=== PATIENT | female | born 1965 | race Caucasian/White ===

== ENCOUNTER → 2017-02-10 13:40 | Outpatient (CLI) | payer MEDICARE, SELFPAY ==
--- NOTE | 2017-02-10 13:53 | MM_ITS ---
MM DIG MAMM DX UNILAT RT CAD COMPARISON: 01/22/2017 INDICATION: Follow-up abnormal mammogram ORDERING PHYSICIAN: Linh Doty PATIENT AGE: 51 years TECHNIQUE: Spot compression views, rolled views, and straight ML view FINDINGS: Average fibroglandular tissue. Previously noted opacity in the central aspect of the left breast did appear to compress out as fibroglandular tissue and was not identified on the ML view. There was a small area of asymmetric density in the medial and deep aspect of the right breast which was not reproducible on the rolled views and is felt to be due to overlying fibroglandular tissue. No malignant appearing mass or malignant appearing microcalcification IMPRESSION: Benign findings, no evidence of malignancy BI-RADS Category: 2 Benign Finding(s) RECOMMENDED FOLLOW-UP: 1YR - 1 YEAR FOLLOW-UP (A letter has been sent to the patient regarding results of the study.)
== END ==
PROVIDERS: Visit Provider Family Medicine
DX: R92.8 Other abnormal and inconclusive findings on diagnostic imaging of breast (principal)
CPT/HCPCS: 77065

== ENCOUNTER 2017-03-18 14:36 | Outpatient (RCR) | payer MEDICARE, SELFPAY | END 2017-03-18 14:37 | disposition home or self-care (01) | LOC: PT 14:36 | PROVIDERS: Visit Provider Family Medicine | DX: M54.5 Low back pain (principal); M25.562 Pain in left knee; M25.561 Pain in right knee | CPT/HCPCS: 97010; 97035 ==

== ENCOUNTER → 2017-03-26 13:45 | Outpatient (CLI) | payer MEDICARE, SELFPAY ==
--- NOTE | 2017-03-26 13:52 | XR_ITS ---
EXAM: XR lumbar spine min 4V HISTORY: ITS.REASON: LOW BACK PAIN , RADIATING DOWN LEFT LEG ORDERING PHYSICIAN: Linh Doty PATIENT AGE: 51 years COMPARISON: None FINDINGS: Mild thoracolumbar curvature convex right with mild degenerative disc disease L1-L2 and L5-S1 with mild facet hypertrophic changes at L4-5 and L5-S1. No fracture or dislocation. No lytic or blastic. SI joints have an unremarkable appearance. There is a distal abdominal aortic stent. IMPRESSION: Mild lumbar spondylosis with scoliosis and degenerative disc disease and facet arthritic change.
== END ==
PROVIDERS: PCP Family Medicine; Visit Provider Family Medicine
DX: M54.5 Low back pain (principal)
CPT/HCPCS: 72110

== ENCOUNTER → 2018-01-20 08:54 | Outpatient (CLI) | payer MEDICARE, SELFPAY ==
[2018-01-20 10:01] LABS: Alanine Aminotransferase 22 U/L (12-78); Albumin/Globulin Ratio 1.1 (1.1-1.8); Alkaline Phosphatase 140 U/L (46-116); Anion Gap 11.9 mEq/L (5-15); Aspartate Amino Transferase 15 U/L (15-37); Bilirubin,Total 0.3 mg/dL (0.2-1.0); Blood Urea Nitrogen 13 mg/dL (7-18); Calcium 9.8 mg/dL (8.5-10.1); Carbon Dioxide 32 mmol/L (21.0-32.0); Chloride 101 mmol/L (98-107); Chol/HDL Ratio 4.2 (1-3.5); Cholesterol 146 mg/dL (140-200); Creatinine,Serum 0.84 mg/dL (0.55-1.02); Estimated Glomerular Filt Rate 71 ml/min (>60); GFR (African American) 86 ML/MIN (>60); Globulin 3.6 gm/dl (1.3-3.2); Glucose 107 mg/dL (74-106); HDL Cholesterol 35 mg/dL (29-89); LDL Cholesterol 75 mg/dL (0-130); Potassium 4.9 mmoL/L (3.5-5.1); Sodium 140 mmol/L (136-145); Total Protein,Serum 7.6 gm/dL (6.4-8.2); Triglycerides 181 mg/dL (30-200); VLDL Cholesterol 36 mg/dL (0-40)
== END ==
PROVIDERS: Visit Provider Physician Assistant Medical
DX: E78.49 Other hyperlipidemia (principal); I10 Essential (primary) hypertension; T46.6X1A Poisoning by antihyperlipidemic and antiarteriosclerotic drugs, accidental (unintentional), initial encounter
CPT/HCPCS: 36415; 80053; 80061

== ENCOUNTER → 2018-02-01 09:18 | Outpatient (CLI) | payer MEDICARE, SELFPAY ==
--- NOTE | 2018-02-01 08:30 | MM_ITS ---
MM Dig screening mamm BI w/CAD CAD Screening COMPARISON: Digital mammograms with CAD 01/22/2017 and 11/20/2015 INDICATION: There is a history of breast cancer in patient's maternal great aunt. TECHNIQUE: Standard CC and MLO images were obtained. R2 CAD reviewed. FINDINGS: Mild scattered fibro glandular densities are seen in both breast on a background of fatty breast parenchyma. There is no suspicious lesion in either breast and there are no suspicious microcalcifications. Again noted is the metallic device likely cardiac pacemaker or defibrillator projecting over the axillary tail left breast. IMPRESSION: Stable exam no suspicious lesion seen recommend yearly follow-up BI-RADS Category: 2 Benign Finding(s) RECOMMENDED FOLLOW-UP: 1YR - 1 YEAR FOLLOW-UP (A letter has been sent to the patient regarding results of the study.)
== END ==
PROVIDERS: PCP Family Medicine; Visit Provider Family Medicine
DX: Z12.31 Encounter for screening mammogram for malignant neoplasm of breast (principal)
CPT/HCPCS: 77067

== ENCOUNTER → 2018-05-26 09:21 | Outpatient (CLI) | payer MEDICARE, SELFPAY ==
--- NOTE | 2018-05-26 09:31 | US_ITS ---
US thyroid HISTORY: Follow-up thyroid nodules ITS.REASON: THYROMEGLY ORDERING PHYSICIAN: Linh Doty PATIENT AGE: 52 years Comparison: 01/22/2017 FINDINGS: The right lobe is 4.4 x 1.7 x 1.3 cm. Left lobe is 4.3 x 1.7 x 1.4 cm. The isthmus is slightly thickened centrally and on the right at 5 mm. Multiple nodules are present on the right including isoechoic 5 mm nodule upper pole, 3 mm isoechoic nodule upper pole, 3 mm isoechoic nodule upper pole, 6 mm isoechoic nodule lower pole,, mixed 7mm nodule lower pole, 3 mm hypoechoic nodule lower pole. The mixed 7 mm nodule in the lower pole has developed since the previous exam On the left there is a 9 mm cyst in the upper pole and a mixed 5 mm nodule in the mid polar region unchanged. IMPRESSION: Thyroid gland upper limits of normal in size with bilateral nodules. A new 7 mm mixed nodules present in the lower pole on the right. Recommend 6 month follow-up to confirm stability
== END ==
PROVIDERS: PCP Family Medicine; Visit Provider Family Medicine
DX: E01.0 Iodine-deficiency related diffuse (endemic) goiter (principal)
CPT/HCPCS: 76536

== ENCOUNTER → 2018-06-09 20:09 | Outpatient (CLI) | payer MEDICARE, SELFPAY ==
[2018-06-09 21:49] LABS: Amphetamine/Metha Screen,Urine Negative ng/mL (<1000); Barbiturates Screen,Urine Negative ng/mL (<200); Benzodiazepines Screen,Urine Negative ng/mL (<200); Cannabinoid Screen,Urine Negative ng/mL (<50); Cocaine Screen,Urine Negative ng/mL (<300); Methadone Screen,Urine Negative ng/mL (<300); Opiate Screen,Urine Positive ng/mL (<300); Phencyclidine Screen,Urine Negative ng/mL (<25)
[2018-06-16 13:53] LABS: Gabapentin,Urine 206.8 ug/mL (.)
== END ==
PROVIDERS: Visit Provider Family Medicine
DX: M54.5 Low back pain (principal)
CPT/HCPCS: 80305; 80307

== ENCOUNTER → 2018-06-29 11:15 | Outpatient (POV) | payer MEDICARE, SELFPAY | PROVIDERS: Visit Provider Otolaryngology | DX: Z00.00 Encounter for general adult medical examination without abnormal findings (principal) ==

== ENCOUNTER → 2018-07-30 12:46 | Outpatient (CLI) | payer MEDICARE, SELFPAY ==
--- NOTE | 2018-07-30 12:51 | XR_ITS ---
XR knee LT 4V Ordering Physician: Linh Doty Patient Age: 53 years: Female HISTORY: ITS.REASON: KNEE PAIN . Technique: Weightbearing AP, lateral and Cardenas views were performed as well as oblique. Findings: . No acute finding. The joint spaces well-maintained. Medial and lateral compartment appear satisfactory. Bones well mineralized. No erosion nor. No osteochondral defect. No joint effusion patellofemoral relationships appear normal Impression: Left knee intact. . No significant appearing findings.
== END ==
PROVIDERS: PCP Family Medicine; Visit Provider Family Medicine
DX: M25.562 Pain in left knee (principal)
CPT/HCPCS: 73564

== ENCOUNTER 2018-09-17 15:00 | Outpatient (RCR) | payer MEDICARE, SELFPAY | END 2018-09-17 15:05 | disposition home or self-care (01) | LOC: PT 15:00 | PROVIDERS: PCP Family Medicine; Visit Provider Family Medicine | DX: M25.562 Pain in left knee (principal) | CPT/HCPCS: 97010; 97033; 97035; 97110; 97163 ==

== ENCOUNTER → 2018-10-15 12:50 | Outpatient (CLI) | payer MEDICARE, SELFPAY ==
--- NOTE | 2018-10-15 12:52 | CT_ITS ---
PROCEDURE: CT KNEE LT WO CON CLINICAL HISTORY: LT KNEE PAIN Left knee pain, claudication COMPARISON: from 07/30/2018 TECHNIQUE: Axial images obtained with sagittal and coronal reformats. All CT scans at the facility use one or more dose reduction, viz: automated exposure control, ma/kV adjustment per patient size (including targeted exams where dose is matched to indication, i.e. head), or iterative reconstruction technique. FINDINGS: Normal mineralization. No fracture or dislocation. No lytic or blastic change. There is slight decrease in the joint space medially suggesting mild osteoarthritic change. No large effusion evident. There is a faint calcific density posterior to the lateral femoral condyle. This is nonspecific and a question clinical significance. IMPRESSION: No acute finding. Minimal osteoarthritic changes medial compartment Dictated by: Ever Wright MD 10/16/2018 10:27 Electronically signed by Ever Wright MD in [place] 10/16/2018 10:27
--- NOTE | 2018-10-15 12:53 | CT_ITS ---
Procedure: CT ANGIO LE BI CLINICAL HISTORY: PVD/ PAD, LEG PAIN, CLAUDICATION Left leg pain, claudication COMPARISON: No exams were available for comparison TECHNIQUE: IV Contrast: 120 mL Optiray 350 Axial images obtained with sagittal and coronal reformats. All CT scans at the facility use one or more dose reduction, viz: automated exposure control, ma/kV adjustment per patient size (including targeted exams where dose is matched to indication, i.e. head), or iterative reconstruction technique. FINDINGS: Abdominal aorta: Mild atheromatous changes. There is a stent within the distal abdominal aorta. The stent is patent with only mild stenosis. The stent begins 2 cm below the level of the renal arteries and extends to the aortic bifurcation. Mild atheromatous changes are present within the distal aspect of the stent. There is an area of stenosis involving the ostium and proximal aspect of the right common iliac artery. This is greater than 50 percent estimated at approximately 70 percent and short segment. The superior mesenteric artery and celiac artery have an unremarkable appearance. The renal arteries also have an unremarkable appearance. There are 2 right renal arteries is and 1 left renal artery which bifurcates early. The external iliac arteries have an unremarkable appearance. Right lower extremity runoff: Surgical clips are present in the right inguinal region. Common femoral and superficial femoral artery has an unremarkable appearance as does the popliteal. Trifurcation vessels have an unremarkable appearance with 3 vessel runoff to the right lower extremity. Left common femoral and femoral arteries, popliteal, and runoff vessels are unremarkable with with three-vessel runoff to the left ankle. The IMPRESSION: 1. 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 2. Abdominal aortic stent present distally without significant stenosis 3. Unremarkable bilateral lower extremity runoff Dictated by: Ever Wright MD 10/16/2018 10:23 Electronically signed by Ever Wright MD in [place] 10/16/2018 10:23
== END ==
PROVIDERS: PCP Family Medicine; Visit Provider Family Medicine
DX: M25.562 Pain in left knee (principal); I70.213 Atherosclerosis of native arteries of extremities with intermittent claudication, bilateral legs; Z95.0 Presence of cardiac pacemaker
CPT/HCPCS: 73700; 73701; Q9967

== ENCOUNTER → 2019-02-03 10:41 | Outpatient (CLI) | payer MEDICARE, SELFPAY ==
--- NOTE | 2019-02-03 10:43 | MM_ITS ---
PROCEDURE: MM DIG SCREENING MAMM BI W/CAD Patient Age:53Y CLINICAL INDICATION: SCREENING 53-year-old postmenopausal female. No hormones, no new complaints. Family history. Maternal aunt with breast cancer COMPARISON: DIGMAMMS MAMMOGRAM SCREEN-SHANK CUTTER N/C from 01/06/2007 [facility] DIGITAL MAMM-SCREEN BILATERAL from 07/02/2012 [facility] DIG MAMM-SCREEN KAREL from 05/12/2014 [facility] DIG MAMM-DX UNI ADD VIEWS-LT from 05/30/2014 [facility] DIG MAMM-SCREEN KAREL from 11/20/2015 [facility] DIG MAMM-SCREEN KAREL W/CAD from 01/22/2017 DX[facility] MM Dig mamm DX unilat RT CAD from 02/10/2017 [facility] MM Dig screening mamm BI w/CAD from 02/01/2018 TECHNIQUE: Standard CC and MLO images were obtained. R2 CAD reviewed. FINDINGS: Mild residual fibroglandular elements; fairly low-density breast with stable architecture compared to previous studies. No new dominant nor suspicious mass. No suspicious calcifications. Right breast: No new findings Left breast. No new findings Scant asymmetry appears stable stable cc appearance since at least 2017 Again pacer device projected over the deep axillary left breast Bilateral follow-up 1 year recommended IMPRESSION: . Stable mammogram. No significant new findings. Bilateral follow-up 1 year. BI-RAD Category: 2 Benign Finding(s) FOLLOW-UP: 1YR 1 Year Follow-up (A letter has been sent to the patient regarding results of the study.) Dictated by: Joe Martinez MD 02/08/2019 09:24 Electronically signed by Joe Martinez MD in [place] 02/08/2019 09:24
== END ==
PROVIDERS: PCP Family Medicine; Visit Provider Family Medicine
DX: Z12.31 Encounter for screening mammogram for malignant neoplasm of breast (principal)
CPT/HCPCS: 77067

== ENCOUNTER → 2020-02-16 16:04 | Outpatient (CLI) | payer MEDICARE, SELFPAY ==
--- NOTE | 2020-02-16 16:12 | XR_ITS ---
PROCEDURE: XR THORACIC SPINE 3V CLINICAL INDICATION: MID AND LOWER BACK PAIN COMPARISON: No exams were available for comparison FINDINGS: No fracture or dislocation. No lytic or blastic change. There is normal mineralization. There are mild degenerative changes in the thoracic spine with minimal lower thoracic curvature convex left and mild multilevel thoracic spondylosis. Other findings:None. IMPRESSION: Mild degenerative changes, no acute finding Dictated by: Ever Wright MD 02/16/2020 16:37 Ever Wright MD in [place] 02/16/2020 16:37
--- NOTE | 2020-02-16 16:13 | XR_ITS ---
PROCEDURE: XR KUB CLINICAL INDICATION: ABD PAIN COMPARISON: CT ABDPELW/O CT ABD PELVIS W/O CONTRAST from 03/10/2014 FINDINGS: The bowel gas pattern is nonspecific. Nondistended gas-filled loops of small and large bowel are present. No evidence of intestinal obstruction, abnormal calcifications, or acute bony anomalies. There is a vascular stent overlying the lower aorta and the right iliac artery. Surgical clips are present in the right inguinal region. There is an RV pacemaker present IMPRESSION: No acute findings. Dictated by: Ever Wright MD 02/16/2020 16:35 Ever Wright MD in [place] 02/16/2020 16:35
== END ==
PROVIDERS: PCP Family Medicine; Visit Provider Family Medicine
DX: M54.6 Pain in thoracic spine (principal); M54.5 Low back pain; R10.9 Unspecified abdominal pain
CPT/HCPCS: 72072; 74018

== ENCOUNTER → 2020-02-17 15:12 | Outpatient (CLI) | payer MEDICARE, SELFPAY ==
[2020-02-17 15:24] LABS: Microscopic, Urine URINE MICROSCOPIC (MICROSCOPIC)
[2020-02-17 16:14] LABS: Appearance,Urine CLEAR (Clear); Bilirubin,Urine Negative (Negative); Blood, Urine Negative (Negative); Color,Urine YELLOW (Yellow); Glucose,Urine (UA) Negative (Negative); Ketones,Urine Negative (Negative); Leukocyte Esterase,Urine Negative (Negative); Nitrate,Urine Negative (Negative); Protein,Urine Negative (Negative); Urobilinogen,Urine 0.2 EU/dl (0.2)
[2020-02-17 16:27] LABS: Bacteria,Urine 1+ /lpf; Mucus,Urine 2+ /lpf
== END ==
PROVIDERS: Visit Provider Family Medicine
DX: R10.9 Unspecified abdominal pain (principal); M54.5 Low back pain
CPT/HCPCS: 81001; 87086

== ENCOUNTER → 2021-03-27 15:49 | Outpatient (CLI) | payer MEDICARE, SELFPAY ==
--- NOTE | 2021-03-27 15:57 | XR_ITS ---
FINAL REPORT CLINICAL HISTORY: OSTEOARTHRITIS OF BOTH KNEES, UNSPECIFIED TYPE FINDINGS: RIGHT KNEE Three views demonstrate no acute fracture or dislocation. The joint spaces appear normal. No joint effusion is identified. The visualized bony structures are well aligned. No soft tissue abnormality is seen. IMPRESSION: No acute process. Reviewed, Interpreted and Dictated by Saurabh Oliver III, MD Transcribed by Lola West Authenticated by Saurabh Oliver III, MD on 03/27/2021 04:54:[address] [facility]
--- NOTE | 2021-03-27 15:57 | XR_ITS ---
FINAL REPORT CLINICAL HISTORY: OSTEOARTHRITIS OF BOTH KNEES, UNSPECIFIED TYPE FINDINGS: LEFT KNEE Three views demonstrate no acute fracture or dislocation. The joint spaces appear normal. No joint effusion is identified. The visualized bony structures are well aligned. No soft tissue abnormality is seen. IMPRESSION: No acute process. Reviewed, Interpreted and Dictated by Saurabh Oliver III, MD Transcribed by Lola West Authenticated by Saurabh Oliver III, MD on 03/27/2021 04:54:31 PM [facility]
== END ==
PROVIDERS: PCP Family Medicine; Visit Provider Physical Medicine & Rehabilitation
DX: M17.0 Bilateral primary osteoarthritis of knee (principal)
CPT/HCPCS: 73562

== ENCOUNTER → 2021-12-06 17:03 | Outpatient (CLI) | payer MEDICARE, SELFPAY ==
--- NOTE | 2021-12-06 17:12 | XR_ITS ---
PROCEDURE INFORMATION: Exam: XR Right Shoulder Exam date and time: 12/06/2021 5:17 PM Age: 56 years old Clinical indication: Patient HX: Right shoulder pain, no known injury TECHNIQUE: Imaging protocol: Radiologic exam of the Right shoulder. Views: 2 or more views. COMPARISON: No relevant prior studies available. FINDINGS: Tubes, catheters and devices: Right subclavian AICD/cardioverter-defibrillator device noted. Bones/joints: Unremarkable. No acute fracture or dislocation. No significant arthritic deformities at the glenohumeral joint or acromioclavicular joint. There are no lytic skeletal lesions seen. No acute fractures are seen in the visualized right ribs. Lungs: No acute findings in the visualized right lung. Soft tissues: No radiopaque foreign bodies. No pathologic soft tissue calcification. IMPRESSION: 1. No acute findings. 2. Non emergency and chronic findings as above.
== END ==
PROVIDERS: PCP Family Medicine; Visit Provider Family Medicine
DX: M25.511 Pain in right shoulder (principal)
CPT/HCPCS: 73030

== ENCOUNTER 2023-05-29 17:40 | Inpatient (IN) | payer MEDICARE, SELFPAY ==
[2023-05-29] VITALS (27 sets, daily range): BP systolic 93–175; BP diastolic 70–99; PULSE 75–92; RESP 12–28; TEMP 34.8–37.1; O2SAT 90–100; BMI 32.0
--- NOTE | 2023-05-29 17:42 | XR_ITS ---
PROCEDURE INFORMATION: Exam: XR Chest Exam date and time: 05/29/2023 5:41 PM Age: 57 years old Clinical indication: Device placement; Ett placement (vent status); Additional info: Unresponsive. Et tube placement TECHNIQUE: Imaging protocol: Radiologic exam of the chest. Views: 1 view. COMPARISON: CR XR SHOULDER RT MIN 2V 12/06/2021 5:17 PM FINDINGS: Tubes, catheters and devices: There is an endotracheal tube in place, tip projects over the mid trachea. There is an enteric tube in place, tip projects below the diaphragm and off the level of the study. Right chest implanted cardiac device. Extensive apparatus is present over the chest wall which limits study. Lungs: No evidence of acute pulmonary disease or infiltrates Pleural spaces: Suspect small to moderate right pleural effusion. Heart/Mediastinum: There is mild cardiomegaly. Bones/joints: No evidence of acute osseous abnormalities within the visualized portions of the thoracic spine and ribs. Osseous structures appear appropriate for patient age. IMPRESSION: Suspect small moderate right pleural effusion. Support apparatus as above.
--- NOTE | 2023-05-29 17:45 | PC.NURSE ---
pt arrived via [facility]. mphilpot, t harry, a ever, g , s xochitl, l marcie, hemanth ramos at bedside pt arrived with oropharyngeal in place via em[facility]. 1748 etomadate given 40mg/20ml. pts IV infiltrated, so another 20mg/ml pulled and given to pt in other iv access site 174 succinylcholine given 150mg. 1753 pt intubated, 65 @ lip 1759 propofol drip started for sedation
--- NOTE | 2023-05-29 18:01 | PC.NURSE ---
radiology and lab at bedside.
--- NOTE | 2023-05-29 18:10 | CT_ITS ---
PROCEDURE INFORMATION: Exam: CT Thoracic Spine Without Contrast Exam date and time: 05/29/2023 8:22 PM Age: 57 years old Clinical indication: Injury or trauma; Additional info: Trauma, critical injury suspected TECHNIQUE: Imaging protocol: Computed tomography of the thoracic spine without contrast. Radiation optimization: All CT scans at this facility use at least one of these dose optimization techniques: automated exposure control; mA and/or kV adjustment per patient size (includes targeted exams where dose is matched to clinical indication); or iterative reconstruction. COMPARISON: CR XR THORACIC SPINE 3V 02/16/2020 4:14 PM FINDINGS: Bones/joints: There is right convexity the midthoracic spine. No anterior wedging deformity. No acute lucent fracture lines visualized. Mild spinal degenerative changes. Spinal cord: No severe central canal or neural foraminal stenosis demonstrated by CT. Soft tissues: Unremarkable. IMPRESSION: No acute thoracic spinal injury demonstrated by CT.
--- NOTE | 2023-05-29 18:10 | CT_ITS ---
PROCEDURE INFORMATION: Exam: CTA Chest With Contrast Exam date and time: 05/29/2023 8:32 PM Age: 57 years old Clinical indication: Injury or trauma; Additional info: Trauma, critical injury suspected TECHNIQUE: Imaging protocol: Computed tomographic angiography of the chest with contrast. Exam focused on the arteries. 3D rendering (Not supervised by radiologist): MIP and/or 3D reconstructed images were created by the technologist. Radiation optimization: All CT scans at this facility use at least one of these dose optimization techniques: automated exposure control; mA and/or kV adjustment per patient size (includes targeted exams where dose is matched to clinical indication); or iterative reconstruction. Contrast material: ISOVUE; Contrast volume: 100 ml; Contrast route: INTRAVENOUS (IV); COMPARISON: CR XR CHEST PORTABLE 05/29/2023 5:41 PM FINDINGS: Tubes, catheters and devices: Cardiac pacemaker. Enteric catheter extends into the stomach. ET tube is in the trachea above the terrence. Pulmonary arteries: No pulmonary embolism identified. Aorta: No thoracic aortic aneurysm identified. No aortic dissection. Lungs: Atelectasis is seen in the lower lobes bilaterally, much greater right. Pneumonitis is not excluded. Pleural spaces: No pneumothorax. There is a large right pleural effusion. Heart: Cardiomegaly. There is an anterior pericardial effusion measuring up to 13 mm. Coronary arterial calcifications are noted. Lymph nodes: Prominent mediastinal and hilar lymph nodes, nonspecific. AP window nodes measure to 19 mm in the short axis. Bones/joints: No acute fracture is identified. Soft tissues: Unremarkable. IMPRESSION: 1. No acute chest injury identified. 2. Large right pleural effusion. 3. Atelectasis in the lower lobes bilaterally, much greater on the right. Pneumonitis is not excluded. 4. Mediastinal and right hilar lymphadenopathy, nonspecific. 5. Cardiomegaly, with anterior pericardial. 6. No pulmonary embolism identified.
--- NOTE | 2023-05-29 18:10 | CT_ITS ---
PROCEDURE INFORMATION: Exam: CTA Neck With Contrast Exam date and time: 05/29/2023 8:27 PM Age: 57 years old Clinical indication: Injury or trauma; Additional info: Trauma, critical injury suspected TECHNIQUE: Imaging protocol: Computed tomographic angiography of the neck with contrast. Exam focused on the cervical segments of the vasculature. 3D rendering (Not supervised by radiologist): MIP and/or 3D reconstructed images were created by the technologist. Radiation optimization: All CT scans at this facility use at least one of these dose optimization techniques: automated exposure control; mA and/or kV adjustment per patient size (includes targeted exams where dose is matched to clinical indication); or iterative reconstruction. Contrast material: ISOVUE; Contrast volume: 100 ml; Contrast route: INTRAVENOUS (IV); COMPARISON: CT CERVICAL SPINE WO CON 05/29/2023 8:21 PM FINDINGS: Tubes, catheters and devices: Endotracheal tube tip 5 cm above the terrence. Orogastric tube extends off the lower edge of the scan in the esophagus. Right jugular and right subclavian lines in place without gross complication, extending off the lower edge of the scan in the SVC. Right common carotid artery: Normal. No stenosis. No dissection or occlusion. Right internal carotid artery: Mild tortuosity. No stenosis. No dissection or occlusion. Right external carotid artery: Normal. No stenosis. No dissection or occlusion. Left common carotid artery: Normal. No stenosis. No dissection or occlusion. Left internal carotid artery: Mild-moderate tortuosity. No stenosis. No dissection or occlusion. Left external carotid artery: Normal. No stenosis. No dissection or occlusion. Right vertebral artery: Mild V2 segment tortuosity. No stenosis. No dissection or occlusion. Left vertebral artery: Left vertebral artery is mildly dominant. No stenosis. No dissection or occlusion. Brachiocephalic artery: The brachiocephalic artery demonstrates mild calcific plaque without stenosis. Right subclavian artery: The right subclavian artery demonstrates mild calcific plaque without stenosis. Left subclavian artery: The left subclavian artery demonstrates mild calcific plaque without stenosis. Aorta: The visualized aortic arch demonstrates mild ectasia and calcific plaque without evidence of dissection or gross aneurysm. Pulmonary arteries: Mild dilatation of the central pulmonary arteries suggesting pulmonary arterial hypertension. Thyroid: The thyroid gland is unremarkable. Soft tissues: No significant soft tissue swelling or hematoma. Bones/joints: No acute osseous abnormalities are identified. Lungs: Mild centrilobular emphysematous changes in the upper lung isaacs. Bilateral bronchial wall thickening suggesting an element of bronchitis or bronchial edema. Pleural spaces: Moderate right and small left dependent layering simple pleural effusions. IMPRESSION: 1. No evidence of arterial occlusion, significant stenosis, dissection, or aneurysm/pseudoaneurysm. No acute vascular injuries are evident. 2. Moderate right and small left pleural effusions. 3. Additional nonemergent findings detailed above. REFERENCES: NASCET CRITERIA. The degree of stenosis in the cervical segment of the internal carotid artery is based on NASCET criteria. Normal is no stenosis. Mild is less than 50% stenosis. Moderate is 50-69% stenosis. Severe is 70% to 99% stenosis. Total occlusion is no detectable patent lumen.
--- NOTE | 2023-05-29 18:10 | CT_ITS ---
PROCEDURE INFORMATION: Exam: CTA Head With Contrast, Arteriography Exam date and time: 05/29/2023 8:27 PM Age: 57 years old Clinical indication: Injury or trauma; Additional info: Trauma, critical injury suspected TECHNIQUE: Imaging protocol: Computed tomographic angiography of the head with contrast. Exam focused on the arteries. 3D rendering (Not supervised by radiologist): MIP and/or 3D reconstructed images were created by the technologist. Radiation optimization: All CT scans at this facility use at least one of these dose optimization techniques: automated exposure control; mA and/or kV adjustment per patient size (includes targeted exams where dose is matched to clinical indication); or iterative reconstruction. Contrast material: ISOVUE; Contrast volume: 100 ml; Contrast route: INTRAVENOUS (IV); COMPARISON: CT HEAD/BRAIN WO CON 05/29/2023 8:11 PM FINDINGS: ANTERIOR CIRCULATION: Right internal carotid artery: The right ICA petrous segment is unremarkable. Right ICA cavernous segment is unremarkable. The right ICA supraclinoid segment is unremarkable. Right middle cerebral artery: Unremarkable. No occlusion or significant stenosis. No aneurysm. Right anterior cerebral artery: Unremarkable. No occlusion or significant stenosis. No aneurysm. The anterior communicating artery is unremarkable. Left internal carotid artery: The left ICA petrous segment is unremarkable. Left ICA cavernous segment is unremarkable. The left ICA supraclinoid segment is unremarkable. Left middle cerebral artery: Unremarkable. No occlusion or significant stenosis. No aneurysm. Left anterior cerebral artery: Unremarkable. No occlusion or significant stenosis. No aneurysm. POSTERIOR CIRCULATION: Right vertebral artery: Unremarkable. No occlusion or significant stenosis. No aneurysm. Left vertebral artery: Unremarkable. No occlusion or significant stenosis. No aneurysm. Basilar artery: Unremarkable. No occlusion or significant stenosis. No aneurysm. Right posterior cerebral artery: Normal variant persistent origin with hypoplastic right P1 segment. No occlusion or significant stenosis. No aneurysm. Left posterior cerebral artery: Small to moderate sized left posterior communicating artery present. No occlusion or significant stenosis. No aneurysm. Superior sagittal sinus: The dural venous sinuses and major cortical veins enhance appropriately without evidence of thrombosis. Brain: No enhancing brain lesions or vascular malformations are identified. Cerebral ventricles: Mild compensatory ventriculomegaly secondary to central atrophy. Bones/joints: Unremarkable. No acute fracture. Soft tissues: Incidental iatrogenic intravenous air in the rightward face felt to be related to venous access. IMPRESSION: 1. No evidence of large vessel occlusion or significant stenosis. No evidence of arterial dissection or aneurysm/pseudoaneurysm. No acute vascular injuries. 2. No acute intracranial process is evident.
--- NOTE | 2023-05-29 18:10 | CT_ITS ---
PROCEDURE INFORMATION: Exam: CT Lumbar Spine Without Contrast Exam date and time: 05/29/2023 8:25 PM Age: 57 years old Clinical indication: Other: Unresponsive; Additional info: Trauma, critical injury suspected TECHNIQUE: Imaging protocol: Computed tomography of the lumbar spine without contrast. Radiation optimization: All CT scans at this facility use at least one of these dose optimization techniques: automated exposure control; mA and/or kV adjustment per patient size (includes targeted exams where dose is matched to clinical indication); or iterative reconstruction. COMPARISON: CR [id number] XR lumbar spine min 4V 03/26/2017 2:06 PM FINDINGS: Bones/joints: No anterior wedging deformity. No acute lucent fracture lines visualized. There is left convexity of the lower lumbar spine. 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 Correlate with the anatomic location of pain. Lower lumbar facet arthropathy. Spinal cord: No severe central canal or neural foraminal stenosis demonstrated by CT. Soft tissues: Unremarkable. 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 Correlate with the anatomic location of pain.
--- NOTE | 2023-05-29 18:10 | CT_ITS ---
PROCEDURE INFORMATION: Exam: CT Head Without Contrast Exam date and time: 05/29/2023 8:11 PM Age: 57 years old Clinical indication: Other: Non responsive; Additional info: Trauma, critical injury suspected TECHNIQUE: Imaging protocol: Computed tomography of the head without contrast. Radiation optimization: All CT scans at this facility use at least one of these dose optimization techniques: automated exposure control; mA and/or kV adjustment per patient size (includes targeted exams where dose is matched to clinical indication); or iterative reconstruction. COMPARISON: No relevant prior studies available. FINDINGS: Brain: Mild generalized cerebral/cerebellar atrophy. Mild bilateral white matter hypodensities which are nonspecific but most commonly associated with chronic microvascular ischemia in this age group. The IACs are grossly normal. No extra-axial fluid collections. No evidence of acute intracranial hemorrhage. Cerebral/cerebellar corona-white matter differentiation is well maintained. No CT evidence of large territory acute or subacute intracranial ischemia/infarct. No intracranial mass lesions. No midline shift or herniation. Cerebral ventricles: Slight compensatory ventriculomegaly secondary to central atrophy. Pituitary gland and sella: Partially empty sella configuration incidentally noted. Paranasal sinuses: Visualized paranasal sinuses are clear. Mastoid air cells: Visualized mastoid air cells are clear. Orbital cavities: No acute intraorbital findings. Bones/joints: The calvarium and visualized facial bones are intact. Soft tissues: The scalp and visualized soft tissues demonstrate no acute abnormality. Incidental iatrogenic intravenous air in the rightward face and salon leader space/infratemporal fossa, likely related to venous access. Vasculature: No asymmetric vascular hyperdensities suggestive of thrombosis are identified. Other findings: Exam limited by unconventional head positioning/rotation and unconventional reconstruction planes. IMPRESSION: 1. No acute intracranial process. No intracranial hemorrhage or mass effect. 2. Atrophy and microvascular changes consistent with age. 3. Technically limited exam.
--- NOTE | 2023-05-29 18:10 | CT_ITS ---
PROCEDURE INFORMATION: Exam: CTA Abdomen and Pelvis With Contrast Exam date and time: 05/29/2023 8:32 PM Age: 57 years old Clinical indication: Injury or trauma; Additional info: Trauma, critical injury suspected TECHNIQUE: Imaging protocol: Computed tomographic angiography of the abdomen and pelvis with contrast. Exam focused on the arteries. 3D rendering (Not supervised by radiologist): MIP and/or 3D reconstructed images were created by the technologist. Radiation optimization: All CT scans at this facility use at least one of these dose optimization techniques: automated exposure control; mA and/or kV adjustment per patient size (includes targeted exams where dose is matched to clinical indication); or iterative reconstruction. Contrast material: ISOUVE; Contrast volume: 100 ml; Contrast route: INTRAVENOUS (IV); COMPARISON: CR XR KUB 05/29/2023 5:56 PM FINDINGS: Tubes, catheters and devices: Enteric catheter is in the stomach. Aorta: There is no evidence of an abdominal aortic aneurysm. Distal aortic stent is patent. Celiac trunk and mesenteric arteries: Celiac trunk is patent. SMA is patent. Renal arteries: Renal arteries are patent bilaterally. Right iliac arteries: Right common iliac stent is occluded. Right internal and external iliac arteries fill via collateral flow. Left iliac arteries: No occlusion or significant stenosis. Other arteries: Atherosclerotic vascular disease is noted. Liver: Hepatomegaly. Lobular contour of the liver suggests cirrhosis. There are no focal liver lesions present. Gallbladder and bile ducts: The gallbladder is normal. Pancreas: The pancreas is normal. Spleen: Calcified granulomata are seen in the spleen. No splenomegaly. Adrenal glands: No adrenal mass identified. Kidneys and ureters: Simple appearing renal cortical cysts bilaterally. Stomach and bowel: The stomach is normal. No bowel obstruction. Appendix: No evidence of appendicitis. Intraperitoneal space: No free fluid. Moderate ascites, low-density. Lymph nodes: Prominent retroperitoneal lymph nodes, measuring up to 17 mm, are nonspecific. Urinary bladder: Weiss catheter in the bladder. The bladder is nondistended. Small amount of air in the bladder is likely due to instrumentation. Reproductive: The uterus is normal. Bones/joints: Degenerative changes. Soft tissues: Unremarkable. IMPRESSION: 1. No abdominal aortic aneurysm or dissection. Distal aortic stent is patent. 2. Right common iliac stent is occluded. Right internal and external iliac arteries fill via collateral flow. 3. No acute fracture or traumatic visceral injury identified in the abdomen or pelvis. 4. Hepatomegaly, with lobular contour of the liver suggesting cirrhosis. 5. Moderate ascites. 6. Prominent retroperitoneal lymph nodes, nonspecific.
--- NOTE | 2023-05-29 18:10 | CT_ITS ---
PROCEDURE INFORMATION: Exam: CT Cervical Spine Without Contrast Exam date and time: 05/29/2023 8:21 PM Age: 57 years old Clinical indication: Injury or trauma; Additional info: Trauma, critical injury suspected TECHNIQUE: Imaging protocol: Computed tomography of the cervical spine without contrast. Radiation optimization: All CT scans at this facility use at least one of these dose optimization techniques: automated exposure control; mA and/or kV adjustment per patient size (includes targeted exams where dose is matched to clinical indication); or iterative reconstruction. COMPARISON: CT HEAD/BRAIN WO CON 05/29/2023 8:11 PM FINDINGS: Tubes, catheters and devices: Endotracheal tube and orogastric tube in place. Right jugular and subclavian lines in place. Bones/joints: Craniocervical alignment is normal for the rotated positioning of the head. The occipital condyles are intact. The odontoid is intact. Mild osteoarthritic sclerosis and spurring at the atlantodens interval. No jumped or perched facets. Moderate left-sided osteoarthritic facet hypertrophy C4-C5. No fractures. Slight 2 mm degenerative anterolisthesis C4-C5. No blastic or lytic lesions. Moderate disc space narrowing and marginal spurring C5-C6 and C6-C7. Mild posterior marginal spurring C3-C4 and C2-C3. 3 mm posterior spondylotic protrusion C6-C7. Mild canal stenosis C6-C7. There is right foraminal stenosis which is moderate at C6-C7. There is left foraminal stenosis which is moderate-severe at C3-C4. Pleural spaces: Moderate right and small left dependent layering pleural effusions again noted. Thyroid: The visualized thyroid gland is unremarkable. Vasculature: Incidental iatrogenic venous air in the neck and rightward face related to venous access. Soft tissues: Paraspinous soft tissues are unremarkable without significant soft tissue swelling or soft tissue hematoma. Other findings: Exam limited by positioning/rotation. IMPRESSION: 1. No evidence of fracture or acute traumatic subluxation. 2. 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 3. Technically limited exam.
--- NOTE | 2023-05-29 18:12 | PC.NURSE ---
pt placed on bear hugger at this time.
--- NOTE | 2023-05-29 18:13 | XR_ITS ---
PROCEDURE INFORMATION: Exam: XR Abdomen Exam date and time: 05/29/2023 5:56 PM Age: 57 years old Clinical indication: Device placement; Gi device; Nasogastric tube; Additional info: Unresponsive. Post intubation TECHNIQUE: Imaging protocol: Radiologic exam of the abdomen. Views: Frontal supine view of the abdomen. 1 View. COMPARISON: CR XR KUB 02/16/2020 4:14 PM FINDINGS: Tubes, catheters and devices: Enteric tube in place, tip and side port project over the stomach. Heart/Mediastinum: Visualized portions of the heart, lungs, pleural spaces, and osseous structures are unchanged. Gastrointestinal tract: Stable bowel-gas pattern. Bones/joints: See Heart/Mediastinum finding. IMPRESSION: Radiographically appropriate position of enteric tube.
--- NOTE | 2023-05-29 18:21 | PC.NURSE ---
pt placed on vent per RT, current settings [id number], TV-420, R-18, Peep-5.
[2023-05-29 18:28] LABS: Microscopic, Urine URINE MICROSCOPIC (MICROSCOPIC)
--- NOTE | 2023-05-29 18:29 | PC.NURSE ---
[facility] contacted for medical records.
[2023-05-29] MEDS: HYDROCORTISONE SOD SUCCINATE 100MG VIAL 100 MG IV (18:32)
[2023-05-29] MEDS: FUROSEMIDE 40MG/4ML VIAL 80 MG IV (18:32)
[2023-05-29 18:37] LABS: Basophils % 0.2 % (0.1-2.0); Eosinophils % 0.1 % (0.1-12.0); Hematocrit 33.3 % (37.0-47.0); Hemoglobin 9.2 g/dL (12.2-16.2); Lymphocytes # 0.7 K/mm3 (0.7-4.5); Mean Corpuscular HGB Conc 27.7 g/dL (31.8-35.4); Mean Corpuscular Hemoglobin 29.9 pg (27.0-31.2); Mean Platelet Volume 12.2 fl (7.4-10.4); Monocytes # 0.2 K/mm3 (0.1-1.0); Monocytes % 2.9 % (1.7-9.3); Neutrophils # 4.2 K/mm3 (1.8-7.8); Neutrophils % 82.7 % (37.0-80.0); Platelet Count 57 K/mm3 (142-424); Red Blood Count 3.08 M/mm3 (4.20-5.40); Red Cell Distribution Width 19.5 % (11.5-17.5); White Blood Count 5.1 K/mm3 (4.8-10.8)
--- NOTE | 2023-05-29 18:40 | PC.NURSE ---
fely attempted to get two set of cultures, he was unsuccesful with second attempt. fely going to send someone else from lab to attempt blood cultures.
--- NOTE | 2023-05-29 18:42 | PC.NURSE ---
lab at attempting to draw blood for culture
[2023-05-29 18:43] LABS: Blood, Urine Negative (Negative); Glucose,Urine (UA) TRACE (Negative); Ketones,Urine 1+ (Negative); Leukocyte Esterase,Urine Negative (Negative); Nitrate,Urine POSITIVE (Negative); Protein,Urine 3+ (Negative); Specific Gravity, Urine >= 1.030 (1.005-1.030)
[2023-05-29] MEDS: ETOMIDATE 40MG/20ML VIAL 60 MG IV (18:47)
[2023-05-29 18:48] LABS: Bilirubin,Urine 3+ (Negative)
[2023-05-29] MEDS: propofoL 100 ML 5.40000000000000036 MG IV (18:48)
[2023-05-29] MEDS: SUCCINYLCHOLINE 20MG/ML 10 ML MDV 150 MG IV (18:48)
[2023-05-29 18:49] LABS: Appearance,Urine Slightly Cloudy (Clear); Color,Urine Amber (Yellow)
[2023-05-29] MEDS: IPRATROPIUM/ALBUTEROL 3 ML NEB 9 ML IH (18:55)
[2023-05-29 19:01] LABS: Bacteria,Urine 2+ /lpf; Squamous Epithelial Cell,Urine Occasional #/hpf (0-5); WBC,Urine Occasional #/hpf (0-3)
[2023-05-29 19:03] LABS: Chloride 106 mmol/L (98-107); Sodium 127 mmol/L (136-145)
[2023-05-29 19:05] LABS: Aspartate Amino Transferase 11 U/L (14-36); Blood Urea Nitrogen 8 mg/dl (7-17); Creatinine Clearance Estimated 436 mL/min (50-200); Estimated Glomerular Filt Rate 365 ml/min (>60); GFR (African American) 441 ML/MIN (>60)
[2023-05-29] MEDS: DEXTROSE 50% 50ML SYRINGE (CRASH CART) 50 ML IVP (19:05)
--- NOTE | 2023-05-29 19:05 | PC.NURSE ---
Family reports that patient is shaking upon assessment of patient she has some persistent, jerking like motions, with roving eyes, eyes remain reactive to light. Concern for seizure activity. Provider at bedside, orders received for 4mg ativan.
[2023-05-29 19:06] LABS: Alkaline Phosphatase 21 U/L (38-126); Bilirubin,Total 0.2 mg/dl (0.2-1.3); Calcium 5.7 mg/dl (8.4-10.2)
[2023-05-29 19:15] LABS: NT Pro Brain Natriuretic Pep. 2250 pg/mL (0-125)
--- NOTE | 2023-05-29 19:15 | PC.NURSE ---
Blood pressures systolics in 90s and 80s last two cycles, spoke with provider, plans to start norepinepherine. On reassessment SBP 119, will hold start of norepinephrine and continue to cycle blood pressures Q10 at this time.
[2023-05-29 19:17] LABS: Alanine Aminotransferase < 4 U/L (12-78); Albumin Level < 1.0 g/dl (3.5-5.0); Total Protein,Serum < 2.0 g/dl (6.3-8.2)
[2023-05-29] MEDS: LORazepam 2MG/ML VIAL 4 MG IV (19:18)
[2023-05-29 19:21] LABS: Carbon Dioxide 7 mmol/L (22.0-30.0); Glucose 22 mg/dl (74-100)
[2023-05-29 19:22] LABS: Lactic Acid 20.8 mmol/L (0.7-2.1); Troponin I < 0.01 ng/ml (0.00-0.034)
--- NOTE | 2023-05-29 19:53 | ED_ITS ---
Discharge Plan Disposition Chief Complaint: Shortness of Breath/Dyspnea Prescriptions Prescriptions: No Action carvedilol 6.25 mg tablet 6.25 mg PO DAILY 30 Days Qty: 60 Patient Comments: celecoxib 100 mg capsule 100 mg PO DAILY 30 Days Qty: 60 Patient Comments: lisinopril 10 mg tablet 10 mg PO ONCE atorvastatin 40 mg tablet 40 mg PO DAILY 30 Days Qty: 30 Patient Comments: lisinopril 5 mg tablet 5 mg PO ONCE gabapentin 100 mg capsule 100 mg PO QHS Discharge ED Provider: Dalton [facility] HPI General Chief complaint: Shortness of Breath/Dyspnea Stated complaint: CHF Time Seen by Provider: 05/29/23 18:01 Mode of Arrival: EMS Source of Information: EMS Limitations: Altered Mental Status Description of Symptoms (Recalled from ER Triage Doc. by RN): see above History of Present Illness HPI narrative: 57-year-old female history of reported hypertension, hyperlipidemia, CHF with AICD in place currently on Eliquis, diabetes presenting with altered mental status. Little is known about patient other than report from EMS. Patient was reportedly found down, minimally responsive. EMS was called. Patient hypoxemic in the 70s when EMS arrived. Placed on BiPAP, saturations improved to the 90s. Patient brought immediately to the emergency department. Patient acutely ill on arrival, no further information given. Please note that above description of symptoms, in this electronic medical record under categorization of recalled from ER triage doctor by RN are reflective of an initial nursing assessment, however, is not reflective of my full history and physical exam that was personally taken and clarified. Consequentially, this preceding description of symptoms, which may include the patient's categorized chief complaint in the EMR, do not reflect my personal clinical impression, and the ultimate description of history of present illness and patient stated complaints should be deferred to this section of the note. Unless stated otherwise or congruent with this section of the note, additional signs, symptoms, or incongruence should be interpreted as inaccurate with my clinical impression. Related Data Home Medications Medication Instructions Recorded Confirmed atorvastatin 40 mg tablet 40 mg PO DAILY Cholesterol 30 days 04/06/17 01/21/18 ##30 carvedilol 6.25 mg tablet 6.25 mg PO DAILY blood pressure 30 04/06/17 01/21/18 days ##60 celecoxib 100 mg capsule 100 mg PO DAILY Pain 30 days ##60 04/06/17 01/21/18 gabapentin 100 mg capsule 100 mg PO QHS Pain 04/06/17 01/21/18 lisinopril 10 mg tablet 10 mg PO ONCE blood pressure 04/06/17 01/21/18 lisinopril 5 mg tablet 5 mg PO ONCE blood pressure 04/06/17 01/21/18 Allergies Allergy/AdvReac Type Severity Reaction Status Date / Time No Known Allergies Allergy Verified 01/21/18 14:48 [facility] Disclaimer: The information contained in this section may have been updated after the patient was seen, as this information can be updated by other users. Social History Smoking Status: Unknown if ever smoked alcohol intake: never substance use type: denies use current occupational status: disabled Travel in the last 8 weeks: None caffeine: No ROS Obtained: Yes unobtainable due to mental status and Yes unobtainable due to endotracheal tube Physical Exam General General appearance: obtunded, obese and other (Cyanotic, unresponsive, BiPAP mask in place) Head Head exam: atraumatic and normocephalic Eye Eye exam: Present PERRL (Pupils 4 mm and reactive bilaterally. Roving eye movements right to left); Absent jaundice or conjunctival injection ENT ENT exam: Present mucous membranes dry and other (Mucus in oropharynx on laryngoscopy) Neck Neck exam: Present trachea midline and other (JVD present) Chest Chest inspection: Present symmetric chest wall rise (With BiPAP inspirations) Respiratory Respiratory exam: Present wheezes (Diffuse and bilateral. Minimal respiratory effort other than BiPAP backup rate) Cardiovascular Cardiovascular exam: Present regular rate and normal rhythm Abdominal Exam Abdominal exam: Present soft and distention Extremities Exam Extremities exam: Present edema (Bilateral lower extremity edema, left greater than right. Punctate lesion overlying left knee.) Neurological Exam Neurological exam: Present other (GCS 3 without any type of sedation) Skin Skin exam: Present dry, cyanosis and mottled; Absent warm (Cool, dry) Medical Decision Making Medical Records Medical records reviewed: Yes I reviewed the patient's medical records. Eran Inquiry Pt receiving controlled substance: No Eran was queried for this patient: No Vital Signs: 05/29/23 17:40 05/29/23 18:00 05/29/23 18:36 Temperature 94.7 F L 97.0 F L Temperature Source Rectal Core Pulse Rate 81 81 Pulse Rate [Right Radial] 92 H Respiratory Rate 28 H 18 18 Blood Pressure 102/77 L 114/86 Blood Pressure [Right Arm] 116/78 Blood Pressure Mean Blood Pressure Mean [Right Arm] 90 Blood Pressure Source Automatic Cuff Automatic Cuff Blood Pressure Source [Right Arm] Automatic Cuff Blood Pressure Position Supine Sitting Blood Pressure Position [Right Arm] Supine 02 Sat by Pulse Oximetry 90 L 95 100 Oxygen Delivery Method CPAP Ambu-Bag Mechanical Ventilation 05/29/23 18:56 05/29/23 18:56 05/29/23 18:56 Temperature Temperature Source Pulse Rate 79 79 Pulse Rate [Right Radial] Respiratory Rate 18 Blood Pressure Blood Pressure [Right Arm] Blood Pressure Mean Blood Pressure Mean [Right Arm] Blood Pressure Source Blood Pressure Source [Right Arm] Blood Pressure Position Blood Pressure Position [Right Arm] 02 Sat by Pulse Oximetry 100 Oxygen Delivery Method 05/29/23 19:00 05/29/23 19:15 05/29/23 19:16 Temperature 98.1 F 98.2 F 98.2 F Temperature Source Pulse Rate 80 81 80 Pulse Rate [Right Radial] Respiratory Rate 16 12 16 Blood Pressure 133/81 99/80 L 100/77 L Blood Pressure [Right Arm] Blood Pressure Mean Blood Pressure Mean [Right Arm] Blood Pressure Source Blood Pressure Source [Right Arm] Blood Pressure Position Blood Pressure Position [Right Arm] 02 Sat by Pulse Oximetry 100 96 99 Oxygen Delivery Method 05/29/23 19:17 05/29/23 19:18 05/29/23 19:20 Temperature 98.2 F 98.4 F 98.4 F Temperature Source Pulse Rate 80 79 Pulse Rate [Right Radial] Respiratory Rate 17 19 21 Blood Pressure 93/70 L 102/85 L 118/97 H Blood Pressure [Right Arm] Blood Pressure Mean Blood Pressure Mean [Right Arm] Blood Pressure Source Blood Pressure Source [Right Arm] Blood Pressure Position Blood Pressure Position [Right Arm] 02 Sat by Pulse Oximetry 100 100 Oxygen Delivery Method 05/29/23 19:40 05/29/23 19:51 05/29/23 20:00 Temperature 98.6 F 98.6 F 98.6 F Temperature Source Pulse Rate 81 86 84 Pulse Rate [Right Radial] Respiratory Rate 19 18 20 Blood Pressure 128/95 H 166/97 H 175/99 H Blood Pressure [Right Arm] Blood Pressure Mean Blood Pressure Mean [Right Arm] Blood Pressure Source Blood Pressure Source [Right Arm] Blood Pressure Position Blood Pressure Position [Right Arm] 02 Sat by Pulse Oximetry 100 100 100 Oxygen Delivery Method 05/29/23 20:04 05/29/23 20:43 05/29/23 20:50 Temperature 98.8 F 98.8 F 98.8 F Temperature Source Pulse Rate 84 87 85 Pulse Rate [Right Radial] Respiratory Rate 16 15 Blood Pressure 159/94 H 142/79 H 157/84 H Blood Pressure [Right Arm] Blood Pressure Mean Blood Pressure Mean [Right Arm] Blood Pressure Source Blood Pressure Source [Right Arm] Blood Pressure Position Blood Pressure Position [Right Arm] 02 Sat by Pulse Oximetry 100 98 95 Oxygen Delivery Method 05/29/23 21:00 05/29/23 21:10 05/29/23 21:20 Temperature 98.8 F Temperature Source Pulse Rate 82 Pulse Rate [Right Radial] Respiratory Rate 18 18 Blood Pressure 140/83 143/80 H Blood Pressure [Right Arm] Blood Pressure Mean 100 Blood Pressure Mean [Right Arm] Blood Pressure Source Blood Pressure Source [Right Arm] Blood Pressure Position Blood Pressure Position [Right Arm] 02 Sat by Pulse Oximetry 98 96 Oxygen Delivery Method Lab Data Lab Results 05/29/23 17:10: WBC 5.1, RBC 3.08 L, Hgb 9.2 L, Hct 33.3 L, MCV 108.0 H, MCH 29.9, MCHC 27.7 L, RDW 19.5 H, Plt Count 57 L, MPV 12.2 H, Neut % (Auto) 82.7 H, Lymph % (Auto) 14.0, [place] % (Auto) 2.9, Eos % (Auto) 0.1, Baso % (Auto) 0.2, Neut # (Auto) 4.2, Lymph # (Auto) 0.7, [place] # (Auto) 0.2, Eos # (Auto) 0.0, Baso # (Auto) 0.0, Sodium 127 L, Potassium 4.0, Chloride 106, Carbon Dioxide 7 L*, A nion Gap 18.0 H, BUN 8, Creatinine 0.20 L, Estimated Creat Clear 436 H, Estimated GFR 365, Est GFR ( Amer) 441, Glucose 22 L*, Lactate 20.8 H, C alcium 5.7 L, Total Bilirubin 0.2, AST 11 L, ALT < 4 L, Alkaline Phosphatase 21 L, Troponin I < 0.01, NT-Pro-B Natriuret Pep 2250 H, Total Protein < 2.0 L, A lbumin < 1.0 L, Globulin 1.0 L, Albumin/Globulin Ratio 1.0 L 05/29/23 18:20: Urine Color Patti, Urine Appearance Slightly cloudy, Urine pH 5.0, Ur Specific [place] >= 1.030, Urine Protein 3+, Urine Glucose (UA) Trace, Urine Ketones 1+, Urine Blood Negative, Urine Nitrate Positive, Urine Bilirubin 3+ A, Urine Urobilinogen 4.0, Ur Leukocyte Esterase Negative, Urine RBC None, Urine WBC Occasional, Ur Squamous Epith Cells Occasional, Urine Bacteria 2+ 05/29/23 19:30: VBG pH 7.07 L, VBG pCO2 23.8 L, VBG pO2 80.9 H, VBG HCO3 6.7 L, VBG Total CO2 7.4 L, VBG O2 Saturation 90.4 H, VBG Base Excess -23.5 L, VBG Lactic Acid 18.5 H 05/29/23 19:55: WBC 10.0 D, RBC 4.96 D, Hgb 16.1 D, Hct 50.9 H, MCV 102.6 H, MCH 32.5 H, MCHC 31.6 L, RDW 19.0 H, Plt Count 82 L D, MPV 10.4, Neut % (Auto) 81.0 H, Lymph % (Auto) 7.4 L, [place] % (Auto) 11.1 H, Eos % (Auto) 0.1, Baso % (Auto) 0.3, Neut # (Auto) 8.1 H, Lymph # (Auto) 0.7, [place] # (Auto) 1.1 H, Eos # (Auto) 0.0, Baso # (Auto) 0.0, PT 20.6 H, INR 2.00 H, APTT 32.7 H, Fibrinogen 158 L, Sodium 135 L, Potassium 4.2, Chloride 100, Carbon Dioxide 28, Anion Gap 11.2, BUN 43 H D, Creatinine 1.90 H D, Estimated Creat Clear 46, Estimated GFR 27 L, Est GFR ( Amer) 33 L D, Glucose 192 H D, Lactate 3.6 H, Calcium 9.1, Total Bilirubin 3.4 H, AST 54 H D, ALT 28 D, Alkaline Phosphatase 124, Lactate Dehydrogenase 429, Troponin I 0.16 H, NT-Pro-B Natriuret Pep 29108 H, T otal Protein 5.2 L D, Albumin 2.8 L D, Globulin 2.4, Albumin/Globulin Ratio 1.2 05/29/23 20:00: Direct Antiglob Test Negative 05/29/23 21:03: Random Glucose 160 H 05/29/23 19:55 05/29/23 19:55 Orders (Tests/Meds): ED MEDICATIONS Generic Name Dose Route Start Last Admin Trade Name Freq PRN Reason Stop Dose Admin Enoxaparin Sodium 40 mg 05/29/23 21:30 Enoxaparin 40mg/0.4ml Syringe SQ 05/29/23 21:31 ONCE ONE Propofol 100 mls @ 2.7 mls/hr 05/29/23 18:04 05/29/23 20:02 Diprivan 10mg/Ml 100ml Bottle IV 06/28/23 18:03 15 mcg/kg/min .Q24H KIESHA 8.1 mls/hr Titration Protocol 5 MCG/KG/MIN Miscellaneous 1 each 05/29/23 18:15 05/29/23 20:59 Vancomycin Consult Request NOTAPPLIC 06/28/23 18:14 1 each CONSULT PHARMACY KIESHA Administration Morphine Sulfate 2 mg 05/29/23 21:30 Morphine 2mg/Ml Syringe IV 06/28/23 21:29 Q2HP PRN Severe Pain (7-10) Pantoprazole Sodium 40 mg 05/30/23 21:00 Pantoprazole 40mg Vial IV 06/29/23 20:59 HS KIESHA Sodium Chloride 3 ml 05/29/23 19:01 Sodium Chloride 3% 15ml Neb IH 06/28/23 19:00 ONCE PRN INDUCE SPUTUM COLLECTION Sodium Chloride 10 ml 05/29/23 19:08 Sodium Chloride 0.9% 10ml Vial IV 06/28/23 19:07 NEEDED PRN to Dilute Lorazepam inj Sodium Chloride 10 ml 05/29/23 20:36 05/29/23 20:37 Sodium Chloride 0.9% 10ml Syr (Rad Only) IV 06/28/23 20:35 10 ml NEEDED PRN Administration Maintain IV Site Discontinued Medications Generic Name Dose Route Start Last Admin Trade Name Freq PRN Reason Stop Dose Admin Albuterol/Ipratropium 9 ml 05/29/23 18:28 05/29/23 18:55 Ipratropium/Albuterol 3 Ml Neb IH 05/29/23 18:29 9 ml ONCE ONE Administration Dextrose 50 ml 05/29/23 19:08 05/29/23 19:05 Dextrose 50% 50ml Syringe (Crash Cart) IVP 05/29/23 19:09 50 ml ONCE ONE Administration Etomidate 60 mg 05/29/23 17:48 05/29/23 18:47 Etomidate 40mg/20ml Vial IV 05/29/23 17:49 60 mg ONCE ONE Administration Furosemide 80 mg 05/29/23 18:04 05/29/23 18:32 Furosemide 40mg/4ml Vial IV 05/29/23 18:05 80 mg ONCE ONE Administration Hydrocortisone Sodium Succinate 100 mg 05/29/23 18:28 05/29/23 18:32 Hydrocortisone Sod Succinate 100mg Vial IV 05/29/23 18:29 100 mg ONCE ONE Administration Piperacillin Sod/Tazobactam 100 mls @ 200 mls/hr 05/29/23 18:04 05/29/23 19:59 Sod 4.5 gm/ Sodium Chloride IV 05/29/23 18:33 200 mls/hr ONCE ONE Administration Vancomycin HCl 2,250 mg/ 250 mls @ 125 mls/hr 05/29/23 18:15 05/29/23 21:07 Sodium Chloride IV 05/29/23 20:14 125 mls/hr ONCE ONE Administration Sodium Chloride 250 mls @ 250 mls/hr 05/29/23 19:17 05/29/23 21:26 Sod Chloride 3% 500ml Bag (Hypertonic) IV 05/29/23 20:16 Not Given .Q1H ONE Iopamidol 200 ml 05/29/23 20:36 05/29/23 20:37 Iopamidol-370 (76%);100ml Bottle IV 05/29/23 20:37 200 ml ONCE ONE Administration Lorazepam 4 mg 05/29/23 19:08 05/29/23 19:18 Lorazepam 2mg/Ml Vial IV 05/29/23 19:09 4 mg ONCE ONE Administration Miscellaneous 1 each 05/29/23 18:15 05/29/23 21:26 Pha To Nursing Instruction NOTAPPLIC 05/29/23 18:16 Not Given ONCE ONE Sodium Chloride 100 ml 05/29/23 20:36 05/29/23 20:37 0.9 % Sodium Chloride 50 Ml Vial IV 05/29/23 20:37 100 ml ONCE ONE Administration Succinylcholine Chloride 150 mg 05/29/23 18:41 05/29/23 18:48 Succinylcholine 20mg/Ml 10 Ml Mdv IV 05/29/23 18:42 150 mg ONCE ONE Administration ORDERS Category Date Time Status Direct Reena Stat BBK 05/29/23 20:[address] angio abdomen pelvis Stat Cat Scan 05/29/23 18:[address] angio chest - dissection Stat Cat Scan 05/29/23 18:[address] angio head Stat Cat Scan 05/29/23 18:[address] angio neck Stat Cat Scan 05/29/23 18:[address] cervical spine wo con Stat Cat Scan 05/29/23 18:[address] head/brain wo con Stat Cat Scan 05/29/23 18:[address] lumbar spine wo con Stat Cat Scan 05/29/23 18:[address] thoracic spine wo con Stat Cat Scan 05/29/23 18:10 Completed Pulmonology Consult [Consult to Pulmonology] [CONS] Cons 05/29/23 21:34 Active Routine CXR --portable [XR chest portable] Stat Exams 05/29/23 20:15 Taken Femur XR left 2 views [XR femur LT 2V] Stat Exams 05/29/23 19:59 Taken KUB (single view) [XR KUB] Stat Exams 05/29/23 18:13 Completed Knee XR left 3 views [XR knee LT 3V] Stat Exams 05/29/23 19:59 Taken POCUS Point of Care (ER Only) Stat Exams 05/29/23 17:41 Completed XR chest portable Stat Exams 05/29/23 17:42 Completed XR hip LT 2-3V w/pelvis Stat Exams 05/29/23 19:59 Taken CBC w/Auto Diff [Complete Blood Count Auto Diff] Stat Lab 05/29/23 19:55 Completed CMP [Comprehensive Metabolic Panel] Stat Lab 05/29/23 19:55 Completed Complete Blood Count Auto Diff AMLAB Lab 05/30/23 06:00 Ordered Complete Blood Count Auto Diff Stat Lab 05/29/23 17:10 Completed Comprehensive Metabolic Panel AMLAB Lab 05/30/23 06:00 Ordered Comprehensive Metabolic Panel Stat Lab 05/29/23 17:10 Completed Fibrinogen Stat Lab 05/29/23 19:55 Completed Glucose,Random Q30M Lab 05/29/23 21:03 Completed Glucose,Random Q30M Lab 05/29/23 21:34 Ordered Glucose,Random Q30M Lab 05/29/23 22:04 Ordered Glucose,Random Q30M Lab 05/29/23 22:34 Ordered Glucose,Random Q30M Lab 05/29/23 23:04 Ordered Glucose,Random Q30M Lab 05/29/23 23:34 Ordered LDH [Lactate Dehydrogenase] Stat Lab 05/29/23 19:55 Completed Lactic Acid Stat Lab 05/29/23 17:10 Completed Lactic Acid Stat Lab 05/29/23 19:55 Completed Magnesium AMLAB Lab 05/30/23 06:00 Ordered NT Pro Brain Natriuretic Pep. Stat Lab 05/29/23 17:10 Completed NT Pro Brain Natriuretic Pep. Stat Lab 05/29/23 19:55 Completed PT INR [Prothrombin Time INR] Stat Lab 05/29/23 19:55 Completed PTT [Activated Partial Thrombo Time] Stat Lab 05/29/23 19:55 Completed Trop I [Troponin I] Stat Lab 05/29/23 19:55 Completed Troponin I Q3H Lab 05/29/23 21:03 Received Troponin I Q3H Lab 05/29/23 23:00 Ordered Troponin I Q3H Lab 05/29/23 23:45 Ordered Troponin I Q3H Lab 05/30/23 02:00 Ordered Troponin I Stat Lab 05/29/23 17:10 Completed Urinalysis and Microscopic Stat Lab 05/29/23 18:20 Completed Blood Culture Stat Micro 05/29/23 17:42 Ordered Blood Culture Stat Micro 05/29/23 19:50 Ordered Sputum Culture & Gram Stain Stat Micro 05/29/23 18:20 Received Urine Culture Stat Micro 05/29/23 18:20 Received Intubate Patient [Insert, Endotracheal Tube] Stat RT 05/29/23 17:44 Ordered Venous Blood Gas Stat RT 05/29/23 19:30 Completed Medical Decision Narrative: 57-year-old female history of reported hypertension, hyperlipidemia, CHF with AICD in place currently on Eliquis, diabetes presenting with altered mental status. Little is known about patient other than report from EMS. Patient was reportedly found down, minimally responsive. EMS was called. Patient hypoxemic in the 70s when EMS arrived. Placed on BiPAP, saturations improved to the 90s. Patient brought immediately to the emergency department. Patient acutely ill on arrival, no further information given. History obtained with EMS. On arrival, patient pale, mottled, cyanotic, saturating about [address], GCS 3 and unresponsive, completely obtunded. Bedside ultrasound with plethoric IVC, hyperdynamic heart, free fluid in the abdomen. Patient with no pain response. Patient does have femoral and carotid pulses. Initial glucose 129, access obtained. Patient was intubated using etomidate and succinylcholine. 7.5 tube was passed 22 at the lip. Bilateral breath sounds auscultated. Patient was hooked up to the ventilator. Bedside patient began exhibiting seizure-like activity despite being on propofol, repeat glucose was in the 60s. Patient's ABG with initial pH 7.06, CO2 low at 23, oxygen adequate. Patient's bicarb 6, glucose 21, lactate elevated at 18.5. Patient given amp of D50 with continued left-sided seizure-like activity. Patient was then given 4 mg IV Ativan, seizures abated at that time. Due to concern for hyponatremia on initial blood draw, 3% normal saline was ordered, but further evaluation of labs concerning for diluted sample. Hypertonic saline held at this time. Patient to be given empiric antibiotics with vancomycin and Zosyn, as well as hydrocortisone given recent critical illness and hospitalization at outside facility ([facility]). Central line placed in right IJ with ultrasound guidance. Rest of labs interpreted, concern for dilution. Repeat panel was drawn. Patient without leukocytosis, hemoglobin 16.1, platelets low at 82,000. Patient's INR 2.0, PTT 32, fibrinogen low at 158. Repeat chemistry with sodium 135, MARIA with creatinine 1.9 and BUN 43 concerning for prerenal injury. Lactate 3.6. LFTs nonactionable. Initial BNP 23,000, troponin 0.16. Patient given 80 mg IV Lasix. Due to intermittent hypotensive pressures, norepinephrine was considered, but mean arterial pressures never drop below 65. Patient's blood pressure slowly improved with Lasix, so norepinephrine was discontinued. Propofol increased for sedation. Urinalysis with concern for UTI with nitrates, leukocyte Estrace, bacteria and blood. Given patient critically ill, admission warranted. Hospitalist was contacted and interactive discussion was had, patient to be admitted. Procedures Intubation Mallampati Score:: Class IV Time out performed: No sedative: Etomidate Mg Given: 40 paralytic: Succinylcholine Mg Given: 150 Laryngoscope: Dl ET Tube Size: 7.5 ET Tube Uncuffed: Yes Tube Secured Depth (cm): 22 Tube Secured Location: lips Tube Placement Confirmation: visualized tube passing through cords, equal breath sounds bilaterally, no breath sounds over epigastrium and confirmation by capnometry Patient Tolerated Procedure: well Intubation Complications: none Central Line Placement Right IJ: Time Out Performed: Yes Patient Placed on Monitor/Pulse Ox: Yes MD Prep: mask, gown and gloves Central Line Prep: Chlorhexidine scrub Local Anesthetic: other anesthetic (general with propofol) Ultrasound Used for Placement: Yes Central Line Lumen Inserted: triple Post Procedure: sutured in place, good blood return, all ports aspirated, flushed, capped and sterile dressing applied Patient Tolerated Procedure: well and no complications Complications: none Limited Ultrasound Indication:: Limited ARMIJO ultrasound Indication: Hypotension Views: LUQ, RUQ, Pelvis, Limited Cardiac, Limited Thoracic, IVC, Aorta Interpretation: Peritoneal Free Fluid: Present Pericardial effusion: Absent Right thoracic free Fluid: Present with B-lines Left thoracic Free Fluid: Present with B-lines Right lung pneumothorax: Absent Left Lung pneumothorax: Absent IVC: Plethoric Aorta: Normal Impression: Plethoric IVC with hypodynamic heart. Intra-abdominal fluid, large right-sided pleural effusion. B-lines bilaterally Images were saved to permanent archive The study was technically adequate CPT 75151-19 (limited cardiac) 31929-27 (limited abdominal) 75252-49 (chest) 63926-63 (aorta) 19438-10 (IVC) This study was performed by me, and I personally interpreted all images/videos. Based on my clinical judgement, these images were adequate and did not necessitate further imaging. Critical Care Critical Care Time Critical Care Time: Yes Attestation: On 05/29/23, the high probability of a clinically significant, sudden or life threatening deterioration of the following system(s) required my full and direct attention, intervention and personal management. The time I documented below is in addition to time spent performing reported procedures but includes the following listed in this critical care notation. Total Time Total Critical Care Time: 120
[2023-05-29] MEDS: PIPERACILLIN/TAZO 4.5 GM in 0.9 % SODIUM CHLORIDE 100 ML IV (19:59)
--- NOTE | 2023-05-29 19:59 | XR_ITS ---
PROCEDURE INFORMATION: Exam: XR Left Femur Exam date and time: 05/29/2023 8:42 PM Age: 57 years old Clinical indication: Swelling, leg or foot; Additional info: Swelling about L hip an dknee, found down TECHNIQUE: Imaging protocol: Radiologic exam of the left femur. Views: 2 views. COMPARISON: CR XR KNEE LT 3V 05/29/2023 8:42 PM FINDINGS: Bones/joints: No acute fracture or dislocation. Soft tissues: Unremarkable. IMPRESSION: No acute fracture or dislocation.
--- NOTE | 2023-05-29 19:59 | XR_ITS ---
PROCEDURE INFORMATION: Exam: XR Left Knee Exam date and time: 05/29/2023 8:42 PM Age: 57 years old Clinical indication: Swelling, leg or foot; Additional info: Swelling about L hip an dknee, found down TECHNIQUE: Imaging protocol: Radiologic exam of the left knee. Views: 3 views. COMPARISON: CR XR KNEE LT 3V 03/27/2021 4:00 PM FINDINGS: Bones/joints: No acute fracture or dislocation. Soft tissues: Normal. IMPRESSION: No acute fracture or dislocation.
--- NOTE | 2023-05-29 19:59 | XR_ITS ---
PROCEDURE INFORMATION: Exam: XR Left Hip Exam date and time: 05/29/2023 8:42 PM Age: 57 years old Clinical indication: Swelling or effusion of joint; Left; Additional info: Swelling, found down TECHNIQUE: Imaging protocol: Radiologic exam of the left hip. Views: 2 or 3 views hip with pelvis when performed. COMPARISON: CT ANGIO ABDOMEN PELVIS 05/29/2023 8:32 PM FINDINGS: Limitations: Overlying leads. Tubes, catheters and devices: Right groin clips. Urinary bladder catheter. Bones/joints: No acute fracture or dislocation. Soft tissues: Unremarkable. Vasculature: Right common iliac region stent. IMPRESSION: No acute fracture or dislocation.
--- NOTE | 2023-05-29 20:04 | PC.NURSE ---
Discontinued Lavonne Mahajan at this time. Core temperature currently at 98.8 farenheit.
--- NOTE | 2023-05-29 20:05 | PC.NURSE ---
Redrawing labs a this time concern for sample dilution of previous set of laboratory data. Holding hypertonic saline at this time. Will continue to CT
--- NOTE | 2023-05-29 20:08 | PC.NURSE ---
fsbs 127 at this time
[2023-05-29 20:13] LABS: Basophils % 0.3 % (0.1-2.0); Eosinophils % 0.1 % (0.1-12.0); Hematocrit 50.9 % (37.0-47.0); Lymphocytes # 0.7 K/mm3 (0.7-4.5); Lymphocytes % 7.4 % (10-50); Mean Corpuscular HGB Conc 31.6 g/dL (31.8-35.4); Mean Corpuscular Hemoglobin 32.5 pg (27.0-31.2); Mean Corpuscular Volume 102.6 fl (81-99); Mean Platelet Volume 10.4 fl (7.4-10.4); Monocytes # 1.1 K/mm3 (0.1-1.0); Monocytes % 11.1 % (1.7-9.3); Neutrophils # 8.1 K/mm3 (1.8-7.8); Platelet Count 82 K/mm3 (142-424); Red Blood Count 4.96 M/mm3 (4.20-5.40)
--- NOTE | 2023-05-29 20:15 | XR_ITS ---
PROCEDURE INFORMATION: Exam: XR Chest Exam date and time: 05/29/2023 8:42 PM Age: 57 years old Clinical indication: Device placement; Other: Central line TECHNIQUE: Imaging protocol: Radiologic exam of the chest. Views: 1 view. COMPARISON: CT ANGIO CHEST 05/29/2023 8:32 PM FINDINGS: Tubes, catheters and devices: Right internal jugular catheter tip projects at the right atrium. Endotracheal tube tip projects 3.6 cm above the terrence. Nasoenteric tube tip projects at the stomach. Wire like device projects at the left mediastinum. Defibrillator pads. EKG leads. Lungs: Unremarkable. No consolidation. Pleural spaces: No pneumothorax. Moderate right pleural effusion. Trace left pleural effusion. Heart/Mediastinum: Mild enlargement of the cardiac silhouette. Bones/joints: Unremarkable. IMPRESSION: 1. Support tubes and lines as detailed above. 2. No pneumothorax. 3. Moderate right pleural effusion. 4. Trace left pleural effusion. 5. Mild enlargement of the cardiac silhouette.
[2023-05-29 20:17] LABS: Chloride 100 mmol/L (98-107); Sodium 135 mmol/L (136-145)
[2023-05-29 20:18] LABS: Hemoglobin 16.1 g/dL (12.2-16.2); Potassium 4.2 mmoL/L (3.5-5.1)
--- NOTE | 2023-05-29 20:18 | PC.NURSE ---
Patient to CT with RN, RT, zoll and monitor on transport vent.
[2023-05-29 20:20] LABS: Alanine Aminotransferase 28 U/L (12-78); Alkaline Phosphatase 124 U/L (38-126); Anion Gap 11.2 mEq/L (5-15); Aspartate Amino Transferase 54 U/L (14-36); Bilirubin,Total 3.4 mg/dl (0.2-1.3); Blood Urea Nitrogen 43 mg/dl (7-17); Carbon Dioxide 28 mmol/L (22.0-30.0); Creatinine Clearance Estimated 46 mL/min (50-200); Estimated Glomerular Filt Rate 27 ml/min (>60); GFR (African American) 33 ML/MIN (>60)
[2023-05-29 20:21] LABS: Albumin Level 2.8 g/dl (3.5-5.0); Albumin/Globulin Ratio 1.2 (1.1-1.8); Calcium 9.1 mg/dl (8.4-10.2); Globulin 2.4 g/dL (1.3-3.2); Glucose 192 mg/dl (74-100); Lactate Dehydrogenase 429 U/L (313-618); Total Protein,Serum 5.2 g/dl (6.3-8.2)
[2023-05-29 20:22] LABS: Activated Partial Thrombo Time 32.7 seconds (22.8-30.6); Fibrinogen 158 mg/dL (229.9-363.5); Lactic Acid 3.6 mmol/L (0.7-2.1); Prothrombin Time 20.6 seconds (10.1-12.5)
[2023-05-29 20:29] LABS: NT Pro Brain Natriuretic Pep. 22900 pg/mL (0-125)
[2023-05-29 20:33] LABS: Troponin I 0.16 ng/ml (0.00-0.034)
--- NOTE | 2023-05-29 20:36 | PC.NURSE ---
Patient completed with CT. Patient tolerated well. Last set of vitals 156/91, 83 HR, 100 on vent at this time.
[2023-05-29] MEDS: SODIUM CHLORIDE 0.9% 10ML SYR (RAD ONLY) 10 ML IV (20:37)
[2023-05-29] MEDS: IOPAMIDOL-370 (76%);100ML BOTTLE 200 ML IV (20:37)
[2023-05-29] MEDS: 0.9 % SODIUM CHLORIDE 50 ML VIAL 100 ML IV (20:37)
[2023-05-29] MEDS: VANCOMYCIN CONSULT REQUEST 1 EACH NOTAPPLIC (20:59)
--- NOTE | 2023-05-29 21:06 | PC.NURSE ---
family notified that 2 visitors could come back
[2023-05-29] MEDS: VANCOMYCIN HCL 2,250 MG in 0.9 % SODIUM CHLORIDE 250 ML 125 MG IV (21:07)
[2023-05-29 21:15] LABS: VBG Base Excess -23.5 mmol/L (-2.4-2.3); VBG HCO3 6.7 mmol/L (23-30); VBG Oxygen Saturation 90.4 % (50-70); VBG PH 7.07 mmol/L (7.31-7.41); VBG PO2 80.9 mmol/L (28-40); VBG Total CO2 7.4 mmol/L (23-27)
[2023-05-29 21:16] LABS: Lactate Venous 18.5 mmol/L (0.4-2.0); VBG PCO2 23.8 mmol/L (35-51)
[2023-05-29 21:25] LABS: Glucose,Random 160 mg/dL (74-100)
--- NOTE | 2023-05-29 21:34 | PC.NURSE ---
HS notified of admission for sepsis, hypoxemic resp failure, AMS, and CHF exacerbation
[2023-05-29 21:37] LABS: Troponin I 0.19 ng/ml (0.00-0.034)
--- NOTE | 2023-05-29 21:38 | EXP.HP ---
History of Present Illness *Admission Date: 05/29/23 *Reason for visit:: AMS *History of present illness: This is a 57-year-old female history of reported hypertension, hyperlipidemia, CHF with AICD in place currently on Eliquis, diabetes presenting with altered mental status. Patient seen status post intubation, therefore data is limited. Per Ed documentation, patient was reportedly found down, minimally responsive. EMS was called. Patient hypoxemic in the 70s when EMS arrived. Placed on BiPAP, saturations improved to the 90s. Patient brought immediately to the emergency department. Patient acutely ill on arrival, no further information given. Admitted for management and treatment [facility] Disclaimer: The information contained in this section may have been updated after the patient was seen, as this information can be updated by other users. Medical History (Updated 05/30/23 @ 03:06 by Champ Ramey APRN) ICD (implantable cardioverter-defibrillator) in place Hypertension Hyperlipemia Claudication Chronic respiratory failure Left ventricular thrombosis Ischemic cardiomyopathy with implantable cardioverter-defibrillator (ICD) Venous (peripheral) insufficiency HFrEF (heart failure with reduced ejection fraction) Seizure Social History (Updated 05/29/23 @ 23:59 by Karolyn Loo RN) Smoking Status: Current some day smoker tobacco type: cigarettes packs per day: 1 alcohol intake: never substance use type: denies use current occupational status: disabled Travel in the last 8 weeks: None caffeine: No Review of Systems Review of Systems Review of systems:: unable to obtain Meds Home Medications and Allergies Home Medications Medication Instructions Recorded Confirmed Type gabapentin 100 mg capsule 600 mg PO DAILY Pain 04/06/17 05/29/23 History lisinopril 10 mg tablet 10 mg PO ONCE blood pressure 04/06/17 05/29/23 History apixaban 5 mg tablet (Eliquis) 5 mg PO DAILY 05/29/23 05/29/23 History clopidogrel 75 mg tablet 75 mg PO DAILY 05/29/23 05/29/23 History folic acid 1 mg tablet 1 mg PO DAILY 05/29/23 05/29/23 History furosemide 20 mg tablet 20 mg PO AM 05/29/23 05/29/23 History metoprolol succinate 50 mg 50 mg PO HS 05/29/23 05/29/23 History tablet,extended release 24 hr montelukast 10 mg tablet 10 mg PO HS 05/29/23 05/29/23 History pantoprazole 40 mg tablet,delayed 40 mg PO DAILY 05/29/23 05/29/23 History release potassium chloride 10 mEq 10 meq PO AM 05/29/23 05/29/23 History capsule,extended release topiramate 25 mg tablet 25 mg PO HS 05/29/23 05/29/23 History New Prescriptions to Start Prescriptions: Allergies Allergy/AdvReac Type Severity Reaction Status Date / Time No Known Allergies Allergy Verified 01/21/18 14:48 Exam Data for Last 24 hours Vital signs and Labs for Last 24 Hours: Temp Pulse Resp BP Pulse Ox O2 Del Method FiO2 98.8 F 82 18 143/80 H 96 Mechanical Ventilation 55 05/29/23 21:10 05/29/23 21:10 05/29/23 21:20 05/29/23 21:10 05/29/23 21:20 05/29/23 18:36 05/29/23 21:20 Laboratory Results - last 24 hr 05/29/23 17:10: WBC 5.1, RBC 3.08 L, Hgb 9.2 L, Hct 33.3 L, MCV 108.0 H, MCH 29.9, MCHC 27.7 L, RDW 19.5 H, Plt Count 57 L, MPV 12.2 H, Neut % (Auto) 82.7 H, Lymph % (Auto) 14.0, [place] % (Auto) 2.9, Eos % (Auto) 0.1, Baso % (Auto) 0.2, Neut # (Auto) 4.2, Lymph # (Auto) 0.7, [place] # (Auto) 0.2, Eos # (Auto) 0.0, Baso # (Auto) 0.0, Sodium 127 L, Potassium 4.0, Chloride 106, Carbon Dioxide 7 L*, Anion Gap 18.0 H, BUN 8, Creatinine 0.20 L, Estimated Creat Clear 436 H, Estimated GFR 365, Est GFR ( Amer) 441, Glucose 22 L*, Lactate 20.8 H, Calcium 5.7 L, Total Bilirubin 0.2, AST 11 L, ALT < 4 L, Alkaline Phosphatase 21 L, Troponin I < 0.01, NT-Pro-B Natriuret Pep 2250 H, Total Protein < 2.0 L, Albumin < 1.0 L, Globulin 1.0 L, Albumin/Globulin Ratio 1.0 L 05/29/23 18:20: Urine Color Patti, Urine Appearance Slightly cloudy, Urine pH 5.0, Ur Specific [place] >= 1.030, Urine Protein 3+, Urine Glucose (UA) Trace, Urine Ketones 1+, Urine Blood Negative, Urine Nitrate Positive, Urine Bilirubin 3+ A, Urine Urobilinogen 4.0, Ur Leukocyte Esterase Negative, Urine RBC None, Urine WBC Occasional, Ur Squamous Epith Cells Occasional, Urine Bacteria 2+ 05/29/23 19:30: VBG pH 7.07 L, VBG pCO2 23.8 L, VBG pO2 80.9 H, VBG HCO3 6.7 L, VBG Total CO2 7.4 L, VBG O2 Saturation 90.4 H, VBG Base Excess -23.5 L, VBG Lactic Acid 18.5 H 05/29/23 19:55: WBC 10.0 D, RBC 4.96 D, Hgb 16.1 D, Hct 50.9 H, MCV 102.6 H, MCH 32.5 H, MCHC 31.6 L, RDW 19.0 H, Plt Count 82 L D, MPV 10.4, Neut % (Auto) 81.0 H, Lymph % (Auto) 7.4 L, [place] % (Auto) 11.1 H, Eos % (Auto) 0.1, Baso % (Auto) 0.3, Neut # (Auto) 8.1 H, Lymph # (Auto) 0.7, [place] # (Auto) 1.1 H, Eos # (Auto) 0.0, Baso # (Auto) 0.0, PT 20.6 H, INR 2.00 H, APTT 32.7 H, Fibrinogen 158 L, Sodium 135 L, Potassium 4.2, Chloride 100, Carbon Dioxide 28, Anion Gap 11.2, BUN 43 H D, Creatinine 1.90 H D, Estimated Creat Clear 46, Estimated GFR 27 L, Est GFR ( Amer) 33 L D, Glucose 192 H D, Lactate 3.6 H, Calcium 9.1, Total Bilirubin 3.4 H, AST 54 H D, ALT 28 D, Alkaline Phosphatase 124, Lactate Dehydrogenase 429, Troponin I 0.16 H, NT-Pro-B Natriuret Pep 97502 H, Total Protein 5.2 L D, Albumin 2.8 L D, Globulin 2.4, Albumin/Globulin Ratio 1.2 05/29/23 20:00: Direct Antiglob Test Negative 05/29/23 21:03: Random Glucose 160 H I & O for Last 24 hours: Intake & Output 05/26/23 05/27/23 05/28/23 05/29/23 23:59 23:59 23:59 23:59 Intake Total 6.66 / 6.66 Balance 6.66 / 6.66 Weight 90 kg Constitutional Constitutional: obtunded *Routine HEENT Exam Head: Present normocephalic Eye: Present EOMI and PERRL ENT: Present mucous membranes moist *Routine Neck Exam Neck: Present supple; Absent lymphadenopathy *Routine Respiratory Exam Respiratory: Present patient mechanically ventilated *Routine Cardiovascular Exam Cardiovascular: Present RRR *Routine Abdominal Exam Abdominal: Present soft and normoactive bowel sounds; Absent tenderness *Routine Rectal Exam Rectal:: deferred *Routine Genitalia Exam Genitalia:: deferred *Routine Extremities Exam Extremities: Absent cyanosis, clubbing or edema *Routine Skin Exam Skin: Present warm; Absent rash *Routine Neurological Exam Neurological: Present altered mental status Routine Psychiatric Exam Psychiatric: Present unable to assess H&P: Result Imaging and Cardiology EKG: Status: image reviewed by me, Preliminary report and final report Chest x-ray: Status: image reviewed by me, Preliminary report and final report CT scan - chest: Status: image reviewed by me, Preliminary report and final report CT scan - abdomen: Status: image reviewed by me, Preliminary report and final report CT scan - head: Status: image reviewed by me, Preliminary report and final report Assessment and Plan *Assessment and plan (1) Hypoxic respiratory failure: Status: Acute Qualifiers: Chronicity: acute on chronic Qualified Code(s): J96.21 - Acute and chronic respiratory failure with hypoxia Category: Medical Code(s): J96.91 - Respiratory failure, unspecified with hypoxia (2) Acute exacerbation of CHF (congestive heart failure): Status: Acute Qualifiers: Heart failure type: combined systolic and diastolic Qualified Code(s): I50.43 - Acute on chronic combined systolic (congestive) and diastolic (congestive) heart failure Category: Medical Code(s): I50.9 - Heart failure, unspecified (3) Cardiogenic shock: Status: Acute Category: Medical Code(s): R57.0 - Cardiogenic shock (4) On mechanically assisted ventilation: Status: Acute Category: Medical Code(s): Z99.11 - Dependence on respirator [ventilator] status (5) HFrEF (heart failure with reduced ejection fraction): Status: Acute Category: Medical Code(s): I50.20 - Unspecified systolic (congestive) heart failure (6) Ischemic cardiomyopathy with implantable cardioverter-defibrillator (ICD): Status: Acute Category: Medical Code(s): I25.5 - Ischemic cardiomyopathy; Z95.810 - Presence of automatic (implantable) cardiac defibrillator Plan 57-year-old female history of reported hypertension, hyperlipidemia, CHF with AICD in place currently on Eliquis, diabetes presenting with altered mental status. Patient seen status post intubation, therefore data is limited. Per Ed documentation, patient was reportedly found down, minimally responsive. EMS was called. Patient hypoxemic in the 70s when EMS arrived. Placed on BiPAP, saturations improved to the 90s. On arrival, patient pale, mottled, cyanotic, saturating about [address], GCS 3 and unresponsive, completely obtunded. Bedside ultrasound with plethoric IVC, hyperdynamic heart, free fluid in the abdomen. Patient with no pain response. Patient does have femoral and carotid pulses. Initial glucose 129, access obtained. Patient was intubated. Central line placed in right IJ with ultrasound guidance. Patient without leukocytosis, hemoglobin 16.1, platelets low at 82,000. Patient's INR 2.0, PTT 32, fibrinogen low at 158. Repeat chemistry with sodium 135, MARIA with creatinine 1.9 and BUN 43 concerning for prerenal injury. Lactate 3.6. LFTs nonactionable. Initial BNP 23,000, troponin 0.16. Patient given 80 mg IV Lasix. Due to intermittent hypotensive pressures, norepinephrine was considered, but mean arterial pressures never drop below 65. Findings discussed in length with ED. Agreed for admission. Plan as follow: Acute on chronic hypoxic respiratory failure: Acute decompensation of CHF. Suspected cardiogenic shock: status on mechanical vent: Admit patient. dispo ICU on cont sedation. Propofol and fentanyl monitor BP for hypotension. Improved after dosis of lasix galindo inserted. Monitor strict I/Os on vanco. pharmacy to dose cultures pending repeat CMP/CBC daily cardiology and Pulmonolgy consult respiratory therapist to assist with care. pulmo toileting CTs reviewed. concerning for overloaded fluid. Anasarca. lasix BID HFrEF: initial bedside US showed reduced EF, wuth hemodynamic instability. may need formal ACHO. will deferred to cardiology for management. optimizing diuresis AICD in place On plavix and xarelto SCD for DVT ppx. On protonix for GI bleed protection Full code
[2023-05-29 21:52] LABS: VBG HCO3 24.5 mmol/L (23-30); VBG Oxygen Saturation 45.1 % (50-70); VBG PH 7.29 mmol/L (7.31-7.41); VBG PO2 25.8 mmol/L (28-40); VBG Total CO2 26.1 mmol/L (23-27)
[2023-05-29 21:54] LABS: Lactate Venous 6.3 mmol/L (0.4-2.0); VBG PCO2 52.2 mmol/L (35-51)
[2023-05-29 22:33] LABS: Reflex Lactic Add Lactic Reflex
--- NOTE | 2023-05-29 22:44 | PC.NURSE ---
Bedside nurse to nurse report given to Aleida SMITH.
[2023-05-29 23:34] LABS: Lactic Acid Follow Up (RFLX 1) 2.6 mmol/L (0.7-2.1)
[2023-05-29 23:43] LABS: Troponin I 0.26 ng/ml (0.00-0.034)
--- NOTE | 2023-05-29 23:46 | PC.NURSE ---
central line dsg cleaned and replaced using sterile technique.
[2023-05-29] MEDS: FENTANYL CITRATE/PF 1,000 MCG in 0.9 % SODIUM CHLORIDE 80 ML 1 MCG IV (23:56)
[2023-05-30] VITALS (31 sets, daily range): BP systolic 90–132; BP diastolic 55–83; PULSE 77–104; RESP 18–20; TEMP 37.2–37.8; O2SAT 91–98; BMI 28.1
--- NOTE | 2023-05-30 00:15 | PC.NURSE ---
Patient arrived to ICU at 2300. Patient is ventilated with propofol infusing at 15 mcg/kg/min. Weight is 79.52 on bed scale, propofol drip settings changed. Patient showing signs of pain with facial grimacing and muscular tensing with adjustments, patient started on fentanyl gtt per orders. Family is at bedside. CAMELIA Ward notified of troponin levels 0.26, and platelet count of 82. Patients current vent settings is A/CMV rate of 18, peep 5, FI02 45%.
[2023-05-30 01:17] LABS: Reflex Lactic (2 hrs) Add Lactic Reflex
--- NOTE | 2023-05-30 02:08 | PC.NURSE ---
0200 labs sent to lab
[2023-05-30 02:18] LABS: Lactic Acid Follow up (RFLX 2) 1.9 mmol/L (0.7-2.1)
[2023-05-30 02:32] LABS: Troponin I 0.28 ng/ml (0.00-0.034)
--- NOTE | 2023-05-30 02:32 | PC.NURSE ---
Critical Troponin of 0.28 reported to Ed. [employer]
--- NOTE | 2023-05-30 05:41 | PC.NURSE ---
Patient has been stable since admission to ICU. Patient has been resting comfortable on propofol and fentanyl. Patient responds to painful stimuli with facial grimacing and moving arms. Oral care has been provided every two hours. Weiss is draining adequate yellow clear urine. Heel protectors have been applied. VTE prophylaxis has been deferred due to low platelet count and no SCDS applied due to bilateral lower extremities 4+ pitting edema. Extremities are elevated. It is noted patient has skin tear to right forearm, and left knee dressing applied.
[2023-05-30 06:14] LABS: POC Glucose,Bedside 87 (70-110)
[2023-05-30 07:05] LABS: Basophils # 0.1 K/mm3 (0-0.2); Basophils % 0.6 % (0.1-2.0); Hematocrit 54.5 % (37.0-47.0); Hemoglobin 16.5 g/dL (12.2-16.2); Lymphocytes # 0.8 K/mm3 (0.7-4.5); Lymphocytes % 8.4 % (10-50); Mean Corpuscular HGB Conc 30.2 g/dL (31.8-35.4); Mean Corpuscular Volume 99.3 fl (81-99); Mean Platelet Volume 10.6 fl (7.4-10.4); Monocytes # 1.7 K/mm3 (0.1-1.0); Monocytes % 16.9 % (1.7-9.3); Neutrophils # 7.4 K/mm3 (1.8-7.8); Neutrophils % 74.1 % (37.0-80.0); Platelet Count 92 K/mm3 (142-424); Red Blood Count 5.49 M/mm3 (4.20-5.40); Red Cell Distribution Width 18.9 % (11.5-17.5); White Blood Count 9.9 K/mm3 (4.8-10.8)
[2023-05-30 07:08] LABS: Chloride 99 mmol/L (98-107); Potassium 3.6 mmoL/L (3.5-5.1); Sodium 136 mmol/L (136-145)
[2023-05-30 07:11] LABS: Alanine Aminotransferase 23 U/L (12-78); Albumin Level 2.3 g/dl (3.5-5.0); Alkaline Phosphatase 113 U/L (38-126); Anion Gap 7.6 mEq/L (5-15); Aspartate Amino Transferase 51 U/L (14-36); Bilirubin,Total 1.9 mg/dl (0.2-1.3); Blood Urea Nitrogen 41 mg/dl (7-17); Calcium 8.9 mg/dl (8.4-10.2); Carbon Dioxide 33 mmol/L (22.0-30.0); Creatinine Clearance Estimated 43 mL/min (50-200); Estimated Glomerular Filt Rate 29 ml/min (>60); GFR (African American) 35 ML/MIN (>60); Globulin 2.4 g/dL (1.3-3.2); Glucose 89 mg/dl (74-100); Total Protein,Serum 4.7 g/dl (6.3-8.2)
[2023-05-30 07:12] LABS: Magnesium 1.4 mg/dl (1.6-2.3)
[2023-05-30] MEDS: FUROSEMIDE 40MG/4ML VIAL 40 MG IV ×2 (08:10→15:50)
[2023-05-30] MEDS: propofoL 100 ML 5.40000000000000036 MG IV (08:10)
[2023-05-30 08:47] LABS: ABG Base Excess 5.4 mmol/L (-2.4-2.3); ABG HCO3 28.7 mmhg (22.0-26.0); ABG Oxygen Saturation 90 % (90-100); ABG PCO2 38.3 mmhg (35.0-45.0); ABG PH 7.49 mmol/L (7.35-7.45); ABG PO2 55.5 mmhg (80-100); ABG TCO2 29.8 mmhg (23-27)
--- NOTE | 2023-05-30 08:47 | HMH.PHAINT1 ---
Pharmacy Intervention Comments: MEDICATION RECONCILIATION COMPLETE USING EXTERNAL PHARMACY FILL HISTORY.
[2023-05-30 08:50] LABS: Allen's Test Patient Unable; Oxygen 45% %; PEEP 5; Tidal Volume 420; Vent Rate 18
[2023-05-30 08:51] LABS: Source Right Radial
[2023-05-30 11:11] LABS: POC Glucose,Bedside 88 (70-110)
[2023-05-30] MEDS: IPRATROPIUM/ALBUTEROL 3 ML NEB IH (12:26)
--- NOTE | 2023-05-30 12:29 | XR_ITS ---
PROCEDURE INFORMATION: Exam: XR Chest Exam date and time: 05/30/2023 1:11 PM Age: 57 years old Clinical indication: Device placement; Gi device; Other: Og tube; Additional info: Check og tube placement TECHNIQUE: Imaging protocol: Radiologic exam of the chest. Views: 1 view. COMPARISON: 1. CT ANGIO ABDOMEN PELVIS 05/29/2023 8:32 PM 2. CR XR CHEST PORTABLE 05/29/2023 8:42 PM FINDINGS: Tubes, catheters and devices: Orogastric tube tip and side port project at the proximal stomach. Endotracheal tube tip projects 7.3 cm above the terrence. Right internal jugular catheter tip projects at the superior vena cava/right atrial junction. Single lead right subclavian AICD, with lead tip projecting at the right ventricle. EKG leads. Lungs: Mild atelectasis in the lower lung [place]. Pleural spaces: Moderate right pleural effusion and small left pleural effusion. Heart/Mediastinum: Mild enlargement of the cardiac silhouette. Bones/joints: Unremarkable. IMPRESSION: 1. Orogastric tube tip and side port project at the proximal stomach. 2. Moderate right pleural effusion and small left pleural effusion. 3. Mild enlargement of the cardiac silhouette.
[2023-05-30 13:07] LABS: Benzodiazepines Screen,Urine Negative ng/ml (<200)
[2023-05-30 13:08] LABS: Amphetamine/Metha Screen,Urine Negative ng/ml (<1000); Barbiturates Screen,Urine Negative ng/ml (<200)
[2023-05-30 13:09] LABS: Cannabinoid Screen,Urine Negative ng/ml (<50)
[2023-05-30 13:10] LABS: Cocaine Screen,Urine Negative ng/ml (<300); Methadone Screen,Urine Negative ng/ml (<300)
[2023-05-30 13:11] LABS: Opiate Screen,Urine Negative ng/ml (<300)
[2023-05-30 13:12] LABS: Phencyclidine Screen,Urine Negative ng/ml (<25)
--- NOTE | 2023-05-30 13:40 | P.PN_ITS ---
Subjective *Date: 05/30/23 *Time: 13:40 Interval history: patient is intubated and sedated, patient partner at bedside, patient has been reportedly smoking 1PPD on 5/6 L O2 NC, patient has not been compliant per reports from family Exam Data for Last 24 hours Vital signs and Labs for Last 24 Hours: Temp Pulse Resp BP Pulse Ox O2 Del Method O2 Flow Rate 100.0 F H 92 H 18 112/72 92 L Mechanical Ventilation 45 05/30/23 13:00 05/30/23 13:00 05/30/23 13:00 05/30/23 13:00 05/30/23 13:00 05/30/23 13:00 05/30/23 01:00 FiO2 60 05/30/23 11:34 Laboratory Results - last 24 hr 05/29/23 12:39: Urine Opiates Screen Negative, Urine Methadone Screen Negative, Ur Barbituates Screen Negative, Ur Phencyclidine Scrn Negative, Ur Amphetamines Screen Negative, U Benzodiazepines Scrn Negative, Urine Cocaine Screen Negative, U Marijuana (THC) Screen Negative 05/29/23 17:10: WBC 5.1, RBC 3.08 L, Hgb 9.2 L, Hct 33.3 L, MCV 108.0 H, MCH 29.9, MCHC 27.7 L, RDW 19.5 H, Plt Count 57 L, MPV 12.2 H, Neut % (Auto) 82.7 H, Lymph % (Auto) 14.0, [place] % (Auto) 2.9, Eos % (Auto) 0.1, Baso % (Auto) 0.2, Neut # (Auto) 4.2, Lymph # (Auto) 0.7, [place] # (Auto) 0.2, Eos # (Auto) 0.0, Baso # (Auto) 0.0, Sodium 127 L, Potassium 4.0, Chloride 106, Carbon Dioxide 7 L*, Anion Gap 18.0 H, BUN 8, Creatinine 0.20 L, Estimated Creat Clear 436 H, Estimated GFR 365, Est GFR ( Amer) 441, Glucose 22 L*, Lactate 20.8 H, Calcium 5.7 L, Total Bilirubin 0.2, AST 11 L, ALT < 4 L, Alkaline Phosphatase 21 L, Troponin I < 0.01, NT-Pro-B Natriuret Pep 2250 H, Total Protein < 2.0 L, Albumin < 1.0 L, Globulin 1.0 L, Albumin/Globulin Ratio 1.0 L 05/29/23 18:20: Urine Color Patti, Urine Appearance Slightly cloudy, Urine pH 5.0, Ur Specific [place] >= 1.030, Urine Protein 3+, Urine Glucose (UA) Trace, Urine Ketones 1+, Urine Blood Negative, Urine Nitrate Positive, Urine Bilirubin 3+ A, Urine Urobilinogen 4.0, Ur Leukocyte Esterase Negative, Urine RBC None, Urine WBC Occasional, Ur Squamous Epith Cells Occasional, Urine Bacteria 2+ 05/29/23 19:30: VBG pH 7.07 L, VBG pCO2 23.8 L, VBG pO2 80.9 H, VBG HCO3 6.7 L, VBG Total CO2 7.4 L, VBG O2 Saturation 90.4 H, VBG Base Excess -23.5 L, VBG Lactic Acid 18.5 H 05/29/23 19:55: WBC 10.0 D, RBC 4.96 D, Hgb 16.1 D, Hct 50.9 H, MCV 102.6 H, MCH 32.5 H, MCHC 31.6 L, RDW 19.0 H, Plt Count 82 L D, MPV 10.4, Neut % (Auto) 81.0 H, Lymph % (Auto) 7.4 L, [place] % (Auto) 11.1 H, Eos % (Auto) 0.1, Baso % (Auto) 0.3, Neut # (Auto) 8.1 H, Lymph # (Auto) 0.7, [place] # (Auto) 1.1 H, Eos # (Auto) 0.0, Baso # (Auto) 0.0, PT 20.6 H, INR 2.00 H, APTT 32.7 H, Fibrinogen 158 L, Sodium 135 L, Potassium 4.2, Chloride 100, Carbon Dioxide 28, Anion Gap 11.2, BUN 43 H D, Creatinine 1.90 H D, Estimated Creat Clear 46, Estimated GFR 27 L, Est GFR ( Amer) 33 L D, Glucose 192 H D, Lactate 3.6 H, Calcium 9.1, Total Bilirubin 3.4 H, AST 54 H D, ALT 28 D, Alkaline Phosphatase 124, Lactate Dehydrogenase 429, Troponin I 0.16 H, NT-Pro-B Natriuret Pep 14244 H, Total Protein 5.2 L D, Albumin 2.8 L D, Globulin 2.4, Albumin/Globulin Ratio 1.2 05/29/23 20:00: Direct Antiglob Test Negative 05/29/23 21:03: Random Glucose 160 H, Troponin I 0.19 H 05/29/23 21:51: VBG pH 7.29 L, VBG pCO2 52.2 H, VBG pO2 25.8 L, VBG HCO3 24.5, VBG Total CO2 26.1, VBG O2 Saturation 45.1 L, VBG Base Excess -2.0, VBG Lactic Acid 6.3 H 05/29/23 23:10: Lactate 2.6 H, Troponin I 0.26 H 05/30/23 02:02: Lactate 1.9, Troponin I 0.28 H 05/30/23 06:07: POC Glucose 87 05/30/23 06:15: WBC 9.9, RBC 5.49 H, Hgb 16.5 H, Hct 54.5 H, MCV 99.3 H, MCH 30.0, MCHC 30.2 L, RDW 18.9 H, Plt Count 92 L, MPV 10.6 H, Neut % (Auto) 74.1, Lymph % (Auto) 8.4 L, [place] % (Auto) 16.9 H, Eos % (Auto) 0.0 L, Baso % (Auto) 0.6, Neut # (Auto) 7.4, Lymph # (Auto) 0.8, [place] # (Auto) 1.7 H, Eos # (Auto) 0.0, Baso # (Auto) 0.1, Sodium 136, Potassium 3.6, Chloride 99, Carbon Dioxide 33 H, Anion Gap 7.6, BUN 41 H, Creatinine 1.80 H, Estimated Creat Clear 43, Estimated GFR 29 L, Est GFR ( Amer) 35 L, Glucose 89 D, Calcium 8.9, Magnesium 1.4 L, Total Bilirubin 1.9 H, AST 51 H, ALT 23, Alkaline Phosphatase 113, Total Protein 4.7 L, Albumin 2.3 L D, Globulin 2.4, Albumin/Globulin Ratio 1.0 L 05/30/23 08:43: Specimen Source Right radial, O2 % 45%, ABG pH 7.49 H, ABG pCO2 38.3, ABG pO2 55.5 L, ABG HCO3 28.7 H, ABG Total CO2 29.8 H, ABG O2 Saturation 90, ABG Base Excess 5.4 H, Ever Test Patient unable, Vent Rate 18, Tidal Volume 420, PEEP 5 05/30/23 11:04: POC Glucose 88 I & O for Last 24 hours: Intake & Output 05/27/23 05/28/23 05/29/23 05/30/23 23:59 23:59 23:59 23:59 Intake Total 6.66 / 356.66 428.435 / 428.435 Output Total 1145 / 1145 Balance 6.66 / 356.66 -716.565 / -716.565 Weight 90 kg 79.52 kg Constitutional Comments: intubated and sedated *Routine HEENT Exam Head: Present normocephalic Eye: Present EOMI and PERRL ENT: Present mucous membranes moist *Routine Neck Exam Neck: Present supple; Absent lymphadenopathy *Routine Respiratory Exam Respiratory: Present respiratory distress and diminished air movement *Routine Cardiovascular Exam Cardiovascular: Present RRR *Routine Abdominal Exam Abdominal: Present soft and normoactive bowel sounds; Absent tenderness *Routine Extremities Exam Extremities: Absent cyanosis, clubbing or edema *Routine Skin Exam Skin: Present warm; Absent rash *Routine Neurological Exam Comments: intubated and sedated Assessment and Plan *Assessment and plan (1) Hypoxic respiratory failure: Status: Acute Qualifiers: Chronicity: acute on chronic Qualified Code(s): J96.21 - Acute and chronic respiratory failure with hypoxia Category: Medical Code(s): J96.91 - Respiratory failure, unspecified with hypoxia (2) Acute exacerbation of CHF (congestive heart failure): Status: Acute Qualifiers: Heart failure type: combined systolic and diastolic Qualified Code(s): I50.43 - Acute on chronic combined systolic (congestive) and diastolic (congestive) heart failure Category: Medical Code(s): I50.9 - Heart failure, unspecified (3) Cardiogenic shock: Status: Acute Category: Medical Code(s): R57.0 - Cardiogenic shock (4) On mechanically assisted ventilation: Status: Acute Category: Medical Code(s): Z99.11 - Dependence on respirator [ventilator] status (5) HFrEF (heart failure with reduced ejection fraction): Status: Acute Category: Medical Code(s): I50.20 - Unspecified systolic (congestive) heart failure (6) Ischemic cardiomyopathy with implantable cardioverter-defibrillator (ICD): Status: Acute Category: Medical Code(s): I25.5 - Ischemic cardiomyopathy; Z95.810 - Presence of automatic (implantable) cardiac defibrillator Plan 57-year-old female history of reported hypertension, hyperlipidemia, CHF with AICD in place currently on Eliquis, diabetes presenting with altered mental status. Patient seen status post intubation, therefore data is limited. Per Ed documentation, patient was reportedly found down, minimally responsive. EMS was called. Patient hypoxemic in the 70s when EMS arrived. Placed on BiPAP, saturations improved to the 90s. On arrival, patient pale, mottled, cyanotic, saturating about [address], GCS 3 and unresponsive, completely obtunded. Bedside ultrasound with plethoric IVC, hyperdynamic heart, free fluid in the abdomen. Patient with no pain response. Patient does have femoral and carotid pulses. Acute on chronic hypoxic respiratory failure: Acute decompensation of CHF. Suspected cardiogenic shock: status on mechanical vent on cont sedation. Propofol and fentanyl monitor BP for hypotension. Improved after dosis of lasix galindo inserted. Monitor strict I/Os on vanco. pharmacy to dose cultures pending repeat CMP/CBC daily cardiology and Pulmonolgy consult respiratory therapist to assist with care. pulmo toileting CTs reviewed. concerning for overloaded fluid. Anasarca. lasix BID HFrEF: initial bedside US showed reduced EF, wuth hemodynamic instability. may need formal ACHO. will deferred to cardiology for management. optimizing diuresis AICD in place On plavix and xarelto SCD for DVT ppx. On protonix for GI bleed protection Full code continue ventilator support, continue breathing treatments
--- OUTSIDE RECORDS SUMMARY | 2023-05-30 14:37 | XMS_ITS | Continuity of Care Document ---
Author Name Unknown Address [address] [place] [address] [phone] Organization [facility] Phone Care Team Providers Care Dowel Pointer Name Role Phone PHONG WILLIAM Primary Care KT VINCENT Unavailable KT VINCENT Admitting KT VINCENT Primary Attending ALLERGIES AND ADVERSE REACTIONS ALLERGIES AND ADVERSE REACTIONS Code System Allergy Substance Adverse Reaction Date Reaction (Severity) Comment Status Reported By Updated By No Known Allergies [id number] on April 19, 2021 9:38:14 PM [facility] FAMILY HISTORY RELATION: Father Status: LIVING SNOMED-CT Diagnosis Age At Onset Information not available RELATION: Mother Status: LIVING SNOMED-CT Diagnosis Age At Onset Information not available RESULTS Patient: REJI FARAH Date of : 1965 LABORATORY RESULTS Information is not available LABORATORY NARRATIVE RESULTS Information is not available RADIOLOGY RESULTS ORDER 100: LUMBAR 2 TO 3V (L OINC: [id number]) ORDER DATE: March 30, 2023 7:58:00 PM [facility] PERFORMING LAB: [address] [id number] Final Result Date: March 30, 2023 8:24:[address] [place] [address] Name: GAGAN MENDOZA Exam Date: 03/30/2023 : 1965 Age 57 years Gender: F Physician: KT VINCENT Facility: [facility] Facility HSV: Outpatient Exam: LUMBAR 2 TO 3V LUMBAR SPINE, 3 VIEWS HISTORY: Acute low back pain, recent fall. FINDINGS: No fracture is identified . Vertebral body heights are normal. There is mild levoscoliosis of the lumbar spine. There is accentuated lumbar spine lordosis. Disc spaces are well-maintained. There are cyph-pl-cztfbdqd facet degenerative changes. IMPRESSION: No acute fracture. Degenerative change. The films were reviewed, interpreted, and dictated by Dr. Jim Irwin Transcribed by Jacquelyn Connell PA-C Dictated By: ISADORA IRWIN Transcribed By: ISADORA IRWIN Transcribed On: 03/30/2023 3:24 PM Electronically signed by: ISADORA IRWIN 03/30/2023 Thank you for referring GAGAN MENDOZA to [facility]. Legally authenticated by EUGENIO Al MD 2023-03-30 15:24:57 ORDER 200: THORACIC 2V (LOIN C: [id number]) ORDER DATE: March 30, 2023 7:58:00 PM [facility] PERFORMING LAB: [address] [id number] Final Result Date: March 30, 2023 8:21:[address] [place] [address] Name: GAGAN MENDOZA Exam Date: 03/30/2023 : 1965 Age 57 years Gender: F Physician: KT VINCENT Facility: [facility] Facility HSV: Outpatient Exam: THORACIC 2V THORACIC SPINE, 3 views HISTORY: Acute mid back pain, recent fall. COMPARISON: None. FINDINGS: No fracture is seen. Vertebral body heights are normal. There is accentuated thoracic kyphosis. Mild multilevel degenerative changes are identified. Vertebral endplate alignment is preserved. There is a right chest wall ICD. IMPRESSION: Degenerative change without evidence of acute process. The films were reviewed, interpreted, and dictated by Dr. Jim Irwin Transcribed by Jacquelyn Connell PA-C Dictated By: ISADORA IRWIN Transcribed By: ISADORA IRWIN Transcribed On: 03/30/2023 3:21 PM Electronically signed by: ISADORA IRWIN 03/30/2023 Thank you for referring GAGAN MENDOZA to [facility]. Legally authenticated by EUGENIO Al MD 2023-03-30 15:21:47 PATHOLOGY NARRATIVE RESULTS Information is not available MICROBIOLOGY RESULTS No Micro Labs/Results Exist for Patient BLOOD ADMIN RESULTS Information is not available MEDICATIONS HOME MEDICATIONS Status RXNORM Medication Dose Route Frequency Dates Comments R eported By Updated By Drug Treatment Unknown DISCHARGE MEDICATIONS Status RXNORM Medication Dose Route Frequency Dates Comments Physic georgia Updated By No Discharge Medication Info rmation Available INPATIENT MEDICATIONS Status RXNORM Medication Dose Route Frequency Rate Quantity Dates Comments Physician Updated By No Inpatient Medication Info rmation Available SOCIAL HISTORY SOCIAL HISTORY SNOMED-CT Social History Element Description Effective Dates Offered Cessation Comment UpdatedBy [id number] Historical Tobacco smoking status Light Tobacco Smoker about 3 cigarettes per day [id number] on October 22, 2022 5:17:21 PM [facility] [id number] Historical Tobacco smoking status Current Every Day Smoker [id number] on April 19, 2021 9:38:02 PM [facility] SOCIAL HISTORY - Gender Sex: Female SOCIAL HISTORY - Sexual Behavior Sexual Orientation Gender Identity SNOMED-CT Description SNO MED -CT Description Activity Level No of Partners Partner Type UpdatedBy Information is not available HEALTH CONCERNS Problems Concern Status Health Concern problem infor mation not available. Smoking Status Status Years Used Consumed packs p er day Health Concern smoking histo ry information not available. Family History Concern Status Health Concern family histor y information not available. ENCOUNTERS ENCOUNTER INFORMATION Reason for Visit M99.59 Admission March 30, 2023 7:47:[address] [address] Discharge March 30, 2023 7:47:00 PM [facility] DISCHARGED TO HOME OR SELF CARE ENCOUNTER DIAGNOSES Notes information is not natalie ilable. Code System Diagnosis Onset Date Diagnosis information is not available. 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 OTHER REGIONS [id number] on March 31, 2023 12:42:03 PM [facility] M99.59 ICD10 INTERVERTEBRAL D ISC STENOSIS OF NEURAL CANAL OF ABDOMEN AND OTHER REGIONS [id number] on March 31, 2023 12:42:03 PM [facility] CARE TEAM Care Dowel Pointer Role PHONG WILLIAM Primary Care KT VINCENT Referring KT VINCENT Admitting KT VINCENT Primary Attending CARE TEAM CARE manufacturing associate Role on Team Status Start Date End Date Update d By CARLTON RAMOS PA-C Referring normal March 30, 2023 5:00:00 AM [place] March 30, 2023 5:00:00 AM UT [id number] on March 30, 2023 7:49:08 PM [place] CARLTON RAMSO PA-C Attending normal March 30, 2023 5:00:00 AM UT March 30, 2023 5:00:00 AM UT [id number] on March 30, 2023 7:49:08 PM [place] CARLTON RAMOS PA-C Admitting normal March 30, 2023 5:00:00 AM UT March 30, 2023 5:00:00 AM [place] [id number] on March 30, 2023 7:49:08 PM [facility] NATALIIA HARMON PCP normal March 30, 2023 5:00:00 AM UT March 30, 2023 5:00:00 AM UT [id number] on March 30, 2023 7:49:08 PM [facility]
--- OUTSIDE RECORDS SUMMARY | 2023-05-30 14:37 | XMS_ITS | Clinical Summary ---
Author Name Unknown Address [address] [place] [address] Phone Organization [facility] Address [address] [place] [address] Phone Care Team Providers Care Die Repair Machinist Name Role Phone Fracisco DALTON, Gilson Begum Unavailable [ ] Conditions or Problems Problem Name Problem Code Onset Date Status Entry Date Provider Comment Standard Description Annotate Dermatitis due to drug AND/OR medicine taken internally [id number] (SNOMED CT) 08/21 Active 08/21 Gilson Yap MD Dermatitis caused by drug AND/OR medicine taken internally 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, implants and grafts, subsequent encounter(s) T82.837D (ICD-10-CM ) 07/26 Active 07/26 Sherri Herndon 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, implants and grafts, subsequent encounter Cardiac device/implan t/graft, infection/inf lammatory reaction, subsequent encounter(s) T82.7xxD (ICD-10-CM ) 07/26 Active 07/26 Sherri Herndon Infection and inflammatory reaction due to other cardiac and vascular devices, implants and grafts, subsequent encounter Cellulitis/wo und infection, chest wall 06835220 (SNOMED CT) 07/26 Active 07/26 Sherri Yanick Cellulitis of chest wall Ischemic Cardiomyopath y 327069136 (SNOMED CT) 07/26 Active 07/26 Sherri Herndon Generalized ischemic myocardial dysfunction Nicotine dependence, cigarettes 94137422 (SNOMED CT) 07/26 Active 07/26 Sherri Herndon Cigarette smoker COPD 62163957 (SNOMED CT) 07/26 Active 07/26 Sherri Herndon Chronic obstructive pulmonary disease Acute respiratory failure with hypoxia 00667417 (SNOMED CT) 07/26 Active 07/26 Sherri Herndon Acute respiratory failure Hypoalbuminem ia 971236161 (SNOMED CT) 07/26 Active 07/26 Sherri Herndon Hypoalbuminemia Hypocalcemia 9429397 (SNOMED CT) 07/26 Active 07/26 Sherri Herndon Hypocalcemia Thrombocytope delia, secondary D69.59 (ICD-10-CM ) 07/26 Active 07/26 Sherri Herndon Other secondary thrombocytopenia Hyponatremia 95842280 (SNOMED CT) 07/26 Active 07/26 Sherri Herndon Hyponatremia Medications Medication Instructions Start Date Stop Date Generic Name NDC Provider HYDROCODONE-ROSE TAMINOPHEN 5-325 MG TABS 1 Tab, as needed, Oral, every 8 hours hydrocodone-acet aminophen [id number] Faina Cantu CARVEDILOL 12.5 MG TABS 1 Tab, Oral, twice a day carvedilol 66032603473 Faina Cantu CEFDINIR 300 MG CAPS 1 Cap, Oral, every 12 hours cefdinir 80966272924 Faina Cantu DOXYCYCLINE HYCLATE 100 MG CAPS 1 Cap, Oral, twice a day doxycycline hyclate 83272353922 Faina Cantu FLORASTOR 250 MG CAPS 1 Cap, Oral, twice a day saccharomyces boulardii 31490402308 Faina Cantu FLUTICASONE PROPIONATE 50 MCG/ACT SUSP 2 Hope, as needed, Nasal, Daily fluticasone propionate 98304741029 Faina Cantu FOLIC ACID 1 MG TABS 1 Tab, Oral, Daily folic acid 47154807757 Faina Cantu FUROSEMIDE 20 MG TABS 1 Tab, Oral, Daily furosemide 40789207955 Faina Cantu GABAPENTIN 600 MG TABS 1 Tab, Oral, three times a day gabapentin 53403460411 Faina Cantu LISINOPRIL 20 MG TABS 1 Tab, Oral, At Bedtime lisinopril 20590352655 Faina Cantu NICOTINE STEP 1 21 MG/24HR PT24 1 Patch, TransDermal, Daily nicotine 92931403447 Faina Cantu PANTOPRAZOLE SODIUM 40 MG TBEC 1 Tab, Oral, Daily pantoprazole 47269804112 Faina Cantu POTASSIUM CHLORIDE ER 20 MEQ CR-TABS 1 Tab, Oral, Daily potassium chloride 11533059707 Faina Cantu TOPIRAMATE 25 MG TABS 1 Tab, Oral, At Bedtime topiramate 55460132714 Faina Cantu VITAMIN D (ERGOCALCIFEROL ) 1.25 MG (25591 UT) CAPS 1 Cap, Oral, Weekly ergocalciferol (vitamin d2) 64202793218 Faina Cantu Medications Administered No information available. Allergies, Adverse Reactions, Alerts No information available. Results Date Name Value Unit Range Flag Description Lab Report: CBC WITH AUTO DI FFERENTIAL ZZ-GE-unk 0.0 /100 WBC 0.0-0.2 GE use only - for [employer] import when terms are not otherwise specified IMMATUREGRAN 0.02 10*3/MM3 0.00-0.05 Immature granulocytes [#/volume] in Blood BASO# 0.08 10*3/mm3 0.00-0.20 Basophils [#/vol ume] in Blood EOS ABSLT 0.22 10*3/uL 0.00-0.40 Eosinophi ls [#/volume] in Blood MONOSCT AUTO 0.71 10*3/uL 0.10-0.90 Monocy elmo [#/volume] in Blood by Automated count LYMPHCT AUTO 2.89 10*3/mm3 0.70-3.10 Lymph ocytes [#/volume] in Blood by Automated count ABS NEUTROPH 4.61 10*3/uL 1.70-7.00 Neutro phils [#/volume] in Blood IMM GRANU % 0.2 % 0.0-0.5 Immature granulocytes/100 leukocytes in Blood % EOS AUTO 2.6 % 0.3-6.2 Eosinophil s/100 leukocytes in Blood by Automated count MONOCYTE % 8.3 % 5.0-12.0 Monocytes /100 leukocytes in Blood by Automated count LYMPHOCY BF 33.9 % 19.6-45.3 lymphoc ytes as percent of body fluid leukocytes NEUTROP BF 54.1 % 42.7-76.0 Neutroph ils/100 leukocytes in Body fluid PLATELETS 153 10*3/mm3 140-450 Platelets [#/volume] in Blood by Automated count RDW_ 14.8 12.3-15.4 RDW, no uni ts MCHC 32.2 G/DL 31.5-35.7 MCHC [Mass/ volume] by Automated count MCH 31.6 pg 26.6-33.0 MCH [Entiti c mass] by Automated count MCV 98.4 fL 79.0-97.0 H MCV [Entiti c volume] by Automated count HCT 48.5 % 34.0-46.6 H Hematocrit [Volume Fraction] of Blood by Automated count HGB 15.6 g/dL 12.0-15.9 Hemoglobin [Mass/volume] in Blood RBC 4.93 10*6/mm3 3.77-5.28 Erythrocyt es [#/volume] in Blood by Automated count WBC 8.53 10*3/mm3 3.40-10.8 0 Leukocytes [#/volume] in Blood by Automated count Office Visit: room 4 ORALTOBACUSE Unknown Tobacco smoking status CIGARET SMKG yes Tobacco smoking status SMOK STATUS Current every day smoker Tobacco smoking status MEDS REVIEW Done Documenta tion of current medications (procedure) Lab Report: SEDIMENTATION RA TE ESR 25 mm/h 0-30 Erythrocyte sedimentation rate by Westergren method Lab Report: C-REACTIVE PROTE IN CRP 0.32 mg/dL 0.00-0.50 C reactive protein [Mass/volume] in Serum or Plasma Lab Report: COMPREHENSIVE ME TABOLIC PANEL ANIONGAP 8.0 mmol/L 5.0-15.0 anion gap, serum BUN/CREAT 20.8 7.0-25.0 Urea nitrogen/Creatinine [Mass Ratio] in Serum or Plasma BILI TOTAL 0.3 mg/dL 0.0-1.2 Bilirubin. total [Mass/volume] in Serum or Plasma ALK PHOS 152 U/L 39-117 H Alkaline sophy sphatase [Enzymatic activity/volume] in Blood SGOT (AST) 28 U/L 1-32 Aspartate aminotransferase [Enzymatic activity/volume] in Serum or Plasma SGPT (ALT) 28 U/L 1-33 Alanine aminotransferase [Enzymatic activity/volume] in Serum or Plasma ALBUMIN 4.10 g/dL 3.50-5.20 Albumin [Mass/volume] in Serum or Plasma PROTEIN, TOT 7.3 g/dL 6.0-8.5 Protein [Mass/volume] in Serum or Plasma CALCIUM 10.6 mg/dL 8.6-10.5 H Calcium [Moles/volume] in Serum or Plasma CO2 32.0 mmol/L 22.0-29.0 H Carbon diox brendon, total [Moles/volume] in Venous blood CHLORIDE 101 mmol/L 98-107 Chloride [Moles/volume] in Serum or Plasma POTASSIUM 4.6 mmol/L 3.5-5.2 Potassium [Moles/volume] in Serum or Plasma SODIUM 141 mmol/L 136-145 Sodium [Moles/volume] in Serum or Plasma CREATININE 0.77 mg/dL 0.57-1.00 Creatini ne [Mass/volume] in Serum or Plasma BUN 16 mg/dL 6-20 Urea nitrogen [Mass/volume] in Serum or Plasma GLUCOSE SER 95 mg/dL 65-99 Glucose [Mass/volume] in Serum or Plasma Plan of Care Type Date Detail Pending order STAT Labs Pending order CMP Pending order CBC with Differe ntial Pending order C- reactive prot ein Pending order Continue oral an tibiotics Procedures Code Procedure Name Date Entry Date CPT-sl STAT Labs CPT-02136 CMP [id number] CBC with Differential 2021 CPT-78762 C- reactive protein CPT-Cooral Continue oral antibiotics 20 31/07/21 Vital Signs Date Name Value Unit Description BMI (Body Mass Index) 22.92 kg/m2 Bod y Mass Index (Ratio) Body Temperature 96.9 [degF] temperat ure E&M BP Diastolic 68 mm[Hg] blood pressu re, diastolic BP Systolic 100 mm[Hg] blood pressur e, systolic Heart Rate 72 /min pulse rate Height 66 [in_us] height E&M Respiratory Rate 16 /min respirat ory rate E&M Weight Measured 142 [lb_av] weight E& M Immunizations No information available. Advance Directives Directive Description Start Date NO DIRECTIVES ESTABLISHED AT THIS TIME
--- OUTSIDE RECORDS SUMMARY | 2023-05-30 14:37 | XMS_ITS | Continuity of Care Document ---
Author Name Unknown Address [address] [place], [place] [id number] Organization [facility] Phone Care Team Providers Care Sulfuric Acid Plant Supervisor Name Role Phone PHONG WILLIAM Primary Care KT VINCENT Unavailable KT VINCENT Admitting KT VINCENT Primary Attending ALLERGIES AND ADVERSE REACTIONS ALLERGIES AND ADVERSE REACTIONS Code System Allergy Substance Adverse Reaction Date Reaction (Severity) Comment Status Reported By Updated By No Known Allergies [id number] on April 19, 2021 9:38:14 PM [facility] FAMILY HISTORY RELATION: Father Status: LIVING SNOMED-CT Diagnosis Age At Onset Information not available RELATION: Mother Status: LIVING SNOMED-CT Diagnosis Age At Onset Information not available TREATMENT PLAN DISCHARGE MEDICATIONS Status RXNORM Medication Dose Route Frequency Dates Comments U pdated By Patient discharge medication information is not available. PATIENT OPEN ORDERS Code System Description Frequency Occurrences Priority [place] [id number] [facility] Spine Lumbar X-ray 2 or 3 views ONE TIME 0 Routine March 30, 2023 7:58:00 PM [facility] CARLTON RAMOS PA-C [id number] on March 30, 2023 7:58:00 PM [facility] [id number] [facility] Spine Thoracic X-ray 2 views ONE TIME 0 Routine March 30, 2023 7:58:00 PM [facility] CARLTON RAMOS PA-C [id number] on March 30, 2023 7:58:00 PM [facility] SCHEDULED PROCEDURES Code System Description Status Scheduled Date Upd ated By Patient scheduled procedure information is not available. MEDICATIONS HOME MEDICATIONS Status RXNORM Medication Dose [...] Description Effective Dates Offered Cessation Comment UpdatedBy [id number] Historical Tobacco smoking status Light Tobacco Smoker about 3 cigarettes per day [id number] on October 22, 2022 5:17:21 PM [facility] [id number] Historical Tobacco smoking status Current Every Day Smoker [id number] on April 19, 2021 9:38:02 PM [facility] SOCIAL HISTORY - Gender Sex: Female SOCIAL [...] M99.59 Admission March 30, 2023 7:47:[address] [address] Discharge March 30, 2023 7:47:00 PM [facility] DISCHARGED TO HOME OR SELF CARE ENCOUNTER DIAGNOSES Notes information is not natalie ilable. Code System Diagnosis Onset Date Diagnosis information is not available. ABSTRACT DIAGNOSES Code System Diagnosis Updated By Abstract Diagnosis informati on is not available. CARE TEAM Care Sulfuric Acid Plant Supervisor Role PHONG WILLIAM Primary Care KT VINCENT Referring TK VINCENT Admitting KT VINCENT Primary Attending CARE TEAM CARE bad cloth checker Role on Team Status Start Date End Date Update d By CARLTON RAMOS PA-C Referring normal March 30, 2023 5:00:00 AM [facility] March 30, 2023 7:47:00 PM [facility] [id number] on March 30, 2023 7:49:08 PM [facility] CARLTON RAMOS PA-C Attending normal March 30, 2023 5:00:00 AM [facility] March 30, 2023 7:47:00 PM [facility] [id number] on March 30, 2023 7:49:08 PM [facility] CARLTON RAMOS PA-C Admitting normal March 30, 2023 5:00:00 AM [facility] March 30, 2023 7:47:00 PM [facility] [id number] on March 30, 2023 7:49:08 PM [facility] NATALIIA HARMON PCP normal March 30, 2023 5:00:00 AM [facility] March 30, 2023 7:47:00 PM [facility] [id number] on March 30, 2023 7:49:08 PM [facility]
--- NOTE | 2023-05-30 16:04 | PC.NURSE ---
VS stable, patient on vent 60% fio2 and peep 8, tolerating well. Patient turned q2 and oral care administered every 2 hours. Fentanyl and propofol at 10 mcg/hr, no titration needed. Wound on coccyx open to air, pressure offloaded with wedge, pressure offloaded of heels with pillows and heel protector pads in place.
[2023-05-30 17:03] LABS: POC Glucose,Bedside 102 (70-110)
--- NOTE | 2023-05-30 18:03 | ECG_ITS ---
APPROVED REPORT Exam: Resting ECG HR:79 bpm ECG Measurements Heart Rate 79 AXES SC 168 P 79 QRSd 90 QRS 89 QT 365 T 50 QTc 400 Conclusion SINUS RHYTHM POSSIBLE LEFT ATRIAL ENLARGEMENT [-0.1mV P-WAVE IN V1/V2] LOW QRS VOLTAGE [QRS DEFLECTION < 0.5/1.0 mV IN LIMB/CHEST LEADS] POSSIBLE RIGHT VENTRICULAR CONDUCTION DELAY [RSR (QR) IN V1/V2] SEPTAL MYOCARDIAL INFARCTION , OF INDETERMINATE AGE [40+ ms Q WAVE IN V1/V2] No acute ischemic changes Electronically signed by : LEYDI PARIKH, 05/30/2023 22:38:04
[2023-05-30] MEDS: PANTOPRAZOLE 40MG VIAL 40 MG IV (20:37)
[2023-05-30] MEDS: propofoL 100 ML 8.09999999999999964 MG IV (23:47)
[2023-05-31] VITALS (28 sets, daily range): BP systolic 82–101; BP diastolic 42–60; PULSE 80–99; RESP 18; TEMP 36.6–37.8; O2SAT 80–95; BMI 29.2
--- NOTE | 2023-05-31 01:32 | PC.NURSE ---
AFTER READING PT'S CHART, THIS RN NOTED THAT DAYSHIFT CHARTED THAT THIS PT DID NOT HAVE PEDAL PULSES; PEDAL PULSES ARE NOTED AND PALPABLE, BUT DIFFICULT TO FEEL AT TIMES D/T +4 EDEMA IN BILAT FEET. THIS RN USED DOPPLER TO VERIFY THIS PT DOES HAVE PEDAL PULSES; PEDAL PULSES NOTED WITH PALPATION AND DOPPLER PER THIS RN; PEDAL PULSES ARE STRONG.
--- NOTE | 2023-05-31 01:36 | PC.NURSE ---
@ 2100, 05/30/23 THIS RN INCREASED TF TO GOAL OF 40ML D/T NO RESIDUALS NOTED AND PT TOLERATING TF WELL.
[2023-05-31 05:49] LABS: POC Glucose,Bedside 147 (70-110)
--- NOTE | 2023-05-31 06:31 | PC.NURSE ---
SPOT WELDER LINE DOING BEDSIDE ROUNDS AND NOTIFIED BY THIS RN OF PT SLOWLY BECOMING HYPOTENSIVE AND SEDATION TITRATED DOWN; SPOT WELDER LINE SAID TO WATCH BP AND LASIX ORDER WILL BE CHANGED TO DAILY INSTEAD OF BID SINCE PT IS NEGATIVE ON I/O'S
[2023-05-31] MEDS: VANCOMYCIN/WATER FOR INJ (PEG) 1.5 GM/300 ML PIGGYBACK IV (08:30)
[2023-05-31] MEDS: FUROSEMIDE 40MG/4ML VIAL 40 MG IV (08:31)
[2023-05-31] MEDS: FENTANYL CITRATE/PF 1,000 MCG in 0.9 % SODIUM CHLORIDE 80 ML 5 MCG IV (08:34)
[2023-05-31] MEDS: CEFEPIME HCL 2 GM in 0.9 % SODIUM CHLORIDE 100 ML IV ×2 (10:00→20:46)
[2023-05-31 11:42] LABS: POC Glucose,Bedside 140 (70-110)
[2023-05-31] MEDS: propofoL 100 ML 5.40000000000000036 MG IV (13:34)
--- NOTE | 2023-05-31 15:26 | EXP.PN ---
Subjective *Date: 05/31/23 *Time: 15:26 Interval history: patient is intubated and sedated, patient has been reportedly smoking 1PPD on 5/6 L O2 NC, patient has not been compliant per reports from family Exam Data for Last 24 hours Vital signs and Labs for Last 24 Hours: Temp Pulse Resp BP Pulse Ox O2 Del Method O2 Flow Rate 99.8 F H 94 H 18 89/56 L 93 L Mechanical Ventilation 45 05/31/23 14:00 05/31/23 14:00 05/31/23 14:25 05/31/23 14:00 05/31/23 14:25 05/31/23 14:00 05/30/23 01:00 FiO2 60 05/31/23 14:25 Laboratory Results - last 24 hr 05/30/23 16:56: POC Glucose 102 05/31/23 05:40: POC Glucose 147 H 05/31/23 11:28: POC Glucose 140 H I & O for Last 24 hours: Intake & Output 05/28/23 05/29/23 05/30/23 05/31/23 23:59 23:59 23:59 23:59 Intake Total 6.66 / 356.66 547.968 / 144.502 4113.825 / 1017.825 Output Total 3580 / 3580 4530 / 4530 Balance 6.66 / 356.66 -3032.032 / -3032.032 -3512.175 / -3512.175 Weight 90 kg 79.52 kg 82.5 kg Constitutional Comments: intubated and sedated *Routine HEENT Exam Head: Present normocephalic Eye: Present EOMI and PERRL ENT: Present mucous membranes moist *Routine Neck Exam Neck: Present supple; Absent lymphadenopathy *Routine Respiratory Exam Respiratory: Present respiratory distress and diminished air movement *Routine Cardiovascular Exam Cardiovascular: Present RRR *Routine Abdominal Exam Abdominal: Present soft and normoactive bowel sounds; Absent tenderness *Routine Extremities Exam Extremities: Absent cyanosis, clubbing or edema *Routine Skin Exam Skin: Present warm; Absent rash *Routine Neurological Exam Comments: intubated and sedated Assessment and Plan *Assessment and plan (1) Hypoxic respiratory failure: Status: Acute Qualifiers: Chronicity: acute on chronic Qualified Code(s): J96.21 - Acute and chronic respiratory failure with hypoxia Category: Medical Code(s): J96.91 - Respiratory failure, unspecified with hypoxia (2) Acute exacerbation of CHF (congestive heart failure): Status: Acute Qualifiers: Heart failure type: combined systolic and diastolic Qualified Code(s): I50.43 - Acute on chronic combined systolic (congestive) and diastolic (congestive) heart failure Category: Medical Code(s): I50.9 - Heart failure, unspecified (3) Cardiogenic shock: Status: Acute Category: Medical Code(s): R57.0 - Cardiogenic shock (4) On mechanically assisted ventilation: Status: Acute Category: Medical Code(s): Z99.11 - Dependence on respirator [ventilator] status (5) HFrEF (heart failure with reduced ejection fraction): Status: Acute Category: Medical Code(s): I50.20 - Unspecified systolic (congestive) heart failure (6) Ischemic cardiomyopathy with implantable cardioverter-defibrillator (ICD): Status: Acute Category: Medical Code(s): I25.5 - Ischemic cardiomyopathy; Z95.810 - Presence of automatic (implantable) cardiac defibrillator Plan 57-year-old female history of reported hypertension, hyperlipidemia, CHF with AICD in place currently on Eliquis, diabetes presenting with altered mental status. Patient seen status post intubation, therefore data is limited. Per Ed documentation, patient was reportedly found down, minimally responsive. EMS was called. Patient hypoxemic in the 70s when EMS arrived. Placed on BiPAP, saturations improved to the 90s. On arrival, patient pale, mottled, cyanotic, saturating about [address], GCS 3 and unresponsive, completely obtunded. Bedside ultrasound with plethoric IVC, hyperdynamic heart, free fluid in the abdomen. Patient with no pain response. Patient does have femoral and carotid pulses. Acute on chronic hypoxic respiratory failure: Acute decompensation of CHF. Suspected cardiogenic shock: on mechanical vent on cont sedation. Propofol and fentanyl monitor BP for hypotension. Improved after dosis of lasix galindo inserted. Monitor strict I/Os on vanco, cefepime pharmacy to dose cultures pending repeat CMP/CBC daily cardiology and Pulmonolgy consult respiratory therapist to assist with care. pulmo toileting CTs reviewed. concerning for overloaded fluid. Anasarca. lasix BID HFrEF: initial bedside US showed reduced EF, wuth hemodynamic instability. may need formal ACHO. will deferred to cardiology for management. optimizing diuresis AICD in place On plavix and xarelto SCD for DVT ppx. On protonix for GI bleed protection Full code continue ventilator support, continue breathing treatments, added on Cefepime, vancomycin, soft BP, has good UOP, continue diuresis with lasix, discussed with pulmonary
[2023-05-31 17:01] LABS: POC Glucose,Bedside 112 (70-110)
--- NOTE | 2023-05-31 17:38 | PC.NURSE ---
Patient remained on 60% fio2, peep 8 on ventilator. ET tube 22 at lip. No residuals noted from og tube. Tube feeding at goal rate 40. VS stable. Patient turned q2. ORal care provided q2. Lung sounds fine crackles at bases and wheezing noted. Patient able to follow simple commands and make eye contact. No grimacing and patient able to tolerate et tube.
[2023-05-31] MEDS: PANTOPRAZOLE 40MG VIAL 40 MG IV (20:46)
[2023-06-01] VITALS (31 sets, daily range): BP systolic 89–128; BP diastolic 43–81; PULSE 66–92; RESP 17–18; TEMP 37.3–37.7; O2SAT 90–97; BMI 28.0
[2023-06-01 05:45] LABS: MANUAL DIFFERENTIAL MANUAL DIFFERENTIAL (MANUAL DIFF)
[2023-06-01 05:47] LABS: Basophils # 0.1 K/mm3 (0-0.2); Basophils % 0.6 % (0.1-2.0); Eosinophils % 0.3 % (0.1-12.0); Hematocrit 49.3 % (37.0-47.0); Hemoglobin 14.8 g/dL (12.2-16.2); Lymphocytes # 0.9 K/mm3 (0.7-4.5); Lymphocytes % 9.4 % (10-50); Mean Corpuscular Hemoglobin 29.5 pg (27.0-31.2); Mean Corpuscular Volume 98.2 fl (81-99); Mean Platelet Volume 10.9 fl (7.4-10.4); Monocytes # 1.5 K/mm3 (0.1-1.0); Monocytes % 15.7 % (1.7-9.3); Neutrophils # 6.8 K/mm3 (1.8-7.8); Platelet Count 74 K/mm3 (142-424); Red Blood Count 5.02 M/mm3 (4.20-5.40); Red Cell Distribution Width 19.1 % (11.5-17.5); White Blood Count 9.3 K/mm3 (4.8-10.8)
[2023-06-01 05:50] LABS: Chloride 97 mmol/L (98-107); Potassium 3.4 mmoL/L (3.5-5.1); Sodium 138 mmol/L (136-145)
[2023-06-01 05:53] LABS: Blood Urea Nitrogen 36 mg/dl (7-17); Creatinine Clearance Estimated 77 mL/min (50-200); Estimated Glomerular Filt Rate 57 ml/min (>60); GFR (African American) 69 ML/MIN (>60)
[2023-06-01 05:54] LABS: Calcium 8.2 mg/dl (8.4-10.2); Glucose 110 mg/dl (74-100)
[2023-06-01 06:01] LABS: Anion Gap 5.4 mEq/L (5-15); Carbon Dioxide 39 mmol/L (22.0-30.0)
[2023-06-01] MEDS: FENTANYL CITRATE/PF 1,000 MCG in 0.9 % SODIUM CHLORIDE 80 ML 5 MCG IV (06:07)
[2023-06-01] MEDS: IPRATROPIUM/ALBUTEROL 3 ML NEB IH ×5 (06:20→21:42)
--- NOTE | 2023-06-01 07:56 | EXP.PHA.CONS ---
Pharmacy Consult Date: 06/01/23 Time: 07:57 Referring provider: DR SOLIS Reason for Consult:: VANCOMYCIN DOSING CONSULT Allergies Allergy/AdvReac Type Severity Reaction Status Date / Time No Known Allergies Allergy Verified 01/21/18 14:48 Home Medications Medication Instructions Recorded Confirmed Type lisinopril 10 mg tablet 10 mg PO DAILY 04/06/17 05/30/23 History apixaban 5 mg tablet (Eliquis) 5 mg PO BID 05/29/23 05/30/23 History clopidogrel 75 mg tablet 75 mg PO DAILY 05/29/23 05/30/23 History folic acid 1 mg tablet 1 mg PO DAILY 05/29/23 05/30/23 History furosemide 20 mg tablet 20 mg PO AM 05/29/23 05/30/23 History metoprolol succinate 50 mg 50 mg PO HS 05/29/23 05/30/23 History tablet,extended release 24 hr montelukast 10 mg tablet 10 mg PO PM 05/29/23 05/30/23 History pantoprazole 40 mg tablet,delayed 40 mg PO DAILY 05/29/23 05/30/23 History release potassium chloride 10 mEq 10 meq PO AM 05/29/23 05/30/23 History capsule,extended release topiramate 25 mg tablet 25 mg PO HS 05/29/23 05/30/23 History gabapentin 600 mg tablet 600 mg PO Q8H 05/30/23 05/30/23 History rosuvastatin 10 mg tablet 10 mg PO HS 05/30/23 05/30/23 History New Prescriptions to Start Prescriptions: Height: 1.68 m Weight: 79.197 kg Laboratory Results:: Laboratory Results - last 24 hr 05/31/23 11:28: POC Glucose 140 H 05/31/23 16:37: POC Glucose 112 H 06/01/23 05:40: WBC 9.3, RBC 5.02, Hgb 14.8, Hct 49.3 H, MCV 98.2, MCH 29.5, MCHC 30.0 L, RDW 19.1 H, Plt Count 74 L, MPV 10.9 H, Neut % (Auto) 74.0, Lymph % (Auto) 9.4 L, [place] % (Auto) 15.7 H, Eos % (Auto) 0.3, Baso % (Auto) 0.6, Neut # (Auto) 6.8, Lymph # (Auto) 0.9, [place] # (Auto) 1.5 H, Eos # (Auto) 0.0, Baso # (Auto) 0.1, Sodium 138, Potassium 3.4 L, Chloride 97 L, Carbon Dioxide 39 H, Anion Gap 5.4, BUN 36 H, Creatinine 1.00 D, Estimated Creat Clear 77, Estimated GFR 57 L, Est GFR ( Amer) 69 D, Glucose 110 H, Calcium 8.2 L Medical History: Medical History (Updated 05/30/23 @ 03:06 by Champ Ramey APRN) ICD (implantable cardioverter-defibrillator) in place Hypertension Hyperlipemia Claudication Chronic respiratory failure Left ventricular thrombosis Ischemic cardiomyopathy with implantable cardioverter-defibrillator (ICD) Venous (peripheral) insufficiency HFrEF (heart failure with reduced ejection fraction) Seizure Assessment and Plan Assessment and plan all Dx Assessment and Plan for all problems:: Pharmacokinetic dosing service Objective: Age: 57 yo Serum creatinine: 1 mg/dL Height: 66.1 Inches Weight (kg): 79.197 Diagnosis: SHOCK/CHF/SUSPECTED INFECTION Assessment: IBW (kg): 59.53 Dosing wt(kg): 79.197 Estimated Creatinine clearance (ml/min): 57.6 CRCL method: Cockcroft and Gault using ibw(default). Drug selected: Vancomycin Loading dose (mg): Vd (liters): 55.4 (factor used: 0.7 L/kg) Jose Alejandro (hr-1): 0.052 Half life (hrs): 13.33 CLvanco=?? 2.881 L/hr Recommended dose: 1500 mg Interval: 24 hrs Infusion time (hrs): 2.0 Predicted peak (mcg/mL): 36.1 Predicted trough (mcg/mL): 11.50 Total body weight is being used for vancomycin dosing. Recommendations: Give Vancomycin 1500 mg q 24 hrs with an expected Cpeak of 36.1 mcg/ml and an expected Ctrough of 11.50 mcg/ml AUC 0-24 /GIANCARLO Data: GIANCARLO 0.5 mcg/mL:?? AUC/GIANCARLO:? 1041.3 GIANCARLO 1.0 mcg/mL:?? AUC/GIANCARLO:? 520.7 --------- GIANCARLO 1.5 mcg/mL:?? AUC/GIANCARLO:? 347.1 GIANCARLO 2.0 mcg/mL:?? AUC/GIANCARLO:? 260.3 Thank you for the consult
[2023-06-01 07:59] LABS: Lymphocytes % 11 % (10-50); Monocytes % 17 % (2-9); Neutrophils % 71 % (42-76); Nucleated Red Blood Cells 3; Platelet Estimate Moderate Decrease; RBC Morphology Normal; Total Cells Counted 100
--- NOTE | 2023-06-01 08:00 | XR_ITS ---
FINAL REPORT CLINICAL HISTORY: intubated COMPARISON: 05/30/2023 FINDINGS: The heart size is mildly enlarged. The patient is intubated. Endotracheal tube tip is 7 cm superior to the terrence. There is a right IJ central venous catheter with the tip at the junction of the SVC and right atrium. A right-sided pacemaker is present. There are small bilateral pleural effusions. There is mild bibasilar atelectasis. There is no pneumothorax. There is no osseous abnormality. IMPRESSION: Small bilateral pleural effusions with mild bibasilar atelectasis. Endotracheal tube tip 7 cm to prior to the terrence. Reviewed, Interpreted and Dictated by Clark Diggs MD Transcribed by Katy Parsons Authenticated and [facility]
[2023-06-01 08:12] LABS: ABG Base Excess 11.8 mmol/L (-2.4-2.3); ABG HCO3 35.2 mmhg (22.0-26.0); ABG Oxygen Saturation 97 % (90-100); ABG PCO2 47.1 mmhg (35.0-45.0); ABG PH 7.49 mmol/L (7.35-7.45); ABG PO2 88.8 mmhg (80-100); ABG TCO2 36.6 mmhg (23-27); Lactate Arterial 1.3 mmol/L (0.4-2.0)
[2023-06-01 08:16] LABS: Allen's Test ACCEPTABLE; Oxygen 60 %; PEEP 8; Source Right Radial; Tidal Volume 420; Vent Rate 18
[2023-06-01] MEDS: CEFEPIME HCL 2 GM in 0.9 % SODIUM CHLORIDE 100 ML IV ×2 (08:33→20:23)
[2023-06-01] MEDS: FUROSEMIDE 40MG/4ML VIAL 40 MG IV (08:33)
[2023-06-01] MEDS: propofoL 100 ML 5.40000000000000036 MG IV (08:33)
[2023-06-01] MEDS: VANCOMYCIN/WATER FOR INJ (PEG) 1.5 GM/300 ML PIGGYBACK IV (09:11)
--- NOTE | 2023-06-01 09:39 | CA_ITS ---
APPROVED REPORT EXAM: Comprehensive 2D, Doppler, and color-flow Echocardiogram Plaster Maker: Za Shukla RVT Ht: 5 ft 6 in Wt: 174lbs BSA: 1.88 BP: 101/52 mmHg Indications: ELEVATED TROP,SEPSIS,AICD,CM,HTN,HLD,CHF,HFrEF TDS-PT ON BACK ON VENT BEST IMAGES POSSIBLE M-Mode Dimensions RVDd 3.48 cm (0.9-2.6) LA Diam 3.34 cm (1.9-4.0) LVDd 4.15 cm (3.5-5.7) LVDs 2.61 cm (3.5-5.7) IVSd 1.41 cm (0.6-1.1) PWd 0.75 cm (0.6-1.1) EF (Teich) 67.50% FS 37.10% EDV (Teich) 76.40 mL ESV (Teich) 24.80 mL LV Diastology E Decel Time 150 (160-240 msec) E/A Ratio 0.8 Mitral Valve MV E Max Juventino. 47.0 (40-130 cm/s) MV A Velocity 58.0 (40-130 cm/s) E/A Ratio 0.81 MV PHT 44.0 ms Pulmonary Valve PV Peak Velocity 88.0 (50-150 cm/s) Tricuspid Valve TR P. Velocity 289.00 cm/s RAP Estimate 10.00 mmHg RVSP 43.30 mmHg Left Ventricle The left ventricle is normal size. The left ventricular systolic function is normal. The left ventricular ejection fraction is within the normal range. There is increased LV wall thickness. No regional wall motion abnormalities are noted. There is septal flattening consistent with RV pressure/volume overload. Diastolic function is indeterminate. LVEF is 55%. Right Ventricle Right ventricle is severely dilated. Right ventricle is moderately hypokinetic. Atria The left atrium size is normal. Right atrium is moderately dilated. There is no Doppler evidence of interatrial shunt. Aortic Valve The aortic valve is mildly thickened. There is no aortic valvular stenosis. Trace aortic regurgitation. Mitral Valve The mitral valve is normal in structure. No evidence of mitral valve stenosis. Trace mitral regurgitation. Tricuspid Valve The tricuspid valve leaflets are thin and pliable. Moderate tricuspid regurgitation. RVSP is 33 mmHg + RA pressure. Pulmonic Valve The pulmonary valve is normal in structure. Trace pulmonic regurgitation. Great Vessels The aortic root is not well-visualized. The IVC is dilated in the setting of mechanical ventilation. Pericardium There is no pericardial effusion. Other Information Study Quality: Technically Difficult Conclusion Normal LV systolic function. Severely dilated RV with moderate reduction in RV function. Septal flattening consistent with RV pressure/volume overload. RA dilation. Moderate TR. Electronically signed by : Clarita Sanz MD 06/03/2023 12:34:01
--- NOTE | 2023-06-01 10:10 | EXP.PULM.CON ---
History of Present Illness History of present illness: Ms. Chandler is a 57-year-old female with reported history of hypertension hyperlipidemia CHF AICD in place on Eliquis diabetes presented to the ER with worsening mentation needing intubation mechanical ventilatory support and pulmonary was consulted over the weekend for further evaluation and management. [facility] Disclaimer: The information contained in this section may have been updated after the patient was seen, as this information can be updated by other users. Medical History (Updated 06/01/23 @ 11:49 by Ilda Santoyo MD) Acute respiratory failure with hypoxia ICD (implantable cardioverter-defibrillator) in place Hypertension Hyperlipemia Claudication Chronic respiratory failure Left ventricular thrombosis Ischemic cardiomyopathy with implantable cardioverter-defibrillator (ICD) Venous (peripheral) insufficiency HFrEF (heart failure with reduced ejection fraction) Seizure Social History (Updated 05/29/23 @ 23:59 by Karolyn Loo RN) Smoking Status: Current some day smoker tobacco type: cigarettes packs per day: 1 alcohol intake: never substance use type: denies use current occupational status: disabled Travel in the last 8 weeks: None caffeine: No Review of Systems Review of Systems Review of systems:: unable to obtain Review of systems (narrative): Intubated and Sedated Pulmonology Exam Inpatient Vital signs and Labs for Last 24 Hours: Temp Pulse Resp BP Pulse Ox O2 Del Method O2 Flow Rate 99.3 F 77 18 101/52 L 95 Mechanical Ventilation 45 06/01/23 04:00 06/01/23 09:37 06/01/23 06:00 06/01/23 06:00 06/01/23 06:00 06/01/23 06:00 05/30/23 01:00 FiO2 60 05/31/23 19:17 Laboratory Results - last 24 hr 05/31/23 11:28: POC Glucose 140 H 05/31/23 16:37: POC Glucose 112 H 06/01/23 05:40: WBC 9.3, RBC 5.02, Hgb 14.8, Hct 49.3 H, MCV 98.2, MCH 29.5, MCHC 30.0 L, RDW 19.1 H, Plt Count 74 L, MPV 10.9 H, Neut % (Auto) 74.0, Lymph % (Auto) 9.4 L, [place] % (Auto) 15.7 H, Eos % (Auto) 0.3, Baso % (Auto) 0.6, Neut # (Auto) 6.8, Lymph # (Auto) 0.9, [place] # (Auto) 1.5 H, Eos # (Auto) 0.0, Baso # (Auto) 0.1, Total Counted 100, Neutrophils % (Manual) 71, Band Neutrophils % 1.0, Lymphocytes % (Manual) 11, Monocytes % (Manual) 17 H, Nucleated RBCs 3, Differential Comment , Platelet Estimate Moderate decrease, RBC Morphology Normal, Sodium 138, Potassium 3.4 L, Chloride 97 L, Carbon Dioxide 39 H, Anion Gap 5.4, BUN 36 H, Creatinine 1.00 D, Estimated Creat Clear 77, Estimated GFR 57 L, Est GFR ( Amer) 69 D, Glucose 110 H, Calcium 8.2 L 06/01/23 08:01: Specimen Source Right radial, O2 % 60, ABG pH 7.49 H, ABG pCO2 47.1 H, ABG pO2 88.8, ABG HCO3 35.2 H, ABG Total CO2 36.6 H, ABG O2 Saturation 97, ABG Base Excess 11.8 H, Ever Test Acceptable, ABG Lactate 1.3, Vent Rate 18, Tidal Volume 420, PEEP 8 I & O for Labs for Last 24 Hours: Intake & Output 05/29/23 05/30/23 05/31/23 06/01/23 23:59 23:59 23:59 23:59 Intake Total 6.66 / 356.66 547.968 / 637.517 9835.825 / 3371.171 9949 / 1008 Output Total 3580 / 3580 5255 / 5255 2250 / 2250 Balance 6.66 / 356.66 -3032.032 / -3032.032 -3647.175 / -3647.175 -1242 / -1242 Weight 198 lb 6.656 oz 175 lb 4.985 oz 181 lb 14.102 oz 174 lb 9.6 oz Microbiology Reports for the Last 24 Hours: Microbiology 05/29/23 18:20 Sputum - Endotracheal Tube Aspirate Gram Stain - Final 05/29/23 18:20 Urine,Clean Catch Urine Culture - Final Constitutional: Present severe distress Comment:: Intubated and Sedated Head: Present normocephalic and atraumatic Neck: Present normal inspection and trachea midline Respiratory: Present patient mechanically ventilated, prolonged expiratory phase, rhonchi, wheezes and crackles Cardiac: Present Irregularly Regular and S1/S2 GI: Present soft; Absent distention or tenderness Skin: Present intact; Absent cyanosis Neuro: Absent alert, awake or oriented x 3 Comment:: Intubated and sedated Extremities: Present normal inspection and edema; Absent clubbing or cyanosis Psychiatric: Present unable to assess Meds Home Medications and Allergies Home Medications Medication Instructions Recorded Confirmed Type lisinopril 10 mg tablet 10 mg PO DAILY 04/06/17 05/30/23 History apixaban 5 mg tablet (Eliquis) 5 mg PO BID 05/29/23 05/30/23 History clopidogrel 75 mg tablet 75 mg PO DAILY 05/29/23 05/30/23 History folic acid 1 mg tablet 1 mg PO DAILY 05/29/23 05/30/23 History furosemide 20 mg tablet 20 mg PO AM 05/29/23 05/30/23 History metoprolol succinate 50 mg 50 mg PO HS 05/29/23 05/30/23 History tablet,extended release 24 hr montelukast 10 mg tablet 10 mg PO PM 05/29/23 05/30/23 History pantoprazole 40 mg tablet,delayed 40 mg PO DAILY 05/29/23 05/30/23 History release potassium chloride 10 mEq 10 meq PO AM 05/29/23 05/30/23 History capsule,extended release topiramate 25 mg tablet 25 mg PO HS 05/29/23 05/30/23 History gabapentin 600 mg tablet 600 mg PO Q8H 05/30/23 05/30/23 History rosuvastatin 10 mg tablet 10 mg PO HS 05/30/23 05/30/23 History New Prescriptions to Start Prescriptions: Allergies Allergy/AdvReac Type Severity Reaction Status Date / Time No Known Allergies Allergy Verified 01/21/18 14:48 Results Laboratory Findings 06/01/23 05:40 06/01/23 05:40 ABG ABG pH 7.49 mmol/L (7.35-7.45) H 06/01/23 08:01 ABG pCO2 47.1 mmhg (35.0-45.0) H 06/01/23 08:01 ABG pO2 88.8 mmhg (80-100) 06/01/23 08:01 ABG O2 Saturation 97 % (90-100) 06/01/23 08:01 PT/INR, D-dimer PT 20.6 seconds (10.1-12.5) H 05/29/23 19:55 INR 2.00 (0.9-1.1) H 05/29/23 19:55 Abnormal lab findings: Abnormal Labs 05/29/23 05/29/23 05/29/23 17:10 18:20 19:30 RBC 3.08 L Hgb 9.2 L Hct 33.3 L MCV 108.0 H MCH MCHC 27.7 L RDW 19.5 H Plt Count 57 L MPV 12.2 H Neut % (Auto) 82.7 H Lymph % (Auto) [place] % (Auto) Eos % (Auto) Neut # (Auto) [place] # (Auto) Monocytes % (Manual) PT INR APTT Fibrinogen ABG pH ABG pCO2 ABG pO2 ABG HCO3 ABG Total CO2 ABG Base Excess VBG pH 7.07 L VBG pCO2 23.8 L VBG pO2 80.9 H VBG HCO3 6.7 L VBG Total CO2 7.4 L VBG O2 Saturation 90.4 H VBG Base Excess -23.5 L VBG Lactic Acid 18.5 H Sodium 127 L Potassium Chloride Carbon Dioxide 7 L* Anion Gap 18.0 H BUN Creatinine 0.20 L Estimated Creat Clear 436 H Estimated GFR Est GFR ( Amer) Glucose 22 L* POC Glucose Random Glucose Lactate 20.8 H Calcium 5.7 L Magnesium Total Bilirubin AST 11 L ALT < 4 L Alkaline Phosphatase 21 L Troponin I NT-Pro-B Natriuret Pep 2250 H Total Protein < 2.0 L Albumin < 1.0 L Globulin 1.0 L Albumin/Globulin Ratio 1.0 L Urine Bilirubin 3+ A 05/29/23 05/29/23 05/29/23 19:55 21:03 21:51 RBC Hgb Hct 50.9 H MCV 102.6 H MCH 32.5 H MCHC 31.6 L RDW 19.0 H Plt Count 82 L D MPV Neut % (Auto) 81.0 H Lymph % (Auto) 7.4 L [place] % (Auto) 11.1 H Eos % (Auto) Neut # (Auto) 8.1 H [place] # (Auto) 1.1 H Monocytes % (Manual) PT 20.6 H INR 2.00 H APTT 32.7 H Fibrinogen 158 L ABG pH ABG pCO2 ABG pO2 ABG HCO3 ABG Total CO2 ABG Base Excess VBG pH 7.29 L VBG pCO2 52.2 H VBG pO2 25.8 L VBG HCO3 VBG Total CO2 VBG O2 Saturation 45.1 L VBG Base Excess VBG Lactic Acid 6.3 H Sodium 135 L Potassium Chloride Carbon Dioxide Anion Gap BUN 43 H D Creatinine 1.90 H D Estimated Creat Clear Estimated GFR 27 L Est GFR ( Amer) 33 L D Glucose 192 H D POC Glucose Random Glucose 160 H Lactate 3.6 H Calcium Magnesium Total Bilirubin 3.4 H AST 54 H D ALT Alkaline Phosphatase Troponin I 0.16 H 0.19 H NT-Pro-B Natriuret Pep 60692 H Total Protein 5.2 L D Albumin 2.8 L D Globulin Albumin/Globulin Ratio Urine Bilirubin 05/29/23 05/30/23 05/30/23 23:10 02:02 06:15 RBC 5.49 H Hgb 16.5 H Hct 54.5 H MCV 99.3 H MCH MCHC 30.2 L RDW 18.9 H Plt Count 92 L MPV 10.6 H Neut % (Auto) Lymph % (Auto) 8.4 L [place] % (Auto) 16.9 H Eos % (Auto) 0.0 L Neut # (Auto) [place] # (Auto) 1.7 H Monocytes % (Manual) PT INR APTT Fibrinogen ABG pH ABG pCO2 ABG pO2 ABG HCO3 ABG Total CO2 ABG Base Excess VBG pH VBG pCO2 VBG pO2 VBG HCO3 VBG Total CO2 VBG O2 Saturation VBG Base Excess VBG Lactic Acid Sodium Potassium Chloride Carbon Dioxide 33 H Anion Gap BUN 41 H Creatinine 1.80 H Estimated Creat Clear Estimated GFR 29 L Est GFR ( Amer) 35 L Glucose POC Glucose Random Glucose Lactate 2.6 H Calcium Magnesium 1.4 L Total Bilirubin 1.9 H AST 51 H ALT Alkaline Phosphatase Troponin I 0.26 H 0.28 H NT-Pro-B Natriuret Pep Total Protein 4.7 L Albumin 2.3 L D Globulin Albumin/Globulin Ratio 1.0 L Urine Bilirubin 05/30/23 05/31/23 05/31/23 08:43 05:40 11:28 RBC Hgb Hct MCV MCH MCHC RDW Plt Count MPV Neut % (Auto) Lymph % (Auto) [place] % (Auto) Eos % (Auto) Neut # (Auto) [place] # (Auto) Monocytes % (Manual) PT INR APTT Fibrinogen ABG pH 7.49 H ABG pCO2 ABG pO2 55.5 L ABG HCO3 28.7 H ABG Total CO2 29.8 H ABG Base Excess 5.4 H VBG pH VBG pCO2 VBG pO2 VBG HCO3 VBG Total CO2 VBG O2 Saturation VBG Base Excess VBG Lactic Acid Sodium Potassium Chloride Carbon Dioxide Anion Gap BUN Creatinine Estimated Creat Clear Estimated GFR Est GFR ( Amer) Glucose POC Glucose 147 H 140 H Random Glucose Lactate Calcium Magnesium Total Bilirubin AST ALT Alkaline Phosphatase Troponin I NT-Pro-B Natriuret Pep Total Protein Albumin Globulin Albumin/Globulin Ratio Urine Bilirubin 05/31/23 06/01/23 06/01/23 16:37 05:40 08:01 RBC Hgb Hct 49.3 H MCV MCH MCHC 30.0 L RDW 19.1 H Plt Count 74 L MPV 10.9 H Neut % (Auto) Lymph % (Auto) 9.4 L [place] % (Auto) 15.7 H Eos % (Auto) Neut # (Auto) [place] # (Auto) 1.5 H Monocytes % (Manual) 17 H PT INR APTT Fibrinogen ABG pH 7.49 H ABG pCO2 47.1 H ABG pO2 ABG HCO3 35.2 H ABG Total CO2 36.6 H ABG Base Excess 11.8 H VBG pH VBG pCO2 VBG pO2 VBG HCO3 VBG Total CO2 VBG O2 Saturation VBG Base Excess VBG Lactic Acid Sodium Potassium 3.4 L Chloride 97 L Carbon Dioxide 39 H Anion Gap BUN 36 H Creatinine Estimated Creat Clear Estimated GFR 57 L Est GFR ( Amer) Glucose 110 H POC Glucose 112 H Random Glucose Lactate Calcium 8.2 L Magnesium Total Bilirubin AST ALT Alkaline Phosphatase Troponin I NT-Pro-B Natriuret Pep Total Protein Albumin Globulin Albumin/Globulin Ratio Urine Bilirubin Assessment and Plan *Assessment and plan (1) On mechanically assisted ventilation: Status: Acute Category: Medical Code(s): Z99.11 - Dependence on respirator [ventilator] status (2) Acute respiratory failure with hypoxia: Status: Acute Category: Medical Code(s): J96.01 - Acute respiratory failure with hypoxia Plan Ms. Motley is a 57-year-old female with reported history of hypertension hyperlipidemia CHF AICD in place on Eliquis diabetes presented to the ER with worsening mentation needing intubation mechanical ventilatory support and pulmonary was consulted over the weekend for further evaluation and management. CTA upon admission no dense consolidation or airspace disease noted. Large right pleural effusion along with adjacent atelectasis noted. Hyperinflated lungs on chest x-ray. Mild neutrophilic predominant leukocytosis upon admission, improving. MARIA upon admission, improving BUN/creatinine with diuretics. Patient on admission was initiated on broad-spectrum antibiotics including vancomycin and cefepime along with DuoNebs every 6 hours on as-needed basis but she continued to receive diuretics on a daily basis is concerning for volume overload and heart failure exacerbation. Plan: Continue on Eliquis Plan: Continue to wean sedation to facilitate SBT. Continue mechanical ventilatory support, currently on tidal volume of 420 PEEP of 8 and FiO2 50%. No evidence of hypoxic/hypercarbic respiratory failure at this point of time. SBT. Significant wheezing noted on auscultation DuoNebs every 4 hours scheduled Continue vancomycin and cefepime pending culture results. No significant consolidation noted on chest CT except for the noted right pleural pleural effusion along with adjacent atelectasis. Hemodynamically stable, weaned off vasopressor support. MAP greater than 65. Abdomen soft nondistended. BUN/creatinine improving. Adequate urine output. Continue to receive diuretics. - Continue mechanical ventilatory support - Continue AnalgoSedation with Propofol and Fentanyl with CPOT gal less than or euqal to 2 and RASS goal of to 2 (No need for deep sedation) - VAP bundle Recommend elevate head of the bed at 30 to 45 degrees Recommend oral care with chlorhexidne Recommend GI ulcer prophylaxis - Famotidine 20mg IV BID Recommend chemical DVT prophylaxis Total critical care time spent on this patient is 35 minutes managing acute hypoxic respiratory failure needing mechanical ventilation. This time spent include reviewing test results including interpreting chest x-rays, labs and arterial blood gas, optimizing the ventilator settings,formulating plan of care, discussing the plan of care with the team and the nursing staff.
--- NOTE | 2023-06-01 10:40 | PC.NURSE ---
echo being obtained per Crystal
--- NOTE | 2023-06-01 10:56 | DIET.NUTRFU ---
Addendum entered by Gerda Sena RD, LD 06/01/23 10:59: Will continue to monitor fluid status and adjust flush to best meet needs. TF is providing 1440kcal, 60gm protein and total fluid 993.6ml. Protein needs are being met, calories provided is below needs, with propofol in place will wait to adjust. Will continue to monitor for extubation and tubefeeding tolerance Original Note: Chart review: Patient continues on TF, she is intubated and reciving propofol 120ml today and 141 yesterday. She also continues to recieve lasix, was admitted with +4 pitting edema. Provider reports that is improving with output on 05/30 was 5255 and 3455 on 05/29. Minimual flush is in place at 60ml [id number], plus free water from formula of 753.6ml total fluid is 993.6. Na was 138 today.
[2023-06-01 12:00] LABS: POC Glucose,Bedside 88 (70-110)
--- NOTE | 2023-06-01 13:32 | P.CONCA_ITS ---
History of Present Illness History of Present Illness Consult date: 06/01/23 Requesting physician: Ganesh Morales Consult reason: congestive heart failure and shortness of breath Chief complaint: Pneumonia, SOA, CHF, NSTEMI Additional Medical History:: 1. HFrEF A. Known EF of 20-25% for many years B. AICD in situ 2. Coronary artery disease with prior coronary stenting 3. COPD with continued tobacco use 4. Diabetes 5. History of Eliquis therapy History of present illness: 57-year-old female history of reported hypertension, hyperlipidemia, CHF with AICD in place currently on Eliquis, diabetes presenting with altered mental status. Little is known about patient other than report from EMS. Patient was reportedly found down, minimally responsive. EMS was called. Patient hypoxemic in the 70s when EMS arrived. Placed on BiPAP, saturations improved to the 90s. Patient brought immediately to the emergency department. Patient acutely ill on arrival, no further information given. History obtained with EMS. On arrival, patient pale, mottled, cyanotic, saturating about [address], GCS 3 and unresponsive, completely obtunded. Bedside ultrasound with plethoric IVC, hyperdynamic heart, free fluid in the abdomen. Patient with no pain response. Patient does have femoral and carotid pulses. Initial glucose 129, access obtained. Patient was intubated using etomidate and succinylcholine. 7.5 tube was passed 22 at the lip. Bilateral breath sounds auscultated. Patient was hooked up to the ventilator. Bedside patient began exhibiting seizure-like activity despite being on propofol, repeat glucose was in the 60s. Patient's ABG with initial pH 7.06, CO2 low at 23, oxygen adequate. Patient's bicarb 6, glucose 21, lactate elevated at 18.5. Patient given amp of D50 with continued left-sided seizure-like activity. Patient was then given 4 mg IV Ativan, seizures abated at that time. Due to concern for hyponatremia on initial blood draw, 3% normal saline was ordered, but further evaluation of labs concerning for diluted sample. Hypertonic saline held at this time. Patient to be given empiric antibiotics with vancomycin and Zosyn, as well as hydrocortisone given recent critical illness and hospitalization at outside facility ([facility]). Central line placed in right IJ with ultrasound guidance. Rest of labs interp reted, concern for dilution. Repeat panel was drawn. Patient without leukocytosis, hemoglobin 16.1, platelets low at 82,000. Patient's INR 2.0, PTT 32, fibrinogen low at 158. Repeat chemistry with sodium 135, MARIA with creatinine 1.9 and BUN 43 concerning for prerenal injury. Lactate 3.6. LFTs nonactionable. Initial BNP 23,000, troponin 0.16. Patient given 80 mg IV Lasix. Due to intermittent hypotensive pressures, norepinephrine was considered, but mean arterial pressures never drop below 65. Patient's blood pressure slowly improved with Lasix, so norepinephrine was discontinued. Pro pofol increased for sedation. Urinalysis with concern for UTI with nitrates, leukocyte Estrace, bacteria and blood. Given patient critically ill, admission warranted. Hospitalist was contacted and interactive discussion was had, patient to be admitted. The above per NADEEN Horn MD This is a 57-year-old female history of reported hypertension, hyperlipidemia, CHF with AICD in place currently on Eliquis, diabetes presenting with altered mental status. Patient seen status post intubation, therefore data is limited. Per Ed documentation, patient was reportedly found down, minimally responsive. EMS was called. Patient hypoxemic in the 70s when EMS arrived. Placed on BiPAP, saturations improved to the 90s. Patient brought immediately to the emergency department. Patient acutely ill on arrival, no further information given. Admitted for management and treatment The above per Dr. Morales Patient is sedated and on mechanical ventilation. Patient's longtime significant other is in the room and confirms events as noted above. He also relays patient has a long-term history of cardiomyopathy with congestive heart failure. He does relate increasing lower extremity edema and shortness of breath over the last few days prior to admission. [facility] Disclaimer: The information contained in this section may have been updated after the patient was seen, as this information can be updated by other users. Medical History (Updated 06/01/23 @ 11:49 by Ilda Santoyo MD) Acute respiratory failure with hypoxia ICD (implantable cardioverter-defibrillator) in place Hypertension Hyperlipemia Claudication Chronic respiratory failure Left ventricular thrombosis Ischemic cardiomyopathy with implantable cardioverter-defibrillator (ICD) Venous (peripheral) insufficiency HFrEF (heart failure with reduced ejection fraction) Seizure Social History (Updated 05/29/23 @ 23:59 by Karolyn Loo RN) Smoking Status: Current some day smoker tobacco type: cigarettes packs per day: 1 alcohol intake: never substance use type: denies use current occupational status: disabled Travel in the last 8 weeks: None caffeine: No Review of Systems Review of Systems Review of systems:: unable to obtain Exam Data for Last 24 hours Vital signs and Labs for Last 24 Hours: Temp Pulse Resp BP Pulse Ox O2 Del Method O2 Flow Rate 99.1 F 77 18 103/50 L 93 L Mechanical Ventilation 45 06/01/23 08:00 06/01/23 11:00 06/01/23 11:00 06/01/23 11:00 06/01/23 11:00 06/01/23 11:00 05/30/23 01:00 FiO2 50 06/01/23 10:00 Laboratory Results - last 24 hr 05/31/23 16:37: POC Glucose 112 H 06/01/23 05:40: WBC 9.3, RBC 5.02, Hgb 14.8, Hct 49.3 H, MCV 98.2, MCH 29.5, MCHC 30.0 L, RDW 19.1 H, Plt Count 74 L, MPV 10.9 H, Neut % (Auto) 74.0, Lymph % (Auto) 9.4 L, [place] % (Auto) 15.7 H, Eos % (Auto) 0.3, Baso % (Auto) 0.6, Neut # (Auto) 6.8, Lymph # (Auto) 0.9, [place] # (Auto) 1.5 H, Eos # (Auto) 0.0, Baso # (Auto) 0.1, Total Counted 100, Neutrophils % (Manual) 71, Band Neutrophils % 1.0, Lymphocytes % (Manual) 11, Monocytes % (Manual) 17 H, Nucleated RBCs 3, Differential Comment , Platelet Estimate Moderate decrease, RBC Morphology Normal, Sodium 138, Potassium 3.4 L, Chloride 97 L, Carbon Dioxide 39 H, Anion Gap 5.4, BUN 36 H, Creatinine 1.00 D, Estimated Creat Clear 77, Estimated GFR 57 L, Est GFR ( Amer) 69 D, Glucose 110 H, Calcium 8.2 L 06/01/23 08:01: Specimen Source Right radial, O2 % 60, ABG pH 7.49 H, ABG pCO2 47.1 H, ABG pO2 88.8, ABG HCO3 35.2 H, ABG Total CO2 36.6 H, ABG O2 Saturation 97, ABG Base Excess 11.8 H, Ever Test Acceptable, ABG Lactate 1.3, Vent Rate 18, Tidal Volume 420, PEEP 8 06/01/23 11:49: POC Glucose 88 I & O for Last 24 hours: Intake & Output 05/30/23 05/31/23 06/01/23 06/02/23 11:59 11:59 11:59 11:59 Intake Total 435.095 / 882.213 8980.218 / 4139.986 1030.14 / 203.14 Output Total 1025 / 1085 6455 / 6730 5380 / 5380 Balance -589.905 / -649.905 -5357.782 / -5632.782 -3341.86 / -3341.86 Weight 175 lb 4.985 oz 181 lb 14.102 oz 174 lb 9.6 oz Microbiology Reports for the Last 24 Hours: Microbiology 05/29/23 18:20 Sputum - Endotracheal Tube Aspirate Gram Stain - Final 05/29/23 18:20 Urine,Clean Catch Urine Culture - Final Constitutional Constitutional: obtunded *Routine Respiratory Exam Respiratory: Present patient mechanically ventilated *Routine Cardiovascular Exam Cardiovascular: Present RRR and murmur; Absent gallop or rubs *Routine Extremities Exam Extremities: Present edema Meds Home Medications and Allergies Home Medications Medication Instructions Recorded Confirmed Type lisinopril 10 mg tablet 10 mg PO DAILY 04/06/17 05/30/23 History apixaban 5 mg tablet (Eliquis) 5 mg PO BID 05/29/23 05/30/23 History clopidogrel 75 mg tablet 75 mg PO DAILY 05/29/23 05/30/23 History folic acid 1 mg tablet 1 mg PO DAILY 05/29/23 05/30/23 History furosemide 20 mg tablet 20 mg PO AM 05/29/23 05/30/23 History metoprolol succinate 50 mg 50 mg PO HS 05/29/23 05/30/23 History tablet,extended release 24 hr montelukast 10 mg tablet 10 mg PO PM 05/29/23 05/30/23 History pantoprazole 40 mg tablet,delayed 40 mg PO DAILY 05/29/23 05/30/23 History release potassium chloride 10 mEq 10 meq PO AM 05/29/23 05/30/23 History capsule,extended release topiramate 25 mg tablet 25 mg PO HS 05/29/23 05/30/23 History gabapentin 600 mg tablet 600 mg PO Q8H 05/30/23 05/30/23 History rosuvastatin 10 mg tablet 10 mg PO HS 05/30/23 05/30/23 History New Prescriptions to Start Prescriptions: Allergies Allergy/AdvReac Type Severity Reaction Status Date / Time No Known Allergies Allergy Verified 01/21/18 14:48 Assessment and Plan *Assessment and plan (1) Acute respiratory failure with hypoxia: Status: Acute Category: Medical Code(s): J96.01 - Acute respiratory failure with hypoxia (2) On mechanically assisted ventilation: Status: Acute Category: Medical Code(s): Z99.11 - Dependence on respirator [ventilator] status (3) Cardiogenic shock: Status: Acute Category: Medical Code(s): R57.0 - Cardiogenic shock (4) HFrEF (heart failure with reduced ejection fraction): Status: Acute Category: Medical Code(s): I50.20 - Unspecified systolic (congestive) heart failure (5) Ischemic cardiomyopathy with implantable cardioverter-defibrillator (ICD): Status: Acute Category: Medical Code(s): I25.5 - Ischemic cardiomyopathy; Z95.810 - Presence of automatic (implantable) cardiac defibrillator (6) Acute exacerbation of CHF (congestive heart failure): Status: Acute Qualifiers: Heart failure type: combined systolic and diastolic Qualified Code(s): I50.43 - Acute on chronic combined systolic (congestive) and diastolic (congestive) heart failure Category: Medical Code(s): I50.9 - Heart failure, unspecified Plan 1. Acute respiratory failure with hypoxia -Sedated and intubated, per pulmonary -Antibiotics of vancomycin and cefepime 2. Cardiogenic shock -Improving -Weaning off pressors -Preliminary echocardiogram at this time shows near normal EF with greatly reduced RV function and increased RV size 3. HFrEF with small bilateral pleural effusions on chest x-ray (improved) -Continue diuretics as blood pressure allows -BNP 22,900 4. Known coronary artery disease with prior coronary stenting per patient's significant other -Elevated troponin this admission, will consider cardiac catheterization after extubation 5. AICD in situ, brand unknown -Reportedly interrogated last week at her physician's office (Dr. Alves) in [place], [place] 6. Chronic anticoagulation -Eliquis Continue current meds Consider adding GDMT for HFrEF as blood pressure allows Consider cardiac catheterization later this week once extubated
[2023-06-01 14:14] LABS: Troponin I 0.08 ng/ml (0.00-0.034)
--- NOTE | 2023-06-01 15:00 | PC.NURSE ---
Dr. Morales notified of temp 99.9. states he will order rectal Tylenol.
[2023-06-01 15:15] LABS: Adenovirus,PCR Not Detected (NotDetected); Coronavirus 19, PCR Not Detected (NotDetected); Coronavirus 229E Not Detected (NotDetected); Coronavirus NL63 Not Detected (NotDetected); Coronavirus OC43 Not Detected (NotDetected); Coronovirus HKU1,PCR Not Detected (NotDetected); Human Metapneumovirus Not Detected (NotDetected); Influenza A, PCR Not Detected (NotDetected); Influenza AH1, 2009 Not Detected (NotDetected); Influenza AH1, PCR Not Detected (NotDetected); Influenza AH3,PCR Not Detected (NotDetected); Influenza B, PCR Not Detected (NotDetected); Parainfluenza 1, PCR Not Detected (NotDetected); Parainfluenza 2, PCR Not Detected (NotDetected); Parainfluenza 3, PCR Not Detected (NotDetected); Parainfluenza 4, PCR Not Detected (NotDetected); Respiratory Syncytial Virus Not Detected (NotDetected); Rhinovirus/Enterovirus Not Detected (NotDetected)
--- NOTE | 2023-06-01 16:09 | P.PN_ITS ---
Subjective *Date: 06/01/23 *Time: 16:09 Interval history: patient is intubated and sedated, patient family is present at bedside, patient has not been compliant per reports from family Exam Data for Last 24 hours Vital signs and Labs for Last 24 Hours: Temp Pulse Resp BP Pulse Ox O2 Del Method O2 Flow Rate 99.9 F H 86 18 101/60 L 96 Mechanical Ventilation 45 06/01/23 14:55 06/01/23 14:55 06/01/23 14:55 06/01/23 14:55 06/01/23 14:55 06/01/23 14:55 05/30/23 01:00 FiO2 75 06/01/23 14:00 Laboratory Results - last 24 hr 05/31/23 16:37: POC Glucose 112 H 06/01/23 05:40: WBC 9.3, RBC 5.02, Hgb 14.8, Hct 49.3 H, MCV 98.2, MCH 29.5, MCHC 30.0 L, RDW 19.1 H, Plt Count 74 L, MPV 10.9 H, Neut % (Auto) 74.0, Lymph % (Auto) 9.4 L, [place] % (Auto) 15.7 H, Eos % (Auto) 0.3, Baso % (Auto) 0.6, Neut # (Auto) 6.8, Lymph # (Auto) 0.9, [place] # (Auto) 1.5 H, Eos # (Auto) 0.0, Baso # (Auto) 0.1, Total Counted 100, Neutrophils % (Manual) 71, Band Neutrophils % 1.0, Lymphocytes % (Manual) 11, Monocytes % (Manual) 17 H, Nucleated RBCs 3, Differential Comment , Platelet Estimate Moderate decrease, RBC Morphology Normal, Sodium 138, Potassium 3.4 L, Chloride 97 L, Carbon Dioxide 39 H, Anion Gap 5.4, BUN 36 H, Creatinine 1.00 D, Estimated Creat Clear 77, Estimated GFR 57 L, Est GFR ( Amer) 69 D, Glucose 110 H, Calcium 8.2 L, Troponin I 0.08 H 06/01/23 08:01: Specimen Source Right radial, O2 % 60, ABG pH 7.49 H, ABG pCO2 47.1 H, ABG pO2 88.8, ABG HCO3 35.2 H, ABG Total CO2 36.6 H, ABG O2 Saturation 97, ABG Base Excess 11.8 H, Ever Test Acceptable, ABG Lactate 1.3, Vent Rate 18, Tidal Volume 420, PEEP 8 06/01/23 11:49: POC Glucose 88 I & O for Last 24 hours: Intake & Output 05/29/23 05/30/23 05/31/23 06/01/23 23:59 23:59 23:59 23:59 Intake Total 6.66 / 356.66 547.968 / 540.155 8806.825 / 8100.602 5551.03 / 1801.03 Output Total 3580 / 3580 5255 / 5255 5075 / 5075 Balance 6.66 / 356.66 -3032.032 / -3032.032 -3647.175 / -3647.175 -3273.97 / - 3273.97 Weight 90 kg 79.52 kg 82.5 kg 79.197 kg Microbiology Reports for the Last 24 Hours: Microbiology 05/29/23 18:20 Sputum - Endotracheal Tube Aspirate Gram Stain - Final 05/29/23 18:20 Urine,Clean Catch Urine Culture - Final Constitutional Comments: intubated and sedated *Routine HEENT Exam Head: Present normocephalic Eye: Present EOMI and PERRL ENT: Present mucous membranes moist *Routine Neck Exam Neck: Present supple; Absent lymphadenopathy *Routine Respiratory Exam Respiratory: Present respiratory distress and diminished air movement *Routine Cardiovascular Exam Cardiovascular: Present RRR *Routine Abdominal Exam Abdominal: Present soft and normoactive bowel sounds; Absent tenderness *Routine Extremities Exam Extremities: Absent cyanosis, clubbing or edema *Routine Skin Exam Skin: Present warm; Absent rash *Routine Neurological Exam Comments: intubated and sedated Assessment and Plan *Assessment and plan (1) Hypoxic respiratory failure: Status: Acute Qualifiers: Chronicity: acute on chronic Qualified Code(s): J96.21 - Acute and chronic respiratory failure with hypoxia Category: Medical Code(s): J96.91 - Respiratory failure, unspecified with hypoxia (2) Acute exacerbation of CHF (congestive heart failure): Status: Acute Qualifiers: Heart failure type: combined systolic and diastolic Qualified Code(s): I50.43 - Acute on chronic combined systolic (congestive) and diastolic (congestive) heart failure Category: Medical Code(s): I50.9 - Heart failure, unspecified (3) Cardiogenic shock: Status: Acute Category: Medical Code(s): R57.0 - Cardiogenic shock (4) On mechanically assisted ventilation: Status: Acute Category: Medical Code(s): Z99.11 - Dependence on respirator [ventilator] status (5) HFrEF (heart failure with reduced ejection fraction): Status: Acute Category: Medical Code(s): I50.20 - Unspecified systolic (congestive) heart failure (6) Ischemic cardiomyopathy with implantable cardioverter-defibrillator (ICD): Status: Acute Category: Medical Code(s): I25.5 - Ischemic cardiomyopathy; Z95.810 - Presence of automatic (implantable) cardiac defibrillator Plan 57-year-old female history of reported hypertension, hyperlipidemia, CHF with AICD in place currently on Eliquis, diabetes presenting with altered mental status. Patient seen status post intubation, therefore data is limited. Per Ed documentation, patient was reportedly found down, minimally responsive. EMS was called. Patient hypoxemic in the 70s when EMS arrived. Placed on BiPAP, saturations improved to the 90s. On arrival, patient pale, mottled, cyanotic, saturating about [address], GCS 3 and unresponsive, completely obtunded. Bedside ultrasound with plethoric IVC, hyperdynamic heart, free fluid in the abdomen. Patient with no pain response. Patient does have femoral and carotid pulses. Acute on chronic hypoxic respiratory failure: Acute decompensation of CHF. Suspected cardiogenic shock: on mechanical vent on cont sedation. Propofol and fentanyl monitor BP for hypotension. Improved after dosis of lasix galindo inserted. Monitor strict I/Os on vanco, cefepime pharmacy to dose cultures pending repeat CMP/CBC daily cardiology and Pulmonolgy consult respiratory therapist to assist with care. pulmo toileting CTs reviewed. concerning for overloaded fluid. Anasarca. continue IV lasix HFrEF: initial bedside US showed reduced EF, wuth hemodynamic instability. may need formal ACHO. will deferred to cardiology for management. optimizing diuresis AICD in place On plavix and xarelto SCD for DVT ppx. On protonix for GI bleed protection Full code continue ventilator support, continue breathing treatments, continue on Cefepime, vancomycin, soft BP, has good UOP, continue diuresis with lasix, discussed with pulmonary, plan for SBT trial today
--- NOTE | 2023-06-01 16:42 | PC.NURSE ---
ordered prn Tylenol. Current temp 99.9 per temp sensing catheter.
--- NOTE | 2023-06-01 18:02 | PC.NURSE ---
pt remains intubated, 7.5 et tube, 22 at lip. Current vent settings FIO2-75, TV-420, Peep-8, R-18. pt's current sats 95%. No SBT performed this shift d/t pt having to be increased on FIO2. pt gcs 9-10. pt will follow commands by hand squeezing. Pt has right IJ triple lumen. LS inspiratory rhonci and fine crackles. Propofol infusing at 7 mcg/kg/min and fentanyl infusing at 10 mcg/hr. pt npo with TF being administered at goal of 40 with free water of 60 ml q 6hr. pt's TF tubing changed out this shift. temp sensing f/c in place, tmax 99.9 this shift. pt received one dose of IV Lasix this shift with great output this shfit. scds in place. family at bedside.
[2023-06-01] MEDS: PANTOPRAZOLE 40MG VIAL 40 MG IV (20:23)
[2023-06-01] MEDS: SODIUM CHLORIDE 0.9% 10ML VIAL 10 ML IV (20:23)
[2023-06-01 21:17] LABS: POC Glucose,Bedside 93 (70-110)
[2023-06-01 22:58] LABS: POC Glucose,Bedside 88 (70-110)
[2023-06-02] VITALS (38 sets, daily range): BP systolic 99–145; BP diastolic 52–80; PULSE 75–96; RESP 10–20; TEMP 36.6–37.7; O2SAT 90–97; BMI 27.3
[2023-06-02] MEDS: IPRATROPIUM/ALBUTEROL 3 ML NEB IH ×6 (02:17→21:51)
[2023-06-02] MEDS: FENTANYL CITRATE/PF 1,000 MCG in 0.9 % SODIUM CHLORIDE 80 ML 5 MCG IV ×2 (02:43→23:46)
[2023-06-02] MEDS: propofoL 100 ML 8.09999999999999964 MG IV (03:24)
[2023-06-02 05:27] LABS: POC Glucose,Bedside 81 (70-110)
[2023-06-02 05:42] LABS: MANUAL DIFFERENTIAL MANUAL DIFFERENTIAL (MANUAL DIFF)
[2023-06-02 05:44] LABS: Basophils % 0.4 % (0.1-2.0); Eosinophils # 0.1 K/mm3 (0.0-0.4); Eosinophils % 0.6 % (0.1-12.0); Hematocrit 47.5 % (37.0-47.0); Hemoglobin 14.3 g/dL (12.2-16.2); Lymphocytes % 12.1 % (10-50); Mean Corpuscular HGB Conc 30.2 g/dL (31.8-35.4); Mean Corpuscular Hemoglobin 29.7 pg (27.0-31.2); Mean Corpuscular Volume 98.5 fl (81-99); Mean Platelet Volume 11.7 fl (7.4-10.4); Monocytes # 1.2 K/mm3 (0.1-1.0); Monocytes % 14.9 % (1.7-9.3); Neutrophils # 5.9 K/mm3 (1.8-7.8); Platelet Count 71 K/mm3 (142-424); Red Blood Count 4.82 M/mm3 (4.20-5.40); White Blood Count 8.2 K/mm3 (4.8-10.8)
[2023-06-02 05:53] LABS: Chloride 101 mmol/L (98-107); Potassium 3.5 mmoL/L (3.5-5.1); Sodium 138 mmol/L (136-145)
[2023-06-02 05:55] LABS: Alanine Aminotransferase 16 U/L (12-78); Alkaline Phosphatase 113 U/L (38-126); Aspartate Amino Transferase 42 U/L (14-36); Bilirubin,Total 1.7 mg/dl (0.2-1.3); Blood Urea Nitrogen 26 mg/dl (7-17); Creatinine Clearance Estimated 93 mL/min (50-200); Estimated Glomerular Filt Rate 74 ml/min (>60); GFR (African American) 89 ML/MIN (>60)
[2023-06-02 05:56] LABS: Albumin Level 2.3 g/dl (3.5-5.0); Albumin/Globulin Ratio 0.9 (1.1-1.8); Anion Gap 1.5 mEq/L (5-15); Calcium 8.4 mg/dl (8.4-10.2); Carbon Dioxide 39 mmol/L (22.0-30.0); Globulin 2.5 g/dL (1.3-3.2); Glucose 86 mg/dl (74-100); Magnesium 1.3 mg/dl (1.6-2.3); Phosphorous 2.3 mg/dl (2.5-4.5); Total Protein,Serum 4.8 g/dl (6.3-8.2)
[2023-06-02 06:06] LABS: NT Pro Brain Natriuretic Pep. 5720 pg/mL (0-125)
[2023-06-02 07:06] LABS: Lymphocytes % 14 % (10-50); Monocytes % 15 % (2-9); Neutrophils % 71 % (42-76); Nucleated Red Blood Cells 2; Platelet Estimate Slight Decrease; RBC Morphology Normal; Total Cells Counted 100
--- NOTE | 2023-06-02 08:38 | P.PN_ITS ---
Subjective *Date: 06/02/23 *Time: 22:31 Interval history: Sedated on morning exam, spontaneous movement noted. Family at bedside. Hemodynamically stable. Afebrile. Medical Exam Vital signs and Labs for Last 24 Hours: Vital Signs Temp Pulse Pulse Resp BP Pulse Ox O2 Del Method 06/02/23 07:36 87 18 113/60 96 Mechanical Ventilation 06/02/23 06:28 Mechanical Ventilation 06/02/23 06:14 82 06/02/23 06:14 78 06/02/23 06:14 18 97 06/02/23 06:00 77 18 114/58 L 97 Mechanical Ventilation 06/02/23 05:00 85 18 107/57 L 96 Mechanical Ventilation 06/02/23 05:00 Mechanical Ventilation 06/02/23 04:00 18 96 06/02/23 04:00 Mechanical Ventilation 06/02/23 04:00 84 18 101/58 L 94 L Mechanical Ventilation 06/02/23 03:00 Mechanical Ventilation 06/02/23 03:00 78 18 104/59 L 96 Mechanical Ventilation 06/02/23 02:00 75 06/02/23 02:00 75 06/02/23 02:00 18 96 06/02/23 02:00 75 18 104/60 L 96 Mechanical Ventilation 06/02/23 01:00 Mechanical Ventilation 06/02/23 01:00 77 18 113/62 96 Mechanical Ventilation 06/02/23 00:00 80 06/02/23 00:00 18 95 06/02/23 00:00 95 Mechanical Ventilation 06/02/23 00:00 99.9 F H 78 18 99/55 L 95 Mechanical Ventilation 06/01/23 23:00 Mechanical Ventilation 06/01/23 23:00 88 18 114/67 96 Mechanical Ventilation 06/01/23 22:00 83 18 108/57 L 95 Mechanical Ventilation 06/01/23 21:43 80 06/01/23 21:43 80 06/01/23 21:43 18 94 L 06/01/23 21:00 Mechanical Ventilation 06/01/23 21:00 82 18 107/61 L 94 L Mechanical Ventilation 06/01/23 20:19 18 93 L 06/01/23 20:00 85 06/01/23 20:00 Mechanical Ventilation 06/01/23 20:00 99.1 F 92 H 17 124/69 95 Nasal Cannula 06/01/23 18:39 79 18 100/56 L 94 L Mechanical Ventilation 06/01/23 18:39 Mechanical Ventilation 06/01/23 18:00 79 06/01/23 18:00 79 06/01/23 18:00 94 L Mechanical Ventilation 06/01/23 18:00 18 94 L 06/01/23 17:54 99.1 F 82 18 92/55 L 94 L Mechanical Ventilation 06/01/23 17:00 81 18 97/53 L 93 L Mechanical Ventilation 06/01/23 17:00 Mechanical Ventilation 06/01/23 16:00 90 06/01/23 16:00 99.9 F H 06/01/23 16:00 88 18 102/59 L 93 L Mechanical Ventilation 06/01/23 16:00 95 Mechanical Ventilation 06/01/23 14:55 99.9 F H 86 18 101/60 L 96 06/01/23 14:55 Mechanical Ventilation 06/01/23 14:00 99.9 F H 83 18 112/81 97 Mechanical Ventilation 06/01/23 14:00 97 06/01/23 13:42 77 06/01/23 13:42 74 06/01/23 13:05 18 91 L 06/01/23 13:00 83 18 89/54 L 90 L Mechanical Ventilation 06/01/23 13:00 Mechanical Ventilation 06/01/23 12:00 75 06/01/23 12:00 99.4 F 73 18 91/43 L 93 L Mechanical Ventilation 06/01/23 12:00 91 L Mechanical Ventilation 06/01/23 11:00 77 18 103/50 L 93 L Mechanical Ventilation 06/01/23 11:00 Mechanical Ventilation 06/01/23 10:05 06/01/23 10:00 78 18 120/65 94 L Mechanical Ventilation 06/01/23 09:47 06/01/23 09:40 18 97 06/01/23 09:37 77 06/01/23 09:37 74 06/01/23 09:00 78 18 121/68 97 Mechanical Ventilation 06/01/23 09:00 Mechanical Ventilation O2 Flow Rate FiO2 06/02/23 07:36 75 06/02/23 06:28 06/02/23 06:14 06/02/23 06:14 06/02/23 06:14 65 06/02/23 06:00 06/02/23 05:00 04/23/24 05:00 06/02/23 04:00 75 06/02/23 04:00 06/02/23 04:00 06/02/23 03:00 06/02/23 03:00 06/02/23 02:00 06/02/23 02:00 06/02/23 02:00 75 06/02/23 02:00 06/02/23 01:00 06/02/23 01:00 06/02/23 00:00 06/02/23 00:00 75 06/02/23 00:00 75 06/02/23 00:00 06/01/23 23:00 06/01/23 23:00 06/01/23 22:00 06/01/23 21:43 06/01/23 21:43 06/01/23 21:43 75 06/01/23 21:00 06/01/23 21:00 06/01/23 20:19 75 06/01/23 20:00 06/01/23 20:00 06/01/23 20:00 3 06/01/23 18:39 75 06/01/23 18:39 06/01/23 18:00 06/01/23 18:00 06/01/23 18:00 75 06/01/23 18:00 75 06/01/23 17:54 75 06/01/23 17:00 75 06/01/23 17:00 06/01/23 16:00 06/01/23 16:00 06/01/23 16:00 75 06/01/23 16:00 75 06/01/23 14:55 06/01/23 14:55 06/01/23 14:00 75 06/01/23 14:00 06/01/23 13:42 06/01/23 13:42 06/01/23 13:05 75 06/01/23 13:00 75 06/01/23 13:00 06/01/23 12:00 06/01/23 12:00 06/01/23 12:00 06/01/23 11:00 06/01/23 11:00 06/01/23 10:05 50 06/01/23 10:00 50 06/01/23 09:47 40 06/01/23 09:40 50 06/01/23 09:37 06/01/23 09:37 06/01/23 09:00 06/01/23 09:00 Intake and Output 06/01/23 06/02/23 06/02/23 23:59 07:59 15:59 Intake Total 425.097 / 2226.127 726.335 / 759.835 33.5 / 759.835 Output Total 355 / 5430 1200 / 1525 325 / 1525 Balance 70.097 / -3203.873 -473.665 / -765.165 -291.5 / -765.165 Intake: Intake, Oral Amount 30 / 30 Intake, Tube Feeding Amount 179 / 976 424 / 424 Intake, Tube Irrigant Amount 120 / 120 Intake, Total IV Amount 216.097 / 1160.127 182.335 / 215.835 33.5 / 215.835 Cefepime HCl 2 gm In 0.9 % 100 / 200 Sodium Chloride 100 ml @ 200 mls/hr IV Q12H [facility] Rx#:[id number] Fentanyl Citrate/Pf 1,000 mcg 17 / 181 54 / 54 In 0.9 % Sodium Chloride 80 ml @ 50 MCG/HR 5 mls/hr IV .Q20H [facility] Rx#:[id number] propofoL 100 ml @ 7 MCG/KG/MIN 12 168 61 / 61 3.78 mls/hr IV .Q24H [facility] Rx#: [id number] Output: Output, Urine Amount 0 / 2250 0 / 325 325 / 325 Output, Urine Amount (Catheter) 355 / 3180 1200 / 1200 Weiss 355 / 3180 1200 / 1200 Output, Gastric Drainage Amount 0 / 0 Oral 0 / 0 Other: Number of Unmeasured Voids 0 0 Weight 77.02 kg Patient Weight 06/02/23 23:59 Weight 77.02 kg Laboratory Results - last 24 hr 06/01/23 05:40: Troponin I 0.08 H 06/01/23 11:49: POC Glucose 88 06/01/23 15:00: Chlamy pneumoniae PCR TNP, Adenovirus (PCR) Not detected, B. pertussis DNA (PCR) TNP, Coronavirus OC43 (PCR) Not detected, Coronavirus HKU1 (PCR) Not detected, Coronavirus 229E (PCR) Not detected, SARS-CoV-2 (PCR) Not detected, Coronavirus NL63 (PCR) Not detected, Human Metapneumovir PCR Not dete cted, Influenza A (H1) PCR Not detected, Influ A (H1N1/09) PCR Not detected, Influenza A (H3) PCR Not detected, Influenza Type A (PCR) Not detected, Influenza Type B (PCR) Not detected, M. pneumoniae (PCR) TNP, Parainfluenza 1 (PCR) Not detected, Parainfluenza 2 (PCR) Not detected, Parainfluenza 3 (PCR) Not detected, Parainfluenza 4 (PCR) Not detected, RSV (PCR) Not detected, Entero/Rhino (PCR) Not detected 06/01/23 16:52: POC Glucose 93 06/01/23 22:51: POC Glucose 88 06/02/23 05:15: WBC 8.2, RBC 4.82, Hgb 14.3, Hct 47.5 H, MCV 98.5, MCH 29.7, MCHC 30.2 L, RDW 19.0 H, Plt Count 71 L, MPV 11.7 H, Neut % (Auto) 72.0, Lymph % (Auto) 12.1, [place] % (Auto) 14.9 H, Eos % (Auto) 0.6, Baso % (Auto) 0.4, Neut # (Auto) 5.9, Lymph # (Auto) 1.0, [place] # (Auto) 1.2 H, Eos # (Auto) 0.1, Baso # (Auto) 0.0, Total Counted 100, Neutrophils % (Manual) 71, Lymphocytes % (Manual) 14, Monocytes % (Manual) 15 H, Nucleated RBCs 2, Platelet Estimate Slight decr ease, RBC Morphology Normal, Sodium 138, Potassium 3.5, Chloride 101, Carbon Dioxide 39 H, Anion Gap 1.5 L, BUN 26 H D, Creatinine 0.80, Estimated Creat Clear 93, Estimated GFR 74, Est GFR ( Amer) 89 D, Glucose 86 D, Calcium 8.4, Phosphorus 2.3 L, Magnesium 1.3 L, Total Bilirubin 1.7 H, AST 42 H, ALT 16 D, Alkaline Phosphatase 113, NT-Pro-B Natriuret Pep 5720 H, Total Protein 4.8 L, Albumin 2.3 L, Globulin 2.5, Albumin/Globulin Ratio 0.9 L 06/02/23 05:19: POC Glucose 81 I & O for Labs for Last 24 Hours: Intake & Output 05/30/23 05/31/23 06/01/23 06/02/23 23:59 23:59 23:59 23:59 Intake Total 547.968 / 652.790 1437.825 / 3802.755 5594.127 / 2226.127 759.835 / 759.835 Output Total 3580 / 3580 5255 / 5255 5430 / 5430 1525 / 1525 Balance -3032.032 / -3032.032 -3647.175 / -3647.175 -3203.873 / -3203.873 - 765.165 / -765.165 Weight 79.52 kg 82.5 kg 79.197 kg 77.02 kg Microbiology Reports for the Last 24 Hours: Microbiology 05/29/23 18:20 Sputum - Endotracheal Tube Aspirate Gram Stain - Final 05/29/23 18:20 Urine,Clean Catch Urine Culture - Final Constitutional: Present no acute distress, average body habitus, chronically ill appearing and somnolent Head: Present atraumatic and normocephalic ENT: Present normal exam Neck: Present normal inspection Respiratory: Present patient mechanically ventilated, wheezes and crackles; Absent rhonchi Cardiac: Present Reg Rate and Rhythm GI: Present soft and normal bowel sounds; Absent distention or tenderness Extremities: Present normal inspection and full ROM; Absent edema Skin: Present intact; Absent erythema Neuro: Present Grossly Intact and moves all extremities Comment:: Somnolent, on sedation Assessment and Plan *Assessment and plan (1) Hypoxic respiratory failure: Status: Acute Qualifiers: Chronicity: acute on chronic Qualified Code(s): J96.21 - Acute and chronic respiratory failure with hypoxia Category: Medical Code(s): J96.91 - Respiratory failure, unspecified with hypoxia (2) Acute exacerbation of CHF (congestive heart failure): Status: Acute Qualifiers: Heart failure type: combined systolic and diastolic Qualified Code(s): I50.43 - Acute on chronic combined systolic (congestive) and diastolic (congestive) heart failure Category: Medical Code(s): I50.9 - Heart failure, unspecified (3) Cardiogenic shock: Status: Acute Category: Medical Code(s): R57.0 - Cardiogenic shock (4) On mechanically assisted ventilation: Status: Acute Category: Medical Code(s): Z99.11 - Dependence on respirator [ventilator] status (5) HFrEF (heart failure with reduced ejection fraction): Status: Acute Category: Medical Code(s): I50.20 - Unspecified systolic (congestive) heart failure (6) Ischemic cardiomyopathy with implantable cardioverter-defibrillator (ICD): Status: Acute Category: Medical Code(s): I25.5 - Ischemic cardiomyopathy; Z95.810 - Presence of automatic (implantable) cardiac defibrillator Plan 57-year-old female history of reported hypertension, hyperlipidemia, CHF with AICD in place currently on Eliquis, diabetes presenting with altered mental status. Patient seen status post intubation, therefore data is limited. Per Ed documentation, patient was reportedly found down, minimally responsive. EMS was called. Patient hypoxemic in the 70s when EMS arrived. Placed on BiPAP, saturations improved to the 90s. On arrival, patient pale, mottled, cyanotic, saturating about [address], GCS 3 and unresponsive, completely obtunded. Bedside ultrasound with plethoric IVC, hyperdynamic heart, free fluid in the abdomen. Patient with no pain response. Patient does have femoral and carotid pulses. Patient good response to current treatment. Opening eyes spontaneously with weaning of sedation. Able to wean off Levophed. Continues to diurese well. Acute on chronic hypoxic respiratory failure: Acute decompensation of CHF. Suspected cardiogenic shock: on mechanical ventilation - Discussed case with pulmonology, patient continues to necessitate mechanical ventilation. Continue tidal volume 420, PEEP 6, FiO2 50%. Will perform SBT today. Extubation in the next day or 2. -Continue DuoNebs every 4 hours scheduled. Still has wheezing but showing improvement -Discontinue vancomycin and cefepime. Blood culture tracheal aspirate is pending. Okay to wean to levofloxacin to complete 7 days of antibiotics. - Continue diuresis, responding well with over 10 L of negative fluid status so far. - Continue sedation with propofol and fentanyl. - Continue famotidine 20 mg IV twice daily -White cell count 8.2. Hemoglobin 14.3. Remains thrombocytopenic at 71. - CXR ordered for the morning Potassium 3.5, magnesium 1.3. Replacing 2 g twice today. Phosphorus 2.3, will replace to with follow-up to make sure. Repeat phosphorus level in the morning. Repeat CBC, CMP, magnesium morning. Acute HFrEF: - continue aggressive diuresis, negative >10 L since admission, -Cardiology consulted, discussed case, continue diuresis. Formal echo pending. -Repeat BMP at 5700, down from 22,000. - AICD in place Thrombocytopenia: Holding Lovenox anticoagulation due to platelets of 71. SCD for DVT ppx famotidine for GI bleed protection Full code
--- NOTE | 2023-06-02 08:40 | PC.WOUNDNOTE ---
skin assessment at start of shift.
--- NOTE | 2023-06-02 08:54 | EXP.CARD.PN ---
Subjective Subjective Date: 06/02/23 Time: 08:54 Principal diagnosis: Resp Failure with hypoxia, cardiogenic shock, HFrEF Interval history: Still sedated on the vent but awakens with spontaneous movements. Intake and output net negative 10 liters this admission BNP improved significantly Troponin improving Exam Data for Last 24 hours Vital signs and Labs for Last 24 Hours: Temp Pulse Resp BP Pulse Ox O2 Del Method O2 Flow Rate 99.9 F H 87 18 113/60 96 Mechanical Ventilation 3 06/02/23 00:00 06/02/23 07:36 06/02/23 07:36 06/02/23 07:36 06/02/23 07:36 06/02/23 07:36 06/01/23 20:00 FiO2 75 06/02/23 07:36 Laboratory Results - last 24 hr 06/01/23 05:40: Troponin I 0.08 H 06/01/23 11:49: POC Glucose 88 06/01/23 15:00: Chlamy pneumoniae PCR TNP, Adenovirus (PCR) Not detected, B. pertussis DNA (PCR) TNP, Coronavirus OC43 (PCR) Not detected, Coronavirus HKU1 (PCR) Not detected, Coronavirus 229E (PCR) Not detected, SARS-CoV-2 (PCR) Not detected, Coronavirus NL63 (PCR) Not detected, Human Metapneumovir PCR Not detected, Influenza A (H1) PCR Not detected, Influ A (H1N1/09) PCR Not detected, Influenza A (H3) PCR Not detected, Influenza Type A (PCR) Not detected, Influenza Type B (PCR) Not detected, M. pneumoniae (PCR) TNP, Parainfluenza 1 (PCR) Not detected, Parainfluenza 2 (PCR) Not detected, Parainfluenza 3 (PCR) Not detected, Parainfluenza 4 (PCR) Not detected, RSV (PCR) Not detected, Entero/Rhino (PCR) Not detected 06/01/23 16:52: POC Glucose 93 06/01/23 22:51: POC Glucose 88 06/02/23 05:15: WBC 8.2, RBC 4.82, Hgb 14.3, Hct 47.5 H, MCV 98.5, MCH 29.7, MCHC 30.2 L, RDW 19.0 H, Plt Count 71 L, MPV 11.7 H, Neut % (Auto) 72.0, Lymph % (Auto) 12.1, [place] % (Auto) 14.9 H, Eos % (Auto) 0.6, Baso % (Auto) 0.4, Neut # (Auto) 5.9, Lymph # (Auto) 1.0, [place] # (Auto) 1.2 H, Eos # (Auto) 0.1, Baso # (Auto) 0.0, Total Counted 100, Neutrophils % (Manual) 71, Lymphocytes % (Manual) 14, Monocytes % (Manual) 15 H, Nucleated RBCs 2, Platelet Estimate Slight decrease, RBC Morphology Normal, Sodium 138, Potassium 3.5, Chloride 101, Carbon Dioxide 39 H, Anion Gap 1.5 L, BUN 26 H D, Creatinine 0.80, Estimated Creat Clear 93, Estimated GFR 74, Est GFR ( Amer) 89 D, Glucose 86 D, Calcium 8.4, Phosphorus 2.3 L, Magnesium 1.3 L, Total Bilirubin 1.7 H, AST 42 H, ALT 16 D, Alkaline Phosphatase 113, NT-Pro-B Natriuret Pep 5720 H, Total Protein 4.8 L, Albumin 2.3 L, Globulin 2.5, Albumin/Globulin Ratio 0.9 L 06/02/23 05:19: POC Glucose 81 I & O for Last 24 hours: Intake & Output 05/30/23 05/31/23 06/01/23 06/02/23 11:59 11:59 11:59 11:59 Intake Total 435.095 / 108.398 1991.218 / 8450.175 1429.14 / 2093.14 1577.962 / 1577.962 Output Total 1025 / 1085 6455 / 6730 5380 / 6080 2930 / 2930 Balance -589.905 / -649.905 -5357.782 / -5632.782 -3341.86 / -3986.86 -1352.038 / -1352.038 Weight 175 lb 4.985 oz 181 lb 14.102 oz 174 lb 9.6 oz 169 lb 12.8 oz Microbiology Reports for the Last 24 Hours: Microbiology 05/29/23 18:20 Sputum - Endotracheal Tube Aspirate Gram Stain - Final 05/29/23 18:20 Urine,Clean Catch Urine Culture - Final *Routine Respiratory Exam Respiratory: Present patient mechanically ventilated *Routine Cardiovascular Exam Cardiovascular: Present RRR Progress Note: A&P Assessment and plan (1) Hypoxic respiratory failure: Status: Acute (2) Acute exacerbation of CHF (congestive heart failure): Status: Acute (3) Cardiogenic shock: Status: Acute (4) On mechanically assisted ventilation: Status: Acute (5) HFrEF (heart failure with reduced ejection fraction): Status: Acute (6) Ischemic cardiomyopathy with implantable cardioverter-defibrillator (ICD): Status: Acute Assessment and Plan Assessment and Plan for All Diagnoses:: 1. Acute respiratory failure with hypoxia -Sedated and intubated, per pulmonary -Antibiotics of vancomycin and cefepime 2. Cardiogenic shock -Improving -off pressors -Preliminary echocardiogram at this time shows near normal EF with greatly reduced RV function and increased RV size 3. HFrEF with small bilateral pleural effusions on chest x-ray (improved) -Continue diuretics as blood pressure allows -BNP 22,900 down to 5720 4. Known coronary artery disease with prior coronary stenting per patient's significant other -Elevated troponin this admission trending down, will consider cardiac catheterization after extubation 5. AICD in situ, brand unknown -Reportedly interrogated last week at her physician's office (Dr. Alves) in [place], [place] 6. Chronic anticoagulation -Eliquis Continue current meds/IV lasix for diuresis Consider adding GDMT for HFrEF as blood pressure allows after extubation Consider cardiac catheterization later this week once extubated
[2023-06-02 09:03] LABS: Vancomycin,Trough 16.6 ug/mL (5.0-10.0)
[2023-06-02] MEDS: MAGNESIUM SULFATE IN WATER 2 GM/50 ML PIGGYBACK IV ×2 (09:25→17:15)
[2023-06-02] MEDS: CEFEPIME HCL 2 GM in 0.9 % SODIUM CHLORIDE 100 ML IV ×2 (09:26→20:59)
[2023-06-02] MEDS: FUROSEMIDE 40MG/4ML VIAL 40 MG IV (09:26)
--- NOTE | 2023-06-02 09:43 | EXP.PULM.PN ---
Subjective *Date: 06/02/23 *Time: 11:11 Pulmonology Exam Inpatient Vital signs and Labs for Last 24 Hours: Temp Pulse Resp BP Pulse Ox O2 Del Method O2 Flow Rate 99.9 F H 87 18 113/60 96 Mechanical Ventilation 3 06/02/23 00:00 06/02/23 07:36 06/02/23 07:36 06/02/23 07:36 06/02/23 07:36 06/02/23 07:36 06/01/23 20:00 FiO2 75 06/02/23 07:36 Laboratory Results - last 24 hr 06/01/23 05:40: Troponin I 0.08 H 06/01/23 11:49: POC Glucose 88 06/01/23 15:00: Chlamy pneumoniae PCR TNP, Adenovirus (PCR) Not detected, B. pertussis DNA (PCR) TNP, Coronavirus OC43 (PCR) Not detected, Coronavirus HKU1 (PCR) Not detected, Coronavirus 229E (PCR) Not detected, SARS-CoV-2 (PCR) Not detected, Coronavirus NL63 (PCR) Not detected, Human Metapneumovir PCR Not detected, Influenza A (H1) PCR Not detected, Influ A (H1N1/09) PCR Not detected, Influenza A (H3) PCR Not detected, Influenza Type A (PCR) Not detected, Influenza Type B (PCR) Not detected, M. pneumoniae (PCR) TNP, Parainfluenza 1 (PCR) Not detected, Parainfluenza 2 (PCR) Not detected, Parainfluenza 3 (PCR) Not detected, Parainfluenza 4 (PCR) Not detected, RSV (PCR) Not detected, Entero/Rhino (PCR) Not detected 06/01/23 16:52: POC Glucose 93 06/01/23 22:51: POC Glucose 88 06/02/23 05:15: WBC 8.2, RBC 4.82, Hgb 14.3, Hct 47.5 H, MCV 98.5, MCH 29.7, MCHC 30.2 L, RDW 19.0 H, Plt Count 71 L, MPV 11.7 H, Neut % (Auto) 72.0, Lymph % (Auto) 12.1, [place] % (Auto) 14.9 H, Eos % (Auto) 0.6, Baso % (Auto) 0.4, Neut # (Auto) 5.9, Lymph # (Auto) 1.0, [place] # (Auto) 1.2 H, Eos # (Auto) 0.1, Baso # (Auto) 0.0, Total Counted 100, Neutrophils % (Manual) 71, Lymphocytes % (Manual) 14, Monocytes % (Manual) 15 H, Nucleated RBCs 2, Platelet Estimate Slight decrease, RBC Morphology Normal, Sodium 138, Potassium 3.5, Chloride 101, Carbon Dioxide 39 H, Anion Gap 1.5 L, BUN 26 H D, Creatinine 0.80, Estimated Creat Clear 93, Estimated GFR 74, Est GFR ( Amer) 89 D, Glucose 86 D, Calcium 8.4, Phosphorus 2.3 L, Magnesium 1.3 L, Total Bilirubin 1.7 H, AST 42 H, ALT 16 D, Alkaline Phosphatase 113, NT-Pro-B Natriuret Pep 5720 H, Total Protein 4.8 L, Albumin 2.3 L, Globulin 2.5, Albumin/Globulin Ratio 0.9 L 06/02/23 05:19: POC Glucose 81 06/02/23 08:18: Vancomycin Trough 16.6 H Temp Pulse Resp BP Pulse Ox O2 Del Method O2 Flow Rate 99.3 F 77 18 101/52 L 95 Mechanical Ventilation 45 06/01/23 04:00 06/01/23 09:37 06/01/23 06:00 06/01/23 06:00 06/01/23 06:00 06/01/23 06:00 05/30/23 01:00 FiO2 60 05/31/23 19:17 Laboratory Results - last 24 hr 05/31/23 11:28: POC Glucose 140 H 05/31/23 16:37: POC Glucose 112 H 06/01/23 05:40: WBC 9.3, RBC 5.02, Hgb 14.8, Hct 49.3 H, MCV 98.2, MCH 29.5, MCHC 30.0 L, RDW 19.1 H, Plt Count 74 L, MPV 10.9 H, Neut % (Auto) 74.0, Lymph % (Auto) 9.4 L, [place] % (Auto) 15.7 H, Eos % (Auto) 0.3, Baso % (Auto) 0.6, Neut # (Auto) 6.8, Lymph # (Auto) 0.9, [place] # (Auto) 1.5 H, Eos # (Auto) 0.0, Baso # (Auto) 0.1, Total Counted 100, Neutrophils % (Manual) 71, Band Neutrophils % 1.0, Lymphocytes % (Manual) 11, Monocytes % (Manual) 17 H, Nucleated RBCs 3, Differential Comment , Platelet Estimate Moderate decrease, RBC Morphology Normal, Sodium 138, Potassium 3.4 L, Chloride 97 L, Carbon Dioxide 39 H, Anion Gap 5.4, BUN 36 H, Creatinine 1.00 D, Estimated Creat Clear 77, Estimated GFR 57 L, Est GFR ( Amer) 69 D, Glucose 110 H, Calcium 8.2 L 06/01/23 08:01: Specimen Source Right radial, O2 % 60, ABG pH 7.49 H, ABG pCO2 47.1 H, ABG pO2 88.8, ABG HCO3 35.2 H, ABG Total CO2 36.6 H, ABG O2 Saturation 97, ABG Base Excess 11.8 H, Ever Test Acceptable, ABG Lactate 1.3, Vent Rate 18, Tidal Volume 420, PEEP 8 I & O for Labs for Last 24 Hours: Intake & Output 05/30/23 05/31/23 06/01/23 06/02/23 23:59 23:59 23:59 23:59 Intake Total 547.968 / 381.718 6477.825 / 2794.540 2565.127 / 2226.127 759.835 / 759.835 Output Total 3580 / 3580 5255 / 5255 5430 / 5430 1525 / 1525 Balance -3032.032 / -3032.032 -3647.175 / -3647.175 -3203.873 / -3203.873 -765.165 / -765.165 Weight 175 lb 4.985 oz 181 lb 14.102 oz 174 lb 9.6 oz 169 lb 12.8 oz Intake & Output 05/29/23 05/30/23 05/31/23 06/01/23 23:59 23:59 23:59 23:59 Intake Total 6.66 / 356.66 547.968 / 950.045 2337.825 / 7917.178 5902 / 1008 Output Total 3580 / 3580 5255 / 5255 2250 / 2250 Balance 6.66 / 356.66 -3032.032 / -3032.032 -3647.175 / -3647.175 -1242 / -1242 Weight 198 lb 6.656 oz 175 lb 4.985 oz 181 lb 14.102 oz 174 lb 9.6 oz Microbiology Reports for the Last 24 Hours: Microbiology 05/29/23 18:11 Blood Blood Culture - Preliminary 05/29/23 19:52 Blood Blood Culture - Preliminary 05/29/23 18:20 Sputum - Endotracheal Tube Aspirate Gram Stain - Final 05/29/23 18:20 Urine,Clean Catch Urine Culture - Final Microbiology 05/29/23 18:20 Sputum - Endotracheal Tube Aspirate Gram Stain - Final 05/29/23 18:20 Urine,Clean Catch Urine Culture - Final Constitutional: Present severe distress Comment:: Intubated and Sedated Head: Present normocephalic and atraumatic Neck: Present normal inspection and trachea midline Respiratory: Present patient mechanically ventilated, respiratory distress, rhonchi and crackles; Absent wheezes or able to speak in complete sentences Cardiac: Present Irregularly Regular and S1/S2 GI: Present soft; Absent distention or tenderness Skin: Present intact; Absent cyanosis Neuro: Present awake; Absent alert or oriented x 3 Comment:: Intubated and sedated Extremities: Present normal inspection and edema; Absent clubbing or cyanosis Psychiatric: Present unable to assess Assessment and Plan *Assessment and plan (1) On mechanically assisted ventilation: Status: Acute Category: Medical Code(s): Z99.11 - Dependence on respirator [ventilator] status (2) Acute respiratory failure with hypoxia: Status: Acute Category: Medical Code(s): J96.01 - Acute respiratory failure with hypoxia Plan Ms. Chandler is a 57-year-old female with reported history of hypertension hyperlipidemia CHF AICD in place on Eliquis diabetes presented to the ER with worsening mentation needing intubation mechanical ventilatory support and pulmonary was consulted over the weekend for further evaluation and management. CTA upon admission no dense consolidation or airspace disease noted. Large right pleural effusion along with adjacent atelectasis noted. Hyperinflated lungs on chest x-ray. Mild neutrophilic predominant leukocytosis upon admission, improving. MARIA upon admission, improving BUN/creatinine with diuretics. Patient on admission was initiated on broad-spectrum antibiotics including vancomycin and cefepime along with DuoNebs every 6 hours on as-needed basis but she continued to receive diuretics on a daily basis is concerning for volume overload and heart failure exacerbation. Interval update: Worsening respiratory status including oxygen requirements overnight. Copious amount of secretions. Gradually improved status, FiO2 weaned to 50% and PEEP to 6 this morning. Will wean sedation and facilitate SBT. Afebrile. Hemodynamically stable. Stable leukocytosis. Plan: Continue to wean sedation to facilitate SBT. Continue mechanical ventilatory support, currently on tidal volume of 420 PEEP of 6 and FiO2 50%. Follow with SBT Continue DuoNebs every 4 hours scheduled. Significant improvement in wheezing. Currently on vancomycin and cefepime. Blood cultures and tracheal aspirate negative so far. Antibiotics can be weaned to levofloxacin to complete a total of 7-day course from pulmonary standpoint. Follow-up with repeat chest x-ray Hemodynamically stable, weaned off vasopressor support. MAP greater than 65. Follow with cardiology recommendations Abdomen soft nondistended. BUN/creatinine improving. Adequate urine output. Continue to receive diuretics. - Continue mechanical ventilatory support - Continue AnalgoSedation with Propofol and Fentanyl with CPOT gal less than or euqal to 2 and RASS goal of to 2 (No need for deep sedation) - VAP bundle Recommend elevate head of the bed at 30 to 45 degrees Recommend oral care with chlorhexidne Recommend GI ulcer prophylaxis - Famotidine 20mg IV BID Recommend chemical DVT prophylaxis Total critical care time spent on this patient is 35 minutes managing acute hypoxic respiratory failure needing mechanical ventilation. This time spent include reviewing test results including interpreting chest x-rays, labs , optimizing the ventilator settings,formulating plan of care, discussing the plan of care with the team and the nursing staff.
--- NOTE | 2023-06-02 09:57 | DIET.NUTRFU ---
Continues to tolerate TF, will hold for SBT today, possible extubation. Continues on lasix with Na 138, K 3.5. Output 5430ml 05/31. No BM nad no BM meds in place, will review in rounds with provider. Received 168ml of propofol on 05/31 providing 184.8kcal. Will continue current TF and monitor tolerance, labs and fluid status.
--- NOTE | 2023-06-02 10:10 | P.CONPHA_ITS ---
Pharmacy Consult Date: 06/02/23 Time: 10:10 Referring provider: DR. SOLIS Reason for Consult:: VANCOMYCIN LEVEL Allergies Allergy/AdvReac Type Severity Reaction Status Date / Time No Known Allergies Allergy Verified 01/21/18 14:48 Home Medications Medication Instructions Recorded Confirmed Type lisinopril 10 mg tablet 10 mg PO DAILY 04/06/17 05/30/23 History apixaban 5 mg tablet (Eliquis) 5 mg PO BID 05/29/23 05/30/23 History clopidogrel 75 mg tablet 75 mg PO DAILY 05/29/23 05/30/23 History folic acid 1 mg tablet 1 mg PO DAILY 05/29/23 05/30/23 History furosemide 20 mg tablet 20 mg PO AM 05/29/23 05/30/23 History metoprolol succinate 50 mg 50 mg PO HS 05/29/23 05/30/23 History tablet,extended release 24 hr montelukast 10 mg tablet 10 mg PO PM 05/29/23 05/30/23 History pantoprazole 40 mg tablet,delayed 40 mg PO DAILY 05/29/23 05/30/23 History release potassium chloride 10 mEq 10 meq PO AM 05/29/23 05/30/23 History capsule,extended release topiramate 25 mg tablet 25 mg PO HS 05/29/23 05/30/23 History gabapentin 600 mg tablet 600 mg PO Q8H 05/30/23 05/30/23 History rosuvastatin 10 mg tablet 10 mg PO HS 05/30/23 05/30/23 History New Prescriptions to Start Prescriptions: Height: 1.68 m Weight: 77.02 kg Laboratory Results:: Laboratory Results - last 24 hr 06/01/23 05:40: Troponin I 0.08 H 06/01/23 11:49: POC Glucose 88 06/01/23 15:00: Chlamy pneumoniae PCR TNP, Adenovirus (PCR) Not detected, B. pertussis DNA (PCR) TNP, Coronavirus OC43 (PCR) Not detected, Coronavirus HKU1 (PCR) Not detected, Coronavirus 229E (PCR) Not detected, SARS-CoV-2 (PCR) Not detected, Coronavirus NL63 (PCR) Not detected, Human Metapneumovir PCR Not detected, Influenza A (H1) PCR Not detected, Influ A (H1N1/09) PCR Not detected, Influenza A (H3) PCR Not detected, Influenza Type A (PCR) Not detected, Influenza Type B (PCR) Not detected, M. pneumoniae (PCR) TNP, Parainfluenza 1 (PCR) Not detected, Parainfluenza 2 (PCR) Not detected, Parainfluenza 3 (PCR) Not detected, Parainfluenza 4 (PCR) Not detected, RSV (PCR) Not detected, Entero/Rhino (PCR) Not detected 06/01/23 16:52: POC Glucose 93 06/01/23 22:51: POC Glucose 88 06/02/23 05:15: WBC 8.2, RBC 4.82, Hgb 14.3, Hct 47.5 H, MCV 98.5, MCH 29.7, MCHC 30.2 L, RDW 19.0 H, Plt Count 71 L, MPV 11.7 H, Neut % (Auto) 72.0, Lymph % (Auto) 12.1, [place] % (Auto) 14.9 H, Eos % (Auto) 0.6, Baso % (Auto) 0.4, Neut # (Auto) 5.9, Lymph # (Auto) 1.0, [place] # (Auto) 1.2 H, Eos # (Auto) 0.1, Baso # (Auto) 0.0, Total Counted 100, Neutrophils % (Manual) 71, Lymphocytes % (Manual) 14, Monocytes % (Manual) 15 H, Nucleated RBCs 2, Platelet Estimate Slight decrease, RBC Morphology Normal, Sodium 138, Potassium 3.5, Chloride 101, Carbon Dioxide 39 H, Anion Gap 1.5 L, BUN 26 H D, Creatinine 0.80, Estimated Creat Clear 93, Estimated GFR 74, Est GFR ( Amer) 89 D, Glucose 86 D, Calcium 8.4, Phosphorus 2.3 L, Magnesium 1.3 L, Total Bilirubin 1.7 H, AST 42 H, ALT 16 D, Alkaline Phosphatase 113, NT-Pro-B Natriuret Pep 5720 H, Total Protein 4.8 L, Albumin 2.3 L, Globulin 2.5, Albumin/Globulin Ratio 0.9 L 06/02/23 05:19: POC Glucose 81 06/02/23 08:18: Vancomycin Trough 16.6 H Medical History: Medical History (Updated 06/01/23 @ 11:49 by Ilda Santoyo MD) Acute respiratory failure with hypoxia ICD (implantable cardioverter-defibrillator) in place Hypertension Hyperlipemia Claudication Chronic respiratory failure Left ventricular thrombosis Ischemic cardiomyopathy with implantable cardioverter-defibrillator (ICD) Venous (peripheral) insufficiency HFrEF (heart failure with reduced ejection fraction) Seizure Assessment and Plan Assessment and plan all Dx Assessment and Plan for all problems:: PATIENT'S VANCOMYCIN TROUGH LEVEL WAS 16.6 MCG/ML THIS AM. RECOMMEND CONTINUE WITH CURRENT DOSE AND INTERVAL OF VANCOMYCIN 1500 MG Q24H AT THIS TIME.
[2023-06-02] MEDS: VANCOMYCIN/WATER FOR INJ (PEG) 1.5 GM/300 ML PIGGYBACK IV (10:25)
--- NOTE | 2023-06-02 11:13 | XR_ITS ---
FINAL REPORT CLINICAL HISTORY: Hypoxia COMPARISON: 05/29/2023 FINDINGS: SINGLE-VIEW CHEST The heart size is normal. The mediastinum is normal. Endotracheal tube is 9 cm superior to the terrence. Right IJ central venous catheter terminates at the junction of the SVC and right atrium. Right subclavian pacer is identified. Right effusion has decreased since prior. Small bilateral pleural effusions are noted. There is no pneumothorax. IMPRESSION: Support lines and tubes as above. Small bilateral pleural effusions. Reviewed, Interpreted and Dictated by Clark Diggs MD Transcribed by Lola West Authenticated and [facility]
[2023-06-02 11:21] LABS: POC Glucose,Bedside 94 (70-110)
[2023-06-02] MEDS: K-PHOS NEUTRAL 250MG TABLET 250 MG PO ×2 (14:05→20:59)
[2023-06-02] MEDS: POLYETHYLENE GLYCOL 3350 17 GM PACKET PO (14:05)
[2023-06-02 17:29] LABS: POC Glucose,Bedside 98 (70-110)
[2023-06-02] MEDS: PANTOPRAZOLE 40MG VIAL 40 MG IV (20:59)
--- NOTE | 2023-06-02 21:45 | XR_ITS ---
PROCEDURE INFORMATION: Exam: XR Abdomen Exam date and time: 06/02/2023 9:53 PM Age: 57 years old Clinical indication: Device placement; Gi device; Other: Og; Additional info: Og placement TECHNIQUE: Imaging protocol: Radiologic exam of the abdomen. Views: Frontal supine view of the abdomen. 1 View. COMPARISON: CT ANGIO ABDOMEN PELVIS 05/29/2023 8:32 PM FINDINGS: Tubes, catheters and devices: NG tube noted extending into the fundus of the stomach with side hole in the GE junction. Bowel gas pattern otherwise unremarkable. Gastrointestinal tract: See Tubes, catheters and devices finding. Bones/joints: Unremarkable. IMPRESSION: NG tube in the stomach as above.
--- NOTE | 2023-06-02 22:00 | XR_ITS ---
PROCEDURE INFORMATION: Exam: XR Chest Exam date and time: 06/02/2023 9:58 PM Age: 57 years old Clinical indication: Cough TECHNIQUE: Imaging protocol: Radiologic exam of the chest. Views: 1 view. COMPARISON: CR XR CHEST PORTABLE 06/02/2023 11:43 AM FINDINGS: Tubes, catheters and devices: ETT 7.2 cm above the terrence. NG tube noted extending into the fundus of the stomach with the side hole at the GE junction. Right IJ central line with tip in the cavoatrial junction noted. Stable position of the single lead pacer lead. Lungs: Bibasilar lung opacities compatible with posterior layering pleural effusions and associated atelectasis or consolidation similar to previous. Lungs are otherwise clear. Pleural spaces: See Lungs finding. Heart/Mediastinum: Cardiomegaly is stable. Bones/joints: Unremarkable. IMPRESSION: 1. Tube and line position as above. 2. Bibasilar effusions and associated atelectasis or consolidation.
[2023-06-02 23:53] LABS: POC Glucose,Bedside 78 (70-110)
[2023-06-03] VITALS (22 sets, daily range): BP systolic 125–150; BP diastolic 61–90; PULSE 79–118; RESP 14–24; TEMP 36.9–37.6; O2SAT 79–97; BMI 25.4
[2023-06-03] MEDS: IPRATROPIUM/ALBUTEROL 3 ML NEB IH ×3 (01:53→09:05)
--- NOTE | 2023-06-03 06:00 | XR_ITS ---
FINAL REPORT CLINICAL HISTORY: verify ETT/OG COMPARISON: 06/02/2023 FINDINGS: SINGLE-VIEW CHEST There is mild cardiomegaly. Endotracheal tube is unchanged. Right IJ central venous catheter is in the right atrium. Right-sided pacemaker is identified. The mediastinum is normal. Small to moderate effusions are stable. There is no pneumothorax. IMPRESSION: No significant change from previous. Reviewed, Interpreted and Dictated by Clark Diggs MD Transcribed by Lola West Authenticated and [facility]
[2023-06-03 06:05] LABS: POC Glucose,Bedside 89 (70-110)
[2023-06-03 06:24] LABS: MANUAL DIFFERENTIAL MANUAL DIFFERENTIAL (MANUAL DIFF)
[2023-06-03 06:41] LABS: Chloride 100 mmol/L (98-107); Potassium 3.3 mmoL/L (3.5-5.1); Sodium 135 mmol/L (136-145)
[2023-06-03 06:43] LABS: Blood Urea Nitrogen 18 mg/dl (7-17); Creatinine Clearance Estimated 99 mL/min (50-200); Estimated Glomerular Filt Rate 86 ml/min (>60); GFR (African American) 104 ML/MIN (>60)
[2023-06-03 06:44] LABS: Alanine Aminotransferase 22 U/L (12-78); Albumin Level 2.6 g/dl (3.5-5.0); Alkaline Phosphatase 158 U/L (38-126); Anion Gap 3.3 mEq/L (5-15); Aspartate Amino Transferase 55 U/L (14-36); Bilirubin,Total 2.8 mg/dl (0.2-1.3); Carbon Dioxide 35 mmol/L (22.0-30.0); Globulin 2.7 g/dL (1.3-3.2); Total Protein,Serum 5.3 g/dl (6.3-8.2)
[2023-06-03 06:45] LABS: Calcium 8.9 mg/dl (8.4-10.2); Glucose 74 mg/dl (74-100)
[2023-06-03 06:53] LABS: Basophils % 0.2 % (0.1-2.0); Eosinophils # 0.1 K/mm3 (0.0-0.4); Eosinophils % 0.8 % (0.1-12.0); Hematocrit 48.3 % (37.0-47.0); Hemoglobin 14.6 g/dL (12.2-16.2); Lymphocytes # 1.1 K/mm3 (0.7-4.5); Lymphocytes % 13.2 % (10-50); Mean Corpuscular HGB Conc 30.2 g/dL (31.8-35.4); Mean Corpuscular Hemoglobin 29.4 pg (27.0-31.2); Mean Corpuscular Volume 97.5 fl (81-99); Mean Platelet Volume 10.5 fl (7.4-10.4); Monocytes # 0.8 K/mm3 (0.1-1.0); Monocytes % 9.8 % (1.7-9.3); Neutrophils # 6.2 K/mm3 (1.8-7.8); Platelet Count 71 K/mm3 (142-424); Red Blood Count 4.95 M/mm3 (4.20-5.40); White Blood Count 8.2 K/mm3 (4.8-10.8)
--- NOTE | 2023-06-03 07:15 | PC.NURSE ---
Pt placed on SBT at this time.
[2023-06-03 07:25] LABS: Magnesium 1.8 mg/dl (1.6-2.3)
[2023-06-03 07:57] LABS: Phosphorous 2.1 mg/dl (2.5-4.5)
--- NOTE | 2023-06-03 08:19 | P.PN_ITS ---
Subjective Subjective Date: 06/03/23 Time: 08:19 Principal diagnosis: Resp Failure with hypoxia, cardiogenic shock, HFrEF Interval history: 57-year-old white female awake/alert but still on mechanical ventilation. She continues to improve from a pulmonary standpoint with plans for weaning and possible extubation later today. She has now diuresed 14 L more than she has taken in Exam Data for Last 24 hours Vital signs and Labs for Last 24 Hours: Temp Pulse Resp BP Pulse Ox O2 Del Method O2 Flow Rate 99.7 F H 108 H 16 139/84 96 Mechanical Ventilation 3 06/03/23 08:00 06/03/23 08:00 06/03/23 08:00 06/03/23 08:00 06/03/23 08:00 06/03/23 08:00 06/01/23 20:00 FiO2 45 06/03/23 06:28 Laboratory Results - last 24 hr 06/02/23 08:18: Vancomycin Trough 16.6 H 06/02/23 11:10: POC Glucose 94 06/02/23 13:08: Vancomycin Peak 44.0 H* 06/02/23 17:12: POC Glucose 98 06/02/23 23:44: POC Glucose 78 06/03/23 05:14: WBC 8.2, RBC 4.95, Hgb 14.6, Hct 48.3 H, MCV 97.5, MCH 29.4, MCHC 30.2 L, RDW 19.0 H, Plt Count 71 L, MPV 10.5 H, Neut % (Auto) 76.0, Lymph % (Auto) 13.2, [place] % (Auto) 9.8 H, Eos % (Auto) 0.8, Baso % (Auto) 0.2, Neut # (Auto) 6.2, Lymph # (Auto) 1.1, [place] # (Auto) 0.8, Eos # (Auto) 0.1, Baso # (Auto) 0.0, Sodium 135 L, Potassium 3.3 L, Chloride 100, Carbon Dioxide 35 H, Anion Gap 3.3 L, BUN 18 H D, Creatinine 0.70, Estimated Creat Clear 99, Estimated GFR 86, Est GFR ( Amer) 104, Glucose 74, Calcium 8.9, Phosphorus 2.1 L, Magnesium 1.8 D, Total Bilirubin 2.8 H, AST 55 H D, ALT 22 D , Alkaline Phosphatase 158 H, Total Protein 5.3 L, Albumin 2.6 L D, Globulin 2.7, Albumin/Globulin Ratio 1.0 L 06/03/23 05:53: POC Glucose 89 I & O for Last 24 hours: Intake & Output 05/31/23 06/01/23 06/02/23 06/03/23 11:59 11:59 11:59 11:59 Intake Total 1097.218 / 0077.013 3541.14 / 2093.14 2115.517 / 2265.517 990.678 / 990.678 Output Total 6455 / 6730 5380 / 6080 3880 / 4305 4200 / 4200 Balance -5357.782 / -5632.782 -3341.86 / -3986.86 -1764.483 / -2039.483 - 3209.322 / -3209.322 Weight 181 lb 14.102 oz 174 lb 9.6 oz 169 lb 12.8 oz 158 lb 6.4 oz Microbiology Reports for the Last 24 Hours: Microbiology 05/29/23 18:11 Blood Blood Culture - Preliminary 05/29/23 19:52 Blood Blood Culture - Preliminary *Routine Respiratory Exam Respiratory: Present patient mechanically ventilated *Routine Cardiovascular Exam Cardiovascular: Present RRR and tachycardia Progress Note: A&P Assessment and plan (1) Hypoxic respiratory failure: Status: Acute (2) Acute exacerbation of CHF (congestive heart failure): Status: Acute (3) Cardiogenic shock: Status: Acute (4) On mechanically assisted ventilation: Status: Acute (5) HFrEF (heart failure with reduced ejection fraction): Status: Acute (6) Ischemic cardiomyopathy with implantable cardioverter-defibrillator (ICD): Status: Acute Assessment and Plan Assessment and Plan for All Diagnoses:: 1. Acute respiratory failure with hypoxia -Off sedation but still intubated, per pulmonary -on levofloxacin 2. Cardiogenic shock -Resolved -off pressors -Preliminary echocardiogram shows near normal EF with greatly reduced RV function and increased RV size 3. HFrEF with small bilateral pleural effusions on chest x-ray (improved) -Continue diuretics as blood pressure allows -BNP 22,900 down to 5720, recheck today 4. Known coronary artery disease with prior coronary stenting per patient's significant other -Elevated troponin this admission trending down, will consider cardiac catheterization after extubation 5. AICD in situ, brand unknown -Reportedly interrogated last week at her physician's office (Dr. Alves) in [place], [place] 6. Chronic anticoagulation -Eliquis 7. Hypokalemia -Start replacement Continue current meds/IV lasix for diuresis Start GDMT in a.m. with oral Lasix, spironolactone, Farxiga, lisinopril and metoprolol Hold Eliquis in preparation of cardiac catheterization later this week Consider cardiac catheterization later this week once extubated
[2023-06-03] MEDS: POLYETHYLENE GLYCOL 3350 17 GM PACKET PO (08:23)
[2023-06-03] MEDS: FUROSEMIDE 40MG/4ML VIAL 40 MG IV (08:24)
[2023-06-03] MEDS: K-PHOS NEUTRAL 250MG TABLET 250 MG PO (08:24)
[2023-06-03] MEDS: LEVOFLOXACIN/D5W 750 MG/150 ML 750 MG/150 ML PIGGYBACK 100 MG IV (08:31)
[2023-06-03] MEDS: KCl 20mEq/100ml 100 ML 50 MEQ IV ×3 (08:37→12:36)
[2023-06-03 08:44] LABS: Lymphocytes % 14 % (10-50); Monocytes % 3 % (2-9); Neutrophils % 83 % (42-76); Platelet Estimate Moderate Decrease; RBC Morphology Normal; Total Cells Counted 100
[2023-06-03 09:14] LABS: NT Pro Brain Natriuretic Pep. 13400 pg/mL (0-125)
--- NOTE | 2023-06-03 10:39 | P.PN_ITS ---
Subjective *Date: 06/03/23 *Time: 10:39 Interval history: No acute respiratory vents overnight. Continue to remain on minimal ventilator settings. Pulmonology Exam Inpatient Vital signs and Labs for Last 24 Hours: Temp Pulse Resp BP Pulse Ox O2 Del Method O2 Flow Rate 99.7 F H 106 H 14 125/75 97 Mechanical Ventilation 3 06/03/23 09:00 06/03/23 09:05 06/03/23 09:06 06/03/23 09:00 06/03/23 09:06 06/03/23 09:00 06/01/23 20:00 FiO2 45 06/03/23 09:06 Laboratory Results - last 24 hr 06/02/23 11:10: POC Glucose 94 06/02/23 13:08: Vancomycin Peak 44.0 H* 06/02/23 17:12: POC Glucose 98 06/02/23 23:44: POC Glucose 78 06/03/23 05:14: WBC 8.2, RBC 4.95, Hgb 14.6, Hct 48.3 H, MCV 97.5, MCH 29.4, MCHC 30.2 L, RDW 19.0 H, Plt Count 71 L, MPV 10.5 H, Neut % (Auto) 76.0, Lymph % (Auto) 13.2, [place] % (Auto) 9.8 H, Eos % (Auto) 0.8, Baso % (Auto) 0.2, Neut # (Auto) 6.2, Lymph # (Auto) 1.1, [place] # (Auto) 0.8, Eos # (Auto) 0.1, Baso # (Auto) 0.0, Total Counted 100, Neutrophils % (Manual) 83 H, Lymphocytes % (Manual) 14, Monocytes % (Manual) 3, Platelet Estimate Moderate decrease, RBC Morphology Normal, Sodium 135 L, Potassium 3.3 L, Chloride 100, Carbon Dioxide 35 H, Anion Gap 3.3 L, BUN 18 H D, Creatinine 0.70, Estimated Creat Clear 99, Estimated GFR 86, Est GFR ( Amer) 104, Glucose 74, Calcium 8.9, Ph osphorus 2.1 L, Magnesium 1.8 D, Total Bilirubin 2.8 H, AST 55 H D, ALT 22 D, Alkaline Phosphatase 158 H, NT-Pro-B Natriuret Pep 67301 H, Total Protein 5.3 L, Albumin 2.6 L D, Globulin 2.7, Albumin/Globulin Ratio 1.0 L 06/03/23 05:53: POC Glucose 89 Temp Pulse Resp BP Pulse Ox O2 Del Method O2 Flow Rate 99.3 F 77 18 101/52 L 95 Mechanical Ventilation 45 06/01/23 04:00 06/01/23 09:37 06/01/23 06:00 06/01/23 06:00 06/01/23 06:00 06/01/23 06:00 05/30/23 01:00 FiO2 60 05/31/23 19:17 Laboratory Results - last 24 hr 05/31/23 11:28: POC Glucose 140 H 05/31/23 16:37: POC Glucose 112 H 06/01/23 05:40: WBC 9.3, RBC 5.02, Hgb 14.8, Hct 49.3 H, MCV 98.2, MCH 29.5, MCHC 30.0 L, RDW 19.1 H, Plt Count 74 L, MPV 10.9 H, Neut % (Auto) 74.0, Lymph % (Auto) 9.4 L, [place] % (Auto) 15.7 H, Eos % (Auto) 0.3, Baso % (Auto) 0.6, Neut # (Auto) 6.8, Lymph # (Auto) 0.9, [place] # (Auto) 1.5 H, Eos # (Auto) 0.0, Baso # (Auto) 0.1, Total Counted 100, Neutrophils % (Manual) 71, Band Neutrophils % 1.0, Lymphocytes % (Manual) 11, Monocytes % (Manual) 17 H, Nucleated RBCs 3, Differential Comment , Platelet Estimate Moderate decrease, RBC Morphology Normal, Sodium 138, Potassium 3.4 L, Chloride 97 L, Carbon Dioxide 39 H, Anion Gap 5.4, BUN 36 H, Creatinine 1.00 D, Estimated Creat Clear 77, Estimated GFR 57 L, Est GFR ( Amer) 69 D, Glucose 110 H, Calcium 8.2 L 06/01/23 08:01: Specimen Source Right radial, O2 % 60, ABG pH 7.49 H, ABG pCO2 47.1 H, ABG pO2 88.8, ABG HCO3 35.2 H, ABG Total CO2 36.6 H, ABG O2 Saturation 97, ABG Base Excess 11.8 H, Ever Test Acceptable, ABG Lactate 1.3, Vent Rate 18, Tidal Volume 420, PEEP 8 I & O for Labs for Last 24 Hours: Intake & Output 05/31/23 06/01/23 06/02/23 06/03/23 23:59 23:59 23:59 23:59 Intake Total 1607.825 / 5205.134 1816.127 / 2226.127 2239.689 / 2239.689 48.379 / 48.379 Output Total 5255 / 5255 5430 / 5430 5600 / 5750 1715 / 1715 Balance -3647.175 / -3647.175 -3203.873 / -3203.873 -3360.311 / -3510.311 - 1666.621 / -1666.621 Weight 181 lb 14.102 oz 174 lb 9.6 oz 169 lb 12.8 oz 158 lb 6.4 oz Intake & Output 05/29/23 05/30/23 05/31/23 06/01/23 23:59 23:59 23:59 23:59 Intake Total 6.66 / 356.66 547.968 / 164.199 9813.825 / 9256.844 7131 / 1008 Output Total 3580 / 3580 5255 / 5255 2250 / 2250 Balance 6.66 / 356.66 -3032.032 / -3032.032 -3647.175 / -3647.175 -1242 / -1242 Weight 198 lb 6.656 oz 175 lb 4.985 oz 181 lb 14.102 oz 174 lb 9.6 oz Microbiology Reports for the Last 24 Hours: Microbiology 05/29/23 18:11 Blood Blood Culture - Preliminary 05/29/23 19:52 Blood Blood Culture - Preliminary Microbiology 05/29/23 18:20 Sputum - Endotracheal Tube Aspirate Gram Stain - Final 05/29/23 18:20 Urine,Clean Catch Urine Culture - Final Constitutional: Present severe distress Comment:: Intubated and Sedated Head: Present normocephalic and atraumatic Neck: Present normal inspection and trachea midline Respiratory: Present patient mechanically ventilated, respiratory distress, rhonchi and crackles; Absent wheezes Cardiac: Present Irregularly Regular and S1/S2 GI: Present soft; Absent distention or tenderness Skin: Present intact; Absent cyanosis Neuro: Present alert and awake; Absent oriented x 3 Comment:: Intubated and sedated Extremities: Present normal inspection and edema; Absent clubbing or cyanosis Psychiatric: Present unable to assess Assessment and Plan *Assessment and plan (1) On mechanically assisted ventilation: Status: Acute Category: Medical Code(s): Z99.11 - Dependence on respirator [ventilator] status (2) Acute respiratory failure with hypoxia: Status: Acute Category: Medical Code(s): J96.01 - Acute respiratory failure with hypoxia (3) Pleural effusion, bilateral: Status: Acute Category: Medical Code(s): J90 - Pleural effusion, not elsewhere classified (4) Pneumonia: Status: Acute Category: Medical Code(s): J18.9 - Pneumonia, unspecified organism Plan Ms. Chandler is a 57-year-old female with reported history of hypertension hyperlipidemia CHF AICD in place on Eliquis diabetes presented to the ER with worsening mentation needing intubation mechanical ventilatory support and pulmonary was consulted over the weekend for further evaluation and management. CTA upon admission no dense consolidation or airspace disease noted. Large right pleural effusion along with adjacent atelectasis noted. Hyperinflated lungs on chest x-ray. Mild neutrophilic predominant leukocytosis upon admission, improving. MARIA upon admission, improving BUN/creatinine with diuretics. Patient on admission was initiated on broad-spectrum antibiotics including vancomycin and cefepime along with DuoNebs every 6 hours on as-needed basis but she continued to receive diuretics on a daily basis is concerning for volume overload and heart failure exacerbation. Interval update: No acute respiratory events overnight. Minimal oxygen requirements. Chest x- ray improving airspace disease. Continue show bilateral effusions right greater than left, improving from admission. Alert and awake. Following commands. Successfully passed SBT this morning, will extubate patient Plan: Extubate to nasal cannula Trelegy 100 inhaler along with DuoNebs every 6 hours and as needed basis Continue levofloxacin to complete total of 7-day course # Thank you for involving pulmonary in this patient care. Will continue to follow.
--- NOTE | 2023-06-03 10:45 | PC.NURSE ---
Patient extubated at 1029 on to 6LNC
[2023-06-03 11:25] LABS: POC Glucose,Bedside 86 (70-110)
--- NOTE | 2023-06-03 12:25 | DIET.NUTRFU ---
Patient was extubated, TOOLMAN ordered to eval for safe oral diet. No BM noted, miralax ordered. Labs reviewed, Na 135L-lasix continues. Urne output was 5600ml yesterday
--- NOTE | 2023-06-03 13:59 | HMH.OTEV ---
OT Inpatient Evaluation Rehab OT IP Evaluation Start: 06/03/23 11:08 Freq: ONCE Status: Active Protocol: Document 06/03/23 13:48 NELSON (Rec: 06/03/23 13:59 NELSON [id number]) Rehab OT IP Assessment Subjective History Ms. Chandler is a 57-year-old female with reported history of hypertension hyperlipidemia CHF AICD in place on Eliquis diabetes presented to the ER with worsening mentation needing intubation mechanical ventilatory support and pulmonary was consulted over the weekend for further evaluation and management. CTA upon admission no dense consolidation or airspace disease noted. Large right pleural effusion along with adjacent atelectasis noted. Hyperinflated lungs on chest x -ray. Mild neutrophilic predominant leukocytosis upon admission, improving. MARIA upon admission , improving BUN/creatinine with diuretics. Patient on admission was initiated on broad-spectrum antibiotics including vancomycin and cefepime along with DuoNebs every 6 hours on as-needed basis but she continued to receive diuretics on a daily basis is concerning for volume overload and heart failure exacerbation. Interval update: No acute respiratory events overnight. Minimal oxygen requirements. Chest x-ray improving airspace disease. Continue show bilateral effusions right greater than left, improving from admission . Alert and awake. Following commands. Successfully passed SBT this morning, will extubate patient Plan: Extubate to nasal cannula Trelegy 100 inhaler along with DuoNebs every 6 hours and as needed basis Continue levofloxacin to complete total of 7-day course . Patient lives with and was independent with all ADLs and fx'l mobility prior to hospitalization. Subjective I can get up. Instructed Patient on proper hand and foot placement to complete bed mobility from supine->sit @ EOB->SPT to recliner requiring Min A x2. Patient demonstrated good dynamic sitting balance at EOB and fair dynamic standing balance during transition. Left Patient sitting upright in chair with needs met at end of session. Objective Patient Orientation Person,Place,Name,Age,Year Right Upper Extremity Gross ROM WFL Left Upper Extremity Gross ROM WFL Bed Mobility bed mobility - supine/sit Assist Level Minimal x 2 (25% assist) Transfer Training Sit/Stand/Pivot Transfer Assist Level Minimal x 2 (25% assist) Chair Transfer Ability Minimal x 2 (25% assist) Chair Transfer Technique Stand Step Pivot Chair Transfer Assistive Devices None Rehab OT IP prob,goals,plan Problems Date of Evaluation: 06/03/23 OT IP Problems Bed Mobility,Transfers,Balance ,Self care,Safety Rehab Potential Rehab Potential Good Equipment Needs Assistive Devices None / NA Plan OT intervention Plan Bed Mobility,Transfers,Balance ,Self care,Safety,Therapeutic Exercise OT Plan Frequency Daily Duration LOS Discharge Goals Bed Mobility Ability Assistance x1 Sit to Stand Chair Transfer Ability Contact Guard/Hand Hold Chair Transfer Ability Contact Guard/Hand Hold Chair Transfer Technique Stand Step Pivot Discharge Plan OT Discharge Plan Recommend Patient for placement in order to improve independence with ADLs and fx' l mobility at this time. Patient will require increase amount of assistance to complete the tasks above with 01/09 care. Patient to continue to be seen at [facility] IP services til appropriate d/c. Eval Complexity Eval Charge Codes 33452 - Low Complexity PHYSICIAN CERTIFICATION: I certify the specified therapy services for Lena Chandelr are required, authorized, and reviewed every 30 days.
--- NOTE | 2023-06-03 14:13 | HMH.PTEV ---
Physical Therapy Evaluation Rehab PT IP Evaluation Start: 06/03/23 11:08 Freq: ONCE Status: Active Protocol: Document 06/03/23 13:15 JON (Rec: 06/03/23 14:11 PHORONESIMO [id number]) Subjective/History History History Ms. Chandler is a 57-year-old female with reported history of hypertension hyperlipidemia CHF AICD in place on Eliquis diabetes presented to the ER with worsening mentation needing intubation mechanical ventilatory support and pulmonary was consulted over the weekend for further evaluation and management. CTA upon admission no dense consolidation or airspace disease noted. Large right pleural effusion along with adjacent atelectasis noted. Hyperinflated lungs on chest x -ray. Mild neutrophilic predominant leukocytosis upon admission, improving. MARIA upon admission , improving BUN/creatinine with diuretics. Patient on admission was initiated on broad-spectrum antibiotics including vancomycin and cefepime along with DuoNebs every 6 hours on as-needed basis but she continued to receive diuretics on a daily basis is concerning for volume overload and heart failure exacerbation. Interval update: No acute respiratory events overnight. Minimal oxygen requirements. Chest x-ray improving airspace disease. Continue show bilateral effusions right greater than left, improving from admission . Alert and awake. Following commands. Successfully passed SBT this morning, will extubate patient Plan: Extubate to nasal cannula Trelegy 100 inhaler along with DuoNebs every 6 hours and as needed basis Continue levofloxacin to complete total of 7-day course . Patient lives with and was independent with all ADLs and fx'l mobility prior to hospitalization. Subjective Subjective Pt had no c/o increased pain with mobility at this time. New diagnosis of cancer in past 12 No months? Rehab PT IP Eval Objective Appearance Patient Behavior Appropriate Patient Orientation Person,Place,Time Difficulty following instructions none Speech Pattern Clear Ambulation Patient Able to Ambulate Yes Ambulation Observation IP General Gait Pattern Observation Narrow Based Gait,Shuffling Step Ambulation Distance (feet) 5 Ambulation Assistive Device None Ambulation Ability Minimal x 2 (25% assist) Balance Ability to Arise Able, uses arms to help Sitting Balance Steady, safe Standing Balance Unsteady Dynamic Sitting Balance Ability Good Dynamic Standing Balance Ability Fair Transfers Bed Transfer Ability Minimal x 2 (25% assist) Chair Transfer Ability Minimal x 2 (25% assist) Sit to Stand Bed Transfer Ability Minimal x 2 (25% assist) Sit to Stand Chair Transfer Ability Minimal x 2 (25% assist) Rehab PT IP prob,goals,plan Problems Date of Evaluation: 06/03/23 PT IP Problems Bed Mobility,Transfers,Gait, Self care Rehab Potential Rehab Potential Good Plan PT Intervention Plan Bed Mobility,Transfers,Gait, Self care,Therapeutic Exercise PT Plan Frequency Daily Duration LOS Discharge Goals Bed Transfer Ability Minimal x 1 (25% assist) Sit to Stand Chair Transfer Ability Minimal x 1 (25% assist) Ambulation Assistive Device Rolling Walker Ambulation Distance (feet) 20 Discharge Plan PT Discharge Plan Pt is currently most appropriate for rehab placement once medically stable for d/c. She is appropriate for skilled therapy treatment to return to prior level of function and prevent further debility, falls, and injury. Eval Complexity Eval Charge Codes 01573 - High Complexity PHYSICIAN CERTIFICATION: I certify the specified therapy services for Lena Chandler are required, authorized, and reviewed every 30 days.
--- NOTE | 2023-06-03 16:16 | PC.NURSE ---
patient passed bedside swallow eval. Patient stated she was scared of aspirating. Mechanical soft diet ordered
[2023-06-03 16:38] LABS: POC Glucose,Bedside 84 (70-110)
--- NOTE | 2023-06-03 16:40 | CARE MANAGER ---
Addendum entered by Christiane Cuba RN 06/05/23 15:44: Patient has an authorization and is planned for discharge to [facility] today. Report should be called to [phone] and packet faxed to [phone]. Addendum entered by Christiane Cuba RN 06/05/23 11:11: Patient has accepted a bed offer for [facility]. Per Mary Ellen authorization was started this morning with hopes of afternoon discharge if auth is obtained today. Patient's family plans to transport patient and is aware of need for home portable O2 being brought to hospital prior to DC. Mary Ellen also states that she is able to take patient over the weekend if auth is not obtained until then. Addendum entered by Christiane Cuba RN 06/05/23 07:44: Patient has been offered a bed at [facility] [place], however bed is not available until Thursday. We are waiting to hear back from [facility] this morning before accepting with [facility] [place]. Addendum entered by Christiane Cuba RN 06/04/23 13:02: [facility] does not have a bed to offer. We continue to wait on [facility], also faxed to [facility] today. Original Note: Per therapy patient will benefit from short term rehab. Spoke with patient who requested somewhere in town. Nowhere in town is in network with [employer]. Spoke with patient again and they request just start with the closest and see if bed available. Have sent information to [facility], but they will not have a bed until Thursday. Left message with [facility], but also faxed information there as well.
--- NOTE | 2023-06-03 17:57 | PC.NURSE ---
Addendum entered by Leila Alves CMA 06/03/23 18:04: Mupirocin ointment ordered for rash on inner thighs and labia Original Note: Patient on 4LNC. Patient tolerating well. Scuds removed temporarily per patient request. VS stable. Potassium replaced IV. Lung sounds diminished bilaterally. Loose BM today. Patient passed bedside swallow and tolerating mechanical soft foods. Patient HR 120s with activity but not sustaining. MD notified. Cardiology to restart in AM.
--- NOTE | 2023-06-03 18:53 | P.PN_ITS ---
Subjective *Date: 06/03/23 *Time: 23:38 Interval history: Passed her SBT this morning. Able to extubate on rounds. Patient interactive after that. States she is feeling better. Denies any chest pain at this time. No nausea or vomiting. -14 L since admission. No acute events overnight Medical Exam Vital signs and Labs for Last 24 Hours: Vital Signs Temp Pulse Pulse Resp BP Pulse Ox O2 Del Method 06/03/23 18:40 Nasal Cannula 06/03/23 16:44 Nasal Cannula 06/03/23 16:00 110 H 06/03/23 15:39 96 Nasal Cannula 06/03/23 15:37 98.4 F 06/03/23 14:40 Nasal Cannula 06/03/23 12:54 Nasal Cannula 06/03/23 12:00 110 H 06/03/23 12:00 98.6 F 06/03/23 11:00 99.7 F H 110 H 22 125/77 95 Nasal Cannula 06/03/23 11:00 Nasal Cannula 06/03/23 10:00 99.5 F 108 H 22 135/77 97 Mechanical Ventilation 06/03/23 09:06 14 97 06/03/23 09:05 106 H 06/03/23 09:05 105 H 06/03/23 09:00 99.7 F H 105 H 18 125/75 94 L Mechanical Ventilation 06/03/23 09:00 Mechanical Ventilation 06/03/23 08:00 100 H 06/03/23 08:00 99.7 F H 108 H 16 139/84 96 Mechanical Ventilation 06/03/23 07:33 95 Mechanical Ventilation 06/03/23 07:00 99.7 F H 99 H 24 150/82 H 96 Mechanical Ventilation 06/03/23 06:28 98 H 06/03/23 06:28 86 06/03/23 06:28 18 96 06/03/23 06:00 99.5 F 90 15 138/61 94 L Mechanical Ventilation 06/03/23 05:00 99.7 F H 94 H 20 140/84 97 Mechanical Ventilation 06/03/23 05:00 Mechanical Ventilation 06/03/23 04:00 101 H 06/03/23 04:00 99.7 F H 100 H 22 137/86 94 L Mechanical Ventilation 06/03/23 03:00 99.5 F 86 20 133/78 93 L Mechanical Ventilation 06/03/23 03:00 Mechanical Ventilation 06/03/23 02:21 20 06/03/23 02:20 82 06/03/23 02:20 82 06/03/23 02:00 99.5 F 79 22 136/80 79 L Mechanical Ventilation 06/03/23 01:00 Mechanical Ventilation 06/03/23 00:00 87 06/03/23 00:00 Mechanical Ventilation 06/03/23 00:00 99.3 F 86 18 134/78 95 Mechanical Ventilation 06/02/23 23:00 99.3 F 85 18 113/71 95 Mechanical Ventilation 06/02/23 23:00 Mechanical Ventilation 06/02/23 22:36 20 06/02/23 22:32 83 06/02/23 22:31 87 06/02/23 22:00 99.5 F 96 H 18 134/80 97 Mechanical Ventilation 06/02/23 21:00 99.5 F 94 H 18 123/52 L 95 Mechanical Ventilation 06/02/23 21:00 Mechanical Ventilation 06/02/23 20:00 99.5 F 94 H 18 145/69 H 92 L Mechanical Ventilation 06/02/23 20:00 96 H 06/02/23 19:21 20 06/02/23 19:20 88 06/02/23 19:19 82 06/02/23 19:00 99.5 F 86 18 105/59 L 90 L Mechanical Ventilation 06/02/23 19:00 Mechanical Ventilation O2 Flow Rate FiO2 06/03/23 18:40 4 06/03/23 16:44 4 06/03/23 16:00 06/03/23 15:39 4 06/03/23 15:37 06/03/23 14:40 4 06/03/23 12:54 4 06/03/23 12:00 06/03/23 12:00 06/03/23 11:00 5 06/03/23 11:00 6 06/03/23 10:00 06/03/23 09:06 45 06/03/23 09:05 06/03/23 09:05 06/03/23 09:00 06/03/23 09:00 06/03/23 08:00 06/03/23 08:00 06/03/23 07:33 06/03/23 07:00 06/03/23 06:28 06/03/23 06:28 06/03/23 06:28 45 06/03/23 06:00 45 06/03/23 05:00 45 06/03/23 05:00 06/03/23 04:00 06/03/23 04:00 45 06/03/23 03:00 45 06/03/23 03:00 06/03/23 02:21 45 06/03/23 02:20 06/03/23 02:20 06/03/23 02:00 45 06/03/23 01:00 06/03/23 00:00 06/03/23 00:00 45 06/03/23 00:00 06/02/23 23:00 45 06/02/23 23:00 06/02/23 22:36 45 06/02/23 22:32 06/02/23 22:31 06/02/23 22:00 45 06/02/23 21:00 45 06/02/23 21:00 06/02/23 20:00 45 06/02/23 20:00 06/02/23 19:21 45 06/02/23 19:20 06/02/23 19:19 06/02/23 19:00 45 06/02/23 19:00 Intake and Output 06/03/23 06/03/23 06/03/23 07:59 15:59 23:59 Intake Total 48.379 / 48.379 Output Total 1075 / 2865 1790 / 2865 Balance -1026.621 / -2816.621 -1790 / -2816.621 Intake: Intake, Oral Amount 0 / 0 Intake, Total IV Amount 48.379 / 48.379 Output: Output, Urine Amount 0 / 1150 1150 / 1150 Output, Urine Amount (Catheter) 1075 / 1715 640 / 1715 Weiss 1075 / 1715 640 / 1715 Other: Number of Unmeasured Voids 0 0 0 Number of Bowel Movements 1 Weight 71.849 kg Patient Weight 06/03/23 23:59 Weight 71.849 kg Laboratory Results - last 24 hr 06/02/23 23:44: POC Glucose 78 06/03/23 05:14: WBC 8.2, RBC 4.95, Hgb 14.6, Hct 48.3 H, MCV 97.5, MCH 29.4, MCHC 30.2 L, RDW 19.0 H, Plt Count 71 L, MPV 10.5 H, Neut % (Auto) 76.0, Lymph % (Auto) 13.2, [place] % (Auto) 9.8 H, Eos % (Auto) 0.8, Baso % (Auto) 0.2, Neut # (Auto) 6.2, Lymph # (Auto) 1.1, [place] # (Auto) 0.8, Eos # (Auto) 0.1, Baso # (Auto) 0.0, Total Counted 100, Neutrophils % (Manual) 83 H, Lymphocytes % (Manual) 14, Monocytes % (Manual) 3, Platelet Estimate Moderate decrease, RBC Morphology Normal, Sodium 135 L, Potassium 3.3 L, Chloride 100, Carbon Dioxide 35 H, Anion Gap 3.3 L, BUN 18 H D, Creatinine 0.70, Estimated Creat Clear 99, Estimated GFR 86, Est GFR ( Amer) 104, Glucose 74, Calcium 8.9, Phosphorus 2.1 L, Magnesium 1.8 D, Total Bilirubin 2.8 H, AST 55 H D, ALT 22 D , Alkaline Phosphatase 158 H, NT-Pro-B Natriuret Pep 49280 H, Total Protein 5.3 L, Albumin 2.6 L D, Globulin 2.7, Albumin/Globulin Ratio 1.0 L 06/03/23 05:53: POC Glucose 89 06/03/23 11:17: POC Glucose 86 06/03/23 16:29: POC Glucose 84 I & O for Labs for Last 24 Hours: Intake & Output 05/31/23 06/01/23 06/02/23 06/03/23 23:59 23:59 23:59 23:59 Intake Total 1607.825 / 0928.968 4768.127 / 2226.127 2239.689 / 2239.689 48.379 / 48.379 Output Total 5255 / 5255 5430 / 5430 5600 / 5750 2865 / 2865 Balance -3647.175 / -3647.175 -3203.873 / -3203.873 -3360.311 / -3510.311 - 2816.621 / -2816.621 Weight 82.5 kg 79.197 kg 77.02 kg 71.849 kg Microbiology Reports for the Last 24 Hours: Microbiology 05/29/23 18:20 Sputum - Endotracheal Tube Aspirate Gram Stain - Final 05/29/23 18:20 Sputum - Endotracheal Tube Aspirate Sputum Culture - Final 05/29/23 19:52 Blood Blood Culture - Preliminary 05/29/23 18:11 Blood Blood Culture - Preliminary Constitutional: Present no acute distress, average body habitus, chronically ill appearing and cooperative Head: Present atraumatic and normocephalic ENT: Present normal exam Neck: Present normal inspection Respiratory: Present prolonged expiratory phase, wheezes, crackles and normal respiratory effort; Absent rhonchi Cardiac: Present Reg Rate and Rhythm GI: Present soft and normal bowel sounds; Absent distention or tenderness Extremities: Present normal inspection and full ROM; Absent edema Skin: Present intact; Absent erythema Neuro: Present Grossly Intact, alert, awake, oriented x 3 and moves all extremities Assessment and Plan *Assessment and plan (1) Hypoxic respiratory failure: Status: Acute Qualifiers: Chronicity: acute on chronic Qualified Code(s): J96.21 - Acute and chronic respiratory failure with hypoxia Category: Medical Code(s): J96.91 - Respiratory failure, unspecified with hypoxia (2) Acute exacerbation of CHF (congestive heart failure): Status: Acute Qualifiers: Heart failure type: combined systolic and diastolic Qualified Code(s): I50.43 - Acute on chronic combined systolic (congestive) and diastolic (congestive) heart failure Category: Medical Code(s): I50.9 - Heart failure, unspecified (3) Cardiogenic shock: Status: Acute Category: Medical Code(s): R57.0 - Cardiogenic shock (4) On mechanically assisted ventilation: Status: Acute Category: Medical Code(s): Z99.11 - Dependence on respirator [ventilator] status (5) HFrEF (heart failure with reduced ejection fraction): Status: Acute Category: Medical Code(s): I50.20 - Unspecified systolic (congestive) heart failure (6) Ischemic cardiomyopathy with implantable cardioverter-defibrillator (ICD): Status: Acute Category: Medical Code(s): I25.5 - Ischemic cardiomyopathy; Z95.810 - Presence of automatic (implantable) cardiac defibrillator Plan 57-year-old female history of reported hypertension, hyperlipidemia, CHF with AICD in place currently on Eliquis, diabetes presenting with altered mental status. Patient seen status post intubation, therefore data is limited. Per Ed documentation, patient was reportedly found down, minimally responsive. EMS was called. Patient hypoxemic in the 70s when EMS arrived. Placed on BiPAP, saturations improved to the 90s. On arrival, patient pale, mottled, cyanotic, saturating about [address], GCS 3 and unresponsive, completely obtunded. Bedside ultrasound with plethoric IVC, hyperdynamic heart, free fluid in the abdomen. Patient has responded well to treatment. Able to extubate this morning. Off of pressors. Pulmonology and cardiology consulting. Continues to require inpatient management. De-escalate from ICU. Problems addressed as follows: Acute on chronic hypoxic respiratory failure: Acute decompensation of CHF. Suspected cardiogenic shock: on mechanical ventilation - Discussed case with pulmonology, Able to extubate today. Continue nasal cannula oxygen for goal sats greater than 90%. Extubated to 6 L. - Continue Trelegy 100 inhaler and DuoNebs every 6 hours as needed. Continue Levaquin to complete 7-day course of antibiotics. - Sputum culture positive for H. influenzae - Continue diuresis, responding well with over 14 L of negative fluid status so far. - Continue famotidine 20 mg IV twice daily - White cell count 8.2. Hemoglobin 14.6. Remains thrombocytopenic at 71. - CXR reviewed, continues to show effusions. Potassium 3.3, magnesium 1.8. Phosphorus 2.1, will replace orally. Repeat phosphorus level in the morning. Repeat CBC, CMP, magnesium morning. Acute HFrEF: - continue aggressive diuresis, negative >14 L since admission, -Cardiology consulted, discussed case, continue diuresis. Formal echo pending. - AICD in place Thrombocytopenia: Holding Lovenox anticoagulation due to platelets of 71. SCD for DVT ppx famotidine for GI bleed protection Full code Therapy, OT, PT, speech evaluating. Would benefit from SNF. Case management assisting with placement.
[2023-06-03] MEDS: PANTOPRAZOLE 40MG VIAL 40 MG IV (21:24)
[2023-06-03] MEDS: MUPIROCIN 2% OINTMENT 22GM TUBE TP (22:56)
[2023-06-03] MEDS: METOPROLOL SUCCINATE XL 25MG TABLET 25 MG PO (22:57)
[2023-06-03] MEDS: METOPROLOL TARTRATE 5MG/5ML VIAL 5 MG IV (23:10)
[2023-06-04] VITALS (26 sets, daily range): BP systolic 108–169; BP diastolic 51–107; PULSE 91–128; RESP 16–24; TEMP 36.1–36.8; O2SAT 90–96; BMI 23.6
[2023-06-04 05:43] LABS: MANUAL DIFFERENTIAL MANUAL DIFFERENTIAL (MANUAL DIFF)
[2023-06-04 05:45] LABS: Basophils # 0.2 K/mm3 (0-0.2); Basophils % 2.3 % (0.1-2.0); Eosinophils # 0.1 K/mm3 (0.0-0.4); Hemoglobin 15.9 g/dL (12.2-16.2); Lymphocytes # 0.9 K/mm3 (0.7-4.5); Lymphocytes % 11.1 % (10-50); Mean Corpuscular HGB Conc 29.4 g/dL (31.8-35.4); Mean Corpuscular Hemoglobin 29.6 pg (27.0-31.2); Mean Corpuscular Volume 100.8 fl (81-99); Mean Platelet Volume 11.1 fl (7.4-10.4); Monocytes # 1.4 K/mm3 (0.1-1.0); Monocytes % 17.5 % (1.7-9.3); Neutrophils # 5.5 K/mm3 (1.8-7.8); Neutrophils % 68.1 % (37.0-80.0); Platelet Count 73 K/mm3 (142-424); Red Blood Count 5.36 M/mm3 (4.20-5.40); Red Cell Distribution Width 18.8 % (11.5-17.5); White Blood Count 8.1 K/mm3 (4.8-10.8)
[2023-06-04 05:52] LABS: Chloride 100 mmol/L (98-107); Sodium 136 mmol/L (136-145)
[2023-06-04 05:53] LABS: Potassium 4.2 mmoL/L (3.5-5.1)
[2023-06-04 05:55] LABS: Alanine Aminotransferase 27 U/L (12-78); Alkaline Phosphatase 164 U/L (38-126); Aspartate Amino Transferase 57 U/L (14-36); Bilirubin,Total 2.7 mg/dl (0.2-1.3); Blood Urea Nitrogen 15 mg/dl (7-17); Creatinine Clearance Estimated 116 mL/min (50-200); Estimated Glomerular Filt Rate 103 ml/min (>60); GFR (African American) 124 ML/MIN (>60)
[2023-06-04 05:56] LABS: Albumin Level 2.9 g/dl (3.5-5.0); Anion Gap 4.2 mEq/L (5-15); Calcium 9.6 mg/dl (8.4-10.2); Carbon Dioxide 36 mmol/L (22.0-30.0); Globulin 2.9 g/dL (1.3-3.2); Glucose 95 mg/dl (74-100); Phosphorous 2.8 mg/dl (2.5-4.5); Total Protein,Serum 5.8 g/dl (6.3-8.2)
[2023-06-04 05:57] LABS: Magnesium 1.5 mg/dl (1.6-2.3)
[2023-06-04 06:14] LABS: POC Glucose,Bedside 68 (70-110)
[2023-06-04 06:14] LABS: POC Glucose,Bedside 81 (70-110)
[2023-06-04] MEDS: FLUTICASONE/UMECLIDIN/VILANTER 100/62.5/25MCG INHALER 1 PUFF IH (06:16)
--- NOTE | 2023-06-04 07:58 | EXP.CARD.PN ---
Subjective Subjective Date: 06/04/23 Time: 07:58 Principal diagnosis: Resp Failure with hypoxia, cardiogenic shock, HFrEF Interval history: 57-year-old white female sitting up in bed eating breakfast in no acute distress. Telemetry shows rate in the 120 bpm. Will check EKG. Total of 16 L net output this hospitalization with normal renal functions Again discussed recommendation for cardiac catheterization which patient is agreeable to. Her AICD device is a [employer] model CD VRA 5000 which we will interrogate today Exam Data for Last 24 hours Vital signs and Labs for Last 24 Hours: Temp Pulse Resp BP Pulse Ox O2 Del Method O2 Flow Rate 97.6 F 109 H 17 122/79 93 L Nasal Cannula 4 06/04/23 06:08 06/04/23 04:00 06/04/23 04:00 06/04/23 04:00 06/04/23 04:00 06/04/23 04:00 06/04/23 04:00 FiO2 45 06/03/23 09:06 Laboratory Results - last 24 hr 06/03/23 05:14: Total Counted 100, Neutrophils % (Manual) 83 H, Lymphocytes % (Manual) 14, Monocytes % (Manual) 3, Platelet Estimate Moderate decrease, RBC Morphology Normal, Phosphorus 2.1 L, NT-Pro-B Natriuret Pep 14931 H 06/03/23 11:17: POC Glucose 86 06/03/23 16:29: POC Glucose 84 06/03/23 21:33: POC Glucose 68 L 06/03/23 22:43: POC Glucose 81 06/04/23 05:30: WBC 8.1, RBC 5.36, Hgb 15.9, Hct 54.0 H, MCV 100.8 H, MCH 29.6, MCHC 29.4 L, RDW 18.8 H, Plt Count 73 L, MPV 11.1 H, Neut % (Auto) 68.1, Lymph % (Auto) 11.1, [place] % (Auto) 17.5 H, Eos % (Auto) 1.0, Baso % (Auto) 2.3 H, Neut # (Auto) 5.5, Lymph # (Auto) 0.9, [place] # (Auto) 1.4 H, Eos # (Auto) 0.1, Baso # (Auto) 0.2, Sodium 136, Potassium 4.2 D, Chloride 100, Carbon Dioxide 36 H, Anion Gap 4.2 L, BUN 15, Creatinine 0.60, Estimated Creat Clear 116, Estimated GFR 103, Est GFR ( Amer) 124, Glucose 95, Calcium 9.6, Phosphorus 2.8 D, Magnesium 1.5 L D, Total Bilirubin 2.7 H, AST 57 H, ALT 27, Alkaline Phosphatase 164 H, Total Protein 5.8 L, Albumin 2.9 L D, Globulin 2.9, Albumin/Globulin Ratio 1.0 L I & O for Last 24 hours: Intake & Output 06/01/23 06/02/23 06/03/23 06/04/23 11:59 11:59 11:59 11:59 Intake Total 2038.14 / 2093.14 2115.517 / 2265.517 990.678 / 990.678 Output Total 5380 / 6080 3880 / 4305 5690 / 5690 600 / 600 Balance -3341.86 / -3986.86 -1764.483 / -2039.483 -4699.322 / -4699.322 -600 / -600 Weight 174 lb 9.6 oz 169 lb 12.8 oz 158 lb 6.4 oz 147 lb Microbiology Reports for the Last 24 Hours: Microbiology 05/29/23 18:20 Sputum - Endotracheal Tube Aspirate Gram Stain - Final 05/29/23 18:20 Sputum - Endotracheal Tube Aspirate Sputum Culture - Final 05/29/23 19:52 Blood Blood Culture - Preliminary 05/29/23 18:11 Blood Blood Culture - Preliminary Constitutional Constitutional: no acute distress *Routine Respiratory Exam Respiratory: Present rhonchi *Routine Cardiovascular Exam Cardiovascular: Present tachycardia *Routine Extremities Exam Extremities: Absent edema Progress Note: A&P Assessment and plan (1) Hypoxic respiratory failure: Status: Acute (2) Acute exacerbation of CHF (congestive heart failure): Status: Acute (3) Cardiogenic shock: Status: Acute (4) On mechanically assisted ventilation: Status: Acute (5) HFrEF (heart failure with reduced ejection fraction): Status: Acute (6) Ischemic cardiomyopathy with implantable cardioverter-defibrillator (ICD): Status: Acute Assessment and Plan Assessment and Plan for All Diagnoses:: 1. Acute respiratory failure with hypoxia -Now extubated -on levofloxacin 2. Cardiogenic shock -Resolved -off pressors -Echo EF 55%, severely dilated RV with moderate reduction in RV function with septal flattening consistent with RV pressure/volume overload. RA dilatation. Moderate TR. 3. HFrEF with small bilateral pleural effusions on chest x-ray (improved) -Continue diuretics as blood pressure allows -BNP 22,900 down to 5720, recheck yesterday at 13,400 4. Known coronary artery disease with prior coronary stenting per patient's significant other -Elevated troponin this admission trending down, will proceed with cardiac catheterization 5. single lead AICD in situ, Bonnie Celeste DR -Reportedly interrogated last week at her physician's office (Dr. Alves) in [place], [place] 6. Chronic anticoagulation -Eliquis on hold 7. Hypokalemia -Resolved Start GDMT with oral Lasix, spironolactone, Farxiga, lisinopril and metoprolol Hold on restarting Eliquis in preparation for cardiac cath Proceed with cardiac catheterization Interrogated AICD today-battery 8 yrs, one non-sustained SVT at 187 bpm for 14 beats on 05/28/2023. EKG today shows sinus tachycardia LHC performed today Occluded RCA with large collateral from LAD LAD with mild CAD and widely patent stent Circ with mild CAD EF severely reduced at 20% with apical hypokinesis and chronic apical thrombus. Right iliac stented right brachial occluded with collateral flow from axillary vessel. Will adjust meds to include ASA and plavix for 30 days then just plavix. Restart eliquis 5 mg BID for HFrEF and PAD along with apical hypokinesis.
--- NOTE | 2023-06-04 08:02 | ECG_ITS ---
APPROVED REPORT Exam: Resting ECG HR:127 bpm ECG Measurements Heart Rate 127 AXES RI 162 P 90 QRSd 98 QRS 98 QT 392 T 82 QTc 467 Conclusion SINUS TACHYCARDIA BORDERLINE RIGHT AXIS DEVIATION [QRS AXIS > 90] LOW QRS VOLTAGE IN PRECORDIAL LEADS [QRS DEFLECTION < 1.0 mV IN CHEST LEADS] INCOMPLETE RIGHT BUNDLE BRANCH BLOCK [90+ ms QRS DURATION, TERMINAL R IN V1/V2, 40+ ms S IN I/aVL/V4/V5/V6] ABNORMAL ECG UNCONFIRMED REPORT Electronically signed by : Dakota Alvarado MD 06/04/2023 15:55:08
[2023-06-04 09:17] LABS: Lymphocytes % 7 % (10-50); Macrocytosis 1+; Monocytes % 2 % (2-9); Neutrophils % 91 % (42-76); Platelet Estimate Moderate Decrease; Total Cells Counted 100
[2023-06-04] MEDS: LEVOFLOXACIN/D5W 750 MG/150 ML 750 MG/150 ML PIGGYBACK 100 MG IV (09:25)
[2023-06-04] MEDS: DAPAGLIFLOZIN PROPANEDIOL 10 MG TABLET PO (09:26)
[2023-06-04] MEDS: FUROSEMIDE 40 MG TABLET PO ×2 (09:26→16:12)
[2023-06-04] MEDS: METOPROLOL SUCCINATE XL 50MG TABLET 50 MG PO (09:26)
[2023-06-04] MEDS: MAGNESIUM OXIDE 400MG TABLET 400 MG PO ×2 (09:26→20:34)
[2023-06-04] MEDS: SPIRONOLACTONE 25MG TABLET 25 MG PO ×2 (09:27→20:34)
[2023-06-04] MEDS: MUPIROCIN 2% OINTMENT 22GM TUBE TP ×3 (09:27→20:33)
[2023-06-04] MEDS: LISINOPRIL 2.5MG TABLET 2.5 MG PO ×2 (09:27→20:34)
--- NOTE | 2023-06-04 09:53 | P.PN_ITS ---
Subjective *Date: 06/04/23 *Time: 11:28 Interval history: No acute respiratory events overnight. Patient denies any new respiratory complaints. Tolerating nasal cannula well postextubation. Pulmonology Exam Inpatient Vital signs and Labs for Last 24 Hours: Temp Pulse Resp BP Pulse Ox O2 Del Method O2 Flow Rate 98.0 F 118 H 19 124/85 91 L Nasal Cannula 5 06/04/23 08:00 06/04/23 08:00 06/04/23 08:00 06/04/23 08:00 06/04/23 08:00 06/04/23 08:00 06/04/23 08:00 FiO2 45 06/03/23 09:06 Laboratory Results - last 24 hr 06/03/23 11:17: POC Glucose 86 06/03/23 16:29: POC Glucose 84 06/03/23 21:33: POC Glucose 68 L 06/03/23 22:43: POC Glucose 81 06/04/23 05:30: WBC 8.1, RBC 5.36, Hgb 15.9, Hct 54.0 H, MCV 100.8 H, MCH 29.6, MCHC 29.4 L, RDW 18.8 H, Plt Count 73 L, MPV 11.1 H, Neut % (Auto) 68.1, Lymph % (Auto) 11.1, [place] % (Auto) 17.5 H, Eos % (Auto) 1.0, Baso % (Auto) 2.3 H, Neut # (Auto) 5.5, Lymph # (Auto) 0.9, [place] # (Auto) 1.4 H, Eos # (Auto) 0.1, Baso # (Auto) 0.2, Total Counted 100, Neutrophils % (Manual) 91 H, Lymphocytes % (Manual) 7 L, Monocytes % (Manual) 2, Platelet Estimate Moderate decrease, Macrocytosis 1+, Sodium 136, Potassium 4.2 D, Chloride 100, Carbon Dioxide 36 H , Anion Gap 4.2 L, BUN 15, Creatinine 0.60, Estimated Creat Clear 116, Estimated GFR 103, Est GFR ( Amer) 124, Glucose 95, Calcium 9.6, Phosphorus 2.8 D, Magnesium 1.5 L D, Total Bilirubin 2.7 H, AST 57 H, ALT 27, Alkaline Phosphatase 164 H, Total Protein 5.8 L, Albumin 2.9 L D, Globulin 2.9, Albumin/Globulin Ratio 1.0 L Temp Pulse Resp BP Pulse Ox O2 Del Method O2 Flow Rate 99.3 F 77 18 101/52 L 95 Mechanical Ventilation 45 06/01/23 04:00 06/01/23 09:37 06/01/23 06:00 06/01/23 06:00 06/01/23 06:00 06/01/23 06:00 05/30/23 01:00 FiO2 60 05/31/23 19:17 Laboratory Results - last 24 hr 05/31/23 11:28: POC Glucose 140 H 05/31/23 16:37: POC Glucose 112 H 06/01/23 05:40: WBC 9.3, RBC 5.02, Hgb 14.8, Hct 49.3 H, MCV 98.2, MCH 29.5, MCHC 30.0 L, RDW 19.1 H, Plt Count 74 L, MPV 10.9 H, Neut % (Auto) 74.0, Lymph % (Auto) 9.4 L, [place] % (Auto) 15.7 H, Eos % (Auto) 0.3, Baso % (Auto) 0.6, Neut # (Auto) 6.8, Lymph # (Auto) 0.9, [place] # (Auto) 1.5 H, Eos # (Auto) 0.0, Baso # (Auto) 0.1, Total Counted 100, Neutrophils % (Manual) 71, Band Neutrophils % 1.0, Lymphocytes % (Manual) 11, Monocytes % (Manual) 17 H, Nucleated RBCs 3, Differential Comment , Platelet Estimate Moderate decrease, RBC Morphology Normal, Sodium 138, Potassium 3.4 L, Chloride 97 L, Carbon Dioxide 39 H, Anion Gap 5.4, BUN 36 H, Creatinine 1.00 D, Estimated Creat Clear 77, Estimated GFR 57 L, Est GFR ( Amer) 69 D, Glucose 110 H, Calcium 8.2 L 06/01/23 08:01: Specimen Source Right radial, O2 % 60, ABG pH 7.49 H, ABG pCO2 47.1 H, ABG pO2 88.8, ABG HCO3 35.2 H, ABG Total CO2 36.6 H, ABG O2 Saturation 97, ABG Base Excess 11.8 H, Ever Test Acceptable, ABG Lactate 1.3, Vent Rate 18, Tidal Volume 420, PEEP 8 I & O for Labs for Last 24 Hours: Intake & Output 06/01/23 06/02/23 06/03/23 06/04/23 23:59 23:59 23:59 23:59 Intake Total 2226.127 / 2226.127 2239.689 / 2239.689 48.379 / 48.379 260 / 260 Output Total 5430 / 5430 5600 / 5750 2865 / 2865 300 / 300 Balance -3203.873 / -3203.873 -3360.311 / -3510.311 -2816.621 / -2816.621 -40 / -40 Weight 174 lb 9.6 oz 169 lb 12.8 oz 158 lb 6.4 oz 147 lb Intake & Output 05/29/23 05/30/23 05/31/23 06/01/23 23:59 23:59 23:59 23:59 Intake Total 6.66 / 356.66 547.968 / 891.332 3928.825 / 2472.280 3562 / 1008 Output Total 3580 / 3580 5255 / 5255 2250 / 2250 Balance 6.66 / 356.66 -3032.032 / -3032.032 -3647.175 / -3647.175 -1242 / -1242 Weight 198 lb 6.656 oz 175 lb 4.985 oz 181 lb 14.102 oz 174 lb 9.6 oz Microbiology Reports for the Last 24 Hours: Microbiology 05/29/23 18:20 Sputum - Endotracheal Tube Aspirate Gram Stain - Final 05/29/23 18:20 Sputum - Endotracheal Tube Aspirate Sputum Culture - Final 05/29/23 19:52 Blood Blood Culture - Preliminary 05/29/23 18:11 Blood Blood Culture - Preliminary Microbiology 05/29/23 18:20 Sputum - Endotracheal Tube Aspirate Gram Stain - Final 05/29/23 18:20 Urine,Clean Catch Urine Culture - Final Constitutional: Present moderate distress Head: Present normocephalic and atraumatic Neck: Present normal inspection and trachea midline Respiratory: Present patient mechanically ventilated, respiratory distress, rhonchi and crackles; Absent wheezes Cardiac: Present Irregularly Regular and S1/S2 GI: Present soft; Absent distention or tenderness Skin: Present intact; Absent cyanosis Neuro: Present alert, awake and oriented x 3 Extremities: Present normal inspection; Absent clubbing or cyanosis Psychiatric: Present normal affect and cooperative Assessment and Plan *Assessment and plan (1) Acute respiratory failure with hypoxia: Status: Acute Category: Medical Code(s): J96.01 - Acute respiratory failure with hypoxia (2) Pleural effusion, bilateral: Status: Acute Category: Medical Code(s): J90 - Pleural effusion, not elsewhere classified (3) Pneumonia: Status: Acute Category: Medical Code(s): J18.9 - Pneumonia, unspecified organism Plan Ms. Chandler is a 57-year-old female with reported history of hypertension hyperlipidemia CHF AICD in place on Eliquis diabetes presented to the ER with worsening mentation needing intubation mechanical ventilatory support and pulmonary was consulted over the weekend for further evaluation and management. CTA upon admission no dense consolidation or airspace disease noted. Large right pleural effusion along with adjacent atelectasis noted. Hyperinflated lungs on chest x-ray. Mild neutrophilic predominant leukocytosis upon admission, improving. MARIA upon admission, improving BUN/creatinine with diuretics. Patient on admission was initiated on broad-spectrum antibiotics including vancomycin and cefepime along with DuoNebs every 6 hours on as-needed basis but she continued to receive diuretics on a daily basis is concerning for volume overload and heart failure exacerbation. Interval update: No acute respiratory events overnight. Extubated 06/03/2023. Tolerating nasal cannula well. Weaned to 2 L this morning. Copious amounts of cough and productive phlegm. Will closely monitor. Hemodynamically stable. Afebrile. Continue to receive levofloxacin. Current smoker, admits greater than 43-[id number] smoking history. Plan: Continue oxygen supplementation to maintain O2 saturation goal of 90 to 95%. Patient pending to be discharged to rehab. Trelegy 100 inhaler along with DuoNebs every 6 hours and as needed basis Continue levofloxacin to complete total of 7-day course # Thank you for involving pulmonary in this patient care. Will follow the patient in pulmonary clinic 2 to 3 weeks post discharge.
[2023-06-04 10:05] LABS: Erythrocyte Sedimentation Rate 14 mm/hr (0-30)
--- NOTE | 2023-06-04 10:24 | IR_ITS ---
APPROVED REPORT Patient Location: Inpatient Manager Of Planning: WILDER Gann RT (R) PROCEDURES Right radial arterial access Catheter placement in the distal right brachial artery Right brachial artery retrograde angiogram Right femoral arterial access Right retrograde femoral angiogram Left femoral arterial access Left heart catheterization Left ventriculogram Selective coronary angiogram Catheter placement in the right axillary artery Right axillary artery antegrade angiogram Catheter placed in the left subclavian artery Left subclavian artery antegrade angiogram Catheter placement in the right common iliac artery Right common iliac artery antegrade angiogram Balloon mounted bare-metal stent deployment to the chronically occluded right common iliac artery INDICATION Acute non-ST elevation myocardial infarction, Coronary artery disease, Occluded right brachial artery, Occluded right common iliac artery, Suspected left subclavian artery stenosis, Informed consent was obtained prior to the procedure. COMPLICATIONS None Estimated Blood Loss: Less than 10 mls TECHNIQUE 1% lidocaine used anesthetize the right anterior aspect of the right wrist and right radial artery was accessed via the center technique. A 6 Mozambican hydrophilic sheath was placed in the right radial artery. A Glidewire would not traverse the right brachial artery therefore a Poppa catheter was advanced to the distal portion of the right brachial artery and retrograde angiography was performed which demonstrated an occluded right brachial artery. At this point 1% lidocaine was used anesthetize right groin and right femoral artery was accessed via the Salinger technique. A 4 Mozambican sheath is placed in the right femoral artery. The wire would not traverse the common iliac artery therefore retrograde angiography was performed which demonstrated the right common iliac artery was occluded. At this point 1% lidocaine was used anesthetize the left groin and the left femoral artery was accessed via the Salinger technique with a 4 Mozambican femoral sheath. A JR4 JL L4 catheter used to perform left heart catheterization left ventriculogram and selective coronary angiography. The JR4 catheter was placed into the right axillary artery and antegrade angiography was performed to determine the level of occlusion of the brachial artery. Because of the multivessel and probably vascular disease the JR4 catheter was placed in the left subclavian artery where left subclavian artery antegrade angiography was performed. At the end of the procedure the JR4 catheter was placed in the right common artery where right common artery antegrade angiography was performed. Following this therapeutic heparin was administered giving a therapeutic ACT and the 4 Mozambican sheath was exchanged for a 6 Mozambican sheath. An advantage wire was used to push through the right common iliac artery and a 7 mm x 40 mm balloon was deployed at 10 osmar to predilate the stenosis. Following this an 8 mm x 57 mm balloon mounted bare-metal stent was deployed at 10 osmar reducing the 100% occlusion to 0%. An 8 mm x 20 mm balloon was deployed at 14 osmar in the proximal and midportion of further post dilate. Following this after achieving excellent angiograph results the apparatus was removed the groin was reprepped closure change sheath was removed and hemostasis was achieved using Perclose device from the right femoral artery. Following this the left groin was reprepped closure change sheath was removed and hemostasis was achieved using Perclose device in the left groin and patient was transferred to postop holding in stable condition for removal of the right radial artery sheath. ANGIOGRAPHIC RESULTS The left main artery Short and normal The left anterior descending artery Is proximally normal and has mid vessel stents which are widely patent with minimal in-stent restenosis with excellent proximal distal transitioning. A large apical collateral fills the distal right coronary artery and the left right distribution The circumflex artery Is nondominant yet still large with proximal and mid vessel 20% stenoses The right coronary artery Dominant proximally occluded. A large collateral from the LAD collateralizes the distal right coronary artery The BELTRAN ventriculogram reveals Severely reduced ejection fraction with mid anterior apical and inferior apical akinesis with aneurysmal dilatation with estimated ejection fraction 20% The left ventricular end-diastolic pressure 10 mmHg Right axillary artery is patent Right brachial artery is occluded throughout with dense collaterals supplying the ulnar and radial artery Left subclavian and axillary arteries are widely patent Right common iliac artery ostially occluded Successful percutaneous revascularization of a chronically occluded right common iliac artery 100% occlusion reduced to 0% with 1 bare-metal balloon mounted stent IMPRESSION Chronically occluded ostial dominant right coronary artery which fills via left to right from a large LAD collateral Severely reduced ejection fraction with mid anterior apical and inferior apical akinesis with 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 Dual antiplatelet is not required for the iliac stent however I do recommend either aspirin or Plavix for 30 days if possible 2. Medical management for the coronary artery disease 3. Standard therapy for systolic heart failure 4. LDL less than 55 to be achieved with high intensity statin 5. Avoidance of tobacco products Electronically signed by : Phillip Vargas MD 06/04/2023 14:22:36
[2023-06-04 11:06] LABS: POC Glucose,Bedside 108 (70-110)
--- NOTE | 2023-06-04 11:41 | HMH.SLDYSPHA ---
Speech & Language Evaluation Speech/Language Dysphagia Evaluation Start: 06/04/23 11:22 Freq: ONCE Status: Active Protocol: Document 06/04/23 11:22 FELIPE (Rec: 06/04/23 11:41 [id number]) Dysphagia Assess/Goals/Plan Assessment Date of Evaluation: 06/04/23 Evaluation Type Initial Certification Assessment/Problems post extubation protcol per MD order. Does Patient Qualify for Service Yes Qualify/Failure Comment Based on clinical observations made during CSE pt would benefit from f/u for diet tolerance from skilled speech therapy services. Recommendations PHYSICIAN CERTIFICATION: The specified therapy services are required, authorized, and reviewed every 30 days. Pt will be seen # times/week 1 for # weeks 4 Diet Recommendations Mechanical Soft Liquid Type Recommendations Normal/Thin SL Swallow Guidelines Standard Aspiration Prec.,Eat at slow rate Dysphagia Swallow Precautions/Strategies Sitting Upright (90 deg),Small Bites and Sips,Alternate Liquids/Solids Plan Pt/Guardian verbally ack understanding Yes of dx/prognosis/goals G -code Required No Education Instructions provided Discussed CSE results, diet recommendations, aspiration precautions/compensatory strategies with pt and family and care management who expressed understanding. Pt/Caregiver able to recall information Able to recall/restate Reinforcement needed No Speech & Language HPI History Present Illness Description of Patient Problem This is a 57-year-old female history of reported hypertension, hyperlipidemia, CHF with AICD in place currently on Eliquis, diabetes presenting with altered mental status. Intubation on . Extubated 06/03/23. presented to the ER with worsening mentation needing intubation mechanical ventilatory support and pulmonary was consulted over the weekend for further evaluation and management. CTA upon admission no dense consolidation or airspace disease noted. Large right pleural effusion along with adjacent atelectasis noted. Hyperinflated lungs on chest x -ray General Information General Current Food Consistancy Mechanical Soft,Chopped Meats, Thin Liquids Dentition Poor Dentition Oxygen Status Nasal Cannula Patient Orientation Person,Place,Time Ability to Follow Directions Good Communication Ability Mild Impairment Dysphagia:Food Presentation Evaluation Food Type Mechanical Soft,Liquid,Pudding Dysphagia Evaluation Summary Pt seen sitting upright drinking water from straw in chair upon [employer] entry in room. She was A&Ox3. She was presented thin liquids (ice chip, spoonful of water, open cup/straw sip, and two consecutive sips from open cup and straw), pudding, and mechanical soft. No overt s/ sxs of aspiration were observed across trials. However, a delayed, dry cough was observed as [employer] was exiting room. She would benefit from a follow up for diet tolerance to further assess delayed cough and diet texture analysis of mechanical soft and thin liquids. However, overall, mastication and manipulation of bolus appear to be WFL. Stroke Dysphagia Assessment PHYSICIAN CERTIFICATION: I certify the specified therapy services for Lena Chandler are required, authorized, and reviewed every 30 days.
[2023-06-04] MEDS: HEPARIN 1,000 UNITS/500ML NS (CATH LAB) 3000 UNIT IV (13:04)
[2023-06-04] MEDS: 0.9 % SODIUM CHLORIDE 500 ML 25 ML IV (13:04)
[2023-06-04] MEDS: LIDOCAINE 1% 10ML MDV 20 ML IJ (13:04)
[2023-06-04] MEDS: HEPARIN 1,000 UNITS/ML 10ML VIAL (CATH LAB) 10000 UNIT IV (13:05)
[2023-06-04] MEDS: NITROGLYCERIN 800MCG/8ML SYR (CATH LAB) 800 MCG IA (13:05)
[2023-06-04] MEDS: VERAPAMIL 2.5MG/ML 2ML VIAL 2.5 MG IV (13:05)
[2023-06-04] MEDS: MIDAZOLAM HCL 1MG/1ML 5ML VIAL 1 MG IV (13:38)
[2023-06-04] MEDS: FENTANYL 100MCG/2ML VIAL 25 MCG IV (13:38)
[2023-06-04] MEDS: CLOPIDOGREL 300MG TABLET 300 MG PO (14:03)
[2023-06-04] MEDS: ASPIRIN 325MG TABLET 325 MG PO (14:15)
[2023-06-04 14:52] LABS: CATHL Activated Clotting Time > 400 SEC (74-125)
[2023-06-04] MEDS: IOPAMIDOL-370 (76%);100ML BOTTLE 130 ML IV (15:01)
[2023-06-04 16:38] LABS: POC Glucose,Bedside 76 (70-110)
--- NOTE | 2023-06-04 17:45 | PC.NURSE ---
Pt resting bed. Post cath. (R) radial cath site with tracelet. (R) Femoral, (L) femoral. Bleeding was noted to (R) femoral site. Pressure was applied. New DSG placed. VS currently stable. Call light within reach. Family at bedside.
--- NOTE | 2023-06-04 17:49 | EXP.ACUTE.PN ---
Subjective *Date: 06/04/23 *Time: 23:13 Interval history: Patient showing gradual improvement. Weaned to 3 L today. No nausea or vomiting. Speech worked with patient/evaluated, will advance diet today. No nausea or vomiting. No chest pain. Continues to diurese well, -16 L since admission. Medical Exam Vital signs and Labs for Last 24 Hours: Vital Signs Temp Pulse Pulse Resp BP Pulse Ox O2 Del Method 06/04/23 17:00 Nasal Cannula 06/04/23 16:00 100 H 06/04/23 15:55 104 H 17 137/92 H 93 L Nasal Cannula 06/04/23 15:46 94 L Nasal Cannula 06/04/23 15:25 102 H 16 131/91 H 91 L Nasal Cannula 06/04/23 15:10 102 H 21 137/94 H 93 L Nasal Cannula 06/04/23 15:00 Nasal Cannula 06/04/23 14:55 102 H 22 130/90 90 L Nasal Cannula 06/04/23 14:40 97.8 F 110 H 20 133/93 H 91 L Nasal Cannula 06/04/23 14:24 120 H 23 151/106 H 92 L Room Air 06/04/23 14:20 128 H 24 151/106 H 93 L 06/04/23 14:17 97 F L 120 H 120 H 20 147/107 H 91 L Nasal Cannula 06/04/23 14:15 124 H 147/107 H 92 L Nasal Cannula 06/04/23 12:04 98 H 19 127/87 96 Nasal Cannula 06/04/23 12:00 98.2 F 06/04/23 12:00 100 H 06/04/23 11:22 Nasal Cannula 06/04/23 11:00 Nasal Cannula 06/04/23 10:00 114 H 20 131/95 H 95 Nasal Cannula 06/04/23 09:00 Nasal Cannula 06/04/23 08:00 120 H 06/04/23 08:00 118 H 19 124/85 91 L Nasal Cannula 06/04/23 08:00 98.0 F 06/04/23 08:00 Nasal Cannula 06/04/23 06:08 97.6 F 06/04/23 04:00 109 H 93 L Nasal Cannula 06/04/23 04:00 110 H 06/04/23 04:00 112 H 17 122/79 94 L Nasal Cannula 06/04/23 00:00 108 H 06/04/23 00:00 107 H 16 155/85 H 96 Nasal Cannula 06/03/23 20:00 117 H 06/03/23 20:00 118 H 95 Nasal Cannula 06/03/23 20:00 118 H 16 125/90 95 Nasal Cannula 06/03/23 18:40 Nasal Cannula O2 Flow Rate 06/04/23 17:00 2 06/04/23 16:00 06/04/23 15:55 2 06/04/23 15:46 2 06/04/23 15:25 2 06/04/23 15:10 2 06/04/23 15:00 2 06/04/23 14:55 2 06/04/23 14:40 2 06/04/23 14:24 06/04/23 14:20 06/04/23 14:17 3 06/04/23 14:15 3 06/04/23 12:04 2 06/04/23 12:00 06/04/23 12:00 06/04/23 11:22 06/04/23 11:00 3 06/04/23 10:00 3 06/04/23 09:00 4 06/04/23 08:00 06/04/23 08:00 5 06/04/23 08:00 06/04/23 08:00 5 06/04/23 06:08 06/04/23 04:00 4 06/04/23 04:00 06/04/23 04:00 4 06/04/23 00:00 06/04/23 00:00 4 06/03/23 20:00 06/03/23 20:00 4 06/03/23 20:00 4 06/03/23 18:40 4 Intake and Output 06/04/23 06/04/23 06/04/23 07:59 15:59 23:59 Intake Total 410 / 410 Output Total 300 / 302 2 / 302 0 / 302 Balance -300 / 108 408 / 108 0 / 108 Intake: Intake, Oral Amount 260 / 260 Intake, Total IV Amount 150 / 150 Levofloxacin/D5w 750 mg/150 ml 150 / 150 750 mg In 150 ml @ 100 mls/hr IV Q24H [facility] Rx#:[id number] Output: Output, Urine Amount 300 / 302 2 / 302 0 / 302 Other: Number of Unmeasured Voids 1 1 2 Number of Bowel Movements 2 1 Weight 66.678 kg Patient Weight 06/04/23 23:59 Weight 66.678 kg Laboratory Results - last 24 hr 06/03/23 21:33: POC Glucose 68 L 06/03/23 22:43: POC Glucose 81 06/04/23 05:30: WBC 8.1, RBC 5.36, Hgb 15.9, Hct 54.0 H, MCV 100.8 H, MCH 29.6, MCHC 29.4 L, RDW 18.8 H, Plt Count 73 L, MPV 11.1 H, Neut % (Auto) 68.1, Lymph % (Auto) 11.1, [place] % (Auto) 17.5 H, Eos % (Auto) 1.0, Baso % (Auto) 2.3 H, Neut # (Auto) 5.5, Lymph # (Auto) 0.9, [place] # (Auto) 1.4 H, Eos # (Auto) 0.1, Baso # (Auto) 0.2, Total Counted 100, Neutrophils % (Manual) 91 H, Lymphocytes % (Manual) 7 L, Monocytes % (Manual) 2, Platelet Estimate Moderate decrease, Macrocytosis 1+, ESR 14, Sodium 136, Potassium 4.2 D, Chloride 100, Carbon Dioxide 36 H, Anion Gap 4.2 L, BUN 15, Creatinine 0.60, Estimated Creat Clear 116, Estimated GFR 103, Est GFR ( Amer) 124, Glucose 95, Calcium 9.6, Phosphorus 2.8 D, Magnesium 1.5 L D, Total Bilirubin 2.7 H, AST 57 H, ALT 27, Alkaline Phosphatase 164 H, Total Protein 5.8 L, Albumin 2.9 L D, Globulin 2.9, Albumin/Globulin Ratio 1.0 L 06/04/23 10:56: POC Glucose 108 06/04/23 13:42: Activated Clotting Time > 400 H* 06/04/23 16:14: POC Glucose 76 I & O for Labs for Last 24 Hours: Intake & Output 06/01/23 06/02/23 06/03/23 06/04/23 23:59 23:59 23:59 23:59 Intake Total 2226.127 / 2226.127 2239.689 / 2239.689 48.379 / 48.379 410 / 410 Output Total 5430 / 5430 5600 / 5750 2865 / 2865 302 / 302 Balance -3203.873 / -3203.873 -3360.311 / -3510.311 -2816.621 / -2816.621 108 / 108 Weight 79.197 kg 77.02 kg 71.849 kg 66.678 kg Microbiology Reports for the Last 24 Hours: Microbiology 05/29/23 18:20 Sputum - Endotracheal Tube Aspirate Gram Stain - Final 05/29/23 18:20 Sputum - Endotracheal Tube Aspirate Sputum Culture - Final 05/29/23 19:52 Blood Blood Culture - Preliminary 05/29/23 18:11 Blood Blood Culture - Preliminary Constitutional: Present no acute distress, average body habitus, chronically ill appearing and cooperative Head: Present atraumatic and normocephalic ENT: Present normal exam Neck: Present normal inspection Respiratory: Present prolonged expiratory phase, wheezes, crackles and normal respiratory effort; Absent rhonchi Cardiac: Present Reg Rate and Rhythm GI: Present soft and normal bowel sounds; Absent distention or tenderness Extremities: Present normal inspection and full ROM; Absent edema Skin: Present intact; Absent erythema Neuro: Present Grossly Intact, alert, awake, oriented x 3 and moves all extremities Assessment and Plan *Assessment and plan (1) Hypoxic respiratory failure: Status: Acute Qualifiers: Chronicity: acute on chronic Qualified Code(s): J96.21 - Acute and chronic respiratory failure with hypoxia Category: Medical Code(s): J96.91 - Respiratory failure, unspecified with hypoxia (2) Acute exacerbation of CHF (congestive heart failure): Status: Acute Qualifiers: Heart failure type: combined systolic and diastolic Qualified Code(s): I50.43 - Acute on chronic combined systolic (congestive) and diastolic (congestive) heart failure Category: Medical Code(s): I50.9 - Heart failure, unspecified (3) Cardiogenic shock: Status: Acute Category: Medical Code(s): R57.0 - Cardiogenic shock (4) On mechanically assisted ventilation: Status: Acute Category: Medical Code(s): Z99.11 - Dependence on respirator [ventilator] status (5) HFrEF (heart failure with reduced ejection fraction): Status: Acute Category: Medical Code(s): I50.20 - Unspecified systolic (congestive) heart failure (6) Ischemic cardiomyopathy with implantable cardioverter-defibrillator (ICD): Status: Acute Category: Medical Code(s): I25.5 - Ischemic cardiomyopathy; Z95.810 - Presence of automatic (implantable) cardiac defibrillator Plan 57-year-old female history of reported hypertension, hyperlipidemia, CHF with AICD in place currently on Eliquis, diabetes presenting with altered mental status. Patient seen status post intubation, therefore data is limited. Per Ed documentation, patient was reportedly found down, minimally responsive. EMS was called. Patient hypoxemic in the 70s when EMS arrived. Placed on BiPAP, saturations improved to the 90s. On arrival, patient pale, mottled, cyanotic, saturating about [address], GCS 3 and unresponsive, completely obtunded. Bedside ultrasound with plethoric IVC, hyperdynamic heart, free fluid in the abdomen. Patient has responded well to treatment. Weaning oxygen. On 3 L nasal cannula. Pulmonology and cardiology consulting. Continues to require inpatient management. De-escalate from ICU. Problems addressed as follows: Acute on chronic hypoxic respiratory failure: Acute decompensation of CHF. Suspected cardiogenic shock: on mechanical ventilation - Discussed case with pulmonology, Able to extubate 06/02, Continue nasal cannula oxygen for goal sats greater than 90%. 3 L L. - Continue Trelegy 100 inhaler and DuoNebs every 6 hours as needed. Continue Levaquin to complete 7-day course of antibiotics. - Sputum culture positive for H. influenzae - Continue diuresis, responding well with over 16 L of negative fluid status so far. - Continue famotidine 20 mg IV twice daily - White cell count 8.1. Hemoglobin 15.9. Remains thrombocytopenic at 73. Potassium 4.2, magnesium 1.5, will replace magnesium x 1 IV today. Repeat CBC, CMP, magnesium morning. Acute HFrEF: - continue aggressive diuresis, negative >16 L since admission, -Cardiology consulted, discussed case, continue diuresis. Formal echo pending. -Taken for left heart cath today. 1 peripheral stent placed, no stents in coronary arteries. Still appears volume overloaded. See report for full details. - AICD in place Thrombocytopenia: Holding Lovenox anticoagulation due to platelets of 71. SCD for DVT ppx famotidine for GI bleed protection Full code Therapy, OT, PT, speech evaluating. Would benefit from SNF. Case management assisting with placement.
[2023-06-04] MEDS: PANTOPRAZOLE 40MG VIAL 40 MG IV (20:33)
[2023-06-04] MEDS: SODIUM CHLORIDE 0.9% 10ML VIAL 10 ML IV (20:34)
[2023-06-04 21:06] LABS: POC Glucose,Bedside 97 (70-110)
[2023-06-05] VITALS: PULSE 110
[2023-06-05 00:46] VITALS: BP 118/76; PULSE 108; RESP 23; TEMP 36.5; O2SAT 95
[2023-06-05 04:00] VITALS: BP 131/90; PULSE 102; PULSE 90; RESP 16; TEMP 36.6; O2SAT 98; BMI 23.3
[2023-06-05 05:51] LABS: POC Glucose,Bedside 98 (70-110)
[2023-06-05] MEDS: FLUTICASONE/UMECLIDIN/VILANTER 100/62.5/25MCG INHALER 1 PUFF IH (05:53)
--- NOTE | 2023-06-05 06:05 | PC.NURSE ---
pt rested well. 02 requirements increased to 4L while sleeping. cath site to right radial, right femoral, and left femoral, dressings cdi. no c/o pain this shift. pt. up to bedside commode with assistance. family at bedside, call button is in reach.
[2023-06-05 06:37] LABS: Basophils % 0.5 % (0.1-2.0); Eosinophils # 0.1 K/mm3 (0.0-0.4); Eosinophils % 0.9 % (0.1-12.0); Hematocrit 52.6 % (37.0-47.0); Hemoglobin 15.4 g/dL (12.2-16.2); Lymphocytes # 1.6 K/mm3 (0.7-4.5); Lymphocytes % 18.9 % (10-50); Mean Corpuscular HGB Conc 29.4 g/dL (31.8-35.4); Mean Corpuscular Hemoglobin 29.6 pg (27.0-31.2); Mean Corpuscular Volume 100.9 fl (81-99); Mean Platelet Volume 10.2 fl (7.4-10.4); Monocytes % 12.1 % (1.7-9.3); Neutrophils # 5.7 K/mm3 (1.8-7.8); Neutrophils % 67.6 % (37.0-80.0); Platelet Count 84 K/mm3 (142-424); Red Blood Count 5.21 M/mm3 (4.20-5.40); Red Cell Distribution Width 18.7 % (11.5-17.5); White Blood Count 8.4 K/mm3 (4.8-10.8)
[2023-06-05 06:46] LABS: Chloride 100 mmol/L (98-107); Potassium 3.5 mmoL/L (3.5-5.1); Sodium 137 mmol/L (136-145)
[2023-06-05 06:49] LABS: Alanine Aminotransferase 35 U/L (12-78); Albumin Level 2.9 g/dl (3.5-5.0); Alkaline Phosphatase 159 U/L (38-126); Anion Gap 5.5 mEq/L (5-15); Aspartate Amino Transferase 56 U/L (14-36); Bilirubin,Total 1.8 mg/dl (0.2-1.3); Blood Urea Nitrogen 16 mg/dl (7-17); Calcium 9.7 mg/dl (8.4-10.2); Carbon Dioxide 35 mmol/L (22.0-30.0); Creatinine Clearance Estimated 80 mL/min (50-200); Estimated Glomerular Filt Rate 74 ml/min (>60); GFR (African American) 89 ML/MIN (>60); Globulin 2.8 g/dL (1.3-3.2); Glucose 87 mg/dl (74-100); Total Protein,Serum 5.7 g/dl (6.3-8.2)
[2023-06-05 06:50] LABS: Magnesium 1.6 mg/dl (1.6-2.3)
[2023-06-05 07:25] VITALS: BP 135/96; PULSE 104; RESP 25; TEMP 36.9; O2SAT 96
[2023-06-05 08:00] VITALS: PULSE 95
--- NOTE | 2023-06-05 08:52 | EXP.CARD.PN ---
Subjective Subjective Date: 06/05/23 Time: 08:52 Principal diagnosis: Resp Failure with hypoxia, cardiogenic shock, HFrEF Interval history: 57-year-old white female on bedside commode in no acute distress Telemetry shows heart rate In the 90s to 110 bpm range in sinus tachycardia Urine output documentation less accurate due to patient using bathroom now that her Weiss catheter is out Platelet count stable around 84,000 with normal hemoglobin Potassium 3.5 Renal functions normal with creatinine 0.8 and GFR of 89 Exam Data for Last 24 hours Vital signs and Labs for Last 24 Hours: Temp Pulse Resp BP Pulse Ox O2 Del Method O2 Flow Rate 98.5 F 104 H 25 H 135/96 H 96 Nasal Cannula 4 06/05/23 07:25 06/05/23 07:25 06/05/23 07:25 06/05/23 07:25 06/05/23 07:25 06/05/23 07:38 06/05/23 07:38 FiO2 45 06/03/23 09:06 Laboratory Results - last 24 hr 06/04/23 05:30: Total Counted 100, Neutrophils % (Manual) 91 H, Lymphocytes % (Manual) 7 L, Monocytes % (Manual) 2, Platelet Estimate Moderate decrease, Macrocytosis 1+, ESR 14 06/04/23 10:56: POC Glucose 108 06/04/23 13:42: Activated Clotting Time > 400 H* 06/04/23 16:14: POC Glucose 76 06/04/23 20:29: POC Glucose 97 06/05/23 05:43: POC Glucose 98 06/05/23 05:44: WBC 8.4, RBC 5.21, Hgb 15.4, Hct 52.6 H, MCV 100.9 H, MCH 29.6, MCHC 29.4 L, RDW 18.7 H, Plt Count 84 L, MPV 10.2, Neut % (Auto) 67.6, Lymph % (Auto) 18.9, [place] % (Auto) 12.1 H, Eos % (Auto) 0.9, Baso % (Auto) 0.5, Neut # (Auto) 5.7, Lymph # (Auto) 1.6, [place] # (Auto) 1.0, Eos # (Auto) 0.1, Baso # (Auto) 0.0, Sodium 137, Potassium 3.5, Chloride 100, Carbon Dioxide 35 H, Anion Gap 5.5, BUN 16, Creatinine 0.80 D, Estimated Creat Clear 80, Estimated GFR 74, Est GFR ( Amer) 89 D, Glucose 87, Calcium 9.7, Magnesium 1.6, Total Bilirubin 1.8 H, AST 56 H, ALT 35 D, Alkaline Phosphatase 159 H, Total Protein 5.7 L, Albumin 2.9 L, Globulin 2.8, Albumin/Globulin Ratio 1.0 L I & O for Last 24 hours: Intake & Output 06/02/23 06/03/23 06/04/23 06/05/23 11:59 11:59 11:59 11:59 Intake Total 2115.517 / 2265.517 990.678 / 990.678 410 / 410 600 / 600 Output Total 3880 / 4305 5690 / 5690 600 / 602 302 / 302 Balance -1764.483 / -2039.483 -4699.322 / -4699.322 -190 / -192 298 / 298 Weight 169 lb 12.8 oz 158 lb 6.4 oz 147 lb 145 lb 6.4 oz Microbiology Reports for the Last 24 Hours: Microbiology 05/29/23 19:52 Blood Blood Culture - Preliminary *Routine Respiratory Exam Respiratory: Present diminished air movement; Absent wheezes *Routine Cardiovascular Exam Cardiovascular: Present RRR and murmur; Absent gallop or rubs *Routine Neurological Exam Neurological: Present alert and oriented X3 Progress Note: A&P Assessment and plan (1) Hypoxic respiratory failure: Status: Acute (2) Acute exacerbation of CHF (congestive heart failure): Status: Acute (3) Cardiogenic shock: Status: Acute (4) On mechanically assisted ventilation: Status: Acute (5) HFrEF (heart failure with reduced ejection fraction): Status: Acute (6) Ischemic cardiomyopathy with implantable cardioverter-defibrillator (ICD): Status: Acute Assessment and Plan Assessment and Plan for All Diagnoses:: 1. Acute respiratory failure with hypoxia -Now extubated -on levofloxacin 2. Cardiogenic shock -Resolved -off pressors -Echo EF 55% but apex not visualized, severely dilated RV with moderate reduction in RV function with septal flattening consistent with RV pressure/volume overload. RA dilatation. Moderate TR. -LHC EF 20% with apical akinesis and aneurysmal dilatation and chronic apical thrombus 3. HFrEF with small bilateral pleural effusions on chest x-ray (improved) -Continue diuretics as blood pressure allows -BNP 22,900 down to 13,400, BNP pending today -EF incorrectly calculated on echo due to off axis imaging -EF around 20% on [facility] [place] with chronic apical aneurysm/calcified thrombus. 4. Known coronary artery disease with prior coronary stenting per patient's significant other -[facility] [place], 06/04/2023, mild CAD of LAD and circumflex arteries with chronically occluded dominant RCA with large collateral from LAD. 5. single lead AICD in situ, Bonnie Celeste DR -Reportedly interrogated last week at her physician's office (Dr. Alves) in [place], [place] -Interrogated, 06/04/2023, battery life 8 years, 1 nonsustained SVT at 187 bpm for 14 beats on 05/28/2023 6. Chronic anticoagulation -Eliquis on hold due to low platelets 7. PAD -Chronic right brachiocephalic occlusion from axillary down to forearm with collateral from axillary artery -Right common iliac artery stenosis status post stenting, 06/04/2023 -DAPT therapy for 30 days then consider restarting Eliquis due to severely reduced EF with history of prior apical aneurysm Clinically stable from cardiac standpoint for discharge to rehab facility when bed available. Med recommendations: Aspirin 81 mg daily Plavix 75 mg daily Lisinopril 2.5 mg twice daily Lasix 40 mg twice daily Spironolactone 25 mg twice daily Metoprolol succinate 50 mg daily Farxiga 10 mg daily Protonix 40 mg Magnesium oxide 400 mg twice daily Potassium as needed Recommend follow-up in our office in 1 to 2 weeks with BMP and BNP or patient can follow-up with her solar sales representative in [place], [place] Consider restarting Eliquis in 30 days and stopping either aspirin or Plavix.
[2023-06-05] MEDS: LISINOPRIL 2.5MG TABLET 2.5 MG PO (08:55)
[2023-06-05] MEDS: METOPROLOL SUCCINATE XL 50MG TABLET 50 MG PO (08:56)
[2023-06-05] MEDS: CLOPIDOGREL 75MG TAB 75 MG PO (08:56)
[2023-06-05] MEDS: SPIRONOLACTONE 25MG TABLET 25 MG PO (08:56)
[2023-06-05] MEDS: ASPIRIN 81MG CHEWABLE TABLET 81 MG PO (08:56)
[2023-06-05] MEDS: FUROSEMIDE 40 MG TABLET PO ×2 (08:56→15:26)
[2023-06-05] MEDS: MUPIROCIN 2% OINTMENT 22GM TUBE TP ×2 (08:57→13:39)
[2023-06-05] MEDS: DAPAGLIFLOZIN PROPANEDIOL 10 MG TABLET PO (08:57)
[2023-06-05] MEDS: MAGNESIUM OXIDE 400MG TABLET 400 MG PO (08:57)
[2023-06-05] MEDS: LEVOFLOXACIN/D5W 750 MG/150 ML 750 MG/150 ML PIGGYBACK 100 MG IV (08:58)
[2023-06-05] MEDS: POTASSIUM CHLORIDE 20MEQ TAB 40 MEQ PO (09:04)
[2023-06-05 10:15] LABS: NT Pro Brain Natriuretic Pep. 46000 pg/mL (0-125)
--- NOTE | 2023-06-05 10:18 | EXP.PULM.PN ---
Subjective *Date: 06/05/23 *Time: 10:18 Interval history: No acute respiratory vents overnight. Patient denies any new respiratory complaints. Pulmonology Exam Inpatient Vital signs and Labs for Last 24 Hours: Temp Pulse Resp BP Pulse Ox O2 Del Method O2 Flow Rate 98.5 F 95 H 25 H 135/96 H 96 Nasal Cannula 4 06/05/23 07:25 06/05/23 08:00 06/05/23 07:25 06/05/23 07:25 06/05/23 07:25 06/05/23 08:00 06/05/23 08:00 FiO2 45 06/03/23 09:06 Laboratory Results - last 24 hr 06/04/23 10:56: POC Glucose 108 06/04/23 13:42: Activated Clotting Time > 400 H* 06/04/23 16:14: POC Glucose 76 06/04/23 20:29: POC Glucose 97 06/05/23 05:43: POC Glucose 98 06/05/23 05:44: WBC 8.4, RBC 5.21, Hgb 15.4, Hct 52.6 H, MCV 100.9 H, MCH 29.6, MCHC 29.4 L, RDW 18.7 H, Plt Count 84 L, MPV 10.2, Neut % (Auto) 67.6, Lymph % (Auto) 18.9, [place] % (Auto) 12.1 H, Eos % (Auto) 0.9, Baso % (Auto) 0.5, Neut # (Auto) 5.7, Lymph # (Auto) 1.6, [place] # (Auto) 1.0, Eos # (Auto) 0.1, Baso # (Auto) 0.0, Sodium 137, Potassium 3.5, Chloride 100, Carbon Dioxide 35 H, Anion Gap 5.5, BUN 16, Creatinine 0.80 D, Estimated Creat Clear 80, Estimated GFR 74, Est GFR ( Amer) 89 D, Glucose 87, Calcium 9.7, Magnesium 1.6, Total Bilirubin 1.8 H, AST 56 H, ALT 35 D, Alkaline Phosphatase 159 H, NT-Pro-B Natriuret Pep 82187 H, Total Protein 5.7 L, Albumin 2.9 L, Globulin 2.8, Albumin/Globulin Ratio 1.0 L Temp Pulse Resp BP Pulse Ox O2 Del Method O2 Flow Rate 99.3 F 77 18 101/52 L 95 Mechanical Ventilation 45 06/01/23 04:00 06/01/23 09:37 06/01/23 06:00 06/01/23 06:00 06/01/23 06:00 06/01/23 06:00 05/30/23 01:00 FiO2 60 05/31/23 19:17 Laboratory Results - last 24 hr 05/31/23 11:28: POC Glucose 140 H 05/31/23 16:37: POC Glucose 112 H 06/01/23 05:40: WBC 9.3, RBC 5.02, Hgb 14.8, Hct 49.3 H, MCV 98.2, MCH 29.5, MCHC 30.0 L, RDW 19.1 H, Plt Count 74 L, MPV 10.9 H, Neut % (Auto) 74.0, Lymph % (Auto) 9.4 L, [place] % (Auto) 15.7 H, Eos % (Auto) 0.3, Baso % (Auto) 0.6, Neut # (Auto) 6.8, Lymph # (Auto) 0.9, [place] # (Auto) 1.5 H, Eos # (Auto) 0.0, Baso # (Auto) 0.1, Total Counted 100, Neutrophils % (Manual) 71, Band Neutrophils % 1.0, Lymphocytes % (Manual) 11, Monocytes % (Manual) 17 H, Nucleated RBCs 3, Differential Comment , Platelet Estimate Moderate decrease, RBC Morphology Normal, Sodium 138, Potassium 3.4 L, Chloride 97 L, Carbon Dioxide 39 H, Anion Gap 5.4, BUN 36 H, Creatinine 1.00 D, Estimated Creat Clear 77, Estimated GFR 57 L, Est GFR ( Amer) 69 D, Glucose 110 H, Calcium 8.2 L 06/01/23 08:01: Specimen Source Right radial, O2 % 60, ABG pH 7.49 H, ABG pCO2 47.1 H, ABG pO2 88.8, ABG HCO3 35.2 H, ABG Total CO2 36.6 H, ABG O2 Saturation 97, ABG Base Excess 11.8 H, Ever Test Acceptable, ABG Lactate 1.3, Vent Rate 18, Tidal Volume 420, PEEP 8 I & O for Labs for Last 24 Hours: Intake & Output 06/02/23 06/03/23 06/04/23 06/05/23 23:59 23:59 23:59 23:59 Intake Total 2239.689 / 2239.689 48.379 / 48.379 650 / 650 360 / 360 Output Total 5600 / 5750 2865 / 2865 302 / 302 300 / 300 Balance -3360.311 / -3510.311 -2816.621 / -2816.621 348 / 348 60 / 60 Weight 169 lb 12.8 oz 158 lb 6.4 oz 147 lb 145 lb 6.4 oz Intake & Output 05/29/23 05/30/23 05/31/23 06/01/23 23:59 23:59 23:59 23:59 Intake Total 6.66 / 356.66 547.968 / 924.818 7108.825 / 8340.276 3828 / 1008 Output Total 3580 / 3580 5255 / 5255 2250 / 2250 Balance 6.66 / 356.66 -3032.032 / -3032.032 -3647.175 / -3647.175 -1242 / -1242 Weight 198 lb 6.656 oz 175 lb 4.985 oz 181 lb 14.102 oz 174 lb 9.6 oz Microbiology Reports for the Last 24 Hours: Microbiology 05/29/23 19:52 Blood Blood Culture - Preliminary Microbiology 05/29/23 18:20 Sputum - Endotracheal Tube Aspirate Gram Stain - Final 05/29/23 18:20 Urine,Clean Catch Urine Culture - Final Constitutional: Present moderate distress Head: Present normocephalic and atraumatic Neck: Present normal inspection and trachea midline Respiratory: Present patient mechanically ventilated, respiratory distress, rhonchi and crackles; Absent wheezes Cardiac: Present Irregularly Regular and S1/S2 GI: Present soft; Absent distention or tenderness Skin: Present intact; Absent cyanosis Neuro: Present alert, awake and oriented x 3 Extremities: Present normal inspection; Absent edema, clubbing or cyanosis Psychiatric: Present normal affect and cooperative Assessment and Plan *Assessment and plan (1) Hypoxic respiratory failure: Status: Acute Qualifiers: Chronicity: acute on chronic Qualified Code(s): J96.21 - Acute and chronic respiratory failure with hypoxia Category: Medical Code(s): J96.91 - Respiratory failure, unspecified with hypoxia (2) Pleural effusion, bilateral: Status: Acute Category: Medical Code(s): J90 - Pleural effusion, not elsewhere classified (3) Pneumonia: Status: Acute Category: Medical Code(s): J18.9 - Pneumonia, unspecified organism Plan Ms. Chandler is a 57-year-old female current smoker greater than [id number] smoking history, carries a diagnosis of COPD on chronic oxygen supplementation at 4 L at home as per the patient hypertension hyperlipidemia CHF AICD in place on Eliquis diabetes presented to the ER with worsening mentation needing intubation mechanical ventilatory support and pulmonary was consulted over the weekend for further evaluation and management. CTA upon admission no dense consolidation or airspace disease noted. Large right pleural effusion along with adjacent atelectasis noted. Hyperinflated lungs on chest x-ray. Mild neutrophilic predominant leukocytosis upon admission, improving. MARIA upon admission, improving BUN/creatinine with diuretics. Patient on admission was initiated on broad-spectrum antibiotics including vancomycin and cefepime along with DuoNebs every 6 hours on as-needed basis but she continued to receive diuretics on a daily basis is concerning for volume overload and heart failure exacerbation. Extubated 06/03/2023. Tolerating nasal cannula well. Interval update: No acute respiratory events overnight. On 4 L this morning saturating 94%. Continue to wean as tolerated. Patient home baseline 4 L. Pending to be discharged to rehab. Plan: Continue oxygen supplementation to maintain O2 saturation goal of 90 to 95%. Patient pending to be discharged to rehab. Trelegy 100 inhaler along with DuoNebs every 6 hours and as needed basis Continue levofloxacin to complete total of 7-day course # Thank you for involving pulmonary in this patient care. Pulmonary will sign off at this point of time. Will follow the patient in pulmonary clinic 2 to 3 weeks post discharge.
[2023-06-05] MEDS: MAGNESIUM SULFATE IN WATER 2 GM/50 ML PIGGYBACK IV (10:43)
[2023-06-05 11:23] LABS: POC Glucose,Bedside 87 (70-110)
[2023-06-05 12:00] VITALS: BP 134/87; PULSE 90; PULSE 98; RESP 18; TEMP 36.6; O2SAT 98
--- NOTE | 2023-06-05 14:49 | P.DS_ITS ---
General Admission date:: 05/29/23 Discharge date: 06/05/23 HPI HPI HPI: This is a 57-year-old female history of reported hypertension, hyperlipidemia, CHF with AICD in place currently on Eliquis, diabetes presenting with altered mental status. Patient seen status post intubation, therefore data is limited. Per Ed documentation, patient was reportedly found down, minimally responsive. EMS was called. Patient hypoxemic in the 70s when EMS arrived. Placed on BiPAP, saturations improved to the 90s. Patient brought immediately to the emergency department. Patient acutely ill on arrival, no further information given. Admitted for management and treatment Hospital Course Hospital Course Hospital Course: 57-year-old female history of reported hypertension, hyperlipidemia, CHF with AICD in place currently on Eliquis, diabetes presenting with altered mental status. Patient seen status post intubation, therefore data is limited. Per Ed documentation, patient was reportedly found down, minimally responsive. EMS was called. Patient hypoxemic in the 70s when EMS arrived. Placed on BiPAP, saturations improved to the 90s. On arrival, patient pale, mottled, cyanotic, saturating about [address], GCS 3 and unresponsive, completely obtunded. Bedside ultrasound with plethoric IVC, hyperdynamic heart, free fluid in the abdomen. Patient was intubated and managed for several days on ventilator with improvement with diuresis and treatment for pneumonia. Able to be extubated on 06/02. Tolerating nasal cannula since unable to wean to 4 L by day of discharge. Working with therapy. Pulmonology and cardiology were consulted and assisted with care during admission. Stable to discharge to rehab for further management and convalescence. Problems addressed as follows: Acute on chronic hypoxic respiratory failure: Acute decompensation of CHF. Suspected cardiogenic shock: on mechanical ventilation -Patient was admitted to ICU and intubated on admission. Was managed for approximately 4 days on mechanical ventilation while she was diuresed and antibiotics were administered. She had good improvement with diuresis. Able to wean ventilator settings and extubate on 06/02. Patient transitioned to nasal cannula oxygen necessitating 3 to 4 L by day of discharge to maintain sats above 90%. Patient was treated with broad-spectrum antibiotics initially with Zosyn and vancomycin. Transitioned to vancomycin and cefepime with gradual de- escalation of levofloxacin. Treated for total of 7 days. Has completed antibiotics by day of discharge. Sputum culture was positive for haemophilus influenza. Given clinical improvement, normalization of white count 8.4, completion of antibiotics, no further treatment at this time. Will continue management for COPD and respiratory failure with Trelegy 100 inhaler and DuoNebs every 6 hours as needed. Continue diuresis as below. Has diuresed over 16 L of negative fluid status during admission. Electrolyte disturbances: Patient has had hypokalemia and hypomagnesemia during admission. Tolerating p.o. repletion at this time. Continue at discharge. Recommend repeat CBC, CMP, magnesium in 3 days Acute HFrEF: CAD -Initiated on aggressive diuresis. Diuresed well with -16 L fluid balance since admission. Cardiology was consulted and assisted with management. Recommend continuing diuresis. Formal echo was obtained On 05/31 showing ejection fraction greater than 50%. Does have severely dilated RV with mild reduction in RV fun ction. Does have apical dysfunction with calcified thrombus. Was taken to the Dialysis Technician on 06/03. Ventriculogram concerning for severely reduced ejection fraction with mid anterior apical and inferior apical akinesis with aneurysmal dilatation and chronic apical thrombus. Patient had chronically occluded right brachial artery, right common iliac artery. Chronically occluded ostial dominant right coronary artery with large LAD collateral. Received a stent to her right common iliac with improvement in flow. Will continue dual antiplatelet therapy for 30 days with aspirin and Plavix. At that point recommend continuing Plavix with the addition of DOAC if platelets improve above 100. - AICD in place -Goal-directed therapy for heart failure per med rec including Farxiga, lisinopril, metoprolol, spironolactone, Crestor. Thrombocytopenia: Holding Lovenox anticoagulation due to platelets less than 100 during admission. Rash on thighs, small pustules. Nonpainful. Continue mupirocin topically for an additional 5 days. Concern for folliculitis. Patient graciously accepted by [facility] for further management. Total time spent on discharge 35 minutes in counseling, documentation, chart review, and direct care with patient. Exam Data for Last 24 hours Vital signs and Labs for Last 24 Hours: Temp Pulse Resp BP Pulse Ox O2 Del Method O2 Flow Rate 97.8 F 98 H 18 134/87 98 Nasal Cannula 4 06/05/23 12:00 06/05/23 12:00 06/05/23 12:00 06/05/23 12:00 06/05/23 12:00 06/05/23 14:35 06/05/23 14:35 FiO2 45 06/03/23 09:06 Laboratory Results - last 24 hr 06/04/23 13:42: Activated Clotting Time > 400 H* 06/04/23 16:14: POC Glucose 76 06/04/23 20:29: POC Glucose 97 06/05/23 05:43: POC Glucose 98 06/05/23 05:44: WBC 8.4, RBC 5.21, Hgb 15.4, Hct 52.6 H, MCV 100.9 H, MCH 29.6, MCHC 29.4 L, RDW 18.7 H, Plt Count 84 L, MPV 10.2, Neut % (Auto) 67.6, Lymph % (Auto) 18.9, [place] % (Auto) 12.1 H, Eos % (Auto) 0.9, Baso % (Auto) 0.5, Neut # (Auto) 5.7, Lymph # (Auto) 1.6, [place] # (Auto) 1.0, Eos # (Auto) 0.1, Baso # (Auto) 0.0, Sodium 137, Potassium 3.5, Chloride 100, Carbon Dioxide 35 H, Anion Gap 5.5, BUN 16, Creatinine 0.80 D, Estimated Creat Clear 80, Estimated GFR 74, Est GFR ( Amer) 89 D, Glucose 87, Calcium 9.7, Magnesium 1.6, Total Bilirubin 1.8 H, AST 56 H, ALT 35 D, Alkaline Phosphatase 159 H, NT-Pro-B Natriuret Pep 83762 H, Total Protein 5.7 L, Albumin 2.9 L, Globulin 2.8, Albumin/Globulin Ratio 1.0 L 06/05/23 11:16: POC Glucose 87 I & O for Last 24 hours: Intake & Output 06/02/23 06/03/23 06/04/23 06/05/23 23:59 23:59 23:59 23:59 Intake Total 2239.689 / 2239.689 48.379 / 48.379 650 / 650 720 / 720 Output Total 5600 / 5750 2865 / 2865 302 / 302 300 / 300 Balance -3360.311 / -3510.311 -2816.621 / -2816.621 348 / 348 420 / 420 Weight 77.02 kg 71.849 kg 66.678 kg 65.952 kg Microbiology Reports for the Last 24 Hours: Microbiology 05/29/23 19:52 Blood Blood Culture - Final Constitutional Constitutional: no acute distress, average body habitus, chronically ill appearing and cooperative *Routine HEENT Exam Head: Present normocephalic and cushingoid faces Eye: Present EOMI and PERRL ENT: Present mucous membranes moist *Routine Neck Exam Neck: Present supple; Absent lymphadenopathy Routine Chest/Breast/Axilla Exam Chest wall: Absent tenderness Comments: Pacemaker in right chest *Routine Respiratory Exam Respiratory: Present prolonged expiratory phase, rhonchi, wheezes and crackles *Routine Cardiovascular Exam Cardiovascular: Present RRR *Routine Abdominal Exam Abdominal: Present soft and normoactive bowel sounds; Absent tenderness *Routine Rectal Exam Patient deferred: visual exam *Routine Exam Patient deferred: external exam *Routine Extremities Exam Extremities: Absent cyanosis, clubbing or edema Comments: Thin, sarcopenia *Routine Skin Exam Skin: Present warm; Absent rash Comments: Ecchymoses on arms *Routine Neurological Exam Neurological: Present alert, oriented X3 and moving all extremities; Absent altered mental status Results Data Completed and Pending Labs on day of discharge: Labs from last 24 hours 06/05/23 06/05/23 06/05/23 11:16 05:44 05:43 WBC 8.4 RBC 5.21 Hgb 15.4 Hct 52.6 H MCV 100.9 H MCH 29.6 MCHC 29.4 L RDW 18.7 H Plt Count 84 L MPV 10.2 Neut % (Auto) 67.6 Lymph % (Auto) 18.9 [place] % (Auto) 12.1 H Eos % (Auto) 0.9 Baso % (Auto) 0.5 Neut # (Auto) 5.7 Lymph # (Auto) 1.6 [place] # (Auto) 1.0 Eos # (Auto) 0.1 Baso # (Auto) 0.0 Activated Clotting Time Sodium 137 Potassium 3.5 Chloride 100 Carbon Dioxide 35 H Anion Gap 5.5 BUN 16 Creatinine 0.80 D Estimated Creat Clear 80 Estimated GFR 74 Est GFR ( Amer) 89 D Glucose 87 POC Glucose 87 98 Calcium 9.7 Magnesium 1.6 Total Bilirubin 1.8 H AST 56 H ALT 35 D Alkaline Phosphatase 159 H NT-Pro-B Natriuret Pep 05141 H Total Protein 5.7 L Albumin 2.9 L Globulin 2.8 Albumin/Globulin Ratio 1.0 L 06/04/23 06/04/23 06/04/23 20:29 16:14 13:42 WBC RBC Hgb Hct MCV MCH MCHC RDW Plt Count MPV Neut % (Auto) Lymph % (Auto) [place] % (Auto) Eos % (Auto) Baso % (Auto) Neut # (Auto) Lymph # (Auto) [place] # (Auto) Eos # (Auto) Baso # (Auto) Activated Clotting Time > 400 H* Sodium Potassium Chloride Carbon Dioxide Anion Gap BUN Creatinine Estimated Creat Clear Estimated GFR Est GFR ( Amer) Glucose POC Glucose 97 76 Calcium Magnesium Total Bilirubin AST ALT Alkaline Phosphatase NT-Pro-B Natriuret Pep Total Protein Albumin Globulin Albumin/Globulin Ratio Preliminary micro results at discharge 05/29/23 18:11 Blood Culture - Preliminary Blood DS: Diagnosis Discharge Diagnosis (1) Hypoxic respiratory failure: Status: Acute Code(s): J96.91 - Respiratory failure, unspecified with hypoxia Qualifiers: Chronicity: acute on chronic Qualified Code(s): J96.21 - Acute and chronic respiratory failure with hypoxia (2) Pleural effusion, bilateral: Status: Acute Code(s): J90 - Pleural effusion, not elsewhere classified (3) Pneumonia: Status: Acute Code(s): J18.9 - Pneumonia, unspecified organism (4) HFrEF (heart failure with reduced ejection fraction): Status: Acute Code(s): I50.20 - Unspecified systolic (congestive) heart failure (5) Ischemic cardiomyopathy with implantable cardioverter-defibrillator (ICD): Status: Acute Code(s): I25.5 - Ischemic cardiomyopathy; Z95.810 - Presence of automatic (implantable) cardiac defibrillator (6) Acute exacerbation of CHF (congestive heart failure): Status: Acute Code(s): I50.9 - Heart failure, unspecified Qualifiers: Heart failure type: combined systolic and diastolic Qualified Code(s): I50.43 - Acute on chronic combined systolic (congestive) and diastolic (congestive) heart failure (7) PAD (peripheral artery disease): Status: Acute Code(s): I73.9 - Peripheral vascular disease, unspecified Meds Home Medications and Allergies Home Medications Medication Instructions Recorded Confirmed Type apixaban 5 mg tablet (Eliquis) 5 mg PO BID 05/29/23 05/30/23 History clopidogrel 75 mg tablet 75 mg PO DAILY 05/29/23 05/30/23 History folic acid 1 mg tablet 1 mg PO DAILY 05/29/23 05/30/23 History montelukast 10 mg tablet 10 mg PO PM 05/29/23 05/30/23 History pantoprazole 40 mg tablet,delayed 40 mg PO DAILY 05/29/23 05/30/23 History release rosuvastatin 10 mg tablet 10 mg PO HS 05/30/23 05/30/23 History aspirin 81 mg chewable tablet 81 mg PO DAILY 30 days #30 tabs 06/05/23 Rx dapagliflozin propanediol 10 mg 10 mg PO DAILY 30 days #30 tabs 06/05/23 Rx tablet (Farxiga) fluticasone fur. 100 mcg-umeclid 1 inh inhalation DAILY 30 days #1 06/05/23 Rx 62.5 mcg-vilant 25 mcg ea inhalat.powder (Trelegy Ellipta) furosemide 40 mg tablet 40 mg PO BIDL 30 days #60 tabs 06/05/23 Rx ipratropium 0.5 mg-albuterol 3 mg 3 ml inhalation Q6HP PRN Shortness 06/05/23 Rx (2.5 mg base)/3 mL nebulization Of Breath 30 days #0 mL soln lisinopril 2.5 mg tablet 2.5 mg PO BID 30 days #60 tabs 06/05/23 Rx magnesium oxide 400 mg (241.3 mg 400 mg PO BID 30 days #60 tabs 06/05/23 Rx magnesium) tablet metoprolol succinate 50 mg 50 mg PO DAILY 30 days #30 tabs 06/05/23 Rx tablet,extended release 24 hr (Toprol XL) mupirocin 2 % topical ointment 0 applic topical TID 5 days #1 g 06/05/23 Rx potassium chloride 20 mEq 40 meq (2 x 20 mEq) PO DAILY 10 06/05/23 Rx tablet,extended days #20 tabs release(part/cryst) (Klor-Con M) spironolactone 25 mg tablet 25 mg PO BID 30 days #60 tabs 06/05/23 Rx New Prescriptions to Start Prescriptions: aspirin Jose,Pedro dapagliflozin propanediol [Farxiga] Jose,Pedro [id number] [Trelegy Ellipta] Jose,Pedro furosemide Jose,Pedro lisinopril Jose,Pedro magnesium oxide Pedro Garcia metoprolol succinate [Toprol XL] Jose,Pedro mupirocin Jose,Pedro potassium chloride [Klor-Con M20] Jose,Pedro spironolactone Pedro Garcia Allergies Allergy/AdvReac Type Severity Reaction Status Date / Time No Known Allergies Allergy Verified 01/21/18 14:48 Discharge Plan Disposition Patient Disposition: er [facility] Condition: Fair Discharge Order Discharge Orders: Discharge Order (Routine); Ordered 06/05/23 Ordered By: Pedro Garcia Follow up Plan Follow up with: Phillip Vargas MD [Staff Physician] - Enter time for follow up Ilda Santoyo MD [Physician] - Enter time for follow up Prescriptions/Medication Reconciliation: New aspirin 81 mg Tablet,Chewable 81 mg PO DAILY 30 Days Qty: 30 0RF dapagliflozin propanediol [Farxiga] 10 mg Tablet 10 mg PO DAILY 30 Days Qty: 30 0RF Trelegy Ellipta 100-62.5-25 mcg Blister With Device 1 inh inhalation DAILY 30 Days Qty: 1 0RF furosemide 40 mg Tablet 40 mg PO BIDL 30 Days Qty: 60 0RF ipratropium-albuterol 0.5 mg-3 mg(2.5 mg base)/3 mL Solution For Nebulization 3 ml inhalation Q6HP PRN (Reason: Shortness Of Breath) 30 Days Qty: 0 0RF metoprolol succinate [Toprol XL] 50 mg Tablet Extended Release 24 Hr 50 mg PO DAILY 30 Days Qty: 30 0RF spironolactone 25 mg Tablet 25 mg PO BID 30 Days Qty: 60 0RF potassium chloride [Klor-Con M20] 20 mEq Tablet,Er Particles/Crystals 40 meq PO DAILY 10 Days Qty: 20 0RF magnesium oxide 400 mg (241.3 mg magnesium) Tablet 400 mg PO BID 30 Days Qty: 60 0RF mupirocin 2 % Ointment 0 applic topical TID 5 Days Qty: 1 0RF lisinopril 2.5 mg Tablet 2.5 mg PO BID 30 Days Qty: 60 0RF Continued clopidogrel 75 mg tablet 75 mg PO DAILY Patient Comments: TAKE ONE TABLET BY MOUTH EVERY DAY pantoprazole 40 mg tablet,delayed release (DR/EC) 40 mg PO DAILY Patient Comments: TAKE ONE TABLET BY MOUTH EVERY DAY folic acid 1 mg tablet 1 mg PO DAILY Patient Comments: TAKE ONE TABLET BY MOUTH EVERY DAY montelukast 10 mg tablet 10 mg PO PM Patient Comments: TAKE ONE TABLET BY MOUTH EVERY DAY IN THE EVENING rosuvastatin 10 mg tablet 10 mg PO HS Patient Comments: TAKE ONE TABLET BY MOUTH EVERY EVENING Held Eliquis 5 mg tablet 5 mg PO BID Hold Instructions: Pending improvement in platelet Patient Comments: TAKE ONE TABLET BY MOUTH TWICE DAILY Discontinued lisinopril 10 mg tablet 10 mg PO DAILY potassium chloride 10 mEq capsule, extended release 10 meq PO AM Patient Comments: TAKE ONE CAPSULE BY MOUTH EVERY DAY IN THE MORNING metoprolol succinate 50 mg tablet extended release 24 hr 50 mg PO HS Patient Comments: TAKE ONE TABLET BY MOUTH EVERY EVENING topiramate 25 mg tablet 25 mg PO HS Patient Comments: TAKE ONE TABLET BY MOUTH EVERY EVENING furosemide 20 mg tablet 20 mg PO AM Patient Comments: TAKE ONE TABLET BY MOUTH EVERY DAY IN THE MORNING gabapentin 600 mg tablet 600 mg PO Q8H Patient Comments: TAKE ONE TABLET BY MOUTH EVERY 8 HOURS Problem Reconciliation Problems Reviewed?: Yes Patient Discharge Instructions ACTIVITY: Continue current activity, Ambulate as tolerated and Up with assistance DIET: continue same diet Patient Instructions: DI for Heart Failure, DI for Sepsis -- Adult, Ventilator- Associated Pneumonia, DI for Respiratory Failure, DI for Central Line-Associated Bloodstream Infections, Catheter-Associated Urinary Tract Infection Providers Primary Care Provider: Linh Doty Admit Provider: Ganesh Morales Attending Provider: Ganesh Morales
--- NOTE | 2023-06-05 16:00 | PC.NURSE ---
Home Medications Medication Instructions Recorded Confirmed apixaban 5 mg tablet (Eliquis) 5 mg PO BID 05/29/23 05/30/23 clopidogrel 75 mg tablet 75 mg PO DAILY 05/29/23 05/30/23 folic acid 1 mg tablet 1 mg PO DAILY 05/29/23 05/30/23 montelukast 10 mg tablet 10 mg PO PM 05/29/23 05/30/23 pantoprazole 40 mg tablet,delayed 40 mg PO DAILY 05/29/23 05/30/23 release rosuvastatin 10 mg tablet 10 mg PO HS 05/30/23 05/30/23 Previous Rx's Medication Instructions Recorded aspirin 81 mg chewable tablet 81 mg PO DAILY 30 days #30 tabs 06/05/23 dapagliflozin propanediol 10 mg 10 mg PO DAILY 30 days #30 tabs 06/05/23 tablet (Farxiga) fluticasone fur. 100 mcg-umeclid 1 inh inhalation DAILY 30 days #1 06/05/23 62.5 mcg-vilant 25 mcg ea inhalat.powder (Trelegy Ellipta) furosemide 40 mg tablet 40 mg PO BIDL 30 days #60 tabs 06/05/23 ipratropium 0.5 mg-albuterol 3 mg 3 ml inhalation Q6HP PRN Shortness 06/05/23 (2.5 mg base)/3 mL nebulization Of Breath 30 days #0 mL soln lisinopril 2.5 mg tablet 2.5 mg PO BID 30 days #60 tabs 06/05/23 magnesium oxide 400 mg (241.3 mg 400 mg PO BID 30 days #60 tabs 06/05/23 magnesium) tablet metoprolol succinate 50 mg 50 mg PO DAILY 30 days #30 tabs 06/05/23 tablet,extended release 24 hr (Toprol XL) mupirocin 2 % topical ointment 0 applic topical TID 5 days #1 g 06/05/23 potassium chloride 20 mEq 40 meq (2 x 20 mEq) PO DAILY 10 06/05/23 tablet,extended days #20 tabs release(part/cryst) (Klor-Con M) spironolactone 25 mg tablet 25 mg PO BID 30 days #60 tabs 06/05/23
== END 2023-06-05 16:30 | DRG 981 ==
LOC: ER 19:46 → 2ND 05-30 05:06
PROVIDERS: Internal Medicine; Internal Medicine Adolescent Medicine; Internal Medicine Pulmonary Disease; Nurse Practitioner Family; Physician Assistant; Admitting Provider Internal Medicine; Emergency Provider Emergency Medicine; PCP Family Medicine; Visit Provider Internal Medicine
PROC: 04HC3DZ Insertion of Intraluminal Device into Right Common Iliac Artery, Percutaneous Approach (ICD-10-PCS; principal; 2023-06-04 13:30)
DX: J96.21 Acute and chronic respiratory failure with hypoxia (principal); I21.4 Non-ST elevation (NSTEMI) myocardial infarction; I50.43 Acute on chronic combined systolic (congestive) and diastolic (congestive) heart failure; R57.0 Cardiogenic shock; J18.9 Pneumonia, unspecified organism; N17.9 Acute kidney failure, unspecified; I70.92 Chronic total occlusion of artery of the extremities; I25.5 Ischemic cardiomyopathy; Z95.810 Presence of automatic (implantable) cardiac defibrillator; I11.0 Hypertensive heart disease with heart failure; E78.5 Hyperlipidemia, unspecified; F17.210 Nicotine dependence, cigarettes, uncomplicated; D69.6 Thrombocytopenia, unspecified; E87.6 Hypokalemia; I70.201 Unspecified atherosclerosis of native arteries of extremities, right leg; I77.1 Stricture of artery; Z79.01 Long term (current) use of anticoagulants; E11.51 Type 2 diabetes mellitus with diabetic peripheral angiopathy without gangrene; J44.9 Chronic obstructive pulmonary disease, unspecified; I25.10 Atherosclerotic heart disease of native coronary artery without angina pectoris; I70.8 Atherosclerosis of other arteries
CPT/HCPCS: 36556; 31500; 36215; 36225; 36415; 37221; 51702; 70450; 70496; 70498; 71045; 71275; 72125; 72128; 72131; 73502; 73552; 73562; 74018; 74174; 75710; 80048; 80053; 80202; 80307; 81001; 82803; 82947; 82962; 83605; 83615; 83735; 83880; 84100; 84484; 85007; 85014; 85018; 85025; 85048; 85049; 85347; 85384; 85610; 85651; 85730; 86880; 87040; 87070; 87086; 87205; 87632; 87635; 92610; 93005; 93306; 93458; 94002; 94003; 94640; 94761; 97110; 97163; 97165; 97530; 99152; 99153; 99291; 99292; C1725; C1751; C1760; C1769; C1876; C1894; J0330; J1644; J1956; J2543; J2704; J3370; J3475; Q9967

== ENCOUNTER 2023-07-01 13:57 | Outpatient (CLI) | payer MEDICARE, SELFPAY ==
[2023-07-01 14:43] LABS: Chloride 94 mmol/L (98-107)
[2023-07-01 14:44] LABS: Sodium 129 mmol/L (136-145)
[2023-07-01 14:47] LABS: Anion Gap 14.5 mEq/L (5-15); Blood Urea Nitrogen 56 mg/dl (7-17); Calcium 11.6 mg/dl (8.4-10.2); Carbon Dioxide 27 mmol/L (22.0-30.0); Estimated Glomerular Filt Rate 51 ml/min (>60); GFR (African American) 62 ML/MIN (>60); Glucose 99 mg/dl (74-100)
[2023-07-01 14:55] LABS: NT Pro Brain Natriuretic Pep. 1130 pg/mL (0-125)
[2023-07-01 15:20] LABS: Potassium 6.5 mmoL/L (3.5-5.1)
== END 2023-07-01 23:59 | disposition home or self-care (01) ==
PROVIDERS: Physician Assistant; PCP Nurse Practitioner Family; Visit Provider Internal Medicine Pulmonary Disease
DX: J43.9 Emphysema, unspecified (principal); I25.10 Atherosclerotic heart disease of native coronary artery without angina pectoris; I50.20 Unspecified systolic (congestive) heart failure; I25.5 Ischemic cardiomyopathy; Z95.810 Presence of automatic (implantable) cardiac defibrillator
CPT/HCPCS: 36415; 80048; 83880

== ENCOUNTER 2023-07-01 16:25 | Inpatient (IN) | payer MEDICARE, SELFPAY ==
[2023-07-01] VITALS (11 sets, daily range): BP systolic 97–114; BP diastolic 56–73; PULSE 90–126; RESP 14–22; TEMP 36.6–36.9; O2SAT 91–99; BMI 17.4; BMI 18.9
--- NOTE | 2023-07-01 16:35 | ED_ITS ---
<Statement entered by Patti Encarnacion DO - 07/01/23 18:55> I was consulted by the SHAWN, and we discussed the complexity of the problems being addressed. I approved the treatment and management plan for this patient's care in the emergency department, thus performing a substantive portion of the medical decision making. Patti Encarnacion DO Discharge Plan Disposition Patient Disposition: Admitted Condition: Good Clinical Impressions Clinical Impression: Hyperkalemia, Acute nontraumatic kidney injury Discharge ED Provider: Patti Encarnacion General Adult HPI <ABEL Jimenez - Last Filed: 07/01/23 17:52> General Chief complaint: Recheck/Abnormal Lab/Rx Stated complaint: sent by Raymundo Bergeron- high potassium Time Seen by Provider: 07/01/23 16:30 History of Present Illness HPI narrative: Patient presents at the behest of her can solderer for treatment of elevated potassium. Patient had routine cardiology follow-up today and had previous labs which showed an elevated potassium. She was sent here for evaluation. Patient herself denies chest pain fever chills hemoptysis hematochezia melena nausea vomit diarrhea. Patient's outpatient labs shows a potassium of 6.5 creatinine 1.1 BUN of 56 GFR 51 calcium of 11.6 NT proBNP of 1130. Related Data Home Medications Medication Instructions Recorded Confirmed clopidogrel 75 mg tablet 75 mg PO DAILY 05/29/23 06/17/23 folic acid 1 mg tablet 1 mg PO DAILY 05/29/23 06/17/23 montelukast 10 mg tablet 10 mg PO PM 05/29/23 06/17/23 rosuvastatin 10 mg tablet 10 mg PO HS 05/30/23 06/17/23 omeprazole 40 mg capsule,delayed 40 mg PO DAILY 06/08/23 06/17/23 release Previous Rx's Medication Instructions Recorded aspirin 81 mg chewable tablet 81 mg PO DAILY 30 days #30 tabs 06/05/23 dapagliflozin propanediol 10 mg 10 mg PO DAILY 30 days #30 tabs 06/05/23 tablet (Farxiga) furosemide 40 mg tablet 40 mg PO BIDL 30 days #60 tabs 06/05/23 lisinopril 2.5 mg tablet 2.5 mg PO BID 30 days #60 tabs 06/05/23 magnesium oxide 400 mg (241.3 mg 400 mg PO BID 30 days #60 tabs 06/05/23 magnesium) tablet metoprolol succinate 50 mg 50 mg PO DAILY 30 days #30 tabs 06/05/23 tablet,extended release 24 hr (Toprol XL) mupirocin 2 % topical ointment 0 applic topical TID 5 days #1 g 06/05/23 potassium chloride 20 mEq 40 meq (2 x 20 mEq) PO DAILY 10 06/05/23 tablet,extended days #20 tabs release(part/cryst) (Klor-Con M) spironolactone 25 mg tablet 25 mg PO BID 30 days #60 tabs 06/05/23 fluticasone fur. 100 mcg-umeclid 1 inh inhalation DAILY 30 days #1 06/17/23 62.5 mcg-vilant 25 mcg ea inhalat.powder (Trelegy Ellipta) ipratropium 0.5 mg-albuterol 3 mg 3 ml inhalation QID PRN Shortness 06/17/23 (2.5 mg base)/3 mL nebulization Of Breath 30 days #180 mL soln Allergies Allergy/AdvReac Type Severity Reaction Status Date / Time No Known Allergies Allergy Verified 06/17/23 13:09 [facility] <ABEL Jimeenz - Last Filed: 07/01/23 17:52> [facility] Disclaimer: The information contained in this section may have been updated after the patient was seen, as this information can be updated by other users. Medical History Chronic respiratory failure with hypoxia History of smoking 30 or more pack years Pulmonary emphysema Coronary artery disease Pneumonia Pleural effusion, bilateral Acute respiratory failure with hypoxia ICD (implantable cardioverter-defibrillator) in place Hypertension Hyperlipemia Claudication Chronic respiratory failure Left ventricular thrombosis Ischemic cardiomyopathy with implantable cardioverter-defibrillator (ICD) Venous (peripheral) insufficiency HFrEF (heart failure with reduced ejection fraction) Seizure Surgical History H/O cardiac catheterization No history of previous surgery Family History Other COPD (chronic obstructive pulmonary disease) Cancer Diabetes Heart attack Hypertension Social History (Updated 07/01/23 @ 18:15 by Tequila Murry, SARAH) Smoking Status: Former smoker tobacco type: cigarettes packs per day: 1 alcohol intake: never substance use type: denies use current occupational status: disabled Travel in the last 8 weeks: None caffeine: No <ABEL Jimenez - Last Filed: 07/01/23 17:52> ROS Obtained: Yes Systems reviewed as appropriate & no additional complaints except as documented Physical Exam <ABEL Jimenez - Last Filed: 07/01/23 17:52> General General appearance: alert and in no apparent distress Respiratory Respiratory exam: Present normal lung sounds bilaterally Cardiovascular Cardiovascular exam: Present regular rate and normal rhythm Neurological Exam Neurological exam: Present alert and oriented X3 Medical Decision Making <ABEL Jimenez - Last Filed: 07/01/23 17:52> Medical Records Medical records reviewed: Yes I reviewed the patient's medical records. Eran Inquiry Pt receiving controlled substance: No Vital Signs: 07/01/23 16:26 07/01/23 17:00 07/01/23 17:30 Temperature 98.0 F Temperature Source Oral Pulse Rate 90 109 H Pulse Rate [Right Radial] 120 H Respiratory Rate 14 18 18 Blood Pressure 105/59 L 100/71 L Blood Pressure [Right Arm] 105/73 L Blood Pressure Mean [Right Arm] 83 02 Sat by Pulse Oximetry 95 95 99 Oxygen Delivery Method Room Air Room Air Room Air 07/01/23 18:00 07/01/23 18:21 07/01/23 18:30 Temperature 98.0 F Temperature Source Pulse Rate 123 H 119 H 103 H Pulse Rate [Right Radial] Respiratory Rate 19 20 22 Blood Pressure 97/61 L 97/61 L 105/67 L Blood Pressure [Right Arm] Blood Pressure Mean [Right Arm] 02 Sat by Pulse Oximetry 91 L 93 L Oxygen Delivery Method Room Air Room Air Room Air 07/01/23 18:36 Temperature Temperature Source Pulse Rate 111 H Pulse Rate [Right Radial] Respiratory Rate 17 Blood Pressure 114/67 Blood Pressure [Right Arm] Blood Pressure Mean [Right Arm] 02 Sat by Pulse Oximetry 92 L Oxygen Delivery Method Room Air Lab Data Lab results reviewed: Yes I reviewed the patient's lab results. Lab Results 07/01/23 16:57: Sodium 129 L, Potassium 6.2 H*, Chloride 96 L, Carbon Dioxide 26, Anion Gap 13.2, BUN 60 H, Creatinine 1.50 H D, Estimated Creat Clear 36, E stimated GFR 36 L, Est GFR ( Amer) 43 L D, Glucose 138 H D, Calcium 10.9 H, Total Bilirubin 0.6, AST 44 H, ALT 31, Alkaline Phosphatase 104, Total Protein 7.6 D, Albumin 4.4, Globulin 3.2, Albumin/Globulin Ratio 1.4 07/01/23 17:45: Urine Color Yellow, Urine Appearance Clear, Urine pH 6.0, Ur Specific [place] 1.010, Urine Protein Negative, Urine Glucose (UA) 2+, Urine Ketones Negative, Urine Blood Negative, Urine Nitrate Negative, Urine Bilirubin Negative, Urine Urobilinogen 0.2, Ur Leukocyte Esterase 1+ A 07/01/23 16:57 Orders (Tests/Meds): ED MEDICATIONS Generic Name Dose Route Start Last Admin Trade Name Freq PRN Reason Stop Dose Admin Sodium Chloride 1,000 mls @ 500 mls/hr 07/01/23 17:15 07/01/23 17:37 Sod Chlor 0.9% 1000ml Bag IV 07/31/23 17:14 500 mls/hr .Q2H KIESHA Administration Discontinued Medications Generic Name Dose Route Start Last Admin Trade Name Freq PRN Reason Stop Dose Admin Albuterol Sulfate 10 mg 07/01/23 16:38 07/01/23 17:09 Albuterol 0.083% 2.5 Mg/3 Ml Neb IH 07/01/23 16:39 10 mg ONCE ONE Administration Dextrose 50 ml 07/01/23 16:38 07/01/23 16:58 Dextrose 50% 50ml Syringe (Crash Cart) IVP 07/01/23 16:39 50 ml ONCE ONE Administration Calcium Gluconate/Sodium Chloride 1 gm in 50 mls @ 50 mls/hr 07/01/23 16:40 07/01/23 16:58 Calcium Gluconate 1,000mg/50ml Nacl Premix IV 07/01/23 17:39 50 mls/hr ONCE ONE Administration Insulin Human Regular 10 unit 07/01/23 16:38 07/01/23 16:59 Insulin Human Regular 100 Units/Ml 10ml Vial IVP 07/01/23 16:39 10 unit ONCE ONE Administration ORDERS Category Date Time Status Basic Metabolic Panel Routine Lab 07/01/23 22:00 Ordered Complete Blood Count Auto Diff AMLAB Lab 07/02/23 06:00 Ordered Comprehensive Metabolic Panel AMLAB Lab 07/02/23 06:00 Ordered Comprehensive Metabolic Panel Stat Lab 07/01/23 16:57 Completed Magnesium AMLAB Lab 07/02/23 06:00 Ordered Urinalysis and Microscopic Stat Lab 07/01/23 17:45 Results Urine Culture Stat Micro 07/01/23 17:45 Received Medical Decision Narrative: In summary patient is a 57-year-old female who presents to the emergency department for evaluation of elevated potassium. Patient is normotensive with a blood pressure 105/73 tachycardic with a pulse of 120 on arrival upon arrival, febrile. Physical exam unremarkable.. Differential diagnosis includes EKG abnormalities, ACS, renal failure, accidental overmedication of potassium etc. Initial workup will be conducted with repeating of her chemistries. Initial interventions include normal saline bolused 1 L given patient's known heart failure, 10 units of insulin a gram of calcium and D50. Initial workup reviewed by me shows that she has an acute kidney injury with increased creatinine and reduced GFR and hyponatremia,. Upon repeat evaluation patient still has no EKG changes. Given this I had interactive discussion with hospital medicine regarding patient management and they have accepted the patient for admission and continued management.. <Patti Encarnacion, DO - Last Filed: 07/01/23 18:55> Vital Signs: 07/01/23 16:26 07/01/23 17:00 07/01/23 17:30 Temperature 98.0 F Temperature Source Oral Pulse Rate 90 109 H Pulse Rate [Right Radial] 120 H Respiratory Rate 14 18 18 Blood Pressure 105/59 L 100/71 L Blood Pressure [Right Arm] 105/73 L Blood Pressure Mean [Right Arm] 83 02 Sat by Pulse Oximetry 95 95 99 Oxygen Delivery Method Room Air Room Air Room Air 07/01/23 18:00 07/01/23 18:21 07/01/23 18:30 Temperature 98.0 F Temperature Source Pulse Rate 123 H 119 H 103 H Pulse Rate [Right Radial] Respiratory Rate 19 20 22 Blood Pressure 97/61 L 97/61 L 105/67 L Blood Pressure [Right Arm] Blood Pressure Mean [Right Arm] 02 Sat by Pulse Oximetry 91 L 93 L Oxygen Delivery Method Room Air Room Air Room Air 07/01/23 18:36 Temperature Temperature Source Pulse Rate 111 H Pulse Rate [Right Radial] Respiratory Rate 17 Blood Pressure 114/67 Blood Pressure [Right Arm] Blood Pressure Mean [Right Arm] 02 Sat by Pulse Oximetry 92 L Oxygen Delivery Method Room Air Lab Data Lab Results 07/01/23 16:57: Sodium 129 L, Potassium 6.2 H*, Chloride 96 L, Carbon Dioxide 26, Anion Gap 13.2, BUN 60 H, Creatinine 1.50 H D, Estimated Creat Clear 36, E stimated GFR 36 L, Est GFR ( Amer) 43 L D, Glucose 138 H D, Calcium 10.9 H, Total Bilirubin 0.6, AST 44 H, ALT 31, Alkaline Phosphatase 104, Total Protein 7.6 D, Albumin 4.4, Globulin 3.2, Albumin/Globulin Ratio 1.4 07/01/23 17:45: Urine Color Yellow, Urine Appearance Clear, Urine pH 6.0, Ur Specific [place] 1.010, Urine Protein Negative, Urine Glucose (UA) 2+, Urine Ketones Negative, Urine Blood Negative, Urine Nitrate Negative, Urine Bilirubin Negative, Urine Urobilinogen 0.2, Ur Leukocyte Esterase 1+ A Orders (Tests/Meds): ED MEDICATIONS Generic Name Dose Route Start Last Admin Trade Name Freq PRN Reason Stop Dose Admin Sodium Chloride 1,000 mls @ 500 mls/hr 07/01/23 17:15 07/01/23 17:37 Sod Chlor 0.9% 1000ml Bag IV 07/31/23 17:14 500 mls/hr .Q2H KIESHA Administration Discontinued Medications Generic Name Dose Route Start Last Admin Trade Name Freq PRN Reason Stop Dose Admin Albuterol Sulfate 10 mg 07/01/23 16:38 07/01/23 17:09 Albuterol 0.083% 2.5 Mg/3 Ml Neb IH 07/01/23 16:39 10 mg ONCE ONE Administration Dextrose 50 ml 07/01/23 16:38 07/01/23 16:58 Dextrose 50% 50ml Syringe (Crash Cart) IVP 07/01/23 16:39 50 ml ONCE ONE Administration Calcium Gluconate/Sodium Chloride 1 gm in 50 mls @ 50 mls/hr 07/01/23 16:40 07/01/23 16:58 Calcium Gluconate 1,000mg/50ml Nacl Premix IV 07/01/23 17:39 50 mls/hr ONCE ONE Administration Insulin Human Regular 10 unit 07/01/23 16:38 07/01/23 16:59 Insulin Human Regular 100 Units/Ml 10ml Vial IVP 07/01/23 16:39 10 unit ONCE ONE Administration ORDERS Category Date Time Status Basic Metabolic Panel Routine Lab 07/01/23 22:00 Ordered Complete Blood Count Auto Diff AMLAB Lab 07/02/23 06:00 Ordered Comprehensive Metabolic Panel AMLAB Lab 07/02/23 06:00 Ordered Comprehensive Metabolic Panel Stat Lab 07/01/23 16:57 Completed Magnesium AMLAB Lab 07/02/23 06:00 Ordered Urinalysis and Microscopic Stat Lab 07/01/23 17:45 Results Urine Culture Stat Micro 07/01/23 17:45 Received ECG Data Tracing #1: I reviewed this ECG and interpreted as documented below: Sinus tachycardia with a ventricular rate of [address] changes concerning for ischemia at this time. Nonspecific ST/T wave abnormality without peaked T waves. Normal QT interval. ECG initial impression date: 07/01/23 ECG initial impression time: 16:59 Critical Care <ABEL Jimenez - Last Filed: 07/01/23 17:52> Critical Care Time Critical Care Time: No
[2023-07-01] MEDS: DEXTROSE 50% 50ML SYRINGE (CRASH CART) 50 ML IVP (16:58)
[2023-07-01] MEDS: CALCIUM GLUC IN NACL, ISO-OSM 1 GM/50 ML BAG IV (16:58)
--- NOTE | 2023-07-01 16:58 | ECG_ITS ---
APPROVED REPORT Exam: Resting ECG HR:107 bpm ECG Measurements Heart Rate 107 AXES OK 153 P 75 QRSd 111 QRS 91 QT 318 T 16 QTc 381 Conclusion SINUS TACHYCARDIA RIGHT ATRIAL ENLARGEMENT [0.3mV P-WAVE] ABNORMAL ECG Electronically signed by : LOUIS LOREDO, 07/01/2023 22:22:43
[2023-07-01] MEDS: INSULIN HUMAN REGULAR 100 UNITS/ML 10ML VIAL 10 UNIT IVP (16:59)
[2023-07-01] MEDS: ALBUTEROL 0.083% 2.5 MG/3 ML NEB 10 MG IH (17:09)
[2023-07-01 17:18] LABS: Chloride 96 mmol/L (98-107); Sodium 129 mmol/L (136-145)
[2023-07-01 17:21] LABS: Alanine Aminotransferase 31 U/L (12-78); Aspartate Amino Transferase 44 U/L (14-36); Blood Urea Nitrogen 60 mg/dl (7-17); Creatinine Clearance Estimated 36 mL/min (50-200); Estimated Glomerular Filt Rate 36 ml/min (>60); GFR (African American) 43 ML/MIN (>60); Potassium 6.2 mmoL/L (3.5-5.1)
[2023-07-01 17:22] LABS: Albumin Level 4.4 g/dl (3.5-5.0); Albumin/Globulin Ratio 1.4 (1.1-1.8); Alkaline Phosphatase 104 U/L (38-126); Anion Gap 13.2 mEq/L (5-15); Bilirubin,Total 0.6 mg/dl (0.2-1.3); Calcium 10.9 mg/dl (8.4-10.2); Carbon Dioxide 26 mmol/L (22.0-30.0); Globulin 3.2 g/dL (1.3-3.2); Glucose 138 mg/dl (74-100); Total Protein,Serum 7.6 g/dl (6.3-8.2)
[2023-07-01] MEDS: 0.9 % SODIUM CHLORIDE 1000ML 1,000 ML 500 ML IV (17:37)
--- NOTE | 2023-07-01 17:40 | ECG_ITS ---
APPROVED REPORT Exam: Resting ECG HR:124 bpm ECG Measurements Heart Rate 124 AXES ME 149 P 80 QRSd 111 QRS 87 QT 417 T 67 QTc 491 Conclusion SINUS TACHYCARDIA POSSIBLE RIGHT VENTRICULAR CONDUCTION DELAY [RSR (QR) IN V1/V2] Electronically signed by : LOUIS LOREDO, 07/01/2023 22:22:24
[2023-07-01 18:01] LABS: Microscopic, Urine URINE MICROSCOPIC (MICROSCOPIC)
[2023-07-01 18:18] LABS: Appearance,Urine CLEAR (Clear); Bilirubin,Urine Negative (Negative); Blood, Urine Negative (Negative); Color,Urine YELLOW (Yellow); Glucose,Urine (UA) 2+ (Negative); Ketones,Urine Negative (Negative); Leukocyte Esterase,Urine 1+ (Negative); Nitrate,Urine Negative (Negative); Protein,Urine Negative (Negative); Urobilinogen,Urine 0.2 EU/dl (0.2)
--- NOTE | 2023-07-01 18:20 | PC.NURSE ---
Called report to Everett SMITH on 2nd floor and answered all questions
--- NOTE | 2023-07-01 18:36 | PC.NURSE ---
med/surg staff at bedside to collect her to 2nd floor.
--- NOTE | 2023-07-01 18:43 | PC.NURSE ---
arrived by w/c from ED
[2023-07-01 19:31] LABS: Bacteria,Urine Trace /lpf
[2023-07-01 22:00] LABS: Chloride 98 mmol/L (98-107); Potassium 5.4 mmoL/L (3.5-5.1); Sodium 131 mmol/L (136-145)
[2023-07-01 22:03] LABS: Anion Gap 12.4 mEq/L (5-15); Blood Urea Nitrogen 63 mg/dl (7-17); Carbon Dioxide 26 mmol/L (22.0-30.0); Creatinine Clearance Estimated 38 mL/min (50-200); Estimated Glomerular Filt Rate 36 ml/min (>60); GFR (African American) 43 ML/MIN (>60)
[2023-07-01 22:04] LABS: Calcium 10.4 mg/dl (8.4-10.2); Glucose 170 mg/dl (74-100)
--- NOTE | 2023-07-01 22:17 | P.HP_ITS ---
History of Present Illness *Admission Date: 07/01/23 *Reason for visit:: abnormal labs *History of present illness: The patient is a 57-year-old female who presents to [facility] emergency department at the request of her medical transport specialist for acute kidney injury and potassium level with threat to life. The patient's potassium in the ER was 6.5 with acute kidney injury creatinine 1.5 with baseline creatinine 0.8. Her past medical history is significant for coronary disease with ischemic cardiomyopathy and implantable ICD. She denied retrosternal chest pain, palpitations, confusion, syncope or falls. She denied nausea, vomiting or diarrhea. She reports compliance with her home medications. In the ED she received therapy for her hyperkalemia and she was admitted. [facility] Medical History (Updated 07/02/23 @ 05:04 by Darci Alvarado MD) PAD (peripheral artery disease) Chronic respiratory failure with hypoxia History of smoking 30 or more pack years Pulmonary emphysema Coronary artery disease Pleural effusion, bilateral ICD (implantable cardioverter-defibrillator) in place Hypertension Hyperlipemia Claudication Left ventricular thrombosis Ischemic cardiomyopathy with implantable cardioverter-defibrillator (ICD) Venous (peripheral) insufficiency HFrEF (heart failure with reduced ejection fraction) Seizure Surgical History (Updated 07/02/23 @ 05:03 by Darci Alvarado MD) H/O cardiac catheterization Family History Other COPD (chronic obstructive pulmonary disease) Cancer Diabetes Heart attack Hypertension Social History (Updated 07/01/23 @ 18:15 by Tequila Murry RN) Smoking Status: Former smoker tobacco type: cigarettes packs per day: 1 alcohol intake: never substance use type: denies use current occupational status: disabled Travel in the last 8 weeks: None caffeine: No Review of Systems Review of Systems Review of systems:: pertinent systems reviewed and negative unless documented below Meds Home Medications and Allergies Home Medications Medication Instructions Recorded Confirmed Type clopidogrel 75 mg tablet 75 mg PO DAILY 05/29/23 06/17/23 History folic acid 1 mg tablet 1 mg PO DAILY 05/29/23 06/17/23 History montelukast 10 mg tablet 10 mg PO PM 05/29/23 06/17/23 History rosuvastatin 10 mg tablet 10 mg PO HS 05/30/23 06/17/23 History aspirin 81 mg chewable tablet 81 mg PO DAILY 30 days #30 tabs 06/05/23 06/17/23 Rx dapagliflozin propanediol 10 mg 10 mg PO DAILY 30 days #30 tabs 06/05/23 06/17/23 Rx tablet (Farxiga) furosemide 40 mg tablet 40 mg PO BIDL 30 days #60 tabs 06/05/23 06/17/23 Rx lisinopril 2.5 mg tablet 2.5 mg PO BID 30 days #60 tabs 06/05/23 06/17/23 Rx magnesium oxide 400 mg (241.3 mg 400 mg PO BID 30 days #60 tabs 06/05/23 06/17/23 Rx magnesium) tablet metoprolol succinate 50 mg 50 mg PO DAILY 30 days #30 tabs 06/05/23 06/17/23 Rx tablet,extended release 24 hr (Toprol XL) mupirocin 2 % topical ointment 0 applic topical TID 5 days #1 g 06/05/23 06/17/23 Rx potassium chloride 20 mEq 40 meq (2 x 20 mEq) PO DAILY 10 06/05/23 06/17/23 Rx tablet,extended days #20 tabs release(part/cryst) (Klor-Con M) spironolactone 25 mg tablet 25 mg PO BID 30 days #60 tabs 06/05/23 06/17/23 Rx omeprazole 40 mg capsule,delayed 40 mg PO DAILY 06/08/23 06/17/23 History release fluticasone fur. 100 mcg-umeclid 1 inh inhalation DAILY 30 days #1 06/17/23 06/17/23 Rx 62.5 mcg-vilant 25 mcg ea inhalat.powder (Trelegy Ellipta) ipratropium 0.5 mg-albuterol 3 mg 3 ml inhalation QID PRN Shortness 06/17/23 06/17/23 Rx (2.5 mg base)/3 mL nebulization Of Breath 30 days #180 mL soln New Prescriptions to Start Prescriptions: Allergies Allergy/AdvReac Type Severity Reaction Status Date / Time No Known Allergies Allergy Verified 06/17/23 13:09 Exam Data for Last 24 hours Vital signs and Labs for Last 24 Hours: Temp Pulse Resp BP Pulse Ox O2 Del Method 98.4 F 110 H 18 104/56 L 92 L Room Air 07/01/23 20:00 07/01/23 20:09 07/01/23 20:00 07/01/23 20:00 07/01/23 20:00 07/01/23 20:00 Laboratory Results - last 24 hr 07/01/23 16:57: Sodium 129 L, Potassium 6.2 H*, Chloride 96 L, Carbon Dioxide 26, Anion Gap 13.2, BUN 60 H, Creatinine 1.50 H D, Estimated Creat Clear 36, Estimated GFR 36 L, Est GFR ( Amer) 43 L D, Glucose 138 H D, Calcium 10.9 H, Total Bilirubin 0.6, AST 44 H, ALT 31, Alkaline Phosphatase 104, Total Protein 7.6 D, Albumin 4.4, Globulin 3.2, Albumin/Globulin Ratio 1.4 07/01/23 17:45: Urine Color Yellow, Urine Appearance Clear, Urine pH 6.0, Ur Specific [place] 1.010, Urine Protein Negative, Urine Glucose (UA) 2+, Urine Ketones Negative, Urine Blood Negative, Urine Nitrate Negative, Urine Bilirubin Negative, Urine Urobilinogen 0.2, Ur Leukocyte Esterase 1+ A, Urine RBC 3-5, Urine WBC 10-20, Ur Squamous Epith Cells 10-20, Urine Bacteria Trace 07/01/23 21:48: Sodium 131 L, Potassium 5.4 H, Chloride 98, Carbon Dioxide 26, Anion Gap 12.4, BUN 63 H, Creatinine 1.50 H, Estimated Creat Clear 38, Estimated GFR 36 L, Est GFR ( Amer) 43 L, Glucose 170 H D, Calcium 10.4 H I & O for Last 24 hours: Intake & Output 06/28/23 06/29/23 06/30/23 07/01/23 23:59 23:59 23:59 23:59 Output Total 0 / 0 Balance 0 / 0 Weight 58.23 kg Constitutional Constitutional: no acute distress, thin and chronically ill appearing *Routine HEENT Exam Head: Present normocephalic Eye: Present EOMI and PERRL ENT: Present mucous membranes dry *Routine Neck Exam Neck: Present supple and full ROM *Routine Respiratory Exam Respiratory: Present rhonchi and normal respiratory effort; Absent respiratory distress *Routine Cardiovascular Exam Cardiovascular: Present RRR; Absent JVD *Routine Abdominal Exam Abdominal: Present soft and normoactive bowel sounds; Absent tenderness *Routine Rectal Exam Rectal:: deferred *Routine Genitalia Exam Genitalia:: deferred *Routine Extremities Exam Extremities: Present full ROM and pulses intact; Absent cyanosis or clubbing *Routine Skin Exam Skin: Present intact; Absent rash *Routine Neurological Exam Neurological: Present alert, oriented X3, moving all extremities, vision grossly intact, hearing grossly intact and normal speech; Absent sensory deficit or motor deficit Routine Psychiatric Exam Psychiatric: Present normal affect, normal thought process, cooperative, good insight and good judgment Assessment and Plan *Assessment and plan (1) Acute nontraumatic kidney injury: Status: Acute Category: Medical Code(s): N17.9 - Acute kidney failure, unspecified (2) Hyperkalemia: Status: Acute Category: Medical Code(s): E87.5 - Hyperkalemia (3) Coronary artery disease: Status: Acute Category: Medical Code(s): I25.10 - Atherosclerotic heart disease of [place] coronary artery without angina pectoris (4) PAD (peripheral artery disease): Status: Acute Category: Medical Code(s): I73.9 - Peripheral vascular disease, unspecified (5) Chronic respiratory failure with hypoxia: Status: Acute Category: Medical Code(s): J96.11 - Chronic respiratory failure with hypoxia Plan This is a 57-year-old female who is chronically administered medications for her ischemic cardiomyopathy with identified recovered ejection fraction who presents with electrolyte abnormalities and acute kidney injury. She underwent cardiac catheterization June 04, 2023 with identified right brachial artery occlusion, right common iliac artery stenosis with stent deployment and noninterventional coronary artery disease. In the ED her sodium was 129, potassium 6.5 and creatinine 1.5. Her BNP was 1130. Previous chest x-ray identified cardiomegaly. Acute kidney injury Baseline creatinine 0.8 IV fluid resuscitation Trending electrolytes and creatinine Holding ROSE inhibitor and loop diuretic therapy Avoiding NSAIDs Hyperkalemia Telemetry monitoring ED ECG reviewed ED therapy for hyperkalemia noted Lokelma therapy Serial potassium levels with identified improvement Avoiding home aldosterone antagonist therapy Ischemic cardiomyopathy s/p AICD Coronary artery disease Peripheral vascular disease Left heart cath 06/04/2023 Right common iliac artery stent 06/04/2023 Telemetry monitoring Antiplatelet therapy P2 Y12 inhibitor therapy Statin therapy Beta-luigi therapy Holding ACC guided therapy with acute kidney injury Accurate I's and O's Routine weights Sodium restricted diet Chronic respiratory failure with hypoxia History of tobacco use (1 pack/day for 30 years) Pulse oximetry monitoring Oxygen therapy to maintain appropriate oxygen saturations Sylwia/Chandrika inhalation therapy ICS therapy VTE prophylaxis: Heparin CODE STATUS: Full code POA/HCS: Kusum-mother
[2023-07-02] VITALS (11 sets, daily range): BP systolic 88–104; BP diastolic 49–86; PULSE 60–101; RESP 16–18; TEMP 36.3–36.7; O2SAT 92–100; BMI 19.1
[2023-07-02] MEDS: HEPARIN SODIUM 5,000 UNIT/ML VIAL 5000 UNIT SQ ×4 (01:09→20:15)
[2023-07-02] MEDS: ACETAMINOPHEN 325MG TAB 1000 MG PO (01:16)
[2023-07-02] MEDS: IPRATROPIUM/ALBUTEROL 3 ML NEB IH ×3 (06:06→18:48)
[2023-07-02] MEDS: BUDESONIDE 0.5MG/2ML NEB 0.5 MG IH ×2 (06:06→18:48)
[2023-07-02 06:40] LABS: Alanine Aminotransferase 25 U/L (12-78); Albumin/Globulin Ratio 1.3 (1.1-1.8); Alkaline Phosphatase 117 U/L (38-126); Anion Gap 15.2 mEq/L (5-15); Aspartate Amino Transferase 39 U/L (14-36); Bilirubin,Total 0.5 mg/dl (0.2-1.3); Blood Urea Nitrogen 59 mg/dl (7-17); Calcium 10.9 mg/dl (8.4-10.2); Carbon Dioxide 25 mmol/L (22.0-30.0); Chloride 97 mmol/L (98-107); Creatinine Clearance Estimated 43 mL/min (50-200); Estimated Glomerular Filt Rate 42 ml/min (>60); GFR (African American) 51 ML/MIN (>60); Glucose 96 mg/dl (74-100); Magnesium 1.9 mg/dl (1.6-2.3); Potassium 5.2 mmoL/L (3.5-5.1); Sodium 132 mmol/L (136-145)
[2023-07-02 06:44] LABS: Basophils # 0.1 K/mm3 (0-0.2); Eosinophils # 0.1 K/mm3 (0.0-0.4); Hematocrit 46.3 % (37.0-47.0); Hemoglobin 14.7 g/dL (12.2-16.2); Mean Corpuscular HGB Conc 31.8 g/dL (31.8-35.4); Mean Corpuscular Hemoglobin 30.6 pg (27.0-31.2); Mean Corpuscular Volume 96.3 fl (81-99); Mean Platelet Volume 9.3 fl (7.4-10.4); Monocytes # 0.7 K/mm3 (0.1-1.0); Monocytes % 5.9 % (1.7-9.3); Neutrophils # 7.2 K/mm3 (1.8-7.8); Neutrophils % 65.2 % (37.0-80.0); Platelet Count 106 K/mm3 (142-424); Red Blood Count 4.81 M/mm3 (4.20-5.40); Red Cell Distribution Width 17.7 % (11.5-17.5); White Blood Count 11.1 K/mm3 (4.8-10.8)
--- NOTE | 2023-07-02 07:30 | EXP.ACUTE.PN ---
Subjective *Date: 07/02/23 *Time: 17:09 Interval history: Patient states she is feeling better this morning. Denies any chest pain or shortness of breath. Stable on room air. Tolerating normal saline. Blood pressure little soft but asymptomatic. Labs showing improvement in kidney function and potassium. Medical Exam Vital signs and Labs for Last 24 Hours: Vital Signs Temp Pulse Pulse Resp BP BP Pulse Ox 07/02/23 06:44 07/02/23 06:07 98 H 07/02/23 06:07 97 H 07/02/23 05:00 07/02/23 04:00 97.4 F L 92 H 17 88/63 L 94 L 07/02/23 04:00 86 07/02/23 02:36 07/02/23 01:00 07/02/23 00:00 97 H 07/02/23 00:00 98.1 F 96 H 16 90/62 L 100 07/01/23 23:00 07/01/23 21:00 07/01/23 20:09 110 H 07/01/23 20:00 07/01/23 20:00 98.4 F 112 H 18 104/56 L 92 L 07/01/23 19:00 07/01/23 18:59 97.8 F 116 H 17 114/67 94 L 07/01/23 18:36 111 H 17 114/67 92 L 07/01/23 18:30 103 H 22 105/67 L 93 L 07/01/23 18:21 98.0 F 119 H 20 97/61 L 07/01/23 18:00 123 H 19 97/61 L 91 L 07/01/23 17:30 109 H 18 100/71 L 99 07/01/23 17:10 113 H 07/01/23 17:10 126 H 07/01/23 17:00 90 18 105/59 L 95 07/01/23 16:26 98.0 F 120 H 14 105/73 L 95 O2 Del Method 07/02/23 06:44 Room Air 07/02/23 06:07 07/02/23 06:07 07/02/23 05:00 Room Air 07/02/23 04:00 Room Air 07/02/23 04:00 07/02/23 02:36 Room Air 07/02/23 01:00 Room Air 07/02/23 00:00 07/02/23 00:00 Room Air 07/01/23 23:00 Room Air 07/01/23 21:00 Room Air 07/01/23 20:09 07/01/23 20:00 Room Air 07/01/23 20:00 Room Air 07/01/23 19:00 Room Air 07/01/23 18:59 Room Air 07/01/23 18:36 Room Air 07/01/23 18:30 Room Air 07/01/23 18:21 Room Air 07/01/23 18:00 Room Air 07/01/23 17:30 Room Air 07/01/23 17:10 07/01/23 17:10 07/01/23 17:00 Room Air 07/01/23 16:26 Room Air Intake and Output 07/01/23 07/01/23 07/02/23 15:59 23:59 07:59 Intake Total 480 / 480 Output Total 0 / 0 0 / 0 Balance 0 / 480 480 / 480 Intake: Intake, Oral Amount 480 / 480 Output: Output, Urine Amount 0 / 0 0 / 0 Other: Number of Unmeasured Voids 1 1 Weight 58.23 kg 58.377 kg Patient Weight 07/02/23 23:59 Weight 58.377 kg Laboratory Results - last 24 hr 07/01/23 16:57: Sodium 129 L, Potassium 6.2 H*, Chloride 96 L, Carbon Dioxide 26, Anion Gap 13.2, BUN 60 H, Creatinine 1.50 H D, Estimated Creat Clear 36, Estimated GFR 36 L, Est GFR ( Amer) 43 L D, Glucose 138 H D, Calcium 10.9 H, Total Bilirubin 0.6, AST 44 H, ALT 31, Alkaline Phosphatase 104, Total Protein 7.6 D, Albumin 4.4, Globulin 3.2, Albumin/Globulin Ratio 1.4 07/01/23 17:45: Urine Color Yellow, Urine Appearance Clear, Urine pH 6.0, Ur Specific [place] 1.010, Urine Protein Negative, Urine Glucose (UA) 2+, Urine Ketones Negative, Urine Blood Negative, Urine Nitrate Negative, Urine Bilirubin Negative, Urine Urobilinogen 0.2, Ur Leukocyte Esterase 1+ A, Urine RBC 3-5, Urine WBC 10-20, Ur Squamous Epith Cells 10-20, Urine Bacteria Trace 07/01/23 21:48: Sodium 131 L, Potassium 5.4 H, Chloride 98, Carbon Dioxide 26, Anion Gap 12.4, BUN 63 H, Creatinine 1.50 H, Estimated Creat Clear 38, Estimated GFR 36 L, Est GFR ( Amer) 43 L, Glucose 170 H D, Calcium 10.4 H 07/02/23 06:02: WBC 11.1 H, RBC 4.81, Hgb 14.7, Hct 46.3, MCV 96.3, MCH 30.6, MCHC 31.8, RDW 17.7 H, Plt Count 106 L, MPV 9.3, Neut % (Auto) 65.2, Lymph % (Auto) 27.0, [place] % (Auto) 5.9, Eos % (Auto) 1.0, Baso % (Auto) 1.0, Neut # (Auto) 7.2, Lymph # (Auto) 3.0, [place] # (Auto) 0.7, Eos # (Auto) 0.1, Baso # (Auto) 0.1, Sodium 132 L, Potassium 5.2 H, Chloride 97 L, Carbon Dioxide 25, Anion Gap 15.2 H, BUN 59 H, Creatinine 1.30 H, Estimated Creat Clear 43, Estimated GFR 42 L, Est GFR ( Amer) 51 L, Glucose 96 D, Calcium 10.9 H, Magnesium 1.9, Total Bilirubin 0.5, AST 39 H, ALT 25, Alkaline Phosphatase 117, Total Protein 7.0, Albumin 4.0, Globulin 3.0, Albumin/Globulin Ratio 1.3 I & O for Labs for Last 24 Hours: Intake & Output 06/29/23 06/30/23 07/01/23 07/02/23 23:59 23:59 23:59 23:59 Intake Total 480 / 480 Output Total 0 / 0 0 / 0 Balance 0 / 480 480 / 480 Weight 58.23 kg 58.377 kg Constitutional: Present no acute distress, average body habitus, chronically ill appearing and cooperative Head: Present atraumatic and normocephalic ENT: Present normal exam Neck: Present normal inspection Respiratory: Present prolonged expiratory phase, wheezes, crackles and normal respiratory effort; Absent rhonchi Cardiac: Present Reg Rate and Rhythm GI: Present soft and normal bowel sounds; Absent distention or tenderness Extremities: Present normal inspection and full ROM; Absent edema Skin: Present intact; Absent erythema Neuro: Present Grossly Intact, alert, awake, oriented x 3 and moves all extremities Assessment and Plan *Assessment and plan (1) Acute nontraumatic kidney injury: Status: Acute Category: Medical Code(s): N17.9 - Acute kidney failure, unspecified (2) Hyperkalemia: Status: Acute Category: Medical Code(s): E87.5 - Hyperkalemia (3) Coronary artery disease: Status: Acute Category: Medical Code(s): I25.10 - Atherosclerotic heart disease of [place] coronary artery without angina pectoris (4) PAD (peripheral artery disease): Status: Acute Category: Medical Code(s): I73.9 - Peripheral vascular disease, unspecified (5) Chronic respiratory failure with hypoxia: Status: Acute Category: Medical Code(s): J96.11 - Chronic respiratory failure with hypoxia Plan This is a 57-year-old female who is chronically administered medications for her ischemic cardiomyopathy with identified recovered ejection fraction who presents with electrolyte abnormalities and acute kidney injury. She underwent cardiac catheterization June 04, 2023 with identified right brachial artery occlusion, right common iliac artery stenosis with stent deployment and noninterventional coronary artery disease. In the ED her sodium was 129, potassium 6.5 and creatinine 1.5. Her BNP was 1130. Previous chest x-ray identified cardiomegaly. Admitted for further management. Responding to therapy. Feeling better today. Seeing improvement in labs. Continues to require inpatient admission, reevaluate for possible discharge tomorrow. Problems addressed as follows: Acute kidney injury Baseline creatinine 0.8, creatinine 1.3 this morning, BUN 59. Showing improvement. Repeat labs this afternoon and BMP. Repeat CBC, CMP, magnesium ordered for the morning. Continue normal saline at 100 cc an hour for 1 more liter, tolerating p.o. fluids Holding ROSE inhibitor and loop diuretic therapy Avoiding NSAIDs Hyperkalemia Continue to monitor on telemetry. No peaking of T waves Potassium 5.2 this morning. Magnesium 1.9. Repeat potassium this afternoon at 2 PM Continue Lokelma, twice daily Avoiding home aldosterone antagonist therapy Ischemic cardiomyopathy s/p AICD Coronary artery disease Peripheral vascular disease Left heart cath 06/04/2023 Right common iliac artery stent 06/04/2023 Telemetry monitoring Antiplatelet therapy P2 Y12 inhibitor therapy Statin therapy Beta-luigi therapy Holding ACC guided therapy with acute kidney injury Accurate I's and O's Routine weights Sodium restricted diet Chronic respiratory failure with hypoxia History of tobacco use (1 pack/day for 30 years) Stable on room air, goal sats greater 90%. Sylwia/Chandrika inhalation therapy ICS therapy VTE prophylaxis: Heparin CODE STATUS: Full code POA/HCS: Kusum-mother
--- NOTE | 2023-07-02 07:35 | HMH.PHAINT1 ---
Pharmacy Intervention Comments: VERIFIED HOME MEDICATION LIST USING LIST FROM [facility]
[2023-07-02] MEDS: METOPROLOL SUCCINATE XL 50MG TABLET 50 MG PO (08:09)
[2023-07-02] MEDS: CLOPIDOGREL 75MG TAB 75 MG PO (08:09)
[2023-07-02] MEDS: ASPIRIN 81MG CHEWABLE TABLET 81 MG PO (08:09)
[2023-07-02] MEDS: ACETAMINOPHEN 325MG TAB 650 MG PO ×3 (08:12→20:14)
--- OUTSIDE RECORDS SUMMARY | 2023-07-02 08:12 | XMS_ITS | Clinical Summary ---
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 Role Phone Fracisco DALTON, Glison Begum Unavailable [phone] [ ] Conditions or Problems Problem Name Problem Code Onset Date Status Entry Date Provider Comment Standard Description Annotate Dermatitis due to drug AND/OR medicine taken internally 75149675 (SNOMED CT) 08/21 Active 08/21 Gilson Yap [...] subsequent encounter Cellulitis/wo und infection, chest wall 70313581 (SNOMED CT) 07/26 Active 07/26 Sherri Yanick Cellulitis of chest wall Ischemic Cardiomyopath y 054477893 (SNOMED CT) 07/26 Active 07/26 Sherri Herndon Generalized ischemic myocardial dysfunction Nicotine dependence, cigarettes 05473035 (SNOMED CT) 07/26 Active 07/26 Sherri Herndon Cigarette smoker COPD 45212274 (SNOMED CT) 07/26 Active 07/26 Sherri Herndon Chronic obstructive pulmonary disease Acute respiratory failure with hypoxia 55259822 (SNOMED CT) 07/26 Active 07/26 Sherri Herndon Acute respiratory failure Hypoalbuminem ia 102013668 (SNOMED CT) 07/26 Active 07/26 Sherri Herndon Hypoalbuminemia Hypocalcemia 1486149 (SNOMED CT) 07/26 Active 07/26 Sherri Herndon Hypocalcemia Thrombocytope delia, secondary D69.59 (ICD-10-CM ) 07/26 Active 07/26 Sherri Herndon Other secondary thrombocytopenia Hyponatremia 93015878 (SNOMED CT) 07/26 Active 07/26 Sherri Herndon Hyponatremia Medications Medication Instructions Start Date Stop Date Generic Name NDC Provider HYDROCODONE-ROSE TAMINOPHEN 5-325 MG TABS 1 Tab, as needed, Oral, every 8 hours hydrocodone-acet aminophen [id number] Faina Cantu CARVEDILOL 12.5 MG TABS 1 Tab, Oral, twice a day carvedilol 48491371169 Faina Cantu CEFDINIR 300 MG CAPS 1 Cap, Oral, every 12 hours cefdinir 06057857666 Faina Cantu DOXYCYCLINE HYCLATE 100 MG CAPS 1 Cap, Oral, twice a day doxycycline hyclate 82601215609 Faina Cantu FLORASTOR 250 MG CAPS 1 Cap, Oral, twice a day saccharomyces boulardii [id number] Faina Cantu FLUTICASONE PROPIONATE 50 MCG/ACT SUSP 2 Dennis, as needed, Nasal, Daily fluticasone propionate [id number] Faina Cantu FOLIC ACID 1 MG TABS 1 Tab, Oral, Daily folic acid 43019357443 Faina Cantu FUROSEMIDE 20 MG TABS 1 Tab, Oral, Daily furosemide 84987537760 Faina Cantu GABAPENTIN 600 MG TABS 1 Tab, Oral, three times a day gabapentin 12148071490 Faina Cantu LISINOPRIL 20 MG TABS 1 Tab, Oral, At Bedtime lisinopril 64547823745 Faina Cantu NICOTINE STEP 1 21 MG/24HR PT24 1 Patch, TransDermal, Daily nicotine [id number] Faina Cantu PANTOPRAZOLE SODIUM 40 MG TBEC 1 Tab, Oral, Daily pantoprazole 91436844847 Faina Cantu POTASSIUM CHLORIDE ER 20 MEQ CR-TABS 1 Tab, Oral, Daily potassium chloride [id number] Faina Cantu TOPIRAMATE 25 MG TABS 1 Tab, Oral, At Bedtime topiramate [id number] Faina Cantu VITAMIN D (ERGOCALCIFEROL ) 1.25 MG (98851 UT) CAPS 1 Cap, Oral, Weekly ergocalciferol (vitamin d2) 69948898402 Faina Cantu Medications Administered No information available. [...] Name Date Entry Date CPT-sl STAT Labs CPT-94432 CMP [id number] CBC with Differential 2021 CPT-57396 C- reactive protein CPT-Cooral Continue oral antibiotics [...]
[2023-07-02] MEDS: 0.9 % SODIUM CHLORIDE 1000ML 1,000 ML 100 ML IV (10:30)
--- NOTE | 2023-07-02 15:30 | PC.NURSE ---
Pt. is aox 4, up adlib, on ra in the 90's, 20g L W with NS@ 100 ML/HR, Cardiac diet and on Heparin for vte, Tylenol given for back pain.
[2023-07-02 16:39] LABS: Chloride 96 mmol/L (98-107); Potassium 5.7 mmoL/L (3.5-5.1); Sodium 129 mmol/L (136-145)
[2023-07-02 16:42] LABS: Anion Gap 8.7 mEq/L (5-15); Blood Urea Nitrogen 55 mg/dl (7-17); Calcium 10.3 mg/dl (8.4-10.2); Carbon Dioxide 30 mmol/L (22.0-30.0); Creatinine Clearance Estimated 51 mL/min (50-200); Estimated Glomerular Filt Rate 51 ml/min (>60); GFR (African American) 62 ML/MIN (>60); Glucose 101 mg/dl (74-100)
[2023-07-02] MEDS: PANTOPRAZOLE 40MG TABLET 40 MG PO (20:14)
[2023-07-02] MEDS: LOKELMA 5GM PACKET 10 GM PO (20:14)
[2023-07-02] MEDS: ATORVASTATIN 40MG TABLET 40 MG PO (20:15)
[2023-07-02 22:17] LABS: Chloride 97 mmol/L (98-107); Potassium 5.2 mmoL/L (3.5-5.1); Sodium 127 mmol/L (136-145)
[2023-07-02 22:20] LABS: Anion Gap 10.2 mEq/L (5-15); Blood Urea Nitrogen 45 mg/dl (7-17); Calcium 10.2 mg/dl (8.4-10.2); Carbon Dioxide 25 mmol/L (22.0-30.0); Creatinine Clearance Estimated 63 mL/min (50-200); Estimated Glomerular Filt Rate 64 ml/min (>60); GFR (African American) 78 ML/MIN (>60); Glucose 83 mg/dl (74-100)
[2023-07-03] VITALS (8 sets, daily range): BP systolic 92–110; BP diastolic 57–69; PULSE 76–105; RESP 16–18; TEMP 36.5–36.6; O2SAT 91–100; BMI 19.4
[2023-07-03] MEDS: IPRATROPIUM/ALBUTEROL 3 ML NEB IH ×3 (00:21→11:28)
[2023-07-03] MEDS: 0.9 % SODIUM CHLORIDE 1000ML 1,000 ML 100 ML IV (02:18)
[2023-07-03] MEDS: ACETAMINOPHEN 325MG TAB 650 MG PO ×3 (03:33→11:52)
--- NOTE | 2023-07-03 05:21 | PC.NURSE ---
Pt is alert and oriented x4 and currently tolerating RA well. Pt has c/o pain in her lower back and coccyx periodically this shit and has been treated per MAR. Pt denies any other pain and remains on fluids. No acute changes or distress noted.
[2023-07-03] MEDS: HEPARIN SODIUM 5,000 UNIT/ML VIAL 5000 UNIT SQ (05:59)
[2023-07-03 06:07] LABS: Basophils % 0.4 % (0.1-2.0); Eosinophils # 0.1 K/mm3 (0.0-0.4); Hematocrit 41.9 % (37.0-47.0); Hemoglobin 13.5 g/dL (12.2-16.2); Lymphocytes # 2.2 K/mm3 (0.7-4.5); Lymphocytes % 31.2 % (10-50); Mean Corpuscular HGB Conc 32.2 g/dL (31.8-35.4); Mean Corpuscular Hemoglobin 30.8 pg (27.0-31.2); Mean Corpuscular Volume 95.7 fl (81-99); Mean Platelet Volume 9.3 fl (7.4-10.4); Monocytes # 0.4 K/mm3 (0.1-1.0); Monocytes % 6.1 % (1.7-9.3); Neutrophils # 4.3 K/mm3 (1.8-7.8); Neutrophils % 60.3 % (37.0-80.0); Platelet Count 98 K/mm3 (142-424); Red Blood Count 4.38 M/mm3 (4.20-5.40); Red Cell Distribution Width 17.7 % (11.5-17.5); White Blood Count 7.1 K/mm3 (4.8-10.8)
[2023-07-03 06:14] LABS: Alanine Aminotransferase 22 U/L (12-78); Albumin Level 3.6 g/dl (3.5-5.0); Albumin/Globulin Ratio 1.3 (1.1-1.8); Alkaline Phosphatase 104 U/L (38-126); Anion Gap 10.9 mEq/L (5-15); Aspartate Amino Transferase 35 U/L (14-36); Bilirubin,Total 0.5 mg/dl (0.2-1.3); Blood Urea Nitrogen 37 mg/dl (7-17); Calcium 10.5 mg/dl (8.4-10.2); Carbon Dioxide 29 mmol/L (22.0-30.0); Chloride 99 mmol/L (98-107); Creatinine Clearance Estimated 64 mL/min (50-200); Estimated Glomerular Filt Rate 64 ml/min (>60); GFR (African American) 78 ML/MIN (>60); Globulin 2.8 g/dL (1.3-3.2); Glucose 84 mg/dl (74-100); Magnesium 1.7 mg/dl (1.6-2.3); Potassium 4.9 mmoL/L (3.5-5.1); Sodium 134 mmol/L (136-145); Total Protein,Serum 6.4 g/dl (6.3-8.2)
[2023-07-03] MEDS: BUDESONIDE 0.5MG/2ML NEB 0.5 MG IH (06:40)
--- NOTE | 2023-07-03 07:15 | P.DS_ITS ---
General Admission date:: 07/01/23 Discharge date: 07/03/23 HPI HPI HPI: The patient is a 57-year-old female who presents to [facility] emergency department at the request of her section supervisor for acute kidney injury and potassium level with threat to life. The patient's potassium in the ER was 6.5 with acute kidney injury creatinine 1.5 with baseline creatinine 0.8. Her past medical history is significant for coronary disease with ischemic cardiomyopathy and implantable ICD. She denied retrosternal chest pain, palpitations, confusion, syncope or falls. She denied nausea, vomiting or diar trev. She reports compliance with her home medications. In the ED she received therapy for her hyperkalemia and she was admitted. Hospital Course Hospital Course Hospital Course: This is a 57-year-old female who is chronically administered medications for her ischemic cardiomyopathy with identified recovered ejection fraction who presents with electrolyte abnormalities and acute kidney injury. She underwent cardiac catheterization June 04, 2023 with identified right brachial artery occlusion, right common iliac artery stenosis with stent deployment and noninterventional coronary artery disease. In the ED her sodium was 129, potassium 6.5 and creatinine 1.5. Her BNP was 1130. Previous chest x-ray identified cardiomegaly. Admitted for further management. Responding to therapy. Potassium normalizing. Given her clinical improvement, stable discharge home. Adjustments made to medications. Problems addressed as follows: Acute kidney injury Presented with elevated creatinine on admission of 1.5, BUN 60.administer gentle hydration and held blood pressure medications along with diuretics. Showed improvement with normalization to creatinine of 0.9 and BUN of 37 on day of discharge. Responded well to gentle hydration. Will continue to hold her stas nopril and Lasix at this time pending follow-up with cardiology and PCP. Okay to resume metoprolol. Would benefit from repeat BMP at follow-up to monitor for stability of kidney function and electrolytes Hyperkalemia Potassium severely elevated at 6.8 on admission. Treated medically with dextrose and insulin, calcium gluconate, albuterol, and Lokelma x 2. Showed improvement in potassium, down to 4.9 on day of discharge. Suspect secondary to dehydration, kidney injury, spironolactone, and supplementation with potassium. Given improvement, will resume spironolactone on this at discharge but discontinue potassium supplementation. Magnesium remain normal at 1.7-1.9. Needs repeat labs at follow-up. No further Lokelma at discharge. Ischemic cardiomyopathy s/p AICD Coronary artery disease Peripheral vascular disease Left heart cath 06/04/2023, Right common iliac artery stent 06/04/2023. Initially monitored on telemetry. Patient did not have any EKG changes from hyperkalemia on admission. Continued home regimen with antiplatelet therapy, statin therapy, beta-luigi. No acute exacerbations. Follow with cardiology as scheduled Chronic respiratory failure with hypoxia History of tobacco use (1 pack/day for 30 years) Stable on room air, goal sats greater 90%.. Continue to inhaler therapy with DuoNebs as needed Exam Data for Last 24 hours Vital signs and Labs for Last 24 Hours: Temp Pulse Resp BP Pulse Ox O2 Del Method 97.8 F 80 18 110/69 95 Room Air 07/03/23 04:00 07/03/23 04:00 07/03/23 04:00 07/03/23 04:00 07/03/23 04:00 07/03/23 07:11 Laboratory Results - last 24 hr 07/02/23 16:15: Sodium 129 L, Potassium 5.7 H, Chloride 96 L, Carbon Dioxide 30, Anion Gap 8.7, BUN 55 H, Creatinine 1.10 H, Estimated Creat Clear 51, Estimated GFR 51 L, Est GFR ( Amer) 62 D, Glucose 101 H, Calcium 10.3 H 07/02/23 22:06: Sodium 127 L, Potassium 5.2 H, Chloride 97 L, Carbon Dioxide 25, Anion Gap 10.2, BUN 45 H, Creatinine 0.90, Estimated Creat Clear 63, Estimated GFR 64, Est GFR ( Amer) 78 D, Glucose 83, Calcium 10.2 07/03/23 05:49: WBC 7.1 D, RBC 4.38, Hgb 13.5, Hct 41.9, MCV 95.7, MCH 30.8, MCHC 32.2, RDW 17.7 H, Plt Count 98 L, MPV 9.3, Neut % (Auto) 60.3, Lymph % (Auto) 31.2, [place] % (Auto) 6.1, Eos % (Auto) 2.0, Baso % (Auto) 0.4, Neut # (Auto) 4.3, Lymph # (Auto) 2.2, [place] # (Auto) 0.4, Eos # (Auto) 0.1, Baso # (Auto) 0.0, Sodium 134 L, Potassium 4.9, Chloride 99, Carbon Dioxide 29, Anion Gap 10.9, BUN 37 H, Creatinine 0.90, Estimated Creat Clear 64, Estimated GFR 64, Est GFR ( Amer) 78, Glucose 84, Calcium 10.5 H, Magnesium 1.7 D, Total Bilirubin 0.5, AST 35, ALT 22, Alkaline Phosphatase 104, Total Protein 6.4, Albumin 3.6, Globulin 2.8, Albumin/Globulin Ratio 1.3 I & O for Last 24 hours: Intake & Output 06/30/23 07/01/23 07/02/23 07/03/23 23:59 23:59 23:59 23:59 Intake Total 1440 / 2300 860 / 860 Output Total 0 / 0 0 / 0 0 / 0 Balance 0 / 480 1440 / 2300 860 / 860 Weight 58.23 kg 58.377 kg 59.557 kg Constitutional Constitutional: no acute distress, average body habitus, chronically ill appe aring and cooperative *Routine HEENT Exam Head: Present normocephalic and cushingoid faces Eye: Present EOMI and PERRL ENT: Present mucous membranes moist *Routine Neck Exam Neck: Present supple; Absent lymphadenopathy Routine Chest/Breast/Axilla Exam Chest wall: Absent tenderness Comments: Pacemaker in right chest *Routine Respiratory Exam Respiratory: Present prolonged expiratory phase, rhonchi, wheezes and crackles *Routine Cardiovascular Exam Cardiovascular: Present RRR *Routine Abdominal Exam Abdominal: Present soft and normoactive bowel sounds; Absent tenderness *Routine Rectal Exam Patient deferred: visual exam *Routine Exam Patient deferred: external exam *Routine Extremities Exam Extremities: Absent cyanosis, clubbing or edema Comments: Thin, sarcopenia *Routine Skin Exam Skin: Present warm; Absent rash Comments: Ecchymoses on arms *Routine Neurological Exam Neurological: Present alert, oriented X3 and moving all extremities; Absent altered mental status Results Data Completed and Pending Labs on day of discharge: Labs from last 24 hours 07/03/23 07/02/23 07/02/23 05:49 22:06 16:15 WBC 7.1 D RBC 4.38 Hgb 13.5 Hct 41.9 MCV 95.7 MCH 30.8 MCHC 32.2 RDW 17.7 H Plt Count 98 L MPV 9.3 Neut % (Auto) 60.3 Lymph % (Auto) 31.2 [place] % (Auto) 6.1 Eos % (Auto) 2.0 Baso % (Auto) 0.4 Neut # (Auto) 4.3 Lymph # (Auto) 2.2 [place] # (Auto) 0.4 Eos # (Auto) 0.1 Baso # (Auto) 0.0 Sodium 134 L 127 L 129 L Potassium 4.9 5.2 H 5.7 H Chloride 99 97 L 96 L Carbon Dioxide 29 25 30 Anion Gap 10.9 10.2 8.7 BUN 37 H 45 H 55 H Creatinine 0.90 0.90 1.10 H Estimated Creat Clear 64 63 51 Estimated GFR 64 64 51 L Est GFR ( Amer) 78 78 D 62 D Glucose 84 83 101 H Calcium 10.5 H 10.2 10.3 H Magnesium 1.7 D Total Bilirubin 0.5 AST 35 ALT 22 Alkaline Phosphatase 104 Total Protein 6.4 Albumin 3.6 Globulin 2.8 Albumin/Globulin Ratio 1.3 DS: Diagnosis Discharge Diagnosis (1) Acute nontraumatic kidney injury: Status: Acute Code(s): N17.9 - Acute kidney failure, unspecified (2) Hyperkalemia: Status: Acute Code(s): E87.5 - Hyperkalemia (3) Coronary artery disease: Status: Acute Code(s): I25.10 - Atherosclerotic heart disease of [place] coronary artery without angina pectoris (4) PAD (peripheral artery disease): Status: Acute Code(s): I73.9 - Peripheral vascular disease, unspecified (5) Chronic respiratory failure with hypoxia: Status: Acute Code(s): J96.11 - Chronic respiratory failure with hypoxia Meds Home Medications and Allergies Home Medications Medication Instructions Recorded Confirmed Type clopidogrel 75 mg tablet 75 mg PO DAILY 05/29/23 07/02/23 History folic acid 1 mg tablet 1 mg PO DAILY 05/29/23 07/02/23 History montelukast 10 mg tablet 10 mg PO PM 05/29/23 07/02/23 History rosuvastatin 10 mg tablet 10 mg PO HS 05/30/23 07/02/23 History aspirin 81 mg chewable tablet 81 mg PO DAILY 30 days #30 tabs 06/05/23 07/02/23 Rx dapagliflozin propanediol 10 mg 10 mg PO DAILY 30 days #30 tabs 06/05/23 07/02/23 Rx tablet (Farxiga) metoprolol succinate 50 mg 50 mg PO DAILY 30 days #30 tabs 06/05/23 07/02/23 Rx tablet,extended release 24 hr (Toprol XL) spironolactone 25 mg tablet 25 mg PO BID 30 days #60 tabs 06/05/23 07/02/23 Rx omeprazole 40 mg capsule,delayed 40 mg PO DAILY 06/08/23 07/02/23 History release fluticasone fur. 100 mcg-umeclid 1 inh inhalation DAILY 30 days #1 06/17/23 07/02/23 Rx 62.5 mcg-vilant 25 mcg ea inhalat.powder (Trelegy Ellipta) ipratropium 0.5 mg-albuterol 3 mg 3 ml inhalation QID PRN Shortness 06/17/23 07/02/23 Rx (2.5 mg base)/3 mL nebulization Of Breath 30 days #180 mL soln magnesium oxide 400 mg (241.3 mg 400 mg PO TID 07/02/23 07/02/23 History magnesium) tablet New Prescriptions to Start Prescriptions: Allergies Allergy/AdvReac Type Severity Reaction Status Date / Time No Known Allergies Allergy Verified 06/17/23 13:09 Discharge Plan Disposition Patient Disposition: Home, Self-Care Condition: Good Discharge Order Discharge Orders: Discharge Order (Routine); Ordered 07/03/23 Ordered By: Pedro Garcia Follow up Plan Follow up with: Felicitas Melara APRN [Primary Care Provider] - 07/10/23 11:30 am Prescriptions/Medication Reconciliation: Continued omeprazole 40 mg capsule,delayed release(DR/EC) 40 mg PO DAILY ipratropium-albuterol 0.5 mg-3 mg(2.5 mg base)/3 mL solution for nebulization 3 ml inhalation QID PRN (Reason: Shortness Of Breath) 30 Days Qty: 180 0RF Trelegy Ellipta 100-62.5-25 mcg blister with device 1 inh inhalation DAILY 30 Days Qty: 1 2RF clopidogrel 75 mg tablet 75 mg PO DAILY Patient Comments: TAKE ONE TABLET BY MOUTH EVERY DAY folic acid 1 mg tablet 1 mg PO DAILY Patient Comments: TAKE ONE TABLET BY MOUTH EVERY DAY montelukast 10 mg tablet 10 mg PO PM Patient Comments: TAKE ONE TABLET BY MOUTH EVERY DAY IN THE EVENING rosuvastatin 10 mg tablet 10 mg PO HS Patient Comments: TAKE ONE TABLET BY MOUTH EVERY EVENING aspirin 81 mg Tablet,Chewable 81 mg PO DAILY 30 Days Qty: 30 0RF dapagliflozin propanediol [Farxiga] 10 mg Tablet 10 mg PO DAILY 30 Days Qty: 30 0RF metoprolol succinate [Toprol XL] 50 mg Tablet Extended Release 24 Hr 50 mg PO DAILY 30 Days Qty: 30 0RF spironolactone 25 mg Tablet 25 mg PO BID 30 Days Qty: 60 0RF magnesium oxide 400 mg (241.3 mg magnesium) tablet 400 mg PO TID Discontinued potassium chloride [Klor-Con M20] 20 mEq Tablet,Er Particles/Crystals 40 meq PO DAILY 10 Days Qty: 20 0RF lisinopril 2.5 mg Tablet 2.5 mg PO BID 30 Days Qty: 60 0RF furosemide 40 mg tablet 40 mg PO BID Problem Reconciliation Problems Reviewed?: Yes Patient Discharge Instructions ACTIVITY: Continue current activity DIET: continue same diet Patient Instructions: DI for Hyperkalemia, DI for Acute Kidney Injury Providers Primary Care Provider: Felicitas Melara Admit Provider: Pedro Garcia Attending Provider: Pedro Garcia
[2023-07-03] MEDS: ASPIRIN 81MG CHEWABLE TABLET 81 MG PO (07:31)
[2023-07-03] MEDS: CLOPIDOGREL 75MG TAB 75 MG PO (07:31)
[2023-07-03] MEDS: METOPROLOL SUCCINATE XL 50MG TABLET 50 MG PO (07:31)
[2023-07-03] MEDS: LOKELMA 5GM PACKET 10 GM PO (07:37)
--- NOTE | 2023-07-03 08:55 | PC.NURSE ---
IV REMOVED AND new one started 20g L FA.
--- NOTE | 2023-07-03 11:45 | HMH.PHAINT1 ---
Pharmacy Intervention Comments: DISCHARGE MEDICATION COUNSELING PROVIDED. DISCUSSED STOPPING LISINOPRIL, POTASSIUM, AND FUROSEMIDE. PATIENT DID ASK HOW TO TAKE THE DUONEBS PRESCRIPTION THAT SHE WAS ON PRIOR TO ADMISSION THAT WAS WRITTEN FOR HER AT DISCHARGE FROM [facility]. I EXPLAINED TO USE ONE AMPULE FOUR TIMES DAILY NEEDED FOR SHORTNESS OF BREATH. I EXPLAINED THAT SOMETIMES THEY COME INDIVIDUALLY PACKAGED OR IN A FOIL PACK WITH MULTIPLES, USUALLY 5, AND TO ONLY USE ONE AMPULE AT A TIME. NO FURTHER QUESTIONS AT THIS TIME.
--- NOTE | 2023-07-07 13:59 | CARE MANAGER ---
Contacted patient related to hospital discharge. She states she is doing better. She had no new medications but did stop taking the ones she was instructed to stop taking. She has a follow up appointment tomorrow and denies questions or concerns. SARAH Rea
== END 2023-07-03 12:10 | disposition home or self-care (01) | DRG 683 ==
LOC: ER 17:49 → 2ND 18:06
PROVIDERS: Admitting Provider Internal Medicine Adolescent Medicine; Emergency Provider Emergency Medicine; PCP Nurse Practitioner Family; Visit Provider Internal Medicine Adolescent Medicine
DX: N17.9 Acute kidney failure, unspecified (principal); I50.32 Chronic diastolic (congestive) heart failure; J96.10 Chronic respiratory failure, unspecified whether with hypoxia or hypercapnia; J96.11 Chronic respiratory failure with hypoxia; E87.5 Hyperkalemia; I25.10 Atherosclerotic heart disease of native coronary artery without angina pectoris; I73.9 Peripheral vascular disease, unspecified; E78.5 Hyperlipidemia, unspecified; I25.5 Ischemic cardiomyopathy; I87.2 Venous insufficiency (chronic) (peripheral); I11.0 Hypertensive heart disease with heart failure; J43.9 Emphysema, unspecified; Z87.891 Personal history of nicotine dependence
CPT/HCPCS: 36415; 80048; 80053; 81001; 83735; 83880; 85025; 87086; 93005; 94640; 94761; 94762; 99285

== ENCOUNTER 2023-07-08 17:06 | Outpatient (CLI) | payer MEDICARE, SELFPAY ==
[2023-07-08 17:39] LABS: Basophils % 0.2 % (0.1-2.0); Eosinophils # 0.1 K/mm3 (0.0-0.4); Eosinophils % 1.5 % (0.1-12.0); Hemoglobin 15.5 g/dL (12.2-16.2); Lymphocytes # 2.7 K/mm3 (0.7-4.5); Lymphocytes % 29.2 % (10-50); Mean Corpuscular HGB Conc 31.1 g/dL (31.8-35.4); Mean Corpuscular Volume 99.7 fl (81-99); Mean Platelet Volume 8.6 fl (7.4-10.4); Monocytes # 0.5 K/mm3 (0.1-1.0); Monocytes % 5.3 % (1.7-9.3); Neutrophils # 5.9 K/mm3 (1.8-7.8); Neutrophils % 63.8 % (37.0-80.0); Platelet Count 150 K/mm3 (142-424); Red Blood Count 5.01 M/mm3 (4.20-5.40); Red Cell Distribution Width 17.7 % (11.5-17.5); White Blood Count 9.2 K/mm3 (4.8-10.8)
[2023-07-08 18:21] LABS: Alanine Aminotransferase 29 U/L (12-78); Albumin Level 4.3 g/dl (3.5-5.0); Albumin/Globulin Ratio 1.5 (1.1-1.8); Alkaline Phosphatase 129 U/L (38-126); Anion Gap 13.8 mEq/L (5-15); Aspartate Amino Transferase 38 U/L (14-36); Bilirubin,Total 0.5 mg/dl (0.2-1.3); Blood Urea Nitrogen 14 mg/dl (7-17); Carbon Dioxide 27 mmol/L (22.0-30.0); Chloride 96 mmol/L (98-107); Estimated Glomerular Filt Rate 74 ml/min (>60); GFR (African American) 89 ML/MIN (>60); Globulin 2.9 g/dL (1.3-3.2); Glucose 78 mg/dl (74-100); Potassium 4.8 mmoL/L (3.5-5.1); Sodium 132 mmol/L (136-145); Total Protein,Serum 7.2 g/dl (6.3-8.2)
[2023-07-10 17:02] LABS: Peripheral Smear Review Scanned Result
== END 2023-07-08 23:59 | disposition home or self-care (01) ==
LOC: LAB.DROPOF 17:07
PROVIDERS: PCP Nurse Practitioner Family; Visit Provider Nurse Practitioner Family
DX: D69.6 Thrombocytopenia, unspecified (principal); E87.5 Hyperkalemia; I73.9 Peripheral vascular disease, unspecified
CPT/HCPCS: 80053; 85025

== ENCOUNTER 2023-07-14 12:56 | Outpatient (CLI) | payer MEDICARE, SELFPAY ==
[2023-07-14 19:32] LABS: Hemoglobin A1C 5.7 % (4.0-6.0)
[2023-07-14 19:51] LABS: Alanine Aminotransferase 20 U/L (12-78); Albumin Level 4.3 g/dl (3.5-5.0); Albumin/Globulin Ratio 1.5 (1.1-1.8); Alkaline Phosphatase 133 U/L (38-126); Anion Gap 14.8 mEq/L (5-15); Aspartate Amino Transferase 37 U/L (14-36); Bilirubin,Total 0.5 mg/dl (0.2-1.3); Blood Urea Nitrogen 13 mg/dl (7-17); Carbon Dioxide 27 mmol/L (22.0-30.0); Chloride 94 mmol/L (98-107); Estimated Glomerular Filt Rate 74 ml/min (>60); GFR (African American) 89 ML/MIN (>60); Globulin 2.9 g/dL (1.3-3.2); Glucose 71 mg/dl (74-100); Potassium 4.8 mmoL/L (3.5-5.1); Sodium 131 mmol/L (136-145); Total Protein,Serum 7.2 g/dl (6.3-8.2)
[2023-07-14 20:01] LABS: Intact Parathyroid Hormone 152.4 pg/mL (7.5-53.5)
[2023-07-14 20:06] LABS: 25-OH Vitamin D, Total 22.2 ng/mL (30-100)
[2023-07-14 20:19] LABS: Thyroid Stimulating Hormone 0.18 uIU/mL (0.465-4.68)
[2023-07-16 16:20] LABS: Calcium, Ionized 5.4 mg/dL (4.5-5.6)
== END 2023-07-14 23:59 | disposition home or self-care (01) ==
LOC: LAB.DROPOF 07-15 12:57
PROVIDERS: PCP Nurse Practitioner Family; Visit Provider Nurse Practitioner Family
DX: E16.2 Hypoglycemia, unspecified (principal); E87.5 Hyperkalemia; E83.52 Hypercalcemia; E01.0 Iodine-deficiency related diffuse (endemic) goiter; Z68.20 Body mass index [BMI] 20.0-20.9, adult
CPT/HCPCS: 80053; 82306; 82330; 83036; 83970; 84443

== ENCOUNTER 2023-07-21 14:20 | Outpatient (CLI) | payer MEDICARE, SELFPAY ==
--- NOTE | 2023-07-21 14:21 | US_ITS ---
FINAL REPORT CLINICAL HISTORY: thyromegaly COMPARISON: None FINDINGS: Sonographic images of the thyroid gland were obtained. The right thyroid lobe measures 4.5 cm. in length. The left thyroid lobe measures 4.0 cm. in length. The thyroid isthmus measures 0.4 cm. The echogenicity is normal. Multiple nodules are noted in the thyroid. Several are chosen for measurement. Largest on the right, 10 x 7 x 6 mm cystic solid isoechoic TR 3. Largest on the left, 9 x 6 x 5 mm spongiform TR 1. IMPRESSION: Bilateral thyroid nodules as above. No follow-up recommended per TI-RADS criteria. Reviewed, Interpreted and Dictated by Saurabh Oliver III, MD Transcribed by Katy Parsons Authenticated and [facility]
== END 2023-07-21 23:59 | disposition home or self-care (01) ==
LOC: RAD 14:21
PROVIDERS: PCP Nurse Practitioner Family; Visit Provider Nurse Practitioner Family
DX: E01.0 Iodine-deficiency related diffuse (endemic) goiter (principal)
CPT/HCPCS: 76536

== ENCOUNTER 2023-07-31 08:02 | Outpatient (CLI) | payer MEDICARE, SELFPAY ==
--- NOTE | 2023-07-31 08:02 | NM_ITS ---
FINAL REPORT CLINICAL HISTORY: Elevated parathyroid hormone FINDINGS: 20.8 mci Technetium Sestamibi was administered. Planar imaging was performed early and two-hour delayed of the neck and upper thorax. Early imaging shows physiologic uptake within the upper neck involving the salivary glands and lower neck involving the thyroid gland. On delayed imaging there is no abnormal retained activity in the lower neck or mediastinum to localize parathyroid adenoma. IMPRESSION: No scintigraphic evidence of parathyroid adenoma. Reviewed, Interpreted and Dictated by Dieter Mustafa MD Transcribed by Kaitlin Parrish Authenticated and [facility]
[2023-07-31] MEDS: SODIUM CHLORIDE 0.9% 10ML SYR (RAD ONLY) 10 ML IV (08:30)
[2023-07-31] MEDS: ISO TC99M (SESTAMIBI);1 DOSE VIAL IV (08:58)
== END 2023-07-31 23:59 | disposition home or self-care (01) ==
LOC: RAD 08:02
PROVIDERS: PCP Nurse Practitioner Family; Visit Provider Nurse Practitioner Family
DX: R79.89 Other specified abnormal findings of blood chemistry (principal)
CPT/HCPCS: 78070; A9500

== ENCOUNTER 2023-08-18 09:52 | Outpatient (CLI) | payer MEDICARE, SELFPAY ==
[2023-08-18 11:00] VITALS: PULSE 101; PULSE 97
[2023-08-18] MEDS: ALBUTEROL 0.083% 2.5 MG/3 ML NEB IH (11:00)
== END 2023-08-18 23:59 | disposition home or self-care (01) ==
LOC: RT 09:55
PROVIDERS: PCP Nurse Practitioner Family; Visit Provider Internal Medicine Pulmonary Disease
DX: R06.09 Other forms of dyspnea (principal)
CPT/HCPCS: 94060; 94618; 94640; 94726; 94729; J7613

== ENCOUNTER 2023-09-17 13:43 | Outpatient (RCR) | payer MEDICARE, SELFPAY | END 2023-10-21 15:00 | disposition home or self-care (01) | LOC: PT 13:43 | PROVIDERS: Visit Provider Internal Medicine | DX: J44.9 Chronic obstructive pulmonary disease, unspecified (principal); Z87.891 Personal history of nicotine dependence | CPT/HCPCS: 94626 ==

== ENCOUNTER 2023-09-22 15:23 | Outpatient (CLI) | payer MEDICARE, SELFPAY ==
[2023-09-22 19:22] LABS: Intact Parathyroid Hormone 173.9 pg/mL (7.5-53.5)
[2023-09-22 19:41] LABS: Thyroid Stimulating Hormone 0.84 uIU/mL (0.465-4.68)
[2023-09-24 08:23] LABS: Thyroid Peroxidase Antibodies <9 IU/mL (0-34)
[2023-09-24 13:41] LABS: Calcium, Ionized 5.5 mg/dL (4.5-5.6)
== END 2023-09-22 23:59 | disposition home or self-care (01) ==
LOC: LAB.DROPOF 09-23 13:19
PROVIDERS: PCP Nurse Practitioner Family; Visit Provider Nurse Practitioner Family
DX: R79.89 Other specified abnormal findings of blood chemistry (principal); E01.0 Iodine-deficiency related diffuse (endemic) goiter
CPT/HCPCS: 82330; 83970; 84443; 84481; 86376; 86800

== ENCOUNTER 2023-10-06 11:27 | Outpatient (CLI) | payer MEDICARE, SELFPAY ==
--- NOTE | 2023-10-06 11:32 | US_ITS ---
FINAL REPORT CLINICAL HISTORY: Pain in bilateral lower extremities with hair loss,HLD COMPARISON: None FINDINGS: ANKLE-BRACHIAL PRESSURE INDICES Pressure indices are as follows: RIGHT LOWER EXTREMITY: Ankle-brachial pressure index: 0.70 Comments: Moderately depressed LEFT LOWER EXTREMITY: Ankle-brachial pressure index: 0.99 Comments: Normal CONCLUSION: Moderately obstructed flow in the right lower extremity, with normal flow in the left lower extremity. Reviewed, Interpreted and Dictated by Clark Diggs MD Transcribed by Nancy Robb Authenticated and [facility]
== END 2023-10-06 23:59 | disposition home or self-care (01) ==
LOC: RT 11:28
PROVIDERS: PCP Nurse Practitioner Family; Visit Provider Nurse Practitioner Family
DX: I73.9 Peripheral vascular disease, unspecified (principal)
CPT/HCPCS: 93923

== ENCOUNTER 2023-10-28 14:45 | Outpatient (CLI) | payer MEDICARE, SELFPAY ==
[2023-10-28 17:31] LABS: Basophils # 0.1 K/mm3 (0-0.2); Basophils % 1.3 % (0.1-2.0); Eosinophils # 0.1 K/mm3 (0.0-0.4); Eosinophils % 1.5 % (0.1-12.0); Lymphocytes # 2.8 K/mm3 (0.7-4.5); Lymphocytes % 32.8 % (10-50); Mean Corpuscular HGB Conc 31.3 g/dL (31.8-35.4); Mean Corpuscular Hemoglobin 32.7 pg (27.0-31.2); Mean Corpuscular Volume 104.5 fl (81-99); Mean Platelet Volume 9.1 fl (7.4-10.4); Monocytes # 0.8 K/mm3 (0.1-1.0); Monocytes % 9.2 % (1.7-9.3); Neutrophils # 4.8 K/mm3 (1.8-7.8); Neutrophils % 55.2 % (37.0-80.0); Platelet Count 121 K/mm3 (142-424); Red Blood Count 5.54 M/mm3 (4.20-5.40); Red Cell Distribution Width 14.1 % (11.5-17.5); White Blood Count 8.7 K/mm3 (4.8-10.8)
[2023-10-28 17:45] LABS: Hemoglobin A1C 5.8 % (4.0-6.0)
[2023-10-28 18:11] LABS: Hematocrit 57.9 % (37.0-47.0); Hemoglobin 18.1 g/dL (12.2-16.2)
[2023-10-28 18:34] LABS: Alanine Aminotransferase 18 U/L (12-78); Albumin Level 4.3 g/dl (3.5-5.0); Albumin/Globulin Ratio 1.3 (1.1-1.8); Alkaline Phosphatase 116 U/L (38-126); Aspartate Amino Transferase 37 U/L (14-36); Bilirubin,Total 0.5 mg/dl (0.2-1.3); Blood Urea Nitrogen 18 mg/dl (7-17); Calcium 10.7 mg/dl (8.4-10.2); Carbon Dioxide 29 mmol/L (22.0-30.0); Chloride 99 mmol/L (98-107); Estimated Glomerular Filt Rate 73 ml/min (>60); GFR (African American) 89 ML/MIN (>60); Globulin 3.2 g/dL (1.3-3.2); Glucose 65 mg/dl (74-100); Sodium 135 mmol/L (136-145); Total Protein,Serum 7.5 g/dl (6.3-8.2)
[2023-10-28 19:03] LABS: Anion Gap 12.3 mEq/L (5-15); Potassium 5.3 mmoL/L (3.5-5.1)
[2023-10-28 19:39] LABS: Thyroid Stimulating Hormone 0.71 uIU/mL (0.465-4.68)
== END 2023-10-28 23:59 | disposition home or self-care (01) ==
LOC: LAB.DROPOF 10-29 11:09
PROVIDERS: PCP Nurse Practitioner Family; Visit Provider Nurse Practitioner Family
DX: I10 Essential (primary) hypertension (principal); E78.2 Mixed hyperlipidemia; R73.03 Prediabetes; R23.3 Spontaneous ecchymoses
CPT/HCPCS: 80053; 83036; 84443; 85025

== ENCOUNTER 2023-11-13 12:36 | Outpatient (CLI) | payer MEDICARE, SELFPAY ==
--- NOTE | 2023-11-13 | CA_ITS ---
APPROVED REPORT EXAM: Limited 2D Echocardiogram with contrast Heel Sewer: RT Kely(R) Ht: 5 ft 6 in Wt: 136lbs BSA: 1.70 BP: 120/80 mmHg Indications: HFrEF, CAD, COPD, HTN, hyperlipidemia, ischemic CM, PAD, CABG x 3. Ordered as definity echo. Echo Enhancing Agent Indication: Endocardial border delineation Agent(s) / Amount(s) Used: Definity 2 cc 2D Dimensions EF AP4 49.30 % GL Strain -13.4 % M-Mode Dimensions RVDd 3.18 cm (0.9-2.6) LVDd 4.39 cm (3.5-5.7) LVDs 3.43 cm (3.5-5.7) IVSd 0.96 cm (0.6-1.1) PWd 1.00 cm (0.6-1.1) EF (Teich) 44.40% FS 21.90% EDV (Teich) 87.20 mL ESV (Teich) 48.50 mL Other Information Study Quality: Technically Difficult Conclusion This is a limited TTE to evaluate for LVEF and wall motion. Limited windows were obtained. Technically difficult study. The LV is normal in size. There is increased LV wall thickness. There is mild reduction in global LV systolic function. The distal and apical LV sorto are severely hypokinetic. LVEF is approximately 40-45%. Administration of ultrasound enhancing agent demonstrates no evidence of LV thrombus. Electronically signed by : Clarita Sanz MD 11/13/2023 16:58:32
--- NOTE | 2023-11-13 13:10 | CT_ITS ---
FINAL REPORT TECHNIQUE: Post contrast axial imaging of the aorta and bilateral lower extremity was obtained and reviewed. This study was performed with techniques to keep radiation doses as low as reasonably achievable (ALARA). Individualized dose reduction techniques using automated exposure control or adjustment of mA and/or kV according to the patient''s size were employed. CLINICAL HISTORY: vas disease FINDINGS: The lung bases are clear. The liver pancreas is homogeneous. The gallbladder is contracted. There are calcified granulomas within the spleen. The pancreas appears unremarkable. There is bilateral adrenal hyperplasia. The kidneys appear unremarkable. There is a retroaortic left renal vein. The abdominal aorta is normal in caliber. The uterus is present and lies eccentric to the right. The urinary bladder is incompletely distended. The appendix is not identified. Surgical clips are seen in the right inguinal region. The celiac axis and SMA are patent. There is a vascular stent within the distal abdominal aorta. There is a right common iliac artery stent. Right lower extremity: The common femoral artery is patent continuous with a patent superficial femoral artery. The popliteal and tibial vessels are patent. There is no evidence of stenosis. Left lower extremity: The common femoral artery is patent continuous with a patent superficial femoral artery. The popliteal and tibial vessels are patent. There is no evidence of stenosis. IMPRESSION: Previously placed abdominal aortic and right common femoral artery stents. Postoperative changes in the right inguinal region. No evidence of infra inguinal arterial occlusive disease. Reviewed, Interpreted and Dictated by Clark Diggs MD Transcribed by Lola West Authenticated and [facility]
[2023-11-13] MEDS: SODIUM CHLORIDE 0.9% 10ML SYR (RAD ONLY) 10 ML IV (14:16)
[2023-11-13] MEDS: IOPAMIDOL-370 (76%);100ML BOTTLE 120 ML IV (14:16)
[2023-11-13] MEDS: 0.9 % SODIUM CHLORIDE 50 ML VIAL IV (14:16)
[2023-11-13] MEDS: DEFINITY US ECHO CONTRAST 2ML INJ 2 MG IV (14:39)
== END 2023-11-13 23:59 | disposition home or self-care (01) ==
PROVIDERS: PCP Nurse Practitioner Family; Visit Provider Nurse Practitioner Family
DX: I25.10 Atherosclerotic heart disease of native coronary artery without angina pectoris (principal); R06.00 Dyspnea, unspecified; I50.20 Unspecified systolic (congestive) heart failure; I73.9 Peripheral vascular disease, unspecified
CPT/HCPCS: 75635; 93306; 93308; Q9957; Q9967

== ENCOUNTER 2023-11-18 14:47 | Outpatient (CLI) | payer MEDICARE, SELFPAY ==
--- NOTE | 2023-11-18 14:50 | CT_ITS ---
FINAL REPORT TECHNIQUE: Axial CT images of the chest were obtained without contrast. Low-dose protocol was utilized. This study was performed with techniques to keep radiation doses as low as reasonably achievable (ALARA). Individualized dose reduction techniques using automated exposure control or adjustment of mA and/or kV according to the patient's size were employed. CLINICAL HISTORY: lung cancer screening former smoker, quit smoking less than a year ago. smoked 1 ppd x 15 years COMPARISON: CTA chest 05/29/2023 FINDINGS: CT CHEST WITHOUT, LOW DOSE SCREENING CT Di Vol: 2.90 mGy DLP: 103.94 mGy*cm There are small mediastinal nodes. No axillary mass is identified. The heart size is normal. A right subclavian pacer is present. There is no pleural or pericardial effusion. The lung windows show a stable 4 mm pleural-based nodule in the left lower lobe best seen on series 3 image 56. There are several calcified granulomas. Limited images of the upper abdomen demonstrate no acute findings. IMPRESSION: Stable left lower lobe nodule. LR Category 2: 12 month follow-up low-dose chest CT is recommended per Fleischner criteria. Reviewed, Interpreted and Dictated by Saurabh Oliver III, MD Transcribed by Katy Parsons Authenticated and [facility]
== END 2023-11-18 23:59 | disposition home or self-care (01) ==
LOC: RAD 14:47
PROVIDERS: PCP Nurse Practitioner Family; Visit Provider Internal Medicine Pulmonary Disease
DX: F17.210 Nicotine dependence, cigarettes, uncomplicated (principal)
CPT/HCPCS: 71271

== ENCOUNTER 2023-11-20 10:31 | Outpatient (CLI) | payer MEDICARE, SELFPAY ==
[2023-11-20 11:02] LABS: Basophils # 0.1 K/mm3 (0-0.2); Basophils % 1.5 % (0.1-2.0); Eosinophils # 0.1 K/mm3 (0.0-0.4); Eosinophils % 1.1 % (0.1-12.0); Hematocrit 55.6 % (37.0-47.0); Lymphocytes # 2.1 K/mm3 (0.7-4.5); Lymphocytes % 29.2 % (10-50); Mean Corpuscular HGB Conc 32.6 g/dL (31.8-35.4); Mean Corpuscular Hemoglobin 32.1 pg (27.0-31.2); Mean Corpuscular Volume 98.3 fl (81-99); Mean Platelet Volume 8.3 fl (7.4-10.4); Monocytes # 0.6 K/mm3 (0.1-1.0); Neutrophils # 4.3 K/mm3 (1.8-7.8); Neutrophils % 60.1 % (37.0-80.0); Platelet Count 108 K/mm3 (142-424); Red Blood Count 5.65 M/mm3 (4.20-5.40); Red Cell Distribution Width 14.1 % (11.5-17.5); White Blood Count 7.1 K/mm3 (4.8-10.8)
[2023-11-20 11:16] LABS: Creatinine,Urine Random 33 mg/dL (Not Estab.)
[2023-11-20 11:17] LABS: Collection Time,Urine 24 hours; Creatinine 24 Hour,Urine 446 mg/24hr (630-2500); Total Volume,Urine 1350 mL (600-1600)
[2023-11-20 12:22] LABS: Hemoglobin 17.9 g/dL (12.2-16.2)
[2023-11-21 08:51] LABS: Calcium, Urine 1.3 mg/dL (Not Estab.); Calcium, Urine 24hr 18 mg/24 hr (0-320)
== END 2023-11-20 23:59 | disposition home or self-care (01) ==
LOC: RAD 10:33 → LAB 10:35
PROVIDERS: PCP Nurse Practitioner Family; Visit Provider Internal Medicine
DX: D69.6 Thrombocytopenia, unspecified (principal); R79.89 Other specified abnormal findings of blood chemistry
CPT/HCPCS: 36415; 82340; 82570; 85025

== ENCOUNTER 2023-11-30 09:20 | Outpatient (CLI) | payer MEDICARE, SELFPAY ==
--- NOTE | 2023-11-30 09:27 | XR_ITS ---
FINAL REPORT CLINICAL HISTORY: SCREENING FINDINGS: Using L1-4, the bone mineral density of the spine is 0.862 g/cm2, corresponding to T-score of -1.7. Using the left hip, the total bone mineral density is 0.593 g/cm2, corresponding to a T-score of -2.9. Using the right hip, the bone mineral density of the femoral neck is 0.652 g/cm2, corresponding to a T-score of -1.8. IMPRESSION: Osteopenic bone mineral density in the lumbar spine and right femoral neck. Osteoporotic bone mineral density of the left total hip. NOTE: T-score: Standard deviation compared with peak bone mass of young adult mean. *Following the recommendations of the International Society of Bone densitometry, classification of hip BMD is based on the lower of two T-scores; total hip or femoral neck. Reviewed, Interpreted and Dictated by Clark Diggs MD Transcribed by Martha Rivera Authenticated and [facility]
== END 2023-11-30 23:59 | disposition home or self-care (01) ==
LOC: RAD 09:21
PROVIDERS: PCP Nurse Practitioner Family; Visit Provider Internal Medicine
DX: M85.89 Other specified disorders of bone density and structure, multiple sites (principal); R79.89 Other specified abnormal findings of blood chemistry
CPT/HCPCS: 77080

== ENCOUNTER 2023-12-09 10:25 | Outpatient (CLI) | payer MEDICARE, SELFPAY ==
[2023-12-09 14:09] LABS: Creatinine,Urine Random 20 mg/dL (Not Estab.)
[2023-12-09 14:32] LABS: Collection Time,Urine 24 hours; Creatinine 24 Hour,Urine 624 mg/24hr (630-2500); Total Volume,Urine 3120 mL (600-1600)
[2023-12-10 11:15] LABS: Calcium, Urine 1.2 mg/dL (Not Estab.); Calcium, Urine 24hr 36 mg/24 hr (0-320)
== END 2023-12-09 23:59 | disposition home or self-care (01) ==
LOC: LAB 10:27
PROVIDERS: PCP Nurse Practitioner Family; Visit Provider Internal Medicine
DX: R79.89 Other specified abnormal findings of blood chemistry (principal)
CPT/HCPCS: 82340; 82570

== ENCOUNTER 2023-12-15 16:55 | Outpatient (CLI) | payer MEDICARE, SELFPAY ==
[2023-12-15 17:29] LABS: Intact Parathyroid Hormone 160.3 pg/mL (7.5-53.5)
[2023-12-15 17:31] LABS: 25-OH Vitamin D, Total 32.3 ng/mL (30-100)
[2023-12-16 14:49] LABS: Calcium, Ionized 5.6 mg/dL (4.5-5.6)
--- NOTE | 2023-12-30 10:31 | PC.NURSE ---
Have spoke with the patient in regards to the overnight pulse ox and she wants to wait til the new year.
== END 2023-12-15 23:59 | disposition home or self-care (01) ==
LOC: LAB.DROPOF 16:56
PROVIDERS: PCP Nurse Practitioner Family; Visit Provider Nurse Practitioner Family
DX: E83.52 Hypercalcemia (principal); M81.0 Age-related osteoporosis without current pathological fracture; Z79.899 Other long term (current) drug therapy
CPT/HCPCS: 82306; 82330; 83970

== ENCOUNTER 2024-01-11 10:44 | Outpatient (POV) | payer MEDICARE, SELFPAY ==
[2024-01-11 11:00] VITALS: BP 148/92; PULSE 78; RESP 18; O2SAT 93; BMI 21.9
--- NOTE | 2024-01-11 11:13 | A.OFFVIS_ITS ---
HPI Data of Consult Patient: new to practice Consult date: 01/11/24 Requesting Physician: Patti Martins APRN Primary Care Provider: Felicitas Melara APRN Consult Narrative Reason for consult: Low back pain, left leg numbness tingling History of present illness: Ms. Chandler is a 58 year old female who presents today as a new patient. She is a referral from [facility]. Today she rates her pain a 9 out of 10. Patient states her pain is all in her low back and does have a significant history of osteoporosis as well as CHF and renal failure. Patient states this pain has been going on for years and progressively worsened. Patient states the pain does go into her left lower extremity with numbness and burning to her foot along the left side. She does describe the pain as a constant numbness that does burn and feels like a toothache sensation. She does state that a lot of it was aggravated with her fall last year. Patient states that she cannot walk for very long without having to stop and take multiple breaks. Patient does state that when she is done a lot of activity she even gets sick to her stomach. She does feel like her left leg is weaker than the right. Patient denies any bowel or bladder problems. Patient does state the pain is worse with increased activity such as walking or lifting. Patient states the pain does interfere with her ability perform activities of daily living such as cooking or cleaning or even simple laundry. Patient denies any prior surgery history and does not recall any injection history in the past for her back pain. Patient has tried oral medications including Tylenol along with heat and ice and topicals with minimal relief. Patient did do physical therapy earlier this year with no additional relief. Patient is currently managed with tramadol from her PCP. Her Eran has been reviewed and is appropriate. CC: Patti Martins APRN [facility] Disclaimer: The information contained in this section may have been updated after the patient was seen, as this information can be updated by other users. Medical History Chronic respiratory failure with hypoxia Claudication COPD mixed type Coronary artery disease Encounter for screening for malignant neoplasm of lung HFrEF (heart failure with reduced ejection fraction) History of smoking 30 or more pack years Hyperlipemia Hypertension ICD (implantable cardioverter-defibrillator) in place Ischemic cardiomyopathy with implantable cardioverter-defibrillator (ICD) Left ventricular thrombosis Nocturnal hypoxia PAD (peripheral artery disease) Pleural effusion, bilateral Pulmonary emphysema Seizure Venous (peripheral) insufficiency BLE Surgical History H/O cardiac catheterization Family History Other COPD (chronic obstructive pulmonary disease) Cancer Diabetes Heart attack Hypertension Social History (Updated 01/04/24 @ 13:07 by Ifeoma Platt CMA) Smoking Status: Former smoker tobacco type: cigarettes packs per day: 1 alcohol intake: never substance use type: denies use current occupational status: other caffeine: No Review of Systems Review of Systems Review of systems:: pertinent systems reviewed and negative unless documented below Review of systems (narrative): Review of Systems: General: No recent weight changes, no fever, no sleep disturbances Respiratory: No cough, no shortness of air, no recurring pulmonary infections Cardiovascular/peripheral vascular: No chest pain, no palpitations, no edema, no shortness of breath Gastrointestinal: No new onset incontinence, normal bowel movements reported Genitourinary: No new onset incontinence Musculoskeletal: Low back pain, left leg numbness tingling Psychiatric: [Normal mood/affect] Neurological: [Denies weakness in extremities], [denies balance issues] Meds Home Medications and Allergies Home Medications ?Medication ?Instructions ?Recorded ?Confirmed ?Type folic acid 1 mg tablet 1 mg PO DAILY 05/29/23 01/11/24 History montelukast 10 mg tablet 10 mg PO PM 05/29/23 01/11/24 History metoprolol succinate 50 mg 50 mg PO DAILY 30 days #30 tabs 06/05/23 01/11/24 Rx tablet,extended release 24 hr (Toprol XL) ipratropium 0.5 mg-albuterol 3 mg 3 ml inhalation QID PRN Shortness 06/17/23 01/11/24 Rx (2.5 mg base)/3 mL nebulization Of Breath 30 days #180 mL soln spironolactone 25 mg tablet 25 mg PO BID 30 days #60 tabs 07/14/23 01/11/24 Rx omeprazole 40 mg capsule,delayed 40 mg PO DAILY #90 caps 08/04/23 01/11/24 Rx release albuterol sulfate 90 mcg/actuation 2 inh inhalation QID PRN shortness 08/18/23 01/04/24 Rx aerosol inhaler of breath or wheezing 90 days #8.5 grams cetirizine 10 mg tablet (Zyrtec) 10 mg PO DAILY PRN allergy 09/22/23 01/11/24 Rx symptoms #30 tabs dapagliflozin propanediol 10 mg 10 mg PO DAILY 30 days #30 tabs 10/13/23 01/11/24 Rx tablet (Farxiga) hydroxyzine HCl 25 mg tablet 25 mg PO TID PRN itching #90 tabs 10/28/23 01/04/24 Rx apixaban 5 mg tablet (Eliquis) 5 mg PO BID #60 tabs 12/10/23 01/11/24 Rx rosuvastatin 10 mg tablet See Rx Instructions .Route 12/25/23 01/11/24 Rx .COMPLEX #90 tabs tramadol 50 mg tablet 50 mg PO Q6H PRN pain #30 tabs 12/25/23 01/11/24 Rx carbamide peroxide 6.5 % ear drops 5 drp otic (ear) BID 4 days #15 mL 01/04/24 01/04/24 Rx (Ear Wax Removal Drops) chlorhexidine gluconate 0.12 % 15 ml buccal BID 10 days #118 mL 01/04/24 01/04/24 Rx mouthwash (Peridex) clindamycin HCl 150 mg capsule 150 mg PO TID 10 days #30 caps 01/04/24 01/04/24 Rx denosumab 60 mg/mL subcutaneous 60 mg SQ [id number] #1 mL 01/04/24 01/11/24 Rx syringe (Prolia) magnesium oxide 400 mg (241.3 mg See Rx Instructions .Route 01/04/24 01/11/24 Rx magnesium) tablet .COMPLEX #90 tabs fluticasone fur. 100 mcg-umeclid See Rx Instructions .Route 01/11/24 01/11/24 Rx 62.5 mcg-vilant 25 mcg .COMPLEX #60 blisters inhalat.powder (Trelegy Ellipta) New Prescriptions to Start Prescriptions: Allergies Allergy/AdvReac Type Severity Reaction Status Date / Time No Known Allergies Allergy Verified 01/04/24 12:59 Objective Narrative: Physical Exam: General: Alert and oriented x3, no acute distress, pleasant and cooperative Lungs: Respirations even and unlabored, symmetrical chest expansion Eyes: PERRL Musculoskeletal: Flexion and extension of lumbar [spine] somewhat guarded secondary to pain, [antalgic gait noted] positive leg raise Neurological: Speech clear, no gross sensory deficit Additional findings Additional findings: FINDINGS: Bones/joints: No anterior wedging deformity. No acute lucent fracture lines visualized. There is left convexity of the lower lumbar spine. 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 Correlate with the anatomic location of pain. Lower lumbar facet arthropathy. Spinal cord: No severe central canal or neural foraminal stenosis demonstrated by CT. Soft tissues: Unremarkable. 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 Correlate with the anatomic location of pain. INGS: Mild thoracolumbar curvature convex right with mild degenerative disc disease L1-L2 and L5-S1 with mild facet hypertrophic changes at L4-5 and L5-S1. No fracture or dislocation. No lytic or blastic. SI joints have an unremarkable appearance. There is a distal abdominal aortic stent. IMPRESSION: Mild lumbar spondylosis with scoliosis and degenerative disc disease and facet arthritic change. Dictated By: Ever Wright MD Signed By: <Electronically signed by Ever Wright MD in OV> 03/26/17 1443 DD/ 1441 Assessment and Plan *Assessment and plan (1) Degenerative disc disease, lumbar: Status: Acute Category: Medical Code(s): M51.369 - Other intervertebral disc degeneration, lumbar region without mention of lumbar back pain or lower extremity pain (2) Lumbar radiculopathy: Status: Acute Category: Medical Code(s): M54.16 - Radiculopathy, lumbar region Plan Patient is experiencing significant pain in her low back with numbness and tingling that does go down into her left leg to her foot. Patient did have limited range of motion of her lumbar spine with a positive left leg raise. I did discuss with the patient that I do believe she would benefit from a lumbar epidural steroid injection. Risk and benefits were discussed with patient and she would like to proceed forward with this plan of care. Patient has tried and failed conservative therapy including continued at home stretching exercise for longer than 12 weeks as well as previous physical therapy. Patient is currently on Eliquis and was counseled that we will reach out to Dr. Vargas's office to confirm she can stop this medication prior to this injection. Patient will be scheduled for an LESI L4-L5 under fluoroscopy. Patient has been instructed to contact the clinic with any concerns before the next appointment. Dr. Gallardo has reviewed this note and agrees with this plan of care. This note was dictated using voice recognition software and make contain errors or omissions. All injections are used with Lidocaine or Bupivacaine and Depo Medrol.
== END 2024-01-11 23:59 | disposition home or self-care (01) ==
LOC: SC.PAIN 10:45
PROVIDERS: PCP Nurse Practitioner Family; Visit Provider Nurse Practitioner Family
DX: M51.16 Intervertebral disc disorders with radiculopathy, lumbar region (principal); Z73.89 Other problems related to life management difficulty; Z87.891 Personal history of nicotine dependence; Z79.899 Other long term (current) drug therapy
CPT/HCPCS: 99202; G0463

== ENCOUNTER 2024-01-21 13:14 | Outpatient (CLI) | payer MEDICARE, SELFPAY ==
[2024-01-21 13:37] VITALS: BP 132/69; PULSE 92; RESP 18; TEMP 36.4; O2SAT 98
[2024-01-21] MEDS: DENOSUMAB 60 MG/ML SYRINGE SUBCUT (13:37)
== END 2024-01-21 13:54 | disposition home or self-care (01) ==
LOC: INF 13:15
PROVIDERS: PCP Nurse Practitioner Family; Visit Provider Nurse Practitioner Family
DX: M81.0 Age-related osteoporosis without current pathological fracture (principal)
CPT/HCPCS: 96372; J0897

== ENCOUNTER 2024-04-29 12:28 | Outpatient (CLI) | payer MEDICARE, SELFPAY ==
[2024-04-29 13:07] LABS: Basophils # 0.1 K/mm3 (0-0.2); Basophils % 0.8 % (0.1-2.0); Eosinophils # 0.1 K/mm3 (0.0-0.4); Eosinophils % 0.9 % (0.1-12.0); Hematocrit 56.6 % (37.0-47.0); Lymphocytes # 3.2 K/mm3 (0.7-4.5); Lymphocytes % 26.4 % (10-50); Mean Corpuscular Hemoglobin 32.1 pg (27.0-31.2); Mean Corpuscular Volume 97.1 fl (81-99); Mean Platelet Volume 10.8 fl (7.4-10.4); Monocytes # 0.9 K/mm3 (0.1-1.0); Monocytes % 7.7 % (1.7-9.3); Neutrophils # 7.7 K/mm3 (1.8-7.8); Neutrophils % 63.7 % (37.0-80.0); Platelet Count 107 K/mm3 (142-424); Red Blood Count 5.83 M/mm3 (4.20-5.40); Red Cell Distribution Width 15.9 % (11.5-17.5)
[2024-04-29 13:14] LABS: Hemoglobin 18.7 g/dL (12.2-16.2)
[2024-04-29 13:31] LABS: Hemoglobin A1C 5.6 % (4.0-6.0)
[2024-04-29 13:32] LABS: Alanine Aminotransferase 19 U/L (12-78); Albumin Level 5.2 g/dl (3.5-5.0); Albumin/Globulin Ratio 1.7 (1.1-1.8); Alkaline Phosphatase 80 U/L (38-126); Anion Gap 13.1 mEq/L (5-15); Aspartate Amino Transferase 35 U/L (14-36); Bilirubin,Total 0.8 mg/dl (0.2-1.3); Blood Urea Nitrogen 16 mg/dl (7-17); Calcium 10.8 mg/dl (8.4-10.2); Carbon Dioxide 30 mmol/L (22.0-30.0); Chloride 96 mmol/L (98-107); Chol/HDL Ratio 4.6 (1-3.5); Cholesterol 157 mg/dl (140-200); Estimated Glomerular Filt Rate 57 ml/min (>60); GFR (African American) 69 ML/MIN (>60); Globulin 3.1 g/dL (1.3-3.2); Glucose 91 mg/dl (74-100); HDL Cholesterol 34 mg/dl (40-60); Magnesium 1.5 mg/dl (1.6-2.3); Potassium 5.1 mmoL/L (3.5-5.1); Sodium 134 mmol/L (136-145); Total Protein,Serum 8.3 g/dl (6.3-8.2); Triglycerides 195 mg/dl (30-150); VLDL Cholesterol 39 mg/dL (0-40)
[2024-04-29 13:43] LABS: Direct LDL Cholesterol 78.39 mg/dL (100-129)
[2024-04-29 13:49] LABS: Free T4 (Free Thyroxine) 1.32 ng/dl (0.78-2.19)
[2024-04-29 14:03] LABS: Thyroid Stimulating Hormone 1.19 uIU/mL (0.465-4.68)
[2024-04-29 14:07] LABS: Ferritin 18.3 ng/ml (11.1-264)
[2024-04-29 14:22] LABS: Vitamin B12 689 pg/mL (239-931)
[2024-05-04 01:15] LABS: Zinc 65 ug/dL (44-115)
== END 2024-04-29 23:59 | disposition home or self-care (01) ==
LOC: LAB 12:29
PROVIDERS: PCP Nurse Practitioner Family; Visit Provider Nurse Practitioner Family
DX: E78.2 Mixed hyperlipidemia (principal); R25.9 Unspecified abnormal involuntary movements; I10 Essential (primary) hypertension; D52.9 Folate deficiency anemia, unspecified; Z79.84 Long term (current) use of oral hypoglycemic drugs
CPT/HCPCS: 36415; 80053; 80061; 82525; 82607; 82728; 83036; 83735; 84439; 84443; 84630; 85025

== ENCOUNTER 2024-05-20 16:11 | Outpatient (CLI) | payer MEDICARE, SELFPAY ==
[2024-05-20 16:53] LABS: Basophils # 0.1 K/mm3 (0-0.2); Basophils % 1.1 % (0.1-2.0); Eosinophils # 0.2 K/mm3 (0.0-0.4); Eosinophils % 1.3 % (0.1-12.0); Hematocrit 58.2 % (37.0-47.0); Lymphocytes # 3.1 K/mm3 (0.7-4.5); Lymphocytes % 26.6 % (10-50); Mean Corpuscular HGB Conc 32.1 g/dL (31.8-35.4); Mean Corpuscular Hemoglobin 31.3 pg (27.0-31.2); Mean Corpuscular Volume 97.3 fl (81-99); Mean Platelet Volume 10.9 fl (7.4-10.4); Monocytes # 0.9 K/mm3 (0.1-1.0); Neutrophils # 7.3 K/mm3 (1.8-7.8); Neutrophils % 62.5 % (37.0-80.0); Nucleated Red Blood Cells # 0 10^3/uL; Nucleated Red Blood Cells % 0 %; Platelet Count 99 K/mm3 (142-424); Red Blood Count 5.98 M/mm3 (4.20-5.40); Red Cell Distribution Width 15.9 % (11.5-17.5); Red Cell Distribution Width-SD 56.6 fL; White Blood Count 11.7 K/mm3 (4.8-10.8)
[2024-05-20 17:38] LABS: Hemoglobin 18.7 g/dL (12.2-16.2)
[2024-05-20 17:58] LABS: Magnesium 2.1 mg/dl (1.6-2.3)
== END 2024-05-20 23:59 | disposition home or self-care (01) ==
LOC: LAB 16:11
PROVIDERS: PCP Nurse Practitioner Family; Visit Provider Nurse Practitioner Family
DX: E83.42 Hypomagnesemia (principal); D69.6 Thrombocytopenia, unspecified
CPT/HCPCS: 36415; 83735; 85025

== ENCOUNTER 2024-06-01 14:03 | Outpatient (CLI) | payer MEDICARE, SELFPAY ==
[2024-06-01 16:00] LABS: Folate > 20.00 ng/mL
== END 2024-06-01 23:59 | disposition home or self-care (01) ==
LOC: LAB 14:04
PROVIDERS: PCP Nurse Practitioner Family; Visit Provider Internal Medicine Medical Oncology
DX: D69.6 Thrombocytopenia, unspecified (principal)
CPT/HCPCS: 36415; 82746

== ENCOUNTER 2024-06-13 14:45 | Outpatient (CLI) | payer MEDICARE, SELFPAY ==
[2024-06-13 16:44] LABS: Microscopic, Urine URINE MICROSCOPIC (MICROSCOPIC)
[2024-06-13 20:12] LABS: Appearance,Urine CLEAR (Clear); Bilirubin,Urine Negative (Negative); Blood, Urine Negative (Negative); Color,Urine YELLOW (Yellow); Glucose,Urine (UA) 3+ (Negative); Ketones,Urine Negative (Negative); Leukocyte Esterase,Urine TRACE (Negative); Nitrate,Urine Negative (Negative); Protein,Urine Negative (Negative); Urobilinogen,Urine 0.2 EU/dl (0.2)
[2024-06-13 20:48] LABS: Bacteria,Urine 1+ /lpf; Yeast,Urine 1+ /lpf
== END 2024-06-13 23:59 | disposition home or self-care (01) ==
LOC: LAB.DROPOF 06-14 10:27
PROVIDERS: PCP Nurse Practitioner Family; Visit Provider Nurse Practitioner Family
DX: R30.0 Dysuria (principal)
CPT/HCPCS: 81001; 87086

== ENCOUNTER 2024-06-21 09:49 | Outpatient (CLI) | payer MEDICARE, SELFPAY ==
[2024-06-21] MEDS: ALBUTEROL 0.083% 2.5 MG/3 ML NEB IH (08:30)
--- OUTSIDE RECORDS SUMMARY | 2024-06-21 09:52 | XMS_ITS | Data Portability ---
Author Organization [place] [facility] [facility] Address [address] [facility] [address] [place] [address] Care Team Providers Care Torts Law Professor Name Role Phone PHONG WILLIAM Primary Care Provider [phone] Assessment No assessment recorded. Plan of Treatment Reminders Order Date Submit Date Provider Last Modified By Organization Details Last Modified Time Details Appointments None record ed. Lab None record ed. Referral None record ed. Procedures None record ed. Surgeries None record ed. Imaging None record ed. Medication Orders None record ed. Patient TargetsNo targets recorded. Patient Instructions Encounter Date Encounter Id Patient Instructions Last Modified By Organization Details Last Modified Time 01/27/2017 [id number] 1. Tobacco cessation stongly encouraged. 2. EGD ordered- Dr. Malin 3. Recomend repeat thyroid ultrasound in July 2017 4. F/u in July with Thyroid ultrasound results. [email or web address] Not available 01/27/2017 16:55:17 Reason for Referral None Reported. Results Created Date Observation Date Name Description Value Unit Range Abnormal Flag Note LastModifiedBy Organization Detail LastModifiedTime 01/24/20 17 01/22/2017 US, thyro id No observ ation record ed. [email or web address] Not Available 2016 10:51:38 01/27/20 17 01/22/2017 US, thyro id No observ ation record ed. [email or web address] [facility] (Radiology) [address] [place], [address], 01/27/2017 13:16:29 Result Notes None recorded. Problems Name Problem SNOMED Code Status Onset Date Resolution Date Notes Provider Name and Address Organization Details Recorded Time Atypical squamous cells of undetermi rozina significa nce on cervical Papanicol aou smear 518019018 Active 2014 Provider: Ramy Hawk;Ilia tus: Active Not Available [facility] 6 06:27:24 High grade squamous intraepit helial lesion on cervical Papanicol aou smear 24130193893 107 Active 2014 From Automated Load;Prov ider: Ramy Hawk;Ilia tus: Active Not Available [facility] 6 06:27:24 Cyst of vulva 32007772 Active 2015 From Automated Load;Prov ider: Ashia Vasquez; atus: Active Not Available [facility] 6 06:27:24 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 Procedures Surgical History Date Name Laterality Status Provider Name and Address Organization Details Recorded Time 07/25/19 22 removal of implantable cardiac pacemaker completed [facility] 07/29/2021 10:09:55 07/03/19 22 replacement of electronic heart device, pulse generator completed [facility] 07/29/2021 10:16:21 transesophageal echocardiography completed [facility] 07/29/2021 10:10:01 Imaging Results Imaging Date Name Status LastModified by Organiz ation Details LastModified Time 01/22/2017 US, thyroid completed [email or web address] Information n ot available 01/26/2017 10:51:38 01/22/2017 US, thyroid completed [facility] (Radiology) [address] [place] [place], [address], 01/27/2017 13:16:29 Procedure Notes None recorded. Medical Equipment None Reported. Allergies No known drug allergies Medications Name Sig Start Date Stop Date Status Note LastModified by Organization Details LastModified Time atorvasta tin 40 mg tablet TAKE ONE TABLET BY MOUTH EVERY DAY active Not Available Not Available No t Available promethaz ine-DM 6.25 mg-15 mg/5 mL oral syrup take 5 ML BY MOUTH EVERY 6 HOURS 07/30 completed Not Available Not Available Not Available neomycin- polymyxin -hydrocor t 3.5 mg/mL-10, 000 unit/mL-1 % ear solution active Not Available Not Available Not Available potassium chloride ER 10 mEq capsule,e xtended release TAKE ONE CAPSULE BY MOUTH EVERY DAY IN THE MORNING active Not Available Not Available No t Available prednison e 10 mg tablet 07/30 completed Not Available Not Available Not Available gabapenti n 600 mg tablet TAKE ONE TABLET BY MOUTH THREE TIMES DAILY MAY CAUSE DROWSINE SS active Not Available Not Available No t Available doxycycli ne hyclate 100 mg capsule active Not Available Not Available Not Available carvedilo l 12.5 mg tablet TAKE ONE TABLET BY MOUTH TWICE DAILY active Not Available Not Available No t Available azithromy brian 250 mg tablet TAKE 2 TABLETS BY MOUTH ON DAY 1, THEN TAKE 1 TABLET DAILY ON DAYS 2-5 -- FINISH ALL MEDICINE -- 07/30 completed Not Available Not Available Not Available hydrocodo ne 5 mg-acetam inophen 325 mg tablet TAKE ONE TABLET BY MOUTH EVERY 8 HOURS NEEDED MAY CAUSE DROWSINE SS active Not Available Not Available No t Available lisinopri l 20 mg tablet TAKE ONE TABLET BY MOUTH EVERY DAY 07/30 completed Not Available Not Available Not Available topiramat e 25 mg tablet TAKE ONE TABLET BY MOUTH EVERY EVENING active Not Available Not Available No t Available clopidogr el 75 mg tablet TAKE ONE TABLET BY MOUTH EVERY DAY active Not Available Not Available No t Available carvedilo l 3.125 mg tablet Daily 07/30 completed Not Available Not Available Not Available warfarin 4 mg tablet Daily 07/30 completed Frequenc y: daily;Me dication Descript ion: warfarin ; Dosage:1 ; Route:or al; refills: 0 Not Available Not Available Not Available cephalexi n 500 mg capsule active Not Available Not Available Not Available pantopraz ole 40 mg tablet,de layed release TAKE ONE TABLET BY MOUTH EVERY DAY active Not Available Not Available No t Available Acuprin 81 mg tablet,de layed release active Medicati on Descript ion: aspirin; Route:or al; refills: 0; Quantity :30 tablet Not Available Not Available Not Available fluoxetin e 20 mg tablet Daily 07/30 completed Frequenc y: daily;Me dication Descript ion: fluoxeti ne; Dosage:1 ; Route:or al; refills: 0 Not Available Not Available Not Available ropinirol e 0.5 mg tablet 07/30 completed Not Available Not Available Not Available lisinopri l 5 mg tablet TAKE ONE TABLET BY MOUTH EVERY DAY active Not Available Not Available No t Available furosemid e 20 mg tablet TAKE ONE TABLET BY MOUTH EVERY DAY IN THE MORNING active Not Available Not Available No t Available ergocalci ferol (vitamin D2) 1,250 mcg (50,000 unit) capsule TAKE ONE CAPSULE BY MOUTH ONCE a WEEK active Not Available Not Available No t Available albuterol sulfate HFA 90 mcg/actua tion aerosol inhaler inhale 1 TO 2 puffs BY MOUTH EVERY 4 TO 6 HOURS active Not Available Not Available No t Available docusate sodium 250 mg capsule Two times a day active Frequenc y: bid;Medi cation Descript ion: docusate ; Dosage:1 ; Route:or al; refills: 0 Not Available Not Available Not Available cefdinir 300 mg capsule Take by oral route for 7 days. active Not Available Not Available No t Available fluticaso ne propionat e 50 mcg/actua tion nasal spray,nancy pension INSTILL 2 SPRAYS IN EACH NOSTRIL EVERY DAY active Not Available Not Available No t Available sertralin e 50 mg tablet TAKE 1/2 TABLET BY MOUTH EVERY DAY FOR 2 WEEKS, THEN TAKE ONE TABLET BY MOUTH EVERY DAY thereaft er 07/30 completed Not Available Not Available Not Available Ciprodex 0.3 %-0.1 % ear drops,nancy pension instill 4 drops in affected ear(s) TWICE DAILY FOR 7 DAYS active Not Available Not Available No t Available rosuvasta tin 10 mg tablet TAKE ONE TABLET BY MOUTH EVERY DAY AT BEDTIME active Not Available Not Available No t Available gabapenti n 300 mg tablet Three times a day 07/30 completed Frequenc y: tid;Medi cation Descript ion: gabapent in; Dosage:1 ; Route:or al; refills: 0 Not Available Not Available Not Available Vitamin D3 active Medicati on Descript ion: cholecal ciferol; Route:or al; refills: 0 Not Available Not Available Not Available Flovent Diskus 100 mcg/actua tion powder for inhalatio n Two times a day active Duration : 30 days;Paulo quency: bid;Medi cation Descript ion: fluticas one; Dosage:1 puff; Route:in halation ; refills: 0; Quantity :1 powder Not Available Not Available Not Available Eliquis 5 mg tablet TAKE ONE TABLET BY MOUTH TWICE DAILY active Not Available Not Available No t Available ProAir RespiClic k 90 mcg/actua tion breath activated 07/30 completed Medicati on Descript ion: albutero l; Route:in halation ; refills: 0 Not Available Not Available Not Available Stiolto Respimat 2.5 mcg-2.5 mcg/actua tion solution for inhalatio n active Medicati on Descript ion: olodater ol-tiotr opium ; Route:in halation ; refills: 0 Not Available Not Available Not Available Vitals Date Recorded Body weight Body mass index (BMI) Body height Body temperature Provider Name and Address Organization Details Last Updated DateTime 01/27/2017 61638.09 g 29.3 kg/m2 167.64 cm 97.5 [degF] Isabell Bearden [facility] 01/27/2017 16:15:45 Date Recorded Body height Body mass index (BMI) Body weight Heart rate Oxygen saturation Oxygen saturation in Arterial blood by Pulse oximetry Inhaled oxygen flow rate Systolic blood pressure Diastolic blood pressure Provider Name and Address Organization Details Last Updated DateTime 2 167.64 cm 22.6 kg/m2 41383.9 3 g 76 /min 91 % 91 % 4 L/min 106 mm[Hg] 70 mm[Hg] Mireille Deshpande [facility] 2 10:19:54 Social History Question Answer Notes LastModified by Organizat ion Details LastModified Time Tobacco Smoking Status Former Smoker Mireille Deshpande [facility] 07/30/2021 10:13:31 What Was The Date Of Your Most Recent Tobacco Screening? 07/30/2021 Information not available 07/30/2021 Has Tobacco Cessation Counseling Been Provided? No [email or web address] Information not available 07/30/2021 Sex: Unknown Functional Status None recorded. Mental Status None recorded. Family History Relationship Description Onset Age of this Age Resolved Age Notes LastModified by Organization Details LastModified Time Father Hearing loss [email or web address] Not avai lable 01/27/2017 16:10:32 Father Hypertensive disorder [email or web address] Not available 2016 16:11:17 Father Diabetes mellitus [email or web address] Not available 2016 16:11:30 Mother Hypertensive disorder [email or web address] Not available 2016 16:11:17 Medical History Condition Response Bleeding Disorder N Cancer N Alcohol Overuse/Alcohol Abuse N Anesthesia Complications N Heart Attack (DC) Y Heart Disease Y Hypertension Y Gynecological HistoryNo gynecological history recorded. Obstetrics History GPAL:G 0 P 0 0 0 0 Past Encounters Encounter ID Performer Location Encounter Start Date Encounter Closed Date Diagnosis/Indication Diagnosis SNOMED-CT Code Diagnosis ICD10 Code Diagnosis Note [id number] KRISTOPHER AVILA III[place] [facility] [address] [place] [address] 01/27/2017 15:44:32 01/28/2017 09:23:17 Dysphagia 22433072 R13.10 Nicotine dependence 5629 4008 F17.200 Thyroid nodule 002953019 E04.1 Cyst of thyroid 94929165 E04.1 Chronic hoarseness 59283 58519 105 R49.0 Hypertroph y of nasal turbinates 93951846 J34.3 Excessive belching 54654 7000 R14.2 [id number] ABBE HOLLEY MD CARDIOLOG Y [address] [place] [address] 07/30/2021 10:05:00 07/30/2021 10:27:26 Wound of skin 479964211 T14.8XXD Patient's incision is well-heale d. Follow-up as noted above. Health Concerns Section Related Observation LastModified by Organization Detai ls LastModified Time None Recorded Concern Status LastModified by Organization Details LastModified Time None Recorded Advance Directives Directive None Recorded Payers Insurance Date Sequence Insurance Name Policy Number Policy Harding Covered Member ID Harding Member ID Guarantor Name 07/30/2021 1 [place] Lena Chandler [id number] Lena Chandler 04/21/2018 1 *SELF PAY* Pina Chandler 08/06/2021 1 Image Searcher (MEDICARE REPLACEMENT HMO) Lena Chandler [id number] Lena Chandler Notes Date Note Type Note Provider Name and Address Organization Details Recorded Time 01/27/2017 text/html Lena comes in t mindy for evaluation of her thryoid gland. She had a thyroid ultrasound obtained on 01-22-17 which showed mildly enlarged thyroid gland with lateral nodules which have a low level of malignancy. The right lobe presents with a 6mm nodule present in the upper pole, partially cystic nodule in the mid pole region measuring 6mm. Left lobe presents with a 5mm cystis present in the upper pole, a partially cystic 8mm nodule present in the mid pole. She has noticed dysphagia and struggles to swallow foods. Solid foods are her main issue. She does notice an increase in belching. She has a high family history of thyroid cancer including her mother and maternal aunt. Lena is a smoker and used to smoke more than a pack per day. She is currently smoking 4-5 cigarettes per day. She does have cardiovascular disease. She has not had a recent EGD or Barium swallow. KRISTOPHER AVILA III, MD [address] [place] [address], [phone], [facility] 01/27/2017 17:33:10 07/30/2021 text/html Mrs. 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 She is normally followed by Dr. Mariscal. He reports no problems with wound healing and is anticipating a follow-up with Dr. Mariscal later this month. ABBE HOLLEY MD [address] [place] [address], [phone], [facility] 07/30/2021 10:24:58 OBGyn Episode No OBEpisode recorded.
== END 2024-06-21 23:59 | disposition home or self-care (01) ==
LOC: RT 09:50
PROVIDERS: PCP Nurse Practitioner Family; Visit Provider Internal Medicine Pulmonary Disease
DX: J44.9 Chronic obstructive pulmonary disease, unspecified (principal)
CPT/HCPCS: 94010; 94618

== ENCOUNTER 2024-07-21 14:10 | Outpatient (CLI) | payer MEDICARE, SELFPAY ==
--- OUTSIDE RECORDS SUMMARY | 2024-05-30 13:20 | XMS_ITS | Encounter Summary ---
Author Organization [facility] Address [address] [place] [address] Care Team Providers Care Sox Analyst Name Role Phone Kelton Felicitas Delilah DENISE Primary Care Provider [phone]- [phone] Reason for Referral * Consultation (Routine) - Authorized Specialty Diagnoses / Procedures Referred By Contac t Referred To Contact Diagnoses Primary hyperparathyroidism (CMS/HCC) Natalia Alves MD [address] [address] Phone: tel: fax: Referral ID Status Reason Start Date Expiration Date V isits Requested Visits Authorized [id number] Authorized 05/30/2024 11/29/2025 1 1 Reason for Visit * Reason Comments Primary Hyperparathyroidism Encounter Details Date Type Department Care Team (Late st Contact Info) Description 05/30/2024 1:20 PM EDT Office Visit [facility] Endocrinology [address] [place] [address] Natalia Alves MD [address] [address] Primary hyperparathyroidism (CMS/HCC) (Primary Dx) [...] History: Diagnosis Date Atherosclerotic heart disease of [place] coronary artery without angina pectoris Coronary artery [...] CARDIAC DEFIBRILLATOR PLACEMENT N/A Implantable Cardioverter-Defibrillator from [employer] OTHER SURGICAL HISTORY N/A Transcath Placement Of Intrathoracic Carotid Artery Stent from [employer] Family History Problem Relation Name Age of [...] she will send us the labs via [employer] - Follow with endo surgery for possible [...] MD Division of Endocrinology, Diabetes and Metabolism [facility] documented in this encounter Plan of Treatment Upcoming Encounters Date Type Department Care Team (Late st Contact Info) Description 11/30/2024 2:20 PM EDT Office Visit [facility] Endocrinology [address] [place] [phone] Natalia Alves MD [address] [facility] [address] [place] [address] 12/08/2024 3:00 PM EDT Office Visit Medical Office Building Surgical Specialties [address] [facility], [address] [place] [address] Amish Escobedo MD [address] [facility] [address] [place] [address] Scheduled Referrals Name Type Priority Associated Diagnoses Orde r Schedule Follow Up [facility] Outpatient Referral Routine Primary hyperparathyroidism (CMS/HCC) Expected: 11/29/2024, Expires: 06/29/2025 documented as of this encounter Visit Diagnoses Diagnosis Primary hyperparathyroidism (CMS/HCC)- Primary Primary hyperparathyroidism documented in this encounter Additional Health Concerns Assessment Noted Time A Body Mass Index follow-up plan has been documented for the patient 05/30/2024 1:38 PM EDT documented as of this encounter Care Teams Sox Analyst Relationship Specialty Start Date End Date Felicitas Melaar APRN [address] [place] [address] PCP - General 01/29/24 documented as of this encounter
--- OUTSIDE RECORDS SUMMARY | 2024-06-02 14:00 | XMS_ITS | Encounter Summary ---
Author Organization [facility] Address [address] [place] [address] Care Team Providers Care Vice President Planning Name Role Phone Felicitas Melara APRN Primary Care Provider [phone] Reason for Referral * Consultation (Routine) - Closed Specialty Diagnoses / Procedures Referred By Adria t Referred To Contact Genetics Diagnoses Primary hyperparathyroidism (CMS/HCC) Amish Escobedo MD [address] [address] Phone: tel: fax: [facility] Genetic Counseling [address] [place] [address] Phone: tel: fax: Referral ID Status Reason Start Date Expiration Date V isits Requested Visits Authorized [id number] Closed Specialty Services Required 06/02/2024 12/02/2025 1 1 Reason for Visit * Reason Comments Consult * Consultation (Routine) - Closed Specialty Diagnoses / Procedures Referred By Contac t Referred To Contact General, Endocrine & Minimally Invasive Surgery / General Surgery Diagnoses Primary hyperparathyroidism (CMS/HCC) Natalia Alves MD [address] [place] [address] [address] [place] [address] Phone: tel: fax: Amish Escobedo MD [address] [facility] [address] [place] [address] Phone: tel:[phone] fax:[phone] Referral ID Status Reason Start Date Expiration Date V isits Requested Visits Authorized [id number] Closed Specialty Services Required 01/29/2024 07/30/2025 1 1 Encounter Details Date Type Department Care Team (Latest Contact Info) Description 06/02/2024 2:00 PM EDT Consult Medical Office Building Surgical Specialties [address], [address] [place] [address] Amish Escobedo MD [address] [place] [address] Primary hyperparathyroidism (CMS/HCC) Social History Tobacco Use Types Packs/Day Years Used Date Smoking Tobacco: Former Cigarettes Passive Smoke Exposure: Current Smokeless Tobacco: Never Alcohol Use Standard Drinks/Week Comments Yes 0 (1 standard drink = 0.6 oz pur e alcohol) Humiliation, Afraid, Rape, and Kick questionnair e Answer Date Recorded Within the last year, have y ou been afraid of your partner or ex-partner? No 06/02/2024 Within the last year, have y ou been humiliated or emotionally abused in other ways by your partner or ex-partner? No Within the last year, have y ou been kicked, hit, slapped, or otherwise physically hurt by your partner or ex-partner? No 06/02/2024 Within the last year, have y ou been raped or forced to have any kind of sexual activity by your partner or ex-partner? No 06/02/2024 AUDIT-C Answer Date Recorded Q1: How often do you have a drink containing alcohol? Never 06/02/2024 Q2: How many drinks containi ng alcohol do you have on a typical day when you are drinking? Patient does not drink Q3: How often do you have si x or more drinks on one occasion? Never 06/02/2024 Overall Financial Resource Strain (CARDIA) Answe r Date Recorded How hard is it for you to pa y for the very basics like food, housing, medical care, and heating? Not hard at all 06/02/2024 PHQ-2 Answer Date Recorded Patient Health Questionnaire-2 Score 0 05/30/2024 [facility] [place] of Occupat ional [facility] - Occupational Stress Questionnaire Answer Date Recorded Do you feel stress - tense, restless, nervous, or anxious, or unable to sleep at night because your mind is troubled all the time - these days? Not at all 06/02/2024 Exercise Vital Sign Answer Date Recorde d On average, how many days pe r week do you engage in moderate to strenuous exercise (like a brisk walk)? 3 days 06/02/2024 On average, how many minutes do you engage in exercise at this level? 60 min 06/02/2024 PRAPARE - Transportation Answer Date Re corded In the past 12 months, has l ack of transportation kept you from medical appointments or from getting medications? No 05/11 In the past 12 months, has l ack of transportation kept you from meetings, work, or from getting things needed for daily living? No 06/02/2024 Utilities Answer Date Recorded In the past 12 months has th e [email or web address], gas, oil, or water [employer] threatened to shut off services in your home? No 06/02/2024 Comments No Sex and Gender Information Value Date Recorded Sex Assigned at Not on file Legal Sex Female 8:21 PM EDT Gender Identity Not on file Sexual Orientation Not on file documented as of this encounter Last Filed Vital Signs Vital Sign Reading Time Taken Comments Blood Pressure 112/69 06/02/2024 1:52 PM EDT Pulse 93 06/02/2024 1:52 PM EDT Temperature 36.7 C (98.1 F) 06/02/2024 1:52 PM EDT Respiratory Rate - - Oxygen Saturation 94% 06/02/2024 1:52 PM EDT Inhaled Oxygen Concentration - - Weight 64.4 kg (141 lb 15.6 oz) 06/02/2024 1:52 PM EDT Height 170.2 cm (5' 7 ) 06/02/2024 1:52 PM EDT Body Mass Index 22.24 06/02/2024 1:52 PM EDT documented in this encounter Functional Status * AUDIT-C Score Answer Date of Assessment Author 0 06/02/2024 1:55 PM EDT Aj Polk * Question Answer Date of Assessment Author Q1: How often do you have a drink containing alcohol? Never 06/02/2024 1:55 PM EDT Haseeb Polk Q2: How many drinks containing alcohol do you have on a typical day when you are drinking? Patient does not drink 06/02/2024 1:55 PM EDT Haseeb Polk Q3: How often do you have six or more drinks on one occasion? Never 06/02/2024 1:55 PM EDT Haseeb Polk documented as of this encounter Miscellaneous Notes * Progress Notes - Patti Vasquez MD - 06/02/2024 2:00 PM EDT Dear Natalia Alves MD: We had the pleasure of seeing your 58 y.o. patient Lena Chandler in consultation for concern for hyperparathyroidism. SUBJECTIVE The parathyroid problem was first noted when high calcium was noted on routine labs (11.4) Prior to this visit, the patient has undergone Sestamibi - Left enlarged hypercellular parathyroid gland in the region of the superior left thyroid lobe. The patient is currently taking no thyroid or calcium-related medications. Labs reveal: total calcium 9.7 <-11.4 <--10.6 <--10.6, ionized calcium 5.9, PTH 161, GFR 71.9, creatinine 0.92, 25-hydroxy vitamin D 17.2, 24-hr urine calcium Low, TSH 0.84. The patient is currently experiencing fatigue, bone/joint pain, memory loss, brain fog, dyspepsia/abdominal pain, polyuria, and insomnia, but denies depression, constipation, polydipsia, weight loss,nausea, vomiting, voice change, neck mass, and dysphagia. The patient has a personal history of osteoporosis (DEXA 12/2023 with T score of -2.9 hip), pathologic fracture (spine fracture after fall from standing), peptic ulcer disease (Perforated gastric ulcer requiring exploratory laparotomy ), and history of cancer (cervix, treated with cryotherapy), butdenies kidney stones, renal insufficiency, ESRD, calciphylaxis, pancreatitis, thyroid disease, radia tion to the neck, MEN, and fibromyalgia. Her family history of endocrine disease includes thyroid cancer (mother). Additional pertinent history includes hospitalization one month ago after being found down, unresponsive. She was mechanically ventilated for several days and was found to have heart failure exacerbation. She was discharged to rehab and denies any recent hospital admissions. She denies chest pain or shortness of breath at baseline. She is able to walk up a flight of stairs without chest pain or shortness of breath. She is on 2-3 L of oxygen at night. She has COPD and sees a associate professor of literature. Patient has had coronary intervention with stents and peripheral vascular stents and angioplasties per her report. She is on Eliquis for the multiple stents. Patient quit smoking one year ago after her hospital admission. She denies drinking alcohol or using illicit drugs. She lives with her boyfriend Kee. Medical History[1] Surgical History[2] Family History[3] Social History[4] Allergies[5] Current Medications[6] Review of Systems Constitutional: as noted in HPI Eyes: as noted in HPI Ear, Nose, Mouth & Throat: as noted in HPI Cardiovascular: as noted in HPI Respiratory: as noted in HPI Gastrointestinal: as noted in HPI Urinary: as noted in HPI Musculoskeletal: as noted in HPI Skin: as noted in HPI Neurological: as noted in HPI Psychiatric: as noted in HPI Endocrine: as noted in HPI Hematologic & Lymphatic: as noted in HPI Allergic/Immunologic: as noted in HPI OBJECTIVE Blood pressure 112/69, pulse 93, temperature 36.7 ??C (98.1 ??F), temperature source Oral, height 1.702 m (5' 7 ), weight 64.4 kg (141 lb 15.6 oz), SpO2 94%. Physical Exam Constitutional: No acute distress. Well appearing. Well nourished. Voice sounds normal during routine speech. Eyes: Extraocular movements intact. Ear, Nose, Mouth & Throat: Hearing normal. Moist mucous membranes. Neck: Neck was supple, symmetric, trachea midline. No lymphadenopathy. No thyromegaly. No palpable nodules. Pulmonary: Normal respiratory effort. Chest symmetrical. Cardiovascular: Regular rate. No murmurs. Abdomen: Abdomen non-tender. No masses. Musculoskeletal: Gait and station were normal. Digits and nails were normal without clubbing or cyanosis. Stability was normal. Skin: No rashes or ulcers. Normal turgor. Psychiatric: Alert and orientated to person, place and time. Mood and affect were normal. Procedures: Procedure: In-Office Ultrasound Performed by: Amish Escobedo MD Date of procedure: 06/02/24 Sonographic images are permanently stored and available in the [facility] PACS system. Indication: Concern for hyperparathyroidism Prior thyroid surgery: None Surgeon-performed real-time high-frequency sonographic imaging was performed in both the transverseand longitudinal planes of the entire thyroid, central neck lymph nodes, and lateral neck lymph nodes. Measurements are expressed as longitudinal (sagittal) x depth (AP) x width (transverse) unless otherwise noted. Thyroid gland echotexture is normal. Right thyroid lobe is normal in size measuring 5.5 x 1.8 x 2.4 cm. Left thyroid lobe is normal in size measuring 4.1 x 1.7 x 1.8 cm. Isthmus measures 0.33 cm. Nodule 1: 0.7 x 0.7 x 0.4 cm right inferior solid, cystic Nodule 2: 0.9 x 0.9 x 0.6 cm left middle spongiform Candidates for parathyroid adenomas are not visualized. Central lymph nodes (level ): Unremarkable Lateral lymph nodes (levels II-V): Unremarkable THYROID ULTRASOUND IMPRESSION: Thyroid gland with normal echotexture and two subcentimeter nodules that do not meet criteria for biopsy. No parathyroid adenoma candidates were visualized. ASSESSMENT/PLAN Diagnosis Plan 1. Primary hyperparathyroidism (CMS/HCC) Ambulatory referral to Endocrine Surgery ([facility]) Ambulatory Referral to Oncology Genetics Ms. Lena Chandler is a 58 y.o. female with No primary diagnosis found. in the setting of osteoporosis, significantly elevated calcium >1 above normal, and parathyroid-related symptoms (fatigue, fractures, bone/joint pain, perforated ulcer). We have reviewed outside records and labs. 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 We will obtain the further work up with a referral to genetic counseling for familial hypocalciuric hypercalcemia. We have reviewed the reports for the parathyroid nuclear images which revealed a small <3mm in left lower thyroid gland concern ing for possible adenoma. We proceeded with in-office surgeon-performed ultrasound which revealed did not find any parathyroid candidates. Two subcm thyroid nodules were also visualized and did not meet criteria for biopsy. FNA was not indicated. Additional imaging is not needed for localization. We spent some time discussing the diagnosis and evaluation of parathyroid disease, including the indications for surgery. At this time, further evaluation is needed prior to decision for surgery. Comorbid conditions that impact our treatment planning include: HTN, COPD, CAD, and CHF. We will plan to see the patient back in 6 month(s) in follow up with telehealth visit to discuss results of genetic testing for familial hypocalciuric hypercalcemia. It was a pleasure meeting Ms. Chandler. We appreciate the consultation. Please feel free to call with questions or concerns. Patti Vasquez MD [1] Past Medical History: Diagnosis Date Atherosclerotic heart disease of [place] coronary artery without angina pectoris Coronary artery disease Chronic or unspecified gastric ulcer with perforation (CMS/HCC) Gastric ulcer with perforation Other specified disorders of peritoneum Pneumoperitoneum Personal history of other diseases of the musculoskeletal system and connective tissue History of arthritis Personal history of other diseases of the respiratory system History of asthma [2] Past Surgical History: Procedure Laterality Date CARDIAC DEFIBRILLATOR PLACEMENT N/A Implantable Cardioverter-Defibrillator from [employer] OTHER SURGICAL HISTORY N/A Transcath Placement Of Intrathoracic Carotid Artery Stent from [employer] [3] Family History Problem Relation Name Age of Onset Hypertension Father [4] Social History Tobacco Use Smoking status: Former Types: Cigarettes Passive exposure: Current Smokeless tobacco: Never Vaping Use Vaping status: Never Used Substance Use Topics Alcohol use: Yes Drug use: Not Currently Comment: Drug use: Drug use [5] No Known Allergies [6] Current Outpatient Medications: albuterol 108 (90 Base) MCG/ACT inhaler, INHALE TWO PUFFS BY MOUTH FOUR TIMES DAILY NEEDED FOR SHORTNESS OF BREATH OR wheezing, Disp: , Rfl: Eliquis 5 MG tablet, Take 1 tablet (5 mg) by mouth 2 (two) times a day., Disp: , Rfl: Farxiga 10 MG tablet, Take 1 tablet (10 mg) by mouth 1 (one) time each day., Disp: , Rfl: folic acid (Folvite) 1 MG tablet, Take 1 tablet (1,000 mcg) by mouth 1 (one) time each day., Disp: , Rfl: magnesium oxide (Mag-Ox) 400 (240 Mg) MG tablet, Take 1 tablet (400 mg) by mouth 3 (three) times a day., Disp: , Rfl: montelukast (Singulair) 10 MG tablet, Take 1 tablet (10 mg) by mouth 1 (one) time each day in the evening., Disp: , Rfl: omeprazole (PriLOSEC) [address] capsule, Take 1 capsule (40 mg) by mouth 1 (one) time each day., Disp: , Rfl: rosuvastatin (Crestor) 10 MG tablet, Take 1 tablet (10 mg) by mouth 1 (one) time each day in the evening., Disp: , Rfl: spironolactone (Aldactone) 25 MG tablet, 1 tablet (25 mg)., Disp: , Rfl: traMADol (Ultram) 50 MG tablet, Take 1 tablet (50 mg) by mouth every 6 (six) hours if needed., Disp: , Rfl: Trelegy Ellipta 100-62.5-25 MCG/ACT aerosol powder , Inhale 1 puff., Disp: , Rfl: cetirizine (ZyrTEC) 10 MG tablet, TAKE ONE TABLET BY MOUTH EVERY DAY NEEDED FOR ALLERGY SYMPTOMS(Patient not taking: Reported on 06/02/2024), Disp: , Rfl: fluticasone (Flonase) 50 MCG/ACT nasal spray, instill 1 SPRAY IN EACH NOSTRIL EVERY DAY (Patient not taking: Reported on 06/02/2024), Disp: , Rfl: furosemide (Lasix) 20 MG tablet, Take 1 tablet (20 mg) by mouth 1 (one) time each day in the morning. (Patient not taking: Reported on 05/30/2024), Disp: , Rfl: metoprolol succinate XL (Toprol-XL) 50 MG 24 hr tablet, Take 1 tablet (50 mg) by mouth 1 (one) timeeach day. (Patient not taking: Reported on 06/02/2024), Disp: , Rfl: Cosigned by Amish Escobedo MD at 06/03/2024 7:39 AM EDT Associated attestation - Amish Escobedo MD - 06/03/2024 7:39 AM EDT I saw and evaluated the patient with the resident/fellow. I discussed the case with the resident/fellow and agree with the findings and plan as documented. I performed the entirety of the procedure(s). 58F on Eliquis with CAD, ICM s/p AICD, COPD on O2, HTN (metoprolol, lasix, spironolactone), PAD, referred with primary hyperparathyroidism. Hypercalcemia since 07/01/21 Ca 10.6. Labs 01/29/24: PTH 351, iCal 5.3, Ca 9.7, Cr 1.00, K 5.1, Alb 4.2, Phos 2.8, vitD 41.0. Labs 12/09/23: 24hr urine calcium 36 (good collection 3120mL, Cr 624.) Labs 11/20/23: 24hr urine calcium 18 (1350mL, Cr 446.) Labs 11/17/23: PTH 161, Ca 11.4, Cr 0.92, K 5.4, AlkPhos 148, vitD 17.2. DXA 12/18/23 osteoporosis T-2.9. NM SPECT/CT 01/18/24 reports left superior parathyroid candidate. Images reviewed by me with far posteriorly and inferiorly extending tubercle of [place]. There is a far posterior tiny possible left superior parathyroid candidate but I do not consider this localizing. US today without parathyroid candidates. She is a very high risk surgical candidate given her cardiac history, multiple stents, therapeutic anticoagulation, COPD on oxygen. 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 Given this possible alternate diagnosis that does not warrant operation, I will refer her to genetics for evaluation for FHH mutation in the CaSR. - Genetic testing. - Continued follow up with medical endocrinology. - Return to clinic via video visit after above. Thank you, Amish Escobedo MD, FACS wheel roller General, Endocrine & Metabolic Surgery documented in this encounter Plan of Treatment Upcoming Encounters Date Type Department Care Team (Late st Contact Info) Description 11/30/2024 2:20 PM EDT Office Visit [facility] Endocrinology [address] [place] [address] Natalia Alves MD [address] [place] [address] 12/08/2024 3:00 PM EDT Office Visit Medical Office Building Surgical Specialties [address] [place] [address] Amish Escobedo MD [address] [facility] [address] [place] [address] Scheduled Referrals Name Type Priority Associated Diagnoses Orde r Schedule Ambulatory Referral to Oncology Genetics Outpatient Referral Routine Primary hyperparathyroidism (CMS/HCC) Expected: 06/02/2024 (Approximate), Expires: 12/02/2025 documented as of this encounter Visit Diagnoses Diagnosis Primary hyperparathyroidism (CMS/HCC) Primary hyperparathyroidism documented in this encounter Additional Health Concerns Assessment Noted Time A fall risk assessment has been complete d for the patient 06/02/2024 1:58 PM EDT A Body Mass Index follow-up plan has been documented for the patient 06/02/2024 2:45 PM EDT documented as of this encounter Care Teams Vice President Planning Relationship Specialty Start Date End Date Felicitas Melara APRN [address] [place] [address] PCP - General 01/29/24 documented as of this encounter
--- OUTSIDE RECORDS SUMMARY | 2024-07-13 14:30 | XMS_ITS | Encounter Summary ---
Author Organization [facility] Address [address] [place] [id number] Care Team Providers Care Inspector And Mender Name Role Phone Felicitas Melara APRN Primary Care Provider [phone] Reason for Visit * Reason Comments Genetic Counseling * Consultation (Routine) - Closed Specialty Diagnoses / Procedures Referred By Contac t Referred To Contact Genetics Diagnoses Primary hyperparathyroidism (CMS/HCC) Amish Escobedo MD [address] [facility] [address] [place] [address] Phone: tel: fax: [facility] [address] [facility]st [place] [address] Phone: tel: fax: Referral ID Status Reason Start Date Expiration Date V isits Requested Visits Authorized [id number] Closed Specialty Services Required 06/02/2024 12/02/2025 1 1 Encounter Details Date Type Department Care Team ([facility] Contact Info) Description 07/13/2024 2:30 PM EDT Clinical Support [facility] Head[facility] Neck [facility] Respiratory [address] [facility]nd [place] [address] Kia Humphries, JOSE [address] [facility] Siria Kelley [facility] [address] [place] [address] Encounter for nonprocreative genetic counseling [...] Recorded Patient Health Questionnaire-2 Score 0 05/30/2024 [facility] - [...] Recorded In the past 12 months has [employer] electric, gas, oil, or water company threatened [...] from the original note were not included. [facility] Clinical Cancer Genetics Consultation Patient Name: [...] hormone in the setting of osteoporosis. 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 Ms. Chandler reports a personal history of an unknown gynecological cancer in year 2003 at age 38 s/p hysterectomy. Clinical summary documentation from [facility] report endocervical cancer. However, no pathology was [...] the patient's family. She denies any Ashkenazi Congregation ancestry or consanguinity. CANCER RISK ASSESSMENT AND GENETIC COUNSELING: We reviewed that Lena was referred for genetic counseling and consideration of genetic testing in light of her fisher troll line's suspicion for FamilialHypocalciuric Hypercalcemia (FHH). In regard to FHH, we discussed that this condition tends to present in adulthood with elevated levels of calcium in the blood (hypercalcemia) with uaqeog-hl-emy level of calcium in the urine (hypercalciuria). [...] cost for genetic testing for FHH/PHPTH through [facility] is $250. We also discussed the option of CancerNext-Expanded panel through [facility]. We explained possible results of genetic [...] breast MRI in addition to mammography. The [place] [employer] Society guidelines state breast cancer screening [...] 10 years beginning at age 45. The [place] Cancer Society (ACS) now recommends that adults [...] degree relative is diagnosed with prostate cancer). -Honduran males have a higher chance to have prostate cancer than males. Therefore, -Honduran males should have yearly prostate cancer screening including rectal exam and PSA blood test starting at age 40. SKIN: The patient reported a family history of skin cancer, therefore it is recommended that the patient have annual skin examinations by a reservation manager. LUNG: The NCCN says that people should talk with their doctor about the benefits and limitations oflung cancer screening if they are at least 50 years old, have smoked for 20 years or more and/or have smoked the equivalent of a gmay-jku-gms for 20 years, and if they are [...] at www.smokefree.gov. For more information, call the [facility] Lung Cancer Screening extrusion die coordinator at [phone] (228-YVM-KOWI) or [phone], or email [email or web address]. You must have a primary care [...] or concerns. I can be reached at [phone]. Total time regarding patient care was approximately 75 minutes. Written information regarding genetic testing was given to the patient at the time of their appointment. documented in this encounter Plan of Treatment Upcoming Encounters Date Type Department Care Team (Late st Contact Info) Description 11/30/2024 2:20 PM EDT Office Visit [facility] Endocrinology [address] [place] [address] Natalia Alves MD [address] [place] [address] 12/08/2024 3:00 PM EDT Office Visit Medical Office Building Surgical Specialties [address] [facility], [address] [place] [address] Amish Escobedo MD [address] [facility] [address] [place] [address] documented as of this encounter [...] documented as of this encounter Care Teams Inspector And Mender Relationship Specialty Start Date End Date Felicitas Melara APRN [address] [place] [address] PCP - General 01/29/24 documented as of this encounter
--- NOTE | 2024-07-21 14:30 | MM_ITS ---
PROCEDURE INFORMATION: Exam: MG Bilateral Screening 3D Mammography Exam date and time: 07/21/2024 2:20 PM Age: 58 years old Clinical indication: Screening examination. TECHNIQUE: Imaging protocol: Bilateral Screening tomosynthesis and 2D mammography including computer-aided detection (CAD) when performed. COMPARISON: 1. MG MM DIG SCREENING MAMM BI W/CAD 02/03/2019 10:52 AM 2. MG SCBI MM Dig screening mamm BI w/CAD 02/01/2018 9:45 AM FINDINGS: MAMMOGRAPHY: Breast composition: There are scattered areas of fibroglandular density. Mass: None. Architectural distortion: None. Calcifications: No suspicious calcifications. Asymmetric density: None. Skin thickening: None. Axillary adenopathy: None. Other findings: A power pack overlies the right chest. IMPRESSION: No mammographic evidence of malignancy. Annual screening is recommended unless otherwise clinically indicated. ASSESSMENT: BI-RADS Category 1: Negative.
--- OUTSIDE RECORDS SUMMARY | 2024-07-21 14:59 | XMS_ITS | Clinical Summary ---
Author Organization [facility] Address [address] [place] [address] Phone Care Team Providers Care Internal Corrosion Specialist Name Role Phone Fracisco DALTON, Gilson Begum Unavailable [ ] Conditions or Problems Problem Name Problem Code Onset Date Status Entry Date Provider Comment Standard Description Annotate Dermatitis due to drug AND/OR medicine taken internally 46356177 (SNOMED CT) 08/21 Active 08/21 Gilson Yap [...] subsequent encounter Cellulitis/wo und infection, chest wall 44343860 (SNOMED CT) 07/26 Active 07/26 Sherri Herndon Cellulitis of chest wall Ischemic Cardiomyopath y 847610233 (SNOMED CT) 07/26 Active 07/26 Sherri Herndon Generalized ischemic myocardial dysfunction Nicotine dependence, cigarettes 69486567 (SNOMED CT) 07/26 Active 07/26 Sherri Herndon Cigarette smoker COPD 81001925 (SNOMED CT) 07/26 Active 07/26 Sherri Herndon Chronic obstructive pulmonary disease Acute respiratory failure with hypoxia 37829789 (SNOMED CT) 07/26 Active 07/26 Sherri Herndon Acute respiratory failure Hypoalbuminem ia 162652768 (OMED CT) 07/26 Active 07/26 Sherri Herndon Hypoalbuminemia Hypocalcemia 4498570 ([facility] CT) 07/26 Active 07/26 Sherri Herndon Hypocalcemia Thrombocytope delia, secondary 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 (ICD-10-CM ) 07/26 Active 07/26 Sherri Herndon Other secondary thrombocytopenia Hyponatremia 38264937 ([facility] CT) 07/26 Active 07/26 Sherri Herndon Hyponatremia Medications Medication Instructions Start Date Stop Date Generic Name NDC Provider HYDROCODONE-ROSE TAMINOPHEN 5-325 MG TABS 1 Tab, as needed, Oral, every 8 hours hydrocodone-acet aminophen 99892201480 Faina Cantu CARVEDILOL 12.5 MG TABS 1 Tab, Oral, twice a day carvedilol 27908172903 Faina Cantu CEFDINIR 300 MG CAPS 1 Cap, Oral, every 12 hours cefdinir 53194318965 Faina Cantu DOXYCYCLINE HYCLATE 100 MG CAPS 1 Cap, Oral, twice a day doxycycline hyclate 77422711874 Faina Cantu FLORASTOR 250 MG CAPS 1 Cap, Oral, twice a day saccharomyces boulardii 35962197892 Faina Cantu FLUTICASONE PROPIONATE 50 MCG/ACT SUSP 2 [place], as needed, Nasal, Daily fluticasone propionate 54145919665 Faina Cantu FOLIC ACID 1 MG TABS 1 Tab, Oral, Daily folic acid 21970079852 Faina Cantu FUROSEMIDE 20 MG TABS 1 Tab, Oral, Daily furosemide 58204480789 Faina Cantu GABAPENTIN 600 MG TABS 1 Tab, Oral, three times a day gabapentin 01471304355 Faina Cantu LISINOPRIL 20 MG TABS 1 Tab, Oral, At Bedtime lisinopril 84520281809 Faina Cantu NICOTINE STEP 1 21 MG/24HR PT24 1 Patch, TransDermal, Daily nicotine 10998440229 Faina Cantu PANTOPRAZOLE SODIUM 40 MG TBEC 1 Tab, Oral, Daily pantoprazole 70198491745 Faina Catnu POTASSIUM CHLORIDE ER 20 MEQ CR-TABS 1 Tab, Oral, Daily potassium chloride 35957668587 Faina Cantu TOPIRAMATE 25 MG TABS 1 Tab, Oral, At Bedtime topiramate 81253185189 Faina Cantu VITAMIN D (ERGOCALCIFEROL ) 1.25 MG (37011 UT) CAPS 1 Cap, Oral, Weekly ergocalciferol (vitamin d2) 17409176952 Faina Cantu Medications Administered No information available. [...] Name Date Entry Date CPT-sl STAT Labs CPT-33612 CMP [id number] CBC with Differential 2021 CPT-00942 C- reactive protein CPT-Cooral Continue oral antibiotics 31/07/21 Vital Signs Date Name Value Unit [...] Weight Measured 142 [lb_av] weight E& M Weight Measured 142 [lb_av] weight E& M Immunizations No information available. Advance Directives Directive Description Start Date NO DIRECTIVES ESTABLISHED AT THIS TIME
--- NOTE | 2024-07-21 15:00 | CT_ITS ---
FINAL REPORT TECHNIQUE: Thin section axial CT images of the temporal bones were obtained. Coronal and sagittal reformatted images were also obtained. This study was performed with techniques to keep radiation doses as low as reasonably achievable (ALARA). Individualized dose reduction techniques using automated exposure control or adjustment of mA and/or kV according to the patient's size were employed. CLINICAL HISTORY: r/o cholesteatoma of right ear COMPARISON: None FINDINGS: Right temporal bone: The internal auditory canal has an unremarkable appearance. The inner ear structures are unremarkable. The external auditory canal has an unremarkable appearance. No abnormality is identified of the middle ear cavity. The scutum is unremarkable in appearance. The ossicles are intact. There is abnormal sclerosis of the right mastoid air cells, that may be the result of the sequela of chronic mastoiditis. No bony mass is identified. Left temporal bone: The internal auditory canal has an unremarkable appearance. The inner ear structures are unremarkable. There is really present in the inner aspect of the external auditory canal adjacent to the tympanic membrane. There is thickening noted of the tympanic membrane. No abnormality is identified of the middle ear cavity. The scutum is unremarkable in appearance. The ossicles are intact. The mastoid air cells and mastoid antrum have an unremarkable appearance. No bony mass is identified. IMPRESSION: Debris is present in the left inner portion of the external auditory canal which extends to the tympanic membrane. The left tympanic membrane is slightly thickened. The middle ear cavity is unremarkable as are the ossicles. There is abnormal sclerosis of the right mastoid air cells that may represent the sequela of chronic mastoiditis. Reviewed, Interpreted and Dictated by Clark Diggs MD Transcribed by Nancy Robb Authenticated and . [facility]
--- OUTSIDE RECORDS SUMMARY | 2024-07-21 15:00 | XMS_ITS | Encounter Summary ---
Author Organization [facility] Address [address] [place] [address] Care Team Providers Care Tetryl Dissolver Operator Name Role Phone MelaraFelicitas Delilah DENISE Primary Care Provider [phone] Encounter Details Date Type Department Care Team (Latest Contact Info) Description 07/13/2024 Travel Social History Tobacco Use Types Packs/Day Years [...] Recorded Patient Health Questionnaire-2 Score 0 05/30/2024 [facility] - Occupational Stress [...] the past 12 months has th e electric, gas, oil, or water company threatened to shut off services in your home? No 06/02/2024 Comments No Sex and Gender Information Value Date Recorded Sex Assigned at Not on file Legal Sex Female 8:21 PM EDT Gender Identity Not on file Sexual Orientation Not on file documented as of this encounter Plan of Treatment Upcoming Encounters Date Type Department Care Team ([facility] Contact Info) Description 11/30/2024 2:20 PM EDT Office Visit [facility] Endocrinology [address] [place] [address] Natalia Alves MD [address] [place] [address] 12/08/2024 3:00 PM EDT Office Visit Medical Office Building Surgical Specialties [address] [facility], [address] [place] [address] Amish Escobedo MD [address] [facility] [address] [place] [address] documented as of this encounter Visit Diagnoses Not on filedocumented in this encounter Additional Health Concerns Assessment Noted Time A fall risk assessment has been complete d for the patient 06/02/2024 1:58 PM EDT A Body Mass Index follow-up plan has been documented for the patient 06/02/2024 2:45 PM EDT documented as of this encounter Care Teams Tetryl Dissolver Operator Relationship Specialty Start Date End Date Felicitas Melara APRN [address] [place] [address] PCP - General 01/29/24 documented as of this encounter
--- OUTSIDE RECORDS SUMMARY | 2024-07-21 15:00 | XMS_ITS | Encounter Summary ---
Author Organization [facility] Address [address] [place] [address] Care Team Providers Care Project Product Manager Name Role Phone Annette Melaranicaryl Mazariegos APRN Primary Care Provider [phone] Encounter Details Date Type Department Care Team (Late st Contact Info) Description 06/02/2024 Orders Only External Location [address] [place] [address] Provider, External Social History Tobacco Use Types Packs/Day Years [...] Recorded Patient Health Questionnaire-2 Score 0 05/30/2024 [facility] of Occupat ional Health - Occupational Stress [...] Recorded In the past 12 months has e [employer], gas, oil, or water company threatened to shut off services in your home? No 06/02/2024 Comments No Sex and Gender Information Value Date Recorded Sex Assigned at Not on file Legal Sex Female 8:21 PM EDT Gender Identity Not on file Sexual Orientation Not on file documented as of this encounter Functional Status * AUDIT-C Score Answer Date of Assessment Author 0 06/02/2024 1:55 PM EDT Aj Polk * Question Answer Date of Assessment Author Q1: How often do you have a drink containing alcohol? Never 06/02/2024 1:55 PM ROSITAT Haseeb Polk Q2: How many drinks containing alcohol do you have on a typical day when you are drinking? Patient does not drink 06/02/2024 1:55 PM EDT Haseeb Polk Q3: How often do you have six or more drinks on one occasion? Never 06/02/2024 1:55 PM ROSITAT Haseeb Polk documented as of this encounter Plan of Treatment Upcoming Encounters Date Type Department Care Team (Late st Contact Info) Description 11/30/2024 2:20 PM EDT [facility] [address] [place] [address] Natalia Alves MD [address] [place] [address] 12/08/2024 3:00 PM EDT Office Visit Medical Office Building Surgical Specialties [address], [address] [place] [address] Amish Escobedo MD [address] [facility] [address] [place] [address] documented as of this encounter Procedures Procedure Name Priority Date/Time Associated Diagnosis Comments POC ULTRASOUND 06/02/2024 documented in this encounter Results * POC Imaging (06/02/2024) Anatomical Region Laterality Modality Pelvis Other 06/02/2024 us External Provider IMG POINT OF CARE ULTRASOUND F inal Result documented in this encounter Visit Diagnoses Not on filedocumented in this encounter Additional Health Concerns Assessment Noted Time A fall risk assessment has been complete d for the patient 06/02/2024 1:58 PM EDT A Body Mass Index follow-up plan has been documented for the patient 06/02/2024 2:45 PM EDT documented as of this encounter Care Teams Project Product Manager Relationship Specialty Start Date End Date Felicitas Melara APRN [address] [place] [address] PCP - General 01/29/24 documented as of this encounter
--- OUTSIDE RECORDS SUMMARY | 2024-07-21 15:00 | XMS_ITS | Encounter Summary ---
Author Organization [facility] Address [address] [place] [address] Care Team Providers Care Production Artist Name Role Phone Felicitas Melara Delilah DENISE Primary Care Provider [phone] Encounter Details Date Type Department Care Team (Latest Contact Info) Description 05/30/2024 Travel Social History Tobacco Use Types Packs/Day [...] as of this encounter Functional Status * Over the [...] EDT MorningArabella documented as of this encounter Plan of Treatment Upcoming Encounters Date Type Department Care Team (Late st Contact Info) Description 11/30/2024 2:20 PM EDT Office Visit [facility] Endocrinology [address] [place] [address] Natalia Alves MD [address] [place] [address] 12/08/2024 3:00 PM EDT Office Visit Medical Office Building Surgical Specialties [address] [place] [address] Amish Escobedo MD [address] [facility] [address] [place] [address] documented as of this encounter Visit Diagnoses Not on filedocumented in this encounter Additional Health Concerns Assessment Noted Time A Body Mass Index follow-up plan has been documented for the patient 05/30/2024 1:38 PM EDT documented as of this encounter Care Teams Production Artist Relationship Specialty Start Date End Date Felicitas Melara APRN [address] [place] [address] PCP - General 01/29/24 documented as of this encounter
--- OUTSIDE RECORDS SUMMARY | 2024-07-21 15:00 | XMS_ITS | Encounter Summary ---
Author Organization [facility] Address [address] [place] [address] Care Team Providers Care Mixer Operator Name Role Phone MelaraFelicitas Delilah DENISE Primary Care Provider [phone] Encounter Details Date Type Department Care Team (Latest Contact Info) Description 06/02/2024 Travel Social History Tobacco Use Types Packs/Day [...] Recorded Patient Health Questionnaire-2 Score 0 05/30/2024 [facility] - Occupational [...] the past 12 months has th e [email or web address], gas, oil, or water [employer] threatened to shut off services in your [...] 11/30/2024 2:20 PM EDT [facility] [address] [place] [address] Natalia Alves MD [address] [place] [address] 12/08/2024 3:00 PM EDT Office Visit Medical Office Building Surgical Specialties [address] [place] [address] Amish Escobedo MD [address] [facility] [address] [place] [address] documented as of this encounter Visit Diagnoses Not on filedocumented in this encounter Additional Health Concerns Assessment Noted Time A fall risk assessment has been complete d for the patient 06/02/2024 1:58 PM EDT A Body Mass Index follow-up plan has been documented for the patient 06/02/2024 2:45 PM EDT documented as of this encounter Care Teams Mixer Operator Relationship Specialty Start Date End Date Felicitas Melara APRN [address] [place] [address] PCP - General 01/29/24 documented as of this encounter
--- OUTSIDE RECORDS SUMMARY | 2024-07-21 15:00 | XMS_ITS | Data Portability ---
Author Organization [place] - [facility] Address [address] [place] [address] Assessment Encounter Date Assessment Date Assessment LastModified by Organization Details LastModified Time 06/12/2023 06/12/2023 PULMONARY CONSULTATION HISTORICAL : This 57 year old female was admitted to the facility on 06/05/2023 after hospitalization at [facility] where she presented with altered mental status with diminished responsiveness. EMS arrival at house patient was hypoxic with oxygen saturation in the 70's. Patient required mechanical ventilation from 05/30/2023- 024. Patient was diagnosed with acute respiratory failure with hypoxia (treated with IV Vancomycin and Cefepime), cardiogenic shock and small bilateral pleural effusions. Once stabilized she was referred here for subacute rehabilitation. SUBJECTIVE : The patient was seen and evaluated at the bedside while lying in low Romeo's position. The patient states that her breathing is good at rest. She does admit to exertional dyspnea, wheezing and intermittent cough. Denies fevers, chills, chest pain, nausea, vomiting, diarrhea. States that her appetite is good and she is sleeping well. CODE STATUS : Full Code ALLERGIES : NKDA PAST MEDICAL & SURGICAL HISTORY: Comorbidities include but are not limited to HTN, HLD, CHF, DM II, claudication, chronic respiratory failure, left ventricular thrombosis, ischemic cardiomyopathy with AICD, PVD, HFrEF, seizures. Past Surgical History: AICD placement FAMILY HISTORY: No inheritable pulmonary diseases. SOCIAL HISTORY: Denies illicit drug use or alcohol abuse. Former smoker MEDICATIONS: *See MAR for a complete medication list including dosages and frequencies. REVIEW OF SYSTEMS: *As noted in the HPI above. VITAL SIGNS T: 97.8 BP: 106/55 HR: 66 RR: 16 SpO2: 94% PHYSICAL EXAM : Awake alert oriented 3, no acute distress, non toxic in appearance. Pupils equal, round, and reactive to light and accommodation, extraocular muscles intact, sclera anicteric. Mucous membranes moist, nares patent. Neck supple, no JVD, thyromegaly, lymphadenopathy. Auscultation of lungs revealed decreased breath sounds bilaterally, expiratory wheezing. No rales, rhonchi Heart rate regular, plus S1/S2, no murmurs, rubs, gallops. Abdomen non distended, nontender, positive bowel sounds, no rebound, rigidity, or guarding. Extremities without cyanosis clubbing or edema. LABS/STUDIES REVIEWED : *Bicarbonate: *Hemoglobin: (06/10/2023): 14.6 *Hematocrit (06/10/2023): 49.6 *CXR (): ASSESSMENT & PLAN : *SOB/Wheezing: Begin Prednisone 20 mg x 7 days 1. Acute and Chronic Respiratory Failure with Hypoxia *Continue Oxygen 3 L n/c *Monitor Oxygen Saturation *Begin Omniflow per Therapy Department *IS QID and prn 2. History of Mechanical Ventilation *05/30/2023-2023 3. COPD *Continue Trelegy 100 mcg 1 puff daily; Rinse mouth after each use *Continue Duo Nebs Q6 hours prn *Continue Montelukast 10 mg daily 4. Nicotine Dependence *Smoking Cessation MEDICAL DECISION MAKING: *Hospital discharge reviewed *Progress notes reviewed *Vitals reviewed *Medications reviewed *Medications ordered *Labs reviewed *Imaging reviewed *Plan communicated with nursing staff *Plan communicated to the facility provider [email or web address] Not available 06/18/2023 20:39:14 06/19/2023 06/19/2023 PULMONARY PROGRE SS NOTE SUBJECTIVE : The patient was seen and evaluated at the bedside while lying in low Romeo's position. The patient states that her breathing is good at rest. She does admit to exertional dyspnea, and intermittent cough. Denies fevers, chills, chest pain, nausea, vomiting, diarrhea. States that her appetite is good and she is sleeping well. Oxygen via nasal cannula in use. HISTORICAL : This 57 year old female was admitted to the facility on 06/05/2023 after hospitalization at [facility] where she presented with altered mental status with diminished responsiveness. EMS arrival at house patient was hypoxic with oxygen saturation in the 70's. Patient required mechanical ventilation from 05/30/2023- 024. Patient was diagnosed with acute respiratory failure with hypoxia (treated with IV Vancomycin and Cefepime), cardiogenic shock and small bilateral pleural effusions. Once stabilized she was referred here for subacute rehabilitation. CODE STATUS : Full Code ALLERGIES : NKDA PAST MEDICAL & SURGICAL HISTORY: Comorbidities include but are not limited to HTN, HLD, CHF, DM II, claudication, chronic respiratory failure, left ventricular thrombosis, ischemic cardiomyopathy with AICD, PVD, HFrEF, seizures. FAMILY HISTORY: No inheritable pulmonary diseases. SOCIAL HISTORY: Denies illicit drug use or alcohol abuse. Former smoker MEDICATIONS: *See MAR for a complete medication list including dosages and frequencies. REVIEW OF SYSTEMS: *As noted in the HPI above. VITAL SIGNS T: 97.8 BP: 108/65 HR: 86 RR: 18 SpO2: 98% PHYSICAL EXAM : Awake alert oriented 3, no acute distress, non toxic in appearance. Pupils equal, round, and reactive to light and accommodation, extraocular muscles intact, sclera anicteric. Mucous membranes moist, nares patent. Neck supple, no JVD, thyromegaly, lymphadenopathy. Auscultation of lungs revealed decreased breath sounds bilaterally, expiratory wheezing. No rales, rhonchi Heart rate regular, plus S1/S2, no murmurs, rubs, gallops. Abdomen non distended, nontender, positive bowel sounds, no rebound, rigidity, or guarding. Extremities without cyanosis clubbing or edema. LABS/STUDIES REVIEWED : *Bicarbonate: 38 (06/10/2023) 36 (06/09/2023) *Hemoglobin: 14.6 (06/10/2023) 14.8 (06/09/2023) *CT Chest (05/29/2023): Atelectasis seen in the lower lobes bilaterally. Large right pleural effusion. Cardiomegaly with anterior pericardial. ASSESSMENT & PLAN : *SOB/Wheezing: Begin Prednisone 20 mg x 7 days (to be completed 06/20/2023) 1. Acute and Chronic Respiratory Failure with Hypoxia *Continue Oxygen 3 L n/c *Monitor Oxygen Saturation *Continue Omniflow per Therapy Department *IS QID and prn 2. History of Mechanical Ventilation *05/30/2023-2023 3. COPD *Continue Trelegy 100 mcg 1 puff daily; Rinse mouth after each use *Continue Duo Nebs Q6 hours prn *Continue Montelukast 10 mg daily 4. Nicotine Dependence *Smoking Cessation MEDICAL DECISION MAKING: *Progress notes reviewed *Vitals reviewed *Medications reviewed *Labs reviewed *Imaging reviewed *Plan communicated with nursing staff *Plan communicated to the facility provider [email or web address] Not available 06/19/2023 12:20:39 Plan of Treatment Reminders Order Date Submit [...] Modified By Organization Details Last Modified Time 06/19/2023 [id number] CONSENT FOR ENROLLMENT IN PRINCIPAL CARE MANAGEMENT: The patient agrees to be enrolled in the Principal Care Management (PCM) and Remote Patient Monitoring programs. The patient has been counselled regarding availability of services and cost sharing responsibilities. The patient was informed of their right to revoke PCM services at any time and that services will terminate at the end of the current month. The patient has been counselled that they may be billed for a portion of PCM services even though PCM services will not involve a [id number] meeting with a provider. [email or web address] Not available 06/19/2023 10:02:50 Reason for Referral None Reported. Medical Equipment None Reported. Allergies No known drug allergies Medications Name Sig Start Date Stop Date Status Note LastModified by Organization Details LastModified Time amoxicillin 500 mg capsule TAKE ONE CAPSULE BY MOUTH EVERY 8 HOURS FOR 10 DAYS -- FINISH ALL MEDICINE -- active Not Available Not Available Not Available promethazine -DM 6.25 mg-15 mg/5 mL oral syrup TAKE 1 TEASPOONFUL (5 ML) BY MOUTH EVERY 6 HOURS NEEDED FOR cough MAY CAUSE DROWSINESS active Not Available Not Available N ot Available potassium chloride ER 10 mEq capsule,exte nded release TAKE ONE CAPSULE BY MOUTH EVERY DAY IN THE MORNING active Not Available Not Available No t Available prednisone 10 mg tablet TAKE TWO TABLETS BY MOUTH ONCE DAILY FOR 2 DAYS, TAKE ONE TABLET ONCE DAILY FOR 2 DAYS, THEN TAKE 1/2 TABLET ONCE DAILY FOR 2 DAYS active Not Available Not Available N ot Available gabapentin 600 mg tablet TAKE ONE TABLET BY MOUTH EVERY 8 HOURS active Not Available Not Available No t Available ipratropium 0.5 mg-albuterol 3 mg (2.5 mg base)/3 mL nebulization soln active Not Available Not Available Not Available azithromycin 250 mg tablet TAKE 2 TABLETS BY MOUTH ON DAY 1, THEN TAKE 1 TABLET DAILY ON DAYS 2-5 active Not Available Not Available No t Available fluconazole 150 mg tablet TAKE ONE TABLET BY MOUTH A ONE-TIME DOSE active Not Available Not Available No t Available metoprolol succinate ER 50 mg tablet,exten ded release 24 hr TAKE ONE TABLET BY MOUTH EVERY EVENING active Not Available Not Available No t Available hydrocodone 5 mg-acetamino phen 325 mg tablet TAKE ONE TABLET BY MOUTH EVERY TWELVE HOURS NEEDED active Not Available Not Available No t Available metoprolol succinate ER 100 mg tablet,exten ded release 24 hr TAKE 1/2 TABLET BY MOUTH EVERY EVENING active Not Available Not Available No t Available topiramate 25 mg tablet TAKE ONE TABLET BY MOUTH EVERY EVENING active Not Available Not Available No t Available clopidogrel 75 mg tablet TAKE ONE TABLET BY MOUTH EVERY DAY active Not Available Not Available No t Available pantoprazole 40 mg tablet,delay ed release TAKE ONE TABLET BY MOUTH EVERY DAY active Not Available Not Available No t Available lisinopril 10 mg tablet TAKE ONE TABLET BY MOUTH EVERY DAY active Not Available Not Available No t Available folic acid 1 mg tablet TAKE ONE TABLET BY MOUTH EVERY DAY active Not Available Not Available No t Available montelukast 10 mg tablet TAKE ONE TABLET BY MOUTH EVERY DAY IN THE EVENING active Not Available Not Available No t Available furosemide 20 mg tablet TAKE ONE TABLET BY MOUTH EVERY DAY IN THE MORNING active Not Available Not Available No t Available levofloxacin 500 mg tablet TAKE ONE TABLET BY MOUTH ONCE DAILY FOR 10 DAYS -- FINISH ALL MEDICINE -- active Not Available Not Available Not Available fluticasone propionate 50 mcg/actuatio n nasal spray,suspen saulo instill 1 SPRAY IN EACH NOSTRIL EVERY DAY active Not Available Not Available No t Available rosuvastatin 10 mg tablet TAKE ONE TABLET BY MOUTH EVERY EVENING active Not Available Not Available No t Available Eliquis 5 mg tablet TAKE ONE TABLET BY MOUTH TWICE DAILY active Not Available Not Available No t Available Vitals None Recorded Social History None recorded. Functional Status None recorded. Mental Status None recorded. Family History Nothing Reported. Medical History No medical history recorded. Gynecological HistoryNo gynecological history recorded. Obstetrics History GPAL:G 0 P 0 0 0 0 Past Encounters Encounter ID Performer Location Encounter Start Date Encounter Closed Date Diagnosis/Indication Diagnosis SNOMED-CT Code Diagnosis ICD10 Code Diagnosis Note [id number] Dodie Cummins NP [facility] [address] [place] [address] 06/12/2023 20:51:54 06/19/2023 11:40:30 [id number] Dodie Cummins NP [facility] [address] [place] [address] 06/19/2023 09:57:05 06/22/2023 10:44:29 Health Concerns Section Related Observation LastModified by Organization Detai ls LastModified Time None Recorded Concern Status LastModified by Organization Details LastModified Time None Recorded Advance Directives Directive None Recorded Payers Insurance Date Sequence Insurance Name Policy Number Policy Harding Covered Member ID Harding Member ID Guarantor Name 06/19/2023 1 [employer] (MEDICARE REPLACEMENT/ ADVANTAGE - HMO) Lena Chandler [id number] Lena Chandler 06/12/2023 2 [place] Lena Chandler [id number] Lena Chandler OBGyn Episode No OBEpisode recorded.
--- OUTSIDE RECORDS SUMMARY | 2024-07-21 15:00 | XMS_ITS | Encounter Summary ---
Author Organization [facility] Address [address] [place] [address] Care Team Providers Care Registered Route Associate Name Role Phone MelaraFelicitas jorge Delilah DENISE Primary Care Provider [phone] Reason for Visit * Reason Onset Date Comments Genetic Counseling Intake 07/06/2024 Encounter Details Date Type Department Care Team ([facility] st Contact Info) Description 07/06/2024 Telephone PAV Genetic Counseling [address] [facility], 1st [place] [address] Kia Humphries, GC [address] [facility] [address] [place] [address] Genetic Counseling Intake Social History Tobacco Use Types Packs/Day Years [...] Recorded Patient Health Questionnaire-2 Score 0 05/30/2024 [facility] - Occupational [...] the past 12 months has th e [employer], oil, or water [employer] threatened to shut off services in your home? No 06/02/2024 Comments No Sex and Gender Information Value Date Recorded Sex Assigned at Not on file Legal Sex Female 8:21 PM EDT Gender Identity Not on file Sexual Orientation Not on file documented as of this encounter Miscellaneous Notes * Telephone Encounter - Pedro Aguilar - 07/06/2024 2:58 PM EDT Genetic Counseling Utilization Management Um Nurse called patient to obtain family history information prior to their visit. Patient unable to provide info at this time so [facility] reminded patient of their upcoming genetic counseling appointment in person and received verbal confirmation they would be attending. Asked patient to please fill out paper family history questionnaire before their visit. documented in this encounter Plan of Treatment Upcoming Encounters Date Type Department Care Team (Late st Contact Info) Description 11/30/2024 2:20 PM EDT Office Visit [facility] Endocrinology [address] [place] [address] Natalia Alves MD [address] [facility] [address] [place] [address] 12/08/2024 3:00 PM EDT Office Visit Medical Office Building Surgical Specialties [address] , [address] [place] [address] Amish Escobedo MD [address] [facility] [address] [place] [address] documented as of this encounter Visit Diagnoses Not on filedocumented in this encounter Additional Health Concerns Assessment Noted Time A fall risk assessment has been complete d for the patient 06/02/2024 1:58 PM EDT A Body Mass Index follow-up plan has been documented for the patient 06/02/2024 2:45 PM EDT documented as of this encounter Care Teams Registered Route Associate Relationship Specialty Start Date End Date Felicitas Melara APRN [address] [place] [address] PCP - General 01/29/24 documented as of this encounter
--- OUTSIDE RECORDS SUMMARY | 2024-07-21 15:00 | XMS_ITS | Clinical Summary ---
Author Organization [facility] Address [address] [place] [address] Care Team Providers Care Traffic Rate Computer Name Role Phone Felicitas Melara APRN Primary Care Provider [phone] Allergies No known active allergies Medications albuterol 108 (90 Base) MCG/ACT inhaler INHALE TWO PUFFS BY MOUTH FOUR TIMES DAILY NEEDED FOR SHORTNESS OF BREATH OR wheezing Active Eliquis 5 MG tablet Take 1 tablet (5 mg) by mouth 2 (two) times a day. Active cetirizine (ZyrTEC) 10 MG tablet TAKE ONE TABLET BY MOUTH EVERY DAY NEEDED FOR ALLERGY SYMPTOMS 4 Active Farxiga 10 MG tablet Take 1 tablet (10 mg) by mouth 1 (one) time each day. 4 Active furosemide (Lasix) 20 MG tablet Take 1 tablet (20 mg) by mouth 1 (one) time each day in the morning. 5 Active magnesium oxide (Mag-Ox) 400 (240 Mg) MG tablet Take 1 tablet (400 mg) by mouth 3 (three) times a day. 4 Active metoprolol succinate XL (Toprol-XL) 50 MG 24 hr tablet Take 1 tablet (50 mg) by mouth 1 (one) time each day. 4 Active traMADol (Ultram) 50 MG tablet Take 1 tablet (50 mg) by mouth every 6 (six) hours if needed. 4 Active rosuvastatin (Crestor) 10 MG tablet Take 1 tablet (10 mg) by mouth 1 (one) time each day in the evening. 4 Active Trelegy Ellipta 100-62.5-25 MCG/ACT aerosol powder Inhale 1 puff. Active fluticasone (Flonase) 50 MCG/ACT nasal spray instill 1 SPRAY IN EACH NOSTRIL EVERY DAY Active folic acid (Folvite) 1 MG tablet Take 1 tablet (1,000 mcg) by mouth 1 (one) time each day. Active montelukast (Singulair) 10 MG tablet Take 1 tablet (10 mg) by mouth 1 (one) time each day in the evening. Active omeprazole (PriLOSEC) [address] capsule Take 1 capsule (40 mg) by mouth 1 (one) time each day. Active spironolactone (Aldactone) 25 MG tablet 1 tablet (25 mg). Active Active Problems Problem Noted Date Diagnosed Date Hyperparathyroidism 06/02/2024 Acute exacerbation of CHF (congestive heart fail ure) 06/01/2024 On mechanically assisted ventilation 06/01/2024 PAD (peripheral artery disease) 06/01/2024 Pleural effusion, bilateral 06/01/2024 Pneumonia 06/01/2024 Primary hyperparathyroidism 01/29/2024 Unspecified fracture of firs t lumbar vertebra, initial encounter for closed fracture 12/28/2023 Dorsalgia, unspecified 12/28/2023 Chronic midline low back pain 12/28/2023 Osteoporosis without current pathological fractu re 12/28/2023 Seizure 06/08/2023 Abnormal gait 06/05/2023 Acute on chronic respiratory failure with hypoxe david 06/05/2023 Altered mental status 06/05/2023 Asthenia 06/05/2023 Cardiogenic shock 06/05/2023 Cardiomyopathy 06/05/2023 Chronic combined systolic an d diastolic congestive heart failure 06/05/2023 Complement deficiency disease 06/05/2023 Difficulty walking 06/05/2023 Disorder of immune system 06/05/2023 Disorder of respiratory system 06/05/2023 Essential hypertension 06/05/2023 Congestive heart failure 06/05/2023 Generalized ischemic myocardial dysfunction 05/11 Late effects of cerebrovascular disease 06/05/19 Unsteadiness on feet 06/05/2023 Chronic respiratory failure 05/28/2023 Left ventricular thrombus 05/28/2023 Venous insufficiency of both lower extremities 0 05/28/2023 Opioid dependence 03/30/2023 Spinal stenosis in cervical region 11/11/2022 Neck pain 05/13/2022 Neuropathic pain 05/13/2022 Pain in right arm 05/13/2022 Chronic obstructive pulmonary disease 11/19/2021 Nicotine dependence 11/19/2021 Osteoarthritis of both knees 11/19/2021 Pain in both knees 11/19/2021 Radicular pain 11/19/2021 Cyst of vulva 09/28/2015 Overview (06/01/2024): From Automated Load;Provider: Ashia Vasquez;Status: Active 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 Overview (06/01/2024): From Automated Load;Provider: Ashia Vasquez;Status: Active Atypical squamous cells of u ndetermined significance (ASCUS) on Papanicolaou smear of cervix 01/23/2015 Overview (06/01/2024): Provider: Ramy Hawk;Status: Active Peptic ulcer 05/01/2014 Encounters Date Type Department Care Team Description 07/13/2024 2:30 PM EDT Clinical Support [facility] [address] [facility], [address]nd [place] [address] Kia Humphries GC Encounter for nonprocreative genetic counseling (Primary Dx) 07/13/2024 Travel 07/06/2024 Telephone PAV [facility] Genetic Counseling [address] [facility], [address]st [place] [address] Kia Humphries GC Genetic Counseling Intake 06/02/2024 2:00 PM EDT Consult Medical Office Building Surgical Specialties [address] [facility], [address] [place] [address] Amish Escobedo MD Primary hyperparathyroidism (CMS/HCC) 06/02/2024 Orders Only External Location [address] [place] [address] Provider, External 06/02/2024 Travel 06/01/2024 Abstract Medical Office Building Surgical Specialties [address] [facility], [address] [place] [address] Gamaliel Zaragoza 05/30/2024 1:20 PM EDT Office Visit [facility] Endocrinology [address] [place] [address] Natalia Alves MD Primary hyperparathyroidism (CMS/HCC) (Primary Dx) 05/30/2024 Travel from Last 3 Months Immunizations Immunization Administration Dates Next Due Influenza, Injectable, MDCK, trivalent, PF 12/14 Influenza, injectable, MDCK, preservative free, quadrivalent 01/29/2021 PPD Skin Test (TB Skin Test) 06/12/2023,06/05/19 Tdap 01/29/2021 Zoster, Recombinant 02/27/2020 Family History Medical History Relation Name Comments Hypertension Father Relation Name Status Comments Father Social History Tobacco Use Types Packs/Day Years Used Date Smoking Tobacco: Former Cigarettes Passive Smoke Exposure: Current Smokeless Tobacco: Never Tobacco Cessation:Counseling Given: Not Answered Alcohol Use Standard Drinks/Week Comments Yes 0 [...] Recorded Patient Health Questionnaire-2 Score 0 05/30/2024 [facility] - Occupational Stress [...] on file Sexual Orientation Not on file Last Filed Vital Signs Vital Sign Reading [...] Mass Index 22.24 06/02/2024 1:52 PM EDT Plan of Treatment Upcoming Encounters Date Type Department Care Team (Late st Contact Info) Description 11/30/2024 2:20 PM EDT Office Visit [facility] Endocrinology [address] [place] [address] Natalia Alves MD [address] [place] [address] 12/08/2024 3:00 PM EDT Office Visit Medical Office Building Surgical Specialties [address] [facility], [address] [place] [address] Amish Escobedo MD [address] [facility] [address] [place] [address] Health Maintenance Due Date Last Done Comments [facility]-HIV Screening 1964 [facility]-Hepatitis C Screening 1964 [facility]-Medicare Annual Wellness (AWV) 1965 [facility]-Infant/Child/Adol SDOH Screenings 1964 [facility]- SDOH Screenings 1982 [facility]-Adult SDOH Screenings 1982 [facility]-Hepatitis B Vaccines (1 of 3 - 19+ 3-dose series) 07/28/1983 [facility]-Pneumococcal Vaccine: 50 + Years (1 of 2 - PCV) 07/28/1983 [facility]-Pap Smear 1985 [facility]-Cervical Cancer Screening 1994 [facility]-HPV/Cotest 1994 CT Colonography 2009 Colonoscopy 2009 FIT-DNA 2009 FIT 2009 FOBT 2009 Sigmoidoscopy 2009 [facility]-Colorectal Cancer Screening 2009 [facility]-Breast Cancer Screening 2014 [facility]-Zoster Vaccines (2 of 2) 04/23/2020 02/27/2020 [id number] Vaccine (3 - 2023- season) 2023 12/22/2020, 04/28/2020 [facility]-Bone Density Scan 12/17/2024 12/18/2023 , 11/30/2023 [facility]-Depression Screening 05/30/2025 05/30/2024 [facility]-DTaP,Tdap,and Td Vaccine s (2 - Td or Tdap) 01/29/2031 01/29/2021 [facility]-Influenza Vaccine Completed 12/15/2023 , 01/29/2021 HPV Vaccines Aged Out No longer eligi ble based on patient's age to complete this topic [facility]-HIB Vaccines Aged Out No longer e ligible based on patient's age to complete this topic [facility]-Hepatitis A Vaccines Aged Out No longer eligible based on patient's age to complete this topic [facility]-IPV Vaccines Aged Out No longer e ligible based on patient's age to complete this topic [facility]-Rotavirus Vaccines Aged Out No lo nger eligible based on patient's age to complete this topic Procedures Procedure Name Priority Date/Time Associated Diagnosis Comments POC ULTRASOUND 06/02/2024 DEXA BONE DENSITY Routine 12/18/2023 10:36 AM EST from Last 3 Months or Most Recently Relevant to Health Maintenance Results * POC Imaging (06/02/2024) Anatomical Region Laterality Modality Pelvis Other 06/02/2024 us External Provider IMG POINT OF CARE ULTRASOUND F inal Result * Dexa Bone Density (12/18/2023 10:36 AM EST) Anatomical Region Laterality Modality L-spine Radiographic Carlee ging us Natalia Alves MD IMG DXA PROCEDURES Final Resul t from Last 3 Months or Most Recently Relevant to Health Maintenance Insurance [facility] MEDICARE [place] [id number] Care Teams Traffic Rate Computer Relationship Specialty Start Date End Date Felicitas Melara APRN [address] [place] [address] PCP - General 01/29/24
--- OUTSIDE RECORDS SUMMARY | 2024-07-21 15:00 | XMS_ITS ---
Author Organization [facility] Team Providers Care Family Assessment Worker Name Role Phone Dodie Cummins Unavailable Unavailable Ludivina Retana Unavailable Unavailable Wen Chadwick Unavailable Unavailable Julieta Guardado Unavailable Allergies and adverse reactions No Known Allergies Care Team Name Role Address Phone Organization Dates Ludivina Retana PCP [address] [place] [address], [facility] (Office): [facility] 06/05/2023 - 06/22/2023 Dodie Cummins [address] (Office): : [facility] 06/05/2023 - 06/22/2023 Wen Chadwick [address] [place] [address] 06/05/2023 - 06/22/2023 Juileta Guardado [address] [place] [address] (Office): : [facility] 06/05/2023 - 06/22/2023 Immunizations Immunization Status Vaccine Details Vaccine Code CodeSystem Date Notes TB 2 Step Mantoux Skin Test completed tuberculin skin test; unspecified formulation lotNumber: [id number] expiry: 01/09/2025 Mfg: Aplisil 5 TU/0.1 ML//o Given 0.1 ml Left Forearm subcutaneously Step 2 of Multi-step with next step required 98 CVX created date: 06/13/2023 consent date: 06/13/2023 administere d date: 06/12/2023 TB 2 Step Mantoux Skin Test completed tuberculin skin test; unspecified formulation lotNumber: [id number] expiry: 01/09/2025 Mfg: Apisol 5tu/0.1ml Given 0.1 ml Left Forearm subcutaneously Step 1 of Multi-step with next step required 98 CVX created date: 06/06/2023 consent date: 06/05/2023 administere d date: 06/05/2023 Mental Status Section Date Assessment Total Score Description 06/22/2023 BIMS 14 cognitively int act CAM 0 No delirium ind icated PHQ-9 12 moderate depres saulo 06/08/2023 BIMS 14 cognitively int act CAM 0 No delirium ind icated PHQ-9 12 moderate depres saulo Problems Problem # Description Date of onset Resolved Date Code CodeSystem Concern Status 1 UNSPECIFIED CONVULSIONS 06/08/[address] active 2 ACUTE AND CHRONIC RESPIRATORY FAILURE WITH HYPOXIA 06/05/[address] active 3 ACUTE ON CHRONIC COMBINED SYSTOLIC (CONGESTIVE) AND DIASTOLIC (CONGESTIVE) HEART FAILURE 06/05/[address] active 4 ALTERED MENTAL STATUS, UNSPECIFIED 06/05/[address] active 5 CARDIOGENIC SHOCK 06/05/[address] active 6 CARDIOMYOPATHY, UNSPECIFIED 06/05/[address] active 7 DEFECTS IN THE COMPLEMENT SYSTEM 06/05/[address] active 8 DIFFICULTY IN WALKING, NOT ELSEWHERE CLASSIFIED 06/05/[address] active 9 ESSENTIAL (PRIMARY) HYPERTENSION 06/05/[address] active 10 HEART FAILURE, UNSPECIFIED 06/05/[address] active 11 ISCHEMIC CARDIOMYOPATHY 06/05/[address] active 12 LEFT VENTRICULAR FAILURE, UNSPECIFIED 06/05/[address] active 13 NICOTINE DEPENDENCE, CIGARETTES, UNCOMPLICATED 06/05/[address] active 14 OTHER ABNORMALITIES OF GAIT AND MOBILITY 06/05/[address] active 15 OTHER SPECIFIED DISORDERS INVOLVING THE IMMUNE MECHANISM, NOT ELSEWHERE CLASSIFIED 06/05/[address] active 16 PRESENCE OF AUTOMATIC (IMPLANTABLE) CARDIAC DEFIBRILLATOR 06/05/[address] active 17 RESPIRATORY DISORDERS IN DISEASES CLASSIFIED ELSEWHERE 06/05/[address] active 18 RESPIRATORY FAILURE, UNSPECIFIED WITH HYPOXIA 06/05/[address] active 19 TYPE 2 DIABETES MELLITUS WITHOUT COMPLICATIONS 06/05/[address] active 20 UNSPECIFIED SEQUELAE OF OTHER CEREBROVASCULAR DISEASE 06/05/[address] active 21 UNSPECIFIED SYSTOLIC (CONGESTIVE) HEART FAILURE 06/05/[address] active 22 UNSTEADINESS ON FEET 06/05/[address] active 23 VENOUS INSUFFICIENCY (CHRONIC) (PERIPHERAL) 06/05/[address] active 24 WEAKNESS 06/05/[address] active Reason for Referral No Reasons for Referral Entered Social History Social History Observation Description Start Date End Date Code Code System Current Smoking Status Tobacco smoking consumption unknown 564855566 SNOMED CT Sex Assigned At Female 1965 98637-7 [facility] Gender Identity Vital Signs Code Code System Vitals Name Values and Units Timing Information 86701-6 [facility] Pain Level Value=0.0 06/21/2023 48042-9 [facility] O2 % BldC Oximetry Value=94.0 Units= % 06/21/2023 9279-1 [facility] Respiratory Rate Value=18.0 Units=/m in 06/21/2023 8462-4 [facility] Blood Pressure-Diastolic Value=62 Un its=mmHg 06/21/2023 8480-6 [facility] Blood Pressure-Systolic Jmjsy=372 Un its=mmHg 06/21/2023 8310-5 [facility] Body Temperature Value=97.2 Units= F 06/21/2023 8867-4 [facility] Heart rate Value=68.0 Units=/min 01/2024 2339-0 [facility] Blood Sugar Pqhfw=390.0 Units=mg/dL 06/13/2023 22862-8 [facility] Weight Guwiy=043.8 Units=Lbs 03/2023 8302-2 [facility] Height Value=67.0 Units=Inches 06/06/2023
--- OUTSIDE RECORDS SUMMARY | 2024-07-21 15:00 | XMS_ITS | Data Portability ---
Author Organization [place] - [facility] [place] & AMY Faria ADMIN Address [address] [place] [id number] Care Team Providers Care Expanded Function Dental Assistant Name Role Phone PHONG WILLIAM Referring Provider [phone] Assessment Encounter Date Assessment Date Assessment LastModified by Organization Details LastModified Time 08/25/2022 08/25/2022 Mrs. Chandler was referred by Dr. William for osteoarthritis with chong for 5+ years. The patient complains of low back pain with radiation down the BLE and bilateral knee pain. She has previously seen by Dr. Gallardo with unsuccessful interventional treatment. The patient has a cardiac history, including AMI with stent placement, and a defibrillator. She takes daily Eliquis and Plavix managed by cardiology. The patient has a history of COPD with 20+ smoking years. Patient presents today for medication refill. The patient states that the current medication regimen is effective and well-tolerable, allowing her to remain functional. She has recovered from pacemaker placement and continues to have RUE pain with radiating to the hand and numbness/tingling in the fingers. Dr. Hernandez gave her a steroid injection in her right shoulder which did not improve her pain. The patient also continues to complain of bilateral knee pain with interest in Supartz once medical problems are stablized. Pain today is 7/10 I reviewed cervical spine from 06/12/22 which showed multilevel disc disease with the worst being mod/severe narrowing of C5-6. Severe right and mod/severe left foraminal stenosis at C3-C4. We will schedule CEI C7-T1 today as the neck is more painful than the knees. Patient will need cardiac clearance to come off of her Eliquis and Plavix for the injection. Patient still has a prescription for hydrocodone and gabapentin waiting at the pharmacy. We will see her back in one month for med refill - Schedule CEI C7-T1 - f/up post injection - f/up one month med refill - Address knee pain after cervical pain is improved. I counseled the patient extensively and informed of the risks of the procedure, including the risk of paralysis, nerve damage, respiratory arrest, arrhythmias, stroke, weakness, and infection, which although very low, could result in or disability. The patient acknowledged to me that they understand and accept these risks. RN EDUCATION Extensive coordination of care provided by RN to educate patient on upcoming procedure and to coordinate obtaining extensive incoming medical records. -------- I have discussed in great detail our potential treatment options which would include a rehabilitative approach to care. This program would include medication management, Physical Therapy, consideration for interventional procedures as appropriate, and lifestyle modification (diet, weight loss, exercise, smoking/tobacco cessation, holistic approach including meditation and yoga). The patient understands and agrees prior to proceeding with this plan. _ __ __ __ __ __ __ __ __ __ __ __ __ __ __ __ __ __ __ __ __ __ __ __ __ __ __ __ _ RECORDS REVIEW: As per clinic policy, we will have the patient sign a release to obtain previous imaging and clinical notes. _ __ __ __ __ __ __ __ __ __ __ __ __ __ __ __ __ __ __ __ __ __ __ __ __ __ __ __ _ PSYCH: Pain affecting Neuro-psych behavior was discussed. Discussed about pain psychological counseling as a part of the multimodal approach to pain treatment. _ __ __ __ __ __ __ __ __ __ __ __ __ __ __ __ __ __ __ __ __ __ __ __ __ __ __ __ _ REHABILITATION: Discussed with the patient the importance of diet, daily physical activity and PT. Discussed with the patient the need to be scheduled for physical therapy since physical therapy will prolong the benefits of the procedure and interventions. _ __ __ __ __ __ __ __ __ __ __ __ __ __ __ __ __ __ __ __ __ __ __ __ __ __ __ __ _ GISELLE: [id number] I have reviewed patient's GISELLE report prior to prescribing Schedule II, III, and IV medications that require review by law. [place] PDMP reviewed and appropriate. UDS reviewed and consistent with current regimen. Controlled substance contract reviewed and signed line by line. Risks of medication therapy including respiratory depression, , and hazards of operating heavy machinery including automobiles discussed at length. Patient given information with six opioid/Controlled substance safety steps: 1. Never take a prescription pain medication unless it is prescribed for you. 2. Do not take pain medicine with alcohol. 3. Do not take more doses than prescribed. 4. Use with other sedative or anti-anxiety medications can be dangerous. 5. Avoid using prescription pain medication to help you fall asleep. 6. Lock up prescription pain medications. Opioid Contract Discussion: The patient was given a copy of the Clinic Prescription Drug Agreement and was counseled extensively regarding its contents. The patient is to take their pain medication exactly as prescribed. No increases in medications are to be without first contacting the office and explaining the reason behind the increase and getting approval to do so. The patient is not to obtain medications from other providers without first notifying the other provider what they obtain from this clinic and need to notify this clinic when they obtain pain medications from other providers. The patient is to bring their pain medications to each and every office visit for pill counts to monitor compliance for their safety. The patient is subject to periodic urine drug testing at the discretion of the provider as well as state and federal regulations. The patient was warned of the risks and benefits of taking opioid pain medication, the risk of addiction, the risk of withdrawal and the differences. [email or web address] Not available 08/26/2022 09:40:08 09/29/2022 09/29/2022 Mrs. Chandler was referred by Dr. William for osteoarthritis with chong for 5+ years. The patient complains of low back pain with radiation down the BLE and bilateral knee pain. She has previously seen by Dr. Gallardo with unsuccessful interventional treatment. The patient has a cardiac history, including AMI with stent placement, and a defibrillator. She takes daily Eliquis and Plavix managed by cardiology. The patient has a history of COPD with 20+ smoking years. Patient presents today for medication refill. She is currently prescribed Hydrocodone APAP 5-325mg Q8 prn and Gabapentin 600mg Q8. The patient states that the current medication regimen is effective and well-tolerable, allowing her to remain functional. I will refill for 2 months. She has recovered from pacemaker placement and continues to have RUE pain with radiating to the hand and numbness/tingling in the fingers. Dr. Hernandez gave her a steroid injection in her right shoulder which did not improve her pain. The patient also continues to complain of bilateral knee pain with interest in Supartz once medical problems are stablized. Pain today is 7/10 I previously reviewed cervical spine from 06/12/22 which showed multilevel disc disease with the worst being mod/severe narrowing of C5-6. Severe right and mod/severe left foraminal stenosis at C3-C4. The patient was previously scheduled for a CEI C7-T1, but missed the injection appointment related to a in the family. We will reschedule this procedure. The patient will need cardiac clearance to come off her Eliquis and Plavix for the injection. * Re-schedule CEI C7-T1 * Follow Up: Post injection * Refill: Hydrocodone APAP 5-325mg Q8 prn #90 (Refill x1) * Refill: Gabapentin 600mg Q8 #90 (Refill x1) * Follow Up: 2 months for med refill * Address knee pain after cervical pain is improved. I counseled the patient extensively and informed of the risks of the procedure, including the risk of paralysis, nerve damage, respiratory arrest, arrhythmias, stroke, weakness, and infection, which although very low, could result in or disability. The patient acknowledged to me that they understand and accept these risks. RN EDUCATION Extensive coordination of care provided by RN to educate patient on upcoming procedure and to coordinate obtaining extensive incoming medical records. -------- I have discussed in great detail our potential treatment options which would include a rehabilitative approach to care. This program would include medication management, Physical Therapy, consideration for interventional procedures as appropriate, and lifestyle modification (diet, weight loss, exercise, smoking/tobacco cessation, holistic approach including meditation and yoga). The patient understands and agrees prior to proceeding with this plan. _ __ __ __ __ __ __ __ __ __ __ __ __ __ __ __ __ __ __ __ __ __ __ __ __ __ __ __ _ RECORDS REVIEW: As per clinic policy, we will have the patient sign a release to obtain previous imaging and clinical notes. _ __ __ __ __ __ __ __ __ __ __ __ __ __ __ __ __ __ __ __ __ __ __ __ __ __ __ __ _ PSYCH: Pain affecting Neuro-psych behavior was discussed. Discussed about pain psychological counseling as a part of the multimodal approach to pain treatment. _ __ __ __ __ __ __ __ __ __ __ __ __ __ __ __ __ __ __ __ __ __ __ __ __ __ __ __ _ REHABILITATION: Discussed with the patient the importance of diet, daily physical activity and PT. Discussed with the patient the need to be scheduled for physical therapy since physical therapy will prolong the benefits of the procedure and interventions. _ __ __ __ __ __ __ __ __ __ __ __ __ __ __ __ __ __ __ __ __ __ __ __ __ __ __ __ _ GISELLE: [id number] I have reviewed patient's GISELLE report prior to prescribing Schedule II, III, and IV medications that require review by law. [place] PDMP reviewed and appropriate. UDS reviewed and consistent with current regimen. Controlled substance contract reviewed and signed line by line. Risks of medication therapy including respiratory depression, , and hazards of operating heavy machinery including automobiles discussed at length. Patient given information with six opioid/Controlled substance safety steps: 1. Never take a prescription pain medication unless it is prescribed for you. 2. Do not take pain medicine with alcohol. 3. Do not take more doses than prescribed. 4. Use with other sedative or anti-anxiety medications can be dangerous. 5. Avoid using prescription pain medication to help you fall asleep. 6. Lock up prescription pain medications. Opioid Contract Discussion: The patient was given a copy of the Clinic Prescription Drug Agreement and was counseled extensively regarding its contents. The patient is to take their pain medication exactly as prescribed. No increases in medications are to be without first contacting the office and explaining the reason behind the increase and getting approval to do so. The patient is not to obtain medications from other providers without first notifying the other provider what they obtain from this clinic and need to notify this clinic when they obtain pain medications from other providers. The patient is to bring their pain medications to each and every office visit for pill counts to monitor compliance for their safety. The patient is subject to periodic urine drug testing at the discretion of the provider as well as state and federal regulations. The patient was warned of the risks and benefits of taking opioid pain medication, the risk of addiction, the risk of withdrawal and the differences. [email or web address] Not available 09/29/2022 16:19:40 11/24/2022 11/24/2022 Mrs. Chandler was referred by Dr. William for osteoarthritis with chong for 5+ years. The patient complains of low back pain with radiation down the BLE and bilateral knee pain. She has previously seen by Dr. Gallardo with unsuccessful interventional treatment. The patient has a cardiac history, including AMI with stent placement, and a defibrillator. She takes daily Eliquis and Plavix managed by cardiology. The patient has a history of COPD with 20+ smoking years. Patient presents today for medication refill and f/up CEI. The patient states that the current medication regimen is effective and well-tolerable, allowing her to remain functional. She reports that the CEI was successful in improving her neck and BUE pain >80% with improved function. She reports she was able to go to [place] [facility] with her this past weekend which she has been unable to do for a long time. She is complaining of thoracic and lumbar pain with BLE radicular pain to the calf. No trauma or injury. She has had this pain shelter. It is worse with standing and walking, better with rest. She denies any numbness/tingling. She has had no prior interventions to her back. Because the medication regimen is well tolerated and adequately controlling her pain, I will refill for 2 months. I will order a thoracic and lumbar x-ray today with the goal of proceed with LEI L5-S1 in the future. Patient would like to hold off on interventions at this time due to financial constraints. She will return in 2 months for med refill and revisit possible interventions. - Refill hydrocodone 5/325 q8h #90 with 1 refill - Order thoracic and lumbar x-ray with the goal of pursuing LEI in the future. - Return 2 months for med refill/reassess pain, sooner if needed. I counseled the patient extensively and informed of the risks of the procedure, including the risk of paralysis, nerve damage, respiratory arrest, arrhythmias, stroke, weakness, and infection, which although very low, could result in or disability. The patient acknowledged to me that they understand and accept these risks. RN EDUCATION Extensive coordination of care provided by RN to educate patient on upcoming procedure and to coordinate obtaining extensive incoming medical records. -------- I have discussed in great detail our potential treatment options which would include a rehabilitative approach to care. This program would include medication management, Physical Therapy, consideration for interventional procedures as appropriate, and lifestyle modification (diet, weight loss, exercise, smoking/tobacco cessation, holistic approach including meditation and yoga). The patient understands and agrees prior to proceeding with this plan. _ __ __ __ __ __ __ __ __ __ __ __ __ __ __ __ __ __ __ __ __ __ __ __ __ __ __ __ _ RECORDS REVIEW: As per clinic policy, we will have the patient sign a release to obtain previous imaging and clinical notes. _ __ __ __ __ __ __ __ __ __ __ __ __ __ __ __ __ __ __ __ __ __ __ __ __ __ __ __ _ PSYCH: Pain affecting Neuro-psych behavior was discussed. Discussed about pain psychological counseling as a part of the multimodal approach to pain treatment. _ __ __ __ __ __ __ __ __ __ __ __ __ __ __ __ __ __ __ __ __ __ __ __ __ __ __ __ _ REHABILITATION: Discussed with the patient the importance of diet, daily physical activity and PT. Discussed with the patient the need to be scheduled for physical therapy since physical therapy will prolong the benefits of the procedure and interventions. _ __ __ __ __ __ __ __ __ __ __ __ __ __ __ __ __ __ __ __ __ __ __ __ __ __ __ __ _ GISELLE: [id number] I have reviewed patient's GISELLE report prior to prescribing Schedule II, III, and IV medications that require review by law. [place] PDMP reviewed and appropriate. UDS reviewed and consistent with current regimen. Controlled substance contract reviewed and signed line by line. Risks of medication therapy including respiratory depression, , and hazards of operating heavy machinery including automobiles discussed at length. Patient given information with six opioid/Controlled substance safety steps: 1. Never take a prescription pain medication unless it is prescribed for you. 2. Do not take pain medicine with alcohol. 3. Do not take more doses than prescribed. 4. Use with other sedative or anti-anxiety medications can be dangerous. 5. Avoid using prescription pain medication to help you fall asleep. 6. Lock up prescription pain medications. Opioid Contract Discussion: The patient was given a copy of the Clinic Prescription Drug Agreement and was counseled extensively regarding its contents. The patient is to take their pain medication exactly as prescribed. No increases in medications are to be without first contacting the office and explaining the reason behind the increase and getting approval to do so. The patient is not to obtain medications from other providers without first notifying the other provider what they obtain from this clinic and need to notify this clinic when they obtain pain medications from other providers. The patient is to bring their pain medications to each and every office visit for pill counts to monitor compliance for their safety. The patient is subject to periodic urine drug testing at the discretion of the provider as well as state and federal regulations. The patient was warned of the risks and benefits of taking opioid pain medication, the risk of addiction, the risk of withdrawal and the differences. [email or web address] Not available 11/24/2022 16:34:20 01/12/2023 01/12/2023 Telehealth visit is being conducted from [address] [place] [address]. This was a real-time clinical encounter over [[email or web address] ]. Consent was obtained to engage in telemedicine service. Greater than 50% of the time spent was devoted to counseling and coordinating care including review of records, pertinent lab data and studies as well as discussing diagnostic evaluation and workup, plan therapeutic interventions and future disposition of care. This included any additional research needed to obtain further information in formulating the plan of care for this patient. This includes counseling with the patient about their disease and diagnosis, specifically as below. Patient was also counseled on the precaution of COVID-19 including importance of hand washing and social distancing. WE SPECIFICALLY DISCUSSED RISK FACTORS FOR COVID-19, INCLUDING AGE>60, HEART OR LUNG DISEASE, DIABETES, IMMUNOSUPPRESSION, AND TRAVEL. WE ALSO DISCUSSED THAT NSAIDS MAY WORSEN COVID-19 INFECTION SYMPTOMS AND THAT THEY SHOULD NOT BE USED TO TREAT COVID-19 SYMPTOMS. PATIENT WAS ALSO INFORMED THAT CORTICOSTEROIDS IN ANY FORM (ORAL OR INJECTABLE) WILL DECREASE IMMUNE RESPONSE AND MAY INCREASE RISK OF COVID-19 INFECTION AND SYMPTOMS. THIS ENCOUNTER WAS PERFORMED A TELEMEDICINE VISIT VIA SECURE TWO-WAY VIDEO AND AUDIO TO MINIMIZE RISK AND TRANSMISSION OF COVID-19. THE PATIENT AND WE UNDERSTAND THE LIMITATIONS OF A TELEMEDICINE VISIT INCLUDING INABILITY TO CHECK REFLEXES, POSSIBLY MISSING SUBTLE FINDINGS ON PHYSICAL EXAM. ALTERNATIVE OPTIONS WERE PRESENTED TO THE PATIENT AND THE PATIENT ELECTED TO PROCEED WITH THE VISIT. Mrs. Chandler was referred by Dr. William for osteoarthritis with chong for 5+ years. The patient complains of low back pain with radiation down the BLE and bilateral knee pain. She has previously seen by Dr. Gallardo with unsuccessful interventional treatment. The patient has a cardiac history, including AMI with stent placement, and a defibrillator. She takes daily Eliquis and Plavix managed by cardiology. The patient has a history of COPD with 20+ smoking years. Patient presents today for medication refill.. The patient states that the current medication regimen is effective and well-tolerable, allowing her to remain functional. Patient is currently undergoing workup with ENT for right ear pain. She continues to complain of thoracic and lumbar pain with BLE radicular pain to the calf. No trauma or injury. She has had this pain shelter. It is worse with standing and walking, better with rest. She denies any numbness/tingling. She has had no prior interventions to her back. Because the medication regimen is well tolerated and adequately controlling her pain, I will refill for 2 months. She did not get the lumbar and thoracic x-rays that were ordered at her last visit. I encouraged her to get those done so that we can then proceed with further procedures to address her pain. She will likely benefit from a LEI L5-S1. Due to her ear problems and financial constraints, she is not interested in pursuing any further interventions at this time. The patient will return in 2 months for med refill/reassess pain. She understands the next visit needs to be in clinic, not via TLV - Refill hydrocodone 5/325 q8h #90 with 1 refill - Return 2 months for med refill/reassess pain, sooner if needed. I counseled the patient extensively and informed of the risks of the procedure, including the risk of paralysis, nerve damage, respiratory arrest, arrhythmias, stroke, weakness, and infection, which although very low, could result in or disability. The patient acknowledged to me that they understand and accept these risks. RN EDUCATION Extensive coordination of care provided by RN to educate patient on upcoming procedure and to coordinate obtaining extensive incoming medical records. -------- I have discussed in great detail our potential treatment options which would include a rehabilitative approach to care. This program would include medication management, Physical Therapy, consideration for interventional procedures as appropriate, and lifestyle modification (diet, weight loss, exercise, smoking/tobacco cessation, holistic approach including meditation and yoga). The patient understands and agrees prior to proceeding with this plan. _ __ __ __ __ __ __ __ __ __ __ __ __ __ __ __ __ __ __ __ __ __ __ __ __ __ __ __ _ RECORDS REVIEW: As per clinic policy, we will have the patient sign a release to obtain previous imaging and clinical notes. _ __ __ __ __ __ __ __ __ __ __ __ __ __ __ __ __ __ __ __ __ __ __ __ __ __ __ __ _ PSYCH: Pain affecting Neuro-psych behavior was discussed. Discussed about pain psychological counseling as a part of the multimodal approach to pain treatment. _ __ __ __ __ __ __ __ __ __ __ __ __ __ __ __ __ __ __ __ __ __ __ __ __ __ __ __ _ REHABILITATION: Discussed with the patient the importance of diet, daily physical activity and PT. Discussed with the patient the need to be scheduled for physical therapy since physical therapy will prolong the benefits of the procedure and interventions. _ __ __ __ __ __ __ __ __ __ __ __ __ __ __ __ __ __ __ __ __ __ __ __ __ __ __ __ _ GISELLE: [id number] I have reviewed patient's GISELLE report prior to prescribing Schedule II, III, and IV medications that require review by law. [place] PDMP reviewed and appropriate. UDS reviewed and consistent with current regimen. Controlled substance contract reviewed and signed line by line. Risks of medication therapy including respiratory depression, , and hazards of operating heavy machinery including automobiles discussed at length. Patient given information with six opioid/Controlled substance safety steps: 1. Never take a prescription pain medication unless it is prescribed for you. 2. Do not take pain medicine with alcohol. 3. Do not take more doses than prescribed. 4. Use with other sedative or anti-anxiety medications can be dangerous. 5. Avoid using prescription pain medication to help you fall asleep. 6. Lock up prescription pain medications. Opioid Contract Discussion: The patient was given a copy of the Clinic Prescription Drug Agreement and was counseled extensively regarding its contents. The patient is to take their pain medication exactly as prescribed. No increases in medications are to be without first contacting the office and explaining the reason behind the increase and getting approval to do so. The patient is not to obtain medications from other providers without first notifying the other provider what they obtain from this clinic and need to notify this clinic when they obtain pain medications from other providers. The patient is to bring their pain medications to each and every office visit for pill counts to monitor compliance for their safety. The patient is subject to periodic urine drug testing at the discretion of the provider as well as state and federal regulations. The patient was warned of the risks and benefits of taking opioid pain medication, the risk of addiction, the risk of withdrawal and the differences. [email or web address] Not available 01/12/2023 11:37:09 03/30/2023 03/30/2023 Mrs. Chandler was referred by Dr. William for osteoarthritis with chong for 5+ years. The patient complains of low back pain with radiation down the BLE and bilateral knee pain. She has previously seen by Dr. Gallardo with unsuccessful interventional treatment. The patient has a cardiac history, including AMI with stent placement, and a defibrillator. She takes daily Eliquis and Plavix managed by cardiology (Dr. Mariscal at [facility]). The patient has a history of COPD with 20+ smoking years. Patient presents to the clinic today for medication refill. The patient mentions that she is only taking Hydrocodone APAP 5-325mg Q12 rather than Q8, which is effective and well-tolerated. She also takes Gabapentin 600mg Q8 which is effective at current dosing. I had a detailed discussion with the patient regarding treatment modalities and the respective risks/benefits. I educated the patient on the dangers/risks of long-term oral opioids, particularly with increasing age, these risks include respiratory depression, not excluding . I informed the patient that the goal of [facility] will be to incorporate a multi-modal approach to pain management, which may consist of conservative, pharmacologic, and interventional approaches, ultimately decreasing pain and increasing function with focus on both safety and efficacy. I informed the patient that I will prescribe oral opioids and the intention will be to slowly taper once pain is better controlled. The patient verbalized understanding and agreeing to the treatment plan set forth. As the patient is only taking Hydrocodone APAP 5-325mg at Q12 dosing, I will decrease from Q8 to Q12 dosing. I will leave Gabapentin 600mg at current dosing. I will refill her medications for 1 month. Regarding pain: The patient mentions falling around [place] and has not been out of the house until today. She goes on to day that she was not assessed by medical staff following the fall. Since the fall, she has had difficulty performing ADLs without assistance. She continues to complain of mid-low back pain with radiation into the BLE, negatively impacting her daily function. Based on the patient's history and physical exam, it appears her pain is likely associated with lumbar DDD/stenosis. To address the patient's pain: I will proceed with scheduling a LEI at L5-S1. I had a detailed discussion with the patient regarding the procedure and the risks/benefits and addressed any questions/concerns today. At lasy visit, I ordered x-rays of the thoracic and lumbar spine, but she has yet to have them performed. I advised her that I will reprint x-ray orders and she needs to go have them done today for review. Patient verbalized understanding. The patient has completed PT and continues at home exercises/stretche s and other conservative measures with minimal benefit. - Medication for 1 month: Hydrocodone APAP 5-325mg Q12 #60, Gabapentin 300mg Q8 #90 - UDS obtained today and appropriate - Reprinted thoracic and lumbar x-ray orders - patient will have them done today - Schedule a LEI at L5-S1 - Follow up 2 weeks post injection to assess efficacy I counseled the patient extensively and informed of the risks of the procedure, including the risk of paralysis, nerve damage, respiratory arrest, arrhythmias, stroke, weakness, and infection, which although very low, could result in or disability. The patient acknowledged to me that they understand and accept these risks. RN EDUCATION Extensive coordination of care provided by RN to educate patient on upcoming procedure and to coordinate obtaining extensive incoming medical records. -------- I have discussed in great detail our potential treatment options which would include a rehabilitative approach to care. This program would include medication management, Physical Therapy, consideration for interventional procedures as appropriate, and lifestyle modification (diet, weight loss, exercise, smoking/tobacco cessation, holistic approach including meditation and yoga). The patient understands and agrees prior to proceeding with this plan. _ __ __ __ __ __ __ __ __ __ __ __ __ __ __ __ __ __ __ __ __ __ __ __ __ __ __ __ _ RECORDS REVIEW: As per clinic policy, we will have the patient sign a release to obtain previous imaging and clinical notes. _ __ __ __ __ __ __ __ __ __ __ __ __ __ __ __ __ __ __ __ __ __ __ __ __ __ __ __ _ PSYCH: Pain affecting Neuro-psych behavior was discussed. Discussed about pain psychological counseling as a part of the multimodal approach to pain treatment. _ __ __ __ __ __ __ __ __ __ __ __ __ __ __ __ __ __ __ __ __ __ __ __ __ __ __ __ _ REHABILITATION: Discussed with the patient the importance of diet, daily physical activity and PT. Discussed with the patient the need to be scheduled for physical therapy since physical therapy will prolong the benefits of the procedure and interventions. _ __ __ __ __ __ __ __ __ __ __ __ __ __ __ __ __ __ __ __ __ __ __ __ __ __ __ __ _ GISELLE: [id number] I have reviewed patient's GISELLE report prior to prescribing Schedule II, III, and IV medications that require review by law. [place] PDMP reviewed and appropriate. UDS reviewed and consistent with current regimen. Controlled substance contract reviewed and signed line by line. Risks of medication therapy including respiratory depression, , and hazards of operating heavy machinery including automobiles discussed at length. Patient given information with six opioid/Controlled substance safety steps: 1. Never take a prescription pain medication unless it is prescribed for you. 2. Do not take pain medicine with alcohol. 3. Do not take more doses than prescribed. 4. Use with other sedative or anti-anxiety medications can be dangerous. 5. Avoid using prescription pain medication to help you fall asleep. 6. Lock up prescription pain medications. Opioid Contract Discussion: The patient was given a copy of the Clinic Prescription Drug Agreement and was counseled extensively regarding its contents. The patient is to take their pain medication exactly as prescribed. No increases in medications are to be without first contacting the office and explaining the reason behind the increase and getting approval to do so. The patient is not to obtain medications from other providers without first notifying the other provider what they obtain from this clinic and need to notify this clinic when they obtain pain medications from other providers. The patient is to bring their pain medications to each and every office visit for pill counts to monitor compliance for their safety. The patient is subject to periodic urine drug testing at the discretion of the provider as well as state and federal regulations. The patient was warned of the risks and benefits of taking opioid pain medication, the risk of addiction, the risk of withdrawal and the differences. [email or web address] Not available 03/30/2023 15:36:52 Plan of Treatment Reminders Order Date Submit Date Provider Last Modified By Organization Details Last Modified Time Details Appointments None recorded. Lab drug screen, urine 2023 024 [email or web address] [facility], [place], [address], 4 12:12:09 Referral None recorded. Procedures injection , single, diagnosti c or therapeut ic substance , lumbar, sacral (PROC) - 61117, LEI L5-S1 2023 024 Justin Andres, [address] [place] [place], [address], 4 09:24:03 epidural steroid injection , cervical interlami yg (PROC) - 27489, C7-T1 2022 023 [email or web address] Not available 3 08:27:26 epidural steroid injection , cervical interlami yg (PROC) - 67460, C7-T1 2022 023 Not available 3 13:39:39 Surgeries None recorded. Imaging XR, lumbar spine, 2 view 2022 023 [facility]), [address] [place], [address], 3 16:10:33 XR, thoracic spine, 2 view 2022 023 [email or web address] [facility] (Scheduling), [address] [place], [address], 3 11:03:12 Medication Orders gabapenti n 600 mg tablet [address] [facility], [address] [place] [address] [address] [place], [id number], 4 16:34:26 hydrocodo ne 5 mg-acetam inophen 325 mg tablet [address] [email or web address], [address] [place] [address] [address] [place], [id number], 4 15:59:57 hydrocodo ne 5 mg-acetam inophen 325 mg tablet 2022 023 [facility], [address] [place] [address] [address] [place], [id number], 3 16:06:54 hydrocodo ne 5 mg-acetam inophen 325 mg tablet 2022 023 [facility], [address] [place] [address] [address], [place], [id number], 4 16:06:54 gabapenti n 600 mg tablet 2022 023 [facility], [address] [place] [address] [address], BRADEN [place], [id number], 4 16:36:42 hydrocodo ne 5 mg-acetam inophen 325 mg tablet 2022 023 [facility], [address] [place] [address] [address] [place], [id number], 3 13:07:24 hydrocodo ne 5 mg-acetam inophen 325 mg tablet 2022 023 [facility], [address] [place] [address] [address], BRADEN Naj[place], [id number], 3 16:15:43 hydrocodo ne 5 mg-acetam inophen 325 mg tablet 2022 023 [facility], [address] [place] [address] [address], BRADEN Najera, [id number], 3 16:35:06 hydrocodo ne 5 mg-acetam inophen 325 mg tablet 2022 023 [facility], [address] [place] [address] [place], [id number], 3 14:33:16 gabapenti n 600 mg tablet 2022 [address] [facility], [address] [facility] [address] [place], [id number], 3 16:58:13 Patient TargetsNo targets recorded. Patient InstructionsNo instructions recorded. Reason for Referral None Reported. Results Created Date Observation Date Name Description Value Unit Range Abnormal Flag Note LastModifiedBy Organization Detail LastModifiedTime 03/30/19 24 03/30/2023 drug scree n, urine Amphetamines negati ve Not Available [facility] [address] [place] [address] Dr Franks, [place], [address], 03/30/2023 15:15:37 03/30/19 24 03/30/2023 drug scree n, urine Barbiturates negati ve Not Available [facility] [address] [place] [address] [place], [address], 03/30/2023 15:15:37 03/30/19 24 03/30/2023 drug scree n, urine Buprenorphin e negati ve Not Available [facility] [address] [place] [address] [place], [address], 03/30/2023 15:15:37 03/30/19 24 03/30/2023 drug scree n, urine Benzodiazepi dion negati ve Not Available [facility] [address] [place] [address] [place], [address], 03/30/2023 15:15:37 03/30/19 24 03/30/2023 drug scree n, urine Cocaine negati ve Not Available [facility] [address] [place] [address] [place], [address], 03/30/2023 15:15:37 03/30/19 24 03/30/2023 drug scree n, urine Methamphetam ine negati ve Not Available [facility] [address] [place] [address] Dr Franks, [place], [address], 03/30/2023 15:15:37 03/30/19 24 03/30/2023 drug scree n, urine Ecstasy negati ve Not Available [facility] [address] [place] [address] Dr Franks, [place], [address], 03/30/2023 15:15:37 03/30/19 24 03/30/2023 drug scree n, urine Methadone negati ve Not Available [facility] [address] [place] [address] Dr Franks, [place], [address], 03/30/2023 15:15:37 03/30/19 24 03/30/2023 drug scree n, urine Morphine/ Opiates negati ve Not Available [facility] [address] [place] [address] Dr Franks, [place], [address], 03/30/2023 15:15:37 03/30/19 24 03/30/2023 drug scree n, urine Phencyclidin e negati ve Not Available [facility] [address] [place] [address] Dr Franks, [place], [address], 03/30/2023 15:15:37 03/30/19 24 03/30/2023 drug scree n, urine Oxycodone negati ve Not Available [facility] [address] [place] [address] [place], [address], 03/30/2023 15:15:37 03/30/19 24 03/30/2023 drug scree n, urine Marijuana negati ve Not Available [facility] [address] [place] [address] [place], [address], 03/30/2023 15:15:37 Result Notes None recorded. Problems Name Problem SNOMED Code Status Onset Date Resolution Date Notes Provider Name and Address Organization Details Recorded Time Bilateral osteoarthr itis of knees 4513936292235 07 Active 2021 Not Available [facility] 4 19:02:55 Pain of bilateral knee regions 0810325120079 02 Active 2021 Not Available [facility] 4 19:02:55 Low back pain 657275071 Active 2021 Not Available [facility] 4 19:02:55 Chronic obstructiv e pulmonary disease 40617016 Active 2021 Not Available [facility] 4 19:02:55 Nicotine dependence 10696555 Active 2021 Not Available [facility] 4 19:02:55 Cardiac pacemaker procedure Active 2021 Not Available [facility] 4 19:02:55 Radicular pain 09320627 Active 2021 Not Available [facility] 4 19:02:55 Neck pain 33332512 Active 2022 Not Available [facility] 4 19:02:55 Pain in right arm 187460058 Active 2022 Not Available [facility] 4 19:02:55 Neuropathi c pain 806833614 Active 2022 Not Available [facility] 4 19:02:55 Spinal stenosis in cervical region 49081862 Active 2022 Not Available [facility] 4 19:02:55 Stenosis of spinal canal due to interverte bral disc 572748539 Active 2023 Vicenta Raza null, [place] - [facility] [place] [facility] [place] 4 15:34:56 Opioid dependence 99731107 Active 2023 Vicenta Raza null, [place] - [facility] [place] [facility] [place] 4 15:35:32 Fall Active 2023 Vicenta Raza null, [place] - [facility] [place] [facility] [place] 4 15:39:33 Problem Notes None recorded. Medical Equipment None Reported. Allergies No known drug allergies Medications Name Sig Start Date Stop Date Status Note LastModified by Organization Details LastModified Time amoxicillin 500 mg capsule TAKE ONE CAPSULE BY MOUTH EVERY 8 HOURS FOR 10 DAYS -- FINISH ALL MEDICINE -- active Not Available Not Available No t Available atorvastati n 40 mg tablet TAKE ONE TABLET BY MOUTH EVERY DAY active Not Available Not Available No t Available promethazin e-DM 6.25 mg-15 mg/5 mL oral syrup TAKE 1 TEASPOONF UL (5 ML) BY MOUTH EVERY 6 HOURS NEEDED FOR cough MAY CAUSE DROWSINES S 08/25 completed Not Available Not Available Not Available potassium chloride ER 10 mEq capsule,ext ended release TAKE ONE CAPSULE BY MOUTH EVERY DAY IN THE MORNING active Not Available Not Available No t Available prednisone 10 mg tablet TAKE TWO TABLETS BY MOUTH ONCE DAILY FOR 2 DAYS, TAKE ONE TABLET ONCE DAILY FOR 2 DAYS, THEN TAKE 1/2 TABLET ONCE DAILY FOR 2 DAYS active Not Available Not Available No t Available gabapentin 600 mg tablet Take 1 tablet every 8 hours by oral route for 30 days. 2023 active Not Available Not Available Not Avai lable doxycycline hyclate 100 mg capsule 08/25 completed Not Available Not Available Not Available carvedilol 12.5 mg tablet TAKE ONE TABLET BY MOUTH TWICE DAILY 11/19 completed Not Available Not Available Not Available azithromyci n 250 mg tablet TAKE 2 TABLETS BY MOUTH ON DAY 1, THEN TAKE 1 TABLET DAILY ON DAYS 2-5 08/25 completed Not Available Not Available Not Available fluconazole 150 mg tablet TAKE ONE TABLET BY MOUTH A ONE-TIME DOSE active Not Available Not Available No t Available metoprolol succinate ER 50 mg tablet,exte nded release 24 hr TAKE ONE TABLET BY MOUTH EVERY EVENING active Not Available Not Available No t Available hydrocodone 5 mg-acetamin ophen 325 mg tablet TAKE ONE TABLET BY MOUTH EVERY TWELVE HOURS NEEDED active Not Available Not Available No t Available lisinopril 20 mg tablet TAKE ONE TABLET BY MOUTH EVERY DAY 08/25 completed Not Available Not Available Not Available metoprolol succinate ER 100 mg tablet,exte nded release 24 hr TAKE 1/2 TABLET BY MOUTH EVERY EVENING 08/25 completed Not Available Not Available Not Available topiramate 25 mg tablet TAKE ONE TABLET BY MOUTH EVERY EVENING active Not Available Not Available No t Available clopidogrel 75 mg tablet TAKE ONE TABLET BY MOUTH EVERY DAY active Not Available Not Available No t Available cephalexin 500 mg capsule 08/25 completed Not Available Not Available Not Available pantoprazol e 40 mg tablet,isai yed release TAKE ONE TABLET BY MOUTH EVERY [...] Available Not Available No t Available lisinopril 5 mg tablet TAKE ONE TABLET BY MOUTH EVERY DAY 11/19 completed Not Available Not Available Not Available furosemide 20 mg tablet TAKE ONE TABLET BY MOUTH EVERY DAY IN THE MORNING active Not Available Not Available No t Available ergocalcife rol (vitamin D2) 1,250 mcg (50,000 unit) capsule TAKE ONE CAPSULE BY MOUTH ONCE a WEEK active Not Available Not Available No t Available levofloxaci n 500 mg tablet TAKE ONE TABLET BY MOUTH ONCE DAILY FOR 10 DAYS -- FINISH ALL MEDICINE -- active Not Available Not Available No t Available albuterol sulfate HFA 90 mcg/actuati on aerosol inhaler inhale 1 TO 2 puffs BY MOUTH EVERY 4 TO 6 HOURS active Not Available Not Available No t Available cefdinir 300 mg capsule TAKE ONE CAPSULE BY MOUTH TWICE DAILY FOR 10 DAYS -- FINISH ALL MEDICINE -- 08/25 completed Not Available Not Available Not Available fluticasone propionate 50 mcg/actuati on nasal spray,suspe nsion instill 1 SPRAY IN EACH NOSTRIL EVERY DAY active Not Available Not Available No t Available sertraline 50 mg tablet TAKE 1/2 TABLET BY MOUTH EVERY DAY FOR 2 WEEKS, THEN TAKE ONE TABLET BY MOUTH EVERY DAY thereafte r active Not Available Not Available No t Available Ciprodex 0.3 %-0.1 % ear drops,suspe nsion instill 4 drops in affected ear(s) TWICE DAILY FOR 7 DAYS active Not Available Not Available No t Available rosuvastati n 10 mg tablet TAKE ONE TABLET BY MOUTH EVERY EVENING active Not Available Not Available No t Available Eliquis 5 mg tablet TAKE ONE TABLET BY MOUTH TWICE DAILY active Not Available Not Available No t Available Vitals Date Recorded Body height Body mass index (BMI) Body weight Body temperature Oxygen saturation Oxygen saturation in Arterial blood by Pulse oximetry Heart rate Systolic blood pressure Diastolic blood pressure Provider Name and Address Organization Details Last Updated DateTime 4 167.64 cm 25.2 kg/m2 89055.4 1 g 98 [degF] 92 % 92 % 100 /min 167 mm[Hg] 106 mm[Hg] Kelsi naylor [place] - [facility] & [place] 4 14:20:33 Date Recorded Body height Body mass index (BMI) Body weight Body temperature Oxygen saturation Oxygen saturation in Arterial blood by Pulse oximetry Heart rate Respiratory rate Systolic blood pressure Diastolic blood pressure Provider Name and Address Organization Details Last Updated DateTime 3 167.64 cm 22.9 kg/m2 11508.1 2 g 97.7 [degF] 84 % 84 % 92 /min 24 /min 129 mm[Hg] 83 mm[Hg] Michaela Cueva [facility] & [place] 3 16:13:48 Date Recorded Body height Body mass index (BMI) Body weight Body temperature Oxygen saturation Oxygen saturation in Arterial blood by Pulse oximetry Heart rate Systolic blood pressure Diastolic blood pressure Provider Name and Address Organization Details Last Updated DateTime 3 167.64 cm 22.9 kg/m2 06768.4 g 97.4 [degF] 90 % 90 % 98 /min 146 mm[Hg] 94 mm[Hg] Martha FELICIANO [facility] & [place] 3 15:22:01 Date Recorded Body height Oxygen saturation Oxygen saturation in Arterial blood by Pulse oximetry Body temperature Body mass index (BMI) Body weight Provider Name and Address Organization Details Last Updated DateTime 3 167.64 cm 85 % 85 % 98.2 [degF] 22.8 kg/m2 47725.5 2 g Martha FELICIANO [facility] & [place] 3 16:01:38 Date Recorded Body height Provider Name an d Address Organization Details Last Updated DateTime 01/12/2023 167.64 cm Kelsi FELICIANO [facility] & [place] 01/12/2023 10:51:45 Social History None recorded. Functional Status None recorded. Mental Status None recorded. Family History Nothing Reported. Medical History No medical history recorded. Gynecological HistoryNo gynecological history recorded. Obstetrics History GPAL:G 0 P 0 0 0 0 Past Encounters Encounter ID Performer Location Encounter Start Date Encounter Closed Date Diagnosis/Indication Diagnosis SNOMED-CT Code Diagnosis ICD10 Code Diagnosis Note [id number] Justin Andres MD [facility] [address] [address] 11/19/2021 11:47:34 11/19/2021 12:32:16 Bilateral osteoarthritis of knees 5024519614 13116 M17.0 Pain of bi lateral knee regions 0247292602 83887 M25.561 M25.562 Low back pain 369570512 M54.50 Radicular pain 21763060 M54.10 [id number] Justin Andres MD [facility] [address] [place] [address] [place] [address] 12/16/2021 14:22:03 12/16/2021 16:13:15 Bilateral osteoarthritis of knees 8234802525 21865 M17.0 Pain of bi lateral knee regions 8479930756 86392 M25.561 M25.562 Low back pain 900298091 M54.50 Radicular pain 89943483 M54.10 [id number] Justin Andres MD [facility] [address] [place] [address] [place] [address] 01/27/2022 14:39:34 01/27/2022 14:41:02 Bilateral osteoarthritis of knees 3647181923 96203 M17.0 Pain of bi lateral knee regions 5187669642 03292 M25.561 M25.562 Low back pain 978382441 M54.50 Radicular pain 71395025 M54.10 [id number] Justin Andres MD [facility] [address] [place] [address] [place] [address] 02/25/2022 08:32:14 02/25/2022 09:58:50 Bilateral osteoarthritis of knees 8576601204 14018 M17.0 Pain of bi lateral knee regions 2086686793 24176 M25.561 M25.562 Low back pain 328481615 M54.50 Radicular pain 97815049 M54.10 [id number] Justin Andres MD [facility] [address] [place] [address] [place] [address] 03/17/2022 12:17:51 03/17/2022 12:22:07 Bilateral osteoarthritis of knees 4866118296 26006 M17.0 Pain of bi lateral knee regions 3266517645 99331 M25.561 M25.562 Low back pain 157638445 M54.50 Radicular pain 92693001 M54.10 [id number] Justin Andres MD [facility] [address] [place] [address] [place] [address] 05/12/2022 11:37:32 05/12/2022 12:17:04 Bilateral osteoarthritis of knees 7107397605 77265 M17.0 Pain of bi lateral knee regions 5428076063 43603 M25.561 M25.562 Low back pain 620705823 M54.50 Radicular pain 10972940 M54.10 Neck pain 39019003 M54.2 Pain in right arm 488652 004 M79.601 Neuropathic pain 1347689 09 M79.2 [id number] Justin Andres MD [facility] [address] [place] [address] [place] [address] 06/09/2022 09:26:46 06/09/2022 11:32:40 Bilateral osteoarthritis of knees 9644811256 65059 M17.0 Pain of bi lateral knee regions 8379297808 34129 M25.561 M25.562 Low back pain 435794672 M54.50 Radicular pain 74347135 M54.10 Neck pain 31574989 M54.2 Pain in right arm 171546 004 M79.601 Neuropathic pain 4661435 09 M79.2 [id number] Justin Andres MD [facility] [address] [place] [address] [place] [address] 07/14/2022 15:03:41 07/14/2022 16:33:25 Bilateral osteoarthritis of knees 8287051115 27716 M17.0 Pain of bi lateral knee regions 2478424698 61041 M25.561 M25.562 Low back pain 176334178 M54.50 Radicular pain 26614090 M54.10 Neck pain 83658472 M54.2 Pain in right arm 075034 004 M79.601 Neuropathic pain 8750492 09 M79.2 [id number] Justin Andres MD [facility] is [address] [place] [address] [place] [address] 08/25/2022 15:06:33 08/27/2022 09:08:30 Bilateral osteoarthritis of knees [id number] 62289 M17.0 Pain of bi lateral knee regions [id number] 68293 M25.561 M25.562 Low back pain 345703664 M54.50 Radicular pain 54946418 M54.10 Neck pain 67881207 M54.2 Pain in right arm 971820 004 M79.601 Neuropathic pain 7517843 09 M79.2 Spinal davi nosis in cervical region 29398810 M99.51 [id number] Justin Andres MD [facility] is [address] [place] [address] 09/29/2022 14:45:52 09/29/2022 15:26:15 Bilateral osteoarthritis of knees [id number] 66861 M17.0 Pain of bi lateral knee regions 0695999466 96437 M25.561 M25.562 Low back pain 186935467 M54.50 Radicular pain 02331454 M54.10 Neck pain 24803809 M54.2 Pain in right arm 453011 004 M79.601 Neuropathic pain 9920716 09 M79.2 Spinal davi nosis in cervical region 69139792 M99.51 [id number] Justin Andres MD [facility] is [address] [place] [address] [place] [address] 11/24/2022 15:13:54 11/24/2022 16:10:34 Bilateral osteoarthritis of knees [id number] 95865 M17.0 Pain of bi lateral knee regions 5120128300 21744 M25.561 M25.562 Low back pain 637573357 M54.50 Radicular pain 28961187 M54.10 Neck pain 48704682 M54.2 Pain in right arm 228103 004 M79.601 Neuropathic pain 5769756 09 M79.2 Spinal davi nosis in cervical region 98085488 M99.51 Stenosis o f spinal canal due to intervertebral disc 762964716 M99.59 [id number] Justin Andres MD [facility] is [address] [place] [address] 01/12/2023 10:48:01 01/12/2023 12:59:31 Bilateral osteoarthritis of knees [id number] 91592 M17.0 Pain of bi lateral knee regions 3877517746 76581 M25.561 M25.562 Low back pain 449014917 M54.50 Radicular pain 57812476 M54.10 Neck pain 23791696 M54.2 Pain in right arm 664261 004 M79.601 Neuropathic pain 6465702 09 M79.2 Spinal davi nosis in cervical region 42122275 M99.51 Stenosis o f spinal canal due to intervertebral disc 821273179 M99.59 [id number] Justin Andres MD [facility] is [address] [place] [address] [place] [address] 03/30/2023 13:08:28 03/30/2023 14:22:53 Bilateral osteoarthritis of knees [id number] 41150 M17.0 Pain of bi lateral knee regions 3775523481 46584 M25.561 M25.562 Low back pain 668324860 M54.50 Radicular pain 62380633 M54.10 Neck pain 48749096 M54.2 Pain in right arm 784675 004 M79.601 Neuropathic pain 7866559 09 M79.2 Spinal davi nosis in cervical region 62081826 M99.51 Stenosis o f spinal canal due to intervertebral disc 806882078 M99.53 Opioid dependence [id number] 00 F11.20 Fall W19.XXXA Health Concerns Section Related Observation LastModified by Organization Detai ls LastModified Time None Recorded Concern Status LastModified by Organization Details LastModified Time None Recorded Advance Directives Directive None Recorded Payers Insurance Date Sequence Insurance Name Policy Number Policy Harding Covered Member ID Harding Member ID Guarantor Name 08/29/2023 1 [facility] (MEDICARE REPLACEMENT/ ADVANTAGE - HMO) Lena Chandler [id number] Lena Chandler Notes Date Note Type Note Provider Name and Address Organization Details Recorded Time 3 text/html Mrs. Chandler was referred by Dr. William for chronic osteoarthritis with onset 5+ years ago. The patient primarily complains of low back pain with radiation down the BLE and bilateral knee pain. She was previously seen by Dr. Gallardo with unsuccessful interventional treatment. The patient has a cardiac history, including AMI with stent placement, and a defibrillator. She takes daily Eliquis and Plavix managed by cardiology. The patient has a history of COPD with 20+ smoking years. Patient presents today for medication refill. The patient states that the current medication regimen is effective and well-tolerable, allowing her to remain functional. She has recovered from pacemaker placement and continues to have RUE pain with radiationg to the hand and numbness/tingling in the fingers. Dr. Hernandez gave her a steroid injection in her right shoulder which did not improve her pain. The patient also continues to complain of bilateral knee pain with interest in Supartz once medical problems are stablized. Pain today is 7/10 Initial complaint: chronic low back and knee painOnset: 5+ years agoContext: past 2 years pain has worsened in her low back and bilateral kneesCharacter: sharp, throbbing, aches, numbness, tinglingLocation: low back that radiates to her bilateral lower extremities, bilateral knee painDuration: constant with fluctuationsInitial Intensity: 7/10Worse: bending, prolonged sitting, and standingBetter: nothingAssociated symptoms: Denies saddle anaesthesia, denies acute bowel/bladder changes, denies acute power lossADLs: The patient's pain interferes with daily chores, exercise, sleep, relationships, and walking.Current Pain Medications: Hydrocodone Bitartrate/Acetaminophen 5mg/325 mg QID, Gabapentin 600 mg TIDPrior Pain Medications: NoneNSAIDS/OTC- Tylenol and Ibuprofen with no reliefNon-interventional Tx: NoneSurgery: NonePhysical Therapy: NoneInterventional Tx: Bilateral Knee Injections, Lumbar InjectionsImaging/Studie s: None Justin Andres MD [address] [facility], [place], [address], [place] - [facility] - [place] & [place] 08/27/2022 14:45:45 3 text/html Mrs. Chandler was referred by Dr. William for chronic osteoarthritis with onset 5+ years ago. The patient primarily complains of low back pain with radiation down the BLE and bilateral knee pain. She was previously seen by Dr. Gallardo with unsuccessful interventional treatment. The patient has a cardiac history, including AMI with stent placement, and a defibrillator. She takes daily Eliquis and Plavix managed by cardiology. The patient has a history of COPD with 20+ smoking years. Patient presents today for medication refill. The patient states that the current medication regimen is effective and well-tolerable, allowing her to remain functional. She has recovered from pacemaker placement and continues to have RUE pain with radiationg to the hand and numbness/tingling in the fingers. Dr. Hernandez gave her a steroid injection in her right shoulder which did not improve her pain. The patient also continues to complain of bilateral knee pain with interest in Supartz once medical problems are stablized. Pain today is 5/10 Initial complaint: chronic low back and knee painOnset: 5+ years agoContext: past 2 years pain has worsened in her low back and bilateral kneesCharacter: sharp, throbbing, aches, numbness, tinglingLocation: low back that radiates to her bilateral lower extremities, bilateral knee painDuration: constant with fluctuationsInitial Intensity: 7/10Worse: bending, prolonged sitting, and standingBetter: nothingAssociated symptoms: Denies saddle anaesthesia, denies acute bowel/bladder changes, denies acute power lossADLs: The patient's pain interferes with daily chores, exercise, sleep, relationships, and walking.Current Pain Medications: Hydrocodone Bitartrate/Acetaminophen 5mg/325 mg QID, Gabapentin 600 mg TIDPrior Pain Medications: NoneNSAIDS/OTC- Tylenol and Ibuprofen with no reliefNon-interventional Tx: NoneSurgery: NonePhysical Therapy: NoneInterventional Tx: Bilateral Knee Injections, Lumbar InjectionsImaging/Studie s: None Justin Andres MD [address] [facility], [place], [address], [place] [facility] [place] & [place] 10/01/2022 08:42:38 3 text/html Mrs. Chandler was referred by Dr. William for chronic osteoarthritis with onset 5+ years ago. The patient primarily complains of low back pain with radiation down the BLE and bilateral knee pain. She was previously seen by Dr. Gallardo with unsuccessful interventional treatment. The patient has a cardiac history, including AMI with stent placement, and a defibrillator. She takes daily Eliquis and Plavix managed by cardiology. The patient has a history of COPD with 20+ smoking years. Patient presents today for medication refill and f/up CEI. The patient states that the current medication regimen is effective and well-tolerable, allowing her to remain functional. She reports that the CEI was successful in improving her neck and BUE pain >80% with improved function. She reports she was able to go to [place] [facility] with her this past weekend which she has been unable to do for a long time. She is complaining of thoracic and lumbar pain with BLE radicular pain to the calf. No trauma or injury. She has had this pain shelter. It is worse with standing and walking, better with rest. She denies any numbness/tingling. She has had no prior interventions to her back. Initial complaint: chronic low back and knee painOnset: 5+ years agoContext: past 2 years pain has worsened in her low back and bilateral kneesCharacter: sharp, throbbing, aches, numbness, tinglingLocation: low back that radiates to her bilateral lower extremities, bilateral knee painDuration: constant with fluctuationsInitial Intensity: 7/10Worse: bending, prolonged sitting, and standingBetter: nothingAssociated symptoms: Denies saddle anaesthesia, denies acute bowel/bladder changes, denies acute power lossADLs: The patient's pain interferes with daily chores, exercise, sleep, relationships, and walking.Current Pain Medications: Hydrocodone Bitartrate/Acetaminophen 5mg/325 mg QID, Gabapentin 600 mg TIDPrior Pain Medications: NoneNSAIDS/OTC- Tylenol and Ibuprofen with no reliefNon-interventional Tx: NoneSurgery: NonePhysical Therapy: NoneInterventional Tx: Bilateral Knee Injections, Lumbar InjectionsImaging/Studie s: None Justni Andres MD [address] [facility], [place], [address], [facility] & [place] 11/26/2022 11:29:36 3 text/html Mrs. Chandler was referred by Dr. William for chronic osteoarthritis with onset 5+ years ago. The patient primarily complains of low back pain with radiation down the BLE and bilateral knee pain. She was previously seen by Dr. Gallardo with unsuccessful interventional treatment. The patient has a cardiac history, including AMI with stent placement, and a defibrillator. She takes daily Eliquis and Plavix managed by cardiology. The patient has a history of COPD with 20+ smoking years. Patient presents via [facility] today for medication refill. The patient states that the current medication regimen is effective and well-tolerable, allowing her to remain functional. Patient has had successful CEI on 10/27/22 with >80% improved pain and function. She reports she was able to go to [place] [facility] with her this past weekend which she has been unable to do for a long time. She is complaining of thoracic and lumbar pain with BLE radicular pain to the calf. No trauma or injury. 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 It is worse with standing and walking, better with rest. She denies any numbness/tingling. She has had no prior interventions to her back. Initial complaint: chronic low back and knee painOnset: 5+ years agoContext: past 2 years pain has worsened in her low back and bilateral kneesCharacter: sharp, throbbing, aches, numbness, tinglingLocation: low back that radiates to her bilateral lower extremities, bilateral knee painDuration: constant with fluctuationsInitial Intensity: 7/10Worse: bending, prolonged sitting, and standingBetter: nothingAssociated symptoms: Denies saddle anaesthesia, denies acute bowel/bladder changes, denies acute power lossADLs: The patient's pain interferes with daily chores, exercise, sleep, relationships, and walking.Current Pain Medications: Hydrocodone Bitartrate/Acetaminophen 5mg/325 mg QID, Gabapentin 600 mg TIDPrior Pain Medications: NoneNSAIDS/OTC- Tylenol and Ibuprofen with no reliefNon-interventional Tx: NoneSurgery: NonePhysical Therapy: NoneInterventional Tx: Bilateral Knee Injections, Lumbar InjectionsImaging/Studie s: None Justin Andres MD [address] [facility], [place], [address], [facility] & [place] 01/13/2023 21:55:52 4 text/html Mrs. Chandler was referred by Dr. William for chronic osteoarthritis with onset 5+ years ago. The patient primarily complains of low back pain with radiation down the BLE and bilateral knee pain. She was previously seen by Dr. Gallardo with unsuccessful interventional treatment. The patient has a cardiac history, including AMI with stent placement, and a defibrillator. She takes daily Eliquis and Plavix managed by cardiology. The patient has a history of COPD with 20+ smoking years. Patient presents to the clinic today for medication refill. The patient states that she is only taking Hydrocodone APAP 5-325mg Q12 rather than Q8, which is effective and well-tolerated. She also takes Gabapentin 600mg Q8 which is effective at current dosing. The patient reports falling around [place] 's and has not been out of the house until today. She goes on to day that she was not assessed by medical staff following the fall. Since the fall, she has had difficulty performing ADLs without assistance. She continues to complain of mid-low back pain with radiation into the BLE, negatively impacting her daily function. The patient has completed PT and continues at home exercises/stretches and other conservative measures with minimal benefit. Today her pain is a 5/10. Initial complaint: chronic low back and knee painOnset: 5+ years agoContext: past 2 years pain has worsened in her low back and bilateral kneesCharacter: sharp, throbbing, aches, numbness, tinglingLocation: low back that radiates to her bilateral lower extremities, bilateral knee painDuration: constant with fluctuationsInitial Intensity: 7/10Worse: bending, prolonged sitting, and standingBetter: nothingAssociated symptoms: Denies saddle anaesthesia, denies acute bowel/bladder changes, denies acute power lossADLs: The patient's pain interferes with daily chores, exercise, sleep, relationships, and walking.Current Pain Medications: Hydrocodone Bitartrate/Acetaminophen 5mg/325 mg QID, Gabapentin 600 mg TIDPrior Pain Medications: NoneNSAIDS/OTC- Tylenol and Ibuprofen with no reliefNon-interventional Tx: NoneSurgery: NonePhysical Therapy: NoneInterventional Tx: Bilateral Knee Injections, Lumbar InjectionsImaging/Studie s: None Justin Andres MD [address] [facility], [place], [address], [facility] - [place] & [place] 04/01/2023 14:43:21 OBGyn Episode No OBEpisode recorded.
--- OUTSIDE RECORDS SUMMARY | 2024-07-21 15:00 | XMS_ITS | Encounter Summary ---
Author Organization Healthcare Address [address] [place] [address] Care Team Providers Care Bankruptcy Paralegal Name Role Phone Felicitas Melara Delilah DENISE Primary Care Provider [phone] Encounter Details Date Type Department Care Team (Late st Contact Info) Description 06/01/2024 Abstract Medical Office Building Surgical Specialties [address] [facility], [address] [place] [address] Gamaliel Zaragoza Social History Tobacco Use Types Packs/Day Years [...] Recorded Patient Health Questionnaire-2 Score 0 05/30/2024 [facility] - Occupational Stress Questionnaire Answer Date [...] In the past 12 months has e [employer], gas, oil, or water company threatened to shut off services in your home? No 06/02/2024 Comments No Sex and Gender Information Value Date Recorded Sex Assigned at Not on file Legal Sex Female 8:21 PM EDT Gender Identity Not on file Sexual Orientation Not on file documented as of this encounter Plan of Treatment Upcoming Encounters Date Type Department Care Team ([facility] st Contact Info) Description 11/30/2024 2:20 PM EDT Office Visit [facility] Endocrinology [address] [place] [address] Natalia Alves MD [address] [facility] [address] [place] [address] 12/08/2024 3:00 PM EDT Office Visit Medical Office Building Surgical Specialties [address] [facility], [address] [place] [address] Amish Escobedo MD [address] [facility] [address] [place] [address] documented as of this encounter Visit Diagnoses Not on filedocumented in this encounter Additional Health Concerns Assessment Noted Time A Body Mass Index follow-up plan has been documented for the patient 05/30/2024 1:38 PM EDT documented as of this encounter Care Teams Bankruptcy Paralegal Relationship Specialty Start Date End Date Felicitas Melara APRN [address] [place] [address] PCP - General 01/29/24 documented as of this encounter
== END 2024-07-21 23:59 | disposition home or self-care (01) ==
LOC: INF 14:10
PROVIDERS: PCP Nurse Practitioner Family; Visit Provider Nurse Practitioner Family
DX: H71.91 Unspecified cholesteatoma, right ear (principal); Z12.31 Encounter for screening mammogram for malignant neoplasm of breast
CPT/HCPCS: 70480; 77063; 77067

== ENCOUNTER 2024-07-27 14:16 | Outpatient (CLI) | payer MEDICARE, SELFPAY ==
--- OUTSIDE RECORDS SUMMARY | 2024-05-16 20:00 | XMS_ITS | Encounter Summary ---
Author Organization [facility] Init [facility] Address [address] [place] [address] Care Team Providers Care Life Care Planner Name Role Phone Lalitha Linh Delilah DAVIS Primary Care Provider [phone] Lizzie Alves PA-C Unavailable [phone] Kaushik Mariscal MD Unavailable Reason for Visit * Reason Comments Pacemaker /ICD Home Monitoring Encounter Details Date Type Department Care Team (Late st Contact Info) Description 05/16/2024 8:00 PM EDT Clinical Support [facility] Electrophysiology [address] [place] [address] Kaushik Mariscal MD [address] [facility] [address] [place] [address] Encounter for adjustment or management of cardiac device (Primary Dx); Ischemic cardiomyopathy with implantable cardioverter-defibril lator (ICD); Chronic combined systolic and diastolic congestive heart failure (HCC) Social History Tobacco Use Types Packs/Day Years Used Date Smoking Tobacco: Some Days Cigarettes Passive Smoke Exposure: Never Smokeless Tobacco: Never Alcohol Use Standard Drinks/Week Comments Not Currently 0 (1 standard drink = 0.6 oz pur e alcohol) Interpersonal Safety Answer Date Record ed Family or friends hurt you Not on file 02/27 Family or friends insult you Not on file Family or friends threaten you Not on file 0 02/27/2023 Family or friends scream or curse at you Not on file 02/27/2023 Housing Stability Answer Date Recorded Living situation today Not on file Living situation problems Not on file 2023 Family and Community Support Answer Geremias e Recorded Help with Day to Day Activities Not on file 02/27/2023 Feeling Lonely or Isolated Not on file 02/27 Educational Attainment Answer Date Mendez rded Speak language other than Ugandan at home Not on file 02/27/2023 Want help with school or training Not on file 02/27/2023 Depression Answer Date Recorded PHQ-2 Risk Not on file 02/27/2023 Disabilities Answer Date Recorded Difficulty concentrating Not on file 024 Difficulty doing errands alone Not on file 0 02/27/2023 Substance Use Answer Date Recorded Used prescription meds for non-medical reasons N ot on file 02/27/2023 Used illegal drugs past 12 months Not on file 02/27/2023 Comments No Sex and Gender Information Value Date Recorded Sex Assigned at Not on file Legal Sex Female 3:27 PM CDT Gender Identity Not on file Sexual Orientation Not on file documented as of this encounter Plan of Treatment Not on file documented as of this encounter Visit Diagnoses Diagnosis Encounter for adjustment or management of cardiac device- Primary Ischemic cardiomyopathy with implantable cardioverter-defibrillator (ICD) Chronic combined systolic and diastolic congestive heart failure (HCC) documented in this encounter Care Teams Life Care Planner Relationship Specialty Start Date End Date Linh Doty, [address] [facility] [address] [place] [address] PCP - General Family Medicine 11/04/22 Lizzie Alves PA-C [address] [facility] [address] [place] [address] Hospitalist Cardiology 05/27/23 Kaushik Mariscal MD [address] [facility] [address] [place] [address] [facility] Electrophysiology 11/18/23 documented as of this encounter
--- OUTSIDE RECORDS SUMMARY | 2024-05-30 13:20 | XMS_ITS | Encounter Summary ---
Author Organization [facility] Address [address] [place] [address] Care Team Providers Care Electronic Scale Tester Name Role Phone Kelton Felicitas Delilah DENISE Primary Care Provider [phone]- [phone] Reason for Referral * Consultation (Routine) - Authorized Specialty Diagnoses / Procedures Referred By Contac t Referred To Contact Diagnoses Primary hyperparathyroidism (CMS/HCC) Natalia Alves MD [address] [address] Phone: tel: fax: Referral ID Status Reason Start Date Expiration Date V isits Requested Visits Authorized [id number] Authorized 05/30/2024 11/29/2025 1 1 Reason for Visit * Reason Comments Primary Hyperparathyroidism Encounter Details Date Type Department Care Team (Late st Contact Info) Description 05/30/2024 1:20 PM EDT Office Visit [facility] Endocrinology [address] [place] [address] Natalia Alves MD [address] [address] Primary hyperparathyroidism (CMS/HCC) (Primary Dx) Social History Tobacco Use Types Packs/Day Years Used Date Smoking Tobacco: Former Cigarettes Passive Smoke Exposure: Current Smokeless Tobacco: Never Alcohol Use Standard Drinks/Week Comments Yes 0 (1 standard drink = 0.6 oz pur e alcohol) PHQ-2 Answer Date Recorded Patient Health Questionnaire-2 Score 0 05/30/2024 Comments No Sex and Gender Information Value Date Recorded Sex Assigned at Not on file Legal Sex Female 8:21 PM EDT Gender Identity Not on file Sexual Orientation Not on file documented as of this encounter Last Filed Vital Signs Vital Sign Reading Time Taken Comments Blood Pressure 106/71 05/30/2024 1:21 PM EDT Pulse 80 05/30/2024 1:21 PM EDT Temperature - - Respiratory Rate - - Oxygen Saturation - - Inhaled Oxygen Concentration - - Weight 63.5 kg (139 lb 15.9 oz) 05/30/2024 1:21 PM EDT Height 170.2 cm (5' 7 ) 05/30/2024 1:21 PM EDT Body Mass Index 21.93 05/30/2024 1:21 PM EDT documented in this encounter Functional Status * Over the past 2 weeks, how often have you been bothered by any of the following problems? Question Answer Date of Assessment Author Little interest or pleasure in doing things Not at all 05/30/2024 1:24 PM EDT MorningArabella Feeling down, depressed, or hopeless Not at all 05/30/2024 1:24 PM EDT MorningArabella Patient Health Questionnaire -2 Score 0 05/30/2024 1:24 PM EDT MorningArabella * If you checked off any problems on this questionnaire so far, Question Answer Date of Assessment Author How difficult have these problems made it for you to do your work, take care of things at home, or get along with other people? Not difficult at all 05/30/2024 1:24 PM EDT MorningArabella documented as of this encounter Miscellaneous Notes * Progress Notes - Natalia Alves MD - 05/30/2024 1:20 PM EDT Chief complaint: Primary hyperparathyroidism HPI Lena Chandler is a 58 y.o. female who presents for follow up for hyperparathyroidism. No recent illness or hospitalizations since previous visit. Medical history is significant for CAD, ICM with reduced EF s/p defibrillator, COPD oxygen dependent, HTN, HLD and PAD. Last seen 01/2024 - on presentation: PTH 161, Ca 11.4, iCa 5.9 and vitamin D 17.2. - No history of chronic kidney disease - has hx of compression fractures and DXA done 12/2023- consistent with osteoporosis. T score at spine is -1.7 and at hip -2.9. - 24hr urine calcium done and was low (but with low creatinine, hence inappropriate collection). Also noted collected when vitamin D was low. Review of Systems Constitutional: Positive for fatigue. Negative for unexpected weight change. Respiratory: Negative for shortness of breath. Cardiovascular: Negative for chest pain and palpitations. Gastrointestinal: Negative for abdominal pain, nausea and vomiting. Endocrine: Positive for polyuria (attributed to Farxiga). Negative for cold intolerance and heat intolerance. Musculoskeletal: Negative for back pain. Neurological: Negative for light-headedness. Psychiatric/Behavioral: Negative for confusion and decreased concentration. The following portions of the chart were reviewed this encounter and updated as appropriate: Past Medical History: Diagnosis Date Atherosclerotic heart disease of [place] coronary artery without angina pectoris Coronary artery disease Chronic or unspecified gastric ulcer with perforation (CMS/HCC) Gastric ulcer with perforation Other specified disorders of peritoneum Pneumoperitoneum Personal history of other diseases of the musculoskeletal system and connective tissue History of arthritis Personal history of other diseases of the respiratory system History of asthma Past Surgical History: Procedure Laterality Date CARDIAC DEFIBRILLATOR PLACEMENT N/A Implantable Cardioverter-Defibrillator from [employer] OTHER SURGICAL HISTORY N/A Transcath Placement Of Intrathoracic Carotid Artery Stent from [employer] Family History Problem Relation Name Age of Onset Hypertension Father Social History Tobacco Use Smoking status: Former Types: Cigarettes Passive exposure: Current Smokeless tobacco: Never Substance Use Topics Alcohol use: Yes Current Outpatient Medications Medication Instructions albuterol 108 (90 Base) MCG/ACT inhaler INHALE TWO PUFFS BY MOUTH FOUR TIMES DAILY NEEDED FOR SHORTNESS OF BREATH OR wheezing cetirizine (ZyrTEC) 10 MG tablet TAKE ONE TABLET BY MOUTH EVERY DAY NEEDED FOR ALLERGY SYMPTOMS Eliquis 5 mg, 2 times daily Farxiga 10 mg, Daily fluticasone (Flonase) 50 MCG/ACT nasal spray instill 1 SPRAY IN EACH NOSTRIL EVERY DAY folic acid (Folvite) 1 MG tablet 1 tablet, Daily furosemide (Lasix) 20 MG tablet 1 tablet, Every morning magnesium oxide (Mag-Ox) 400 (240 Mg) MG tablet 1 tablet, 3 times daily metoprolol succinate XL (TOPROL-XL) 50 mg, ZZ Daily RT montelukast (SINGULAIR) 10 mg, Every evening omeprazole (PRILOSEC) 40 mg, Daily rosuvastatin (CRESTOR) 10 mg, Every evening spironolactone (ALDACTONE) 25 mg traMADol (ULTRAM) 50 mg, Every 6 hours PRN Trelegy Ellipta 100-62.5-25 MCG/ACT aerosol powder 1 puff Visit Vitals BP 106/71 (BP Location: Left arm, Patient Position: Sitting, BP Cuff Size: Adult) Pulse 80 Ht 1.702 m (5' 7 ) Wt 63.5 kg (139 lb 15.9 oz) BMI 21.93 kg/m?? OB Status Postmenopausal Smoking Status Former BSA 1.73 m?? Physical Exam Constitutional: Appearance: Normal appearance. Eyes: Pupils: Pupils are equal, round, and reactive to light. Cardiovascular: Rate and Rhythm: Normal rate and regular rhythm. Pulses: Normal pulses. Heart sounds: Normal heart sounds. Pulmonary: Effort: Pulmonary effort is normal. Breath sounds: Normal breath sounds. Abdominal: General: Bowel sounds are normal. Palpations: Abdomen is soft. Musculoskeletal: General: Normal range of motion. Skin: General: Skin is warm. Capillary Refill: Capillary refill takes less than 2 seconds. Neurological: General: No focal deficit present. Mental Status: She is alert and oriented to person, place, and time. Psychiatric: Mood and Affect: Mood normal. Imaging NM PARATHYROID SCAN W SPECT CT 01/18/2024 IMPRESSION: Parathyroid Glands: Enlarged hypercellular parathyroid gland identified in left neck in region of superior left thyroid lobe. Thyroid Gland: Grossly normal with small nodule. Bilateral pulmonary nodules. Further evaluation with dedicated CT chest could be considered. DXA done 12/2023- consistent with osteoporosis. T score at spine is -1.7 and at hip -2.9. Lab review: Latest Reference Range & Units 11/17/23 11:32 01/29/24 13:45 Creatinine 0.60 - 1.10 mg/dL 0.92 1.00 EGFR mL/min/1.73m*2 71.9 65.0 Calcium 8.9 - 10.2 mg/dL 11.4 (H) 9.7 Albumin 3.5 - 5.2 g/dL 4.4 4.2 Phosphorus 2.5 - 4.5 mg/dL 3.1 2.8 Calcium, Ionized 4.6 - 5.3 mg/dL 5.9 (H) 5.3 Vit D, 25-Hydroxy 20.0 - 80.0 ng/mL 17.2 (L) 41.0 PTH Intact Total 9 - 77 pg/mL 161 (H) 351 (H) Assessment and Plan: Primary hyperparathyroidism Meets criteria for surgery given Ca of 11, osteoporosis and hx of compression fractures. 24hr urine calcium low (but with low creatinine, hence inappropriate collection). Also noted collected when vitamin D was low. Sestamibi scan with enlarged hypercellular parathyroid gland identified in left neck in region of superior left thyroid lobe. Has appointment scheduled with endo surgery this week 06/02/2024 to discuss possible parathyroidectomy PLAN: - Had labs done by her primary but the records are not available, she will send us the labs via [employer] - Follow with endo surgery for possible parathyroidectomy if she deemed a candidate Pulmonary nodules Incidental finding on Sestamibi scan She follows up with pulmonology for COPD but hasn't had a CT for many years Former smoker Plan Recommend CT chest to further evaluate the nodules, patient deferred to her lung doctor She confirmed she will follow with her local lung doctor and have repeat CT chest Vitamin D deficiency - improved Rechecked vit D level last visit, normalized ICM with reduced EF s/p implantable defibrillator HTN, HLD PAD BP at goal this visit Current meds: Eliquis, Crestor, Farxiga, metoprolol and lasix Followed by cardiology Prediabetes- A1c 06/2023 5.9, followed by PCP. Already on Farxiga for the HFrEF. COPD oxygen dependent- controlled on inhalers RTC in 6 months. I personally spent a total of 30 minutes on this encounter. This time includes encounter with patient, counseling, discussion, reviewing chart, interpreting data and/or coordination of care. Natalia Alves MD Division of Endocrinology, Diabetes and Metabolism [facility] Diabetes [facility] documented in this encounter Plan of Treatment Upcoming Encounters Date Type Department Care Team (Late st Contact Info) Description 11/30/2024 2:20 PM EDT Office Visit [facility] Endocrinology [address] [place] [phone] Natalia Alves MD [address] [facility] [address] [place] [address] 12/08/2024 3:00 PM EDT Office Visit Medical Office Building Surgical Specialties [address] [facility], [address] [place] [address] Amish Escobedo MD [address] [facility] [address] [place] [address] Scheduled Referrals Name Type Priority Associated Diagnoses Orde r Schedule Follow Up [facility] Outpatient Referral Routine Primary hyperparathyroidism (CMS/HCC) Expected: 11/29/2024, Expires: 06/29/2025 documented as of this encounter Visit Diagnoses Diagnosis Primary hyperparathyroidism (CMS/HCC)- Primary Primary hyperparathyroidism documented in this encounter Additional Health Concerns Assessment Noted Time A Body Mass Index follow-up plan has been documented for the patient 05/30/2024 1:38 PM EDT documented as of this encounter Care Teams Electronic Scale Tester Relationship Specialty Start Date End Date Felicitas Melara APRN [address] [place] [address] PCP - General 01/29/24 documented as of this encounter
--- OUTSIDE RECORDS SUMMARY | 2024-06-02 14:00 | XMS_ITS | Encounter Summary ---
Author Organization [facility] Address [address] [place] [address] Care Team Providers Care Edge Banding Off Bearer Name Role Phone Felicitas Melara APRN Primary Care Provider [phone] Reason for Referral * Consultation (Routine) - Closed Specialty Diagnoses / Procedures Referred By Adria t Referred To Contact Genetics Diagnoses Primary hyperparathyroidism (CMS/HCC) Amish Escobedo MD [address] [address] Phone: tel: fax: [facility] Genetic Counseling [address] [place] [address] Phone: tel: fax: Referral ID Status Reason Start Date Expiration Date V isits Requested Visits Authorized [id number] Closed Specialty Services Required 06/02/2024 12/02/2025 1 1 Reason for Visit * Reason Comments Consult * Consultation (Routine) - Closed Specialty Diagnoses / Procedures Referred By Contac t Referred To Contact General, Endocrine & Minimally Invasive Surgery / General Surgery Diagnoses Primary hyperparathyroidism (CMS/HCC) Natalia Alves MD [address] [place] [address] [address] [place] [address] Phone: tel: fax: Amish Escobedo MD [address] [facility] [address] [place] [address] Phone: tel: fax:[phone] Referral ID Status Reason Start Date Expiration Date V isits Requested Visits Authorized [id number] Closed Specialty Services Required 01/29/2024 07/30/2025 1 1 Encounter Details Date Type Department Care Team (Latest Contact Info) Description 06/02/2024 2:00 PM EDT Consult Medical Office Building Surgical Specialties [address], [address] [place] [address] Amish Escobedo MD [address] [place] [address] Primary hyperparathyroidism (CMS/HCC) Social History [...] Recorded Patient Health Questionnaire-2 Score 0 05/30/2024 [facility] of Occupat ional [facility] - Occupational Stress Questionnaire Answer Date Recorded [...] the past 12 months has th e [employer], gas, oil, or water [employer] threatened to shut off services in your [...] night. 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 Patient has had coronary intervention with stents [...] are permanently stored and available in the [facility] PACS system. Indication: Concern for hyperparathyroidism Prior [...] History: Diagnosis Date Atherosclerotic heart disease of [place] coronary artery without angina pectoris Coronary artery [...] CARDIAC DEFIBRILLATOR PLACEMENT N/A Implantable Cardioverter-Defibrillator from [employer] OTHER SURGICAL HISTORY N/A Transcath Placement Of Intrathoracic Carotid Artery Stent from [employer] [3] Family History Problem Relation Name Age [...] above. Thank you, Amish Escobedo MD, FACS housekeeper and laundry assistant General, Endocrine & Metabolic Surgery documented in this encounter Plan of Treatment Upcoming Encounters Date Type Department Care Team (Late st Contact Info) Description 11/30/2024 2:20 PM EDT Office Visit [facility] Endocrinology [address] [place] [phone] Natalia Alves MD [address] [place] [phone] 12/08/2024 3:00 PM EDT Office Visit Medical Office Building Surgical Specialties [address] [place] [address] [facility]ish [facility]edo MD [address] [facility] [address] [place] [address] Scheduled Referrals Name Type Priority [...] documented as of this encounter Care Teams Edge Banding Off Bearer Relationship Specialty Start Date End Date Felicitas Melara APRN [address] [place] [address] PCP - General 01/29/24 documented as of this encounter
--- OUTSIDE RECORDS SUMMARY | 2024-06-13 06:00 | XMS_ITS | Encounter Summary ---
Author Organization [facility] Address [address] [place] [address] Care Team Providers Care Eap Consultant Name Role Phone Lalitha Linh Delilah DAVIS Primary Care Provider [phone] Lizzie Alves PA-C Unavailable [phone] Kaushik Mariscal MD Unavailable Reason for Visit * Reason Comments Pacemaker /ICD Home Monitoring Encounter Details Date Type Department Care Team (Late st Contact Info) Description 06/13/2024 6:00 AM EDT Clinical Support [facility] Electrophysiology [address] [place] [address] Kaushik Mariscal MD [address] [facility] [address] [place] [address] Encounter for adjustment or management of cardiac [...] Date Mendez rded Speak language other than Macedonian at home Not on file 02/27/2023 Want [...] (HCC) documented in this encounter Care Teams Eap Consultant Relationship Specialty Start Date End Date Linh Doty, [address] [facility] [address] [place] [address] PCP - General Family Medicine 11/04/22 Lizzie Alves PA-C [address] [facility] [address] [place] [address] Hospitalist Cardiology 05/27/23 Kaushik Mariscal MD [address] [facility] [address] [place] [address] Financial Consultant Electrophysiology 11/18/23 documented as of this encounter
--- OUTSIDE RECORDS SUMMARY | 2024-07-11 06:00 | XMS_ITS | Encounter Summary ---
Author Organization [employer] [facility] Address [address] [place] [address] Care Team Providers Care Bank Accountant Name Role Phone Linh Doty DO Primary Care Provider [phone] Lizzie Alves PA-C Unavailable [phone] Kaushik Mariscal MD Unavailable Reason for Visit * Reason Comments Pacemaker /ICD Home Monitoring Encounter Details Date Type Department Care Team (Late st Contact Info) Description 07/11/2024 6:00 AM EDT Clinical Support [facility] Electrophysiology [address] [place] [address] Louise Gottlieb MD [address] [facility] [address] [place] [address] Encounter for adjustment or management of cardiac [...] Date Mendez rded Speak language other than Ecuadorean at home Not on file 02/27/2023 Want [...] (HCC) documented in this encounter Care Teams Bank Accountant Relationship Specialty Start Date End Date Linh Doty, [address] [facility] [address] [place] [address] PCP - General Family Medicine 11/04/22 Lizzie Alves PA-C [address] [facility], [facility] [address] [place] [address] Hospitalist Cardiology 05/27/23 Kaushik Mariscal MD [address] [facility] [address] [place] [address] [employer] Electrophysiology 11/18/23 documented as of this encounter
--- OUTSIDE RECORDS SUMMARY | 2024-07-13 14:30 | XMS_ITS | Encounter Summary ---
Author Organization [facility] Address [address] [place] [id number] Care Team Providers Care Fur Tanner Name Role Phone Felicitas Melara APRN Primary Care Provider [phone]- [phone] Reason for Visit * Reason Comments Genetic Counseling * Consultation (Routine) - Closed Specialty Diagnoses / Procedures Referred By Contac t Referred To Contact Genetics Diagnoses Primary hyperparathyroidism (CMS/HCC) Amish Escobedo MD [address] [facility] [address] [place] [address] Phone: tel: fax: [facility] [address] [facility], [address] [place] [address] Phone: tel: fax: Referral ID Status Reason Start Date Expiration Date V isits Requested Visits Authorized [id number] Closed Specialty Services Required 06/02/2024 12/02/2025 1 1 Encounter Details Date Type Department Care Team ([facility] Contact Info) Description 07/13/2024 2:30 PM EDT Clinical Support Pav CC Head, Neck & Respiratory [address] [facility] [place] [address] Kia Humphries, JOSE [address] [facility] Siria [facility] [address] [place] [address] Encounter for nonprocreative genetic counseling [...] Recorded Patient Health Questionnaire-2 Score 0 05/30/2024 [facility] - Occupational Stress [...] Recorded In the past 12 months has [employer] electric, gas, oil, or water company threatened [...] from the original note were not included. [facility] Clinical Cancer Genetics Consultation Patient Name: Lena Chandler Date of : 1965 Lena is a 58 y.o. female referred by for genetic counseling regarding a personal history of elevated parathyroid hormone levels. She was accompanied to her visit by her son. Per the records provided with the referral, Lean has been followed for concern of elevated parathyroid hormone in the setting of osteoporosis. 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 Ms. Chandler reports a personal history of an unknown gynecological cancer in year 2003 at age 38 s/p hysterectomy. Clinical summary documentation from [facility] report endocervical cancer. However, no pathology was [...] the patient's family. She denies any Ashkenazi Faith ancestry or consanguinity. CANCER RISK ASSESSMENT AND GENETIC COUNSELING: We reviewed that Lena was referred for genetic counseling and consideration of genetic testing in light of her clinical education manager's suspicion for FamilialHypocalciuric Hypercalcemia (FHH). In regard to FHH, we discussed that this condition tends to present in adulthood with elevated levels of calcium in the blood (hypercalcemia) with syacdc-gi-orh level of calcium in the urine (hypercalciuria). [...] cost for genetic testing for FHH/PHPTH through [facility] lab is $250. We also discussed the option of CancerNext-Expanded panel through [employer] laboratory. We explained possible results of genetic [...] breast MRI in addition to mammography. The [place] Cancer Society guidelines state breast cancer screening [...] 10 years beginning at age 45. The [place] Cancer Society (ACS) now recommends that adults [...] degree relative is diagnosed with prostate cancer). -Finnish males have a higher chance to have prostate cancer than males. Therefore, -Finnish males should have yearly prostate cancer screening including rectal exam and PSA blood test starting at age 40. SKIN: The patient reported a family history of skin cancer, therefore it is recommended that the patient have annual skin examinations by a certified appliance service technician. LUNG: The NCCN says that people should talk with their doctor about the benefits and limitations oflung cancer screening if they are at least 50 years old, have smoked for 20 years or more and/or have smoked the equivalent of a cflt-xva-coi for 20 years, and if they are [...] at www.smokefree.gov. For more information, call the [facility] Lung Cancer Screening family resource coordinator at [phone] (754-AIH-BYFZ) or [phone], or email [email or web address]. You must have a primary care provider [...] or concerns. I can be reached at [phone]. Total time regarding patient care was approximately 75 minutes. Written information regarding genetic testing was given to the patient at the time of their appointment. documented in this encounter Plan of Treatment Upcoming Encounters Date Type Department Care Team (Late st Contact Info) Description 11/30/2024 2:20 PM EDT Office Visit [facility] Endocrinology [address] [place] [address] Natalia Alves MD [address] [facility] [address] [place] [address] 12/08/2024 3:00 PM EDT Office Visit Medical Office Building Surgical Specialties [address] [facility], [address] [place] [address] Amish Escobedo MD [address] [facility] [address] [place] [address] documented as of this encounter [...] documented as of this encounter Care Teams Fur Tanner Relationship Specialty Start Date End Date Felicitas Melara APRN [address] [place] [address] PCP - General 01/29/24 documented as of this encounter
--- OUTSIDE RECORDS SUMMARY | 2024-07-15 05:00 | XMS_ITS | Encounter Summary ---
Author Organization [employer] [facility] Address [address] [place] [address] Care Team Providers Care Cattle Alley Worker Name Role Phone Linh Doty DO Primary Care Provider [phone] Lizzie Alves PA-C Unavailable [phone] Kaushik Mariscal MD Unavailable Reason for Visit * Reason Comments Pacemaker /ICD Home Monitoring Encounter Details Date Type Department Care Team (Late st Contact Info) Description 07/15/2024 5:00 AM EDT Clinical Support [facility] Electrophysiology [address] [place] [address] Louise Gottlieb MD [address] [facility] [address] [place] [address] Encounter for adjustment or management of cardiac [...] (HCC) documented in this encounter Care Teams Cattle Alley Worker Relationship Specialty Start Date End Date Linh Doty, [address] [facility] [address] [place] [address] PCP - General Family Medicine 11/04/22 Lizzie Alves PA-C [address] [facility], [facility] [address] [place] [address] Hospitalist Cardiology 05/27/23 Kaushik Mariscal MD [address] [facility] [address] [place] [address] Neurology Director Electrophysiology 11/18/23 documented as of this encounter
--- OUTSIDE RECORDS SUMMARY | 2024-07-27 14:20 | XMS_ITS | Encounter Summary ---
Author Organization [employer] [facility] Init iatives Address [address] [place] [address] Care Team Providers Care Rotary Soil Stabilizer Name Role Phone Linh Doty DO Primary Care Provider [phone] Lizzie Alves PA-C Unavailable [phone] Kaushik Mariscal MD Unavailable Encounter Details Date Type Department Care Team (Late st Contact Info) Description 07/16/2021 Transcribed Document [facility] [address] [place] [address] ProviderChad MD [address] [place] [address] Social History Tobacco Use Types Packs/Day Years Used Date Smoking Tobacco: Never Assessed Comments Unknown Sex and Gender Information Value Date Recorded Sex Assigned at Not on file Legal Sex Female 3:27 PM CDT Gender Identity Not on file Sexual Orientation Not on file documented as of this encounter Miscellaneous Notes * Cerner Conversion Note - Chad Merchant MD - 07/16/2021 3:10 PM CDT Consult Phone Call Documentation Entered On: 07/18/2021 7:36 EDT Performed On: 07/16/2021 15:10 EDT by Wanda Gill SWAN Phone Call for Consults Physician Requesting Consult : MIRELLA GEORGE MD-CAR Physician Requested for Consult : ANAHY CHRISTIE MD-INF Date and Time Call Returned : 07/16/2021 16:22 EDT Physician Returning Call : HANANE WILSON MD-INF BridgetWanda SWAN - 07/18/2021 7:35 EDT Electronically signed by [facility], [facility] Conversion [employer] Combination Teacher Cerner at 05/27/2022 9:14 PM CDT documented in this encounter Plan of Treatment Not on file documented as of this encounter Visit Diagnoses Not on filedocumented in this encounter Care Teams Rotary Soil Stabilizer Relationship Specialty Start Date End Date Linh Doty, [address] [facility] [address] [place] [address] PCP - General Family Medicine 11/04/22 Lizzie Alves PA-C [address] [place] [address], [facility] [address] [place] [address] Hospitalist Cardiology 05/27/23 Kaushik Mariscal MD [address] [facility] [address] [place] [address] Facing Slitter Electrophysiology 11/18/23 documented as of this encounter
--- OUTSIDE RECORDS SUMMARY | 2024-07-27 14:20 | XMS_ITS | Encounter Summary ---
Author Organization Healthcare Address [address] [place] [address] Care Team Providers Care Branding Machine Operator Name Role Phone Annette Melaranicaryl Mazariegos APRN Primary Care Provider [phone] Encounter Details Date Type Department Care Team (Late st Contact Info) Description 06/02/2024 Orders Only External Location [address] [place] [address] Provider, External Social History Tobacco Use Types [...] In the past 12 months has e [employer], gas, oil, or water company threatened to [...] 11/30/2024 2:20 PM EDT [facility] [address] [place] [address] Natalia Alves MD [address] [place] [address] 12/08/2024 3:00 PM EDT Office Visit Medical Office Building Surgical Specialties [address], [address] [place] [address] Amish Escobedo MD [address] [facility] [address] [place] [address] documented as of this encounter [...] documented as of this encounter Care Teams Branding Machine Operator Relationship Specialty Start Date End Date Felicitas Melara APRN [address] [place] [address] PCP - General 01/29/24 documented as of this encounter
--- OUTSIDE RECORDS SUMMARY | 2024-07-27 14:20 | XMS_ITS | Encounter Summary ---
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 Name Role Phone Linh William DO Primary Care Provider [phone] Lizzie Alves PA-C Unavailable [phone] Dion Mariscal MD Unavailable Encounter Details Date Type Department Care Team (Late st Contact Info) Description 08/27/2021 Transcribed Document [facility] Family Medicine [address] [place] [id number] ProviderChad MD [address] [place] [id number] Social History Tobacco Use Types Packs/Day Years Used Date Smoking Tobacco: Never Assessed Comments Unknown Sex and Gender Information Value Date Recorded Sex Assigned at Not on file Legal Sex Female 3:27 PM CDT Gender Identity Not on file Sexual Orientation Not on file documented as of this encounter Miscellaneous Notes * Cerner Conversion Note - Chad Merchant MD - 08/27/2021 12:41 PM CDT [facility] [place] [address] LENA MENDOZA :1965 Visit Time:08/26/2021 Your Visit Summary Your Care Team Admitting Physician - DION MARISCAL MD-CAR Attending Physician - DION MARISCAL MD-REJI Primary Care Physician - LINH WILLIAM DO-KRISS Referring Physician - DION MARISCAL MD-REJI Your Diagnosis Ventricular tachycardia, Ventricular tachycardia These Are Your Goals No qualifying data available. Discharge Vitals Temperature 36.6 ??C Heart Rate (Monitored) 84 Blood Pressure 96/62 What to do next Instructions From Your Care Team Diet after Discharge: Resume usual diet as tolerated Activity after Discharge: Rest and relax today, No strenuous activity, No lifting/pushing/pulling more than 10 pounds for 1 week. Driving Restrictions: No driving until cleared by your physician. Showering/Bathing: No showering for 24 hours., No tub bathing, soaking or swimming for 3-5 days until site is healed. Medications: No changes to your current home medications. Dressing Instructions: Leave Aquacel dressing in place until your follow up appointment. NO BLOOD THINNERS PLAVIX OR ELIQUIS UNTIL AFTER YOUR FOLLOW UP WITH DR MARISCAL Wound/Incision Care Instructions: Keep operative site/wound clean and dry. Do not remove Aquacel dressing until seen in clinic in1 week. Follow-Up Appointments Follow Up with PUNEET BROOKS MD-CAR When 10/11/2021 09:00 AM EDT Comments CARDIOLOGY appt made, Bring discharge instructions with you Where: [address] [facility] [address] [place] [address]- Follow Up with LINH WILLIAM DO-FAM When 09/04/2021 10:00 AM EDT Comments PCP appt made, Bring discharge instructions with you Where: [address] [place] [address]- Follow Up with DION MARISCAL When 09/03/2021 02:00 PM EDT Comments wound device check in 1 week scheduled for 09/03/20[address] at [address] Mariscal Where: [address] [facility] [address] [place] [address]- Business (1) Medications What How Much When Instructions Next Dose cephalexin (Keflex 500 mg oral capsule) 1 Capsule(s) Oral Three Times A Day Duration: 7 Day(s) Pickup at [facility] [place] this afternoon and evening nicotine (nicotine 14 mg/ 24 hr transdermal film, extended release) 1 Patch(es) TransDermal Every Day Duration: 14 Day(s) Pickup at [facility] [place] tomorrow acetaminophen-hydrocodone (acetaminophen-HYDROcodone 325 mg-5 mg oral tablet) 1 Tablet(s) Oral Every 8 Hours as needed for for pain as needed carvedilol (carvedilol 12.5 mg oral tablet) 1 Tablet(s) Oral Two Times A Day this evening ergocalciferol (Vitamin D2 1.25 mg (50,000 intl units) oral capsule) 1 Capsule(s) Oral Weekly check your schedule fluticasone nasal (fluticasone 50 mcg/ inh nasal spray) 2 [place](s) Nasal Every Day as needed for Nasal Congestion tomorrow furosemide (furosemide 20 mg oral tablet) 1 Tablet(s) Oral Every Day tomorrow gabapentin (gabapentin 600 mg oral tablet) 1 Tablet(s) Oral Three Times A Day this afternoon and evening lisinopril (lisinopril 20 mg oral tablet) 1 Tablet(s) Oral Every Day tomorrow pantoprazole (pantoprazole 40 mg oral delayed release tablet) 1 Tablet(s) Oral Every Day tomorrow potassium chloride (Potassium Chloride (Eqv-K-Tab) 10 mEq oral tablet, extended release) 1 Tablet(s) Oral Every Day tomorrow rosuvastatin (Crestor 10 mg oral tablet) 1 Tablet(s) Oral At Bedtime at bedtime topiramate (topiramate 25 mg oral tablet) 1 Tablet(s) Oral At Bedtime at bedtime Pharmacy Information [facility] [place]: [address] [place] [address] [address] [place], [place] [id number] [phone] Take your medications faithfully. Do NOT skip medication. Do NOT stop taking medications without the direction of a physician. Carry a list of your medications with you at all times, and take this medication list with you to your first follow up visit. Report any side effects. Avoid herbal remedies unless discussed with your physician. As part of your treatment plan, your physician may have prescribed a limited course of a controlled substance. This medication may be given to help people with moderate or severe pain or for other medical conditions, but there are risks involved with treatment. Common side effects may include nausea, constipation, drowsiness, sweating, itching, dry mouth, and rash. More serious side effects may include cognitive and motor impairment, like problems with thinking, concentrating, alertness, and movement (e.g. slowed reflexes), and driving and operating heavy machinery can be dangerous. It is important for you to talk to your physician if you have these side effects or questions. These controlled substances can produce physical dependence and be habit-forming if taken for an extended period of time, which means that the body has gotten used to them and may experience withdrawal symptoms if they are abruptly stopped. Withdrawal symptoms can include runny nose, sweating, goose bumps, diarrhea, abdominal cramping, rapid heartbeat, difficulty sleeping, and nervousness. Please dispose of unused and medications per your retail pharmacy guidance. Allergies No Known Allergies Immunizations This Visit No Immunizations Found Education Materials Pacemaker Implantation, Adult, Care After This sheet gives you information about how to care for yourself after your procedure. Your health care provider may also give you more specific instructions. If you have problems or questions, contact your health care provider. What can I expect after the procedure? After the procedure, it is common to have: ??? Mild pain. ??? Slight bruising. ??? Some swelling over the incisions. ??? A slight bump over the skin where the device was placed (if it was implanted in the upper chest area). Sometimes, it is possible to feel the device under the skin. This is normal. Follow these instructions at home: Medicines ??? Take qnmz-nop-uoklhwi and prescription medicines only as told by your health care provider. ??? If you were prescribed an antibiotic medicine, take it as told by your health care provider. Do not stop taking the antibiotic even if you start to feel better. ??? Ask your health care provider if the medicine prescribed to you requires you to avoid driving or using machinery. Incision site care ??? Do not remove the bandage (dressing) on your chest until you are told to do so by your health care provider. ??? After your dressing is removed, you may see pieces of tape called skin adhesive strips over the incision site. Let the strips fall off on their own. ??? Check your incision area every day for signs of infection. Check for: ? More redness, swelling, or pain. ? Fluid or blood. ? Warmth. ? Pus or a bad smell. ??? Do not use lotions or ointments near the incision site unless you are told to do so. ??? Keep the incision area clean and dry for 2???3 days after the procedure or as told by your health care provider. It takes several weeks for the incision site to completely heal. ??? Women may want to place a small pad over the incision site to protect it from their bra strap. ??? Do not take baths, swim, or use a hot tub for 7???10 days or until your health care provider approves. Ask your health care provider if you may take showers. You may only be allowed to take sponge baths. Activity ??? If you were given a medicine to help you relax (sedative) during the procedure, it can affect you for several hours. Do not drive or operate machinery until your health care provider says that it is safe. ??? Return to your normal activities as told by your health care provider. Ask your health care provider what activities are safe for you. ??? Do not lift anything that is heavier than 10 lb (4.5 kg), or the limit that you are told, until your health care provider says that it is safe. ??? Avoid sudden jerking, pulling, or chopping movements that pull your upper arm far away from your body. Avoid these movements for at least 6 weeks or as long as told by your health care provider. ??? Do not lift your upper arm above your shoulders for at least 6 weeks or as long as told by your health care provider. This includes activities like tennis, golf, or swimming. ??? You may go back to work when your health care provider says it is okay. Electricity and magnetic isaacs ??? Avoid places or objects that have a strong electric or magnetic field, including: ? Airport security checkpoints. When at the airport, let officials know that you have a pacemaker. Carry your pacemaker ID card. ? Metal detectors. If you must pass through a metal detector, walk through it quickly. Do not stop under the detector or stand near it. ? Power plants. ? Large electrical generators. ? Radiofrequency transmission towers, such as mobile phone and radio towers. ??? Do not use amateur radio equipment or electric welding torches. If you are unsure of whether something is safe to use, ask your health care provider. Some devices may be safe to use if you hold them at least 1 ft (0.3 m) from your pacemaker. These devices may include power tools, lawn mowers, and speakers. ??? When using your mobile phone, hold it to the ear opposite the pacemaker. Do not leave your mobile phone in a pocket over the pacemaker. Long-term care ??? You may be shown how to transfer data from your pacemaker through the phone to your health care provider. ??? Always let all health care providers, including dentists, know about your pacemaker before you have any medical procedures or tests. ??? Wear a medical ID bracelet or necklace stating that you have a pacemaker. ??? Carry a pacemaker ID card with you at all times. ??? Your pacemaker battery will last for 5???15 years. Your health care provider will do routine checks to know when the battery is starting to run down. When this happens, the pacemaker will need to be replaced. General instructions ??? Do not use any products that contain nicotine or tobacco, such as cigarettes, e-cigarettes, and chewing tobacco. These can delay incision healing after surgery. If you need help quitting, ask your health care provider. ??? Follow instructions from your health care provider about eating or drinking restrictions. ??? Weigh yourself every day. If you suddenly gain weight, fluid may be building up in your body. ??? Keep all follow-up visits as told by your health care provider. This is important. During follow-up visits, your pacemaker will be checked and reprogrammed if necessary. Contact a health care provider if: ??? You gain weight suddenly. ??? Your legs or feet swell. ??? It feels like your heart is fluttering or skipping beats (you have heart palpitations). ??? You have any of these signs of infection: ? More redness, swelling, or pain around an incision. ? Fluid or blood coming from an incision. ? Warmth coming from an incision. ? Pus or a bad smell coming from an incision. ? A fever or chills. Get help right away if: ??? You have chest pain. ??? You have trouble breathing or are short of breath. ??? You become extremely tired. ??? You are light-headed or you faint. These symptoms may represent a serious problem that is an emergency. Do not wait to see if the symptoms will go away. Get medical help right away. Call your local emergency services (911 in the [place] Do not drive yourself to the hospital. Summary ??? After the procedure, it is common to have mild pain, swelling, or bruising over the incision. ??? Take mbbf-zja-lfbztoy and prescription medicines only as told by your health care provider. ??? Do not raise your arm above your shoulder or lift anything that is heavier than 10 lb (4.5 kg), or the limit that you are told, until your health care provider says that it is safe. ??? Carry a pacemaker ID card with you at all times. This information is not intended to replace advice given to you by your health care provider. Make sure you discuss any questions you have with your health care provider. Document Revised: 12/28/2019 Document Reviewed: 12/28/2019 [employer] Patient Education ?? 2020 [employer]. General Anesthesia, Adult, Care After This sheet gives you information about how to care for yourself after your procedure. Your health care provider may also give you more specific instructions. If you have problems or questions, contact your health care provider. What can I expect after the procedure? After the procedure, the following side effects are common: ??? Pain or discomfort at the IV site. ??? Nausea. ??? Vomiting. ??? Sore throat. ??? Trouble concentrating. ??? Feeling cold or chills. ??? Feeling weak or tired. ??? Sleepiness and fatigue. ??? Soreness and body aches. These side effects can affect parts of the body that were not involved in surgery. Follow these instructions at home: For the time period you were told by your health care provider: ??? Rest. ??? Do not participate in activities where you could fall or become injured. ??? Do not drive or use machinery. ??? Do not drink alcohol. ??? Do not take sleeping pills or medicines that cause drowsiness. ??? Do not make important decisions or sign legal documents. ??? Do not take care of children on your own. Eating and drinking ??? Follow any instructions from your health care provider about eating or drinking restrictions. ??? When you feel hungry, start by eating small amounts of foods that are soft and easy to digest (bland), such as toast. Gradually return to your regular diet. ??? Drink enough fluid to keep your urine pale yellow. ??? If you vomit, rehydrate by drinking water, juice, or clear broth. General instructions ??? If you have sleep apnea, surgery and certain medicines can increase your risk for breathing problems. Follow instructions from your health care provider about wearing your sleep device: ? Anytime you are sleeping, including during daytime naps. ? While taking prescription pain medicines, sleeping medicines, or medicines that make you drowsy. ??? Have a responsible adult stay with you for the time you are told. It is important to have someone help care for you until you are awake and alert. ??? Return to your normal activities as told by your health care provider. Ask your health care provider what activities are safe for you. ??? Take pcrn-wpr-iftczjr and prescription medicines only as told by your health care provider. ??? If you smoke, do not smoke without supervision. ??? Keep all follow-up visits as told by your health care provider. This is important. Contact a health care provider if: ??? You have nausea or vomiting that does not get better with medicine. ??? You cannot eat or drink without vomiting. ??? You have pain that does not get better with medicine. ??? You are unable to pass urine. ??? You develop a skin rash. ??? You have a fever. ??? You have redness around your IV site that gets worse. Get help right away if: ??? You have difficulty breathing. ??? You have chest pain. ??? You have blood in your urine or stool, or you vomit blood. Summary ??? After the procedure, it is common to have a sore throat or nausea. It is also common to feel tired. ??? Have a responsible adult stay with you for the time you are told. It is important to have someone help care for you until you are awake and alert. ??? When you feel hungry, start by eating small amounts of foods that are soft and easy to digest (bland), such as toast. Gradually return to your regular diet. ??? Drink enough fluid to keep your urine pale yellow. ??? Return to your normal activities as told by your health care provider. Ask your health care provider what activities are safe for you. This information is not intended to replace advice given to you by your health care provider. Make sure you discuss any questions you have with your health care provider. Document Revised: 10/11/2020 Document Reviewed: 05/10/2020 [employer] Patient Education ?? 2020 [employer] Heart-Healthy Eating Plan Heart-healthy meal planning includes: ??? Eating less unhealthy fats. ??? Eating more healthy fats. ??? Making other changes in your diet. Talk with your doctor or a diet specialist (dietitian) to create an eating plan that is right for you. What is my plan? Your doctor may recommend an eating plan that includes: ??? Total fat: % or less of total calories a day. ??? Saturated fat: % or less of total calories a day. ??? Cholesterol: less than mg a day. What are tips for following this plan? Cooking Avoid frying your food. Try to bake, boil, grill, or broil it instead. You can also reduce fat by: ??? Removing the skin from poultry. ??? Removing all visible fats from meats. ??? Steaming vegetables in water or broth. Meal planning ??? At meals, divide your plate into four equal parts: ? Fill one-half of your plate with vegetables and green salads. ? Fill one-fourth of your plate with whole grains. ? Fill one-fourth of your plate with lean protein foods. ??? Eat 4???5 servings of vegetables per day. A serving of vegetables is: ? 1 cup of raw or cooked vegetables. ? 2 cups of raw leafy greens. ??? Eat 4???5 servings of fruit per day. A serving of fruit is: ? 1 medium whole fruit. ? ?? cup of dried fruit. ? ?? cup of fresh, frozen, or canned fruit. ? ?? cup of 100% fruit juice. ??? Eat more foods that have soluble fiber. These are apples, broccoli, carrots, beans, peas, and barley. Try to get 20???30 g of fiber per day. ??? Eat 4???5 servings of nuts, legumes, and seeds per week: ? 1 serving of dried beans or legumes equals ?? cup after being cooked. ? 1 serving of nuts is ?? cup. ? 1 serving of seeds equals 1 tablespoon. General information ??? Eat more home-cooked food. Eat less restaurant, buffet, and fast food. ??? Limit or avoid alcohol. ??? Limit foods that are high in starch and sugar. ??? Avoid fried foods. ??? Lose weight if you are overweight. ??? Keep track of how much salt (sodium) you eat. This is important if you have high blood pressure. Ask your doctor to tell you more about this. ??? Try to add vegetarian meals each week. Fats ??? Choose healthy fats. These include olive oil and canola oil, flaxseeds, walnuts, almonds, and seeds. ??? Eat more omega-3 fats. These include salmon, mackerel, sardines, tuna, flaxseed oil, and ground flaxseeds. Try to eat fish at least 2 times each week. ??? Check food labels. Avoid foods with trans fats or high amounts of saturated fat. ??? Limit saturated fats. ? These are often found in animal products, such as meats, butter, and cream. ? These are also found in plant foods, such as palm oil, palm kernel oil, and coconut oil. ??? Avoid foods with partially hydrogenated oils in them. These have trans fats. Examples are stick margarine, some tub margarines, cookies, crackers, and other baked goods. What foods can I eat? Fruits All fresh, canned (in natural juice), or frozen fruits. Vegetables Fresh or frozen vegetables (raw, steamed, roasted, or grilled). Green salads. Grains Most grains. Choose whole wheat and whole grains most of the time. Rice and pasta, including brown rice and pastas made with whole wheat. Meats and other proteins Lean, well-trimmed beef, veal, pork, and baxter. Chicken and turkey without skin. All fish and shellfish. Wild duck, rabbit, pheasant, and venison. Egg whites or low-cholesterol egg substitutes. Dried beans, peas, lentils, and tofu. Seeds and most nuts. Dairy Low-fat or nonfat cheeses, including ricotta and mozzarella. Skim or 1% milk that is liquid, powdered, or evaporated. Buttermilk that is made with low-fat milk. Nonfat or low-fat yogurt. Fats and oils Non-hydrogenated (trans-free) margarines. Vegetable oils, including soybean, sesame, sunflower, olive, peanut, safflower, corn, canola, and cottonseed. Salad dressings or mayonnaise made with a vegetable oil. Beverages Mineral water. Coffee and tea. Diet carbonated beverages. Sweets and desserts Sherbet, gelatin, and fruit ice. Small amounts of dark chocolate. Limit all sweets and desserts. Seasonings and condiments All seasonings and condiments. The items listed above may not be a complete list of foods and drinks you can eat. Contact a dietitian for more options. What foods should I avoid? Fruits Canned fruit in heavy syrup. Fruit in cream or butter sauce. Fried fruit. Limit coconut. Vegetables Vegetables cooked in cheese, cream, or butter sauce. Fried vegetables. Grains Breads that are made with saturated or trans fats, oils, or whole milk. Croissants. Sweet rolls. Donuts. High-fat crackers, such as cheese crackers. Meats and other proteins Fatty meats, such as hot dogs, ribs, sausage, joe, rib-eye roast or steak. High-fat deli meats, such as salami and bologna. Caviar. Domestic duck and goose. Organ meats, such as liver. Dairy Cream, sour cream, cream cheese, and creamed cottage cheese. Whole-milk cheeses. Whole or 2% milk that is liquid, evaporated, or condensed. Whole buttermilk. Cream sauce or high-fat cheese sauce. Yogurt that is made from whole milk. Fats and oils Meat fat, or shortening. [place] butter, hydrogenated oils, palm oil, coconut oil, palm kernel oil. Solid fats and shortenings, including joe fat, salt pork, lard, and butter. Nondairy cream substitutes. Salad dressings with cheese or sour cream. Beverages Regular sodas and juice drinks with added sugar. Sweets and desserts Frosting. Pudding. Cookies. Cakes. Pies. Milk chocolate or white chocolate. Buttered syrups. Full-fat ice cream or ice cream drinks. The items listed above may not be a complete list of foods and drinks to avoid. Contact a dietitian for more information. Summary ??? Heart-healthy meal planning includes eating less unhealthy fats, eating more healthy fats, and making other changes in your diet. ??? Eat a balanced diet. This includes fruits and vegetables, low-fat or nonfat dairy, lean protein, nuts and legumes, whole grains, and heart-healthy oils and fats. This information is not intended to replace advice given to you by your health care provider. Make sure you discuss any questions you have with your health care provider. Document Revised: 04/01/2018 Document Reviewed: 03/05/2018 [employer] Patient Education ?? 2020 [employer]. nicotine (transdermal) ([place] teen) Habitrol, Nicoderm C-Q, Nicotine System Kit What is the most important information I should know about nicotine transdermal? Follow all directions on your medicine label and package. Tell each of your healthcare providers about all your medical conditions, allergies, and all medicines you use. What is nicotine? Nicotine is the primary ingredient in tobacco products. Nicotine transdermal (skin patch) is a medical product used to help you stop smoking and help reduce nicotine withdrawal symptoms as you quit smoking. Nicotine may also be used for purposes not listed in this medication guide. What should I discuss with my healthcare provider before using nicotine transdermal? Nicotine transdermal is not approved for use by anyone younger than 18 years old. Ask a doctor or pharmacist if this medicine is safe to use if you have ever had: ?? heart disease, irregular heartbeats; ?? a heart attack or stroke; ?? untreated or uncontrolled high blood pressure; ?? blood circulation problems; ?? pheochromocytoma (tumor of the adrenal gland); ?? diabetes; ?? a thyroid disorder; ?? a stomach ulcer; ?? liver disease; or ?? if your skin is sensitive to adhesive tape or bandages. Do not use nicotine transdermal without medical advice if you are . Use effective control, and tell your doctor if you become during treatment. Smoking cigarettes during can cause low weight, miscarriage, or stillbirth. Using a nicotine replacement product during or while breast-feeding may be safer than smoking. However, you should try to stop smoking without using a nicotine replacement product if you are or breast-feeding. Talk with your doctor about the best way for you to stop smoking. It may not be safe to breastfeed while using this medicine. Ask your doctor about any risk. The nicotine transdermal patch may burn your skin if you wear the patch during an MRI (magnetic resonance imaging). Remove the patch before undergoing such a test. How should I use nicotine transdermal? Nicotine transdermal is only part of a complete program of treatment that may also include counseling, group support, and behavior changes. Your success will depend on your participation in all aspects of your smoking cessation program. Use exactly as directed on the label, or as prescribed by your doctor. Start using the transdermal patch on the same day you stop (quit) smoking or using tobacco products. Your patch strength and number of weeks of treatment will depend on how many cigarettes you smoked daily before quitting. Read and carefully follow any Instructions for Use provided with your medicine. Ask your doctor or pharmacist if you do not understand these instructions. Wash your hands after applying or removing a nicotine skin patch. Apply the patch to clean, dry, and hairless skin on your chest or the outer part of your upper arm. Press the patch firmly into place for about 10 seconds to make sure it sticks. You may leave the patch on while bathing, showering, or swimming. Do not wear more than one nicotine patch at a time. Never cut a skin patch. Do not wear a nicotine patch at night if you have vivid dreams or trouble sleeping. If a patch falls off, try sticking it back into place. If it does not stick well, put on a new patch. You may wear a Habitrol patch for 24 hours. You may wear a Nicoderm CQ patch for 16 or 24 hours (wear for 24 hours if you crave cigarettes when you wake up in the morning). Remove the skin patch after 24 hours and replace it with a new one. Choose a different place on your body to wear the patch each time you put on a new one. Do not use the same skin area twice within 7 days. After removing a skin patch fold it in half, sticky side in, and put it back into its pouch. Do not use nicotine patches for longer than 8 weeks without the advice of your doctor. Store at room temperature away from moisture and heat. Keep each patch in its foil pouch until you are ready to use it. Save the pouch so you can use it to throw away any used patches. Keep both used and unused nicotine patches out of the reach of children or pets. The amount of nicotine in a used or unused skin patch can be fatal to a child who accidentally sucks or chews on the patch. Seek emergency medical attention if this happens. What happens if I miss a dose? Apply a skin patch as soon as you remember. Do not wear a patch for longer than 24 hours. Do not use extra patches to make up the missed dose. What happens if I overdose? Seek emergency medical attention or call the Poison Help line at . Overdose symptoms may include severe dizziness, nausea, vomiting, diarrhea, weakness, and fast heart rate. What should I avoid while using nicotine transdermal? Avoid using lotions, oils, or moisturizing soaps on the skin where you plan to wear a nicotine transdermal patch, or it may not stick well. What are the possible side effects of nicotine transdermal? Get emergency medical help if you have signs of an allergic reaction: hives; difficult breathing; swelling of your face, lips, tongue, or throat. Stop using nicotine transdermal and call your doctor at once if you have: ?? fast or pounding heartbeats, fluttering in your chest; ?? extreme weakness or dizziness; ?? severe nausea and vomiting; or ?? redness, swelling, or skin rash where a nicotine patch was worn (especially if these symptoms do not clear up within 4 days after the patch was removed). Common side effects may include: ?? dizziness; ?? sleep problems (insomnia), strange dreams; ?? dry mouth, upset stomach; ?? joint or muscle pain; ?? headache; or ?? mild skin irritation where the patch is worn. This is not a complete list of side effects and others may occur. Call your doctor for medical advice about side effects. You may report side effects to FDA at 9-395-VMK-8011. What other drugs will affect nicotine? Other drugs may affect nicotine transdermal, including prescription and uggf-ewt-acbwdcy medicines, vitamins, and herbal products. Tell your doctor about all your current medicines and any medicine you start or stop using. Where can I get more information? Your pharmacist can provide more information about nicotine. Remember, keep this and all other medicines out of the reach of children, never share your medicines with others, and use this medication only for the indication prescribed. Every effort has been made to ensure that the information provided by [employer]. [employer]') is accurate, up-to-date, and complete, but no guarantee is made to that effect. Drug information contained herein may be time sensitive. [employer] information has been compiled for use by healthcare practitioners and consumers in the [place] and therefore [employer] does not warrant that uses outside of the [place] are appropriate, unless specifically indicated otherwise. [employer] drug information does not endorse drugs, diagnose patients or recommend therapy. [employer] drug information is an informational resource designed to assist licensed healthcare practitioners in caring for their patients and/or to serve consumers viewing this service as a supplement to, and not a substitute for, the expertise, skill, knowledge and judgment of healthcare practitioners. The absence of a warning for a given drug or drug combination in no way should be construed to indicate that the drug or drug combination is safe, effective or appropriate for any given patient. [employer] does not assume any responsibility for any aspect of healthcare administered with the aid of information [employer] provides. The information contained herein is not intended to cover all possible uses, directions, precautions, warnings, drug interactions, allergic reactions, or adverse effects. If you have questions about the drugs you are taking, check with your doctor, nurse or pharmacist. Copyright 8693-5525 [employer]. Version: 3.01. Revision Date: 09/16/2018. cephalexin (sef a LESLIE in) Keflex What is the most important information I should know about cephalexin? You should not use this medicine if you are allergic to cephalexin or to similar antibiotics, such as Ceftin, Cefzil, Omnicef, and others. Tell your doctor if you are allergic to any drugs, especially penicillins or other antibiotics. What is cephalexin? Cephalexin is a cephalosporin (SEF a low spor in) antibiotic that is used to treat bacterial infections of the lungs, ear, skin, bones, bladder, and kidneys. Cephalexin is used to treat infections in adults and children who are at least 1 year old. Cephalexin may also be used for purposes not listed in this medication guide. What should I discuss with my healthcare provider before taking cephalexin? You should not use this medicine if you are allergic to cephalexin or any other cephalosporin antibiotic (cefdinir, cefadroxil, cefoxitin, cefprozil, ceftriaxone, cefuroxime, Omnicef, and others). Tell your doctor if you have ever had: ?? an allergy to any drug (especially penicillin); ?? liver or kidney disease; or ?? intestinal problems, such as colitis. The liquid form of cephalexin may contain sugar. This may affect you if you have diabetes. Tell your doctor if you are or breast-feeding. How should I take cephalexin? Follow all directions on your prescription label and read all medication guides or instruction sheets. Use the medicine exactly as directed. Do not use cephalexin to treat any condition that has not been checked by your doctor. Measure liquid medicine carefully. Use the dosing syringe provided, or use a medicine dose-measuring device (not a kitchen spoon). Use this medicine for the full prescribed length of time, even if your symptoms quickly improve. Skipping doses can increase your risk of infection that is resistant to medication. Cephalexin will not treat a viral infection such as the flu or a common cold. Do not share cephalexin with another person, even if they have the same symptoms you have. This medicine can affect the results of certain medical tests. Tell any doctor who treats you that you are using cephalexin. Store the tablets and capsules at room temperature away from moisture, heat, and light. Store the liquid medicine in the refrigerator. Throw away any unused liquid after 14 days. What happens if I miss a dose? Take the medicine as soon as you can, but skip the missed dose if it is almost time for your next dose. Do not take two doses at one time. What happens if I overdose? Seek emergency medical attention or call the Poison Help line at . Overdose symptoms may include nausea, vomiting, stomach pain, diarrhea, and blood in your urine. What should I avoid while taking cephalexin? Antibiotic medicines can cause diarrhea, which may be a sign of a new infection. If you have diarrhea that is watery or bloody, call your doctor before using anti-diarrhea medicine. What are the possible side effects of cephalexin? Get emergency medical help if you have signs of an allergic reaction (hives, difficult breathing, swelling in your face or throat) or a severe skin reaction (fever, sore throat, burning eyes, skin pain, red or purple skin rash with blistering and peeling). Call your doctor at once if you have: ?? severe stomach pain, diarrhea that is watery or bloody (even if it occurs months after your last dose); ?? unusual tiredness, feeling light-headed or short of breath; ?? easy bruising, unusual bleeding, purple or red spots under your skin; ?? a seizure; ?? pale skin, cold hands and feet; ?? yellowed skin, dark colored urine; ?? fever, weakness; or ?? pain in your side or lower back, painful urination. Common side effects may include: ?? diarrhea; ?? nausea, vomiting; ?? indigestion, stomach pain; or ?? vaginal itching or discharge. This is not a complete list of side effects and others may occur. Call your doctor for medical advice about side effects. You may report side effects to FDA at 0-611-KPQ-2843. What other drugs will affect cephalexin? Tell your doctor about all your other medicines, especially: ?? metformin; or ?? probenecid. This list is not complete. Other drugs may affect cephalexin, including prescription and yxgy-cos-rjnehmd medicines, vitamins, and herbal products. Not all possible drug interactions are listed here. Where can I get more information? Your pharmacist can provide more information about cephalexin. Remember, keep this and all other medicines out of the reach of children, never share your medicines with others, and use this medication only for the indication prescribed. Every effort has been made to ensure that the information provided by [employer]. [employer]') is accurate, up-to-date, and complete, but no guarantee is made to that effect. Drug information contained herein may be time sensitive. [employer] information has been compiled for use by healthcare practitioners and consumers in the [place] and therefore [employer] does not warrant that uses outside of the [place] are appropriate, unless specifically indicated otherwise. [employer]'s drug information does not endorse drugs, diagnose patients or recommend therapy. [facility] drug information is an informational resource designed to assist licensed healthcare practitioners in caring for their patients and/or to serve consumers viewing this service as a supplement to, and not a substitute for, the expertise, skill, knowledge and judgment of healthcare practitioners. The absence of a warning for a given drug or drug combination in no way should be construed to indicate that the drug or drug combination is safe, effective or appropriate for any given patient. [facility] does not assume any responsibility for any aspect of healthcare administered with the aid of information [facility] provides. The information contained herein is not intended to cover all possible uses, directions, precautions, warnings, drug interactions, allergic reactions, or adverse effects. If you have questions about the drugs you are taking, check with your doctor, nurse or pharmacist. Copyright 6879-6101 [facility]. Version: 10.. Revision Date: 02/13/2020. Emergency Awareness and Preventative Care STROKE is an EMERGENCY Every Minute Counts Act FAST and Check for these signs: FACE Does the face look uneven? ARM Does one arm drift down? SPEECH Does their speech sound strange? TIME Call at any sign of stroke Stroke Risk Factors Atrial Fibrillation (irregular heartbeat) Diabetes Family history of stroke Heart Disease Heavy alcohol use High Blood Pressure High Cholesterol Physical inactivity and obesity Smoking Cigarette Smoking The facts are clear, cigarette smoking will shorten your life. Smoking can cause many illnesses along the way. As a healthcare provider, we recommend that you stop smoking. Assistance with quitting is available by contacting 9-090-IKKS-NOW. This is a free resource providing counseling, support, and referral. Or you may contact your personal physician. National Suicide Prevention Lifeline: The National Suicide Prevention Lifeline is a national network of local crisis centers that provides free and confidential emotional support to people in suicidal crisis or emotional distress 24 hours a day, 7 days a week. Don't Wait! Stop a Heart Attack Before it Starts What is a heart attack? A heart attack is damage or to a part of the heart from severely decreased or lack of blood flow to the heart. Over time, arteries can become narrow from the buildup of fat and cholesterol, which is called plaque. The plaque can rupture causing a blood clot to form. When the blood clot forms, the artery can become severely narrowed or completely blocked, causing a heart attack. Heart attack is the leading cause of in the [place]. 85% of muscle damage occurs within the first 2 hours. Delay in the recognition of heart attack symptoms increases the chances of . Know the early symptoms of a heart attack: Nausea Feeling of fullness in chest Jaw Pain Pain that travels down one or both arms Fatigue/being tired Anxiety Back Pain Chest pressure, squeezing, or discomfort Shortness of breath Sweating, or a cold sweat Feeling of impending doom There are unusual signs of a heart attack, too! Women, the elderly, and diabetics may present with atypical symptoms: Fainting/dizziness Weakness Confusion Risk Factors for a Heart Attack Some heart disease risk factors, such as age and family history, cannot be changed. Others, like smoking and lack of exercise, can be changed. Smoking High Cholesterol High Blood Pressure Family History Obesity Age Gender (Males are at higher risk) Lack of Exercise Diabetes Diet Stress Excessive Alcohol Intake If you or someone you know is experiencing the signs and symptoms of a heart attack, DON???T DELAY. Call immediately and seek help. If someone collapses, perform CPR! Do not attempt to drive if you are having symptoms of heart attack. Hands-Only CPR Why Hands-Only CPR? Hands-Only CPR has been shown to be as effective as conventional CPR for cardiac arrests that occur outside of a hospital. Survival depends on immediately receiving CPR from someone nearby. How do you perform Hands-Only CPR? There are two easy steps: Call if you see a teen or adult collapse Push hard and fast in the center of the chest at a beat of 100 beats per minute. Save a life! 4 WAYS TO GET AHEAD OF SEPSIS SEPSIS is a MEDICAL EMERGENCY. Time matters! Infections put you and your family at risk for a life-threatening condition called sepsis. Sepsis is the body's extreme response to an infection. It is life-threatening, and without timely treatment, sepsis can rapidly lead to tissue damage, organ failure, and . Sepsis happens when an infection you already have-in your skin, lungs, urinary tract or somewhere else-triggers a chain reaction throughout your body. 1 PREVENT INFECTIONS Take good care of chronic conditions. Talk to your doctor about getting the recommended vaccines. 2 PRACTICE GOOD HYGIENE Wash your hands frequently. Keep cuts or open sores clean and covered until they are healed. 3 KNOW THE SYMPTOMS Confusion or disorientation Shortness of breath High heart rate Fever, shivering, or feeling very cold Extreme pain or discomfort Clammy or sweaty skin 4 ACT FAST Get medical care IMMEDIATELY if you suspect sepsis or if you have an infection that is not getting better or is getting worse. To learn more about sepsis and how to prevent infections, visit www.cdc.gov/sepsis. Test Results Laboratory or Other Results This Visit (last charted value for your 08/26/2021 visit) Hematology 08/26/2021 10:06 AM WBC: 9.0 K/uL -- Normal range between ( 4.5 and 10.5 ) RBC: 4.99 Million/uL -- Normal range between ( 3.93 and 5.22 ) Hct: 49.1 % -- Normal range between ( 34.1 and 44.9 ) Hgb: 15.8 g/dL -- Normal range between ( 11.2 and 15.7 ) Platelet Count: 156 K/uL -- Normal range between ( 163 and 369 ) MCH: 31.7 pg -- Normal range between ( 25.6 and 32.2 ) MCHC: 32.2 Gram/dL -- Normal range between ( 32.2 and 36.5 ) MCV: 98.4 fL -- Normal range between ( 79.0 and 94.8 ) Slide Review: No Eos %: 2.3 % -- Normal range between ( 0.0 and 7.0 ) [place] #: 0.62 K/uL -- Normal range between ( 0.16 and 1.00 ) Eos #: 0.21 x10(3)/uL -- Normal range between ( 0.00 and 0.80 ) [place] %: 6.9 % -- Normal range between ( 3.0 and 9.0 ) Baso %: 0.9 % -- Normal range between ( 0.0 and 1.5 ) Baso #: 0.08 x10(3)/uL -- Normal range between ( 0.00 and 0.20 ) RDW: 14.7 % -- Normal range between ( 11.7 and 14.9 ) Neut %: 62.0 % -- Normal range between ( 34.0 and 71.0 ) Neut #: 5.55 K/uL -- Normal range between ( 1.56 and 6.13 ) Lymph %: 27.8 % -- Normal range between ( 19.3 and 53.1 ) Lymph #: 2.49 x10(3)/uL -- Normal range between ( 1.00 and 3.90 ) MPV: 11.1 fL -- Normal range between ( 9.4 and 12.4 ) IG#: 0.01 x10(3)/uL -- Normal range between ( 0.00 and 0.05 ) IG%: 0.10 % -- Normal range between ( 0.00 and 0.60 ) General Chemistry 08/26/2021 10:06 AM Creatinine Level: 0.90 mg/dL -- Normal range between ( 0.55 and 1.02 ) Sodium Level: 139 mmol/L -- Normal range between ( 136 and 146 ) Potassium Level: 4.5 mmol/L -- Normal range between ( 3.5 and 5.1 ) Chloride Level: 106 mmol/L -- Normal range between ( 102 and 112 ) Carbon Dioxide Level: 32 mmol/L -- Normal range between ( 21 and 32 ) Anion Gap: 6 -- Normal range between ( 9 and 20 ) Bun/Creatinine: 16.7 -- Normal range between ( 8.0 and 20.0 ) Calcium Level: 10.6 mg/dL -- Normal range between ( 8.4 and 10.1 ) eGFR : >60 mL/min/1.73m2 eGFR NonAfrican: >60 mL/min/1.73m2 Glucose Level: 95 mg/dL -- Normal range between ( 74 and 106 ) Blood Urea Nitrogen: 15 mg/dL -- Normal range between ( 7 and 22 ) Diagnostic Radiology 08/26/2021 1:07 PM CR Chest 1 Vw Portable: CR Chest 1 Vw Portable Patient Name:ELNA MENDOZA I have received and understand this information and was given the opportunity to ask questions. Patient/Rac Specialist Name: Patient/Rac Specialist Signature: Relationship to Patient: Clinician/Hospital Rac Specialist Signature: Date: documented in this encounter Plan of Treatment Not on file documented as of this encounter Visit Diagnoses Not on filedocumented in this encounter Care Teams Fuel Cell Systems Engineer Relationship Specialty Start Date End Date Linh William, DO [address] [facility] [address] [place] [address] PCP - General Family Medicine 11/04/22 Lizzie Alves PA-C [address] [place] [address], [facility] [address] [place] [address] Hospitalist Cardiology 05/27/23 [place] [address] [place] [address] [address] [place] [address] Moving Picture Producer Electrophysiology 11/18/23 documented as of this encounter
--- OUTSIDE RECORDS SUMMARY | 2024-07-27 14:20 | XMS_ITS | Encounter Summary ---
Author Organization [facility] Address [address] [place] [address] Care Team Providers Care Coating Manager Name Role Phone MelaraFelicitas jorge Delilah DENISE Primary Care Provider [phone] Reason for Visit * Reason Onset Date Comments Genetic Counseling Intake 07/06/2024 Encounter Details Date Type Department Care Team ([facility] st Contact Info) Description 07/06/2024 Telephone PAV Genetic Counseling [address] [facility] [place] [address] Kia Humphries, GC [address] [facility] [address] [place] [address] Genetic Counseling Intake Social History Tobacco Use [...] Recorded Patient Health Questionnaire-2 Score 0 05/30/2024 [facility] - Occupational [...] the past 12 months has th e [employer], oil, or water [employer] threatened to shut off services in your home? No 06/02/2024 Comments No Sex and Gender Information Value Date Recorded Sex Assigned at Not on file Legal Sex Female 8:21 PM EDT Gender Identity Not on file Sexual Orientation Not on file documented as of this encounter Miscellaneous Notes * Telephone Encounter - Pedro Aguilar - 07/06/2024 2:58 PM EDT Genetic Counseling Incoming Freight Clerk called patient to obtain family history information [...] [facility] Endocrinology [address] [place] [address] Natalia Alves MD [address] [facility] [address] [place] [address] 12/08/2024 3:00 PM EDT Office Visit Medical Office Building [facility] [address] , [address] [place] [address] Amish Escobedo MD [address] [facility] [address] [place] [address] documented as of this encounter Visit Diagnoses Not on filedocumented in this encounter Additional Health Concerns Assessment Noted Time A fall risk assessment has been complete d for the patient 06/02/2024 1:58 PM EDT A Body Mass Index follow-up plan has been documented for the patient 06/02/2024 2:45 PM EDT documented as of this encounter Care Teams Coating Manager Relationship Specialty Start Date End Date Felicitas Melara APRN [address] [place] [address] PCP - General 01/29/24 documented as of this encounter
--- OUTSIDE RECORDS SUMMARY | 2024-07-27 14:20 | XMS_ITS | Encounter Summary ---
Author Organization [employer] [facility] Init iatives Address [address] [place] [address] Care Team Providers Care Centrifugal Drier Operator Name Role Phone Linh Doty DO Primary Care Provider [phone] Lizzie Alves PA-C Unavailable [phone] Kaushik Mariscal MD Unavailable Encounter Details Date Type Department Care Team (Late st Contact Info) Description 07/16/2021 Transcribed Document [facility] [place] Family Medicine [address] [place] [address] ProviderChad MD [address] [place] [address] Social History Tobacco Use Types Packs/Day Years Used Date Smoking Tobacco: Never Assessed Comments Unknown Sex and Gender Information Value Date Recorded Sex Assigned at Not on file Legal Sex Female 3:27 PM CDT Gender Identity Not on file Sexual Orientation Not on file documented as of this encounter Miscellaneous Notes * Cerner Conversion Note - Chad ProviderMD - 07/16/2021 2:52 PM CDT Patient: GAGAN MENDOZA Age: 55 years Sex: Female : 1965 Associated Diagnoses: None Author: Jaxon Hickey, Pharmacist-Resident 55 y/o F PMH CAD, ischemic cardiomyopathy, HF, 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 Draining hematoma- admitted for evaluation and abx Consult: Vancomycin Consulting MD: Melissa Indication: AICD hematoma Goal: vancomycin trough 10-15 mcg/ml ABX: zosyn 07/16-now Vancomycin 07/16-now Labs (Last four charted values) WBC 7.4 (JUL 16) HB H 17.9 (JUL 16) HCT H 56.1 (JUL 16) Plt L 140 (JUL 16) Na 138 (JUL 16) K 4.1 (JUL 16) Cl 105 (JUL 16) CO2 28 (JUL 16) BUN 10 (JUL 16) Cr 0.80 (JUL 16) Glu R 97 (JUL 16) Ca H 10.7 (JUL 16) Lactic 1.0 (JUL 16) PT 11.1 (JUL 16) INR 1.0 (JUL 16) AST 26 (JUL 16) ALT 25 (JUL 16) ALK P H 142 (JUL 16) T Bili 0.6 (JUL 16) PTN 7.6 (JUL 16) ALB 3.5 (JUL 16) Vitals Signs (last 24 hrs) Last Charted Minimum Maximum Temp 98.0 (JUL 16:) 98.0 (JUL 16:) 98.0 (JUL 16:) Periph HR 78 (JUL 16 12:06) 78 (JUL 16 12:06) 78 (JUL 16 12:) Resp Rate 20 (JUL 16 12:06) 20 (JUL 16 12:) 20 (JUL 16:) SBP H 152 (JUL 16 12:06) H 152 (JUL 16 12:06) H 152 (JUL 16 12:06) DBP 84 (JUL 16 12:06) 84 (JUL 16 12:06) 84 (JUL 16:) SpO2 L 90 (JUL 16:06) L 90 (JUL 16 12:06) L 90 (JUL 16 12:) Creatinine Clearance (Current Encounter/Past 24 Hours) Creatinine Level 0.80 mg/dL 07/16/2021 13:15 Bun/Creatinine 12.5 07/16/2021 13:15 Estimated Creatinine Clearance 73.51 mL/Min 07/16/2021 13:15 Cultures: 07/16: Blood NGTD Vancomycin levels: 07/18 trough @ 1300: A/P: 1. Vancomycin 1500mg IV x1 07/16 @ 1314 2. Continue vancomycin 1000mg IV q12h to begin 07/17 @ 0200 3. Vancomycin level 07/18 @ 1300 4. Zosyn dose appropriate for current renal function 5. Pharmacy to follow Thank you for this consult. Rose Mary Hickey PharmD [phone] documented in this encounter Plan of Treatment Not on file documented as of this encounter Visit Diagnoses Not on filedocumented in this encounter Care Teams Centrifugal Drier Operator Relationship Specialty Start Date End Date Linh Doty, 8 [facility] [address] [place] [address] PCP - General Family Medicine 11/04/22 Lizzie Alves PA-C [address] [place] [address], [facility] [address] [place] [address] Hospitalist Cardiology 05/27/23 Kaushik Mariscal MD [address] [facility] [address] [place] [address] Rivet Passer Electrophysiology 11/18/23 documented as of this encounter
--- OUTSIDE RECORDS SUMMARY | 2024-07-27 14:20 | XMS_ITS | Encounter Summary ---
Author Organization [employer] [facility] Init iatives Address [address] [place] [address] Care Team Providers Care Truck And Transport Mechanic Name Role Phone Linh Doty DO Primary Care Provider [phone] Lizzie Alves PA-C Unavailable [phone] Kaushik Mariscal MD Unavailable Encounter Details Date Type Department Care Team (Late st Contact Info) Description 07/16/2021 Transcribed Document [facility] [place] Family Medicine [address] [place] [address] ProviderChad MD [address] [place] [address] Social History Tobacco Use Types Packs/Day Years Used Date Smoking Tobacco: Never Assessed Comments Unknown Sex and Gender Information Value Date Recorded Sex Assigned at Not on file Legal Sex Female 3:27 PM CDT Gender Identity Not on file Sexual Orientation Not on file documented as of this encounter Miscellaneous Notes * Cerner Conversion Note - Chad Merchant MD - 07/16/2021 3:57 PM CDT Consult Phone Call Documentation Entered On: 07/16/2021 15:58 EDT Performed On: 07/16/2021 15:57 EDT by Pat Gallegos Emergency Room Clinical Esthetician Phone Call for Consults Consult Phone Call/Page Attempt : First call Consult Reason : infected pacemaker site Provider Service Notified Name : Infectious Disease Consult, Additional Information : Spoke to Cheryle at Inf Disease office and informed her of consult. Pat Gallegos Emergency Room Clinical Esthetician - 07/16/2021 15:57 EDT Electronically signed by Rekha, [facility] Conversion Aerospace Engineer Cerner at 05/27/2022 9:19 PM CDT documented in this encounter Plan of Treatment Not on file documented as of this encounter Visit Diagnoses Not on filedocumented in this encounter Care Teams Truck And Transport Mechanic Relationship Specialty Start Date End Date Linh Doty, DO [address] [facility] [address] [place] [address] PCP - General Family Medicine 11/04/22 Lizzie Alves PA-C [address] [place] [address], [facility] [address] [place] [address] Hospitalist Cardiology 05/27/23 Kaushik Mariscal MD [address] [facility] [address] [place] [address] Basic Acoustic Analyst Electrophysiology 11/18/23 documented as of this encounter
--- OUTSIDE RECORDS SUMMARY | 2024-07-27 14:20 | XMS_ITS | Encounter Summary ---
Author Organization [facility] Address [address] [place] [address] Care Team Providers Care Security Representative Name Role Phone Felicitas Melara Delilah DENISE Primary Care Provider [phone] Encounter Details Date Type Department Care Team [...] Description 11/30/2024 2:20 PM EDT Office Visit [facility] [address] [place] [address] Natalia Alves MD [address] [place] [address] 12/08/2024 3:00 PM EDT Office Visit Medical Office [facility] [address], [address] [place] [address] Amish Escobedo MD [address] [facility] [address] [place] [address] documented as of this encounter Visit Diagnoses Not on filedocumented in this encounter Additional Health Concerns Assessment Noted Time A Body Mass Index follow-up plan has been documented for the patient 05/30/2024 1:38 PM EDT documented as of this encounter Care Teams Security Representative Relationship Specialty Start Date End Date Felicitas Melara APRN [address] [place] [address] PCP - General 01/29/24 documented as of this encounter
--- OUTSIDE RECORDS SUMMARY | 2024-07-27 14:20 | XMS_ITS | Encounter Summary ---
Author Organization [employer] [facility] Init iatives Address [address] [place] [address] Care Team Providers Care Medical Payment Poster Name Role Phone Linh Doty DO Primary Care Provider [phone] Lizzie Alves PA-C Unavailable [phone] Kaushik Mariscal MD Unavailable Encounter Details Date Type Department Care Team (Late st Contact Info) Description 07/31/2021 Transcribed Document [facility] [place] [facility] [place] [address] ProviderChad MD [address] [place] [address] Social History Tobacco Use Types Packs/Day Years Used Date Smoking Tobacco: Never Assessed Comments Unknown Sex and Gender Information Value Date Recorded Sex Assigned at Not on file Legal Sex Female 3:27 PM CDT Gender Identity Not on file Sexual Orientation Not on file documented as of this encounter Miscellaneous Notes * Cerner Conversion Note - Chad Merchant MD - 07/31/2021 8:56 AM CDT UM Authorization Entered On: 07/31/2021 8:56 EDT Performed On: 07/31/2021 8:56 EDT by Bonita Katz, Volcanology Teacher Primary Insurance Authorization Authorization and Policy Numbers : Insurance 1 Health Plan: [employer] Policy Number: [id number] Authorization Number: Insurance Primary Name : [facility] Policy Number: [id number] Authorization Status-Primary : Admit approved Auth/Referral Contact Name-Primary : BRADY Reference Number-Primary : [id number] Authorization Number-Primary : [id number] Number of Days Authorized-Primary : 5 Day(s) Authorized Service Begin Date-Primary : 07/16/2021 EDT Authorized Service End Date-Primary : 07/21/2021 EDT Authorization Comments-Primary : Per website - Under review. Historical Authorization Comments-Primary : Comment 1: Discharge summary as well as continued stay clinical 07/23 - discharge faxed. (Bonita Katz, Volcanology Teacher 07/29/2021 15:50) Comment 2: 07/20-07/22 CLINICALS FAXED VIA [employer] (Yessi Alaniz, SARAH 07/22/2021 16:49) Comment 3: PER PORTAL IP APPROVED FOR 07/16 UP TO BUT NOT INCLUDING 07/22 (Khushi Jones, Rn-Utilization Review 07/19/2021 13:56) Comment 4: UNDER REVIEW PER WC PORTAL (Khushi Jones, Rn-Utilization Review 07/19/2021 09:22) Comment 5: CLINICAL FAXED VIA [employer] (Khushi Jones, Rn-Utilization Review 07/17/2021 15:22) Comment 6: REF# PER GUME. CLINICAL FAXED VIA [employer] (Khushi Jones, Rn-Utilization Review 07/17/2021 15:17) Bonita Katz, Volcanology Teacher - 07/31/2021 8:56 EDT Electronically signed by Rekha [facility] Conversion Biomedical Technician Cerner at 05/27/2022 8:58 PM CDT documented in this encounter Plan of Treatment Not on file documented as of this encounter Visit Diagnoses Not on filedocumented in this encounter Care Teams Medical Payment Poster Relationship Specialty Start Date End Date Linh Doty, DO [address] [place] [address] PCP - General Family Medicine 11/04/22 Lizzie Alves PA-C [address] [place] [address], [facility] [address] [place] [address] Hospitalist Cardiology 05/27/23 Kaushik Mariscal MD [address] [place] [address] [place] [address] Auto Rental Supervisor Electrophysiology 11/18/23 documented as of this encounter
--- OUTSIDE RECORDS SUMMARY | 2024-07-27 14:20 | XMS_ITS | Encounter Summary ---
Author Organization [employer] [facility] Init iatives Address [address] [place] [address] Care Team Providers Care Cuff Slitter Name Role Phone Linh Doty DO Primary Care Provider [phone] Lizzie Alves PA-C Unavailable [phone] Kaushik Mariscal MD Unavailable Encounter Details Date Type Department Care Team (Late st Contact Info) Description 07/16/2021 Transcribed Document [facility] [place] Family [place] [facility] [place] [address] ProviderChad MD [address] [place] [address] Social History Tobacco Use Types Packs/Day Years Used Date Smoking Tobacco: Never Assessed Comments Unknown Sex and Gender Information Value Date Recorded Sex Assigned at Not on file Legal Sex Female 3:27 PM CDT Gender Identity Not on file Sexual Orientation Not on file documented as of this encounter Miscellaneous Notes * Cerner Conversion Note - Chad Merchant MD - 07/16/2021 12:00 PM CDT [place] Suicide Severity Rating Scale (C-SSRS) Entered On: 07/16/2021 14:34 EDT Performed On: 07/16/2021 14:34 EDT by MAIKEL ESPARZA RN [place] Suicide Severity Rating Scale (C-SSRS) CSSRS Past Month Wish to be : No CSSRS Past Month Suicidal Thoughts : No CSSRS Lifetime Suicide Behavior : No Suicide Severity Rating Score : 0 Suicide Severity Rating : No Additional Care Required at this time MAIKEL ESPARZA SARAH - 07/16/2021 14:34 EDT Electronically signed by [facility], [facility] Conversion Carton And Can Supply Supervisor Cerner at 05/27/2022 9:15 PM CDT documented in this encounter Plan of Treatment Not on file documented as of this encounter Visit Diagnoses Not on filedocumented in this encounter Care Teams Cuff Slitter Relationship Specialty Start Date End Date Linh Doty, 8 [facility] [address] [place] [address] PCP - General Family Medicine 11/04/22 Lizzie Alves PA-C [address] [facility], [facility] [address] [place] [address] Hospitalist Cardiology 05/27/23 Kaushik Mariscal MD [address] [facility] [address] [place] [address] Night Warehouse Selector Electrophysiology 11/18/23 documented as of this encounter
--- OUTSIDE RECORDS SUMMARY | 2024-07-27 14:20 | XMS_ITS | Encounter Summary ---
Author Organization [employer] [facility] Init iatives Address [address] [place] [address] Care Team Providers Care Hoe Worker Name Role Phone Linh Doty DO Primary Care Provider [phone] Lizzie Alves PA-C Unavailable [phone] Kaushik Mariscal MD Unavailable Encounter Details Date Type Department Care Team (Late st Contact Info) Description 08/27/2021 Transcribed Document [facility] [place] [address] [place] [address] ProviderChad MD [address] [place] [address] Social History Tobacco Use Types Packs/Day Years Used Date Smoking Tobacco: Never Assessed Comments Unknown Sex and Gender Information Value Date Recorded Sex Assigned at Not on file Legal Sex Female 3:27 PM CDT Gender Identity Not on file Sexual Orientation Not on file documented as of this encounter Miscellaneous Notes * Cerner Conversion Note - Chad Merchant MD - 08/27/2021 9:35 AM CDT Meds to Bed Enrollment Entered On: 08/27/2021 9:35 EDT Performed On: 08/27/2021 9:35 EDT by Silvia León RPh Meds to Bed Enrollment Patient Enrollment Decision: : Yes/enroll in meds to bed program Silvia León RPh - 08/27/2021 9:35 EDT documented in this encounter Plan of Treatment Not on file documented as of this encounter Visit Diagnoses Not on filedocumented in this encounter Care Teams Hoe Worker Relationship Specialty Start Date End Date Linh Doty, 8 [facility] [address] [place] [address] PCP - General Family Medicine 11/04/22 Lizzie Alves PA-C [address] [place] [address], [facility] [address] [place] [address] Hospitalist Cardiology 05/27/23 Kaushik Mariscal MD [address] [facility] [address] [place] [address] Plaster Model And Mold Maker Electrophysiology 11/18/23 documented as of this encounter
--- OUTSIDE RECORDS SUMMARY | 2024-07-27 14:20 | XMS_ITS | Encounter Summary ---
Author Organization [employer] [facility] Init iatives Address [address] [place] [address] Care Team Providers Care Television Schedule Coordinator Name Role Phone Linh Doty DO Primary Care Provider [phone] Lizzie Alves PA-C Unavailable [phone] Kaushik Mariscal MD Unavailable Encounter Details Date Type Department Care Team (Late st Contact Info) Description 08/26/2021 Transcribed Document [facility] [place] [facility] [place] [address] ProviderChad MD [address] [place] [address] Social History Tobacco Use Types Packs/Day Years Used Date Smoking Tobacco: Never Assessed Comments Unknown Sex and Gender Information Value Date Recorded Sex Assigned at Not on file Legal Sex Female 3:27 PM CDT Gender Identity Not on file Sexual Orientation Not on file documented as of this encounter Miscellaneous Notes * Cerner Conversion Note - Chad Merchant MD - 08/26/2021 1:22 PM CDT Admission History, Adult Entered On: 08/26/2021 13:26 EDT Performed On: 08/26/2021 13:22 EDT by ABBIE MANDUJANO RN Advance Directive Patient has Advance Directive *Q : No, patient refuses Advance Directive information ABBIE MANDUJANO RN - 08/26/2021 13:22 EDT Anesthesia/Transfusion History Family History of Anesthesia Reaction : No prior transfusion(s) Transfusion History : Prior anesthesia without reaction Family History of Anesthesia Reaction : None Intubation History : Unknown ABBIE MANDUJANO RN - 08/26/2021 13:22 EDT Functional Assessment Living Situation : Home MULLINS Hx Falls Immediate/Within 3 Months : No Current Home Treatments : Oxygen therapy ABBIE MANDUJANO RN - 08/26/2021 13:22 EDT General Info Preferred Name : Lena Legal Guardian : No Support Person/Pt Rep Name : Tereso Coffey [phone] Want Family/Rep/Phys Notified of Admit : No Emergency Contact #1 : na Emergency Contact #1 Phone Number : na Emergency Contact #1 Relationship : na Emergency Contact #2 : na Emergency Contact #2 Phone Number : na Emergency Contact #2 Relationship : na Primary Language : Italian Preferred Communication Mode : Verbal Communication Barrier : None Critical Care Physician Needed : No ABBIE MANDUJANO RN - 08/26/2021 13:22 EDT Fall Risk Scales ABCs Fall Injury Risk Identification : None MULLINS Hx Falls Immediate/Within 3 Months : No Mullins Secondary Diagnosis : Yes MULLINS Use of Ambulatory Aid : None MULLINS IV Therapy or IV Access : No Mullins Gait/Transferring : Normal, bedrest, immobile Mullins Mental Status : Oriented to own ability Mullins Fall Risk Score : 15 MULLINS Fall Scale Risk Level : 0-24 Low Risk [place] Fall Interventions : Bed in low position, Call device within reach, Upper side-rails up, Wheels locked ABBIE MANDUJANO RN - 08/26/2021 13:22 EDT Health Histories Smoking Status : Smoker, current status unknown Smokeless Tobacco Status : Refused tobacco status screen Desires Tobacco Cessation Medication : No Reason for No Tobacco Cessation Medication : Refuses FDA approved medications ABBIE MANDUJANO RN - 08/26/2021 13:22 EDT Social History (As Of: 08/26/2021 13:26:38 EDT) Tobacco: 10 or more cigarettes (1/2 pack or more)/day in last 30 days Smoking Status. Never Smokeless Tobacco Status. None Smokeless Tobacco Use History. Years of Use: 40. (Last Updated: 07/01/2021 12:59:00 EDT by Rere Ramos RN) Alcohol: Alcohol Use History No. Use in Last 12 Months: No. (Last Updated: 07/01/2021 12:59:18 EDT by Rere Ramos RN) Substance Abuse: Drug Use Hx: No. Use in Last 12 Months: No. (Last Updated: 07/01/2021 12:59:21 EDT by Rere Ramos, RN) Height and Weight, Clinical Dosing Height Source : Stated Height Entry Format : [place] Height, Feet : 5 ft(Converted to: 152 cm, 60 Inch) Height, Inches : 6 Inch(Converted to: 0 ft 6 Inch, 15.24 cm) Clinical Height : 167.64 cm Weight Source : Standing scale Weight Entry Format : [place] Clinical Dosing Weight : 64.55 kg Weight, Pounds : 142 lb Body Surface Area (BSA) : 1.73 m2 Body Mass Index : 23 kg/m2 [place] Body Weight : 59 kg ABBIE MANDUJANO RN - 08/26/2021 13:22 EDT Infectious Disease History Does patient have symptoms of COVID-19? : No Tested for COVID19 in the past 14 days : No, Patient stated Does the Patient state known exposure to a COVID-19 positive case in the last 14 days? : No Patient Vaccinated for COVID-19 : Fully vaccinated ABBIE MANDUJANO RN - 08/26/2021 13:22 EDT Infectious Disease Risk Screening Grid Cough < 2 wks of unknown origin : NO Cough > 2 weeks : NO Blood in Sputum : NO Fever or self-reported Fever : NO Rash of unknown origin : NO Headache : NO Stiff neck : NO Night Sweats : NO Unexplained Weight Loss : NO Diarrhea (3 episode per day) : NO ABBIE MANDUJANO RN - 08/26/2021 13:22 EDT Physical contact outside [place] in the last 30 days : No Hospitalized in Foreign Country : No Infectious Disease History : Chicken pox/Shingles, Measles, Mumps INF Disease TB Screening Calc : 0 INF Disease Recent Travel Calc : 0 ABBIE MANDUJANO RN - 08/26/2021 13:22 EDT Influenza Vaccine Asmt, Adult Previous Vaccines from Immunization Schedule : No qualifying data available. Influenza Immunization, Current Season : Yes ABBIE MANDUJANO RN - 08/26/2021 13:22 EDT Pneumococcal Vaccine Previous Vaccines from Immunization Schedule : No qualifying data available. Pneumonia Immunization Received : No Pneumococcal Risk Assessment < Age 65 : None ABBIE MANDUJANO RN - 08/26/2021 13:22 EDT Order Details Patient Needs Meds Crushed/Liquid : No ABBIE MANDUJANO RN - 08/26/2021 13:22 EDT Nutrition History Adaptive Feeding Equipment : Regular Oral Medication Administration : By mouth Eating Poorly Due to Decreased Appetite : No Unplanned Weight Loss in Past 3-6 Months : No Malnutrition Screening Tool Total(mal) : 0 Malnutrition Screening Tool Risk Level : Patient not at risk ABBIE MANDUJANO RN - 08/26/2021 13:22 EDT [place] Suicide Severity Rating Scale (C-SSRS) CSSRS Past Month Wish to be : No CSSRS Past Month Suicidal Thoughts : No CSSRS Lifetime Suicide Behavior : No Suicide Severity Rating Score : 0 Suicide Severity Rating : No Additional Care Required at this time ABBIE MANDUJANO RN - 08/26/2021 13:22 EDT Psychosocial History Do You Have a History of the Following? : Patient denies history Currently in Unsafe Situation : No ABBIE MANDUJANO RN - 08/26/2021 13:22 EDT Sleep Apnea Risk Assmt Hx of Obstructive Sleep Apnea Diagnosis : No Snore Loudly : No Tired, Fatigued, or Sleepy During Day : No Observed Stopping Breathing During Sleep : No Have/Are Being Treated for Hypertension : Yes BMI Greater Than 35 kg/m2 : No Age over 50 Years Old : Yes Neck Circumference Greater Than 40 cm : No Gender Male : No STOP-BANG Sleep Apnea Risk Level Score : 2 ABBIE MANDUJANO RN - 08/26/2021 13:22 EDT Valuables and Belongings Valuables and Belongings : Clothing Clothing : Common streetwear Clothing Disposition : Bedside ABBIE MANDUJANO RN - 08/26/2021 13:22 EDT documented in this encounter Plan of Treatment Not on file documented as of this encounter Visit Diagnoses Not on filedocumented in this encounter Care Teams Television Schedule Coordinator Relationship Specialty Start Date End Date Linh Doty DO 8 [facility] [address] [place] [address] PCP - General Family Medicine 11/04/22 Lizzie Alves PA-C [address], [facility] [address] [place] [address] Hospitalist Cardiology 05/27/23 Kaushik Mariscal MD [address] [facility] [address] [place] [address] Fabrication Mig Welder Electrophysiology 11/18/23 documented as of this encounter
--- OUTSIDE RECORDS SUMMARY | 2024-07-27 14:20 | XMS_ITS | Encounter Summary ---
Author Organization [employer] [facility] Init iatives Address [address] [place] [address] Care Team Providers Care Shear Grinder Operator Helper Name Role Phone Linh Doty DO Primary Care Provider [phone] Lizzie Alves PA-C Unavailable [phone] Kaushik Mariscal MD Unavailable Encounter Details Date Type Department Care Team (Late st Contact Info) Description 08/26/2021 Transcribed Document [facility] [place] [address] [place] [address] ProviderChad MD [address] [place] [address] Social History Tobacco Use Types Packs/Day Years Used Date Smoking Tobacco: Never Assessed Comments Unknown Sex and Gender Information Value Date Recorded Sex Assigned at Not on file Legal Sex Female 3:27 PM CDT Gender Identity Not on file Sexual Orientation Not on file documented as of this encounter Miscellaneous Notes * Cerner Conversion Note - Chad ProviderMD - 08/26/2021 9:44 AM CDT Pre Procedure Adult Entered On: 08/26/2021 9:44 EDT Performed On: 08/26/2021 9:44 EDT by ABBIE MANDUJANO RN Height and Weight, Clinical Dosing Height Source : Stated Height Entry Format : [place] Height, Feet : 5 ft(Converted to: 152 cm, 60 Inch) Height, Inches : 6 Inch(Converted to: 0 ft 6 Inch, 15.24 cm) Clinical Height : 167.64 cm Weight Source : Standing scale Weight Entry Format : [place] [facility] Weight : 64.55 kg Weight, Pounds : 142 lb Body Surface Area (BSA) : 1.73 m2 Body Mass Index : 23 kg/m2 [place] Body Weight : 59 kg ABBIE MANDUJANO RN - 08/26/2021 9:44 EDT Health Histories Smoking Status : Smoker, current status unknown Smokeless Tobacco Status : Refused tobacco status screen Desires Tobacco Cessation Medication : No Reason for No Tobacco Cessation Medication : Refuses FDA approved medications ABBIE MANDUJANO RN - 08/26/2021 10:13 EDT Social History (As Of: 08/26/2021 10:16:01 EDT) Tobacco: 10 or more cigarettes (1/2 pack or more)/day in last 30 days Smoking Status. Never Smokeless Tobacco Status. None Smokeless Tobacco Use History. Years of Use: 40. (Last Updated: 07/01/2021 12:59:00 EDT by Rere Ramos, RN) Alcohol: Alcohol Use History No. Use in Last 12 Months: No. (Last Updated: 07/01/2021 12:59:18 EDT by Rere Ramos, RN) Substance Abuse: Drug Use Hx: No. Use in Last 12 Months: No. (Last Updated: 07/01/2021 12:59:21 EDT by Rere Ramos, RN) Infectious Disease History Does patient have symptoms of COVID-19? : No Tested for COVID19 in the past 14 days : No, Patient stated Does the Patient state known exposure to a COVID-19 positive case in the last 14 days? : No Patient Vaccinated for COVID-19 : Fully vaccinated ABBIE MANDUJANO RN - 08/26/2021 10:13 EDT Infectious Disease Risk Screening Grid Cough [...] : NO ABBIE MANDUJANO RN - 08/26/2021 10:13 EDT Physical contact outside [place] in the last 30 days : No Hospitalized in Foreign Country : No Infectious Disease History : Chicken pox/Shingles, Measles, Mumps INF Disease TB Screening Calc : 0 INF Disease Recent Travel Calc : 0 ABBIE MANDUJANO RN - 08/26/2021 10:13 EDT COVID19 PreProcedure Screening Is this an Emergent or Add on Procedure? : No Date PreProcedure COVID-19 test known? : No Has patient been isolated since the test : No Exposed to COVID19 symptoms since test? : No ABBIE MANDUJANO RN - 08/26/2021 10:13 EDT Anesthesia/Transfusion History Family History of Anesthesia Reaction : No prior transfusion(s) Transfusion History : Prior anesthesia without reaction Family History of Anesthesia Reaction : None Intubation History : Unknown ABBIE MANDUJANO RN - 08/26/2021 10:13 EDT Functional Assessment Living Situation : Home Current Home Treatments : Oxygen therapy ABBIE MANDUJANO RN - 08/26/2021 10:13 EDT [place] Suicide Severity Rating Scale (C-SSRS) CSSRS Past Month Wish to be : No CSSRS Past Month Suicidal Thoughts : No CSSRS Lifetime Suicide Behavior : No Suicide Severity Rating Score : 0 Suicide Severity Rating : No Additional Care Required at this time ABBIE MANDUJANO RN - 08/26/2021 10:13 EDT Psychosocial History Do You Have a History of the Following? : Patient denies history Currently in Unsafe Situation : No ABBIE MANDUJANO RN - 08/26/2021 10:13 EDT Advance Directive Patient has Advance Directive *Q : No, patient refuses Advance Directive information ABBIE MANDUJANO RN - 08/26/2021 10:13 EDT General Info Preferred Name : Lena Legal Guardian : No Support Person/Pt Rep Name : Tereso Coffey [phone] Want Family/Rep/Phys Notified of Admit : No Emergency Contact #1 : na Emergency Contact #1 Phone Number : na Emergency Contact #1 Relationship : na Emergency Contact #2 : na Emergency Contact #2 Phone Number : na Emergency Contact #2 Relationship : na Primary Language : Maldivian Preferred Communication Mode : Verbal Communication Barrier : None Pearl Peller Needed : No ABBIE MANDUJANO RN - 08/26/2021 10:13 EDT Sleep Apnea Risk Assmt Hx of [...] : 2 ABBIE MANDUJANO RN - 08/26/2021 10:13 EDT Raymon Scale Raymon Sensory Perception : No impairment Raymon Moisture : Rarely moist Raymon Activity : Walks frequently Raymon Mobility : No limitation Raymon Nutrition : Excellent Raymon Friction and Shear : No apparent problem Raymon Score : 23 ABBIE MANDUJANO RN - 08/26/2021 10:13 EDT Fall Risk Scales ABCs Fall Injury [...] Scale Risk Level : 0-24 Low Risk Rankin Fall Interventions : Bed in low position, Call device within reach, Wheels locked ABBIE MANDUJANO RN - 08/26/2021 10:13 EDT Valuables and Belongings Valuables and Belongings : Clothing Clothing : Common streetwear Clothing Disposition : Bedside ABBIE MANDUJANO RN - 08/26/2021 10:13 EDT Electronically signed by Rekha [facility] Conversion Psychologist Cerner at 05/27/2022 9:12 PM CDT documented in this encounter Plan of Treatment Not on file documented as of this encounter Visit Diagnoses Not on filedocumented in this encounter Care Teams Shear Grinder Operator Helper Relationship Specialty Start Date End Date Linh Doty, [address] [facility] [address] [place] [address] PCP - General Family Medicine 11/04/22 Lizzie Alves PA-C [address] [place] [address], [facility] [address] [place] [address] Hospitalist Cardiology 05/27/23 Kaushik Mariscal MD [address] [facility] [address] [place] [address] Harness Placer Electrophysiology 11/18/23 documented as of this encounter
--- OUTSIDE RECORDS SUMMARY | 2024-07-27 14:20 | XMS_ITS | Encounter Summary ---
Author Organization [facility] [facility] Init iatives Address [address] [place] [address] Care Team Providers Care Investigation Specialist Name Role Phone Linh Doty DO Primary Care Provider [phone] Lizzie Alves PA-C Unavailable [phone] Kaushik Mariscal MD Unavailable Encounter Details Date Type Department Care Team (Late st Contact Info) Description 07/16/2021 Transcribed Document [facility] [place] [address] [place] [address] ProviderChad MD [address] [place] [address] Social History Tobacco Use Types Packs/Day Years Used Date Smoking Tobacco: Never Assessed Comments Unknown Sex and Gender Information Value Date Recorded Sex Assigned at Not on file Legal Sex Female 3:27 PM CDT Gender Identity Not on file Sexual Orientation Not on file documented as of this encounter Miscellaneous Notes * Cerner Conversion Note - Chad ProviderMD - 07/16/2021 2:19 PM CDT Evaluation, Physical Therapy Entered On: 07/18/2021 16:07 EDT Performed On: 07/18/2021 12:00 EDT by WILL PRETTY PT General Information, PT Visit Type, PT : Initial evaluation Patient Orders : Order Date Order Ordering 07/16/2021 14:19 PT Evaluation and Treatment Ordered By: REYNALDO CURIEL MD-INT Active Diagnoses : 07/16/2021 12:00 Cardiac device problem 07/16/2021 12:00 General medical 07/16/2021 12:00 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, implants and grafts, initial encounter 07/16/2021 12:00 Presence of cardiac pacemaker Therapy Diagnosis, PT : decreased functional mobility and activity tolerance Onset of Problem, PT : 07/16/2021 EDT Admission Date : 07/16/2021 14:13 Personal Devices : Personal Devices No Devices Recorded Assistive Devices : Assistive Devices No Devices Recorded General Information Comment, PT : Dx: pace maker bleeding WILL PRETTY, PT - 07/18/2021 15:53 EDT General Status Patient Received Status : Supine in bed Treatment Start Time : 07/18/2021 11:50 EDT Patient Left Status : Sitting edge of bed, Communication board completed, All needs met and within reach RN/PCT Informed Comment : carlos eduardo Treatment End Time : 07/18/2021 12:00 EDT Treatment Time : 10 Minute(s) WILL PRETTY PT - 07/18/2021 15:53 EDT History and Environment Living Situation, Therapy : Home Patient Lives With : Significant other(s) Persons Providing Information : Patient Home Equipment Therapy, PT : None Home Setup : One story Bedroom Location : Main level Bathroom #1 Location : Main level Stairs : Yes Stair Location(s) : Outside Outside Stairs, Number of Steps : 3 Railing Outside : Yes Outside Railing Position : Right, going up WILL PRETTY, PT - 07/18/2021 15:53 EDT Prior Level of Function PT GRID Prior LOF Ambulation, Household : Independent Prior LOF Ambulation, Community : Independent Prior LOF Bed Mobility : Independent Prior LOF Toileting : Independent Prior LOF Transfer : Independent WILL PRETTY PT - 07/18/2021 15:53 EDT Functional Mobility Mobility Grid Bed Roll Left : Rehab Complete independence Bed Roll Right : Rehab Complete independence Bed Scooting : Rehab Complete independence Supine to Sit : Rehab Complete independence Sit to Stand : Rehab Complete independence Sit to Supine : Rehab Complete independence WILL PRETTY PT - 07/18/2021 15:53 EDT Gait Training/Assessment, PT Gait Assistance Level : Independent, complete Walking Distance : 375' Ambulatory Devices : None, Gait belt WILL PRETTY, PT - 07/18/2021 15:53 EDT Cognition Assessment, PT Orientation : Oriented x 4 WILL PRETTY PT - 07/18/2021 15:53 EDT Edu Topics Physical Therapy Education Grid Role of Physical Therapy : Verbalizes understanding WILL PRETTY, PT - 07/18/2021 15:53 EDT Indication Assesessment, PT Physical Therapy Indicated : No Physical Therapy Not Indicated : Independent, complete, No skilled services ind., Prior level of function WILL PRETTY, PT - 07/18/2021 15:53 EDT Plan of Care, PT PT Tx Plan/Goals Established w Patient : Yes WILL PRETTY PT - 07/18/2021 15:53 EDT Treatment Note Subjective Comment : Patient agreed to PTx. RN ok'd PTx. Assessment : Patient demonstrates independence and safety with functional mobility, transfers and gait. Patient able to ambulate without LOB demonstrating sufficient dynamic balance. Patient also exhibits adequate activity tolerance and normalized gait speed. Patient does not indicate need for skilled PT services at this time. PT will sign off. Plan for Treatment : eval only WILL PRETTY, PT - 07/18/2021 15:53 EDT Pain Assessment Pain Scaled Used : 0-10 Pain scale Pain Score Pre-Intervention : 0 WILL PRETTY PT - 07/18/2021 15:53 EDT Image 1 - Images currently included in the form version of this document have not been included in the text rendition version of the form. Anticipated Discharge Needs, OT/PT Anticipated Discharge to : Home, independently Recommend Continued Therapy at Discharge : No WILL PRETTY, PT - 07/18/2021 15:53 EDT [place] PT Charges PT Eval Moderate Complexity : 1 WILL PRETTY PT - 07/18/2021 15:53 EDT documented in this encounter Plan of Treatment Not on file documented as of this encounter Visit Diagnoses Not on filedocumented in this encounter Care Teams Investigation Specialist Relationship Specialty Start Date End Date Linh Doty DO [address] [place] [address] PCP - General Family Medicine 11/04/22 Lizzie Alves PA-C [address] [facility] [address] [place] [address] Hospitalist Cardiology 05/27/23 Kaushik Mariscal MD [address] [facility] [address] [place] [address] Clothing Presser Electrophysiology 11/18/23 documented as of this encounter
--- OUTSIDE RECORDS SUMMARY | 2024-07-27 14:20 | XMS_ITS | Encounter Summary ---
Author Organization Healthcare Address [address] [place] [address] Care Team Providers Care Stain Remover Name Role Phone MelaraFelicitas Delilah DENISE Primary Care Provider [phone] Encounter Details Date Type Department Care Team [...] Recorded Patient Health Questionnaire-2 Score 0 05/30/2024 [facility] [...] Upcoming Encounters Date Type Department Care Team ([facility] Contact Info) Description 11/30/2024 2:20 PM EDT Office Visit [facility] [address] [place] [address] Natalia Alves MD [address] [place] [address] 12/08/2024 3:00 PM EDT Office Visit Medical Office Building Surgical [facility] [address] [facility] [place] [address] Amish Escobedo MD [address] [facility] [address] [place] [address] documented as of this encounter Visit Diagnoses Not on filedocumented in this encounter Additional Health Concerns Assessment Noted Time A fall risk assessment has been complete d for the patient 06/02/2024 1:58 PM EDT A Body Mass Index follow-up plan has been documented for the patient 06/02/2024 2:45 PM EDT documented as of this encounter Care Teams Stain Remover Relationship Specialty Start Date End Date Felicitas Melara APRN [address] [place] [address] PCP - General 01/29/24 documented as of this encounter
--- OUTSIDE RECORDS SUMMARY | 2024-07-27 14:20 | XMS_ITS | Data Portability ---
Author Organization [place] - [facility] - [place] & AMY Faria ADMIN Address [address] [place] [address] Care Team Providers Care Top Frame Fitter Name Role Phone PHONG WILLIAM Referring Provider Assessment Encounter Date Assessment Date Assessment LastModified [...] __ __ __ __ __ _ GISELLE: [id number] I have reviewed patient's GISELLE report prior [...] the risk of withdrawal and the differences. [email or web address] Not available 08/26/2022 09:40:08 09/29/2022 09/29/2022 Mrs. Chandelr was referred by Dr. William for osteoarthritis [...] __ __ __ __ __ _ GISELLE: [id number] I have reviewed patient's GISELLE report prior [...] the risk of withdrawal and the differences. [email or web address] Not available 09/29/2022 16:19:40 11/24/2022 11/24/2022 Mrs. [...] reports she was able to go to [facility] with her this past weekend which she has been unable to do for a long time. She is complaining of thoracic and lumbar pain with BLE radicular pain to the calf. No trauma or injury. She has had this pain halfway. It is worse with standing and walking, [...] __ __ __ __ __ _ GISELLE: [id number] I have reviewed patient's GISELLE report prior [...] Telehealth visit is being conducted from [address] [place] [address]. This was a real-time clinical encounter over [[email or web address] ]. Consent was obtained to engage in [...] or injury. She has had this pain halfway. It is worse with standing and walking, [...] __ __ __ __ __ _ GISELLE: [id number] I have reviewed patient's GISELLE report prior [...] Plavix managed by cardiology (Dr. Mariscal at [place]). The patient has a history of COPD [...] informed the patient that the goal of [facility] will be to incorporate a multi-modal approach [...] __ __ __ __ __ _ GISELLE: [id number] I have reviewed patient's GISELLE report prior [...] the risk of withdrawal and the differences. Not available 03/30/2023 15:36:52 Plan of Treatment Reminders Order Date Submit Date Provider Last Modified By Organization Details Last Modified Time Details Appointments None recorded. Lab drug screen, urine 2023 024 [email or web address] [facility], [place], [address], 4 12:12:09 Referral None recorded. Procedures injection , single, diagnosti c or therapeut ic substance , lumbar, sacral (PROC) - 82880, LEI L5-S1 2023 024 [email or web address] Justin Andres, [address] [place], [address], 4 09:24:03 epidural steroid injection , cervical interlami yg (PROC) - 23779, C7-T1 2022 023 [email or web address] Not available 3 08:27:26 epidural steroid injection , cervical interlami yg (PROC) - 71956, C7-T1 2022 023 [email or web address] Not available 3 13:39:39 Surgeries None recorded. Imaging XR, lumbar spine, 2 view 2022 023 [facility] (Scheduling), [address] [place], [address], 3 16:10:33 XR, thoracic spine, 2 view 2022 023 [email or web address] [facility] ([facility] [address] [place], [address], 3 11:03:12 Medication Orders gabapenti n 600 mg tablet 2023 024 [facility], [address] [place] [address] [address] [place], [id number], 4 16:34:26 hydrocodo ne 5 mg-acetam inophen 325 mg tablet 2023 024 [email or web address], [address] [place] [address] [address] [place], [id number], 4 15:59:57 hydrocodo ne 5 mg-acetam inophen 325 mg tablet 2022 023 [facility], [address] [place] [address] [address] [place], [id number], 3 16:06:54 hydrocodo ne 5 mg-acetam inophen 325 mg tablet 2022 023 [facility], [address] [place] [address] [address], BRAD[place], [id number], 4 16:06:54 gabapenti n 600 mg tablet 2022 023 [facility], [address] [place] [address] [address], BRADEN [place], [id number], 4 16:36:42 hydrocodo ne 5 mg-acetam inophen 325 mg tablet 2022 023 [facility], [address] [place] [address] [address] [place], [id number], 3 13:07:24 hydrocodo ne 5 mg-acetam inophen 325 mg tablet 2022 023 [facility], [address] [place] [address] [address], BRADEN [place]aj[place], [id number], 3 16:15:43 hydrocodo ne 5 mg-acetam inophen 325 mg tablet 2022 023 [facility], [address] [place] [address] [address], BRADEN [place], [id number], 3 16:35:06 hydrocodo ne 5 mg-acetam inophen 325 mg tablet 2022 023 [facility], [address] [place] [address] [address], [id number], 3 14:33:16 gabapenti n 600 mg tablet 2022 023 [facility], [address] [facility] [address] [place] [place], [id number], 3 16:58:13 Patient TargetsNo targets recorded. Patient InstructionsNo instructions recorded. Reason for Referral None Reported. Results Created Date Observation Date Name Description Value Unit Range Abnormal Flag Note LastModifiedBy Organization Detail LastModifiedTime 03/30/19 24 03/30/2023 drug scree n, urine Amphetamines negati ve Not Available [facility] [address] [place] [address] Dr Franks, [place], [address], 03/30/2023 15:15:37 03/30/19 24 03/30/2023 drug scree n, urine Barbiturates negati ve Not Available [facility] [address] [place] [address] [place], [address], 03/30/2023 15:15:37 03/30/19 24 03/30/2023 drug scree n, urine Buprenorphin e negati ve Not Available [facility] [address] [place] [address] [place], [address], 03/30/2023 15:15:37 03/30/19 24 03/30/2023 drug scree n, urine Benzodiazepi dion negati ve Not Available [facility] [address] [place] [address] [place], [address], 03/30/2023 15:15:37 03/30/19 24 03/30/2023 drug scree n, urine Cocaine negati ve Not Available [facility] [address] [place] [address] [place], [address], 03/30/2023 15:15:37 03/30/19 24 03/30/2023 drug scree n, urine Methamphetam ine negati ve Not Available [facility] [place] [facility] [address] [place] [address] Dr Franks, [place], [address], 03/30/2023 15:15:37 03/30/19 24 03/30/2023 drug scree n, urine Ecstasy negati ve Not Available [facility] [place] [facility] [address] [place] [address] Dr Franks, [place], [address], 03/30/2023 15:15:37 03/30/19 24 03/30/2023 drug scree n, urine Methadone negati ve Not Available [facility] [place] [facility] [address] [place] [address] Dr Franks, [place], [address], 03/30/2023 15:15:37 03/30/19 24 03/30/2023 drug scree n, urine Morphine/ Opiates negati ve Not Available [facility] [place] [facility] [address] [place] [address] Dr Franks, [place], [address], 03/30/2023 15:15:37 03/30/19 24 03/30/2023 drug scree n, urine Phencyclidin e negati ve Not Available [facility] [place] [facility] [address] [place] [address] Dr Franks, [place], [address], 03/30/2023 15:15:37 03/30/19 24 03/30/2023 drug scree n, urine Oxycodone negati ve Not Available [facility] [place] [facility] [address] [place] [address] [place], [address], 03/30/2023 15:15:37 03/30/19 24 03/30/2023 drug scree n, urine Marijuana negati ve Not Available [facility] [place] [facility] [address] [place] [address] [place], [address], 03/30/2023 15:15:37 Result Notes None recorded. Problems Name Problem SNOMED Code Status Onset Date Resolution Date Notes Provider Name and Address Organization Details Recorded Time Bilateral osteoarthr itis of knees 8235263705529 07 Active 2021 Not Available [facility] 4 19:02:55 Pain of bilateral knee regions 4434157171016 02 Active 2021 Not Available [facility] 4 19:02:55 Low back pain 685572520 Active 2021 Not Available [facility] 4 19:02:55 Chronic obstructiv e pulmonary disease 27523221 Active 2021 Not Available [facility] 4 19:02:55 Nicotine dependence 91454195 Active 2021 Not Available [facility] 4 19:02:55 Cardiac pacemaker procedure Active 2021 Not Available [facility] 4 19:02:55 Radicular pain 50810906 Active 2021 Not Available [facility] 4 19:02:55 Neck pain 81879868 Active 2022 Not Available [facility] 4 19:02:55 Pain in right arm 537151658 Active 2022 Not Available [facility] 4 19:02:55 Neuropathi c pain 782805267 Active 2022 Not Available [facility] 4 19:02:55 Spinal stenosis in cervical region 29334107 Active 2022 Not Available [facility] 4 19:02:55 Stenosis of spinal canal due to interverte bral disc 074375988 Active 2023 Vicenta Raza null, [place] - [facility] [place] & [place] 4 15:34:56 Opioid dependence 95061844 Active 2023 Vicenta Raza null, [place] - [facility] [place] & [place] 4 15:35:32 Fall Active 2023 Vicenta Raza null, [place] - [facility] [place] & [place] 4 15:39:33 Problem Notes None [...] Updated DateTime 4 167.64 cm 25.2 kg/m2 11470.4 1 g 98 [degF] 92 % 92 % 100 /min 167 mm[Hg] 106 mm[Hg] Kelsi naylor [place] - [facility] & [place] 4 14:20:33 Date Recorded Body height Body mass index (BMI) Body weight Body temperature Oxygen saturation Oxygen saturation in Arterial blood by Pulse oximetry Heart rate Respiratory rate Systolic blood pressure Diastolic blood pressure Provider Name and Address Organization Details Last Updated DateTime 3 167.64 cm 22.9 kg/m2 18116.1 2 g 97.7 [degF] 84 % 84 % 92 /min 24 /min 129 mm[Hg] 83 mm[Hg] Michaela Cueva [facility] & [place] 3 16:13:48 Date Recorded Body height Body mass index (BMI) Body weight Body temperature Oxygen saturation Oxygen saturation in Arterial blood by Pulse oximetry Heart rate Systolic blood pressure Diastolic blood pressure Provider Name and Address Organization Details Last Updated DateTime 3 167.64 cm 22.9 kg/m2 46311.4 g 97.4 [degF] 90 % 90 % 98 /min 146 mm[Hg] 94 mm[Hg] Martha FELICIANO [facility] & [place] 3 15:22:01 Date Recorded Body height Oxygen saturation Oxygen saturation in Arterial blood by Pulse oximetry Body temperature Body mass index (BMI) Body weight Provider Name and Address Organization Details Last Updated DateTime 3 167.64 cm 85 % 85 % 98.2 [degF] 22.8 kg/m2 70807.5 2 g Martha FELICIANO [facility] & [place] 3 16:01:38 Date Recorded Body height Provider Name an d Address Organization Details Last Updated DateTime 01/12/2023 167.64 cm Kelsi FELICIANO [facility] & [place] 01/12/2023 10:51:45 Social History None recorded. Functional Status None recorded. Mental Status None recorded. Family History Nothing Reported. Medical History No medical history recorded. Gynecological HistoryNo gynecological history recorded. Obstetrics History GPAL:G 0 P 0 0 0 0 Past Encounters Encounter ID Performer Location Encounter Start Date Encounter Closed Date Diagnosis/Indication Diagnosis SNOMED-CT Code Diagnosis ICD10 Code Diagnosis Note [id number] Justin Andres MD [facility] [address] [address] 11/19/2021 11:47:34 11/19/2021 12:32:16 Bilateral osteoarthritis of knees 0482441374 18681 M17.0 Pain of bi lateral knee regions 0756988118 18180 M25.561 M25.562 Low back pain 141275055 M54.50 Radicular pain 17289238 M54.10 [id number] Justin Andres MD [facility] [address] [place] [address] [place] [address] 12/16/2021 14:22:03 12/16/2021 16:13:15 Bilateral osteoarthritis of knees 5877266847 06413 M17.0 Pain of bi lateral knee regions 6432686108 30162 M25.561 M25.562 Low back pain 035923278 M54.50 Radicular pain 72407211 M54.10 [id number] Justin Andres MD [facility] [address] [place] [address] [place] [address] 01/27/2022 14:39:34 01/27/2022 14:41:02 Bilateral osteoarthritis of knees 4777590715 38172 M17.0 Pain of bi lateral knee regions 7079604923 35051 M25.561 M25.562 Low back pain 826968818 M54.50 Radicular pain 93272760 M54.10 [id number] Justin Andres MD [facility] [address] [place] [address] [place] [address] 02/25/2022 08:32:14 02/25/2022 09:58:50 Bilateral osteoarthritis of knees 5817077443 89386 M17.0 Pain of bi lateral knee regions 5939490370 27960 M25.561 M25.562 Low back pain 072543371 M54.50 Radicular pain 73316358 M54.10 [id number] Justin Andres MD [facility] [address] [place] [address] [place] [address] 03/17/2022 12:17:51 03/17/2022 12:22:07 Bilateral osteoarthritis of knees 9648597160 33969 M17.0 Pain of bi lateral knee regions 3877939094 05185 M25.561 M25.562 Low back pain 432309234 M54.50 Radicular pain 32085621 M54.10 [id number] Justin Andres MD [facility] [address] [place] [address] [place] [address] 05/12/2022 11:37:32 05/12/2022 12:17:04 Bilateral osteoarthritis of knees 7230692425 49431 M17.0 Pain of bi lateral knee regions 8518336887 76555 M25.561 M25.562 Low back pain 985698934 M54.50 Radicular pain 33004163 M54.10 Neck pain 72196377 M54.2 Pain in right arm 676864 004 M79.601 Neuropathic pain 9189405 09 M79.2 [id number] Justin Andres MD [facility] [address] [place] [address] [place] [address] 06/09/2022 09:26:46 06/09/2022 11:32:40 Bilateral osteoarthritis of knees 1315383229 54889 M17.0 Pain of bi lateral knee regions 6999743154 53501 M25.561 M25.562 Low back pain 837245164 M54.50 Radicular pain 25400121 M54.10 Neck pain 37887431 M54.2 Pain in right arm 298372 004 M79.601 Neuropathic pain 3020801 09 M79.2 [id number] Justin Andres MD [facility] [address] [place] [address] [place] [address] 07/14/2022 15:03:41 07/14/2022 16:33:25 Bilateral osteoarthritis of knees 7562378989 34746 M17.0 Pain of bi lateral knee regions 4591711306 42181 M25.561 M25.562 Low back pain 032480007 M54.50 Radicular pain 19058435 M54.10 Neck pain 53829883 M54.2 Pain in right arm 402071 004 M79.601 Neuropathic pain 3484443 09 M79.2 [id number] Justin Andres MD [facility] [address] [place] [address] [place] [address] 08/25/2022 15:06:33 08/27/2022 09:08:30 Bilateral osteoarthritis of knees 6676398569 66848 M17.0 Pain of bi lateral knee regions 3755792100 28762 M25.561 M25.562 Low back pain 064076552 M54.50 Radicular pain 60889334 M54.10 Neck pain 54557558 M54.2 Pain in right arm 754834 004 M79.601 Neuropathic pain 6313581 09 M79.2 Spinal davi nosis in cervical region 58999149 M99.51 [id number] Justin Andres MD [facility] [address] [place] [address] 09/29/2022 14:45:52 09/29/2022 15:26:15 Bilateral osteoarthritis of knees 3698720956 34630 M17.0 Pain of bi lateral knee regions 0624610224 46198 M25.561 M25.562 Low back pain 184651922 M54.50 Radicular pain 44703939 M54.10 Neck pain 42808629 M54.2 Pain in right arm 181250 004 M79.601 Neuropathic pain 2702249 09 M79.2 Spinal davi nosis in cervical region 13573990 M99.51 [id number] Justin Andres MD [facility] [address] [place] [address] [place] [address] 11/24/2022 15:13:54 11/24/2022 16:10:34 Bilateral osteoarthritis of knees 1185293184 40998 M17.0 Pain of bi lateral knee regions 8716960073 82483 M25.561 M25.562 Low back pain 426462680 M54.50 Radicular pain 08193002 M54.10 Neck pain 95326091 M54.2 Pain in right arm 326787 004 M79.601 Neuropathic pain 6376998 09 M79.2 Spinal davi nosis in cervical region 15050745 M99.51 Stenosis o f spinal canal due to intervertebral disc 319062628 M99.59 [id number] Justin Andres MD [facility] [address] [place] [address] 01/12/2023 10:48:01 01/12/2023 12:59:31 Bilateral osteoarthritis of knees 4748170244 42930 M17.0 Pain of bi lateral knee regions 4758362194 54337 M25.561 M25.562 Low back pain 687719403 M54.50 Radicular pain 84872675 M54.10 Neck pain 05172303 M54.2 Pain in right arm 501092 004 M79.601 Neuropathic pain 0340093 09 M79.2 Spinal davi nosis in cervical region 11429306 M99.51 Stenosis o f spinal canal due to intervertebral disc 933886684 M99.59 [id number] Justin Andres MD [facility] [address] [place] [address] [place] [address] 03/30/2023 13:08:28 03/30/2023 14:22:53 Bilateral osteoarthritis of knees 8351276671 47780 M17.0 Pain of bi lateral knee regions 4431604984 38752 M25.561 M25.562 Low back pain 052776136 M54.50 Radicular pain 36474018 M54.10 Neck pain 22936795 M54.2 Pain in right arm 909551 004 M79.601 Neuropathic pain 8797717 09 M79.2 Spinal davi nosis in cervical region 70981025 M99.51 Stenosis o f spinal canal due to intervertebral disc 192190860 M99.53 Opioid dependence 960344 00 F11.20 Fall W19.XXXA Health Concerns Section Related Observation LastModified by Organization Detai ls LastModified Time None Recorded Concern Status LastModified by Organization Details LastModified Time None Recorded Advance Directives Directive None Recorded Payers Insurance Date Sequence Insurance Name Policy Number Policy Harding Covered Member ID Harding Member ID Guarantor Name 08/29/2023 1 [facility] (MEDICARE REPLACEMENT/ ADVANTAGE - HMO) Lena Chandler [id number] Lena Chandler Notes Date Note Type Note [...] Lumbar InjectionsImaging/Studie s: None Justin Andres MD [address] [facility], [place], [address], [place] - [facility] [place] [facility] [place] 08/27/2022 14:45:45 3 text/html Mrs. Chandler was [...] Lumbar InjectionsImaging/Studie s: None Justin Andres MD [address] [facility], [place], [address], [place] [facility] [place] [facility] [place] 10/01/2022 08:42:38 3 text/html Mrs. Chandler was [...] reports she was able to go to [facility] with her this past weekend which she has been unable to do for a long time. She is complaining of thoracic and lumbar pain with BLE radicular pain to the calf. No trauma or injury. She has had this pain halfway. It is worse with standing and walking, [...] Lumbar InjectionsImaging/Studie s: None Justin Andres MD [address] [facility], [place], [address], [facility] - [facility] & [place] 11/26/2022 11:29:36 3 text/html Mrs. Chandler was [...] reports she was able to go to [facility] with her this past weekend which she has been unable to do for a long time. She is complaining of thoracic and lumbar pain with BLE radicular pain to the calf. No trauma or injury. 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 It is worse with standing and walking, [...] InjectionsImaging/Studie s: None Justin Andres MD [address] [facility], [place], [address], [facility] & [place] 01/13/2023 21:55:52 4 text/html Mrs. Chandler was [...] Lumbar InjectionsImaging/Studie s: None Justin Andres MD [address] [facility], [place], [address], [facility] - [place] & [place] 04/01/2023 14:43:21 OBGyn Episode No OBEpisode recorded.
--- OUTSIDE RECORDS SUMMARY | 2024-07-27 14:20 | XMS_ITS | Encounter Summary ---
Author Organization [facility] Init iatives Address [address] [place] [address] Care Team Providers Care Cosmetic Sales Name Role Phone Linh Doty DO Primary Care Provider [phone] Lizzie Alves PA-C Unavailable [phone] Kaushik Mariscal MD Unavailable Encounter Details Date Type Department Care Team (Late st Contact Info) Description 07/16/2021 Transcribed Document [facility] [place] [address] [place] [address] ProviderChad MD [address] [place] [address] Social History Tobacco Use Types Packs/Day Years Used Date Smoking Tobacco: Never Assessed Comments Unknown Sex and Gender Information Value Date Recorded Sex Assigned at Not on file Legal Sex Female 3:27 PM CDT Gender Identity Not on file Sexual Orientation Not on file documented as of this encounter Miscellaneous Notes * Cerner Conversion Note - Chad ProviderMD - 07/16/2021 1:14 PM CDT Patient: GAGAN MENDOZA Age: 55 years Sex: Female : 1965 Associated Diagnoses: None Author: MIRELLA GEORGE MD-CAR Basic Information PCP: Linh Doty Skin Care Instructor: Pedro Cruz NP Chief Complaint Draining from Pacemaker pocket. History of Present Illness Ms. Gagan Mendoza is a pleasant 55-year-old female with past medical history of coronary artery disease, ischemic cardiomyopathy, congestive heart failure, left ventricular action fraction of 35 to 40%, and history of LV apical thrombus s/p AICD ([employer]) single chamber implanted in August 2011 , history of ventricular tachycardia, hypertension, hyperlipidemia, peripheral arterial disease, and ongoing tobacco abuse. She had a gen change by last month and presented today in clinic for follow up she c/o swelling in ICD site. No fever no chills, no chest pain no palpitations. Review of Systems Constitutional: Negative except as documented in history of present illness. Eye: Negative except as documented in history of present illness. Ear/Nose/Mouth/Throat: Negative except as documented in history of present illness. Respiratory: Negative except as documented in history of present illness. Cardiovascular: Negative except as documented in history of present illness. Gastrointestinal: Negative except as documented in history of present illness. Genitourinary: Negative except as documented in history of present illness. Hematology/Lymphatics: Negative except as documented in history of present illness. Endocrine: Negative except as documented in history of present illness. Immunologic: Negative except as documented in history of present illness. Musculoskeletal: Negative except as documented in history of present illness. Integumentary: Negative except as documented in history of present illness. Neurologic: Negative except as documented in history of present illness. Psychiatric: Negative except as documented in history of present illness. Health Status No qualifying data available Home Medications (13) Active acetaminophen-HYDROcodone 325 mg-5 mg oral tablet carvedilol 12.5 mg oral tablet 12.5 mg = 1 Tab, Oral, BID fluticasone furoate 50 mcg inhalation powder 1 Puff, Inhalation, [id number] folic acid 1 mg oral tablet 1 mg = 1 Tab, Oral, Daily furosemide 20 mg, Oral, At Bedtime gabapentin 600 mg oral tablet 600 mg = 1 Tab, Oral, At Bedtime lisinopril 20 mg oral tablet 20 mg = 1 Tab, Oral, At Bedtime pantoprazole 40 mg oral delayed release tablet 40 mg = 1 Tab, Oral, Daily Plavix 75 mg oral tablet 75 mg = 1 Tab, Oral, At Bedtime Potassium Chloride (Eqv-K-Tab) 10 mEq oral tablet, extended release 10 mEq = 1 Tab, Oral, Daily rosuvastatin 10 mg oral tablet 10 mg = 1 Tab, Oral, At Bedtime topiramate 25 mg oral capsule, extended release 25 mg = 1 Cap, Oral, At Bedtime Vitamin D2 1.25 mg (50,000 intl units) oral capsule 50,000 Int Units = 1 Cap, Oral, Weekly Allergies: Allergic Reactions (Selected) No Known Allergies, No qualifying data available Current medications: (Selected) Documented Medications Documented Plavix 75 mg oral tablet: 1 Tab, Oral, At Bedtime, 0 Refill(s) Potassium Chloride (Eqv-K-Tab) 10 mEq oral tablet, extended release: 1 Tab, Oral, Daily, 0 Refill(s) Vitamin D2 1.25 mg (50,000 intl units) oral capsule: 1 Cap, Oral, Weekly, 0 Refill(s) acetaminophen-HYDROcodone 325 mg-5 mg oral tablet: 120 Each, TAKE ONE TABLET BY MOUTH EVERY 6 HOURS MAY CAUSE DROWSINESS, 0 Refill(s) carvedilol 12.5 mg oral tablet: 1 Tab, Oral, BID, 180 Tab, 0 Refill(s) fluticasone furoate 50 mcg inhalation powder: 1 Puff, Inhalation, [id number], rinse mouth and throat after use, 30 Each, 0 Refill(s) folic acid 1 mg oral tablet: 1 Tab, Oral, Daily, 0 Refill(s) furosemide: 20 mg, Oral, At Bedtime, 0 Refill(s) gabapentin 600 mg oral tablet: 1 Tab, Oral, At Bedtime, 0 Refill(s) lisinopril 20 mg oral tablet: 1 Tab, Oral, At Bedtime, 30 Tab, 0 Refill(s) pantoprazole 40 mg oral delayed release tablet: 1 Tab, Oral, Daily, 30 Tab, 0 Refill(s) rosuvastatin 10 mg oral tablet: 1 Tab, Oral, At Bedtime, 30 Tab, 0 Refill(s) topiramate 25 mg oral capsule, extended release: 1 Cap, Oral, At Bedtime, 0 Refill(s), No qualifying data available Problem list: All Problems High cholesterol / SNOMED CT 90238875 / Confirmed PAD (peripheral artery disease) / SNOMED CT 0023930603 / Confirmed Chronic CHF / SNOMED CT 186216613 / Confirmed Current smoker / SNOMED CT 022426714 / Confirmed Arteriosclerosis / SNOMED CT 099886032 / Confirmed Intermittent claudication / SNOMED CT 700759170 / Confirmed Cardiomyopathy / SNOMED CT 664717400 / Confirmed History of DE (myocardial infarction) / SNOMED CT 2968345971 / Confirmed Pacemaker / SNOMED CT 8418865908 / Confirmed Stented coronary artery / SNOMED CT 0904672089 / Confirmed Gout / SNOMED CT 594841424 / Confirmed At risk for sleep apnea / IMO 79443796 / Confirmed Resolved: History of ventricular tachycardia / SNOMED CT 9374427829 ICD placed in past for arrythmia. Canceled: HTN (hypertension) / SNOMED CT 2461329075 Canceled: COPD (chronic obstructive pulmonary disease) / SNOMED CT 49659575 Canceled: At risk for sleep apnea / IMO [id number] Canceled: History of ischemic cardiomyopathy / SNOMED CT 086691740 Canceled: Abdominal aortic stenosis / SNOMED CT 356598705 Canceled: Shortness of breath / SNOMED CT 075393813, Active Problems (12) Arteriosclerosis At risk for sleep apnea Cardiomyopathy Chronic CHF Current smoker Gout High cholesterol History of DE (myocardial infarction) Intermittent claudication Pacemaker PAD (peripheral artery disease) Stented coronary artery Histories No education data available. Social & Psychosocial Habits Alcohol 07/01/2021 Alcohol Use History, Social Habits No Alcohol Use in Last Twelve Months No Substance Abuse 07/01/2021 Recreational Drug Use History No Recreational Drug Use Last 12 Months No Tobacco 07/01/2021 Smoking Status 10 or more cigarettes (1/ Smokeless Tobacco Status Never Smokeless Tobacco Use History None Years of Tobacco Use 40 Past Medical History: No active or resolved past medical history items have been selected or recorded. Family History: No family history items have been selected or recorded., no family history of SCD Procedure history: ICD implant. heart catheterization- multiple. peripheral angiogram - multiple. uterine surgery. Social History Social & Psychosocial Habits Alcohol 07/01/2021 Alcohol Use History, Social Habits No Alcohol Use in Last Twelve Months No Substance Abuse 07/01/2021 Recreational Drug Use History No Recreational Drug Use Last 12 Months No Tobacco 07/01/2021 Smoking Status 10 or more cigarettes (1/ Smokeless Tobacco Status Never Smokeless Tobacco Use History None Years of Tobacco Use 40 . Physical Examination VS/Measurements Vitals Signs (last 24 hrs) Last Charted Minimum Maximum Temp 98.0 (JUL 16 12:06) 98.0 (JUL 16:) 98.0 (JUL 16:) Periph HR 78 (JUL 16 12:06) 78 (JUL 16 12:06) 78 (JUL 16:) Resp Rate 20 (JUL 16 12:) 20 (JUL 16 12:06) 20 (JUL 16:) SBP H 152 (JUL 16:) H 152 (JUL 16:) H 152 (JUL 16:) DBP 84 (JUL 16:) 84 (JUL 16:) 84 (JUL 16:) SpO2 L 90 (JUL 16:) L 90 (JUL 16:) L 90 (JUL 16:) General: Alert and oriented. Eye: Pupils are equal, round and reactive to light. HENT: Normocephalic. Neck: Supple, Non-tender, No carotid bruit, No jugular venous distention. Respiratory: Lungs are clear to auscultation, Respirations are non-labored. Cardiovascular: Normal rate, Regular rhythm, No murmur, Good pulses equal in all extremities. Jugular Veins: Not distended. Gastrointestinal: Soft, Non-tender, Non-distended, Normal bowel sounds. Musculoskeletal: Normal range of motion. Integumentary: Warm, Dry, [place]. Neurologic: Alert, Oriented. Psychiatric: Cooperative, Appropriate mood & affect. Review / Management JUL 16 12:40 138 105 10 / 97 4.1 28 0.80 \ JUL 16 12:40 \ H 17.9 / 7.4 L 140 / H 56.1 \ Telemetry/ECG I personally reviewed the last 24 hour telemetry that show normal sinus rhythm Cardiac echo - 04/06/2020 Impression: Optison ultrasound enhancing agent administered to enhance endocardial borders. History of stable LV apical thrombus. Normal sized left ventricle. Mild left ventricular hypertrophy. Visually estimated ejection fraction 40% +/- 5%. Abnormal left ventricular systolic function; abnormal systolic strain pattern. Abnormal diastolic function. No hemodynamically significant valvular heart disease. Left ventricular apical thrombus. Measurements Summary: LVEDd: 4.82 cm LVESd: 3.92 cm IVSEd: 1.09 cm AO Root:2.99 cm LVPWd: 1.35 cm Results review: Labs (Last four charted values) WBC 7.4 [...] 7.6 (JUL 16) ALB 3.5 (JUL 16) . Impression and Plan IMPRESSION: *gen change 07/01/2021 draining of hematoma at pocket *ICM s/p single chamber ICD implanted 07/2011 and gen change 07/01/2021 (ROBIN) *hx LV apical thrombus was on Eliquis - being held currently *CAD - hx JH to LAD (2007); occluded RCA at ostium; patent LAD stent (2011 *hx VT *HTN *HLD *PAD *Ongoing tobacco abuse PLAN; Labs and telemetry will be ordered. Patient sent from clinic to be admitted by [facility] physician group for IV antibiotics. Will request blood cultures, consult ID, further plans to follow. documented in this encounter Plan of Treatment Not on file documented as of this encounter Visit Diagnoses Not on filedocumented in this encounter Care Teams Cosmetic Sales Relationship Specialty Start Date End Date Linh Doty, [address] [place] [address] PCP - General Family Medicine 11/04/22 Lizzie Alves PA-C [address], [facility] [address] [place] [address] Hospitalist Cardiology 05/27/23 Kaushik Mariscal MD [address] [facility] [place] [address] Skin Care Instructor Electrophysiology 11/18/23 documented as of this encounter
--- OUTSIDE RECORDS SUMMARY | 2024-07-27 14:20 | XMS_ITS | Encounter Summary ---
Author Organization Healthcare Address [address] [place] [address] Care Team Providers Care Mine Boss Name Role Phone Felicitas Mealra Delilah DENISE Primary Care Provider [phone] Encounter Details Date Type Department Care Team (Late st Contact Info) Description 06/01/2024 Abstract Medical Office Building Surgical Specialties [address] [facility], [address] [place] [address] Gamaliel Zaragoza Social History Tobacco [...] Recorded Patient Health Questionnaire-2 Score 0 05/30/2024 [facility] - Occupational Stress Questionnaire Answer Date Recorded [...] In the past 12 months has e [place] [employer], gas, oil, or water company threatened to shut off services in your home? No 06/02/2024 Comments No Sex and Gender Information Value Date Recorded Sex Assigned at Not on file Legal Sex Female 8:21 PM EDT Gender Identity Not on file Sexual Orientation Not on file documented as of this encounter Plan of Treatment Upcoming Encounters Date Type Department Care Team ([facility] st Contact Info) Description 11/30/2024 2:20 PM EDT Office Visit [facility] Endocrinology [address] [place] [address] Natalia Alves MD [address] [facility] [address] [place] [address] 12/08/2024 3:00 PM EDT Office Visit Medical Office Building Surgical Specialties [address] [facility] [address], [address] [place] [address] Amish Escobedo MD [address] [facility] [address] [place] [address] documented as of this encounter Visit Diagnoses Not on filedocumented in this encounter Additional Health Concerns Assessment Noted Time A Body Mass Index follow-up plan has been documented for the patient 05/30/2024 1:38 PM EDT documented as of this encounter Care Teams Mine Boss Relationship Specialty Start Date End Date Felicitas Melara APRN [address] [place] [address] PCP - General 01/29/24 documented as of this encounter
--- OUTSIDE RECORDS SUMMARY | 2024-07-27 14:20 | XMS_ITS | Encounter Summary ---
Author Organization [employer] [facility] Init iatives Address [address] [place] [address] Care Team Providers Care Boom Boss Name Role Phone Linh Doty DO Primary Care Provider [phone] Lizzie Alves PA-C Unavailable [phone] Kaushik Mariscal MD Unavailable Encounter Details Date Type Department Care Team (Late st Contact Info) Description 08/27/2021 Transcribed Document [facility] [place] Family Medicine [address] [place] [address] ProviderChad MD [address] [place] [address] Social History Tobacco Use Types Packs/Day Years Used Date Smoking Tobacco: Never Assessed Comments Unknown Sex and Gender Information Value Date Recorded Sex Assigned at Not on file Legal Sex Female 3:27 PM CDT Gender Identity Not on file Sexual Orientation Not on file documented as of this encounter Miscellaneous Notes * Cerner Conversion Note - Chad Merchant MD - 08/27/2021 11:15 AM CDT Patient Resource Center Entered On: 08/27/2021 11:17 EDT Performed On: 08/27/2021 11:15 EDT by Jamila Townsend, TIRE DEBEADER Patient Resource Center Provider Status : EST Other Established Provider Name : Linh Doty Patient Phone Number : [phone] Patient Insurance Type : Medicare Source of Referral : Case management Location of Patient : Case management referral Primary Care Scheduled : Yes Primary Care Scheduled Type : Non [facility] Primary Care Provider Name : Linh Doty Primary Care Appointment Date/Time : 09/04/2021 10:00 EDT Specialty Care Scheduled : Yes Specialty Type Scheduled1 : [facility] Cardiology Specialty Type Scheduled2 : [facility] Other [facility] Cardiology Provider Name : Kaushik Mariscal [facility] Cardiology Appointment Date/Time : 09/03/2021 14:00 EDT [facility] Other Provider Name : Lenka Benavidez [facility] Other Provider Appointment Date/Time : 10/11/2021 9:00 EDT Qualify for Diabetes and/or Nutrition Referral : No Wound Care Appointment Made : No Why Patient Visited ED- Specialty spent : Other How Patient Arrived at ED : Other Primary Language : Greek Patient Resource Center Comment : PCP and CARDIOLOGY appts made, CARDIO EP appt already made Follow Up Needed : No Jamila Townsend, TIRE DEBEADER - 08/27/2021 11:15 EDT Electronically signed by [facility], [facility] Conversion [employer] Station Attendant Cerner at 05/27/2022 8:59 PM CDT documented in this encounter Plan of Treatment Not on file documented as of this encounter Visit Diagnoses Not on filedocumented in this encounter Care Teams Boom Boss Relationship Specialty Start Date End Date Linh Doty Delilah, DO [address] [facility] [address] [place] [address] PCP - General Family Medicine 11/04/22 Lizzie Alves PA-C [address] [facility], [facility] [address] [place] [address] Hospitalist Cardiology 05/27/23 Kaushik Mariscal MD [address] [facility] [address] [place], [place] [id number] Air Brake Worker Electrophysiology 11/18/23 documented as of this encounter
--- OUTSIDE RECORDS SUMMARY | 2024-07-27 14:20 | XMS_ITS | Encounter Summary ---
Author Organization Healthcare Address [address] [place] [address] Care Team Providers Care Temper Mill Roller Name Role Phone MelaraFelicitas Delilah DENISE Primary Care Provider [phone] Encounter Details Date Type Department Care Team [...] Recorded Patient Health Questionnaire-2 Score 0 05/30/2024 [facility] - Occupational [...] the past 12 months has th e [employer] gas, oil, or water [employer] threatened to shut off services in your [...] 11/30/2024 2:20 PM EDT [facility] [address] [place] [address] Natalia Alves MD [address] [place] [address] 12/08/2024 3:00 PM EDT Office Visit Medical Office Building Surgical Specialties [address], [address] [place] [address] Amish Escobedo MD [address] [facility] [address] [place] [address] documented as of this encounter Visit Diagnoses Not on filedocumented in this encounter Additional Health Concerns Assessment Noted Time A fall risk assessment has been complete d for the patient 06/02/2024 1:58 PM EDT A Body Mass Index follow-up plan has been documented for the patient 06/02/2024 2:45 PM EDT documented as of this encounter Care Teams Temper Mill Roller Relationship Specialty Start Date End Date Felicitas Melara APRN [address] [place] [address] PCP - General 01/29/24 documented as of this encounter
--- OUTSIDE RECORDS SUMMARY | 2024-07-27 14:20 | XMS_ITS | Encounter Summary ---
Author Organization [employer] Address [address] [place] [address] Care Team Providers Care Heavy Rail Train Operator Name Role Phone Lalitha Linh Delilah DAVIS Primary Care Provider [phone] Lizzie Alves PA-C Unavailable [phone] Dion Mariscal MD Unavailable Encounter Details Date Type Department Care Team (Late st Contact Info) Description 07/18/2021 Transcribed Document [facility] [place] Family Medicine [address] [place] [address] ProviderChad MD [address] [place] [address] Social History Tobacco Use Types Packs/Day Years Used Date Smoking Tobacco: Never Assessed Comments Unknown Sex and Gender Information Value Date Recorded Sex Assigned at Not on file Legal Sex Female 3:27 PM CDT Gender Identity Not on file Sexual Orientation Not on file documented as of this encounter Miscellaneous Notes * Cerner Conversion Note - Chad Merchant MD - 07/18/2021 10:10 AM CDT Patient: GAGAN MENDOZA Age: 55 years Sex: Female : 1965 Associated Diagnoses: None Author: DION MARISCAL MD-CAR Subjective Chief complaint. NAD Health Status Allergies: Allergic Reactions (Selected) No Known Allergies, No qualifying data available Current medications: (Selected) Inpatient Medications Ordered Colace: 100 mg, Oral, BID, PRN: Constipation Florastor: 250 mg, Oral, BID Lasix: 20 mg, Oral, Daily MiraLax: 17 Gram, Oral, Daily, PRN: Constipation Roxicodone: 5 mg, Oral, Q4H, PRN: Pain (Moderate 4-6) Tylenol: 650 mg, Oral, Q4H, PRN: Pain (Mild 1-3) Zofran: 4 mg, IV Push, Q4H, PRN: Nausea Zosyn + Sodium Chloride 0.9% intravenous solution 100 mL: 3.375 Gram, 33.33 mL/Hr, IV Piggyback, Q6HInt carvedilol: 12.5 mg, Oral, BID ergocalciferol: 50,000 Units, Oral, Weekly folic acid: 1 mg, Oral, Daily gabapentin: 600 mg, Oral, TID hydrALAZINE: 5 mg, IV Push, Q4H, PRN: Hypertension lisinopril: 20 mg, Oral, At Bedtime morphine: 2 mg, IV Push, Q2H, PRN: Pain (Severe 7-10) nicotine 21 mg/24 hr transdermal film, extended release: 1 Patch, TransDermal, Daily pantoprazole: 40 mg, Oral, Daily potassium chloride extended release: 10 mEq, Oral, Daily rosuvastatin: 10 mg, Oral, At Bedtime sodium chloride 0.9% injectable solution: 10 mL, IV Push, Q8H topiramate: 25 mg, Oral, At Bedtime vancomycin + Sodium Chloride 0.9% intravenous solution 250 mL: 1,000 mg, 250 mL/Hr, IV Piggyback, [id number] Prescriptions Prescribed nicotine 21 mg/24 hr transdermal film, extended release: 1 Patch, TransDermal, Daily, for 14 Day(s), 14 Patch, 0 Refill(s) Documented Medications Documented Florastor 250 mg oral capsule: 1 Cap, Oral, BID, 0 Refill(s) Potassium Chloride (Eqv-K-Tab) 10 mEq oral tablet, extended release: 1 Tab, Oral, Daily, 0 Refill(s) Vitamin D2 1.25 mg (50,000 intl units) oral capsule: 1 Cap, Oral, Weekly, 0 Refill(s) acetaminophen-HYDROcodone 325 mg-5 mg oral tablet: 1 Tab, Oral, Q8H, PRN: for pain, 0 Refill(s) carvedilol 12.5 mg oral tablet: 1 Tab, Oral, BID, 180 Tab, 0 Refill(s) fluticasone 50 mcg/inh nasal spray: 2 Cameron, Nasal, Daily, PRN: Nasal Congestion, 16 Gram, 0 Refill(s) folic acid 1 mg oral tablet: 1 Tab, Oral, Daily, 0 Refill(s) furosemide 20 mg oral tablet: 1 Tab, Oral, Daily, 0 Refill(s) gabapentin 600 mg oral tablet: 1 Tab, Oral, TID, 0 Refill(s) lisinopril 20 mg oral tablet: 1 Tab, Oral, At Bedtime, 30 Tab, 0 Refill(s) pantoprazole 40 mg oral delayed release tablet: 1 Tab, Oral, Daily, 30 Tab, 0 Refill(s) rosuvastatin 10 mg oral tablet: 1 Tab, Oral, At Bedtime, 30 Tab, 0 Refill(s) topiramate 25 mg oral tablet: 1 Tab, Oral, At Bedtime, 0 Refill(s), Home Medications (14) Active acetaminophen-HYDROcodone 325 mg-5 mg oral tablet 1 Tab, PRN, Oral, Q8H carvedilol 12.5 mg oral tablet 12.5 mg = 1 Tab, Oral, BID Florastor 250 mg oral capsule 250 mg = 1 Cap, Oral, BID fluticasone 50 mcg/inh nasal spray 2 Cameron, PRN, Nasal, Daily folic acid 1 mg oral tablet 1 mg = 1 Tab, Oral, Daily furosemide 20 mg oral tablet 20 mg = 1 Tab, Oral, Daily gabapentin 600 mg oral tablet 600 mg = 1 Tab, Oral, TID lisinopril 20 mg oral tablet 20 mg = 1 Tab, Oral, At Bedtime nicotine 21 mg/24 hr transdermal film, extended release 1 Patch, TransDermal, Daily pantoprazole 40 mg oral delayed release tablet 40 mg = 1 Tab, Oral, Daily Potassium Chloride (Eqv-K-Tab) 10 mEq oral tablet, extended release 10 mEq = 1 Tab, Oral, Daily rosuvastatin 10 mg oral tablet 10 mg = 1 Tab, Oral, At Bedtime topiramate 25 mg oral tablet 25 mg = 1 Tab, Oral, At Bedtime Vitamin D2 1.25 mg (50,000 intl units) oral capsule 50,000 Int Units = 1 Cap, Oral, Weekly , Medications (22) Active Scheduled: (15) #NaCl 0.9% *FLUSH* inj 10 mL 10 mL, IV Push, Q8H carvedilol 12.5 mg tab 12.5 mg 1 Tab, Oral, BID ergocalciferol 50,000 unit cap 50,000 Units 1 Cap, Oral, Weekly folic acid 1 mg tab 1 mg 1 Tab, Oral, Daily furosemide 20 mg tab 20 mg 1 Tab, Oral, Daily gabapentin 600 mg tab 600 mg 1 Tab, Oral, TID lisinopril 20 mg tab 20 mg 1 Tab, Oral, At Bedtime nicotine 21 mg/24 hr patch 1 Patch, TransDermal, Daily pantoprazole EC 40 mg tab 40 mg 1 Tab, Oral, Daily piperacillin-tazobactam + NaCl 0.9% 100 mL 3.375 Gram, IV Piggyback, Q6HInt potassium chloride CR 10 mEq tab 10 mEq 1 Tab, Oral, Daily rosuvastatin 10 mg tab 10 mg 1 Tab, Oral, At Bedtime saccharomyces boulardii 250 mg cap 250 mg 1 Cap, Oral, BID topiramate 25 mg tab 25 mg 1 Tab, Oral, At Bedtime vancomycin + NaCl 0.9% 250 mL 1,000 mg, IV Piggyback, [id number] Continuous: (0) PRN: (7) acetaminophen 325 mg tab 650 mg 2 Tab, Oral, Q4H docusate sodium 100 mg cap 100 mg 1 Cap, Oral, BID hydrALAZINE 20 mg/1 mL inj 5 mg 0.25 mL, IV Push, Q4H morphine 2 mg/1 ml inj 2 mg 1 mL, IV Push, Q2H ondansetron 4 mg/2 mL inj 4 mg 2 mL, IV Push, Q4H oxyCODONE 5 mg tab 5 mg 1 Tab, Oral, Q4H polyethylene glycol 3350 pwd 17 g pkt 17 Gram 1 Packet, Oral, Daily Problem list: All Problems High cholesterol / SNOMED CT 75155378 / Confirmed PAD (peripheral artery disease) / SNOMED CT 4118658857 / Confirmed Chronic CHF / SNOMED CT 510369557 / Confirmed Current smoker / SNOMED CT 148137315 / Confirmed Arteriosclerosis / SNOMED CT 742250686 / Confirmed Intermittent claudication / SNOMED CT 473829447 / Confirmed Cardiomyopathy / SNOMED CT 752225583 / Confirmed History of GA (myocardial infarction) / SNOMED CT 5489111416 / Confirmed Pacemaker / SNOMED CT 3560459738 / Confirmed Stented coronary artery / SNOMED CT 5505485460 / Confirmed Gout / SNOMED CT 016531854 / Confirmed At risk for sleep apnea / IMO 39654640 / Confirmed Resolved: History of ventricular tachycardia / SNOMED CT 3094967325 ICD placed in past for arrythmia. Canceled: HTN (hypertension) / SNOMED CT 4716719884 Canceled: COPD (chronic obstructive pulmonary disease) / SNOMED CT 92323110 Canceled: At risk for sleep apnea / IMO 67640176 Canceled: History of ischemic cardiomyopathy / SNOMED CT 634346160 Canceled: Abdominal aortic stenosis / SNOMED CT 496997891 Canceled: Shortness of breath / SNOMED CT 522895558, Active Problems (12) Arteriosclerosis At risk for sleep apnea Cardiomyopathy Chronic CHF Current smoker Gout High cholesterol History of GA (myocardial infarction) Intermittent claudication Pacemaker PAD (peripheral artery disease) Stented coronary artery Objective Intake and Output 24 hour intake, 24 hour output VS/Measurements Vitals Signs (last 24 hrs) Last Charted Minimum Maximum Temp 98.8 (JUL 18 02:15) 98.8 (JUL 18 02:15) 98.5 (JUL 17:13) Mon HR 79 (JUL 18 01:30) 74 (JUL 17 11:00) 96 (JUL 17 13:30) Resp Rate 18 (JUL 17:13) 15 (JUL 17 11:00) H 21 (JUL 17 13:30) SBP 102 (JUL 18 01:30) 96 (JUL 17 12:30) 111 (JUL 17 13:00) DBP 60 (JUL 18 01:30) L 59 (JUL 17 11:30) 67 (JUL 17 13:00) MAP 72 (JUL 18 01:30) 72 (JUL 18 01:30) 81 (JUL 17 13:00) SpO2 96 (JUL 18 01:00) L 88 (JUL 17 15:30) 96 (JUL 17 22:30) Results Review Telemetry - SR with PAC's General: Alert and oriented. Eye: Pupils are [...] Normal range of motion. Integumentary: Warm, Dry, [place]. Neurologic: Alert, Oriented. Psychiatric: Cooperative, Appropriate mood & affect. JUL 18 04:43 L 135 103 13 / 99 3.6 H 34 0.90 \ JUL 18 04:43 \ H 16.2 / 9.6 L 106 / H 52.1 \ Telemetry/ECG I personally reviewed the last [...] cm AO Root:2.99 cm LVPWd: 1.35 cm CR Chest 1 Vw Portable (07/16/2021 13:03) Result: PORTABLE CHEST 07/16/2021 12:39 PM HISTORY: Anterior chest pain.COMPARISON: July 02, 2021FINDINGS: The heart is proper size. The mediastinum is unremarkable. Diffuse interstitial changes are probably chronic. The lungs areotherwise clear. There is no pneumothorax. The osseous structures areunremarkable. A pacemaker overlies the left chest.IMPRESSION: No acute cardiopulmonary process. Continued follow-up is recommended.Images reviewed, interpreted, and dictated by Dr. Noel Jones.Transcribed by Lobito Bo(R).I have personally viewed, interpreted and dictated the examination. Ihave read and agree with the above final transcribed report. Impression and Plan IMPRESSION: *gen change 07/01/2021 draining of hematoma at pocket *ICM s/p single chamber ICD implanted 07/2011 and gen change 07/01/2021 (SJAj) *hx LV apical thrombus was on Eliquis - being held currently *CAD - hx JH to LAD (2007); occluded RCA at ostium; patent LAD stent (2011 *hx VT *HTN *HLD *PAD *Ongoing tobacco abuse PLAN; 07/18/2021 PPM pocket stable. No further swelling. No drainage noted. Will continue IV antibiotics. Patient in SR. Will replace both Magnesium and Potassium today. we will keep her off any anticoagulants for a few days and keep her on antibiotics IV also for a few days to have the chance of saving her device. 07/17/2021 Appreciate ID's input. Pocket stable this AM no further draining. will try to save the device from removal 07/16/2021 Labs and telemetry will be ordered. Patient sent from clinic to be admitted by [facility] physician group for IV antibiotics. Will request blood cultures, consult ID, further plans to follow. documented in this encounter Plan of Treatment Not on file documented as of this encounter Visit Diagnoses Not on filedocumented in this encounter Care Teams Heavy Rail Train Operator Relationship Specialty Start Date End Date Linh Doty, [address] [facility] [address] [place] [address] PCP - General Family Medicine 11/04/22 Lizzie Alves PA-C [address] [place] [address], [facility] [address] [place] [address] Hospitalist Cardiology 05/27/23 Dion Mariscal MD [address] [facility] [address] [place] [address] Rotary Drier Feeder Electrophysiology 11/18/23 documented as of this encounter
--- OUTSIDE RECORDS SUMMARY | 2024-07-27 14:20 | XMS_ITS | Encounter Summary ---
Author Organization [email or web address] [facility] Address [address] [place] [address] Care Team Providers Care Lamp Replacer Name Role Phone Linh Doty DO Primary Care Provider [phone] Lizzie Alves PA-C Unavailable [phone] Kaushik Mariscal MD Unavailable Encounter Details Date Type Department Care Team (Late st Contact Info) Description 07/16/2021 Transcribed Document [facility] [place] [facility] [place] [address] ProviderChad MD [address] [place] [address] Social History Tobacco Use Types Packs/Day Years Used Date Smoking Tobacco: Never Assessed Comments Unknown Sex and Gender Information Value Date Recorded Sex Assigned at Not on file Legal Sex Female 3:27 PM CDT Gender Identity Not on file Sexual Orientation Not on file documented as of this encounter Miscellaneous Notes * Cerner Conversion Note - Chad ProviderMD - 07/16/2021 12:00 PM CDT ED Assessment Entered On: 07/16/2021 12:53 EDT Performed On: 07/16/2021 12:00 EDT by Mary Ellen Nance, Financial Advisor Trainee Student Nurse ED Quick Look Assessment Level of Consciousness : Alert Affect/Behavior : Appropriate, Calm, Cooperative Orientation : Oriented x 4 Skin Temperature : Warm Skin Description : Normal for ethnicity Mary Ellen Nance, Financial Advisor Trainee Student Nurse - 07/16/2021 12:49 EDT (Not Validated) ED General-Functional Assess Information Obtained From : Patient, Spouse Preferred Communication Mode : Verbal Communication Barrier : None Primary Language : Syrian Any Spiritual/Cultural Needs or Requests : No Currently in Unsafe Situation : No Mary Ellen Nance Financial Advisor Trainee Student Nurse - 07/16/2021 12:49 EDT (Not Validated) Social Habits Smoking Status : Never (less than 100 in lifetime; none in last 30 days) Smokeless Tobacco Status : Never Desires Tobacco Cessation Calc : 0 Mary Ellen Nance Financial Advisor Trainee Student Nurse - 07/16/2021 12:49 EDT [Not Validated] Social History (As Of: 07/16/2021 12:53:48 EDT) Tobacco: 10 or more cigarettes (1/2 [...] 07/01/2021 12:59:21 EDT by Rere Ramos, RN) Cardiovascular ASMT, ED Cardiovascular Assessment WDL : WDL with exceptions (Comment: pacemaker is edematous, there is an area of bleeding controlled with pressure. Patient denies anty other symptoms. [Mary Ellen Nance, Financial Advisor Trainee Student Nurse - 07/16/2021 12:49 EDT] ) Mary Ellen Nance Financial Advisor Trainee Student Nurse - 07/16/2021 12:49 EDT (Not Validated) documented in this encounter Plan of Treatment Not on file documented as of this encounter Visit Diagnoses Not on filedocumented in this encounter Care Teams Lamp Replacer Relationship Specialty Start Date End Date Linh Doty, [address] [facility] [address] [place] [address] PCP - General Family Medicine 11/04/22 Lizzie Alves PA-C [address] [place] [address] Rd, [facility] [address] [place] [address] Hospitalist Cardiology 05/27/23 Kaushik Mariscal MD [address] [facility] [address] [place] [address] Franchise Specialist Electrophysiology 11/18/23 documented as of this encounter
--- OUTSIDE RECORDS SUMMARY | 2024-07-27 14:20 | XMS_ITS | Encounter Summary ---
Author Organization [employer] [facility] Init iatives Address [address] [place] [address] Care Team Providers Care Legal Administrator Name Role Phone Linh Doty DO Primary Care Provider [phone] Lizzie Alves PA-C Unavailable [phone] Kaushik Mariscal MD Unavailable Encounter Details Date Type Department Care Team (Late st Contact Info) Description 08/26/2021 Transcribed Document [facility] [place] Family Medicine [address] [place] [address] ProviderChad MD [address] [place] [address] Social History Tobacco Use Types Packs/Day Years Used Date Smoking Tobacco: Never Assessed Comments Unknown Sex and Gender Information Value Date Recorded Sex Assigned at Not on file Legal Sex Female 3:27 PM CDT Gender Identity Not on file Sexual Orientation Not on file documented as of this encounter Miscellaneous Notes * Cerner Conversion Note - Chad Merchant MD - 08/26/2021 10:06 PM CDT Pain Assessment Entered On: 08/27/2021 1:10 EDT Performed On: 08/26/2021 23:13 EDT by Faye Argueta RN-PATIENT CARE BEDSIDE NON-EXEMPT Intervention Information: oxyCODONE Performed by Faye Argueta RN-PATIENT CARE BEDSIDE NON-EXEMPT on 08/26/2021 22:13:00 EDT oxyCODONE,10mg Oral,Pain (Moderate 4-6) Pain Assessment Pain Assessment : Follow-up assessment Pain Scale Used : 0-10 Scale Faye Argueta RN-PATIENT CARE BEDSIDE NON-EXEMPT - 08/27/2021 1:10 EDT Pain Scale Intensity : 0 Faye Argueta RN-PATIENT CARE BEDSIDE NON-EXEMPT - 08/27/2021 1:10 EDT Image 4 - Images currently included in the form version of this document have not been included in the text rendition version of the form. Electronically signed by Reyna Da Silva Conversion Retail Advertising Account Executive Cerner at 05/27/2022 9:04 PM CDT documented in this encounter Plan of Treatment Not on file documented as of this encounter Visit Diagnoses Not on filedocumented in this encounter Care Teams Legal Administrator Relationship Specialty Start Date End Date Linh Doty, [address] [facility] [address] [place] [address] PCP - General Family Medicine 11/04/22 Lizzie Alves PA-C [address] [place] [address], [facility] [address] [place] [address] Hospitalist Cardiology 05/27/23 Kaushik Mariscal MD [address] [facility] [address] [place] [address] Cupola Operator Insulation Electrophysiology 11/18/23 documented as of this encounter
--- OUTSIDE RECORDS SUMMARY | 2024-07-27 14:20 | XMS_ITS | Encounter Summary ---
Author Organization [employer] [facility] Init [facility]atives Address [address] [place] [address] Care Team Providers Care Range Aide Name Role Phone Linh Doty DO Primary Care Provider [phone] Lizzie Alves PA-C Unavailable [phone] Kaushik Mariscal MD Unavailable Encounter Details Date Type Department Care Team (Late st Contact Info) Description 08/26/2021 Transcribed Document [facility] [place] Family Medicine [address] [place] [address] ProviderChad MD [address] [place] [address] Social History Tobacco Use Types Packs/Day Years Used Date Smoking Tobacco: Never Assessed Comments Unknown Sex and Gender Information Value Date Recorded Sex Assigned at Not on file Legal Sex Female 3:27 PM CDT Gender Identity Not on file Sexual Orientation Not on file documented as of this encounter Miscellaneous Notes * Cerner Conversion Note - Chad ProviderMD - 08/26/2021 3:01 PM CDT Event Note Entered On: 08/26/2021 15:02 EDT Performed On: 08/26/2021 15:01 EDT by ABBIE MANDUJANO RN Event Note Event Date/Time : 08/26/2021 15:00 EDT Description of Event : Report to Sonja SMITH on 4 IC. Pt transferred to [facility] via wheelchair and all belongings. ABBIE MANDUJANO RN - 08/26/2021 15:01 EDT documented in this encounter Plan of Treatment Not on file documented as of this encounter Visit Diagnoses Not on filedocumented in this encounter Care Teams Range Aide Relationship Specialty Start Date End Date Linh Doty, DO [address] [facility] [address] [place] [address] PCP - General Family Medicine 11/04/22 Lizzie Alves PA-C [address] [facility], [facility] [address] [place] [address] Hospitalist Cardiology 05/27/23 Kaushik Mariscal MD [address] [facility] [address] [place] [address] Traffic Sergeant Electrophysiology 11/18/23 documented as of this encounter
--- OUTSIDE RECORDS SUMMARY | 2024-07-27 14:20 | XMS_ITS | Encounter Summary ---
Author Organization [facility] Init [facility] Address [address] [place] [address] Care Team Providers Care Sail Repairer Name Role Phone Linh Doty DO Primary Care Provider [phone] Lizzie Alves PA-C Unavailable [phone] Kaushik Mariscal MD Unavailable Encounter Details Date Type Department Care Team (Late st Contact Info) Description 07/16/2021 Transcribed Document [facility] [place] Family Medicine [address] [place] [address] ProviderChad MD [address] [place] [address] Social History Tobacco Use Types Packs/Day [...] Chad ProviderMD - 07/16/2021 12:00 PM CDT Broset Violence Assessment Entered On: 07/16/2021 14:34 EDT Performed On: 07/16/2021 14:34 EDT by MAIKEL ESPARZA RN Broset Violence Assessment Broset Violence Checklist of Symptoms : None Broset Violence Symptoms Subtotal : 0 Broset Violence Symptoms Indicator : Low risk (0) MAIKEL ESPARZA RN - 07/16/2021 14:34 EDT Electronically signed by [facility] Conversion Director Of Reimbursement Cerner at 05/27/2022 9:11 PM CDT documented in this encounter Plan of Treatment Not on file documented as of this encounter Visit Diagnoses Not on filedocumented in this encounter Care Teams Sail Repairer Relationship Specialty Start Date End Date Linh Doty, DO [address] [facility] [address] [place] [address] PCP - General Family Medicine 11/04/22 Lizzie Alves PA-C [address] [place] [address], [facility] [address] [place] [address] Hospitalist Cardiology 05/27/23 Kaushik Mariscal MD [address] [facility] [address] [place] [address] Hide Worker Electrophysiology 11/18/23 documented as of this encounter
--- OUTSIDE RECORDS SUMMARY | 2024-07-27 14:20 | XMS_ITS | Encounter Summary ---
Author Organization [employer] [facility] Init iatives Address [address] [place] [address] Care Team Providers Care Cement Mason Name Role Phone Linh Doty DO Primary Care Provider [phone] Lizzie Alves PA-C Unavailable [phone] Kaushik Mariscal MD Unavailable Encounter Details Date Type Department Care Team (Late st Contact Info) Description 08/27/2021 Transcribed Document [facility] [place] Medicine [address] [place] [address] Chad Merchant MD [address] [place] [address] Social History Tobacco Use Types Packs/Day Years Used Date Smoking Tobacco: Never Assessed Comments Unknown Sex and Gender Information Value Date Recorded Sex Assigned at Not on file Legal Sex Female 3:27 PM CDT Gender Identity Not on file Sexual Orientation Not on file documented as of this encounter Miscellaneous Notes * Cerner Conversion Note - Chad Merchant MD - 08/27/2021 12:40 PM CDT Patient Education Materials Follows: Heart-Healthy Eating Plan Heart-healthy meal planning includes: [...] plate with lean protein foods. ??? Eat 4?5 servings of vegetables per day. A serving of vegetables is: ? 1 cup of raw or cooked vegetables. ? 2 cups of raw leafy greens. ??? Eat 4?5 servings of fruit per day. A serving of fruit is: ? 1 medium whole fruit. ? ? cup of dried fruit. ? ? cup of fresh, frozen, or canned fruit. ? ? cup of 100% fruit juice. ??? Eat more foods that have soluble fiber. These are apples, broccoli, carrots, beans, peas, and barley. Try to get 20?30 g of fiber per day. ??? Eat 4?5 servings of nuts, legumes, and seeds per week: ? 1 serving of dried beans or legumes equals ? cup after being cooked. ? 1 serving of nuts is ? cup. ? 1 serving of seeds equals [...] Fats and oils Meat fat, or shortening. Henderson butter, hydrogenated oils, palm oil, coconut oil, [...] provider. Document Revised: 04/01/2018 Document Reviewed: 03/05/2018 [employer] Patient Education ? 2020 [employer]. Pharmacology General Anesthesia, Adult, Care After This sheet [...] activities are safe for you. ??? Take fqyx-pmt-epajfpa and prescription medicines only as told by [...] provider. Document Revised: 10/11/2020 Document Reviewed: 05/10/2020 [employer] Patient Education ? 2020 [employer]. Procedures Pacemaker Implantation, Adult, Care After This sheet [...] these instructions at home: Medicines ??? Take skat-mem-osfpsct and prescription medicines only as told by [...] the incision area clean and dry for 2?3 days after the procedure or as told by your health care provider. It takes several weeks for the incision site to completely heal. ??? Women may want to place a small pad over the incision site to protect it from their bra strap. ??? Do not take baths, swim, or use a hot tub for 7?10 days or until your health care provider [...] ??? Your pacemaker battery will last for 5?15 years. Your health care provider will do [...] or bruising over the incision. ??? Take gljt-ypv-shdqnzp and prescription medicines only as told by [...] provider. Document Revised: 12/28/2019 Document Reviewed: 12/28/2019 [employer] Patient Education ? 2020 [employer]. documented in this encounter Plan of Treatment Not on file documented as of this encounter Visit Diagnoses Not on filedocumented in this encounter Care Teams Cement Mason Relationship Specialty Start Date End Date Linh Doty, 8 [facility] [address] [place] [address] PCP - General Family Medicine 11/04/22 Lizzie Alves PA-C [address] [facility], [facility] [address] [place] [address] Hospitalist Cardiology 05/27/23 Kaushik Mariscal MD [address] [facility] [address] [place] [address] Scutcher Tender Electrophysiology 11/18/23 documented as of this encounter
--- OUTSIDE RECORDS SUMMARY | 2024-07-27 14:20 | XMS_ITS | Encounter Summary ---
Author Organization [employer] [facility] Init iatives Address [address] [place] [address] Care Team Providers Care Outboard Motorboat Rigger Name Role Phone Linh Doty DO Primary Care Provider [phone] Lizzie Alves PA-C Unavailable [phone] Kaushik Mariscal MD Unavailable Encounter Details Date Type Department Care Team (Late st Contact Info) Description 08/26/2021 Transcribed Document [facility] [place] [address] [place] [address] ProviderChad MD [address] [place] [address] Social History Tobacco Use Types Packs/Day Years Used Date Smoking Tobacco: Never Assessed Comments Unknown Sex and Gender Information Value Date Recorded Sex Assigned at Not on file Legal Sex Female 3:27 PM CDT Gender Identity Not on file Sexual Orientation Not on file documented as of this encounter Miscellaneous Notes * Cerner Conversion Note - Chad Merchant MD - 08/26/2021 10:50 AM CDT Patient: GAGAN MENDOZA Age: 56 Years Sex: Female : 1965 Airport Control Operator: Kaushik Mariscal MD Indication: 56-year-old female with past medical history of coronary artery disease, ischemic cardiomyopathy, congestive heart failure, left ventricular action fraction of 35 to 40%, and history of LV apical thrombus, currently on oral anticoagulation with Eliquis, AICD (Saint Sony) single chamber implanted in August 2011 , history of ventricular tachycardia, hypertension, hyperlipidemia, peripheral arterial disease, and ongoing tobacco abuse. She comes to clinic today because she almost got treated by her ICD for possibly SVT. In the past she had multiple episodes of most likely VT that were ATP terminated. Patient underwent her generator change on 01 Jul 2021 but was complicated with bleeding so her device had to be removed ultimately. We had a long discussion about whether to implant the device again. At this stage, her EF is 40% however she had several ATP in the past that were successful that were most likely VT. Therefore it would be reasonable to reimplant the device. Patient understand the risks that include bleeding infection. She is here for single chamber ICD reimplantation. Procedure report: After written informed consent was obtained, the patient was brought to the Electrophysiology Laboratory in a fasting state. Antibiotics were infused before skin prep - 2g Cefazolin. Sedation was managed by the anesthesia team. The skin was prepared with sterile scrub. The patency of the subclavian vein as well as the absence of persistent LSVC were verified with a venogram. The right infraclavicular region was anesthetized with local anesthesia. Following infiltration with 2% lidocaine, an incision was made below the right clavicle. Electrocautery carried down through the fascia to the device pocket, and electrocautery used for hemostasis. A pocket was created anterior to the pre-pectoral fascia. The right subclavian vein was punctured once over the 1st rib after a lot of difficulty that required Trendelenburg and reinjection of the venogram. A guidewire was advanced under fluoro to the IVC level. A 7Fr sheath was advanced over the 1st guidewire and through this sheath, an ICD lead was advanced into the RV and fixated higher into the mid septum where it yielded excellent pacing and sensing values with no diaphragmatic stimulation at maximum output. The lead was sutured to the pre-pectoral fascia with non-absorbable suture. A single chamber ICD was attached to the lead. The device/lead were placed into the pocket. The pocket was flushed with antibiotic solution. All lead impedance, sensing and pacing were tested and found to be in good working order through the pulse generator. The pulse generator was attached to the muscle. A tyrex poutch was used. The pocket was closed in 3 layers, using running 2-0 and 4-0 Vicryl. Dermabond was applied as well as Aquacel surgical dressing. Patient tolerated the procedure well and there were no complications at the end of the procedure. Lead and Device Information: The new device pulse generator was a Saint sony model [place] VR [id number] The V ventricular lead was a SJM model Durata 7122Q/58 serial number [id number] with a sensing of 11 mV, impedance of 540 ohms and a threshold of 0.75 V. Complications: No immediate complications were observed. Blood loss around 10 mL. Conclusion: Successful Procedure(s) of: 1. Single CHAMBER ICD SYSTEM PLACEMENT Plan: Discharge tomorrow and device clinic in 7-10 days. Electronically signed by Rekha [facility] Conversion Mine Engineer Cerner at 05/27/2022 9:05 PM CDT documented in this encounter Plan of Treatment Not on file documented as of this encounter Visit Diagnoses Not on filedocumented in this encounter Care Teams Outboard Motorboat Rigger Relationship Specialty Start Date End Date Linh Doty, 8 [facility] [address] [place] [address] PCP - General Family Medicine 11/04/22 Lizzie Alves PA-C [address] [place] [address], [facility] [address] [place] [address] Hospitalist Cardiology 05/27/23 Kaushik Mariscal MD [address] [facility] [address] [place] [address] American History Teacher Electrophysiology 11/18/23 documented as of this encounter
--- OUTSIDE RECORDS SUMMARY | 2024-07-27 14:20 | XMS_ITS | Encounter Summary ---
Author Organization [employer] [facility] Init iatives Address [address] [place] [address] Care Team Providers Care Wax Molder Name Role Phone Linh Doty DO Primary Care Provider [phone] Lizzei Alves PA-C Unavailable [phone] Kaushik Mariscal MD Unavailable Encounter Details Date Type Department Care Team (Late st Contact Info) Description 07/18/2021 Transcribed Document [facility] [place] [address] [place] [address] ProviderChad MD [address] [place] [address] Social History Tobacco Use Types Packs/Day Years Used Date Smoking Tobacco: Never Assessed Comments Unknown Sex and Gender Information Value Date Recorded Sex Assigned at Not on file Legal Sex Female 3:27 PM CDT Gender Identity Not on file Sexual Orientation Not on file documented as of this encounter Miscellaneous Notes * Cerner Conversion Note - Chad Merchant MD - 07/18/2021 7:04 AM CDT Patient: GAGAN MENDOZA Age: 55 years Sex: Female : 1965 Associated Diagnoses: None Author: YO GASTELUM, [facility] 55 y/o F with draining hematoma from AICD generator change 07/01/21 PMH CAD, ischemic cardiomyopathy, HF, LV apical thrombus- on apixaban (held with hematoma) AICD 2011 Consult: Vancomycin changed to Daptomycin Consulting MD: Melissa Indication: AICD hematoma Goal: vancomycin trough - D/C'd ID: Arlette Yap. wt = 62kg I/O = 1150 / 600 + 2 voids NKDA ABX: zosyn 07/16-07/18 Vancomycin 07/16-07/18 Daptomycin / Ceftriaxone (start 07/18) Labs (Last four charted values) WBC 9.6 (JUL 09) 8.4 (JUL 08) 7.4 (JUL 07) HB H 16.2 (JUL 09) H 16.9 (JUL 08) H 17.9 (JUL 07) HCT H 52.1 (JUL 09) H 53.4 (JUL 08) H 56.1 (JUL 07) Plt L 106 (JUL 09) L 132 (JUL 08) L 140 (JUL 07) Na L 135 (JUL 09) 138 (JUL 08) 138 (JUL 07) K 3.6 (JUL 09) 3.8 (JUL 08) 4.1 (JUL 07) Cl 103 (JUL 09) 107 (JUL 08) 105 (JUL 07) CO2 H 34 (JUL 09) 32 (MADELEINE 08) 28 (JUL 07) BUN 13 (JUL 09) 10 (JUL 08) 10 (JUL 07) Cr 0.90 (MADELEINE 09) 0.80 (MADELEINE 08) 0.80 (JUL 07) Glu R 99 (JUL 09) 93 (JUL 08) 97 (JUL 07) Ca 10.0 (MADELEINE 09) 10.1 (MADELEINE 08) H 10.7 (JUL 07) Lactic 1.0 (JUL 07) Calc CrCl = 66 ml / min Vitals Signs (last 24 hrs) Last Charted Minimum Maximum Temp 98.8 (JUL 18 02:15) 98.0 (JUL 17 09:00) 98.0 (JUL 17 09:00) Mon HR 79 (JUL 18 01:30) 74 (JUL 17 10:00) 96 (JUL 17 13:30) Resp Rate 18 (JUL 17 19:13) 14 (JUL 17 10:00) H 38 (JUL 17 08:07) SBP 102 (JUL 18 01:30) 96 (JUL 17 12:30) H 148 (JUL 17 08:07) DBP 60 (JUL 18 01:30) L 55 (JUL 17 10:00) 74 (JUL 17 09:00) MAP 72 (JUL 18 01:30) 72 (JUL 18 01:30) 105 (JUL 17 08:07) SpO2 96 (JUL 18 01:00) L 88 (JUL 17 15:30) 96 (JUL 17 08:07) Cultures: 07/16: Blood NGTD 07/17: Wound NGTD (G/S - No cells / organisms) Vancomycin levels: 07/18 trough @ 1300: ordered A/P: 1. Vancomycin changed to Daptomycin by ID (Fracisco) 2. Vancomycin level 07/18 cancelled 3. Plan to convert to Daptomycin / Rocephin for 2-4 weeks of opt IV Atb upon discharge per ID -CK = 56 WNL 4. Pharmacy to sign off Thank you for this consult. Yo Gastelum [facility] beeper [phone] Electronically signed by [facility], [facility] Conversion Endband Sizer Cerner at 05/27/2022 9:00 PM CDT documented in this encounter Plan of Treatment Not on file documented as of this encounter Visit Diagnoses Not on filedocumented in this encounter Care Teams Wax Molder Relationship Specialty Start Date End Date Linh Doty, DO [address] [facility] [address] [place] [address] PCP - General Family Medicine 11/04/22 Lizzie Alves PA-C [address] [facility], [facility] [address] [place] [address] Hospitalist Cardiology 05/27/23 Kaushik Mariscal MD [address] [facility] [address] [place], [place] [id number] Bookie Electrophysiology 11/18/23 documented as of this encounter
--- OUTSIDE RECORDS SUMMARY | 2024-07-27 14:20 | XMS_ITS | Encounter Summary ---
Author Organization [employer] [facility] Init iatives Address [address] [place] [address] Care Team Providers Care Client Service Representative Name Role Phone Linh Doty DO Primary Care Provider [phone] Lizzie Alves PA-C Unavailable [phone] Kaushik Mariscal MD Unavailable Encounter Details Date Type Department Care Team (Late st Contact Info) Description 08/26/2021 Transcribed Document [facility] [place] Family Medicine [address] [place] [address] ProviderChad MD [address] [place] [address] Social History Tobacco Use Types Packs/Day Years Used Date Smoking Tobacco: Never Assessed Comments Unknown Sex and Gender Information Value Date Recorded Sex Assigned at Not on file Legal Sex Female 3:27 PM CDT Gender Identity Not on file Sexual Orientation Not on file documented as of this encounter Miscellaneous Notes * Cerner Conversion Note - Chad Merchant MD - 08/26/2021 3:19 PM CDT Meds to Bed Enrollment Entered On: 08/27/2021 10:26 EDT Performed On: 08/26/2021 15:19 EDT by Samuel Anders Hand Rounder Cert Lead Meds to Bed Enrollment Patient Enrollment Decision: : Yes/enroll in meds to bed program Samuel Anders Hand Rounder Cert Lead - 08/27/2021 10:26 EDT documented in this encounter Plan of Treatment Not on file documented as of this encounter Visit Diagnoses Not on filedocumented in this encounter Care Teams Client Service Representative Relationship Specialty Start Date End Date Linh Doyt, [address] [facility] [address] [place] [address] PCP - General Family Medicine 11/04/22 Lizzie Alves PA-C [address] [place] [address], [facility] [address] [place] [address] Hospitalist Cardiology 05/27/23 Kaushik Mariscal MD [address] [facility] [address] [place] [address] Art Department Head Electrophysiology 11/18/23 documented as of this encounter
--- OUTSIDE RECORDS SUMMARY | 2024-07-27 14:20 | XMS_ITS | Encounter Summary ---
Author Organization [employer] [facility] Init iatives Address [address] [place] [address] Care Team Providers Care Staff Technologist Name Role Phone Linh Doty DO Primary Care Provider [phone] Lizzie Alves PA-C Unavailable [phone] Kaushik Mariscal MD Unavailable Encounter Details Date Type Department Care Team (Late st Contact Info) Description 08/27/2021 Transcribed Document [facility] [place] [address] [place] [address] ProviderChad MD [address] [place] [address] Social History Tobacco Use Types Packs/Day Years Used Date Smoking Tobacco: Never Assessed Comments Unknown Sex and Gender Information Value Date Recorded Sex Assigned at Not on file Legal Sex Female 3:27 PM CDT Gender Identity Not on file Sexual Orientation Not on file documented as of this encounter Miscellaneous Notes * Cerner Conversion Note - Chad Merchant MD - 08/27/2021 1:06 PM CDT Nursing Discharge Summary Entered On: 08/27/2021 13:06 EDT Performed On: 08/27/2021 13:06 EDT by Jacquelyn Moya RN-PATIENT CARE BEDSIDE NON-EXEMPT 2 Discharge Documentation Discharge Date/Time : 08/27/2021 13:06 EDT Patient Disposition, General : Discharge Discharge To : Home without planned follow-up Jacquelyn Moya RN-PATIENT CARE BEDSIDE NON-EXEMPT 2 - 08/27/2021 13:06 EDT documented in this encounter Plan of Treatment Not on file documented as of this encounter Visit Diagnoses Not on filedocumented in this encounter Care Teams Staff Technologist Relationship Specialty Start Date End Date Linh Doty, DO 8 [facility] [address] [place] [address] PCP - General Family Medicine 11/04/22 Lizzie Alves PA-C 1401 [facility], [facility] [address] [place] [address] Hospitalist Cardiology 05/27/23 Kaushik Mariscal MD 14[address] [facility] [address] [place] [address] Electronics Repair Technician Electrophysiology 11/18/23 documented as of this encounter
--- OUTSIDE RECORDS SUMMARY | 2024-07-27 14:20 | XMS_ITS | Encounter Summary ---
Author Organization [facility] Init iatives Address [address] [place] [address] Care Team Providers Care General Distillery Worker Name Role Phone Linh Doty DO Primary Care Provider [phone] Lizzie Alves PA-C Unavailable [phone] Kaushik Mariscal MD Unavailable Encounter Details Date Type Department Care Team (Late st Contact Info) Description 07/16/2021 Transcribed Document [facility] Radiology [address] [id number] Yanick Torres MD [address] [place] [address] [address] [place] [address] Social History Tobacco Use Types Packs/Day Years Used Date Smoking Tobacco: Never Assessed Comments Unknown Sex and Gender Information Value Date Recorded Sex Assigned at Not on file Legal Sex Female 3:27 PM CDT Gender Identity Not on file Sexual Orientation Not on file documented as of this encounter Miscellaneous Notes * Cerner Conversion Note - Yanick Torres MD - 07/16/2021 3:21 PM EDT Patient: GAGAN MENDOZA Age: 55 years Sex: Female : 1965 Associated Diagnoses: None Author: YANICK TORRES MD-INT Subjective Primary care physician Beryl Doty Date of admission 07/16/2021 Date of discharge Chief complaint AICD site hematoma History of present illness Ms. Mendoza returned to ED on 07/16/2021 for IV antibiotics and AICD hematoma she underwent AICD generator change on 07/01/2021 pt report that she took a nap and when she woke up for sharp around her implant site was saturated in blood, so we instructed her to come to cardiology clinic to be evaluated. Incision site was inspected and showed that she was draining hematoma from her pocket. Incision site was cleaned with chlorhexidine, old Dermabond was removed from incision site and a pressure dressing was applied t o the site. It was decided the patient would be sent to the ER to be admitted for IV antibiotics. Patient seen by cardiology in the ED Our service was asked to admit. Antibiotics recommended by cardiology service . Patient had labs drawn in the ED which identified no worrisome findings Review of Systems Constitutional: Negative Eye: Negative. Ear/Nose/Mouth/Throat: Negative. Respiratory: She has chronic dry cough and wheezing related to underlying COPD and ongoing tobacco abuse . Cardiovascular: Negative. Gastrointestinal: Nausea. Genitourinary: Negative. Endocrine: Negative. Musculoskeletal: Negative. Integumentary: Negative Neurologic: Negative. All other systems are negative Past medical history ischemic cardiomyopathy status post AICD back in 2011 recent generator change on 07/01, history of ventricular tachycardia history of left ventricular thrombus, history of coronary artery disease with prior stent, essential hypertension, hyperlipidemia, peripheral arterial disease, and COPD Social history unfortunately continues to smoke cigarettes no alcohol or drug abuse Family history strongly positive for breast cancer Home medications reviewed and reconciled Health Status Allergies: Allergic Reactions (Selected) No Known Allergies, No qualifying data available Current medications: (Selected) Inpatient Medications Ordered Colace: 100 mg, Oral, BID, PRN: Constipation Florastor: 250 mg, Oral, BID MiraLax: 17 Gram, Oral, Daily, PRN: Constipation Roxicodone: 5 mg, Oral, Q4H, PRN: Pain (Moderate 4-6) Tylenol: 650 mg, Oral, Q4H, PRN: Pain (Mild 1-3) Zofran: 4 mg, IV Push, Q4H, PRN: Nausea Zosyn + Sodium Chloride 0.9% intravenous solution 100 mL: 3.375 Gram, 33.33 mL/Hr, IV Piggyback, Q6HInt carvedilol: 12.5 mg, Oral, BID ergocalciferol: 50,000 Int Units, Oral, Weekly folic acid: 1 mg, Oral, Daily furosemide: 20 mg, Oral, At Bedtime gabapentin: 600 mg, Oral, At Bedtime hydrALAZINE: 5 mg, IV Push, Q4H, PRN: Hypertension lisinopril: 20 mg, Oral, At Bedtime morphine: 2 mg, IV Push, Q2H, PRN: Pain (Severe 7-10) pantoprazole: 40 mg, Oral, Daily potassium chloride extended release: 10 mEq, Oral, Daily rosuvastatin: 10 mg, Oral, At Bedtime Incomplete topiramate 25 mg oral capsule, extended release: 25 mg, 1 Cap, Oral, At Bedtime Documented Medications Documented Plavix 75 mg oral [...] 50 mcg inhalation powder: 1 Puff, Inhalation, [id number], rinse mouth and throat after use, 30 [...] 1 Cap, Oral, At Bedtime, 0 Refill(s), Home Medications (13) Active acetaminophen-HYDROcodone 325 mg-5 mg oral tablet carvedilol 12.5 mg oral tablet 12.5 mg = 1 Tab, Oral, BID fluticasone furoate 50 mcg inhalation powder 1 Puff, Inhalation, [id number] folic acid 1 mg oral tablet 1 [...] = 1 Cap, Oral, Weekly , Medications (18) Active Scheduled: (11) carvedilol 12.5 mg tab 12.5 mg 1 Tab, Oral, BID ergocalciferol 50,000 Int Units, Oral, Weekly folic acid 1 mg tab 1 mg 1 Tab, Oral, Daily furosemide 20 mg tab 20 mg 1 Tab, Oral, At Bedtime gabapentin 600 mg tab 600 mg 1 Tab, Oral, At Bedtime lisinopril 20 mg tab 20 mg 1 Tab, Oral, At Bedtime pantoprazole EC 40 mg tab 40 mg 1 Tab, Oral, Daily piperacillin-tazobactam + NaCl 0.9% 100 mL 3.375 Gram, IV Piggyback, Q6HInt potassium chloride 10 mEq, Oral, Daily rosuvastatin 10 mg tab 10 mg 1 Tab, Oral, At Bedtime saccharomyces boulardii 250 mg cap 250 mg 1 Cap, Oral, BID Continuous: (0) PRN: (7) acetaminophen 325 mg [...] Gram 1 Packet, Oral, Daily Problem list: Medical At risk for sleep apnea / IMO [id number] / Confirmed High cholesterol / SNOMED CT 58381280 / Confirmed, Active Problems (12) Arteriosclerosis At risk for sleep apnea Cardiomyopathy Chronic CHF Current smoker Gout High cholesterol History of [place] (myocardial infarction) Intermittent claudication Pacemaker PAD (peripheral artery disease) Stented coronary artery Objective VS/Measurements Vitals Signs (last 24 hrs) Last Charted Minimum Maximum Temp 98.0 (JUL 16 12:) 98.0 (JUL 16:) 98.0 (JUL 16:) Periph HR 78 (JUL 16:) 78 (JUL 16:) 78 (JUL 16:) Resp Rate 20 (JUL 16 12:) 20 (JUL 16 12:) 20 (JUL 16:) SBP H 152 (JUL 16:) H 152 (JUL 16:) H 152 (JUL 16:) DBP 84 (JUL 16 12:) 84 (JUL 16 12:) 84 (JUL 16:) SpO2 L 90 (JUL 16:) L 90 (JUL 16:) L 90 (JUL 16:) General: No acute distress. Eye: Normal conjunctiva. Neck: No jugular venous distention. Respiratory: Lungs are clear to auscultation, Respirations are non-labored, Breath sounds are equal. Cardiovascular: Regular rhythm, No gallop, S1+ S2 No S3 or S4 [place].. Gastrointestinal: Soft, Non-tender, Non-distended, Normal bowel sounds. Genitourinary: No costovertebral angle tenderness. Integumentary: Warm, No rash, She has thick dressing in place left upper chest over AICD site distally left arm she has intact neurovascular status with easily palpable radial pulse. Neurologic: Alert, Oriented, No focal deficits. Psychiatric: Cooperative, Appropriate mood & affect. Results Review JUL 16 12:40 138 105 10 / 97 4.1 28 0.80 \ JUL 16 12:40 \ H 17.9 / 7.4 L 140 / H 56.1 \ Impression and Plan Diagnosis -Status post AICD generator change 07/01/2021 now with complicating site hematoma evolving infection -History of coronary artery disease with prior stent -Known COPD with ongoing tobacco abuse -Essential hypertension and dyslipidemia -History of ischemic cardiomyopathy prior AICD implantation -History of left ventricular thrombus -History of peripheral arterial disease Plan: Patient is being admitted at this time I will obtain blood cultures I will empirically add antibiotic coverage Patient will receive continue cardiac monitoring I am holding Plavix for now Cardiology service already on board in the ED Emphasized tobacco cessation Added nicotine patch Complex medical problems high risk for poor outcome plan was discussed with the patient documented in this encounter Plan of Treatment Not on file documented as of this encounter Visit Diagnoses Not on filedocumented in this encounter Care Teams General Distillery Worker Relationship Specialty Start Date End Date Linh Doty, [address] [facility] [address] [place] [address] PCP - General Family Medicine 11/04/22 Lizzie Alves PA-C [address] [facility], [facility] [address] [place] [address] Hospitalist Cardiology 05/27/23 Kaushik Mariscal MD [address] [facility] [address] [place] [address] Tree Cutter Electrophysiology 11/18/23 documented as of this encounter
--- OUTSIDE RECORDS SUMMARY | 2024-07-27 14:20 | XMS_ITS | Encounter Summary ---
Author Organization [employer] [facility] Init iatives Address [address] [place] [address] Care Team Providers Care Cloth Checker Name Role Phone Linh Doty DO Primary Care Provider [phone] Lizzie Alves PA-C Unavailable [phone] Kaushik Mariscal MD Unavailable Encounter Details Date Type Department Care Team (Late st Contact Info) Description 08/09/2021 Transcribed Document [facility] [place] [address] ProviderChad MD [address] [place] [address] Social History Tobacco Use Types Packs/Day Years Used Date Smoking Tobacco: Never Assessed Comments Unknown Sex and Gender Information Value Date Recorded Sex Assigned at Not on file Legal Sex Female 3:27 PM CDT Gender Identity Not on file Sexual Orientation Not on file documented as of this encounter Miscellaneous Notes * Cerner Conversion Note - Chad ProviderMD - 08/09/2021 2:46 PM CDT UM Authorization Entered On: 08/09/2021 14:50 EDT Performed On: 08/09/2021 14:46 EDT by ERNIE CAMARA, Marble And Granite Polisher Primary Insurance Authorization Authorization and Policy Numbers : Insurance 1 Health Plan: [employer] MANAGED MEDICARE Policy Number: [id number] Authorization Number: Insurance Primary Name : [facility] MEDICARE Policy Number: [id number] Authorization Status-Primary : Admit approved Auth/Referral Contact Name-Primary : [place] Reference Number-Primary : [id number] Authorization Number-Primary : [id number] Number of Days Authorized-Primary : 5 Day(s) Authorized Service Begin Date-Primary : 07/16/2021 EDT Authorized Service End Date-Primary : 07/21/2021 EDT Authorization Comments-Primary : Still pending per website Historical Authorization Comments-Primary : Comment 1: Remains pending per portal (WALDO PIÑA RN 08/06/2021 13:43) Comment 2: Per website - Under review. (Bonita Katz, Glove Sewer 07/31/2021 08:56) Comment 3: Discharge summary as well as continued stay clinical 07/23 - discharge faxed. (Bonita Katz, Glove Sewer 07/29/2021 15:50) Comment 4: 07/20-07/22 CLINICALS FAXED VIA [employer] (Yessi Alaniz RN 07/22/2021 16:49) Comment 5: PER PORTAL IP APPROVED FOR 07/16 UP TO BUT NOT INCLUDING 07/22 (Khushi Jones, Rn-Utilization Review 07/19/2021 13:56) Comment 6: UNDER REVIEW PER PORTAL (Khushi Jones, Rn-Utilization Review 07/19/2021 09:22) Comment 7: CLINICAL FAXED VIA [employer] (Khushi Jones Rn-Utilization Review 07/17/2021 15:22) Comment 8: REF# PER GUME. CLINICAL FAXED VIA [employer] (Khushi Jones Rn-Utilization Review 07/17/2021 15:17) ERNIE CAMARA, Marble And Granite Polisher - 08/09/2021 14:46 EDT Electronically signed by Rekha [facility] Conversion Residential Lawn Specialist Cerner at 05/27/2022 9:18 PM CDT documented in this encounter Plan of Treatment Not on file documented as of this encounter Visit Diagnoses Not on filedocumented in this encounter Care Teams Cloth Checker Relationship Specialty Start Date End Date Linh Doty, DO [address] [facility] [address] [place] [address] PCP - General Family Medicine 11/04/22 Lizzie Alves PA-C [address] [place] [address] Rd, [facility] [address] [place] [address] Hospitalist Cardiology 05/27/23 Kaushik Mariscal MD [address] [facility] [address] [place] [address] Information Clerk Automobile Club Electrophysiology 11/18/23 documented as of this encounter
--- OUTSIDE RECORDS SUMMARY | 2024-07-27 14:20 | XMS_ITS | Encounter Summary ---
Author Organization [employer] [facility] Init iatives Address [address] [place] [address] Care Team Providers Care Sluice Tender Name Role Phone Linh Doty DO Primary Care Provider [phone] Lizzie Alves PA-C Unavailable [phone] Kaushik Mariscal MD Unavailable Encounter Details Date Type Department Care Team (Late st Contact Info) Description 08/13/2021 Transcribed Document [facility] [place] [address] ProviderChad MD [address] [place] [address] Social History Tobacco Use Types Packs/Day Years Used Date Smoking Tobacco: Never Assessed Comments Unknown Sex and Gender Information Value Date Recorded Sex Assigned at Not on file Legal Sex Female 3:27 PM CDT Gender Identity Not on file Sexual Orientation Not on file documented as of this encounter Miscellaneous Notes * Cerner Conversion Note - Chad ProviderMD - 08/13/2021 1:45 PM CDT UM Authorization Entered On: 08/13/2021 13:46 EDT Performed On: 08/13/2021 13:45 EDT by Bonita Katz, Porcelain Enamel Installer Primary Insurance Authorization Authorization and Policy Numbers : Insurance 1 Health Plan: [employer] MANAGED MEDICARE Policy Number: [id number] Authorization Number: Insurance Primary [facility] : [facility] Policy Number: [id number] Authorization Status-Primary : Approved Auth/Referral Contact Name-Primary : [place] Reference Number-Primary : [id number] Authorization Number-Primary : [id number] Number of Days Authorized-Primary : 10 Day(s) Authorized Service Begin Date-Primary : 07/16/2021 EDT Authorized Service End Date-Primary : 07/26/2021 EDT Authorization Comments-Primary : Authorized per fax 08/13/21 @ 1140. Approved inpatient stay x11 days. Historical Authorization Comments-Primary : Comment 1: Still pending per website (ERNIE CAMARA, Vacuum Furnace Operator 08/09/2021 14:46) Comment 2: Remains pending per portal (WALDO PIÑA RN 08/06/2021 13:43) Comment 3: Per website - Under review. (Bonita Katz, Porcelain Enamel Installer 07/31/2021 08:56) Comment 4: Discharge summary as well as continued stay clinical 07/23 - discharge faxed. (Bonita Katz, Porcelain Enamel Installer 07/29/2021 15:50) Comment 5: 07/20-07/22 CLINICALS FAXED VIA [employer] (Yessi Alaniz RN 07/22/2021 16:49) Comment 6: PER PORTAL IP APPROVED FOR 07/16 UP TO BUT NOT INCLUDING 07/22 (Khushi Jones, Rn-Utilization Review 07/19/2021 13:56) Comment 7: UNDER REVIEW PER PORTAL (Khushi Jones Rn-Utilization Review 07/19/2021 09:22) Comment 8: CLINICAL FAXED VIA [employer] (Khushi Jones Rn-Utilization Review 07/17/2021 15:22) Comment 9: REF# PER GUME. CLINICAL FAXED VIA [employer] (Khushi Jones, Rn-Utilization Review 07/17/2021 15:17) Bonita Katz, Porcelain Enamel Installer - 08/13/2021 13:45 EDT documented in this encounter Plan of Treatment Not on file documented as of this encounter Visit Diagnoses Not on filedocumented in this encounter Care Teams Sluice Tender Relationship Specialty Start Date End Date Linh Doty, DO [address] [place] [address] PCP - General Family Medicine 11/04/22 Lizzie Alves PA-C [address] [place] [address], [facility] [address] [place] [address] Hospitalist Cardiology 05/27/23 Kaushik Mariscal MD [address] [facility] [address] [place] [address] Transformer Mechanic Electrophysiology 11/18/23 documented as of this encounter
--- OUTSIDE RECORDS SUMMARY | 2024-07-27 14:20 | XMS_ITS | Encounter Summary ---
Author Organization [employer] [address] [employer] [facility] Init iatives Address [address] [place] [address] Care Team Providers Care Switching Clerk Name Role Phone Linh Doty DO Primary Care Provider Lizzie Alves PA-C Unavailable [phone] Kaushik Mariscal MD Unavailable Encounter Details Date Type Department Care Team (Late st Contact Info) Description 08/27/2021 Transcribed Document [facility] [place] [facility] [place] [address] ProviderChad MD [address] [place] [address] Social History Tobacco Use Types Packs/Day Years Used Date Smoking Tobacco: Never Assessed Comments Unknown Sex and Gender Information Value Date Recorded Sex Assigned at Not on file Legal Sex Female 3:27 PM CDT Gender Identity Not on file Sexual Orientation Not on file documented as of this encounter Miscellaneous Notes * Cerner Conversion Note - Chad Merchant MD - 08/27/2021 11:52 AM CDT UM Authorization Entered On: 08/27/2021 11:52 EDT Performed On: 08/27/2021 11:52 EDT by EZEKIEL PHILLIPS RN Primary Insurance Authorization Authorization and Policy Numbers : Insurance 1 Health Plan: [id number] MEDICARE Policy Number: [id number] Authorization Number: [id number] Insurance Primary Name : [employer] MANAGED MEDICARE Policy Number: [id number] Authorization Number-Primary : [id number] Authorized Service Begin Date-Primary : 08/26/2021 EDT Historical Authorization Comments-Primary : No Authorization Comments Found EZEKIEL PHILLIPS, SARAH - 08/27/2021 11:52 EDT documented in this encounter Plan of Treatment Not on file documented as of this encounter Visit Diagnoses Not on filedocumented in this encounter Care Teams Switching Clerk Relationship Specialty Start Date End Date Linh Doty, [address] [facility] [address] [place] [address] PCP - General Family Medicine 11/04/22 Lizzie Alves PA-C [address] [place] [address], [facility] [address] [place] [address] Hospitalist Cardiology 05/27/23 Kaushik Mariscal MD [address] [facility] [address] [place] [address] Animal Care Taker Electrophysiology 11/18/23 documented as of this encounter
--- OUTSIDE RECORDS SUMMARY | 2024-07-27 14:20 | XMS_ITS | Encounter Summary ---
Author Organization [employer] [facility] Init iatives Address [address] [place] [address] Care Team Providers Care Cuff Matcher Name Role Phone Linh Doty DO Primary Care Provider [phone] Lizzie Alves PA-C Unavailable [phone] Kaushik Mariscal MD Unavailable Encounter Details Date Type Department Care Team (Late st Contact Info) Description 08/06/2021 Transcribed Document [facility] [place] [address] ProviderChad MD [address] [place] [address] Social History Tobacco Use Types Packs/Day Years Used Date Smoking Tobacco: Never Assessed Comments Unknown Sex and Gender Information Value Date Recorded Sex Assigned at Not on file Legal Sex Female 3:27 PM CDT Gender Identity Not on file Sexual Orientation Not on file documented as of this encounter Miscellaneous Notes * Cerner Conversion Note - Chad Merchant MD - 08/06/2021 1:43 PM CDT UM Authorization Entered On: 08/06/2021 13:43 EDT Performed On: 08/06/2021 13:43 EDT by WALDO PIÑA RN Primary Insurance Authorization Authorization and Policy Numbers : Insurance 1 Health Plan: [employer] MEDICARE Policy Number: [id number] Authorization Number: Insurance Primary Name : [facility] MEDIC[facility] Policy Number: [id number] Authorization Status-Primary : Admit approved Auth/Referral Contact Name-Primary : [place] Reference Number-Primary : [id number] Authorization Number-Primary : [id number] Number of Days Authorized-Primary : 5 Day(s) Authorized Service Begin Date-Primary : 07/16/2021 EDT Authorized Service End Date-Primary : 07/21/2021 EDT Authorization Comments-Primary : Remains pending per portal Historical Authorization Comments-Primary : Comment 1: Per website - Under review. (Bonita Katz, Audio Video Technician 07/31/2021 08:56) Comment 2: Discharge summary as well as continued stay clinical 07/23 - discharge faxed. (Bonita Katz, Audio Video Technician 07/29/2021 15:50) Comment 3: 07/20-07/22 CLINICALS FAXED VIA [employer] (Yessi Alaniz, SARAH 07/22/2021 16:49) Comment 4: PER PORTAL IP APPROVED FOR 07/16 UP TO BUT NOT INCLUDING 07/22 (Khushi Jones, Rn-Utilization Review 07/19/2021 13:56) Comment 5: UNDER REVIEW PER PORTAL (Khushi Jones, Rn-Utilization Review 07/19/2021 09:22) Comment 6: CLINICAL FAXED VIA [employer] (Khushi Jones, Rn-Utilization Review 07/17/2021 15:22) Comment 7: REF# PER GUME. CLINICAL FAXED VIA [employer] (Khushi Jones, Rn-Utilization Review 07/17/2021 15:17) WALDO PIÑA RN - 08/06/2021 13:43 EDT Electronically signed by Alberto Da Silva Conversion Community Services Coordinator Cerner at 05/27/2022 9:27 PM CDT documented in this encounter Plan of Treatment Not on file documented as of this encounter Visit Diagnoses Not on filedocumented in this encounter Care Teams Cuff Matcher Relationship Specialty Start Date End Date Linh Doty, DO [address] [place] [address] PCP - General Family Medicine 11/04/22 Lizzie Alves PA-C [address], [facility] [address] [place] [address] Hospitalist Cardiology 05/27/23 Kaushik Mariscal MD [address] [facility] [place] [address] Talent Sourcing Specialist Electrophysiology 11/18/23 documented as of this encounter
--- OUTSIDE RECORDS SUMMARY | 2024-07-27 14:20 | XMS_ITS | Encounter Summary ---
Author Organization [facility] Init iatives Address [address] [place] [address] Care Team Providers Care Film Rental Clerk Name Role Phone Linh Doty DO Primary Care Provider [phone] Lizzie Alves PA-C Unavailable [phone] Kaushik Mariscal MD Unavailable Encounter Details Date Type Department Care Team (Late st Contact Info) Description 07/16/2021 Transcribed Document [facility] [place] Family Medicine [address] [place] [address] ProviderChad MD [address] [place] [address] Social History Tobacco Use Types Packs/Day Years Used Date Smoking Tobacco: Never Assessed Comments Unknown Sex and Gender Information Value Date Recorded Sex Assigned at Not on file Legal Sex Female 3:27 PM CDT Gender Identity Not on file Sexual Orientation Not on file documented as of this encounter Miscellaneous Notes * Cerner Conversion Note - Chad Merchant MD - 07/16/2021 4:33 PM CDT Patient: GAGAN MENDOZA Age: 55 years Sex: Female : 1965 Associated Diagnoses: None Author: HANANE WILSON MD-INF Basic Information CC: ICD infection History of Present Illness 55-year-old female with history of ischemic cardiomyopathy status post AICD placed 2011, recent generator change 07/01/2021, history of ventricular tachycardia, coronary artery disease with stent, essential hypertension, hyperlipidemia, peripheral vascular disease, and COPD, with continued smoking. The patient developed ICD site drainage from hematoma, with previous held Eliquis. Woke up this morning with her site saturated with bloody drainage. Patient was admitted to [facility] on 07/16/2021. Post generator change, patient required regluing of device. Despite these interventions she still had persistence with increased bleeding and drainage on 07/15/2021. I was consulted on 07/16/2021 for further evaluation and treatment. No high fevers or chills. Review of Systems Constitutional: Weakness, No fever, No chills, No sweats. Eye: No recent visual problem, No icterus, No blurring, No visual disturbances. Ear/Nose/Mouth/Throat: No decreased hearing, No sore throat. Respiratory: No shortness of breath, No cough, No sputum production. Cardiovascular: No palpitations, No bradycardia. Gastrointestinal: No nausea, No vomiting, No diarrhea, No abdominal pain. Genitourinary: No dysuria, No hematuria, No change in urine stream. Hematology/Lymphatics: No bruising tendency, No bleeding tendency, No swollen lymph glands. Endocrine: No excessive thirst, No polyuria, No cold intolerance. Immunologic: Not immunocompromised, No recurrent fevers, No recurrent infections. Musculoskeletal: No back pain, No neck pain, No joint pain, No muscle pain, No claudication, No decreased range of motion. Integumentary: Negative except as documented in history of present illness, No rash, No abrasions. Neurologic: No confusion, No headache. Psychiatric: No anxiety, No depression. Health Status Allergies: No qualifying data available Current medications: Medications by Classification Antimicrobials piperacillin-tazobactam + Sodium Chloride 0.9% intravenous s - 3.375 Gram, IV Piggyback, Inj, Q6HInt, infuse over 3 Hour(s), Routine vancomycin + Sodium Chloride 0.9% intravenous solution 250 m - 1,000 mg, IV Piggyback, Inj, [id number], infuse over 1 Hour(s) Cardiovascular carvedilol - 12.5 mg, Oral, Tab, BID, Routine furosemide - 20 mg, Oral, Tab, At Bedtime, Routine lisinopril - 20 mg, Oral, Tab, At Bedtime, Routine rosuvastatin - 10 mg, Oral, Tab, At Bedtime, Routine GI ondansetron (Zofran) - 4 mg, IV Push, Inj, Q4H, PRN for Nausea, Routine pantoprazole - 40 mg, Oral, EC Tab, Daily, Routine docusate (Colace) - 100 mg, Oral, Cap, BID, PRN for Constipation, Routine polyethylene glycol 3350 (MiraLax) - 17 Gram, Oral, Powder, Daily, PRN for Constipation, Routine saccharomyces boulardii lyo (Florastor) - 250 mg, Oral, Cap, BID, Routine Neuro gabapentin - 600 mg, Oral, Tab, At Bedtime, Routine topiramate - 12.5 mg, Oral, Tab, BID Pain Meds morphine - 2 mg, IV Push, Inj, Q2H, PRN for Pain (Severe 7-10), Routine oxyCODONE (Roxicodone) - 5 mg, Oral, Tab, Q4H, PRN for Pain (Moderate 4-6), Routine acetaminophen (Tylenol) - 650 mg, Oral, Tab, Q4H, PRN for Pain (Mild 1-3), Routine Vitamins ergocalciferol - 50,000 Units, Oral, Cap, Weekly, Routine folic acid - 1 mg, Oral, Tab, Daily, Routine potassium chloride (potassium chloride extended release) - 10 mEq, Oral, CR Tab, Daily, Routine Other nicotine (nicotine 21 mg/24 hr transdermal film, extended re - 1 Patch, TransDermal, Patch, Daily, Routine Undefined Medications hydrALAZINE - 5 mg, IV Push, Inj, Q4H, PRN for Hypertension, Routine Problem list: Medical At risk for sleep apnea / IMO 26241217 / Confirmed High cholesterol / SNOMED CT 77549282 / Confirmed Canceled: At risk for sleep apnea / IMO [id number] Canceled: COPD (chronic obstructive pulmonary disease) / SNOMED CT 91428202 Canceled: HTN (hypertension) / SNOMED CT 2901890930, Active Problems (12) Arteriosclerosis At risk for sleep apnea Cardiomyopathy Chronic CHF Current smoker Gout High cholesterol History of NE (myocardial infarction) Intermittent claudication Pacemaker PAD (peripheral artery disease) Stented coronary artery Histories Past Medical History: No active or resolved past medical history items have been selected or recorded. Family History: No family history items have been selected or recorded. Procedure history: ICD implant. heart catheterization- multiple. [...] None Years of Tobacco Use 40 . EXPOSURE HX: VACCINES: Physical Examination VS/Measurements Vitals Signs (last 24 hrs) Last Charted Minimum Maximum Temp 98.0 (JUL 16 12:06) 98.0 (JUL 16 12:06) 98.0 (JUL 16 12:06) Mon HR 80 (JUL 16 16:30) 76 (JUL 16 12:30) 86 (JUL 16 15:57) Periph HR 78 (JUL 16 12:06) 78 (JUL 16 12:06) 78 (JUL 16 12:06) Resp Rate H 23 (JUL 16 16:30) 14 (JUL 16 15:00) H 24 (JUL 16 15:30) SBP H 141 (JUL 16 15:30) H 141 (JUL 16 15:00) H 192 (JUL 16 14:00) DBP H 110 (JUL 16 15:30) 80 (JUL 16 14:30) H 110 (JUL 16 15:00) MAP 128 (JUL 16 15:30) 113 (JUL 16 13:00) 128 (JUL 16 14:30) SpO2 L 88 (JUL 16 16:30) L 85 (JUL 16 13:30) 94 (JUL 16 15:00) General: Alert and oriented, Moderate distress. Eye: Pupils are equal, round and reactive to light, Extraocular movements are intact, Normal conjunctiva. HENT: Normocephalic, Oral mucosa is moist, No pharyngeal erythema, Ears externally normal, nose externally normal. Neck: Supple, Non-tender, No jugular venous distention, No lymphadenopathy. Respiratory: Respirations are non-labored, Breath sounds are equal, Few crackles left base. Cardiovascular: Normal rate, No gallop, Normal peripheral perfusion. Gastrointestinal: Soft, Non-tender, Non-distended, Normal bowel sounds, No organomegaly. Genitourinary: No genital lesions, back straight, no CVA tenderness, breasts symmetric, rectal per history of present illness. Lymphatics: No lymphadenopathy neck, axilla, groin. Musculoskeletal: Normal range of motion, Normal strength, No tenderness. Integumentary: Warm, Dry, [place]. Neurologic: Alert, Oriented, Normal sensory, Normal motor function, No focal deficits, Cranial Nerves II-XII are grossly intact, Normal deep tendon reflexes. Cognition and Speech: Oriented, Speech clear and coherent. Psychiatric: Cooperative, Appropriate mood & affect. Review / Management Results review: Labs (Last four charted values) [...] (JUL 16) ALB 3.5 (JUL 16) . Radiology results Radiology Results (Last 48 hours) [id number] -- 07/16/2021 14:13 CR Chest 1 Vw Portable (07/16/2021 13:03) [...] agree with the above final transcribed report. Diagnostic Findings: ACC: ORDER: DATE: SOURCE: SITE: Reports == . Impression and Plan 1. ICD site drainage with greatly increased risk for infection of underlying prosthetic device which was placed on 07/01/2021. Continues to drain with a hematoma formed because of anticoagulation although Eliquis previously held. Usual organisms would be skin magaly including staphylococcal species. Initial placement of device in 2011. Previous history of V. tach. 2. Ischemic cardiomyopathy. 3. COPD with ongoing smoking. 4. Hypercalcemia. 5. Polycythemia probably related to underlying COPD. REC: 1. Diagnostically, continue to follow patient's physical exam, CBC, CMP, CRP, culture from ICD site, blood cultures x2. 2. Therapeutically, started on vancomycin and piperacillin tazobactam. Likely to be changed eventually to daptomycin and ceftriaxone for outpatient IV antibiotics to continue for 2 to 4 weeks. 3. Continue local wound care. Critical that the device site is adequately healed. If continues to drain, at risk for loss of device. Thank you for consultation. I will follow. Plan has been discussed with patient including side effects of medications and line. At increased risk for side effects of abx and line, readmission, need for explant of device. D/w Isis Katz RN, cardiology. Electronically signed by Rekha [facility] Conversion Ground Hand Cerner at 05/27/2022 9:19 PM CDT documented in this encounter Plan of Treatment Not on file documented as of this encounter Visit Diagnoses Not on filedocumented in this encounter Care Teams Film Rental Clerk Relationship Specialty Start Date End Date Linh Doty, DO [address] [place] [address] PCP - General Family Medicine 11/04/22 Lizzie Alves PA-C [address] [place] [address] Hospitalist Cardiology 05/27/23 Kaushik Mariscal MD [address] [facility] [address] Guest Service Team Leader Electrophysiology 11/18/23 documented as of this encounter
--- OUTSIDE RECORDS SUMMARY | 2024-07-27 14:21 | XMS_ITS | Encounter Summary ---
Author Organization [facility] Init iatives Address [address] [place] [address] Care Team Providers Care Control Supervisor Name Role Phone Linh Doty DO Primary Care Provider [phone] Lizzie Alves PA-C Unavailable [phone] Kaushik Mariscal MD Unavailable Encounter Details Date Type Department Care Team (Late st Contact Info) Description 07/17/2021 Transcribed Document [facility] [place] [facility] [place] [address] ProviderChad MD [address] [place] [address] Social History Tobacco Use Types Packs/Day Years Used Date Smoking Tobacco: Never Assessed Comments Unknown Sex and Gender Information Value Date Recorded Sex Assigned at Not on file Legal Sex Female 3:27 PM CDT Gender Identity Not on file Sexual Orientation Not on file documented as of this encounter Miscellaneous Notes * Cerner Conversion Note - Chad ProviderMD - 07/17/2021 12:36 PM CDT Initial Discharge Planning Entered On: 07/17/2021 12:41 EDT Performed On: 07/17/2021 12:36 EDT by AMAURY HURT TISSUE COORDINATOR NON-EXEMPT Initial Assessment I Previously Documented Living Environment : No qualifying data available. Living Situation : Home Patient Lives With : Significant other(s) Is the Patient a Caregiver at Home? : No Employment/Vocation : Pt is disabled Emergency Contact #1 : Alexx Lewis Emergency Contact #1 Emergency Contact #1 Relationship : Life Partner Number of People in Class : 1 Identified Medical Decision Maker Class : Self 2nd Ident. Medical Decision Maker : Alexx Lewis 2nd Ident. Medical Decision Maker Secondary Number of People in Class : 1 2nd Ident. Medical Decision Maker Class : Life Partner/ HCS Enter Doctors Name : Linh Doty, DO Does Patient have PCP Listed? : Yes Medical Durable Power of Improvement Analyst Name : no Legal Guardian : No AMAURY HURT TISSUE COORDINATOR NON-EXEMPT - 07/17/2021 12:36 EDT Initial Assessment II Sensory and Motor Deficits : None Current Home Treatments and Equipment : Bedside commode, Cane, Shower chair, Walker AMAURY HURT TISSUE COORDINATOR NON-EXEMPT - 07/17/2021 12:36 EDT Discharge Needs I Anticipated Discharge Date : 07/19/2021 EDT Anticipated Discharge To, CM : Home with family care, Home with home health Current Home Treatment/Equipment : Current Home Treatment/Equipment No qualifying data available. Post Acute/Home Treatments : IV therapy Documentation Status Complete : Yes AMAURY HURT SOCIAL WORKER NON-EXEMPT - 07/17/2021 12:36 EDT Discharge Needs II Professional Skilled Services : Professional Skilled Services No qualifying data available. Needs Assistance with Transportation : No Discharge Options Discussed with Patient : Acute rehabilitation, Discharge transportation, DME, Home Health, Outpatient services Patient Discharge Goal : Home AMAURY HURT SOCIAL WORKER NON-EXEMPT - 07/17/2021 12:36 EDT Narrative Note Narrative Note : HD# 1 ELOS: 3 RAR: Low Pt admit for Pacemaker Pocket Bleeding Pt on 4L O2 NC, IV Vancomycin and Zosyn, ID consulted, PT/OT ordered, per ID, Pt will need 2-4 IV antibiotics outpatient Hx: Pt lives at home with her life partner, Alexx Lewis [phone]. Pt PLOF independent. Pt has a cane, walker, bedside commode, and shower chair. Pt has no home O2. Pt has no history of home health or SNF. Pt's significant other provides transportation and can transport at ri. Pt has no concerns related to safety getting in and out of the vehicle. DCP: Home w/ family care AMAURY HURT TISSUE COORDINATOR NON-EXEMPT - 07/17/2021 12:36 EDT documented in this encounter Plan of Treatment Not on file documented as of this encounter Visit Diagnoses Not on filedocumented in this encounter Care Teams Control Supervisor Relationship Specialty Start Date End Date Linh Doty, DO [address] [facility] [address] [place] [address] PCP - General Family Medicine 11/04/22 Lizzie Alves PA-C [address] [place] [address], [facility] [address] [place] [address] Hospitalist Cardiology 05/27/23 Kaushik Mariscal MD [address] [facility] [address] [place] [address] Tube Carrier Electrophysiology 11/18/23 documented as of this encounter
--- OUTSIDE RECORDS SUMMARY | 2024-07-27 14:21 | XMS_ITS | Encounter Summary ---
Author Organization [employer] [facility] Init iatives Address [address] [place] [address] Care Team Providers Care Informatics Nurse Name Role Phone Linh Doty DO Primary Care Provider [phone] Lizzie Alves PA-C Unavailable [phone] aKushik Mariscal MD Unavailable Encounter Details Date Type Department Care Team (Late st Contact Info) Description 07/17/2021 Transcribed Document [facility] [place] [address] [place] [address] ProviderChad MD [address] [place] [address] Social History Tobacco Use Types Packs/Day Years Used Date Smoking Tobacco: Never Assessed Comments Unknown Sex and Gender Information Value Date Recorded Sex Assigned at Not on file Legal Sex Female 3:27 PM CDT Gender Identity Not on file Sexual Orientation Not on file documented as of this encounter Miscellaneous Notes * Cerner Conversion Note - Chad ProviderMD - 07/17/2021 2:49 PM CDT UM Authorization Entered On: 07/17/2021 14:49 EDT Performed On: 07/17/2021 14:49 EDT by EZEKIEL PHILLIPS RN Primary Insurance Authorization Authorization and Policy Numbers : Insurance 1 Health Plan: [employer]ED MEDICARE Policy Number: [id number] Authorization Number: Insurance Primary Name : [employer]ED MEDICARE Policy Number: [id number] Authorized Service Begin Date-Primary : 07/18/2021 EDT Historical Authorization Comments-Primary : No Authorization Comments Found EZEKIEL PHILLIPS, RN - 07/17/2021 14:49 EDT Electronically signed by Alberto Da Silva Conversion Environmental Change Analyst Cerner at 05/27/2022 9:10 PM CDT documented in this encounter Plan of Treatment Not on file documented as of this encounter Visit Diagnoses Not on filedocumented in this encounter Care Teams Informatics Nurse Relationship Specialty Start Date End Date Linh Doty, DO [address] [facility] [address] [place] [address] PCP - General Family Medicine 11/04/22 Lizzie Alves PA-C [address] [place] [address], [facility] [address] [place] [address] Hospitalist Cardiology 05/27/23 Kaushik Mariscal MD [address] [facility] [address] [place] [address] Miniature Set Builder Electrophysiology 11/18/23 documented as of this encounter
--- OUTSIDE RECORDS SUMMARY | 2024-07-27 14:21 | XMS_ITS | Encounter Summary ---
Author Organization [facility] Init iatives Address [address] [place] [address] Care Team Providers Care Sheep Boner Name Role Phone Linh Doty DO Primary Care Provider [phone] Lizzie Alves PA-C Unavailable [phone] Kaushik Mariscal MD Unavailable Encounter Details Date Type Department Care Team (Late st Contact Info) Description 07/24/2021 Transcribed Document [facility] [place] Family Medicine [address] [place] [address] ProviderChad MD [address] [place] [address] Social History Tobacco Use Types Packs/Day Years Used Date Smoking Tobacco: Never Assessed Comments Unknown Sex and Gender Information Value Date Recorded Sex Assigned at Not on file Legal Sex Female 3:27 PM CDT Gender Identity Not on file Sexual Orientation Not on file documented as of this encounter Miscellaneous Notes * Cerner Conversion Note - Chad ProviderMD - 07/24/2021 5:00 PM CDT Chart Check - Review Order Profile Entered On: 07/24/2021 20:09 EDT Performed On: 07/24/2021 17:00 EDT by Colin Kaur Non Emp RN Chart Check Powerplans Initiated/Discontinued as Appropriate : Yes All Active Orders Reviewed : Yes Colin Kaur Non Emp RN - 07/24/2021 20:08 EDT Electronically signed by Alberto Da Silva Conversion Stem Roller Or Crusher Operator Cerner at 05/27/2022 9:17 PM CDT documented in this encounter Plan of Treatment Not on file documented as of this encounter Visit Diagnoses Not on filedocumented in this encounter Care Teams Sheep Boner Relationship Specialty Start Date End Date Linh Doty DO [address] [facility] [address] [place] [address] PCP - General Family Medicine 11/04/22 Lizzie Alves PA-C [address] [facility] [address] [place] [address] Hospitalist Cardiology 05/27/23 Kaushik Mariscal MD [address] [facility] [address] [place] [address] Jewel Inspector Electrophysiology 11/18/23 documented as of this encounter
--- OUTSIDE RECORDS SUMMARY | 2024-07-27 14:21 | XMS_ITS | Encounter Summary ---
Author Organization [facility] Init iatives Address [address] [place] [address] Care Team Providers Care Software Test Developer Name Role Phone Linh Doty DO Primary Care Provider [phone] Lizzie Alves PA-C Unavailable [phone] Kaushik Mariscal MD Unavailable Encounter Details Date Type Department Care Team (Late st Contact Info) Description 07/23/[address] [facility] [place] Family Medicine [address] [place] [address] ProviderChad MD [address] [place] [address] Social History Tobacco Use Types Packs/Day Years Used Date Smoking Tobacco: Never Assessed Comments Unknown Sex and Gender Information Value Date Recorded Sex Assigned at Not on file Legal Sex Female 3:27 PM CDT Gender Identity Not on file Sexual Orientation Not on file documented as of this encounter Miscellaneous Notes * Cerner Conversion Note - Chad Merchant MD - 07/23/2021 1:56 PM CDT On Going Discharge Planning Entered On: 07/23/2021 13:57 EDT Performed On: 07/23/2021 13:56 EDT by Mayra Vann Bank Credit Card Collection Clerk Rn Care Management Progress Note Discharge Arrangements : Patient Post-Acute Information Patient Name: GAGAN MENDOZA Gender: Female : [birth year] Age: 55 Years No Post-Acute Placement(s) Listed No Post-Acute Service(s) Listed No [place] Referral(s) Listed Discharge Options Discussed with Patient : Acute rehabilitation, Discharge transportation, DME, Home Health, Outpatient services Barriers to Discharge Identified : Clinical Condition of Patient Barriers to Discharge Unresolved : Clinical Condition of Patient Patient Discharge Goal : Home Is the Patient Meeting Medical Necessity : Yes Did you Attend Multidisciplinary Rounds? : Yes Mayra Vann, Bank Credit Card Collection Clerk Rn - 07/23/2021 13:56 EDT Narrative Progress Note Narrative Progress Note : hd 7 elos 5 low rar Plan for AICD removal 07/24 dcp- home with iv abx and hh after PPm removal Historical Progress Note : hd 6 elos 5 low rar patient has home abx arranged with [facility], planned for dc today however patient now to have AICD removed on 07/24 dcp- home ?iv abx after aicd removal Mayra Vann Bank Credit Card Collection Clerk Rn - 07/22/21 11:22:31 hd 3 elos 5 low rar patient is set up with [facility], [facility] to teach patient abx administration saturday 07/22. Per EP, plan to dc patient saturday 07/22. [facility] for HH. Mayra Vann, Bank Credit Card Collection Clerk Rn - 07/19/21 13:36:36 hd 2 low rar patient has orders from ID r/t iv abx and picc care but patient has no orders for PICC placement at this time, CM has reached out to ID. home abx orders sent to [facility]. patient will also need hh dcp- home with hh and iv abx Mayra Vann Bank Credit Card Collection Clerk Rn - 07/18/21 16:10:37 Mayra Vann Bank Credit Card Collection Clerk Rn - 07/23/2021 13:56 EDT documented in this encounter Plan of Treatment Not on file documented as of this encounter Visit Diagnoses Not on filedocumented in this encounter Care Teams Software Test Developer Relationship Specialty Start Date End Date Linh Doty, [address] [facility] [address] [place] [address] PCP - General Family Medicine 11/04/22 Lizzie Alves PA-C [address] [facility] [address] [place] [address] Hospitalist Cardiology 05/27/23 Kaushik Mariscal MD [address] [facility] [address] [place] [address] Rail Switch Operator Electrophysiology 11/18/23 documented as of this encounter
--- OUTSIDE RECORDS SUMMARY | 2024-07-27 14:21 | XMS_ITS | Encounter Summary ---
Author Organization [facility] Init iatives Address [address] [place] [address] Care Team Providers Care Configuration Technician Name Role Phone Linh Doty DO Primary Care Provider [phone] Lizzie Alves PA-C Unavailable [phone] Kaushik Mariscal MD Unavailable Encounter Details Date Type Department Care Team (Late st Contact Info) Description 07/24/2021 Transcribed Document [facility] [place] Family Medicine [address] [place] [address] ProviderChad MD [address] [place] [address] Social History Tobacco Use Types Packs/Day Years Used Date Smoking Tobacco: Never Assessed Comments Unknown Sex and Gender Information Value Date Recorded Sex Assigned at Not on file Legal Sex Female 3:27 PM CDT Gender Identity Not on file Sexual Orientation Not on file documented as of this encounter Miscellaneous Notes * Cerner Conversion Note - Chad Merchant MD - 07/24/2021 11:33 AM CDT On Going Discharge Planning Entered On: 07/24/2021 11:34 EDT Performed On: 07/24/2021 11:33 EDT by Mayra Vann Slate Trimmer Rn Care Management Progress Note Discharge Arrangements [...] of Patient Patient Discharge Goal : Home health care Is the Patient Meeting Medical Necessity : Yes Did you Attend Multidisciplinary Rounds? : Yes Mayra Vann, Slate Trimmer Rn - 07/24/2021 11:33 EDT Narrative Progress Note Narrative Progress Note : hd 8 elos 5 low rar patient to have AICD removed today r/t infection dcp- home soon with [facility] iv abx and lisa hh Historical Progress Note : hd 7 elos 5 low rar Plan for AICD removal 07/24 dcp- home with iv abx and hh after PPm removal Mayra Vann Slate Trimmer Rn - 07/23/21 13:57:38 hd 6 elos 5 low rar patient has home abx arranged with [facility], planned for dc today however patient now to have AICD removed on 07/24 dcp- home ?iv abx after aicd removal Mayra Vann Slate Trimmer Rn - 07/22/21 11:22:31 hd 3 elos 5 low rar patient is set up with [facility], [facility] to teach patient abx administration saturday 07/22. Per EP, plan to dc patient saturday 07/22. Lisa for HH. Mayra Vann Slate Trimmer Rn - 07/19/21 13:36:36 hd 2 low rar patient has orders from ID r/t iv abx and picc care but patient has no orders for PICC placement at this time, CM has reached out to ID. home abx orders sent to [facility]. patient will also need hh dcp- home with hh and iv abx Mayra Vann Slate Trimmer Rn - 07/18/21 16:10:37 Mayra Vann Slate Trimmer Rn - 07/24/2021 11:33 EDT Electronically signed by Reyna Da Silva Conversion Industrial Gas Servicer Supervisor Cerner at 05/27/2022 9:11 PM CDT documented in this encounter Plan of Treatment Not on file documented as of this encounter Visit Diagnoses Not on filedocumented in this encounter Care Teams Configuration Technician Relationship Specialty Start Date End Date Linh Doty, DO 8 [facility] [address] [place] [address] PCP - General Family Medicine 11/04/22 Lizzie Alves PA-C [address] [facility], [facility] [address] [place] [address] Hospitalist Cardiology 05/27/23 Kaushik Mariscal MD 1401 [facility] [address] [place] [address] Toll Service Observer Electrophysiology 11/18/23 documented as of this encounter
--- OUTSIDE RECORDS SUMMARY | 2024-07-27 14:21 | XMS_ITS | Encounter Summary ---
Author Organization [facility] Init iatives Address [address] [place] [address] Care Team Providers Care Rural Carrier Associate Name Role Phone Linh Doty DO Primary Care Provider [phone] Lizzie Alves PA-C Unavailable [phone] Kaushik Mariscal MD Unavailable Encounter Details Date Type Department Care Team (Late st Contact Info) Description 07/01/2021 Transcribed Document [facility] [place] Family Medicine [facility] [place] [address] ProviderChad MD [address] [place] [address] Social History Tobacco Use Types Packs/Day Years Used Date Smoking Tobacco: Never Assessed Comments Unknown Sex and Gender Information Value Date Recorded Sex Assigned at Not on file Legal Sex Female 3:27 PM CDT Gender Identity Not on file Sexual Orientation Not on file documented as of this encounter Miscellaneous Notes * Cerner Conversion Note - Chad ProviderMD - 07/01/2021 5:16 PM CDT Valuables and Belongings Entered On: 07/01/2021 22:37 EDT Performed On: 07/01/2021 20:00 EDT by Kati Kang RN Valuables and Belongings Valuables and Belongings : Clothing, Personal items, No comfort items, No jewelry, No personal devices, No assistive devices, No respiratory devices, No medications Clothing : Common streetwear Clothing Disposition : Bedside, With patient, Declines to send to security/safe Personal Items : Cell phone, Wallet Personal Items Disposition : With family, Declines to send to security/safe Kait aKng RN - 07/01/2021 22:37 EDT documented in this encounter Plan of Treatment Not on file documented as of this encounter Visit Diagnoses Not on filedocumented in this encounter Care Teams Rural Carrier Associate Relationship Specialty Start Date End Date Linh Doty, 8 [facility] [address] [place] [address] PCP - General Family Medicine 11/04/22 Lizzie Alves PA-C [address] [place] [address], [facility] [address] [place] [address] Hospitalist Cardiology 05/27/23 Kaushik Mariscal MD 1401 [facility] [address] [place] [address] Clay Products Glazer Electrophysiology 11/18/23 documented as of this encounter
--- OUTSIDE RECORDS SUMMARY | 2024-07-27 14:21 | XMS_ITS | Encounter Summary ---
Author Organization [facility] Init iatives Address [address] [place] [address] Care Team Providers Care Panman Name Role Phone Linh Doty DO Primary Care Provider [phone] Lizzie Alves PA-C Unavailable [phone] Kaushik Mariscal MD Unavailable Encounter Details Date Type Department Care Team (Late st Contact Info) Description 07/16/2021 Transcribed Document [facility] [place] [address] [place] [address] ProviderChad MD [address] [place] [address] Social History Tobacco Use Types Packs/Day [...] ProviderMD - 07/16/2021 2:19 PM CDT Evaluation, Occupational Therapy Entered On: 07/18/2021 14:02 EDT Performed On: 07/18/2021 11:59 EDT by MARY HUYNH, OTR/L General Information, OT Visit Type, OT : Initial evaluation Patient Orders : Order Date Order Ordering MD 07/16/2021 14:19 OT Evaluation and Treatment Ordered By: REYNALDO CURIEL MD-INT Active Diagnoses : 07/16/2021 12:00 Cardiac device problem 07/16/2021 12:00 General medical 07/16/2021 12:00 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, implants and grafts, initial encounter 07/16/2021 12:00 Presence of cardiac pacemaker Admission Date : 07/16/2021 14:13 Co-treated by, OT : Physical Therapist Personal Devices : Personal Devices No Devices Recorded Assistive Devices : Assistive Devices No Devices Recorded General Information Comment, OT : Dx: pacemaker pocket bleeding MARY HUYNH OTR/Delilah - 07/18/2021 13:56 EDT General Status Patient Received Status : Supine in bed Treatment Start Time : 07/18/2021 11:51 EDT Patient Left Status : Supine in bed, RN/PCT informed, All needs met and within reach RN/PCT Informed Comment : SARAH perdomoed evaluation. Treatment End Time : 07/18/2021 11:59 EDT Treatment Time : 8 Minute(s) MARY HUYNH OTR/Delilah - 07/18/2021 13:56 EDT History and Environment, OT Living Situation, Therapy : Home Patient Lives With : Significant other(s) Persons Providing Information : Patient Home Setup : One story Bedroom Location : Main level Bathroom #1 Location : Main level Stairs : Yes Stair Location(s) : Outside Outside Stairs, Number of Steps : 3 Railing Outside : Yes Outside Railing Position : Right, going up MARY HUYNH OTR/Delilah - 07/18/2021 13:56 EDT Prior LOF Bathing, OT : Independent Prior LOF Bed Mobility : Independent Prior LOF Upper Body Dressing, OT : Independent Prior LOF Lower Body Dressing, OT : Independent Prior LOF Toileting : Independent Prior LOF Transfer : Independent Prior LOF Grooming, OT : Independent Prior LOF for IADLs, OT : Independent MARY HUYNH OTR/Delilah - 07/18/2021 13:56 EDT Upper Extremity Upper Extremity Dominance : Right Right UE Active ROM : WFL Right UE Strength : WFL Left UE Active ROM : WFL Left UE Strength : WFL Upper Extremity Strength Impaired : No MARY HUYNH OTR/Delilah - 07/18/2021 13:56 EDT Self Care/Home Management, OT Self Feeding Assist Level, OT : Independent, complete Grooming Assist Level, OT : Independent, complete Bathing Assist Level, OT : Independent, complete Upper Body Dressing Assist Level, OT : Independent, complete Lower Body Dressing Assist Level, OT : Independent, complete Toileting Assist Level : Independent, complete Toilet Transfer Assist Level : Independent, complete MARY HUYNH OTR/Delilah - 07/18/2021 13:56 EDT Functional Mobility Mobility Grid Supine to Sit : Rehab Complete independence Sit to Stand : Rehab Complete independence Stand to Sit : Rehab Complete independence Sit to Supine : Rehab Complete independence MARY HUYNH OTR/Delilah - 07/18/2021 13:56 EDT Cognition Assessment, OT Orientation : Oriented x 4 MARY HUYNH OTR/Delilah - 07/18/2021 13:56 EDT Indication Assessment, OT Occupational Therapy Indicated : No Occupational Therapy Not Indicated : Independent Interdisciplinary Consultation(s) Needed : MARY Siu OTR/Delilah - 07/18/2021 13:56 EDT Plan of Care, OT OT Tx Plan/Goals Established w Patient : Helen MARY HUYNH OTR/Delilah - 07/18/2021 13:56 EDT Treatment Note Subjective Comment : Pt was agreeable, states she has been up to the bathroom today without difficulty. Patient's Response to Treatment : Pt tolerated evaluation well. Additional Objective Information : Pt was found supine upon arrival. Pt came to the EOB independently. Pt stood and ambulated a functional distance around nsg unit, no LOB or dizziness. Pt deferred the need for OT at this time. Pt returned to the room, was left supine with all needs met and CL in reach. Assessment : Pt with good participation in evaluation, is independent in all ADLs and functional mobility. No skilled OT needs at this time. Plan for Treatment : Eval only. MARY HUYNH OTR/Delilah - 07/18/2021 13:56 EDT Pain Assessment Pain Scaled Used : 0-10 Pain scale Pain Score Pre-Intervention : 0 MARY HUYNH OTR/L - 07/18/2021 13:56 EDT Image 1 - Images currently included in the form version of this document have not been included in the text rendition version of the form. Anticipated Discharge Needs, OT/PT Anticipated Discharge to : Home, independently MARY HUYNH OTR/L - 07/18/2021 13:56 EDT [place] OT Charges OT Eval Low Complexity : 1 MARY HUYNH, OTR/L - 07/18/2021 13:56 EDT Electronically signed by Rekha [facility] Conversion Paper Tube Cutter Cerner at 05/27/2022 9:06 PM CDT documented in this encounter Plan of Treatment Not on file documented as of this encounter Visit Diagnoses Not on filedocumented in this encounter Care Teams Panman Relationship Specialty Start Date End Date Linh Doty, DO 8 [facility] [address] [place] [address] PCP - General Family Medicine 11/04/22 Lizzie Alves PA-C [address] [place] [address], [facility] [address] [place] [address] Hospitalist Cardiology 05/27/23 Kaushik Mariscal MD 1401 [facility] [address] [place] [address] Dobby Loom Chain Pegger Electrophysiology 11/18/23 documented as of this encounter
--- OUTSIDE RECORDS SUMMARY | 2024-07-27 14:21 | XMS_ITS | Encounter Summary ---
Author Organization [facility] [facility] Init iatives Address [address] [place] [address] Care Team Providers Care Avionics Engineer Name Role Phone Linh Doty DO Primary Care Provider [phone] Lizzie Alves PA-C Unavailable [phone] Kaushik Mariscal MD Unavailable Encounter Details Date Type Department Care Team (Late st Contact Info) Description 07/17/2021 Transcribed Document [facility] [place] Family Medicine [facility] [place] [address] ProviderChad MD [address] [place] [address] Social History Tobacco Use Types Packs/Day Years Used Date Smoking Tobacco: Never Assessed Comments Unknown Sex and Gender Information Value Date Recorded Sex Assigned at Not on file Legal Sex Female 3:27 PM CDT Gender Identity Not on file Sexual Orientation Not on file documented as of this encounter Miscellaneous Notes * Cerner Conversion Note - Chad Merchant MD - 07/17/2021 3:17 PM CDT UM Authorization Entered On: 07/17/2021 15:21 EDT Performed On: 07/17/2021 15:17 EDT by Khushi Jones Rn-Utilization Review Primary Insurance Authorization Authorization and Policy Numbers : Insurance 1 Health Plan: [employer] Policy Number: [id number] Authorization Number: Insurance Primary Name : [employer] MEDICARE Policy Number: [id number] Authorization Status-Primary : Awaiting callback Authorized Service Begin Date-Primary : 07/18/2021 EDT Authorization Comments-Primary : REF# YAJAIRA DUNAWAY. CLINICAL FAXED VIA [facility] Historical Authorization Comments-Primary : No Authorization Comments Found Khushi Jones Rn-Utilization Review - 07/17/2021 15:17 EDT Electronically signed by [facility], [facility] Conversion Interline Clerk Cerner at 05/27/2022 9:07 PM CDT documented in this encounter Plan of Treatment Not on file documented as of this encounter Visit Diagnoses Not on filedocumented in this encounter Care Teams Avionics Engineer Relationship Specialty Start Date End Date Linh Doty, DO 8 [facility] [address] [place] [address] PCP - General Family Medicine 11/04/22 Lizzie Alves PA-C 1401 [facility], [facility] [address] [place] [address] Hospitalist Cardiology 05/27/23 Kaushik Mariscal MD [address] [facility] [address] [place] [address] Torque Tester Electrophysiology 11/18/23 documented as of this encounter
--- OUTSIDE RECORDS SUMMARY | 2024-07-27 14:21 | XMS_ITS | Encounter Summary ---
Author Organization [employer] [facility] Init iatives Address [address] [place] [address] Care Team Providers Care Deli Department Manager Name Role Phone Linh Doty DO Primary Care Provider [phone] Lizzie Alves PA-C Unavailable [phone] Kaushik Mariscal MD Unavailable Encounter Details Date Type Department Care Team (Late st Contact Info) Description 07/02/2021 Transcribed Document [facility] [place] [address] [place] [address] ProviderChad MD [address] [place] [address] Social History Tobacco Use Types Packs/Day Years Used Date Smoking Tobacco: Never Assessed Comments Unknown Sex and Gender Information Value Date Recorded Sex Assigned at Not on file Legal Sex Female 3:27 PM CDT Gender Identity Not on file Sexual Orientation Not on file documented as of this encounter Miscellaneous Notes * Cerner Conversion Note - Chad Merchant MD - 07/02/2021 9:31 AM CDT Pain Assessment Entered On: 07/02/2021 12:36 EDT Performed On: 07/02/2021 11:37 EDT by Aimee Betancur RN-Resource Intervention Information: acetaminophen-HYDROcodone Performed by Aimee Betancur RN-Resource on 07/02/2021 10:37:00 EDT acetaminophen-HYDROcodone,1Tab Oral,Pain (Moderate 4-6) Pain Assessment Pain Assessment : Follow-up assessment Pain Scale Goal : 0 Pain Scale Used : 0-10 Scale Aimee Betancur RN-Resource - 07/02/2021 12:36 EDT Pain Scale Intensity : 5 Aimee Betancur RN-Resource - 07/02/2021 12:36 EDT Image 4 - Images currently included in the form version of this document have not been included in the text rendition version of the form. Electronically signed by Rekha, [facility] Conversion Structural Welder Cerner at 05/27/2022 9:02 PM CDT documented in this encounter Plan of Treatment Not on file documented as of this encounter Visit Diagnoses Not on filedocumented in this encounter Care Teams Deli Department Manager Relationship Specialty Start Date End Date Linh Doty, DO 8 [place] [facility] [address] [place] [address] PCP - General Family Medicine 11/04/22 Lizzie Alves PA-C 1401 [facility], [facility] [address] [place] [address] Hospitalist Cardiology 05/27/23 Kaushik Mariscal MD 1401 [facility] [address] [place] [address] Business Development Recruiter Electrophysiology 11/18/23 documented as of this encounter
--- OUTSIDE RECORDS SUMMARY | 2024-07-27 14:21 | XMS_ITS | Encounter Summary ---
Author Organization [employer] [facility] Init iatives Address [address] [place] [address] Care Team Providers Care Sales Support Coordinator Name Role Phone Linh Doty DO Primary Care Provider [phone] Lizzie Alves PA-C Unavailable [phone] Kaushik Mariscal MD Unavailable Encounter Details Date Type Department Care Team (Late st Contact Info) Description 07/16/2021 Transcribed Document [facility] [place] Family Medicine [address] [place] [address] ProviderChad MD [address] [place] [address] Social History Tobacco Use Types Packs/Day Years Used Date Smoking Tobacco: Never Assessed Comments Unknown Sex and Gender Information Value Date Recorded Sex Assigned at Not on file Legal Sex Female 3:27 PM CDT Gender Identity Not on file Sexual Orientation Not on file documented as of this encounter Miscellaneous Notes * Cerner Conversion Note - Chad ProviderMD - 07/16/2021 2:49 PM CDT Pain Assessment Entered On: 07/23/2021 18:55 EDT Performed On: 07/23/2021 15:19 EDT by Colin Kaur Non Emp RN Intervention Information: oxyCODONE Performed by Colin Kaur Non Emp RN on 07/23/2021 14:19:00 EDT oxyCODONE,5mg Oral,Pain (Moderate 4-6) Pain Assessment Pain Assessment : Follow-up assessment Pain Scale Goal : 0 Pain Improved by Intervention : Yes Colin Kaur Non Emp RN - 07/23/2021 18:55 EDT Electronically signed by Rekha [facility] Conversion Hoe Runner Cerner at 05/30/2022 9:20 AM CDT documented in this encounter Plan of Treatment Not on file documented as of this encounter Visit Diagnoses Not on filedocumented in this encounter Care Teams Sales Support Coordinator Relationship Specialty Start Date End Date Linh Doty, DO 8 [facility] [address] [place] [address] PCP - General Family Medicine 11/04/22 Lizzie Alves PA-C 1401 [facility] [address] [place] [address] Hospitalist Cardiology 05/27/23 Kaushik Mariscal MD 1401 [facility] [address] [place] [address] Doctor Naturopathic Electrophysiology 11/18/23 documented as of this encounter
--- OUTSIDE RECORDS SUMMARY | 2024-07-27 14:21 | XMS_ITS | Encounter Summary ---
Author Organization [employer] [facility] Init iatives Address [address] [place] [address] Care Team Providers Care Human Services Instructor Name Role Phone Linh Doty DO Primary Care Provider [phone] Lizzie Alves PA-C Unavailable [phone] Kaushik Mariscal MD Unavailable Encounter Details Date Type Department Care Team (Late st Contact Info) Description 11/23/2018 Transcribed Document [facility] [facility] [address] ProviderChad MD [address] [place] [address] Social History Tobacco Use Types Packs/Day Years Used Date Smoking Tobacco: Never Assessed Comments Unknown Sex and Gender Information Value Date Recorded Sex Assigned at Not on file Legal Sex Female 3:27 PM CDT Gender Identity Not on file Sexual Orientation Not on file documented as of this encounter Miscellaneous Notes * Cerner Conversion Note - Chad ProviderMD - 11/23/2018 1:33 PM CDT Event Note Entered On: 11/23/2018 13:33 EDT Performed On: 11/23/2018 13:33 EDT by ELAINE CHOI RN Event Note Event Location : Other: `1330 - pivl dc . pt dc after ambulation. Hallway - ambuated with o difficulty. Right groin stable. l ELAINE CHOI RN - 11/23/2018 13:33 EDT documented in this encounter Plan of Treatment Not on file documented as of this encounter Visit Diagnoses Not on filedocumented in this encounter Care Teams Human Services Instructor Relationship Specialty Start Date End Date Linh Doty, 8 [facility] [address] [place] [address] PCP - General Family Medicine 11/04/22 Lizzie Alves PA-C [address] [place] [address], [facility] [address] [place] [address] Hospitalist Cardiology 05/27/23 Kaushik Mariscal MD [address] [facility] [address] [place] [address] Financial Assistance Advisor Electrophysiology 11/18/23 documented as of this encounter
--- OUTSIDE RECORDS SUMMARY | 2024-07-27 14:21 | XMS_ITS | Encounter Summary ---
Author Organization [employer] [facility] Init iatives Address [address] [place] [address] Care Team Providers Care Mail Handler Sorter Name Role Phone Linh Doty DO Primary Care Provider [phone] Lizzie Alves PA-C Unavailable [phone] Kaushik Mariscal MD Unavailable Encounter Details Date Type Department Care Team (Late st Contact Info) Description 07/01/2021 Transcribed Document [facility] [place] [address] [place] [address] ProviderChad MD [address] [place] [address] Social History Tobacco Use Types Packs/Day Years Used Date Smoking Tobacco: Never Assessed Comments Unknown Sex and Gender Information Value Date Recorded Sex Assigned at Not on file Legal Sex Female 3:27 PM CDT Gender Identity Not on file Sexual Orientation Not on file documented as of this encounter Miscellaneous Notes * Cerner Conversion Note - Chad ProviderMD - 07/01/2021 12:58 PM CDT Pre Procedure Adult Entered On: 07/01/2021 13:02 EDT Performed On: 07/01/2021 12:58 EDT by Rere Ramos RN Height and Weight, Clinical Dosing Height Source : Stated Height Entry Format : [place] Height, Feet : 5 ft(Converted to: 152 cm, 60 Inch) Height, Inches : 7 Inch(Converted to: 0 ft 7 Inch, 17.78 cm) Clinical Height : 170.18 cm Weight Source : Standing scale Weight Entry Format : [place] [facility] Weight : 61.36 kg Weight, Pounds : 135 lb Body Surface Area (BSA) : 1.71 m2 Body Mass Index : 21.2 kg/m2 [place] Body Weight : 61 kg Rere Ramos RN - 07/01/2021 12:58 EDT Health Histories Smoking Status : 10 or more cigarettes (1/2 pack or more)/day in last 30 days Smokeless Tobacco Status : Never Desires Tobacco Cessation Medication : No Reason for No Tobacco Cessation Medication : Refuses FDA approved medications Rere Ramos RN - 07/01/2021 12:58 EDT Social History (As Of: 07/01/2021 13:02:43 EDT) Tobacco: 10 or more cigarettes (1/2 [...] : No Patient Vaccinated for COVID-19 : Partially vaccinated or need booster Does Patient want a COVID-19 Vaccine? : No Rere Ramos RN - 07/01/2021 12:58 EDT Infectious Disease Risk Screening Grid Cough < 2 wks of unknown origin : NO Cough > 2 weeks : NO Blood in Sputum : NO Fever or self-reported Fever : NO Rash of unknown origin : NO Headache : NO Stiff neck : NO Night Sweats : NO Unexplained Weight Loss : NO Diarrhea (3 episode per day) : NO Rere Ramos RN - 07/01/2021 12:58 EDT Physical contact outside [place] in the last 30 days : No Hospitalized in Foreign Country : No Infectious Disease History : Chicken pox/Shingles, Measles, Mumps INF Disease TB Screening Calc : 0 INF Disease Recent Travel Calc : 0 Rere Ramos RN - 07/01/2021 12:58 EDT COVID19 PreProcedure Screening Is this an Emergent or Add on Procedure? : No Date PreProcedure COVID-19 test known? : No Has patient been isolated since the test : N/A - PreProcedure, in-person visit Exposed to COVID19 symptoms since test? : N/A - PreProcedure, in-person visit COVID-19 PreProcedure Screening Comment : Not required per hospital policy at this time Rere Ramos RN - 07/01/2021 12:58 EDT Anesthesia/Transfusion History Family History of Anesthesia Reaction : No prior transfusion(s) Blood Transfusion Acceptable to Patient : Yes Transfusion History : Prior anesthesia without reaction Family History of Anesthesia Reaction : None Intubation History : Unknown Rere Ramos RN - 07/01/2021 12:58 EDT Functional Assessment Living Situation : Home Patient Lives With : Spouse Persons Assisting Patient at Home : Alone Current Daily Living Assistance : None Sensory Deficits : None Mobility Assistance Prior to Admission : Independent MULLINS Hx Falls Immediate/Within 3 Months : No Current Home Treatments : None Home Equipment : None Rere Ramos RN - 07/01/2021 12:58 EDT [place] Suicide Severity Rating Scale (C-SSRS) CSSRS Past Month Wish to be : No CSSRS Past Month Suicidal Thoughts : No CSSRS Lifetime Suicide Behavior : No Suicide Severity Rating Score : 0 Suicide Severity Rating : No Additional Care Required at this time Rere Ramos RN - 07/01/2021 12:58 EDT Psychosocial History Do You Have a History of the Following? : Patient denies history Currently in Unsafe Situation : No Rere Ramos RN - 07/01/2021 12:58 EDT Advance Directive Patient has Advance Directive *Q : No, patient refuses Advance Directive information Rere Ramos RN - 07/01/2021 12:58 EDT Teaching/Learning Assessment Barriers To Learning : None evident Individuals Taught : Patient, Spouse Readiness to Learn : Cooperative Readiness to Learn : Explanation Rere Ramos RN - 07/01/2021 12:58 EDT Education Topics, Periop Preadmission Perioperative Education Grid Arrival Time/Place : Verbalizes understanding CAUTI : Verbalizes understanding Central Lines : Verbalizes understanding CHG Preoperative Bathing/Cloths : Verbalizes understanding Falls : Verbalizes understanding Incentive Spirometry : Verbalizes understanding Infection Control : Verbalizes understanding IV's : Verbalizes understanding NPO Status/Directions : Verbalizes understanding Pain Management : Verbalizes understanding Postoperative Care Preparations : Verbalizes understanding Preprocedure Preparations : Verbalizes understanding Preprocedure Tests/Labs : Verbalizes understanding Remove Body Piercings : Verbalizes understanding Responsible Adult : Verbalizes understanding SNE's : Verbalizes understanding Take/Hold Medications Pre-Procedure : Verbalizes understanding Other : Verbalizes understanding Rere Ramos RN - 07/01/2021 12:58 EDT General Info Preferred Name : Lena Arrived From : Home Mode of Arrival on Unit : Ambulatory Legal Guardian : Spouse Want Family/Rep/Phys Notified of Admit : No Emergency Contact #1 : Alexx Shaffer Emergency Contact #1 Emergency Contact #1 Relationship : Boyfriend Emergency Contact #2 : . Emergency Contact #2 Phone Number : . Emergency Contact #2 Relationship : . Information Obtained From : Patient Primary Language : Gambian Preferred Communication Mode : Verbal Communication Barrier : None Senior Systems Administrator Needed : No Rere Ramos RN - 07/01/2021 12:58 EDT Vital Measurements Temperature Source : Temporal artery scanning Temperature Mode : Fahrenheit Temperature, Fahrenheit : 97.8 Deg F Clinical Temperature, C : 36.6 Deg C Peripheral Pulse Rate : 83 bpm Respiratory Rate : 17 Breaths/Min Systolic Blood Pressure : 155 mmHg (HI) Diastolic Blood Pressure : 89 mmHg Oxygen Saturation : 93 % (LOW) Oxygen Therapy Mode : Room air Rere Ramos RN - 07/01/2021 12:58 EDT Sleep Apnea Risk Assmt Hx of Obstructive Sleep Apnea Diagnosis : No Snore Loudly : Yes Tired, Fatigued, or Sleepy During Day : No Observed Stopping Breathing During Sleep : No Have/Are Being Treated for Hypertension : Yes BMI Greater Than 35 kg/m2 : No Age over 50 Years Old : Yes Neck Circumference Greater Than 40 cm : No Gender Male : No STOP-BANG Sleep Apnea Risk Level Score : 3 Rere Ramos RN - 07/01/2021 12:58 EDT Raymon Scale Raymon Sensory Perception : No impairment Raymon Moisture : Rarely moist Raymon Activity : Walks occasionally Raymon Mobility : Slightly limited Raymon Nutrition : Excellent Raymon Friction and Shear : No apparent problem Raymon Score : 21 Rere Ramos RN - 07/01/2021 12:58 EDT Pain Assessment Pain Assessment : Initial assessment Pain Scale Used : 0-10 Scale Rere Ramos RN - 07/01/2021 12:58 EDT Fall Risk Scales ABCs Fall Injury Risk Identification : Coagulation ABC Fall Injury Risk : Moderate to high injury risk MULLINS Hx Falls Immediate/Within 3 Months : No Mullins Secondary Diagnosis : Yes MULLINS Use of Ambulatory Aid : None MULLINS IV Therapy or IV Access : Yes Mullins Gait/Transferring : Normal, bedrest, immobile Mullins Mental Status : Oriented to own ability Mullins Fall Risk Score : 35 MULLINS Fall Scale Risk Level : 25-45 Medium Risk [place] Fall Interventions : Adequate lighting, Assistive devices within reach, Bed in low position, Call device within reach, Fall prevention handout/education per facility policy, Frequent orientation to call device, Frequent orientation to surroundings, Hourly comfort/safety rounds, Non-slip footwear, Personal items within reach, Reinforced to call for assistance before getting out of bed, Room free of clutter/spills, Upper side-rails up, Wheels locked, Wires/Cords secured Rere Ramos RN - 07/01/2021 12:58 EDT Valuables and Belongings Valuables and Belongings : Clothing, Personal items, No comfort items, No jewelry, No personal devices, No assistive devices, No respiratory devices, No medications Clothing : Common streetwear Clothing Disposition : Bedside, With patient, Declines to send to security/safe Personal Items : Cell phone, Wallet Personal Items Disposition : With family, Declines to send to security/safe Rere Ramos RN - 07/01/2021 12:58 EDT Pain Scale Intensity : 0 Rere Ramos RN - 07/01/2021 12:58 EDT Image 4 - Images currently included in the form version of this document have not been included in the text rendition version of the form. documented in this encounter Plan of Treatment Not on file documented as of this encounter Visit Diagnoses Not on filedocumented in this encounter Care Teams Mail Handler Sorter Relationship Specialty Start Date End Date PetrasLinh, DO [address] [place] [address] PCP - General Family Medicine 11/04/22 Lizzie Alves PA-C [address] [facility], [facility] [address] [place] [address] Hospitalist Cardiology 05/27/23 Kaushik Mariscal MD [address] [facility] [address] [place] [address] Guitar Player Electrophysiology 11/18/23 documented as of this encounter
--- OUTSIDE RECORDS SUMMARY | 2024-07-27 14:21 | XMS_ITS | Encounter Summary ---
Author Organization [email or web address] [facility] Init iatives Address [address] [place] [address] Care Team Providers Care Internal Medicine Physician Name Role Phone Linh Doty DO Primary Care Provider [phone] Lizzie Alves PA-C Unavailable [phone] Dion Mariscal MD Unavailable Encounter Details Date Type Department Care Team (Late st Contact Info) Description 07/23/2021 Transcribed Document [facility] [place] [facility] [place] [address] ProviderChad MD [address] [place] [address] Social History Tobacco Use Types Packs/Day Years Used Date Smoking Tobacco: Never Assessed Comments Unknown Sex and Gender Information Value Date Recorded Sex Assigned at Not on file Legal Sex Female 3:27 PM CDT Gender Identity Not on file Sexual Orientation Not on file documented as of this encounter Miscellaneous Notes * Cerner Conversion Note - Chad Merchant MD - 07/23/2021 12:33 PM CDT Patient: GAGAN MENDOZA Age: 55 Years Sex: Female : 1965 Assessment/Plan -Status post AICD generator change 07/01/2021 now with complicating site hematoma evolving infection -History of coronary artery disease with prior stent -Known COPD with ongoing tobacco abuse -Essential hypertension and dyslipidemia -History of ischemic cardiomyopathy prior AICD implantation -History of left ventricular thrombus-has been on Eliquis previously -Polycythemia -History of peripheral arterial disease Plan: continue present treatment as is, discharge home once cleared by cardiology electrophysiology and infectious disease Decision regarding resuming Plavix and Eliquis defer to electrophysiology resume once safe from their perspective Per ID service following recommendations are made IV antibiotics at home or local facility with daptomycin 400 mg IV daily, ceftriaxone 2 g IV daily until 08/15/2021. Check CBC, CMP, CRP, CPK weekly while on IV antibiotics. Weekly PICC dressing changes. Hold rosuvastatin , while on daptomycin to decrease risk of rhabdomyolysis. Dispo: PPM removal on Thursday VTE Prophylaxis - Medical Sequential Compression Device Start: 07/19/21 9:35:00 EDT, Bilateral, Continuous Order (DION MARISCAL) Subjective Seen and examined bedside. No acute events overnight. PPM extraction tomororw Constitutional: [No fevers, chills, sweats] Eye: [No recent visual problems] ENMT: [No ear pain, nasal congestion, sore throat] Respiratory: [No shortness of breath, cough] Cardiovascular: [No Chest pain, palpitations, syncope] Gastrointestinal: [No nausea, vomiting, diarrhea] Genitourinary: [No hematuria] Vital Signs T: 36.8 ??C TMIN: 36.6 ??C TMAX: 36.8 ??C HR: 71(Monitored) RR: 18 BP: 112/69 SpO2: 92% Oxygen Settings (Last) Oxygen Therapy Mode: Nasal cannula (07/23/21 08:26:00) Oxygen Flow Rate: 4 Liter/Min (07/23/21 08:26:00) Intake & Output Totals Last 24 Hours (7a-7a) Input Total: 128 mL Output Total: 0 mL Balance: 128 mL Physical Exam General: [alert , well nourished, no acute distress ] Neurologic: [awake and alert oriented x3 , cranial nerves 2-12 intact _ , _ no focal deficit , normal sensation _ ] Eye: [pupils equal round and reactive , extra ocular movements intact , normal conjunctiva ] HENT: [normocephalic,clear tympanic membranes , normal hearing, moist oral mucosa ,no scleral icterus, no sinus tenderness ] Neck: [supple , non-tender, no carotid bruits, no jugular venous distension , no lymphadenopathy ] Lungs: [ non labored respiration _ , equal breath sounds, _ no wheezing _ , no rhonchi , no rales , ON NASAL CANNULA O2 ] Heart: [normal rate, regular rhythm, _ no murmur _ , no gallop, no edema ] Abdomen: [soft non-tender _ , no guarding , non-distended , normal bowel sounds , no masses] MSkeletal: [normal range of motion, no tenderness or swelling ]. Skin: [skin is warm , dry , appropriate for ethnicity , no rashes , _] Psychiatric: [cooperative , appropriate mood and affect] Medications carvedilol, 12.5 mg= 1 Tab, Oral, BID Cathflo Activase 1 mg + syringe 1 Each Colace, 100 mg= 1 Cap, Oral, BID, PRN DAPTOmycin + Sodium Chloride 0.9% intravenous solution 50 mL DuoNeb 0.5 mg-2.5 mg/3 mL inhalation solution, 3 mL, Nebulized Inhalation , Q8H ergocalciferol, 19144 Units= 1 Cap, Oral, Weekly Florastor, 250 mg= 1 Cap, Oral, BID folic acid, 1 mg= 1 Tab, Oral, Daily gabapentin, 600 mg= 1 Tab, Oral, TID hydrALAZINE, 5 mg= 0.25 mL, IV Push, Q4H, PRN Lasix, 20 mg= 1 Tab, Oral, Daily lisinopril, 5 mg= 1 Tab, Oral, At Bedtime MiraLax, 17 Gram= 1 Packet, Oral, Daily, PRN morphine, 2 mg= 1 mL, IV Push, Q2H, PRN nicotine 21 mg/24 hr transdermal film, extended release, 1 Patch, TransDermal, Daily Normal Saline Flush, 10 mL, IntraCATHeter, Q12H pantoprazole, 40 mg= 1 Tab, Oral, Daily potassium chloride extended release, 10 mEq= 1 Tab, Oral, Daily Rocephin Roxicodone, 5 mg= 1 Tab, Oral, Q4H, PRN sodium chloride 0.9% injectable solution, 10 mL, IV Push, Q8H topiramate, 25 mg= 1 Tab, Oral, At Bedtime Tylenol, 650 mg= 2 Tab, Oral, Q4H, PRN Zofran, 4 mg= 2 mL, IV Push, Q4H, PRN Lab Results Test Name Test Result Date/Time ABO/Rh (ECHO) A POS 07/23/2021 04:55 EDT Antibody Screen Negative ABSC 07/23/2021 04:55 EDT Crossmatch Computer XM OK 07/23/2021 04:55 EDT Crossmatch Computer XM OK 07/23/2021 04:55 EDT Crossmatch Computer XM OK 07/23/2021 04:55 EDT Crossmatch Computer XM OK 07/23/2021 04:55 EDT [1] Hospitalist; LIN ROSARIO MD 07/22/2021 13:42 EDT Electronically signed by [facility], [facility] Conversion [employer] Sports Coach Cerner at 05/27/2022 9:24 PM CDT documented in this encounter Plan of Treatment Not on file documented as of this encounter Visit Diagnoses Not on filedocumented in this encounter Care Teams Internal Medicine Physician Relationship Specialty Start Date End Date Linh Doty, DO [address] [facility] [address] [place] [address] PCP - General Family Medicine 11/04/22 Lizzie Alves PA-C [address] [place] [address], [facility] [address] [place] [address] Hospitalist Cardiology 05/27/23 Dion Mariscal MD [address] [facility] [address] [place] [address] Rfid Manager Electrophysiology 11/18/23 documented as of this encounter
--- OUTSIDE RECORDS SUMMARY | 2024-07-27 14:21 | XMS_ITS | Encounter Summary ---
Author Organization [facility] Init iatives Address [address] [place] [address] Care Team Providers Care Curtain Cutter Hand Name Role Phone Linh Doty DO Primary Care Provider [phone] Lizzie Alves PA-C Unavailable [phone] Kaushik Mariscal MD Unavailable Encounter Details Date Type Department Care Team (Late st Contact Info) Description 07/23/2021 Transcribed Document [facility] [place] [address] [place] [address] ProviderChad MD [address] [place] [address] Social History Tobacco Use Types Packs/Day Years Used Date Smoking Tobacco: Never Assessed Comments Unknown Sex and Gender Information Value Date Recorded Sex Assigned at Not on file Legal Sex Female 3:27 PM CDT Gender Identity Not on file Sexual Orientation Not on file documented as of this encounter Miscellaneous Notes * Cerner Conversion Note - Chad Merchant MD - 07/23/2021 11:18 PM CDT WOCN Inpatient Documentation Entered On: 07/24/2021 11:06 EDT Performed On: 07/24/2021 9:10 EDT by Kelsea Donovan [id number] Therapy WOCN Admission Date : Admit Date 07/16/2021 14:[address] : Diagnosis (4) Cardiac device problem General medical Presence of cardiac pacemaker 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, implants and grafts, initial encounter Reason for WOCN Visit : Initial consult Admitting Diagnosis ST : Reason for Admission pacemaker pocket bleeding WOCN Assessment Summary : Wound care team consulted to assess coccyx. Wound care service desk team lead at bedside patient on LUIS surface. Family at bedside. Assessment performed and recommendations made for shear and friction and pressure prevention. If any chnages to skin integrity please consult wound care dept. Kelsea Donovan, [id number] Therapy - 07/24/2021 11:04 EDT Electronically signed by [facility], [facility] Conversion Monkey Trainer Cerner at 05/27/2022 9:05 PM CDT documented in this encounter Plan of Treatment Not on file documented as of this encounter Visit Diagnoses Not on filedocumented in this encounter Care Teams Curtain Cutter Hand Relationship Specialty Start Date End Date Linh Doty, [address] [facility] [address] [place] [address] PCP - General Family Medicine 11/04/22 Lizzie Alves PA-C [address] [facility], [facility] [address] [place] [address] Hospitalist Cardiology 05/27/23 Kaushik Mariscal MD [address] [facility] [address] [place] [address] Production Engine Repairer Electrophysiology 11/18/23 documented as of this encounter
--- OUTSIDE RECORDS SUMMARY | 2024-07-27 14:21 | XMS_ITS | Data Portability ---
Author Organization [place] [facility] [place] [facility] Address [address] [place] [address] Care Team Providers Care Metal Grader Name Role Phone PHONG WILLIAM Primary Care Provider Assessment No assessment recorded. Plan of Treatment [...] By Organization Details Last Modified Time 01/27/2017 [id number] 1. Tobacco cessation stongly encouraged. 2. EGD [...] thyro id No observ ation record ed. [email or web address] Not Available 2016 10:51:38 01/27/20 17 01/22/2017 [place], thyro id No observ ation record ed. [email or web address] [facility] (Radiology) [address] , [place], [address], 01/27/2017 13:16:29 Result Notes None recorded. Problems Name Problem SNOMED Code Status Onset Date Resolution Date Notes Provider Name and Address Organization Details Recorded Time Atypical squamous cells of undetermi rozina significa nce on cervical Papanicol aou smear 058828105 Active 2014 Provider: Ramy Hawk;Ilia tus: Active Not Available [facility] 6 06:27:24 High grade squamous intraepit helial lesion on cervical Papanicol aou smear 84626004787 107 Active 2014 From Automated Load;Prov ider: Ramy Hawk;Ilia tus: Active Not Available [facility] 6 06:27:24 Cyst of vulva 14358451 Active 2015 From Automated Load;Prov ider: Ashia Vasquez; atus: Active Not Available [facility] 6 06:27:24 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 Procedures Surgical History Date Name Laterality Status Provider Name and Address Organization Details Recorded Time 07/25/19 22 removal of implantable cardiac pacemaker completed [facility] 07/29/2021 10:09:55 07/03/19 22 replacement of electronic heart device, pulse generator completed [facility] 07/29/2021 10:16:21 transesophageal echocardiography completed [facility] 07/29/2021 10:10:01 Imaging Results None recorded. Procedure Notes None recorded. Medical Equipment None [...] Available Not Available Vitals Date Recorded Body height Body mass index (BMI) Body weight Heart rate Oxygen saturation Oxygen saturation in Arterial blood by Pulse oximetry Inhaled oxygen flow rate Systolic blood pressure Diastolic blood pressure Provider Name and Address Organization Details Last Updated DateTime 2 167.64 cm 22.6 kg/m2 78329.9 3 g 76 /min 91 % 91 % 4 L/min 106 mm[Hg] 70 mm[Hg] Mireille Deshpande [facility] 2 10:19:54 Date Recorded Body weight Body mass index (BMI) Body height Body temperature Provider Name and Address Organization Details Last Updated DateTime 01/27/2017 58561.09 g 29.3 kg/m2 167.64 cm 97.5 [degF] [facility] 01/27/2017 16:15:45 Social History Question Answer Notes LastModified by Organizat ion Details LastModified Time Tobacco Smoking Status Former Smoker Mireille Deshpande [facility] 07/30/2021 10:13:31 What Was The Date Of Your Most Recent Tobacco Screening? 07/30/2021 [email or web address] Information not available 07/30/2021 Has Tobacco Cessation Counseling Been Provided? No [email or web address] Information not available 07/30/2021 Sex: Unknown Functional [...] available 2016 16:11:17 Medical History Condition Response Cancer N Bleeding Disorder N Anesthesia Complications N Alcohol Overuse/Alcohol Abuse N Heart Attack ([place]) Y Heart Disease Y Hypertension Y Gynecological HistoryNo gynecological history recorded. Obstetrics History GPAL:G 0 P 0 0 0 0 Past Encounters Encounter ID Performer Location Encounter Start Date Encounter Closed Date Diagnosis/Indication Diagnosis SNOMED-CT Code Diagnosis ICD10 Code Diagnosis Note [id number] KRISTOPHER AVILA III, [place] [facility] [address] [place] [address] 01/27/2017 15:44:32 01/28/2017 09:23:17 Dysphagia 89709348 R13.10 Nicotine dependence 5629 4008 F17.200 Thyroid nodule 008413011 E04.1 Cyst of thyroid 12336376 E04.1 Chronic hoarseness 37860 75120 105 R49.0 Hypertroph y of nasal turbinates 84683868 J34.3 Excessive belching 31499 7000 R14.2 [id number] ABBE HOLLEY MD [facility] [address] [place] [address] ,[address] [place] [address] 07/30/2021 10:05:00 07/30/2021 10:27:26 Wound of skin 299383042 T14.8XXD Patient's incision is well-heale d. Follow-up as noted above. Health Concerns Section Related Observation LastModified by Organization Detai ls LastModified Time None Recorded Concern Status LastModified by Organization Details LastModified Time None Recorded Advance Directives Directive None Recorded Payers Insurance Date Sequence Insurance Name Policy Number Policy Harding Covered Member ID Harding Member ID Guarantor Name 07/30/2021 1 [place]ARE[place] Lena Chandler [id number] Lena Chandler 04/21/2018 1 *SELF PAY* Pina Chandler 08/06/2021 1 [facility] (MEDICARE REPLACEMENT/ ADVANTAGE - HMO) Lena Chandler [id number] Lena Chandler Notes Date Note Type Note [...] or Barium swallow. KRISTOPHER AVILA III, MD [address] [place] [address], [phone], [facility] 01/27/2017 17:33:10 07/30/2021 text/html Mrs. 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 She is normally followed by Dr. Mariscal. He reports no problems with wound healing and is anticipating a follow-up with Dr. Mariscal later this month. ABBE HOLLEY MD [address] [place] [address], [phone], [facility] 07/30/2021 10:24:58 OBGyn Episode No OBEpisode recorded.
--- OUTSIDE RECORDS SUMMARY | 2024-07-27 14:21 | XMS_ITS | Encounter Summary ---
Author Organization [employer] [facility] Init iatives Address [address] [place] [address] Care Team Providers Care Shift Commander Name Role Phone Linh Doty DO Primary Care Provider [phone] Lizzie Alves PA-C Unavailable [phone] Kaushik Mariscal MD Unavailable Encounter Details Date Type Department Care Team (Late st Contact Info) Description 07/01/2021 Transcribed Document [facility] [address] [place] [address] ProviderChad MD [address] [place] [address] Social History Tobacco Use Types Packs/Day Years Used Date Smoking Tobacco: Never Assessed Comments Unknown Sex and Gender Information Value Date Recorded Sex Assigned at Not on file Legal Sex Female 3:27 PM CDT Gender Identity Not on file Sexual Orientation Not on file documented as of this encounter Miscellaneous Notes * Cerner Conversion Note - Chad Merchant MD - 07/01/2021 5:06 PM CDT Patient: GAGAN MENDOZA Age: 55 Years Sex: Female : 1965 Group Home Worker: Kaushik Mariscal MD Indication: 55-year-old femalewith past medical history of coronary artery disease, ischemic cardiomyopathy, congestive heart failure, left ventricular action fraction of 35 to 40%, and history of LV apical thrombus, currently on oral anticoagulation with Eliquis, AICD ([employer]) single chamber implanted in August 2011 , history of ventricular tachycardia, hypertension, hyperlipidemia, peripheral arterial disease, and ongoing tobacco abuse. Her device is ROSA and she is here for generator change. Procedure report: After written informed consent was obtained, the patient was brought to the Electrophysiology Laboratory in a fasting state. Antibiotics were infused before skin prep - 2g Cefazolin. Sedation was managed by anesthesia. The skin was prepared with sterile scrub. Following infiltration with 2% lidocaine, an incision was made parallel to and 2 centimeters beneath the clavicle near the prior incision. Electrocautery carried down through the fascia to the device pocket, and electrocautery used for hemostasis. The device was exposed. The lead was disconnected from existing device, and the single chamber generator was removed from the field. A new pulse generator was brought onto the field and interfaced with the existing lead. The pocket was flushed with antibiotic solution and careful hemostasis performed. All lead impedance, sensing and pacing were tested and found to be in good working order. The pocket was closed in 3 layers, using running 2-0 and 4-0 Vicryl. Dermabond was applied as well as Aquacel surgical dressing. Patient tolerated the procedure well and there were no complications at the end of the procedure. Device Information: The new device pulse generator was a [employer] model [id number] SN [id number] that replaced the old generator. Complications: No immediate complications were observed. Blood loss around 10 mL. Conclusion: Successful Procedure(s) of: 1. SINGLE CHAMBER SYSTEM REPLACEMENT Plan: Discharge tomorrow. Electronically signed by Reyna Da Silva Conversion Maintenance Technician 2Nd Shift Cerner at 05/27/2022 9:04 PM CDT documented in this encounter Plan of Treatment Not on file documented as of this encounter Visit Diagnoses Not on filedocumented in this encounter Care Teams Shift Commander Relationship Specialty Start Date End Date Linh Doty, DO [address] [facility] [address] [place] [address] PCP - General Family Medicine 11/04/22 Lizzie Alves PA-C [address] [place] [address] Hospitalist Cardiology 05/27/23 Kaushik Mariscal MD [address] [facility] [place] [address] Bottle Packer Electrophysiology 11/18/23 documented as of this encounter
--- OUTSIDE RECORDS SUMMARY | 2024-07-27 14:21 | XMS_ITS | Encounter Summary ---
Author Organization [employer] [facility] Init iatives Address [address] [place] [address] Care Team Providers Care Environmental Services Aide Name Role Phone Linh Doty DO Primary Care Provider [phone] Lizzie Alves PA-C Unavailable [phone] Kaushik Mariscal MD Unavailable Encounter Details Date Type Department Care Team (Late st Contact Info) Description 07/16/2021 Transcribed Document [facility] [place] Family Medicine [address] [place] [address] ProviderChad MD [address] [place] [address] Social History Tobacco Use Types Packs/Day Years Used Date Smoking Tobacco: Never Assessed Comments Unknown Sex and Gender Information Value Date Recorded Sex Assigned at Not on file Legal Sex Female 3:27 PM CDT Gender Identity Not on file Sexual Orientation Not on file documented as of this encounter Miscellaneous Notes * Cerner Conversion Note - Chad ProviderMD - 07/16/2021 5:00 PM CDT Chart Check - Review Order Profile Entered On: 07/17/2021 20:01 EDT Performed On: 07/16/2021 17:00 EDT by Anita Ko, RN Chart Check Powerplans Initiated/Discontinued as Appropriate : Yes All Active Orders Reviewed : Yes Anita Ko, RN - 07/17/2021 20:01 EDT documented in this encounter Plan of Treatment Not on file documented as of this encounter Visit Diagnoses Not on filedocumented in this encounter Care Teams Environmental Services Aide Relationship Specialty Start Date End Date Linh Doty, [address] [facility] [address] [place] [address] PCP - General Family Medicine 11/04/22 Lizzie Alves PA-C [address] [place] [address], [facility] [address] [place] [address] Hospitalist Cardiology 05/27/23 Kaushik Mariscal MD [address] [facility] [address] [place] [address] Door Installer Electrophysiology 11/18/23 documented as of this encounter
--- OUTSIDE RECORDS SUMMARY | 2024-07-27 14:21 | XMS_ITS | Encounter Summary ---
Author Organization [employer] [facility] Init iatives Address [address] [place] [address] Care Team Providers Care Tunnel Kiln Repairer Name Role Phone Linh Doty DO Primary Care Provider [phone] Lizzie Alves PA-C Unavailable [phone] Kaushik Mariscal MD Unavailable Encounter Details Date Type Department Care Team (Late st Contact Info) Description 08/27/2021 Transcribed Document [facility] [place] [address] [place] [address] ProviderChad MD [address] [place] [address] Social History Tobacco Use Types Packs/Day Years Used Date Smoking Tobacco: Never Assessed Comments Unknown Sex and Gender Information Value Date Recorded Sex Assigned at Not on file Legal Sex Female 3:27 PM CDT Gender Identity Not on file Sexual Orientation Not on file documented as of this encounter Miscellaneous Notes * Cerner Conversion Note - Chad ProviderMD - 08/27/2021 11:15 AM CDT Spiritual Care Short Form Entered On: 08/27/2021 13:17 EDT Performed On: 08/27/2021 11:15 EDT by LYNN VENEGAS General Information, Spiritual Care Spiritual Care Referred by : Supervisor Frame Assembly initiated Reason for Visit : Initial Ministry Provided to : Patient, Family/Significant other Intervention/Comment/Summary Points : Initial Spiritual Care visit with patient and by Tr caldera. LYNN VENEGAS - 08/27/2021 13:17 EDT documented in this encounter Plan of Treatment Not on file documented as of this encounter Visit Diagnoses Not on filedocumented in this encounter Care Teams Tunnel Kiln Repairer Relationship Specialty Start Date End Date Linh Doty, DO [address] [facility] [address] [place] [address] PCP - General Family Medicine 11/04/22 Lizzie Alves PA-C [address] [place] [address], [facility] [address] [place] [address] Hospitalist Cardiology 05/27/23 Kaushik Mariscal MD [address] [facility] [address] [place] [address] Nurse Emergency Electrophysiology 11/18/23 documented as of this encounter
--- OUTSIDE RECORDS SUMMARY | 2024-07-27 14:21 | XMS_ITS | Encounter Summary ---
Author Organization [employer] [facility] Init iatives Address [address] [place] [address] Care Team Providers Care Harness Placer Name Role Phone Linh Doty DO Primary Care Provider [phone] Lizzie Alves PA-C Unavailable [phone] Kaushik Mariscal MD Unavailable Encounter Details Date Type Department Care Team (Late st Contact Info) Description 07/16/2021 Transcribed Document [facility] [place] Family Medicine [address] [place] [address] ProviderChad MD [address] [place] [address] Social History Tobacco Use Types Packs/Day [...] ProviderMD - 07/16/2021 12:00 PM CDT ED Triage Entered On: 07/16/2021 12:12 EDT Performed On: 07/16/2021 12:06 EDT by TYREE CERNA RN ED Triage Across the Room Chief Complaint : Pt states she has a blood pocket surrounding her pacemaker. Was brought over by EP lab. Pacemaker places [address] 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 States 02 run between 88-93. Hx of COPD. Denies SOB/chest pain Triage Date/Time : 07/16/2021 12:06 EDT TYREE CERNA RN - 07/16/2021 12:06 EDT DCP GENERIC CODE Tracking Acuity : 2 - Emergent Tracking Group : [facility] ED TYREE CERNA RN - 07/16/2021 12:06 EDT Mode of Arrival : Ambulatory Transported to ED by : Walk in To Room Via : Ambulate Accompanied By : Unaccompanied ED Vital Signs : Document Height & Weight : Document ED Allergies : Document ED Reason for Visit : Document TYREE CERNA RN - 07/16/2021 12:06 EDT Infectious Disease History Does patient have symptoms of COVID-19? : No Tested for COVID19 in the past 14 days : No, Patient stated Does the Patient state known exposure to a COVID-19 positive case in the last 14 days? : No Patient Vaccinated for COVID-19 : Fully vaccinated TYREE CERNA RN - 07/16/2021 12:06 EDT Infectious Disease Risk Screening Grid Cough < 2 wks of unknown origin : NO Cough > 2 weeks : NO Blood in Sputum : NO Fever or self-reported Fever : NO Rash of unknown origin : NO Headache : NO Stiff neck : NO Night Sweats : NO Unexplained Weight Loss : NO Diarrhea (3 episode per day) : NO TYREE CERNA RN - 07/16/2021 12:06 EDT Physical contact outside [place] in the last 30 days : No Hospitalized in Foreign Country : No Infectious Disease History : Chicken pox/Shingles, Measles, Mumps INF Disease TB Screening Calc : 0 INF Disease Recent Travel Calc : 0 TYREE CERNA RN - 07/16/2021 12:06 EDT Vital Signs ED Temperature Source : Oral Temperature Mode : Fahrenheit Temperature, Fahrenheit : 98.0 Deg F Clinical Temperature, C : 36.7 Deg C Oxygen Therapy Mode : Room air Peripheral Pulse Rate : 78 bpm Respiratory Rate : 20 Breaths/Min Systolic Blood Pressure : 152 mmHg (HI) Diastolic Blood Pressure : 84 mmHg Oxygen Saturation : 90 % (LOW) TYREE CERNA RN - 07/16/2021 12:06 EDT Allergy (As Of: 07/16/2021 12:12:20 EDT) Allergies (Active) No Known Allergies Estimated Onset Date: Unspecified ; Created By: Contributor_system, HIST_CERGRISELDA; Reaction Status: Active ; Category: Drug ; Substance: No Known Allergies ; Type: Allergy ; Updated By: Contributor_systemDANIEL; Reviewed Date: 10/26/2017 9:51 EDT Diagnosis Control ED (As Of: 07/16/2021 12:12:20 EDT) Problems(Active) Arteriosclerosis (SNOMED CT :723732311 ) Name of Problem: Arteriosclerosis ; Recorder: ELAINE CHOI RN; Confirmation: Confirmed ; Classification: Patient Stated ; Code: 893051978 ; Contributor System: [employer] ; Last Updated: 11/23/2018 8:01 EDT ; Life Cycle Date: 11/23/2018 ; Life Cycle Status: Active ; Vocabulary: SNOMED CT At risk for sleep apnea (IMO :12034840 ) Name of Problem: At risk for sleep apnea ; Recorder: SYSTEM, SYSTEM; Confirmation: Confirmed ; Classification: Medical ; Code: 19227767 ; Last Updated: 07/01/2021 13:02 EDT ; Life Cycle Date: 07/01/2021 ; Life Cycle Status: Active ; Vocabulary: IMO Cardiomyopathy (SNOMED CT :968357432 ) Name of Problem: Cardiomyopathy ; Recorder: Rere Ramos RN; Confirmation: Confirmed ; Classification: Patient Stated ; Code: 316323589 ; Contributor System: PowerChart ; Last Updated: 07/01/2021 12:56 EDT ; Life Cycle Date: 07/01/2021 ; Life Cycle Status: Active ; Vocabulary: SNOMED CT Chronic CHF (SNOMED CT :561111859 ) Name of Problem: Chronic CHF ; Recorder: ELAINE CHOI RN; Confirmation: Confirmed ; Classification: Patient Stated ; Code: 342647551 ; Contributor System: PowerChart ; Last Updated: 11/23/2018 8:00 EDT ; Life Cycle Date: 11/23/2018 ; Life Cycle Status: Active ; Vocabulary: SNOMED CT Current smoker (SNOMED CT :808958766 ) Name of Problem: Current smoker ; Recorder: ELAINE CHOI RN; Confirmation: Confirmed ; Classification: Patient Stated ; Code: 954731045 ; Contributor System: Professional Aptitude CouncilChart ; Last Updated: 11/23/2018 8:01 EDT ; Life Cycle Date: 11/23/2018 ; Life Cycle Status: Active ; Vocabulary: SNOMED CT Gout (SNOMED CT :513784792 ) Name of Problem: Gout ; Recorder: Rere Ramos RN; Confirmation: Confirmed ; Classification: Patient Stated ; Code: 756680081 ; Contributor System: Professional [employer] Council[employer] ; Last Updated: 07/01/2021 12:57 EDT ; Life Cycle Date: 07/01/2021 ; Life Cycle Status: Active ; Vocabulary: SNOMED CT High cholesterol (SNOMED CT :81621641 ) Name of Problem: High cholesterol ; Recorder: Brandin Conroy, SARAH; Confirmation: Confirmed ; Classification: Medical ; Code: 93759609 ; Contributor System: PowerChart ; Last Updated: 06/07/2017 19:00 EDT ; Life Cycle Date: 06/07/2017 ; Life Cycle Status: Active ; Vocabulary: SNOMED CT History of [place] (myocardial infarction) (SNOMED CT :9184166179 ) Name of Problem: History of [place] (myocardial infarction) ; Recorder: Rere Ramos RN; Confirmation: Confirmed ; Classification: Patient Stated ; Code: 1109865041 ; Contributor System: PowerChart ; Last Updated: 07/01/2021 12:56 EDT ; Life Cycle Date: 07/01/2021 ; Life Cycle Status: Active ; Vocabulary: SNOMED CT Intermittent claudication (SNOMED CT :497389644 ) Name of Problem: Intermittent claudication ; Recorder: ELAINE CHOI RN; Confirmation: Confirmed ; Classification: Patient Stated ; Code: 102371089 ; Contributor System: PowerChart ; Last Updated: 11/23/2018 8:03 EDT ; Life Cycle Date: 11/23/2018 ; Life Cycle Status: Active ; Vocabulary: SNOMED CT Pacemaker (SNOMED CT :3523531243 ) Name of Problem: Pacemaker ; Recorder: Rere Ramos RN; Confirmation: Confirmed ; Classification: Patient Stated ; Code: 4739578338 ; Contributor System: PowerChart ; Last Updated: 07/01/2021 12:57 EDT ; Life Cycle Date: 07/01/2021 ; Life Cycle Status: Active ; Vocabulary: SNOMED CT PAD (peripheral artery disease) (SNOMED CT :4219863530 ) Name of Problem: PAD (peripheral artery disease) ; Recorder: ELAINE CHOI RN; Confirmation: Confirmed ; Classification: Patient Stated ; Code: 5687355237 ; Contributor System: [employer] ; Last Updated: 11/23/2018 8:00 EDT ; Life Cycle Date: 11/23/2018 ; Life Cycle Status: Active ; Vocabulary: SNOMED CT Stented coronary artery (SNOMED CT :3636665128 ) Name of Problem: Stented coronary artery ; Recorder: Rere Ramos RN; Confirmation: Confirmed ; Classification: Patient Stated ; Code: 9155893910 ; Contributor System: [employer] ; Last Updated: 07/01/2021 12:57 EDT ; Life Cycle Date: 07/01/2021 ; Life Cycle Status: Active ; Vocabulary: SNOMED CT Diagnoses(Active) Cardiac device problem Date: 07/16/2021 ; Diagnosis Type: Reason For Visit ; Confirmation: Complaint of ; Clinical Dx: Cardiac device problem ; Classification: Medical ; Clinical Service: Emergency medicine ; Code: PNED ; Probability: 0 ; Diagnosis Code: [id number] ED Height and Weight Height Source : Stated Height Entry Format : [place] Height, Feet : 5 ft(Converted to: 152 cm, 60 Inch) Height, Inches : 6 Inch(Converted to: 0 ft 6 Inch, 15.24 cm) Clinical Height : 167.64 cm Weight Source, ED : Critical estimated dosing weight Weight Entry Format : [place] Weight, Pounds : 136 lb Clinical Dosing Weight : 61.82 kg Body Surface Area (BSA) : 1.7 m2 Body Mass Index : 22 kg/m2 Cornish Body Weight (IBW) : 58.88 kg TYREE CERNA RN - 07/16/2021 12:06 EDT Electronically signed by Alberto Da Silva Conversion Campaign Marketing Manager Cerner at 05/27/2022 9:09 PM CDT documented in this encounter Plan of Treatment Not on file documented as of this encounter Visit Diagnoses Not on filedocumented in this encounter Care Teams Harness Placer Relationship Specialty Start Date End Date Linh Doty DO [address] [place] [address] PCP - General Family Medicine 11/04/22 Lizzie Alves PA-C [address], [facility] [address] [place] [address] Hospitalist Cardiology 05/27/23 Kaushik Mariscal MD [address] [facility] [address] [place] [address] Burlapper Electrophysiology 11/18/23 documented as of this encounter
--- OUTSIDE RECORDS SUMMARY | 2024-07-27 14:21 | XMS_ITS | Encounter Summary ---
Author Organization [employer] [facility] Init iatives Address [address] [place] [address] Care Team Providers Care Advertising Photographer Name Role Phone Lalitha Linhkarthikeyan Mazariegos DO Primary Care Provider [phone] Lizzie Alves PA-C Unavailable [phone] Kaushik Mariscal MD Unavailable Encounter Details Date Type Department Care Team (Late st Contact Info) Description 07/24/2021 Transcribed Document [facility] [place] Family Medicine [address] [place] [address] ProviderChad MD [address] [place] [address] Social History Tobacco Use Types Packs/Day Years Used Date Smoking Tobacco: Never Assessed Comments Unknown Sex and Gender Information Value Date Recorded Sex Assigned at Not on file Legal Sex Female 3:27 PM CDT Gender Identity Not on file Sexual Orientation Not on file documented as of this encounter Miscellaneous Notes * Cerner Conversion Note - Chad ProviderMD - 07/24/2021 12:00 PM CDT [facility] Main OR PACU Summary Primary Physician: ABBE HOLLEY MD-[facility] Finalized Date/Time: 07/24/21 16:21:14 Pt. Name: GAGAN MENDOZA Shy /Sex: 1965 Female Med Rec #: [id number] Physician: REYNALDO CURIEL MD-[facility] Financial #: [id number] Pt. Type: I Room/Bed: 401/1 Admit/Disch: 07/16/21 14:13:00 - Institution: [facility] Main OR PACU I Case Times Entry 1 In PACU I 07/24/21 14:50:00 Ready for PACU 07/24/21 15:44:00 Discharge Discharge from PACU 07/24/21 15:45:00 I Last Modified By: Rebecca Sweet RN-PATIENT CARE BEDSIDE NON-EXEMPT 07/24/21 16:20:58 [facility] Main OR PACU Acuity Entry 1 Start Time 07/24/21 15:44:00 Stop Time 07/24/21 15:45:00 Acuity Level [facility] PACU Acuity I Last Modified By: Rebecca Sweet RN-PATIENT CARE BEDSIDE NON-EXEMPT 07/24/21 16:21:13 Finalized By: Rebecca Sweet RN-PATIENT CARE BEDSIDE NON-EXEMPT Document Signatures Signed By: Rebecca Sweet RN-PATIENT CARE BEDSIDE NON-EXEMPT 07/24/21 16:21 documented in this encounter Plan of Treatment Not on file documented as of this encounter Visit Diagnoses Not on filedocumented in this encounter Care Teams Advertising Photographer Relationship Specialty Start Date End Date Linh Doty, [address] [facility] [address] [place] [address] PCP - General Family Medicine 11/04/22 Lizzie Alves PA-C [address] [place] [address], [facility] [address] [place] [address] Hospitalist Cardiology 05/27/23 Kaushik Mariscal MD [address] [facility] [address] [place] [address] Paraffin Plant Sweater Operator Electrophysiology 11/18/23 documented as of this encounter
--- OUTSIDE RECORDS SUMMARY | 2024-07-27 14:21 | XMS_ITS | Encounter Summary ---
Author Organization [employer] [facility] Init iatives Address [address] [place] [address] Care Team Providers Care Assistant To The President Name Role Phone Linh Doty DO Primary Care Provider [phone] Lizzie Alves PA-C Unavailable [phone] Kaushik Mariscal MD Unavailable Encounter Details Date Type Department Care Team (Late st Contact Info) Description 11/23/2018 Transcribed Document [facility] [place] Family Medicine [facility] [place] [address] ProviderChad MD [address] [place] [address] Social History Tobacco Use Types Packs/Day Years Used Date Smoking Tobacco: Never Assessed Comments Unknown Sex and Gender Information Value Date Recorded Sex Assigned at Not on file Legal Sex Female 3:27 PM CDT Gender Identity Not on file Sexual Orientation Not on file documented as of this encounter Miscellaneous Notes * Cerner Conversion Note - Chad ProviderMD - 11/23/2018 8:12 AM CDT Event Note Entered On: 11/23/2018 8:12 EDT Performed On: 11/23/2018 8:12 EDT by ELAINE CHOI RN Event Note Event Location : Other: 0812- plt result per lab - 159. pre procedure - informed transporter to cath laband written on lab sheet pre procedure. ELAINE CHOI RN - 11/23/2018 8:12 EDT documented in this encounter Plan of Treatment Not on file documented as of this encounter Visit Diagnoses Not on filedocumented in this encounter Care Teams Assistant To The President Relationship Specialty Start Date End Date Linh Doty DO [address] [facility] [address] [place] [address] PCP - General Family Medicine 11/04/22 Lizzie Alves PA-C [address] [facility], [facility] [address] [place] [address] Hospitalist Cardiology 05/27/23 Kasuhik Mariscal MD [address] [facility] [address] [place] [address] Certified Medical Assistant Electrophysiology 11/18/23 documented as of this encounter
--- OUTSIDE RECORDS SUMMARY | 2024-07-27 14:21 | XMS_ITS | Encounter Summary ---
Author Organization [employer] [facility] Init iatives Address [address] [place] [address] Care Team Providers Care Desk Pen Set Assembler Name Role Phone Linh Doty DO Primary Care Provider [phone] Lizzie Alves PA-C Unavailable [phone] Kaushik Mariscal MD Unavailable Encounter Details Date Type Department Care Team (Late st Contact Info) Description 07/24/2021 Transcribed Document [facility] [place] Family Medicine [address] [place] [address] ProviderChad MD [address] [place] [address] Social History Tobacco Use Types Packs/Day Years Used Date Smoking Tobacco: Never Assessed Comments Unknown Sex and Gender Information Value Date Recorded Sex Assigned at Not on file Legal Sex Female 3:27 PM CDT Gender Identity Not on file Sexual Orientation Not on file documented as of this encounter Miscellaneous Notes * Cerner Conversion Note - Chad ProviderMD - 07/24/2021 2:00 AM CDT Painter Mirror Details Entered On: 07/24/2021 4:47 EDT Performed On: 07/24/2021 2:00 EDT by CHICO MARLOW RN Order Details Transport Mode Order Detail : Stretcher/Gurney Isolation Precautions Order Detail : Standard Precautions Order Detail : 0 IV Order Detail : 1 Oxygen Order Detail : 1 Nurse Collect Order Detail : 0 Lift/Transfer : Minimal Central Line Order Detail : No Room Service : Appropriate Arterial Line : No Patient Needs Meds Crushed/Liquid : No CHICO MARLOW, RN - 07/24/2021 4:44 EDT Electronically signed by Rekha [facility] Conversion Manager [employer] Cerner at 05/27/2022 9:19 PM CDT documented in this encounter Plan of Treatment Not on file documented as of this encounter Visit Diagnoses Not on filedocumented in this encounter Care Teams Desk Pen Set Assembler Relationship Specialty Start Date End Date Linh Doty, 8 [facility] [address] [place] [address] PCP - General Family Medicine 11/04/22 Lizzie Alves PA-C [address] [place] [address], [facility] [address] [place] [address] Hospitalist Cardiology 05/27/23 Kaushik Mariscal MD [address] [facility] [address] [place] [address] Formation Fracturing Operator Electrophysiology 11/18/23 documented as of this encounter
--- OUTSIDE RECORDS SUMMARY | 2024-07-27 14:21 | XMS_ITS | Encounter Summary ---
Author Organization [employer] [facility] Init iatives Address [address] [place] [address] Care Team Providers Care Care Taker Name Role Phone Linh Doty DO Primary Care Provider [phone] Lizzie Alves PA-C Unavailable [phone] Kaushik Mariscal MD Unavailable Encounter Details Date Type Department Care Team (Late st Contact Info) Description 07/17/2021 Transcribed Document [facility] [place] [address] [place] [address] ProviderChad MD [address] [place] [address] Social History Tobacco Use Types Packs/Day Years Used Date Smoking Tobacco: Never Assessed Comments Unknown Sex and Gender Information Value Date Recorded Sex Assigned at Not on file Legal Sex Female 3:27 PM CDT Gender Identity Not on file Sexual Orientation Not on file documented as of this encounter Miscellaneous Notes * Cerner Conversion Note - Chad ProviderMD - 07/17/2021 5:00 PM CDT Chart Check - Review Order Profile Entered On: 07/17/2021 20:02 EDT Performed On: 07/17/2021 17:00 EDT by Anita Ko, RN Chart Check Powerplans Initiated/Discontinued as Appropriate : Yes All Active Orders Reviewed : Yes Anita Ko, RN - 07/17/2021 20:01 EDT documented in this encounter Plan of Treatment Not on file documented as of this encounter Visit Diagnoses Not on filedocumented in this encounter Care Teams Care Taker Relationship Specialty Start Date End Date Linh Doty, 8 [facility] [address] [place] [address] PCP - General Family Medicine 11/04/22 Lizzie Alves PA-C [address] [place] [address], [facility] [address] [place] [address] Hospitalist Cardiology 05/27/23 Kaushik Mariscal MD [address] [facility] [address] [place] [address] Psychometrist Electrophysiology 11/18/23 documented as of this encounter
--- OUTSIDE RECORDS SUMMARY | 2024-07-27 14:21 | XMS_ITS | Encounter Summary ---
Author Organization [employer] [facility] Init iatives Address [address] [place] [address] Care Team Providers Care Nurse Practitioner Physician Assistant Name Role Phone Linh Doty DO Primary Care Provider [phone] Lizzie Alves PA-C Unavailable [phone] Kaushik Mariscal MD Unavailable Encounter Details Date Type Department Care Team (Late st Contact Info) Description 11/23/2018 Transcribed Document [facility] [place] [facility] [place] [address] Chad Merchant MD [address] [place] [address] Social History Tobacco Use Types Packs/Day Years Used Date Smoking Tobacco: Never Assessed Comments Unknown Sex and Gender Information Value Date Recorded Sex Assigned at Not on file Legal Sex Female 3:27 PM CDT Gender Identity Not on file Sexual Orientation Not on file documented as of this encounter Miscellaneous Notes * Cerner Conversion Note - Chad Merchant MD - 11/23/2018 1:14 PM CDT Patient Education Materials Follows: Groin Site Care Refer to this sheet in the next few weeks. These instructions provide you with information on caring for yourself after your procedure. Your caregiver may also give you more specific instructions. Your treatment has been planned according to current medical practices, but problems sometimes occur. Call your caregiver if you have any problems or questions after your procedure. HOME CARE INSTRUCTIONS ? You may shower 24 hours after the procedure. Remove the bandage (dressing ) and gently wash the site with plain soap and water. Gently pat the site dry. ? Do not apply powder or lotion to the site. ? Do not sit in a bathtub, swimming pool, or whirlpool for 5 to 7 days. ? No bending, squatting, or lifting anything over 10 pounds (4.5 kg) as directed by your caregiver. ? Inspect the site at least twice daily. ? Do not drive home if you are discharged the same day of the procedure. Have someone else drive you. ? You may drive 24 hours after the procedure unless otherwise instructed by your caregiver. What to expect: ? Any bruising will usually fade within 1 to 2 weeks. ? Blood that collects in the tissue (hematoma ) may be painful to the touch. It should usually decrease in size and tenderness within 1 to 2 weeks. SEEK IMMEDIATE MEDICAL CARE IF: ? You have unusual pain at the groin site or down the affected leg. ? You have redness, warmth, swelling, or pain at the groin site. ? You have drainage (other than a small amount of blood on the dressing). ? You have chills. ? You have a fever or persistent symptoms for more than 72 hours. ? You have a fever and your symptoms suddenly get worse. ? Your leg becomes pale, cool, tingly, or numb. ? You have heavy bleeding from the site. Hold pressure on the site. Document Released: 02/28/2011 Document Revised: 04/19/2012 Document Reviewed: 02/28/2011 ExitCare? Patient Information ?2013 [employer] Cerebral Angiogram, Care After This sheet gives you information about how to care for yourself after your procedure. Your health care provider may also give you more specific instructions. If you have problems or questions, contact your health care provider. What can I expect after the procedure? After your procedure, it is common to have: ??? Bruising and tenderness at the catheter insertion site. ??? A mild headache. Follow these instructions at home: Insertion site care ??? Follow instructions from your health care provider about how to take care of the insertion site. Make sure you: ? Wash your hands with soap and water before you change your bandage (dressing). If soap and water are not available, use hand stone hand. ? Change your dressing as told by your health care provider. ? Leave stitches (sutures), skin glue, or adhesive strips in place. These skin closures may need to stay in place for 2 weeks or longer. If adhesive strip edges start to loosen and curl up, you may trim the loose edges. Do not remove adhesive strips completely unless your health care provider tells you to do that. ??? Do not apply powder or lotion to the site. ??? Do not take baths, swim, or use a hot tub until your health care provider says it is okay to do so. ??? You may shower 24?48 hours after the procedure or as told by your health care provider. ? Gently wash the site with plain soap and water. ? Pat the area dry with a clean towel. ? Do not rub the site. This may cause bleeding. ??? Check your incision area every day for signs of infection. Check for: ? Redness, swelling, or pain. ? Fluid or blood. ? Warmth. ? Pus or a bad smell. Activity ??? Rest as told by your health care provider. ??? Do not lift anything that is heavier than 10 lb (4.5 kg), or the limit that your health care provider tells you, until he or she says that it is safe. ??? Do not drive for 24 hours if you were given a medicine to help you relax (sedative). ??? Do not drive or use heavy machinery while taking prescription pain medicine. General instructions ??? Return to your normal activities as told by your health care provider. Ask your health care provider what activities are safe for you. ??? If the catheter site starts to bleed, lie flat and put pressure on the site. ??? Drink enough fluid to keep your urine clear or pale yellow. This helps flush the contrast dye from your body. ??? Take mnnz-lzy-bxbzbdh and prescription medicines only as told by your health care provider. ??? Keep all follow-up visits as directed by your health care provider. This is important. Contact a health care provider if: ??? You have a fever or chills. ??? You have redness, swelling, or more pain around your insertion site. ??? You have fluid or blood coming from your insertion site. ??? The insertion site feels warm to the touch. ??? You have pus or a bad smell coming from your insertion site. ??? You have more bruising around the insertion site. ??? Blood collects in the tissue around the catheter site (hematoma), and the hematoma may be painful to the touch. Get help right away if: ??? You have vision changes or loss of vision. ??? The catheter insertion area swells very fast. ??? You have numbness or weakness on one side of your body. ??? You have trouble talking, or you have slurred speech or cannot speak (aphasia). ??? You feel confused or have trouble remembering. ??? You have severe pain at the catheter insertion area. ??? The catheter insertion area is bleeding, and the bleeding does not stop after 30 minutes of holding steady pressure on the site. ??? The arm or leg where the catheter was inserted is numb, tingling, or cold. ??? You have chest pain. ??? You have trouble breathing. ??? You have a rash. ??? You have trouble using the arm or leg where the catheter was inserted. These symptoms may represent a serious problem that is an emergency. Do not wait to see if the symptoms will go away. Get medical help right away. Call your local emergency services (911 in [place] Do not drive yourself to the hospital. Summary ??? After your procedure, it is common to have bruising and tenderness at the site where the catheter was inserted. ??? If your catheter insertion site begins to bleed, put direct pressure on it until the bleeding stops. ??? After your procedure, it is important to rest and drink plenty of fluids. ??? Return to your normal activities as told by your health care provider. Ask your health care provider what activities are safe for you. This information is not intended to replace advice given to you by your health care provider. Make sure you discuss any questions you have with your health care provider. Document Released: 06/12/2014 Document Revised: 03/02/2017 Document Reviewed: 03/02/2017 [employer] Interactive Patient Education ? 2019 [employer] Moderate Conscious Sedation, Adult, Care After These instructions provide you with information about caring for yourself after your procedure. Your health care provider may also give you more specific instructions. Your treatment has been planned according to current medical practices, but problems sometimes occur. Call your health care provider if you have any problems or questions after your procedure. What can I expect after the procedure? After your procedure, it is common: ??? To feel sleepy for several hours. ??? To feel clumsy and have poor balance for several hours. ??? To have poor judgment for several hours. ??? To vomit if you eat too soon. Follow these instructions at home: For at least 24 hours after the procedure: ??? Do not: ? Participate in activities where you could fall or become injured. ? Drive. ? Use heavy machinery. ? Drink alcohol. ? Take sleeping pills or medicines that cause drowsiness. ? Make important decisions or sign legal documents. ? Take care of children on your own. ??? Rest. Eating and drinking ??? Follow the diet recommended by your health care provider. ??? If you vomit: ? Drink water, juice, or soup when you can drink without vomiting. ? Make sure you have little or no nausea before eating solid foods. General instructions ??? Have a responsible adult stay with you until you are awake and alert. ??? Take lzej-dfi-bzzxims and prescription medicines only as told by your health care provider. ??? If you smoke, do not smoke without supervision. ??? Keep all follow-up visits as told by your health care provider. This is important. Contact a health care provider if: ??? You keep feeling nauseous or you keep vomiting. ??? You feel light-headed. ??? You develop a rash. ??? You have a fever. Get help right away if: ??? You have trouble breathing. This information is not intended to replace advice given to you by your health care provider. Make sure you discuss any questions you have with your health care provider. Document Released: 11/16/2013 Document Revised: 06/30/2016 Document Reviewed: 05/17/2016 Else[employer] Interactive Patient Education ? 2019 [employer] documented in this encounter Plan of Treatment Not on file documented as of this encounter Visit Diagnoses Not on filedocumented in this encounter Care Teams Nurse Practitioner Physician Assistant Relationship Specialty Start Date End Date Linh Doty, DO 8 [facility] [address] [place] [address] PCP - General Family Medicine 11/04/22 Lizzie Alves PA-C [address]01 [facility] [place] [address] [place] [address] Hospitalist Cardiology 05/27/23 Kaushik Mariscal MD [address]01 [facility] [address] [place] [address] Monotype Operator Electrophysiology 11/18/23 documented as of this encounter
--- OUTSIDE RECORDS SUMMARY | 2024-07-27 14:21 | XMS_ITS | Encounter Summary ---
Author Organization [employer] [facility] Init iatives Address [address] [place] [address] Care Team Providers Care Hand Fretted Instrument Maker Name Role Phone Linh Doty DO Primary Care Provider [phone] Lizzie Alves PA-C Unavailable [phone] Kaushik Mariscal MD Unavailable Encounter Details Date Type Department Care Team (Late st Contact Info) Description 07/23/2021 Transcribed Document [facility] [place] Family Medicine [address] [place] [address] ProviderChad MD [address] [place] [address] Social History Tobacco Use Types Packs/Day Years Used Date Smoking Tobacco: Never Assessed Comments Unknown Sex and Gender Information Value Date Recorded Sex Assigned at Not on file Legal Sex Female 3:27 PM CDT Gender Identity Not on file Sexual Orientation Not on file documented as of this encounter Miscellaneous Notes * Cerner Conversion Note - Chad ProviderMD - 07/23/2021 2:00 AM CDT Manufacturing Sr Engineer Details Entered On: 07/23/2021 2:24 EDT Performed On: 07/23/2021 2:00 EDT by Jessica Recinos Lpn Order Details Patient Needs Meds Crushed/Liquid : No Jessica Recinos Lpn - 07/23/2021 2:24 EDT documented in this encounter Plan of Treatment Not on file documented as of this encounter Visit Diagnoses Not on filedocumented in this encounter Care Teams Hand Fretted Instrument Maker Relationship Specialty Start Date End Date Linh Doty, 8 [facility] [address] [place] [address] PCP - General Family Medicine 11/04/22 Lizzie Alves PA-C 1401 [facility] [address] [place] [address] Hospitalist Cardiology 05/27/23 Kaushik Mariscal MD [address] [facility] [address] [place] [address] Ground Defence Officer Electrophysiology 11/18/23 documented as of this encounter
--- OUTSIDE RECORDS SUMMARY | 2024-07-27 14:21 | XMS_ITS | Encounter Summary ---
Author Organization [employer] Address [address] [place] [place] [address] Care Team Providers Care Appliance Line Assembler Name Role Phone Linh Doty DO Primary Care Provider [phone] Lizzie Alves PA-C Unavailable [phone] Kaushik Mariscal MD Unavailable Reason for Referral * Echocardiography (Routine) - Closed Specialty Diagnoses / Procedures Referred By Contac t Referred To Contact Diagnoses Nonspecific abnormal electrocardiogram (ECG) (EKG) Disease of cardiovascular system Essential hypertension, malignant Procedures ECHO COMPLETE (DOPPLER / COLOR) W OR WO CONTRAST Lenka Benavidez MD [address] [place] [address] Phone: tel: fax: Referral ID Status Reason Start Date Expiration Date Visits Re quested Visits Authorized [id number] Closed 11/05/2021 01/30/2022 1 1 Encounter Details Date Type Department Care Team (Late st Contact Info) Description 11/01/2021 Outside Orders [facility] Central Scheduling [address] [place] [address] Lenka Benavidez MD [address] [place], [place] [id number] Nonspecific abnormal electrocardiogram (ECG) (EKG) (Primary Dx); Disease of cardiovascular system; Essential hypertension, malignant Social History Tobacco Use Types Packs/Day Years Used Date Smoking Tobacco: Never Assessed Comments Unknown Sex and Gender Information Value Date Recorded Sex Assigned at Not on file Legal Sex Female 3:27 PM CDT Gender Identity Not on file Sexual Orientation Not on file documented as of this encounter Plan of Treatment Not on file documented as of this encounter Results * ECHO COMPLETE (DOPPLER / COLOR) W CONTRAST (11/18/2021 5:33 PM EDT) Anatomical Region Laterality Modality Heart Vascular Ultraso und Narrative 01/05/2024 2:12 PM EST Images from the original result were not included. us Lenka Benavidez MD CV ECHO ORDERABLES Final Result documented in this encounter Visit Diagnoses Diagnosis Nonspecific abnormal electrocardiogram (ECG) (EKG)- Primary Disease of cardiovascular system Unspecified cardiovascular disease Essential hypertension, malignant Nonspecific abnormal electrocardiogram (ECG) (EKG) Disease of cardiovascular system Unspecified cardiovascular disease Essential hypertension, malignant documented in this encounter Care Teams Appliance Line Assembler Relationship Specialty Start Date End Date Linh Doty, DO [address] [facility] [address] [place] [address] PCP - General Family Medicine 11/04/22 Lizzie Alves PA-C [address] [facility], [facility] [address] [place] [address] Hospitalist Cardiology 05/27/23 Kaushik Mariscal MD [address] [facility] [address] [place], [place] [id number] Gis Mapping Technician Electrophysiology 11/18/23 documented as of this encounter
--- OUTSIDE RECORDS SUMMARY | 2024-07-27 14:21 | XMS_ITS | Encounter Summary ---
Author Organization [employer] [facility] [employer] Address [address] [place] [address] Care Team Providers Care Textile Machine Mechanic Name Role Phone Linh Doty DO Primary Care Provider [phone] Lizzie Alves PA-C Unavailable [phone] Kaushik Mariscal MD Unavailable Encounter Details Date Type Department Care Team (Late st Contact Info) Description 08/27/2021 Transcribed Document [facility] [place] Family Medicine [facility] [place] [address] ProviderChad MD [address] [place] [address] Social History Tobacco Use Types Packs/Day Years Used Date Smoking Tobacco: Never Assessed Comments Unknown Sex and Gender Information Value Date Recorded Sex Assigned at Not on file Legal Sex Female 3:27 PM CDT Gender Identity Not on file Sexual Orientation Not on file documented as of this encounter Miscellaneous Notes * Cerner Conversion Note - Chad Merchant MD - 08/27/2021 11:04 AM CDT Stroke/Warfarin Instructions Entered On: 08/27/2021 11:04 EDT Performed On: 08/27/2021 11:04 EDT by Mayra Lyons Virtual RN Stroke/Warfarin Instructions Stroke/TIA Discharge Ins : N/A Warfarin Discharge Ins : N/A Mayra Lyons Virtual RN - 08/27/2021 11:04 EDT Education Topics: Anticoagulant Education Anticoagulant : Anticoagulant other than warfarin Compliance Issues *Q : Verbalizes understanding Diet *Q : Verbalizes understanding Adverse drug reactions/interactions *Q : Verbalizes understanding Action/Interaction with Other Drugs : Verbalizes understanding Follow-up care/monitoring *Q : Verbalizes understanding Follow-up Care Details : Physician's office/clinic Mayra Lyons Virtual RN - 08/27/2021 11:04 EDT Electronically signed by [facility], [facility] Conversion Manager Bank Cerner at 05/27/2022 9:09 PM CDT documented in this encounter Plan of Treatment Not on file documented as of this encounter Visit Diagnoses Not on filedocumented in this encounter Care Teams Textile Machine Mechanic Relationship Specialty Start Date End Date Linh Doty, DO [address] [facility] [address] [place] [address] PCP - General Family Medicine 11/04/22 Lizzie Alves PA-C [address] [place] [address], [facility] [address] [place] [address] Hospitalist Cardiology 05/27/23 Kaushik Mariscal MD [address] [facility] [address] [place] [address] Gas Distribution Supervisor Electrophysiology 11/18/23 documented as of this encounter
--- OUTSIDE RECORDS SUMMARY | 2024-07-27 14:21 | XMS_ITS | Encounter Summary ---
Author Organization [employer] [facility] [employer] Address [address] [place] [address] Care Team Providers Care Prosthetic Lab Technician Name Role Phone Linh Doty DO Primary Care Provider [phone] Lizzie Alves PA-C Unavailable [phone] Kaushik Mariscal MD Unavailable Encounter Details Date Type Department Care Team (Late st Contact Info) Description 07/24/2021 Transcribed Document [facility] [place] [address] [place] [address] ProviderChad MD [address] [place] [address] Social History Tobacco Use Types Packs/Day Years Used Date Smoking Tobacco: Never Assessed Comments Unknown Sex and Gender Information Value Date Recorded Sex Assigned at Not on file Legal Sex Female 3:27 PM CDT Gender Identity Not on file Sexual Orientation Not on file documented as of this encounter Miscellaneous Notes * Cerner Conversion Note - Chad ProviderMD - 07/24/2021 5:00 AM CDT Chart Check - Review Order Profile Entered On: 07/24/2021 4:47 EDT Performed On: 07/24/2021 5:00 EDT by CHICO MARLOW, RN Chart Check All Active Orders Reviewed : Yes CHICO MARLOW, RN - 07/24/2021 4:47 EDT Electronically signed by Rek[facility] Conversion Burial Vault Setter Cerner at 05/27/2022 9:11 PM CDT documented in this encounter Plan of Treatment Not on file documented as of this encounter Visit Diagnoses Not on filedocumented in this encounter Care Teams Prosthetic Lab Technician Relationship Specialty Start Date End Date Linh Doty, 8 [facility] [address] [place] [address] PCP - General Family Medicine 11/04/22 Lizzie Alves PA-C [address] [facility], [facility] [address] [place] [address] Hospitalist Cardiology 05/27/23 Kaushik Mariscal MD [address] [facility] [address] [place] [address] Assistant County Engineer Electrophysiology 11/18/23 documented as of this encounter
--- OUTSIDE RECORDS SUMMARY | 2024-07-27 14:21 | XMS_ITS | Encounter Summary ---
Author Organization [employer] [facility] [employer] [facility] Address [address] [place] [address] Care Team Providers Care Inspectors And Regulatory Officers Name Role Phone Lalitha Linh Delilah DAVIS Primary Care Provider [phone] Lizzie Alves PA-C Unavailable [phone] Dion Mariscal MD Unavailable Encounter Details Date Type Department Care Team (Late st Contact Info) Description 07/17/2021 Transcribed Document [facility] [place] Family Medicine [address] [place] [address] ProviderChad MD [address] [place] [address] Social History Tobacco Use Types Packs/Day Years Used Date Smoking Tobacco: Never Assessed Comments Unknown Sex and Gender Information Value Date Recorded Sex Assigned at Not on file Legal Sex Female 3:27 PM CDT Gender Identity Not on file Sexual Orientation Not on file documented as of this encounter Miscellaneous Notes * Cerner Conversion Note - Chad Merchant MD - 07/17/2021 8:50 AM CDT Patient: GAGAN MENDOZA Age: 55 [...] Daily rosuvastatin: 10 mg, Oral, At Bedtime topiramate: 12.5 mg, Oral, BID vancomycin + Sodium Chloride 0.9% intravenous solution 250 mL: 1,000 mg, 250 mL/Hr, IV Piggyback, [id number] Documented Medications Documented Plavix 75 mg oral [...] 50 mcg inhalation powder: 1 Puff, Inhalation, [id number], rinse mouth and throat after use, 30 [...] 50 mcg inhalation powder 1 Puff, Inhalation, [id number] folic acid 1 mg oral tablet 1 [...] = 1 Cap, Oral, Weekly , Medications (21) Active Scheduled: (14) carvedilol 12.5 mg tab 12.5 mg 1 [...] Cap, Oral, BID topiramate 25 mg tab 12.5 mg 0.5 Tab, Oral, BID vancomycin + NaCl 0.9% 250 mL 1,000 mg, IV Piggyback, [id number] Continuous: (0) PRN: (7) acetaminophen 325 mg [...] All Problems High cholesterol / SNOMED CT 71727119 / Confirmed PAD (peripheral artery disease) / SNOMED CT 8040433833 / Confirmed Chronic CHF / SNOMED CT 298695515 / Confirmed Current smoker / SNOMED CT 486032760 / Confirmed Arteriosclerosis / SNOMED CT 080168143 / Confirmed Intermittent claudication / SNOMED CT 457094515 / Confirmed Cardiomyopathy / SNOMED CT 279582886 / Confirmed History of OR (myocardial infarction) / SNOMED CT 4204443174 / Confirmed Pacemaker / SNOMED CT 4734149887 / Confirmed Stented coronary artery / SNOMED CT 7860789791 / Confirmed Gout / SNOMED CT 581930047 / Confirmed At risk for sleep apnea / IMO 32752633 / Confirmed Resolved: History of ventricular tachycardia / SNOMED CT 6643567181 ICD placed in past for arrythmia. Canceled: HTN (hypertension) / SNOMED CT 4539378258 Canceled: COPD (chronic obstructive pulmonary disease) / SNOMED CT 30697970 Canceled: At risk for sleep apnea / IMO 19815510 Canceled: History of ischemic cardiomyopathy / SNOMED CT 801241406 Canceled: Abdominal aortic stenosis / SNOMED CT 567121958 Canceled: Shortness of breath / SNOMED CT 945665722, Active Problems (12) Arteriosclerosis At risk for sleep apnea Cardiomyopathy Chronic CHF Current smoker Gout High cholesterol History of OR (myocardial infarction) Intermittent claudication Pacemaker PAD (peripheral artery disease) Stented coronary artery Objective Intake and Output 24 hour intake, 24 hour output VS/Measurements Vitals Signs (last 24 hrs) Last Charted Minimum Maximum Temp 98.4 (JUL 17 03:00) 98.0 (JUL 16 12:06) 98.0 (JUL 16 12:06) Mon HR 92 (JUL 17 08:07) 68 (JUL 17 04:00) 92 (JUL 17 08:07) Periph HR 78 (JUL 16 12:06) 78 (JUL 16 12:06) 78 (JUL 16 12:06) Resp Rate H 38 (JUL 17 08:07) 14 (JUL 16 15:00) H 38 (JUL 17 08:07) SBP H 148 (JUL 17 08:07) 115 (JUL 16 23:11) H 192 (JUL 16 14:00) DBP 73 (JUL 17 08:07) 65 (JUL 16 23:11) H 110 (JUL 16 15:00) MAP 105 (JUL 17 08:07) 84 (JUL 16 23:11) 128 (JUL 16 14:30) SpO2 96 (JUL 17 08:07) L 85 (JUL 16 13:30) 98 (JUL 17 03:00) Results Review Telemetry - SR General: Alert and oriented. Eye: Pupils are [...] Normal range of motion. Integumentary: Warm, Dry, [place]. Neurologic: Alert, Oriented. Psychiatric: Cooperative, Appropriate mood & affect. JUL 17 01:40 138 107 10 / 93 3.8 32 0.80 \ JUL 17 01:40 \ H 16.9 / 8.4 L 132 / H 53.4 \ Telemetry/ECG I personally reviewed the last [...] cm AO Root:2.99 cm LVPWd: 1.35 cm Cardiac Markers (Current Encounter/Past 24 Hours) CK 56 Units/Liter 07/16/2021 18:21 ProBNP 1947 pg/mL AR 07/16/2021 13:15 CR Chest 1 Vw Portable (07/16/2021 13:03) [...] ICD implanted 07/2011 and gen change 07/01/2021 (SJ) *hx LV apical thrombus was on Eliquis - being held currently *CAD - hx JH to LAD (2007); occluded RCA at ostium; patent LAD stent (2011 *hx VT *HTN *HLD *PAD *Ongoing tobacco abuse PLAN; 07/17/2021 Appreciate ID's input. Pocket stable this AM no further draining. will try to save the device from removal 07/16/2021 Labs and telemetry will be ordered. Patient sent from clinic to be admitted by [facility] physician group for IV antibiotics. Will request blood cultures, consult ID, further plans to follow. documented in this encounter Plan of Treatment Not on file documented as of this encounter Visit Diagnoses Not on filedocumented in this encounter Care Teams Inspectors And Regulatory Officers Relationship Specialty Start Date End Date Linh Doty, [address] [facility] [address] [place] [address] PCP - General Family Medicine 11/04/22 Lizzie Alves PA-C [address] [place] [address], [facility] [address] [place] [address] Hospitalist Cardiology 05/27/23 Dion Mariscal MD [address] [facility] [address] [place] [address] Patient Educator Electrophysiology 11/18/23 documented as of this encounter
--- OUTSIDE RECORDS SUMMARY | 2024-07-27 14:21 | XMS_ITS | Encounter Summary ---
Author Organization [employer] [facility] [employer] Address [address] [place] [address] Care Team Providers Care System Planning Engineer Name Role Phone Linh Doty DO Primary Care Provider [phone] Lizzie Alves PA-C Unavailable [phone] Kaushik Mariscal MD Unavailable Encounter Details Date Type Department Care Team (Late st Contact Info) Description 07/23/2021 Transcribed Document [facility] [place] [address] [place] [address] ProviderChad MD [address] [place] [address] Social History Tobacco Use Types Packs/Day Years Used Date Smoking Tobacco: Never Assessed Comments Unknown Sex and Gender Information Value Date Recorded Sex Assigned at Not on file Legal Sex Female 3:27 PM CDT Gender Identity Not on file Sexual Orientation Not on file documented as of this encounter Miscellaneous Notes * Cerner Conversion Note - Chad ProviderMD - 07/23/2021 8:30 PM CDT Spiritual Care Short Form Entered On: 07/23/2021 21:21 EDT Performed On: 07/23/2021 20:30 EDT by Rei Jauregui Chaplain-Non Cert General Information, Spiritual Care Spiritual Care Referred by : Central Scheduler initiated Reason for Visit : Initial Ministry Provided to : Patient, Family/Significant other Intervention/Comment/Summary Points : Pre-surgery visit. Pt appeared to be resting comfortably. Pt's mother at bedside. Spiritual/Emotional Acuity : No Concern Rei Jauregui, Central Scheduler-Non Cert - 07/23/2021 21:20 EDT Electronically signed by Rekha, [facility] Conversion General Store Manager Cerner at 05/27/2022 9:10 PM CDT documented in this encounter Plan of Treatment Not on file documented as of this encounter Visit Diagnoses Not on filedocumented in this encounter Care Teams System Planning Engineer Relationship Specialty Start Date End Date Linh Doty, DO 8 [facility] [address] [place] [address] PCP - General Family Medicine 11/04/22 Lizzie Alves PA-C [address] [place] [address], [facility] [address] [place] [address] Hospitalist Cardiology 05/27/23 Kaushik Mariscal MD [address] [facility] [address] [place] [address] Heel Finisher Electrophysiology 11/18/23 documented as of this encounter
--- OUTSIDE RECORDS SUMMARY | 2024-07-27 14:21 | XMS_ITS | Encounter Summary ---
Author Organization [employer] [facility] Init iatives Address [address] [place] [address] Care Team Providers Care Photographer Motion Picture Name Role Phone Linh William DO Primary Care Provider [phone] Lizzie Alves PA-C Unavailable [phone] Dion Lin MD Unavailable Encounter Details Date Type Department Care Team (Late st Contact Info) Description 08/27/2021 Transcribed Document [facility] Family Medicine [address] [place] [address] ProviderChad MD [address] [place] [address] Social History Tobacco Use Types Packs/Day [...] Merchant MD - 08/27/2021 1:06 PM CDT [facility] [place] [address] LENA MENDOZA :1965 Visit Time:08/26/2021 Your Visit Summary Your Care Team Admitting Physician - DION LIN MD-REJI Attending Physician - DION LIN MD-REJI Primary Care Physician - LINH WILLIAM DO-KRISS Referring Physician - DION LIN MD-CAR Your Diagnosis Ventricular tachycardia, Ventricular tachycardia These [...] UNTIL AFTER YOUR FOLLOW UP WITH DR LIN Discharge Activity: Discharge Activity: No heavy lifting over 10 lbs Diet: Discharge Diet: Resume usual diet as tolerated Wound/Incision Care Instructions: Keep operative site/wound clean and dry. Do not emove Aquacel dressing until seen in clinic in1 week. Driving Restriction: Do Not Drive Follow-Up Appointments Follow Up with PUNEET BROOKS MD-CAR When 10/11/2021 09:00 AM EDT Comments CARDIOLOGY appt made, Bring discharge instructions with you Where: [address] [facility] [address] [place] [address]- Follow Up with LINH WILLIAM DO-FAM When 09/04/2021 10:00 AM EDT Comments PCP appt made, Bring discharge instructions with you Where: [address] [place] [address]- Follow Up with DION LIN When 09/03/2021 02:00 PM EDT Comments wound device check in 1 week scheduled for 09/03/20[address] at [address] Lin Where: [address] [facility] [address] [place] [address]- Business (1) Medications What How Much When Instructions Next Dose cephalexin (Keflex 500 mg oral capsule) 1 Capsule(s) Oral Three Times A Day Duration: 7 Day(s) Pickup at [facility] nicotine (nicotine 14 mg/ 24 hr transdermal film, extended release) 1 Patch(es) TransDermal Every Day Duration: 14 Day(s) Pickup at [facility] acetaminophen-hydrocodone (acetaminophen-HYDROcodone 325 mg-5 mg oral tablet) 1 Tablet(s) Oral Every 8 Hours as needed for for pain carvedilol (carvedilol 12.5 mg oral tablet) 1 Tablet(s) Oral Two Times A Day ergocalciferol (Vitamin D2 1.25 mg (50,000 intl units) oral capsule) 1 Capsule(s) Oral Weekly fluticasone nasal (fluticasone 50 mcg/ inh nasal spray) 2 [place](s) Nasal Every Day as needed for Nasal Congestion furosemide (furosemide 20 mg oral tablet) 1 Tablet(s) Oral Every Day gabapentin (gabapentin 600 mg oral tablet) 1 Tablet(s) Oral Three Times A Day lisinopril (lisinopril 20 mg oral tablet) 1 Tablet(s) Oral Every Day pantoprazole (pantoprazole 40 mg oral delayed release tablet) 1 Tablet(s) Oral Every Day potassium chloride (Potassium Chloride (Eqv-K-Tab) 10 mEq oral tablet, extended release) 1 Tablet(s) Oral Every Day rosuvastatin (Crestor 10 mg oral tablet) 1 Tablet(s) Oral At Bedtime topiramate (topiramate 25 mg oral tablet) 1 Tablet(s) Oral At Bedtime Pharmacy Information [facility]: [address] [place] [address] [address] [place], [place] [phone] Take your medications faithfully. Do NOT skip [...] these instructions at home: Medicines ??? Take vxdn-kvx-ottvhll and prescription medicines only as told by [...] or bruising over the incision. ??? Take wbeh-fec-tylxlcq and prescription medicines only as told by [...] provider. Document Revised: 12/28/2019 Document Reviewed: 12/28/2019 [employer] Patient Education ?? 2020 [employer]. General Anesthesia, Adult, Care After This sheet [...] activities are safe for you. ??? Take olqo-gig-qxnfgwd and prescription medicines only as told by [...] provider. Document Revised: 10/11/2020 Document Reviewed: 05/10/2020 [employer]Drinks4-you Patient Education ?? 2020 [employer]. Heart-Healthy Eating Plan Heart-healthy meal planning includes: [...] Fats and oils Meat fat, or shortening. [place] butter, hydrogenated oils, palm oil, coconut oil, [...] provider. Document Revised: 04/01/2018 Document Reviewed: 03/05/2018 [employer] Patient Education ?? 2020 [employer] Fitness. nicotine (transdermal) (AMADA [place] teen) Belkis Hines C-Q, Nicotine System Kit What is the [...] may report side effects to FDA at 1-477-KII-2289. What other drugs will affect nicotine? Other drugs may affect nicotine transdermal, including prescription and xyzk-kiy-jykwcse medicines, vitamins, and herbal products. Tell your [...] to ensure that the information provided by [employer]. ('[employer]') is accurate, up-to-date, and complete, but no guarantee is made to that effect. Drug information contained herein may be time sensitive. [employer] information has been compiled for use by healthcare practitioners and consumers in the [place] and therefore [employer] does not warrant that uses outside of the [place] are appropriate, unless specifically indicated otherwise. [employer] drug information does not endorse drugs, diagnose patients or recommend therapy. [employer] drug information is an informational resource designed [...] effective or appropriate for any given patient. [employer] does not assume any responsibility for any aspect of healthcare administered with the aid of information [employer] provides. The information contained herein is not intended to cover all possible uses, directions, precautions, warnings, drug interactions, allergic reactions, or adverse effects. If you have questions about the drugs you are taking, check with your doctor, nurse or pharmacist. Copyright 8809-4381 [employer]. Version: 3.01. Revision Date: 09/16/2018. cephalexin (sef [...] may report side effects to FDA at 8-887-VLA-4473. What other drugs will affect cephalexin? Tell your doctor about all your other medicines, especially: ?? metformin; or ?? probenecid. This list is not complete. Other drugs may affect cephalexin, including prescription and jurk-mvg-wxjyzsr medicines, vitamins, and herbal products. Not all [...] to ensure that the information provided by [employer]. ('[employer]') is accurate, up-to-date, and complete, but no guarantee is made to that effect. Drug information contained herein may be time sensitive. Brand[employer] information has been compiled for use by healthcare practitioners and consumers in the [place] and therefore [employer] does not warrant that uses outside of the [place] are appropriate, unless specifically indicated otherwise. [employer]'s drug information does not endorse drugs, diagnose patients or recommend therapy. [employer]'s drug information is an informational resource designed [...] effective or appropriate for any given patient. [facility] does not assume any responsibility for any aspect of healthcare administered with the aid of information [facility] provides. The information contained herein is not intended to cover all possible uses, directions, precautions, warnings, drug interactions, allergic reactions, or adverse effects. If you have questions about the drugs you are taking, check with your doctor, nurse or pharmacist. Copyright 2282-[address]. Version: 10.. Revision Date: 02/13/2020. Emergency Awareness [...] Assistance with quitting is available by contacting 3-355-FPXW-NOW. This is a free resource providing counseling, [...] range between ( 0.0 and 7.0 ) Daggett #: 0.62 K/uL -- Normal range between ( 0.16 and 1.00 ) Eos #: 0.21 x10(3)/uL -- Normal range between ( 0.00 and 0.80 ) Daggett %: 6.9 % -- Normal range between [...] Portable: CR Chest 1 Vw Portable Patient Name:REJI LENA C I have received and understand this information and was given the opportunity to ask questions. Patient/Spiral Tube Winder Name: Patient/Spiral Tube Winder Signature: Relationship to Patient: Clinician/Hospital Spiral Tube Winder Signature: Date: documented in this encounter Plan of Treatment Not on file documented as of this encounter Visit Diagnoses Not on filedocumented in this encounter Care Teams Photographer Motion Picture Relationship Specialty Start Date End Date Linh William, DO [address] [facility] [address] [place] [address] PCP - General Family Medicine 11/04/22 Lizzie Alves PA-C [address] [place] [address] [address] [place] [address] Hospitalist Cardiology 05/27/23 [place] [address] [place] [address] [address] [place] [address] Humanities And Languages Professor Electrophysiology 11/18/23 documented as of this encounter
--- OUTSIDE RECORDS SUMMARY | 2024-07-27 14:21 | XMS_ITS | Encounter Summary ---
Author Organization [employer] [facility] Init iatives Address [address] [place] [address] Care Team Providers Care Portrait Photographer Name Role Phone Linh Doty DO Primary Care Provider Lizzie Alves PA-C Unavailable [phone] Kaushik Mariscal MD Unavailable Encounter Details Date Type Department Care Team (Late st Contact Info) Description 07/17/2021 Transcribed Document [facility] Family [place] [address] ProviderChad MD [address] [place] [address] Social History Tobacco Use Types Packs/Day Years Used Date Smoking Tobacco: Never Assessed Comments Unknown Sex and Gender Information Value Date Recorded Sex Assigned at Not on file Legal Sex Female 3:27 PM CDT Gender Identity Not on file Sexual Orientation Not on file documented as of this encounter Miscellaneous Notes * Cerner Conversion Note - Chad ProviderMD - 07/17/2021 3:13 PM CDT UM Authorization Entered On: 07/17/2021 15:14 EDT Performed On: 07/17/2021 15:13 EDT by Khushi Jones Rn-Utilization Review Primary Insurance Authorization Authorization and Policy Numbers : Insurance 1 Health Plan: [employer] MEDICARE Policy Number: [id number] Authorization Number: Insurance Primary Name : [employer]ED MEDICARE Policy Number: [id number] Authorized Service Begin Date-Primary : 07/18/2021 EDT Historical Authorization Comments-Primary : No Authorization Comments Found Khushi Jones, Rn-Utilization Review - 07/17/2021 15:13 EDT Electronically signed by Rekha [facility] Conversion Junior Web Designer Cerner at 05/27/2022 9:20 PM CDT documented in this encounter Plan of Treatment Not on file documented as of this encounter Visit Diagnoses Not on filedocumented in this encounter Care Teams Portrait Photographer Relationship Specialty Start Date End Date Linh Doty, DO [address] [facility] [address] [place] [address] PCP - General Family Medicine 11/04/22 Lizzie Alves PA-C [address] [place] [address], [facility] [address] [place] [address] Hospitalist Cardiology 05/27/23 Kaushik Mariscal MD [address] [facility] [address] [place] [address] Preventive Maintenance Coordinator Electrophysiology 11/18/23 documented as of this encounter
--- OUTSIDE RECORDS SUMMARY | 2024-07-27 14:21 | XMS_ITS | Encounter Summary ---
Author Organization [employer] [facility] Init iatives Address [address] [place] [address] Care Team Providers Care Lockstitch Lining Maker Name Role Phone Linh Doty DO Primary Care Provider [phone] Lizzie Alves PA-C Unavailable [phone] Kaushik Mariscal MD Unavailable Encounter Details Date Type Department Care Team (Late st Contact Info) Description 07/17/2021 Transcribed Document [facility] Radiology [address] [phone] Yanick Torres MD [address] [place] [address] [address] [place] [address] Social History Tobacco Use Types Packs/Day Years Used Date Smoking Tobacco: Never Assessed Comments Unknown Sex and Gender Information Value Date Recorded Sex Assigned at Not on file Legal Sex Female 3:27 PM CDT Gender Identity Not on file Sexual Orientation Not on file documented as of this encounter Miscellaneous Notes * Cerner Conversion Note - Yanick Torres MD - 07/17/2021 8:48 AM EDT Patient: GAGAN MENDOZA Age: 55 years [...] the ED which identified no worrisome findings Consultations requested -Cardiology service -Infectious disease service Procedures and work-up -Chest x-ray showed no acute cardiopulmonary findings -Blood cultures negative to date Hospital course 07/16 patient seen and examined history and physical done 07/17 patient seen and examined still in the ED awaiting bed placement remains on antibiotic support Hemoglobin hematocrit continue to be monitored closely, cardiology on board, infectious disease on board 07/18 patient 07/19 patient 07/20 Past medical history ischemic cardiomyopathy status post [...] mL: 1,000 mg, 250 mL/Hr, IV Piggyback, [id number] Documented Medications Documented Plavix 75 mg oral [...] 50 mcg inhalation powder: 1 Puff, Inhalation, [id number], rinse mouth and throat after use, 30 [...] 50 mcg inhalation powder 1 Puff, Inhalation, [id number] folic acid 1 mg oral tablet 1 [...] 0.9% 250 mL 1,000 mg, IV Piggyback, [id number] Continuous: (0) PRN: (7) acetaminophen 325 mg [...] At risk for sleep apnea / IMO [id number] / Confirmed High cholesterol / SNOMED CT 72153705 / Confirmed Canceled: At risk for sleep apnea / IMO [id number] Canceled: COPD (chronic obstructive pulmonary disease) / SNOMED CT 43184744 Canceled: HTN (hypertension) / SNOMED CT 1795424225, Active Problems (12) Arteriosclerosis At risk for sleep apnea Cardiomyopathy Chronic CHF Current smoker Gout High cholesterol History of IA (myocardial infarction) Intermittent claudication Pacemaker PAD (peripheral artery disease) Stented coronary artery Objective VS/Measurements Vitals Signs (last 24 hrs) Last Charted Minimum Maximum Temp 98.4 (JUL 17 03:00) 98.0 (JUL 16 12:06) 98.0 (JUL 16 12:06) Mon HR 82 (JUL 17 06:34) 68 (JUL 17 04:00) 86 (JUL 16 15:57) Periph HR 78 (JUL 16 12:06) 78 (JUL 16 12:06) 78 (JUL 16 12:06) Resp Rate 20 (JUL 17 06:34) 14 (JUL 16 15:00) H 31 (JUL 17 05:00) SBP 138 (JUL 17 06:34) 115 (JUL 16 23:11) H 192 (JUL 16 14:00) DBP 72 (JUL 17 06:34) 65 (JUL 16 23:11) H 110 (JUL 16 15:00) MAP 96 (JUL 17 06:34) 84 (JUL 16 23:11) 128 (JUL 16 14:30) SpO2 97 (JUL 17 06:34) L 85 (JUL 16 13:30) 98 (JUL 17 03:00) General: No acute distress. Eye: Normal conjunctiva. Neck: No jugular venous distention. Respiratory: Lungs are clear to auscultation, Respirations are non-labored, Breath sounds are equal. Cardiovascular: Regular rhythm, No gallop, S1+ S2 No S3 or S4 [place].. Gastrointestinal: Soft, Non-tender, Non-distended, Normal bowel sounds. Genitourinary: No costovertebral angle tenderness. Integumentary: Warm, No rash, She has thick dressing in place left upper chest over AICD site distally left arm she has intact neurovascular status with easily palpable radial pulse. Neurologic: Alert, Oriented, No focal deficits. Psychiatric: Cooperative, Appropriate mood & affect. Results Review JUL 17 01:40 138 107 10 / 93 3.8 32 0.80 \ JUL 17 01:40 \ H 16.9 / 8.4 L 132 / H 53.4 \ Impression and Plan Diagnosis -Status post AICD generator change 07/01/2021 now with complicating site hematoma evolving infection -History of coronary artery disease with prior stent -Known COPD with ongoing tobacco abuse -Essential hypertension and dyslipidemia -History of ischemic cardiomyopathy prior AICD implantation -History of left ventricular thrombus -Polycythemia -History of peripheral arterial disease Plan: Patient is being admitted at this time I will obtain blood cultures I will empirically add antibiotic coverage Patient will receive continue cardiac monitoring I am holding Plavix for now Cardiology service already on board in the ED Emphasized tobacco cessation Added nicotine patch, Complex medical problems high risk for poor outcome plan was discussed with the patient 07/17 I will continue antibiotics, monitor for antibiotic related side effects, continue symptomatic and supportive care I will monitor hemoglobin hematocrit closely on daily basis monitor for anemia, patient will need long-term antibiotics per ID Urged to quit tobacco use, continue other home medications, plan was discussed with the patient 07/18 07/19 documented in this encounter Plan of Treatment Not on file documented as of this encounter Visit Diagnoses Not on filedocumented in this encounter Care Teams Lockstitch Lining Maker Relationship Specialty Start Date End Date Linh Doty, DO [address] [facility] [address] [place] [address] PCP - General Family Medicine 11/04/22 Lizzie Alves PA-C [address] [place] [address], [facility] [address] [place] [address] Hospitalist Cardiology 05/27/23 Kaushik Mariscal MD [address] [facility] [address] [place] [address] Temp Recruiter Electrophysiology 11/18/23 documented as of this encounter
--- OUTSIDE RECORDS SUMMARY | 2024-07-27 14:21 | XMS_ITS | Encounter Summary ---
Author Organization [facility] Init iatives Address [address] [place] [address] Care Team Providers Care Dry Cleaning Counter Clerk Name Role Phone Linh Doty DO Primary Care Provider [phone] Lizzie Alves PA-C Unavailable [phone] Kaushik Mariscal MD Unavailable Encounter Details Date Type Department Care Team (Late st Contact Info) Description 07/23/2021 Transcribed Document [facility] Family Medicine [address] [place] [address] ProviderChad MD [address] [place] [address] Social History Tobacco Use Types Packs/Day Years Used Date Smoking Tobacco: Never Assessed Comments Unknown Sex and Gender Information Value Date Recorded Sex Assigned at Not on file Legal Sex Female 3:27 PM CDT Gender Identity Not on file Sexual Orientation Not on file documented as of this encounter Miscellaneous Notes * Cerner Conversion Note - Chad Merchant MD - 07/23/2021 1:15 PM CDT Patient: GAGAN MENDZOA Age: 55 years Sex: Female : 1965 [...] with bloody drainage. Patient was [facility] on [facility]. Post generator change, patient required regluing of device. Despite these interventions she still had persistence with increased bleeding and drainage on 07/15/2021. I was consulted on 07/16/2021 for further evaluation and treatment. No high fevers or chills. 07/17/2021 history reviewed. Still has drainage from ICD site. No fever. Tolerating vancomycin and piperacillin tazobactam, changing to daptomycin and ceftriaxone likely eventually. 07/18/2021 history reviewed. No fever. Drainage decreased from ICD site. Pain controlled. 07/19/2021 history reviewed. No significant drainage left ICD chest wound site. Low-grade fever. Tolerating daptomycin and ceftriaxone continue until 08/15/2021. 07/20/2021 history reviewed. Continues on ceftriaxone and daptomycin for left ICD chest wound infection until 08/15 and reevaluate. No fever. No significant drainage. On 4 L nasal cannula. 07/22/2021 history reviewed. Tolerating daptomycin and ceftriaxone for left chest wound infection with ICD until 08/15. No fever. 07/23/2021 history reviewed. On ceftriaxone and daptomycin until 08/15 and reassess. No fever. May go for explantation of her ICD device left chest. Review of Systems Constitutional: Weakness, Fatigue, No fever, No chills, No sweats. Eye Ear/Nose/Mouth/Throat Respiratory: No shortness of breath, No cough, No sputum production, No hemoptysis. Cardiovascular: No palpitations, No bradycardia. Gastrointestinal: No nausea, No vomiting, No diarrhea, No constipation, No heartburn, No abdominal pain. Genitourinary: No dysuria, No hematuria, No change in urine stream. Hematology/Lymphatics: No bleeding tendency. Endocrine Immunologic Musculoskeletal: No back pain, No neck pain, No joint pain, No muscle pain, No claudication, No decreased range of motion. Integumentary: Negative except as documented in history of present illness, No rash, No abrasions. Neurologic: No confusion, No headache. Psychiatric: No anxiety, No depression. Health Status Current medications: Medications by Classification Antimicrobials cefTRIAXone (Rocephin) - 2 Gram, IV Piggyback, Inj, [id number], infuse over 30 Minute(s), Routine DAPTOmycin + Sodium Chloride 0.9% intravenous solution 50 mL - 400 mg, IV Piggyback, Inj, [id number], infuse over 30 Minute(s), Routine Anticoagulant alteplase 1 mg + syringe 1 Each (Cathflo Activase 1 mg + syr - IV Push, Inj, 1-Time, PRN for Other (See Comment), Routine *Duplicate* Cardiovascular carvedilol - 12.5 mg, Oral, Tab, BID, Routine furosemide (Lasix) - 20 mg, Oral, Tab, Daily lisinopril - 5 mg, Oral, Tab, At Bedtime, Routine Respiratory albuterol-ipratropium (DuoNeb 0.5 mg-2.5 mg/3 mL inhalation - 3 mL, Nebulized Inhalation, Inh, Q8H, STAT GI ondansetron (Zofran) - 4 mg, IV [...] Neuro gabapentin - 600 mg, Oral, Tab, TID, Routine topiramate - 25 mg, Oral, Tab, At Bedtime Pain Meds morphine - 2 mg, IV [...] 10 mEq, Oral, CR Tab, Daily, Routine sodium chloride (Normal Saline Flush) - 10 mL, IntraCATHeter, Inj, Q12H, Routine sodium chloride (sodium chloride 0.9% injectable solution) - 10 mL, IV Push, Inj, Q8H Other nicotine (nicotine 21 mg/24 hr transdermal film, extended re - 1 Patch, TransDermal, Patch, Daily, Routine Undefined Medications alteplase 1 mg + syringe 1 Each (Cathflo Activase 1 mg + syr - IV Push, Inj, 1-Time, PRN for Other (See Comment), Routine hydrALAZINE - 5 mg, IV Push, Inj, Q4H, PRN for Hypertension, Routine Physical Examination VS/Measurements Vital Measurements 07/23/2021 8:26 EDT Oxygen Flow Rate 4 Liter/Min , Vitals Signs (last 24 hrs) Last Charted Minimum Maximum Temp 98.2 (JUL 23:00) 97.9 (JUL 22:) 98.2 (JUL 22:) Mon HR 71 (JUL 23:04) 62 (JUL 23:) 97 (JUL 22 16:) Resp Rate 18 (JUL 23:) 16 (JUL 22:00) 18 (JUL 23:43) SBP 112 (JUL 23:04) 104 (JUL 23:43) 115 (JUL 22:00) DBP 69 (JUL 23:04) 63 (JUL 22:) 76 (JUL 22:) MAP 80 (JUL 23:) 75 (JUL 23:43) 88 (JUL 22:) SpO2 L 92 (JUL 23:) L 92 (JUL 22:00) 95 (JUL 23:43) General: Alert and oriented, Mild distress. Eye: Extraocular movements are intact, Normal conjunctiva. HENT: Normocephalic, Oral mucosa is moist, No pharyngeal erythema. Neck: Supple, Non-tender, No jugular venous distention, No lymphadenopathy. Respiratory: Respirations are non-labored, Breath sounds are equal, Symmetrical chest wall expansion, No chest wall tenderness, Few crackles left base. Cardiovascular: Normal rate, No gallop, Normal peripheral perfusion. Gastrointestinal: Soft, Non-tender, Non-distended, Normal bowel sounds, No organomegaly. Lymphatics: No lymphadenopathy neck, axilla, groin. Musculoskeletal: Normal range of motion, Normal strength, No tenderness, No deformity. Integumentary: Warm, Dry, [place], No pallor, No rash, ICD site left chest with no obvious drainage, bandage in place, and did not see the device. Neurologic: Alert, Oriented, No focal deficits, Normal deep tendon reflexes. Cognition and Speech: Oriented, Speech clear and coherent. Psychiatric: Cooperative, Appropriate mood & affect. Review / Management Results review: Labs (Last four charted values) WBC 6.6 (MADELEINE 12) 9.6 (MADELEINE 09) 8.4 (MADELEINE 08) 7.4 (MADELEINE 07) HB 15.2 (MADELEINE 12) H 16.2 (MADELEINE 09) H 16.9 (MADELEINE 08) H 17.9 (MADELEINE 07) HCT H 48.8 (MADELEINE 12) H 52.1 (MADELEINE 09) H 53.4 (MADELEINE 08) H 56.1 (MADELEINE 07) Plt L 105 (MADELEINE 12) L 106 (MADELEINE 09) L 132 (MADELEINE 08) L 140 (MADELEINE 07) Na L 135 (MADELEINE 12) 136 (MADELEINE 10) L 135 (MADELEINE 09) 138 (MADELEINE 08) K 4.3 (MADELEINE 12) 4.0 (MADELEINE 10) 3.6 (MADELEINE 09) 3.8 (MADELEINE 08) Cl 102 (MADELEINE 12) L 99 (MADELEINE 10) 103 (MADELEINE 09) 107 (MADELEINE 08) CO2 32 (MADELEINE 12) H 34 (MADELEINE 10) H 34 (MADELEINE 09) 32 (MADELEINE 08) BUN 19 (MADELEINE 12) 12 (MADELEINE 10) 13 (MADELEINE 09) 10 (MADELEINE 08) Cr 0.70 (MADELEINE 12) 0.90 (MADELEINE 10) 0.90 (MADELEINE 09) 0.80 (MADELEINE 08) Glu R 103 (MADELEINE 12) 101 (MADELEINE 10) 99 (MADELEINE 09) 93 (MADELEINE 08) Ca H 10.3 (MADELEINE 12) H 10.6 (MADELEINE 10) 10.0 (MADLEEINE 09) 10.1 (MADELEINE 08) Lactic 1.0 (MADELEINE 07) PT 11.1 (MADELEINE 07) INR 1.0 (MADELEINE 07) AST 24 (MADELEINE 12) 22 (MADELEINE 10) 20 (MADELEINE 09) 23 (MADELIENE 08) ALT 24 (MADELEINE 12) 19 (JUL 19) 21 (JUL 18) 21 (JUL 17) ALK P 106 (JUL 21) 120 (JUL 10) 114 (JUL 09) 122 (JUL 17) T Bili 0.3 (JUL 21) 0.5 (JUL 19) 0.6 (JUL 18) 0.7 (JUL 17) PTN 6.8 (JUL 21) 7.3 (JUL 19) 6.8 (JUL 18) 7.0 (JUL 17) ALB L 2.9 (JUL 21) L 3.2 (JUL 19) L 3.2 (JUL 18) L 3.3 (JUL 17) . Impression and Plan 1. ICD site drainage with greatly increased risk for infection of underlying prosthetic device which was placed on 07/01/2021. Continues to drain with a hematoma formed because of anticoagulation although Eliquis previously held. Usual organisms would be skin magaly including staphylococcal species. Initial placement of device in 2011. Previous history of V. tach. The wound cultures with normal magaly to date. 2. Ischemic cardiomyopathy. 3. COPD with ongoing smoking. Exacerbation, new? 4. Hypercalcemia. Ongoing. 5. Polycythemia probably related to underlying COPD. 6. Hypoalbuminemia, ongoing. 7. Acute hypoxic respiratory failure on 4 L/min on 07/17/2021, likely related to CHF or COPD exacerbation. 4 L/min on 07/18, and chest x-ray 07/16 with interstitial changes likely chronic per radiology.. Chest x-ray 07/21 with no significant change in bilateral infiltrates interstitial present on admission. 8. Hypocalcemia, ongoing. 9. Thrombocytopenia, continues. 10. Hyponatremia, ongoing. Plan: 1. Diagnostically, continue to follow patient's physical exam, CBC, CMP, CRP, culture from ICD site (negative), blood cultures x2, negative to date. 2. Therapeutically, continue daptomycin and ceftriaxone in anticipation for outpatient IV antibiotics to continue for 2 to 4 weeks until 08/15/2021. CPK 56. Please hold rosuvastatin while on daptomycin to decrease risk of rhabdomyolysis. 3. Continue local wound care. Critical that the device site is adequately healed. If continues to drain, at risk for loss of device. 4. Oxygen support therapy, 4 L/min nasal cannula on 07/17, 07/18, 07/19, 07/20, 6/13. 5. Possible explantation of ICD device 07/24/2021. Plan has been discussed with patient including side effects of medications and line. At increased risk for side effects of abx and line, readmission, need for explant of device. D/w previously Isis Katz RN, cardiology. Discussed with the patient's mother. Case management orders: Please arrange for outpatient IV antibiotics at home or local facility with daptomycin 400 mg IV daily, ceftriaxone 2 g IV daily until 08/15/2021. Check CBC, CMP, CRP, CPK weekly while on IV antibiotics. Weekly PICC dressing changes. Fax orders to [phone], call [phone] with final arrangements. Hold rosuvastatin while on daptomycin to decrease risk of rhabdomyolysis. Arrange for follow-up with me in 1 week post discharge. documented in this encounter Plan of Treatment Not on file documented as of this encounter Visit Diagnoses Not on filedocumented in this encounter Care Teams Dry Cleaning Counter Clerk Relationship Specialty Start Date End Date Linh Doty, [address] [facility] [address] [place] [address] PCP - General Family Medicine 11/04/22 Lizzie Alves PA-C [address] [place] [address], [facility] [address] [place] [address] Hospitalist Cardiology 05/27/23 Kaushik Mariscal MD [address] [facility] [address] [place] [address] Machinist Apprentice Wood Electrophysiology 11/18/23 documented as of this encounter
--- OUTSIDE RECORDS SUMMARY | 2024-07-27 14:21 | XMS_ITS | Encounter Summary ---
Author Organization [facility] Init iatives Address [address] [place] [address] Care Team Providers Care Clamp Remover Name Role Phone Linh Doty DO Primary Care Provider [phone] Lizzie Alves PA-C Unavailable [phone] Kaushik Mariscal MD Unavailable Encounter Details Date Type Department Care Team (Late st Contact Info) Description 07/17/2021 Transcribed Document [facility] Family Medicine [address] [place] [address] ProviderChad MD [address] [place] [address] Social History Tobacco Use Types Packs/Day Years Used Date Smoking Tobacco: Never Assessed Comments Unknown Sex and Gender Information Value Date Recorded Sex Assigned at Not on file Legal Sex Female 3:27 PM CDT Gender Identity Not on file Sexual Orientation Not on file documented as of this encounter Miscellaneous Notes * Cerner Conversion Note - Chad Merchant MD - 07/17/2021 8:29 AM CDT Patient: GAGAN MENDOZA Age: 55 [...] with bloody drainage. Patient was admitted to [facility] on 07/16/2021. Post generator change, patient required regluing of device. Despite these interventions she still had persistence with increased bleeding and drainage on 07/15/2021. I was consulted on 07/16/2021 for further evaluation and treatment. No high fevers or chills. 07/17/2021 history reviewed. Still has drainage from ICD site. No fever. Tolerating vancomycin and piperacillin tazobactam, changing to daptomycin and ceftriaxone likely eventually. Review of Systems Constitutional: Weakness, No fever, No chills, No sweats. Eye Ear/Nose/Mouth/Throat Respiratory: No shortness of breath, No cough, No sputum production. Cardiovascular: No palpitations, No bradycardia. Gastrointestinal: No nausea, No vomiting, No diarrhea, No abdominal pain. Genitourinary: No dysuria, No hematuria, No change in urine stream. Hematology/Lymphatics Endocrine Immunologic Musculoskeletal: No back pain, No neck pain, No joint pain, No muscle pain, No claudication, No decreased range of motion. Integumentary: Negative except as documented in history of present illness, No rash, No abrasions. Neurologic: No confusion, No headache. Psychiatric: No anxiety, No depression. Health Status Current medications: Medications by Classification Antimicrobials piperacillin-tazobactam + Sodium Chloride 0.9% intravenous s - 3.375 Gram, IV Piggyback, Inj, Q6HInt, infuse over 3 Hour(s), Routine vancomycin + Sodium Chloride 0.9% intravenous solution 250 m - 1,000 mg, IV Piggyback, Inj, [id number], infuse over 1 Hour(s) Cardiovascular carvedilol - [...] Hypertension, Routine Physical Examination VS/Measurements Vital Measurements 07/17/2021 8:07 EDT Oxygen Flow Rate 4 Liter/Min , [...] 16 13:30) 98 (JUL 17 03:00) General: Alert and oriented, Moderate distress. Eye: Extraocular movements are intact, Normal [...] Normal strength, No tenderness. Integumentary: Warm, Dry, [place], No pallor, No rash, ICD site left chest with serous drainage, bandage in place. Neurologic: Alert, Oriented, No focal deficits, Normal deep tendon reflexes. Cognition and Speech: Oriented, Speech clear and coherent. Psychiatric: Cooperative, Appropriate mood & affect. Review / Management Results review: Labs (Last four charted values) WBC 8.4 (JUL 17) 7.4 (JUL 16) HB H 16.9 (JUL 08) H 17.9 (JUL 16) HCT H 53.4 (JUL 08) H 56.1 (JUL 16) Plt L 132 (JUL 08) L 140 (JUL 07) Na 138 (JUL 08) 138 (JUL 07) K 3.8 (JUL 08) 4.1 (JUL 07) Cl 107 (JUL 08) 105 (JUL 07) CO2 32 (JUL 08) 28 (JUL 07) BUN 10 (JUL 08) 10 (JUL 07) Cr 0.80 (JUL 08) 0.80 (JUL 07) Glu R 93 (JUL 08) 97 (JUL 07) Ca 10.1 (JUL 08) H 10.7 (JUL 07) Lactic 1.0 (JUL 16) PT 11.1 (JUL 16) INR 1.0 (JUL 16) AST 23 (JUL 08) 26 (JUL 16) ALT 21 (JUL 08) 25 (JUL 07) ALK P 122 (JUL 08) H 142 (JUL 07) T Bili 0.7 (JUL 08) 0.6 (JUL 07) PTN 7.0 (JUL 08) 7.6 (JUL 07) ALB L 3.3 (JUL 17) 3.5 (JUL 16) , ACC: [id number] ORDER: Culture Blood DATE: 07/16/2021 12:39 SOURCE: Blood SITE: Reports Pre 07/17/2021 06:01 Culture less than 24 Hrs old == ACC: [id number] ORDER: Culture Blood DATE: 07/16/2021 12:39 SOURCE: Blood SITE: Reports Pre 07/17/2021 06:01 Culture less than 24 Hrs old == . Chest x-ray results Radiology Results (Last 48 hours) [id number] -- 07/16/2021 14:13 CR Chest 1 Vw [...] above final transcribed report. Impression and Plan 1. ICD site drainage with greatly increased risk for infection of underlying prosthetic device which was placed on 07/01/2021. Continues to drain with a hematoma formed because of anticoagulation although Eliquis previously held. Usual organisms would be skin maagly including staphylococcal species. Initial placement of device in 2011. Previous history of V. tach. 2. Ischemic cardiomyopathy. 3. COPD with ongoing smoking. 4. Hypercalcemia. Resolved. 5. Polycythemia probably related to underlying COPD. 6. Hypoalbuminemia, new. 7. Acute hypoxic respiratory failure on 4 L/min on 07/17/2021, likely related to CHF or COPD exacerbation. New. Plan: 1. Diagnostically, continue to follow patient's physical exam, CBC, CMP, CRP, culture from ICD site, blood cultures x2. 2. Therapeutically, continue vancomycin and Zosyn with eventual change to daptomycin and ceftriaxone in anticipation for outpatient IV antibiotics to continue for 2 to 4 weeks. 3. Continue local wound care. Critical that the device site is adequately healed. If continues to drain, at risk for loss of device. 4. Oxygen support therapy, 4 L/min nasal cannula on 07/17. Plan has been discussed with patient including side effects of medications and line. At increased risk for side effects of abx and line, readmission, need for explant of device. D/w Isis Katz RN, cardiology. Electronically signed by [facility] Conversion Devulcanizer Tender Cerner at 05/27/2022 9:00 PM CDT documented in this encounter Plan of Treatment Not on file documented as of this encounter Visit Diagnoses Not on filedocumented in this encounter Care Teams Clamp Remover Relationship Specialty Start Date End Date Linh Doty, DO [address] [place] [address] PCP - General Family Medicine 11/04/22 Lizzie Alves PA-C [address] [place] [address] Hospitalist Cardiology 05/27/23 Kaushik Mariscal MD [address] [facility] [place] [place] [address] Parts And Service Manager Electrophysiology 11/18/23 documented as of this encounter
--- OUTSIDE RECORDS SUMMARY | 2024-07-27 14:21 | XMS_ITS | Encounter Summary ---
Author Organization [facility] Init iatives Address [address] [place] [address] Care Team Providers Care International Trade Teacher Name Role Phone Linh Doty DO Primary Care Provider [phone] Lizzie Alves PA-C Unavailable [phone] Dion Mariscal MD Unavailable Encounter Details Date Type Department Care Team (Late st Contact Info) Description 08/27/2021 Transcribed Document [facility] [place] [address] [place] [address] ProviderChad MD [address] [place] [address] Social History Tobacco Use Types Packs/Day Years Used Date Smoking Tobacco: Never Assessed Comments Unknown Sex and Gender Information Value Date Recorded Sex Assigned at Not on file Legal Sex Female 3:27 PM CDT Gender Identity Not on file Sexual Orientation Not on file documented as of this encounter Miscellaneous Notes * Cerner Conversion Note - Chad Merchant MD - 08/27/2021 10:32 AM CDT Patient: GAGAN MENDOZA Age: 56 years Sex: Female : 1965 Associated Diagnoses: None Author: DION MARISCAL MD-CAR No qualifying data available [facility] Cardiology Discharge Note - EP Primary Copper Roller Handler Printing: Dr. Benavidez PCP: Linh Doty Consults: NONE History of Present Illness: 55-year-old female referred by Pedro bustamante with past medical history of coronary artery [...] treated by her ICD for possibly SVT. Her device was reprogrammed today to increase the VT zone and the VF zone to prevent any inappropriate shock. We also added a far field recording. Her meds are review and unchanged even though we could increase the carvedilol if there is any more arrhythmias. Ms. Mendoza returned to clinic on 06/27/2021 for follow-up from device download which indicated battery performance alert on her single-chamber [employer] AICD. She denied complaints of chest pain, palpitations, dizziness, syncope, SOA, PND or orthopnea. Device interrogation shows a normally functioning single-chamber [employer] AICD. On June 16, 2021 she received 3 rounds of ATP for 3 separate episodes of SVT and 1 VT. Device subsequently went in to depletion mode which indicates the need for generator replacement as soon as possible. It was also reprogrammed to prolong detection so we can avoid treatment and potentially shocks even though she never had 1 shock. medications reviewed with patient, recommend continue current medical therapy except that we will have her continue her Plavix but she takes it twice a day so she will go to once a day and we will have her hold her Eliquis 2 days prior to her procedure along with the morning of the procedure. She should also hold her lisinopril the day of the procedure. She has a very bad memory of Dr. Solorio device implantation with hurting. EKG today showed sinus rhythm, heart rate 92. She wants to stay overnight which is okay. Patient underwent her generator change on 01 Jul 2021. She was kept on the Plavix but stopped her eliquis before the procedure. About 2 weeks after the procedure, she started to have some black dark blood drainage. She was hospitalized to try to save the device however there was still some slow oozing so the device was removed and she has been treated with antibiotic for prevention for infection. Ms. Mendoza returned to clinic on 08/08/2021 for hospital follow-up from admission to [facility] from 07/16/2021-07/25/2021 with expl[address] of her [employer] AICD on 07/24/[address] Moshe Hoffman. Incision is well-healed and without signs or symptoms of infection, drainage, or erythema. Patient will complete her last course of antibiotics on 08/15/2021 and will follow-up with [place] [facility] on 08/21/2021. Provided that she is clear of infection after that visit we will schedule her for reimplantation of a single-chamber [employer] AICD. Medications reviewed with patient, recommend continue current medical therapy. EKG today showed sinus rhythm, heart rate 61. We had a long discussion about whether to implant the device again. At this stage, her EF is 40% however she had several ATP in the past that were successful that were most likely VT. Therefore it would be reasonable to reimplant the device. Patient understand the risks that include bleeding infection. She will need to be was sedated because of prior bad experience with Dr. hirsch. We will hold her Plavix for 10 days before the procedure and will hold her eliquis for 3 day before the procedure including the day of the procedure. Admitting Diagnosis: 1. Need AICD reimplanted after one was removed secondary to bleeding Surgical History: History of Cardio-defib Pulse Generator Type Single-Chamber ?? St [employer] Implantable Cardioverter-Defibrillator History of Uterine Surgery Pertinent Labs/Results Blood Gases (Current Encounter/Past 24 Hours) No Blood Gas Results Found (Past 24 Hours) Labs (Last four charted values) WBC 9.0 (AUG 26) HB H 15.8 (AUG 26) HCT H 49.1 (AUG 26) Plt L 156 (AUG 26) Na 139 (AUG 26) K 4.5 (AUG 26) Cl 106 (AUG 26) CO2 32 (AUG 26) BUN 15 (AUG 26) Cr 0.90 (AUG 26) Glu R 95 (AUG 26) Ca H 10.6 (AUG 26) General: Alert and oriented. Eye: Pupils are equal, round and reactive to light. HENT: Normocephalic. Neck: Supple, Non-tender, No carotid bruit, No jugular venous distention. Respiratory: Lungs are clear to auscultation, Respirations are non-labored. Cardiovascular: Normal rate, Regular rhythm, No murmur, Good pulses equal in all extremities. Jugular Veins: Not distended. Gastrointestinal: Sensitive post surgery Musculoskeletal: Normal range of motion. Integumentary: Warm, Dry, [place]. Neurologic: Alert, Oriented. Psychiatric: Cooperative, Appropriate mood & affect. Telemetry: SR 64 Procedures this admission: Conclusion: Successful Procedure(s) of: 1. Single CHAMBER ICD SYSTEM PLACEMENT - [employer] Discharge Diagnoses: 1. Successful implantation of a single chamber AICD Discharge Medications: 1. Carvedilol 12.5 MG Oral Tablet; TAKE ONE TABLET BY MOUTH TWICE DAILY 2. HOLDClopidogrel Bisulfate 75 MG unril after follow up with Dr. Arellano 3. HOLDEliquis 5 MG until after follow up with Dr. Mariscal 4. Fluticasone Propionate 50 MCG/ACT Nasal Suspension; INSTILL 2 SPRAYS IN EACH NOSTRIL EVERY DAY 5. Folic Acid 1 MG Oral Tablet; TAKE ONE TABLET BY MOUTH EVERY DAY 6. Furosemide 20 MG Oral Tablet; TAKE ONE TABLET BY MOUTH EVERY DAY IN THE MORNING 7. Gabapentin 600 MG Oral Tablet; TAKE 1 TABLET AT BEDTIME 8. Lisinopril 20 MG Oral Tablet; TAKE ONE TABLET BY MOUTH EVERY DAY 9. Pantoprazole Sodium 40 MG Oral Tablet Delayed Release; TAKE ONE TABLET BY MOUTH EVERY DAY 10. Potassium Chloride ER 10 MEQ Oral Capsule Extended Release; TAKE ONE CAPSULE BY MOUTH EVERY DAY IN THE MORNING 11. Rosuvastatin Calcium 10 MG Oral Tablet; TAKE 1 TABLET AT BEDTIME 12. Sertraline HCl - 50 MG Oral Tablet; TAKE 1/2 TABLET BY MOUTH EVERY DAY FOR 2 WEEKS, THEN TAKE ONE TABLET BY MOUTH EVERY DAY thereafter 13. Topiramate 25 MG Oral Tablet; TAKE 1 TABLET AT BEDTIME 14. Vitamin D (Ergocalciferol) 1.25 MG (55786 UT) Oral Capsule; TAKE ONE CAPSULE BY MOUTH ONCE A WEEK Allergies (1) Active Reaction NKDA Disposition: Patient sent home in stable condition with family support. Discharge Instructions: Cardiac Diet. Post Cath Instructions. Activity as tolerated Smoking cessation and risk factor modification addressed - requesting smoking patches which we have asked pharmacy to fill Followup Appointments: PCP in 5 - 7 days. Primary Copper Roller Handler Printing in [address] Davey Batista 09/03/2021 at 1400 Patient has been instructed on and verbalized an understanding of the above discharge instructions. Plan has been discussed and is in agreement with Dr. Suzy Kazt, RN documenting for Dr. Mariscal Electronically signed by [facility] Conversion Hygiene Teacher Cerner at 05/27/2022 9:17 PM CDT documented in this encounter Plan of Treatment Not on file documented as of this encounter Visit Diagnoses Not on filedocumented in this encounter Care Teams International Trade Teacher Relationship Specialty Start Date End Date Linh Doty, DO [address] [facility] [address] [place] [address] PCP - General Family Medicine 11/04/22 Lizzie Alves PA-C [address] [place] [address], [facility] [address] [place] [address] Hospitalist Cardiology 05/27/23 Dion Mariscal MD [address] [facility] [address] [place] [address] Copper Roller Handler Printing Electrophysiology 11/18/23 documented as of this encounter
--- OUTSIDE RECORDS SUMMARY | 2024-07-27 14:21 | XMS_ITS | Encounter Summary ---
Author Organization [employer] [facility] Init iatives Address [address] [place] [address] Care Team Providers Care Building Analyst/Supervisor Name Role Phone Linh Doty DO Primary Care Provider [phone] Lizzie Alves PA-C Unavailable [phone] Kaushik Mariscal MD Unavailable Encounter Details Date Type Department Care Team (Late st Contact Info) Description 07/24/2021 Transcribed Document [facility] [place] [address] [place] [address] Chad Merchant MD [address] [place] [address] Social History Tobacco Use Types Packs/Day Years Used Date Smoking Tobacco: Never Assessed Comments Unknown Sex and Gender Information Value Date Recorded Sex Assigned at Not on file Legal Sex Female 3:27 PM CDT Gender Identity Not on file Sexual Orientation Not on file documented as of this encounter Miscellaneous Notes * Cerner Conversion Note - Chad Merchant MD - 07/24/2021 2:30 PM CDT DATE OF PROCEDURE: 07/24/2021 SURGEON: Richard Hoffman MD PREOPERATIVE DIAGNOSIS: ICD pocket dehiscence, status post recent ICD generator replacement. PROCEDURE: ICD system extraction with transvenous laser extraction. DESCRIPTION OF PROCEDURE: The patient was brought to the hybrid room in the postabsorptive and nonsedated state. General endotracheal anesthesia was established. Baseline ADELE was performed. After the aseptic draping of the femoral regions, the right femoral triangle was infiltrated with 1% lidocaine locally. A 4-Cymro sheath was placed in the right femoral artery and used for continuous arterial pressure monitoring. A 10-Cymro sheath was placed in the right femoral vein and over a guidewire, which was placed at the level of the right internal jugular, a Bridge rescue balloon was positioned and tested for placement. It was then withdrawn to the level of the IVC in a deflated state. After the aseptic draping of the left pectoral region, the area of the generator was infiltrated with 1% lidocaine locally. The incision was carried down to the level of the capsule, in which the generator was delivered. Generator was removed from the lead. The was dissected free down to the retention collar, which was released from the retention sutures. Next, using an 11-Cymro manual cutting sheath, the lead was freed to the level of the SVC. The cutting sheath was then exchanged for 14-Cymro laser powered sheath, which was used to successfully extract the total remaining portion of the lead. Hemostasis was achieved. The wound was irrigated with antibiotic solution and hemostasis was achieved. Interrupted 2-0 and running 3-0 Vicryl sutures were used to close the wound at the deep and superficial subcutaneous levels, running 4-0 Vicryl suture was used to close the wound at the subcuticular level. Medical adhesive was placed followed by placement of Aquacel patch. The previously placed right femoral venous and arterial lines and sheaths removed, and hemostasis was achieved with manual compression. Cultures were obtained from the ICD lead tip as well as the pocket. The patient tolerated the procedure well, left the hybrid room in stable condition. COMPLICATIONS: None. ESTIMATED BLOOD LOSS: Less than 30 mL. SPECIMEN REMOVED: None. IMPRESSION: Status post ICD system removal and transvenous laser extraction. RECOMMENDATIONS: Reimplantation when cleared from ID standpoint. /[id number] Richard Hoffman MD TCR/AQ / TCR / MODL /[id number] Electronically signed by [facility] Geraldine Recreation Supervisor Cerner at 05/27/2022 9:00 PM CDT documented in this encounter Plan of Treatment Not on file documented as of this encounter Visit Diagnoses Not on filedocumented in this encounter Care Teams Building Analyst/Supervisor Relationship Specialty Start Date End Date Linh Doty, 8 [facility] [address] [place] [address] PCP - General Family Medicine 11/04/22 Lizzie Alves PA-C [address] [facility], [facility] [address] [place] [address] Hospitalist Cardiology 05/27/23 Kaushik Mariscal MD [address] [facility] [address] [place] [address] Director Of Rehabilitative Services Electrophysiology 11/18/23 documented as of this encounter
--- OUTSIDE RECORDS SUMMARY | 2024-07-27 14:21 | XMS_ITS | Encounter Summary ---
Author Organization [employer] [facility] Init iatives Address [address] [place] [address] Care Team Providers Care Room Server Name Role Phone Linh Doty DO Primary Care Provider [phone] Lizzie Alves PA-C Unavailable [phone] Kaushik Mariscal MD Unavailable Encounter Details Date Type Department Care Team (Late st Contact Info) Description 07/17/2021 Transcribed Document [facility] [facility] [address] ProviderChad MD [address] [place] [address] Social History Tobacco Use Types Packs/Day Years Used Date Smoking Tobacco: Never Assessed Comments Unknown Sex and Gender Information Value Date Recorded Sex Assigned at Not on file Legal Sex Female 3:27 PM CDT Gender Identity Not on file Sexual Orientation Not on file documented as of this encounter Miscellaneous Notes * Cerner Conversion Note - Chad Merchant MD - 07/17/2021 3:22 PM CDT UM Authorization Entered On: 07/17/2021 15:23 EDT Performed On: 07/17/2021 15:22 EDT by Khushi Jones Rn-Utilization Review Primary Insurance Authorization Authorization and Policy Numbers : Insurance 1 Health Plan: [employer] MEDICARE Policy Number: [id number] Authorization Number: Insurance Primary Name : [employer] MEDICARE Policy Number: [id number] Authorization Status-Primary : Awaiting callback Reference Number-Primary : [id number] Authorized Service Begin Date-Primary : 07/16/2021 EDT Authorization Comments-Primary : CLINICAL FAXED VIA [employer] Historical Authorization Comments-Primary : Comment 1: REF# YAJAIRA DUNAWAY. CLINICAL FAXED VIA [employer] (Khushi Jones Rn-Utilization Review 07/17/2021 15:17) Khushi Jones Rn-Utilization Review - 07/17/2021 15:22 EDT Electronically signed by [facility], [facility] Conversion Microsoft Bi Consultant Cerner at 05/27/2022 8:59 PM CDT documented in this encounter Plan of Treatment Not on file documented as of this encounter Visit Diagnoses Not on filedocumented in this encounter Care Teams Room Server Relationship Specialty Start Date End Date Linh Doty, DO [address] [facility] [address] [place] [address] PCP - General Family Medicine 11/04/22 Lizzie Alves PA-C [address] [place] [address], [facility] [address] [place] [address] Hospitalist Cardiology 05/27/23 Kaushik Mariscal MD [address] [facility] [address] [place] [address] Propeller Mechanic Electrophysiology 11/18/23 documented as of this encounter
--- OUTSIDE RECORDS SUMMARY | 2024-07-27 14:21 | XMS_ITS | Encounter Summary ---
Author Organization [employer] [facility] Init iatives Address [address] [place] [address] Care Team Providers Care Charter Boat Operator Name Role Phone Linh Doty DO Primary Care Provider [phone] Lizzie Alves PA-C Unavailable [phone] Kaushik Mariscal MD Unavailable Encounter Details Date Type Department Care Team (Late st Contact Info) Description 11/23/2018 Transcribed Document [facility] [place] [facility] [place] [address] Chad Merchant MD [address] [place] [address] Social History Tobacco Use Types Packs/Day Years Used Date Smoking Tobacco: Never Assessed Comments Unknown Sex and Gender Information Value Date Recorded Sex Assigned at Not on file Legal Sex Female 3:27 PM CDT Gender Identity Not on file Sexual Orientation Not on file documented as of this encounter Miscellaneous Notes * Cerner Conversion Note - Chad Merchant MD - 11/23/2018 7:39 AM CDT Pre Procedure Adult Entered On: 11/23/2018 7:46 EDT Performed On: 11/23/2018 7:39 EDT by ELAINE CHOI RN Height and Weight, Clinical Dosing Height Source : Stated Height Entry Format : Power Height, Feet : 0 ft(Converted to: 0 cm, 0 Inch) Height, Inches : 70 Inch(Converted to: 5 ft 10 Inch, 177.80 cm) Clinical Height : 177.8 cm Weight Source : Standing scale Weight Entry Format : Power Clinical Dosing Weight : 77.27 kg Weight, Pounds : 170 lb Body Surface Area (BSA) : 1.95 m2 Body Mass Index : 24.4 kg/m2 (HI) [place] Body Weight : 68 kg ELAINE CHOI RN - 11/23/2018 7:39 EDT Health Histories Smoking Status : 10 or more cigarettes (1/2 pack or more)/day in last 30 days Smokeless Tobacco Status : Never Desires Tobacco Cessation Medication : No Reason for No Tobacco Cessation Medication : Refuses FDA approved medications ELAINE CHOI RN - 11/23/2018 7:39 EDT Social History (As Of: 11/23/2018 07:46:34 EDT) Tobacco: 3 /4 pack today. smoking every day . Smoking Status. (Last Updated: 11/23/2018 07:45:59 EDT by ELAINE CHOI RN) Alcohol: Alcohol Use History No. (Last Updated: 06/07/2017 19:58:06 EDT by Nancy Vasquez RN-Resource) Alcohol Use History No. (Last Updated: 11/23/2018 07:46:17 EDT by ELAINE CHOI RN) Substance Abuse: Drug Use Hx: No. Use in Last 12 Months: No. (Last Updated: 11/23/2018 07:46:23 EDT by ELAINE CHOI RN) Infectious Disease History Infectious Disease History : Chicken pox/Shingles, Measles, Mumps Fever/Chills Last 48 Hours : No Travel To Regions with Travel Advisories : No Travel Outside [place] Within Last 30 Days : No Contact With Traveler to Advisory Region : No Tuberculosis Symptoms : None ELAINE CHOI RN - 11/23/2018 7:39 EDT Anesthesia/Transfusion History Family History of Anesthesia Reaction : No prior transfusion(s) Blood Transfusion Acceptable to Patient : Yes Transfusion History : Prior anesthesia without reaction Family History of Anesthesia Reaction : None ELAINE CHOI RN - 11/23/2018 7:39 EDT Functional Assessment Living Situation : Other: boyfriend - live with boyfriend. Current Home Treatments : None ELAINE CHOI RN - 11/23/2018 7:39 EDT Psychosocial History Does Someone Depend on You for Care? : No Currently in Unsafe Situation : No Tried to Harm Yourself in the Past? : No Thoughts of Harming/Killing Yourself : No ELAINE CHOI RN - 11/23/2018 7:39 EDT Advance Directive Patient has Advance Directive *Q : No, patient refuses Advance Directive information ELAINE CHOI RN - 11/23/2018 7:39 EDT Teaching/Learning Assessment Barriers To Learning : None evident Learning Style Preferences Patient : Verbal explanation Learning Style Preferences Family : Verbal explanation ELAINE CHOI RN - 11/23/2018 7:39 EDT Education Topics, Periop Preadmission Perioperative Education Grid IV's : Verbalizes understanding ELAINE CHOI RN - 11/23/2018 7:39 EDT General Info Want Family/Rep/Phys Notified of Admit : No Emergency Contact #1 : Alexx- [phone]- cell number Emergency Contact #1 Phone Number : boyfriend. Emergency Contact #1 Relationship : - Emergency Contact #2 : - Emergency Contact #2 Phone Number : - Emergency Contact #2 Relationship : - Primary Language : Jamaican Communication Barrier : None ELAINE CHOI RN - 11/23/2018 7:39 EDT Vital Measurements Temperature Source : Oral Temperature Mode : Fahrenheit Temperature, Fahrenheit : 97.2 Deg F Clinical Temperature, C : 36.2 Deg C Peripheral Pulse Rate : 89 bpm Respiratory Rate : 18 Breaths/Min Systolic Blood Pressure : 127 mmHg Diastolic Blood Pressure : 67 mmHg Vital Measurements Comment : oxygen sat - 96 percent room air ELAINE CHOI RN - 11/23/2018 7:39 EDT Sleep Apnea Risk Assmt Hx of Obstructive Sleep Apnea Diagnosis : No Snore Loudly : Yes Tired, Fatigued, or Sleepy During Day : No Observed Stopping Breathing During Sleep : No Have/Are Being Treated for Hypertension : Yes BMI Greater Than 35 kg/m2 : Yes Age over 50 Years Old : Yes Neck Circumference Greater Than 40 cm : No Gender Male : No STOP-BANG Sleep Apnea Risk Level Score : 4 Sleep Apnea Risk Comment : neck circ- 37.5 neck circ. ELAINE CHOI RN - 11/23/2018 7:39 EDT Raymon Scale Raymon Sensory Perception : No impairment Raymon Moisture : Rarely moist Raymon Activity : Walks frequently Raymon Mobility : No limitation Raymon Nutrition : Adequate Raymon Friction and Shear : No apparent problem Raymon Score : 22 ELAINE CHOI RN - 11/23/2018 7:39 EDT Oxygen Therapy Oxygen Therapy Mode : Room air Oxygen Titrated : No ELAINE CHOI RN - 11/23/2018 7:39 EDT Pain Assessment Pain Assessment : Initial assessment Pain Scale Goal : 0 Pain Scl Goal Comment : 0 Duration : 0 Pain Scale Used : 0-10 Scale ELAINE CHOI RN - 11/23/2018 7:39 EDT Fall Risk Scales ABCs Fall Injury Risk Identification : Coagulation ABC Fall Injury Risk : Moderate to high injury risk MULLINS Hx Falls Immediate/Within 3 Months : No Mullins Secondary Diagnosis : No MULLINS Use of Ambulatory Aid : None MULLINS IV Therapy or IV Access : No Mullins Gait/Transferring : Normal, bedrest, immobile Mullins Mental Status : Oriented to own ability MULLINS Fall Scale Risk Level : 0-24 Low Risk [place] Fall Interventions : Wheels locked ELAINE CHOI RN - 11/23/2018 7:39 EDT Education Topics, Day of Surgery DayofSurgery Education Grid IV's : Verbalizes understanding ELAINE CHOI RN - 11/23/2018 7:39 EDT Valuables and Belongings Valuables and Belongings : Clothing Clothing : Common streetwear Clothing Disposition : Bedside ELAINE CHOI RN - 11/23/2018 7:39 EDT Pain Scale Intensity : 1 ELAINE CHOI RN - 11/23/2018 7:39 EDT Image 4 - Images currently included in the form version of this document have not been included in the text rendition version of the form. documented in this encounter Plan of Treatment Not on file documented as of this encounter Visit Diagnoses Not on filedocumented in this encounter Care Teams Charter Boat Operator Relationship Specialty Start Date End Date Linh Doty, [address] [place] [address] PCP - General Family Medicine 11/04/22 Lizzie Alves PA-C 1401 [facility], [facility] [address] [place] [address] Hospitalist Cardiology 05/27/23 Kaushik Mariscal MD [address] [facility] [place] [address] Director Of Healthcare Systems Electrophysiology 11/18/23 documented as of this encounter
--- OUTSIDE RECORDS SUMMARY | 2024-07-27 14:21 | XMS_ITS | Encounter Summary ---
Author Organization [employer] [facility] Init iatives Address [address] [place] [address] Care Team Providers Care Lead Caregiver Name Role Phone Linh Doty DO Primary Care Provider [phone] Lizzie Alves PA-C Unavailable [phone] Kaushik Mariscal MD Unavailable Encounter Details Date Type Department Care Team (Late st Contact Info) Description 08/27/2021 Transcribed Document [facility] [place] [address] [place] [address] ProviderChad MD [address] [place] [address] Social History Tobacco Use Types Packs/Day Years Used Date Smoking Tobacco: Never Assessed Comments Unknown Sex and Gender Information Value Date Recorded Sex Assigned at Not on file Legal Sex Female 3:27 PM CDT Gender Identity Not on file Sexual Orientation Not on file documented as of this encounter Miscellaneous Notes * Cerner Conversion Note - Chad Merchant MD - 08/27/2021 12:15 PM CDT Final Discharge Planning Entered On: 08/27/2021 12:15 EDT Performed On: 08/27/2021 12:15 EDT by Mayra Vann, Signaler Rn Final Discharge Planning Discharge Arrangements : Patient Post-Acute Information Patient Name: GAGAN MENDOZA Gender: Female : 63 Age: 56 Years No Post-Acute Placement(s) Listed No Post-Acute Service(s) Listed No Cur[place] Referral(s) Listed Important Medicare Message Reviewed With : Other: n/a Transportation Needs : Family/Friend Discharge Transportation Arrangement Cmt : SO to transport Follow Up Appointment Scheduled : Yes Is Patient High/Moderate Readmission Risk? : Yes Moderate Readmission Risk - Home, no home health : Make post-discharge physician appointment within 5-7 days of discharge. Patient/Family Notified of Plan : Yes Support Person/Pt Rep Notified of Plan : Yes Patient/Family Notified : So at bedside Is Patient Ready for Discharge? : Yes Physician Notified Patient is Ready for Discharge? : Yes Discharge To Care Management : Home/Residential/Long-Term or Self Care -01 Mayra Vann Signaler Rn - 08/27/2021 12:15 EDT Final Narrative Note Final Narrative Note : observation patient with orders to dc home. SO at bedside to transport patient home. no identified cm needs Mayra Vann Signaler Rn - 08/27/2021 12:15 EDT documented in this encounter Plan of Treatment Not on file documented as of this encounter Visit Diagnoses Not on filedocumented in this encounter Care Teams Lead Caregiver Relationship Specialty Start Date End Date Linh Doty, [address] [facility] [address] [place] [address] PCP - General Family Medicine 11/04/22 Lizzie Alves PA-C [address] [place] [address], [facility] [address] [place] [address] Hospitalist Cardiology 05/27/23 Kaushik Mariscal MD [address] [facility] [address] [place] [address] Delivery Person Electrophysiology 11/18/23 documented as of this encounter
--- OUTSIDE RECORDS SUMMARY | 2024-07-27 14:21 | XMS_ITS | Encounter Summary ---
Author Organization [facility] Init iatives Address [address] [place] [address] Care Team Providers Care Photo Optics Technician Name Role Phone Linh Doty DO Primary Care Provider [phone] Lizzie Alves PA-C Unavailable [phone] Kaushik Mariscal MD Unavailable Encounter Details Date Type Department Care Team (Late st Contact Info) Description 07/01/2021 Transcribed Document [facility] Family Medicine Count includes the [facility] [address] ProviderChad MD [address] [place] [address] Social History Tobacco Use Types Packs/Day Years Used Date Smoking Tobacco: Never Assessed Comments Unknown Sex and Gender Information Value Date Recorded Sex Assigned at Not on file Legal Sex Female 3:27 PM CDT Gender Identity Not on file Sexual Orientation Not on file documented as of this encounter Miscellaneous Notes * Cerner Conversion Note - Chad Merchant MD - 07/01/2021 6:05 PM CDT Admission History, Adult Entered On: 07/01/2021 18:06 EDT Performed On: 07/01/2021 18:05 EDT by Rere Ramos RN Advance Directive Patient has Advance Directive *Q : No, patient refuses Advance Directive information Rere Ramos RN - 07/01/2021 18:05 EDT Anesthesia/Transfusion History Family History of Anesthesia Reaction : No prior transfusion(s) Blood Transfusion Acceptable to Patient : Yes Transfusion History : Prior anesthesia without reaction Family History of Anesthesia Reaction : None Intubation History : Unknown Rere Ramos RN - 07/01/2021 18:05 EDT Anticipated Discharge Needs Discharge To, Anticipated : Home Anticipated Discharge Needs at This Time : Outpatient follow-up Rere Ramos RN - 07/01/2021 18:05 EDT Education Topics, Admission Orientation DCP GENERIC CODE Advance Directives : Verbalizes understanding Allergy Band Applied : Verbalizes understanding Assessment/Vital Signs : Verbalizes understanding Bed Control : Verbalizes understanding Call Light : Verbalizes understanding Confidentiality : Verbalizes understanding Diet/Room Service : Verbalizes understanding Fall Prevention : Verbalizes understanding Hand Hygiene : Verbalizes understanding Healthcare Provider Visit : Verbalizes understanding ID Band Applied : Verbalizes understanding Isolation Precautions : Verbalizes understanding Orientation to Room/Bathroom : Verbalizes understanding Patient Bill of Rights : Verbalizes understanding Patient Rights/Responsibilities : Verbalizes understanding Patient Safety : Verbalizes understanding Personal Privacy Code : Verbalizes understanding Rapid Response Initiated by Patient/Family : Verbalizes understanding Rounding : Verbalizes understanding Siderails use/risks : Verbalizes understanding Skin Precautions : Verbalizes understanding Smoking Policy : Verbalizes understanding Telemetry Monitoring : Verbalizes understanding Television/Phone : Verbalizes understanding Visiting Policy : Verbalizes understanding Rere Ramos RN - 07/01/2021 18:05 EDT Functional Assessment Living Situation : Home Patient Lives With : Spouse Persons Assisting Patient at Home : Alone Current Daily Living Assistance : None Sensory Deficits : None Mobility Assistance Prior to Admission : Independent MULLINS Hx Falls Immediate/Within 3 Months : No Current Home Treatments : None Home Equipment : None Rere Ramos RN - 07/01/2021 18:05 EDT General Info Preferred Name : Lena [...] Obtained From : Patient Primary Language : Uzbek Preferred Communication Mode : Verbal Communication Barrier : None Video Clerk Needed : No Rere Ramos RN - 07/01/2021 18:05 EDT Fall Risk Scales ABCs Fall Injury Risk Identification : Coagulation ABC Fall Injury Risk : Moderate to high injury risk MULLINS Hx Falls Immediate/Within 3 Months : No Mullins Secondary Diagnosis : No MULLINS Use of Ambulatory Aid : Bed rest/Nurse assist MULLINS IV Therapy or IV Access : Yes Mullins Gait/Transferring : Normal, bedrest, immobile Mullins Mental Status : Oriented to own ability Mullins Fall Risk Score : 20 MULLINS Fall Scale Risk Level : 0-24 Low Risk [place] Fall Interventions : Adequate lighting, Assistive devices within reach, Bed in low position, Call device within reach, Fall prevention handout/education per facility policy, Frequent orientation to call device, Frequent orientation to surroundings, Hourly comfort/safety rounds, Non-slip footwear, Personal items within reach, Reinforced to call for assistance before getting out of bed, Room free of clutter/spills, Upper side-rails up, Wheels locked, Wires/Cords secured Barriers to Learning : None evident Rere Ramos RN - 07/01/2021 18:05 EDT Health Histories Smoking Status : 10 or more cigarettes (1/2 pack or more)/day in last 30 days Smokeless Tobacco Status : Never Desires Tobacco Cessation Medication : No Reason for No Tobacco Cessation Medication : Refuses FDA approved medications Rere Ramos RN - 07/01/2021 18:05 EDT Social History (As Of: 07/01/2021 18:06:57 EDT) Tobacco: 10 or more cigarettes (1/2 [...] Source : Stated Height Entry Format : [place] Height, Feet : 5 ft(Converted to: 152 cm, 60 Inch) Height, Inches : 7 Inch(Converted to: 0 ft 7 Inch, 17.78 cm) Clinical Height : 170.18 cm Weight Source : Standing scale Weight Entry Format : [place] Clinical Dosing Weight : 61.36 kg Weight, Pounds : 135 lb Body Surface Area (BSA) : 1.71 m2 Body Mass Index : 21.2 kg/m2 [place] Body Weight : 61 kg Rere Ramos RN - 07/01/2021 18:05 EDT Infectious Disease History Does patient have [...] : No Rere Ramos RN - 07/01/2021 18:05 EDT Infectious Disease Risk Screening Grid Cough [...] : NO Rere Ramos RN - 07/01/2021 18:05 EDT Physical contact outside [place] in the last 30 days : No Hospitalized in Foreign Country : No Infectious Disease History : Chicken pox/Shingles, Measles, Mumps INF Disease TB Screening Calc : 0 INF Disease Recent Travel Calc : 0 Rere Ramos RN - 07/01/2021 18:05 EDT Tetanus Immunization Status Previous Tetanus Immunizations : No qualifying data available. Rere Ramos RN - 07/01/2021 18:05 EDT Influenza Vaccine Asmt, Adult Previous Vaccines from Immunization Schedule : No qualifying data available. Influenza Immunization, Current Season : Yes Rere Ramos RN - 07/01/2021 18:05 EDT Pneumococcal Vaccine Previous Vaccines from Immunization Schedule : No qualifying data available. Pneumonia Immunization Received : Yes Rere Ramos RN - 07/01/2021 18:05 EDT Order Details Transport Mode Order Detail : Wheelchair Isolation Precautions Order Detail : Standard Precautions Order Detail : 0 IV Order Detail : 1 Oxygen Order Detail : 0 Nurse Collect Order Detail : 0 Lift/Transfer : Minimal Central Line Order Detail : No Room Service : Needs Assistance Arterial Line : No Patient Needs Meds Crushed/Liquid : No Rere Ramos RN - 07/01/2021 18:05 EDT Nutrition History Feeding Ability : Independent Adaptive Feeding Equipment : None Adaptive Feeding Equipment : Regular Oral Medication Administration : By mouth Eating Poorly Due to Decreased Appetite : No Unplanned Weight Loss in Past 3-6 Months : No Malnutrition Screening Tool Total(mal) : 0 Malnutrition Screening Tool Risk Level : Patient not at risk Rere Ramos RN - 07/01/2021 18:05 EDT [place] Suicide Severity Rating Scale (C-SSRS) CSSRS Past Month Wish to be : No CSSRS Past Month Suicidal Thoughts : No CSSRS Lifetime Suicide Behavior : No Suicide Severity Rating Score : 0 Suicide Severity Rating : No Additional Care Required at this time Rere Ramos RN - 07/01/2021 18:05 EDT Psychosocial History Do You Have a History of the Following? : Patient denies history Currently in Unsafe Situation : No Rere Ramos RN - 07/01/2021 18:05 EDT Sleep Apnea Risk Assmt Hx of [...] : 3 Rere Ramos RN - 07/01/2021 18:05 EDT Valuables and Belongings Valuables and Belongings [...] to security/safe Rere Ramos RN - 07/01/2021 18:05 EDT documented in this encounter Plan of Treatment Not on file documented as of this encounter Visit Diagnoses Not on filedocumented in this encounter Care Teams Photo Optics Technician Relationship Specialty Start Date End Date Linh Doty DO [address] [address] PCP - General Family Medicine 11/04/22 Lizzie Alves PA-C [address] [facility] [address] [place] [address] Hospitalist Cardiology 05/27/23 Kaushik Mariscal MD [address] [facility] [address] [place] [address] Shank Pinner Electrophysiology 11/18/23 documented as of this encounter
--- OUTSIDE RECORDS SUMMARY | 2024-07-27 14:21 | XMS_ITS | Encounter Summary ---
Author Organization [facility] Init iatives Address [address] [place] [address] Care Team Providers Care External Auditor Name Role Phone Linh Doty DO Primary Care Provider [phone] Lizzie Alves PA-C Unavailable [phone] Kaushik Mariscal MD Unavailable Encounter Details Date Type Department Care Team (Late st Contact Info) Description 07/02/2021 Transcribed Document [facility] Family Medicine [facility] [place] [address] ProviderChad MD [address] [place] [address] Social History Tobacco Use Types Packs/Day Years Used Date Smoking Tobacco: Never Assessed Comments Unknown Sex and Gender Information Value Date Recorded Sex Assigned at Not on file Legal Sex Female 3:27 PM CDT Gender Identity Not on file Sexual Orientation Not on file documented as of this encounter Miscellaneous Notes * Cerner Conversion Note - Chad Merchant MD - 07/02/2021 12:34 PM CDT Initial Discharge Planning Entered On: 07/02/2021 12:44 EDT Performed On: 07/02/2021 12:34 EDT by ERNIE PAYAN, RN-Hot Mill Supervisor Initial Assessment I Previously Documented Living Environment : No qualifying data available. Living Situation : Home Patient Lives With : Significant other(s) Emergency Contact #1 : Alexx Shaffer Emergency Contact #1 Emergency Contact #1 Relationship : Boyfriend Emergency Contact #2 : . Emergency Contact #2 Phone Number : . Emergency Contact #2 Relationship : . Identified Medical Decision Maker : self Enter Doctors Name : Linh Doty, DO Does Patient have PCP Listed? : Yes Medical Durable Power of Infrastructure Technician Name : no Legal Guardian : No Is Guardianship Needed : No ERNIE PAYAN RN-Hot Mill Supervisor - 07/02/2021 12:34 EDT Initial Assessment II Sensory and Motor Deficits : None Current Home Treatments and Equipment : Bedside commode, Shower chair Does the Patient have a Floor to SNF Benefit? : Yes ERNIE PAYAN RN-Hot Mill Supervisor - 07/02/2021 12:34 EDT Discharge Needs I Anticipated Discharge Date : 07/02/2021 EDT Anticipated Discharge To, CM : Home with family care Current Home Treatment/Equipment : Current Home Treatment/Equipment No qualifying data available. Post Acute/Home Treatments : Bedside commode, Oxygen therapy, Shower chair Documentation Status Complete : Yes ERNIE PAYAN RN-Hot Mill Supervisor - 07/02/2021 12:34 EDT Discharge Needs II Professional Skilled Services : Professional Skilled Services No qualifying data available. Needs Assistance with Transportation : No Patient Discharge Goal : Home ERNIE PAYAN RN-Hot Mill Supervisor - 07/02/2021 12:34 EDT Narrative Note Narrative Note : HD# 1. pt in observation status. 07-01: ppm/icd generator change. hx: cad, icm. chf. htn. pad. 02 2l nc. ancef iv. plavix. spoke with Ms. Chandler & her Alexx MACDONALD. they reside in [facility]. she is adl independent. has mentioned equipment. no hh or rehab stays. spoke with bedside Aimee SMITH. for dc today. pt on 2l nc oxygen. not on oxygen at home. ra sats 86 with removal of oxygen. spoke with Ms. Chandler regarding home 02. after a bit of discussion & in presence of bedside Aimee SMITH & Alexx MACDONALD she adamantly declines home 02. 2nd discussion: still adamantly declines. spoke with Isis Katz, jingle writer. advised of all above. she spoke with pt this am regarding home oxygen & pt declined to her as well. Isis to alert Dr Mariscal of all. will dc home with 02 arranged. ERNIE PAYAN, RN-Hot Mill Supervisor - 07/02/2021 12:34 EDT Electronically signed by [facility], [facility] Conversion Demurrage Agent Cerner at 05/27/2022 9:02 PM CDT documented in this encounter Plan of Treatment Not on file documented as of this encounter Visit Diagnoses Not on filedocumented in this encounter Care Teams External Auditor Relationship Specialty Start Date End Date Linh Doty, [address] [facility] [address] [place] [address] PCP - General Family Medicine 11/04/22 Lizzie Alves PA-C 14[address] [facility] [address] [place] [address] Hospitalist Cardiology 05/27/23 Kaushik Mariscal MD 14[address] [facility] [address] [place] [address] Accountant Assistant Electrophysiology 11/18/23 documented as of this encounter
--- OUTSIDE RECORDS SUMMARY | 2024-07-27 14:21 | XMS_ITS | Encounter Summary ---
Author Organization [facility] Init iatives Address [address] [place] [address] Care Team Providers Care Blasting Contract Man Name Role Phone Linh Doty DO Primary Care Provider [phone] Lizzie Alves PA-C Unavailable [phone] Kaushik Mariscal MD Unavailable Encounter Details Date Type Department Care Team (Late st Contact Info) Description 07/23/2021 Transcribed Document [facility] Family Medicine [facility] [place] [address] ProviderChad MD [address] [place] [address] Social History Tobacco Use Types Packs/Day Years Used Date Smoking Tobacco: Never Assessed Comments Unknown Sex and Gender Information Value Date Recorded Sex Assigned at Not on file Legal Sex Female 3:27 PM CDT Gender Identity Not on file Sexual Orientation Not on file documented as of this encounter Miscellaneous Notes * Cerner Conversion Note - Chad ProviderMD - 07/23/2021 11:18 PM CDT Nutrition Assessment Entered On: 07/24/2021 11:25 EDT Performed On: 07/24/2021 11:25 EDT by Ludivina Nicole Dietitian Nutrition Assessment Nutrition Assessment Reason : Automatic referral Ludivina Nicole Dietitian - 07/24/2021 11:25 EDT Nutrition Recommendations Dietitian Recommendations : 07/24: c/s- PU. Pt is a 55 y/o female admitted for hematoma at AICD site. RD consulted for a Stg 2 PU or greater, but consult was erroneous. Per WOCN today, pt has shear and friction noted to her coccyx. No further skin breakdown noted. Meds and labs reviewed. Pt is currently NPO to have AICD removed today. She was previously on a cardiac diet and consuming 50% of meals on avg. No nutrition diagnosis at this time. Will rescreen in 7-[address] also available PRN. Ludivina Nicole, Dietitian - 07/24/2021 12:28 EDT Electronically signed by Rekha [facility] Conversion Sal[employer] Officer Cerner at 05/27/2022 9:28 PM CDT documented in this encounter Plan of Treatment Not on file documented as of this encounter Visit Diagnoses Not on filedocumented in this encounter Care Teams Blasting Contract Man Relationship Specialty Start Date End Date Linh Doty, 8 [facility] [address] [place] [address] PCP - General Family Medicine 11/04/22 Lizzie Alves PA-C [address] [place] [address], [facility] [address] [place] [address] Hospitalist Cardiology 05/27/23 Kaushik Mariscal MD 14[address] [facility] [address] [place] [address] Deicer Kit Assembler Electrophysiology 11/18/23 documented as of this encounter
--- OUTSIDE RECORDS SUMMARY | 2024-07-27 14:21 | XMS_ITS | Encounter Summary ---
Author Organization [employer] [facility] Init iatives Address [address] [place] [address] Care Team Providers Care Helminthology Teacher Name Role Phone Linh Doty DO Primary Care Provider Lizzie Alves PA-C Unavailable [phone] Kaushik Mariscal MD Unavailable Encounter Details Date Type Department Care Team (Late st Contact Info) Description 07/17/2021 Transcribed Document [facility] Family Medicine [address] [place] [address] ProviderChad MD [address] [place] [address] Social History Tobacco Use Types Packs/Day Years Used Date Smoking Tobacco: Never Assessed Comments Unknown Sex and Gender Information Value Date Recorded Sex Assigned at Not on file Legal Sex Female 3:27 PM CDT Gender Identity Not on file Sexual Orientation Not on file documented as of this encounter Miscellaneous Notes * Cerner Conversion Note - Chad Merchant MD - 07/17/2021 3:32 PM CDT ED Discharge Entered On: 07/17/2021 15:32 EDT Performed On: 07/17/2021 15:32 EDT by Joe Cuello RN Discharge Process Patient Disposition : Admit/Observe Personal Belongings With Patient : Yes Patient Education Completed : Yes Teaching Evaluation : Verbalizes understanding IV Discontinued : No Joe Cuello RN - 07/17/2021 15:32 EDT Admission, ED Nurse Report Accepted By : SARAH Howard Nurse Report Acceptance Time : 07/17/2021 15:25 EDT `Nurse Report (Hand Off) : Called Mode Of Departure : Joe Marmolejo, SARAH - 07/17/2021 15:32 EDT Electronically signed by Reyna Da Silva Conversion Victorian Literature Professor Cerner at 05/27/2022 9:11 PM CDT documented in this encounter Plan of Treatment Not on file documented as of this encounter Visit Diagnoses Not on filedocumented in this encounter Care Teams Helminthology Teacher Relationship Specialty Start Date End Date Linh Doty, 8 [facility] [address] [place] [address] PCP - General Family Medicine 11/04/22 Lizzie Alves PA-C [address] [place] [address], [facility] [address] [place] [address] Hospitalist Cardiology 05/27/23 Kaushik Mariscal MD 14[address] [facility] [address] [place] [address] Business Office Coordinator Electrophysiology 11/18/23 documented as of this encounter
--- OUTSIDE RECORDS SUMMARY | 2024-07-27 14:21 | XMS_ITS | Encounter Summary ---
Author Organization [employer] [facility] Init iatives Address [address] [place] [address] Care Team Providers Care Operating Systems Programmer Name Role Phone Lalitha Linhkarthikeyan Mazariegos DO Primary Care Provider Lizzie Alves PA-C Unavailable [phone] Kaushik Mariscal MD Unavailable Encounter Details Date Type Department Care Team (Late st Contact Info) Description 07/01/2021 Transcribed Document [facility] Family Medicine [address] [place] [address] ProviderChad MD [address] [place] [address] Social History Tobacco Use Types Packs/Day [...] Chad ProviderMD - 07/01/2021 5:16 PM CDT Custodial Engineer Details Entered On: 07/01/2021 22:37 EDT Performed On: 07/01/2021 20:00 EDT by Kait Kang, SARAH Order Details Transport Mode Order Detail : Wheelchair Isolation Precautions Order Detail : Standard Precautions Order Detail : 0 IV Order Detail : 1 Oxygen Order Detail : 0 Nurse Collect Order Detail : 1 Lift/Transfer : Minimal Central Line Order Detail : No Room Service : Needs Assistance Arterial Line : No Patient Needs Meds Crushed/Liquid : No Kait Kang RN - 07/01/2021 22:37 EDT Electronically signed by Rekha [facility] Conversion Termite Helper Cerner at 05/27/2022 9:02 PM CDT documented in this encounter Plan of Treatment Not on file documented as of this encounter Visit Diagnoses Not on filedocumented in this encounter Care Teams Operating Systems Programmer Relationship Specialty Start Date End Date Linh Doty, 8 [facility] [address] [place] [address] PCP - General Family Medicine 11/04/22 Lizzie Alves PA-C [address] [place] [address], [facility] [address] [place] [address] Hospitalist Cardiology 05/27/23 Kaushik Mariscal MD 14[address] [facility] [address] [place] [address] Director Fixed Income Electrophysiology 11/18/23 documented as of this encounter
--- OUTSIDE RECORDS SUMMARY | 2024-07-27 14:21 | XMS_ITS | Encounter Summary ---
Author Organization [employer] [facility] Init iatives Address [address] [place] [address] Care Team Providers Care School Boat Driver Name Role Phone Linh Doty DO Primary Care Provider [phone] Lizzie Alves PA-C Unavailable [phone] Kaushik Mariscal MD Unavailable Encounter Details Date Type Department Care Team (Late st Contact Info) Description 07/17/2021 Transcribed Document [facility] [address] [place] [address] ProviderChad MD [address] [place] [address] Social History Tobacco Use Types Packs/Day Years Used Date Smoking Tobacco: Never Assessed Comments Unknown Sex and Gender Information Value Date Recorded Sex Assigned at Not on file Legal Sex Female 3:27 PM CDT Gender Identity Not on file Sexual Orientation Not on file documented as of this encounter Miscellaneous Notes * Cerner Conversion Note - Chad Merchant MD - 07/17/2021 3:54 PM CDT Meds to Bed Enrollment Entered On: 07/18/2021 10:18 EDT Performed On: 07/17/2021 15:54 EDT by Samuel Anders Transportation Aide Cert Lead Meds to Bed Enrollment Patient Enrollment Decision: : Yes/enroll in meds to bed program Samuel Anders Transportation Aide Cert Lead - 07/18/2021 10:18 EDT documented in this encounter Plan of Treatment Not on file documented as of this encounter Visit Diagnoses Not on filedocumented in this encounter Care Teams School Boat Driver Relationship Specialty Start Date End Date Linh Doty, [address] [facility] [address] [place] [address] PCP - General Family Medicine 11/04/22 Lizzie Alves PA-C [address] [place] [address], [facility] [address] [place] [address] Hospitalist Cardiology 05/27/23 Kaushik Mariscal MD [address] [facility] [address] [place] [address] Property Technician Electrophysiology 11/18/23 documented as of this encounter
--- OUTSIDE RECORDS SUMMARY | 2024-07-27 14:21 | XMS_ITS | Encounter Summary ---
Author Organization [employer] [facility] Init iatives Address [address] [place] [address] Care Team Providers Care Systems Project Manager Name Role Phone Linh William DO Primary Care Provider [phone] Lizzie Alves PA-C Unavailable [phone] Kaushik Mariscal MD Unavailable Encounter Details Date Type Department Care Team (Late st Contact Info) Description 11/23/2018 Transcribed Document [facility] Family Medicine [facility] [place] [address] ProviderChad MD [address] [place] [address] Social History Tobacco Use Types Packs/Day Years Used Date Smoking Tobacco: Never Assessed Comments Unknown Sex and Gender Information Value Date Recorded Sex Assigned at Not on file Legal Sex Female 3:27 PM CDT Gender Identity Not on file Sexual Orientation Not on file documented as of this encounter Miscellaneous Notes * Cerner Conversion Note - Chad Merchant MD - 11/23/2018 1:18 PM CDT [facility] [place] [address] GAGAN MENDOZA :1965 Visit Time:11/23/2018 Your Visit Summary Your Care Team Admitting Physician - PUNEET BROOKS MD-REJI Attending Physician - PUNEET BROOKS MD-REJI Primary Care Physician - LINH WILLIAM MD-[facility] Referring Physician - PUNEET BROOKS MD-CAR Your Diagnosis Atherosclerosis of [place] arteries of extremities with intermittent claudication, right leg, Atherosclerosis of [place] arteries of extremities with intermittent claudication, right leg Discharge Vitals Temperature 36.2 ??C Heart Rate (Monitored) 82 Respiratory Rate 31 Blood Pressure 118/66 What to do next Instructions From Your Care Team 1. No driving for 24 hrs post procedure. 2. If site bleeds- call 911. hold pressure at the site. 3. Stroke- signs and symptoms - call 911. 4. Start plavix tomorrow. supervisor lending activities chantix- at pharmacy. Follow-Up Appointments Follow Up with [facility] When Within 2 to 4 weeks Medications What How Much When Instructions Next Dose clopidogrel (Plavix 75 mg oral tablet) 1 Tablet(s) Oral Every Day Refills: 6 Pickup at [facility] [place], [place] varenicline (Chantix 1 mg oral tablet) 1 Tablet(s) Oral Two Times A Day after meals Pickup at [facility] [place], [place] varenicline (Chantix Starter Pack 0.5 mg-1 mg oral tablet) 1 Tablet(s) Oral Two Times A Day as directed on package labeling Pickup at [place], [place] acetaminophen (Tylenol) Oral As needed for as needed for pain acetaminophen-hydrocodone (acetaminophen-HYDROcodone 325 mg-5 mg oral tablet) 1 Tablet(s) Oral Every 6 Hours as needed for for pain albuterol (Ventolin HFA 90 mcg/ inh inhalation aerosol) As needed for as needed for wheezing aspirin (aspirin 81 mg oral tablet) 1 Tablet(s) Oral Every Day atorvastatin (atorvastatin 40 mg oral tablet) 1 Tablet(s) Oral Every Day carvedilol (carvedilol 12.5 mg oral tablet) 1 Tablet(s) Oral Two Times A Day gabapentin (gabapentin 100 mg oral capsule) 1 Capsule(s) Oral Three Times A Day as needed for Pain lisinopril (lisinopril 5 mg oral tablet) 1 Tablet(s) Oral Every Day raNITIdine (raNITIdine 150 mg oral tablet) 1 Tablet(s) Oral Two Times A Day topiramate (topiramate 25 mg oral tablet) 1 Tablet(s) Oral Two Times A Day Pharmacy Information [facility] [place], [place]: [address] [facility] [address] [place] [id number] [phone] Take your medications faithfully. Do NOT skip [...] This Visit No Immunizations Found Education Materials Groin Site Care Refer to this sheet [...] questions after your procedure. HOME CARE INSTRUCTIONS ??? You may shower 24 hours after the procedure. Remove the bandage (dressing ) and gently wash the site with plain soap and water. Gently pat the site dry. ??? Do not apply powder or lotion to the site. ??? Do not sit in a bathtub, swimming pool, or whirlpool for 5 to 7 days. ??? No bending, squatting, or lifting anything over 10 pounds (4.5 kg) as directed by your caregiver. ??? Inspect the site at least twice daily. ??? Do not drive home if you are discharged the same day of the procedure. Have someone else drive you. ??? You may drive 24 hours after the procedure unless otherwise instructed by your caregiver. What to expect: ??? Any bruising will usually fade within 1 to 2 weeks. ??? Blood that collects in the tissue (hematoma ) may be painful to the touch. It should usually decrease in size and tenderness within 1 to 2 weeks. SEEK IMMEDIATE MEDICAL CARE IF: ??? You have unusual pain at the groin site or down the affected leg. ??? You have redness, warmth, swelling, or pain at the groin site. ??? You have drainage (other than a small amount of blood on the dressing). ??? You have chills. ??? You have a fever or persistent symptoms for more than 72 hours. ??? You have a fever and your symptoms suddenly get worse. ??? Your leg becomes pale, cool, tingly, or numb. ??? You have heavy bleeding from the site. Hold pressure on the site. Document Released: 02/28/2011 Document Revised: 04/19/2012 Document Reviewed: 02/28/2011 ExitCare?? Patient Information ??2014 [employer]. Cerebral Angiogram, Care After This sheet gives [...] and water are not available, use hand fig washer. ? Change your dressing as told by [...] to do so. ??? You may shower 24???48 hours after the procedure or as told [...] contrast dye from your body. ??? Take ghjv-tcd-ixzauso and prescription medicines only as told by [...] 06/12/2014 Document Revised: 03/02/2017 Document Reviewed: 03/02/2017 Elsevier Interactive Patient Education ?? 2019 Elsevier Inc. Moderate Conscious Sedation, Adult, [...] you are awake and alert. ??? Take axcf-oed-trbogtn and prescription medicines only as told by [...] 11/16/2013 Document Revised: 06/30/2016 Document Reviewed: 05/17/2016 Else[employer]water Interactive Patient Education ?? 2019 [employer]. Emergency Awareness and Preventative Care STROKE is [...] Assistance with quitting is available by contacting 2-112-SPMHNOW. This is a free resource providing counseling, [...] CPR? There are two easy steps: Call 9-1-1 if you see a teen or adult [...] This Visit (last charted value for your 11/23/2018 visit) Hematology 11/23/2018 7:50 AM Platelet Count: 159 K/uL -- Normal range between ( 163 and 369 ) Patient Name:GAGAN MENDOZA I have received and understand this information and was given the opportunity to ask questions. Patient/Manager Resort Name: Patient/Manager Resort Signature: Relationship to Patient: Clinician/Hospital Manager Resort Signature: Date: documented in this encounter Plan of Treatment Not on file documented as of this encounter Visit Diagnoses Not on filedocumented in this encounter Care Teams Systems Project Manager Relationship Specialty Start Date End Date Linh William, DO [address] [facility] [address] [place] [address] PCP - General Family Medicine 11/04/22 Lizzie Alves PA-C [address] [address] [address] [place] [address] Hospitalist Cardiology 05/27/23 Kaushik Mariscal MD [address] [facility] [address] [place] [address] Clothing Manager Electrophysiology 11/18/23 documented as of this encounter
--- OUTSIDE RECORDS SUMMARY | 2024-07-27 14:21 | XMS_ITS | Encounter Summary ---
Author Organization [employer] [facility] Init iatives Address [address] [place] [address] Care Team Providers Care Ship Runner Name Role Phone Linh Doty DO Primary Care Provider [phone] Lizzie Alves PA-C Unavailable [phone] Kaushik Mariscal MD Unavailable Encounter Details Date Type Department Care Team (Late st Contact Info) Description 07/16/2021 Transcribed Document [facility] [place] [address] ProviderChad MD [address] [place] [address] Social History Tobacco Use Types Packs/Day Years Used Date Smoking Tobacco: Never Assessed Comments Unknown Sex and Gender Information Value Date Recorded Sex Assigned at Not on file Legal Sex Female 3:27 PM CDT Gender Identity Not on file Sexual Orientation Not on file documented as of this encounter Miscellaneous Notes * Cerner Conversion Note - Chad Merchant MD - 07/16/2021 2:27 PM CDT Admission History, Adult Entered On: 07/17/2021 19:19 EDT Performed On: 07/17/2021 16:00 EDT by Anita Ko RN Advance Directive Patient has Advance Directive *Q : No, patient refuses Advance Directive information Anita Ko RN - 07/17/2021 19:15 EDT Anesthesia/Transfusion History Family History of Anesthesia Reaction : No prior transfusion(s) Transfusion History : Prior anesthesia without reaction Family History of Anesthesia Reaction : None Intubation History : Unknown Anita Ko RN - 07/17/2021 19:15 EDT Functional Assessment Living Situation : Home Patient Lives With : Significant other(s) Mobility Assistance Prior to Admission : Independent MULLINS Hx Falls Immediate/Within 3 Months : No Current Home Treatments : None Anita Ko RN - 07/17/2021 19:15 EDT General Info Preferred Name : Lena Mode of Arrival on Unit : Ambulatory Legal Guardian : Unaccompanied Legal Guardian : No Want Family/Rep/Phys Notified of Admit : No Emergency Contact #1 : Alexx Lweis Emergency Contact #1 Emergency Contact #1 Relationship : Life Partner Emergency Contact #2 : na Emergency Contact #2 Phone Number : na Emergency Contact #2 Relationship : na Number of People in Class : 1 Identified Medical Decision Maker Class : Self 2nd Ident. Medical Decision Maker : Alexx Lewis 2nd Ident. Medical Decision Maker Secondary Number of People in Class : 1 2nd Ident. Medical Decision Maker Class : Life Partner/ HCS Chief Complaint : Pt states she has a blood pocket surrounding her pacemaker. Was brought over by EP lab. Pacemaker places [address] 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 States 02 run between 88-93. Hx of COPD. Denies SOB/chest pain Information Obtained From : Patient, Spouse Primary Language : Bhutanese Preferred Communication Mode : Verbal Communication Barrier : None Provider Relations Specialist Needed : No Anita Ko RN - 07/17/2021 19:15 EDT Fall Risk Scales ABCs Fall Injury Risk Identification : Coagulation, Surgery ABC Fall Injury Risk : Moderate to high injury risk MULLINS Hx Falls Immediate/Within 3 Months : No Johnnie Secondary Diagnosis : Yes MULLINS Use of Ambulatory Aid : None MULLINS IV Therapy or IV Access : Yes Mullins Gait/Transferring : Normal, bedrest, immobile Mullins Mental Status : Oriented to own ability Mullins Fall Risk Score : 35 MULLINS Fall Scale Risk Level : 25-45 Medium Risk Council Fall Interventions : Adequate lighting, Assistive devices within reach, Bed in low position, Call device within reach, Hourly comfort/safety rounds, Non-slip footwear, Personal items within reach, Reinforced to call for assistance before getting out of bed, Room free of clutter/spills, Upper side-rails up, Wheels locked, Wires/Cords secured Fall Moderate to High Risk Interventions : Transport methods appropriate to patient Anita Ko RN - 07/17/2021 19:15 EDT Fall Risk Education Grid Alarms : Verbalizes understanding Assistive Equipment Use : Verbalizes understanding Bed Height/Stabilization : Verbalizes understanding Call light use : Verbalizes understanding Door Open : Verbalizes understanding Nonskid Footwear Use : Verbalizes understanding Anita Ko RN - 07/17/2021 19:15 EDT Barriers to Learning : None evident Individuals Taught : Patient Readiness to Learn : Cooperative Teaching Method : Explanation Fall Risk Scale Calc Temp : 0 Anita Ko RN - 07/17/2021 19:15 EDT Health Histories Smoking Status : Never (less than 100 in lifetime; none in last 30 days) Smokeless Tobacco Status : Never Anita Ko RN - 07/17/2021 19:15 EDT Social History (As Of: 07/17/2021 19:19:46 EDT) Tobacco: 10 or more cigarettes (1/2 [...] Source : Stated Height Entry Format : [place] Height, Feet : 5 ft(Converted to: 152 cm, 60 Inch) Height, Inches : 6 Inch(Converted to: 0 ft 6 Inch, 15.24 cm) Clinical Height : 167.64 cm Weight Source : Bed scale Weight Entry Format : [place] Clinical Dosing Weight : 61.82 kg Weight, Pounds : 136 lb Body Surface Area (BSA) : 1.7 m2 Body Mass Index : 22 kg/m2 [place] Body Weight : 59 kg Anita Ko RN - 07/17/2021 19:15 EDT Infectious Disease History Does patient have symptoms of COVID-19? : No Tested for COVID19 in the past 14 days : No, Patient stated Does the Patient state known exposure to a COVID-19 positive case in the last 14 days? : No Patient Vaccinated for COVID-19 : Fully vaccinated Anita Ko RN - 07/17/2021 19:15 EDT Infectious Disease Risk Screening Grid Cough < 2 wks of unknown origin : NO Cough > 2 weeks : NO Blood in Sputum : NO Fever or self-reported Fever : NO Rash of unknown origin : NO Headache : NO Stiff neck : NO Night Sweats : NO Unexplained Weight Loss : NO Diarrhea (3 episode per day) : NO Anita Ko RN - 07/17/2021 19:15 EDT Physical contact outside [place] in the last 30 days : No Hospitalized in Foreign Country : No Infectious Disease History : Chicken pox/Shingles, Measles, Mumps INF Disease TB Screening Calc : 0 INF Disease Recent Travel Calc : 0 Anita Ko RN - 07/17/2021 19:15 EDT Influenza Vaccine Asmt, Adult Previous Vaccines from Immunization Schedule : No qualifying data available. Influenza Immunization, Current Season : Yes Anita Ko RN - 07/17/2021 19:15 EDT Pneumococcal Vaccine Previous Vaccines from Immunization Schedule : No qualifying data available. Pneumonia Immunization Received : No Pneumococcal Risk Assessment < Age 65 : None Anita Ko RN - 07/17/2021 19:15 EDT Order Details Patient Needs Meds Crushed/Liquid : No Anita Ko RN - 07/17/2021 19:15 EDT Nutrition History Adaptive Feeding Equipment : Regular Oral Medication Administration : By mouth Eating Poorly Due to Decreased Appetite : No Unplanned Weight Loss in Past 3-6 Months : No Malnutrition Screening Tool Total(mal) : 0 Malnutrition Screening Tool Risk Level : Patient not at risk Anita Ko RN - 07/17/2021 19:15 EDT [place] Suicide Severity Rating Scale (C-SSRS) CSSRS Past Month Wish to be : No CSSRS Past Month Suicidal Thoughts : No CSSRS Lifetime Suicide Behavior : No Suicide Severity Rating Score : 0 Suicide Severity Rating : No Additional Care Required at this time Anita Ko RN - 07/17/2021 19:15 EDT Psychosocial History Do You Have a History of the Following? : Patient denies history Currently in Unsafe Situation : No Anita Ko RN - 07/17/2021 19:15 EDT Sleep Apnea Risk Assmt Hx of [...] Sleep Apnea Risk Level Score : 3 Anita Ko RN - 07/17/2021 19:15 EDT Spiritual/Cultural Needs Any Spiritual/Cultural Needs or Requests : No Anita Ko RN - 07/17/2021 19:15 EDT Valuables and Belongings Valuables and Belongings : Clothing, Personal items Clothing : Common streetwear Clothing Disposition : With patient Personal Items : Cell phone Personal Items Disposition : With patient Anita Ko RN - 07/17/2021 19:15 EDT Electronically signed by Reyna Da Silva Conversion Ethylene Oxide Panelboard Operator Cerner at 05/27/2022 9:06 PM CDT documented in this encounter Plan of Treatment Not on file documented as of this encounter Visit Diagnoses Not on filedocumented in this encounter Care Teams Ship Runner Relationship Specialty Start Date End Date Linh Doty, 8 [facility] [address] [place] [address] PCP - General Family Medicine 11/04/22 Lizzie Alves PA-C [address] [facility], [facility] [address] [place] [address] Hospitalist Cardiology 05/27/23 Kaushik Mariscal MD [address] [facility] [address] [place] [address] Seniour Insight Manager Electrophysiology 11/18/23 documented as of this encounter
--- OUTSIDE RECORDS SUMMARY | 2024-07-27 14:21 | XMS_ITS | Encounter Summary ---
Author Organization [employer] [facility] Init iatives Address [address] [place] [address] Care Team Providers Care Construction Plant Operator Name Role Phone Linh Doty DO Primary Care Provider [phone] Lizzie Alves PA-C Unavailable [phone] Kaushik Mariscal MD Unavailable Encounter Details Date Type Department Care Team (Late st Contact Info) Description 07/24/2021 Transcribed Document [facility] [place] Family Medicine [address] [place] [address] ProviderChad MD [address] [place] [address] Social History Tobacco Use Types Packs/Day Years Used Date Smoking Tobacco: Never Assessed Comments Unknown Sex and Gender Information Value Date Recorded Sex Assigned at Not on file Legal Sex Female 3:27 PM CDT Gender Identity Not on file Sexual Orientation Not on file documented as of this encounter Miscellaneous Notes * Cerner Conversion Note - Chad Merchant MD - 07/24/2021 8:32 AM CDT Patient: GAGAN MENDOZA Age: 55 [...] with bloody drainage. Patient was admitted to [facility] on 07/16/2021. Post generator change, patient [...] explantation of her ICD device left chest. 07/24/2021 history reviewed. Awaiting explantation of ICD device. Continues on daptomycin and ceftriaxone changing to ceftriaxone and oral doxycycline until 08/15. No fever. Still has some drainage at ICD site. On 5 L/min nasal cannula oxygen. Review of Systems Constitutional: Weakness, Fatigue, No fever, No chills, No sweats. Eye Ear/Nose/Mouth/Throat Respiratory: No shortness of breath, No cough, No sputum production, No hemoptysis. Cardiovascular: No palpitations, No bradycardia. Gastrointestinal: No nausea, No vomiting, No diarrhea, No constipation, No heartburn, No abdominal pain. Genitourinary: No dysuria, No hematuria, No change in urine stream, No urethral discharge. Hematology/Lymphatics: No bleeding tendency. Endocrine Immunologic Musculoskeletal: [...] (Rocephin) - 2 Gram, IV Piggyback, Inj, [id number], infuse over 30 Minute(s), Routine DAPTOmycin + Sodium Chloride 0.9% intravenous solution 50 mL - 400 mg, IV Piggyback, Inj, [id number], infuse over 30 Minute(s), Routine Anticoagulant alteplase [...] Hypertension, Routine Physical Examination VS/Measurements Vital Measurements 07/24/2021 7:55 EDT Oxygen Flow Rate 5 Liter/Min , Vitals Signs (last 24 hrs) Last Charted Minimum Maximum Temp 97.1 (JUL 24 05:30) 97.1 (JUL 24 05:30) 98.2 (JUL 23 10:00) Mon HR 62 (JUL 24 07:52) 62 (JUL 24 07:52) 90 (JUL 23 21:18) Resp Rate 16 (JUL 24 05:30) 16 (JUL 23 17:59) 20 (JUL 23 15:27) SBP 114 (JUL 24 05:30) 94 (JUL 23 21:31) 114 (JUL 23 14:00) DBP 74 (JUL 24 05:30) 60 (JUL 23 21:31) 74 (JUL 23 17:59) MAP 85 (JUL 24 05:30) 69 (JUL 23 21:31) 86 (JUL 23 17:59) SpO2 94 (JUL 24 07:55) L 89 (JUL 23 19:00) 96 (JUL 23 14:00) General: Alert and oriented, Mild distress. Eye: Extraocular movements are intact, Normal conjunctiva. HENT: Normocephalic, Oral mucosa is moist, No pharyngeal erythema. Neck: Supple, Non-tender, No jugular venous distention, No lymphadenopathy. Respiratory: Respirations are non-labored, Breath sounds are equal, Symmetrical chest wall expansion, Few crackles left base. Cardiovascular: Normal rate, No gallop. Gastrointestinal: Soft, Non-tender, Non-distended, Normal bowel sounds, No organomegaly. Lymphatics: No lymphadenopathy neck, axilla, groin. Musculoskeletal: Normal range of motion, Normal strength, No tenderness, No deformity. Integumentary: Warm, Dry, [place], No pallor, No rash, ICD site left chest with no obvious drainage, bandage in place, and did not see the device. Neurologic: Alert, Oriented, No focal deficits, Normal deep tendon reflexes. Cognition and Speech: Oriented, Speech clear and coherent. Psychiatric: Cooperative, Appropriate mood & affect. Review / Management Results review: Labs (Last four charted values) WBC 6.6 (MADELEINE 12) 9.6 (MADELEINE 09) 8.4 (JUL 08) 7.4 (JUL 07) HB 15.2 (JUL 12) H 16.2 (MADELEINE 09) H 16.9 (MADELEINE 08) H 17.9 (JUL 07) HCT H 48.8 (MADELEINE 12) H [...] (MADELEINE 12) H 10.6 (MADELEINE 10) 10.0 (MADELEINE 09) 10.1 (MADELEINE 08) Lactic 1.0 (MADELEINE 07) PT 11.1 (MADELEINE 07) INR 1.0 (MADELEINE 07) AST 24 (MADELEINE 12) 22 (MADELEINE 10) 20 (MADELEINE 09) 23 (MADELEINE 08) ALT 24 (MADELEINE 12) 19 (MADELEINE 10) 21 (MADELEINE 09) 21 (MADELEINE 08) ALK P 106 (MADELEINE 12) 120 (MADELEINE 10) 114 (MADELEINE 09) 122 (MADELEINE 08) T Bili 0.3 (MADELEINE 12) 0.5 (MADELEINE 10) 0.6 (MADELEINE 09) 0.7 (MADELEINE 08) PTN 6.8 (MADELEINE 12) 7.3 (MADELEINE 10) 6.8 (MADELEINE 09) 7.0 (MADELEINE 08) ALB L 2.9 (MADELEINE 12) L 3.2 (MADELEINE 10) L 3.2 (MADELEINE 09) L 3.3 (MADELEINE 08) , ACC: [id number] ORDER: Culture Blood DATE: 07/16/2021 12:39 SOURCE: Blood SITE: Reports Final 07/21/2021 16:01 No growth at 5 days. Pre 07/20/2021 16:01 No growth at 4 days. Pre 07/19/2021 16:01 No growth at 3 days. Pre 07/18/2021 16:01 No growth at 2 days. Pre 07/17/2021 16:02 No growth at 1 day. Pre 07/17/2021 06:01 Culture less than 24 Hrs old == ACC: [id number] ORDER: Culture Blood DATE: 07/16/2021 12:39 SOURCE: Blood SITE: Reports Final 07/21/2021 16:01 No growth at 5 days. Pre 07/20/2021 16:01 No growth at 4 days. Pre 07/19/2021 16:01 No growth at 3 days. Pre 07/18/2021 16:01 No growth at 2 days. Pre 07/17/2021 16:02 No growth at 1 day. Pre 07/17/2021 06:01 Culture less than 24 Hrs old == [facility]: [id number] ORDER: Culture Wound and Stain DATE: 07/17/2021 08:34 SOURCE: Wound SITE: Chest L Reports Final 07/20/2021 07:46 No growth Pre 07/18/2021 06:24 No growth GS 07/17/2021 14:09 No cells seen No organisms seen. == . Impression and Plan 1. ICD site drainage with greatly increased risk for infection of underlying prosthetic device which was placed on 07/01/2021. Continues to drain with a hematoma formed because of anticoagulation although Eliquis previously held. Usual organisms would be skin magaly including staphylococcal species. Initial placement of device in 2011. Previous history of V. tach. The wound cultures with normal magaly. 2. Ischemic cardiomyopathy. 3. COPD with ongoing [...] 07/21 with no significant change in bilateral minimal infiltrates interstitial present on admission. 5 L/min nasal cannula on 07/24, worse. 8. Hypocalcemia, ongoing. 9. Thrombocytopenia, ongoing. 10. Hyponatremia, ongoing. Plan: 1. Diagnostically, continue to follow patient's physical exam, CBC, CMP, CRP, culture from ICD site (negative), blood cultures x2, negative to date. 2. Therapeutically, changed to ceftriaxone 2 g IV daily with doxycycline 100 mg p.o. twice daily in anticipation for outpatient IV antibiotics to continue for 2 to 4 weeks until 08/15/2021. 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 3. Continue local wound care. Critical that the device site is adequately healed. If continues to drain, at risk for loss of device. 4. Oxygen support therapy, 4 L/min nasal cannula on 07/17, 07/18, 07/19, 07/20, 07/22. 5 L/min on 07/24. 5. Possible explantation of ICD device 07/24/2021. Plan has been discussed with patient including side effects of medications and line. At increased risk for side effects of abx and line, readmission, need for explant of device. D/w previously Isis Katz RN, cardiology. Discussed with the patient's mother. Case management orders: Please arrange for outpatient IV antibiotics at home or local facility with ceftriaxone 2 g IV daily and doxycycline 100 mg p.o. twice daily until 08/15/2021. Check CBC, CMP, CRP weekly while on IV antibiotics. Weekly PICC dressing changes. Fax orders to [phone], call [phone] with final arrangements. Arrange for follow-up with me in 1 week post discharge. documented in this encounter Plan of Treatment Not on file documented as of this encounter Visit Diagnoses Not on filedocumented in this encounter Care Teams Construction Plant Operator Relationship Specialty Start Date End Date Linh Doty, [address] [facility] [address] [place] [address] PCP - General Family Medicine 11/04/22 Lizzie Alves PA-C [address] [place] [address], [facility] [address] [place] [address] Hospitalist Cardiology 05/27/23 Kaushik Mariscal MD [address] [facility] [address] [place] [address] Clinical Review Specialist Electrophysiology 11/18/23 documented as of this encounter
--- OUTSIDE RECORDS SUMMARY | 2024-07-27 14:21 | XMS_ITS | Encounter Summary ---
Author Organization [employer] [facility] Init iatives Address [address] [place] [address] Care Team Providers Care Quality Control Specialist Name Role Phone Linh Doty DO Primary Care Provider [phone] Lizzie Alves PA-C Unavailable [phone] Kaushik Mariscal MD Unavailable Encounter Details Date Type Department Care Team (Late st Contact Info) Description 07/01/2021 Transcribed Document [facility] [address] [place] [address] ProviderChad MD [address] [place] [address] Social History Tobacco Use Types Packs/Day Years Used Date Smoking Tobacco: Never Assessed Comments Unknown Sex and Gender Information Value Date Recorded Sex Assigned at Not on file Legal Sex Female 3:27 PM CDT Gender Identity Not on file Sexual Orientation Not on file documented as of this encounter Miscellaneous Notes * Cerner Conversion Note - Chad ProviderMD - 07/01/2021 7:38 PM CDT Event Note Entered On: 07/01/2021 19:39 EDT Performed On: 07/01/2021 19:38 EDT by ABBIE MANDUJANO RN Event Note Event Date/Time : 07/01/2021 19:35 EDT Description of Event : Report to Kelly SMITH on NICU. Pt trasnferred to NICU 6 via wheelchair with all belongings. ABBIE MANDUJANO RN - 07/01/2021 19:38 EDT documented in this encounter Plan of Treatment Not on file documented as of this encounter Visit Diagnoses Not on filedocumented in this encounter Care Teams Quality Control Specialist Relationship Specialty Start Date End Date Linh Doty, DO [address] [facility] [address] [place] [address] PCP - General Family Medicine 11/04/22 Lizzie Alves PA-C [address] [place] [address], [facility] [address] [place] [address] Hospitalist Cardiology 05/27/23 Kaushik Mariscal MD [address] [facility] [address] [place] [address] Stoner Hand Electrophysiology 11/18/23 documented as of this encounter
--- OUTSIDE RECORDS SUMMARY | 2024-07-27 14:21 | XMS_ITS | Encounter Summary ---
Author Organization [facility] Init iatives Address [address] [place] [address] Care Team Providers Care Automatic Steel Tie Adjuster Name Role Phone Linh Doty DO Primary Care Provider [phone] Lizzie Alves PA-C Unavailable [phone] Dion Mariscal MD Unavailable Encounter Details Date Type Department Care Team (Late st Contact Info) Description 07/24/2021 Transcribed Document [facility] Family Medicine [address] [place] [address] ProviderChad MD [address] [place] [address] Social History Tobacco Use Types Packs/Day Years Used Date Smoking Tobacco: Never Assessed Comments Unknown Sex and Gender Information Value Date Recorded Sex Assigned at Not on file Legal Sex Female 3:27 PM CDT Gender Identity Not on file Sexual Orientation Not on file documented as of this encounter Miscellaneous Notes * Cerner Conversion Note - Chad Merchant MD - 07/24/2021 10:42 AM CDT Patient: GAGAN MENDOZA Age: 55 Years [...] decrease risk of rhabdomyolysis. Dispo: PPM removal today. Will need to determine if she needs a new device after completing IV infections VTE Prophylaxis - Medical Sequential Compression Device Start: 07/19/21 9:35:00 EDT, Bilateral, Continuous Order (DION MARISCAL) Subjective Seen and exmained bedside. waiting for PPM out today Constitutional: [No fevers, chills, sweats] Eye: [No recent visual problems] ENMT: [No ear pain, nasal congestion, sore throat] Respiratory: [No shortness of breath, cough] Cardiovascular: [No Chest pain, palpitations, syncope] Gastrointestinal: [No nausea, vomiting, diarrhea] Genitourinary: [No hematuria] Vital Signs T: 36.2 ??C TMIN: 36.2 ??C TMAX: 36.8 ??C HR: 62(Monitored) RR: 16 BP: 114/74 SpO2: 94% Oxygen Settings (Last) Oxygen Therapy Mode: Nasal cannula (07/24/21 07:55:00) Oxygen Flow Rate: 5 Liter/Min (07/24/21 07:55:00) Intake & Output Totals Last 24 Hours (7a-7a) Input Total: 838 mL Output Total: 0 mL Balance: 838 mL Physical Exam General: [alert , well [...] , no rhonchi , no rales , on room air ] Heart: [normal rate, regular rhythm, _ [...] 100 mg= 1 Cap, Oral, BID, PRN doxycycline, 100 mg= 1 Cap, Oral, BID DuoNeb 0.5 mg-2.5 mg/3 mL inhalation solution, 3 mL, Nebulized Inhalation , Q8H ergocalciferol, [id number] Units= 1 Cap, Oral, Weekly Florastor, 250 [...] mg= 2 mL, IV Push, Q4H, PRN Electronically signed by Rekha, [facility] Conversion Joint Terminal Attack Controller Cerner at 05/27/2022 9:13 PM CDT documented in this encounter Plan of Treatment Not on file documented as of this encounter Visit Diagnoses Not on filedocumented in this encounter Care Teams Automatic Steel Tie Adjuster Relationship Specialty Start Date End Date Linh Doty, [address] [facility] [address] [place] [address] PCP - General Family Medicine 11/04/22 Lizzie Alves PA-C [address] [place] [address], [facility] [address] [place] [address] Hospitalist Cardiology 05/27/23 Dion Mariscal MD [address] [facility] [address] [place] [address] Assessment Expert Electrophysiology 11/18/23 documented as of this encounter
--- OUTSIDE RECORDS SUMMARY | 2024-07-27 14:21 | XMS_ITS | Encounter Summary ---
Author Organization [facility] Init iatives Address [address] [place] [address] Care Team Providers Care Body Painter Name Role Phone Linh Doty DO Primary Care Provider [phone] Lizzie Alves PA-C Unavailable [phone] Kaushik Mariscal MD Unavailable Encounter Details Date Type Department Care Team (Late st Contact Info) Description 07/02/2021 Transcribed Document [facility] [place] [address] [place] [address] ProviderChad MD [address] [place] [address] Social History Tobacco Use Types Packs/Day Years Used Date Smoking Tobacco: Never Assessed Comments Unknown Sex and Gender Information Value Date Recorded Sex Assigned at Not on file Legal Sex Female 3:27 PM CDT Gender Identity Not on file Sexual Orientation Not on file documented as of this encounter Miscellaneous Notes * Cerner Conversion Note - Chad Merchant MD - 07/02/2021 2:53 PM CDT Nursing Discharge Summary Entered On: 07/02/2021 14:55 EDT Performed On: 07/02/2021 14:53 EDT by Aimee Betancur RN-Resource Discharge Documentation Discharge Date/Time : 07/02/2021 14:40 EDT Patient Disposition, General : Discharge Discharge To : Home with ambulatory/outpatient follow-up Mode Of Departure, General Discharge : Air Accompanied By, Discharge : Spouse IV Discontinued : Yes Personal Belongings With Patient : Yes Prescriptions Given to Patient : Yes Medications Given to Patient : Yes Patient Education Completed : Yes Number of Prescriptions Given : 1 Teaching Method : Explanation Teaching Evaluation : Verbalizes understanding Aimee Betancur, RN-Resource - 07/02/2021 14:53 EDT documented in this encounter Plan of Treatment Not on file documented as of this encounter Visit Diagnoses Not on filedocumented in this encounter Care Teams Body Painter Relationship Specialty Start Date End Date Linh Doty, 8 [facility] [address] [place] [address] PCP - General Family Medicine 11/04/22 Lizzie Alves PA-C [address] [place] [address], [facility] [address] [place] [address] Hospitalist Cardiology 05/27/23 Kaushik Mariscal MD [address] [facility] [address] [place] [address] Print Developer Electrophysiology 11/18/23 documented as of this encounter
--- OUTSIDE RECORDS SUMMARY | 2024-07-27 14:22 | XMS_ITS | Encounter Summary ---
Author Organization [employer] [facility] Init iatives Address [address] [place] [address] Care Team Providers Care Fishing Tool Operator Name Role Phone Linh Doty DO Primary Care Provider [phone] Lizzie Alves PA-C Unavailable [phone] Kaushik Mariscal MD Unavailable Encounter Details Date Type Department Care Team (Late st Contact Info) Description 07/02/2021 Transcribed Document [facility] [place] Family Medicine [address] [place] [address] ProviderChad MD [address] [place] [address] Social History Tobacco Use Types Packs/Day Years Used Date Smoking Tobacco: Never Assessed Comments Unknown Sex and Gender Information Value Date Recorded Sex Assigned at Not on file Legal Sex Female 3:27 PM CDT Gender Identity Not on file Sexual Orientation Not on file documented as of this encounter Miscellaneous Notes * Kalia Conversion Note - Chad ProviderMD - 07/02/2021 2:02 PM CDT Spiritual Care Short Form Entered On: 07/02/2021 16:00 EDT Performed On: 07/02/2021 14:02 EDT by ROYAL VENTURA General Information, Spiritual Care Intervention/Comment/Summary Points : Routine visit with Mr. Chandler and her longtime boyfriend; Provided reflective conversation; Mr. Chandler expressed gratitude for visit ROYAL VENTURA - 07/02/2021 15:57 EDT documented in this encounter Plan of Treatment Not on file documented as of this encounter Visit Diagnoses Not on filedocumented in this encounter Care Teams Fishing Tool Operator Relationship Specialty Start Date End Date Linh Doty, DO [address] [facility] [address] [place] [address] PCP - General Family Medicine 11/04/22 Lizzie Alves PA-C [address] [place] [address], [facility] [address] [place] [address] Hospitalist Cardiology 05/27/23 Kaushik Mariscal MD [address] [facility] [address] [place] [address] All Source Intelligence Technician Electrophysiology 11/18/23 documented as of this encounter
--- OUTSIDE RECORDS SUMMARY | 2024-07-27 14:22 | XMS_ITS | Encounter Summary ---
Author Organization [employer] [facility] Init iatives Address [address] [place] [address] Care Team Providers Care Hoisting Engineer Name Role Phone Linh Doty DO Primary Care Provider Lizzie Alves PA-C Unavailable [phone] Kaushik Mariscal MD Unavailable Reason for Visit * Reason Comments Medication Refill Encounter Details Date Type Department Care Team (Late st Contact Info) Description 04/20/2023 Refill [facility] Cardiology [address] [place] [address] Pedro Cruz APRN [address] [facility] [address] [place] [address] Acute coronary thrombosis not resulting in myocardial infarction (HCC) Social History Tobacco Use Types Packs/Day [...] Date Mendez rded Speak language other than Turkish at home Not on file 02/27/2023 Want [...] as of this encounter Visit Diagnoses Diagnosis Acute coronary thrombosis not resulting in myocardial infarction (HCC) documented in this encounter Care Teams Hoisting Engineer Relationship Specialty Start Date End Date Linh Doty, DO [address] [facility] [address] [place] [address] PCP - General Family Medicine 11/04/22 Lizzie Alves PA-C [address] [place] [address], [facility] [address] [place] [address] Hospitalist Cardiology 05/27/23 Kaushik Mariscal MD [address] [facility] [address] [place] [address] Corporation Lawyer Electrophysiology 11/18/23 documented as of this encounter
--- OUTSIDE RECORDS SUMMARY | 2024-07-27 14:22 | XMS_ITS | Encounter Summary ---
Author Organization [employer] [facility] Init iatives Address [address] [place] [address] Care Team Providers Care Superintendent Terminal Name Role Phone Linh Doty DO Primary Care Provider [phone] Lizzie Alves PA-C Unavailable [phone] Kaushik Mariscal MD Unavailable Reason for Visit * Reason Comments Medication Refill Encounter Details Date Type Department Care Team (Late st Contact Info) Description 04/25/2023 Refill [facility] Cardiology [address] [place] [address] Lenka Benavidez MD [address] [facility] [address] [place] [address] Atherosclerotic heart disease of [place] coronary artery without angina pectoris; Personal history of other diseases of the circulatory system Social History Tobacco Use Types Packs/Day Years [...] Date Mendez rded Speak language other than [place] African at home Not on file 02/27/2023 Want [...] as of this encounter Visit Diagnoses Diagnosis Atherosclerotic heart disease of [place] coronary artery without angina pectoris Personal history of other diseases of the circulatory system documented in this encounter Care Teams Superintendent Terminal Relationship Specialty Start Date End Date Linh Doty, DO [address] [facility] [address] [place] [address] PCP - General Family Medicine 11/04/22 Lizzie Alves PA-C [address] [facility] [address] [place] [address] Hospitalist Cardiology 05/27/23 Kaushik Mariscal MD [address] [facility] [address] [place] [address] Supervisor [employer] Electrophysiology 11/18/23 documented as of this encounter
--- OUTSIDE RECORDS SUMMARY | 2024-07-27 14:22 | XMS_ITS | Encounter Summary ---
Author Organization [employer] [facility] Init iatives Address [address] [place] [address] Care Team Providers Care Watch Assembly Inspector Name Role Phone Linh Doty DO Primary Care Provider [phone] Lizzie Alves PA-C Unavailable [phone] Kaushik Mariscal MD Unavailable Encounter Details Date Type Department Care Team (Late st Contact Info) Description 07/25/2021 Transcribed Document [facility] [place] [address] [place] [address] ProviderChad MD [address] [place] [address] Social History Tobacco Use Types Packs/Day Years Used Date Smoking Tobacco: Never Assessed Comments Unknown Sex and Gender Information Value Date Recorded Sex Assigned at Not on file Legal Sex Female 3:27 PM CDT Gender Identity Not on file Sexual Orientation Not on file documented as of this encounter Miscellaneous Notes * Cerner Conversion Note - Chad Merchant MD - 07/25/2021 10:19 AM CDT Patient: GAGAN MENDOZA Age: 55 [...] with bloody drainage. Patient was admitted to [facility] on 07/16/2021. Post generator change, [...] site. On 5 L/min nasal cannula oxygen. 07/25/2021 history reviewed. Low-grade fevers. Status post explantation of ICD device 07/24 without obvious infection in pocket. Changing to cefdinir 300 mg p.o. twice daily until 08/01, and doxycycline until 08/15/2021. 5 L/min nasal cannula oxygen. Review of [...] (Rocephin) - 2 Gram, IV Piggyback, Inj, [id number], infuse over 30 Minute(s), Routine doxycycline - 100 mg, Oral, Cap, BID, Routine Anticoagulant alteplase 1 mg + syringe [...] Hypertension, Routine Physical Examination VS/Measurements Vital Measurements 07/25/2021 9:34 EDT Oxygen Flow Rate 5 Liter/Min , Vitals Signs (last 24 hrs) Last Charted Minimum Maximum Temp 97.8 (JUL 25 05:31) 97.8 (JUL 25 05:31) 99.1 (JUL 24 21:00) Mon HR 104 (JUL 25 09:34) 65 (JUL 24 16:00) 104 (JUL 25 09:34) Resp Rate 20 (JUL 25 09:34) 16 (JUL 24 14:55) H 22 (JUL 24 19:10) SBP L 89 (JUL 25 09:34) L 81 (JUL 25 04:00) H 143 (JUL 24 14:55) DBP 61 (JUL 25 09:34) L 48 (JUL 25 04:00) 82 (JUL 24 18:00) MAP 70 (JUL 25 09:34) 54 (JUL 25 04:00) 103 (JUL 24 14:55) SpO2 L 92 (JUL 25:34) L 91 (JUL 24 12:00) 100 (JUL 24 14:50) General: Alert and oriented, Mild distress. Eye: Extraocular movements are intact, Normal conjunctiva. HENT: Normocephalic, Oral mucosa is moist. Neck: Supple, Non-tender, No jugular venous distention, No lymphadenopathy. Respiratory: Respirations are non-labored, Breath sounds are equal, Symmetrical chest wall expansion, No chest wall tenderness, Few crackles left base. Cardiovascular: Normal rate, No gallop. Gastrointestinal: Soft, Non-tender, Non-distended, Normal bowel sounds, No organomegaly. Lymphatics: No lymphadenopathy neck, axilla, groin. Musculoskeletal: Normal range of motion, Normal strength, No tenderness, No deformity. Integumentary: Warm, Dry, [employer], No pallor, No rash, ICD site left chest with no obvious drainage, bandage in place, and did not see the device. Neurologic: Alert, Oriented, No focal deficits, Normal deep tendon reflexes. Cognition and Speech: Oriented, Speech clear and coherent. Psychiatric: Cooperative, Appropriate mood & affect. Review / Management Results review: Labs (Last four charted values) WBC 8.6 (MADELIENE 16) 7.6 (MADELEINE 15) 6.6 (MADELEINE 12) 9.6 (MADELEINE 09) HB 15.3 (MADELEINE 16) H 16.6 (MADELEINE 15) 15.2 (MADELEINE 12) H 16.2 (MADELEINE 09) HCT H 49.2 (MADELEINE 16) H 52.9 (MADELEINE 15) H 48.8 (MADELEINE 12) H 52.1 (MADELEINE 09) Plt L 116 (MADELEINE 16) L 112 (MADELEINE 15) L 105 (MADELEINE 12) L 106 (MADLEEINE 09) Na L 134 (MADELEINE 16) 137 (MADELEINE 15) L 135 (MADELEINE 12) 136 (MADELEINE 10) K 4.1 (MADELEINE 16) 4.2 (MADELEINE 15) 4.3 (MADELEINE 12) 4.0 (MADELEINE 10) Cl L 98 (MADEELINE 16) L 100 (MADELEINE 15) 102 (MADELEINE 12) L 99 (MADELEINE 10) CO2 32 (MADELEINE 16) 32 (MADELEINE 15) 32 (MADELEINE 12) H 34 (MADELEINE 10) BUN 17 (MADELEINE 16) 22 (MADELEINE 15) 19 (MADELEINE 12) 12 (MADELEINE 10) Cr 0.90 (MADELEINE 16) 0.70 (MADELEINE 15) 0.70 (MADELEINE 12) 0.90 (MADELEINE 10) Glu R 104 (MADELEINE 16) 100 (MADELEINE 15) 103 (MADELEINE 12) 101 (MADELEINE 10) Ca H 10.5 (MADELEINE 16) H 11.0 (MADELEINE 15) H 10.3 (MADELEINE 12) H 10.6 (MADELEINE 10) Lactic 1.0 (MADELEINE 07) PT 11.1 (MADELEINE 07) INR 1.0 (MADELEINE 07) AST 25 (MADELEINE 16) 24 (MADELEINE 12) 22 (MADELEINE 10) 20 (MADELEINE 09) ALT 24 (MADELEINE 16) 24 (MADELEINE 12) 19 (MADELEINE 10) 21 (MADELEINE 09) ALK P 101 (MADELEINE 16) 106 (MADELEINE 12) 120 (MADELEINE 10) 114 (MADELEINE 09) T Bili 0.6 (MADELEINE 16) 0.3 (MADELEINE 12) 0.5 (MADELEINE 10) 0.6 (MADELEINE 09) PTN 7.0 (MADELEINE 16) 6.8 (MADELEINE 12) 7.3 (MADELEINE 10) 6.8 (MADELEINE 09) ALB L 3.0 (MADELEINE 16) L 2.9 (MADELEINE 12) L 3.2 (MADELEINE 10) L 3.2 (MADELEINE 09) , ACC: [id number] ORDER: Culture Wound and Stain DATE: 07/24/2021 13:45 SOURCE: Surgical Swab SITE: Pacemaker Pocket Reports Pre 07/25/2021 06:34 No growth GS 07/24/2021 21:55 No organisms seen. No cells seen == ACC: [id number] ORDER: Culture Catheter Tip DATE: 07/24/2021 13:45 SOURCE: Catheter Tip SITE: Pacemaker Pocket Reports Pre 07/25/2021 06:33 No growth == ACC: [id number] ORDER: Culture Blood DATE: 07/16/2021 12:39 SOURCE: Blood SITE: Reports Final 07/21/2021 16:01 No growth at 5 days. Pre 07/20/2021 16:01 No growth at 4 days. Pre 07/19/2021 16:01 No growth at 3 days. Pre 07/18/2021 16:01 No growth at 2 days. Pre 07/17/2021 16:02 No growth at 1 day. Pre 07/17/2021 06:01 Culture less than 24 Hrs old == ACC: [id number] ORDER: Culture Blood DATE: 07/16/2021 12:39 SOURCE: Blood SITE: Reports Final 07/21/2021 16:01 No growth at 5 days. Pre 07/20/2021 16:01 No growth at 4 days. Pre 07/19/2021 16:01 No growth at 3 days. Pre 07/18/2021 16:01 No growth at 2 days. Pre 07/17/2021 16:02 No growth at 1 day. Pre 07/17/2021 06:01 Culture less than 24 Hrs old == ACC: [id number] ORDER: Culture Wound and Stain DATE: 07/17/2021 [...] V. tach. The wound cultures with normal magaly, and surgical site culture negative with no obvious purulence at surgery with explantation on 07/24/2021. 2. Ischemic cardiomyopathy. 3. COPD with ongoing smoking. Exacerbation, new? 4. Hypercalcemia. Continues. 5. Polycythemia probably related to underlying COPD. 6. Hypoalbuminemia, ongoing. 7. Acute hypoxic respiratory failure on 4 L/min on 07/17/2021, likely related to CHF or COPD exacerbation. 4 L/min on 07/18, and chest x-ray 07/16 with interstitial changes likely chronic per radiology.. Chest x-ray 07/21 with no significant change in bilateral minimal infiltrates interstitial present on admission. 5 L/min nasal cannula on 07/24, 07/25. 8. Hypocalcemia, ongoing. 9. Thrombocytopenia, ongoing. 10. Hyponatremia, worse. Plan: 1. Diagnostically, continue to follow patient's physical exam, CBC, CMP, CRP, culture from ICD site (negative), blood cultures x2, negative to date. 2. Therapeutically, changed to cefdinir 300 mg p.o. twice daily, doxycycline 100 mg p.o. twice daily to continue until 08/01/2021, then doxycycline alone until 08/15/2021. No obvious pacemaker pocket infection at surgery. 3. Continue local wound care. Critical that [...] RN, cardiology. Discussed with the patient's mother. Discussed with cardiology. Electronically signed by Interface, [facility] Conversion Water Quality Assistant Cerner at 05/27/2022 8:58 PM CDT documented in this encounter Plan of Treatment Not on file documented as of this encounter Visit Diagnoses Not on filedocumented in this encounter Care Teams Watch Assembly Inspector Relationship Specialty Start Date End Date Linh Doty, 8 [facility] [address] [place] [address] PCP - General Family Medicine 11/04/22 Lizzie Alves PA-C [address] [facility], [facility] [address] [place] [address] Hospitalist Cardiology 05/27/23 Kaushik Mariscal MD 14[address] [facility] [address] [place] [address] Court Worker Electrophysiology 11/18/23 documented as of this encounter
--- OUTSIDE RECORDS SUMMARY | 2024-07-27 14:22 | XMS_ITS | Encounter Summary ---
Author Organization [facility] [facility] Init iatives Address [address] [place] [address] Care Team Providers Care First Assist Name Role Phone Linh Doty DO Primary Care Provider [phone] Lizzie Alves PA-C Unavailable [phone] Kaushik Mariscal MD Unavailable Encounter Details Date Type Department Care Team (Late st Contact Info) Description 07/25/2021 Transcribed Document [facility] [place] Family Medicine [address] [place] [address] ProviderChad MD [address] [place] [address] Social History Tobacco Use Types Packs/Day Years Used Date Smoking Tobacco: Never Assessed Comments Unknown Sex and Gender Information Value Date Recorded Sex Assigned at Not on file Legal Sex Female 3:27 PM CDT Gender Identity Not on file Sexual Orientation Not on file documented as of this encounter Miscellaneous Notes * Cerner Conversion Note - Chad ProviderMD - 07/25/2021 5:00 AM CDT Chart Check - Review Order Profile Entered On: 07/25/2021 3:47 EDT Performed On: 07/25/2021 5:00 EDT by Jessica Recinos Lpn Chart Check Powerplans Initiated/Discontinued as Appropriate : Yes All Active Orders Reviewed : Yes Jessica Recinos Lpn - 07/25/2021 3:47 EDT documented in this encounter Plan of Treatment Not on file documented as of this encounter Visit Diagnoses Not on filedocumented in this encounter Care Teams First Assist Relationship Specialty Start Date End Date Linh Doty, 8 [facility] [address] [place] [address] PCP - General Family Medicine 11/04/22 Lizzie Alves PA-C [address] [place] [address], [address] [place] [address] Hospitalist Cardiology 05/27/23 Kaushik Mariscal MD [address] [facility] [address] [place] [address] Management Information Systems Director Electrophysiology 11/18/23 documented as of this encounter
--- OUTSIDE RECORDS SUMMARY | 2024-07-27 14:22 | XMS_ITS | Encounter Summary ---
Author Organization [employer] [facility] Init iatives Address [address] [place] [address] Care Team Providers Care Poured Concrete Wall Technician Name Role Phone Linh Doty DO Primary Care Provider Lizzie Alves PA-C Unavailable [phone] Kaushik Mariscal MD Unavailable Encounter Details Date Type Department Care Team (Late st Contact Info) Description 07/29/2021 Transcribed Document [facility] [place] Family Medicine [facility] [place] [address] ProviderChad MD [address] [place] [address] Social History Tobacco Use Types Packs/Day Years Used Date Smoking Tobacco: Never Assessed Comments Unknown Sex and Gender Information Value Date Recorded Sex Assigned at Not on file Legal Sex Female 3:27 PM CDT Gender Identity Not on file Sexual Orientation Not on file documented as of this encounter Miscellaneous Notes * Cerner Conversion Note - Chad Merchant MD - 07/29/2021 3:50 PM CDT UM Authorization Entered On: 07/29/2021 15:51 EDT Performed On: 07/29/2021 15:50 EDT by Bonita Katz, Finishing And Shipping Supervisor Primary Insurance Authorization Authorization and Policy Numbers : Insurance 1 Health Plan: [employer] MEDICARE Policy Number: [id number] Authorization Number: Insurance Primary Name : [employer] MEDICARE Policy Number: [id number] Authorization Status-Primary : Admit approved Auth/Referral Contact Name-Primary : BRADY Reference Number-Primary : [id number] Authorization Number-Primary : [id number] Number of Days Authorized-Primary : 5 Day(s) Authorized Service Begin Date-Primary : 07/16/2021 EDT Authorized Service End Date-Primary : 07/21/2021 EDT Authorization Comments-Primary : Discharge summary as well as continued stay clinical 07/23 - discharge faxed. Historical Authorization Comments-Primary : Comment 1: 07/20-07/22 CLINICALS FAXED VIA [employer] (Yessi Alaniz, SARAH 07/22/2021 16:49) Comment 2: PER PORTAL IP APPROVED FOR 07/16 UP TO BUT NOT INCLUDING 07/22 (Khushi Jones, Rn-Utilization Review 07/19/2021 13:56) Comment 3: UNDER REVIEW PER WC PORTAL (Khushi Jones, Rn-Utilization Review 07/19/2021 09:22) Comment 4: CLINICAL FAXED VIA [employer] (Khushi Jones, Rn-Utilization Review 07/17/2021 15:22) Comment 5: REF# PER GUME. CLINICAL FAXED VIA [employer] (Khushi Jones, Rn-Utilization Review 07/17/2021 15:17) Bonita Katz, Finishing And Shipping Supervisor - 07/29/2021 15:50 EDT documented in this encounter Plan of Treatment Not on file documented as of this encounter Visit Diagnoses Not on filedocumented in this encounter Care Teams Poured Concrete Wall Technician Relationship Specialty Start Date End Date Linh Doty, 8 [facility] [address] [place] [address] PCP - General Family Medicine 11/04/22 Lizzie Alves PA-C [address] [facility], [facility] [address] [place] [address] Hospitalist Cardiology 05/27/23 Kaushik Mariscal MD 14[address] [facility] [address] [place] [address] Assistant Professor Of Radiology Electrophysiology 11/18/23 documented as of this encounter
--- OUTSIDE RECORDS SUMMARY | 2024-07-27 14:22 | XMS_ITS | Encounter Summary ---
Author Organization [facility] Init iatives Address [address] [place] [address] Care Team Providers Care Wallpaper Scraper Name Role Phone Linh Doty DO Primary Care Provider [phone] Lizzie Alves PA-C Unavailable [phone] Kaushik Mariscal MD Unavailable Encounter Details Date Type Department Care Team (Late st Contact Info) Description 07/25/2021 Transcribed Document [facility] [place] Family Medicine [address] [place] [address] ProviderChad MD [address] [place] [address] Social History Tobacco Use Types Packs/Day Years Used Date Smoking Tobacco: Never Assessed Comments Unknown Sex and Gender Information Value Date Recorded Sex Assigned at Not on file Legal Sex Female 3:27 PM CDT Gender Identity Not on file Sexual Orientation Not on file documented as of this encounter Miscellaneous Notes * Cerner Conversion Note - Chad Merchant MD - 07/25/2021 5:30 PM CDT Nursing Discharge Summary Entered On: 07/25/2021 16:09 EDT Performed On: 07/25/2021 17:30 EDT by Caryl Estrada RN-[facility] Paradigm Discharge Documentation Discharge Date/Time : 07/25/2021 17:30 EDT Patient Disposition, General : Discharge Discharge To : Home with ambulatory/outpatient follow-up Mode Of Departure, General Discharge : Private vehicle, Wheelchair Accompanied By, Discharge : Significant other IV Discontinued : Yes Personal Belongings With Patient : Yes Pt's Own Supply of Medications Returned : No patient supply of medications to return Prescriptions Given to Patient : No Medications Given to Patient : Yes Number of Medications Given : 3 HERNAN SNOW RN - 07/25/2021 17:48 EDT Discharge Instructions Reviewed With, Opportunity For Questions Given : Patient Patient Education Completed : Yes Teaching Method : Explanation, Printed materials Teaching Evaluation : Verbalizes understanding Education Comment : room secured for teaching, consented to teaching. Instructed on condition, procedure, medication, diet activity and follow up appointment Caryl Estrada RN-[employer] - 07/25/2021 16:08 EDT Electronically signed by [facility], [facility] Conversion Display Designer Outside Cerner at 05/27/2022 9:01 PM CDT documented in this encounter Plan of Treatment Not on file documented as of this encounter Visit Diagnoses Not on filedocumented in this encounter Care Teams Wallpaper Scraper Relationship Specialty Start Date End Date Linh Doty, DO 8 [facility] [address] [place] [address] PCP - General Family Medicine 11/04/22 Lizzie Alves PA-C 1401 [facility], [facility] [address] [place] [address] Hospitalist Cardiology 05/27/23 Kaushik Mariscal MD 1401 [facility] [address] [place] [address] Jelly Maker Electrophysiology 11/18/23 documented as of this encounter
--- OUTSIDE RECORDS SUMMARY | 2024-07-27 14:22 | XMS_ITS | Encounter Summary ---
Author Organization [employer] [facility] Init iatives Address [address] [place] [address] Care Team Providers Care Insurance Agency Owner Name Role Phone Linh Doty DO Primary Care Provider [phone] Lizzie Alves PA-C Unavailable [phone] Kaushik Mariscal MD Unavailable Encounter Details Date Type Department Care Team (Late st Contact Info) Description 07/02/2021 Transcribed Document [facility] [place] Family Medicine [address] [place] [address] ProviderChad MD [address] [place] [address] Social History Tobacco Use Types Packs/Day Years Used Date Smoking Tobacco: Never Assessed Comments Unknown Sex and Gender Information Value Date Recorded Sex Assigned at Not on file Legal Sex Female 3:27 PM CDT Gender Identity Not on file Sexual Orientation Not on file documented as of this encounter Miscellaneous Notes * Cerner Conversion Note - Chad ProviderMD - 07/02/2021 12:37 PM CDT Event Note Entered On: 07/02/2021 12:38 EDT Performed On: 07/02/2021 12:37 EDT by Aimee Betancur RN-Resource Event Note Description of Event : case managment at bedside. Patient is requiring oxygen at this time but has declined going home on it. will cont to monitor. Aimee Betancur RN-Resource - 07/02/2021 12:37 EDT documented in this encounter Plan of Treatment Not on file documented as of this encounter Visit Diagnoses Not on filedocumented in this encounter Care Teams Insurance Agency Owner Relationship Specialty Start Date End Date Linh Doty, DO [address] [facility] [address] [place] [address] PCP - General Family Medicine 11/04/22 Lizzie Alves PA-C [address] [place] [address], [facility] [address] [place] [address] Hospitalist Cardiology 05/27/23 Kaushik Mariscal MD [address] [facility] [address] [place] [address] Web Content Manager Electrophysiology 11/18/23 documented as of this encounter
--- OUTSIDE RECORDS SUMMARY | 2024-07-27 14:22 | XMS_ITS | Encounter Summary ---
Author Organization [employer] [facility] Init iatives Address [address] [place] [address] Care Team Providers Care Chief Jailer Name Role Phone Linh Doty DO Primary Care Provider [phone] Lizzie Alves PA-C Unavailable [phone] Kaushik Mariscal MD Unavailable Encounter Details Date Type Department Care Team (Late st Contact Info) Description 07/25/[address] [facility] [place] Family Medicine [address] [place] [address] ProviderChad MD [address] [place] [address] Social History Tobacco Use Types Packs/Day Years Used Date Smoking Tobacco: Never Assessed Comments Unknown Sex and Gender Information Value Date Recorded Sex Assigned at Not on file Legal Sex Female 3:27 PM CDT Gender Identity Not on file Sexual Orientation Not on file documented as of this encounter Miscellaneous Notes * Cerner Conversion Note - Chad Merchant MD - 07/25/2021 11:59 AM CDT Meds to Bed Enrollment Entered On: 07/25/2021 11:59 EDT Performed On: 07/25/2021 11:59 EDT by Ronaldo Mccollum, RESIDENTIAL AIDE-PHARMACY Meds to Bed Enrollment Patient Enrollment Decision: : Yes/enroll in meds to bed program Ronaldo Mccollum, RESIDENTIAL AIDE-PHARMACY - 07/25/2021 11:59 EDT documented in this encounter Plan of Treatment Not on file documented as of this encounter Visit Diagnoses Not on filedocumented in this encounter Care Teams Chief Jailer Relationship Specialty Start Date End Date Linh Doty, 8 [facility] [address] [place] [address] PCP - General Family Medicine 11/04/22 Lizzie Alves PA-C 14[address] [facility], [facility] [address] [place] [address] Hospitalist Cardiology 05/27/23 Kaushik Mariscal MD 1401 [facility] [address] [place] [address] Steam Pipe Fitter Electrophysiology 11/18/23 documented as of this encounter
--- OUTSIDE RECORDS SUMMARY | 2024-07-27 14:22 | XMS_ITS | Encounter Summary ---
Author Organization [employer] [facility] Init iatives Address [address] [place] [address] Care Team Providers Care Cigar Packer And Grader Name Role Phone Linh Doty DO Primary Care Provider [phone] Lizzie Alves PA-C Unavailable [phone] Kaushik Mariscal MD Unavailable Encounter Details Date Type Department Care Team (Late st Contact Info) Description 07/25/2021 Transcribed Document [facility] [place] [facility] [place] [address] ProviderChad MD [address] [place] [address] Social History Tobacco Use Types Packs/Day Years Used Date Smoking Tobacco: Never Assessed Comments Unknown Sex and Gender Information Value Date Recorded Sex Assigned at Not on file Legal Sex Female 3:27 PM CDT Gender Identity Not on file Sexual Orientation Not on file documented as of this encounter Miscellaneous Notes * Cerner Conversion Note - Chad Merchant MD - 07/25/2021 12:05 PM CDT Stroke/Warfarin Instructions Entered On: 07/25/2021 12:06 EDT Performed On: 07/25/2021 12:05 EDT by Caryl Estrada RN-[facility] Stroke/Warfarin Instructions Stroke/TIA Discharge Ins : N/A Warfarin Discharge Ins : N/A Caryl Estrada RN-[facility] - 07/25/2021 12:05 EDT Education Topics: Anticoagulant Education Anticoagulant : Anticoagulant other than warfarin Compliance Issues *Q : Verbalizes understanding Diet *Q : Verbalizes understanding Adverse drug reactions/interactions *Q : Verbalizes understanding Action/Interaction with Other Drugs : Verbalizes understanding Follow-up care/monitoring *Q : Verbalizes understanding Follow-up Care Details : Physician's office/clinic Caryl Estrada, SARAH-[facility] - 07/25/2021 12:05 EDT Electronically signed by [facility], [facility] Conversion Civil Design Technician Cerner at 05/27/2022 9:13 PM CDT documented in this encounter Plan of Treatment Not on file documented as of this encounter Visit Diagnoses Not on filedocumented in this encounter Care Teams Cigar Packer And Grader Relationship Specialty Start Date End Date Linh Doty, 8 [facility] [address] [place] [address] PCP - General Family Medicine 11/04/22 Lizzie Alves PA-C 1401 [facility], [facility] [address] [place] [address] Hospitalist Cardiology 05/27/23 Kaushik Mariscal MD [address] [facility] [address] [place] [address] Seamer Elastic Band Electrophysiology 11/18/23 documented as of this encounter
--- OUTSIDE RECORDS SUMMARY | 2024-07-27 14:22 | XMS_ITS | Encounter Summary ---
Author Organization [employer] [facility] Init iatives Address [address] [place] [address] Care Team Providers Care Magazine Writer Name Role Phone Linh Doty DO Primary Care Provider [phone] Lizzie Alves PA-C Unavailable [phone] Dion Mariscal MD Unavailable Encounter Details Date Type Department Care Team (Late st Contact Info) Description 07/02/2021 Transcribed Document [facility] [place] [address] [place] [address] ProviderChad MD [address] [place] [address] Social History Tobacco Use Types Packs/Day Years Used Date Smoking Tobacco: Never Assessed Comments Unknown Sex and Gender Information Value Date Recorded Sex Assigned at Not on file Legal Sex Female 3:27 PM CDT Gender Identity Not on file Sexual Orientation Not on file documented as of this encounter Miscellaneous Notes * Cerner Conversion Note - Chad Merchant MD - 07/02/2021 10:47 AM CDT Patient: GAGAN MENDOZA Age: 55 years Sex: Female : 1965 Associated Diagnoses: None Author: DION MARISCAL MD-CAR No qualifying data available [facility] Cardiology Discharge Note - EP Primary Plastic Fixture Builder: Pedro Bustamante NP PCP: Linh Doty Consults: NONE History of [...] carvedilol if there is any more arrhythmias. Thank you very much to Pedro Bustamante for allowing me to participate in the care of this patient. Ms. Mendoza returned to clinic on 06/27/2021 [...] wants to stay overnight which is okay. Admitting Diagnosis: 1. ROSA on device Surgical History: History of Cardio-defib Pulse Generator Type Single-Chamber ?? St Sony Implantable Cardioverter-Defibrillator History of Uterine Surgery Pertinent Labs/Results Blood Gases (Current Encounter/Past 24 Hours) No Blood Gas Results Found (Past 24 Hours) Labs (Last four charted values) WBC 8.2 (JULY 01) HB H 18.7 (JULY 01) HCT H 58.0 (JULY 01) Plt L 142 (JULY 01) Na 140 (JULY 01) K 4.2 (JULY 01) Cl 105 (JULY 01) CO2 31 (JULY 01) BUN 13 (JULY 01) Cr 0.90 (JULY 01) Glu R 93 (JULY 01) Ca H 10.6 (JULY 01) General: Alert and oriented. Eye: Pupils are [...] Normal range of motion. Integumentary: Warm, Dry, [place]. Pacemaker site stable, dressing CDI, no hematoma or bleeding at site. Neurologic: Alert, Oriented. Psychiatric: Cooperative, Appropriate mood & affect. Telemetry: SR 76 Procedures this admission: Conclusion: Successful Procedure(s) of: 1. SINGLE CHAMBER SYSTEM REPLACEMENT - [facility] Discharge Diagnoses: 1. Successful generator change Discharge Medications: 1. Carvedilol 12.5 MG Oral Tablet; TAKE ONE TABLET BY MOUTH TWICE DAILY 2. Clopidogrel Bisulfate 75 MG Oral Tablet; TAKE ONE TABLET BY MOUTH EVERY DAY 3. HOLD Eliquis 5 MG Oral Tablet until your 1 week follow up with Dr. Mariscal 4. Fluticasone [...] BEDTIME 14. Vitamin D (Ergocalciferol) 1.25 MG (30890 UT) Oral Capsule; TAKE ONE CAPSULE BY MOUTH ONCE A WEEK Allergies (1) Active Reaction NKDA Disposition: Patient sent home in stable condition with family support. Discharge Instructions: Cardiac Diet. Post Pacemaker instructions Activity as tolerated. Smoking cessation and risk factor modification addressed. Followup Appointments: PCP in 5 - 7 days. Primary Plastic Fixture Builder in [address] Mariscal in 1 week wound/device check Patient has been instructed on and verbalized an understanding of the above discharge instructions. Plan has been discussed and is in agreement with Dr. Davey Katz, RN documenting for Dr. Mariscal Electronically signed by [facility], [facility] Conversion Uncrater Cerner at 05/27/2022 9:21 PM CDT documented in this encounter Plan of Treatment Not on file documented as of this encounter Visit Diagnoses Not on filedocumented in this encounter Care Teams Magazine Writer Relationship Specialty Start Date End Date Linh Doty, DO [address] [facility] [address] [place] [address] PCP - General Family Medicine 11/04/22 Lizzie Alves PA-C [address] [facility], [facility] [address] [place] [address] Hospitalist Cardiology 05/27/23 Dion Mariscal MD [address] [facility] [address] [place] [address] Plastic Fixture Builder Electrophysiology 11/18/23 documented as of this encounter
--- OUTSIDE RECORDS SUMMARY | 2024-07-27 14:22 | XMS_ITS | Encounter Summary ---
Author Organization [employer] [facility] Init iatives Address [address] [place] [address] Care Team Providers Care Wood Turner Name Role Phone Linh William DO Primary Care Provider [phone] Lizzie Alves PA-C Unavailable [phone] Dion Lin MD Unavailable Encounter Details Date Type Department Care Team (Late st Contact Info) Description 07/25/2021 Transcribed Document [facility] [place] Family Medicine [address] [place] [address] ProviderChad MD [address] [place] [address] Social History Tobacco Use Types Packs/Day Years Used Date Smoking Tobacco: Never Assessed Comments Unknown Sex and Gender Information Value Date Recorded Sex Assigned at Not on file Legal Sex Female 3:27 PM CDT Gender Identity Not on file Sexual Orientation Not on file documented as of this encounter Miscellaneous Notes * Cerner Conversion Note - Chad Merchant MD - 07/25/2021 11:57 AM CDT Patient: LENA MENDOZA Age: 55 Years Sex: Female : 1965 Admit Date 07/16/2021 14:13 Discharge Date 07/25/21 Primary Care Provider LINH WILLIAM DO-[facility] Discharge Diagnosis AICD pocket hematoma 07/16/2021 T82.837A ICD-10-CM Procedures ICD removal Studies PORTABLE CHEST 07/16/2021 12:39 PM HISTORY: Anterior chest pain. COMPARISON: July 02, 2021 FINDINGS: The heart is proper size. The mediastinum is unremarkable. Diffuse interstitial changes are probably chronic. The lungs are otherwise clear. There is no pneumothorax. The osseous structures are unremarkable. A pacemaker overlies the left chest. IMPRESSION: No acute cardiopulmonary process. Continued follow-up is recommended. [1] DATE OF PROCEDURE: 07/24/2021 SURGEON: Abbe Holley MD PREOPERATIVE DIAGNOSIS: ICD pocket dehiscence, status post recent ICD generator replacement. PROCEDURE: ICD system extraction with transvenous laser extraction. [2] TTE procedure: EC Echo Complete. Patient Status: Routine IP Study Location: PortableTechnical Quality: Adequate visualization Allergies - No known allergies. Impression: Indication: Ischemic Cardiomyopathy I25.5 2 ml's of Optison ultrasound enhancing agent administered to enhance endocardial borders. Normal sized left ventricle. Mild left ventricular hypertrophy. Visually estimated ejection fraction 40% +/- 5%. *Stable LV thombus noted. Seen on previous echo.* Abnormal left ventricular systolic function. Abnormal diastolic function with normal LV filling pressures (Grade 1 diastolic dysfunction). No hemodynamically significant valvular heart disease. No masses or thrombi are seen. [3] Reason for Hospitalization ICD pocket hematoma Hospital Course 55F who presented on 07/16/21 with hematoma around her ICD pocket after a recent generator change. She was previously on Eliquis and Plavix. She was een by cardiology as well as ID and placed on IV Abx. The drainage stopped and she was kept of OAC however she had another episode of bleeding. She was taken to director of cardiac cath lab and the ICD was removed. She tolerated this well. She is being discharged home with home health and will need to see Dr. Holley in 1 week for post-op visit. She willl see Dr. Lin in 2 weeks. She will need to see ID within 1-2 weeks. She is to stay OFF the Eliquis and Plavix per cardiology. They will decide at a later date if they want to replace the ICD. Her EF is now 40%. Please note, this is a brief summary and for complete history, please refer to the chart. >30 min spent on DC planning. Vital Signs T: 36.6 ??C TMIN: 36.6 ??C TMAX: 37.3 ??C HR: 104(Monitored) RR: 20 BP: 89/61 SpO2: 92% Oxygen Settings (Last) Oxygen Therapy Mode: Nasal cannula (07/25/21 09:34:00) Oxygen Flow Rate: 5 Liter/Min (07/25/21 09:34:00) Physical Exam General: [alert , well nourished, [...] Psychiatric: [cooperative , appropriate mood and affect] Discharge Disposition Home with Home Care Discharge Follow Up LINH WILLIAM DO-KRISS - Within 2 to 3 days HANANE WILSON MD-INF - Within 1 week DION LIN - Within 2 weeks ABBE HOLLEY - Within 1 week Discharge Medications (16) Active acetaminophen-HYDROcodone 325 mg-5 mg oral tablet 1 Tab, PRN, Oral, Q8H carvedilol 12.5 mg oral tablet 12.5 mg = 1 Tab, Oral, BID cefdinir 300 mg oral capsule 300 mg = 1 Cap, Oral, Q12H doxycycline hyclate 100 mg oral capsule 100 mg = 1 Cap, Oral, BID Florastor 250 mg oral capsule 250 mg = 1 Cap, Oral, BID fluticasone 50 mcg/inh nasal spray 2 [place], PRN, Nasal, Daily folic acid 1 mg [...] 10 mEq = 1 Tab, Oral, Daily Rocephin 2 Gram, IV Piggyback, [id number] topiramate 25 mg oral tablet 25 mg = 1 Tab, Oral, At Bedtime Vitamin D2 1.25 mg (50,000 intl units) oral capsule 50,000 Int Units = 1 Cap, Oral, Weekly Code Status Start: 07/16/21 14:19:00 EDT, Full Code, Continuous Order Condition on Discharge Improved Consulting Physicians REYNALDO CURIEL MD-INT DION LIN MD-CAR PIERCY, ANAHY Reddy MD-INF - Possible infected pacemaker site HANANE WILSON MD-INF MIRELLA GEORGE MD-CAR SAAD, MARINA, MD [place], IOANA PHILLIPSANS JUDIT, IOANA JACKSONANS SUE, AUNDREA Yuan MD-ANS Current Diet Order Diet, Adult - Ordered -- Start: 07/24/21 18:10:00 EDT, Cardiac Diet, Isolation: Standard Precautions Patient Discharge Summary Orders Discharge Activity: Discharge Activity: No heavy lifting over 10 lbs Diet: Discharge Diet: Resume usual diet as tolerated Pending Labs Ordered Phosphorus Level Specimen Type: Blood, AM Draw collect, 07/25/21 4:00:00 EDT, Daily, Nurse Collect Magnesium Level Specimen Type: Blood, AM Draw collect, 07/25/21 4:00:00 EDT, Daily, Nurse Collect CMP Comprehensive Metabolic Panel Specimen Type: Blood, AM Draw collect, 07/25/21 4:00:00 EDT, Daily, Nurse Collect CBC w/ Auto Diff Specimen Type: Blood, AM Draw collect, 07/25/21 4:00:00 EDT, Daily, Nurse Collect Preliminary Culture Catheter Tip Specimen Type: Catheter Tip, From: Pacemaker Pocket, Timed Study collect, 07/24/21 13:47:00 EDT, 1-Time, Stop: 07/24/21 13:47:00 EDT, Nurse Collect Culture Wound and Stain Specimen Type: Surgical Swab, From: Pacemaker Pocket, Timed Study collect, 07/24/21 13:46:00 EDT, 1-Time, Stop: 07/24/21 13:46:00 EDT, Nurse Collect Scheduled CBC w/ Manual Diff Specimen Type: Blood, AM Draw collect, 07/26/21 4:00:00 EDT, 1-Time, Stop: 07/26/21 4:00:00 EDT, Nurse Collect Time Spent on Discharge >30 min [1] CR Chest 1 Vw Port; Jasbir Simon, Turpentine Distiller 07/16/2021 13:03 EDT [2] Operative Report; ABBE HOLLEY MD-CAR 07/24/2021 14:30 EDT [3] [facility] RE[facility]; CONTRIBUTOR_SYSTEM, [employer] 07/17/2021 08:04 EDT Electronically signed by [facility], [facility] Conversion Compliance Reviewer Cerner at 05/27/2022 9:02 PM CDT documented in this encounter Plan of Treatment Not on file documented as of this encounter Visit Diagnoses Not on filedocumented in this encounter Care Teams Wood Turner Relationship Specialty Start Date End Date Linh William, [address] [facility] [address] [place] [address] PCP - General Family Medicine 11/04/22 Lizzie Alves PA-C [address] [facility], [facility] [address] [place] [address] Hospitalist Cardiology 05/27/23 Dion Lin MD [address] [facility] [address] [place] [address] Resin Filterer Electrophysiology 11/18/23 documented as of this encounter
--- OUTSIDE RECORDS SUMMARY | 2024-07-27 14:22 | XMS_ITS | Encounter Summary ---
Author Organization [employer] [facility] Init iatives Address [address] [place] [address] Care Team Providers Care Electrotype Servicer Name Role Phone Linh Doty DO Primary Care Provider [phone] Lizzie Alves PA-C Unavailable [phone] Kaushik Mariscal MD Unavailable Encounter Details Date Type Department Care Team (Late st Contact Info) Description 07/16/2021 Transcribed Document [facility] Radiology [address] [id number] Yanick Torres MD [address] [place] [address] [address] [place] [address] Social History Tobacco Use Types Packs/Day Years Used Date Smoking Tobacco: Never Assessed Comments Unknown Sex and Gender Information Value Date Recorded Sex Assigned at Not on file Legal Sex Female 3:27 PM CDT Gender Identity Not on file Sexual Orientation Not on file documented as of this encounter Miscellaneous Notes * Cerner Conversion Note - Yanick Torres MD - 07/16/2021 3:30 PM EDT Patient: GAGAN MENDOZA Age: 55 [...] no worrisome findings Consultations requested -Cardiology service Procedures and work-up -Chest x-ray showed no acute cardiopulmonary findings -Blood cultures negative to date Hospital course 07/16 patient seen and examined history and physical done 07/17 patient 07/18 patient Past medical history ischemic cardiomyopathy status post [...] At Bedtime topiramate: 12.5 mg, Oral, BID Documented Medications Documented Plavix 75 mg oral [...] 50 mcg inhalation powder: 1 Puff, Inhalation, [id number], rinse mouth and throat after use, 30 [...] 50 mcg inhalation powder 1 Puff, Inhalation, [id number] folic acid 1 mg oral tablet 1 [...] = 1 Cap, Oral, Weekly , Medications (20) Active Scheduled: (13) carvedilol 12.5 mg tab 12.5 mg 1 [...] tab 12.5 mg 0.5 Tab, Oral, BID Continuous: (0) PRN: (7) acetaminophen [...] At risk for sleep apnea / IMO [id number] / Confirmed High cholesterol / SNOMED CT 30313971 / Confirmed Canceled: At risk for sleep apnea / IMO [id number] Canceled: COPD (chronic obstructive pulmonary disease) / SNOMED CT 41916233 Canceled: HTN (hypertension) / SNOMED CT 4165437290, Active Problems (12) Arteriosclerosis At risk for sleep apnea Cardiomyopathy Chronic CHF Current smoker Gout High cholesterol History of CO (myocardial infarction) Intermittent claudication Pacemaker PAD (peripheral artery disease) Stented coronary artery Objective VS/Measurements Vitals Signs (last 24 hrs) Last Charted Minimum Maximum Temp 98.0 (JUL 16:) 98.0 (JUL 16:) 98.0 (JUL 16:) Periph HR 78 (JUL 16:) 78 (JUL 16:) 78 (JUL 16:) Resp Rate 20 (JUL 16:) 20 (JUL 16:) 20 (JUL 16:) SBP H 152 (JUL 16:) H 152 (JUL 16:) H 152 (JUL 16:) DBP 84 (JUL 16:) 84 (JUL 16 12:) 84 (JUL 16:) SpO2 L 90 (JUL 16:) L 90 (JUL 16:) L 90 (JUL 16:) General: No acute distress. Eye: Normal conjunctiva. Neck: No jugular venous distention. Respiratory: Lungs are clear to auscultation, Respirations are non-labored, Breath sounds are equal. Cardiovascular: Regular rhythm, No gallop, S1+ S2 No S3 or S4 [place].. Gastrointestinal: Soft, Non-tender, Non-distended, Normal bowel sounds. [...] outcome plan was discussed with the patient 07/16 07/17 07/18 documented in this encounter Plan of Treatment Not on file documented as of this encounter Visit Diagnoses Not on filedocumented in this encounter Care Teams Electrotype Servicer Relationship Specialty Start Date End Date Linh Doty, [address] [facility] [address] [place] [address] PCP - General Family Medicine 11/04/22 Lizzie Alves PA-C [address] [facility], [facility] [address] [place] [address] Hospitalist Cardiology 05/27/23 Kaushik Mariscal MD [address] [facility] [address] [place] [address] Operations Assistant Electrophysiology 11/18/23 documented as of this encounter
--- OUTSIDE RECORDS SUMMARY | 2024-07-27 14:22 | XMS_ITS | Encounter Summary ---
Author Organization [employer] [facility] Init iatives Address [address] [place] [address] Care Team Providers Care Conference And Event Organiser Name Role Phone Linh Doty DO Primary Care Provider [phone] Lizzie Alves PA-C Unavailable [phone] Kaushik Mariscal MD Unavailable Encounter Details Date Type Department Care Team (Late st Contact Info) Description 07/02/2021 Transcribed Document [facility] [place] Family Medicine [facility] [place] [address] ProviderChad MD [address] [place] [address] Social History Tobacco Use Types Packs/Day Years Used Date Smoking Tobacco: Never Assessed Comments Unknown Sex and Gender Information Value Date Recorded Sex Assigned at Not on file Legal Sex Female 3:27 PM CDT Gender Identity Not on file Sexual Orientation Not on file documented as of this encounter Miscellaneous Notes * Cerner Conversion Note - Chad ProviderMD - 07/02/2021 2:08 PM CDT Stroke/Warfarin Instructions Entered On: 07/02/2021 14:08 EDT Performed On: 07/02/2021 14:08 EDT by Aimee Betancur RN-Resource Stroke/Warfarin Instructions Stroke/TIA Discharge Ins : N/A Warfarin Discharge Ins : N/A Aimee Betancur RN-Resource - 07/02/2021 14:08 EDT Education Topics: Anticoagulant Education Anticoagulant : Anticoagulant other than warfarin Compliance Issues *Q : Verbalizes understanding Diet *Q : Verbalizes understanding Adverse drug reactions/interactions *Q : Verbalizes understanding Action/Interaction with Other Drugs : Verbalizes understanding Follow-up care/monitoring *Q : Verbalizes understanding Follow-up Care Details : Physician's office/clinic Aimee Betancur RN-Resource - 07/02/2021 14:08 EDT Electronically signed by [facility], [facility] Conversion Guinea Pig Breeder Cerner at 05/27/2022 9:23 PM CDT documented in this encounter Plan of Treatment Not on file documented as of this encounter Visit Diagnoses Not on filedocumented in this encounter Care Teams Conference And Event Organiser Relationship Specialty Start Date End Date Linh Doty, DO [address] [facility] [address] [place] [address] PCP - General Family Medicine 11/04/22 Lizzie Alves PA-C [address]01 [facility], [facility] [address] [place] [address] Hospitalist Cardiology 05/27/23 Kaushik Mariscal MD [address] [facility] [address] [place] [address] Paster Hat Lining Electrophysiology 11/18/23 documented as of this encounter
--- OUTSIDE RECORDS SUMMARY | 2024-07-27 14:22 | XMS_ITS | Encounter Summary ---
Author Organization [facility] Init iatives Address [address] [place] [address] Care Team Providers Care Data Conversion Operator Name Role Phone Linh Doty DO Primary Care Provider [phone] Lizzie Alves PA-C Unavailable [phone] Dion Mariscal MD Unavailable Encounter Details Date Type Department Care Team (Late st Contact Info) Description 07/02/2021 Transcribed Document [facility] [place] [address] [place] [address] ProviderChad MD [address] [place] [address] Social History Tobacco Use Types Packs/Day Years Used Date Smoking Tobacco: Never Assessed Comments Unknown Sex and Gender Information Value Date Recorded Sex Assigned at Not on file Legal Sex Female 3:27 PM CDT Gender Identity Not on file Sexual Orientation Not on file documented as of this encounter Miscellaneous Notes * Cerner Conversion Note - Chad ProviderMD - 07/02/2021 6:39 AM CDT Consult Phone Call Documentation Entered On: 07/02/2021 6:40 EDT Performed On: 07/02/2021 6:39 EDT by Kait Kang, RN Phone Call for Consults Consult Reason : Dr. Mariscal paged at [phone]. Kait Kang RN - 07/02/2021 6:40 EDT Consult Phone Call/Page Attempt : First call Provider Service Notified Name : Cardiology Physician Covering for Consult : DION MARISCAL MD-Kait Rizo RN - 07/02/2021 6:39 EDT Electronically signed by Rekha, [facility] Conversion Outpatient Case Manager Cerner at 05/27/2022 9:12 PM CDT documented in this encounter Plan of Treatment Not on file documented as of this encounter Visit Diagnoses Not on filedocumented in this encounter Care Teams Data Conversion Operator Relationship Specialty Start Date End Date Linh Doty, DO [address] [facility] [address] [place] [address] PCP - General Family Medicine 11/04/22 Lizzie Alves PA-C [address] [place] [address], [facility] [address] [place] [address] Hospitalist Cardiology 05/27/23 Dion Mariscal MD [address] [facility] [address] [place] [address] Street Light Servicer Helper Electrophysiology 11/18/23 documented as of this encounter
--- OUTSIDE RECORDS SUMMARY | 2024-07-27 14:22 | XMS_ITS | Encounter Summary ---
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 Name Role Phone Linh William DO Primary Care Provider [phone] Lizzie Alves PA-C Unavailable [phone] Dion Mariscal MD Unavailable Encounter Details Date Type Department Care Team (Late st Contact Info) Description 07/02/2021 Transcribed Document [facility] Family Medicine [address] [place] [address] ProviderChad MD [address] [place] [id number] Social History Tobacco Use Types Packs/Day Years Used Date Smoking Tobacco: Never Assessed Comments Unknown Sex and Gender Information Value Date Recorded Sex Assigned at Not on file Legal Sex Female 3:27 PM CDT Gender Identity Not on file Sexual Orientation Not on file documented as of this encounter Miscellaneous Notes * Cerner Conversion Note - Chad Merchant MD - 07/02/2021 2:09 PM [place] [address] LENA MENDOZA :1965 Visit Time:07/01/2021 Your Visit Summary Your Care Team Admitting Physician - DION MARISCAL MD-REJI Attending Physician - DION MARISCAL MD-REJI Primary Care Physician - LINH WILLIAM DO-KRISS Referring Physician - LINH WILLIAM DO-FAM Your Diagnosis Paroxysmal atrial fibrillation, Paroxysmal atrial fibrillation These Are Your Goals Patient Discharge Goal Patient Discharge Goal: Home Discharge Vitals Heart Rate (Monitored) 80 Respiratory Rate 32 Blood Pressure 128/78 What to do next Instructions From Your Care Team HOLD ELIQUIS UNTIL YOUR FOLLOW UP WITH DR MARISCAL ON 07/08 Discharge Activity: Discharge Activity: No heavy lifting over 10 lbs Diet: Discharge Diet: Resume usual diet as tolerated Wound/Incision Care Instructions: Keep operative site/wound clean and dry. Do not emove Aquacel dressing until seen in clinic in1 week. Driving Restriction: Do Not Drive Follow-Up Appointments Follow Up with DION MARISCAL When 07/09/2021 01:30 PM EDT Comments wound device check Where: [address] [facility] [address] [place] [address]- Business (1) Follow Up with LINH WILLIAM DO-FAM When Within 2 to 3 days Comments left message for Dr William office to call pt with appt time. They were out for lunch Where: [address] [place] [address]- Medications What How Much When Instructions Next Dose acetaminophen-hydrocodone (acetaminophen-HYDROcodone 325 mg-5 mg oral tablet) 120 Each, TAKE ONE TABLET BY MOUTH EVERY 6 HOURS MAY CAUSE DROWSINESS cephalexin (Keflex 500 mg oral capsule) 1 Capsule(s) Oral Every 8 Hours Duration: 7 Day(s) Pickup at [facility] clopidogrel (Plavix 75 mg oral tablet) 1 Tablet(s) Oral At Bedtime gabapentin (gabapentin 600 mg oral tablet) 1 Tablet(s) Oral At Bedtime lisinopril (lisinopril 20 mg oral tablet) 1 Tablet(s) Oral At Bedtime topiramate (topiramate 25 mg oral capsule, extended release) 1 Capsule(s) Oral At Bedtime carvedilol (carvedilol 12.5 mg oral tablet) 1 Tablet(s) Oral Two Times A Day ergocalciferol (Vitamin D2 1.25 mg (50,000 intl units) oral capsule) 1 Capsule(s) Oral Weekly fluticasone (fluticasone furoate 50 mcg inhalation powder) 1 Puff(s) Inhalation Interval Every 24 Hours rinse mouth and throat after use folic acid (folic acid 1 mg oral tablet) 1 Tablet(s) Oral Every Day furosemide 20 Milligram(s) Oral At Bedtime pantoprazole (pantoprazole 40 mg oral delayed release tablet) 1 Tablet(s) Oral Every Day potassium chloride (Potassium Chloride (Eqv-K-Tab) 10 mEq oral tablet, extended release) 1 Tablet(s) Oral Every Day rosuvastatin (rosuvastatin 10 mg oral tablet) 1 Tablet(s) Oral At Bedtime Pharmacy Information [facility]: [address] [facility] [address] [place], [place] [id number] [phone] Take your medications faithfully. Do NOT skip [...] This Visit No Immunizations Found Education Materials Fall Prevention in the Home, Adult Falls can cause injuries and can happen to people of all ages. There are many things you can do to make your home safe and to help prevent falls. Ask for help when making these changes. What actions can I take to prevent falls? General Instructions ??? Use good lighting in all rooms. Replace any light bulbs that burn out. ??? Turn on the lights in dark areas. Use night-lights. ??? Keep items that you use often in itsk-jw-rvlkq places. Lower the shelves around your home if needed. ??? Set up your furniture so you have a clear path. Avoid moving your furniture around. ??? Do not have throw rugs or other things on the floor that can make you trip. ??? Avoid walking on wet floors. ??? If any of your floors are uneven, fix them. ??? Add color or contrast paint or tape to clearly kendra and help you see: ? Grab bars or handrails. ? First and last steps of staircases. ? Where the edge of each step is. ??? If you use a stepladder: ? Make sure that it is fully opened. Do not climb a closed stepladder. ? Make sure the sides of the stepladder are locked in place. ? Ask someone to hold the stepladder while you use it. ??? Know where your pets are when moving through your home. What can I do in the bathroom? Keep the floor dry. Clean up any water on the floor right away. ??? Remove soap buildup in the tub or shower. ??? Use nonskid mats or decals on the floor of the tub or shower. ??? Attach bath mats securely with double-sided, nonslip rug tape. ??? If you need to sit down in the shower, use a plastic, nonslip stool. ??? Install grab bars by the toilet and in the tub and shower. Do not use towel bars as grab bars. What can I do in the bedroom? Make sure that you have a light by your bed that is easy to reach. ??? Do not use any sheets or blankets for your bed that hang to the floor. ??? Have a firm chair with side arms that you can use for support when you get dressed. What can I do in the kitchen? Clean up any spills right away. ??? If you need to reach something above you, use a step stool with a grab bar. ??? Keep electrical cords out of the way. ??? Do not use floor togolese or wax that makes floors slippery. What can I do with my stairs? Do not leave any items on the stairs. ??? Make sure that you have a light switch at the top and the bottom of the stairs. ??? Make sure that there are handrails on both sides of the stairs. Fix handrails that are broken or loose. ??? Install nonslip stair treads on all your stairs. ??? Avoid having throw rugs at the top or bottom of the stairs. ??? Choose a carpet that does not hide the edge of the steps on the stairs. ??? Check carpeting to make sure that it is firmly attached to the stairs. Fix carpet that is loose or worn. What can I do on the outside of my home? Use bright outdoor lighting. ??? Fix the edges of walkways and driveways and fix any cracks. ??? Remove anything that might make you trip as you walk through a door, such as a raised step or threshold. ??? Trim any bushes or trees on paths to your home. ??? Check to see if handrails are loose or broken and that both sides of all steps have handrails. ??? Install guardrails along the edges of any raised decks and porches. ??? Clear paths of anything that can make you trip, such as tools or rocks. ??? Have leaves, snow, or ice cleared regularly. ??? Use sand or salt on paths during winter. ??? Clean up any spills in your garage right away. This includes grease or oil spills. What other actions can I take? Wear shoes that: ? Have a low heel. Do not wear high heels. ? Have rubber bottoms. ? Feel good on your feet and fit well. ? Are closed at the toe. Do not wear open-toe sandals. ??? Use tools that help you move around if needed. These include: ? Canes. ? Walkers. ? Scooters. ? Crutches. ??? Review your medicines with your doctor. Some medicines can make you feel dizzy. This can increase your chance of falling. Ask your doctor what else you can do to help prevent falls. Where to find more information ??? Centers for Disease Control and Prevention, ZARIADI: www.cdc.gov ??? National Premier on Aging: www.delia.nih.gov Contact a doctor if: ??? You are afraid of falling at home. ??? You feel weak, drowsy, or dizzy at home. ??? You fall at home. Summary ??? There are many simple things that you can do to make your home safe and to help prevent falls. ??? Ways to make your home safe include removing things that can make you trip and installing grab bars in the bathroom. ??? Ask for help when making these changes in your home. This information is not intended to replace advice given to you by your health care provider. Make sure you discuss any questions you have with your health care provider. Document Revised: 08/29/2020 Document Reviewed: 08/29/2020 [employer] Patient Education ?? 2020 [employer]. Sleep Apnea Sleep apnea affects breathing during sleep. It causes breathing to stop for a short time or to become shallow. It can also increase the risk of: ??? Heart attack. ??? Stroke. ??? Being very overweight (obese). ??? Diabetes. ??? Heart failure. ??? Irregular heartbeat. The goal of treatment is to help you breathe normally again. What are the causes? There are three kinds of sleep apnea: ??? Obstructive sleep apnea. This is caused by a blocked or collapsed airway. ??? Central sleep apnea. This happens when the brain does not send the right signals to the muscles that control breathing. ??? Mixed sleep apnea. This is a combination of obstructive and central sleep apnea. The most common cause of this condition is a collapsed or blocked airway. This can happen if: ??? Your throat muscles are too relaxed. ??? Your tongue and tonsils are too large. ??? You are overweight. ??? Your airway is too small. What increases the risk? Being overweight. ??? Smoking. ??? Having a small airway. ??? Being older. ??? Being male. ??? Drinking alcohol. ??? Taking medicines to calm yourself (sedatives or tranquilizers). ??? Having family members with the condition. What are the signs or symptoms? Trouble staying asleep. ??? Being sleepy or tired during the day. ??? Getting angry a lot. ??? Loud snoring. ??? Headaches in the morning. ??? Not being able to focus your mind (concentrate). ??? Forgetting things. ??? Less interest in sex. ??? Mood swings. ??? Personality changes. ??? Feelings of sadness (depression). ??? Waking up a lot during the night to pee (urinate). ??? Dry mouth. ??? Sore throat. How is this diagnosed? Your medical history. ??? A physical exam. ??? A test that is done when you are sleeping (sleep study). The test is most often done in a sleep lab but may also be done at home. How is this treated? Sleeping on your side. ??? Using a medicine to get rid of mucus in your nose (decongestant). ??? Avoiding the use of alcohol, medicines to help you relax, or certain pain medicines (narcotics). ??? Losing weight, if needed. ??? Changing your diet. ??? Not smoking. ??? Using a machine to open your airway while you sleep, such as: ? An oral appliance. This is a mouthpiece that shifts your lower jaw forward. ? A CPAP device. This device blows air through a mask when you breathe out (exhale). ? An EPAP device. This has valves that you put in each nostril. ? A BPAP device. This device blows air through a mask when you breathe in (inhale) and breathe out. ??? Having surgery if other treatments do not work. It is important to get treatment for sleep apnea. Without treatment, it can lead to: ??? High blood pressure. ??? Coronary artery disease. ??? In men, not being able to have an erection (impotence). ??? Reduced thinking ability. Follow these instructions at home: Lifestyle ??? Make changes that your doctor recommends. ??? Eat a healthy diet. ??? Lose weight if needed. ??? Avoid alcohol, medicines to help you relax, and some pain medicines. ??? Do not use any products that contain nicotine or tobacco, such as cigarettes, e-cigarettes, and chewing tobacco. If you need help quitting, ask your doctor. General instructions ??? Take egwq-ccm-wdxdrmc and prescription medicines only as told by your doctor. ??? If you were given a machine to use while you sleep, use it only as told by your doctor. ??? If you are having surgery, make sure to tell your doctor you have sleep apnea. You may need to bring your device with you. ??? Keep all follow-up visits as told by your doctor. This is important. Contact a doctor if: ??? The machine that you were given to use during sleep bothers you or does not seem to be working. ??? You do not get better. ??? You get worse. Get help right away if: ??? Your chest hurts. ??? You have trouble breathing in enough air. ??? You have an uncomfortable feeling in your back, arms, or stomach. ??? You have trouble talking. ??? One side of your body feels weak. ??? A part of your face is hanging down. These symptoms may be an emergency. Do not wait to see if the symptoms will go away. Get medical help right away. Call your local emergency services (911 in the [place] Do not drive yourself to the hospital. Summary ??? This condition affects breathing during sleep. ??? The most common cause is a collapsed or blocked airway. ??? The goal of treatment is to help you breathe normally while you sleep. This information is not intended to replace advice given to you by your health care provider. Make sure you discuss any questions you have with your health care provider. Document Revised: 11/12/2018 Document Reviewed: 09/21/2018 Elsevier Patient Education ?? 2020 Elsevier Inc. Biventricular Pacemaker Implantation, Care After This sheet gives you information about how to care for yourself after your procedure. Your health care provider may also give you more specific instructions. If you have problems or questions, contact your health care provider. What can I expect after the procedure? After the procedure, it is common to have: ??? Mild pain or soreness in your chest for several days. ??? A small amount of blood or clear fluid coming from your incision. ??? A slight bump in your chest where the pulse generator was placed. You may be able to feel the generator under your skin. This is normal. Follow these instructions at home: Medicines ??? Take njxl-zxm-fcattyl and prescription medicines only as told by your health care provider. ??? Do not take any new medicines without asking your health care provider first. ??? If you were prescribed an antibiotic medicine, take it as told by your health care provider. Do not stop taking the antibiotic even if you start to feel better. ??? Ask your health care provider if the medicine prescribed to you requires you to avoid driving or using heavy machinery. Incision care ??? Keep your incision area clean and dry. ??? Avoid rubbing the incision and the area around the incision. ??? Follow instructions from your health care provider about how to take care of your incision. Make sure you: ? Wash your hands with soap and water before and after you change your bandage (dressing). If soap and water are not available, use hand painter mirror. ? Change your dressing as told by [...] provider tells you to do that. ??? Check your incision area every day for signs of infection. Check for: ? More redness, swelling, or pain. ? More fluid or blood. ? Warmth. ? Pus or a bad smell. Activity ??? Return to your normal activities as told by your health care provider. Ask your health care provider what activities are safe for you. ??? Do not lift anything that is heavier than 10 lb (4.5 kg), or the limit that you are told, until your health care provider says that it is safe. ??? Do not lift your upper arms above your shoulders for at least 6 weeks or as long as told by your health care provider. ? If you tend to sleep with your arms above your head, wear an arm restraint while you sleep to prevent this from happening. ? Avoid sudden movements that pull your upper arms far away from your body for at least 6 weeks. ??? Do a mild form of exercise at least once a day, such as walking. As you feel better, you may exercise more. ??? Gently stretch your shoulders at least once a day to help prevent stiffness in your chest. ??? Rest as told by your health care provider. ??? Avoid sitting for a long time without moving. Get up to take short walks every 1???2 hours. This is important to improve blood flow and breathing. Ask for help if you feel weak or unsteady. Electricity and magnetic isaacs ??? Avoid places and objects that have a strong electric or magnetic field. This includes: ? Airport security checkpoints. When you are at the airport, tell officials that you have a pacemaker and show them your pacemaker identification card. Officials will check you in safely so that your device is not damaged. Do not allow magnetic wands to be waved near your pacemaker. That can make the pacemaker stop working. ? Metal detectors. If you must pass through a metal detector, walk through it quickly. Do not stop under the detector or stand near it. ? Power plants. ? Large electrical generators. ? Radiofrequency transmission towers, such as mobile phone and radio towers. ??? Do not use amateur radio equipment or electric welding torches. If you are not sure whether something is safe to use, ask your health care provider. ? Some devices may be safe to use if you hold them at least 1 ft (0.3 m) from your pacemaker. These devices may include power tools, lawn mowers, and speakers. ??? When you talk on your mobile phone, hold it to your ear that is opposite from the side that your pacemaker is on. Do not leave your mobile phone in a pocket over your pacemaker. Long-term care ??? Carry your pacemaker identification card with you at all times, especially when you travel. ??? Consider wearing a medical alert bracelet or necklace that explains your pacemaker and any heart conditions you have. ??? Tell all health care providers who care for you that you have a pacemaker. This may prevent you from having an MRI because of the strong magnets used during that test. ??? Have your pacemaker checked every 3???6 months or as often as told by your health care provider. General instructions ??? Do not use any products that contain nicotine or tobacco, such as cigarettes, e-cigarettes, and chewing tobacco. These can delay incision healing after surgery. If you need help quitting, ask your health care provider. ??? Do not take baths, swim, or use a hot tub until your health care provider approves. ??? Do not wear tight clothing that could irritate the skin over your implant. ??? Follow instructions from your health care provider about eating or drinking restrictions. ??? Weigh yourself every day and write down your weight. ??? Keep all follow-up visits as told by your health care provider. This is important. Contact a health care provider if: ??? You gain 3 lb (1.4 kg) or more in 24 hours. ??? You have swelling in your feet, ankles, or legs. ??? You have an irregular heartbeat (palpitations). ??? You have more redness, swelling, or pain around your incision. ??? You have more fluid or blood coming from your incision. ??? Your incision area feels warm to the touch. ??? You have pus or a bad smell coming from your incision. Get help right away if you: ??? Have chest pain. ??? Have a heart rate that drops below the lowest rate set for your pacemaker. ??? Have difficulty breathing. ??? Suddenly feel light-headed. ??? Have a fever. ??? Faint. These symptoms may represent a serious problem that is an emergency. Do not wait to see if the symptoms will go away. Get medical help right away. Call your local emergency services (911 in the [place] Do not drive yourself to the hospital. Summary ??? After the procedure, it is common to have mild pain or soreness in your chest for several days. ??? Take tztp-nba-msgdjtk and prescription medicines only as told by your health care provider. ??? Ask your health care provider what activities are safe for you. ??? Carry your pacemaker identification card with you at all times, especially when you travel. This information is not intended to replace advice given to you by your health care provider. Make sure you discuss any questions you have with your health care provider. Document Revised: 12/27/2018 Document Reviewed: 12/27/2018 [employer] Patient Education ?? 2020 [employer]. Emergency Awareness and Preventative Care STROKE [...] Assistance with quitting is available by contacting 6-541-NOXA-NOW. This is a free resource providing counseling, [...] This Visit (last charted value for your 07/01/2021 visit) Hematology 07/01/2021 12:49 PM WBC: 8.2 K/uL -- Normal range between ( 4.5 and 10.5 ) RBC: 6.06 Million/uL -- Normal range between ( 3.93 and 5.22 ) Hct: 58.0 % -- Normal range between ( 34.1 and 44.9 ) Hgb: 18.7 g/dL -- Normal range between ( 11.2 and 15.7 ) Platelet Count: 142 K/uL -- Normal range between ( 163 and 369 ) MCH: 30.9 pg -- Normal range between ( 25.6 and 32.2 ) MCHC: 32.2 Gram/dL -- Normal range between ( 32.2 and 36.5 ) MCV: 95.7 fL -- Normal range between ( 79.0 and 94.8 ) Slide Review: No Eos %: 0.6 % -- Normal range between ( 0.0 and 7.0 ) Pleasants #: 0.57 K/uL -- Normal range between ( 0.16 and 1.00 ) Eos #: 0.05 x10(3)/uL -- Normal range between ( 0.00 and 0.80 ) Pleasants %: 6.9 % -- Normal range between ( 3.0 and 9.0 ) Baso %: 1.0 % -- Normal range between ( 0.0 and 1.5 ) Baso #: 0.08 x10(3)/uL -- Normal range between ( 0.00 and 0.20 ) RDW: 18.2 % -- Normal range between ( 11.7 and 14.9 ) Neut %: 64.6 % -- Normal range between ( 34.0 and 71.0 ) Neut #: 5.32 K/uL -- Normal range between ( 1.56 and 6.13 ) Lymph %: 26.5 % -- Normal range between ( 19.3 and 53.1 ) Lymph #: 2.18 x10(3)/uL -- Normal range between ( 1.00 and 3.90 ) MPV: 12.0 fL -- Normal range between ( 9.4 and 12.4 ) IG#: 0.03 x10(3)/uL -- Normal range between ( 0.00 and 0.05 ) IG%: 0.40 % -- Normal range between ( 0.00 and 0.60 ) General Chemistry 07/01/2021 1:33 PM Creatinine Level: 0.90 mg/dL -- Normal range between ( 0.55 and 1.02 ) Sodium Level: 140 mmol/L -- Normal range between ( 136 and 146 ) Potassium Level: 4.2 mmol/L -- Normal range between ( 3.5 and 5.1 ) Chloride Level: 105 mmol/L -- Normal range between ( 102 and 112 ) Carbon Dioxide Level: 31 mmol/L -- Normal range between ( 21 and 32 ) Anion Gap: 8 -- Normal range between ( 9 and 20 ) Bun/Creatinine: 14.4 -- Normal range between ( 8.0 and 20.0 ) Calcium Level: 10.6 mg/dL -- Normal range between ( 8.4 and 10.1 ) eGFR : >60 mL/min/1.73m2 eGFR NonAfrican: >60 mL/min/1.73m2 Glucose Level: 93 mg/dL -- Normal range between ( 74 and 106 ) Blood Urea Nitrogen: 13 mg/dL -- Normal range between ( 7 and 22 ) Diagnostic Radiology 07/02/2021 10:19 AM CR Chest 1 Vw Portable: CR Chest 1 Vw Portable Patient Name:LENA MENDOZA I have received and understand this information and was given the opportunity to ask questions. 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
--- OUTSIDE RECORDS SUMMARY | 2024-07-27 14:22 | XMS_ITS | Encounter Summary ---
Author Organization [facility] Address [address] [place] [address] Care Team Providers Care Supervisor Picking Crew Name Role Phone Linh Doty DO Primary Care Provider [phone] Lizzie Alves PA-C Unavailable [phone] Kaushik Mariscal MD Unavailable Encounter Details Date Type Department Care Team (Late st Contact Info) Description 07/25/2021 Transcribed Document [facility] Family Medicine [address] [place] [address] ProviderChad MD [address] [place] [address] Social History Tobacco Use Types Packs/Day Years Used Date Smoking Tobacco: Never Assessed Comments Unknown Sex and Gender Information Value Date Recorded Sex Assigned at Not on file Legal Sex Female 3:27 PM CDT Gender Identity Not on file Sexual Orientation Not on file documented as of this encounter Miscellaneous Notes * Cerner Conversion Note - Chad Merchant MD - 07/25/2021 2:00 PM CDT Final Discharge Planning Entered On: 07/25/2021 14:01 EDT Performed On: 07/25/2021 14:00 EDT by Mayra Vann, Emergency Department Aide Rn Final Discharge Planning Discharge Arrangements : Patient Post-Acute Information Patient Name: GAGAN MENDOZA Gender: Female : 63 Age: 55 Years No Post-Acute Placement(s) Listed No Post-Acute Service(s) Listed No [place] Referral(s) Listed Patient Offered Choice/Affiliations Explained : Yes Designation of Choice Signed : Yes Important Medicare Message Reviewed With : Patient Important Medicare Message Reviewed D/T : 07/25/2021 8:00 EDT Transportation Needs : Family/Friend Discharge Transportation Arrangement Cmt : SO Alexx Is Patient High/Moderate Readmission Risk? : No Patient/Family Notified of Plan : Yes Is Patient Ready for Discharge? : Yes Physician Notified Patient is Ready for Discharge? : Yes Discharge To Care Management : Home Health Services (Related/SOC within 3 days)-06 Mayra Vann, Emergency Department Aide Rn - 07/25/2021 14:00 EDT Final Narrative Note Final Narrative Note : patient with orders to dc home. sebastien for hh. [facility] for home o2. SO to transport patient home with no mobility concerns. im and choice signed and on chart. Mayra Vann, Emergency Department Aide Rn - 07/25/2021 14:00 EDT Electronically signed by Rekha [facility] Conversion Hot Kettle Tender Cerner at 05/27/2022 9:22 PM CDT documented in this encounter Plan of Treatment Not on file documented as of this encounter Visit Diagnoses Not on filedocumented in this encounter Care Teams Supervisor Picking Crew Relationship Specialty Start Date End Date Linh Doty, [address] [facility] [address] [place] [address] PCP - General Family Medicine 11/04/22 Lizzie Alves PA-C [address] [place] [address], [facility] [address] [place] [address] Hospitalist Cardiology 05/27/23 Kaushik Mariscal MD [address] [facility] [address] [place] [address] Mortgage Loan Officer Originator Electrophysiology 11/18/23 documented as of this encounter
--- OUTSIDE RECORDS SUMMARY | 2024-07-27 14:22 | XMS_ITS | Encounter Summary ---
Author Organization [facility] Address [address] [place] [address] Care Team Providers Care Bi Manager Name Role Phone Linh Doty DO Primary Care Provider Lizzie Alves PA-C Unavailable [phone] Kaushik Mariscal MD Unavailable Encounter Details Date Type Department Care Team (Late st Contact Info) Description 07/25/2021 Transcribed Document [facility] [place] [address] [place] [address] ProviderChad MD [address] [place] [address] Social History Tobacco Use Types Packs/Day Years Used Date Smoking Tobacco: Never Assessed Comments Unknown Sex and Gender Information Value Date Recorded Sex Assigned at Not on file Legal Sex Female 3:27 PM CDT Gender Identity Not on file Sexual Orientation Not on file documented as of this encounter Miscellaneous Notes * Cerner Conversion Note - Chad Merchant MD - 07/25/2021 1:48 PM CDT Patient Resource Center Entered On: 07/25/2021 13:51 EDT Performed On: 07/25/2021 13:48 EDT by Jeannie Rodriguez EARLY INTERVENTIONIST Patient Resource Center Provider Status : EST Other Established Provider Name : Linh Doty Patient Phone Number : [phone] Patient Insurance Type : Medicare Source of Referral : Case management Location of Patient : Case management referral Primary Care Scheduled : Yes Primary Care Scheduled Type : Non [facility] Primary Care Provider Name : Linh Doty Primary Care Appointment Date/Time : 08/01/2021 14:00 EDT Specialty Care Scheduled : Yes Specialty Type Scheduled1 : Cardiology, [facility] Cardiology, Infectious Disease [facility] Cardiology Provider Name : Kaushik Mariscal Cardiology Provider Name : Richard Hoffman [facility] Cardiology Appointment Date/Time : 08/08/2021 14:45 EDT Cardiology Appointment Date/Time : 07/30/2021 10:15 EDT Infectious Disease Provider Name : Gilson Dumas Infectious Disease Appointment Date/Time : 07/31/2021 14:30 EDT Qualify for Diabetes and/or Nutrition Referral : No Wound Care Appointment Made : No Why Patient Visited ED- Specialty spent : Other How Patient Arrived at ED : Other Primary Language : [place] Patient Resource Center Comment : Patient needed primary care, cardiology and infectious disease appts. Primary care and cardiology appts have been made. Infectious disease appt has already been made. Follow Up Needed : No Jeannie Rodriguez, EARLY INTERVENTIONIST - 07/25/2021 13:48 EDT documented in this encounter Plan of Treatment Not on file documented as of this encounter Visit Diagnoses Not on filedocumented in this encounter Care Teams Bi Manager Relationship Specialty Start Date End Date Lalitha Linh L, [address] [facility] [address] [place] [address] PCP - General Family Medicine 11/04/22 Lizzie Alves PA-C [address] [place] [address], [facility] [address] [place] [address] Hospitalist Cardiology 05/27/23 Kaushik Mariscal MD [address] [facility] [address] [place] [address] Customer Success Representative Electrophysiology 11/18/23 documented as of this encounter
--- OUTSIDE RECORDS SUMMARY | 2024-07-27 14:22 | XMS_ITS | Encounter Summary ---
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 Name Role Phone Linh William DO Primary Care Provider [phone] Lizzie Alves PA-C Unavailable [phone] Dion Lin MD Unavailable Encounter Details Date Type Department Care Team (Late st Contact Info) Description 07/25/2021 Transcribed Document [facility] [address] [place] [id number] ProviderChad MD [address] [place] [id number] Social History Tobacco Use Types Packs/Day Years Used Date Smoking Tobacco: Never Assessed Comments Unknown Sex and Gender Information Value Date Recorded Sex Assigned at Not on file Legal Sex Female 3:27 PM CDT Gender Identity Not on file Sexual Orientation Not on file documented as of this encounter Miscellaneous Notes * Cerner Conversion Note - Chad Merchant MD - 07/25/2021 2:36 PM CDT [facility] [place] [address] LENA MENDOZA :1965 Visit Time:07/16/2021 Your Visit Summary Your Care Team Admitting Physician - REYNALDO CURIEL MD-INT Attending Physician - REYNALDO CURIEL MD-INT Primary Care Physician - LINH WILLIAM DO-[facility] Referring Physician - FAUSTINO, SELF REFERRED Your Diagnosis Pacemaker pocket hematoma Cardiac device problem General medical Pacemaker These Are Your Goals Patient Discharge Goal Patient Discharge Goal: Home health care Discharge Vitals Heart Rate (Monitored) 104 Respiratory Rate 20 Blood Pressure 89/61 What to do next Instructions From Your Care Team No heavy lifting, keep incision site clean and dry DO NOT resume Eliquis or Plavix (Clopidogrel) until you have a follow-up wound check next week. Discharge Activity: No heavy lifting over 10 lbs Discharge Diet: Resume healthy heart diet as tolerated Follow-Up Appointments Follow Up with DION LIN When 08/08/2021 02:45 PM EDT Comments EP Cardiology appointment has been made Bring discharge instructions with you Where: [address] [facility] [address] [place] [address]- Business (1) Follow Up with LINH WILLIAM DO-FAM When 08/01/2021 02:00 PM EDT Comments Primary care appointment has been made Bring discharge instructions with you Where: [address] [place] [address]- Follow Up with HANANE WILSON MD-INF When 07/31/2021 02:30 PM EDT Comments Infectious disease appointment has been made Bring discharge instructions with you Where: [address] [facility] [address] [place] [address]- Follow Up with ABBE HOLLEY When 07/30/2021 10:15 AM EDT Comments Cardiology appointment has been made Bring discharge instructions with you Where: [address] [place] [address]- [phone] Business (1) Medications What How Much When Instructions Next Dose cefdinir (cefdinir 300 mg oral capsule) 1 Capsule(s) Oral Every 12 hours Duration: 7 Day(s) Pickup at [facility] doxycycline (doxycycline hyclate 100 mg oral capsule) 1 Capsule(s) Oral Two Times A Day Duration: 21 Day(s) Pickup at [facility] at [facility] nicotine (nicotine 21 mg/ 24 hr transdermal film, extended release) 1 Patch(es) TransDermal Every Day Duration: 14 Day(s) Pickup at [facility] tomorrow saccharomyces boulardii lyo (Florastor 250 mg oral capsule) 1 Capsule(s) Oral Two Times A Day This medication is available fgfr-vfn-loribix. tonight acetaminophen-hydrocodone (acetaminophen-HYDROcodone 325 mg-5 mg oral tablet) 1 Tablet(s) Oral Every 8 Hours as needed for for pain as needed gabapentin (gabapentin 600 mg oral tablet) 1 Tablet(s) Oral Three Times A Day tonight rosuvastatin (Crestor 10 mg oral tablet) 1 Tablet(s) Oral Every Day tomorrow carvedilol (carvedilol 12.5 mg oral tablet) 1 Tablet(s) Oral Two Times A Day tonight ergocalciferol (Vitamin D2 1.25 mg (50,000 intl units) oral capsule) 1 Capsule(s) Oral Weekly per routine fluticasone nasal (fluticasone 50 mcg/ inh nasal spray) 2 [place](s) Nasal Every Day as needed for Nasal Congestion as needed folic acid (folic acid 1 mg oral tablet) 1 Tablet(s) Oral Every Day tomorrow furosemide (furosemide 20 mg oral tablet) 1 Tablet(s) Oral Every Day tomorrow lisinopril (lisinopril 20 mg oral tablet) 1 Tablet(s) Oral At Bedtime bedtime pantoprazole (pantoprazole 40 mg oral delayed release tablet) 1 Tablet(s) Oral Every Day tomorrow potassium chloride (Potassium Chloride (Eqv-K-Tab) 10 mEq oral tablet, extended release) 1 Tablet(s) Oral Every Day tomorrow topiramate (topiramate 25 mg oral tablet) 1 Tablet(s) Oral At Bedtime bedtime Pharmacy Information [facility] [place]: [address] [place] [address] [address] [place], [place] [id number] [phone] Take your medications faithfully. Do NOT skip [...] This Visit No Immunizations Found Education Materials GUIDELINES FOR A HEART HEALTHY DIET TO LOWER CHOLESTEROL AND/OR TRIGLYCERIDES A HEART HEALTHY DIET means eating a well balanced diet that is limited in cholesterol, fat, sodium, sugar and caffeine to control the risk factors that lead to heart disease. --Cholesterol intake in your diet should be limited to 300 Milligrams or less per day. Cholesterol is a white waxy substance that comes from our diet and is also made by our body. Foods that will raise the cholesterol in our blood are those that generally come from animal source --Triglycerides are another type of fat that build up in the bloodstream and may lead to blockage of blood vessels. Foods that will raise the level of triglycerides in our blood include those that come from animal or saturated fat and excessive intake of carbohydrates(sugar). --The amount of fat that we eat in our diet is just as important as what kind of fat that we eat. Fat intake should be no more than approximately 55 grams per day for females and 65-70 grams for males --Sodium may affect your blood pressure and/or cause excessive fluid to build up in the tissues of your body. It is recommended that you limit your sodium intake to 2,000 milligrams per day. The main intake of sodium in our diet comes from the salt that we add to our food at the table and in processed foods. --Caffeine is a stimulant that is found in such foods as coffee, tea, cola beverages and chocolate. Caffeine can speed up the heartbeat or may cause irregular heart beats. It is recommended that caffeine intake be limited in your diet The following guidelines will help you to reduce the cholesterol, triglycerides, fat and sodium in your diet: MILK AND DAIRY PRODUCTS Recommended serving-2 or more for adults and children 2-10 years, 3-4 servings for ages 11-24 CHOOSE milk products that contain 1% or less fat content. Good choices include skim milk, milk with 0-1% fat content, evaporated skim milk, cultured buttermilk made from skim milk, nonfat or low fat cultured yogurt or frozen yogurt and sugar free hot chocolate mixes made with cocoa and skim milk solids. Cheese is considered low in fat if it contains 5 grams of fat or less per ounce (natural or processed). Dry curd, skim or low fat cottage cheese is a good choice. Use fat free or low fat cream cheese or sour cream with moderation at the table and in cooking. AVOID 2% and whole milk, evaporated whole milk, churned buttermilk (butterflake), cheese containing more than 5 grams of fat per ounce, cottage cheese with 4 % fat content, regular cream cheese and sour cream. --1 Serving of milk is equal to one 8 ounce cup of milk, one 8 ounce cup of yogurt, one ounce of low fat cheese or ?? cup low fat cottage cheese. MEET, FISH AND POULTRY Recommended serving 6-9 ounces of cooked meat CHOOSE fish, chicken, turkey, baxter, veal, lean cuts of beef (round, sirloin, and loin), center cut pork (tenderloin, loin chops), wild game (rabbit, venison, pheasant, and duck without skin), shellfish, low fat luncheon meats (limit 1-2 servings per week because of the high sodium content), peanut butter (limit to 2 tablespoons once or twice per week). AVOID high fat meats such as joe, sausage, country ham, luncheon meats, hot dogs, canned meats, Tonya sausage --Limit meat portions to no more than 6-9 ounces of cooked meat per day. --A 3 ounce portion of meats equals -A piece of cooked meat the size of a deck of cards -?? cup of flaked fish -A slice of lean meat, ?? inch thick and the size of a woman???s palm -A piece of meat that weighs approximately 4 ounces raw, will weigh about 3 ounces cooked -Buy ???choice?? or ???select?? grades of beef rather than ???prime?? . Trim off all the fat before cooking meat and choose to broil, bake, roast, grill or stir-joseph rather than frying. -Remove poultry skin before cooking. -Shrimp and crayfish are high in cholesterol but low in total fat and saturated fat. These may be included in your diet in moderation. -Juices from cooked meats and poultry may be used if the fat is drained or skimmed off. This may be done by refrigerating the broth until the fat hardens and then removing it from the tip. The broth may be used to make gravies and flavor soups. -Organ meats are high in cholesterol but also a good source of iron and vitamins. A 3 ounce serving once a month may be included in your diet or you may also choose to substitute a 3 ounce portion for an egg occasionally. - When choosing dinners and entrees in the frozen food section of your grocery, select those that are made for low fat, low cholesterol, low sugar and limited sodium diets. EGGS LIMIT egg yolks to no more than 3-4 per week. An egg yolk has approximately 220 milligram of cholesterol.Low cholesterol egg substitute and egg whites may be eaten as desired in your diet. --Any eggs used in cooking or found in store bought foods should be counted as part of your egg allowance. The amount of egg yolk that you would get from baked items in a period of a week would be equal to about one egg. --In cooking, you may substitute ?? cup egg substitute or 2 egg whites for 1 egg in a recipe. --You may choose to make your own egg substitute by beating together 2 egg whites, 2 tablespoons of nonfat dry milk powder and a couple drops of yellow food coloring. This is equal to 1 egg. BREADS, CEREALS, AND PASTA Recommended Serving 6-11 per day CHOOSE white, wheat or rye breads, plain breadsticks, lithuanian muffins, hamburger buns, plain bagels, plain cake doughnuts, tru breads, baked flours or corn tortillas, crackers including gerber, animal, saltine, oyster and matzo, snacks including unsalted pretzels, popcorn, baked tortilla chips or potato chips. Homemade breads (biscuits, muffins, cornbread, rolls, pancakes and andorran toast) should be made with oils low in saturated fat, 1% or less fat milk, and egg whites or egg substitutes. Unsweetened dry and cooked cereals are good breakfast choices. All types of rice and pasta are allowed. Reduced sodium/low fat soups are preferred choices when choosing canned soups. AVOID sugar coated cereals, glazed or sugar coated doughnuts, breakfast pastries --1 serving is equal to 1 slice of bread, ?? hamburger bun, ?? cup nugget cereal, 1 cup dry/flaked cereal, ?? cup cooked cereal, ?? cup cooked rice or pasta, 1 cup low fat soup or ?? cup starchy vegetables. --Fiber in your diet is important and may help to reduce cholesterol levels. Whole grain breads and starches, dried beans and peas, fresh fruits and vegetables are excellent sources of fiber. --In the grocery store and bakery, carefully choose prepared products such as muffins, frozen andorran toast and waffles, biscuits, croissants and other bread products. These can often have high fat content, so read the label carefully. --Many brands of unsalted top crackers and snack foods are available to help you control sodium in your diet. --Choose sauces for pasta carefully. Avoid creamy sauces such as eyad unless you have prepared it at home with allowed ingredients. Tomato based sauces are generally the best choice when eating out. --Canned soups, dry soup mixes, broth and bouillon cubes are very high in sodium content so always look for the low sodium or reduced sodium varieties. These are good to add when cooking rice, pastas, soups and vegetables to add flavor. VEGETABLES AND FRUITS Recommended serving 5 or more per day CHOOSE a wide variety of fresh vegetables and fruits in your diet. Vegetables and fruits are excellent sources of vitamins, minerals and fiber in our diet. They contain no cholesterol, are very low in fat, calories and sodium if you are careful about seasoning them during cooking. Fruits should be fresh, frozen or canned without sugar. AVOID vegetables that have been prepared with ham hocks, seasoned meats and joe grease. Avoid creamed vegetables unless they have been prepared with low fat milk products and margarine. Coconut is high in saturated fat and should be avoided. --1 serving is equal to 1 medium size fresh fruit, ?? cup juice, ?? cup cooked or 1 cup raw vegetables. --Fruits contain simple sugar and may affect your triglyceride level. It is recommended that your fruit servings be limited to 3-4 servings per day. If you have diabetes, fruits should be limited to this amount and always be eaten with the meal. --Steaming vegetables helps to retain the vitamin and mineral content of vegetables. When you boil vegetables in water, you will lose some of the nutritional value of the food. --When seasoning try low sodium broths and bouillons, artificial joe bits, small amounts of low saturated oil margarine or spices and herbs to perk up the flavor of your vegetables. --Fresh or frozen packaged vegetables are lower in sodium than the canned variety. FATS AND OILS Recommended serving-limit to no more than 5-8 per day depending on calorie needs CHOOSE vegetable oils and margarine that are low in saturated fat (no more than 2 grams of saturated fat per tablespoon) such as canola, safflower, sunflower or corn oil. Fat free or low fat salad dressings are good choices (they should contain no more than 1 gram of saturated fat per tablespoon) AVOID joe grease, lard, high fat seasoning meats such as ham hocks and salt pork, vegetable shortening, blue cheese dressing and other creamy style dressing that may be high in total fat content and saturated fat, coconut and palm kernel oil. --1 serving is equal to 1 teaspoon margarine or vegetable oil, 2 teaspoons reduced fat margarine, 1 tablespoon salad dressing, 2 teaspoons mayonnaise, 1 tablespoon of seeds or nuts. ? avocado, 10 small or 6 large olives --Limit the intake of higher fat foods such as avocados and olives. Olives are also high in sodium content. ? avocado, 10 small or 5 large olives is considered a serving. --Gary oil and peanut oil are higher in monounsaturated fats, but also contain saturated fat. It is recommended these be used in specialty dishes and not as a routine cooking oils. Limited amounts of canola, safflower, sunflower or corn oil are better choices for preparation of foods on a daily basis. --Use fats and oils sparingly in your diet. There are many choices of fat free and low fat margarine that may be used in cooling and for use at the table. --If a margarine or fat is soft or liquid at room temperature, then it will be lower in saturated fat and be a better choice than one which is hard at room temperature. --Use low fat cooking sprays in preparing your food and cut back on the amount of fat you consume. --Always choose methods of cooking that will reduce the amount of fat you use. Baking, broiling, roasting, grilling,and stir frying will help reduce your fat intake. DESSERTS CHOOSE unsweetened low fat yogurt with fruit, frozen low fat yogurt, sherbet*, fat free ice cream*, unsweetened flavored gelatins, sugar free frozen popsicles and dessert bars, tristan food cake*, jamin snaps*, reduced fat/low sugar varieties of cookies*, fruit (refer to the fruit and vegetable section) (* These dessert items should be limited to one serving per day) AVOID ice cream, rich desserts made with high fat ingredients such as sour cream, cream cheese, butter, whipping cream, chocolate and desserts with a high sugar content. --Chocolate may be eaten in moderation. For a chocolate craving, substitute cocoa powder for baking chocolate in your recipes. All fat has been removed from cocoa powder. --Homemade desserts made with appropriate recipe substitutions (margarine or oils low in saturated fat, milk with 1 % or less fat content, egg whites or egg substitutes, sugar substitute) are good choices in moderation. --On ingredient labels, words that end in -ose or -ol mean sugar. These will include sorbitol, mannitol,xylitol, fructose and dextrose and should be consumed in limited amounts. MISCELLANEOUS CHOOSE in moderation sugar free jellies and jams and sugar free syrup. Always use a sugar substitute in place of sugar. Any herbs or spices that do not contain salt are great for perking up the flavor of meats, pastas and vegetables. AVOID the use of salt other than small amounts in cooking. Taco sauces, soy sauce, steak sauce, pickles, ketchup, mustard and marinades are high sources of sodium in your diet. There are many varieties of low sodium or reduced sodium condiments available that may be used in the place of the higher sodium items BEVERAGES CHOOSE unsweetened beverages with limited caffeine content. Unsweetened coffee, tea, chocolate, and cola beverages contain caffeine which may speed up the beating of your heart or cause irregular heart beats. Try to limit caffeinated, sugar free beverages to 2 servings per day and anything more than this amount choose decaffeinated, sugar free beverages. A serving is 8 ounces. ALCOHOL If you choose to drink alcohol, always check with your doctor first. Alcohol may cause your triglycerides to increase. It may also interact with some of the medications you are taking and can cause adverse effects. If your doctor does approve the use of alcohol for you, limit the amount to 1-2 servings per day. The amounts listed below are equal to 1 serving and may be exchanged for a serving from the breads, cereals, and pasta group. 1 ounce gin, rum, vodka, whiskey 1 ?? ounces sweet or dessert wine 5 ounces beer 2 ?? ounces dry table wine If you have any questions after reading these guidelines for a heart healthy diet, please call the registered dietitians at [facility] at or . We will be happy to answer your questions or set up an appointment for individual counseling. . FLUID-RESTRICTED NUTRITION THERAPY What Counts as Fluid? Any beverage you drink ???Water ? Coffee ? Tea ? Soda pop ? Sports drinks ? Milk ? Liquid creamer ? Juice ? Fruit-flavored drinks, lemonade, punch ??? Juicy fruits or vegetables ? 1 cup juicy fruit/veg = ?? cup fluid ? Melons (watermelon, cantaloupe, honeydew, etc.) ? Berries (strawberries, blueberries, raspberries, blackberries, etc.) ? Tomatoes ? Cucumbers ? Nutrition supplements like Ensure or Boost ? Liquid medicine ? Alcohol ??? Fluids that are part of a food ? Soup ? Sauces ? Gravies ? Pudding ? Yogurt ? Salad dressing ? Syrup ??? Foods that will melt down to a liquid ? Gelatin ? Ice cream ? Frozen yogurt ? Sherbet ? Milkshakes/smoothies ? Popsicles ? Ice cubes ? 1 cup ice cubes/chips = ?? cup fluid melted Helpful Hints ??? Fluids you use to take medications must also be counted in your fluid restriction. ??? Keep a fluid log. ? Record your daily fluid intake. ? Make sure you know how much fluid your cups, bowls, mugs, and glasses hold. -Each time you eat or drink fluids, pour water in the same amount into an empty container that can hold the same amount of fluids you are allowed daily. This may help you track of how much fluid you are taking in throughout the day. ??? Weigh yourself daily. A rapid change in weight can be the result of fluid gain or loss. Fluid Measurements ??? 1 ounce (oz) = 30 mls (milliliter) = 2 tablespoons ??? 1 cup = 8 oz = 240 mls ??? 4 cups = 32 oz = 1 quart = 960 mls ??? 1000 milliliters = 1 liter = 32 ounces =4 cups ( 24 hour restriction) 2000 milliliters = 2 Liters =67 ounces= 8 ? cups ??? 48 oz = 6 cups = 1 ?? quarts = 1440 ml ??? 64 oz = 8 cups = 2 quarts = ?? gallon = 1920 ml Tips to reduce thirst and alleviate dry mouth ??? --Keep hard candies, mints and gum available. -Some people find sugar-free varieties to be more thirst quenching. --[place] your teeth. --Chill mouthwash and gargle for a fresh feeling. --Rinse your mouth with water (no swallowing). --Prepare a measured amount of ice cubes to suck on. --Flavor your drink with lemon juice, if desired. This will count as some of your fluid amount, but will last longer and be more refreshing than a similar amount of fluid to drink. --Add lemon or cucumber to your water to help quench your thirst --Suck on a lemon slice. --Freeze or partially freeze pieces of fruit for a refreshing treat: like lemon wedges, orange sections, peaches, berries, or grapes. --Try chilled applesauce. --Breathe through your nose and not your mouth. --Avoid mid-day heat. Wound Infection A wound infection happens when germs start to grow in a wound. Germs that cause wound infections are most often bacteria. Other types of infections can occur as well. An infection can cause the wound to break open. Wound infections need treatment. If a wound infection is not treated, problems can happen. What are the causes? Most often caused by germs (bacteria) that grow in a wound. ??? Other germs, such as yeast and funguses, can also cause wound infections. What increases the risk? Having a weak body defense system (immune system). ??? Having diabetes. ??? Taking certain medicines (steroids) for a long time. ??? Smoking. ??? Being an older person. ??? Being overweight. ??? Taking certain medicines for cancer treatment. What are the signs or symptoms? Having more redness, swelling, or pain at the wound site. ??? Having more blood or fluid at the wound site. ??? A bad smell coming from a wound or bandage (dressing). ??? Having a fever. ??? Feeling very tired. ??? Having warmth at or around the wound. ??? Having pus at the wound site. How is this treated? This condition is most often treated with an antibiotic medicine. ? The infection should improve 24???48 hours after you start antibiotics. ? After 24???48 hours, redness around the wound should stop spreading. The wound should also be less painful. Follow these instructions at home: Medicines ??? Take or apply ixbi-rig-odeiwiv and prescription medicines only as told by your doctor. ??? If you were prescribed an antibiotic medicine, take or apply it as told by your doctor. Do not stop using the antibiotic even if you start to feel better. Wound care ??? Clean the wound each day, or as told by your doctor. ? Wash the wound with mild soap and water. ? Rinse the wound with water to remove all soap. ? Pat the wound dry with a clean towel. Do not rub it. ??? Follow instructions from your doctor about how to take care of your wound. Make sure you: ? Wash your hands with soap and water before and after you change your bandage. If you cannot use soap and water, use hand organ builder. ? Change your bandage as told by your doctor. ? Leave stitches (sutures), skin glue, or skin tape (adhesive) strips in place if your wound has been closed. They may need to stay in place for 2 weeks or longer. If tape strips get loose and curl up, you may trim the loose edges. Do not remove tape strips completely unless your doctor says it is okay. Some wounds are left open to heal on their own. ??? Check your wound every day for signs of infection. Watch for: ? More redness, swelling, or pain. ? More fluid or blood. ? Warmth. ? Pus or a bad smell. General instructions ??? Keep the bandage dry until your doctor says it can be removed. ??? Do not take baths, swim, or use a hot tub until your doctor approves. Ask your doctor if you may take showers. You may only be allowed to take sponge baths. ??? Raise (elevate) the injured area above the level of your heart while you are sitting or lying down. ??? Do not scratch or pick at the wound. ??? Keep all follow-up visits as told by your doctor. This is important. Contact a doctor if: ??? Medicine does not help your pain. ??? You have more redness, swelling, or pain around your wound. ??? You have more fluid or blood coming from your wound. ??? Your wound feels warm to the touch. ??? You have pus coming from your wound. ??? You notice a bad smell coming from your wound or your bandage. ??? Your wound that was closed breaks open. Get help right away if: ??? You have a red streak going away from your wound. ??? You have a fever. Summary ??? A wound infection happens when germs start to grow in a wound. ??? This condition is usually treated with an antibiotic medicine. ??? Follow instructions from your doctor about how to take care of your wound. ??? Contact a doctor if your wound infection does not start to get better in 24???48 hours, or your symptoms get worse. ??? Keep all follow-up visits as told by your doctor. This is important. This information is not intended to replace advice given to you by your health care provider. Make sure you discuss any questions you have with your health care provider. Document Revised: 09/07/2018 Document Reviewed: 09/07/2018 [employer] Patient Education ?? 2020 [employer] Hematoma A hematoma is a collection of blood. A hematoma can happen: ??? Under the skin. ??? In an organ. ??? In a body space. ??? In a joint space. ??? In other tissues. The blood can thicken (clot) to form a lump that you can see and feel. The lump is often hard and may become sore and tender. The lump can be very small or very big. Most hematomas get better in a few days to weeks. However, some hematomas may be serious and need medical care. What are the causes? This condition is caused by: ??? An injury. ??? Blood that leaks under the skin. ??? Problems from surgeries. ??? Medical conditions that cause bleeding or bruising. What increases the risk? You are more likely to develop this condition if: ??? You are an older adult. ??? You use medicines that thin your blood. What are the signs or symptoms? Symptoms depend on where the hematoma is in your body. ??? If the hematoma is under the skin, there is: ? A firm lump on the body. ? Pain and tenderness in the area. ? Bruising. The skin above the lump may be blue, dark blue, purple-red, or yellowish. ??? If the hematoma is deep in the tissues or body spaces, there may be: ? Blood in the stomach. This may cause pain in the belly (abdomen), weakness, passing out (fainting), and shortness of breath. ? Blood in the head. This may cause a headache, weakness, trouble speaking or understanding speech, or passing out. How is this diagnosed? This condition is diagnosed based on: ??? Your medical history. ??? A physical exam. ??? Imaging tests, such as ultrasound or CT scan. ??? Blood tests. How is this treated? Treatment depends on the cause, size, and location of the hematoma. Treatment may include: ??? Doing nothing. Many hematomas go away on their own without treatment. ??? Surgery or close monitoring. This may be needed for large hematomas or hematomas that affect the body's organs. ??? Medicines. These may be given if a medical condition caused the hematoma. Follow these instructions at home: Managing pain, stiffness, and swelling ??? If told, put ice on the area. ? Put ice in a plastic bag. ? Place a towel between your skin and the bag. ? Leave the ice on for 20 minutes, 2???3 times a day for the first two days. ??? If told, put heat on the affected area after putting ice on the area for two days. Use the heat source that your doctor tells you to use. This could be a moist heat pack or a heating pad. To do this: ? Place a towel between your skin and the heat source. ? Leave the heat on for 20???30 minutes. ? Remove the heat if your skin turns bright red. This is very important if you are unable to feel pain, heat, or cold. You may have a greater risk of getting burned. ??? Raise (elevate) the affected area above the level of your heart while you are sitting or lying down. ??? Wrap the affected area with an elastic bandage, if told by your doctor. Do not wrap the bandage too tightly. ??? If your hematoma is on a leg or foot and is painful, your doctor may give you crutches. Use them as told by your doctor. General instructions ??? Take uauy-sjj-hqdfnge and prescription medicines only as told by your doctor. ??? Keep all follow-up visits as told by your doctor. This is important. Contact a doctor if: ??? You have a fever. ??? The swelling or bruising gets worse. ??? You start to get more hematomas. Get help right away if: ??? Your pain gets worse. ??? Your pain is not getting better with medicine. ??? Your skin over the hematoma breaks or starts to bleed. ??? Your hematoma is in your chest or belly and you: ? Pass out. ? Feel weak. ? Become short of breath. ??? You have a hematoma on your scalp that is caused by a fall or injury, and you: ? Have a headache that gets worse. ? Have trouble speaking or understanding speech. ? Become less alert or you pass out. Summary ??? A hematoma is a collection of blood in any part of your body. ??? Most hematomas get better on their own in a few days to weeks. Some may need medical care. ??? Follow instructions from your doctor about how to care for your hematoma. ??? Contact a doctor if the swelling or bruising gets worse, or if you are short of breath. This information is not intended to replace advice given to you by your health care provider. Make sure you discuss any questions you have with your health care provider. Document Revised: 07/01/2018 Document Reviewed: 07/01/2018 [employer] Patient Education ?? 2020 [employer] Steps to Quit Smoking Smoking tobacco is the leading cause of preventable . It can affect almost every organ in the body. Smoking puts you and those around you at risk for developing many serious chronic diseases. Quitting smoking can be difficult, but it is one of the best things that you can do for your health. It is never too late to quit. How do I get ready to quit? When you decide to quit smoking, create a plan to help you succeed. Before you quit: ??? Pick a date to quit. Set a date within the next 2 weeks to give you time to prepare. ??? Write down the reasons why you are quitting. Keep this list in places where you will see it often. ??? Tell your family, friends, and co-workers that you are quitting. Support from your loved ones can make quitting easier. ??? Talk with your health care provider about your options for quitting smoking. ??? Find out what treatment options are covered by your health insurance. ??? Identify people, places, things, and activities that make you want to smoke (triggers). Avoid them. What first steps can I take to quit smoking? Throw away all cigarettes at home, at work, and in your car. ??? Throw away smoking accessories, such as ashtrays and lighters. ??? Clean your car. Make sure to empty the ashtray. ??? Clean your home, including curtains and carpets. What strategies can I use to quit smoking? Talk with your health care provider about combining strategies, such as taking medicines while you are also receiving in-person counseling. Using these two strategies together makes you more likely to succeed in quitting than if you used either strategy on its own. ??? If you are or , talk with your health care provider about finding counseling or other support strategies to quit smoking. Do not take medicine to help you quit smoking unless your health care provider tells you to do so. To quit smoking: Quit right away ??? Quit smoking completely, instead of gradually reducing how much you smoke over a period of time. Research shows that stopping smoking right away is more successful than gradually quitting. ??? Attend in-person counseling to help you build problem-solving skills. You are more likely to succeed in quitting if you attend counseling sessions regularly. Even short sessions of 10 minutes can be effective. Take medicine You may take medicines to help you quit smoking. Some medicines require a prescription and some you can purchase [id number]. Medicines may have nicotine in them to replace the nicotine in cigarettes. Medicines may: ??? Help to stop cravings. ??? Help to relieve withdrawal symptoms. Your health care provider may recommend: ??? Nicotine patches, gum, or lozenges. ??? Nicotine inhalers or sprays. ??? Non-nicotine medicine that is taken by mouth. Find resources Find resources and support systems that can help you to quit smoking and remain smoke-free after you quit. These resources are most helpful when you use them often. They include: ??? Online chats with a counselor. ??? Telephone quitlines. ??? Printed self-help materials. ??? Support groups or group counseling. ??? Text messaging programs. ??? Mobile phone apps or applications. Use apps that can help you stick to your quit plan by providing reminders, tips, and encouragement. There are many free apps for mobile devices as well as websites. Examples include Quit Guide from the CDC and smokefree.gov What things can I do to make it easier to quit? Reach out to your family and friends for support and encouragement. Call telephone quitlines (8-919-QWHB-NOW), reach out to support groups, or work with a counselor for support. ??? Ask people who smoke to avoid smoking around you. ??? Avoid places that trigger you to smoke, such as bars, parties, or smoke-break areas at work. ??? Spend time with people who do not smoke. ??? Lessen the stress in your life. Stress can be a smoking trigger for some people. To lessen stress, try: ? Exercising regularly. ? Doing deep-breathing exercises. ? Doing yoga. ? Meditating. ? Performing a body scan. This involves closing your eyes, scanning your body from head to toe, and noticing which parts of your body are particularly tense. Try to relax the muscles in those areas. How will I feel when I quit smoking? Day 1 to 3 weeks Within the first 24 hours of quitting smoking, you may start to feel withdrawal symptoms. These symptoms are usually most noticeable 2???3 days after quitting, but they usually do not last for more than 2???3 weeks. You may experience these symptoms: ??? Mood swings. ??? Restlessness, anxiety, or irritability. ??? Trouble concentrating. ??? Dizziness. ??? Strong cravings for sugary foods and nicotine. ??? Mild weight gain. ??? Constipation. ??? Nausea. ??? Coughing or a sore throat. ??? Changes in how the medicines that you take for unrelated issues work in your body. ??? Depression. ??? Trouble sleeping (insomnia). Week 3 and afterward After the first 2???3 weeks of quitting, you may start to notice more positive results, such as: ??? Improved sense of smell and taste. ??? Decreased coughing and sore throat. ??? Slower heart rate. ??? Lower blood pressure. ??? Clearer skin. ??? The ability to breathe more easily. ??? Fewer sick days. Quitting smoking can be very challenging. Do not get discouraged if you are not successful the first time. Some people need to make many attempts to quit before they achieve long-term success. Do your best to stick to your quit plan, and talk with your health care provider if you have any questions or concerns. Summary ??? Smoking tobacco is the leading cause of preventable . Quitting smoking is one of the best things that you can do for your health. ??? When you decide to quit smoking, create a plan to help you succeed. ??? Quit smoking right away, not slowly over a period of time. ??? When you start quitting, seek help from your health care provider, family, or friends. This information is not intended to replace advice given to you by your health care provider. Make sure you discuss any questions you have with your health care provider. Document Revised: 10/21/2019 Document Reviewed: 04/16/2019 [employer] Patient Education ?? 2020 [employer]. Steps to Quit Smoking Smoking tobacco is the leading cause of preventable . It can affect almost every organ in the body. Smoking puts you and people around you at risk for many serious, long-lasting (chronic) diseases. Quitting smoking can be hard, but it is one of the best things that you can do for your health. It is never too late to quit. How do I get ready to quit? When you decide to quit smoking, make a plan to help you succeed. Before you quit: ??? Pick a date to quit. Set a date within the next 2 weeks to give you time to prepare. ??? Write down the reasons why you are quitting. Keep this list in places where you will see it often. ??? Tell your family, friends, and co-workers that you are quitting. Their support is important. ??? Talk with your doctor about the choices that may help you quit. ??? Find out if your health insurance will pay for these treatments. ??? Know the people, places, things, and activities that make you want to smoke (triggers). Avoid them. What first steps can I take to quit smoking? Throw away all cigarettes at home, at work, and in your car. ??? Throw away the things that you use when you smoke, such as ashtrays and lighters. ??? Clean your car. Make sure to empty the ashtray. ??? Clean your home, including curtains and carpets. What can I do to help me quit smoking? Talk with your doctor about taking medicines and seeing a counselor at the same time. You are more likely to succeed when you do both. ??? If you are or , talk with your doctor about counseling or other ways to quit smoking. Do not take medicine to help you quit smoking unless your doctor tells you to do so. To quit smoking: Quit right away ??? Quit smoking totally, instead of slowly cutting back on how much you smoke over a period of time. ??? Go to counseling. You are more likely to quit if you go to counseling sessions regularly. Take medicine You may take medicines to help you quit. Some medicines need a prescription, and some you can buy [id number]. Some medicines may contain a drug called nicotine to replace the nicotine in cigarettes. Medicines may: ??? Help you to stop having the desire to smoke (cravings). ??? Help to stop the problems that come when you stop smoking (withdrawal symptoms). Your doctor may ask you to use: ??? Nicotine patches, gum, or lozenges. ??? Nicotine inhalers or sprays. ??? Non-nicotine medicine that is taken by mouth. Find resources Find resources and other ways to help you quit smoking and remain smoke-free after you quit. These resources are most helpful when you use them often. They include: ??? Online chats with a counselor. ??? Phone quitlines. ??? Printed self-help materials. ??? Support groups or group counseling. ??? Text messaging programs. ??? Mobile phone apps. Use apps on your mobile phone or tablet that can help you stick to your quit plan. There are many free apps for mobile phones and tablets as well as websites. Examples include Quit Guide from the CDC and smokefree.gov What things can I do to make it easier to quit? Talk to your family and friends. Ask them to support and encourage you. ??? Call a phone quitline (3-785-DDDHNOW), reach out to support groups, or work with a counselor. ??? Ask people who smoke to not smoke around you. ??? Avoid places that make you want to smoke, such as: ? Bars. ? Parties. ? Smoke-break areas at work. ??? Spend time with people who do not smoke. ??? Lower the stress in your life. Stress can make you want to smoke. Try these things to help your stress: ? Getting regular exercise. ? Doing deep-breathing exercises. ? Doing yoga. ? Meditating. ? Doing a body scan. To do this, close your eyes, focus on one area of your body at a time from head to toe. Notice which parts of your body are tense. Try to relax the muscles in those areas. How will I feel when I quit smoking? Day 1 to 3 weeks Within the first 24 hours, you may start to have some problems that come from quitting tobacco. These problems are very bad 2???3 days after you quit, but they do not often last for more than 2???3 weeks. You may get these symptoms: ??? Mood swings. ??? Feeling restless, nervous, angry, or annoyed. ??? Trouble concentrating. ??? Dizziness. ??? Strong desire for high-sugar foods and nicotine. ??? Weight gain. ??? Trouble pooping (constipation). ??? Feeling like you may vomit (nausea). ??? Coughing or a sore throat. ??? Changes in how the medicines that you take for other issues work in your body. ??? Depression. ??? Trouble sleeping (insomnia). Week 3 and afterward After the first 2???3 weeks of quitting, you may start to notice more positive results, such as: ??? Better sense of smell and taste. ??? Less coughing and sore throat. ??? Slower heart rate. ??? Lower blood pressure. ??? Clearer skin. ??? Better breathing. ??? Fewer sick days. Quitting smoking can be hard. Do not give up if you fail the first time. Some people need to try a few times before they succeed. Do your best to stick to your quit plan, and talk with your doctor if you have any questions or concerns. Summary ??? Smoking tobacco is the leading cause of preventable . Quitting smoking can be hard, but it is one of the best things that you can do for your health. ??? When you decide to quit smoking, make a plan to help you succeed. ??? Quit smoking right away, not slowly over a period of time. ??? When you start quitting, seek help from your doctor, family, or friends. This information is not intended to replace advice given to you by your health care provider. Make sure you discuss any questions you have with your health care provider. Document Revised: 10/21/2019 Document Reviewed: 04/16/2019 [employer] Patient Education ?? 2020 [employer]. Antibiotic Medicine, Adult Antibiotic medicines treat infections caused by a type of germ called bacteria. These medicines work by killing the bacteria that make you sick. You should take antibiotic medicines safely and only when needed. When do I need to take antibiotics? You may need antibiotics for: ??? A urinary tract infection (UTI). ??? Strep throat. ??? A sinus infection caused by bacteria. ??? Meningitis. This affects the spinal cord and brain. ??? A bad lung infection. You may start your medicines while your doctor waits for your results on some tests. When your results come back, your doctor may change or stop your medicine based on your test results. When are antibiotics not needed? You do not need these medicines for most common illnesses, such as: ??? A cold. ??? The flu. ??? A sore throat. ??? Mucus being an odd color. ??? Bronchitis. Sometimes, antibiotics are not needed for an infection caused by bacteria. Do not ask for these medicines, or take them, when they are not needed. How long should I take my antibiotic? You need to take all your medicine. Take your antibiotic medicine as told by your doctor. Do not stop taking the antibiotic even if you start to feel better. If you stop taking it too soon: ??? You may feel sick again. ??? Your infection may get harder to treat. Antibiotics need different amounts of time to work. Some treatments last just a few days. Some last about a week to 10 days. Sometimes, you may need to take antibiotics for a few weeks to fully treat your infection. What if I miss a dose? Try not to miss a dose. If you miss a dose, call your doctor or pharmacist. Sometimes, it is okay to take the missed dose as soon as you can. Do not take an extra dose. What are the risks of taking antibiotics? Antibiotics can cause: ??? Allergic attacks. ??? A feeling like you may vomit (nausea). ??? Yeast infections. ??? Liver problems. These medicines can cause an infection called C. diff. This causes watery poop (diarrhea). This happens when antibiotics kill good germs in your gut. This lets C. diff grow. Tell your doctor right away if: ??? You get watery poop while taking your antibiotic. ??? You get watery poop after you stop your antibiotic. C. diff can happen weeks after you stop your medicine. You also have a risk of getting an infection in the future that antibiotics cannot treat (antibiotic-resistant infection). These infections can get very bad. Sometimes, they can be life-threatening. Do antibiotics affect control? control pills may not work. If you take control pills: ??? Keep taking them as normal. ??? Use a second form of control, such as a condom. Do this for as long as told by your doctor. What else should I know about taking antibiotics? You need to take these medicines exactly as told. Make sure to do these things: ??? Take the right amount of medicine at the same time each day. ??? Ask your doctor: ? How long to wait between doses. ? If you should take your medicine with food. ? If you should stay away from some foods, drinks, or medicines. ? What side effects you should watch for. ??? Use only the medicines that your doctor said to use. Do not use medicines that were given to someone else. ??? Drink a large glass of water when you take your medicine. Drink enough fluid to keep your pee (urine) pale yellow. ??? Ask your pharmacist for a tool to measure your medicine. This may be a syringe, cup, or spoon. ??? Throw out any extra medicine. Follow these instructions at home: ??? Take beoj-inu-btwmaxf and prescription medicines as told by your doctor. ??? Return to your normal activities as told by your doctor. Ask your doctor what activities are safe for you. ??? Keep all follow-up visits as told by your doctor. This is important. Contact a doctor if: ??? You feel worse. ??? You have one of these after you start your medicine: ? New joint pain. ? New muscle aches. ??? You have side effects from your medicine, such as: ? Stomach pain. ? Watery poop. ? Feeling like you may vomit. ? White patches in your mouth or throat. Get help right away if: ??? You have a very bad allergic attack. If this happens, stop taking your medicine right away. You may get: ? Hives. These are raised, itchy, red bumps on your skin. ? Skin rash. ? Trouble breathing. ? Breathing that has whistling sounds. ? Swelling on your body. ? A dizzy feeling. ? Vomiting. ??? You have symptoms of liver problems. You may have: ? Dark pee, or pee that is the color of blood. ? Yellow skin. ? Easy bruising. ? Easy bleeding. ??? You have very bad watery poop. ??? You have cramps in your belly. ??? You have a very bad headache. These symptoms may be an emergency. Do not wait to see if the symptoms will go away. Get medical help right away. Call your local emergency services (911 in the [place] Do not drive yourself to the hospital. Summary ??? Antibiotics are used to treat infections caused by bacteria. ??? Take these medicines safely and only when needed. ??? Your doctor may change or stop your medicine based on your test results. ??? Take all your medicine even when you feel better. This information is not intended to replace advice given to you by your health care provider. Make sure you discuss any questions you have with your health care provider. Document Revised: 11/15/2019 Document Reviewed: 11/15/2019 [employer] Patient Education ?? 2020 [employer]. Infection Prevention in the Home If you have an infection, may have been exposed to an infection, or are taking care of someone who has an infection, it is important to know how to keep the infection from spreading. Follow your health care provider's instructions and use these guidelines to help stop the spread of infection. How infections are spread In order for an infection to spread, the following must be present: ??? A germ. This may be a virus, bacteria, fungus, or parasite. ??? A place for the germ to live. This may be: ? On or in a person, animal, plant, or food. ? In soil or water. ? On surfaces, such as a door handle. ??? A person or animal who can develop a disease if the germ enters the body (host). The host does not have resistance to the germ. ??? A way for the germ to enter the host. This may occur by: ? Direct contact with an infected person or animal. This can happen through shaking hands or hugging. Some germs can also travel through the air and spread to others. This can happen when an infected person coughs or sneezes on or near other people. ? Indirect contact. This occurs when the germ enters the host through contact with an infected object. Examples include: ? Eating or drinking food or water that has the germ (is contaminated). ? Touching a contaminated surface with your hands, and then touching your face, eyes, nose, or mouth. Supplies needed: ??? Soap. ??? Alcohol-based hand organ builder. ??? Standard cleaning products. ??? Disinfectants, such as bleach. ??? Reusable cleaning cloths, sponges, or paper towels. ??? Disposable or reusable utility gloves. How to prevent infection from spreading There are several things that you can do to help prevent infection from spreading. Take these general actions Everyone should take the following actions to prevent the spread of infection: ??? Wash your hands often with soap and water for at least 20 seconds. If soap and water are not available, use alcohol-based hand organ builder. ??? Avoid touching your face, mouth, nose, or eyes. ??? Cough or sneeze into a tissue, sleeve, or elbow instead of into your hand or into the air. ? If you cough or sneeze into a tissue, throw it away immediately and wash your hands. Keep your bathroom clean ??? Provide soap. ??? Change towels and washcloths frequently. ??? Change toothbrushes often and store them separately in a clean, dry place. ??? Clean and disinfect all surfaces, including the toilet, floor, tub, shower, and sink. ??? Do not share personal items, such as razors, toothbrushes, deodorant, evans, brushes, towels, and washcloths. Maintain hygiene in the kitchen ??? Wash your hands before and after preparing food and before you eat. ??? Clean the inside of your refrigerator each week. ??? Keep your refrigerator set at 40??F (4??C) or less, and set your freezer at 0??F (???18??C) or less. ??? Keep work surfaces clean. Disinfect them regularly. ??? Wash your dishes in hot, soapy water. Air-dry your dishes or use a learning support assistant. ??? Do not share dishes or eating utensils. Handle food safely ??? Store food carefully. ??? Refrigerate leftovers promptly in covered containers. ??? Throw out stale or spoiled food. ??? Thaw foods in the refrigerator or microwave, not at room temperature. ??? Serve foods at the proper temperature. Do not eat raw meat. Make sure it is cooked to the appropriate temperature. Cook eggs until they are firm. ??? Wash fruits and vegetables under running water. ??? Use separate cutting boards, plates, and utensils for raw foods and cooked foods. ??? Use a clean spoon each time you sample food while cooking. Do laundry the right way ??? Wear gloves if laundry is visibly soiled. ??? Do not shake soiled laundry. Doing that may send germs into the air. ??? Wash laundry in hot water. ??? If you cannot wash the laundry right away, place it in a plastic bag and wash it as soon as possible. Be careful around animals and pets ??? Wash your hands before and after touching animals. ??? If you have a pet, ensure that your pet stays clean. Do not let people with weak immune systems touch bird droppings, fish tank water, or a litter box. ? If you have a pet cage or litter box, be sure to clean it every day. ??? If you are sick, stay away from animals and have someone else care for them if possible. How to clean and disinfect objects and surfaces Precautions ??? Some disinfectants work for certain germs and not others. Read the computer training specialist's instructions or read online resources to determine if the product you are using will work for the germ you are trying to remove. ??? If you choose to use bleach, use it safely. Never mix it with other cleaning products, especially those that contain ammonia. This mixture can create a dangerous gas that may be deadly. ??? Keep proper movement of fresh air in your home (ventilation). ??? Pour used mop water down the utility sink or toilet. Do not pour this water down the kitchen sink. Objects and surfaces ??? If surfaces are visibly soiled, clean them first with soap and water before disinfecting. ??? Disinfect surfaces that are frequently touched every day. This may include: ? Counters. ? Tables. ? Doorknobs. ? Sinks and faucets. ? Electronics, such as: ? Phones. ? Remote controls. ? Keyboards. ? Computers and tablets. Cleaning supplies Some cleaning supplies can breed germs. Take good care of them to prevent germs from spreading. To do this: ??? Soak toilet brushes, mops, and sponges in bleach and water for 5 minutes after each use, or according to computer training specialist's instructions. ??? Wash reusable cleaning cloths and sanitize sponges after each use. ??? Throw away disposable gloves after one use. ??? Replace reusable utility gloves if they are cracked or torn or if they start to peel. Additional actions if you are sick If you live with other people: ??? Avoid close contact with those around you. Stay at least 3 ft (1 m) away from others, if possible. ??? Use a separate bathroom, if possible. ??? If possible, sleep in a separate bedroom or in a separate bed to prevent infecting other household members. ? Change bedroom linens each week or whenever they are soiled. ??? Have everyone in the household wash hands often with soap and water. If soap and water are not available, use alcohol-based hand organ builder. In general: ??? Stay home except to get medical care. Call ahead before visiting your health care provider. ??? Ask others to get groceries and household supplies and to refill prescriptions for you. ??? Avoid public areas. Try not to take public transportation. ??? If you can, wear a mask if you need to go out of the house, or if you are in close contact with someone who is not sick. ??? Avoid visitors until you have completely recovered, or until you have no signs and symptoms of infection. ??? Avoid preparing food or providing care for others. If you must prepare food or provide care for others, wear a mask and wash your hands before and after doing these things. Where to find more information ??? Centers for Disease Control and Prevention: www.cdc.gov/nonpharmaceutical-interventions/index.html ??? World Health Organization (WHO): www.who.int/infection-prevention/about/en/ ??? Association for Professionals in Infection Control and Epidemiology: professionals.site.apic.org/nbabqzek-yj-emuf/xse-yqvwztnsle-rigxyjm/home/ Summary ??? It is important to know how to keep the infection from spreading. ??? Make sure everyone in your household washes their hands often with soap and water. ??? Disinfect surfaces that are frequently touched every day. ??? If you are sick, stay home except to get medical care. This information is not intended to replace advice given to you by your health care provider. Make sure you discuss any questions you have with your health care provider. Document Revised: 04/02/2020 Document Reviewed: 04/22/2019 [employer] Patient Education ?? 2020 [employer]. doxycycline (oral/injection) (DOX romain gallo) Acticlate, Adoxa, Alodox, Avidoxy, Doryx, Mondoxyne NL, Monodox, Morgidox, Okebo, Oracea, Oraxyl, Targadox, Vibramycin What is the most important information I should know about doxycycline? You should not take this medicine if you are allergic to any tetracycline antibiotic. Children younger than 8 years old should use doxycycline only in cases of severe or life-threatening conditions. This medicine can cause permanent yellowing or graying of the teeth in children documented in this encounter Plan of Treatment Not on file documented as of this encounter Visit Diagnoses Not on filedocumented in this encounter Care Teams Seismic Observer Relationship Specialty Start Date End Date Petras, Linh L, DO [address] [place] [address] PCP - General Family Medicine 11/04/22 Lizzie Alves PA-C [address] [place] [address] Hospitalist Cardiology 05/27/23 Dion Lin MD [address] [facility] [address] [place] [address] Book Author Electrophysiology 11/18/23 documented as of this encounter
--- OUTSIDE RECORDS SUMMARY | 2024-07-27 14:22 | XMS_ITS | Encounter Summary ---
Author Organization [employer] [facility] Init iatives Address [address] [place] [address] Care Team Providers Care Head Knitting Machine Fixer Name Role Phone Linh Doty DO Primary Care Provider [phone] Lizzie Alves PA-C Unavailable [phone] Kaushik Mariscal MD Unavailable Encounter Details Date Type Department Care Team (Late st Contact Info) Description 07/02/2021 Transcribed Document [facility] Family Medicine [address] [place] [address] ProviderChad MD [address] [place] [address] Social History Tobacco Use Types Packs/Day Years Used Date Smoking Tobacco: Never Assessed Comments Unknown Sex and Gender Information Value Date Recorded Sex Assigned at Not on file Legal Sex Female 3:27 PM CDT Gender Identity Not on file Sexual Orientation Not on file documented as of this encounter Miscellaneous Notes * Cerner Conversion Note - Chad Merchant MD - 07/02/2021 12:49 PM CDT Final Discharge Planning Entered On: 07/02/2021 12:51 EDT Performed On: 07/02/2021 12:49 EDT by ERNIE PAYAN, RN-Business Administration Professor Final Discharge Planning Discharge Arrangements : Patient Post-Acute Information Patient Name: GAGAN MENDOZA Gender: Female : [birth year] Age: 55 Years No Post-Acute Placement(s) Listed No Post-Acute Service(s) Listed No Curaspan Referral(s) Listed Transportation Needs : Car Follow Up Appointment Scheduled : Yes Is Patient High/Moderate Readmission Risk? : No Patient/Family Notified of Plan : Yes Support Person/Pt Rep Notified of Plan : Yes Patient/Family Notified : so Is Patient Ready for Discharge? : Yes Physician Notified Patient is Ready for Discharge? : Yes Discharge To Care Management : Home/Residential/[facility] or Self Care -01 ERNIE PAYAN, RN-Business Administration Professor - 07/02/2021 12:49 EDT Final Narrative Note Final Narrative Note : see notes regarding pt decline of home 02. follow up appts scheduled with Dr Mariscal. Dr Doty, primary care. called office. out of office for lunch. left message for them to call pt with appt time next 2-3 days. discussed all with bedside SARAH Yu. ERNIE PAYAN, RN-Business Administration Professor - 07/02/2021 12:49 EDT Electronically signed by Rek[facility] Conversion Lead Radiation Therapist Cerner at 05/27/2022 9:15 PM CDT documented in this encounter Plan of Treatment Not on file documented as of this encounter Visit Diagnoses Not on filedocumented in this encounter Care Teams Head Knitting Machine Fixer Relationship Specialty Start Date End Date Linh Doty, [address] [facility] [address] [place] [address] PCP - General Family Medicine 11/04/22 Lizzie Alves PA-C [address] [place] [address], [facility] [address] [place] [address] Hospitalist Cardiology 05/27/23 Kaushik Mariscal MD [address] [facility] [address] [place] [address] Dispatcher Motor Vehicle Electrophysiology 11/18/23 documented as of this encounter
--- OUTSIDE RECORDS SUMMARY | 2024-07-27 14:22 | XMS_ITS | Encounter Summary ---
Author Organization [employer] [facility] Init iatives Address [address] [place] [address] Care Team Providers Care Rate Examiner Name Role Phone Linh Doty DO Primary Care Provider [phone] Lizzie Alves PA-C Unavailable [phone] Kaushik Mariscal MD Unavailable Reason for Visit * Reason Comments Medication Refill Encounter Details Date Type Department Care Team (Late st Contact Info) Description 04/27/2023 Refill [facility] Cardiology [address] [place] [address] Lenka Benavidez MD [address] [facility] [address] [place] [address] 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 Benavidez for further refills. 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
--- OUTSIDE RECORDS SUMMARY | 2024-07-27 14:22 | XMS_ITS | Encounter Summary ---
Author Organization [facility] Init iatives Address [address] [place] [address] Care Team Providers Care Gift Officer Name Role Phone Linh Doty DO Primary Care Provider [phone] Lizzie Alves PA-C Unavailable [phone] Kaushik Mariscal MD Unavailable Encounter Details Date Type Department Care Team (Late st Contact Info) Description 07/16/2021 Transcribed Document [facility] Family Medicine [address] [place] [address] ProviderChad MD [address] [place] [address] Social History Tobacco Use Types Packs/Day Years Used Date Smoking Tobacco: Never Assessed Comments Unknown Sex and Gender Information Value Date Recorded Sex Assigned at Not on file Legal Sex Female 3:27 PM CDT Gender Identity Not on file Sexual Orientation Not on file documented as of this encounter Miscellaneous Notes * Cerner Conversion Note - Chad Merchant MD - 07/16/2021 12:47 PM CDT Patient: GAGAN MENDOZA Age: 55 years Sex: Female : 1965 Associated Diagnoses: Pacemaker pocket hematoma Author: FENG MODI MD-EMR Basic Information Additional information: Chief Complaint from Nursing Triage Note : Chief Complaint 07/16/2021 12:06 EDT Chief Complaint Pt states she has a blood pocket surrounding her pacemaker. Was brought over by EP lab. Pacemaker places [address] 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 States 02 run between 88-93. Hx of COPD. Denies SOB/chest pain . History of Present Illness Pt is a 55 year old female who presents to the ED today from her physician's office with complaints of bleeding. Patient had an internal defibrillator placed 3 weeks ago. She states that she has been following aftercare instructions properly since then and has only been gently cleaning around the site with a washcloth. She states that yesterday around 2:00 she noticed that she was bleeding around the site. She states that 2 days ago she noticed that the site looked swollen and was producing a bloody discharge. She denies submerging the wound site. She also denies fever, chills, sweats, fatigue, falls, rashes, chest pain, and shortness of breath. Review of Systems Constitutional symptoms: Negative except as documented in HPI. Skin symptoms: Negative except as documented in HPI. Eye symptoms: Negative except as documented in HPI. ENMT symptoms: Negative except as documented in HPI. Respiratory symptoms: Negative except as documented in HPI. Cardiovascular symptoms: Negative except as documented in HPI. Gastrointestinal symptoms: Negative except as documented in HPI. Genitourinary symptoms: Negative except as documented in HPI. Musculoskeletal symptoms: Negative except as documented in HPI. Neurologic symptoms: Negative except as documented in HPI. Psychiatric symptoms: Negative except as documented in HPI. Endocrine symptoms: Negative except as documented in HPI. Hematologic/Lymphatic symptoms: Negative except as documented in HPI. Allergy/immunologic symptoms: Negative except as documented in HPI. Additional review of systems information: All other systems reviewed and otherwise negative, All systems reviewed as documented in chart. Health Status Allergies: Allergic Reactions (Selected) No Known Allergies. Medications: (Selected) Inpatient Medications Ordered Zosyn + Sodium Chloride 0.9% intravenous solution 100 mL: 4.5 Gram, 200 mL/Hr, IV Piggyback, 1-Time vancomycin: 1,500 mg, 250 mL, 250 mL/Hr, IV Piggyback, 1-Time Documented Medications Documented Plavix 75 mg oral [...] 50 mcg inhalation powder: 1 Puff, Inhalation, [id number], rinse mouth and throat after use, 30 [...] release: 1 Cap, Oral, At Bedtime, 0 Refill(s). Past Medical/ Family/ Social History Surgical history: ICD implant. heart catheterization- multiple. peripheral angiogram - multiple. uterine surgery.. Family history: No family history items have been selected or recorded.. Social history: Social & Psychosocial Habits Alcohol 07/01/2021 Alcohol Use History, Social Habits No Alcohol Use in Last Twelve Months No Substance Abuse 07/01/2021 Recreational Drug Use History No Recreational Drug Use Last 12 Months No Tobacco 07/01/2021 Smoking Status 10 or more cigarettes (1/ Smokeless Tobacco Status Never Smokeless Tobacco Use History None Years of Tobacco Use 40 . Problem list: Active Problems (12) Arteriosclerosis At risk for sleep apnea Cardiomyopathy Chronic CHF Current smoker Gout High cholesterol History of IN (myocardial infarction) Intermittent claudication Pacemaker PAD (peripheral artery disease) Stented coronary artery . Physical Examination Vital Signs Vital Signs/Vital Measures 07/16/2021 12:06 EDT Systolic Blood Pressure 152 mmHg HI Diastolic Blood Pressure 84 mmHg Temperature Source Oral Temperature Mode Fahrenheit Temperature, Fahrenheit 98.0 Deg F Clinical Temperature, C 36.7 Deg C Peripheral Pulse Rate 78 bpm Respiratory Rate 20 Breaths/Min Oxygen Saturation 90 % LOW Oxygen Therapy Mode Room air . Oxygen Saturation 07/16/2021 12:06 EDT Oxygen Saturation 90 % LOW . General: Alert, no acute distress. Skin: Warm, dry, pink, no pallor, no rash. Head: Normocephalic, atraumatic. Neck: Supple, trachea midline. Eye: Pupils are equal, round and reactive to light, normal conjunctiva. Cardiovascular: Regular rate and rhythm, No murmur, Normal peripheral perfusion. Respiratory: Lungs are clear to auscultation, respirations are non-labored, breath sounds are equal. Gastrointestinal: Soft, Nontender, Non distended, Normal bowel sounds. Neurological: Alert and oriented to person, place, time, and situation, No focal neurological deficit observed, CN II-XII intact. Lymphatics: No lymphadenopathy. Psychiatric: Cooperative, appropriate mood & affect. Medical Decision Making Orders Include Previous Orders (Selected) Inpatient Orders Ordered Broset Violence Assessment: Cardiac Monitoring: ECG: ED Adult Fall Risk Assessment: ED C-SSRS: ED Clinical Reconciliation: ED elevator installer apprentice: Peripheral IV Insertion: Completed .Automated Differential: Aerosol Treatment (RT): CBC w/ Auto Diff: CMP Comprehensive Metabolic Panel: CR Chest 1 Vw Portable: DuoNeb 0.5 mg-2.5 mg/3 mL inhalation solution: 3 mL, Nebulized Inhalation, 1-Time ED Adult Triage: Lactic Acid Level with Reflex if Indicated: Magnesium Level: PT/INR Prothrombin Time: ProBNP: Procalcitonin: Zosyn + Sodium Chloride 0.9% intravenous solution 100 mL: 4.5 Gram, 200 mL/Hr, IV Piggyback, 1-Time vancomycin: 1,500 mg, 250 mL, 250 mL/Hr, IV Piggyback, 1-Time Pending Complete (Ordered) Culture Blood: . Electrocardiogram: Time 07/16/2021 12:26:00, rate 74, normal sinus rhythm, Normal sinus rhythm rate of 74. Incomplete right bundle branch block.. Results review: Lab results : Lab Results 07/16/2021 12:40 EDT Sodium Level 138 mmol/L Potassium Level 4.1 mmol/L Chloride Level 105 mmol/L Carbon Dioxide Level 28 mmol/L Anion Gap 9 Glucose Level 97 mg/dL Blood Urea Nitrogen 10 mg/dL Creatinine Level 0.80 mg/dL eGFR >60 mL/min/1.73m2 eGFR NonAfrican >60 mL/min/1.73m2 Bun/Creatinine 12.5 Calcium Level 10.7 mg/dL HI Protein Total 7.6 Gram/dL Albumin Level 3.5 Gram/dL Globulin 4.1 Gram/dL A/G Ratio 0.9 LOW Bilirubin Total 0.6 mg/dL Alk Phos 142 Units/Liter HI AST 26 Units/Liter ALT 25 Units/Liter Magnesium Level 1.6 mg/dL Lactic Acid Level 1.0 mmol/L ProBNP 1,947 pg/mL HI WBC 7.4 K/uL RBC 5.75 Million/uL HI Hgb 17.9 g/dL HI Hct 56.1 % HI MCV 97.6 fL HI MCH 31.1 pg MCHC 31.9 Gram/dL LOW Platelet Count 140 K/uL LOW MPV 11.4 fL RDW 17.4 % HI Neut % 55.7 % Neut # 4.12 K/uL Lymph % 33.7 % Lymph # 2.49 x10(3)/uL Ravalli % 7.7 % [place]alli # 0.57 K/uL Eos % 1.1 % Eos # 0.08 x10(3)/uL Baso % 1.5 % Baso # 0.11 x10(3)/uL Slide Review No IG# 0.02 x10(3)/uL IG% 0.30 % PT 11.1 Second(s) INR 1.0 Procalcitonin <0.25 ng/mL . Radiology results: Radiology Results (Last 48 hours) [id number] -- 07/16/2021 12:00 CR Chest 1 Vw Portable (07/16/2021 13:03) [...] agree with the above final transcribed report. . Reexamination/ Reevaluation Discussed with Dr. Mariscal; would like us to initiate antibiotics after cultures. Impression and Plan Diagnosis Pacemaker pocket hematoma - Discharge, Emergency medicine, Medical Calls-Consults - 07/16/2021 14:12:00 , REYNALDO CURIEL MD-INT, will admit to med/surg tele. Plan Condition: Stable. Counseled: Patient, Family. Orders: Launch Orders Admit/Transfer/Discharge: Admit to Inpatient (Order): Start: 07/16/2021 14:13 EDT, Admit reason: pacemaker pocket bleeding, Estimated length of stay 2 Midnights or LONGER, Level of Care: Med-Surg with telemetry, Admitting: REYNALDO CURIEL MD-INT. Electronically signed by Rekha, [facility] Conversion Car Head Liner Installer Cerner at 05/27/2022 8:59 PM CDT documented in this encounter Plan of Treatment Not on file documented as of this encounter Visit Diagnoses Not on filedocumented in this encounter Care Teams Gift Officer Relationship Specialty Start Date End Date Linh Doty, DO [address] [facility] [address] [place] [address] PCP - General Family Medicine 11/04/22 Lizzie Alves PA-C [address] [place] [address], [facility] [address] [place] [address] Hospitalist Cardiology 05/27/23 Kaushik Mariscal MD [address] [facility] [address] [place], [place] [id number] Graphic Pre Press Trades Worker Electrophysiology 11/18/23 documented as of this encounter
--- OUTSIDE RECORDS SUMMARY | 2024-07-27 14:22 | XMS_ITS | Encounter Summary ---
Author Organization [employer] [facility] Init iatives Address [address] [place] [address] Care Team Providers Care Wet End Supervisor Name Role Phone Lalitha Linhkarthikeyan Mazariegos DO Primary Care Provider [phone] Lizzie Alves PA-C Unavailable [phone] Kaushik Mariscal MD Unavailable Encounter Details Date Type Department Care Team (Late st Contact Info) Description 07/25/2021 Transcribed Document [facility] Family Medicine [address] [place] [address] ProviderChad MD [address] [place] [address] Social History Tobacco Use Types Packs/Day Years Used Date Smoking Tobacco: Never Assessed Comments Unknown Sex and Gender Information Value Date Recorded Sex Assigned at Not on file Legal Sex Female 3:27 PM CDT Gender Identity Not on file Sexual Orientation Not on file documented as of this encounter Miscellaneous Notes * Cerner Conversion Note - Chad ProviderMD - 07/25/2021 2:00 AM CDT [place] [employer] Group Leader Details Entered On: 07/25/2021 0:58 EDT Performed On: 07/25/2021 2:00 EDT by Jessica Recinos Lpn Order Details Transport Mode Order Detail : Stretcher/Gurney Isolation Precautions Order Detail : Standard Precautions Order Detail : 0 IV Order Detail : 1 Oxygen Order Detail : 1 Lift/Transfer : Minimal Central Line Order Detail : No Room Service : Appropriate Arterial Line : No Patient Needs Meds Crushed/Liquid : No Jessica Recinso Lpn - 07/25/2021 0:58 EDT Electronically signed by [facility] Conversion Schedule Manager Cerner at 05/27/2022 9:09 PM CDT documented in this encounter Plan of Treatment Not on file documented as of this encounter Visit Diagnoses Not on filedocumented in this encounter Care Teams Wet End Supervisor Relationship Specialty Start Date End Date Linh Doty, DO 8 [facility] [address] [place] [address] PCP - General Family Medicine 11/04/22 Lizzie Alves PA-C [address] [facility] [address] [place] [address] Hospitalist Cardiology 05/27/23 Kaushik Mariscal MD [address] [facility] [address] [place] [address] Home Security Professional Electrophysiology 11/18/23 documented as of this encounter
--- OUTSIDE RECORDS SUMMARY | 2024-07-27 14:22 | XMS_ITS | Encounter Summary ---
Author Organization [facility] Init iatives Address [address] [place] [address] Care Team Providers Care Manager Patient Name Role Phone Linh William DO Primary Care Provider Lizzie Alves PA-C Unavailable [phone] Dion Mariscal MD Unavailable Encounter Details Date Type Department Care Team (Late st Contact Info) Description 07/02/2021 Transcribed Document [facility] Family Medicine [address] [place] [address] ProviderChad MD [address] [place] [address] Social History Tobacco Use Types Packs/Day Years Used Date Smoking Tobacco: Never Assessed Comments Unknown Sex and Gender Information Value Date Recorded Sex Assigned at Not on file Legal Sex Female 3:27 PM CDT Gender Identity Not on file Sexual Orientation Not on file documented as of this encounter Miscellaneous Notes * Cerner Conversion Note - Chad Merchant MD - 07/02/2021 2:55 PM CDT [facility] [place] [address] LENA MENDOZA :1965 Visit Time:07/01/2021 Your Visit Summary Your Care Team Admitting Physician - DION MARISCAL MD-REJI Attending Physician - DION MARISCAL MD-REJI Primary Care Physician - LINH WILLIAM DO-KRISS Referring Physician - LINH WILLIAM DO-FAM Your Diagnosis Paroxysmal atrial fibrillation, Paroxysmal atrial fibrillation These Are Your Goals Patient Discharge Goal Patient Discharge Goal: Home Discharge Vitals Heart Rate (Monitored) 88 Respiratory Rate 26 Blood Pressure 121/80 What to do next Instructions From Your [...] EDT Comments wound device check Where: [address] [facility] [address] [place] [address]- Business (1) Follow Up with LINH WILLIAM DO-FAM When Within 2 to 3 days Comments left message for Dr William office to call pt with appt time. They were out for lunch Where: [address] [place] [address]- Medications What How Much When Instructions Next Dose acetaminophen-hydrocodone (acetaminophen-HYDROcodone 325 mg-5 mg oral tablet) 120 Each, TAKE ONE TABLET BY MOUTH EVERY 6 HOURS MAY CAUSE DROWSINESS cephalexin (Keflex 500 mg oral capsule) 1 Capsule(s) Oral Every 8 Hours Duration: 7 Day(s) Pickup at [facility] clopidogrel (Plavix 75 mg oral tablet) 1 [...] Tablet(s) Oral At Bedtime Pharmacy Information [facility]: [address] [facility] [address] [place], [place] [id number] [phone] Take your medications faithfully. Do NOT skip [...] Keep items that you use often in cfup-ng-ohfje places. Lower the shelves around your home [...] the way. ??? Do not use floor mauritian or wax that makes floors slippery. What [...] Control and Prevention, [place]: www.cdc.gov ??? National [place] on Aging: www.delia.nih.gov Contact a doctor if: [...] provider. Document Revised: 08/29/2020 Document Reviewed: 08/29/2020 [employer] Patient Education ?? 2020 [employer]. Sleep Apnea Sleep apnea affects breathing during [...] ask your doctor. General instructions ??? Take fbcj-upz-yutgikv and prescription medicines only as told by [...] these instructions at home: Medicines ??? Take hhod-enw-vwbtrox and prescription medicines only as told by [...] and water are not available, use hand silk screen frame assembler. ? Change your dressing as told by [...] your chest for several days. ??? Take hfqu-dph-izaujnl and prescription medicines only as told by [...] provider. Document Revised: 12/27/2018 Document Reviewed: 12/27/2018 ElseMASS-ACTIVE Techgroup Patient Education ?? 2020 Re[employer] Technologies Inc. Emergency Awareness and Preventative Care STROKE [...] Assistance with quitting is available by contacting 0-647-ZQNC-NOW. This is a free resource providing counseling, [...] range between ( 0.0 and 7.0 ) [place] #: 0.57 K/uL -- Normal range between ( 0.16 and 1.00 ) Eos #: 0.05 x10(3)/uL -- Normal range between ( 0.00 and 0.80 ) [place] %: 6.9 % -- Normal range between [...] was given the opportunity to ask questions. Patient/Operations Lieutenant Name: Patient/Operations Lieutenant Signature: Relationship to Patient: Clinician/Hospital Operations Lieutenant Signature: Date: documented in this encounter Plan of Treatment Not on file documented as of this encounter Visit Diagnoses Not on filedocumented in this encounter Care Teams Manager Patient Relationship Specialty Start Date End Date Linh William, DO 8 [facility] [address] [place] [address] PCP - General Family Medicine 11/04/22 Lizzie Alves PA-C [address] [place] [address], [facility] [address] [place] [address] Hospitalist Cardiology 05/27/23 Dion Mariscal MD 14[address] [facility] [address] [place] [address] Car Oiler Electrophysiology 11/18/23 documented as of this encounter
--- OUTSIDE RECORDS SUMMARY | 2024-07-27 14:22 | XMS_ITS | Encounter Summary ---
Author Organization [facility] [employer] [place] [facility] Init iatives Address [address] [place] [address] Care Team Providers Care Keller Machine Operator Name Role Phone Linh Doty DO Primary Care Provider [phone] Lizzie Alves PA-C Unavailable [phone] Kaushik Mariscal MD Unavailable Encounter Details Date Type Department Care Team (Late st Contact Info) Description 07/02/2021 Transcribed Document [facility] Family Medicine [address] [place] [address] ProviderChad MD [address] [place] [address] Social History Tobacco Use Types Packs/Day Years Used Date Smoking Tobacco: Never Assessed Comments Unknown Sex and Gender Information Value Date Recorded Sex Assigned at Not on file Legal Sex Female 3:27 PM CDT Gender Identity Not on file Sexual Orientation Not on file documented as of this encounter Miscellaneous Notes * Cerner Conversion Note - Chad Merchant MD - 07/02/2021 11:31 AM CDT [facility] Authorization Entered On: 07/02/2021 11:31 EDT Performed On: 07/02/2021 11:31 EDT by Khushi Jones Rn-Utilization Review Primary Insurance Authorization Authorization and Policy Numbers : Insurance 1 Health Plan: [employer] MANAGED MEDICARE Policy Number: [id number] Authorization Number: [id number] Insurance Primary Name : Health Plan: [employer] MANAGED MEDICARE Policy Number: [id number] Authorized Service Begin Date-Primary : 07/01/2021 EDT Historical Authorization Comments-Primary : No Authorization Comments Found Khushi Jones Rn-Utilization Review - 07/02/2021 11:31 EDT documented in this encounter Plan of Treatment Not on file documented as of this encounter Visit Diagnoses Not on filedocumented in this encounter Care Teams Keller Machine Operator Relationship Specialty Start Date End Date Linh Doty, 8 [facility] [address] [place] [address] PCP - General Family Medicine 11/04/22 Lizzie Alves PA-C [address] [place] [address], [facility] [address] [place] [address] Hospitalist Cardiology 05/27/23 Kaushik Mariscal MD [address] [facility] [address] [place] [address] Fashion Designer Electrophysiology 11/18/23 documented as of this encounter
--- OUTSIDE RECORDS SUMMARY | 2024-07-27 14:22 | XMS_ITS | Encounter Summary ---
Author Organization [employer] [facility] Init iatives Address [address] [place] [address] Care Team Providers Care Cigarette Tester Name Role Phone Lihn Doty DO Primary Care Provider [phone] Lizzie Alves PA-C Unavailable [phone] Kaushik Mariscal MD Unavailable Encounter Details Date Type Department Care Team (Late st Contact Info) Description 07/16/2021 Transcribed Document [facility] Family Medicine [address] [place] [address] ProviderChad MD [address] [place] [address] Social History Tobacco Use Types Packs/Day [...] 2:49 PM CDT Pain Assessment Entered On: 07/17/2021 8:59 EDT Performed On: 07/17/2021 8:59 EDT by NEGRITA PLEITEZ RN Intervention Information: morphine Performed by NEGRITA BAILON RN on 07/17/2021 02:29:00 EDT morphine,2mg IV Push,Peripheral Line 1,Pain (Severe 7-10) Pain Assessment Pain Assessment : Follow-up assessment Pain Scale Used : 0-10 Scale NEGRITA PLEITEZ RN - 07/17/2021 8:59 EDT Pain Scale Intensity : 0 NEGRITA PLEITEZ RN - 07/17/2021 8:59 EDT Image 4 - Images currently included in the form version of this document have not been included in the text rendition version of the form. documented in this encounter Plan of Treatment Not on file documented as of this encounter Visit Diagnoses Not on filedocumented in this encounter Care Teams Cigarette Tester Relationship Specialty Start Date End Date Linh Doty, DO 8 [facility] [address] [place] [address] PCP - General Family Medicine 11/04/22 Lizzei Alves PA-C 1401 [facility], [email or web address] [address] [place] [address] Hospitalist Cardiology 05/27/23 Kaushik Mariscal MD 1401 [facility] [address] [place] [address] Sports Journalist Electrophysiology 11/18/23 documented as of this encounter
--- OUTSIDE RECORDS SUMMARY | 2024-07-27 14:22 | XMS_ITS | Encounter Summary ---
Author Organization [employer] [facility] Init iatives Address [address] [place] [address] Care Team Providers Care Cafeteria Helper Name Role Phone Linh Doty DO Primary Care Provider [phone] Lizzie Alves PA-C Unavailable [phone] Kaushik Mariscal MD Unavailable Reason for Visit * Reason Comments Medication Refill Encounter Details Date Type Department Care Team (Late st Contact Info) Description 05/25/2023 Refill [facility] Cardiology [address] [place] [address] Lenka Benavidez MD 14[address] [facility] [address] [place] [address] Personal history of other diseases of the circulatory system; Atherosclerotic heart disease of [place] coronary artery without angina pectoris Social History Tobacco Use Types Packs/Day Years [...] Date Mendez rded Speak language other than [place] at home Not on file 02/27/2023 Want [...] as of this encounter Visit Diagnoses Diagnosis Personal history of other diseases of the circulatory system Atherosclerotic heart disease of [place] coronary artery without angina pectoris documented in this encounter Care Teams Cafeteria Helper Relationship Specialty Start Date End Date Linh Doty, DO 8 [facility] [address] [place] [address] PCP - General Family Medicine 11/04/22 Lizzie Alves PA-C 1401 [facility], [facility] [address] [place] [address] Hospitalist Cardiology 05/27/23 Kaushik Mariscal MD [address] [facility] [address] [place] [address] Admission Discharge Rn Electrophysiology 11/18/23 documented as of this encounter
--- OUTSIDE RECORDS SUMMARY | 2024-07-27 14:22 | XMS_ITS | Encounter Summary ---
Author Organization [employer] [facility] Init iatives Address [address] [place] [address] Care Team Providers Care Technology Program Manager Name Role Phone Linh Doty DO Primary Care Provider [phone] Lizzie Alves PA-C Unavailable [phone] Kaushik Mariscal MD Unavailable Encounter Details Date Type Department Care Team (Late st Contact Info) Description 07/02/2021 Transcribed Document [facility] Family Medicine [address] [place] [address] ProviderChad MD [address] [place] [address] Social History Tobacco Use Types Packs/Day Years Used Date Smoking Tobacco: Never Assessed Comments Unknown Sex and Gender Information Value Date Recorded Sex Assigned at Not on file Legal Sex Female 3:27 PM CDT Gender Identity Not on file Sexual Orientation Not on file documented as of this encounter Miscellaneous Notes * Cerner Conversion Note - Chad Merchant MD - 07/02/2021 1:09 PM CDT On Going Discharge Planning Entered On: 07/02/2021 13:11 EDT Performed On: 07/02/2021 13:09 EDT by ERNIE PAYAN, RN-Time Study StatisticianFrog Or Oyster Farmworker Progress Note Discharge Arrangements : Patient Post-Acute Information Patient Name: GAGAN SEALS Gender: Female : 63 Age: 55 Years No Post-Acute Placement(s) Listed No Post-Acute Service(s) Listed No [place] Referral(s) Listed Patient Discharge Goal : Home ERNIE PAYAN, RN-Time Study Statistician - 07/02/2021 13:09 EDT Narrative Progress Note Narrative Progress Note : received call from Dr grace Gonzalez office. she spoke with ms. seals to schedule follow up appt. pt declined to schedule appt as will see Jimenez next week. ERNIE PAYAN, RN-Time Study Statistician - 07/02/2021 13:09 EDT Electronically signed by [facility] Conversion Embedded Software Architect Cerner at 05/27/2022 9:11 PM CDT documented in this encounter Plan of Treatment Not on file documented as of this encounter Visit Diagnoses Not on filedocumented in this encounter Care Teams Technology Program Manager Relationship Specialty Start Date End Date Linh Doty, DO 8 [facility] [address] [place] [address] PCP - General Family Medicine 11/04/22 Lizzie Alves PA-C 1401 [facility], [facility] [address] [place] [address] Hospitalist Cardiology 05/27/23 Kaushki Mariscal MD 1401 [facility] [address] [place] [address] Cooker Mechanic Electrophysiology 11/18/23 documented as of this encounter
--- OUTSIDE RECORDS SUMMARY | 2024-07-27 14:22 | XMS_ITS | Encounter Summary ---
Author Organization [facility] Init iatives Address [address] [place] [address] Care Team Providers Care Virtualization Engineer Name Role Phone Linh Doty DO Primary Care Provider [phone] Lizzie Alves PA-C Unavailable [phone] Kaushik Mariscal MD Unavailable Encounter Details Date Type Department Care Team (Late st Contact Info) Description 07/25/2021 Transcribed Document [facility] [place] [facility] [place] [address] ProviderChad MD [address] [place] [address] Social History Tobacco Use Types Packs/Day Years Used Date Smoking Tobacco: Never Assessed Comments Unknown Sex and Gender Information Value Date Recorded Sex Assigned at Not on file Legal Sex Female 3:27 PM CDT Gender Identity Not on file Sexual Orientation Not on file documented as of this encounter Miscellaneous Notes * Cerner Conversion Note - Chad Merchant MD - 07/25/2021 2:31 PM CDT Patient Education Materials Follows: GUIDELINES FOR A HEART HEALTHY DIET TO [...] white, wheat or rye breads, plain breadsticks, amharic muffins, hamburger buns, plain bagels, plain cake doughnuts, tru breads, baked flours or corn tortillas, crackers including gerber, animal, saltine, oyster and matzo, snacks including unsalted pretzels, popcorn, baked tortilla chips or potato chips. Homemade breads (biscuits, muffins, cornbread, rolls, pancakes and congolese toast) should be made with oils low [...] choose prepared products such as muffins, frozen congolese toast and waffles, biscuits, croissants and other [...] 5 large olives is considered a serving. --Oriental oil and peanut oil are higher in [...] diet, please call the registered dietitians at [facility] at or . We will be happy [...] sugar-free varieties to be more thirst quenching. --[place] your teeth. --Chill mouthwash and gargle for [...] and not your mouth. --Avoid mid-day heat. Hematology Hematoma A hematoma is a collection of [...] Leave the ice on for 20 minutes, 2?3 times a day for the first two [...] source. ? Leave the heat on for 20?30 minutes. ? Remove the heat if your [...] by your doctor. General instructions ??? Take utfn-zzx-fkualfz and prescription medicines only as told by [...] provider. Document Revised: 07/01/2018 Document Reviewed: 07/01/2018 [employer] Patient Education ? 2020 [employer]. Infectious Disease Wound Infection A wound infection happens when [...] antibiotic medicine. ? The infection should improve 24?48 hours after you start antibiotics. ? After 24?48 hours, redness around the wound should stop spreading. The wound should also be less painful. Follow these instructions at home: Medicines ??? Take or apply gpdt-isi-qfxgynh and prescription medicines only as told by [...] cannot use soap and water, use hand laboratory associate. ? Change your bandage as told by [...] does not start to get better in 24?48 hours, or your symptoms get worse. ??? Keep all follow-up visits as told by your doctor. This is important. This information is not intended to replace advice given to you by your health care provider. Make sure you discuss any questions you have with your health care provider. Document Revised: 09/07/2018 Document Reviewed: 09/07/2018 Elsevier Patient Education ? 2020 [employer]. Infection Prevention in the Home If you [...] Supplies needed: ??? Soap. ??? Alcohol-based hand laboratory associate. ??? Standard cleaning products. ??? Disinfectants, such [...] water are not available, use alcohol-based hand laboratory associate. ??? Avoid touching your face, mouth, nose, [...] week. ??? Keep your refrigerator set at 40?F (4?C) or less, and set your freezer at 0?F (?18?C) or less. ??? Keep work surfaces clean. Disinfect them regularly. ??? Wash your dishes in hot, soapy water. Air-dry your dishes or use a insurance account specialist. ??? Do not share dishes or eating [...] certain germs and not others. Read the nailer machine's instructions or read online resources to determine [...] minutes after each use, or according to nailer machine's instructions. ??? Wash reusable cleaning cloths and [...] water are not available, use alcohol-based hand laboratory associate. In general: ??? Stay home except to [...] for Professionals in Infection Control and Epidemiology: professionals.site.apic.org/brkgrghz-zv-ogyd/xds-zllxqewpgf-pdrvyji/home/ Summary ??? It is important to know [...] provider. Document Revised: 04/02/2020 Document Reviewed: 04/22/2019 [employer] Patient Education ? 2020 [employer]. Pharmacology Antibiotic Medicine, Adult Antibiotic medicines treat infections [...] Follow these instructions at home: ??? Take qpnk-pfh-jcetdjc and prescription medicines as told by your [...] provider. Document Revised: 11/15/2019 Document Reviewed: 11/15/2019 ElseEviti Patient Education ? 2020 [employer]. Pulmonary Medicine Steps to Quit Smoking Smoking tobacco is [...] a prescription and some you can purchase ppdt-kxh-wdqdwld. Medicines may have nicotine in them to [...] for support and encouragement. Call telephone quitlines (5-882-OYYY-NOW), reach out to support groups, or work [...] symptoms. These symptoms are usually most noticeable 2?3 days after quitting, but they usually do not last for more than 2?3 weeks. You may experience these symptoms: ??? [...] Week 3 and afterward After the first 2?3 weeks of quitting, you may start to [...] provider. Document Revised: 10/21/2019 Document Reviewed: 04/16/2019 [employer] Patient Education ? 2020 [employer]. Steps to Quit Smoking Smoking tobacco is [...] a prescription, and some you can buy klfu-aup-zgoffyb. Some medicines may contain a drug called [...] encourage you. ??? Call a phone quitline (-NOW), reach out to support groups, or work [...] quitting tobacco. These problems are very bad 2?3 days after you quit, but they do not often last for more than 2?3 weeks. You may get these symptoms: ??? [...] Week 3 and afterward After the first 2?3 weeks of quitting, you may start to [...] provider. Document Revised: 10/21/2019 Document Reviewed: 04/16/2019 Elsevier Patient Education ? 2020 [employer]. documented in this encounter Plan of Treatment Not on file documented as of this encounter Visit Diagnoses Not on filedocumented in this encounter Care Teams Virtualization Engineer Relationship Specialty Start Date End Date Linh Doty, DO 8 [facility] [address] [place] [address] PCP - General Family Medicine 11/04/22 Lizzie Alves PA-C 1401 [facility], [facility] [address] [place] [address] Hospitalist Cardiology 05/27/23 Kaushik Mariscal MD 1401 [facility] [address] [place] [address] Cryptographic Vulnerability Analyst Electrophysiology 11/18/23 documented as of this encounter
--- OUTSIDE RECORDS SUMMARY | 2024-07-27 14:22 | XMS_ITS | Clinical Summary ---
Author Organization [employer] Address [address] [place] [address] Care Team Providers Care Car Storer Name Role Phone Linh Doty DO Primary Care Provider [phone] Lizzie Alves PA-C Unavailable [phone] Kaushik Mariscal MD Unavailable Allergies No known active allergies Medications pantoprazole (PROTONIX) 40 MG tabletIndications :Gastro-esophagea l reflux disease without esophagitis TAKE ONE TABLET BY MOUTH EVERY DAY 30 tablet 6 3 Active folic acid (FOLVITE) 1 MG tablet Take 1 tablet (1,000 mcg total) by mouth daily. 3 Active gabapentin (NEURONTIN) 600 MG tablet Take 1 tablet (600 mg total) by mouth. 3 Active HYDROcodone-aceta minophen (NORCO 5-325) 5-325 mg per tablet Take 1 tablet by mouth every 8 (eight) hours as needed. 3 Active lisinopriL (PRINIVIL,ZESTRIL ) 10 MG tablet Take 1 tablet (10 mg total) by mouth daily. 3 Active topiramate (TOPAMAX) 25 MG tablet SMARTSI Tablet(s) By Mouth Every Evening 3 Active montelukast (SINGULAIR) 10 mg tablet SMARTSI Tablet(s) By Mouth Every Evening 3 Active Eliquis 5 MG tabletIndications :Acute coronary thrombosis not resulting in myocardial infarction (HCC) TAKE ONE TABLET BY MOUTH TWICE DAILY 180 tablet 1 4 Active furosemide (LASIX) 20 MG tabletIndications :Personal history of other diseases of the circulatory system TAKE ONE TABLET BY MOUTH EVERY DAY IN THE MORNING 90 tablet 1 4 Active potassium chloride (MICRO-K) 10 mEq CR capsule TAKE ONE CAPSULE BY MOUTH EVERY DAY IN THE MORNING 90 capsule 1 4 Active clopidogreL (PLAVIX) 75 mg tabletIndications :Atherosclerotic heart disease of [place] coronary artery without angina pectoris TAKE ONE TABLET BY MOUTH EVERY DAY 90 tablet 1 4 Active metoprolol succinate (TOPROL-XL) 50 MG 24 hr tabletIndications :Essential (primary) hypertension TAKE ONE TABLET BY MOUTH EVERY EVENING 90 tablet 32 5 Active Active Problems Problem Noted Date Diagnosed Date Encounter for adjustment or management of cardia c device 02/24/2024 Encounter for adjustment or management of cardia c device 02/23/2024 Chronic combined systolic an d diastolic congestive heart failure 06/22/2023 Venous insufficiency of both lower extremities 0 05/28/2023 Ischemic cardiomyopathy with implantable cardioverter-defibrillator (ICD) 05/28/2023 Left ventricular thrombus 05/28/2023 Chronic respiratory failure 05/28/2023 Resolved Problems Problem Noted Date Diagnosed Date Resolved Date HFrEF (heart failure with re duced ejection fraction) 05/28/2023 06/22/2023 Encounters Date Type Department Care Team Description 07/15/2024 5:00 AM EDT Clinical Support [facility] Electrophysiology [address] [place] [phone] Louise Gottlieb MD Encounter for adjustment or management of cardiac device (Primary Dx); Ischemic cardiomyopathy with implantable cardioverter-defibrill ator (ICD); Chronic combined systolic and diastolic congestive heart failure (HCC) 07/11/2024 6:00 AM EDT Clinical Support [facility] Electrophysiology [address] [place] [phone] Louise Gottlieb MD Encounter for adjustment or management of cardiac device (Primary Dx); Ischemic cardiomyopathy with implantable cardioverter-defibrill ator (ICD); Chronic combined systolic and diastolic congestive heart failure (HCC) 06/13/2024 6:00 AM EDT Clinical Support [facility] Electrophysiology [address] [place] [phone] Kaushik Mariscal MD Encounter for adjustment or management of cardiac device (Primary Dx); Ischemic cardiomyopathy with implantable cardioverter-defibrill ator (ICD); Chronic combined systolic and diastolic congestive heart failure (HCC) 05/16/2024 8:00 PM EDT Clinical Support [facility] Electrophysiology [address] [place] [phone] Kaushik Mariscal MD Encounter for adjustment or management of cardiac device (Primary Dx); Ischemic cardiomyopathy with implantable cardioverter-defibrill ator (ICD); Chronic combined systolic and diastolic congestive heart failure (HCC) from Last 3 Months Social History Tobacco Use Types Packs/Day Years Used Date Smoking Tobacco: Some Days Cigarettes Passive Smoke Exposure: Never Smokeless Tobacco: Never Tobacco Cessation:Ready to Q uit: Not Asked; Counseling Given: Not Answered Alcohol Use Standard Drinks/Week Comments Not Currently [...] Sign Reading Time Taken Comments Blood Pressure 118/80 05/27/2023 2:17 PM EDT Pulse 82 05/27/2023 2:17 PM EDT Temperature - - Respiratory Rate - - Oxygen Saturation 92% 11/04/2022 2:01 PM EDT Inhaled Oxygen Concentration - - Weight 78 kg (172 lb) 05/06/2023 1:59 PM EDT Height 170.2 cm (5' 7 ) 05/27/2023 2:17 PM EDT Body Mass Index 27.76 05/06/2023 1:59 PM EDT Plan of Treatment Health Maintenance Due Date Last Done Comments Medicare Initial AWV G0438 CT Colonography 1965 Colonoscopy 1965 Colorectal Cancer Screening 1965 FOBT/FIT 1965 Fit-DNA (Cologuard) 1965 Sigmoidoscopy 1965 Depression Screening (12+) 1976 HIV Screening 07/28/1979 Hepatitis C Screening 1982 Pneumococcal 50+ years (1 of 2 - PCV) 07/28/1983 Pap Smear 1985 Breast Cancer Screening 2004 Lipid Panel 2009 Shingles Vaccine (Zoster) (2 of 2) 04/23/20202020 COVID-19 VACCINE (3 - season) 2023, 04/28/2020 Tobacco Cessation Counseling and Screening (12+) 05/27/2024 05/28/2023 DTAP/TDAP/TD VACCINES (2 - Td or Tdap) 01/29/2031 Influenza Vaccine Completed 12/15/2023, 01/29/2021 Medical Devices Implanted Type Area Child Care Associate Device Identifier Shelf Expiration Date Model / Serial / Lot Icd-08/26/2021 Implanted:08/26 (Quantity not on file) ICD [employer] NT 500Q / [id number] / Insurance [facility] AD[facility] Care Teams Car Storer Relationship Specialty Start Date End Date Linh Doty, DO [address] [facility] [address] [place] [address] PCP - General Family Medicine 11/04/22 Lizzie Alves PA-C [address] [facility] [address] [place] [address] Hospitalist Cardiology 05/27/23 Kaushik Mariscal MD [address] [facility] [address] [place] [address] Marina Porter Electrophysiology 11/18/23
--- OUTSIDE RECORDS SUMMARY | 2024-07-27 14:23 | XMS_ITS | Encounter Summary ---
Author Organization [employer] [facility] [employer] Address [address] [place] [address] Care Team Providers Care Osteopathic Physician Name Role Phone Linh Doty DO Primary Care Provider [phone] Lizzie Alves PA-C Unavailable [phone] Kaushik Mariscal MD Unavailable Encounter Details Date Type Department Care Team (Late st Contact Info) Description 07/20/2021 Transcribed Document [facility] Radiology [address] [phone] Yanick Torres MD [address] [place] [address] [address] [place] [address] Social History Tobacco Use Types Packs/Day Years Used Date Smoking Tobacco: Never Assessed Comments Unknown Sex and Gender Information Value Date Recorded Sex Assigned at Not on file Legal Sex Female 3:27 PM CDT Gender Identity Not on file Sexual Orientation Not on file documented as of this encounter Miscellaneous Notes * Cerner Conversion Note - Yanick Torres MD - 07/20/2021 12:07 PM EDT Patient: GAGAN MENDOZA Age: 55 years Sex: Female : 1965 Associated Diagnoses: None Author: YANICK TORRES MD-INT Subjective Primary care physician Beryl Doty Date of admission 07/16/2021 Chief complaint AICD site hematoma History of present illness Ms. Cordray returned to ED on 07/16/2021 for IV [...] no worrisome findings Consultations requested -Cardiology service -Electrophysiology services -Infectious disease service Procedures and work-up -Chest x-ray showed no acute cardiopulmonary findings -Blood cultures negative to date -TTE 2 ml's of Optison ultrasound enhancing agent [...] disease. No masses or thrombi are seen. Hospital course 07/16 patient seen and examined history and physical done 07/17 patient seen and examined still in the ED awaiting bed placement remains on antibiotic support Hemoglobin hematocrit continue to be monitored closely, cardiology on board, infectious disease on board 07/18 patient seen and examined she is resting during my rounds platelets drifting down no fever or leukocytosis remains on antibiotics per ID 07/19 patient seen and examined today offers no complaints hemodynamically stable remains on antibiotics I discussed this case with electrophysiology MD yesterday recommends not restarting antiplatelets or anticoagulation for now 07/20 patient seen and examined this morning offers no complaints remains on antibiotics under the guidance of ID service no fever Past medical history ischemic cardiomyopathy status post [...] available Current medications: (Selected) Inpatient Medications Ordered Cathflo Activase 1 mg + syringe 1 Each: 1 mg, 0 mL/Hr, IV Push, 1-Time, PRN: Other (See Comment) Colace: 100 mg, Oral, BID, PRN: Constipation DAPTOmycin + Sodium Chloride 0.9% intravenous solution 50 mL: 400 mg, 8 mL, 116 mL/Hr, IV Piggyback, [id number] Florastor: 250 mg, Oral, BID Lasix: 20 mg, Oral, Daily MiraLax: 17 Gram, Oral, Daily, PRN: Constipation Normal Saline Flush: 10 mL, IntraCATHeter, Q12H Rocephin: 2 Gram, 100 mL/Hr, IV Piggyback, [id number] Roxicodone: 5 mg, Oral, Q4H, PRN: Pain (Moderate 4-6) Tylenol: 650 mg, Oral, Q4H, PRN: Pain (Mild 1-3) Zofran: 4 mg, IV Push, Q4H, PRN: Nausea carvedilol: 12.5 mg, Oral, BID ergocalciferol: 50,000 [...] chloride extended release: 10 mEq, Oral, Daily sodium chloride 0.9% injectable solution: 10 mL, IV Push, Q8H topiramate: 25 mg, Oral, At Bedtime Prescriptions Prescribed nicotine 21 mg/24 hr transdermal film, extended release: 1 Patch, TransDermal, Daily, for 14 Day(s), 14 Patch, 0 Refill(s) Documented Medications Documented Florastor 250 mg oral capsule: 1 Cap, Oral, BID, 0 Refill(s) Potassium Chloride (Eqv-K-Tab) 10 mEq oral tablet, extended release: 1 Tab, Oral, Daily, 0 Refill(s) Rocephin: 2 Gram, IV Piggyback, [id number], 0 Refill(s) Vitamin D2 1.25 mg (50,000 intl units) oral capsule: 1 Cap, Oral, Weekly, 0 Refill(s) acetaminophen-HYDROcodone 325 mg-5 mg oral tablet: 1 Tab, Oral, Q8H, PRN: for pain, 0 Refill(s) carvedilol 12.5 mg oral tablet: 1 Tab, Oral, BID, 180 Tab, 0 Refill(s) fluticasone 50 mcg/inh nasal spray: 2 [place], Nasal, Daily, PRN: Nasal Congestion, 16 Gram, [...] Tab, Oral, Daily, 30 Tab, 0 Refill(s) topiramate 25 mg oral tablet: 1 Tab, Oral, At Bedtime, 0 Refill(s), Home Medications (14) Active acetaminophen-HYDROcodone 325 mg-5 mg oral tablet 1 Tab, PRN, Oral, Q8H carvedilol 12.5 mg oral tablet 12.5 mg = 1 Tab, Oral, BID Florastor 250 mg oral capsule 250 mg = 1 Cap, Oral, BID fluticasone 50 mcg/inh nasal spray 2 [place], PRN, Nasal, Daily folic acid 1 mg [...] Oral, Daily Rocephin 2 Gram, IV Piggyback, [id number] topiramate 25 mg oral tablet 25 mg = 1 Tab, Oral, At Bedtime Vitamin D2 1.25 mg (50,000 intl units) oral capsule 50,000 Int Units = 1 Cap, Oral, Weekly , Medications (23) Active Scheduled: (15) #NaCl 0.9% *FLUSH* inj 10 mL 10 mL, IV Push, Q8H #NaCl 0.9% *FLUSH* inj 10 mL 10 mL, IntraCATHeter, Q12H carvedilol 12.5 mg tab 12.5 mg 1 Tab, Oral, BID cefTRIAXone 2 Gram, IV Piggyback, [id number] DAPTOmycin + NaCl 0.9% 50 mL 400 mg 8 mL, IV Piggyback, [id number] ergocalciferol 50,000 unit cap 50,000 Units 1 [...] tab 40 mg 1 Tab, Oral, Daily potassium chloride CR 10 mEq tab 10 mEq 1 Tab, Oral, Daily saccharomyces boulardii 250 mg cap 250 mg 1 Cap, Oral, BID topiramate 25 mg tab 25 mg 1 Tab, Oral, At Bedtime Continuous: (0) PRN: (8) acetaminophen 325 mg tab 650 mg 2 Tab, Oral, Q4H alteplase 1 mg + syringe 1 Each 1 mg, IV Push, 1-Time docusate sodium 100 mg cap 100 mg [...] At risk for sleep apnea / IMO [id number] / Confirmed High cholesterol / SNOMED CT 79497520 / Confirmed Canceled: At risk for sleep apnea / IMO [id number] Canceled: COPD (chronic obstructive pulmonary disease) / SNOMED CT 54194258 Canceled: HTN (hypertension) / SNOMED CT 7070941957, Active Problems (12) Arteriosclerosis At risk for sleep apnea Cardiomyopathy Chronic CHF Current smoker Gout High cholesterol History of CO (myocardial infarction) Intermittent claudication Pacemaker PAD (peripheral artery disease) Stented coronary artery Objective VS/Measurements Vitals Signs (last 24 hrs) Last Charted Minimum Maximum Temp 97.8 (JUL 20 03:09) 97.8 (JUL 20 03:09) 98 (JUL 19 15:00) Mon HR 78 (JUL 20 10:18) 77 (JUL 20 03:09) 81 (JUL 19 16:48) Resp Rate 16 (JUL 19 16:00) 16 (JUL 19 16:00) 16 (JUL 19 16:00) SBP 98 (JUL 20 10:18) 97 (JUL 20 03:09) 105 (JUL 19 22:32) DBP 60 (JUL 20 10:18) L 59 (JUL 20 03:09) 66 (JUL 19 16:48) MAP 71 (JUL 20 10:18) 71 (JUL 20 10:18) 78 (JUL 10 16:48) SpO2 L 91 (JUL 20 03:09) L 91 (JUL 20 03:09) 97 (JUL 19 16:48) General: No acute distress. Eye: Normal conjunctiva. Neck: No jugular venous distention. Respiratory: Lungs are clear to auscultation, Respirations are non-labored, Breath sounds are equal. Cardiovascular: Regular rhythm, No gallop, S1+ S2 No S3 or S4 [place].. Gastrointestinal: Soft, Non-tender, Non-distended, Normal bowel sounds. Genitourinary: No costovertebral angle tenderness. Integumentary: Warm, No rash, She has thick dressing in place left upper chest over AICD site distally left arm she has intact neurovascular status with easily palpable radial pulse. Neurologic: Alert, Oriented, No focal deficits. Psychiatric: Cooperative, Appropriate mood & affect. Results Review No qualifying data available Impression and Plan Diagnosis -Status post AICD [...] plan was discussed with the patient 07/18 platelets drifting down will recheck CBC in the morning, unfortunately polycythemia persists may be related to tobacco abuse We will continue to monitor for fever and leukocytosis, will continue antibiotics under the guidance of infectious disease service Will continue cardiac monitoring, patient will need long-term antibiotics as recommended by infectious disease service Patient denies any major issues involving left AICD site this morning during my interview Plan was discussed with the patient, apparently Eliquis has been held my understanding are not around third week of June Currently Plavix has been held as well due to hematoma issue timing to resume Plavix defer to cardiology service I have discussed this case personally with electrophysiology MD today 07/19 I discussed this case with electrophysiology MD he recommends against restarting Eliquis and Plavix for now I will continue to monitor labs closely, discharge home once cleared by infectious disease cardiology and electrophysiology Per ID note IV antibiotics at home or local facility with daptomycin 400 mg IV daily, ceftriaxone 2 g IV daily until 08/15/2021. Check CBC, CMP, CRP, CPK weekly while on IV antibiotics. Weekly PICC dressing changes. Fax orders to [id number], c Hold rosuvastatin while on daptomycin to decrease risk of rhabdomyolysis. 07/20 continue present treatment as is, no orders placed today, discharge home once cleared by cardiology electrophysiology [...] on daptomycin to decrease risk of rhabdomyolysis. documented in this encounter Plan of Treatment Not on file documented as of this encounter Visit Diagnoses Not on filedocumented in this encounter Care Teams Osteopathic Physician Relationship Specialty Start Date End Date Linh Doty, DO [address] [facility] [address] [place] [address] PCP - General Family Medicine 11/04/22 Lizzie Alves PA-C [address] [facility] [address] [place] [address] Hospitalist Cardiology 05/27/23 Kaushik Mariscal MD [address] [facility] [address] [place] [address] Pharmacy Cashier Electrophysiology 11/18/23 documented as of this encounter
--- OUTSIDE RECORDS SUMMARY | 2024-07-27 14:23 | XMS_ITS | Encounter Summary ---
Author Organization [employer] [facility] Init iatives Address [address] [place] [address] Care Team Providers Care Fiberglass Tube Molder Name Role Phone Lalitha Linh Delilah DAVIS Primary Care Provider [phone] Lizzie Alves PA-C Unavailable [phone] Dion Mariscal MD Unavailable Encounter Details Date Type Department Care Team (Late st Contact Info) Description 07/22/2021 Transcribed Document [facility] Family Medicine [address] [place] [address] ProviderChad MD [address] [place] [address] Social History Tobacco Use Types Packs/Day Years Used Date Smoking Tobacco: Never Assessed Comments Unknown Sex and Gender Information Value Date Recorded Sex Assigned at Not on file Legal Sex Female 3:27 PM CDT Gender Identity Not on file Sexual Orientation Not on file documented as of this encounter Miscellaneous Notes * Cerner Conversion Note - Chad Merchant MD - 07/22/2021 9:42 AM CDT Patient: GAGAN MENDOZA Age: 55 years Sex: Female : 1965 Associated Diagnoses: None Author: DION MARISCAL MD-CAR Subjective NAD Health Status Allergies: Allergic Reactions (Selected) No Known Allergies, No qualifying data available Current medications: (Selected) Inpatient Medications Ordered Cathflo Activase 1 mg + syringe 1 Each: 1 mg, 0 mL/Hr, IV Push, 1-Time, PRN: Other (See Comment) Colace: 100 mg, Oral, BID, PRN: Constipation DAPTOmycin + Sodium Chloride 0.9% intravenous solution 50 mL: 400 mg, 8 mL, 116 mL/Hr, IV Piggyback, [id number] DuoNeb 0.5 mg-2.5 mg/3 mL inhalation solution: 3 mL, Nebulized Inhalation, Q8H Florastor: 250 mg, Oral, BID Lasix: 20 mg, Oral, Daily MiraLax: 17 Gram, Oral, Daily, PRN: Constipation Normal Saline Flush: 10 mL, IntraCATHeter, Q12H Rocephin: 2 Gram, 100 mL/Hr, IV Piggyback, [id number] Roxicodone: 5 mg, Oral, Q4H, PRN: Pain (Moderate 4-6) Tylenol: 650 mg, Oral, Q4H, PRN: Pain (Mild 1-3) Zofran: 4 mg, IV Push, Q4H, PRN: Nausea carvedilol: 12.5 mg, Oral, BID ergocalciferol: 50,000 Units, Oral, Weekly folic acid: 1 mg, Oral, Daily gabapentin: 600 mg, Oral, TID hydrALAZINE: 5 mg, IV Push, Q4H, PRN: Hypertension lisinopril: 5 mg, Oral, At Bedtime morphine: 2 mg, [...] 0 Refill(s) Rocephin: 2 Gram, IV Piggyback, [id number], 0 Refill(s) Vitamin D2 1.25 mg (50,000 intl units) oral capsule: 1 Cap, Oral, Weekly, 0 Refill(s) acetaminophen-HYDROcodone 325 mg-5 mg oral tablet: 1 Tab, Oral, Q8H, PRN: for pain, 0 Refill(s) carvedilol 12.5 mg oral tablet: 1 Tab, Oral, BID, 180 Tab, 0 Refill(s) fluticasone 50 mcg/inh nasal spray: 2 [place], Nasal, Daily, PRN: Nasal Congestion, 16 Gram, [...] BID fluticasone 50 mcg/inh nasal spray 2 [place], PRN, Nasal, Daily folic acid 1 mg [...] Oral, Daily Rocephin 2 Gram, IV Piggyback, [id number] topiramate 25 mg oral tablet 25 mg = 1 Tab, Oral, At Bedtime Vitamin D2 1.25 mg (50,000 intl units) oral capsule 50,000 Int Units = 1 Cap, Oral, Weekly , Medications (24) Active Scheduled: (16) #NaCl 0.9% *FLUSH* inj 10 mL 10 mL, IV Push, Q8H #NaCl 0.9% *FLUSH* inj 10 mL 10 mL, IntraCATHeter, Q12H albuterol-ipratropium inh 3 mL 3 mL, Nebulized Inhalation, Q8H carvedilol 12.5 mg tab 12.5 mg 1 Tab, Oral, BID cefTRIAXone 2 Gram, IV Piggyback, [id number] DAPTOmycin + NaCl 0.9% 50 mL 400 mg 8 mL, IV Piggyback, [id number] ergocalciferol 50,000 unit cap 50,000 Units 1 Cap, Oral, Weekly folic acid 1 mg tab 1 mg 1 Tab, Oral, Daily furosemide 20 mg tab 20 mg 1 Tab, Oral, Daily gabapentin 600 mg tab 600 mg 1 Tab, Oral, TID lisinopril 5 mg tab 5 mg 1 Tab, Oral, At Bedtime nicotine [...] All Problems High cholesterol / SNOMED CT 86189177 / Confirmed PAD (peripheral artery disease) / SNOMED CT 2435890335 / Confirmed Chronic CHF / SNOMED CT 952149281 / Confirmed Current smoker / SNOMED CT 351415179 / Confirmed Arteriosclerosis / SNOMED CT 442026007 / Confirmed Intermittent claudication / SNOMED CT 099981246 / Confirmed Cardiomyopathy / SNOMED CT 699421316 / Confirmed History of [place] (myocardial infarction) / SNOMED CT 1181658217 / Confirmed Pacemaker / SNOMED CT 9738315001 / Confirmed Stented coronary artery / SNOMED CT 6728281807 / Confirmed Gout / SNOMED CT 430964422 / Confirmed At risk for sleep apnea / IMO 03757509 / Confirmed Resolved: History of ventricular tachycardia / SNOMED CT 0537187078 ICD placed in past for arrythmia. Canceled: HTN (hypertension) / SNOMED CT 8443556611 Canceled: COPD (chronic obstructive pulmonary disease) / SNOMED CT 77777960 Canceled: At risk for sleep apnea / IMO 61035970 Canceled: History of ischemic cardiomyopathy / SNOMED CT 069966593 Canceled: Abdominal aortic stenosis / SNOMED CT 168147711 Canceled: Shortness of breath / SNOMED CT 496744404, Active Problems (12) Arteriosclerosis At risk for sleep apnea Cardiomyopathy Chronic CHF Current smoker Gout High cholesterol History of [place] (myocardial infarction) Intermittent claudication Pacemaker PAD (peripheral artery disease) Stented coronary artery Objective Intake and Output 24 hour intake, 24 hour output VS/Measurements Vitals Signs (last 24 hrs) Last Charted Minimum Maximum Temp 98 (JUL 22 06:09) 97 (JUL 22 03:03) 98 (JUL 21 18:36) Mon HR 78 (JUL 22 06:09) 70 (JUL 22 01:31) 90 (JUL 21 22:00) Resp Rate 18 (JUL 22 05:00) 16 (JUL 22:31) 18 (JUL 21 12:00) SBP 126 (JUL 22 05:00) 99 (JUL 21 11:15) 126 (JUL 22 05:00) DBP 70 (JUL 22 05:00) L 56 (JUL 21 12:00) 77 (JUL 21 18:36) MAP 80 (JUL 22 05:00) 69 (JUL 21 11:15) 88 (JUL 21 18:36) SpO2 95 (JUL 22 06:09) L 89 (JUL 21 11:15) 97 (JUL 22 03:03) Results Review Telemetry - SR General: Alert [...] Normal range of motion. Integumentary: Warm, Dry, [place]. PPM site stable. Bruising around site but soft. Draining old dark blood from pocket. Area cleaned and redressed. Neurologic: Alert, Oriented. Psychiatric: Cooperative, Appropriate mood & affect. Telemetry/ECG I personally reviewed the last 24 hour telemetry that show normal sinus rhythm Cardiac echo - 07/17/2021 Impression: Indication: Ischemic Cardiomyopathy I25.5 2 ml's of Optison ultrasound enhancing agent administered to enhance endocardial borders. Normal sized left ventricle. Mild left ventricular hypertrophy. Visually estimated ejection fraction 40% +/- 5%. *Stable LV thrombus noted. Seen on previous echo.* Abnormal left ventricular systolic function. Abnormal diastolic function with normal LV filling pressures (Grade 1 diastolic dysfunction). No hemodynamically significant valvular heart disease. No masses or thrombi are seen. Measurements Summary: LVEDd: 4.05 cm LVESd: 3.11 cm IVSEd: 1.01 cm AO Root:2.7 cm LVPWd: 1.46 cm Cardiac Markers (Current Encounter/Past 24 Hours) CK 35 Units/Liter 07/21/2021 04:48 CR Chest 1 Vw Portable (07/20/2021 15:10) Result: PORTABLE CHEST; 07/20/2021 11:39 AM HISTORY: Precordial chest pain.COMPARISON: July 16, 2021.FINDINGS: The heart is stable in size. The lung isaacs demonstrate nosignificant interval change in the diffuse interstitial changes. Thereis no pneumothorax. The support devices are in good position. A newright PICC line terminates centrally.IMPRESSION: There has been no significant interval change.Continued follow-up recommended.Images reviewed, interpreted, and dictated by Noel Jones MD Impression and Plan IMPRESSION: *gen change 07/01/2021 draining of hematoma at pocket *ICM s/p single chamber ICD implanted 07/2011 and gen change 07/01/2021 (SJM) *hx LV apical thrombus was on Eliquis - being held currently *CAD - hx JH to LAD (2007); occluded RCA at ostium; patent LAD stent (2011 *hx VT *HTN *HLD *PAD *Ongoing tobacco abuse PLAN; 07/22/2021 PPM site draining old dark blood today. Area cleaned and redressed. Discussed with Dr. Hoffman plan for extraction on Thursday07/24/2021. 07/19/2021 PPM site stable. old bruising at site. No further draining or swelling at site. Labs OK. Will order SCUDS while patient in bed. plan discharge next week, do not give any blood thinner 07/18/2021 PPM pocket stable. No further swelling. [...] sent from clinic to be admitted by [facility] physician group for IV antibiotics. Will request blood cultures, consult ID, further plans to follow. documented in this encounter Plan of Treatment Not on file documented as of this encounter Visit Diagnoses Not on filedocumented in this encounter Care Teams Fiberglass Tube Molder Relationship Specialty Start Date End Date Linh Doty, [address] [place] [address] PCP - General Family Medicine 11/04/22 Lizzie Alves PA-C [address], [facility] [address] [place] [address] Hospitalist Cardiology 05/27/23 Dion Mariscal MD [address] [facility] [place] [address] B2B Sales Manager Electrophysiology 11/18/23 documented as of this encounter
--- OUTSIDE RECORDS SUMMARY | 2024-07-27 14:23 | XMS_ITS | Encounter Summary ---
Author Organization [employer] [facility] Init iatives Address [address] [place] [address] Care Team Providers Care Senior Php Software Developer Name Role Phone Linh Doty DO Primary Care Provider [phone] Lizzie Alves PA-C Unavailable [phone] Kaushik Mariscal MD Unavailable Encounter Details Date Type Department Care Team (Late st Contact Info) Description 07/22/2021 Transcribed Document [facility] Family Medicine [address] [place] [address] ProviderChad MD [address] [place] [address] Social History Tobacco Use Types Packs/Day Years Used Date Smoking Tobacco: Never Assessed Comments Unknown Sex and Gender Information Value Date Recorded Sex Assigned at Not on file Legal Sex Female 3:27 PM CDT Gender Identity Not on file Sexual Orientation Not on file documented as of this encounter Miscellaneous Notes * Cerner Conversion Note - Chad Merchant MD - 07/22/2021 11:21 AM CDT On Going Discharge Planning Entered On: 07/22/2021 11:22 EDT Performed On: 07/22/2021 11:21 EDT by Mayra Vann Automotive Worker Foreman Rn Care Management Progress Note Discharge Arrangements [...] Attend Multidisciplinary Rounds? : Yes Mayra Vann, Automotive Worker Foreman Rn - 07/22/2021 11:21 EDT Narrative Progress Note Narrative Progress Note : hd 6 elos 5 low rar patient has home abx arranged with [facility], planned for dc today however patient now to have AICD removed on 07/24 dcp- home ?iv abx after aicd removal Historical Progress Note : hd 3 elos 5 low rar patient is set up with [facility], [facility] to teach patient abx administration saturday 07/22. Per EP, plan to dc patient saturday 07/22. [place] for HH. Mayra Vann, Automotive Worker Foreman Rn - 07/19/21 13:36:36 hd 2 low rar patient has orders from ID r/t iv abx and picc care but patient has no orders for PICC placement at this time, CM has reached out to ID. home abx orders sent to [facility]. patient will also need hh dcp- home with hh and iv abx Mayra Vann, Automotive Worker Foreman Rn - 07/18/21 16:10:37 Mayra Vann Automotive Worker Foreman Rn - 07/22/2021 11:21 EDT documented in this encounter Plan of Treatment Not on file documented as of this encounter Visit Diagnoses Not on filedocumented in this encounter Care Teams Senior Php Software Developer Relationship Specialty Start Date End Date Linh Doty, [address] [facility] [address] [place] [address] PCP - General Family Medicine 11/04/22 Lizzie Alves PA-C [address], [facility] [address] [place] [address] Hospitalist Cardiology 05/27/23 Kaushik Mariscal MD [facility] [place] [address] Garment Examiner Electrophysiology 11/18/23 documented as of this encounter
--- OUTSIDE RECORDS SUMMARY | 2024-07-27 14:23 | XMS_ITS | Referral Summary ---
Author Organization [employer] [facility] Init iatives Address [address] [place] [address] Care Team Providers Care Philosophy Professor Name Role Phone Linh Doty DO Primary Care Provider [phone] Lizzie Alves PA-C Unavailable [phone] Kaushik Mariscal MD Unavailable Encounters Date Type Department Care Team Description 07/15/2024 5:00 AM EDT Clinical Support [facility] Electrophysiology [address] [place] [phone] Louise Gottlieb MD Encounter for adjustment or management of cardiac device (Primary Dx); Ischemic cardiomyopathy with implantable cardioverter-defibrill ator (ICD); Chronic combined systolic and diastolic congestive heart failure (HCC) 07/11/2024 6:00 AM EDT Clinical Support [facility] Electrophysiology [address] [place] [phone] Louise Gottlieb MD Encounter for adjustment or management of cardiac device (Primary Dx); Ischemic cardiomyopathy with implantable cardioverter-defibrill ator (ICD); Chronic combined systolic and diastolic congestive heart failure (HCC) 06/13/2024 6:00 AM EDT Clinical Support [facility] Electrophysiology [address] [place] [address] Kaushik Mariscal MD Encounter for adjustment or management of cardiac device (Primary Dx); Ischemic cardiomyopathy with implantable cardioverter-defibrill ator (ICD); Chronic combined systolic and diastolic congestive heart failure (HCC) 05/16/2024 8:00 PM EDT Clinical Support [facility] Electrophysiology [address] [place] [address] Kaushik Mariscal MD Encounter for adjustment or management of cardiac device (Primary Dx); Ischemic cardiomyopathy with implantable cardioverter-defibrill ator (ICD); Chronic combined systolic and diastolic congestive heart failure (HCC) from Last 3 Months Allergies No known active allergies Medications pantoprazole [...] 75 mg tabletIndications :Atherosclerotic heart disease of [place] coronary artery without angina pectoris TAKE ONE [...] with re duced ejection fraction) 05/28/2023 06/22/2023 Social History Tobacco Use Types Packs/Day Years [...] Date Mendez rded Speak language other than Congolese at home Not on file 02/27/2023 Want [...] 05/06/2023 1:59 PM EDT Plan of Treatment Not on file Medical Devices Implanted Type Area Gasser Machine Operator Device Identifier Shelf Expiration Date Model / Serial / Lot Icd-08/26/2021 Implanted:08/26 (Quantity not on file) ICD [employer] NT 500Q / [id number] / Insurance [facility] ADV Care Teams Philosophy Professor Relationship Specialty Start Date End Date Linh Doty, [address] [place] [address] PCP - General Family Medicine 11/04/22 Lizzie Alves PA-C [address], [facility] [address] [place] [address] Hospitalist Cardiology 05/27/23 [place] [address] [place] [address] [place] [address] Bottle Tester Electrophysiology 11/18/23
--- OUTSIDE RECORDS SUMMARY | 2024-07-27 14:23 | XMS_ITS | Encounter Summary ---
Author Organization [employer] [facility] Init iatives Address [address] [place] [address] Care Team Providers Care Pai Gow Dealer Name Role Phone Linh Doty DO Primary Care Provider [phone] Lizzie Alves PA-C Unavailable [phone] Kaushik Mariscal MD Unavailable Encounter Details Date Type Department Care Team (Late st Contact Info) Description 07/18/2021 Transcribed Document [facility] Family Medicine [address] [place] [address] ProviderChad MD [address] [place] [address] Social History Tobacco Use Types Packs/Day Years Used Date Smoking Tobacco: Never Assessed Comments Unknown Sex and Gender Information Value Date Recorded Sex Assigned at Not on file Legal Sex Female 3:27 PM CDT Gender Identity Not on file Sexual Orientation Not on file documented as of this encounter Miscellaneous Notes * Cerner Conversion Note - Chad Merchant MD - 07/18/2021 11:11 AM CDT Patient: GAGAN MENDOZA Age: 55 [...] with bloody drainage. Patient was admitted to [facility] on 07/16/2021. Post generator change, patient required [...] Drainage decreased from ICD site. Pain controlled. Review of Systems Constitutional: Weakness, No fever, [...] m - 1,000 mg, IV Piggyback, Inj, [id number], infuse over 1 Hour(s) Cardiovascular carvedilol - 12.5 mg, Oral, Tab, BID, Routine furosemide (Lasix) - 20 mg, Oral, Tab, Daily lisinopril - 20 mg, Oral, Tab, At Bedtime, Routine rosuvastatin - 10 mg, Oral, Tab, At Bedtime, Routine GI ondansetron (Zofran) - 4 mg, IV Push, Inj, Q4H, PRN for Nausea, Routine pantoprazole - 40 mg, Oral, EC Tab, Daily, Routine docusate (Colace) - 100 mg, Oral, Cap, BID, PRN for Constipation, Routine magnesium sulfate - 2 Gram 50 mL, IV Piggyback, Inj, 1-Time, NOW polyethylene glycol 3350 (MiraLax) - 17 Gram, Oral, Powder, Daily, PRN for Constipation, Routine saccharomyces boulardii lyo (Florastor) - 250 mg, Oral, Cap, BID, Routine Neuro gabapentin - 600 mg, Oral, Tab, TID, Routine magnesium sulfate - 2 Gram 50 mL, IV Piggyback, Inj, 1-Time, NOW *Duplicate* topiramate - 25 mg, Oral, Tab, At [...] - 1 mg, Oral, Tab, Daily, Routine magnesium sulfate - 2 Gram 50 mL, IV Piggyback, Inj, 1-Time, NOW *Duplicate* potassium chloride (potassium chloride 10 mEq oral tablet, e - 40 mEq 4 Tab, Oral, CR Tab, 1-Time, NOW potassium chloride (potassium chloride extended release) - 10 mEq, Oral, CR Tab, Daily, Routine sodium chloride (sodium chloride 0.9% injectable solution) - 10 mL, IV Push, Inj, Q8H Other nicotine (nicotine 21 mg/24 hr transdermal film, extended re - 1 Patch, TransDermal, Patch, Daily, Routine Undefined Medications hydrALAZINE - 5 mg, IV Push, Inj, Q4H, PRN for Hypertension, Routine Physical Examination VS/Measurements Vital Measurements 07/18/2021 1:00 EDT Oxygen Flow Rate 4 Liter/Min , Vitals Signs (last 24 hrs) Last Charted Minimum Maximum Temp 98.8 (JUL 18 02:15) 98.8 (JUL 18 02:15) 98.5 (JUL 17 19:13) Mon HR 79 (JUL 18 01:30) 76 (JUL 17 11:30) 96 (JUL 17 13:30) Resp Rate 18 (JUL 17 19:13) 16 (JUL 17 11:30) H 21 (JUL 17 13:30) SBP 102 (JUL 18:30) 96 (JUL 17 12:30) 111 (JUL 17 13:00) DBP 60 (JUL 18:30) L 59 (JUL 17 11:30) 67 (JUL 17 13:00) MAP 72 (JUL 18:30) 72 (JUL 18:30) 81 (JUL 17:00) SpO2 96 (JUL 18:00) L 88 (JUL 17 15:30) 96 (JUL 17 22:30) General: Alert and oriented, Moderate distress. Eye: Extraocular movements are intact, Normal conjunctiva. HENT: Normocephalic, Oral mucosa is moist. Neck: Supple, Non-tender, No jugular venous distention, No lymphadenopathy, No thyromegaly. Respiratory: Respirations are non-labored, Breath sounds are equal, Few crackles left base. Cardiovascular: Normal rate, No gallop, Normal peripheral perfusion. Gastrointestinal: Soft, Non-tender, Non-distended, Normal bowel sounds, No organomegaly. Lymphatics: No lymphadenopathy neck, axilla, groin. Musculoskeletal: Normal range of motion, Normal strength, No tenderness. Integumentary: Warm, Dry, [place], No pallor, No rash, ICD site left chest with no obvious drainage, bandage in place, and did not see the device. Neurologic: Alert, Oriented, No focal deficits, Normal deep tendon reflexes. Cognition and Speech: Oriented, Speech clear and coherent. Psychiatric: Cooperative, Appropriate mood & affect. Review / Management Results review: Labs (Last four charted values) WBC 9.6 (JUL 18) 8.4 (JUL 08) 7.4 (JUL 16) HB H 16.2 (JUL 09) H 16.9 (JUL 08) H 17.9 (JUL 07) HCT H 52.1 (JUL 09) H 53.4 (JUL 08) H 56.1 (MADELEINE 07) Plt L 106 (MADELEINE 09) L 132 (MADELEINE 08) L 140 (MADELEINE 07) Na L 135 (MADELEINE 09) 138 (MADELEINE 08) 138 (MADELEINE 07) K 3.6 (MADELEINE 09) 3.8 (MADELEINE 08) 4.1 (MADELEINE 07) Cl 103 (MADELEINE 09) 107 (MADELEINE 08) 105 (MADELEINE 07) CO2 H 34 (MADELEINE 09) 32 (MADELEINE 08) 28 (MADELEINE 07) BUN 13 (MADELEINE 09) 10 (MADELEINE 08) 10 (MADELEINE 07) Cr 0.90 (MADELEINE 09) 0.80 (MADELEINE 08) 0.80 (MADELEINE 07) Glu R 99 (MADELEINE 09) 93 (MADELEINE 08) 97 (MADELEINE 07) Ca 10.0 (MADELEINE 09) 10.1 (MADELEINE 08) H 10.7 (MADELEINE 07) Lactic 1.0 (MADELEINE 07) PT 11.1 (MADELEINE 07) INR 1.0 (MADELEINE 07) AST 20 (MADELEINE 09) 23 (MADELEINE 08) 26 (MADELEINE 07) ALT 21 (MADELEINE 09) 21 (MADELEINE 08) 25 (MADELEINE 07) ALK P 114 (MADELEINE 09) 122 (MADELEINE 08) H 142 (MADELEINE 07) T Bili 0.6 (MADELEINE 09) 0.7 (MADELEINE 08) 0.6 (MADELEINE 07) PTN 6.8 (MADELEINE 09) 7.0 (MADELEINE 08) 7.6 (MADELEINE 07) ALB L 3.2 (MADELEINE 09) L 3.3 (MADELEINE 08) 3.5 (MADELEINE 07) , ACC: [id number] ORDER: Culture Wound and Stain DATE: 07/17/2021 08:34 SOURCE: Wound SITE: Chest L Reports Pre 07/18/2021 06:24 No growth GS 07/17/2021 14:09 No cells seen No organisms seen. == ACC: [id number] ORDER: Culture Blood DATE: 07/16/2021 12:39 SOURCE: Blood SITE: Reports Pre 07/17/2021 16:02 No growth at 1 day. Pre 07/17/2021 06:01 Culture less than 24 Hrs old == [facility]: [id number] ORDER: Culture Blood DATE: 07/16/2021 12:39 SOURCE: Blood SITE: Reports Pre 07/17/2021 16:02 No growth at 1 day. Pre 07/17/2021 06:01 Culture less than 24 Hrs old == . Procedure Critical Care - Code Management Assessment: Radiology Results (Last 48 hours) [id number] -- 07/16/2021 14:13 CR Chest 1 Vw [...] dictated by Dr. Noel Jones.Transcribed by Lobito Bo(Kelechi).I have personally viewed, interpreted and dictated the examination. Ihave read and agree with the above final transcribed report. . Impression and Plan 1. ICD site [...] with interstitial changes likely chronic per radiology.. Plan: 1. Diagnostically, continue to follow patient's physical exam, CBC, CMP, CRP, culture from ICD site, blood cultures x2, negative to date. 2. Therapeutically, change to daptomycin and ceftriaxone in anticipation for outpatient IV antibiotics to continue for 2 to 4 weeks. CPK 56. Please hold rosuvastatin while on daptomycin to decrease risk of rhabdomyolysis. 3. Continue local wound care. Critical that the device site is adequately healed. If continues to drain, at risk for loss of device. 4. Oxygen support therapy, 4 L/min nasal cannula on 07/17, 07/18. Plan has been discussed with patient including side effects of medications and line. At increased risk for side effects of abx and line, readmission, need for explant of device. D/w Isis Katz RN, cardiology. Case management orders: Please arrange for outpatient IV antibiotics at home or local facility with daptomycin 400 mg IV daily, ceftriaxone 2 g IV daily until 08/15/2021. Check CBC, CMP, CRP, CPK weekly while on IV antibiotics. Weekly PICC dressing changes. Fax orders to [phone], call [phone] with final arrangements. Hold rosuvastatin while on daptomycin to decrease risk of rhabdomyolysis. Arrange for follow-up with me in 1 week post discharge. documented in this encounter Plan of Treatment Not on file documented as of this encounter Visit Diagnoses Not on filedocumented in this encounter Care Teams Pai Gow Dealer Relationship Specialty Start Date End Date Linh Doty, DO [address] [address] PCP - General Family Medicine 11/04/22 Lizzie Alves PA-C [address] [facility], [facility] [address] [place] [address] Hospitalist Cardiology 05/27/23 Kaushik Mariscal MD [address] [facility] [address] [place] [address] Director Video Electrophysiology 11/18/23 documented as of this encounter
--- OUTSIDE RECORDS SUMMARY | 2024-07-27 14:23 | XMS_ITS | Encounter Summary ---
Author Organization [facility] Init iatives Address [address] [place] [address] Care Team Providers Care Lithographic Plate Maker Apprentice Name Role Phone Linh Doty DO Primary Care Provider [phone] Lizzie Alves PA-C Unavailable [phone] Kaushik Mariscal MD Unavailable Encounter Details Date Type Department Care Team (Late st Contact Info) Description 07/22/2021 Transcribed Document [facility] [place] [address] [place] [address] ProviderChad MD [address] [place] [address] Social History Tobacco Use Types Packs/Day Years Used Date Smoking Tobacco: Never Assessed Comments Unknown Sex and Gender Information Value Date Recorded Sex Assigned at Not on file Legal Sex Female 3:27 PM CDT Gender Identity Not on file Sexual Orientation Not on file documented as of this encounter Miscellaneous Notes * Cerner Conversion Note - Chad Merchant MD - 07/22/2021 9:25 AM CDT Patient: LENA MENDOZA Age: 55 years Sex: Female : [...] with bloody drainage. Patient was admitted to [facility] on 07/16/2021. Post generator change, patient [...] infection with ICD until 08/15. No fever. Review of Systems Constitutional: Weakness, Fatigue, No fever, No chills, No sweats. Eye Ear/Nose/Mouth/Throat Respiratory: No shortness of breath, No cough, No sputum production, No hemoptysis. Cardiovascular: No palpitations, No bradycardia. Gastrointestinal: No nausea, No vomiting, No diarrhea, No heartburn, No abdominal pain. Genitourinary: No [...] (Rocephin) - 2 Gram, IV Piggyback, Inj, [id number], infuse over 30 Minute(s), Routine DAPTOmycin + Sodium Chloride 0.9% intravenous solution 50 mL - 400 mg, IV Piggyback, Inj, [id number], infuse over 30 Minute(s), Routine Anticoagulant alteplase [...] Hypertension, Routine Physical Examination VS/Measurements Vital Measurements 07/21/2021 23:48 EDT Oxygen Flow Rate 4 Liter/Min , Vitals Signs (last 24 hrs) Last Charted Minimum Maximum Temp 98 (JUL 22 06:09) 97 (JUL 22 03:03) 98 (JUL 21 18:36) Mon HR 78 (JUL 22 06:09) 70 (JUL 22:31) 90 (JUL 21 22:00) Resp Rate 18 [...] 95 (JUL 22 06:09) L 89 (JUL 21:15) 97 (JUL 22 03:03) General: Alert and oriented, Moderate distress. Eye: [...] No tenderness, No deformity. Integumentary: Warm, Dry, [place], No pallor, No rash, ICD site left [...] (MADELEINE 09) 0.7 (MADELEINE 08) PTN 6.8 (JUL 12) 7.3 (MADELEINE 10) 6.8 (MADELEINE 09) 7.0 (MADELEINE 08) ALB L 2.9 (MADELEINE 12) L 3.2 (MADELEINE 10) L 3.2 (MADELEINE 09) L 3.3 (JUL 08) , ACC: [id number] ORDER: Culture Blood DATE: 07/16/2021 12:39 SOURCE: Blood SITE: Reports Final 07/21/2021 16:01 No growth at 5 days. Pre 07/20/2021 16:01 No growth at 4 days. Pre 07/19/2021 16:01 No growth at 3 days. Pre 07/18/2021 16:01 No growth at 2 days. Pre 07/17/2021 16:02 No growth at 1 day. Pre 07/17/2021 06:01 Culture less than 24 Hrs old == [facility]: [id number] ORDER: Culture Blood DATE: 07/16/2021 12:39 SOURCE: Blood SITE: Reports Final 07/21/2021 16:01 No growth at 5 days. Pre 07/20/2021 16:01 No growth at 4 days. Pre 07/19/2021 16:01 No growth at 3 days. Pre 07/18/2021 16:01 No growth at 2 days. Pre 07/17/2021 16:02 No growth at 1 day. Pre 07/17/2021 06:01 Culture less than 24 Hrs old == [facility]: [id number] ORDER: Culture Wound and Stain DATE: 07/17/2021 08:34 SOURCE: Wound SITE: Chest L Reports Final 07/20/2021 07:46 No growth Pre 07/18/2021 06:24 No growth GS 07/17/2021 14:09 No cells seen No organisms seen. == , Radiology Results (Last 48 hours) [id number] -- 07/16/2021 14:13 CR Chest 1 Vw Portable (07/20/2021 15:10) [...] interpreted, and dictated by Noel Jones MD . Impression and Plan 1. ICD site [...] on admission. 8. Hypocalcemia, ongoing. 9. Thrombocytopenia, slightly worse. 10. Hyponatremia, new. Plan: 1. Diagnostically, continue to follow patient's [...] cannula on 07/17, 07/18, 07/19, 07/20, 07/22. Plan has been discussed with patient including [...] Weekly PICC dressing changes. Fax orders to [phone], call [phone] with final arrangements. Hold rosuvastatin while on daptomycin to decrease risk of rhabdomyolysis. Arrange for follow-up with me in 1 week post discharge. documented in this encounter Plan of Treatment Not on file documented as of this encounter Visit Diagnoses Not on filedocumented in this encounter Care Teams Lithographic Plate Maker Apprentice Relationship Specialty Start Date End Date Linh Doty, DO [address] [place] [address] PCP - General Family Medicine 11/04/22 Lizzie Alves PA-C [address] [place] [id number] Hospitalist Cardiology 05/27/23 Kaushik Mariscal MD [address] [place] [address] Water And Sewer Systems Supervisor Electrophysiology 11/18/23 documented as of this encounter
--- OUTSIDE RECORDS SUMMARY | 2024-07-27 14:23 | XMS_ITS | Encounter Summary ---
Author Organization [employer] [facility] Init iatives Address [address] [place] [address] Care Team Providers Care Clinical Information Systems Director Name Role Phone Linh Doty DO Primary Care Provider [phone] Lizzie Alves PA-C Unavailable [phone] Kaushik Mariscal MD Unavailable Encounter Details Date Type Department Care Team (Late st Contact Info) Description 07/19/2021 Transcribed Document [facility] [place] [facility] [place] [address] ProviderChad MD [address] [place] [address] Social History Tobacco Use Types Packs/Day Years Used Date Smoking Tobacco: Never Assessed Comments Unknown Sex and Gender Information Value Date Recorded Sex Assigned at Not on file Legal Sex Female 3:27 PM CDT Gender Identity Not on file Sexual Orientation Not on file documented as of this encounter Miscellaneous Notes * Cerner Conversion Note - Chad Merchant MD - 07/19/2021 1:56 PM CDT UM Authorization Entered On: 07/19/2021 13:58 EDT Performed On: 07/19/2021 13:56 EDT by Khushi Jones Rn-Utilization Review Primary Insurance Authorization Authorization and Policy Numbers : Insurance 1 Health Plan: [employer] MED[employer] Policy Number: [id number] Authorization Number: Insurance Primary Name : [employer] Policy Number: [id number] Authorization Status-Primary : Admit approved Reference Number-Primary : [id number] Authorization Number-Primary : [id number] Number of Days Authorized-Primary : 6 Day(s) Authorized Service Begin Date-Primary : 07/16/2021 EDT Authorized Service End Date-Primary : 07/22/2021 EDT Authorization Comments-Primary : PER PORTAL IP APPROVED FOR 07/16 UP TO BUT NOT INCLUDING 07/22 Historical Authorization Comments-Primary : Comment 1: UNDER REVIEW PER WC PORTAL (Khushi Jones, Rn-Utilization Review 07/19/2021 09:22) Comment 2: CLINICAL FAXED VIA [employer] (Khushi Jones Rn-Utilization Review 07/17/2021 15:22) Comment 3: REF# PER GUME. CLINICAL FAXED VIA [employer] (Khushi Jones Rn-Utilization Review 07/17/2021 15:17) Khushi Jones Rn-Utilization Review - 07/19/2021 13:56 EDT Electronically signed by [facility], [facility] Conversion Industrial Engineering Intern Cerner at 05/27/2022 9:28 PM CDT documented in this encounter Plan of Treatment Not on file documented as of this encounter Visit Diagnoses Not on filedocumented in this encounter Care Teams Clinical Information Systems Director Relationship Specialty Start Date End Date Linh Doty, DO [address] [facility] [address] [place] [address] PCP - General Family Medicine 11/04/22 Lizzie Alves PA-C [address] [facility], [facility] [address] [place] [address] Hospitalist Cardiology 05/27/23 Kaushik Mariscal MD [address] [facility] [address] [place] [address] Courtroom Clerk Electrophysiology 11/18/23 documented as of this encounter
--- OUTSIDE RECORDS SUMMARY | 2024-07-27 14:23 | XMS_ITS | Encounter Summary ---
Author Organization [employer] [facility] Init iatives Address [address] [place] [address] Care Team Providers Care Food Science Professor Name Role Phone Lihn Doty DO Primary Care Provider [phone] Lizzie Alves PA-C Unavailable [phone] Kaushik Mariscal MD Unavailable Encounter Details Date Type Department Care Team (Late st Contact Info) Description 07/19/[address] [facility] [place] Medicine [address] [place] [address] ProviderChad MD [address] [place] [address] Social History Tobacco Use Types Packs/Day Years Used Date Smoking Tobacco: Never Assessed Comments Unknown Sex and Gender Information Value Date Recorded Sex Assigned at Not on file Legal Sex Female 3:27 PM CDT Gender Identity Not on file Sexual Orientation Not on file documented as of this encounter Miscellaneous Notes * Cerner Conversion Note - Chad ProviderMD - 07/19/2021 9:24 AM CDT Central Line Checklist Entered On: 07/19/2021 9:27 EDT Performed On: 07/19/2021 9:24 EDT by Tao Robbins RN Central Line Checklist History and Physical on Chart : Yes Central Line Insertion Facility : [facility] Central Line Insertion Start Date/Time : 07/19/2021 9:02 EDT Central Catheter Type : Power injection PICC Central Line Lot Number : [id number] Central Line Vessel Cannulated : Basilic vein Central Line Laterality : Right Central Line Number of Lumens : 1 Central Line Insertion Site : Upper arm, right Central Line Insertion Reason : New indication PICC Line Exclusion Criteria : None CL Number of Insertion Attempts: : 1 Modified Seldinger Used : Yes Portable Ultrasound Device : Yes Central Line Clean Hands : Yes Site Preparation Procedure : Chlorhexidine (Chloraprep) if patient is 2 months or older, 30 second scrub plus 30 second dry time Central IV Full Body Drape Used : Yes Proper Use of Sterile Apparel per Policy : Yes Procedure to be Performed : PICC LINE PLACEMENT Time Out Pause Time : 07/19/2021 9:00 EDT All Activity Suspended : Yes Team Verbally Confirms Information : Correct patient identity, Correct side and site are marked, Consent form is present and accurate, Agreement on the procedure to be done, Correct patient position, Confirm the skin prep has dried, Performed in location of procedure after prepped/draped CL Time Out Additional Attendees : YVETTE VILLAGOMEZ RN, ADWOA RDZ RN, TAO ROBBINS RN, MANDA MCGRAW 1% Lidocaine Amt Used as Anesthetic : 3 mL Central IV Sterile Technique Maintained : Yes Central Line Secure with : Stabilization device Central Line Dressing Dated : Yes RN Notified CL is Approved to be Used : Yes Central Line Tip Location in SVC : Yes Nurse Notified Name : Yvette Villagomez, Tao Samaniego, SARAH - 07/19/2021 9:24 EDT documented in this encounter Plan of Treatment Not on file documented as of this encounter Visit Diagnoses Not on filedocumented in this encounter Care Teams Food Science Professor Relationship Specialty Start Date End Date Linh Doty, 8 [facility] [address] [place] [address] PCP - General Family Medicine 11/04/22 Lizzie Alves PA-C [address] [place] [address], [facility] [address] [place] [address] Hospitalist Cardiology 05/27/23 Kaushik Mariscal MD [address] [facility] [address] [place] [address] Legal Transcriber Electrophysiology 11/18/23 documented as of this encounter
--- OUTSIDE RECORDS SUMMARY | 2024-07-27 14:23 | XMS_ITS | Encounter Summary ---
Author Organization [facility] [facility] Init iatives Address [address] [place] [address] Care Team Providers Care Marketing Reporting Analyst Name Role Phone Linh Doty DO Primary Care Provider [phone] Lizzie Alves PA-C Unavailable [phone] Kaushik Mariscal MD Unavailable Encounter Details Date Type Department Care Team (Late st Contact Info) Description 07/22/2021 Transcribed Document [facility] [place] Family Medicine [address] [place] [address] ProviderChad MD [address] [place] [address] Social History Tobacco Use Types Packs/Day Years Used Date Smoking Tobacco: Never Assessed Comments Unknown Sex and Gender Information Value Date Recorded Sex Assigned at Not on file Legal Sex Female 3:27 PM CDT Gender Identity Not on file Sexual Orientation Not on file documented as of this encounter Miscellaneous Notes * Cerner Conversion Note - Chad ProviderMD - 07/22/2021 2:00 AM CDT Underground Miner Details Entered On: 07/22/2021 3:29 EDT Performed On: 07/22/2021 2:00 EDT by Larissa Dubois RN-PATIENT CARE BEDSIDE NON-EXEMPT Order Details Patient Needs Meds Crushed/Liquid : No Larissa Dubois RN-PATIENT CARE BEDSIDE NON-EXEMPT - 07/22/2021 3:29 EDT Electronically signed by [facility] Conversion Oracle E Business Developer Cerner at 05/27/2022 9:17 PM CDT documented in this encounter Plan of Treatment Not on file documented as of this encounter Visit Diagnoses Not on filedocumented in this encounter Care Teams Marketing Reporting Analyst Relationship Specialty Start Date End Date Linh Doty DO [address] [facility] [address] [place] [address] PCP - General Family Medicine 11/04/22 Lizzie Alves PA-C [address] [place] [address], [facility] [address] [place] [address] Hospitalist Cardiology 05/27/23 Kaushik Mariscal MD [address] [facility] [address] [place] [address] Track Worker Electrophysiology 11/18/23 documented as of this encounter
--- OUTSIDE RECORDS SUMMARY | 2024-07-27 14:23 | XMS_ITS | Clinical Summary ---
Author Organization [facility] Address [address] [place] [address] Phone Care Team Providers Care Housekeeping Worker Name Role Phone Fracisco DALTON, Gilson Begum Unavailable [phone] [ ] Conditions or Problems Problem Name Problem Code Onset Date Status Entry Date Provider Comment Standard Description Annotate Dermatitis due to drug AND/OR medicine taken internally 12676834 (SNOMED CT) 08/21 Active 08/21 Gilson Yap [...] subsequent encounter Cellulitis/wo und infection, chest wall 58318665 (SNOMED CT) 07/26 Active 07/26 Sherri Herndon Cellulitis of chest wall Ischemic Cardiomyopath y 314294971 (SNOMED CT) 07/26 Active 07/26 Sherri Herndon Generalized ischemic myocardial dysfunction Nicotine dependence, cigarettes 15456861 (SNOMED CT) 07/26 Active 07/26 Sherri Herndon Cigarette smoker COPD 49149659 (SNOMED CT) 07/26 Active 07/26 Sherri Herndon Chronic obstructive pulmonary disease Acute respiratory failure with hypoxia 32128596 (SNOMED CT) 07/26 Active 07/26 Sherri Herndon Acute respiratory failure Hypoalbuminem ia 176251277 (OMED CT) 07/26 Active 07/26 Sherri Herndon Hypoalbuminemia Hypocalcemia 6449430 ([facility] CT) 07/26 Active 07/26 Sherri Herndon Hypocalcemia Thrombocytope delia, secondary D69.59 (ICD-10-CM ) 07/26 Active 07/26 Sherri Herndon Other secondary thrombocytopenia Hyponatremia 08685449 ([facility] CT) 07/26 Active 07/26 Sherri Herndon Hyponatremia Medications Medication Instructions Start Date Stop Date Generic Name NDC Provider HYDROCODONE-ROSE TAMINOPHEN 5-325 MG TABS 1 Tab, as needed, Oral, every 8 hours hydrocodone-acet aminophen 96802089216 Faina Cantu CARVEDILOL 12.5 MG TABS 1 Tab, Oral, twice a day carvedilol 08943028791 Faina Cantu CEFDINIR 300 MG CAPS 1 Cap, Oral, every 12 hours cefdinir 29112559448 Faina Cantu DOXYCYCLINE HYCLATE 100 MG CAPS 1 Cap, Oral, twice a day doxycycline hyclate 91037913701 Faina Cantu FLORASTOR 250 MG CAPS 1 Cap, Oral, twice a day saccharomyces boulardii 16776420964 Faina Cantu FLUTICASONE PROPIONATE 50 MCG/ACT SUSP 2 Finley, as needed, Nasal, Daily fluticasone propionate 45188426346 Faina Cantu FOLIC ACID 1 MG TABS 1 Tab, Oral, Daily folic acid 66422828924 Faina Cantu FUROSEMIDE 20 MG TABS 1 Tab, Oral, Daily furosemide 25193952571 Faina Cantu GABAPENTIN 600 MG TABS 1 Tab, Oral, three times a day gabapentin 13828673293 Faina Cantu LISINOPRIL 20 MG TABS 1 Tab, Oral, At Bedtime lisinopril 14713952967 Faina Cantu NICOTINE STEP 1 21 MG/24HR PT24 1 Patch, TransDermal, Daily nicotine 68657056098 Faina Cantu PANTOPRAZOLE SODIUM 40 MG TBEC 1 Tab, Oral, Daily pantoprazole 72131545836 Faina Cantu POTASSIUM CHLORIDE ER 20 MEQ CR-TABS 1 Tab, Oral, Daily potassium chloride 94105431795 Faina Cantu TOPIRAMATE 25 MG TABS 1 Tab, Oral, At Bedtime topiramate 56997349376 Faina Cantu VITAMIN D (ERGOCALCIFEROL ) 1.25 MG (80551 UT) CAPS 1 Cap, Oral, Weekly ergocalciferol (vitamin d2) 31366207239 Faina Cantu Medications Administered No information available. [...] Name Date Entry Date CPT-sl STAT Labs CPT-11285 CMP [id number] CBC with Differential 2021 CPT-25412 C- reactive protein CPT-Cooral Continue oral antibiotics [...]
--- OUTSIDE RECORDS SUMMARY | 2024-07-27 14:23 | XMS_ITS | Encounter Summary ---
Author Organization [employer] [facility] Init iatives Address [address] [place] [address] Care Team Providers Care Dry Molder Name Role Phone Linh Doty DO Primary Care Provider Lizzie Alves PA-C Unavailable [phone] Kaushik Mariscal MD Unavailable Encounter Details Date Type Department Care Team (Late st Contact Info) Description 07/19/2021 Transcribed Document [facility] [place] [facility] [place] [address] ProviderChad MD [address] [place] [address] Social History Tobacco Use Types Packs/Day Years Used Date Smoking Tobacco: Never Assessed Comments Unknown Sex and Gender Information Value Date Recorded Sex Assigned at Not on file Legal Sex Female 3:27 PM CDT Gender Identity Not on file Sexual Orientation Not on file documented as of this encounter Miscellaneous Notes * Cerner Conversion Note - Chad Merchant MD - 07/19/2021 9:22 AM CDT UM Authorization Entered On: 07/19/2021 9:27 EDT Performed On: 07/19/2021 9:22 EDT by Khushi Jones Rn-Utilization Review Primary Insurance Authorization Authorization and Policy Numbers : Insurance 1 Health Plan: [employer] MEDICARE Policy Number: [id number] Authorization Number: Insurance Primary Name : [employer] MEDICARE Policy Number: [id number] Authorization Status-Primary : Awaiting callback Reference Number-Primary : [id number] Authorized Service Begin Date-Primary : 07/16/2021 EDT Authorization Comments-Primary : UNDER REVIEW PER PORTAL Historical Authorization Comments-Primary : Comment 1: CLINICAL FAXED VIA [employer] (Khushi Jones, Rn-Utilization Review 07/17/2021 15:22) Comment 2: REF# PER GUME. CLINICAL FAXED VIA [employer] (Khushi Jones Rn-Utilization Review 07/17/2021 15:17) Khushi Jones Rn-Utilization Review - 07/19/2021 9:22 EDT Electronically signed by [facility], [facility] Conversion Rn Mobile Cerner at 05/27/2022 9:27 PM CDT documented in this encounter Plan of Treatment Not on file documented as of this encounter Visit Diagnoses Not on filedocumented in this encounter Care Teams Dry Molder Relationship Specialty Start Date End Date Linh Doty, DO [address] [facility] [address] [place] [address] PCP - General Family Medicine 11/04/22 Lizzie Alves PA-C [address] [facility], [facility] [address] [place] [address] Hospitalist Cardiology 05/27/23 Kaushik Mariscal MD [address] [facility] [address] [place] [address] Wood Hacker Electrophysiology 11/18/23 documented as of this encounter
--- OUTSIDE RECORDS SUMMARY | 2024-07-27 14:23 | XMS_ITS | Encounter Summary ---
Author Organization [employer] [facility] Init iatives Address [address] [place] [address] Care Team Providers Care Rapier Insertion Loom Fixer Name Role Phone Linh Doty DO Primary Care Provider [phone] Lizzie Alves PA-C Unavailable [phone] Kaushik Mariscal MD Unavailable Encounter Details Date Type Department Care Team (Late st Contact Info) Description 11/23/[address] [facility] [place] [address] ProviderChad MD [address] [place] [address] Social History Tobacco Use Types Packs/Day [...] Merchant MD - 11/23/2018 1:18 PM CDT Nursing Discharge Summary Entered On: 11/23/2018 13:18 EDT Performed On: 11/23/2018 13:18 EDT by ELAINE CHOI RN Discharge Documentation Patient Disposition, General : Discharge Discharge To : Other: dc per wheelchair. IV Discontinued : Yes Personal Belongings With Patient : Yes ELAINE CHOI RN - 11/23/2018 13:18 EDT Electronically signed by Alberto Da Silva Conversion Substation Operator Conversion Cerner at 05/27/2022 9:11 PM CDT documented in this encounter Plan of Treatment Not on file documented as of this encounter Visit Diagnoses Not on filedocumented in this encounter Care Teams Rapier Insertion Loom Fixer Relationship Specialty Start Date End Date Linh Doty, 8 [facility] [address] [place] [address] PCP - General Family Medicine 11/04/22 Lizzie Alves PA-C [address] [place] [address], [facility] [address] [place] [address] Hospitalist Cardiology 05/27/23 Kaushik Mariscal MD [address] [facility] [address] [place] [address] Retort Operator Electrophysiology 11/18/23 documented as of this encounter
--- OUTSIDE RECORDS SUMMARY | 2024-07-27 14:23 | XMS_ITS | Encounter Summary ---
Author Organization [employer] [employer] [facility] Init iatives Address [address] [place] [address] Care Team Providers Care Relationship Advisor Name Role Phone Linh Doty DO Primary Care Provider [phone] Lizzie Alves PA-C Unavailable [phone] Kaushik Mariscal MD Unavailable Encounter Details Date Type Department Care Team (Late st Contact Info) Description 07/19/2021 Transcribed Document [facility] Radiology [address] [id number] Yanick Torres MD [address] [place] [address] [address] [place] [address] Social History Tobacco Use Types Packs/Day Years Used Date Smoking Tobacco: Never Assessed Comments Unknown Sex and Gender Information Value Date Recorded Sex Assigned at Not on file Legal Sex Female 3:27 PM CDT Gender Identity Not on file Sexual Orientation Not on file documented as of this encounter Miscellaneous Notes * Cerner Conversion Note - Yanick Torres MD - 07/19/2021 11:43 AM EDT Patient: GAGAN MENDOZA Age: 55 [...] restarting antiplatelets or anticoagulation for now 07/20 Past medical history ischemic cardiomyopathy status [...] mg, 8 mL, 116 mL/Hr, IV Piggyback, [id number] Florastor: 250 mg, Oral, BID Lasix: 20 mg, Oral, Daily MiraLax: 17 Gram, Oral, Daily, PRN: Constipation Normal Saline Flush: 10 mL, IntraCATHeter, Q12H Rocephin: 2 Gram, 100 mL/Hr, IV Piggyback, [id number] Roxicodone: 5 mg, Oral, Q4H, PRN: Pain [...] Refill(s) fluticasone 50 mcg/inh nasal spray: 2 [place], Nasal, Daily, PRN: Nasal Congestion, 16 Gram, [...] BID fluticasone 50 mcg/inh nasal spray 2 [place], PRN, Nasal, Daily folic acid 1 mg [...] Oral, BID cefTRIAXone 2 Gram, IV Piggyback, [id number] DAPTOmycin + NaCl 0.9% 50 mL 400 mg 8 mL, IV Piggyback, [id number] ergocalciferol 50,000 unit cap 50,000 Units 1 [...] At risk for sleep apnea / IMO [id number] / Confirmed High cholesterol / SNOMED CT 02288001 / Confirmed Canceled: At risk for sleep apnea / IMO [id number] Canceled: COPD (chronic obstructive pulmonary disease) / SNOMED CT 04235602 Canceled: HTN (hypertension) / SNOMED CT 5199807060, Active Problems (12) Arteriosclerosis At risk for sleep apnea Cardiomyopathy Chronic CHF Current smoker Gout High cholesterol History of [place] (myocardial infarction) Intermittent claudication Pacemaker PAD (peripheral artery disease) Stented coronary artery Objective VS/Measurements Vitals Signs (last 24 hrs) Last Charted Minimum Maximum Temp 97.6 (JUL 19 05:56) 97.6 (JUL 19 05:56) 99.3 (JUL 19 02:00) Mon HR 75 (JUL 19 05:56) 75 (JUL 19 05:56) 87 (JUL 18 22:15) Resp Rate 18 (JUL 19 05:56) 15 (JUL 19 02:00) 18 (JUL 18 22:15) SBP 99 (JUL 19 05:56) 99 (JUL 19 05:56) 110 (JUL 19 02:00) DBP 60 (JUL 19 05:56) 60 (JUL 19 05:56) 67 (JUL 18 22:15) MAP 75 (JUL 19 05:56) 72 (JUL 19 02:00) 78 (JUL 18 22:15) SpO2 95 (JUL 19 05:56) 95 (JUL 19 05:56) 98 (JUL 18 22:15) General: No acute distress. Eye: Normal conjunctiva. Neck: No jugular venous distention. Respiratory: Lungs are clear to auscultation, Respirations are non-labored, Breath sounds are equal. Cardiovascular: Regular rhythm, No gallop, S1+ S2 No S3 or S4 [place].. Gastrointestinal: Soft, Non-tender, Non-distended, Normal bowel sounds. Genitourinary: No costovertebral angle tenderness. Integumentary: Warm, No rash, She has thick dressing in place left upper chest over AICD site distally left arm she has intact neurovascular status with easily palpable radial pulse. Neurologic: Alert, Oriented, No focal deficits. Psychiatric: Cooperative, Appropriate mood & affect. Results Review JUL 19 05:21 136 L 99 12 / 101 4.0 H 34 0.90 \ Impression and Plan Diagnosis -Status post [...] Weekly PICC dressing changes. Fax orders to [id number], c Hold rosuvastatin while on daptomycin to decrease risk of rhabdomyolysis. 07/20 documented in this encounter Plan of Treatment Not on file documented as of this encounter Visit Diagnoses Not on filedocumented in this encounter Care Teams Relationship Advisor Relationship Specialty Start Date End Date Linh Doty, [address] [facility] [address] [place] [address] PCP - General Family Medicine 11/04/22 Lizzie Alves PA-C [address] [facility], [facility] [address] [place] [address] Hospitalist Cardiology 05/27/23 Kaushik Mariscal MD [address] [facility] [place] [address] [place] [address] Pigment Weigher Electrophysiology 11/18/23 documented as of this encounter
--- OUTSIDE RECORDS SUMMARY | 2024-07-27 14:23 | XMS_ITS | Encounter Summary ---
Author Organization [employer] [facility] Init iatives Address [address] [place] [address] Care Team Providers Care Termite Helper Name Role Phone Linh Doty DO Primary Care Provider [phone] Lizzie Alves PA-C Unavailable [phone] Kaushik Mariscal MD Unavailable Encounter Details Date Type Department Care Team (Late st Contact Info) Description 07/21/2021 Transcribed Document [facility] Family Medicine [address] [place] [address] ProviderChad MD [address] [place] [address] Social History Tobacco Use Types Packs/Day Years Used Date Smoking Tobacco: Never Assessed Comments Unknown Sex and Gender Information Value Date Recorded Sex Assigned at Not on file Legal Sex Female 3:27 PM CDT Gender Identity Not on file Sexual Orientation Not on file documented as of this encounter Miscellaneous Notes * Cerner Conversion Note - Chad ProviderMD - 07/21/2021 2:00 AM CDT Wiping Cloth Cutter Details Entered On: 07/21/2021 1:14 EDT Performed On: 07/21/2021 2:00 EDT by ELDER WILSON RN Order Details Patient Needs Meds Crushed/Liquid : No ELDER WILSON RN - 07/21/2021 1:14 EDT documented in this encounter Plan of Treatment Not on file documented as of this encounter Visit Diagnoses Not on filedocumented in this encounter Care Teams Termite Helper Relationship Specialty Start Date End Date Linh Doty, 8 [facility] [address] [place] [address] PCP - General Family Medicine 11/04/22 Lizzie Alves PA-C 1401 [facility], [facility] [address] [place] [address] Hospitalist Cardiology 05/27/23 Kaushik Mariscal MD 1401 [facility] [place] [address] [place] [address] Strap Sewer Electrophysiology 11/18/23 documented as of this encounter
--- OUTSIDE RECORDS SUMMARY | 2024-07-27 14:23 | XMS_ITS ---
Author Organization [facility] Care Team Providers Care High Scaler Name Role Phone Dodie Cummins Unavailable Unavailable Ludivina Retana Unavailable Unavailable Wen Chadwick Unavailable Unavailable Julieta Guardado Unavailable Allergies and adverse reactions No Known Allergies Care Team Name Role Address Phone Organization Dates Ludivina Retana PCP [address] [place] [address], [facility] (Office): [facility] 06/05/2023 - 06/22/2023 Dodie Cummins [address] (Office): : [facility] 06/05/2023 - 06/22/2023 Wen Chadwick [address] [place] [address] 06/05/2023 - 06/22/2023 Julieta Guardado [address] [place] [address] (Office): : [facility] 06/05/2023 - 06/22/2023 Immunizations Immunization Status Vaccine Details Vaccine Code CodeSystem Date Notes TB 2 Step Mantoux Skin Test completed tuberculin skin test; unspecified formulation lotNumber: [id number] expiry: 01/09/2025 Mfg: Aplisil 5 TU/0.1 ML//o Given 0.1 ml Left Forearm subcutaneously Step 2 of Multi-step with next step required 98 CVX created date: 06/13/2023 consent date: 06/13/2023 administere d date: 06/12/2023 TB 2 Step Mantoux Skin Test completed tuberculin skin test; unspecified formulation lotNumber: [id number] expiry: 01/09/2025 Mfg: Apisol 5tu/0.1ml Given 0.1 [...] CodeSystem Concern Status 1 UNSPECIFIED CONVULSIONS 06/08/[address] active 2 ACUTE AND CHRONIC RESPIRATORY FAILURE WITH HYPOXIA 06/05/[address] active 3 ACUTE ON CHRONIC COMBINED SYSTOLIC (CONGESTIVE) AND DIASTOLIC (CONGESTIVE) HEART FAILURE 06/05/[address] active 4 ALTERED MENTAL STATUS, UNSPECIFIED 06/05/[address] active 5 CARDIOGENIC SHOCK 06/05/[address] active 6 CARDIOMYOPATHY, UNSPECIFIED 06/05/[address] active 7 DEFECTS IN THE COMPLEMENT SYSTEM 06/05/[address] active 8 DIFFICULTY IN WALKING, NOT ELSEWHERE CLASSIFIED 06/05/[address] active 9 ESSENTIAL (PRIMARY) HYPERTENSION 06/05/[address] active 10 HEART FAILURE, UNSPECIFIED 06/05/[address] active 11 ISCHEMIC CARDIOMYOPATHY 06/05/[address] active 12 LEFT VENTRICULAR FAILURE, UNSPECIFIED 06/05/[address] active 13 NICOTINE DEPENDENCE, CIGARETTES, UNCOMPLICATED 06/05/[address] active 14 OTHER ABNORMALITIES OF GAIT AND MOBILITY 06/05/[address] active 15 OTHER SPECIFIED DISORDERS INVOLVING THE IMMUNE MECHANISM, NOT ELSEWHERE CLASSIFIED 06/05/[address] active 16 PRESENCE OF AUTOMATIC (IMPLANTABLE) CARDIAC DEFIBRILLATOR 06/05/[address] active 17 RESPIRATORY DISORDERS IN DISEASES CLASSIFIED ELSEWHERE 06/05/[address] active 18 RESPIRATORY FAILURE, UNSPECIFIED WITH HYPOXIA 06/05/[address] active 19 TYPE 2 DIABETES MELLITUS WITHOUT COMPLICATIONS 06/05/[address] active 20 UNSPECIFIED SEQUELAE OF OTHER CEREBROVASCULAR DISEASE 06/05/[address] active 21 UNSPECIFIED SYSTOLIC (CONGESTIVE) HEART FAILURE 06/05/[address] active 22 UNSTEADINESS ON FEET 06/05/[address] active 23 VENOUS INSUFFICIENCY (CHRONIC) (PERIPHERAL) 06/05/[address] active 24 WEAKNESS 06/05/[address] active Reason for Referral No Reasons for Referral Entered Social History Social History Observation Description Start Date End Date Code Code System Current Smoking Status Tobacco smoking consumption unknown 841704685 SNOMED CT Sex Assigned At Female 1965 14746-7 [facility] Gender Identity Vital Signs Code Code System Vitals Name Values and Units Timing Information 17622-2 [facility] Pain Level Value=0.0 06/21/2023 55466-1 [facility] O2 % BldC Oximetry Value=94.0 Units= % 06/21/2023 9279-1 [facility] Respiratory Rate Value=18.0 Units=/m in 06/21/2023 8462-4 [facility] Blood Pressure-Diastolic Value=62 Un its=mmHg 06/21/2023 8480-6 [facility] Blood Pressure-Systolic Qhtbt=968 Un its=mmHg 06/21/2023 8310-5 [facility] Body Temperature Value=97.2 Units= F 06/21/2023 8867-4 [facility] Heart rate Value=68.0 Units=/min 01/2024 2339-0 [facility] Blood Sugar Pzwpf=100.0 Units=mg/dL 06/13/2023 90375[facility]7 [facility] Weight Logvs=131.8 Units=Lbs 03/2023 8302-2 [facility] Height Value=67.0 Units=Inches 06/06/2023
--- OUTSIDE RECORDS SUMMARY | 2024-07-27 14:23 | XMS_ITS | Encounter Summary ---
Author Organization [employer] [facility] Init [facility]atives Address [address] [place] [address] Care Team Providers Care Ap Processor Name Role Phone Linh Doty DO Primary Care Provider Lizzie Alves PA-C Unavailable [phone] Kaushik Mariscal MD Unavailable Encounter Details Date Type Department Care Team (Late st Contact Info) Description 07/22/2021 Transcribed Document [facility] Family Medicine [address] [place] [address] ProviderChad MD [address] [place] [address] Social History Tobacco Use Types Packs/Day Years Used Date Smoking Tobacco: Never Assessed Comments Unknown Sex and Gender Information Value Date Recorded Sex Assigned at Not on file Legal Sex Female 3:27 PM CDT Gender Identity Not on file Sexual Orientation Not on file documented as of this encounter Miscellaneous Notes * Cerner Conversion Note - Chad ProviderMD - 07/22/2021 1:09 AM CDT Event Note Entered On: 07/22/2021 1:10 EDT Performed On: 07/22/2021 1:09 EDT by Larissa Dubois RN-PATIENT CARE BEDSIDE NON-EXEMPT Event Note Event Date/Time : 07/22/2021 1:09 EDT Event Details : Change in condition Description of Event : pt has hives all over body. Notified dr garcia. orders recieved. said to hold antibiotics until day team is notified. Larissa Dubois, RN-PATIENT CARE BEDSIDE NON-EXEMPT - 07/22/2021 1:09 EDT documented in this encounter Plan of Treatment Not on file documented as of this encounter Visit Diagnoses Not on filedocumented in this encounter Care Teams Ap Processor Relationship Specialty Start Date End Date Linh Doty, DO 8 [facility] [address] [place] [address] PCP - General Family Medicine 11/04/22 Lizzie Alves PA-C 1401 [facility], [facility] [address] [place] [address] Hospitalist Cardiology 05/27/23 Kaushik Mariscal MD 1401 [facility] [address] [place] [address] Barrel Raiser Electrophysiology 11/18/23 documented as of this encounter
--- OUTSIDE RECORDS SUMMARY | 2024-07-27 14:23 | XMS_ITS | Encounter Summary ---
Author Organization [employer] [facility] Init [facility]atives Address [address] [place] [address] Care Team Providers Care Dry Starch Supervisor Name Role Phone Linh Doty DO Primary Care Provider [phone] Lizzie Alves PA-C Unavailable [phone] Kaushik Mariscal MD Unavailable Encounter Details Date Type Department Care Team (Late st Contact Info) Description 07/02/[address] [facility] [place] [facility] [place] [address] ProviderhCad MD [address] [place] [address] Social History Tobacco Use Types Packs/Day Years Used Date Smoking Tobacco: Never Assessed Comments Unknown Sex and Gender Information Value Date Recorded Sex Assigned at Not on file Legal Sex Female 3:27 PM CDT Gender Identity Not on file Sexual Orientation Not on file documented as of this encounter Miscellaneous Notes * Cerner Conversion Note - Chad Merchant MD - 07/02/2021 2:07 PM CDT Patient Education Materials Follows: Fall Prevention in the Home, Adult Falls [...] Keep items that you use often in rxve-or-drexa places. Lower the shelves around your home [...] the way. ??? Do not use floor irish or wax that makes floors slippery. What [...] ??? Centers for Disease Control and Prevention, [place]: www.cdc.gov ??? National [place] on Aging: www.delia.nih.gov Contact a doctor if: [...] provider. Document Revised: 08/29/2020 Document Reviewed: 08/29/2020 [employer] Patient Education ? 2020 [employer] ENT Sleep Apnea Sleep apnea affects breathing during [...] ask your doctor. General instructions ??? Take pxmt-kim-lcntibt and prescription medicines only as told by [...] provider. Document Revised: 11/12/2018 Document Reviewed: 09/21/2018 [employer] Patient Education ? 2020 [employer] Procedures Biventricular Pacemaker Implantation, Care After This sheet [...] these instructions at home: Medicines ??? Take fdcd-fpm-snzeasx and prescription medicines only as told by [...] and water are not available, use hand zipper sewing machine operator. ? Change your dressing as told by [...] Get up to take short walks every 1?2 hours. This is important to improve blood [...] test. ??? Have your pacemaker checked every 3?6 months or as often as told by [...] your chest for several days. ??? Take csxd-dgi-jxwdjsk and prescription medicines only as told by [...] provider. Document Revised: 12/27/2018 Document Reviewed: 12/27/2018 [employer] Patient Education ? 2020 [employer]. documented in this encounter Plan of Treatment Not on file documented as of this encounter Visit Diagnoses Not on filedocumented in this encounter Care Teams Dry Starch Supervisor Relationship Specialty Start Date End Date Linh Doty, DO [address] [facility] [address] [place] [address] PCP - General Family Medicine 11/04/22 Lizzie Alves PA-C 1401 [facility], [facility] [address] [place] [address] Hospitalist Cardiology 05/27/23 Kaushik Mariscal MD 1401 [facility] [address] [place] [address] Service Line Coordinator Electrophysiology 11/18/23 documented as of this encounter
--- OUTSIDE RECORDS SUMMARY | 2024-07-27 14:23 | XMS_ITS | Encounter Summary ---
Author Organization [employer] [facility] Init [facility]atives Address [address] [place] [address] Care Team Providers Care Brand Marketing Intern Name Role Phone Linh Doty DO Primary Care Provider [phone] Lizzie Alves PA-C Unavailable [phone] Kaushik Mariscal MD Unavailable Encounter Details Date Type Department Care Team (Late st Contact Info) Description 07/18/2021 Transcribed Document [facility] Radiology [address] [id number] Yanick Torres MD [address] [place] [address] [address] [place] [address] Social History Tobacco Use Types Packs/Day Years Used Date Smoking Tobacco: Never Assessed Comments Unknown Sex and Gender Information Value Date Recorded Sex Assigned at Not on file Legal Sex Female 3:27 PM CDT Gender Identity Not on file Sexual Orientation Not on file documented as of this encounter Miscellaneous Notes * Cerner Conversion Note - Yanick Torres MD - 07/18/2021 11:04 AM EDT Patient: GAGAN MENDOZA Age: 55 [...] remains on antibiotics per ID 07/19 patient 07/20 Past medical history ischemic [...] mL: 1,000 mg, 250 mL/Hr, IV Piggyback, [id number] Prescriptions Prescribed nicotine 21 mg/24 hr transdermal [...] Refill(s) fluticasone 50 mcg/inh nasal spray: 2 [place], Nasal, Daily, PRN: Nasal Congestion, 16 Gram, [...] BID fluticasone 50 mcg/inh nasal spray 2 [place], PRN, Nasal, Daily folic acid 1 mg [...] 0.9% 250 mL 1,000 mg, IV Piggyback, [id number] Continuous: (0) PRN: (7) acetaminophen 325 mg [...] At risk for sleep apnea / IMO [id number] / Confirmed High cholesterol / SNOMED CT 60985644 / Confirmed Canceled: At risk for sleep apnea / IMO [id number] Canceled: COPD (chronic obstructive pulmonary disease) / SNOMED CT 99334652 Canceled: HTN (hypertension) / SNOMED CT 3232406364, Active Problems (12) Arteriosclerosis At risk for sleep apnea Cardiomyopathy Chronic CHF Current smoker Gout High cholesterol History of [place] (myocardial infarction) Intermittent claudication Pacemaker PAD (peripheral artery disease) Stented coronary artery Objective VS/Measurements Vitals Signs (last 24 hrs) Last Charted Minimum Maximum Temp 98.8 (JUL 18 02:15) 98.8 (JUL 18 02:15) 98.5 (JUL 17 19:13) Mon HR 79 (JUL 18 01:30) 74 (JUL 17 11:00) 96 (JUL 17 13:30) Resp Rate 18 (JUL 17 19:13) 15 (JUL 17 11:00) H 21 (JUL 17 13:30) SBP 102 (JUL 18:30) 96 (JUL 17 12:30) 111 (JUL 17:00) DBP 60 (JUL 18:30) L 59 (JUL 17:30) 67 (JUL 17:00) MAP 72 (JUL 18:30) 72 (JUL 18:30) 81 (JUL 17:) SpO2 96 (JUL 18:) L 88 (JUL 17 15:30) 96 (JUL 17:30) General: No acute distress. Eye: Normal conjunctiva. Neck: No jugular venous distention. Respiratory: Lungs are clear to auscultation, Respirations are non-labored, Breath sounds are equal. Cardiovascular: Regular rhythm, No gallop, S1+ S2 No S3 or S4 [place].. Gastrointestinal: Soft, Non-tender, Non-distended, Normal bowel sounds. Genitourinary: No costovertebral angle tenderness. Integumentary: Warm, No rash, She has thick dressing in place left upper chest over AICD site distally left arm she has intact neurovascular status with easily palpable radial pulse. Neurologic: Alert, Oriented, No focal deficits. Psychiatric: Cooperative, Appropriate mood & affect. Results Review JUL 18 04:43 L 135 103 13 / 99 3.6 H 34 0.90 \ JUL 18 04:43 \ H 16.2 / 9.6 L 106 / H 52.1 \ Impression and Plan Diagnosis -Status post [...] case personally with electrophysiology MD today 07/19 07/20 documented in this encounter Plan of Treatment Not on file documented as of this encounter Visit Diagnoses Not on filedocumented in this encounter Care Teams Brand Marketing Intern Relationship Specialty Start Date End Date Linh Doty, DO [address] [place] [address] PCP - General Family Medicine 11/04/22 Lizzie Alves PA-C [address] [place] [address], [facility] [address] [place] [address] Hospitalist Cardiology 05/27/23 Kaushik Mariscal MD 1401 [facility] [place] [address] Communications Lead Electrophysiology 11/18/23 documented as of this encounter
--- OUTSIDE RECORDS SUMMARY | 2024-07-27 14:23 | XMS_ITS | Encounter Summary ---
Author Organization [employer] [facility] Init iatives Address [address] [place] [address] Care Team Providers Care Market News Reporter Name Role Phone Linh Doty DO Primary Care Provider [phone] Lizzie Alves PA-C Unavailable [phone] Kaushik Mariscal MD Unavailable Encounter Details Date Type Department Care Team (Late st Contact Info) Description 07/19/2021 Transcribed Document [facility] Radiology [address] [id number] Yanick Torres MD [address] [place] [address] [address] [place] [address] Social History Tobacco Use Types Packs/Day Years Used Date Smoking Tobacco: Never Assessed Comments Unknown Sex and Gender Information Value Date Recorded Sex Assigned at Not on file Legal Sex Female 3:27 PM CDT Gender Identity Not on file Sexual Orientation Not on file documented as of this encounter Miscellaneous Notes * Cerner Conversion Note - Yanick Torres MD - 07/19/2021 11:46 AM EDT Patient: GAGAN MENDOZA Age: 55 years Sex: Female : 1965 Associated Diagnoses: None Author: YANICK TORRES MD-INT Subjective Primary care physician Beryl Doty Date of admission 07/16/2021 Date of discharge 07/20/2021 Chief complaint AICD site hematoma History of [...] mg, 8 mL, 116 mL/Hr, IV Piggyback, [id number] Florastor: 250 mg, Oral, BID Lasix: 20 mg, Oral, Daily MiraLax: 17 Gram, Oral, Daily, PRN: Constipation Normal Saline Flush: 10 mL, IntraCATHeter, Q12H Rocephin: 2 Gram, 100 mL/Hr, IV Piggyback, [id number] Roxicodone: 5 mg, Oral, Q4H, PRN: Pain [...] 0 Refill(s) Rocephin: 2 Gram, IV Piggyback, [id number], 0 Refill(s) Vitamin D2 1.25 mg (50,000 intl units) oral capsule: 1 Cap, Oral, Weekly, 0 Refill(s) acetaminophen-HYDROcodone 325 mg-5 mg oral tablet: 1 Tab, Oral, Q8H, PRN: for pain, 0 Refill(s) carvedilol 12.5 mg oral tablet: 1 Tab, Oral, BID, 180 Tab, 0 Refill(s) fluticasone 50 mcg/inh nasal spray: 2 [place], Nasal, Daily, PRN: Nasal Congestion, 16 Gram, [...] BID fluticasone 50 mcg/inh nasal spray 2 [place], PRN, Nasal, Daily folic acid 1 mg [...] Oral, Daily Rocephin 2 Gram, IV Piggyback, [id number] topiramate 25 mg oral tablet 25 mg [...] Oral, BID cefTRIAXone 2 Gram, IV Piggyback, [id number] DAPTOmycin + NaCl 0.9% 50 mL 400 mg 8 mL, IV Piggyback, [id number] ergocalciferol 50,000 unit cap 50,000 Units 1 [...] At risk for sleep apnea / IMO [id number] / Confirmed High cholesterol / SNOMED CT 70049487 / Confirmed Canceled: At risk for sleep apnea / IMO [id number] Canceled: COPD (chronic obstructive pulmonary disease) / SNOMED CT 22288892 Canceled: HTN (hypertension) / SNOMED CT 8988508746, Active Problems (12) Arteriosclerosis At risk for sleep apnea Cardiomyopathy Chronic CHF Current smoker Gout High cholesterol History of NM (myocardial infarction) Intermittent claudication Pacemaker PAD (peripheral artery disease) Stented coronary artery Objective VS/Measurements Vitals Signs (last 24 hrs) Last Charted Minimum Maximum Temp 97.6 (JUL 19 05:56) 97.6 (JUL 19 05:56) 99.3 (JUL 19 02:00) Mon HR 75 (JUL 19 05:56) 75 (JUL 19 05:56) 87 (JUL 18 22:15) Resp Rate 18 (JUL 19 05:56) 15 (JUL 19 02:00) 18 (JUL 18:15) SBP 99 (JUL 19 05:56) 99 (JUL [...] gallop, S1+ S2 No S3 or S4 [place]ne.. Gastrointestinal: Soft, Non-tender, Non-distended, Normal bowel sounds. [...] Weekly PICC dressing changes. Fax orders to [id number], c Hold rosuvastatin while on daptomycin to decrease risk of rhabdomyolysis. 07/20 Discharge Medications (14) Active acetaminophen-HYDROcodone 325 mg-5 mg oral tablet 1 Tab, PRN, Oral, Q8H carvedilol 12.5 mg oral tablet 12.5 mg = 1 Tab, Oral, BID Florastor 250 mg oral capsule 250 mg = 1 Cap, Oral, BID fluticasone 50 mcg/inh nasal spray 2 [place], PRN, Nasal, Daily folic acid 1 mg [...] Oral, Daily Rocephin 2 Gram, IV Piggyback, [id number] topiramate 25 mg oral tablet 25 mg = 1 Tab, Oral, At Bedtime Vitamin D2 1.25 mg (50,000 intl units) oral capsule 50,000 Int Units = 1 Cap, Oral, Weekly Discharge/Follow Up instructions: Follow up with primary care physician (PCP) will be arranged Continue intravenous antibiotics as recommended by infectious disease service Activity as tolerated Patient seen and examined on the day of discharge Discharge was discussed with the patient Greater than thirty minutes spend coordinating the discharge process Per ID service following recommendations are made IV antibiotics at home or local facility with daptomycin 400 mg IV daily, ceftriaxone 2 g IV daily until 08/15/2021. Check CBC, CMP, CRP, CPK weekly while on IV antibiotics. Weekly PICC dressing changes. Hold rosuvastatin , while on daptomycin to decrease risk of rhabdomyolysis. CC: copy of this discharge summary to patients Primary Care Provider (PCP) documented in this encounter Plan of Treatment Not on file documented as of this encounter Visit Diagnoses Not on filedocumented in this encounter Care Teams Market News Reporter Relationship Specialty Start Date End Date Linh Doty DO 8 [facility] [address] [place] [id number] PCP - General Family Medicine 11/04/22 Lizzie Alves PA-C [address] [place] [address] Hospitalist Cardiology 05/27/23 Kaushik Mariscal MD 14[address] [facility] [address] [place] [address] Agronomy Research Manager Electrophysiology 11/18/23 documented as of this encounter
--- OUTSIDE RECORDS SUMMARY | 2024-07-27 14:23 | XMS_ITS | Encounter Summary ---
Author Organization [employer] [facility] Init iatives Address [address] [place] [address] Care Team Providers Care Oven Dumper Name Role Phone Linh Doty DO Primary Care Provider [phone] Lizzie Alves PA-C Unavailable [phone] Kaushik Mariscal MD Unavailable Encounter Details Date Type Department Care Team (Late st Contact Info) Description 07/23/2021 Transcribed Document [facility] Family Medicine [address] [place] [address] ProviderChad MD [address] [place] [address] Social History Tobacco Use Types Packs/Day Years Used Date Smoking Tobacco: Never Assessed Comments Unknown Sex and Gender Information Value Date Recorded Sex Assigned at Not on file Legal Sex Female 3:27 PM CDT Gender Identity Not on file Sexual Orientation Not on file documented as of this encounter Miscellaneous Notes * Cerner Conversion Note - Chad ProviderMD - 07/23/2021 5:00 AM CDT Chart Check - Review Order Profile Entered On: 07/23/2021 4:57 EDT Performed On: 07/23/2021 5:00 EDT by Jessica Recinos Lpn Chart Check Powerplans Initiated/Discontinued as Appropriate : Yes All Active Orders Reviewed : Yes Jessica Recinos Lpn - 07/23/2021 4:57 EDT documented in this encounter Plan of Treatment Not on file documented as of this encounter Visit Diagnoses Not on filedocumented in this encounter Care Teams Oven Dumper Relationship Specialty Start Date End Date Linh Doty, 8 [facility] [address] [place] [address] PCP - General Family Medicine 11/04/22 Lizzie Alves PA-C [address] [place] [address], [facility] [address] [place] [address] Hospitalist Cardiology 05/27/23 Kaushik Mariscal MD [address] [facility] [address] [place] [address] Associate Director Data & Analytics Electrophysiology 11/18/23 documented as of this encounter
--- OUTSIDE RECORDS SUMMARY | 2024-07-27 14:23 | XMS_ITS | Encounter Summary ---
Author Organization [employer] [facility] Init iatives Address [address] [place] [address] Care Team Providers Care Vinyl Dipper Name Role Phone Linh Doty DO Primary Care Provider [phone] Lizzie Alves PA-C Unavailable [phone] Kaushik Mariscal MD Unavailable Encounter Details Date Type Department Care Team (Late st Contact Info) Description 07/19/2021 Transcribed Document [facility] [place] [address] [place] [address] ProviderChad MD [address] [place] [address] Social History Tobacco Use Types Packs/Day Years Used Date Smoking Tobacco: Never Assessed Comments Unknown Sex and Gender Information Value Date Recorded Sex Assigned at Not on file Legal Sex Female 3:27 PM CDT Gender Identity Not on file Sexual Orientation Not on file documented as of this encounter Miscellaneous Notes * Cerner Conversion Note - Chad Merchant MD - 07/19/2021 5:12 PM CDT Patient: GAGAN MENDOZA Age: 55 [...] with bloody drainage. Patient was admitted to [facility] on 07/16/2021. Post generator change, patient [...] Tolerating daptomycin and ceftriaxone continue until 08/15/2021. Review of Systems Constitutional: Weakness, No fever, [...] (Rocephin) - 2 Gram, IV Piggyback, Inj, [id number], infuse over 30 Minute(s), Routine DAPTOmycin + Sodium Chloride 0.9% intravenous solution 50 mL - 400 mg, IV Piggyback, Inj, [id number], infuse over 30 Minute(s), Routine Anticoagulant alteplase 1 mg + syringe 1 Each (Cathflo Activase 1 mg + syr - IV Push, Inj, 1-Time, PRN for Other (See Comment), Routine *Duplicate* Cardiovascular carvedilol - 12.5 mg, Oral, Tab, BID, Routine furosemide (Lasix) - 20 mg, Oral, Tab, Daily lisinopril - 20 mg, Oral, Tab, At Bedtime, Routine GI [...] Hypertension, Routine Physical Examination VS/Measurements Vital Measurements 07/19/2021 8:00 EDT Oxygen Flow Rate 4 Liter/Min , Vitals Signs (last 24 hrs) Last Charted Minimum Maximum Temp 98 (JUL 19 15:00) 97.6 (JUL 19:56) 99.3 (JUL 19 02:00) Mon HR 78 (JUL 19:00) 75 (JUL 19:56) 87 (JUL 18:15) Resp Rate 18 (JUL 19:56) 15 (JUL 19 02:00) 18 (JUL 18:15) SBP 100 (JUL 19:) 99 (JUL 19 05:56) 110 (JUL 19 02:00) DBP 60 (JUL 19:) 60 (JUL 19:56) 67 (JUL 18:15) MAP 73 (JUL 19:) 72 (JUL 19:00) 78 (JUL 18:15) SpO2 94 (JUL 19:) 94 (JUL 19:) 98 (JUL 18:) General: Alert and oriented, Moderate distress. Eye: Extraocular movements are intact, Normal conjunctiva. HENT: Normocephalic, Oral mucosa is moist. Neck: Supple, Non-tender, No jugular venous distention, No lymphadenopathy. Respiratory: Respirations are non-labored, Breath sounds are equal, No chest wall tenderness, Few crackles left base. Cardiovascular: Normal rate, No gallop, Normal peripheral perfusion. Gastrointestinal: Soft, Non-tender, Non-distended, Normal bowel sounds, No organomegaly. Lymphatics: No lymphadenopathy neck, axilla, groin. Musculoskeletal: Normal range of motion, Normal strength, No tenderness. Integumentary: Warm, Dry, [place], No pallor, No rash, ICD site left chest with no obvious drainage, bandage in place, and did not see the device. Neurologic: Alert, Oriented, No focal deficits, Normal deep tendon reflexes. Cognition and Speech: Oriented, Speech clear and coherent. Psychiatric: Cooperative, Appropriate mood & affect. Review / Management Results review: Labs (Last four charted values) WBC 9.6 (JUL 18) 8.4 (JUL 17) 7.4 (JUL 16) HB H 16.2 (JUL 18) H 16.9 (JUL 17) H 17.9 (MADELEINE 07) HCT H 52.1 (MADELEINE 09) H 53.4 (MADELEINE 08) H 56.1 (MADELEINE 07) Plt L 106 (MADELEINE 09) L 132 (MADELEINE 08) L 140 (MADELEINE 07) Na 136 (MADELEINE 10) L 135 (MADELEINE 09) 138 (MADELEINE 08) 138 (MADELEINE 07) K 4.0 (MADELEINE 10) 3.6 (MADELEINE 09) 3.8 (MADELEINE 08) 4.1 (MADELEINE 07) Cl L 99 (MADELEINE 10) 103 (MADELEINE 09) 107 (MADELEINE 08) 105 (MADELEINE 07) CO2 H 34 (MADELEINE 10) H 34 (MADELEINE 09) 32 (MADELEINE 08) 28 (MADELEINE 07) BUN 12 (MADELEINE 10) 13 (MADELEINE 09) 10 (MADELEINE 08) 10 (MADELEINE 07) Cr 0.90 (MADELEINE 10) 0.90 (MADELEINE 09) 0.80 (MADELEINE 08) 0.80 (MADELEINE 07) Glu R 101 (MADELEINE 10) 99 (MADELEINE 09) 93 (MADELEINE 08) 97 (MADELEINE 07) Ca H 10.6 (MADELEINE 10) 10.0 (MADELEINE 09) 10.1 (MADELEINE 08) H 10.7 (MADELEINE 07) Lactic 1.0 (MADELEINE 07) PT 11.1 (MADELEINE 07) INR 1.0 (MADELEINE 07) AST 22 (MADELEINE 10) 20 (MADELEINE 09) 23 (MADELEINE 08) 26 (MADELEINE 07) ALT 19 (MADELEINE 10) 21 (MADELEINE 09) 21 (MADELEINE 08) 25 (MADELEINE 07) ALK P 120 (MADELEINE 10) 114 (MADELEINE 09) 122 (MADELEINE 08) H 142 (MADELEINE 07) T Bili 0.5 (MADELEINE 10) 0.6 (MADELEINE 09) 0.7 (MADELEINE 08) 0.6 (MADELEINE 07) PTN 7.3 (MADELEINE 10) 6.8 (MADELEINE 09) 7.0 (MADELEINE 08) 7.6 (MADELEINE 07) ALB L 3.2 (MADELEINE 10) L 3.2 (MADELEINE 09) L 3.3 (MADELEINE 08) 3.5 (MADELEINE 07) , ACC: [id number] ORDER: Culture Wound and Stain DATE: 07/17/2021 08:34 SOURCE: Wound SITE: Chest L Reports Pre 07/18/2021 06:24 No growth GS 07/17/2021 14:09 No cells seen No organisms seen. == ACC: [id number] ORDER: Culture Blood DATE: 07/16/2021 12:39 SOURCE: Blood SITE: Reports Pre 07/19/2021 16:01 No growth at 3 days. Pre 07/18/2021 16:01 No growth at 2 days. Pre 07/17/2021 16:02 No growth at 1 day. Pre 07/17/2021 06:01 Culture less than 24 Hrs old == ACC: [id number] ORDER: Culture Blood DATE: 07/16/2021 12:39 SOURCE: Blood SITE: Reports Pre 07/19/2021 16:01 No growth at 3 days. Pre 07/18/2021 16:01 No growth at 2 days. Pre 07/17/2021 16:02 No growth at 1 day. Pre 07/17/2021 06:01 Culture less than 24 Hrs old == . Impression and Plan 1. ICD [...] with interstitial changes likely chronic per radiology.. 8. Hypocalcemia, new. Plan: 1. Diagnostically, continue to follow [...] 4 L/min nasal cannula on 07/17, 07/18, 07/19. Plan has been discussed with patient including [...] Weekly PICC dressing changes. Fax orders to [phone], call [phone] with final arrangements. Hold rosuvastatin while on daptomycin to decrease risk of rhabdomyolysis. Arrange for follow-up with me in 1 week post discharge. documented in this encounter Plan of Treatment Not on file documented as of this encounter Visit Diagnoses Not on filedocumented in this encounter Care Teams Vinyl Dipper Relationship Specialty Start Date End Date Linh Doty, [address] [place] [id number] PCP - General Family Medicine 11/04/22 Lizzie Alves PA-C [address] [place] [address] Hospitalist Cardiology 05/27/23 Kaushik Mariscal MD [address] [facility] [address] [place], [place] [id number] City Letter Carrier Electrophysiology 11/18/23 documented as of this encounter
--- OUTSIDE RECORDS SUMMARY | 2024-07-27 14:23 | XMS_ITS | Encounter Summary ---
Author Organization [employer] [facility] Init iatives Address [address] [place] [address] Care Team Providers Care Kaiako Kura Tuarua Name Role Phone Linh Doty DO Primary Care Provider [phone] Lizzie Alves PA-C Unavailable [phone] Kaushik Mariscal MD Unavailable Encounter Details Date Type Department Care Team (Late st Contact Info) Description 07/18/2021 Transcribed Document [facility] Family Medicine [address] [place] [address] ProviderChad MD [address] [place] [address] Social History Tobacco Use Types Packs/Day Years Used Date Smoking Tobacco: Never Assessed Comments Unknown Sex and Gender Information Value Date Recorded Sex Assigned at Not on file Legal Sex Female 3:27 PM CDT Gender Identity Not on file Sexual Orientation Not on file documented as of this encounter Miscellaneous Notes * Cerner Conversion Note - Chad Merchant MD - 07/18/2021 4:09 PM CDT On Going Discharge Planning Entered On: 07/18/2021 16:10 EDT Performed On: 07/18/2021 16:09 EDT by Mayra Vann Poultry Slaughterer Rn Care Management Progress Note Discharge Arrangements : Patient Post-Acute Information Patient Name: GAGAN MENDOZA Gender: Female : [birth year] Age: 55 Years No Post-Acute Placement(s) Listed No Post-Acute Service(s) Listed No [place] Referral(s) Listed Discharge Options Discussed with Patient : Acute rehabilitation, Discharge transportation, DME, Home Health, Outpatient services Patient Discharge Goal : Home Mayra Vann, Poultry Slaughterer Rn - 07/18/2021 16:09 EDT Narrative Progress Note Narrative Progress Note : hd 2 low rar patient has orders from ID r/t iv abx and picc care but patient has no orders for PICC placement at this time, CM has reached out to ID. home abx orders sent to [id number]. patient will also need hh dcp- home with hh and iv abx Mayra Vann, Poultry Slaughterer Rn - 07/18/2021 16:09 EDT documented in this encounter Plan of Treatment Not on file documented as of this encounter Visit Diagnoses Not on filedocumented in this encounter Care Teams Kaiako Kura Tuarua Relationship Specialty Start Date End Date Linh Doty, DO 8 [facility] [address] [place] [address] PCP - General Family Medicine 11/04/22 Lizzie Alves PA-C [address] [place] [address], [facility] [address] [place] [address] Hospitalist Cardiology 05/27/23 Kaushik Mariscal MD 1401 [facility] [address] [place] [address] Rn Case Management Electrophysiology 11/18/23 documented as of this encounter
--- OUTSIDE RECORDS SUMMARY | 2024-07-27 14:23 | XMS_ITS | Encounter Summary ---
Author Organization [facility] Init iatives Address [address] [place] [address] Care Team Providers Care Patient Service Specialist Name Role Phone Linh Doty DO Primary Care Provider [phone] Lizzie Alves PA-C Unavailable [phone] Kaushik Mariscal MD Unavailable Encounter Details Date Type Department Care Team (Late st Contact Info) Description 07/19/2021 Transcribed Document [facility] [place] [place] Family Medicine [address] [place] [address] ProviderChad MD [address] [place] [address] Social History Tobacco Use Types Packs/Day Years Used Date Smoking Tobacco: Never Assessed Comments Unknown Sex and Gender Information Value Date Recorded Sex Assigned at Not on file Legal Sex Female 3:27 PM CDT Gender Identity Not on file Sexual Orientation Not on file documented as of this encounter Miscellaneous Notes * Cerner Conversion Note - Chad Merchant MD - 07/19/2021 1:35 PM CDT On Going Discharge Planning Entered On: 07/19/2021 13:36 EDT Performed On: 07/19/2021 13:35 EDT by Mayra Vann Engraver Signature Rn Care Management Progress Note Discharge Arrangements [...] Attend Multidisciplinary Rounds? : Yes Mayra Vann, Engraver Signature Rn - 07/19/2021 13:35 EDT Narrative Progress Note Narrative Progress Note : hd 3 elos 5 low rar patient is set up with [facility], Boticca to teach patient abx administration saturday 07/22. Per EP, plan to dc patient saturday 07/22. [place] for HH. Historical Progress Note : hd 2 low rar patient has orders from ID r/t iv abx and picc care but patient has no orders for PICC placement at this time, CM has reached out to ID. home abx orders sent to [facility]. patient will also need hh dcp- home with hh and iv abx Mayra Vann, Engraver Signature Rn - 07/18/21 16:10:37 Mayra Vann Engraver Signature Rn - 07/19/2021 13:35 EDT documented in this encounter Plan of Treatment Not on file documented as of this encounter Visit Diagnoses Not on filedocumented in this encounter Care Teams Patient Service Specialist Relationship Specialty Start Date End Date Linh Doty, 8 [facility] [address] [place] [address] PCP - General Family Medicine 11/04/22 Lizzie Alves PA-C [address] [facility] [address] [place] [address] Hospitalist Cardiology 05/27/23 Kaushik Mariscal MD 1401 [facility] [address] [place] [address] Organ Pipe Finisher Electrophysiology 11/18/23 documented as of this encounter
--- OUTSIDE RECORDS SUMMARY | 2024-07-27 14:23 | XMS_ITS | Encounter Summary ---
Author Organization [employer] [facility] Init iatives Address [address] [place] [address] Care Team Providers Care Nurses Medical Assistants Phlebotomists Name Role Phone Linh Doty DO Primary Care Provider [phone] Lizzie Alves PA-C Unavailable [phone] Kaushik Mariscal MD Unavailable Encounter Details Date Type Department Care Team (Late st Contact Info) Description 07/20/2021 Transcribed Document [facility] [place] [address] [place] [address] ProviderChad MD [address] [place] [address] Social History Tobacco Use Types Packs/Day Years Used Date Smoking Tobacco: Never Assessed Comments Unknown Sex and Gender Information Value Date Recorded Sex Assigned at Not on file Legal Sex Female 3:27 PM CDT Gender Identity Not on file Sexual Orientation Not on file documented as of this encounter Miscellaneous Notes * Cerner Conversion Note - Chad Merchant MD - 07/20/2021 11:32 AM CDT Patient: GAGAN MENDOZA Age: 55 [...] with bloody drainage. Patient was admitted to [facility] on 07/16/2021. Post generator change, [...] significant drainage. On 4 L nasal cannula. Review of Systems Constitutional: Weakness, No fever, [...] (Rocephin) - 2 Gram, IV Piggyback, Inj, [id number], infuse over 30 Minute(s), Routine DAPTOmycin + Sodium Chloride 0.9% intravenous solution 50 mL - 400 mg, IV Piggyback, Inj, [id number], infuse over 30 Minute(s), Routine Anticoagulant alteplase [...] Hypertension, Routine Physical Examination VS/Measurements Vital Measurements 07/20/2021 3:09 EDT Oxygen Flow Rate 4 Liter/Min , Vitals Signs (last 24 hrs) Last Charted Minimum Maximum Temp 97.8 (JUL 20 03:09) 97.8 (JUL 20 03:09) 98 (JUL 19 15:00) Mon HR 78 (JUL 20:18) 77 (JUL 20 03:09) 81 (JUL 19 16:48) Resp Rate 16 (JUL 19 16:00) 16 (JUL 19 16:00) 16 (JUL 19 16:00) SBP 98 (JUL 20:18) 97 (JUL 20 03:09) 105 (JUL 19 22:32) DBP 60 (JUL 20:18) L 59 (JUL 20 03:) 66 (JUL 19 16:48) MAP 71 (JUL 20:18) 71 (JUL 20 10:18) 78 (JUL 19 16:48) SpO2 L 91 (JUL 20:) L 91 (JUL 20:) 97 (JUL 19 16:48) General: Alert and oriented, Moderate distress. Eye: [...] No tenderness, No deformity. Integumentary: Warm, Dry, [place], No pallor, No rash, ICD site left chest with no obvious drainage, bandage in place, and did not see the device. Neurologic: Alert, Oriented, No focal deficits, Normal deep tendon reflexes. Cognition and Speech: Oriented, Speech clear and coherent. Psychiatric: Cooperative, Appropriate mood & affect. Review / Management Results review: Labs (Last four charted values) WBC 9.6 (MADELEINE 09) 8.4 (MADELEINE 08) 7.4 (MADELEINE 07) HB H 16.2 (MADELEINE 09) H 16.9 (MADELEINE 08) H 17.9 (MADELEINE 07) HCT H 52.1 [...] (MADELEINE 08) 3.5 (MADELEINE 07) , ACC: [id number] ORDER: Culture Wound and Stain DATE: 07/17/2021 08:34 SOURCE: Wound SITE: Chest L Reports Final 07/20/2021 07:46 No growth Pre 07/18/2021 06:24 No growth GS 07/17/2021 14:09 No cells seen No organisms seen. == ACC: [id number] ORDER: Culture Blood DATE: 07/16/2021 12:39 SOURCE: Blood SITE: Reports Pre 07/19/2021 16:01 No growth at 3 days. Pre 07/18/2021 16:01 No growth at 2 days. Pre 07/17/2021 16:02 No growth at 1 day. Pre 07/17/2021 06:01 Culture less than 24 Hrs old == ACC: [id number] ORDER: Culture Blood DATE: 07/16/2021 12:39 SOURCE: Blood SITE: Reports Pre 07/19/2021 16:01 No growth at 3 days. Pre 07/18/2021 16:01 No growth at 2 days. Pre 07/17/2021 16:02 No growth at 1 day. Pre 07/17/2021 06:01 Culture less than 24 Hrs old == . Chest x-ray results No Radiology Results Found Impression and Plan 1. ICD site drainage [...] with ongoing smoking. Exacerbation, new? 4. Hypercalcemia. Resolved. 5. Polycythemia probably related to underlying COPD. 6. Hypoalbuminemia, ongoing. 7. Acute hypoxic respiratory failure on 4 L/min on 07/17/2021, likely related to CHF or COPD exacerbation. 4 L/min on 07/18, and chest x-ray 07/16 with interstitial changes likely chronic per radiology.. 8. Hypocalcemia, worse. 9. Thrombocytopenia, worse. Plan: 1. Diagnostically, continue to follow [...] L/min nasal cannula on 07/17, 07/18, 07/19, 07/20. Plan has been discussed with patient including side effects of medications and line. At increased risk for side effects of abx and line, readmission, need for explant of device. D/w Isis Katz RN, cardiology. See next on Thursday, call sooner if needed. Case management orders: Please arrange for outpatient IV antibiotics at home or local facility with daptomycin 400 mg IV daily, ceftriaxone 2 g IV daily until 08/15/2021. Check CBC, CMP, CRP, CPK weekly while on IV antibiotics. Weekly PICC dressing changes. Fax orders to [phone], call [phone] with final arrangements. Hold rosuvastatin while on daptomycin to decrease risk of rhabdomyolysis. Arrange for follow-up with me in 1 week post discharge. Electronically signed by Reyna Da Silva Conversion Sales Account Representative Cerner at 05/27/2022 9:20 PM CDT documented in this encounter Plan of Treatment Not on file documented as of this encounter Visit Diagnoses Not on filedocumented in this encounter Care Teams Nurses Medical Assistants Phlebotomists Relationship Specialty Start Date End Date Linh Doty DO [address] [facility] [address] [place] [address] PCP - General Family Medicine 11/04/22 Lizzie Alves PA-C [address] [facility], [facility] [address] [place] [address] Hospitalist Cardiology 05/27/23 Kaushik Mariscal MD [address] [facility] [address] [place] [address] Repairer Typewriter Electrophysiology 11/18/23 documented as of this encounter
--- OUTSIDE RECORDS SUMMARY | 2024-07-27 14:23 | XMS_ITS | Encounter Summary ---
Author Organization [facility] Init iatives Address [address] [place] [address] Care Team Providers Care Electric Meter Repairer Apprentice Name Role Phone Linh Doty DO Primary Care Provider [phone] Lizzie Alves PA-C Unavailable [phone] Kaushik Mariscal MD Unavailable Encounter Details Date Type Department Care Team (Late st Contact Info) Description 07/23/2021 Transcribed Document [facility] [place] Medicine [address] [place] [address] ProviderChad MD [address] [place] [address] Social History Tobacco Use Types Packs/Day Years Used Date Smoking Tobacco: Never Assessed Comments Unknown Sex and Gender Information Value Date Recorded Sex Assigned at Not on file Legal Sex Female 3:27 PM CDT Gender Identity Not on file Sexual Orientation Not on file documented as of this encounter Miscellaneous Notes * Cerner Conversion Note - Chad ProviderMD - 07/23/2021 5:00 PM CDT Chart Check - Review Order Profile Entered On: 07/23/2021 18:55 EDT Performed On: 07/23/2021 17:00 EDT by Colin Kaur Non Emp RN Chart Check Powerplans Initiated/Discontinued as Appropriate : Yes All Active Orders Reviewed : Yes Colin Kaur Non Emp RN - 07/23/2021 18:55 EDT Electronically signed by Rekha [facility] Conversion Ward Service Supervisor Cerner at 05/27/2022 8:59 PM CDT documented in this encounter Plan of Treatment Not on file documented as of this encounter Visit Diagnoses Not on filedocumented in this encounter Care Teams Electric Meter Repairer Apprentice Relationship Specialty Start Date End Date Linh Doty, 8 [facility] [address] [place] [address] PCP - General Family Medicine 11/04/22 Lizzie Alves PA-C [address] [facility], [facility] [address] [place] [address] Hospitalist Cardiology 05/27/23 Kaushik Mariscal MD [address] [facility] [address] [place] [address] Business Administration Teacher Electrophysiology 11/18/23 documented as of this encounter
--- OUTSIDE RECORDS SUMMARY | 2024-07-27 14:23 | XMS_ITS | Encounter Summary ---
Author Organization [employer] Init iatives Address [address] [place] [address] Care Team Providers Care Licensed Prosthetist/Orthotist Name Role Phone Lalitha Linh Delilah DAVIS Primary Care Provider [phone] Lizzie Alves PA-C Unavailable [phone] Dion Mariscal MD Unavailable Encounter Details Date Type Department Care Team (Late st Contact Info) Description 07/19/[address] [facility] [place] [address] [place] [address] ProviderChad MD [address] [place] [address] Social History Tobacco Use Types Packs/Day Years Used Date Smoking Tobacco: Never Assessed Comments Unknown Sex and Gender Information Value Date Recorded Sex Assigned at Not on file Legal Sex Female 3:27 PM CDT Gender Identity Not on file Sexual Orientation Not on file documented as of this encounter Miscellaneous Notes * Cerner Conversion Note - Chad Merchant MD - 07/19/2021 9:36 AM CDT Patient: GAGAN MENDOZA Age: 55 years Sex: Female : 1965 Associated Diagnoses: None Author: DION MARISCAL MD-CAR Subjective NAD Health Status Allergies: Allergic Reactions (Selected) No Known Allergies, No qualifying data available Current medications: (Selected) Inpatient Medications Ordered Cathflo Activase: 1 mg, IV Push, 1-Time, PRN: Other (See Comment) Colace: 100 mg, Oral, BID, PRN: Constipation DAPTOmycin + Sodium Chloride 0.9% intravenous solution 50 mL: 400 mg, 8 mL, 116 mL/Hr, IV Piggyback, [id number] Florastor: 250 mg, Oral, BID Lasix: 20 mg, Oral, Daily MiraLax: 17 Gram, Oral, Daily, PRN: Constipation Normal Saline Flush: 10 mL, IntraCATHeter, Q12H Rocephin: 2 Gram, 100 mL/Hr, IV Piggyback, [id number] Roxicodone: 5 mg, Oral, Q4H, PRN: Pain [...] Refill(s) fluticasone 50 mcg/inh nasal spray: 2 [place], Nasal, Daily, PRN: Nasal Congestion, 16 Gram, [...] BID fluticasone 50 mcg/inh nasal spray 2 [place], PRN, Nasal, Daily folic acid 1 mg [...] Oral, BID cefTRIAXone 2 Gram, IV Piggyback, [id number] DAPTOmycin + NaCl 0.9% 50 mL 400 mg 8 mL, IV Piggyback, [id number] ergocalciferol 50,000 unit cap 50,000 Units 1 [...] 650 mg 2 Tab, Oral, Q4H alteplase 2 mg inj 1 mg, IV Push, 1-Time docusate sodium [...] All Problems High cholesterol / SNOMED CT 60645117 / Confirmed PAD (peripheral artery disease) / SNOMED CT 4094078127 / Confirmed Chronic CHF / SNOMED CT 893174049 / Confirmed Current smoker / SNOMED CT 418013165 / Confirmed Arteriosclerosis / SNOMED CT 949525465 / Confirmed Intermittent claudication / SNOMED CT 264459265 / Confirmed Cardiomyopathy / SNOMED CT 824591294 / Confirmed History of NH (myocardial infarction) / SNOMED CT 4652258221 / Confirmed Pacemaker / SNOMED CT 6399309815 / Confirmed Stented coronary artery / SNOMED CT 0933129960 / Confirmed Gout / SNOMED CT 281354515 / Confirmed At risk for sleep apnea / IMO 99918532 / Confirmed Resolved: History of ventricular tachycardia / SNOMED CT 4392268934 ICD placed in past for arrythmia. Canceled: HTN (hypertension) / SNOMED CT 7437484513 Canceled: COPD (chronic obstructive pulmonary disease) / SNOMED CT 56240463 Canceled: At risk for sleep apnea / IMO 03084512 Canceled: History of ischemic cardiomyopathy / SNOMED CT 782153002 Canceled: Abdominal aortic stenosis / SNOMED CT 335596057 Canceled: Shortness of breath / SNOMED CT 069522645, Active Problems (12) Arteriosclerosis At risk for sleep apnea Cardiomyopathy Chronic CHF Current smoker Gout High cholesterol History of NH (myocardial infarction) Intermittent claudication Pacemaker PAD (peripheral artery disease) Stented coronary artery Objective Intake and Output 24 hour intake, 24 hour output VS/Measurements Vitals Signs (last 24 hrs) Last Charted Minimum Maximum Temp 97.6 (JUL 19 05:56) 97.6 (JUL 19 05:56) 99.3 (JUL 19 02:00) Mon HR 75 (JUL 19 05:56) 75 (JUL 19 05:56) 97 (JUL 18 10:00) Resp Rate 18 (JUL 19 05:56) 15 [...] (JUL 19 05:56) 98 (JUL 18 22:15) Results Review Telemetry - SR General: Alert [...] Normal range of motion. Integumentary: Warm, Dry, [place]. PPM site stable. Bruising around site but soft. No drainage noted Neurologic: Alert, Oriented. Psychiatric: Cooperative, Appropriate mood & affect. JUL 19 05:21 136 L 99 12 / 101 4.0 H 34 0.90 \ Telemetry/ECG I personally reviewed the last [...] cm AO Root:2.7 cm LVPWd: 1.46 cm Impression and Plan IMPRESSION: *gen change 07/01/2021 draining of hematoma at pocket *ICM s/p single chamber ICD implanted 07/2011 and gen change 07/01/2021 (SJM) *hx LV apical thrombus was on Eliquis - being held currently *CAD - hx JH to LAD (2007); occluded RCA at ostium; patent LAD stent (2011 *hx VT *HTN *HLD *PAD *Ongoing tobacco abuse PLAN; 07/19/2021 PPM site stable. old bruising at [...] sent from clinic to be admitted by [facility] for IV antibiotics. Will request blood cultures, consult ID, further plans to follow. Electronically signed by Rekha, [facility] Conversion Director Media Cerner at 05/27/2022 9:14 PM CDT documented in this encounter Plan of Treatment Not on file documented as of this encounter Visit Diagnoses Not on filedocumented in this encounter Care Teams Licensed Prosthetist/Orthotist Relationship Specialty Start Date End Date Linh Doty, DO [address] [facility] [address] [place] [address] PCP - General Family Medicine 11/04/22 Lizzie Alves PA-C [address] [facility], [facility] [address] [place] [address] Hospitalist Cardiology 05/27/23 Dion Mariscal MD [address] [facility] [address] [place] [address] Senior Java Programmer Analyst Electrophysiology 11/18/23 documented as of this encounter
--- OUTSIDE RECORDS SUMMARY | 2024-07-27 14:24 | XMS_ITS | Encounter Summary ---
Author Organization [facility] [employer] [facility] Init iatives Address [address] [place] [address] Care Team Providers Care Green Coffee Blender Name Role Phone Linh Doty DO Primary Care Provider [phone] Lizzie Alves PA-C Unavailable [phone] Dion Mariscal MD Unavailable Encounter Details Date Type Department Care Team (Late st Contact Info) Description 07/21/2021 Transcribed Document [facility] [place] [facility] [place] [address] ProviderChad MD [address] [place] [address] Social History Tobacco Use Types Packs/Day Years Used Date Smoking Tobacco: Never Assessed Comments Unknown Sex and Gender Information Value Date Recorded Sex Assigned at Not on file Legal Sex Female 3:27 PM CDT Gender Identity Not on file Sexual Orientation Not on file documented as of this encounter Miscellaneous Notes * Cerner Conversion Note - Chad Merchant MD - 07/21/2021 12:20 PM CDT Patient: GAGAN MENDOZA Age: 55 [...] daptomycin to decrease risk of rhabdomyolysis. Dispo: possible DC home tomorrow VTE Prophylaxis - Medical Sequential Compression Device Start: 07/19/21 9:35:00 EDT, Bilateral, Continuous Order (DION MARISCAL) Subjective No changes Constitutional: [No fevers, chills, sweats] Eye: [No recent visual problems] ENMT: [No ear pain, nasal congestion, sore throat] Respiratory: [No shortness of breath, cough] Cardiovascular: [No Chest pain, palpitations, syncope] Gastrointestinal: [No nausea, vomiting, diarrhea] Genitourinary: [No hematuria] Vital Signs T: 36.4 ??C TMIN: 36.4 ??C TMAX: 36.8 ??C HR: 80(Monitored) RR: 20 BP: 98/58 SpO2: 90% Oxygen Settings (Last) Oxygen Therapy Mode: Nasal cannula (07/21/21 09:11:00) Oxygen Flow Rate: 2 Liter/Min (07/21/21 09:11:00) Intake & Output Totals Last 24 Hours (7a-7a) Input Total: 118 mL Output Total: 0 mL Balance: 118 mL Physical Exam General: [alert , well [...] 3 mL, Nebulized Inhalation , Q8H ergocalciferol, [id number] Units= 1 Cap, Oral, Weekly Florastor, 250 [...] Lab Results Test Name Test Result Date/Time Sodium Level 135 mmol/L (Low) 07/21/2021 04:12 EDT Potassium Level 4.3 mmol/L 07/21/2021 04:12 EDT Chloride Level 102 mmol/L 07/21/2021 04:12 EDT Carbon Dioxide Level 32 mmol/L 07/21/2021 04:12 EDT Anion Gap 5 (Low) 07/21/2021 04:12 EDT Glucose Level 103 mg/dL 07/21/2021 04:12 EDT Blood Urea Nitrogen 19 mg/dL 07/21/2021 04:12 EDT Creatinine Level 0.70 mg/dL 07/21/2021 04:12 EDT eGFR >60 mL/min/1.73m2 07/21/2021 04:12 EDT eGFR NonAfrican >60 mL/min/1.73m2 07/21/2021 04:12 EDT Bun/Creatinine 27.1 (High) 07/21/2021 04:12 EDT Calcium Level 10.3 mg/dL (High) 07/21/2021 04:12 EDT Protein Total 6.8 Gram/dL 07/21/2021 04:12 EDT Albumin Level 2.9 Gram/dL (Low) 07/21/2021 04:12 EDT Globulin 3.9 Gram/dL 07/21/2021 04:12 EDT A/G Ratio 0.7 (Low) 07/21/2021 04:12 EDT Bilirubin Total 0.3 mg/dL 07/21/2021 04:12 EDT Alk Phos 106 Units/Liter 07/21/2021 04:12 EDT AST 24 Units/Liter 07/21/2021 04:12 EDT ALT 24 Units/Liter 07/21/2021 04:12 EDT CK 35 Units/Liter 07/21/2021 04:12 EDT WBC 6.6 K/uL 07/21/2021 04:12 EDT RBC 4.87 Million/uL 07/21/2021 04:12 EDT Hgb 15.2 g/dL 07/21/2021 04:12 EDT Hct 48.8 % (High) 07/21/2021 04:12 EDT MCV 100.2 fL (High) 07/21/2021 04:12 EDT MCH 31.2 pg 07/21/2021 04:12 EDT MCHC 31.1 Gram/dL (Low) 07/21/2021 04:12 EDT Platelet Count 105 K/uL (Low) 07/21/2021 04:12 EDT MPV 11.2 fL 07/21/2021 04:12 EDT RDW 16.3 % (High) 07/21/2021 04:12 EDT Neutrophil Percent Man 47 % (Low) 07/21/2021 04:12 EDT Lymph Percent Man 47 % (High) 07/21/2021 04:12 EDT Rolette Percent Man 3 % (Low) 07/21/2021 04:12 EDT Eos Percent Man 3 % 07/21/2021 04:12 EDT Baso Percent Man 0 % 07/21/2021 04:12 EDT RBC Morphology Abnormal 07/21/2021 04:12 EDT Anisocytosis 1+ (Abnormal) 07/21/2021 04:12 EDT Stomatocytes 1+ (Abnormal) 07/21/2021 04:[address] Estimate Decreased (Abnormal) 07/21/2021 04:12 EDT Electronically signed by Rekha [facility] Conversion Automobile Mechanic Assistant Cerner at 05/27/2022 9:14 PM CDT documented in this encounter Plan of Treatment Not on file documented as of this encounter Visit Diagnoses Not on filedocumented in this encounter Care Teams Green Coffee Blender Relationship Specialty Start Date End Date Linh Doty, DO 8 [facility] [address] [place] [address] PCP - General Family Medicine 11/04/22 Lizzie Alves PA-C [address] [facility], [facility] [address] [place] [address] Hospitalist Cardiology 05/27/23 Dion Mariscal MD [address] [facility] [address] [place] [address] Guide Domestic Tour Electrophysiology 11/18/23 documented as of this encounter
--- OUTSIDE RECORDS SUMMARY | 2024-07-27 14:24 | XMS_ITS | Encounter Summary ---
Author Organization [employer] [facility] Init iatives Address [address] [place] [address] Care Team Providers Care Clinical Product Manager Name Role Phone Linh Doty DO Primary Care Provider [phone] Lizzie Alves PA-C Unavailable [phone] Dion Mariscal MD Unavailable Encounter Details Date Type Department Care Team (Late st Contact Info) Description 07/22/2021 Transcribed Document [facility] [place] [facility] [place] [facility] [place] [address] ProviderChad MD [address] [place] [address] Social History Tobacco Use Types Packs/Day Years Used Date Smoking Tobacco: Never Assessed Comments Unknown Sex and Gender Information Value Date Recorded Sex Assigned at Not on file Legal Sex Female 3:27 PM CDT Gender Identity Not on file Sexual Orientation Not on file documented as of this encounter Miscellaneous Notes * Cerner Conversion Note - Chad ProviderMD - 07/22/2021 1:42 PM CDT Patient: GAGAN MENDOZA Age: 55 [...] EDT, Bilateral, Continuous Order (DION MARISCAL) Subjective Significant symptoms this morning. Plan for pacemaker extraction on Thursday Constitutional: [No fevers, chills, sweats] Eye: [No recent visual problems] ENMT: [No ear pain, nasal congestion, sore throat] Respiratory: [No shortness of breath, cough] Cardiovascular: [No Chest pain, palpitations, syncope] Gastrointestinal: [No nausea, vomiting, diarrhea] Genitourinary: [No hematuria] Vital Signs T: 36.4 ??C TMIN: 36.1 ??C TMAX: 36.7 ??C HR: 84(Monitored) RR: 18 BP: 110/64 SpO2: 91% Oxygen Settings (Last) Oxygen Therapy Mode: Nasal cannula (07/22/21 11:23:00) Oxygen Flow Rate: 4 Liter/Min (07/22/21 11:23:00) Intake & Output Totals Last 24 Hours (7a-7a) Input Total: 689 mL Output Total: 600 mL Balance: 89 mL Physical Exam General: [alert , well [...] 3 mL, Nebulized Inhalation , Q8H ergocalciferol, 69252 Units= 1 Cap, Oral, Weekly Florastor, 250 [...] IV Push, Q4H, PRN Electronically signed by Rekha [facility] Conversion Basket Assembler Kalia at 05/27/2022 9:03 PM CDT documented in this encounter Plan of Treatment Not on file documented as of this encounter Visit Diagnoses Not on filedocumented in this encounter Care Teams Clinical Product Manager Relationship Specialty Start Date End Date Linh Doty, DO 8 [facility] [address] [place] [address] PCP - General Family Medicine 11/04/22 Lizzie Alves PA-C [address] [place] [address], [facility] [address] [place] [address] Hospitalist Cardiology 05/27/23 Dion Mariscal MD [address] [facility] [address] [place] [address] Bar Back Electrophysiology 11/18/23 documented as of this encounter
--- OUTSIDE RECORDS SUMMARY | 2024-07-27 14:24 | XMS_ITS | Clinical Summary ---
Author Organization [facility] Address [address] [place] [address] Care Team Providers Care Shop Blacksmith Name Role Phone Annette Melaranicaryl Mazariegos APRN Primary Care Provider [phone] Allergies No known active allergies Medications albuterol [...] [facility] Head, Neck & Respiratory [address] [facility], 2nd [place] [address] Kia Humphries GC Encounter for nonprocreative genetic counseling (Primary Dx) 07/13/2024 Travel 07/06/2024 Telephone [facility] Genetic Counseling [address] [facility], 1st [place] [address] Kia Humphries GC Genetic Counseling Intake 06/02/2024 2:00 PM EDT Consult Medical Office Building Surgical Specialties [address] [facility], [address] [place] [address] Amish Escobedo MD Primary hyperparathyroidism (CMS/HCC) 06/02/2024 Orders Only External Location [address] [place] [address] Provider, External 06/02/2024 Travel 06/01/2024 Abstract Medical Office Building Surgical Specialties [address] [facility], [address] [place] [address] Gamaliel Zaragoza 05/30/2024 1:20 PM EDT Office Visit [facility] Endocrinology [address] [place] [address] Natalia Alves MD Primary hyperparathyroidism [...] Recorded Patient Health Questionnaire-2 Score 0 05/30/2024 [facility] [place] of Occupat ional Health - Occupational Stress [...] 2:20 PM EDT Office Visit Kiko Osorio [facility] Endocrinology [address] [place] [address] Natalia Alves MD [address] [place] [address] 12/08/2024 3:00 PM EDT Office Visit Medical Office Building Surgical Specialties [address] [facility], [address] [place] [address] Amish Escobedo MD [address] [facility] [address] [place] [address] Health Maintenance Due Date Last Done Comments [facility]-HIV Screening 1964 [facility]-Hepatitis C Screening 1964 [facility]-Medicare Annual Wellness (AWV) 1964 [facility]-Infant/Child/Adol SDOH Screenings 1964 [facility]- SDOH Screenings 1982 [facility]-Adult SDOH Screenings 1982 [facility]-Pneumococcal Vaccine: 50 + Years (1 of 2 - PCV) 07/28/1983 [facility]-Pap Smear 1985 [facility]-Cervical Cancer Screening 1994 [facility]-HPV/Cotest 1994 CT Colonography 2009 Colonoscopy 2009 FIT-DNA 2009 FIT 2009 FOBT 2009 Sigmoidoscopy 2009 [facility]-Colorectal Cancer Screening 2009 [facility]-Breast Cancer Screening 2014 [facility]-Zoster Vaccines (2 of 2) 04/23/2020 02/27/2020 [id number] Vaccine (3 - 2023- season) 2023 12/22/2020, 04/28/2020 [facility]-RSV Vaccine: 60+ Years o r (1 - Risk 60-74 years 1-dose series) 2024 [facility]-Bone Density Scan 12/17/2024 12/18/2023 , 11/30/2023 [...] Region Laterality Modality L-spine Radiographic Carlee ging Natalia Alves MD IMG DXA PROCEDURES Final Resul t from Last 3 Months or Most Recently Relevant to Health Maintenance Insurance [employer] MEDICARE Care Teams Shop Blacksmith Relationship Specialty Start Date End Date Felicitas Melara APRN [address] [place] [address] PCP - General 01/29/24
--- OUTSIDE RECORDS SUMMARY | 2024-07-27 14:24 | XMS_ITS | Encounter Summary ---
Author Organization [employer] [facility] Address [address] [place] [address] Care Team Providers Care Multi Operation Forming Machine Setter Name Role Phone Linh Doty DO Primary Care Provider [phone] Lizzie Alves PA-C Unavailable [phone] Kaushik Mariscal MD Unavailable Encounter Details Date Type Department Care Team (Late st Contact Info) Description 07/21/2021 Transcribed Document [facility] [place] [address] [place] [address] ProviderChad MD [address] [place] [address] Social History Tobacco Use Types Packs/Day Years Used Date Smoking Tobacco: Never Assessed Comments Unknown Sex and Gender Information Value Date Recorded Sex Assigned at Not on file Legal Sex Female 3:27 PM CDT Gender Identity Not on file Sexual Orientation Not on file documented as of this encounter Miscellaneous Notes * Cerner Conversion Note - Chad ProviderMD - 07/21/2021 1:06 AM CDT Education-Wound Care Entered On: 07/21/2021 1:13 EDT Performed On: 07/21/2021 1:06 EDT by ELDER WILSON RN Teaching/Learning Assessment Barriers To Learning : None evident Individuals Taught : Patient Readiness to Learn : Cooperative Readiness to Learn : Explanation Learning Style Preferences Patient : Verbal explanation Learning Style Preferences Family : Verbal explanation ELDER WILSON RN - 07/21/2021 1:13 EDT documented in this encounter Plan of Treatment Not on file documented as of this encounter Visit Diagnoses Not on filedocumented in this encounter Care Teams Multi Operation Forming Machine Setter Relationship Specialty Start Date End Date Linh Doty, DO [address] [facility] [address] [place] [address] PCP - General Family Medicine 11/04/22 Lizzie Alves PA-C [address] [place] [address], [facility] [address] [place] [address] Hospitalist Cardiology 05/27/23 Kaushik Mariscal MD [address] [facility] [address] [place] [address] Reimbursement Analyst Electrophysiology 11/18/23 documented as of this encounter
--- OUTSIDE RECORDS SUMMARY | 2024-07-27 14:24 | XMS_ITS | Encounter Summary ---
Author Organization [facility] [facility] Init iatives Address [address] [place] [address] Care Team Providers Care Coater Helper Name Role Phone Linh Doty DO Primary Care Provider [phone] Lizzie Alves PA-C Unavailable [phone] Kaushik Mariscal MD Unavailable Encounter Details Date Type Department Care Team (Late st Contact Info) Description 07/22/2021 Transcribed Document [facility] [place] [facility] [place] [address] ProviderChad MD [address] [place] [address] Social History Tobacco Use Types Packs/Day Years Used Date Smoking Tobacco: Never Assessed Comments Unknown Sex and Gender Information Value Date Recorded Sex Assigned at Not on file Legal Sex Female 3:27 PM CDT Gender Identity Not on file Sexual Orientation Not on file documented as of this encounter Miscellaneous Notes * Cerner Conversion Note - Chad Merchant MD - 07/22/2021 4:49 PM CDT UM Authorization Entered On: 07/22/2021 16:54 EDT Performed On: 07/22/2021 16:49 EDT by EZEKIEL PHILLIPS RN Primary Insurance Authorization Authorization and Policy Numbers : Insurance 1 Health Plan: [employer] MEDICARE Policy Number: [id number] Authorization Number: Insurance Primary Name : [employer] MED[employer] Policy Number: [id number] Authorization Status-Primary : Admit approved Reference Number-Primary : [id number] Authorization Number-Primary : [id number] Number of Days Authorized-Primary : 5 Day(s) Authorized Service Begin Date-Primary : 07/16/2021 EDT Authorized Service End Date-Primary : 07/21/2021 EDT Authorization Comments-Primary : 07/20-07/22 CLINICALS FAXED VIA [employer] Historical Authorization Comments-Primary : Comment 1: PER PORTAL IP APPROVED FOR 07/16 UP TO BUT NOT INCLUDING 07/22 (Khushi Jones, Rn-Utilization Review 07/19/2021 13:56) Comment 2: UNDER REVIEW PER WC PORTAL (Khushi Jones, Rn-Utilization Review 07/19/2021 09:22) Comment 3: CLINICAL FAXED VIA [employer] (Khushi Jones, Rn-Utilization Review 07/17/2021 15:22) Comment 4: REF# PER GUME. CLINICAL FAXED VIA [employer] (Khushi Jones Rn-Utilization Review 07/17/2021 15:17) EZEKIEL PHILLIPS RN - 07/22/2021 16:49 EDT Electronically signed by Rekha [facility] Conversion Stroboscope Operator Cerner at 05/27/2022 9:05 PM CDT documented in this encounter Plan of Treatment Not on file documented as of this encounter Visit Diagnoses Not on filedocumented in this encounter Care Teams Coater Helper Relationship Specialty Start Date End Date Linh Doty, DO 8 [facility] [address] [place] [address] PCP - General Family Medicine 11/04/22 Lizzie Alves PA-C [address] [facility], [facility] [address] [place] [address] Hospitalist Cardiology 05/27/23 Kaushik Mariscal MD [address] [facility] [address] [place] [address] Homemaking Rehabilitation Consultant Electrophysiology 11/18/23 documented as of this encounter
--- OUTSIDE RECORDS SUMMARY | 2024-07-27 14:24 | XMS_ITS | Data Portability ---
Author Organization [place] [facility] Address [address] [place] [address] Assessment Encounter Date Assessment Date Assessment LastModified by Organization Details LastModified Time 06/12/2023 06/12/2023 PULMONARY CONSULTATION HISTORICAL : This 57 year old female was admitted to the facility on 06/05/2023 after hospitalization at where she presented with altered mental status [...] the facility on 06/05/2023 after hospitalization at where she presented with altered mental status [...] By Organization Details Last Modified Time 06/19/2023 [id number] CONSENT FOR ENROLLMENT IN PRINCIPAL CARE MANAGEMENT: [...] though PCM services will not involve a [id number] meeting with a provider. [email or web address] Not available [...] SNOMED-CT Code Diagnosis ICD10 Code Diagnosis Note [id number] Dodie Cummins NP [facility] [address] [place] [address] 06/12/2023 20:51:54 06/19/2023 11:40:30 [id number] Dodie Cummins NP [facility] [address] [place] [address] 06/19/2023 09:57:05 06/22/2023 10:44:29 Health Concerns Section Related Observation LastModified by Organization Detai ls LastModified Time None Recorded Concern Status LastModified by Organization Details LastModified Time None Recorded Advance Directives Directive None Recorded Payers Insurance Date Sequence Insurance Name Policy Number Policy Harding Covered Member ID Harding Member ID Guarantor Name 06/19/2023 1 [employer] (MEDICARE REPLACEMENT/ ADVANTAGE - HMO) Lena Chandler [id number] Lena Chandler 06/12/2023 2 [place] Lena Chandler [id number] Lena Chandler OBGyn Episode No OBEpisode recorded.
--- OUTSIDE RECORDS SUMMARY | 2024-07-27 14:24 | XMS_ITS | Encounter Summary ---
Author Organization [facility] Address [address] [place] [address] Care Team Providers Care Pile Driver Operator Name Role Phone Linh Doty DO Primary Care Provider [phone] Lizzie Alves PA-C Unavailable [phone] Kaushik Mariscal MD Unavailable Encounter Details Date Type Department Care Team (Late st Contact Info) Description 07/22/2021 Transcribed Document [facility] [place] Family [place] [address] [place] [address] ProviderChad MD [address] [place] [address] Social History Tobacco Use Types Packs/Day Years Used Date Smoking Tobacco: Never Assessed Comments Unknown Sex and Gender Information Value Date Recorded Sex Assigned at Not on file Legal Sex Female 3:27 PM CDT Gender Identity Not on file Sexual Orientation Not on file documented as of this encounter Miscellaneous Notes * Cerner Conversion Note - Chad Merchant MD - 07/22/2021 5:00 AM CDT Chart Check - Review Order Profile Entered On: 07/22/2021 7:47 EDT Performed On: 07/22/2021 5:00 EDT by Larissa Dubois RN-PATIENT CARE BEDSIDE NON-EXEMPT Chart Check Powerplans Initiated/Discontinued as Appropriate : Yes All Active Orders Reviewed : Yes Larissa Dubois RN-PATIENT CARE BEDSIDE NON-EXEMPT - 07/22/2021 7:47 EDT Electronically signed by Rekha [facility] Conversion Group Exercise Instructor Cerner at 05/27/2022 9:08 PM CDT documented in this encounter Plan of Treatment Not on file documented as of this encounter Visit Diagnoses Not on filedocumented in this encounter Care Teams Pile Driver Operator Relationship Specialty Start Date End Date Linh Doty, DO 8 [facility] [address] [place] [address] PCP - General Family Medicine 11/04/22 Lizzie Alves PA-C [address] [place] [address], [facility] [address] [place] [address] Hospitalist Cardiology 05/27/23 Kaushik Mariscal MD [address] [facility] [address] [place] [address] Front Maker Electrophysiology 11/18/23 documented as of this encounter
--- OUTSIDE RECORDS SUMMARY | 2024-07-27 14:24 | XMS_ITS | Encounter Summary ---
Author Organization [facility] Address [address] [place] [address] Care Team Providers Care Machine Shop Inspector Name Role Phone Linh Doty DO Primary Care Provider [phone] Lizzie Alves PA-C Unavailable [phone] Kaushik Mariscal MD Unavailable Encounter Details Date Type Department Care Team (Late st Contact Info) Description 07/21/2021 Transcribed Document [facility] [place] [address] [place] [address] ProviderChad MD [address] [place] [address] Social History Tobacco Use Types Packs/Day Years Used Date Smoking Tobacco: Never Assessed Comments Unknown Sex and Gender Information Value Date Recorded Sex Assigned at Not on file Legal Sex Female 3:27 PM CDT Gender Identity Not on file Sexual Orientation Not on file documented as of this encounter Miscellaneous Notes * Cerner Conversion Note - Chad ProviderMD - 07/21/2021 5:00 AM CDT Chart Check - Review Order Profile Entered On: 07/21/2021 6:17 EDT Performed On: 07/21/2021 5:00 EDT by ELDER WILSON RN Chart Check All Active Orders Reviewed : Yes ELDER WILSON RN - 07/21/2021 6:17 EDT documented in this encounter Plan of Treatment Not on file documented as of this encounter Visit Diagnoses Not on filedocumented in this encounter Care Teams Machine Shop Inspector Relationship Specialty Start Date End Date Lnih Doty, [address] [facility] [address] [place] [address] PCP - General Family Medicine 11/04/22 Lizzie Alves PA-C [address] [facility], [facility] [address] [place] [address] Hospitalist Cardiology 05/27/23 Kaushik Mariscal MD [address] [facility] [address] [place] [address] Control Panel Operator Crude Unit Electrophysiology 11/18/23 documented as of this encounter
--- OUTSIDE RECORDS SUMMARY | 2024-07-27 14:24 | XMS_ITS | Encounter Summary ---
Author Organization [facility] Address [address] [place] [address] Care Team Providers Care Women Nurse Name Role Phone Linh Doty DO Primary Care Provider [phone] Lizzie Alves PA-C Unavailable [phone] Kaushik Mariscal MD Unavailable Encounter Details Date Type Department Care Team (Late st Contact Info) Description 07/22/2021 Transcribed Document [facility] [place] [place] [address] ProviderChad MD [address] [place] [address] Social History Tobacco Use Types Packs/Day Years Used Date Smoking Tobacco: Never Assessed Comments Unknown Sex and Gender Information Value Date Recorded Sex Assigned at Not on file Legal Sex Female 3:27 PM CDT Gender Identity Not on file Sexual Orientation Not on file documented as of this encounter Miscellaneous Notes * Cerner Conversion Note - Chad Merchant MD - 07/22/2021 3:33 PM CDT UM Authorization Entered On: 07/22/2021 15:33 EDT Performed On: 07/22/2021 15:33 EDT by Bonita Katz, Spring Upholsterer Primary Insurance Authorization Authorization and Policy Numbers : Insurance 1 Health Plan: [employer] MEDICARE Policy Number: [id number] Authorization Number: Insurance Primary Name : [employer] GroupCARE MANAGED MEDICARE Policy Number: [id number] Authorization Status-Primary : Admit approved Reference Number-Primary : [id number] Authorization Number-Primary : [id number] Number of Days Authorized-Primary : 5 Day(s) Authorized Service Begin Date-Primary : 07/16/2021 EDT Authorized Service End Date-Primary : 07/21/2021 EDT Historical Authorization Comments-Primary : Comment 1: PER PORTAL IP APPROVED FOR 07/16 UP TO BUT NOT INCLUDING 07/22 (Khushi Jones, Rn-Utilization Review 07/19/2021 13:56) Comment 2: UNDER REVIEW PER WC PORTAL (Khushi Jones, Rn-Utilization Review 07/19/2021 09:22) Comment 3: CLINICAL FAXED VIA [employer] (Khushi Jones, Rn-Utilization Review 07/17/2021 15:22) Comment 4: REF# PER GUME. CLINICAL FAXED VIA [employer] (Khushi Jones, Rn-Utilization Review 07/17/2021 15:17) Bonita Katz, Spring Upholsterer - 07/22/2021 15:33 EDT documented in this encounter Plan of Treatment Not on file documented as of this encounter Visit Diagnoses Not on filedocumented in this encounter Care Teams Women Nurse Relationship Specialty Start Date End Date Linh Doty, DO 8 [facility] [address] [place] [address] PCP - General Family Medicine 11/04/22 Lizzie Alves PA-C [address] [facility], [facility] [address] [place] [address] Hospitalist Cardiology 05/27/23 Kaushik Mariscal MD [address] [facility] [address] [place] [address] Salesperson Men'S Furnishings Electrophysiology 11/18/23 documented as of this encounter
[2024-07-27 14:30] VITALS: BP 103/61; PULSE 81; RESP 20; TEMP 37.1; O2SAT 94
[2024-07-27] MEDS: DENOSUMAB 60 MG/ML SYRINGE SUBCUT (14:30)
== END 2024-07-27 14:41 | disposition home or self-care (01) ==
LOC: INF 14:17
PROVIDERS: PCP Nurse Practitioner Family; Visit Provider Nurse Practitioner Family
DX: M81.0 Age-related osteoporosis without current pathological fracture (principal)
CPT/HCPCS: 96372; J0897

== ENCOUNTER 2024-08-23 13:27 | Outpatient (CLI) | payer MEDICARE, SELFPAY ==
--- OUTSIDE RECORDS SUMMARY | 2024-06-13 06:00 | XMS_ITS | Encounter Summary ---
Author Organization [employer] ([place], [place], [place], [place]) Address [address] [place] [address] Care Team Providers Care Inside Meter Tester Name Role Phone Lalitha Linh Delilah DAVIS Primary Care Provider [phone] Lizzie Alves PA-C Unavailable [phone] Kaushik Mariscal MD Unavailable Reason for Visit * Reason Comments Pacemaker /ICD Home Monitoring Encounter Details Date Type Department Care Team (Late st Contact Info) Description 06/13/2024 6:00 AM EDT Clinical Support [facility] Electrophysiology [address] [place] [address] Kaushik Mariscal MD [address] [facility] [address] [place] [address] Encounter for adjustment or management of cardiac [...] drink = 0.6 oz pur e alcohol) Family and Community Support Answer Geremias e Recorded Help with Day to Day Activities Not on file 02/27/2023 Feeling Lonely or Isolated Not on file 02/27 Educational Attainment Answer Date Mendez rded Speak language other than Senegalese at home Not on file 02/27/2023 Want help with school or training Not on file 02/27/2023 Substance Use Answer Date Recorded Used [...] (HCC) documented in this encounter Care Teams Inside Meter Tester Relationship Specialty Start Date End Date Linh Doty, [address] [facility] [address] [place] [address] PCP - General Family Medicine 11/04/22 Lizzie Alves PA-C [address] [facility], [facility] [address] [place] [address] Hospitalist Cardiology 05/27/23 Kaushik Mariscal MD [address] [facility] [address] [place] [address] Medical Record Administrator Electrophysiology 11/18/23 documented as of this encounter
--- OUTSIDE RECORDS SUMMARY | 2024-07-11 06:00 | XMS_ITS | Encounter Summary ---
Author Organization [email or web address] ([place], [place], [place], [place]) Address [address] [place] [address] Care Team Providers Care Cruise Agent Name Role Phone Linh Doty DO Primary Care Provider Lizzie Alves PA-C Unavailable [phone] Kaushik Mariscal MD Unavailable Reason for Visit * Reason Comments Pacemaker /ICD Home Monitoring Encounter Details Date Type Department Care Team (Late st Contact Info) Description 07/11/2024 6:00 AM EDT Clinical Support [facility] Electrophysiology [address] [place] [address] Louise Gottlieb MD [address] [facility] [address] [place] [address] Encounter for adjustment or management of cardiac [...] Date Mendez rded Speak language other than Albanian at home Not on file 02/27/2023 Want [...] (HCC) documented in this encounter Care Teams Cruise Agent Relationship Specialty Start Date End Date Linh Doty, [address] [facility] [address] [place] [address] PCP - General Family Medicine 11/04/22 Lizzie Alves PA-C [address] [facility], [facility] [address] [place] [address] Hospitalist Cardiology 05/27/23 Kaushik Mariscal MD [address] [facility] [address] [place] [address] Family And Divorce Legal Assistant Electrophysiology 11/18/23 documented as of this encounter
--- OUTSIDE RECORDS SUMMARY | 2024-07-13 14:30 | XMS_ITS | Encounter Summary ---
Author Organization [facility] Address [address] [place] [id number] Care Team Providers Care Donkey Doctor Name Role Phone Felicitas Melara APRN Primary Care Provider [phone] Reason for Visit * Reason Comments Genetic Counseling * Consultation (Routine) - Closed Specialty Diagnoses / Procedures Referred By Contac t Referred To Contact Genetics Diagnoses Primary hyperparathyroidism (CMS/HCC) Amish Escobedo MD [address] [facility] [address] [place] [address] Phone: tel: fax: [facility] [address] [facility], [address]st [place] [address] Phone: tel: fax: Referral ID Status Reason Start Date Expiration Date V isits Requested Visits Authorized [id number] Closed Specialty Services Required 06/02/2024 12/02/2025 1 1 Encounter Details Date Type Department Care Team ([facility] Contact Info) Description 07/13/2024 2:30 PM EDT Clinical Support Pav CC Head, Neck & Respiratory [address] [facility]nd [place] [address] Kia Humphries, JOSE [address] [facility] [address] [place] [address] Encounter for nonprocreative genetic counseling (Primary Dx) Social History Tobacco Use Types [...] Recorded Patient Health Questionnaire-2 Score 0 05/30/2024 [facility] - Occupational Stress Questionnaire Answer Date Recorded [...] Recorded In the past 12 months has [employer] electric, gas, oil, or water company threatened to shut off services in your home? No 06/02/2024 Comments No Sex and Gender Information Value Date Recorded Sex Assigned at Not on file Legal Sex Female 8:21 PM EDT Gender Identity Not on file Sexual Orientation Not on file documented as of this encounter Miscellaneous Notes * Progress Notes - Kia Humphries, GC - 07/13/2024 2:30 PM EDT Images from the original note were not included. [facility] Clinical Cancer Genetics Consultation Patient Name: Lena Chandler Date of : 1965 Lena is a 58 y.o. female referred by for genetic counseling regarding a personal history of elevated parathyroid hormone levels. She was accompanied to her visit by her son. Per the records provided with the referral, Lena has been followed for concern of elevated parathyroid hormone in the setting of osteoporosis. 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 Ms. Chandler reports a personal history of an unknown gynecological cancer in year 2003 at age 38 s/p hysterectomy. Clinical summary documentation from [facility] report endocervical cancer. However, no pathology was available for review. Ms. Chandler provided the following personal history information: Menarche- 13 Total number of pregnancies- 2 Age at first live - 17 Hx - No Menopause status- postmenopausal control use- No Hormone replacement use- No Mammogram- Yes, mammo in 2024 Hx Breast Biopsy- No KARTHIK/BSO- Yes, in 2003 Colonoscopy- No Upper endoscopy- Yes Ms. Chandler was interested in discussing her risk for a hereditary cancer syndrome. FAMILY HISTORY (see pedigree below): - A mother with thyroid cancer at age 70, living at age 83 - A maternal uncle with an unknown cancer at an unknown age, at an unknown age - A maternal uncle with an unknown cancer at an unknown age, at an unknown age - A maternal uncle with non-Hodgkin's Lymphoma at an unknown age, at an unknown age - A maternal uncle with non-Hodgkin's Lymphoma at an unknown age, at an unknown age - A maternal aunt with thyroid at age 80, living at age 82 - A maternal first cousin with thyroid cancer at age 40, living at age 54 - A father with skin cancer at an unknown age, at age 84 - A paternal uncle with an unknown cancer at an unknown age, at an unknown age - A paternal aunt with an unknown cancer at an unknown age, at an unknown age - A paternal grandfather with skin cancer at an unknown age, at an unknown age We do not have the medical records regarding the diagnoses in the patient's family. She denies any Ashkenazi Islam ancestry or consanguinity. CANCER RISK ASSESSMENT AND GENETIC COUNSELING: We reviewed that Lena was referred for genetic counseling and consideration of genetic testing in light of her circuit walker's suspicion for FamilialHypocalciuric Hypercalcemia (FHH). In regard to FHH, we discussed that this condition tends to present in adulthood with elevated levels of calcium in the blood (hypercalcemia) with zizlxc-lf-izt level of calcium in the urine (hypercalciuria). Per NIH Stat Pearls, FHH is typically caused by a modified calcium-sensing mechanism where a higher serum calcium is needed to suppress parathyroid hormonerelease as the parathyroid glands are less sensitive to calcium. This can contribute to increased calcium and magnesium reabsorption in the kidney. If left untreated, severe hypercalcemia can lead tokidney disease and bone disease, such as osteoporosis. There are people born with a predisposition to developing FHH due to mutations in the APS2S1, CASR, and GNA11 genes. We also discussed the characteristics of sporadic cancer versus familial cancer versus hereditary cancer syndromes. Family histories typical of hereditary cancer syndromes usually include multiple close relatives diagnosed with the same type of cancer or cancer types that are part of a defined hereditary condition. Hereditary cancer is usually diagnosed at a younger than expected age (<50 years of age) and may involve more than one primary site in a single individual. Regarding the hereditary forms of cancer, autosomal dominant inheritance was reviewed. GENETIC TESTING: Ms. Chandler does not meet criteria for genetic testing. After reviewing the patient???s medical history, family history, and risk assessment, we discussed genetic testing options. Specifically, we talked about currently available multi-gene panel testing options, including benefitsand limitations. We discussed in detail that the patient's personal or family history does not meetspecific NCCN criteria for genetic testing at this time. Therefore it is unlikely insurance will cover the cost of genetic testing. We reviewed that the out of pocket cost for genetic testing for FHH/PHPTH through [facility] lab is $250. We also discussed the option of CancerNext-Expanded panel through [facility]. We explained possible results of genetic testing including positive, negative or a variant of uncertain significance, and briefly discussed the implications of each. ? Ms. Chandler declined genetic testing today. Ms. Chandler noted that she felt several of the cancers in her family were due to environmental exposures and that she was meeting with Dr. Falcon in August andwanted to discuss the option of FHH or hereditary cancer testing with him first. The patient knows to reach out to our office if/when they decide to pursue genetic testing. We discussed that genetic testing is always available to her and we encouraged her to contact our office in the future if she desires testing and we can coordinate that at that time. We encouraged her to also keep our office updated about any changes to her personal or family history as this may change our recommendations for genetic testing and/or management. MANAGEMENT RECOMMENDATIONS: Since the patient is not pursuing genetic testing at this time, the patient's recommendations for cancer screening and prevention should be based on their personal and family history of cancer. The patient should continue to follow all treatment and surveillance recommendations made to them by their physicians. The following recommendations have been developed to be inclusive of all gender and sexual identities to the greatest extent possible. Below, the terms male and female refer to sex assigned at . Suggested recommendations include: BREASTS: For women between the ages of 25 and 39 who do not have any signs of breast cancer (like alump, nipple changes, or breast pain) and are at average risk, the NCCN recommends being aware of how their breasts normally look and feel. This can include checking their breasts themselves each month. They should also see a doctor for a breast exam every 1 to 3 years. Starting at age 40, women should get a breast exam from a doctor at least once a year. They should also get a screening mammogram (ideally using a special kind of 3D imaging called tomosynthesis) every year. If a first-degree relative (parent, sibling, or child) has been diagnosed with breast cancer, females should have yearly mammograms beginning 10 years earlier than that relative's diagnosis or at age 40, whichever is younger. Females in the family can also be evaluated by a genetic counselor to see if they meet criteria for screening breast MRI in addition to mammography. The [place] Cancer Society guidelines state breast cancer screening with MRI should be considered in females with greater than a 20% lifetime chance of breast cancer as estimated by a model largely based on family history. This patient's lifetime risk was estimated to be 4.99% according to the Araseli model and 2.96% according to the MARILYN model. Therefore, she does not meet the guideline for annualscreening breast MRI. It has been shown that females with a 5-year risk estimate of more than 1.6% benefit from breast cancer risk reduction by taking tamoxifen or a similar drug for five years. Higher risk females who took tamoxifen reduced their chance to be diagnosed with breast cancer by about 50%. The patient's 5y risk of developing breast cancer calculated by the Araseli model is 0.91%. Therefore, she does not meetcriteria to discuss chemoprevention. OVARIES: Since the patient does not report having a family history of ovarian cancer, the patient is likely at average risk for ovarian cancer. Ovarian cancer screening has not been proven to be beneficial and is not routinely recommended for individuals at average risk. UTERUS: Uterine cancer screening is not recommended for individuals at average to increased risk ofuterine cancer. Screening has only been proven beneficial for individuals at very high risk of uterine cancer (40-60%). All patients are encouraged to know the signs and symptoms of uterine cancer. The most common symptom is abnormal vaginal bleeding. In post menopausal individuals, all vaginal bleeding, regardless of amount, should be evaluated by a physician. COLON: Colonoscopy every 10 years beginning at age 45. The [place] Cancer Society (ACS) now recommends that adults aged 45 years and older with an average risk of CRC undergo regular screening with either a high-sensitivity stool-based test or a structural (visual) examination, depending on patient preference and availability. All positive results on non-colonoscopy screening tests should be followed up with timely colonoscopy. If a first degree relative is diagnosed with colon cancer or advanced polyps, individuals should have a colonoscopy every 5 years beginning 10 years earlier than thatrelative???s diagnosis, or at age 40, whichever is younger or sooner based on colonoscopy findings. PROSTATE: Males in the family should receive prostate cancer screening including annual prostate exam and PSA blood test beginning at age 50 (age 40 if a first degree relative is diagnosed with prostate cancer). -Wallisian males have a higher chance to have prostate cancer than males. Therefore, -Wallisian males should have yearly prostate cancer screening including rectal exam and PSA blood test starting at age 40. SKIN: The patient reported a family history of skin cancer, therefore it is recommended that the patient have annual skin examinations by a metal box maker. LUNG: The NCCN says that people should talk with their doctor about the benefits and limitations oflung cancer screening if they are at least 50 years old, have smoked for 20 years or more and/or have smoked the equivalent of a lxww-kor-dxj for 20 years, and if they are healthy enough to get treatment if cancer is found. If someone chooses to get screened, doctors recommend a special kind of scan called a low-dose CT (LDCT) - a regular chest x-ray is not recommended to screen for lung cancer. Screening is not a replacement for quitting smoking. Anyone who smokes cigarettes or uses other tobacco should try to stop - help to quit smoking is available at www.smokefree.gov. For more information, call the [facility] Lung Cancer Screening in school suspension coordinator at [phone] (617-BDA-USMJ) or [phone], or email [email or web address]. You must have a primary care provider to take part in the lung cancer screening program. In addition to the preceding specific screening recommendations, we encourage this patient and their family members continue to receive routine cancer surveillance as recommended to members of the general population. These screening recommendations are based on the patient???s personal and family hi story as provided and may change in the future should new information be obtained or if the patientchooses to pursue genetic testing in the future. The patient is encouraged to contact our office ifthere is any change in their health status or the health status of their family members, especiallyif there are additional cancer diagnoses. PLAN: 1. Ms. Chandler declined genetic testing today and noted that she would like to discuss with Dr. Falcon prior to pursuing testing. 2. Genetic testing is always available to the patient and the patient can contact our office in thefuture if they desire testing and we can coordinate that at that time. We encouraged the patient toalso keep our office updated about any changes to their personal or family history as this may change our recommendations for genetic testing and/or management. It was a pleasure to meet with this patient and I remain available to the patient, their physicians, and family for future questions or concerns. I can be reached at [phone]. Total time regarding patient care was approximately 75 minutes. Written information regarding genetic testing was given to the patient at the time of their appointment. documented in this encounter Plan of Treatment Upcoming Encounters Date Type Department Care Team (Late st Contact Info) Description 11/30/2024 2:20 PM EDT [facility] [address] [place] [address] Natalia Alves MD [address] [facility] [address] [place] [address] 12/08/2024 3:00 PM EDT Office Visit Medical Office Building Surgical Specialties [address] [facility] [place] [address] Amish Escobedo MD [address] [facility] [address] [place] [address] documented as of this encounter Visit Diagnoses Diagnosis Encounter for nonprocreative genetic counseling- Primary documented in this encounter Additional Health Concerns Assessment Noted Time A fall risk assessment has been complete d for the patient 06/02/2024 1:58 PM EDT A Body Mass Index follow-up plan has been documented for the patient 06/02/2024 2:45 PM EDT documented as of this encounter Care Teams Donkey Doctor Relationship Specialty Start Date End Date Felicitas Melara APRN [address] [place] [address] PCP - General 01/29/24 documented as of this encounter
--- OUTSIDE RECORDS SUMMARY | 2024-07-15 05:00 | XMS_ITS | Encounter Summary ---
Author Organization [employer] ([place], [place], [place], [place]) Address [address] [place] [address] Care Team Providers Care Douper Name Role Phone Linh Doty DO Primary Care Provider Lizzie Alves PA-C Unavailable [phone] Kaushik Mariscal MD Unavailable Reason for Visit * Reason Comments Pacemaker /ICD Home Monitoring Encounter Details Date Type Department Care Team (Late st Contact Info) Description 07/15/2024 5:00 AM EDT Clinical Support [facility] Electrophysiology [address] [place] [address] Louise Gottlieb MD [address] [facility] [address] [place] [address] Encounter for adjustment or management of cardiac [...] Date Mendez rded Speak language other than Bahraini at home Not on file 02/27/2023 Want [...] (HCC) documented in this encounter Care Teams Douper Relationship Specialty Start Date End Date Linh Doty, [address] [facility] [address] [place] [address] PCP - General Family Medicine 11/04/22 Lizzie Alves PA-C [address] [facility], [facility] [address] [place] [address] Hospitalist Cardiology 05/27/23 Kaushik Mariscal MD [address] [facility] [address] [place] [address] Junior Php Developer Electrophysiology 11/18/23 documented as of this encounter
--- OUTSIDE RECORDS SUMMARY | 2024-08-23 13:34 | XMS_ITS | Encounter Summary ---
Author Organization [employer] ([place], [place], [place], [place]) Address [address] [place] [address] Care Team Providers Care Camp Dishwasher Name Role Phone Lalitha Linhkarthikeyan Mazariegos DO Primary Care Provider [phone] Lizzie Alves PA-C Unavailable [phone] Kaushik Mariscal MD Unavailable Encounter Details Date Type Department Care Team (Late st Contact Info) Description 07/31/2021 Transcribed Document [facility] [place] [address] [place] [address] ProviderChad MD [address] [place] [address] Social History Tobacco Use Types Packs/Day Years Used Date Smoking Tobacco: Never Assessed Family and Community Support Answer Geremias e Recorded Help with Day to Day Activities Not on file 02/27/2023 Feeling Lonely or Isolated Not on file 02/27 Educational Attainment Answer Date Mendez rded Speak language other than Chinese at home Not on file 02/27/2023 Want help with school or training Not on file 02/27/2023 Substance Use Answer Date Recorded Used prescription meds for non-medical reasons N ot on file 02/27/2023 Used illegal drugs past 12 months Not on file 02/27/2023 Comments Unknown Sex and Gender Information Value Date Recorded Sex Assigned at Not on file Legal Sex Female 3:27 PM CDT Gender Identity Not on file Sexual Orientation Not on file documented as of this encounter Miscellaneous Notes * Cerner Conversion Note - Historical ProviderMD - 07/31/2021 8:56 AM CDT UM Authorization Entered On: 07/31/2021 8:56 EDT Performed On: 07/31/2021 8:56 EDT by Bonita Katz, Sonographer Primary Insurance Authorization Authorization and Policy Numbers : Insurance 1 Health Plan: [employer] MANAGED MEDICARE Policy Number: [id number] Authorization Number: Insurance Primary Name : [employer] MANAGED MEDICARE Policy Number: [id number] Authorization Status-Primary : Admit approved Auth/Referral Contact Name-Primary : [place] Reference Number-Primary : [id number] Authorization Number-Primary : [id number] Number of Days Authorized-Primary : 5 Day(s) Authorized Service Begin Date-Primary : 07/16/2021 EDT Authorized Service End Date-Primary : 07/21/2021 EDT Authorization Comments-Primary : Per website - Under review. Historical Authorization Comments-Primary : Comment 1: Discharge summary as well as continued stay clinical 07/23 - discharge faxed. (Bonita Katz, Sonographer 07/29/2021 15:50) Comment 2: 07/20-07/22 CLINICALS FAXED VIA [employer] (Yessi Alaniz RN 07/22/2021 16:49) Comment 3: PER PORTAL IP APPROVED FOR 07/16 UP TO BUT NOT INCLUDING 07/22 (Khushi Jones, Rn-Utilization Review 07/19/2021 13:56) Comment 4: UNDER REVIEW PER WC PORTAL (Khushi Jones, Rn-Utilization Review 07/19/2021 09:22) Comment 5: CLINICAL FAXED VIA [employer] (Khushi Jones, Rn-Utilization Review 07/17/2021 15:22) Comment 6: REF# PER GUME. CLINICAL FAXED VIA [employer] (Khushi Jones, Rn-Utilization Review 07/17/2021 15:17) Bonita Katz, Sonographer - 07/31/2021 8:56 EDT documented in this encounter Plan of Treatment Not on file documented as of this encounter Visit Diagnoses Not on filedocumented in this encounter Care Teams Camp Dishwasher Relationship Specialty Start Date End Date Linh Doty DO [address] [place] [address] PCP - General Family Medicine 11/04/22 Lizzie Alves PA-C 1401 [facility], [facility] [address] [place] [address] Hospitalist Cardiology 05/27/23 Kaushik Mariscal MD [address] [facility] [address] [place] [address] Boiler Riveter Electrophysiology 11/18/23 documented as of this encounter
--- OUTSIDE RECORDS SUMMARY | 2024-08-23 13:34 | XMS_ITS | Encounter Summary ---
Author Organization [employer] ([place], [place], [place], [place]) Address [address] [place] [address] Care Team Providers Care Car Attendant Name Role Phone Lalitha Linh Delilah DAVIS Primary Care Provider [phone] Lizzie Alves PA-C Unavailable [phone] Kaushik Mariscal MD Unavailable Encounter Details Date Type Department Care Team (Late st Contact Info) Description 08/27/2021 Transcribed Document [facility] [place] Family Medicine [address] [place] [address] ProviderChad MD [address] [place] [address] Social History Tobacco Use Types Packs/Day Years Used Date Smoking Tobacco: Never Assessed Family and Community Support Answer Geremias e Recorded Help with Day to Day Activities Not on file 02/27/2023 Feeling Lonely or Isolated Not on file 02/27 Educational Attainment Answer Date Mendez rded Speak language other than Lithuanian at home Not on file 02/27/2023 Want [...] Cerner Conversion Note - Historical ProviderMD - 08/27/2021 9:35 AM CDT Meds to Bed Enrollment Entered On: 08/27/2021 9:35 EDT Performed On: 08/27/2021 9:35 EDT by Silvia León RPh Meds to Bed Enrollment Patient Enrollment Decision: : Yes/enroll in meds to bed program Silvia León RPh - 08/27/2021 9:35 EDT Electronically signed by Rekha [facility] Conversion Nuclear Equipment Design Engineer Cerner at 05/27/2022 9:00 PM CDT documented in this encounter Plan of Treatment Not on file documented as of this encounter Visit Diagnoses Not on filedocumented in this encounter Care Teams Car Attendant Relationship Specialty Start Date End Date Linh Dtoy, [address] [facility] [address] [place] [address] PCP - General Family Medicine 11/04/22 Lizzie Alves PA-C [address] [facility], [facility] [address] [place] [address] Hospitalist Cardiology 05/27/23 Kaushik Mariscal MD [address] [facility] [address] [place] [address] Resident Care Assistant Electrophysiology 11/18/23 documented as of this encounter
--- OUTSIDE RECORDS SUMMARY | 2024-08-23 13:34 | XMS_ITS | Encounter Summary ---
Author Organization [employer] ([place], [place], [place], [place]) Address [address] [place] [address] Care Team Providers Care Features Editor Name Role Phone Lalitha Linhkarthikeyan Mazariegos DO Primary Care Provider [phone] Lizzie Alves PA-C Unavailable [phone] Kaushik Mariscal MD Unavailable Encounter Details Date Type Department Care Team (Late st Contact Info) Description 08/26/2021 Transcribed Document [facility] [place] Family Medicine [address] [place] [address] ProviderChad MD [address] [place] [address] Social History Tobacco Use Types Packs/Day Years Used Date Smoking Tobacco: Never Assessed Family and Community Support Answer Geremias e Recorded Help with Day to Day Activities Not on file 02/27/2023 Feeling Lonely or Isolated Not on file 02/27 Educational Attainment Answer Date Mendez rded Speak language other than Citizen Of [place] at home Not on file 02/27/2023 Want [...] Cerner Conversion Note - Historical ProviderMD - 08/26/2021 3:01 PM CDT Event Note Entered On: 08/26/2021 15:02 EDT Performed On: 08/26/2021 15:01 EDT by ABBIE MANDUJANO RN Event Note Event Date/Time : 08/26/2021 15:00 EDT Description of Event : Report to Sonja SMITH on 4 IC. Pt transferred to [facility] via wheelchair and all belongings. ABBIE MANDUJANO RN - 08/26/2021 15:01 EDT Electronically signed by Rekha [facility] Conversion Board Attendant Cerner at 05/27/2022 9:03 PM CDT documented in this encounter Plan of Treatment Not on file documented as of this encounter Visit Diagnoses Not on filedocumented in this encounter Care Teams Features Editor Relationship Specialty Start Date End Date Linh Doty, DO 8 [facility] [address] [place] [address] PCP - General Family Medicine 11/04/22 Lizzie Alves PA-C 14[address] [facility], [facility] [address] [place] [address] Hospitalist Cardiology 05/27/23 Kaushik Mariscal MD [address] [facility] [address] [place] [address] Lead Bi Developer Electrophysiology 11/18/23 documented as of this encounter
--- OUTSIDE RECORDS SUMMARY | 2024-08-23 13:34 | XMS_ITS | Encounter Summary ---
Author Organization [employer] ([place], [place], [place], [place]) Address [address] [place] [address] Care Team Providers Care Director Of Federal Sales Name Role Phone Lalitha Linhkarthikeyan Mazariegos DO Primary Care Provider [phone] Lizzie Alves PA-C Unavailable [phone] Kaushik Mariscal MD Unavailable Encounter Details Date Type Department Care Team (Late st Contact Info) Description 08/27/2021 Transcribed Document [facility] [place] Family Medicine [address] [place] [address] ProviderChad MD [address] [place] [address] Social History Tobacco Use Types Packs/Day Years Used Date Smoking Tobacco: Never Assessed Family and Community Support Answer Geremias e Recorded Help with Day to Day Activities Not on file 02/27/2023 Feeling Lonely or Isolated Not on file 02/27 Educational Attainment Answer Date Mendez rded Speak language other than Dominican at home Not on file 02/27/2023 Want [...] Conversion Note - Historical ProviderMD - 08/27/2021 11:15 AM CDT Patient Resource [facility] Entered On: 08/27/2021 11:17 EDT Performed On: 08/27/2021 11:15 EDT by Jamila Townsend, MANAGER SUPPLY CHAIN Patient Resource Center Provider Status : EST Other Established Provider Name : Linh Doty Patient Phone Number : [phone] Patient Insurance Type : Medicare Source of [...] at ED : Other Primary Language : Dominican Patient Resource Center Comment : PCP and CARDIOLOGY appts made, CARDIO EP appt already made Follow Up Needed : No Jamila Townsend, MANAGER SUPPLY CHAIN - 08/27/2021 11:15 EDT Electronically signed by Rekha [facility] Conversion Chief Payroll Clerk Cerner at 05/27/2022 8:59 PM CDT documented in this encounter Plan of Treatment Not on file documented as of this encounter Visit Diagnoses Not on filedocumented in this encounter Care Teams Director Of Federal Sales Relationship Specialty Start Date End Date Luistobias Linh Delilah, DO 8 [facility] [address] [place] [address] PCP - General Family Medicine 11/04/22 Lizzie Alves PA-C [address] [place] [address], [facility] [address] [place] [address] Hospitalist Cardiology 05/27/23 Kaushik Mariscal MD 14[address] [place] [address] [employer] Specialist Electrophysiology 11/18/23 documented as of this encounter
--- OUTSIDE RECORDS SUMMARY | 2024-08-23 13:34 | XMS_ITS | Encounter Summary ---
Author Organization [employer] ([place], [place], [place], [place]) Address [address] [place] [address] Care Team Providers Care Manager Statistical Name Role Phone Lalitha Linhkarthikeyan Mazariegos DO Primary Care Provider [phone] Lizzie Alves PA-C Unavailable [phone] Kaushik Mariscal MD Unavailable Encounter Details Date Type Department Care Team (Late st Contact Info) Description 07/16/2021 Transcribed Document [facility] [place] Family Medicine [address] [place] [address] ProviderChad MD [address] [place] [address] Social History Tobacco Use Types Packs/Day Years Used Date Smoking Tobacco: Never Assessed Family and Community Support Answer Geremias e Recorded Help with Day to Day Activities Not on file 02/27/2023 Feeling Lonely or Isolated Not on file 02/27 Educational Attainment Answer Date Mendez rded Speak language other than Nauruan at home Not on file 02/27/2023 Want [...] Cerner Conversion Note - Historical ProviderMD - 07/16/2021 3:10 PM CDT Consult Phone Call Documentation Entered On: 07/18/2021 7:36 EDT Performed On: 07/16/2021 15:10 EDT by Wanda Gill SWAN Phone Call for Consults Physician Requesting Consult : MIRELLA GEORGE MD-CAR Physician Requested for Consult : ANAHY CHRISTIE MD-INF Date and Time Call Returned : 07/16/2021 16:22 EDT Physician Returning Call : HANANE WILSON MD-INF Wanda Gill SWAN - 07/18/2021 7:35 EDT Electronically signed by [facility] Conversion Cupola Melter Cerner at 05/27/2022 9:14 PM CDT documented in this encounter Plan of Treatment Not on file documented as of this encounter Visit Diagnoses Not on filedocumented in this encounter Care Teams Manager Statistical Relationship Specialty Start Date End Date Linh Doty, 8 [facility] [address] [place] [address] PCP - General Family Medicine 11/04/22 Lizzie Alves PA-C [address] [place] [address], [facility] [address] [place] [address] Hospitalist Cardiology 05/27/23 Kaushik Mariscal MD [address] [facility] [address] [place] [address] Dairy Nutrition Consultant Electrophysiology 11/18/23 documented as of this encounter
--- OUTSIDE RECORDS SUMMARY | 2024-08-23 13:34 | XMS_ITS | Encounter Summary ---
Author Organization [employer] ([place], [place], [place], [place]) Address [address] [place] [address] Care Team Providers Care Boom Boss Name Role Phone Lalitha Linhkarthikeyan aMzariegos DO Primary Care Provider [phone] Lizzie Alves PA-C Unavailable [phone] Kaushik Mariscal MD Unavailable Encounter Details Date Type Department Care Team (Late st Contact Info) Description 07/16/2021 Transcribed Document [facility] [place] Family Medicine [address] [place] [address] ProviderChad MD [address] [place] [address] Social History Tobacco Use Types Packs/Day Years Used Date Smoking Tobacco: Never Assessed Family and Community Support Answer Geremias e Recorded Help with Day to Day Activities Not on file 02/27/2023 Feeling Lonely or Isolated Not on file 02/27 Educational Attainment Answer Date Mendez rded Speak language other than Prydeinig at home Not on file 02/27/2023 Want [...] Conversion Note - Historical ProviderMD - 07/16/2021 2:19 PM CDT Evaluation, Physical Therapy Entered On: 07/18/2021 16:07 EDT Performed On: 07/18/2021 12:00 EDT by WILL PRETTY, PT General Information, PT Visit Type, PT : Initial evaluation Patient Orders : Order Date Order Ordering MD 07/16/2021 14:19 PT Evaluation and Treatment Ordered [...] Information Comment, PT : Dx: pace maker WILL Sanchez, PT - 07/18/2021 15:53 EDT General Status [...] Railing Position : Right, going up WILL PRETTY PT - 07/18/2021 15:53 EDT Prior Level of Function PT GRID Prior LOF Ambulation, Household : Independent Prior LOF Ambulation, Community : Independent Prior LOF Bed Mobility : Independent Prior LOF Toileting : Independent Prior LOF Transfer : Independent WILL PRETTY, PT - 07/18/2021 15:53 EDT Functional Mobility Mobility Grid Bed Roll Left : Rehab Complete independence Bed Roll Right : Rehab Complete independence Bed Scooting : Rehab Complete independence Supine to Sit : Rehab Complete independence Sit to Stand : Rehab Complete independence Sit to Supine : Rehab Complete independence MARIA DE JESUS, WILL, PT - 07/18/2021 15:53 EDT Gait Training/Assessment, PT Gait Assistance Level : Independent, complete Walking Distance : 375' Ambulatory Devices : None, Gait belt WILL PRETTY, PT - 07/18/2021 15:53 EDT Cognition Assessment, PT Orientation : Oriented x 4 WILL PRETTY PT - 07/18/2021 15:53 EDT Edu Topics Physical Therapy Education Grid Role of Physical Therapy : Verbalizes understanding WILL PRETTY PT - 07/18/2021 15:53 EDT Indication Assesessment, PT Physical Therapy Indicated : No Physical Therapy Not Indicated : Independent, complete, No skilled services ind., Prior level of function WILL PRETTY PT - 07/18/2021 15:53 EDT Plan of [...] Plan for Treatment : eval only WILL PRETTY PT - 07/18/2021 15:53 EDT Pain Assessment [...] Continued Therapy at Discharge : No WILL PRETTY PT - 07/18/2021 15:[address] [facility] PT Charges PT Eval Moderate Complexity : 1 MARIAH PRETTYNN, PT - 07/18/2021 15:53 EDT Electronically signed by Reyna Da Silva Conversion Optical Effects Layout Person Cerner at 05/27/2022 9:19 PM CDT documented in this encounter Plan of Treatment Not on file documented as of this encounter Visit Diagnoses Not on filedocumented in this encounter Care Teams Boom Boss Relationship Specialty Start Date End Date Linh Doty, 8 [facility] [address] [place] [address] PCP - General Family Medicine 11/04/22 Lizzie Alves PA-C [address] [place] [address], [facility] [address] [place] [address] Hospitalist Cardiology 05/27/23 Kaushik Mariscal MD [address] [facility] [address] [place] [address] Revenue Agent Electrophysiology 11/18/23 documented as of this encounter
--- OUTSIDE RECORDS SUMMARY | 2024-08-23 13:34 | XMS_ITS | Encounter Summary ---
Author Organization [employer] ([place], [place], [place], [place]) Address [address] [place] [address] Care Team Providers Care Cabinet Mounter Name Role Phone Lalitha Linhkarthikeyan Mazariegos DO Primary Care Provider [phone] Lizzie Alves PA-C Unavailable [phone] Dion Mariscal MD Unavailable Encounter Details Date Type Department Care Team (Late st Contact Info) Description 07/18/2021 Transcribed Document [facility] [place] Family Medicine [address] [place] [address] ProviderChad MD [address] [place] [address] Social History Tobacco Use Types Packs/Day Years Used Date Smoking Tobacco: Never Assessed Family and Community Support Answer Geremias e Recorded Help with Day to Day Activities Not on file 02/27/2023 Feeling Lonely or Isolated Not on file 02/27 Educational Attainment Answer Date Mendez rded Speak language other than Somali at home Not on file 02/27/2023 Want [...] Cerner Conversion Note - Historical ProviderMD - 07/18/2021 10:10 AM CDT Patient: LENA MENDOZA [facility]: [id number] Age: 55 years Sex: Female : 1965 Associated Diagnoses: None Author: DION MARISCAL MD-REJI Subjective Chief complaint. NAD Health Status Allergies: [...] mL: 1,000 mg, 250 mL/Hr, IV Piggyback, [id number] Prescriptions Prescribed nicotine 21 mg/24 hr transdermal [...] Refill(s) fluticasone 50 mcg/inh nasal spray: 2 [place], Nasal, Daily, PRN: Nasal Congestion, 16 Gram, [...] BID fluticasone 50 mcg/inh nasal spray 2 [place], PRN, Nasal, Daily folic acid 1 mg [...] 0.9% 250 mL 1,000 mg, IV Piggyback, [id number] Continuous: (0) PRN: (7) acetaminophen 325 mg [...] All Problems High cholesterol / SNOMED CT 21559775 / Confirmed PAD (peripheral artery disease) / SNOMED CT 3110241728 / Confirmed Chronic CHF / SNOMED CT 388623222 / Confirmed Current smoker / SNOMED CT 423601906 / Confirmed Arteriosclerosis / SNOMED CT 448883426 / Confirmed Intermittent claudication / SNOMED CT 639216505 / Confirmed Cardiomyopathy / SNOMED CT 748327599 / Confirmed History of MN (myocardial infarction) / SNOMED CT 5483108808 / Confirmed Pacemaker / SNOMED CT 2716624281 / Confirmed Stented coronary artery / SNOMED CT 0334164860 / Confirmed Gout / SNOMED CT 832951778 / Confirmed At risk for sleep apnea / IMO 28399180 / Confirmed Resolved: History of ventricular tachycardia / SNOMED CT 5470542294 ICD placed in past for arrythmia. Canceled: HTN (hypertension) / SNOMED CT 5032805995 Canceled: COPD (chronic obstructive pulmonary disease) / SNOMED CT 54892788 Canceled: At risk for sleep apnea / IMO 40676612 Canceled: History of ischemic cardiomyopathy / SNOMED CT 964960125 Canceled: Abdominal aortic stenosis / SNOMED CT 293943508 Canceled: Shortness of breath / SNOMED CT 829211405, Active Problems (12) Arteriosclerosis At risk for sleep apnea Cardiomyopathy Chronic CHF Current smoker Gout High cholesterol History of [place] (myocardial infarction) Intermittent claudication Pacemaker PAD (peripheral [...] 96 (JUL 17 12:30) 111 (JUL 17 13:) DBP 60 (JUL 18 01:30) L 59 (JUL 17 11:30) 67 (JUL 17 13:) MAP 72 (JUL 18:30) 72 (JUL 18:30) 81 (JUL 17 13:00) SpO2 96 (JUL 18:) L 88 (JUL [...] Normal range of motion. Integumentary: Warm, Dry, [place]. Neurologic: Alert, Oriented. Psychiatric: Cooperative, Appropriate mood [...] sent from clinic to be admitted by [facility] for IV antibiotics. Will request blood cultures, consult ID, further plans to follow. documented in this encounter Plan of Treatment Not on file documented as of this encounter Visit Diagnoses Not on filedocumented in this encounter Care Teams Cabinet Mounter Relationship Specialty Start Date End Date Linh Doty, 8 [facility] [address] [place] [address] PCP - General Family Medicine 11/04/22 Lizzie Alves PA-C [address] [place] , [facility] [address] [place] [address] Hospitalist Cardiology 05/27/23 Dion Mariscal MD 14[address] [facility] [place] [address] Public Affairs Specialist Electrophysiology 11/18/23 documented as of this encounter
--- OUTSIDE RECORDS SUMMARY | 2024-08-23 13:34 | XMS_ITS | Encounter Summary ---
Author Organization [employer] ([place], [place], [place], [place]) Address [address] [place] [address] Care Team Providers Care Shop Assistant Name Role Phone Lalitha Linhkarthikeyan Mazariegos DO Primary Care Provider [phone] Lizzie Alves PA-C Unavailable [phone] Kaushik Mariscal MD Unavailable Encounter Details Date Type Department Care Team (Late st Contact Info) Description 07/17/2021 Transcribed Document [facility] [place] Family Medicine [address] [place] [address] ProviderChad MD [address] [place] [address] Social History Tobacco Use Types Packs/Day Years Used Date Smoking Tobacco: Never Assessed Family and Community Support Answer Geremias e Recorded Help with Day to Day Activities Not on file 02/27/2023 Feeling Lonely or Isolated Not on file 02/27 Educational Attainment Answer Date Mendez rded Speak language other than Samoan at home Not on file 02/27/2023 Want [...] Cerner Conversion Note - Historical ProviderMD - 07/17/2021 3:54 PM CDT Meds to Bed Enrollment Entered On: 07/18/2021 10:18 EDT Performed On: 07/17/2021 15:54 EDT by Samuel Anders Lay Out Drafter Cert Lead Meds to Bed Enrollment Patient Enrollment Decision: : Yes/enroll in meds to bed program Samuel Anders Lay Out Drafter Cert Lead - 07/18/2021 10:18 EDT Electronically signed by Alberto Da Silva Conversion Concrete Paving Supervisor Cerner at 05/27/2022 9:23 PM CDT documented in this encounter Plan of Treatment Not on file documented as of this encounter Visit Diagnoses Not on filedocumented in this encounter Care Teams Shop Assistant Relationship Specialty Start Date End Date Linh Doty, [address] [facility] [address] [place] [address] PCP - General Family Medicine 11/04/22 Lizzie Alves PA-C [address] [place] [address], [facility] [address] [place] [address] Hospitalist Cardiology 05/27/23 Kaushik Mariscal MD [address] [facility] [address] [place] [address] Hydrogenation Still Operator Electrophysiology 11/18/23 documented as of this encounter
--- OUTSIDE RECORDS SUMMARY | 2024-08-23 13:34 | XMS_ITS | Encounter Summary ---
Author Organization [employer] ([place], [place], [place], [place]) Address [address] [place] [address] Care Team Providers Care Contact Centre Supervisor Name Role Phone Lalitha Linhkarthikeyan Mazariegos DO Primary Care Provider [phone] Lizzie Alves PA-C Unavailable [phone] Kaushik Mariscal MD Unavailable Encounter Details Date Type Department Care Team (Late st Contact Info) Description 07/17/2021 Transcribed Document [facility] [place] Family Medicine [address] [place] [address] ProviderChad MD [address] [place] [address] Social History Tobacco Use Types Packs/Day Years Used Date Smoking Tobacco: Never Assessed Family and Community Support Answer Geremias e Recorded Help with Day to Day Activities Not on file 02/27/2023 Feeling Lonely or Isolated Not on file 02/27 Educational Attainment Answer Date Mendez rded Speak language other than German at home Not on file 02/27/2023 Want [...] Conversion Note - Historical ProviderMD - 07/17/2021 3:22 PM CDT UM Authorization Entered On: 07/17/2021 15:23 EDT Performed On: 07/17/2021 15:22 EDT by Khushi Jones Rn-Utilization Review Primary Insurance Authorization Authorization and Policy Numbers : Insurance 1 Health Plan: [employer] MANAGED MEDICARE Policy Number: [id number] Authorization Number: Insurance Primary Name : [facility] MANAGED MEDICARE Policy Number: [id number] Authorization Status-Primary : Awaiting callback Reference Number-Primary : [id number] Authorized Service Begin Date-Primary : 07/16/2021 EDT Authorization Comments-Primary : CLINICAL FAXED VIA [employer] Historical Authorization Comments-Primary : Comment 1: REF# YAJAIRA DUNAWAY. CLINICAL FAXED VIA [employer] (Khushi Jones Rn-Utilization Review 07/17/2021 15:17) Khushi Jones Rn-Utilization Review - 07/17/2021 15:22 EDT Electronically signed by [facility] Conversion Engineering Specialist Cerner at 05/27/2022 8:59 PM CDT documented in this encounter Plan of Treatment Not on file documented as of this encounter Visit Diagnoses Not on filedocumented in this encounter Care Teams Contact Centre Supervisor Relationship Specialty Start Date End Date Linh Doty, DO 8 [facility] [address] [place] [address] PCP - General Family Medicine 11/04/22 Lizzie Alves PA-C 1401 [facility] [address] [place] [address] Hospitalist Cardiology 05/27/23 Kaushik Mariscal MD 1401 [facility] [address] [place] [address] Assistant Branch Operations Manager Electrophysiology 11/18/23 documented as of this encounter
--- OUTSIDE RECORDS SUMMARY | 2024-08-23 13:34 | XMS_ITS | Encounter Summary ---
Author Organization [facility] Address [address] [place] [address] Care Team Providers Care Doughnut Fryer Name Role Phone MelaraFelicitas jorge Delilah DENISE Primary Care Provider [phone] Reason for Visit * Reason Onset Date Comments Genetic Counseling Intake 07/06/2024 Encounter Details Date Type Department Care Team ([facility] st Contact Info) Description 07/06/2024 Telephone PAV Genetic Counseling [address] [facility], [address]st [place] [address] Kia Humphries, GC [address] [facility] [address] [place] [address] Genetic Counseling Intake Social History Tobacco Use [...] Recorded Patient Health Questionnaire-2 Score 0 05/30/2024 [facility] - Occupational [...] the past 12 months has th e [employer], [employer] by [employer], oil, or water Ferfics threatened to shut off services in your home? No 06/02/2024 Comments No Sex and Gender Information Value Date Recorded Sex Assigned at Not on file Legal Sex Female 8:21 PM EDT Gender Identity Not on file Sexual Orientation Not on file documented as of this encounter Miscellaneous Notes * Telephone Encounter - Pedro Aguilar - 07/06/2024 2:58 PM EDT Genetic Counseling Computing Architect called patient to obtain family history information [...] Visit [facility] [address] [place] [address] Natalia Alves MD [address] [facility] [address] [place] [address] 12/08/2024 3:00 PM EDT Office Visit Medical Office Building [facility] [address] , [address] [place] [address] Amish Escobedo MD [address] [facility] [address] [place] [address] documented as of this encounter Visit Diagnoses Not on filedocumented in this encounter Additional Health Concerns Assessment Noted Time A fall risk assessment has been complete d for the patient 06/02/2024 1:58 PM EDT A Body Mass Index follow-up plan has been documented for the patient 06/02/2024 2:45 PM EDT documented as of this encounter Care Teams Doughnut Fryer Relationship Specialty Start Date End Date Felicitas Melara APRN [address] [place] [address] PCP - General 01/29/24 documented as of this encounter
--- OUTSIDE RECORDS SUMMARY | 2024-08-23 13:34 | XMS_ITS | Encounter Summary ---
Author Organization [employer] ([place], [place], [place], [place]) Address [address] [place] [address] Care Team Providers Care Global Logistics Analyst Name Role Phone Lalitha Linhkarthikeyan Mazariegos DO Primary Care Provider [phone] Lizzie Alves PA-C Unavailable [phone] Kaushik Mariscal MD Unavailable Encounter Details Date Type Department Care Team (Late st Contact Info) Description 07/16/2021 Transcribed Document [facility] Family Medicine [address] [place] [address] ProviderChad MD [address] [place] [address] Social History Tobacco Use Types Packs/Day Years Used Date Smoking Tobacco: Never Assessed Family and Community Support Answer Geremias e Recorded Help with Day to Day Activities Not on file 02/27/2023 Feeling Lonely or Isolated Not on file 02/27 Educational Attainment Answer Date Mendez rded Speak language other than Nicaraguan at home Not on file 02/27/2023 Want [...] Conversion Note - Historical ProviderMD - 07/16/2021 3:57 PM CDT Consult Phone Call Documentation Entered On: 07/16/2021 15:58 EDT Performed On: 07/16/2021 15:57 EDT by Pat Gallegos Emergency Room Manager Community Relations Phone Call for Consults Consult Phone Call/Page Attempt : First call Consult Reason : infected pacemaker site Provider Service Notified Name : Infectious Disease Consult, Additional Information : Spoke to Cheryle at Inf Disease office and informed her of consult. Pat Gallegos Emergency Room Manager Community Relations - 07/16/2021 15:57 EDT documented in this encounter Plan of Treatment Not on file documented as of this encounter Visit Diagnoses Not on filedocumented in this encounter Care Teams Global Logistics Analyst Relationship Specialty Start Date End Date Linh Doty, DO [address] [facility] [address] [place] [address] PCP - General Family Medicine 11/04/22 Lizzie Alves PA-C [address] [facility], [facility] [address] [place] [address] Hospitalist Cardiology 05/27/23 Kaushik Mariscal MD [address] [facility] [address] [place] [address] Controller Mechanic Electrophysiology 11/18/23 documented as of this encounter
--- OUTSIDE RECORDS SUMMARY | 2024-08-23 13:34 | XMS_ITS | Encounter Summary ---
Author Organization [employer] ([place], [place], [place], [place]) Address [address] [place] [address] Care Team Providers Care Mobile Home Lot Utility Worker Name Role Phone Lalitha Linh Delilah DAVIS Primary Care Provider [phone] Lizzie Alves PA-C Unavailable [phone] Kaushik Mariscal MD Unavailable Encounter Details Date Type Department Care Team (Late st Contact Info) Description 07/16/2021 Transcribed Document [facility] Family Medicine [address] [place] [address] ProviderChad MD [address] [place] [address] Social History Tobacco Use Types Packs/Day Years Used Date Smoking Tobacco: Never Assessed Family and Community Support Answer Geremias e Recorded Help with Day to Day Activities Not on file 02/27/2023 Feeling Lonely or Isolated Not on file 02/27 Educational Attainment Answer Date Mendez rded Speak language other than New Zealander at home Not on file 02/27/2023 Want [...] Conversion Note - Historical ProviderMD - 07/16/2021 1:14 PM CDT Patient: LENA MENDOZA Age: 55 years Sex: Female : 1965 Associated Diagnoses: None Author: MIRELLA GEORGE MD-CAR Basic Information PCP: Linh Doty Dye Range Operator: Pedro Cruz NP Chief Complaint Draining from Pacemaker pocket. History of Present Illness Ms. Lena Mendoza is a pleasant 55-year-old female with [...] 50 mcg inhalation powder 1 Puff, Inhalation, [id number] folic acid 1 mg oral tablet 1 [...] 50 mcg inhalation powder: 1 Puff, Inhalation, [id number], rinse mouth and throat after use, 30 [...] All Problems High cholesterol / SNOMED CT 44328681 / Confirmed PAD (peripheral artery disease) / SNOMED CT 8450665516 / Confirmed Chronic CHF / SNOMED CT 654551989 / Confirmed Current smoker / SNOMED CT 858160615 / Confirmed Arteriosclerosis / SNOMED CT 539091151 / Confirmed Intermittent claudication / SNOMED CT 966404381 / Confirmed Cardiomyopathy / SNOMED CT 711528723 / Confirmed History of MN (myocardial infarction) / SNOMED CT 1642612630 / Confirmed Pacemaker / SNOMED CT 8535392954 / Confirmed Stented coronary artery / SNOMED CT 7921460325 / Confirmed Gout / SNOMED CT 057646506 / Confirmed At risk for sleep apnea / IMO 68017587 / Confirmed Resolved: History of ventricular tachycardia / SNOMED CT 0010279138 ICD placed in past for arrythmia. Canceled: HTN (hypertension) / SNOMED CT 4781431339 Canceled: COPD (chronic obstructive pulmonary disease) / SNOMED CT 41358318 Canceled: At risk for sleep apnea / IMO 06622227 Canceled: History of ischemic cardiomyopathy / SNOMED CT 907291664 Canceled: Abdominal aortic stenosis / SNOMED CT 172379450 Canceled: Shortness of breath / SNOMED CT 750445030, Active Problems (12) Arteriosclerosis At risk for [...] (JUL 16:) Periph HR 78 (JUL 16 12:) 78 (JUL 16 12:) 78 (JUL 16:) Resp Rate 20 (JUL 16 12:) 20 (JUL 16 12:) 20 (JUL 16:) SBP H 152 (JUL 16:) H 152 (JUL 16 12:) H 152 (JUL 16:) DBP 84 (JUL 16 12:06) 84 (JUL [...] Normal range of motion. Integumentary: Warm, Dry, [place]. Neurologic: Alert, Oriented. Psychiatric: Cooperative, Appropriate mood [...] ICD implanted 07/2011 and gen change 07/01/2021 ([facility]) *hx LV apical thrombus was on Eliquis [...] on filedocumented in this encounter Care Teams Mobile Home Lot Utility Worker Relationship Specialty Start Date End Date Linh Doty, 8 [facility] [address] [place] [address] PCP - General Family Medicine 11/04/22 Lizzie Alves PA-C [address] [facility], [facility] [address] [place] [address] Hospitalist Cardiology 05/27/23 Kaushik Mariscal MD [address] [facility] [address] [place] [address] Dye Range Operator Electrophysiology 11/18/23 documented as of this encounter
--- OUTSIDE RECORDS SUMMARY | 2024-08-23 13:34 | XMS_ITS | Encounter Summary ---
Author Organization [employer] ([place], [place], [place], [place]) Address [address] [place] [address] Care Team Providers Care Dance Coach Name Role Phone Lalitha Linhkarthikeyan Mazariegos DO Primary Care Provider [phone] Lizzie Alves PA-C Unavailable [phone] Kaushik Mariscal MD Unavailable Encounter Details Date Type Department Care Team (Late st Contact Info) Description 07/16/[address] [facility] Family Medicine [address] [place] [address] ProviderChad MD [address] [place] [address] Social History Tobacco Use Types Packs/Day Years Used Date Smoking Tobacco: Never Assessed Family and Community Support Answer Geremias e Recorded Help with Day to Day Activities Not on file 02/27/2023 Feeling Lonely or Isolated Not on file 02/27 Educational Attainment Answer Date Mendez rded Speak language other than Ghanaian at home Not on file 02/27/2023 Want [...] Conversion Note - Historical ProviderMD - 07/16/2021 12:00 PM CDT ED Assessment Entered On: 07/16/2021 12:53 EDT Performed On: 07/16/2021 12:00 EDT by Mary Ellen Nance, Health Safety Instructor Student Nurse ED Quick Look Assessment Level of Consciousness : Alert Affect/Behavior : Appropriate, Calm, Cooperative Orientation : Oriented x 4 Skin Temperature : Warm Skin Description : Normal for ethnicity Mary Ellen Nance, Health Safety Instructor Student Nurse - 07/16/2021 12:49 EDT (Not Validated) ED General-Functional Assess Information Obtained From : Patient, Spouse Preferred Communication Mode : Verbal Communication Barrier : None Primary Language : Ghanaian Any Spiritual/Cultural Needs or Requests : No Currently in Unsafe Situation : No Mary Ellen Nance Health Safety Instructor Student Nurse - 07/16/2021 12:49 EDT (Not Validated) Social Habits Smoking Status : Never (less than 100 in lifetime; none in last 30 days) Smokeless Tobacco Status : Never Desires Tobacco Cessation Calc : 0 Mary Ellen Nance Health Safety Instructor Student Nurse - 07/16/2021 12:49 EDT [Not [...] denies anty other symptoms. [Mary Ellen Nance, Health Safety Instructor Student Nurse - 07/16/2021 12:49 EDT] ) Mary Ellen Nance Health Safety Instructor Student Nurse - 07/16/2021 12:49 EDT (Not Validated) Electronically signed by Rekha [facility] Conversion Level Vial Inspector And Tester Cerner at 05/27/2022 9:13 PM CDT documented in this encounter Plan of Treatment Not on file documented as of this encounter Visit Diagnoses Not on filedocumented in this encounter Care Teams Dance Coach Relationship Specialty Start Date End Date Linh Doty, 8 [facility] [address] [place] [address] PCP - General Family Medicine 11/04/22 Lizzie Alves PA-C [address] [place] [address], [facility] [address] [place] [address] Hospitalist Cardiology 05/27/23 Kaushik Mariscal MD [address] [facility] [address] [place] [address] Mechanical Reliability Engineer Electrophysiology 11/18/23 documented as of this encounter
--- OUTSIDE RECORDS SUMMARY | 2024-08-23 13:34 | XMS_ITS | Encounter Summary ---
Author Organization [employer] ([place], [place], [place], [place]) Address [address] [place] [address] Care Team Providers Care Plastic Sheets Finishing Supervisor Name Role Phone Llaitha Linh Delilah DAVIS Primary Care Provider [phone] Lizzie Alves PA-C Unavailable [phone] Kaushik Mariscal MD Unavailable Encounter Details Date Type Department Care Team (Late st Contact Info) Description 08/26/2021 Transcribed Document [facility] Family Medicine [address] [place] [address] ProviderChad MD [address] [place] [address] Social History Tobacco Use Types Packs/Day Years Used Date Smoking Tobacco: Never Assessed Family and Community Support Answer Geremias e Recorded Help with Day to Day Activities Not on file 02/27/2023 Feeling Lonely or Isolated Not on file 02/27 Educational Attainment Answer Date Mendez rded Speak language other than Cymraes at home Not on file 02/27/2023 Want [...] Conversion Note - Historical ProviderMD - 08/26/2021 9:44 AM CDT Pre Procedure Adult Entered On: 08/26/2021 9:44 EDT Performed On: 08/26/2021 9:44 EDT by ABBIE MANDUJANO RN Height and Weight, Clinical Dosing Height Source : Stated Height Entry Format : [place] Height, Feet : 5 ft(Converted to: 152 cm, 60 Inch) Height, Inches : 6 Inch(Converted to: 0 ft 6 Inch, 15.24 cm) Clinical Height : 167.64 cm Weight Source : Standing scale Weight Entry Format : [place] Clinical Dosing Weight : 64.55 kg Weight, Pounds : 142 lb Body Surface Area (BSA) : 1.73 m2 Body Mass Index : 23 kg/m2 [place] Body Weight : 59 kg ABBIE MANDUJANO [...] Updated: 07/01/2021 12:59:00 EDT by Rere Ramos, SARAH) Alcohol: Alcohol Use History No. Use in [...] ABBIE MANDUJANO RN - 08/26/2021 10:13 EDT [place] Suicide Severity Rating Scale (C-SSRS) CSSRS Past [...] Support Person/Pt Rep Name : Tereso Coffey [phone] Want Family/Rep/Phys Notified of Admit : No Emergency Contact #1 : na Emergency Contact #1 Phone Number : na Emergency Contact #1 Relationship : na Emergency Contact #2 : na Emergency Contact #2 Phone Number : na Emergency Contact #2 Relationship : na Primary Language : Cymraes Preferred Communication Mode : Verbal Communication Barrier : None Supervisor Enrobing Needed : No ABBIE MANDUJANO RN - [...] Scale Risk Level : 0-24 Low Risk [place] Fall Interventions : Bed in low position, Call device within reach, Wheels locked ABBIE MANDUJANO RN - 08/26/2021 10:13 EDT Valuables and Belongings Valuables and Belongings : Clothing Clothing : Common streetwear Clothing Disposition : Bedside ABBIE MANDUJANO RN - 08/26/2021 10:13 EDT documented in this encounter Plan of Treatment Not on file documented as of this encounter Visit Diagnoses Not on filedocumented in this encounter Care Teams Plastic Sheets Finishing Supervisor Relationship Specialty Start Date End Date Linh Doty DO [address] [address] PCP - General Family Medicine 11/04/22 Lizzie Alves PA-C 1401 [facility], [facility] [address] [place] [address] Hospitalist Cardiology 05/27/23 Kaushik Mariscal MD 1401 [facility] [address] [place] [address] Public Health Nutritionist Electrophysiology 11/18/23 documented as of this encounter
--- OUTSIDE RECORDS SUMMARY | 2024-08-23 13:34 | XMS_ITS | Encounter Summary ---
Author Organization [employer] ([place], [place], [place], [place]) Address [address] [place] [address] Care Team Providers Care Digital Content Manager Name Role Phone Lalitha Linhkarthikeyan Mazariegos DO Primary Care Provider [phone] Lizzie Alves PA-C Unavailable [phone] Kaushik Mariscal MD Unavailable Encounter Details Date Type Department Care Team (Late st Contact Info) Description 08/26/2021 Transcribed Document [facility] Family Medicine [address] [place] [address] ProviderChad MD [address] [place] [address] Social History Tobacco Use Types Packs/Day Years Used Date Smoking Tobacco: Never Assessed Family and Community Support Answer Geremias e Recorded Help with Day to Day Activities Not on file 02/27/2023 Feeling Lonely or Isolated Not on file 02/27 Educational Attainment Answer Date Mendez rded Speak language other than Japanese at home Not on file 02/27/2023 Want [...] Conversion Note - Historical ProviderMD - 08/26/2021 1:22 PM CDT Admission History, [...] Support Person/Pt Rep Name : Tereso Coffey [phone] Want Family/Rep/Phys Notified of Admit : No Emergency Contact #1 : na Emergency Contact #1 Phone Number : na Emergency Contact #1 Relationship : na Emergency Contact #2 : na Emergency Contact #2 Phone Number : na Emergency Contact #2 Relationship : na Primary Language : Japanese Preferred Communication Mode : Verbal Communication Barrier : None Compounder Sterile Products Needed : No ABBIE MANDUJANO RN - [...] Scale Risk Level : 0-24 Low Risk Welcome Fall Interventions : Bed in low position, [...] Source : Stated Height Entry Format : [place] Height, Feet : 5 ft(Converted to: 152 cm, 60 Inch) Height, Inches : 6 Inch(Converted to: 0 ft 6 Inch, 15.24 cm) Clinical Height : 167.64 cm Weight Source : Standing scale Weight Entry Format : [place] Clinical Dosing Weight : 64.55 kg Weight, Pounds : 142 lb Body Surface Area (BSA) : 1.73 m2 Body Mass Index : 23 kg/m2 [place] Body Weight : 59 kg ABBIE MANDUJANO [...] ABBIE MANDUJANO RN - 08/26/2021 13:22 EDT [place] Suicide Severity Rating Scale (C-SSRS) CSSRS Past [...] on filedocumented in this encounter Care Teams Digital Content Manager Relationship Specialty Start Date End Date Linh Doty, DO [address] [facility] [address] [place] [address] PCP - General Family Medicine 11/04/22 Lizzie Alves PA-C [address] [place] [address], [facility] [address] [place] [address] Hospitalist Cardiology 05/27/23 Kaushik Mariscal MD [address] [facility] [address] [place] [address] Aperture Mask Etcher Electrophysiology 11/18/23 documented as of this encounter
--- OUTSIDE RECORDS SUMMARY | 2024-08-23 13:34 | XMS_ITS | Encounter Summary ---
Author Organization [employer] ([place], [place], [place], [place]) Address [address] [place] [address] Care Team Providers Care Sewer Separation Designer Name Role Phone Lalitha Linhkarthikeyan Mazariegos DO Primary Care Provider [phone] Lizzie Alves PA-C Unavailable [phone] Kaushik Mariscal MD Unavailable Encounter Details Date Type Department Care Team (Late st Contact Info) Description 08/26/2021 Transcribed Document [facility] Family Medicine [address] [place] [address] ProviderChad MD [address] [place] [address] Social History Tobacco Use Types Packs/Day Years Used Date Smoking Tobacco: Never Assessed Family and Community Support Answer Geremias e Recorded Help with Day to Day Activities Not on file 02/27/2023 Feeling Lonely or Isolated Not on file 02/27 Educational Attainment Answer Date Mendez rded Speak language other than Egyptian at home Not on file 02/27/2023 Want [...] Conversion Note - Historical ProviderMD - 08/26/2021 3:19 PM CDT Meds to Bed Enrollment Entered On: 08/27/2021 10:26 EDT Performed On: 08/26/2021 15:19 EDT by Samuel Anders Utility Worker Production Cert Lead Meds to Bed Enrollment Patient Enrollment Decision: : Yes/enroll in meds to bed program Samuel Anders Utility Worker Production Cert Lead - 08/27/2021 10:26 EDT documented in this encounter Plan of Treatment Not on file documented as of this encounter Visit Diagnoses Not on filedocumented in this encounter Care Teams Sewer Separation Designer Relationship Specialty Start Date End Date Linh Doty, 8 [facility] [address] [place] [address] PCP - General Family Medicine 11/04/22 Lizzie Alves PA-C [address] [place] [address], [facility] [address] [place] [address] Hospitalist Cardiology 05/27/23 Kaushik Mariscal MD [address] [facility] [address] [place] [address] Color Dipper Electrophysiology 11/18/23 documented as of this encounter
--- OUTSIDE RECORDS SUMMARY | 2024-08-23 13:34 | XMS_ITS | Encounter Summary ---
Author Organization [employer] ([place], [place], [place], [place]) Address [address] [place] [address] Care Team Providers Care Correctional Captain Name Role Phone Lalitha Linhkarthikeyan Mazariegos DO Primary Care Provider [phone] Lizzie Alves PA-C Unavailable [phone] Kaushik Mariscal MD Unavailable Encounter Details Date Type Department Care Team (Late st Contact Info) Description 08/26/2021 Transcribed Document [facility] Family Medicine [address] [place] [address] ProviderChad MD [address] [place] [address] Social History Tobacco Use Types Packs/Day Years Used Date Smoking Tobacco: Never Assessed Family and Community Support Answer Geremias e Recorded Help with Day to Day Activities Not on file 02/27/2023 Feeling Lonely or Isolated Not on file 02/27 Educational Attainment Answer Date Mendez rded Speak language other than French at home Not on file 02/27/2023 Want [...] Conversion Note - Historical ProviderMD - 08/26/2021 10:06 PM CDT Pain Assessment [...] on filedocumented in this encounter Care Teams Correctional Captain Relationship Specialty Start Date End Date Linh Doty, 8 [facility] [address] [place] [address] PCP - General Family Medicine 11/04/22 Lizzie Alves PA-C 1401 [facility], [facility] [address] [place] [address] Hospitalist Cardiology 05/27/23 Kaushik Mariscal MD 1401 [facility] [address] [place] [address] Electrical And Instrument Technician Electrophysiology 11/18/23 documented as of this encounter
--- OUTSIDE RECORDS SUMMARY | 2024-08-23 13:34 | XMS_ITS | Encounter Summary ---
Author Organization [employer] ([place], [place], [place], [place]) Address [address] [place] [address] Care Team Providers Care Interface Control Officer Name Role Phone Lalitha Linhkarthikeyan Mazariegos DO Primary Care Provider Lizzie Alves PA-C Unavailable [phone] Kaushik Mariscal MD Unavailable Encounter Details Date Type Department Care Team (Late st Contact Info) Description 07/17/2021 Transcribed Document [facility] Family Medicine [address] [place] [address] ProviderChad MD [address] [place] [address] Social History Tobacco Use Types Packs/Day Years Used Date Smoking Tobacco: Never Assessed Family and Community Support Answer Geremias e Recorded Help with Day to Day Activities Not on file 02/27/2023 Feeling Lonely or Isolated Not on file 02/27 Educational Attainment Answer Date Mendez rded Speak language other than Central African at home Not on file 02/27/2023 [...] Conversion Note - Historical ProviderMD - 07/17/2021 2:49 PM CDT UM Authorization Entered On: 07/17/2021 14:49 EDT Performed On: 07/17/2021 14:49 EDT by EZEKIEL PHILLIPS RN Primary Insurance Authorization Authorization and Policy Numbers : Insurance 1 Health Plan: [employer]ED [employer]IC[employer] Policy Number: [id number] Authorization Number: Insurance Primary Name : [employer] [facility] [employer] Policy Number: [id number] Authorized Service Begin Date-Primary : 07/18/2021 EDT Historical Authorization Comments-Primary : No Authorization Comments Found EZEKIEL PHILLIPS RN - 07/17/2021 14:49 EDT Electronically signed by Rekha Ranken [facility] Conversion [address] Magistrate Cerner at 05/27/2022 9:10 PM CDT documented in this encounter Plan of Treatment Not on file documented as of this encounter Visit Diagnoses Not on filedocumented in this encounter Care Teams Interface Control Officer Relationship Specialty Start Date End Date Linh Doty, DO 8 [facility] [address] [place] [address] PCP - General Family Medicine 11/04/22 Lizzie Alves PA-C [address] [facility], [facility] [address] [place] [address] Hospitalist Cardiology 05/27/23 Kaushik Mariscal MD [address] [facility] [address] [place] [address] Vocational Nurse Electrophysiology 11/18/23 documented as of this encounter
--- OUTSIDE RECORDS SUMMARY | 2024-08-23 13:34 | XMS_ITS | Encounter Summary ---
Author Organization [employer] ([place], [place], [place], [place]) Address [address] [place] [address] Care Team Providers Care Metal Polisher Name Role Phone Lalitha Linh Delilah DAVIS Primary Care Provider [phone] Lizzie Alves PA-C Unavailable [phone] Kaushik Mariscal MD Unavailable Encounter Details Date Type Department Care Team (Late st Contact Info) Description 08/09/2021 Transcribed Document [facility] [place] [address] [place] [address] ProviderChad MD [address] [place] [address] Social History Tobacco Use Types [...] Cerner Conversion Note - Historical ProviderMD - 08/09/2021 2:46 PM CDT UM Authorization Entered On: 08/09/2021 14:50 EDT Performed On: 08/09/2021 14:46 EDT by ERNIE CAMARA, Border Patrol Officer Primary Insurance Authorization Authorization and Policy Numbers : Insurance 1 Health Plan: [employer] Policy Number: [id number] Authorization Number: Insurance Primary Name : [employer] Policy Number: [id number] Authorization Status-Primary : Admit approved Auth/Referral Contact Name-Primary : DC Reference Number-Primary : [id number] Authorization Number-Primary : [id number] Number of Days Authorized-Primary : 5 Day(s) Authorized Service Begin Date-Primary : 07/16/2021 EDT Authorized Service End Date-Primary : 07/21/2021 EDT Authorization Comments-Primary : Still pending per website Historical Authorization Comments-Primary : Comment 1: Remains pending per portal (WALDO PIÑA RN 08/06/2021 13:43) Comment 2: Per website - Under review. (Bonita Katz, Lymphedema Therapist 07/31/2021 08:56) Comment 3: Discharge summary as well as continued stay clinical 07/23 - discharge faxed. (Bonita Katz, Lymphedema Therapist 07/29/2021 15:50) Comment 4: 07/20-07/22 CLINICALS FAXED VIA [employer] (Yessi Alaniz RN 07/22/2021 16:49) Comment 5: PER PORTAL IP APPROVED FOR 07/16 UP TO BUT NOT INCLUDING 07/22 (Khushi Jones Rn-Utilization Review 07/19/2021 13:56) Comment 6: UNDER REVIEW PER PORTAL (Khushi Jones Rn-Utilization Review 07/19/2021 09:22) Comment 7: CLINICAL FAXED VIA [employer] (Khushi Jones Rn-Utilization Review 07/17/2021 15:22) Comment 8: REF# PER GUME. CLINICAL FAXED VIA [employer] (Khushi Jones Rn-Utilization Review 07/17/2021 15:17) ERNIE CAMARA, Border Patrol Officer - 08/09/2021 14:46 EDT Electronically signed by Rekha [facility] Conversion Correctional Facility Psychiatrist Cerner at 05/27/2022 9:18 PM CDT documented in this encounter Plan of Treatment Not on file documented as of this encounter Visit Diagnoses Not on filedocumented in this encounter Care Teams Metal Polisher Relationship Specialty Start Date End Date Linh Doty, [address] [facility] [address] [place] [address] PCP - General Family Medicine 11/04/22 Lizzie Alves PA-C [address] [place] [address], [facility] [address] [place] [address] Hospitalist Cardiology 05/27/23 Kaushik Mariscal MD [address] [facility] [address] [place] [address] [employer] Former Brace End Electrophysiology 11/18/23 documented as of this encounter
--- OUTSIDE RECORDS SUMMARY | 2024-08-23 13:34 | XMS_ITS | Encounter Summary ---
Author Organization Healthcare Address [address] [place] [address] Care Team Providers Care Retail Stocker Name Role Phone MelaraFelicitas Delilah DENISE Primary Care Provider [phone] Encounter Details Date Type Department Care Team [...] Patient Health Questionnaire-2 Score 0 05/30/2024 [facility] - Occupational [...] Upcoming Encounters Date Type Department Care Team ([facility] Contact Info) Description 11/30/2024 2:20 PM EDT Office Visit [facility] Endocrinology [address] [place] [address] Natalia Alves MD [address] [place] [address] 12/08/2024 3:00 PM EDT Office Visit Medical Office Building Surgical Specialties [address] [facility], [address] [place] [address] Amish Escobedo MD [address] [facility] [address] [place] [address] documented as of this encounter Visit Diagnoses Not on filedocumented in this encounter Additional Health Concerns Assessment Noted Time A fall risk assessment has been complete d for the patient 06/02/2024 1:58 PM EDT A Body Mass Index follow-up plan has been documented for the patient 06/02/2024 2:45 PM EDT documented as of this encounter Care Teams Retail Stocker Relationship Specialty Start Date End Date Felicitas Melara APRN [address] [place] [address] PCP - General 01/29/24 documented as of this encounter
--- OUTSIDE RECORDS SUMMARY | 2024-08-23 13:34 | XMS_ITS | Encounter Summary ---
Author Organization [employer] ([place], [place], [place], [place]) Address [address] [place] [address] Care Team Providers Care Harpooner Name Role Phone Lalitha Linhkarthikeyan Mazariegos DO Primary Care Provider [phone] Lizzie Alves PA-C Unavailable [phone] Kaushik Mariscal MD Unavailable Encounter Details Date Type Department Care Team (Late st Contact Info) Description 07/17/2021 Transcribed Document [facility] [place] [address] [place] [address] ProviderChad MD [address] [place] [address] Social History Tobacco Use Types Packs/Day Years Used Date Smoking Tobacco: Never Assessed Family and Community Support Answer Geremias e Recorded Help with Day to Day Activities Not on file 02/27/2023 Feeling Lonely or Isolated Not on file 02/27 Educational Attainment Answer Date Mendez rded Speak language other than Peruvian at home Not on file 02/27/2023 Want [...] Conversion Note - Historical ProviderMD - 07/17/2021 3:32 PM CDT ED Discharge [...] Off) : Called Mode Of Departure : Stretcher Joe Cuello RN - 07/17/2021 15:32 EDT documented in this encounter Plan of Treatment Not on file documented as of this encounter Visit Diagnoses Not on filedocumented in this encounter Care Teams Harpooner Relationship Specialty Start Date End Date Linh Doty, 8 [facility] [address] [place] [address] PCP - General Family Medicine 11/04/22 Lizzie Alves PA-C [address] [place] [address], [facility] [address] [place] [address] Hospitalist Cardiology 05/27/23 Kaushik Mariscal MD [address] [facility] [address] [place] [address] Advertisement Distributor Electrophysiology 11/18/23 documented as of this encounter
--- OUTSIDE RECORDS SUMMARY | 2024-08-23 13:34 | XMS_ITS | Encounter Summary ---
Author Organization [employer] ([place], [place], [place], [place]) Address [address] [place] [address] Care Team Providers Care Client Technical Specialist Name Role Phone Lalitha Linhkarthikeyan Mazariegos DO Primary Care Provider [phone] Lizzie Alves PA-C Unavailable [phone] Kaushik Mariscal MD Unavailable Encounter Details Date Type Department Care Team (Late st Contact Info) Description 08/27/2021 Transcribed Document [facility] [place] [address] [place] [address] ProviderChad MD [address] [place] [address] Social History Tobacco Use Types Packs/Day Years Used Date Smoking Tobacco: Never Assessed Family and Community Support Answer Geremias e Recorded Help with Day to Day Activities Not on file 02/27/2023 Feeling Lonely or Isolated Not on file 02/27 Educational Attainment Answer Date Mendez rded Speak language other than Malawian at home Not on file 02/27/2023 Want [...] Conversion Note - Historical ProviderMD - 08/27/2021 12:40 PM CDT Patient Education [...] Fats and oils Meat fat, or shortening. [place] butter, hydrogenated oils, palm oil, coconut oil, [...] provider. Document Revised: 04/01/2018 Document Reviewed: 03/05/2018 [employer] Patient Education ? 2020 [employer]. Pharmacology General Anesthesia, Adult, Care After This [...] activities are safe for you. ??? Take hjdj-nuk-zzabogh and prescription medicines only as told by [...] provider. Document Revised: 10/11/2020 Document Reviewed: 05/10/2020 [employer] Patient Education ? 2020 [employer] Procedures Pacemaker Implantation, Adult, Care After [...] these instructions at home: Medicines ??? Take lqxb-gux-zubugde and prescription medicines only as told by [...] or bruising over the incision. ??? Take dkus-tli-lvsydax and prescription medicines only as told by [...] provider. Document Revised: 12/28/2019 Document Reviewed: 12/28/2019 [employer] Patient Education ? 2020 [employer]. Electronically signed by Reyna Da Silva Conversion Fast Food Assistant Restaurant Manager Cerner at 05/27/2022 9:02 PM CDT documented in this encounter Plan of Treatment Not on file documented as of this encounter Visit Diagnoses Not on filedocumented in this encounter Care Teams Client Technical Specialist Relationship Specialty Start Date End Date Linh Doty, 8 [facility] [address] [place] [address] PCP - General Family Medicine 11/04/22 Lizzie Alves PA-C [address] [facility], [facility] [address] [place] [address] Hospitalist Cardiology 05/27/23 Kaushik Mariscal MD [address] [facility] [address] [place] [address] Deep Fryer Assembler Electrophysiology 11/18/23 documented as of this encounter
--- OUTSIDE RECORDS SUMMARY | 2024-08-23 13:34 | XMS_ITS | Encounter Summary ---
Author Organization [employer] ([place], [place], [place], [place]) Address [address] [place] [address] Care Team Providers Care Hide Cleaner Name Role Phone Lalitha Linhkarthikeyan Mazariegos DO Primary Care Provider [phone] Lizzie Alves PA-C Unavailable [phone] Kaushik Mariscal MD Unavailable Encounter Details Date Type Department Care Team (Late st Contact Info) Description 07/17/2021 Transcribed Document [facility] [place] [address] [place] [address] ProviderChad MD [address] [place] [address] Social History Tobacco Use Types Packs/Day Years Used Date Smoking Tobacco: Never Assessed Family and Community Support Answer Geremias e Recorded Help with Day to Day Activities Not on file 02/27/2023 Feeling Lonely or Isolated Not on file 02/27 Educational Attainment Answer Date Mendez rded Speak language other than Chilean at home Not on file 02/27/2023 Want [...] Conversion Note - Historical ProviderMD - 07/17/2021 8:29 AM CDT Patient: LENA MENDOZA Age: 55 [...] with bloody drainage. Patient was admitted to [facility] on 07/16/2021. Post generator change, patient [...] m - 1,000 mg, IV Piggyback, Inj, [id number], infuse over 1 Hour(s) Cardiovascular carvedilol - [...] 14 (JUL 16 15:00) H 38 (JUL 17:07) SBP H 148 (JUL 17 08:07) 115 (JUL 16 23:11) H 192 (JUL 16 14:00) DBP 73 (JUL 17 08:07) 65 (JUL 16 23:11) H 110 (JUL 16 15:00) MAP 105 (JUL 17:07) 84 (JUL 16 23:11) 128 (JUL 16 14:30) SpO2 96 (JUL 17:07) L 85 (JUL 16 13:30) 98 (JUL [...] Normal strength, No tenderness. Integumentary: Warm, Dry, [place], No pallor, No rash, ICD site left [...] 08) H 17.9 (JUL 07) HCT H 53.4 (JUL 08) H 56.1 (JUL 16) Plt L 132 (JUL 08) L 140 (JUL 16) Na 138 (JUL 08) 138 (MADELEINE 07) K 3.8 (MADELEINE 08) 4.1 (MADELEINE 07) Cl 107 (MADELEINE 08) 105 (MADELEINE 07) CO2 32 (MADELEINE 08) 28 (MADELEINE 07) BUN 10 (MADELEINE 08) 10 (MADELEINE 07) Cr 0.80 (MADELEINE 08) 0.80 (MADELEINE 07) Glu R 93 (MADELEINE 08) 97 (MADELEINE 07) Ca 10.1 (MADELEINE 08) H 10.7 (MADELEINE 07) Lactic 1.0 (MADELEINE 07) PT 11.1 (MADELEINE 07) INR 1.0 (MADELEINE 07) AST 23 (MADELENIE 08) 26 (MADELEINE 07) ALT 21 (MADELEINE 08) 25 (MADELEINE 07) ALK P 122 (JUL 08) H 142 (JUL 07) T Bili 0.7 (MADELEINE 08) 0.6 (MADELEINE 07) PTN 7.0 (MADELEINE 08) 7.6 (MADELEINE 07) ALB L 3.3 (MADELEINE 08) 3.5 (MADELEINE 07) , ACC: [id number] ORDER: Culture Blood DATE: 07/16/2021 12:39 SOURCE: Blood SITE: Reports Pre 07/17/2021 06:01 Culture less than 24 Hrs old == ACC: [id number] ORDER: Culture Blood DATE: 07/16/2021 12:39 SOURCE: Blood SITE: Reports Pre 07/17/2021 06:01 Culture less than 24 Hrs old == . Chest x-ray results Radiology Results (Last 48 hours) [id number] -- 07/16/2021 14:13 CR Chest 1 Vw [...] Isis Katz RN, cardiology. Electronically signed by Reyna Da Silva Conversion Receptionist Doctor'S Office Cerner at 05/27/2022 9:00 PM CDT documented in this encounter Plan of Treatment Not on file documented as of this encounter Visit Diagnoses Not on filedocumented in this encounter Care Teams Hide Cleaner Relationship Specialty Start Date End Date Linh Doty, DO [address] [facility] [address] [place] [address] PCP - General Family Medicine 11/04/22 Lizzie Alves PA-C 14[address] [facility], [address] [place] [address] Hospitalist Cardiology 05/27/23 Kaushik Mariscal MD [address] [facility] [address] [place] [address] Knitting Teacher Electrophysiology 11/18/23 documented as of this encounter
--- OUTSIDE RECORDS SUMMARY | 2024-08-23 13:34 | XMS_ITS | Encounter Summary ---
Author Organization [employer] ([place], [place], [place], [place]) Address [address] [place] [address] Care Team Providers Care Photography Instructor Name Role Phone Lalitha Linhkarthikeyan Mazariegos DO Primary Care Provider [phone] Lizzie Alves PA-C Unavailable [phone] Kaushik Mariscal MD Unavailable Encounter Details Date Type Department Care Team (Late st Contact Info) Description 07/18/2021 Transcribed Document [facility] [place] [address] [place] [address] ProviderChad MD [address] [place] [address] Social History Tobacco Use Types Packs/Day Years Used Date Smoking Tobacco: Never Assessed Family and Community Support Answer Geremias e Recorded Help with Day to Day Activities Not on file 02/27/2023 Feeling Lonely or Isolated Not on file 02/27 Educational Attainment Answer Date Mendez rded Speak language other than Kuwaiti at home Not on file 02/27/2023 Want [...] Conversion Note - Historical ProviderMD - 07/18/2021 7:04 AM CDT Patient: LENA MENDOZA Age: 55 years Sex: Female : 1965 Associated Diagnoses: None Author: YO GASTELUM, [facility] 55 y/o F with draining hematoma from AICD generator change 07/01/21 PMH CAD, ischemic cardiomyopathy, HF, LV apical thrombus- on apixaban (held with hematoma) AICD 2011 Consult: Vancomycin changed to Daptomycin Consulting MD: Melissa Indication: AICD hematoma Goal: vancomycin trough - D/C'd ID: Yolande Yap wt = 62kg I/O = 1150 / 600 + 2 voids NKDA ABX: zosyn 07/16-07/18 Vancomycin 07/16-07/18 Daptomycin / Ceftriaxone (start 07/18) Labs (Last four charted values) WBC 9.6 (JUL 09) 8.4 (JUL 08) 7.4 (JUL 16) HB H 16.2 (JUL 09) H 16.9 (JUL 08) H 17.9 (JUL 07) HCT H 52.1 (JUL 09) H 53.4 (JUL 08) H 56.1 (JUL 07) Plt L 106 (JUL 09) L 132 (MADELEINE 08) L 140 (JUL 07) Na L 135 (MADELEINE 09) 138 (MADELEINE 08) 138 (MADELEINE 07) K 3.6 (MADELEINE 09) 3.8 (MADELEINE 08) 4.1 (JUL 07) Cl 103 (JUL 09) 107 (JUL 08) 105 (JUL 07) CO2 H 34 (JUL 09) 32 (JUL 08) 28 (JUL 07) BUN 13 (JUL 09) 10 (MADELEINE 08) 10 (JUL 07) Cr 0.90 (MADELEINE 09) 0.80 (MADELEINE 08) 0.80 (MADELEINE 07) Glu R 99 (JUL 09) 93 (MADELEINE 08) 97 (JUL 07) Ca 10.0 (MADELEINE [...] 96 (JUL 17 12:30) H 148 (JUL 17:07) DBP 60 (JUL 18 01:30) L 55 (JUL 17 10:00) 74 (JUL 17 09:00) MAP 72 (JUL 18 01:30) 72 (JUL 18 01:30) 105 (JUL 17 08:07) SpO2 96 (JUL 18 01:00) L 88 (JUL 17 15:30) 96 (JUL 17:07) Cultures: 07/16: Blood NGTD 07/17: Wound NGTD [...] Thank you for this consult. Yo Gastelum [facility] beeper [phone] Electronically signed by [facility], [facility] Conversion Brush Filler Hand Cerner at 05/27/2022 9:00 PM CDT documented in this encounter Plan of Treatment Not on file documented as of this encounter Visit Diagnoses Not on filedocumented in this encounter Care Teams Photography Instructor Relationship Specialty Start Date End Date Linh Doty, DO [address] [place] [address] PCP - General Family Medicine 11/04/22 Lizzie Alves PA-C [address], [address] [place] [address] Hospitalist Cardiology 05/27/23 Kaushik Mariscal MD [address] [facility] [place] [address] [employer] Hospitalist Electrophysiology 11/18/23 documented as of this encounter
--- OUTSIDE RECORDS SUMMARY | 2024-08-23 13:34 | XMS_ITS | Encounter Summary ---
Author Organization [employer] ([place], [place], [place], [place]) Address [address] [place] [address] Care Team Providers Care Director Of Rooms Name Role Phone Lalitha Linhkarthikeyan Mazariegos DO Primary Care Provider [phone] Lizzie Alves PA-C Unavailable [phone] Kaushik Mariscal MD Unavailable Encounter Details Date Type Department Care Team (Late st Contact Info) Description 07/16/2021 Transcribed Document [facility] Radiology [address] [id number] Yanick Torres MD [address] [place] [address] [place] [address] Social History Tobacco Use Types Packs/Day Years Used Date Smoking Tobacco: Never Assessed Family and Community Support Answer Geremias e Recorded Help with Day to Day Activities Not on file 02/27/2023 Feeling Lonely or Isolated Not on file 02/27 Educational Attainment Answer Date Mendez rded Speak language other than Malian at home Not on file 02/27/2023 Want [...] 50 mcg inhalation powder: 1 Puff, Inhalation, [id number], rinse mouth and throat after use, 30 [...] 50 mcg inhalation powder 1 Puff, Inhalation, [id number] folic acid 1 mg oral tablet 1 [...] At risk for sleep apnea / IMO [id number] / Confirmed High cholesterol / SNOMED CT [id number] / Confirmed, Active Problems (12) Arteriosclerosis At risk for sleep apnea Cardiomyopathy Chronic CHF Current smoker Gout High cholesterol History of [place] (myocardial infarction) Intermittent claudication Pacemaker PAD (peripheral artery disease) Stented coronary artery Objective VS/Measurements Vitals Signs (last 24 hrs) Last Charted Minimum Maximum Temp 98.0 (JUL 16 12:06) 98.0 (JUL 16 12:) 98.0 (JUL 16:) Periph HR 78 (JUL 16 12:) 78 (JUL 16 12:) 78 (JUL 16:) Resp Rate 20 (JUL 16 12:) 20 (JUL 16 12:06) 20 (JUL 16 12:) SBP H 152 (JUL 16 12:06) H 152 (JUL 16 12:06) H 152 (JUL 16 12:) DBP 84 (JUL 16 12:06) 84 (JUL 16 12:06) 84 (JUL 16 12:) SpO2 L 90 (JUL 16 12:06) L 90 (JUL 16 12:) L 90 (JUL 16:) General: No acute distress. Eye: Normal conjunctiva. Neck: No jugular venous distention. Respiratory: Lungs are clear to auscultation, Respirations are non-labored, Breath sounds are equal. Cardiovascular: Regular rhythm, No gallop, S1+ S2 No S3 or S4 [place].. Gastrointestinal: Soft, Non-tender, Non-distended, Normal bowel sounds. [...] in this encounter Care Teams Director Of Rooms Relationship Specialty Start Date End Date Linh Doty, DO [address] [place] [address] PCP - General Family Medicine 11/04/22 Lizzie Alves PA-C [address], [address] [place] [address] Hospitalist Cardiology 05/27/23 Kaushik Mariscal MD 1401 [facility] [place] [address] Yarn Examiner Electrophysiology 11/18/23 documented as of this encounter
--- OUTSIDE RECORDS SUMMARY | 2024-08-23 13:34 | XMS_ITS | Encounter Summary ---
Author Organization [employer] ([place], [place], [place], [place]) Address [address] [place] [address] Care Team Providers Care Supervisor Stitching Department Name Role Phone Lalitha Linh Delilah DAVIS Primary Care Provider [phone] Lizzie Alves PA-C Unavailable [phone] Kaushik Mariscal MD Unavailable Encounter Details Date Type Department Care Team (Late st Contact Info) Description 07/17/2021 Transcribed Document [facility] Family Medicine [address] [place] [address] ProviderChad MD [address] [place] [address] Social History Tobacco Use Types Packs/Day Years Used Date Smoking Tobacco: Never Assessed Family and Community Support Answer Geremias e Recorded Help with Day to Day Activities Not on file 02/27/2023 Feeling Lonely or Isolated Not on file 02/27 Educational Attainment Answer Date Mendez rded Speak language other than Moldovan at home Not on file 02/27/2023 Want [...] Conversion Note - Historical ProviderMD - 07/17/2021 5:00 PM CDT Chart [...] filedocumented in this encounter Care Teams Supervisor Stitching Department Relationship Specialty Start Date End Date Linh Doty, DO 8 [facility] [address] [place] [address] PCP - General Family Medicine 11/04/22 Lizzie Alves PA-C [address] [place] [address], [facility] [address] [place] [address] Hospitalist Cardiology 05/27/23 Kaushik Mariscal MD 14[address] [facility] [address] [place] [address] Green Chain Puller Electrophysiology 11/18/23 documented as of this encounter
--- OUTSIDE RECORDS SUMMARY | 2024-08-23 13:34 | XMS_ITS | Encounter Summary ---
Author Organization [employer] ([place], [place], [place], [place]) Address [address] [place] [address] Care Team Providers Care High Value Associate Name Role Phone Lalitha Linhkarthikeyan Mazariegos DO Primary Care Provider [phone] Lizzie Alves PA-C Unavailable [phone] Kaushik Mariscal MD Unavailable Encounter Details Date Type Department Care Team (Late st Contact Info) Description 08/27/2021 Transcribed Document [facility] Family Medicine [address] [place] [address] ProviderChad MD [address] [place] [address] Social History Tobacco Use Types Packs/Day Years Used Date Smoking Tobacco: Never Assessed Family and Community Support Answer Geremias e Recorded Help with Day to Day Activities Not on file 02/27/2023 Feeling Lonely or Isolated Not on file 02/27 Educational Attainment Answer Date Mendez rded Speak language other than Gibraltarian at home Not on file 02/27/2023 Want [...] Conversion Note - Historical ProviderMD - 08/27/2021 1:06 PM CDT Nursing Discharge Summary Entered On: 08/27/2021 13:06 EDT Performed On: 08/27/2021 13:06 EDT by Jacquelyn Moya RN-PATIENT CARE BEDSIDE NON-EXEMPT 2 Discharge Documentation Discharge Date/Time : 08/27/2021 13:06 EDT Patient Disposition, General : Discharge Discharge To : Home without planned follow-up Jacquelyn Moya RN-PATIENT CARE BEDSIDE NON-EXEMPT 2 - 08/27/2021 13:06 EDT Electronically signed by Rekha [facility] Conversion Retail Inventory Control Clerk Cerner at 05/27/2022 9:02 PM CDT documented in this encounter Plan of Treatment Not on file documented as of this encounter Visit Diagnoses Not on filedocumented in this encounter Care Teams High Value Associate Relationship Specialty Start Date End Date Linh Doty, DO [address] [facility] [address] [place] [address] PCP - General Family Medicine 11/04/22 Lizzie Alves PA-C 1401 [facility], [facility] [address] [place] [address] Hospitalist Cardiology 05/27/23 Kaushik Mariscal MD [address] [facility] [address] [place] [address] [employer] Advisor Electrophysiology 11/18/23 documented as of this encounter
--- OUTSIDE RECORDS SUMMARY | 2024-08-23 13:34 | XMS_ITS | Encounter Summary ---
Author Organization [employer] ([place], [place], [place], [place]) Address [address] [place] [address] Care Team Providers Care Business Employment Specialist Name Role Phone Lalitha Linh Delilah DAVIS Primary Care Provider [phone] Lizzie Alves PA-C Unavailable [phone] Kaushik Mariscal MD Unavailable Encounter Details Date Type Department Care Team (Late st Contact Info) Description 08/13/2021 Transcribed Document [facility] [place] Family Medicine [address] [place] [address] ProviderChad MD [address] [place] [address] Social History Tobacco Use Types Packs/Day Years Used Date Smoking Tobacco: Never Assessed Family and Community Support Answer Geremias e Recorded Help with Day to Day Activities Not on file 02/27/2023 Feeling Lonely or Isolated Not on file 02/27 Educational Attainment Answer Date Mendez rded Speak language other than Tongan at home Not on file 02/27/2023 Want [...] Cerner Conversion Note - Historical ProviderMD - 08/13/2021 1:45 PM CDT UM Authorization Entered On: 08/13/2021 13:46 EDT Performed On: 08/13/2021 13:45 EDT by Bonita Katz, Alteration Specialist Primary Insurance Authorization Authorization and Policy Numbers : Insurance 1 Health Plan: [employer] MANAGED MEDICARE Policy Number: [id number] Authorization Number: Insurance Primary Name : [employer] MA[employer]GED MEDICARE Policy Number: [id number] Authorization Status-Primary : Approved Auth/Referral Contact Name-Primary : [place] Reference Number-Primary : [id number] Authorization Number-Primary : [id number] Number of Days Authorized-Primary : 10 Day(s) Authorized Service Begin Date-Primary : 07/16/2021 EDT Authorized Service End Date-Primary : 07/26/2021 EDT Authorization Comments-Primary : Authorized per fax 08/13/21 @ 1140. Approved inpatient stay x11 days. Historical Authorization Comments-Primary : Comment 1: Still pending per website (ERNIE CAMARA Sat Math Tutor 08/09/2021 14:46) Comment 2: Remains pending per portal (WALDO PIÑA RN 08/06/2021 13:43) Comment 3: Per website - Under review. (Bonita Katz, Alteration Specialist 07/31/2021 08:56) Comment 4: Discharge summary as well as continued stay clinical 07/23 - discharge faxed. (Bonita Katz, Alteration Specialist 07/29/2021 15:50) Comment 5: 07/20-07/22 CLINICALS FAXED VIA [employer] (Yessi Alaniz RN 07/22/2021 16:49) Comment 6: PER PORTAL IP APPROVED FOR 07/16 UP TO BUT NOT INCLUDING 07/22 (Khushi Jones Rn-Utilization Review 07/19/2021 13:56) Comment 7: UNDER REVIEW PER PORTAL (Khushi Jones Rn-Utilization Review 07/19/2021 09:22) Comment 8: CLINICAL FAXED VIA [employer] (Khushi Jones Rn-Utilization Review 07/17/2021 15:22) Comment 9: REF# PER GUME. CLINICAL FAXED VIA [employer] (Khushi Jones, Rn-Utilization Review 07/17/2021 15:17) Bonita Katz, Alteration Specialist - 08/13/2021 13:45 EDT Electronically signed by [facility], [facility] Conversion Toeing Stockings Cerner at 05/27/2022 9:16 PM CDT documented in this encounter Plan of Treatment Not on file documented as of this encounter Visit Diagnoses Not on filedocumented in this encounter Care Teams Business Employment Specialist Relationship Specialty Start Date End Date Linh Doty, DO [address] [facility] [address] [place] [address] PCP - General Family Medicine 11/04/22 Lizzie Alves PA-C [address] [place] [address], [facility] [address] [place] [address] Hospitalist Cardiology 05/27/23 Kaushik Mariscal MD [address] [facility] [address] [place] [address] Production Statistical Clerk Electrophysiology 11/18/23 documented as of this encounter
--- OUTSIDE RECORDS SUMMARY | 2024-08-23 13:34 | XMS_ITS | Encounter Summary ---
Author Organization [employer] ([place], [place], [place], [place]) Address [address] [place] [address] Care Team Providers Care Assistant Terminal Manager Name Role Phone Lalitha Linhkarthikeyan Mazariegos DO Primary Care Provider [phone] Lizzie Alves PA-C Unavailable [phone] Kaushik Mariscal MD Unavailable Encounter Details Date Type Department Care Team (Late st Contact Info) Description 07/17/2021 Transcribed Document [facility] Radiology [address] [id number] Yanick Torres MD [address] [place] [address] [place] [address] Social History Tobacco Use Types Packs/Day Years Used Date Smoking Tobacco: Never Assessed Family and Community Support Answer Geremias e Recorded Help with Day to Day Activities Not on file 02/27/2023 Feeling Lonely or Isolated Not on file 02/27 Educational Attainment Answer Date Mendez rded Speak language other than Australian at home Not on file 02/27/2023 Want [...] mL: 1,000 mg, 250 mL/Hr, IV Piggyback, [id number] Documented Medications Documented Plavix 75 mg oral [...] 50 mcg inhalation powder: 1 Puff, Inhalation, [id number], rinse mouth and throat after use, 30 [...] 50 mcg inhalation powder 1 Puff, Inhalation, U77CBhf folic acid 1 mg oral tablet 1 [...] 0.9% 250 mL 1,000 mg, IV Piggyback, [id number] Continuous: (0) PRN: (7) acetaminophen 325 mg [...] At risk for sleep apnea / IMO 40997595 / Confirmed High cholesterol / SNOMED CT 90793487 / Confirmed Canceled: At risk for sleep apnea / IMO 74481728 Canceled: COPD (chronic obstructive pulmonary disease) / SNOMED CT 10486625 Canceled: HTN (hypertension) / SNOMED CT 0777099480, Active Problems (12) Arteriosclerosis At risk for sleep apnea Cardiomyopathy Chronic CHF Current smoker Gout High cholesterol History of ND (myocardial infarction) Intermittent claudication Pacemaker PAD (peripheral [...] 110 (JUL 16 15:00) MAP 96 (JUL 17:34) 84 (JUL 16 23:11) 128 (JUL 16 14:30) SpO2 97 (JUL 17:34) L 85 (JUL 16 13:30) 98 (JUL 17 03:00) General: No acute distress. Eye: Normal conjunctiva. Neck: No jugular venous distention. Respiratory: Lungs are clear to auscultation, Respirations are non-labored, Breath sounds are equal. Cardiovascular: Regular rhythm, No gallop, S1+ S2 No S3 or S4 Rich.. Gastrointestinal: Soft, Non-tender, Non-distended, Normal bowel sounds. [...] filedocumented in this encounter Care Teams Assistant Terminal Manager Relationship Specialty Start Date End Date Linh Doty, DO 8 [facility] [address] [place] [address] PCP - General Family Medicine 11/04/22 Lizzie Alves PA-C [address] [place] [address], [facility] [address] [place] [address] Hospitalist Cardiology 05/27/23 Kauhsik Mariscal MD [address] [facility] [address] [place] [address] Sustainability Engineer Electrophysiology 11/18/23 documented as of this encounter
--- OUTSIDE RECORDS SUMMARY | 2024-08-23 13:34 | XMS_ITS | Encounter Summary ---
Author Organization [employer] ([place], [place], [place], [place]) Address [address] [place] [address] Care Team Providers Care Dehydration Plant Operator Name Role Phone Lalitha Linhkarthikeyan Mazariegos DO Primary Care Provider [phone] Lizzie Alves PA-C Unavailable [phone] Dion Mariscal MD Unavailable Encounter Details Date Type Department Care Team (Late st Contact Info) Description 07/17/2021 Transcribed Document [facility] [address] [place] [address] ProviderChad MD [address] [place] [address] Social History Tobacco Use Types Packs/Day [...] Conversion Note - Historical ProviderMD - 07/17/2021 8:50 AM CDT Patient: LENA MENDOZA [facility]: [id number] Age: 55 years Sex: Female : 1965 [...] mL: 1,000 mg, 250 mL/Hr, IV Piggyback, [id number] Documented Medications Documented Plavix 75 mg oral [...] 50 mcg inhalation powder: 1 Puff, Inhalation, U42GUwa, rinse mouth and throat after use, 30 [...] 50 mcg inhalation powder 1 Puff, Inhalation, X96RYhm folic acid 1 mg oral tablet 1 [...] 0.9% 250 mL 1,000 mg, IV Piggyback, B79WWlh Continuous: (0) PRN: (7) acetaminophen 325 mg [...] All Problems High cholesterol / SNOMED CT 48907634 / Confirmed PAD (peripheral artery disease) / SNOMED CT 1748960054 / Confirmed Chronic CHF / SNOMED CT 474093448 / Confirmed Current smoker / SNOMED CT 277424440 / Confirmed Arteriosclerosis / SNOMED CT 363341721 / Confirmed Intermittent claudication / SNOMED CT 178653391 / Confirmed Cardiomyopathy / SNOMED CT 833068321 / Confirmed History of SC (myocardial infarction) / SNOMED CT 7241220450 / Confirmed Pacemaker / SNOMED CT 9634166486 / Confirmed Stented coronary artery / SNOMED CT 7483056368 / Confirmed Gout / SNOMED CT 476586025 / Confirmed At risk for sleep apnea / IMO 79831770 / Confirmed Resolved: History of ventricular tachycardia / SNOMED CT 5937266651 ICD placed in past for arrythmia. Canceled: HTN (hypertension) / SNOMED CT 5812108175 Canceled: COPD (chronic obstructive pulmonary disease) / SNOMED CT 60148240 Canceled: At risk for sleep apnea / IMO 57354742 Canceled: History of ischemic cardiomyopathy / SNOMED CT 523761827 Canceled: Abdominal aortic stenosis / SNOMED CT 026271713 Canceled: Shortness of breath / SNOMED CT 925489030, Active Problems (12) Arteriosclerosis At risk for [...] Normal range of motion. Integumentary: Warm, Dry, [place]. Neurologic: Alert, Oriented. Psychiatric: Cooperative, Appropriate mood [...] 56 Units/Liter 07/16/2021 18:21 ProBNP 1947 pg/mL HI 07/16/2021 13:15 CR Chest 1 Vw Portable [...] sent from clinic to be admitted by [facility] physician group for IV antibiotics. Will request blood cultures, consult ID, further plans to follow. documented in this encounter Plan of Treatment Not on file documented as of this encounter Visit Diagnoses Not on filedocumented in this encounter Care Teams Dehydration Plant Operator Relationship Specialty Start Date End Date Linh Doty, DO 8 [facility] [address] [place] [address] PCP - General Family Medicine 11/04/22 Lizzie Alves PA-C [address] [place] [address] Hospitalist Cardiology 05/27/23 Dion Mariscal MD [address] [facility] [address] [place], [place] [address] Window Installer Electrophysiology 11/18/23 documented as of this encounter
--- OUTSIDE RECORDS SUMMARY | 2024-08-23 13:34 | XMS_ITS | Encounter Summary ---
Author Organization [employer] ([place], [place], [place], [place]) Address [address] [place] [address] Care Team Providers Care Litigation Attorney Associate Name Role Phone Lalitha Linhkarthikeyan Mazariegos DO Primary Care Provider [phone] Lizzie Alves PA-C Unavailable [phone] Kaushik Mariscal MD Unavailable Encounter Details Date Type Department Care Team (Late st Contact Info) Description 08/06/2021 Transcribed Document [facility] [place] [address] [place] [address] ProviderChad MD [address] [place] [address] Social History Tobacco Use Types [...] Cerner Conversion Note - Historical ProviderMD - 08/06/2021 1:43 PM CDT UM Authorization Entered On: 08/06/2021 13:43 EDT Performed On: 08/06/2021 13:43 EDT by WALDO PIÑA RN Primary Insurance Authorization Authorization and Policy Numbers : Insurance 1 Health Plan: [employer] MANAGED MEDICARE Policy Number: [id number] Authorization Number: Insurance Primary Name : [employer] MANAGED MEDICARE Policy Number: [id number] Authorization Status-Primary : Admit approved Auth/Referral Contact Name-Primary : [place] Reference Number-Primary : [id number] Authorization Number-Primary : [id number] Number of Days Authorized-Primary : 5 Day(s) Authorized Service Begin Date-Primary : 07/16/2021 EDT Authorized Service End Date-Primary : 07/21/2021 EDT Authorization Comments-Primary : Remains pending per portal Historical Authorization Comments-Primary : Comment 1: Per website - Under review. (Bonita Katz, Closet Builder 07/31/2021 08:56) Comment 2: Discharge summary as well as continued stay clinical 07/23 - discharge faxed. (Bonita Katz, Closet Builder 07/29/2021 15:50) Comment 3: 07/20-07/22 CLINICALS FAXED VIA [employer] (Yessi Alaniz RN 07/22/2021 16:49) Comment 4: PER PORTAL IP APPROVED FOR 07/16 UP TO BUT NOT INCLUDING 07/22 (Khushi Jones Rn-Utilization Review 07/19/2021 13:56) Comment 5: UNDER REVIEW PER PORTAL (Khushi Jones Rn-Utilization Review 07/19/2021 09:22) Comment 6: CLINICAL FAXED VIA [employer] (Khushi Jones Rn-Utilization Review 07/17/2021 15:22) Comment 7: REF# PER GUME. CLINICAL FAXED VIA [employer] (Khushi Jones Rn-Utilization Review 07/17/2021 15:17) WALDO PIÑA RN - 08/06/2021 13:43 EDT documented in this encounter Plan of Treatment Not on file documented as of this encounter Visit Diagnoses Not on filedocumented in this encounter Care Teams Litigation Attorney Associate Relationship Specialty Start Date End Date Linh Doty, 8 [facility] [address] [place] [address] PCP - General Family Medicine 11/04/22 Lizzie Alves PA-C 14[address] [facility], [facility] [address] [place] [address] Hospitalist Cardiology 05/27/23 Kaushik Mariscal MD [address] [facility] [address] [place] [address] Waterproof Bag Sewer Electrophysiology 11/18/23 documented as of this encounter
--- OUTSIDE RECORDS SUMMARY | 2024-08-23 13:34 | XMS_ITS | Encounter Summary ---
Author Organization [employer] ([place], [place], [place], [place]) Address [address] [place] [address] Care Team Providers Care Motorized Squad Commanding Officer Name Role Phone Lalitha Linhkarthikeyan Mazariegos DO Primary Care Provider [phone] Lizzie Alves PA-C Unavailable [phone] Kaushik Mariscal MD Unavailable Encounter Details Date Type Department Care Team (Late st Contact Info) Description 07/16/2021 Transcribed Document [facility] Family Medicine [address] [place] [address] ProviderChad MD [address] [place] [address] Social History Tobacco Use Types Packs/Day Years Used Date Smoking Tobacco: Never Assessed Family and Community Support Answer Geremias e Recorded Help with Day to Day Activities Not on file 02/27/2023 Feeling Lonely or Isolated Not on file 02/27 Educational Attainment Answer Date Mendez rded Speak language other than Belarusian at home Not on file 02/27/2023 Want [...] Conversion Note - Historical ProviderMD - 07/16/2021 4:33 PM CDT Patient: LENA MENDOZA Age: 55 [...] with bloody drainage. Patient was admitted to [facility] on 07/16/2021. Post generator change, [...] m - 1,000 mg, IV Piggyback, Inj, K96RQwm, infuse over 1 Hour(s) Cardiovascular carvedilol - [...] At risk for sleep apnea / IMO 00156655 / Confirmed High cholesterol / SNOMED CT 85207659 / Confirmed Canceled: At risk for sleep apnea / IMO 32954469 Canceled: COPD (chronic obstructive pulmonary disease) / SNOMED CT 16896510 Canceled: HTN (hypertension) / SNOMED CT 5660743555, Active Problems (12) Arteriosclerosis At risk for sleep apnea Cardiomyopathy Chronic CHF Current smoker Gout High cholesterol History of [place] (myocardial infarction) Intermittent claudication Pacemaker PAD (peripheral [...] Normal strength, No tenderness. Integumentary: Warm, Dry, [place]. Neurologic: Alert, Oriented, Normal sensory, Normal motor [...] Radiology results Radiology Results (Last 48 hours) [id number] -- 07/16/2021 14:13 CR Chest 1 Vw [...] of device. D/w Isis Katz RN, cardiology. documented in this encounter Plan of Treatment Not on file documented as of this encounter Visit Diagnoses Not on filedocumented in this encounter Care Teams Motorized Squad Commanding Officer Relationship Specialty Start Date End Date Linh Doyt, DO 8 [facility] [address] [place] [address] PCP - General Family Medicine 11/04/22 Lizzie Alves PA-C 1401 [facility], [facility] [address] [place] [address] Hospitalist Cardiology 05/27/23 Kaushik Mariscal MD [address] [facility] [address] [place] [address] Labor Contractor Electrophysiology 11/18/23 documented as of this encounter
--- OUTSIDE RECORDS SUMMARY | 2024-08-23 13:34 | XMS_ITS | Encounter Summary ---
Author Organization [employer] ([place], [place], [place], [place]) Address [address] [place] [address] Care Team Providers Care Lens Finisher Name Role Phone Lalitha Linhkarthikeyan Mazariegos DO Primary Care Provider [phone] Lizzie Alves PA-C Unavailable [phone] Kaushik Mariscal MD Unavailable Encounter Details Date Type Department Care Team (Late st Contact Info) Description 07/16/2021 Transcribed Document [facility] [place] Family Medicine [address] [place] [address] ProviderChad MD [address] [place] [address] Social History Tobacco Use Types Packs/Day Years Used Date Smoking Tobacco: Never Assessed Family and Community Support Answer Geremias e Recorded Help with Day to Day Activities Not on file 02/27/2023 Feeling Lonely or Isolated Not on file 02/27 Educational Attainment Answer Date Mendez rded Speak language other than Cameroonian at home Not on file 02/27/2023 Want [...] Conversion Note - Historical ProviderMD - 07/16/2021 2:52 PM CDT Patient: LENA MENDOZA Age: 55 [...] 12:) 78 (JUL 16 12:) 78 (JUL 16 12:) Resp Rate 20 (JUL 16 12:) 20 (JUL 16 12:06) 20 (JUL 16 12:) SBP H 152 (JUL 16 12:06) H 152 (JUL 16 12:06) H 152 (JUL 16 12:06) DBP 84 (JUL 16 12:06) 84 (JUL 16 12:06) 84 (JUL 16 12:06) SpO2 L 90 (JUL 16 12:06) L 90 (JUL 16 12:06) L 90 (MADELEINE 07 12:06) Creatinine Clearance (Current Encounter/Past 24 Hours) Creatinine [...] for this consult. Rose Mary Hickey PharmD [phone] Electronically signed by Rekha, [facility] Conversion Showroom Sales Assistant Cerner at 05/27/2022 9:11 PM CDT documented in this encounter Plan of Treatment Not on file documented as of this encounter Visit Diagnoses Not on filedocumented in this encounter Care Teams Lens Finisher Relationship Specialty Start Date End Date Linh Doty, 8 [facility] [address] [place] [address] PCP - General Family Medicine 11/04/22 Lizzie Alves PA-C [address] [place] [address], [facility] [address] [place] [address] Hospitalist Cardiology 05/27/23 Kaushik Mariscal MD [address] [facility] [address] [place] [address] Brickmason Contractor Electrophysiology 11/18/23 documented as of this encounter
--- OUTSIDE RECORDS SUMMARY | 2024-08-23 13:34 | XMS_ITS | Encounter Summary ---
Author Organization [employer] ([place], [place], [place], [place]) Address [address] [place] [address] Care Team Providers Care Label Designer Name Role Phone Lalitha Linhkarthikeyan Mazariegos DO Primary Care Provider [phone] Lizzie Alves PA-C Unavailable [phone] Kaushik Mariscal MD Unavailable Encounter Details Date Type Department Care Team (Late st Contact Info) Description 07/17/2021 Transcribed Document [facility] [place] [address] [place] [address] ProviderChad MD [address] [place] [address] Social History Tobacco Use Types Packs/Day Years Used Date Smoking Tobacco: Never Assessed Family and Community Support Answer Geremias e Recorded Help with Day to Day Activities Not on file 02/27/2023 Feeling Lonely or Isolated Not on file 02/27 Educational Attainment Answer Date Mendez rded Speak language other than Citizen [place] at home Not on file 02/27/2023 Want [...] Conversion Note - Historical ProviderMD - 07/17/2021 3:13 PM CDT UM Authorization Entered On: 07/17/2021 15:14 EDT Performed On: 07/17/2021 15:13 EDT by Khushi Jones Rn-Utilization Review Primary Insurance Authorization Authorization and Policy Numbers : Insurance 1 Health Plan: [employer] MANAGED MEDICARE Policy Number: [id number] Authorization Number: Insurance Primary Name : [facility] MANAGED MEDICARE Policy Number: [id number] Authorized Service Begin Date-Primary : 07/18/2021 EDT Historical Authorization Comments-Primary : No Authorization Comments Found Khushi Jones Rn-Utilization Review - 07/17/2021 15:13 EDT Electronically signed by Rekha [facility] Conversion Cancer Center Director Cerner at 05/27/2022 9:20 PM CDT documented in this encounter Plan of Treatment Not on file documented as of this encounter Visit Diagnoses Not on filedocumented in this encounter Care Teams Label Designer Relationship Specialty Start Date End Date Linh Doty, DO 8 [facility] [address] [place] [address] PCP - General Family Medicine 11/04/22 Lizzie Alves PA-C [address] [place] [address], [facility] [address] [place] [address] Hospitalist Cardiology 05/27/23 Kaushik Mariscal MD 1401 [facility] [address] [place] [address] Carpenter Form Electrophysiology 11/18/23 documented as of this encounter
--- OUTSIDE RECORDS SUMMARY | 2024-08-23 13:34 | XMS_ITS | Encounter Summary ---
Author Organization [employer] ([place], [place], [place], [place]) Address [address] [place] [address] Care Team Providers Care Community Service Patrol Officer Name Role Phone Lalitha Linhkarthikeyan Mazariegos DO Primary Care Provider [phone] Lizzie Alves PA-C Unavailable [phone] Kaushik Mariscal MD Unavailable Encounter Details Date Type Department Care Team (Late st Contact Info) Description 08/26/2021 Transcribed Document [facility] [place] [address] [place] [address] ProviderChad MD [address] [place] [address] Social History Tobacco Use Types [...] Conversion Note - Historical ProviderMD - 08/26/2021 10:50 AM CDT Patient: GAGAN MENDOZA Age: 56 Years Sex: Female : 1965 Paint Roller Covermaker: Kaushik Mariscal MD Indication: 56-year-old female with [...] pulse generator was a [employer] model [place] VR [id number] SN [id number] The V ventricular lead was a SJM model Durata 7122Q/58 serial number [id number] with a sensing of 11 mV, impedance of 540 ohms and a threshold of 0.75 V. Complications: No immediate complications were observed. Blood loss around 10 mL. Conclusion: Successful Procedure(s) of: 1. Single CHAMBER ICD SYSTEM PLACEMENT Plan: Discharge tomorrow and device clinic in 7-10 days. documented in this encounter Plan of Treatment Not on file documented as of this encounter Visit Diagnoses Not on filedocumented in this encounter Care Teams Community Service Patrol Officer Relationship Specialty Start Date End Date Linh Doty, 8 [facility] [address] [place] [address] PCP - General Family Medicine 11/04/22 Lizzie Alves PA-C 1401 [facility] [address] [place] [address] Hospitalist Cardiology 05/27/23 Kaushik Mariscal MD [address] [facility] [address] [place] [address] Automobiles Salesperson Electrophysiology 11/18/23 documented as of this encounter
--- OUTSIDE RECORDS SUMMARY | 2024-08-23 13:34 | XMS_ITS | Encounter Summary ---
Author Organization [employer] ([place], [place], [place], [place]) Address [address] [place] [address] Care Team Providers Care Installation & Maintenance Executive Name Role Phone Lalitha Linhkarthikeyan Mazariegos DO Primary Care Provider [phone] Lizzie Alves PA-C Unavailable [phone] Kaushik Mariscal MD Unavailable Encounter Details Date Type Department Care Team (Late st Contact Info) Description 07/17/2021 Transcribed Document [facility] [place] [address] [place] [address] ProviderChad MD [address] [place] [address] Social History Tobacco Use Types Packs/Day Years Used Date Smoking Tobacco: Never Assessed Family and Community Support Answer Geremias e Recorded Help with Day to Day Activities Not on file 02/27/2023 Feeling Lonely or Isolated Not on file 02/27 Educational Attainment Answer Date Mendez rded Speak language other than Azerbaijani at home Not on file 02/27/2023 Want [...] Conversion Note - Historical ProviderMD - 07/17/2021 3:17 PM CDT UM Authorization Entered On: 07/17/2021 15:21 EDT Performed On: 07/17/2021 15:17 EDT by Khushi Jones Rn-Utilization Review Primary Insurance Authorization Authorization and Policy Numbers : Insurance 1 Health Plan: [employer] MANAGED MEDICARE Policy Number: [id number] Authorization Number: Insurance Primary Name : [employer] MANAGED MEDICARE Policy Number: [id number] Authorization Status-Primary : Awaiting callback Authorized Service Begin Date-Primary : 07/18/2021 EDT Authorization Comments-Primary : REF# [id number] DUNAWAY. CLINICAL FAXED VIA [facility] Historical Authorization Comments-Primary : No Authorization Comments Found Khushi Jones Rn-Utilization Review - 07/17/2021 15:17 EDT Electronically signed by Rekha [facility] Conversion Barrel Polisher Inside Cerner at 05/27/2022 9:07 PM CDT documented in this encounter Plan of Treatment Not on file documented as of this encounter Visit Diagnoses Not on filedocumented in this encounter Care Teams Installation & Maintenance Executive Relationship Specialty Start Date End Date Linh Doty, DO 8 [facility] [address] [place] [address] PCP - General Family Medicine 11/04/22 Lizzie Alves PA-C [address] [place] [address], [facility] [address] [place] [address] Hospitalist Cardiology 05/27/23 Kaushik Mariscal MD [address] [facility] [address] [place] [address] Cross Cut Sawyer Electrophysiology 11/18/23 documented as of this encounter
--- OUTSIDE RECORDS SUMMARY | 2024-08-23 13:34 | XMS_ITS | Encounter Summary ---
Author Organization [employer] ([place], [place], [place]) Address [address] [place] [address] Care Team Providers Care Booking Prizer Name Role Phone Lalitha Linhkarthikeyan Mazariegos DO Primary Care Provider [phone] Lizzie Alves PA-C Unavailable [phone] Dion Mariscal MD Unavailable Encounter Details Date Type Department Care Team (Late st Contact Info) Description 08/27/2021 Transcribed Document [facility] [place] [address] [place] [address] ProviderChad MD [address] [place] [address] Social History Tobacco Use Types Packs/Day Years Used Date Smoking Tobacco: Never Assessed Family and Community Support Answer Geremias e Recorded Help with Day to Day Activities Not on file 02/27/2023 Feeling Lonely or Isolated Not on file 02/27 Educational Attainment Answer Date Mendez rded Speak language other than Uruguayan at home Not on file 02/27/2023 Want [...] Conversion Note - Historical ProviderMD - 08/27/2021 12:41 PM CDT [facility] [place] [address] LENA MENDOZA :1965 Visit Time:08/26/2021 Your Visit Summary Your Care Team Admitting Physician - DION MARISCAL MD-CAR Attending Physician - DION MARISCAL MD-CAR Primary Care Physician - LINH WILLIAM DO-FAM Referring Physician - DION MARISCAL MD-CAR Your Diagnosis Ventricular tachycardia, Ventricular tachycardia [...] Bring discharge instructions with you Where: [address] [facility] [address] [place] [address]- Follow Up with LINH WILLIAM DO-FAM When 09/04/2021 10:00 AM EDT Comments PCP appt made, Bring discharge instructions with you Where: [address] [place] [address]- Follow Up with DION MARISCAL When 09/03/2021 02:00 PM EDT Comments wound device check in 1 week scheduled for 09/03/2021 at [address] Mariscal Where: [address] [facility] [address] [place] [address]- Business (1) Medications What How Much When Instructions Next Dose cephalexin (Keflex 500 mg oral capsule) 1 Capsule(s) Oral Three Times A Day Duration: 7 Day(s) Pickup at [facility] [place] this afternoon and evening nicotine (nicotine 14 mg/ 24 hr transdermal film, extended release) 1 Patch(es) TransDermal Every Day Duration: 14 Day(s) Pickup at [facility] tomorrow acetaminophen-hydrocodone (acetaminophen-HYDROcodone 325 mg-5 mg oral tablet) 1 Tablet(s) Oral Every 8 Hours as needed for for pain as needed carvedilol (carvedilol 12.5 mg oral tablet) 1 Tablet(s) Oral Two Times A Day this evening ergocalciferol (Vitamin D2 1.25 mg (50,000 intl units) oral capsule) 1 Capsule(s) Oral Weekly check your schedule fluticasone nasal (fluticasone 50 mcg/ inh nasal spray) 2 [place](s) Nasal Every Day as needed for Nasal [...] Oral At Bedtime at bedtime Pharmacy Information [facility] [place]: [address] [facility] [address] [place], [place] [id number] [phone] Take your medications faithfully. Do NOT skip [...] these instructions at home: Medicines ??? Take euyf-alw-rcabxet and prescription medicines only as told by [...] or bruising over the incision. ??? Take xbrc-tbt-boswdvk and prescription medicines only as told by [...] provider. Document Revised: 12/28/2019 Document Reviewed: 12/28/2019 [employer] Patient Education ?? 2021 [employer] General Anesthesia, Adult, Care After This sheet [...] activities are safe for you. ??? Take efwd-avq-eqjydkb and prescription medicines only as told by [...] provider. Document Revised: 10/11/2020 Document Reviewed: 05/10/2020 [employer] Patient Education ?? 2020 [employer]. Heart-Healthy Eating Plan Heart-healthy meal planning includes: [...] Fats and oils Meat fat, or shortening. [place] butter, hydrogenated oils, palm oil, coconut oil, [...] provider. Document Revised: 04/01/2018 Document Reviewed: 03/05/2018 [employer] Patient Education ?? 2020 [employer]. nicotine (transdermal) (AMADA [place] teen) [employer] casanova C-Q, Nicotine System Kit What is the [...] may report side effects to FDA at 2-228-CXL-6825. What other drugs will affect nicotine? Other drugs may affect nicotine transdermal, including prescription and hpbr-cwm-fteycvg medicines, vitamins, and herbal products. Tell your [...] to ensure that the information provided by [employer]. ('[employer]') is accurate, up-to-date, and complete, but no guarantee is made to that effect. Drug information contained herein may be time sensitive. [employer] information has been compiled for use by healthcare practitioners and consumers in the [place] and therefore [employer] does not warrant that uses outside of the [place] are appropriate, unless specifically indicated otherwise. [employer] drug information does not endorse drugs, diagnose patients or recommend therapy. [employer] drug information is an informational resource designed [...] effective or appropriate for any given patient. [employer] does not assume any responsibility for any aspect of healthcare administered with the aid of information [employer] provides. The information contained herein is not intended to cover all possible uses, directions, precautions, warnings, drug interactions, allergic reactions, or adverse effects. If you have questions about the drugs you are taking, check with your doctor, nurse or pharmacist. Copyright 7418-9675 [employer]. Version: 3.01. Revision Date: 09/16/2018. cephalexin (sef [...] may report side effects to FDA at 1-570-HTG-5124. What other drugs will affect cephalexin? Tell your doctor about all your other medicines, especially: ?? metformin; or ?? probenecid. This list is not complete. Other drugs may affect cephalexin, including prescription and qcis-ycl-wbaogvg medicines, vitamins, and herbal products. Not all [...] to ensure that the information provided by [employer]. ('[employer]') is accurate, up-to-date, and complete, but no guarantee is made to that effect. Drug information contained herein may be time sensitive. [employer] information has been compiled for use by healthcare practitioners and consumers in the [place] and therefore [employer] does not warrant that uses outside of the [place] are appropriate, unless specifically indicated otherwise. [employer] drug information does not endorse drugs, diagnose patients or recommend therapy. [employer] drug information is an informational resource designed [...] effective or appropriate for any given patient. [employer] does not assume any responsibility for any aspect of healthcare administered with the aid of information [employer] provides. The information contained herein is not intended to cover all possible uses, directions, precautions, warnings, drug interactions, allergic reactions, or adverse effects. If you have questions about the drugs you are taking, check with your doctor, nurse or pharmacist. Copyright 0575-5644 [employer]. Version: 10.03. Revision Date: 02/13/2020. Emergency Awareness and Preventative [...] Assistance with quitting is available by contacting 7-645-ZTTX-NOW. This is a free resource providing counseling, [...] range between ( 0.0 and 7.0 ) Stanley #: 0.62 K/uL -- Normal range between ( 0.16 and 1.00 ) Eos #: 0.21 x10(3)/uL -- Normal range between ( 0.00 and 0.80 ) Stanley %: 6.9 % -- Normal range between [...] Chest 1 Vw Portable Patient Name:LENA MENDOZA Alisia have received and understand this information and was given the opportunity to ask questions. Patient/Classified Copy Control Clerk Name: Patient/Classified Copy Control Clerk Signature: Relationship to Patient: Clinician/Hospital Classified Copy Control Clerk Signature: Date: documented in this encounter Plan of Treatment Not on file documented as of this encounter Visit Diagnoses Not on filedocumented in this encounter Care Teams Booking Prizer Relationship Specialty Start Date End Date Linh William, DO [address] [place] [address] PCP - General Family Medicine 11/04/22 Lizzie Alves PA-C [address] [place] [address], [facility] [address] [place] [address] Hospitalist Cardiology 05/27/23 Dion Mariscal MD [address] [facility] [address] [place] [address] General Manager In Training Electrophysiology 11/18/23 documented as of this encounter
--- OUTSIDE RECORDS SUMMARY | 2024-08-23 13:34 | XMS_ITS | Encounter Summary ---
Author Organization [employer] ([place], [place], [place], [place]) Address [address] [place] [address] Care Team Providers Care Sawsmith Name Role Phone Lalitha Linhkarthikeyan Mazariegos DO Primary Care Provider [phone] Lizzie Alves PA-C Unavailable [phone] Kaushik Mariscal MD Unavailable Encounter Details Date Type Department Care Team (Late st Contact Info) Description 07/16/2021 Transcribed Document [facility] [place] [address] [place] [address] ProviderChad MD [address] [place] [address] Social History Tobacco Use Types Packs/Day Years Used Date Smoking Tobacco: Never Assessed Family and Community Support Answer Geremias e Recorded Help with Day to Day Activities Not on file 02/27/2023 Feeling Lonely or Isolated Not on file 02/27 Educational Attainment Answer Date Mendez rded Speak language other than Tunisian at home Not on file 02/27/2023 Want [...] Historical ProviderMD - 07/16/2021 12:00 PM CDT Broset Violence Assessment Entered On: 07/16/2021 14:34 EDT Performed On: 07/16/2021 14:34 EDT by MAIKEL ESPARZA RN Broset Violence Assessment Broset Violence Checklist of Symptoms : None Broset Violence Symptoms Subtotal : 0 Broset Violence Symptoms Indicator : Low risk (0) MAIKEL ESPARZA RN - 07/16/2021 14:34 EDT Electronically signed by Rekha [facility] Conversion Instructor Warper Cerner at 05/27/2022 9:11 PM CDT documented in this encounter Plan of Treatment Not on file documented as of this encounter Visit Diagnoses Not on filedocumented in this encounter Care Teams Sawsmith Relationship Specialty Start Date End Date Linh Doty, DO 8 [facility] [address] [place] [address] PCP - General Family Medicine 11/04/22 Lizzie Alves PA-C [address] [place] [address], [facility] [address] [place] [address] Hospitalist Cardiology 05/27/23 Kaushik Mariscal MD [address] [facility] [address] [place] [address] Carton Marker Machine Electrophysiology 11/18/23 documented as of this encounter
--- OUTSIDE RECORDS SUMMARY | 2024-08-23 13:34 | XMS_ITS | Encounter Summary ---
Author Organization [employer] ([place], [place], [place], [place]) Address [address] [place] [address] Care Team Providers Care Environmental Services Project Manager Name Role Phone Lalitha Linhkarthikeyan Mazariegos DO Primary Care Provider [phone] Lizzie Alves PA-C Unavailable [phone] Kaushik Mariscal MD Unavailable Encounter Details Date Type Department Care Team (Late st Contact Info) Description 08/27/2021 Transcribed Document [facility] [place] [address] [place] [address] ProviderChad MD [address] [place] [address] Social History Tobacco Use Types Packs/Day Years Used Date Smoking Tobacco: Never Assessed Family and Community Support Answer Geremias e Recorded Help with Day to Day Activities Not on file 02/27/2023 Feeling Lonely or Isolated Not on file 02/27 Educational Attainment Answer Date Mendez rded Speak language other than Honduran at home Not on file 02/27/2023 Want [...] Conversion Note - Historical ProviderMD - 08/27/2021 11:52 AM CDT UM Authorization Entered On: 08/27/2021 11:52 EDT Performed On: 08/27/2021 11:52 EDT by EZEKIEL PHILLIPS RN Primary Insurance Authorization Authorization and Policy Numbers : Insurance 1 Health Plan: [email or web address] MANAGED MEDICARE Policy Number: [id number] Authorization Number: [id number] Insurance Primary Name : [facility] MANAGED MEDICARE Policy Number: [id number] Authorization Number-Primary : [id number] Authorized Service Begin Date-Primary : 08/26/2021 EDT Historical Authorization Comments-Primary : No Authorization Comments Found EZEKIEL PHILLIPS RN - 08/27/2021 11:52 EDT Electronically signed by Rekha [facility] Conversion Rack Puller Cerner at 05/27/2022 8:58 PM CDT documented in this encounter Plan of Treatment Not on file documented as of this encounter Visit Diagnoses Not on filedocumented in this encounter Care Teams Environmental Services Project Manager Relationship Specialty Start Date End Date Linh Doty, 8 [facility] [address] [place] [address] PCP - General Family Medicine 11/04/22 Lizzie Alves PA-C [address] [place] [address] [address] [place] [address] Hospitalist Cardiology 05/27/23 Kaushik Mariscal MD [address] [facility] [address] [place] [address] Sharepoint Architect Electrophysiology 11/18/23 documented as of this encounter
--- OUTSIDE RECORDS SUMMARY | 2024-08-23 13:34 | XMS_ITS | Encounter Summary ---
Author Organization [employer] ([place], [place], [place], [place]) Address [address] [place] [address] Care Team Providers Care Plant Operator Control Room Operator Name Role Phone Lalitha Linhkarthikeyan Mazariegos DO Primary Care Provider [phone] Lizzie Alves PA-C Unavailable [phone] Kaushik Mariscal MD Unavailable Encounter Details Date Type Department Care Team (Late st Contact Info) Description 07/16/2021 Transcribed Document [facility] [place] Family [place] [address] [place] [address] ProviderChad MD [address] [place] [address] Social History Tobacco Use Types Packs/Day Years Used Date Smoking Tobacco: Never Assessed Family and Community Support Answer Geremias e Recorded Help with Day to Day Activities Not on file 02/27/2023 Feeling Lonely or Isolated Not on file 02/27 Educational Attainment Answer Date Mendez rded Speak language other than Marshallese at home Not on file 02/27/2023 Want [...] Historical ProviderMD - 07/16/2021 12:00 PM CDT Howard Suicide Severity Rating Scale (C-SSRS) Entered On: 07/16/2021 14:34 EDT Performed On: 07/16/2021 14:34 EDT by MAIKEL ESPARZA RN Howard Suicide Severity Rating Scale (C-SSRS) CSSRS Past Month Wish to be : No CSSRS Past Month Suicidal Thoughts : No CSSRS Lifetime Suicide Behavior : No Suicide Severity Rating Score : 0 Suicide Severity Rating : No Additional Care Required at this time MAIKEL ESPARZA RN - 07/16/2021 14:34 EDT Electronically signed by [facility] Conversion Certified Pharmacist Assistant Cerner at 05/27/2022 9:15 PM CDT documented in this encounter Plan of Treatment Not on file documented as of this encounter Visit Diagnoses Not on filedocumented in this encounter Care Teams Plant Operator Control Room Operator Relationship Specialty Start Date End Date Linh Doty, 8 [facility] [address] [place] [address] PCP - General Family Medicine 11/04/22 Lizzie Alves PA-C [address] [facility], [facility] [address] [place] [address] Hospitalist Cardiology 05/27/23 Kaushik Mariscal MD [address] [facility] [address] [place] [address] Eyeglass Lens Cutter Electrophysiology 11/18/23 documented as of this encounter
--- OUTSIDE RECORDS SUMMARY | 2024-08-23 13:34 | XMS_ITS | Encounter Summary ---
Author Organization [employer] ([place], [place], [place], [place]) Address [address] [place] [address] Care Team Providers Care Clinical Research Analyst Name Role Phone Lalitha Linhkarthikeyan Mazariegos DO Primary Care Provider [phone] Lizzie Alves PA-C Unavailable [phone] Kaushik Mariscal MD Unavailable Encounter Details Date Type Department Care Team (Late st Contact Info) Description 07/17/2021 Transcribed Document [facility] [place] Family Medicine [address] [place] [address] ProviderChad MD [address] [place] [address] Social History Tobacco Use Types [...] Conversion Note - Historical ProviderMD - 07/17/2021 12:36 PM CDT Initial Discharge Planning Entered On: 07/17/2021 12:41 EDT Performed On: 07/17/2021 12:36 EDT by AMAURY HURT SOCIAL WORKER NON-EXEMPT Initial Assessment I Previously Documented Living [...] Listed? : Yes Medical Durable Power of General Engineering Teacher Name : no Legal Guardian : No AMAURY HURT SOCIAL WORKER NON-EXEMPT - 07/17/2021 12:36 EDT Initial Assessment II Sensory and Motor Deficits : None Current Home Treatments and Equipment : Bedside commode, Cane, Shower chair, Walker AMAURY HURT SOCIAL WORKER NON-EXEMPT - 07/17/2021 [...] home with her life partner, Alexx Lewis [phone]. Pt PLOF independent. Pt has a cane, walker, bedside commode, and shower chair. Pt has no home O2. Pt has no history of home health or SNF. Pt's significant other provides transportation and can transport at [place]. Pt has no concerns related to safety getting in and out of the vehicle. DCP: Home w/ family care AMAURY HURT, CENTRAL OFFICE TROUBLE SHOOTER NON-EXEMPT - 07/17/2021 12:36 EDT Electronically signed by Rekha [facility] Conversion Mud Analysis Supervisor Cerner at 05/27/2022 9:03 PM CDT documented in this encounter Plan of Treatment Not on file documented as of this encounter Visit Diagnoses Not on filedocumented in this encounter Care Teams Clinical Research Analyst Relationship Specialty Start Date End Date Linh Doty, 8 [facility] [address] [place] [address] PCP - General Family Medicine 11/04/22 Lizzie Alves PA-C [address] [place] [address], [facility] [address] [place] [address] Hospitalist Cardiology 05/27/23 Kaushik Mariscal MD [address] [facility] [address] [place] [address] Formulation Scientist Electrophysiology 11/18/23 documented as of this encounter
--- OUTSIDE RECORDS SUMMARY | 2024-08-23 13:35 | XMS_ITS | Encounter Summary ---
Author Organization [employer] ([place], [place], [place], [place]) Address [address] [place] [address] Care Team Providers Care Neonatal Nurse Practitioner Name Role Phone Lalitha Linhkarthikeyan Mazariegos DO Primary Care Provider [phone] Lizzie Alves PA-C Unavailable [phone] Kaushik Mariscal MD Unavailable Encounter Details Date Type Department Care Team (Late st Contact Info) Description 08/27/2021 Transcribed Document [facility] [place] Family Medicine [address] [place] [address] ProviderChad MD [address] [place] [address] Social History Tobacco Use Types Packs/Day Years Used Date Smoking Tobacco: Never Assessed Family and Community Support Answer Geremias e Recorded Help with Day to Day Activities Not on file 02/27/2023 Feeling Lonely or Isolated Not on file 02/27 Educational Attainment Answer Date Mendez rded Speak language other than Hong Konger at home Not on file 02/27/2023 Want [...] Conversion Note - Historical ProviderMD - 08/27/2021 11:04 AM CDT Stroke/Warfarin Instructions [...] - 08/27/2021 11:04 EDT Electronically signed by Rekha, [facility] Conversion Cold Molding Press Operator Cerner at 05/27/2022 9:09 PM CDT documented in this encounter Plan of Treatment Not on file documented as of this encounter Visit Diagnoses Not on filedocumented in this encounter Care Teams Neonatal Nurse Practitioner Relationship Specialty Start Date End Date Linh Doty, DO 8 [facility] [address] [place] [address] PCP - General Family Medicine 11/04/22 Lizzie Alves PA-C [address] [facility], [facility] [address] [place] [address] Hospitalist Cardiology 05/27/23 Kaushik Mariscal MD [address] [facility] [address] [place] [address] Welder Electrophysiology 11/18/23 documented as of this encounter
--- OUTSIDE RECORDS SUMMARY | 2024-08-23 13:35 | XMS_ITS | Encounter Summary ---
Author Organization [employer] ([place], [place], [place], [place]) Address [address] [place] [address] Care Team Providers Care Conversion Developer Name Role Phone Lalitha Linhkarthikeyan Mazariegos DO Primary Care Provider [phone] Lizzie Alves PA-C Unavailable [phone] Kaushik Mariscal MD Unavailable Encounter Details Date Type Department Care Team (Late st Contact Info) Description 08/27/2021 Transcribed Document [facility] [place] [address] [place] [address] ProviderChad MD [address] [place] [address] Social History Tobacco Use Types Packs/Day Years Used Date Smoking Tobacco: Never Assessed Family and Community Support Answer Geremias e Recorded Help with Day to Day Activities Not on file 02/27/2023 Feeling Lonely or Isolated Not on file 02/27 Educational Attainment Answer Date Mendez rded Speak language other than Jordanian at home Not on file 02/27/2023 Want [...] Historical ProviderMD - 08/27/2021 11:15 AM CDT Spiritual Care Short Form Entered On: 08/27/2021 13:17 EDT Performed On: 08/27/2021 11:15 EDT by LYNN VENEGAS General Information, Spiritual Care Spiritual Care Referred by : Dynamometer Tuner initiated Reason for Visit : Initial Ministry Provided to : Patient, Family/Significant other Intervention/Comment/Summary Points : Initial Spiritual Care visit with patient and by volunteer, Tr Rico. LYNN VENEGAS - 08/27/2021 13:17 EDT Electronically signed by Rekha [facility] Conversion Granite Cutter Cerner at 05/27/2022 9:27 PM CDT documented in this encounter Plan of Treatment Not on file documented as of this encounter Visit Diagnoses Not on filedocumented in this encounter Care Teams Conversion Developer Relationship Specialty Start Date End Date Linh Doty, DO 8 [facility] [address] [place] [address] PCP - General Family Medicine 11/04/22 Lizzie Alves PA-C [address] [facility], [facility] [address] [place] [address] Hospitalist Cardiology 05/27/23 Kaushik Mariscal MD 14[address] [facility] [address] [place], [place] [id number] Engineering Supervisor Electrophysiology 11/18/23 documented as of this encounter
--- OUTSIDE RECORDS SUMMARY | 2024-08-23 13:35 | XMS_ITS | Encounter Summary ---
Author Organization [employer] ([place], [place], [place], [place]) Address [address] [place] [address] Care Team Providers Care Clinical Data Analyst Name Role Phone Lalitha Linhkarthikeyan Mazariegos DO Primary Care Provider [phone] Lizzie Alves PA-C Unavailable [phone] Dion Mariscal MD Unavailable Encounter Details Date Type Department Care Team (Late st Contact Info) Description 08/27/2021 Transcribed Document [facility] [place] [address] [place] [address] ProviderChad MD [address] [place] [address] Social History Tobacco Use Types [...] Conversion Note - Historical ProviderMD - 08/27/2021 10:32 AM CDT Patient: LENA MENDOZA Age: 56 years Sex: Female : 1965 Associated Diagnoses: None Author: DION MARISCAL MD-REJI No qualifying data available [facility] Discharge Note - EP Primary Brand Designer: Dr. Benavidez PCP: Linh Doty Consults: NONE [...] memory of Dr. Solorio device implantation with elieser. EKG today showed sinus rhythm, heart rate [...] 08/08/2021 for hospital follow-up from [place] [facility] from 07/16[place]-07/25/20[address] her [facility] AICD on 07/24/[address] Moshe Hoffman. Incision is well-healed and without signs or symptoms of infection, drainage, or erythema. Patient will complete her last course of antibiotics on 08/15/2021 and will follow-up with [place] [facility] on 08/21/2021. Provided that [...] Normal range of motion. Integumentary: Warm, Dry, Combs. Neurologic: Alert, Oriented. Psychiatric: Cooperative, Appropriate mood & affect. Telemetry: SR 64 Procedures this admission: Conclusion: Successful Procedure(s) of: 1. Single CHAMBER ICD SYSTEM PLACEMENT - [facility] Discharge Diagnoses: 1. Successful implantation of a [...] BEDTIME 14. Vitamin D (Ergocalciferol) 1.25 MG (54304 UT) Oral Capsule; TAKE ONE CAPSULE BY MOUTH ONCE A WEEK Allergies (1) Active Reaction NKDA Disposition: Patient sent home in stable condition with family support. Discharge Instructions: Cardiac Diet. Post Cath Instructions. Activity as tolerated Smoking cessation and risk factor modification addressed - requesting smoking patches which we have asked pharmacy to fill Followup Appointments: PCP in 5 - 7 days. Primary Brand Designer in [address] Mariscal Lynne 09/03/2021 at 1400 Patient has been instructed on and verbalized an understanding of the above discharge instructions. Plan has been discussed and is in agreement with Dr. Suzy Katz, SARAH documenting for Dr. Mariscal Electronically signed by [facility], [facility] Conversion Garage Mechanic Cerner at 05/27/2022 9:17 PM CDT documented in this encounter Plan of Treatment Not on file documented as of this encounter Visit Diagnoses Not on filedocumented in this encounter Care Teams Clinical Data Analyst Relationship Specialty Start Date End Date Linh Doty, DO 8 [facility] [address] [place] [address] PCP - General Family Medicine 11/04/22 Lizzie Alves PA-C [address] [place] [address], [facility] [address] [place] [address] Hospitalist Cardiology 05/27/23 Dion Mariscal MD 14[address] [facility] [address] [place] [address] Brand Designer Electrophysiology 11/18/23 documented as of this encounter
--- OUTSIDE RECORDS SUMMARY | 2024-08-23 13:35 | XMS_ITS | Encounter Summary ---
Author Organization [facility] ([place], [place], [place], [place]) Address [address] [place] [address] Care Team Providers Care Analog Device Designer Name Role Phone Lalitha Linhkarthikeyan Mazariegos DO Primary Care Provider [phone] Lizzie Alves PA-C Unavailable [phone] Kaushik Mariscal MD Unavailable Encounter Details Date Type Department Care Team (Late st Contact Info) Description 07/24/2021 Transcribed Document [facility] [address] [place] [address] ProviderChad MD [address] [place] [address] Social History Tobacco Use Types Packs/Day Years Used Date Smoking Tobacco: Never Assessed Family and Community Support Answer Geremias e Recorded Help with Day to Day Activities Not on file 02/27/2023 Feeling Lonely or Isolated Not on file 02/27 Educational Attainment Answer Date Mendez rded Speak language other than Liberian at home Not on file 02/27/2023 Want [...] Cerner Conversion Note - Historical ProviderMD - 07/24/2021 5:00 AM CDT Chart Check - Review Order Profile Entered On: 07/24/2021 4:47 EDT Performed On: 07/24/2021 5:00 EDT by CHICO MARLOW, RN Chart Check All Active Orders Reviewed : Yes CHICO MARLOW RN - 07/24/2021 4:47 EDT Electronically signed by [facility] Conversion Milk Tester Cerner at 05/27/2022 9:11 PM CDT documented in this encounter Plan of Treatment Not on file documented as of this encounter Visit Diagnoses Not on filedocumented in this encounter Care Teams Analog Device Designer Relationship Specialty Start Date End Date Linh Doty, 8 [facility] [address] [place] [address] PCP - General Family Medicine 11/04/22 Lizzie Alves PA-C 1401 [facility] [address] [place] [address] Hospitalist Cardiology 05/27/23 Kaushik Mariscal MD 14[address] [facility] [address] [place] [address] Soft Work Wrapper Examiner Electrophysiology 11/18/23 documented as of this encounter
--- OUTSIDE RECORDS SUMMARY | 2024-08-23 13:35 | XMS_ITS | Encounter Summary ---
Author Organization [employer] ([place], [place], [place], [place]) Address [address] [place] [address] Care Team Providers Care Real Estate Office Supervisor Name Role Phone Lalitha Linh Delilah DAVIS Primary Care Provider [phone] Lizzie Alves PA-C Unavailable [phone] Kaushik Mariscal MD Unavailable Encounter Details Date Type Department Care Team (Late st Contact Info) Description 07/01/2021 Transcribed Document [facility] [place] [address] [place] [address] ProviderChad MD [address] [place] [address] Social History Tobacco Use Types Packs/Day [...] Cerner Conversion Note - Historical ProviderMD - 07/01/2021 5:16 PM CDT Valuables and Belongings Entered On: 07/01/2021 22:37 EDT Performed On: 07/01/2021 20:00 EDT by Kait Kang RN Valuables and Belongings Valuables and Belongings : Clothing, Personal items, No comfort items, No jewelry, No personal devices, No assistive devices, No respiratory devices, No medications Clothing : Common streetwear Clothing Disposition : Bedside, With patient, Declines to send to security/safe Personal Items : Cell phone, Wallet Personal Items Disposition : With family, Declines to send to security/safe Kait Kang RN - 07/01/2021 22:37 EDT Electronically signed by Rekha [facility] Conversion Director Of Corporate Real Estate Cerner at 05/27/2022 9:07 PM CDT documented in this encounter Plan of Treatment Not on file documented as of this encounter Visit Diagnoses Not on filedocumented in this encounter Care Teams Real Estate Office Supervisor Relationship Specialty Start Date End Date Linh Doty, 8 [facility] [address] [place] [address] PCP - General Family Medicine 11/04/22 Lizzie Alves PA-C [address] [place] [address] [address] [place] [address] Hospitalist Cardiology 05/27/23 Kauhsik Mariscal MD 1401 [facility] [address] [place] [address] Rail Splitter Electrophysiology 11/18/23 documented as of this encounter
--- OUTSIDE RECORDS SUMMARY | 2024-08-23 13:35 | XMS_ITS | Encounter Summary ---
Author Organization [employer] ([place], [place], [place], [place]) Address [address] [place] [address] Care Team Providers Care Environmental Services Director Name Role Phone Lalitha Linhkarthikeyan Mazariegos DO Primary Care Provider [phone] Lizzie Alves PA-C Unavailable [phone] Kaushik Mariscal MD Unavailable Encounter Details Date Type Department Care Team (Late st Contact Info) Description 07/24/2021 Transcribed Document [facility] [place] Family Medicine [address] [place] [address] ProviderChad MD [address] [place] [address] Social History Tobacco Use Types Packs/Day Years Used Date Smoking Tobacco: Never Assessed Family and Community Support Answer Geremias e Recorded Help with Day to Day Activities Not on file 02/27/2023 Feeling Lonely or Isolated Not on file 02/27 Educational Attainment Answer Date Mendez rded Speak language other than Paraguayan at home Not on file 02/27/2023 Want [...] Conversion Note - Historical ProviderMD - 07/24/2021 2:30 PM CDT DATE OF [...] was infiltrated with 1% lidocaine locally. A 4-Faroese sheath was placed in the right femoral artery and used for continuous arterial pressure monitoring. A 10-Faroese sheath was placed in the right femoral [...] from the retention sutures. Next, using an 11-Faroese manual cutting sheath, the lead was freed to the level of the SVC. The cutting sheath was then exchanged for 14-Faroese laser powered sheath, which was used to [...] RECOMMENDATIONS: Reimplantation when cleared from ID standpoint. /[id number] Richard Hoffman MD TCR/AQ / TCR / MODL /[id number] Electronically signed by Interface, [facility] Conversion It Software Engineer Cerner at 05/27/2022 9:00 PM CDT documented in this encounter Plan of Treatment Not on file documented as of this encounter Visit Diagnoses Not on filedocumented in this encounter Care Teams Environmental Services Director Relationship Specialty Start Date End Date Linh Doty, DO 8 [facility] [address] [place] [address] PCP - General Family Medicine 11/04/22 Lizzie Alves PA-C [address] [place] [address], [facility] [address] [place] [address] Hospitalist Cardiology 05/27/23 Kaushik Mariscal MD 1401 [facility] [address] [place] [address] Clinical Applications Specialist Electrophysiology 11/18/23 documented as of this encounter
--- OUTSIDE RECORDS SUMMARY | 2024-08-23 13:35 | XMS_ITS | Encounter Summary ---
Author Organization [employer] ([place], [place], [place], [place]) Address [address] [place] [address] Care Team Providers Care Engineering Lecturer Name Role Phone Lalitha Linh Delilah DAVIS Primary Care Provider [phone] Lizzie Alves PA-C Unavailable [phone] Kaushik Mariscal MD Unavailable Encounter Details Date Type Department Care Team (Late st Contact Info) Description 07/24/2021 Transcribed Document [facility] [place] Family Medicine [address] [place] [address] ProviderChad MD [address] [place] [address] Social History Tobacco Use Types Packs/Day Years Used Date Smoking Tobacco: Never Assessed Family and Community Support Answer Geremias e Recorded Help with Day to Day Activities Not on file 02/27/2023 Feeling Lonely or Isolated Not on file 02/27 Educational Attainment Answer Date Mendez rded Speak language other than Tristanian at home Not on file 02/27/2023 Want [...] Note - Historical ProviderMD - 07/24/2021 5:00 PM CDT Chart Check - Review Order Profile Entered On: 07/24/2021 20:09 EDT Performed On: 07/24/2021 17:00 EDT by Colin Kaur Non Emp RN Chart Check Powerplans Initiated/Discontinued as Appropriate : Yes All Active Orders Reviewed : Yes Colin Kaur Non Emp RN - 07/24/2021 20:08 EDT documented in this encounter Plan of Treatment Not on file documented as of this encounter Visit Diagnoses Not on filedocumented in this encounter Care Teams Engineering Lecturer Relationship Specialty Start Date End Date Linh Doty, 8 [facility] [address] [place] [address] PCP - General Family Medicine 11/04/22 Lizzie Alves PA-C [address] [place] [address], [facility] [address] [place] [address] Hospitalist Cardiology 05/27/23 Kaushik Mariscal MD 1401 [facility] [address] [place] [address] Wealth Management Advisor Electrophysiology 11/18/23 documented as of this encounter
--- OUTSIDE RECORDS SUMMARY | 2024-08-23 13:35 | XMS_ITS | Encounter Summary ---
Author Organization [employer] ([place], [place], [place], [place]) Address [address] [place] [address] Care Team Providers Care Diesel Trailer Mechanic Name Role Phone Lalitha Linhkarthikeyan Mazariegos DO Primary Care Provider [phone] Lizzie Alves PA-C Unavailable [phone] Kaushik Mariscal MD Unavailable Encounter Details Date Type Department Care Team (Late st Contact Info) Description 07/24/2021 Transcribed Document [facility] [place] [address] [place] [address] ProviderChad MD [address] [place] [address] Social History Tobacco Use Types [...] Conversion Note - Historical ProviderMD - 07/24/2021 2:00 AM CDT Car Inspector Details Entered On: 07/24/2021 4:47 EDT Performed On: 07/24/2021 2:00 EDT by CHICO MARLOW, SARAH Order Details Transport Mode Order Detail : Stretcher/Gurney Isolation Precautions Order Detail : Standard Precautions Order Detail : 0 IV Order Detail : 1 Oxygen Order Detail : 1 Nurse Collect Order Detail : 0 Lift/Transfer : Minimal Central Line Order Detail : No Room Service : Appropriate Arterial Line : No Patient Needs Meds Crushed/Liquid : No CHICO MARLOW, SARAH - 07/24/2021 4:44 EDT Electronically signed by [facility] Conversion Labor/Excavator Cerner at 05/27/2022 9:19 PM CDT documented in this encounter Plan of Treatment Not on file documented as of this encounter Visit Diagnoses Not on filedocumented in this encounter Care Teams Diesel Trailer Mechanic Relationship Specialty Start Date End Date Linh Doty, [address] [facility] [address] [place] [address] PCP - General Family Medicine 11/04/22 Lizzie Alves PA-C 1401 [facility], [facility] [address] [place] [address] Hospitalist Cardiology 05/27/23 Kaushik Mariscal MD 1401 [facility] [address] [place] [address] Sales Appointment Coordinator Electrophysiology 11/18/23 documented as of this encounter
--- OUTSIDE RECORDS SUMMARY | 2024-08-23 13:35 | XMS_ITS | Encounter Summary ---
Author Organization [employer] ([place], [place], [place], [place]) Address [address] [place] [address] Care Team Providers Care Receptionist Telephone Operator Name Role Phone Lalitha Linh Delilah DAVIS Primary Care Provider [phone] Lizzie Alves PA-C Unavailable [phone] Kaushik Mariscal MD Unavailable Encounter Details Date Type Department Care Team (Late st Contact Info) Description 07/02/2021 Transcribed Document [facility] [place] Family Medicine [address] [place] [address] ProviderChad MD [address] [place] [address] Social History Tobacco Use Types Packs/Day Years Used Date Smoking Tobacco: Never Assessed Family and Community Support Answer Geremias e Recorded Help with Day to Day Activities Not on file 02/27/2023 Feeling Lonely or Isolated Not on file 02/27 Educational Attainment Answer Date Mendez rded Speak language other than Portuguese at home Not on file 02/27/2023 Want [...] Cerner Conversion Note - Historical ProviderMD - 07/02/2021 2:53 PM CDT Nursing Discharge [...] Explanation Teaching Evaluation : Verbalizes understanding Aimee Betancur RN-Resource - 07/02/2021 14:53 EDT Electronically signed by Rekha [facility] Conversion Application Tester Cerner at 05/27/2022 9:00 PM CDT documented in this encounter Plan of Treatment Not on file documented as of this encounter Visit Diagnoses Not on filedocumented in this encounter Care Teams Receptionist Telephone Operator Relationship Specialty Start Date End Date Linh Doty, DO 8 [facility] [address] [place] [address] PCP - General Family Medicine 11/04/22 Lizzie Alves PA-C [address] [place] [address], [facility] [address] [place] [address] Hospitalist Cardiology 05/27/23 Kaushik Mariscal MD [address] [facility] [address] [place] [address] Exotic Dancer Electrophysiology 11/18/23 documented as of this encounter
--- OUTSIDE RECORDS SUMMARY | 2024-08-23 13:35 | XMS_ITS | Encounter Summary ---
Author Organization [employer] ([place], [place], [place], [place]) Address [address] [place] [address] Care Team Providers Care Guide Dog Instructor Name Role Phone Lalitha Linhkarthikeyan Mazariegos DO Primary Care Provider [phone] Lizzie Alves PA-C Unavailable [phone] Kaushik Mariscal MD Unavailable Encounter Details Date Type Department Care Team (Late st Contact Info) Description 07/01/2021 Transcribed Document [facility] [place] Family Medicine [address] [place] [address] ProviderChad MD [address] [place] [address] Social History Tobacco Use Types Packs/Day Years Used Date Smoking Tobacco: Never Assessed Family and Community Support Answer Geremias e Recorded Help with Day to Day Activities Not on file 02/27/2023 Feeling Lonely or Isolated Not on file 02/27 Educational Attainment Answer Date Mendez rded Speak language other than Solomon Islander at home Not on file 02/27/2023 [...] Conversion Note - Historical ProviderMD - 07/01/2021 12:58 PM CDT Pre Procedure Adult Entered On: 07/01/2021 13:02 EDT Performed On: 07/01/2021 12:58 EDT by Rere Ramos RN Height and Weight, Clinical Dosing Height Source : Stated Height Entry Format : [place] Height, Feet : 5 ft(Converted to: 152 cm, 60 Inch) Height, Inches : 7 Inch(Converted to: 0 ft 7 Inch, 17.78 cm) Clinical Height : 170.18 cm Weight Source : Standing scale Weight Entry Format : [place] Clinical Dosing Weight : 61.36 kg Weight, Pounds : 135 lb Body Surface Area (BSA) : 1.71 m2 Body Mass Index : 21.2 kg/m2 [place] Body Weight : 61 kg Rere Ramos [...] (Last Updated: 07/01/2021 12:59:21 EDT by Rere Ramos RN) Infectious Disease History Does patient have [...] Rere Ramos RN - 07/01/2021 12:58 EDT [place] Suicide Severity Rating Scale (C-SSRS) CSSRS Past [...] Obtained From : Patient Primary Language : Solomon Islander Preferred Communication Mode : Verbal Communication Barrier : None Power Line Lineman Needed : No Rere Ramos RN - [...] Scale Risk Level : 25-45 Medium Risk [place] Fall Interventions : Adequate lighting, Assistive devices [...] on filedocumented in this encounter Care Teams Guide Dog Instructor Relationship Specialty Start Date End Date Linh Doty, DO 8 [facility] [address] [place] [address] PCP - General Family Medicine 11/04/22 Lizzie Alves PA-C [address] [place] [address], [facility] [address] [place] [address] Hospitalist Cardiology 05/27/23 Kaushik Mariscal MD 1401 [facility] [address] [place] [address] Sales Forecast Analyst Electrophysiology 11/18/23 documented as of this encounter
--- OUTSIDE RECORDS SUMMARY | 2024-08-23 13:35 | XMS_ITS | Encounter Summary ---
Author Organization [employer] ([place], [place], [place], [place]) Address [address] [place] [address] Care Team Providers Care Scale Tank Operator Name Role Phone Lalitha Linhkarthikeyan Mazariegos DO Primary Care Provider [phone] Lizzie Alves PA-C Unavailable [phone] Dion Mariscal MD Unavailable Encounter Details Date Type Department Care Team (Late st Contact Info) Description 08/27/2021 Transcribed Document [facility] [place] Family Medicine [address] [place] [address] ProviderChad MD [address] [place] [address] Social History Tobacco Use Types Packs/Day Years Used Date Smoking Tobacco: Never Assessed Family and Community Support Answer Geremias e Recorded Help with Day to Day Activities Not on file 02/27/2023 Feeling Lonely or Isolated Not on file 02/27 Educational Attainment Answer Date Mendez rded Speak language other than Tanzanian at home Not on file 02/27/2023 Want [...] Historical ProviderMD - 08/27/2021 1:06 PM CDT [facility] [address] [place] [address] LENA MENDOZA :1965 Visit Time:08/26/2021 Your [...] AFTER YOUR FOLLOW UP WITH DR MARISCAL Discharge Activity: Discharge Activity: No heavy lifting over 10 lbs Diet: Discharge Diet: Resume usual diet as tolerated Wound/Incision Care Instructions: Keep operative site/wound clean and dry. Do not emove Aquacel dressing until seen in clinic in1 week. Driving Restriction: Do Not Drive Follow-Up Appointments Follow Up with PUNEET BROOKS MD-REJI When 10/11/2021 09:00 AM EDT Comments CARDIOLOGY appt made, Bring discharge instructions with you Where: [address] [place] [address]- Follow Up with LINH WILLIAM DO-FAM When 09/04/2021 10:00 AM EDT Comments PCP appt made, Bring discharge instructions with you Where: [address] [place] [address]- Follow Up with DION MARISCAL When 09/03/2021 02:00 PM EDT Comments wound device check in 1 week scheduled for 09/03/2021 at [address] Mariscal Where: [address] [facility] [address] [place] [address]- Business (1) Medications What How Much When Instructions Next Dose cephalexin (Keflex 500 mg oral capsule) 1 Capsule(s) Oral Three Times A Day Duration: 7 Day(s) Pickup at [facility] nicotine (nicotine 14 mg/ 24 hr transdermal film, extended release) 1 Patch(es) TransDermal Every Day Duration: 14 Day(s) Pickup at [facility] acetaminophen-hydrocodone (acetaminophen-HYDROcodone 325 mg-5 mg oral tablet) 1 Tablet(s) Oral Every 8 Hours as needed for for pain carvedilol (carvedilol 12.5 mg oral tablet) 1 Tablet(s) Oral Two Times A Day ergocalciferol (Vitamin D2 1.25 mg (50,000 intl units) oral capsule) 1 Capsule(s) Oral Weekly fluticasone nasal (fluticasone 50 mcg/ inh nasal spray) 2 [place](s) Nasal Every Day as needed for Nasal [...] 1 Tablet(s) Oral At Bedtime Pharmacy Information [facility] [place]: [address] [place] [address] [address] [place], [place] [id number] [phone] Take your medications faithfully. Do NOT skip [...] these instructions at home: Medicines ??? Take nrca-zlq-slkexfa and prescription medicines only as told by [...] or bruising over the incision. ??? Take bxdc-xiq-jntqsds and prescription medicines only as told by [...] provider. Document Revised: 12/28/2019 Document Reviewed: 12/28/2019 [employer] Patient Education ?? [employer] General Anesthesia, Adult, Care After This [...] activities are safe for you. ??? Take xcyg-mpx-prlreht and prescription medicines only as told by [...] provider. Document Revised: 10/11/2020 Document Reviewed: 05/10/2020 [employer] Patient Education ?? 2020 [employer]. Heart-Healthy Eating Plan Heart-healthy meal planning includes: [...] Fats and oils Meat fat, or shortening. [place] butter, hydrogenated oils, palm oil, coconut oil, [...] provider. Document Revised: 04/01/2018 Document Reviewed: 03/05/2018 [employer] Patient Education ?? 2020 [employer]. nicotine (transdermal) (AMADA [place] teen) Belkis Hines [...] may report side effects to FDA at 5-921-IGN-1742. What other drugs will affect nicotine? Other drugs may affect nicotine transdermal, including prescription and atrm-fia-kvhgggl medicines, vitamins, and herbal products. Tell your [...] to ensure that the information provided by [employer]. ('[employer]') is accurate, up-to-date, and complete, but no guarantee is made to that effect. Drug information contained herein may be time sensitive. [employer] information has been compiled for use by healthcare practitioners and consumers in the [place] and therefore [employer] does not warrant that uses outside of the [place] are appropriate, unless specifically indicated otherwise. [employer] drug information does not endorse drugs, diagnose patients or recommend therapy. [employer] drug information is an informational resource designed [...] effective or appropriate for any given patient. [employer] does not assume any responsibility for any aspect of healthcare administered with the aid of information [employer] provides. The information contained herein is not intended to cover all possible uses, directions, precautions, warnings, drug interactions, allergic reactions, or adverse effects. If you have questions about the drugs you are taking, check with your doctor, nurse or pharmacist. Copyright 8898-2164 [employer]. Version: 3.01. Revision Date: 09/16/2018. cephalexin (sef [...] may report side effects to FDA at 0-088-PGE-3083. What other drugs will affect cephalexin? Tell your doctor about all your other medicines, especially: ?? metformin; or ?? probenecid. This list is not complete. Other drugs may affect cephalexin, including prescription and oixw-edn-bclvvcj medicines, vitamins, and herbal products. Not all [...] to ensure that the information provided by [employer] ('[employer]') is accurate, up-to-date, and complete, but no guarantee is made to that effect. Drug information contained herein may be time sensitive. [employer] information has been compiled for use by healthcare practitioners and consumers in the [place] and therefore [employer] does not warrant that uses outside of the [place] are appropriate, unless specifically indicated otherwise. [employer] drug information does not endorse drugs, diagnose patients or recommend therapy. [employer] drug information is an informational resource designed [...] effective or appropriate for any given patient. [employer] does not assume any responsibility for any aspect of healthcare administered with the aid of information [employer] provides. The information contained herein is not intended to cover all possible uses, directions, precautions, warnings, drug interactions, allergic reactions, or adverse effects. If you have questions about the drugs you are taking, check with your doctor, nurse or pharmacist. Copyright 1617-9292 [employer]. Version: 10.03. Revision Date: 02/13/2020. Emergency Awareness [...] Assistance with quitting is available by contacting 9-196-AFJK-NOW. This is a free resource providing counseling, [...] range between ( 0.0 and 7.0 ) [place] #: 0.62 K/uL -- Normal range between ( 0.16 and 1.00 ) Eos #: 0.21 x10(3)/uL -- Normal range between ( 0.00 and 0.80 ) [place] %: 6.9 % -- Normal range between [...] was given the opportunity to ask questions. Patient/Air Intelligence Specialist Name: Patient/Air Intelligence Specialist Signature: Relationship to Patient: Clinician/Hospital Air Intelligence Specialist Signature: Date: documented in this encounter Plan of Treatment Not on file documented as of this encounter Visit Diagnoses Not on filedocumented in this encounter Care Teams Scale Tank Operator Relationship Specialty Start Date End Date Linh William, DO [address] [facility] [address] [place] [address] PCP - General Family Medicine 11/04/22 Lizzie Alves PA-C [address] [place] [address], [facility] [address] [place] [address] Hospitalist Cardiology 05/27/23 Dion Mariscal MD [address] [facility] [address] [place] [address] Tool Planer Set Up Operator Electrophysiology 11/18/23 documented as of this encounter
--- OUTSIDE RECORDS SUMMARY | 2024-08-23 13:35 | XMS_ITS | Encounter Summary ---
Author Organization [employer] ([place], [place], [place], [place]) Address [address] [place] [address] Care Team Providers Care Time Stamp Assembler Name Role Phone Lalitha Linhkarthikeyan Mazariegos DO Primary Care Provider [phone] Lizzie Alves PA-C Unavailable [phone] Kaushik Mariscal MD Unavailable Encounter Details Date Type Department Care Team (Late st Contact Info) Description 07/02/2021 Transcribed Document [facility] Family Medicine [address] [place] [address] ProviderChad MD [address] [place] [address] Social History Tobacco Use Types Packs/Day Years Used Date Smoking Tobacco: Never Assessed Family and Community Support Answer Geremias e Recorded Help with Day to Day Activities Not on file 02/27/2023 Feeling Lonely or Isolated Not on file 02/27 Educational Attainment Answer Date Mendez rded Speak language other than Ethiopian at home Not on file 02/27/2023 Want [...] Conversion Note - Historical ProviderMD - 07/02/2021 12:34 PM CDT Initial Discharge Planning Entered On: 07/02/2021 12:44 EDT Performed On: 07/02/2021 12:34 EDT by ERNIE PAYAN RN-Grab Hooker Initial Assessment I Previously Documented Living Environment [...] Listed? : Yes Medical Durable Power of Intellectual Property Manager Name : no Legal Guardian : No Is Guardianship Needed : No ERNIE PAYAN RN-Grab Hooker - 07/02/2021 12:34 EDT Initial Assessment II Sensory and Motor Deficits : None Current Home Treatments and Equipment : Bedside commode, Shower chair Does the Patient have a Floor to SNF Benefit? : Yes ERNIE PAYAN RN-Grab Hooker - 07/02/2021 12:34 EDT Discharge Needs I Anticipated Discharge Date : 07/02/2021 EDT Anticipated Discharge To, CM : Home with family care Current Home Treatment/Equipment : Current Home Treatment/Equipment No qualifying data available. Post Acute/Home Treatments : Bedside commode, Oxygen therapy, Shower chair Documentation Status Complete : Yes ERNIE PAYAN RN-Grab Hooker - 07/02/2021 12:34 EDT Discharge Needs II Professional Skilled Services : Professional Skilled Services No qualifying data available. Needs Assistance with Transportation : No Patient Discharge Goal : Home ERNIE PAYAN RN-Grab Hooker - 07/02/2021 12:34 EDT Narrative Note Narrative Note : HD# 1. pt in observation status. 07-01: ppm/icd generator change. hx: cad, icm. chf. htn. pad. 02 2l nc. ancef iv. plavix. spoke with Ms. Chandler & her SO, Alexx. [place]. she is adl independent. has mentioned equipment. no hh or rehab stays. spoke with bedside RNAimee. for dc today. pt on 2l nc oxygen. not on oxygen at home. ra sats 86 with removal of oxygen. spoke with Ms. Chandler regarding home 02. after a bit of discussion & in presence of bedside RN, Aimee & Alexx MACDONALD she adamantly declines home 02. 2nd discussion: still adamantly declines. spoke with Isis Katz, iso coordinator. advised of all above. she spoke with pt this am regarding home oxygen & pt declined to her as well. Isis to alert Dr Mariscal of all. will dc home with 02 arranged. ERNIE PAYAN, RN-Grab Hooker - 07/02/2021 12:34 EDT Electronically signed by [facility], [facility] Conversion Cone Examiner Cerner at 05/27/2022 9:02 PM CDT documented in this encounter Plan of Treatment Not on file documented as of this encounter Visit Diagnoses Not on filedocumented in this encounter Care Teams Time Stamp Assembler Relationship Specialty Start Date End Date Linh Doty, DO [address] [facility] [address] [place] [address] PCP - General Family Medicine 11/04/22 Lizzie Alves PA-C [address] [facility], [facility] [address] [place] [address] Hospitalist Cardiology 05/27/23 Kaushik Mariscal MD [address] [facility] [address] [place] [address] Front Office Medical Assistant Electrophysiology 11/18/23 documented as of this encounter
--- OUTSIDE RECORDS SUMMARY | 2024-08-23 13:35 | XMS_ITS | Encounter Summary ---
Author Organization [employer] ([place], [place], [place], [place]) Address [address] [place] [address] Care Team Providers Care Drapery Rod Assembler Name Role Phone Lalitha Linhkarthikeyan Mazariegos DO Primary Care Provider [phone] Lizzie Alves PA-C Unavailable [phone] Dion Mariscal MD Unavailable Encounter Details Date Type Department Care Team (Late st Contact Info) Description 07/24/2021 Transcribed Document [facility] [place] [address] [place] [address] ProviderChad MD [address] [place] [address] Social History Tobacco Use Types Packs/Day Years Used Date Smoking Tobacco: Never Assessed Family and Community Support Answer Geremias e Recorded Help with Day to Day Activities Not on file 02/27/2023 Feeling Lonely or Isolated Not on file 02/27 Educational Attainment Answer Date Mendez rded Speak language other than Thai at home Not on file 02/27/2023 Want [...] Conversion Note - Historical ProviderMD - 07/24/2021 10:42 AM CDT Patient: GAGAN [...] 3 mL, Nebulized Inhalation , Q8H ergocalciferol, [id number] Units= 1 Cap, Oral, Weekly Florastor, 250 [...] Push, Q4H, PRN Electronically signed by Rekha, [facility] Conversion Earth Auger Operator Cerner at 05/27/2022 9:13 PM CDT documented in this encounter Plan of Treatment Not on file documented as of this encounter Visit Diagnoses Not on filedocumented in this encounter Care Teams Drapery Rod Assembler Relationship Specialty Start Date End Date Linh Doty, [address] [facility] [address] [place] [address] PCP - General Family Medicine 11/04/22 Lizzie Alves PA-C [address] [place] [address], [facility] [address] [place] [address] Hospitalist Cardiology 05/27/23 Dion Mariscal MD [address] [facility] [address] [place] [address] Shellfish Grower Electrophysiology 11/18/23 documented as of this encounter
--- OUTSIDE RECORDS SUMMARY | 2024-08-23 13:35 | XMS_ITS | Encounter Summary ---
Author Organization [employer] ([place], [place], [place], [place]) Address [address] [place] [address] Care Team Providers Care Director Of Front Office Name Role Phone Lalitha Linhkarthikeyan Mazariegos DO Primary Care Provider [phone] Lizzie Alves PA-C Unavailable [phone] Kaushik Mariscal MD Unavailable Encounter Details Date Type Department Care Team (Late st Contact Info) Description 07/24/2021 Transcribed Document [facility] Family Medicine [address] [place] [address] ProviderChad MD [address] [place] [address] Social History Tobacco Use Types Packs/Day Years Used Date Smoking Tobacco: Never Assessed Family and Community Support Answer Geremias e Recorded Help with Day to Day Activities Not on file 02/27/2023 Feeling Lonely or Isolated Not on file 02/27 Educational Attainment Answer Date Mendez rded Speak language other than Polish at home Not on file 02/27/2023 Want [...] Conversion Note - Historical ProviderMD - 07/24/2021 8:32 AM CDT Patient: LENA MENDOZA Age: 55 [...] with bloody drainage. Patient was admitted to [facility] on 07/16/2021. Post generator change, [...] (Rocephin) - 2 Gram, IV Piggyback, Inj, [id number], infuse over 30 Minute(s), Routine DAPTOmycin + Sodium Chloride 0.9% intravenous solution 50 mL - 400 mg, IV Piggyback, Inj, [id number], infuse over 30 Minute(s), Routine Anticoagulant alteplase [...] DBP 74 (JUL 24 05:30) 60 (JUL 14 21:31) 74 (JUL 14 17:59) MAP 85 (JUL 24 05:30) 69 (JUL 14 21:31) 86 (JUL 14 17:59) SpO2 94 (JUL 24 07:55) L [...] No tenderness, No deformity. Integumentary: Warm, Dry, [place], No pallor, No rash, ICD site left chest with no obvious drainage, bandage in place, and did not see the device. Neurologic: Alert, Oriented, No focal deficits, Normal deep tendon reflexes. Cognition and Speech: Oriented, Speech clear and coherent. Psychiatric: Cooperative, Appropriate mood & affect. Review / Management Results review: Labs (Last four charted values) WBC 6.6 (JUL 12) 9.6 (JUL 09) 8.4 (JUL 08) 7.4 (JUL 07) HB 15.2 (JUL 12) H 16.2 (JUL 09) H 16.9 (JUL 08) H 17.9 (JUL 07) HCT H 48.8 (MADELEINE 12) H 52.1 (MADELEINE 09) H 53.4 (MADELEINE 08) H 56.1 (JUL 07) Plt L 105 (MADELEINE 12) L [...] 09) L 3.3 (MADELEINE 08) , ACC: [id number] ORDER: Culture Blood DATE: 07/16/2021 12:39 SOURCE: Blood SITE: Reports Final 07/21/2021 16:01 No growth at 5 days. Pre 07/20/2021 16:01 No growth at 4 days. Pre 07/19/2021 16:01 No growth at 3 days. Pre 07/18/2021 16:01 No growth at 2 days. Pre 07/17/2021 16:02 No growth at 1 day. Pre 07/17/2021 06:01 Culture less than 24 Hrs old == ACC: [id number] ORDER: Culture Blood DATE: 07/16/2021 12:39 SOURCE: Blood SITE: Reports Final 07/21/2021 16:01 No growth at 5 days. Pre 07/20/2021 16:01 No growth at 4 days. Pre 07/19/2021 16:01 No growth at 3 days. Pre 07/18/2021 16:01 No growth at 2 days. Pre 07/17/2021 16:02 No growth at 1 day. Pre 07/17/2021 06:01 Culture less than 24 Hrs old == ACC: [id number] ORDER: Culture Wound and Stain DATE: 07/17/2021 [...] Weekly PICC dressing changes. Fax orders to [id number], call [phone] with final arrangements. Arrange for follow-up with me in 1 week post discharge. documented in this encounter Plan of Treatment Not on file documented as of this encounter Visit Diagnoses Not on filedocumented in this encounter Care Teams Director Of Front Office Relationship Specialty Start Date End Date Linh Doty DO [address] [address] PCP - General Family Medicine 11/04/22 Lizzie Alves PA-C [address] [facility], [facility] [address] [place] [address] Hospitalist Cardiology 05/27/23 Kaushik Mariscal MD [address] [facility] [address] [place] [address] Count Team Clerk Electrophysiology 11/18/23 documented as of this encounter
--- OUTSIDE RECORDS SUMMARY | 2024-08-23 13:35 | XMS_ITS | Encounter Summary ---
Author Organization [employer] ([place], [place], [place], [place]) Address [address] [place] [address] Care Team Providers Care Constitutional Law Professor Name Role Phone Lalitha Linh Delilah DAVIS Primary Care Provider [phone] Lizzie Alves PA-C Unavailable [phone] Kaushik Mariscal MD Unavailable Encounter Details Date Type Department Care Team (Late st Contact Info) Description 07/01/2021 Transcribed Document [facility] [place] Family Medicine [address] [place] [address] ProviderChad MD [address] [place] [address] Social History Tobacco Use Types Packs/Day [...] Conversion Note - Historical ProviderMD - 07/01/2021 6:05 PM CDT Admission History, [...] Obtained From : Patient Primary Language : Ghanaian Preferred Communication Mode : Verbal Communication Barrier : None Auto Transmission Specialist Needed : No Rere Ramos RN - [...] Scale Risk Level : 0-24 Low Risk Kimberly Fall Interventions : Adequate lighting, Assistive devices [...] Source : Stated Height Entry Format : [place] Height, Feet : 5 ft(Converted to: 152 cm, 60 Inch) Height, Inches : 7 Inch(Converted to: 0 ft 7 Inch, 17.78 cm) Clinical Height : 170.18 cm Weight Source : Standing scale Weight Entry Format : [place] Clinical Dosing Weight : 61.36 kg Weight, Pounds : 135 lb Body Surface Area (BSA) : 1.71 m2 Body Mass Index : 21.2 kg/m2 [place] Body Weight : 61 kg Rere Ramos [...] Rere Ramos RN - 07/01/2021 18:05 EDT [place] Suicide Severity Rating Scale (C-SSRS) CSSRS Past [...] Rere Ramos RN - 07/01/2021 18:05 EDT Electronically signed by [facility], [facility] Conversion Electric Deicer Inspector Cerner at 05/27/2022 9:19 PM CDT documented in this encounter Plan of Treatment Not on file documented as of this encounter Visit Diagnoses Not on filedocumented in this encounter Care Teams Constitutional Law Professor Relationship Specialty Start Date End Date Linh Doty, DO [address] [facility] [address] [place] [address] PCP - General Family Medicine 11/04/22 Lizzie Alves PA-C [address] [facility], [facility] [address] [place] [address] Hospitalist Cardiology 05/27/23 Kaushik Mariscal MD [address] [facility] [address] [place] [address] Director Financial Services Electrophysiology 11/18/23 documented as of this encounter
--- OUTSIDE RECORDS SUMMARY | 2024-08-23 13:35 | XMS_ITS | Encounter Summary ---
Author Organization [employer] ([place], [place], [place], [place]) Address [address] [place] [address] Care Team Providers Care Almond Grinder Name Role Phone Lalitha Linhkarthikeyan Mazariegos DO Primary Care Provider [phone] Lizzie Alves PA-C Unavailable [phone] Kaushik Mariscal MD Unavailable Encounter Details Date Type Department Care Team (Late st Contact Info) Description 07/24/2021 Transcribed Document [facility] [place] Family Medicine [address] [place] [address] ProviderChad MD [address] [place] [address] Social History Tobacco Use Types Packs/Day Years Used Date Smoking Tobacco: Never Assessed Family and Community Support Answer Geremias e Recorded Help with Day to Day Activities Not on file 02/27/2023 Feeling Lonely or Isolated Not on file 02/27 Educational Attainment Answer Date Mendez rded Speak language other than Eritrean at home Not on file 02/27/2023 Want [...] Conversion Note - Historical ProviderMD - 07/24/2021 11:33 AM CDT On Going Discharge Planning Entered On: 07/24/2021 11:34 EDT Performed On: 07/24/2021 11:33 EDT by Mayra Vann Metal Hanging Supervisor Rn Care Management Progress Note Discharge Arrangements [...] you Attend Multidisciplinary Rounds? : Yes Mayra Vann Metal Hanging Supervisor Rn - 07/24/2021 11:33 EDT Narrative Progress Note Narrative Progress Note : hd 8 elos 5 low rar patient to have AICD removed today r/t infection dcp- home soon with [facility] iv abx and lisa hh Historical Progress Note : hd 7 elos 5 low rar Plan for AICD removal 07/24 dcp- home with iv abx and hh after PPm removal Mayra Vann Metal Hanging Supervisor Rn - 07/23/21 13:57:38 hd 6 elos 5 low rar patient has home abx arranged with amerimed, planned for dc today however patient now to have AICD removed on 07/24 dcp- home ?iv abx after aicd removal Mayra Vann, Metal Hanging Supervisor Rn - 07/22/21 11:22:31 hd 3 elos 5 low rar patient is set up with chika vadleserimed to teach patient abx administration saturday 07/22. Per EP, plan to dc patient saturday 07/22. Lisa for HH. Mayra Vann, Metal Hanging Supervisor Rn - 07/19/21 13:36:36 hd 2 low rar patient has orders from ID r/t iv abx and picc care but patient has no orders for PICC placement at this time, CM has reached out to ID. [facility] patient will also need hh dcp- home with hh and iv abx Mayra Vann, Metal Hanging Supervisor Rn - 07/18/21 16:10:37 Mayra Vann Metal Hanging Supervisor Rn - 07/24/2021 11:33 EDT Electronically signed by [facility], [facility] Conversion Leather Tooler Cerner at 05/27/2022 9:11 PM CDT documented in this encounter Plan of Treatment Not on file documented as of this encounter Visit Diagnoses Not on filedocumented in this encounter Care Teams Almond Grinder Relationship Specialty Start Date End Date Linh Doty, DO 8 [facility] [address] [place] [address] PCP - General Family Medicine 11/04/22 Lizzie Alves PA-C [address] [facility], [facility] [address] [place] [address] Hospitalist Cardiology 05/27/23 Kaushik Mariscal MD [address] [facility] [address] [place] [address] Lens Block Gauger Electrophysiology 11/18/23 documented as of this encounter
--- OUTSIDE RECORDS SUMMARY | 2024-08-23 13:35 | XMS_ITS | Encounter Summary ---
Author Organization [employer] ([place], [place], [place], [place]) Address [address] [place] [address] Care Team Providers Care Food Processor Name Role Phone Lalitha Linh Delilah DAVIS Primary Care Provider [phone] Lizzie Alves PA-C Unavailable [phone] Kaushik Mariscal MD Unavailable Encounter Details Date Type Department Care Team (Late st Contact Info) Description 07/02/2021 Transcribed Document [facility] [place] [address] [place] [address] ProviderChad MD [address] [place] [address] Social History Tobacco Use Types Packs/Day [...] Conversion Note - Historical ProviderMD - 07/02/2021 9:31 AM CDT Pain Assessment [...] Pain Scale Intensity : 5 Aimee Betancur RN-Rogelio - 07/02/2021 12:36 EDT Image 4 - Images currently included in the form version of this document have not been included in the text rendition version of the form. documented in this encounter Plan of Treatment Not on file documented as of this encounter Visit Diagnoses Not on filedocumented in this encounter Care Teams Food Processor Relationship Specialty Start Date End Date Linh Doty, DO 8 [facility] [address] [place] [address] PCP - General Family Medicine 11/04/22 Lizzie Alves PA-C 1401 [facility], [facility] [address] [place] [address] Hospitalist Cardiology 05/27/23 Kaushik Mariscal MD [address] [facility] [address] [place] [address] Cloth Grader Supervisor Electrophysiology 11/18/23 documented as of this encounter
--- OUTSIDE RECORDS SUMMARY | 2024-08-23 13:35 | XMS_ITS | Encounter Summary ---
Author Organization [employer] ([place], [place], [place], [place]) Address [address] [place] [address] Care Team Providers Care Pediatric Allergist Name Role Phone Linh Doty DO Primary Care Provider [phone] Lizzie Alves PA-C Unavailable [phone] Kaushik Mariscal MD Unavailable Reason for Referral * Echocardiography (Routine) - Closed Specialty Diagnoses / Procedures Referred By Contac t Referred To Contact Diagnoses Nonspecific abnormal electrocardiogram (ECG) (EKG) Disease of cardiovascular system Essential hypertension, malignant Procedures ECHO COMPLETE (DOPPLER / COLOR) W OR WO CONTRAST Lenka Benavidez MD [address] [place] [address] Phone: tel: fax: Referral ID Status Reason Start Date Expiration Date Visits Re quested Visits Authorized [id number] Closed 11/05/2021 01/30/2022 1 1 Encounter Details Date Type Department Care Team (Late st Contact Info) Description 11/01/2021 Outside Orders [facility] Central Scheduling [address] [place] [address] Lenka Benavidez MD [address] [place], [place] [id number] Nonspecific abnormal electrocardiogram (ECG) (EKG) (Primary Dx); [...] malignant documented in this encounter Care Teams Pediatric Allergist Relationship Specialty Start Date End Date Linh Doty, DO 8 [facility] [address] [place] [address] PCP - General Family Medicine 11/04/22 Lizzie Alves PA-C [address] [facility], [facility] [address] [place] [address] Hospitalist Cardiology 05/27/23 Kaushik Mariscal MD [address] [facility] [address] [place], [place] [address] Bowling Alley Attendant Electrophysiology 11/18/23 documented as of this encounter
--- OUTSIDE RECORDS SUMMARY | 2024-08-23 13:35 | XMS_ITS | Encounter Summary ---
Author Organization [employer] ([place], [place], [place], [place]) Address [address] [place] [address] Care Team Providers Care First Grade Teacher Name Role Phone Lalitha Linhkarthikeyan Mazariegos DO Primary Care Provider [phone] Lizzie Alves PA-C Unavailable [phone] Kaushik Mariscal MD Unavailable Encounter Details Date Type Department Care Team (Late st Contact Info) Description 07/24/2021 Transcribed Document [facility] [place] [address] [place] [address] ProviderChad MD [address] [place] [address] Social History Tobacco Use Types Packs/Day Years Used Date Smoking Tobacco: Never Assessed Family and Community Support Answer Geremias e Recorded Help with Day to Day Activities Not on file 02/27/2023 Feeling Lonely or Isolated Not on file 02/27 Educational Attainment Answer Date Mendez rded Speak language other than Finnish at home Not on file 02/27/2023 Want [...] Conversion Note - Historical ProviderMD - 07/24/2021 12:00 PM CDT [facility] Main OR PACU Summary Primary Physician: ABBE HOLLEY MD-CAR Finalized Date/Time: 07/24/21 16:21:14 Pt. Name: LENA MENDOZA /Sex: 1965 Female Med Rec #: [id number] Physician: REYNALDO CURIEL MD-INT Financial #: [id number] Pt. Type: I Room/Bed: [facility]/ Admit/Disch: 07/16/21 14:13:00 - Institution: [facility] Main OR PACU I Case Times Entry 1 In PACU I 07/24/21 14:50:00 Ready for PACU 07/24/21 15:44:00 Discharge Discharge from PACU 07/24/21 15:45:00 I Last Modified By: Rebecca Sweet RN-PATIENT CARE BEDSIDE NON-EXEMPT 07/24/21 16:20:58 [facility] Main OR PACU Acuity Entry 1 Start Time 07/24/21 15:44:00 Stop Time 07/24/21 15:45:00 Acuity Level [facility] PACU Acuity I Last Modified By: Rebecca Sweet RN-PATIENT CARE BEDSIDE NON-EXEMPT 07/24/21 16:21:13 Finalized By: Rebecca Sweet RN-PATIENT CARE BEDSIDE NON-EXEMPT Document Signatures Signed By: Rebecca Sweet RN-PATIENT CARE BEDSIDE NON-EXEMPT 07/24/21 16:21 Electronically signed by Rekha [facility] Conversion Marine Engineering Consultant Cerner at 05/27/2022 9:25 PM CDT documented in this encounter Plan of Treatment Not on file documented as of this encounter Visit Diagnoses Not on filedocumented in this encounter Care Teams First Grade Teacher Relationship Specialty Start Date End Date Linh Doty, [address] [place] [address] PCP - General Family Medicine 11/04/22 Lizzie Alves PA-C [address] , [facility] [address] [place] [address] Hospitalist Cardiology 05/27/23 [place] [address] [place] [address] [place] [address] Meter Tester Polyphase Electrophysiology 11/18/23 documented as of this encounter
--- OUTSIDE RECORDS SUMMARY | 2024-08-23 13:35 | XMS_ITS | Encounter Summary ---
Author Organization [employer] ([place], [place], [place], [place]) Address [address] [place] [address] Care Team Providers Care Studio Artist Name Role Phone Lalitha Linhkarthikeyan Mazariegos DO Primary Care Provider [phone] Lizzie Alves PA-C Unavailable [phone] Kaushik Mariscal MD Unavailable Encounter Details Date Type Department Care Team (Late st Contact Info) Description 08/27/2021 Transcribed Document [facility] [place] [address] [place] [address] ProviderChad MD [address] [place] [address] Social History Tobacco Use Types Packs/Day Years Used Date Smoking Tobacco: Never Assessed Family and Community Support Answer Geremias e Recorded Help with Day to Day Activities Not on file 02/27/2023 Feeling Lonely or Isolated Not on file 02/27 Educational Attainment Answer Date Mendez rded Speak language other than Panamanian at home Not on file 02/27/2023 Want [...] Conversion Note - Historical ProviderMD - 08/27/2021 12:15 PM CDT Final Discharge Planning Entered On: 08/27/2021 12:15 EDT Performed On: 08/27/2021 12:15 EDT by Mayra Vann Perishable Fruit Inspector Rn Final Discharge Planning Discharge Arrangements : [...] : Yes Discharge To Care Management : Home/Residential/[facility]ci or Self Care -01 Mayra Vann Perishable Fruit Inspector Rn - 08/27/2021 12:15 EDT Final Narrative Note Final Narrative Note : observation patient with orders to dc home. SO at bedside to transport patient home. no identified cm needs Mayra Vann Perishable Fruit Inspector Rn - 08/27/2021 12:15 EDT documented in this encounter Plan of Treatment Not on file documented as of this encounter Visit Diagnoses Not on filedocumented in this encounter Care Teams Studio Artist Relationship Specialty Start Date End Date Linh Doty DO 8 [facility] [address] [place] [address] PCP - General Family Medicine 11/04/22 Lizzie Alves PA-C [address] , [facility] [address] [place] [address] Hospitalist Cardiology 05/27/23 Kaushik Mariscal MD [address] [place] [address] [place] [address] Prop Maker Electrophysiology 11/18/23 documented as of this encounter
--- OUTSIDE RECORDS SUMMARY | 2024-08-23 13:35 | XMS_ITS | Data Portability ---
Author Organization [employer] - Aldo orta, [facility] [place] [facility] Address [address] [facility] [address] [place] [address] Care Team Providers Care Senior Physician Name Role Phone PHONG WILLIAM Primary Care Provider [phone] Assessment No assessment recorded. Plan of Treatment [...] By Organization Details Last Modified Time 01/27/2017 [id number] 1. Tobacco cessation stongly encouraged. 2. EGD [...] thyro id No observ ation record ed. [email or web address] Not Available 2016 10:51:38 01/27/20 17 01/22/2017 [place], thyro id No observ ation record ed. [facility] (Radiology) [address] [place], [address], 01/27/2017 13:16:29 Result Notes None recorded. Problems Name Problem SNOMED Code Status Onset Date Resolution Date Notes Provider Name and Address Organization Details Recorded Time Atypical squamous cells of undetermi rozina significa nce on cervical Papanicol aou smear 424483045 Active 2014 Provider: Ramy Hawk;Ilia tus: Active Not Available [facility] 6 06:27:24 High grade squamous intraepit helial lesion on cervical Papanicol aou smear 14992756985 107 Active 2014 From Automated Load;Prov ider: Ramy Hawk;Ilia tus: Active Not Available [facility] 6 06:27:24 Cyst of vulva 17366888 Active 2015 From Automated Load;Prov ider: Ashia Vasquez;St atus: Active Not Available [facility] 6 06:27:24 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 Procedures Surgical History Date Name Laterality Status Provider Name and Address Organization Details Recorded Time 07/25/19 22 removal of implantable cardiac pacemaker completed [facility] 07/29/2021 10:09:55 07/03/19 22 replacement of electronic heart device, pulse generator completed [facility] 07/29/2021 10:16:21 transesophageal echocardiography completed [facility] 07/29/2021 10:10:01 Imaging Results None recorded. Procedure [...] Pulse oximetry Inhaled oxygen flow rate Systolic And Diastolic Provider Name and Address Organization Details Last Updated DateTime 2 167.64 cm 22.6 kg/m2 10141.9 3 g 76 /min 91 % 91 % 4 L/min 106/70 mm[Hg] Mireille Deshpande [facility] 2 10:19:54 Date Recorded Body weight Body mass index (BMI) Body height Body temperature Provider Name and Address Organization Details Last Updated DateTime 01/27/2017 53434.09 g 29.3 kg/m2 167.64 cm 97.5 [degF] Isabell Ramoscharley [facility] 01/27/2017 16:15:45 Social History Question Answer Notes LastModified by Organizat ion Details LastModified Time Tobacco Smoking Status Former Smoker Mireille Deshpande [facility] 07/30/2021 10:13:31 What Was The Date Of Your Most Recent Tobacco Screening? 07/30/2021 [email or web address] Information not available 07/30/2021 Has Tobacco Cessation Counseling Been Provided? No [email or web address] Information not available 07/30/2021 Sex: Unknown Functional [...] available 2016 16:11:17 Medical History Condition Response Anesthesia Complications N Heart Attack (HI) Y Heart Disease Y Bleeding Disorder N Cancer N Hypertension Y Alcohol Overuse/Alcohol Abuse N Gynecological HistoryNo gynecological history recorded. Obstetrics History GPAL:G 0 P 0 0 0 0 Past Encounters Encounter ID Performer Location Encounter Start Date Encounter Closed Date Diagnosis/Indication Diagnosis SNOMED-CT Code Diagnosis ICD10 Code Diagnosis Note [id number] KRISTOPHER AVILA III, [place] [facility] [address] [place] [address] 01/27/2017 15:44:32 01/28/2017 09:23:17 Dysphagia 50162759 R13.10 Nicotine dependence 5629 4008 F17.200 Thyroid nodule 405673316 E04.1 Cyst of thyroid 56281741 E04.1 Chronic hoarseness 30636 10390 105 R49.0 Hypertroph y of nasal turbinates 66255386 J34.3 Excessive belching 32063 7000 R14.2 [id number] ABBE HOLLEY MD [facility] [address] [place] [address] ,[address] [place] [address] 07/30/2021 10:05:00 07/30/2021 10:27:26 Wound of skin 033471328 T14.8XXD Patient's incision is well-heale d. Follow-up as noted above. Health Concerns Section Related Observation LastModified by Organization Detai ls LastModified Time None Recorded Concern Status LastModified by Organization Details LastModified Time None Recorded Advance Directives Directive None Recorded Payers Insurance Date Sequence Insurance Name Policy Number Policy Harding Covered Member ID Harding Member ID Guarantor Name 07/30/2021 1 [place] Lena Chandler [id number] Lena Chandler 04/21/2018 1 *SELF PAY* Pina Chandler 08/06/2021 1 [facility] (MEDICARE [facility]PLACEMENT/ ADVANTAGE - HMO) Lena Chandler [id number] Lena Chandler Notes Date Note Type Note [...] or Barium swallow. KRISTOPHER AVILA III, MD [address] [place] [address], [phone], [facility] 01/27/2017 17:33:10 07/30/2021 text/html Mrs. 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 She is normally followed by Dr. Mariscal. He reports no problems with wound healing and is anticipating a follow-up with Dr. Mariscal later this month. ABBE HOLLEY MD [address] [place] [address], [address], [facility] 07/30/2021 10:24:58 OBGyn Episode No OBEpisode recorded.
--- OUTSIDE RECORDS SUMMARY | 2024-08-23 13:36 | XMS_ITS | Encounter Summary ---
Author Organization [employer] ([place], [place], [place], [place]) Address [address] [place] [address] Care Team Providers Care Vibration Technician Name Role Phone Lalitha Linhkarthikeyan Mazariegos DO Primary Care Provider [phone] Lizzie Alves PA-C Unavailable [phone] Kaushik Mariscal MD Unavailable Encounter Details Date Type Department Care Team (Late st Contact Info) Description 07/16/2021 Transcribed Document [facility] [place] Family Medicine [address] [place] [address] ProviderChad MD [address] [place] [address] Social History Tobacco Use Types Packs/Day [...] Conversion Note - Historical ProviderMD - 07/16/2021 12:47 PM CDT Patient: LENA MENDOZA [facility]: [id number] Age: 55 years Sex: Female : 1965 Associated Diagnoses: Pacemaker pocket hematoma Author: FENG MODI MD-EMR Basic Information Additional information: Chief Complaint from Nursing Triage Note : Chief Complaint 07/16/2021 12:06 EDT Chief Complaint Pt states she has a blood pocket surrounding her pacemaker. Was brought over by EP lab. Pacemaker places [address] Mariscal, clinical trial assistant. 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 States 02 run between [...] 50 mcg inhalation powder: 1 Puff, Inhalation, [id number], rinse mouth and throat after use, 30 [...] Current smoker Gout High cholesterol History of [place] (myocardial infarction) Intermittent claudication Pacemaker PAD (peripheral [...] Assessment: ED C-SSRS: ED Clinical Reconciliation: ED senior microsoft consultant: Peripheral IV Insertion: Completed .Automated Differential: Aerosol [...] % 33.7 % Lymph # 2.49 x10(3)/uL Aurora % 7.7 % Aurora # 0.57 K/uL Eos % 1.1 % Eos # 0.08 x10(3)/uL Baso % 1.5 % Baso # 0.11 x10(3)/uL Slide Review No IG# 0.02 x10(3)/uL IG% 0.30 % PT 11.1 Second(s) INR 1.0 Procalcitonin <0.25 ng/mL . Radiology results: Radiology Results (Last 48 hours) [id number] -- 07/16/2021 12:00 CR Chest 1 Vw [...] Admitting: REYNALDO CURIEL MD-INT. Electronically signed by Rekha [facility] Conversion Head Butler Cerner at 05/27/2022 8:59 PM CDT documented in this encounter Plan of Treatment Not on file documented as of this encounter Visit Diagnoses Not on filedocumented in this encounter Care Teams Vibration Technician Relationship Specialty Start Date End Date Linh Doty, [address] [place] [address] PCP - General Family Medicine 11/04/22 Lizzie Alves PA-C [address] [place] [address], [facility] [address] [place] [address] Hospitalist Cardiology 05/27/23 Kaushik Mariscal MD [address] [place] [address] [place] [address] Recycling Worker Electrophysiology 11/18/23 documented as of this encounter
--- OUTSIDE RECORDS SUMMARY | 2024-08-23 13:36 | XMS_ITS | Clinical Summary ---
Author Organization [employer] ([place], [place], [place], [place]) Address [address] [place] [address] Care Team Providers Care Steel Heater Name Role Phone Linh Doty DO Primary Care Provider [phone] Lizzie Alves PA-C Unavailable [phone] Kaushik Mariscal MD Unavailable Allergies No [...] 75 mg tabletIndications :Atherosclerotic heart disease of lummi coronary artery without angina pectoris TAKE ONE [...] Description 07/15/2024 5:00 AM EDT Clinical Support [facility] Electrophysiology [address] [place] [address] Louise Gottlieb MD Encounter for adjustment or management of cardiac device (Primary Dx); Ischemic cardiomyopathy with implantable cardioverter-defibrill ator (ICD); Chronic combined systolic and diastolic congestive heart failure (HCC) 07/11/2024 6:00 AM EDT Clinical Support [facility] Electrophysiology [address] [place] [address] Louise Gottlieb MD Encounter for adjustment or management of cardiac device (Primary Dx); Ischemic cardiomyopathy with implantable cardioverter-defibrill ator (ICD); Chronic combined systolic and diastolic congestive heart failure (HCC) 06/13/2024 6:00 AM EDT Clinical Support [facility] Electrophysiology [address] [place] [address] Kaushik Mariscal MD Encounter for adjustment [...] Cessation Counseling and Screening (12+) 05/27/2024 05/28/2023 Influenza Vaccine (#1) 2024 12/15/2023, 2020 DTAP/TDAP/TD VACCINES (2 - Td or Tdap) 01/29/2031 Medical Devices Implanted Type Area Mate First Device Identifier Shelf Expiration Date Model / Serial / Lot Icd-08/26/2021 Implanted:08/26 by Kaushik Mariscal MD (Quantity not on file) ICD [employer] 500Q / [id number] / Insurance [facility] ADV Care Teams Steel Heater Relationship Specialty Start Date End Date Linh Doty, [address] [facility] [address] [place] [address] PCP - General Family Medicine 11/04/22 Lizzie Alves PA-C [address] [facility], [facility] [address] [place] [address] Hospitalist Cardiology 05/27/23 Kaushik Mariscal MD [address] [facility] [address] [place] [address] Bowl Sander Electrophysiology 11/18/23
--- OUTSIDE RECORDS SUMMARY | 2024-08-23 13:36 | XMS_ITS | Encounter Summary ---
Author Organization [employer] ([place], [place], [place], [place]) Address [address] [place] [address] Care Team Providers Care Information Systems Security Specialist Name Role Phone Lalitha Linhkarthikeyan Mazariegos DO Primary Care Provider [phone] Lizzie Alves PA-C Unavailable [phone] Kaushik Mariscal MD Unavailable Encounter Details Date Type Department Care Team (Late st Contact Info) Description 07/25/2021 Transcribed Document [facility] [place] [address] [place] [address] ProviderChad MD [address] [place] [address] Social History Tobacco Use Types Packs/Day Years Used Date Smoking Tobacco: Never Assessed Family and Community Support Answer Geremias e Recorded Help with Day to Day Activities Not on file 02/27/2023 Feeling Lonely or Isolated Not on file 02/27 Educational Attainment Answer Date Mendez rded Speak language other than Bermudian at home Not on file 02/27/2023 Want [...] Cerner Conversion Note - Historical ProviderMD - 07/25/2021 2:00 PM CDT Final Discharge Planning Entered On: 07/25/2021 14:01 EDT Performed On: 07/25/2021 14:00 EDT by Mayra Vann, Sleeve Maker Rn Final Discharge Planning Discharge Arrangements : Patient Post-Acute Information Patient Name: LENA MENDOZA Gender: Female : 63 Age: 55 [...] Health Services (Related/SOC within 3 days)-06 Mayra Vann Sleeve Maker Rn - 07/25/2021 14:00 EDT Final Narrative Note Final Narrative Note : patient with orders to dc home. sebastien for hh. [facility] for home o2. SO to transport patient home with no mobility concerns. im and choice signed and on chart. Mayra Vann Sleeve Maker Rn - 07/25/2021 14:00 EDT documented in this encounter Plan of Treatment Not on file documented as of this encounter Visit Diagnoses Not on filedocumented in this encounter Care Teams Information Systems Security Specialist Relationship Specialty Start Date End Date Linh Doty, DO [address] [place] [address] PCP - General Family Medicine 11/04/22 Lizzie Alves PA-C [address] , [facility] [address] [place] [address] Hospitalist Cardiology 05/27/23 Kaushik Mariscal MD [address] [facility] [place] [address] Launchman Electrophysiology 11/18/23 documented as of this encounter
--- OUTSIDE RECORDS SUMMARY | 2024-08-23 13:36 | XMS_ITS | Encounter Summary ---
Author Organization [employer] ([place], [place], [place], [place]) Address [address] [place] [address] Care Team Providers Care Licensed Surveyor Name Role Phone Linh William DO Primary Care Provider [phone] Lizzie Alves PA-C Unavailable [phone] Kaushik Mariscal MD Unavailable Encounter Details Date Type Department Care Team (Late st Contact Info) Description 11/23/2018 Transcribed Document [facility] [place] [facility] [place] [address] ProviderChad MD [address] [place] [address] Social History Tobacco Use Types Packs/Day [...] Merchant MD - 11/23/2018 1:18 PM CDT [facility] [place] [address] GAGAN MENDOZA :1965 Visit Time:11/23/2018 Your Visit Summary Your Care Team Admitting Physician - PUNEET BROOKS MD-CAR Attending Physician - PUNEET BROOKS MD-CAR Primary Care Physician - LINH WILLIAM [facility] Referring Physician - PUNEET BROOKS MD-CAR Your Diagnosis Atherosclerosis of [place] arteries of extremities with intermittent claudication, right leg, Atherosclerosis of [place] arteries of extremities with intermittent claudication, right leg Discharge Vitals Temperature 36.2 ??C Heart Rate (Monitored) 82 Respiratory Rate 31 Blood Pressure 118/66 What to do next Instructions From Your Care Team 1. No driving for 24 hrs post procedure. 2. If site bleeds- call 911. hold pressure at the site. 3. Stroke- signs and symptoms - call 911. 4. Start plavix tomorrow. nuclear medicine supervisor chantix- at pharmacy. Follow-Up Appointments Follow Up with [facility] When Within 2 to 4 weeks Medications What How Much When Instructions Next Dose clopidogrel (Plavix 75 mg oral tablet) 1 Tablet(s) Oral Every Day Refills: 6 Pickup at [place], [place] varenicline (Chantix 1 mg oral tablet) 1 Tablet(s) Oral Two Times A Day after meals Pickup at [facility] [place], [place] varenicline (Chantix Starter Pack 0.5 mg-1 mg oral tablet) 1 Tablet(s) Oral Two Times A Day as directed on package labeling Pickup at [place], [place] acetaminophen (Tylenol) Oral As needed for [...] Oral Two Times A Day Pharmacy Information [facility] - [place]aj[place]: [address] [facility] [address] [place] [phone] Take your medications faithfully. Do NOT skip [...] Document Reviewed: 02/28/2011 ExitCare?? Patient Information ??2014 [employer]. Cerebral Angiogram, Care After This sheet gives [...] and water are not available, use hand production support manager. ? Change your dressing as told by [...] contrast dye from your body. ??? Take dnhj-jdh-oehbrav and prescription medicines only as told by [...] you are awake and alert. ??? Take tabu-xak-eitjart and prescription medicines only as told by [...] Document Reviewed: 05/17/2016 Elsevier Interactive Patient Education ?? 2019 [employer] Emergency Awareness and Preventative Care STROKE [...] Assistance with quitting is available by contacting 2-462-DXBQNOW. This is a free resource providing counseling, support, and referral. Or you may contact your personal physician. [place] Suicide Prevention Lifeline: The National Suicide Prevention [...] 163 and 369 ) Patient Name:GAGAN MENDOZA Shy I have received and understand this information and was given the opportunity to ask questions. Patient/Fisheries Enforcement Officer Name: Patient/Fisheries Enforcement Officer Signature: Relationship to Patient: Clinician/Hospital Fisheries Enforcement Officer Signature: Date: documented in this encounter Plan of Treatment Not on file documented as of this encounter Visit Diagnoses Not on filedocumented in this encounter Care Teams Licensed Surveyor Relationship Specialty Start Date End Date Linh William, DO 8 [facility] [address] [place] [address] PCP - General Family Medicine 11/04/22 Lizzie Alves PA-C [address] [place] [address], [facility] [address] [place] [address] Hospitalist Cardiology 05/27/23 [place] [address] [place] [address] [address] [place] [address] Purchasing And Claims Supervisor Electrophysiology 11/18/23 documented as of this encounter
--- OUTSIDE RECORDS SUMMARY | 2024-08-23 13:36 | XMS_ITS | Encounter Summary ---
Author Organization [employer] ([place], [place], [place], [place]) Address [address] [place] [address] Care Team Providers Care Manager Store Name Role Phone Lalitha Linh Delilah DAVIS Primary Care Provider [phone] Lizzie Alves PA-C Unavailable [phone] Kaushik Mariscal MD Unavailable Encounter Details Date Type Department Care Team (Late st Contact Info) Description 07/01/2021 Transcribed Document [facility] [place] Family Medicine [address] [place] [address] ProviderChad MD [address] [place] [address] Social History Tobacco Use Types Packs/Day [...] Historical ProviderMD - 07/01/2021 5:16 PM CDT Excavating Contractor Details Entered On: 07/01/2021 22:37 EDT Performed On: 07/01/2021 20:00 EDT by Kait Kang RN Order Details Transport Mode Order Detail [...] - 07/01/2021 22:37 EDT Electronically signed by [facility] Conversion Overhead Distribution Engineer Cerner at 05/27/2022 9:02 PM CDT documented in this encounter Plan of Treatment Not on file documented as of this encounter Visit Diagnoses Not on filedocumented in this encounter Care Teams Manager Store Relationship Specialty Start Date End Date Linh Doty, 8 [facility] [address] [place] [address] PCP - General Family Medicine 11/04/22 Lizzie Alves PA-C 14[address] [facility], [facility] [address] [place] [address] Hospitalist Cardiology 05/27/23 Kaushik Mariscal MD [address] [facility] [address] [place] [address] Printing Plate Clerk Electrophysiology 11/18/23 documented as of this encounter
--- OUTSIDE RECORDS SUMMARY | 2024-08-23 13:36 | XMS_ITS | Encounter Summary ---
Author Organization [employer] ([place], [place], [place], [place]) Address [address] [place] [address] Care Team Providers Care Broach Setter Name Role Phone Lalitha Linh Delilah DAVIS Primary Care Provider [phone] Lizzie Alves PA-C Unavailable [phone] Kaushik Mariscal MD Unavailable Encounter Details Date Type Department Care Team (Late st Contact Info) Description 07/01/2021 Transcribed Document [facility] [place] [address] [place] [address] ProviderChad MD [address] [place] [address] Social History Tobacco Use Types Packs/Day Years Used Date Smoking Tobacco: Never Assessed Family and Community Support Answer Geremias e Recorded Help with Day to Day Activities Not on file 02/27/2023 Feeling Lonely or Isolated Not on file 02/27 Educational Attainment Answer Date Mendez rded Speak language other than Swazi at home Not on file 02/27/2023 Want [...] Conversion Note - Historical ProviderMD - 07/01/2021 7:38 PM CDT Event [...] on filedocumented in this encounter Care Teams Broach Setter Relationship Specialty Start Date End Date Linh Doty, DO [address] [facility] [address] [place] [address] PCP - General Family Medicine 11/04/22 Lizzie Alves PA-C 14[address] [facility], [facility] [address] [place] [address] Hospitalist Cardiology 05/27/23 Kaushik Mariscal MD 14[address] [facility] [address] [place] [address] Architectural Project Manager Electrophysiology 11/18/23 documented as of this encounter
--- OUTSIDE RECORDS SUMMARY | 2024-08-23 13:36 | XMS_ITS | Encounter Summary ---
Author Organization [employer] ([place], [place], [place], [place]) Address [address] [place] [address] Care Team Providers Care Car Runner Name Role Phone Lalitha Linh Delilah DAVIS Primary Care Provider [phone] Lizzie Alves PA-C Unavailable [phone] Kaushik Mariscal MD Unavailable Encounter Details Date Type Department Care Team (Late st Contact Info) Description 07/01/2021 Transcribed Document [facility] [place] Family Medicine [address] [place] [address] ProviderChad MD [address] [place] [address] Social History Tobacco Use Types Packs/Day Years Used Date Smoking Tobacco: Never Assessed Family and Community Support Answer Geremias e Recorded Help with Day to Day Activities Not on file 02/27/2023 Feeling Lonely or Isolated Not on file 02/27 Educational Attainment Answer Date Mendez rded Speak language other than Qatari at home Not on file 02/27/2023 Want [...] Conversion Note - Historical ProviderMD - 07/01/2021 5:06 PM CDT Patient: LENA MENDOZA [facility]: [id number] Age: 55 Years Sex: Female : 1965 Power Plant Electrician: Kaushik Mariscal MD Indication: 55-year-old femalewith past [...] generator was a [employer] model [id number] SN [id number] that replaced the old generator. Complications: No immediate complications were observed. Blood loss around 10 mL. Conclusion: Successful Procedure(s) of: 1. SINGLE CHAMBER SYSTEM REPLACEMENT Plan: Discharge tomorrow. documented in this encounter Plan of Treatment Not on file documented as of this encounter Visit Diagnoses Not on filedocumented in this encounter Care Teams Car Runner Relationship Specialty Start Date End Date Luistobias Linh Delilah, DO 8 [facility] [address] [place] [address] PCP - General Family Medicine 11/04/22 Lizzie Alves PA-C [address] [facility] [address] [place] [address] Hospitalist Cardiology 05/27/23 Kaushik Mariscal MD 14[address] [facility] [address] [place] [address] Marketing Associate Electrophysiology 11/18/23 documented as of this encounter
--- OUTSIDE RECORDS SUMMARY | 2024-08-23 13:36 | XMS_ITS | Encounter Summary ---
Author Organization [employer] ([place], [place], [place], [place]) Address [address] [place] [address] Care Team Providers Care Developmental Mathematics Instructor Name Role Phone Lalitha Linhkarthikeyan Mazariegos DO Primary Care Provider [phone] Lizzie Alves PA-C Unavailable [phone] Kaushik Mariscal MD Unavailable Encounter Details Date Type Department Care Team (Late st Contact Info) Description 07/02/2021 Transcribed Document [facility] [place] [address] [place] [address] ProviderChad MD [address] [place] [address] Social History Tobacco Use Types Packs/Day Years Used Date Smoking Tobacco: Never Assessed Family and Community Support Answer Geremias e Recorded Help with Day to Day Activities Not on file 02/27/2023 Feeling Lonely or Isolated Not on file 02/27 Educational Attainment Answer Date Mendez rded Speak language other than Namibian at home Not on file 02/27/2023 Want [...] Conversion Note - Historical ProviderMD - 07/02/2021 12:49 PM CDT Final Discharge Planning Entered On: 07/02/2021 12:51 EDT Performed On: 07/02/2021 12:49 EDT by ERNIE PAYAN, RN-Diamond Cleaver Final Discharge Planning Discharge Arrangements : Patient [...] Facility or Self Care -01 ERNIE PAYAN, RN-Diamond Cleaver - 07/02/2021 12:49 EDT Final Narrative Note Final Narrative Note : see notes regarding pt decline of home 02. follow up appts scheduled with Dr Mariscal. Dr Doty, primary care. called office. out of office for lunch. left message for them to call pt with appt time next 2-3 days. discussed all with bedside SARAH Yu. ERNIE PAYAN, RN-Diamond Cleaver - 07/02/2021 12:49 EDT documented in this encounter Plan of Treatment Not on file documented as of this encounter Visit Diagnoses Not on filedocumented in this encounter Care Teams Developmental Mathematics Instructor Relationship Specialty Start Date End Date Linh Doty DO 8 [facility] [address] [place] [address] PCP - General Family Medicine 11/04/22 Lizzie Alves PA-C [address] , [facility] [address] [place] [address] Hospitalist Cardiology 05/27/23 Kaushik Mariscal MD 14[address] [place] [address] Forepart Rasper Electrophysiology 11/18/23 documented as of this encounter
--- OUTSIDE RECORDS SUMMARY | 2024-08-23 13:36 | XMS_ITS | Encounter Summary ---
Author Organization [employer] ([place], [place], [place], [place]) Address [address] [place] [address] Care Team Providers Care Zyglo Inspector Name Role Phone Lalitha Linhkarthikeyan Mazariegos DO Primary Care Provider [phone] Lizzie Alves PA-C Unavailable [phone] Dion Mariscal MD Unavailable Encounter Details Date Type Department Care Team (Late st Contact Info) Description 07/23/2021 Transcribed Document [facility] [place] [address] [place] [address] ProviderChad MD [address] [place] [address] Social History Tobacco Use Types Packs/Day Years Used Date Smoking Tobacco: Never Assessed Family and Community Support Answer Geremias e Recorded Help with Day to Day Activities Not on file 02/27/2023 Feeling Lonely or Isolated Not on file 02/27 Educational Attainment Answer Date Mendez rded Speak language other than Nigerian at home Not on file 02/27/2023 Want [...] Cerner Conversion Note - Historical ProviderMD - 07/23/2021 12:33 PM CDT Patient: GAGAN [...] 3 mL, Nebulized Inhalation , Q8H ergocalciferol, 23780 Units= 1 Cap, Oral, Weekly Florastor, 250 [...] MD 07/22/2021 13:42 EDT Electronically signed by [facility] Conversion Lab Clerk Cerner at 05/27/2022 9:24 PM CDT documented in this encounter Plan of Treatment Not on file documented as of this encounter Visit Diagnoses Not on filedocumented in this encounter Care Teams Zyglo Inspector Relationship Specialty Start Date End Date Lalitha Linh L, DO 8 [facility] [address] [place] [address] PCP - General Family Medicine 11/04/22 Lizzie Alves PA-C [address] [place] [address], [facility] [address] [place] [address] Hospitalist Cardiology 05/27/23 Dion Mariscal MD 1401 [facility] [address] [place] [address] Soda Worker Electrophysiology 11/18/23 documented as of this encounter
--- OUTSIDE RECORDS SUMMARY | 2024-08-23 13:36 | XMS_ITS | Encounter Summary ---
Author Organization [employer] ([place], [place], [place], [place]) Address [address] [address] Care Team Providers Care Spotter Driver Name Role Phone Lalitha Linhkarthikeyan Mazariegos DO Primary Care Provider [phone] Lizzie Alves PA-C Unavailable [phone] Kaushik Mariscal MD Unavailable Encounter Details Date Type Department Care Team (Late st Contact Info) Description 07/23/2021 Transcribed Document [facility] [place] Family Medicine [address] [place] [address] ProviderChad MD [address] [place] [address] Social History Tobacco Use Types Packs/Day Years Used Date Smoking Tobacco: Never Assessed Family and Community Support Answer Geermias e Recorded Help with Day to Day Activities Not on file 02/27/2023 Feeling Lonely or Isolated Not on file 02/27 Educational Attainment Answer Date Mendez rded Speak language other than Niuean at home Not on file 02/27/2023 Want [...] Conversion Note - Historical ProviderMD - 07/23/2021 8:30 PM CDT Spiritual Care Short Form Entered On: 07/23/2021 21:21 EDT Performed On: 07/23/2021 20:30 EDT by Rei Jauregui Chaplain-Non Cert General Information, Spiritual Care Spiritual Care Referred by : initiated Reason for Visit : Initial Ministry Provided to : Patient, Family/Significant other Intervention/Comment/Summary Points : Pre-surgery visit. Pt appeared to be resting comfortably. Pt's mother at bedside. Spiritual/Emotional Acuity : No Concern Rei Jauregui Chaplain-Non Cert - 07/23/2021 21:20 EDT Electronically signed by Rekha [facility] Conversion E/M Engineer Cerner at 05/27/2022 9:10 PM CDT documented in this encounter Plan of Treatment Not on file documented as of this encounter Visit Diagnoses Not on filedocumented in this encounter Care Teams Spotter Driver Relationship Specialty Start Date End Date Linh Doty, 8 [facility] [address] [place] [address] PCP - General Family Medicine 11/04/22 Lizzie Alves PA-C [address] [place] [address], [facility] [address] [place] [address] Hospitalist Cardiology 05/27/23 Kaushik Mariscal MD [address] [facility] [address] [place] [address] Geospatial Information Technologist Electrophysiology 11/18/23 documented as of this encounter
--- OUTSIDE RECORDS SUMMARY | 2024-08-23 13:36 | XMS_ITS | Encounter Summary ---
Author Organization [employer] ([place], [place], [place], [place]) Address [address] [place] [address] Care Team Providers Care Licensed Marriage And Family Therapist Name Role Phone Lalitha Linh Delilah DAVIS Primary Care Provider [phone] Lizzie Alves PA-C Unavailable [phone] Kaushik Mariscal MD Unavailable Encounter Details Date Type Department Care Team (Late st Contact Info) Description 07/16/2021 Transcribed Document [facility] [place] [address] [place] [address] ProviderChad MD [address] [place] [address] Social History Tobacco Use Types [...] Conversion Note - Historical ProviderMD - 07/16/2021 5:00 PM CDT Chart Check - Review Order Profile Entered On: 07/17/2021 20:01 EDT Performed On: 07/16/2021 17:00 EDT by Anita Ko, RN Chart Check Powerplans Initiated/Discontinued as Appropriate : Yes All Active Orders Reviewed : Yes Anita Ko, RN - 07/17/2021 20:01 EDT Electronically signed by Rekha [facility] Conversion International Marketing Intern Cerner at 05/27/2022 9:04 PM CDT documented in this encounter Plan of Treatment Not on file documented as of this encounter Visit Diagnoses Not on filedocumented in this encounter Care Teams Licensed Marriage And Family Therapist Relationship Specialty Start Date End Date Linh Doty, DO 8 [facility] [address] [place] [address] PCP - General Family Medicine 11/04/22 Lizzie Alves PA-C [address] [place] [address], [facility] [address] [place] [address] Hospitalist Cardiology 05/27/23 Kaushik Mariscal MD 14[address] [facility] [address] [place] [address] Dinkey Skinner Electrophysiology 11/18/23 documented as of this encounter
--- OUTSIDE RECORDS SUMMARY | 2024-08-23 13:36 | XMS_ITS | Encounter Summary ---
Author Organization [employer] ([place], [place], [place], [place]) Address [address] [place] [address] Care Team Providers Care Service Person Name Role Phone Lalitha Linhkarthikeyan Mazariegos DO Primary Care Provider [phone] Lizzie Alves PA-C Unavailable [phone] Kaushik Mariscal MD Unavailable Encounter Details Date Type Department Care Team (Late st Contact Info) Description 11/23/2018 Transcribed Document [facility] [place] [facility] [place] [address] ProviderChad MD [address] [place] [address] Social History Tobacco Use Types Packs/Day Years Used Date Smoking Tobacco: Never Assessed Comments Unknown Sex and Gender Information Value Date Recorded Sex Assigned at Not on file Legal Sex Female 3:27 PM CDT Gender Identity Not on file Sexual Orientation Not on file documented as of this encounter Miscellaneous Notes * Cerner Conversion Note - Chad ProviderMD - 11/23/2018 7:39 AM CDT Pre Procedure Adult Entered On: 11/23/2018 7:46 EDT Performed On: 11/23/2018 7:39 EDT by ELAINE CHOI RN Height and Weight, Clinical Dosing Height Source : Stated Height Entry Format : [place] Height, Feet : 0 ft(Converted to: 0 cm, 0 Inch) Height, Inches : 70 Inch(Converted to: 5 ft 10 Inch, 177.80 cm) Clinical Height : 177.8 cm Weight Source : Standing scale Weight Entry Format : [place] Clinical Dosing Weight : 77.27 kg Weight, Pounds : 170 lb Body Surface Area (BSA) : 1.95 m2 Body Mass Index : 24.4 kg/m2 ([place]) [place] Body Weight : 68 kg ELAINE CHOI [...] : No Emergency Contact #1 : Alexx- [phone]- cell number Emergency Contact #1 Phone Number : boyfriend. Emergency Contact #1 Relationship : - Emergency Contact #2 : - Emergency Contact #2 Phone Number : - Emergency Contact #2 Relationship : - Primary Language : Salvadorean Communication Barrier : None ELAINE CHOI RN [...] Scale Risk Level : 0-24 Low Risk [place] Fall Interventions : Wheels locked ELAINE CHOI [...] Electronically signed by Reyna Da Silva Conversion New Vehicle Sales Consultant Cerner at 05/27/2022 9:14 PM CDT documented in this encounter Plan of Treatment Not on file documented as of this encounter Visit Diagnoses Not on filedocumented in this encounter Care Teams Service Person Relationship Specialty Start Date End Date Linh Doty, [address] [place] [address] PCP - General Family Medicine 11/04/22 Lizzie Alves PA-C [address] , [facility] [address] [place] [address] Hospitalist Cardiology 05/27/23 Kaushik Mariscal MD [address] [facility] [place] [address] Sales Specialist Electrophysiology 11/18/23 documented as of this encounter
--- OUTSIDE RECORDS SUMMARY | 2024-08-23 13:36 | XMS_ITS | Encounter Summary ---
Author Organization [employer] ([place], [place], [place], [place]) Address [address] [place] [address] Care Team Providers Care Recenterer Name Role Phone Linh Doty DO Primary Care Provider [phone] Lizzie Alves PA-C Unavailable [phone] Kaushik Mariscal MD Unavailable Encounter Details Date Type Department Care Team (Late st Contact Info) Description 11/23/2018 Transcribed Document [facility] Family Medicine [facility] [place] [address] ProviderChad MD [address] [place] [address] Social History Tobacco Use Types Packs/Day Years Used Date Smoking Tobacco: Never Assessed Comments Unknown Sex and Gender Information Value Date Recorded Sex Assigned at Not on file Legal Sex Female 3:27 PM CDT Gender Identity Not on file Sexual Orientation Not on file documented as of this encounter Miscellaneous Notes * Cerner Conversion Note - Historical ProviderMD - 11/23/2018 1:33 PM CDT Event Note Entered On: 11/23/2018 13:33 EDT Performed On: 11/23/2018 13:33 EDT by ELAINE CHOI RN Event Note Event Location : Other: `1330 - pivl dc . pt dc after ambulation. Hallway - ambuated with o difficulty. Right groin stable. l ELAINE CHOI RN - 11/23/2018 13:33 EDT Electronically signed by Rekha [facility] Conversion Labelling Machine Operator Cerner at 05/27/2022 9:20 PM CDT documented in this encounter Plan of Treatment Not on file documented as of this encounter Visit Diagnoses Not on filedocumented in this encounter Care Teams Recenterer Relationship Specialty Start Date End Date Linh Doty, DO 8 [facility] [address] [place] [address] PCP - General Family Medicine 11/04/22 Lizzie Alves PA-C [address] [place] [address], [facility] [address] [place] [address] Hospitalist Cardiology 05/27/23 Kaushik Mariscal MD [address] [facility] [address] [place] [address] Dicer Machine Operator Electrophysiology 11/18/23 documented as of this encounter
--- OUTSIDE RECORDS SUMMARY | 2024-08-23 13:36 | XMS_ITS | Encounter Summary ---
Author Organization [employer] ([place], [place], [place], [place]) Address [address] [place] [address] Care Team Providers Care Head Grinder Name Role Phone Lalitha Linhkarthikeyan Mazariegos DO Primary Care Provider [phone] Lizzie Alves PA-C Unavailable [phone] Kaushik Mariscal MD Unavailable Encounter Details Date Type Department Care Team (Late st Contact Info) Description 07/23/2021 Transcribed Document [facility] [place] [address] [place] [address] ProviderChad MD [address] [place] [address] Social History Tobacco Use Types Packs/Day Years Used Date Smoking Tobacco: Never Assessed Family and Community Support Answer Geremias e Recorded Help with Day to Day Activities Not on file 02/27/2023 Feeling Lonely or Isolated Not on file 02/27 Educational Attainment Answer Date Mendez rded Speak language other than Guatemalan at home Not on file 02/27/2023 Want [...] Conversion Note - Historical ProviderMD - 07/23/2021 1:56 PM CDT On Going Discharge Planning Entered On: 07/23/2021 13:57 EDT Performed On: 07/23/2021 13:56 EDT by Mayra Vann Product Support Analyst Rn Care Management Progress Note Discharge Arrangements [...] Attend Multidisciplinary Rounds? : Yes Mayra Vann Product Support Analyst Rn - 07/23/2021 13:56 EDT Narrative Progress Note Narrative Progress Note : hd 7 elos 5 low rar Plan for AICD removal 07/24 dcp- home with iv abx and hh after PPm removal Historical Progress Note : hd 6 elos 5 low rar patient [facility], planned for dc today however patient now to have AICD removed on 07/24 dcp- home ?iv abx after aicd removal Mayra Vann Product Support Analyst Rn - 07/22/21 11:22:31 hd 3 elos 5 low rar [facility] abx administration saturday 07/22. Per EP, plan to dc patient saturday 07/22. Lisa for HH. Mayra Vann Product Support Analyst Rn - 07/19/21 13:36:36 hd 2 low rar patient has orders from ID r/t iv abx and picc care but patient has no orders for PICC placement at this time, CM has reached out to ID. home abx orders sent to [facility]. patient will also need hh dcp- home with hh and iv abx Mayra Vann Product Support Analyst Rn - 07/18/21 16:10:37 Mayra Vann, Product Support Analyst Rn - 07/23/2021 13:56 EDT documented in this encounter Plan of Treatment Not on file documented as of this encounter Visit Diagnoses Not on filedocumented in this encounter Care Teams Head Grinder Relationship Specialty Start Date End Date Linh Doty, 8 [facility] [address] [place] [address] PCP - General Family Medicine 11/04/22 Lizzie Alves PA-C 1401 [facility], [facility] [address] [place] [address] Hospitalist Cardiology 05/27/23 Kaushik Mariscal MD 1401 [facility] [address] [place] [address] Machine Room Operator Electrophysiology 11/18/23 documented as of this encounter
--- OUTSIDE RECORDS SUMMARY | 2024-08-23 13:36 | XMS_ITS | Encounter Summary ---
Author Organization [employer] ([place], [place], [place], [place]) Address [address] [place] [place] [address] Care Team Providers Care Supervisor Inspection Department Name Role Phone Lalitha Linhkarthikeyan Mazariegos DO Primary Care Provider [phone] Lizzie Alves PA-C Unavailable [phone] Kaushik Mariscal MD Unavailable Encounter Details Date Type Department Care Team (Late st Contact Info) Description 07/23/2021 Transcribed Document [facility] Family Medicine [address] [place] [address] ProviderChad MD [address] [place] [address] Social History Tobacco Use Types Packs/Day [...] Conversion Note - Historical ProviderMD - 07/23/2021 2:00 AM CDT Parts Sales Associate Details Entered On: 07/23/2021 2:24 EDT Performed On: 07/23/2021 2:00 EDT by Jessica Recinos Lpn Order Details Patient Needs Meds Crushed/Liquid : No Jessica Recinos Lpn - 07/23/2021 2:24 EDT Electronically signed by [facility] Conversion Jukebox Routeman Cerner at 05/27/2022 9:03 PM CDT documented in this encounter Plan of Treatment Not on file documented as of this encounter Visit Diagnoses Not on filedocumented in this encounter Care Teams Supervisor Inspection Department Relationship Specialty Start Date End Date Linh Doty, 8 [facility] [address] [place] [address] PCP - General Family Medicine 11/04/22 Lizzie Alves PA-C 1401 [facility], [facility] [address] [place] [address] Hospitalist Cardiology 05/27/23 Kaushik Mariscal MD [address] [facility] [address] [place] [address] Consulting Services Project Manager Electrophysiology 11/18/23 documented as of this encounter
--- OUTSIDE RECORDS SUMMARY | 2024-08-23 13:36 | XMS_ITS | Encounter Summary ---
Author Organization [employer] ([place], [place], [place], [place]) Address [address] [place] [address] Care Team Providers Care Steep Tender Name Role Phone Lalitha Linhkarthikeyan Mazariegos DO Primary Care Provider Lizzie Alves PA-C Unavailable [phone] Kaushik Mariscal MD Unavailable Encounter Details Date Type Department Care Team (Late st Contact Info) Description 07/23/2021 Transcribed Document [facility] [place] [address] [place] [address] ProviderChad MD [address] [place] [address] Social History Tobacco Use Types Packs/Day Years Used Date Smoking Tobacco: Never Assessed Family and Community Support Answer Geremias e Recorded Help with Day to Day Activities Not on file 02/27/2023 Feeling Lonely or Isolated Not on file 02/27 Educational Attainment Answer Date Mendez rded Speak language other than Mauritanian at home Not on file 02/27/2023 Want [...] Conversion Note - Historical ProviderMD - 07/23/2021 11:18 PM CDT Nutrition [...] 7-[address] also available PRN. Ludivina Nicole Dietitian - 07/24/2021 12:28 EDT documented in this encounter Plan of Treatment Not on file documented as of this encounter Visit Diagnoses Not on filedocumented in this encounter Care Teams Steep Tender Relationship Specialty Start Date End Date Linh Doty, 8 [facility] [place] [facility] [address] [place] [address] PCP - General Family Medicine 11/04/22 Lizzie Alves PA-C 1401 [facility], [facility] [address] [place] [address] Hospitalist Cardiology 05/27/23 Kaushik Mariscal MD 1401 [facility] [address] [place] [address] Precision Dancer Electrophysiology 11/18/23 documented as of this encounter
--- OUTSIDE RECORDS SUMMARY | 2024-08-23 13:36 | XMS_ITS | Encounter Summary ---
Author Organization [employer] ([place], [place], [place], [place]) Address [address] [place] [address] Care Team Providers Care Dining Service Worker Name Role Phone Linh Doty DO Primary Care Provider Lizzie Alves PA-C Unavailable [phone] Kaushik Mariscal MD Unavailable Reason for Visit * Reason Comments Medication Refill Encounter Details Date Type Department Care Team (Late st Contact Info) Description 04/27/2023 Refill [facility] Cardiology [address] [place] [address] Lenka Benavidez MD 14[address] [facility] [address] [place] [address] Atherosclerotic heart disease of inupiat coronary artery without angina pectoris; Personal history [...] Date Mendez rded Speak language other than Faroese at home Not on file 02/27/2023 Want [...] Visit Diagnoses Diagnosis Atherosclerotic heart disease of inupiat coronary artery without angina pectoris Personal history of other diseases of the circulatory system documented in this encounter Care Teams Dining Service Worker Relationship Specialty Start Date End Date Linh Doty, 8 [facility] [address] [place] [address] PCP - General Family Medicine 11/04/22 Lizzie Alves PA-C 1401 [facility], [facility] [address] [place] [address] Hospitalist Cardiology 05/27/23 Kaushik Mariscal MD [address] [facility] [address] [place] [address] Dining Service Worker Electrophysiology 11/18/23 documented as of this encounter
--- OUTSIDE RECORDS SUMMARY | 2024-08-23 13:36 | XMS_ITS | Encounter Summary ---
Author Organization [employer] ([place], [place], [place], [place]) Address [address] [place] [address] Care Team Providers Care Highway Patrol Pilot Name Role Phone Linh Doty DO Primary Care Provider Lizzie Alves PA-C Unavailable [phone] Kaushik Mariscal MD Unavailable Encounter Details Date Type Department Care Team (Late st Contact Info) Description 11/23/2018 Transcribed Document [facility] [place] [address] ProviderChad MD [address] [place] [address] Social History Tobacco Use Types Packs/Day [...] Document Reviewed: 02/28/2011 ExitCare? Patient Information ?2013 [employer]. Cerebral Angiogram, Care After This sheet gives [...] and water are not available, use hand accounting tutor. ? Change your dressing as told by [...] contrast dye from your body. ??? Take bhae-eiv-xzxnegm and prescription medicines only as told by [...] 06/12/2014 Document Revised: 03/02/2017 Document Reviewed: 03/02/2017 [employer] Interactive Patient Education ? 2019 Elsevier Inc. [...] you are awake and alert. ??? Take raka-edm-mysbkbs and prescription medicines only as told by [...] 11/16/2013 Document Revised: 06/30/2016 Document Reviewed: 05/17/2016 [employer] Interactive Patient Education ? 2019 [employer] documented in this encounter Plan of Treatment Not on file documented as of this encounter Visit Diagnoses Not on filedocumented in this encounter Care Teams Highway Patrol Pilot Relationship Specialty Start Date End Date Linh Doty, DO 8 [facility] [address] [place] [address] PCP - General Family Medicine 11/04/22 Lizzie Alves PA-C 1401 [facility], [facility] [address] [place] [address] Hospitalist Cardiology 05/27/23 Kaushik Mariscal MD [address]01 [facility] [address] [place] [address] Associate Marketing Manager Electrophysiology 11/18/23 documented as of this encounter
--- OUTSIDE RECORDS SUMMARY | 2024-08-23 13:36 | XMS_ITS | Encounter Summary ---
Author Organization [employer] ([place], [place], [place], [place]) Address [address] [place] [address] Care Team Providers Care Roll Tension Tester Name Role Phone Lalitha Linhkarthikeyan Mazariegos DO Primary Care Provider [phone] Lizzie Alves PA-C Unavailable [phone] Kaushik Mariscal MD Unavailable Encounter Details Date Type Department Care Team (Late st Contact Info) Description 07/25/2021 Transcribed Document [facility] [place] [address] [place] [address] ProviderChad MD [address] [place] [address] Social History Tobacco Use Types [...] Conversion Note - Historical ProviderMD - 07/25/2021 1:48 PM CDT Patient Resource Center Entered On: 07/25/2021 13:51 EDT Performed On: 07/25/2021 13:48 EDT by Jeannie Rodriguez PUBLIC RELATIONS CONSULTANT Patient Resource Center Provider Status : EST Other Established Provider Name : Linh Doty Patient Phone Number : [phone] Patient Insurance Type : Medicare Source of [...] at ED : Other Primary Language : Prydeinig Patient Resource Center Comment : Patient needed primary care, cardiology and infectious disease appts. Primary care and cardiology appts have been made. Infectious disease appt has already been made. Follow Up Needed : No Jeannie Rodriguez PUBLIC RELATIONS CONSULTANT - 07/25/2021 13:48 EDT documented in this encounter Plan of Treatment Not on file documented as of this encounter Visit Diagnoses Not on filedocumented in this encounter Care Teams Roll Tension Tester Relationship Specialty Start Date End Date Linh Doty, DO [address] [place] [address] PCP - General Family Medicine 11/04/22 Lizzie Alves PA-C [address] [facility] [address] [place] [address] Hospitalist Cardiology 05/27/23 Kaushik Mariscal MD 1401 [facility] [place] [address] Coatings Inspector Electrophysiology 11/18/23 documented as of this encounter
--- OUTSIDE RECORDS SUMMARY | 2024-08-23 13:36 | XMS_ITS | Encounter Summary ---
Author Organization [employer] ([place], [place], [place], [place]) Address [address] [place] [address] Care Team Providers Care Metal Treater Name Role Phone Lalitha Linhkarthikeyan Mazariegos DO Primary Care Provider [phone] Lizzie Alves PA-C Unavailable [phone] Kaushik Mariscal MD Unavailable Encounter Details Date Type Department Care Team (Late st Contact Info) Description 07/02/2021 Transcribed Document [facility] [place] [address] [place] [address] ProviderChad MD [address] [place] [address] Social History Tobacco Use Types Packs/Day [...] Conversion Note - Historical ProviderMD - 07/02/2021 12:37 PM CDT Event Note Entered On: 07/02/2021 12:38 EDT Performed On: 07/02/2021 12:37 EDT by Aimee Betancur RN-Resource Event Note Description of Event : case managment at bedside. Patient is requiring oxygen at this time but has declined going home on it. will cont to monitor. Aimee Betancur RN-Resource - 07/02/2021 12:37 EDT Electronically signed by Rekha [facility] Conversion Trout Farmer Cerner at 05/27/2022 9:27 PM CDT documented in this encounter Plan of Treatment Not on file documented as of this encounter Visit Diagnoses Not on filedocumented in this encounter Care Teams Metal Treater Relationship Specialty Start Date End Date Linh Doty, 8 [facility] [address] [place] [address] PCP - General Family Medicine 11/04/22 Lizzie Alves PA-C [address] [place] [address], [facility] [address] [place] [address] Hospitalist Cardiology 05/27/23 Kaushik Mariscal MD 1401 [facility] [address] [place] [address] Hair Preparer Electrophysiology 11/18/23 documented as of this encounter
--- OUTSIDE RECORDS SUMMARY | 2024-08-23 13:36 | XMS_ITS | Encounter Summary ---
Author Organization [employer] ([place], [place], [place], [place]) Address [address] [place] [address] Care Team Providers Care Distribution System Operator Name Role Phone Lalitha Linhkarthikeyan Mazariegos DO Primary Care Provider [phone] Lizzie Alves PA-C Unavailable [phone] Kaushik Mariscal MD Unavailable Encounter Details Date Type Department Care Team (Late st Contact Info) Description 07/16/2021 Transcribed Document [facility] [place] [address] [place] [address] ProviderChad MD [address] [place] [address] Social History Tobacco Use Types Packs/Day Years Used Date Smoking Tobacco: Never Assessed Family and Community Support Answer Geremias e Recorded Help with Day to Day Activities Not on file 02/27/2023 Feeling Lonely or Isolated Not on file 02/27 Educational Attainment Answer Date Mednez rded Speak language other than Senegalese at [...] Conversion Note - Historical ProviderMD - 07/16/2021 2:27 PM CDT Admission History, [...] : No Emergency Contact #1 : Alexx Lewis Emergency [...] Pacemaker places [address] Mariscal, medicine technologist. 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 States 02 run between 88-93. Hx of COPD. Denies SOB/chest pain Information Obtained From : Patient, Spouse Primary Language : Senegalese Preferred Communication Mode : Verbal Communication Barrier : None Newspaper Manager Needed : No Anita Ko RN - [...] Scale Risk Level : 25-45 Medium Risk [place] Fall Interventions : Adequate lighting, Assistive devices [...] 07/01/2021 12:59:21 EDT by Rere Ramos RN) Height and Weight, Clinical Dosing Height Source : Stated Height Entry Format : [place] Height, Feet : 5 ft(Converted to: 152 cm, 60 Inch) Height, Inches : 6 Inch(Converted to: 0 ft 6 Inch, 15.24 cm) Clinical Height : 167.64 cm Weight Source : Bed scale Weight Entry Format : [place]odell Clinical Dosing Weight : 61.82 kg Weight, Pounds : 136 lb Body Surface Area (BSA) : 1.7 m2 Body Mass Index : 22 kg/m2 [place] Body Weight : 59 kg Anita Ko [...] Anita Ko RN - 07/17/2021 19:15 EDT [place] Suicide Severity Rating Scale (C-SSRS) CSSRS Past [...] Apnea Risk Level Score : 3 Anita oK RN - 07/17/2021 19:15 EDT Spiritual/Cultural Needs Any Spiritual/Cultural Needs or Requests : No Anita Ko RN - 07/17/2021 19:15 EDT Valuables and Belongings Valuables and Belongings : Clothing, Personal items Clothing : Common streetwear Clothing Disposition : With patient Personal Items : Cell phone Personal Items Disposition : With patient Anita Ko RN - 07/17/2021 19:15 EDT documented in this encounter Plan of Treatment Not on file documented as of this encounter Visit Diagnoses Not on filedocumented in this encounter Care Teams Distribution System Operator Relationship Specialty Start Date End Date Linh Doty DO [address] [place] [address] PCP - General Family Medicine 11/04/22 Lizzie Alves PA-C [address], [facility] [address] [place] [address] Hospitalist Cardiology 05/27/23 Kaushik Mariscal MD 1401 [facility] [address] [place] [address] Entry Examiner Electrophysiology 11/18/23 documented as of this encounter
--- OUTSIDE RECORDS SUMMARY | 2024-08-23 13:36 | XMS_ITS | Encounter Summary ---
Author Organization [employer] ([place], [place], [place], [place]) Address [address] [place] [address] Care Team Providers Care Tubular Products Fabricator Name Role Phone Lalitha Linhkarthikeyan Mazariegos DO Primary Care Provider [phone] Lizzie Alves PA-C Unavailable [phone] Kaushik Mariscal MD Unavailable Encounter Details Date Type Department Care Team (Late st Contact Info) Description 07/02/2021 Transcribed Document [facility] Family Medicine [address] [place] [address] ProviderChad MD [address] [place] [address] Social History Tobacco Use Types Packs/Day Years Used Date Smoking Tobacco: Never Assessed Family and Community Support Answer Geremias e Recorded Help with Day to Day Activities Not on file 02/27/2023 Feeling Lonely or Isolated Not on file 02/27 Educational Attainment Answer Date Mendez rded Speak language other than Botswanan at home Not on file 02/27/2023 Want [...] Conversion Note - Historical ProviderMD - 07/02/2021 2:02 PM CDT Spiritual Care Short Form Entered On: 07/02/2021 16:00 EDT Performed On: 07/02/2021 14:02 EDT by ROYAL VENTURA Information, Spiritual Care Intervention/Comment/Summary Points : Routine visit with Mr. Chandler and her longtime boyfriend; Provided reflective conversation; Mr. Chandler expressed gratitude for visit ROYAL VENTURA - 07/02/2021 15:57 EDT Electronically signed by Rekha [facility] Conversion Repairer Recreational Vehicle Cerner at 05/27/2022 9:12 PM CDT documented in this encounter Plan of Treatment Not on file documented as of this encounter Visit Diagnoses Not on filedocumented in this encounter Care Teams Tubular Products Fabricator Relationship Specialty Start Date End Date Linh Doty, DO 8 [facility] [address] [place] [address] PCP - General Family Medicine 11/04/22 Lizzie Alves PA-C [address] [place] [address], [facility] [address] [place] [address] Hospitalist Cardiology 05/27/23 Kaushik Mariscal MD 1401 [facility] [address] [place], [place] [address] Tobacco Shaker Electrophysiology 11/18/23 documented as of this encounter
--- OUTSIDE RECORDS SUMMARY | 2024-08-23 13:36 | XMS_ITS | Encounter Summary ---
Author Organization [employer] ([place], [place], [place], [place]) Address [address] [place] [address] Care Team Providers Care Shopping Investigator Name Role Phone Lalitha Linhkarthikeyan Mazariegos DO Primary Care Provider [phone] Lizzie Alves PA-C Unavailable [phone] Dion Mariscal MD Unavailable Encounter Details Date Type Department Care Team (Late st Contact Info) Description 07/02/2021 Transcribed Document [facility] Family Medicine [address] [place] [address] ProviderChad MD [address] [place] [address] Social History Tobacco Use Types Packs/Day Years Used Date Smoking Tobacco: Never Assessed Family and Community Support Answer Geremias e Recorded Help with Day to Day Activities Not on file 02/27/2023 Feeling Lonely or Isolated Not on file 02/27 Educational Attainment Answer Date Mendez rded Speak language other than Angolan at home Not on file 02/27/2023 Want [...] Conversion Note - Historical ProviderMD - 07/02/2021 10:47 AM CDT Patient: LENA MENDOZA Age: 55 years Sex: Female : 1965 Associated Diagnoses: None Author: DION MARISCAL MD-REJI No qualifying data available [facility] Cardiology Discharge Note - EP Primary Bulk System Operator: Pedro Bustamante NP PCP: Linh Doty Consults: [...] Normal range of motion. Integumentary: Warm, Dry, [place]. Pacemaker site stable, dressing CDI, no hematoma or bleeding at site. Neurologic: Alert, Oriented. Psychiatric: Cooperative, Appropriate mood & affect. Telemetry: SR 76 Procedures this admission: Conclusion: Successful Procedure(s) of: 1. SINGLE CHAMBER SYSTEM REPLACEMENT - [facility] Discharge Diagnoses: 1. Successful generator change Discharge [...] BEDTIME 14. Vitamin D (Ergocalciferol) 1.25 MG (20187 UT) Oral Capsule; TAKE ONE CAPSULE BY MOUTH ONCE A WEEK Allergies (1) Active Reaction NKDA Disposition: Patient sent home in stable condition with family support. Discharge Instructions: Cardiac Diet. Post Pacemaker instructions Activity as tolerated. Smoking cessation and risk factor modification addressed. Followup Appointments: PCP in 5 - 7 days. Primary Bulk System Operator in [address] Mariscal in 1 week wound/device check Patient has been instructed on and verbalized an understanding of the above discharge instructions. Plan has been discussed and is in agreement with Dr. Davey Katz, RN documenting for Dr. Mariscal Electronically signed by [facility] Conversion Program Director Scouting Cerner at 05/27/2022 9:21 PM CDT documented in this encounter Plan of Treatment Not on file documented as of this encounter Visit Diagnoses Not on filedocumented in this encounter Care Teams Shopping Investigator Relationship Specialty Start Date End Date Linh Doty, 8 [facility] [address] [place] [address] PCP - General Family Medicine 11/04/22 Lizzie Alves PA-C [address] [place] [address] Hospitalist Cardiology 05/27/23 Dion Mariscal MD [address] [facility] [place] [address] Bulk System Operator Electrophysiology 11/18/23 documented as of this encounter
--- OUTSIDE RECORDS SUMMARY | 2024-08-23 13:36 | XMS_ITS | Encounter Summary ---
Author Organization [employer] ([place], [place], [place], [place]) Address [address] [place] [address] Care Team Providers Care Pipe Wrapping Machine Operator Name Role Phone Lalitha Linhkarthikeyan Mazariegos DO Primary Care Provider [phone] Lizzie Alves PA-C Unavailable [phone] Kaushik Mariscal MD Unavailable Encounter Details Date Type Department Care Team (Late st Contact Info) Description 07/16/2021 Transcribed Document [facility] [place] [address] [place] [address] ProviderChad MD [address] [place] [address] Social History Tobacco Use Types Packs/Day Years Used Date Smoking Tobacco: Never Assessed Family and Community Support Answer Geremias e Recorded Help with Day to Day Activities Not on file 02/27/2023 Feeling Lonely or Isolated Not on file 02/27 Educational Attainment Answer Date Mendez rded Speak language other than Togolese at home Not on file 02/27/2023 Want [...] Performed On: 07/18/2021 11:59 EDT by MARY HUYNH OTR/Delilah General Information, OT Visit Type, OT : [...] : Dx: pacemaker pocket bleeding MARY HUYNH OTR/L - 07/18/2021 13:56 EDT General Status Patient Received Status : Supine in bed Treatment Start Time : 07/18/2021 11:51 EDT Patient Left Status : Supine in bed, RN/PCT informed, All needs met and within reach RN/PCT Informed Comment : SARAH perdomoed evaluation. Treatment End Time : 07/18/2021 11:59 EDT Treatment Time : 8 Minute(s) MARY HUYNH OTR/L - 07/18/2021 13:56 EDT History and Environment, [...] Position : Right, going up MARY HUYNH OTR/L - 07/18/2021 13:56 EDT Prior LOF Bathing, OT : Independent Prior LOF Bed Mobility : Independent Prior LOF Upper Body Dressing, OT : Independent Prior LOF Lower Body Dressing, OT : Independent Prior LOF Toileting : Independent Prior LOF Transfer : Independent Prior LOF Grooming, OT : Independent Prior LOF for IADLs, OT : Independent EMILIE HUYNHQUINN Reddy, OTR/L - 07/18/2021 13:56 EDT Upper Extremity Upper Extremity Dominance : Right Right UE Active ROM : WFL Right UE Strength : WFL Left UE Active ROM : WFL Left UE Strength : WFL Upper Extremity Strength Impaired : MARY Siu, OTR/L - 07/18/2021 13:56 EDT Self Care/Home Management, OT Self Feeding Assist Level, OT : Independent, complete Grooming Assist Level, OT : Independent, complete Bathing Assist Level, OT : Independent, complete Upper Body Dressing Assist Level, OT : Independent, complete Lower Body Dressing Assist Level, OT : Independent, complete Toileting Assist Level : Independent, complete Toilet Transfer Assist Level : Independent, complete AMINA MARY A, OTR/L - 07/18/2021 13:56 EDT Functional Mobility Mobility Grid Supine to Sit : Rehab Complete independence Sit to Stand : Rehab Complete independence Stand to Sit : Rehab Complete independence Sit to Supine : Rehab Complete independence EMILIE HUYNHQUINN Reddy, OTR/L - 07/18/2021 13:56 EDT Cognition Assessment, OT Orientation : Oriented x 4 EMILIE HUYNHQUINN Reddy OTR/L - 07/18/2021 13:56 EDT Indication Assessment, OT Occupational Therapy Indicated : No Occupational Therapy Not Indicated : Independent Interdisciplinary Consultation(s) Needed : EMILIE SiuLEY Maureen OTR/L - 07/18/2021 13:56 EDT Plan of Care, OT OT Tx Plan/Goals Established w Patient : EMILIE SiuLEY Maureen, OTR/L - 07/18/2021 13:56 EDT Treatment Note Subjective [...] Plan for Treatment : Eval only. MARY HUYNH, OTR/L - 07/18/2021 13:56 EDT Pain Assessment Pain Scaled Used : 0-10 Pain scale Pain Score Pre-Intervention : 0 MARY HUYNH, OTR/L - 07/18/2021 13:56 EDT Image 1 - Images currently included in the form version of this document have not been included in the text rendition version of the form. Anticipated Discharge Needs, OT/PT Anticipated Discharge to : Home, independently MARY HUYNH, OTR/L - 07/18/2021 13:56 EDT [place] OT Charges OT Eval Low Complexity : 1 MARY HUYNH OTR/L - 07/18/2021 13:56 EDT Electronically signed by Rekha [facility] Conversion Hydraulic Strainer Operator Cerner at 05/27/2022 9:06 PM CDT documented in this encounter Plan of Treatment Not on file documented as of this encounter Visit Diagnoses Not on filedocumented in this encounter Care Teams Pipe Wrapping Machine Operator Relationship Specialty Start Date End Date Linh Doty, DO [address] [facility] [address] [place] [address] PCP - General Family Medicine 11/04/22 Lizzie Alves PA-C [address] [place] [address], [facility] [address] [place] [address] Hospitalist Cardiology 05/27/23 Kaushik Mariscal MD [address] [facility] [address] [place] [address] Policy Specialist Electrophysiology 11/18/23 documented as of this encounter
--- OUTSIDE RECORDS SUMMARY | 2024-08-23 13:36 | XMS_ITS | Encounter Summary ---
Author Organization [employer] ([place], [place], [place], [place]) Address [address] [place] [address] Care Team Providers Care Postal Carrier Name Role Phone Lalitha Linh Delilah DAVIS Primary Care Provider [phone] Lizzie Alves PA-C Unavailable [phone] Kaushik Mariscal MD Unavailable Encounter Details Date Type Department Care Team (Late st Contact Info) Description 07/23/2021 Transcribed Document [facility] [place] [address] [place] [address] ProviderChad MD [address] [place] [address] Social History Tobacco Use Types Packs/Day Years Used Date Smoking Tobacco: Never Assessed Family and Community Support Answer Geremias e Recorded Help with Day to Day Activities Not on file 02/27/2023 Feeling Lonely or Isolated Not on file 02/27 Educational Attainment Answer Date Mendez rded Speak language other than Irish at home Not on file 02/27/2023 Want [...] Conversion Note - Historical ProviderMD - 07/23/2021 1:15 PM CDT Patient: LENA MENDOZA Age: 55 [...] with bloody drainage. Patient was admitted to [facility] on 07/16/2021. Post generator change, [...] (Rocephin) - 2 Gram, IV Piggyback, Inj, [id number], infuse over 30 Minute(s), Routine DAPTOmycin + Sodium Chloride 0.9% intravenous solution 50 mL - 400 mg, IV Piggyback, Inj, [id number], infuse over 30 Minute(s), Routine Anticoagulant alteplase [...] Last Charted Minimum Maximum Temp 98.2 (JUL 23 10:00) 97.9 (JUL 22:) 98.2 (JUL 22:) Mon HR 71 (JUL 23 10:04) 62 (JUL 23:) 97 (JUL 22 16:) Resp Rate 18 (JUL 23:) 16 (JUL 22 21:00) 18 (JUL 23 06:43) SBP 112 (JUL 23 10:04) 104 (JUL 23:43) 115 (JUL 22 21:00) DBP 69 (JUL 23 10:04) 63 (JUL 22 14:00) 76 (JUL 22 16:00) MAP 80 (JUL 23 10:04) 75 (JUL 23 06:43) 88 (JUL 22 16:00) SpO2 L 92 (JUL 23 08:26) L 92 (MADELEINE 13 16:00) 95 (JUL 14 06:43) General: Alert and oriented, Mild distress. Eye: [...] No tenderness, No deformity. Integumentary: Warm, Dry, Allen, No pallor, No rash, ICD site left [...] (JUL 08) 7.4 (JUL 07) HB 15.2 (MADELEINE 12) H 16.2 [...] 0.90 (MADELEINE 10) 0.90 (MADELEINE 09) 0.80 (JUL 08) Glu R 103 (JUL 12) 101 (MADELEINE 10) 99 (JUL 09) 93 (JUL 08) Ca H 10.3 (JUL 12) H 10.6 (MADELEINE 10) 10.0 (MADELEINE 09) 10.1 (MADELEINE 08) Lactic 1.0 (JUL 07) PT 11.1 (JUL 07) INR 1.0 (JUL 07) AST 24 (JUL 12) 22 (MADELEINE 10) 20 (MADELEINE 09) 23 (JUL 08) ALT 24 (JUL 12) 19 (MADELEINE 10) 21 (MADELEINE 09) 21 (MADELEINE 08) ALK P 106 (JUL 12) 120 (MADELEINE 10) 114 (MADELEINE 09) 122 (JUL 08) T Bili 0.3 (JUL 12) 0.5 (JUL 10) 0.6 (JUL 09) 0.7 (JUL 08) PTN 6.8 (JUL 12) 7.3 (MADELEINE 10) 6.8 (JUL 09) 7.0 (JUL 08) ALB L 2.9 (JUL 12) L 3.2 (JUL 10) L 3.2 (JUL 09) L 3.3 (JUL 08) . Impression and Plan 1. ICD site [...] cannula on 07/17, 07/18, 07/19, 07/20, 07/22. 5. Possible explantation of ICD device 07/24/2021. [...] Weekly PICC dressing changes. Fax orders to [phone], call [phone] with final arrangements. Hold rosuvastatin while on daptomycin to decrease risk of rhabdomyolysis. Arrange for follow-up with me in 1 week post discharge. documented in this encounter Plan of Treatment Not on file documented as of this encounter Visit Diagnoses Not on filedocumented in this encounter Care Teams Postal Carrier Relationship Specialty Start Date End Date Linh Doty DO 8 [facility] [address] [place] [address] PCP - General Family Medicine 11/04/22 Lizzie Alves PA-C [address] [facility], [facility] [address] [place] [address] Hospitalist Cardiology 05/27/23 Kaushik Mariscal MD [address] [facility] [address] [place] [address] African Studies Professor Electrophysiology 11/18/23 documented as of this encounter
--- OUTSIDE RECORDS SUMMARY | 2024-08-23 13:36 | XMS_ITS | Encounter Summary ---
Author Organization [employer] ([place], [place], [place], [place]) Address [address] [place] [address] Care Team Providers Care Advertising Clerk Name Role Phone Lalitha Linhkarthikeyan Mazariegos DO Primary Care Provider Lizzie Alves PA-C Unavailable [phone] Kaushik Mariscal MD Unavailable Encounter Details Date Type Department Care Team (Late st Contact Info) Description 07/16/2021 Transcribed Document [facility] [address] [id number] Yanick Torres MD [address] [place] [address] [place] [address] Social History Tobacco Use Types Packs/Day Years Used Date Smoking Tobacco: Never Assessed Family and Community Support Answer Geremias e Recorded Help with Day to Day Activities Not on file 02/27/2023 Feeling Lonely or Isolated Not on file 02/27 Educational Attainment Answer Date Mendez rded Speak language other than Palauan at home Not on file 02/27/2023 Want [...] 50 mcg inhalation powder: 1 Puff, Inhalation, [id number], rinse mouth and throat after use, 30 [...] 50 mcg inhalation powder 1 Puff, Inhalation, [id number] folic acid 1 mg oral tablet 1 [...] At risk for sleep apnea / IMO [id number] / Confirmed High cholesterol / SNOMED CT 76925564 / Confirmed Canceled: At risk for sleep apnea / IMO [id number] Canceled: COPD (chronic obstructive pulmonary disease) / SNOMED CT 45170093 Canceled: HTN (hypertension) / SNOMED CT 8715929802, Active Problems (12) Arteriosclerosis At risk for sleep apnea Cardiomyopathy Chronic CHF Current smoker Gout High cholesterol History of AL (myocardial infarction) Intermittent claudication Pacemaker PAD (peripheral artery disease) Stented coronary artery Objective VS/Measurements Vitals Signs (last 24 hrs) Last Charted Minimum Maximum Temp 98.0 (JUL 16 12:06) 98.0 (JUL 16 12:06) 98.0 (JUL 16 12:06) Periph HR 78 (JUL 16 12:06) 78 (JUL 16 12:06) 78 (JUL 16 12:06) Resp Rate 20 (JUL 16 12:06) 20 (JUL 16 12:06) 20 (JUL 16 12:06) SBP H 152 (JUL 16 12:06) H 152 (JUL 16 12:06) H 152 (JUL 16 12:06) DBP 84 (JUL 16 12:) 84 (JUL 16 12:06) 84 (JUL 16 12:) SpO2 L 90 (JUL 16 12:) L 90 (JUL 16:) L 90 (JUL 16:) General: No acute distress. Eye: Normal conjunctiva. Neck: No jugular venous distention. Respiratory: Lungs are clear to auscultation, Respirations are non-labored, Breath sounds are equal. Cardiovascular: Regular rhythm, No gallop, S1+ S2 No S3 or S4 Twiggs.. Gastrointestinal: Soft, Non-tender, Non-distended, Normal bowel sounds. [...] filedocumented in this encounter Care Teams Advertising Clerk Relationship Specialty Start Date End Date Linh Doty DO 8 [facility] [address] [place] [address] PCP - General Family Medicine 11/04/22 Lizzie Alves PA-C [address] [place] [address], [facility] [address] [place] [address] Hospitalist Cardiology 05/27/23 Kaushik Mariscal MD [address] [facility] [address] [place] [address] Analytical Data Scientist Electrophysiology 11/18/23 documented as of this encounter
--- OUTSIDE RECORDS SUMMARY | 2024-08-23 13:36 | XMS_ITS | Encounter Summary ---
Author Organization [employer] ([place], [place], [place], [place]) Address [address] [place] [address] Care Team Providers Care Traffic Court Referee Name Role Phone Lalitha Linhkarthikeyan Mazariegos DO Primary Care Provider [phone] Lizzie Alves PA-C Unavailable [phone] Kaushik Mariscal MD Unavailable Encounter Details Date Type Department Care Team (Late st Contact Info) Description 07/25/2021 Transcribed Document [facility] [place] [address] [place] [address] ProviderChad MD [address] [place] [address] Social History Tobacco Use Types Packs/Day Years Used Date Smoking Tobacco: Never Assessed Family and Community Support Answer Geremias e Recorded Help with Day to Day Activities Not on file 02/27/2023 Feeling Lonely or Isolated Not on file 02/27 Educational Attainment Answer Date Mendez rded Speak language other than Afghan at home Not on file 02/27/2023 Want [...] Note - Historical ProviderMD - 07/25/2021 2:00 AM CDT Private Equity Associate Details Entered On: 07/25/2021 0:58 EDT Performed [...] Crushed/Liquid : No Jessica Recinos Lpn - 07/25/2021 0:58 EDT Electronically signed by Rekha [facility] Conversion It Investment/Portfolio Manager Cerner at 05/27/2022 9:09 PM CDT documented in this encounter Plan of Treatment Not on file documented as of this encounter Visit Diagnoses Not on filedocumented in this encounter Care Teams Traffic Court Referee Relationship Specialty Start Date End Date Linh Doty, 8 [facility] [address] [place] [address] PCP - General Family Medicine 11/04/22 Lizzie Alves PA-C [address] [facility], [facility] [address] [place] [address] Hospitalist Cardiology 05/27/23 Kaushik Mariscal MD [address] [facility] [address] [place] [address] Fluorescent Solution Mixer Electrophysiology 11/18/23 documented as of this encounter
--- OUTSIDE RECORDS SUMMARY | 2024-08-23 13:36 | XMS_ITS | Encounter Summary ---
Author Organization [employer] ([place], [place], [place], [place]) Address [address] [place] [address] Care Team Providers Care Social Worker Aide Name Role Phone Lalitha Linhkarthikeyan Mazariegos DO Primary Care Provider [phone] Lizzie Alves PA-C Unavailable [phone] Kaushik Mariscal MD Unavailable Encounter Details Date Type Department Care Team (Late st Contact Info) Description 07/25/2021 Transcribed Document [facility] [place] Family Medicine [address] [place] [address] ProviderChad MD [address] [place] [address] Social History Tobacco Use Types Packs/Day Years Used Date Smoking Tobacco: Never Assessed Family and Community Support Answer Geremias e Recorded Help with Day to Day Activities Not on file 02/27/2023 Feeling Lonely or Isolated Not on file 02/27 Educational Attainment Answer Date Mendez rded Speak language other than Luxembourger at home Not on file 02/27/2023 Want [...] Conversion Note - Historical ProviderMD - 07/25/2021 11:59 AM CDT Meds to Bed Enrollment Entered On: 07/25/2021 11:59 EDT Performed On: 07/25/2021 11:59 EDT by Ronaldo Mccollum, CLASSIFICATION CONTROL CLERK-PHARMACY Meds to Bed Enrollment Patient Enrollment Decision: : Yes/enroll in meds to bed program Ronaldo Mccollum, CLASSIFICATION CONTROL CLERK-PHARMACY - 07/25/2021 11:59 EDT documented in this encounter Plan of Treatment Not on file documented as of this encounter Visit Diagnoses Not on filedocumented in this encounter Care Teams Social Worker Aide Relationship Specialty Start Date End Date Linh Doty, 8 [facility] [address] [place] [address] PCP - General Family Medicine 11/04/22 Lizzie Alves PA-C [address] [place] [address], [facility] [address] [place] [address] Hospitalist Cardiology 05/27/23 Kaushik Mariscal MD [address] [facility] [address] [place] [address] Manager Residential Electrophysiology 11/18/23 documented as of this encounter
--- OUTSIDE RECORDS SUMMARY | 2024-08-23 13:36 | XMS_ITS | Encounter Summary ---
Author Organization [employer] ([place], [place], [place], [place]) Address [address] [place] [address] Care Team Providers Care Flexographic Press Plate Setter Name Role Phone Linh Doty DO Primary Care Provider [phone] Lizzie Alves PA-C Unavailable [phone] Kaushik Mariscal MD Unavailable Encounter Details Date Type Department Care Team (Late st Contact Info) Description 11/23/2018 Transcribed Document [facility] [place] Family [facility] [place] [address] ProviderChad MD [address] [place] [address] Social History Tobacco Use Types Packs/Day Years Used Date Smoking Tobacco: Never Assessed Comments Unknown Sex and Gender Information Value Date Recorded Sex Assigned at Not on file Legal Sex Female 3:27 PM CDT Gender Identity Not on file Sexual Orientation Not on file documented as of this encounter Miscellaneous Notes * Cerner Conversion Note - Historical ProviderMD - 11/23/2018 8:12 AM CDT Event Note Entered On: 11/23/2018 8:12 EDT Performed On: 11/23/2018 8:12 EDT by ELAINE CHOI RN Event Note Event Location : Other: 0812- plt result per lab - 159. pre procedure - informed transporter to cath laband written on lab sheet pre procedure. ELAINE CHOI RN - 11/23/2018 8:12 EDT Electronically signed by Rekha [facility] Conversion Purchasing And Fiscal Clerk Cerner at 05/27/2022 9:25 PM CDT documented in this encounter Plan of Treatment Not on file documented as of this encounter Visit Diagnoses Not on filedocumented in this encounter Care Teams Flexographic Press Plate Setter Relationship Specialty Start Date End Date Linh Doty, 8 [facility] [address] [place] [address] PCP - General Family Medicine 11/04/22 Lizzie Alves PA-C [address] [place] [address], [facility] [address] [place] [address] Hospitalist Cardiology 05/27/23 Kaushik Mariscal MD [address] [facility] [address] [place] [address] Leasing Manager Electrophysiology 11/18/23 documented as of this encounter
--- OUTSIDE RECORDS SUMMARY | 2024-08-23 13:36 | XMS_ITS | Encounter Summary ---
Author Organization [employer] ([place], [place], [place], [place]) Address [address] [place] [address] Care Team Providers Care Brand Marketing Specialist Name Role Phone Lalitha Linhkarthikeyan Mazariegos DO Primary Care Provider [phone] Lizzie Alves PA-C Unavailable [phone] Kaushik Mariscal MD Unavailable Encounter Details Date Type Department Care Team (Late st Contact Info) Description 07/23/2021 Transcribed Document [facility] [place] [address] [place] [address] ProviderChad MD [address] [place] [address] Social History Tobacco Use Types Packs/Day Years Used Date Smoking Tobacco: Never Assessed Family and Community Support Answer Geremias e Recorded Help with Day to Day Activities Not on file 02/27/2023 Feeling Lonely or Isolated Not on file 02/27 Educational Attainment Answer Date Mendez rded Speak language other than Canadian at home Not on file 02/27/2023 Want [...] Historical ProviderMD - 07/23/2021 11:18 PM CDT [facility] Inpatient Documentation Entered On: 07/24/2021 11:06 EDT Performed On: 07/24/2021 9:10 EDT by Kelsea Donovan LPN-DZO-DFY-Ewhyqdfxeke Therapy WOCN Admission Date : Admit Date [...] team consulted to assess coccyx. Wound care steam locomotive firer/fireman at bedside patient on LUIS surface. Family at bedside. Assessment performed and recommendations made for shear and friction and pressure prevention. If any chnages to skin integrity please consult wound care dept. Kelsea Donovan LPN-PVP-JNX-Uzjhzcchdhe Therapy - 07/24/2021 11:04 EDT documented in this encounter Plan of Treatment Not on file documented as of this encounter Visit Diagnoses Not on filedocumented in this encounter Care Teams Brand Marketing Specialist Relationship Specialty Start Date End Date Linh Doty, 8 [facility] [address] [place] [address] PCP - General Family Medicine 11/04/22 Lizzie Alves PA-C [address] [facility], [facility] [address] [place] [address] Hospitalist Cardiology 05/27/23 Kaushik Mariscal MD [address] [facility] [address] [place] [address] Kettle Cleaner Electrophysiology 11/18/23 documented as of this encounter
--- OUTSIDE RECORDS SUMMARY | 2024-08-23 13:36 | XMS_ITS | Encounter Summary ---
Author Organization [employer] ([place], [place], [place], [place]) Address [address] [place] [address] Care Team Providers Care Office Machines Teacher Name Role Phone Lalitha Linhkarthikeyan Mazariegos DO Primary Care Provider [phone] Lizzie Alves PA-C Unavailable [phone] Kaushik Mariscal MD Unavailable Encounter Details Date Type Department Care Team (Late st Contact Info) Description 07/16/2021 Transcribed Document [facility] [place] Family Medicine [address] [place] [address] ProviderChad MD [address] [place] [address] Social History Tobacco Use Types Packs/Day Years Used Date Smoking Tobacco: Never Assessed Family and Community Support Answer Geremias e Recorded Help with Day to Day Activities Not on file 02/27/2023 Feeling Lonely or Isolated Not on file 02/27 Educational Attainment Answer Date Mendez rded Speak language other than Citizen Of [place] at home Not on file 02/27/2023 Want [...] Pacemaker places [address] 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 States 02 run between 88-93. Hx of COPD. Denies SOB/chest pain Triage Date/Time : 07/16/2021 12:06 EDT TYREE CERNA RN - 07/16/2021 12:06 EDT DCP GENERIC CODE Tracking Acuity : 2 - Emergent Tracking Group : [facility] TYREE CERNA RN - 07/16/2021 12:06 [...] Onset Date: Unspecified ; Created By: Contributor_system, Zoodles; Reaction Status: Active ; Category: Drug ; Substance: No Known Allergies ; Type: Allergy ; Updated By: Contributor_system HIST_KarmaloopGRISELDA; Reviewed Date: 10/26/2017 9:51 EDT Diagnosis Control ED (As Of: 07/16/2021 12:12:20 EDT) Problems(Active) Arteriosclerosis (SNOMED CT :666012848 ) Name of Problem: Arteriosclerosis ; Recorder: ELAINE CHOI RN; Confirmation: Confirmed ; Classification: Patient Stated ; Code: 541005050 ; Contributor System: [employer] ; Last Updated: 11/23/2018 8:01 EDT ; Life Cycle Date: 11/23/2018 ; Life Cycle Status: Active ; Vocabulary: SNOMED CT At risk for sleep apnea (IMO :37479019 ) Name of Problem: At risk for sleep apnea ; Recorder: SYSTEM, SYSTEM; Confirmation: Confirmed ; Classification: Medical ; Code: 20428440 ; Last Updated: 07/01/2021 13:02 EDT ; Life Cycle Date: 07/01/2021 ; Life Cycle Status: Active ; Vocabulary: IMO Cardiomyopathy (SNOMED CT :259225480 ) Name of Problem: Cardiomyopathy ; Recorder: Rere Ramos RN; Confirmation: Confirmed ; Classification: Patient Stated ; Code: 922089585 ; Contributor System: [employer] ; Last Updated: 07/01/2021 12:56 EDT ; Life Cycle Date: 07/01/2021 ; Life Cycle Status: Active ; Vocabulary: SNOMED CT Chronic CHF (SNOMED CT :445685966 ) Name of Problem: Chronic CHF ; Recorder: ELAINE CHOI RN; Confirmation: Confirmed ; Classification: Patient Stated ; Code: 668493466 ; Contributor System: [employer] ; Last Updated: 11/23/2018 8:00 EDT ; Life Cycle Date: 11/23/2018 ; Life Cycle Status: Active ; Vocabulary: SNOMED CT Current smoker (SNOMED CT :831114314 ) Name of Problem: Current smoker ; Recorder: ELAINE CHOI RN; Confirmation: Confirmed ; Classification: Patient Stated ; Code: 682040840 ; Contributor System: Power[employer] ; Last Updated: 11/23/2018 8:01 EDT ; Life Cycle Date: 11/23/2018 ; Life Cycle Status: Active ; Vocabulary: SNOMED CT Gout (SNOMED CT :686258732 ) Name of Problem: Gout ; Recorder: Rere Ramos RN; Confirmation: Confirmed ; Classification: Patient Stated ; Code: 906662979 ; Contributor System: Power[employer] ; Last Updated: 07/01/2021 12:57 EDT ; Life Cycle Date: 07/01/2021 ; Life Cycle Status: Active ; Vocabulary: SNOMED CT High cholesterol (SNOMED CT :64108141 ) Name of Problem: High cholesterol ; Recorder: Brandin Conroy RN; Confirmation: Confirmed ; Classification: Medical ; Code: 48836877 ; Contributor System: [employer] ; Last Updated: 06/07/2017 19:00 EDT ; Life Cycle Date: 06/07/2017 ; Life Cycle Status: Active ; Vocabulary: SNOMED CT History of MN (myocardial infarction) (SNOMED CT :5311849782 ) Name of Problem: History of MN (myocardial infarction) ; Recorder: Rere Ramos RN; Confirmation: Confirmed ; Classification: Patient Stated ; Code: 5809365277 ; Contributor System: Power[employer] ; Last Updated: 07/01/2021 12:56 EDT ; Life Cycle Date: 07/01/2021 ; Life Cycle Status: Active ; Vocabulary: SNOMED CT Intermittent claudication (SNOMED CT :270094641 ) Name of Problem: Intermittent claudication ; Recorder: ELAINE CHOI RN; Confirmation: Confirmed ; Classification: Patient Stated ; Code: 064576162 ; Contributor System: Power[employer] ; Last Updated: 11/23/2018 8:03 EDT ; Life Cycle Date: 11/23/2018 ; Life Cycle Status: Active ; Vocabulary: SNOMED CT Pacemaker (SNOMED CT :5852722756 ) Name of Problem: Pacemaker ; Recorder: Rere Ramos RN; Confirmation: Confirmed ; Classification: Patient Stated ; Code: 2909775057 ; Contributor System: Levels Beyond[employer] ; Last Updated: 07/01/2021 12:57 EDT ; Life Cycle Date: 07/01/2021 ; Life Cycle Status: Active ; Vocabulary: SNOMED CT PAD (peripheral artery disease) (SNOMED CT :0075647463 ) Name of Problem: PAD (peripheral artery disease) ; Recorder: ELAINE CHOI RN; Confirmation: Confirmed ; Classification: Patient Stated ; Code: 8769054763 ; Contributor System: [employer] ; Last Updated: 11/23/2018 8:00 EDT ; Life Cycle Date: 11/23/2018 ; Life Cycle Status: Active ; Vocabulary: SNOMED CT Stented coronary artery (SNOMED CT :0141758718 ) Name of Problem: Stented coronary artery ; Recorder: Rere Ramos RN; Confirmation: Confirmed ; Classification: Patient Stated ; Code: 4863937222 ; Contributor System: Levels Beyond[employer] ; Last Updated: 07/01/2021 12:57 EDT ; Life Cycle Date: 07/01/2021 ; Life Cycle Status: Active ; Vocabulary: SNOMED CT Diagnoses(Active) Cardiac device problem Date: 07/16/2021 ; Diagnosis Type: Reason For Visit ; Confirmation: Complaint of ; Clinical Dx: Cardiac device problem ; Classification: Medical ; Clinical Service: Emergency medicine ; Code: PNED ; Probability: 0 ; Diagnosis Code: [id number] ED Height and Weight Height Source : Stated Height Entry Format : Sherman Height, Feet : 5 ft(Converted to: 152 cm, 60 Inch) Height, Inches : 6 Inch(Converted to: 0 ft 6 Inch, 15.24 cm) Clinical Height : 167.64 cm Weight Source, ED : Critical estimated dosing weight Weight Entry Format : Sherman Weight, Pounds : 136 lb Clinical Dosing Weight : 61.82 kg Body Surface Area (BSA) : 1.7 m2 Body Mass Index : 22 kg/m2 Louisa Body Weight (IBW) : 58.88 kg TYREE CERNA RN - 07/16/2021 12:06 EDT Electronically signed by Reyna Da Silva Conversion Staff Development Coordinator Rn Cerner at 05/27/2022 9:09 PM CDT documented in this encounter Plan of Treatment Not on file documented as of this encounter Visit Diagnoses Not on filedocumented in this encounter Care Teams Office Machines Teacher Relationship Specialty Start Date End Date Linh Doty, [address] [facility] [address] [place] [address] PCP - General Family Medicine 11/04/22 Lizzie Alves PA-C [address] [place] [address], [facility] [address] [place] [address] Hospitalist Cardiology 05/27/23 Kaushik Mariscal MD [address] [facility] [address] [place] [address] Stem Dryer Maintainer Electrophysiology 11/18/23 documented as of this encounter
--- OUTSIDE RECORDS SUMMARY | 2024-08-23 13:36 | XMS_ITS | Encounter Summary ---
Author Organization [employer] ([place], [place], [place], [place]) Address [address] [place] [address] Care Team Providers Care First Aid Nurse Name Role Phone Lalitha Linhkarthikeyan Mazariegos DO Primary Care Provider [phone] Lizzie Alves PA-C Unavailable [phone] Kaushik Mariscal MD Unavailable Encounter Details Date Type Department Care Team (Late st Contact Info) Description 07/16/2021 Transcribed Document [facility] [address] [place] [address] ProviderChad MD [address] [place] [address] Social History Tobacco Use Types Packs/Day [...] Conversion Note - Historical ProviderMD - 07/16/2021 2:49 PM CDT Pain [...] 07/23/2021 18:55 EDT Electronically signed by Rekha [facility] Conversion Artificial Flowers Dyer Cerner at 05/30/2022 9:20 AM CDT documented in this encounter Plan of Treatment Not on file documented as of this encounter Visit Diagnoses Not on filedocumented in this encounter Care Teams First Aid Nurse Relationship Specialty Start Date End Date Linh Doty, DO [address] [facility] [address] [place] [address] PCP - General Family Medicine 11/04/22 Lizzie Alves PA-C [address] [place] [address], [facility] [address] [place] [address] Hospitalist Cardiology 05/27/23 Kaushik Mariscal MD [address] [facility] [address] [place] [address] Kettleman Electrophysiology 11/18/23 documented as of this encounter
--- OUTSIDE RECORDS SUMMARY | 2024-08-23 13:36 | XMS_ITS | Encounter Summary ---
Author Organization [employer] ([place], [place], [place], [place]) Address [address] [place] [address] Care Team Providers Care Time Recorder Name Role Phone Linh Doty DO Primary Care Provider Lizzie Alves PA-C Unavailable [phone] Kaushik Mariscal MD Unavailable Reason for Visit * Reason Comments Medication Refill Encounter Details Date Type Department Care Team (Late st Contact Info) Description 05/25/[address] 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
--- OUTSIDE RECORDS SUMMARY | 2024-08-23 13:36 | XMS_ITS | Encounter Summary ---
Author Organization [employer] ([place], [place], [place], [place]) Address [address] [place] [address] Care Team Providers Care Cafeteria Server Name Role Phone Lalitha Linhkarthikeyan Mazariegos DO Primary Care Provider [phone] Lizzie Alves PA-C Unavailable [phone] Kaushik Mariscal MD Unavailable Encounter Details Date Type Department Care Team (Late st Contact Info) Description 07/29/2021 Transcribed Document [facility] [place] Medicine [address] [place] [address] ProviderChad MD [address] [place] [address] Social History Tobacco Use Types [...] Cerner Conversion Note - Historical ProviderMD - 07/29/2021 3:50 PM CDT UM Authorization Entered On: 07/29/2021 15:51 EDT Performed On: 07/29/2021 15:50 EDT by Bonita Katz, Automated Logistics Specialist Primary Insurance Authorization Authorization and Policy Numbers : Insurance 1 Health Plan: [employer] Policy Number: [id number] Authorization Number: Insurance Primary Name : [employer] Policy Number: [id number] Authorization Status-Primary : Admit approved Auth/Referral Contact Name-Primary : DC Reference Number-Primary : [id number] Authorization Number-Primary : [id number] Number of Days Authorized-Primary : 5 Day(s) Authorized Service Begin Date-Primary : 07/16/2021 EDT Authorized Service End Date-Primary : 07/21/2021 EDT Authorization Comments-Primary : Discharge summary as well as continued stay clinical 07/23 - discharge faxed. Historical Authorization Comments-Primary : Comment 1: 07/20-07/22 CLINICALS FAXED VIA [employer] (Yessi Alaniz, RN 07/22/2021 16:49) Comment 2: PER PORTAL IP APPROVED FOR 07/16 UP TO BUT NOT INCLUDING 07/22 (Khushi Jones, Rn-Utilization Review 07/19/2021 13:56) Comment 3: UNDER REVIEW PER PORTAL (Khushi Jones, Rn-Utilization Review 07/19/2021 09:22) Comment 4: CLINICAL FAXED VIA [employer] (Khushi Jones, Rn-Utilization Review 07/17/2021 15:22) Comment 5: REF# PER GUME. CLINICAL FAXED VIA [employer] (Khushi Jones, Rn-Utilization Review 07/17/2021 15:17) Boniat Katz, Automated Logistics Specialist - 07/29/2021 15:50 EDT documented in this encounter Plan of Treatment Not on file documented as of this encounter Visit Diagnoses Not on filedocumented in this encounter Care Teams Cafeteria Server Relationship Specialty Start Date End Date Linh Doty, DO [address] [place] [address] PCP - General Family Medicine 11/04/22 Lizzie Alves PA-C [address] [place] [address], [facility] [address] [place] [address] Hospitalist Cardiology 05/27/23 Kaushik Mariscal MD [address] [facility] [address] [place] [address] Campus Administrative Assistant Electrophysiology 11/18/23 documented as of this encounter
--- OUTSIDE RECORDS SUMMARY | 2024-08-23 13:36 | XMS_ITS | Encounter Summary ---
Author Organization [employer] ([place], [place], [place], [place]) Address [address] [place] [address] Care Team Providers Care Triple Valve Tester Name Role Phone Lalitha Linhkarthikeyan Mazariegos DO Primary Care Provider [phone] Lizzie Alves PA-C Unavailable [phone] Kaushik Mariscal MD Unavailable Encounter Details Date Type Department Care Team (Late st Contact Info) Description 07/16/2021 Transcribed Document [facility] Family Medicine [address] [place] [address] ProviderChad MD [address] [place] [address] Social History Tobacco Use Types Packs/Day [...] on filedocumented in this encounter Care Teams Triple Valve Tester Relationship Specialty Start Date End Date Linh Doty, DO [address] [facility] [address] [place] [address] PCP - General Family Medicine 11/04/22 Lizzie Alves PA-C [address] [place] [address], [facility] [address] [place] [address] Hospitalist Cardiology 05/27/23 Kaushik Mariscal MD [address] [facility] [address] [place] [address] Biodiesel Process Control Technician Electrophysiology 11/18/23 documented as of this encounter
--- OUTSIDE RECORDS SUMMARY | 2024-08-23 13:36 | XMS_ITS | Encounter Summary ---
Author Organization [employer] ([place], [place], [place], [place]) Address [address] [place] [address] Care Team Providers Care Volcanology Teacher Name Role Phone Lalitha Linhkarthikeyan Mazariegos DO Primary Care Provider [phone] Lizize Alves PA-C Unavailable [phone] Dion Lin MD Unavailable Encounter Details Date Type Department Care Team (Late st Contact Info) Description 07/25/2021 Transcribed Document [facility] Family Medicine [address] [place] [address] ProviderChad MD [address] [place] [address] Social History Tobacco Use Types Packs/Day Years Used Date Smoking Tobacco: Never Assessed Family and Community Support Answer Geremias e Recorded Help with Day to Day Activities Not on file 02/27/2023 Feeling Lonely or Isolated Not on file 02/27 Educational Attainment Answer Date Mendez rded Speak language other than Guinean at home Not on file 02/27/2023 Want [...] Conversion Note - Historical ProviderMD - 07/25/2021 11:57 AM CDT Patient: LENA MENDOZA Age: 55 Years Sex: Female : 1965 Admit Date 07/16/2021 14:13 Discharge Date 07/25/21 Primary Care Provider LINH WILLIAM, [facility] Discharge Diagnosis AICD pocket hematoma 07/16/2021 T82.837A [...] episode of bleeding. She was taken to laborer/key man and the ICD was removed. She tolerated [...] BID fluticasone 50 mcg/inh nasal spray 2 [place], PRN, Nasal, Daily folic acid 1 mg [...] Oral, Daily Rocephin 2 Gram, IV Piggyback, L83EEit topiramate 25 mg oral tablet 25 mg = 1 Tab, Oral, At Bedtime Vitamin D2 1.25 mg (50,000 intl units) oral capsule 50,000 Int Units = 1 Cap, Oral, Weekly Code Status Start: 07/16/21 14:19:00 EDT, Full Code, Continuous Order Condition on Discharge Improved Consulting Physicians REYNALDO CURIEL MD-INT DION LIN MD-CAR PIERCY, ELIZABETH A, MD-INF - Possible infected pacemaker site HANANE WILSON MD-INF MIRELLA [place] MD-CAR SAAD, MARINA, MD [place], ALEXX BROWN MD-ANS APRYL SPAIN MD-ANS AUNDREA ROGERS MD-ANS Current Diet Order Diet, Adult - [...] CR Chest 1 Vw Port; Jasbir Simon, Stock Selector 07/16/2021 13:03 EDT [2] Operative Report; ABBE HOLLEY MD-CAR 07/24/2021 14:30 EDT [3] ECHO REPORT - [facility]; CONTRIBUTOR_SYSTEM, [employer] 07/17/2021 08:04 EDT Electronically signed by [facility] Conversion Unit Aide Cerner at 05/27/2022 9:02 PM CDT documented in this encounter Plan of Treatment Not on file documented as of this encounter Visit Diagnoses Not on filedocumented in this encounter Care Teams Volcanology Teacher Relationship Specialty Start Date End Date Linh William, DO [address] [place] [address] PCP - General Family Medicine 11/04/22 Lizzie Alves PA-C [address] [place] [place] [address] Hospitalist Cardiology 05/27/23 Dion Lin MD [address] [facility] [place] [address] Poising Inspector Electrophysiology 11/18/23 documented as of this encounter
--- OUTSIDE RECORDS SUMMARY | 2024-08-23 13:36 | XMS_ITS | Encounter Summary ---
Author Organization [employer] ([place], [place], [place], [place]) Address [address] [place] [address] Care Team Providers Care Record Clerk Salesperson Name Role Phone Linh Doty DO Primary Care Provider Lizzie Alves PA-C Unavailable [phone] Kaushik Mariscal MD Unavailable Reason for Visit * Reason Comments Medication Refill Encounter Details Date Type Department Care Team (Late st Contact Info) Description 04/25/2023 Refill [facility] Cardiology [address] [place] [address] Lenka Benavidez MD [address] [facility] [address] [place] [address] 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; Personal history [...] Date Mendez rded Speak language other than Slovenian at home Not on file 02/27/2023 Want [...] Visit Diagnoses Diagnosis 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
--- OUTSIDE RECORDS SUMMARY | 2024-08-23 13:36 | XMS_ITS | Encounter Summary ---
Author Organization [employer] ([place], [place], [place], [place]) Address [address] [place] [address] Care Team Providers Care Hand Launderer Name Role Phone Lalitha Linhkarthikeyan Mazariegos DO Primary Care Provider [phone] Lizzie Alves PA-C Unavailable [phone] Kaushik Mariscal MD Unavailable Encounter Details Date Type Department Care Team (Late st Contact Info) Description 07/25/2021 Transcribed Document [facility] Family Medicine [address] [place] [address] ProviderChad MD [address] [place] [address] Social History Tobacco Use Types Packs/Day Years Used Date Smoking Tobacco: Never Assessed Family and Community Support Answer Geremias e Recorded Help with Day to Day Activities Not on file 02/27/2023 Feeling Lonely or Isolated Not on file 02/27 Educational Attainment Answer Date Mendez rded Speak language other than Gabonese at home Not on file 02/27/2023 Want [...] Conversion Note - Historical ProviderMD - 07/25/2021 5:00 AM CDT Chart [...] filedocumented in this encounter Care Teams Hand Launderer Relationship Specialty Start Date End Date Linh Doty, [address] [facility] [address] [place] [address] PCP - General Family Medicine 11/04/22 Lizzie Alves PA-C [address] [facility] [address] [place] [address] Hospitalist Cardiology 05/27/23 Kaushik Mariscal MD [address] [facility] [address] [place] [address] Electrical Systems Drafter Electrophysiology 11/18/23 documented as of this encounter
--- OUTSIDE RECORDS SUMMARY | 2024-08-23 13:36 | XMS_ITS | Encounter Summary ---
Author Organization [employer] ([place], [place], [place], [place]) Address [address] [place] [address] Care Team Providers Care Ladle Repairer Name Role Phone Lalitha Linhkarthikeyan Mazariegos DO Primary Care Provider [phone] Lizzie Alves PA-C Unavailable [phone] Dion Lin MD Unavailable Encounter Details Date Type Department Care Team (Late st Contact Info) Description 07/25/2021 Transcribed Document [facility] Family Medicine [address] [place] [address] ProviderChad MD [address] [place] [address] Social History Tobacco Use Types Packs/Day Years Used Date Smoking Tobacco: Never Assessed Family and Community Support Answer Geremias e Recorded Help with Day to Day Activities Not on file 02/27/2023 Feeling Lonely or Isolated Not on file 02/27 Educational Attainment Answer Date Mendez rded Speak language other than Mauritian at home Not on file 02/27/2023 Want [...] Conversion Note - Historical ProviderMD - 07/25/2021 2:36 PM CDT [facility] [place] [address] REJI LENA Begum :1965 Visit Time:07/16/2021 Your Visit Summary Your Care Team Admitting Physician - REYNALDO CURIEL MD-INT Attending Physician - REYNALDO CURIEL MD-INT Primary Care Physician - LINH WILLIAM DO-FAM Referring Physician - FAUSTINO, SELF REFERRED Your [...] Bring discharge instructions with you Where: [address] [facility] [address] [place] [address]- Business (1) Follow Up with LINH WILLIAM DO-FAM When 08/01/2021 02:00 PM EDT Comments Primary care appointment has been made Bring discharge instructions with you Where: [address] [address]- Follow Up with HANANE WILSON MD-INF When 07/31/2021 02:30 PM EDT Comments Infectious disease appointment has been made Bring discharge instructions with you Where: [address] [facility] [address] [place] [address]- Follow Up with ABBE HOLLEY When 07/30/2021 10:15 AM EDT Comments Cardiology appointment has been made Bring discharge instructions with you Where: [address] [place] [address] [phone] Business (1) Medications What How Much When Instructions Next Dose cefdinir (cefdinir 300 mg oral capsule) 1 Capsule(s) Oral Every 12 hours Duration: 7 Day(s) Pickup at [facility] doxycycline (doxycycline hyclate 100 mg oral capsule) 1 Capsule(s) Oral Two Times A Day Duration: 21 Day(s) Pickup at [facility] nicotine (nicotine 21 mg/ 24 hr transdermal film, extended release) 1 Patch(es) TransDermal Every Day Duration: 14 Day(s) Pickup at [facility][1] tomorrow saccharomyces boulardii lyo (Florastor 250 mg oral capsule) 1 Capsule(s) Oral Two Times A Day This medication is available hbor-oam-glfolnn. tonight acetaminophen-hydrocodone (acetaminophen-HYDROcodone 325 mg-5 mg oral tablet) 1 Tablet(s) Oral Every 8 Hours as needed for for pain as needed gabapentin (gabapentin 600 mg oral tablet) 1 Tablet(s) Oral Three Times A Day tonight rosuvastatin (Crestor 10 mg oral tablet) 1 Tablet(s) Oral Every Day tomorrow carvedilol (carvedilol 12.5 mg oral tablet) 1 Tablet(s) Oral Two Times A Day [facility] ergocalciferol (Vitamin D2 1.25 mg (50,000 intl units) oral capsule) 1 Capsule(s) Oral Weekly per routine fluticasone nasal (fluticasone 50 mcg/ inh nasal spray) 2 Pandora(s) Nasal Every Day as needed for Nasal [...] Tablet(s) Oral At Bedtime bedtime Pharmacy Information [facility] [place]: [address] [place], [place] [id number] [phone] Take your medications faithfully. Do NOT skip [...] ham, luncheon meats, hot dogs, canned meats, [place] sausage --Limit meat portions to no more [...] white, wheat or rye breads, plain breadsticks, kazakh muffins, hamburger buns, plain bagels, plain cake doughnuts, tru breads, baked flours or corn tortillas, crackers including gerber, animal, saltine, oyster and matzo, snacks including unsalted pretzels, popcorn, baked tortilla chips or potato chips. Homemade breads (biscuits, muffins, cornbread, rolls, pancakes and nigerien toast) should be made with oils low [...] choose prepared products such as muffins, frozen nigerien toast and waffles, biscuits, croissants and other [...] 5 large olives is considered a serving. --[place] oil and peanut oil are higher in [...] diet, please call the registered dietitians at [facility] at or . We will be [...] sugar-free varieties to be more thirst quenching. --[place] your teeth. --Chill mouthwash and gargle for [...] at home: Medicines ??? Take or apply znzy-rge-osurrlu and prescription medicines only as told by [...] cannot use soap and water, use hand drilling field specialist. ? Change your bandage as told by [...] provider. Document Revised: 09/07/2018 Document Reviewed: 09/07/2018 ElseAdviqo Patient Education ?? 202 [employer] Hematoma A hematoma is a collection [...] by your doctor. General instructions ??? Take icli-mjp-dzgkbkw and prescription medicines only as told by [...] provider. Document Revised: 07/01/2018 Document Reviewed: 07/01/2018 [employer]ingabus.[employer] Patient Education ?? 2020 [employer] Steps to Quit Smoking Smoking tobacco [...] a prescription and some you can purchase oazu-rnq-kudmeju. Medicines may have nicotine in them to [...] for support and encouragement. Call telephone quitlines (9-698-KFHN-NOW), reach out to support groups, or work [...] provider. Document Revised: 10/21/2019 Document Reviewed: 04/16/2019 [employer]ing[employer] Patient Education ?? 2020 [employer] Steps to Quit Smoking Smoking tobacco [...] a prescription, and some you can buy jfzg-yoq-hpqnjlq. Some medicines may contain a drug called [...] encourage you. ??? Call a phone quitline (3-552-TIVCNOW), reach out to support groups, or work [...] provider. Document Revised: 10/21/2019 Document Reviewed: 04/16/2019 [employer]ingabus.[employer] Patient Education ?? 2020 Fl[employer]aste. Antibiotic Medicine, Adult Antibiotic medicines treat infections [...] Follow these instructions at home: ??? Take wlnj-nwz-gkipmhq and prescription medicines as told by your [...] provider. Document Revised: 11/15/2019 Document Reviewed: 11/15/2019 ElseAdviqo Patient Education ?? 202 [employer] Inc. Infection Prevention in the Home If you [...] Supplies needed: ??? Soap. ??? Alcohol-based hand drilling field specialist. ??? Standard cleaning products. ??? Disinfectants, such [...] water are not available, use alcohol-based hand drilling field specialist. ??? Avoid touching your face, mouth, nose, [...] water. Air-dry your dishes or use a blood bank technician. ??? Do not share dishes or eating [...] certain germs and not others. Read the corporate travel manager's instructions or read online resources to determine [...] minutes after each use, or according to corporate travel manager's instructions. ??? Wash reusable cleaning cloths and [...] water are not available, use alcohol-based hand drilling field specialist. In general: ??? Stay home except to [...] for Professionals in Infection Control and Epidemiology: professionals.site.apic.org/ozfqcort-zj-ulpi/fhb-lmcadazhmk-upgoedj/home/ Summary ??? It is important to know [...] provider. Document Revised: 04/02/2020 Document Reviewed: 04/22/2019 Booking[employer] Patient Education ?? 2020 [employer] doxycycline (oral/injection) (DOX romain gallo) Acticlate, Adoxa, [...] or graying of the teeth in children Electronically signed by Rekha [facility] Conversion Pin Sticker Cerner at 05/27/2022 9:26 PM CDT documented in this encounter Plan of Treatment Not on file documented as of this encounter Visit Diagnoses Not on filedocumented in this encounter Care Teams Ladle Repairer Relationship Specialty Start Date End Date Linh William, DO [address] [facility] [address] [place] [address] PCP - General Family Medicine 11/04/22 Lizzie Alves PA-C [address] [place] [address], [facility] [address] [place] [address] Hospitalist Cardiology 05/27/23 Dion Lin MD [address] [facility] [address] [place] [address] Operating Room Surgical Technologist Electrophysiology 11/18/23 documented as of this encounter
--- OUTSIDE RECORDS SUMMARY | 2024-08-23 13:37 | XMS_ITS | Encounter Summary ---
Author Organization [employer] ([place], [place], [place], [place]) Address [address] [place] [address] Care Team Providers Care Manager Life Name Role Phone Lalitha Linhkarthikeyan Mazariegos DO Primary Care Provider [phone] Lizzie Alves PA-C Unavailable [phone] Kaushik Mariscal MD Unavailable Encounter Details Date Type Department Care Team (Late st Contact Info) Description 07/25/2021 Transcribed Document [facility] [place] [address] [place] [address] ProviderChad MD [address] [place] [address] Social History Tobacco Use Types Packs/Day Years Used Date Smoking Tobacco: Never Assessed Family and Community Support Answer Geremias e Recorded Help with Day to Day Activities Not on file 02/27/2023 Feeling Lonely or Isolated Not on file 02/27 Educational Attainment Answer Date Mendez rded Speak language other than Citizen [place] at home Not on file 02/27/2023 Want [...] Conversion Note - Historical ProviderMD - 07/25/2021 5:30 PM CDT Nursing Discharge Summary Entered On: 07/25/2021 16:09 EDT Performed On: 07/25/2021 17:30 EDT by Caryl Estrada RN-[employer] Discharge Documentation Discharge Date/Time : 07/25/2021 17:30 [...] activity and follow up appointment Caryl Estrada RN-[employer] - 07/25/2021 16:08 EDT Electronically signed by Rekha [facility] Conversion Chemical Worker Cerner at 05/27/2022 9:01 PM CDT documented in this encounter Plan of Treatment Not on file documented as of this encounter Visit Diagnoses Not on filedocumented in this encounter Care Teams Manager Life Relationship Specialty Start Date End Date Linh Doty, DO [address] [facility] [address] [place] [address] PCP - General Family Medicine 11/04/22 Lizzie Alves PA-C [address] [facility] [address] [place] [address] Hospitalist Cardiology 05/27/23 Kaushik Mariscal MD [address] [facility] [address] [place], [place] [id number] Scroll Machine Operator Electrophysiology 11/18/23 documented as of this encounter
--- OUTSIDE RECORDS SUMMARY | 2024-08-23 13:37 | XMS_ITS | Encounter Summary ---
Author Organization [employer] ([place], [place], [place], [place]) Address [address] [place] [address] Care Team Providers Care Shut Off Worker Name Role Phone Lalitha Linhkarthikeyan Mazariegos DO Primary Care Provider Lizzie Alves PA-C Unavailable [phone] Dion Mariscal MD Unavailable Encounter Details Date Type Department Care Team (Late st Contact Info) Description 07/02/2021 Transcribed Document [facility] Family Medicine [address] [place] [address] ProviderChad MD [address] [place] [address] Social History Tobacco Use Types Packs/Day [...] Conversion Note - Historical ProviderMD - 07/02/2021 2:55 PM CDT [place] [address] LENA MENDOZA :1965 Visit Time:07/01/2021 Your Visit Summary Your Care Team Admitting Physician - DION MARISCAL MD-CAR Attending Physician - DION MARISCAL MD-CAR Primary Care Physician - LINH WILLIAM DO-FAM Referring Physician - LINH WILLIAM DO-FAM Your [...] Comments wound device check Where: [address] [facility] [address] [place] [address]- Business (1) Follow Up with LINH WILLIAM DO-FAM When Within 2 to 3 days Comments left message for Dr William office to call pt with appt time. They were out for lunch Where: [address] [place] [address]- Medications What How Much When Instructions Next Dose acetaminophen-hydrocodone (acetaminophen-HYDROcodone 325 mg-5 mg oral tablet) 120 Each, TAKE ONE TABLET BY MOUTH EVERY 6 HOURS MAY CAUSE DROWSINESS cephalexin (Keflex 500 mg oral capsule) 1 Capsule(s) Oral Every 8 Hours Duration: 7 Day(s) [facility] [place] clopidogrel (Plavix 75 mg oral tablet) 1 [...] 1 Tablet(s) Oral At Bedtime Pharmacy Information [facility] [place]: [address] [facility] [address] [place], [place] [id number] [phone] Take your medications faithfully. Do NOT skip [...] Keep items that you use often in nupz-kl-mavdx places. Lower the shelves around your home [...] the way. ??? Do not use floor portuguese or wax that makes floors slippery. What [...] Control and Prevention, [place]AD[place]: www.cdc.gov ??? National [place] on Aging: www.delia.nih.gov Contact a doctor if: [...] provider. Document Revised: 08/29/2020 Document Reviewed: 08/29/2020 Tiltap Patient Education ?? 2020 [employer] Inc. Sleep Apnea Sleep apnea affects breathing during [...] ask your doctor. General instructions ??? Take mkav-xxk-ftxneez and prescription medicines only as told by [...] these instructions at home: Medicines ??? Take dtzz-ish-vqtutbp and prescription medicines only as told by [...] and water are not available, use hand resident care associate. ? Change your dressing as told by [...] your chest for several days. ??? Take cark-xib-ihdluik and prescription medicines only as told by [...] provider. Document Revised: 12/27/2018 Document Reviewed: 12/27/2018 ElseGranite Technologies Patient Education ?? 2020 SurePeak. Emergency Awareness and Preventative Care STROKE is [...] Assistance with quitting is available by contacting 5-210-QXLG-NOW. This is a free resource providing counseling, [...] range between ( 0.0 and 7.0 ) Candler #: 0.57 K/uL -- Normal range between ( 0.16 and 1.00 ) Eos #: 0.05 x10(3)/uL -- Normal range between ( 0.00 and 0.80 ) Candler %: 6.9 % -- Normal range between [...] Chest 1 Vw Portable Patient Name:LENA MENDOZA Shy I have received and understand this information and was given the opportunity to ask questions. Patient/Distance Learning Coordinator Name: Patient/Distance Learning Coordinator Signature: Relationship to Patient: Clinician/Hospital Distance Learning Coordinator Signature: Date: documented in this encounter Plan of Treatment Not on file documented as of this encounter Visit Diagnoses Not on filedocumented in this encounter Care Teams Shut Off Worker Relationship Specialty Start Date End Date Linh William, DO [address] [facility] [address] [place] [address] PCP - General Family Medicine 11/04/22 Lizzie Alves PA-C [address] [place] [address], [facility] [address] [place] [address] Hospitalist Cardiology 05/27/23 Dion Mariscal MD [address] [facility] [address] [place] [address] Interlocking Installer Electrophysiology 11/18/23 documented as of this encounter
--- OUTSIDE RECORDS SUMMARY | 2024-08-23 13:37 | XMS_ITS | Encounter Summary ---
Author Organization [employer] ([place], [place], [place], [place]) Address [address] [place] [address] Care Team Providers Care Clinical Data Coordinator Name Role Phone Lalitha Linhkarthikeyan Mazariegos DO Primary Care Provider [phone] Lizzie Alves PA-C Unavailable [phone] Kaushik Mariscal MD Unavailable Encounter Details Date Type Department Care Team (Late st Contact Info) Description 07/25/2021 Transcribed Document [facility] [place] [address] [place] [address] ProviderChad MD [address] [place] [address] Social History Tobacco Use Types Packs/Day Years Used Date Smoking Tobacco: Never Assessed Family and Community Support Answer Geremias e Recorded Help with Day to Day Activities Not on file 02/27/2023 Feeling Lonely or Isolated Not on file 02/27 Educational Attainment Answer Date Mendez rded Speak language other than Guamanian at home Not on file 02/27/2023 Want [...] Conversion Note - Historical ProviderMD - 07/25/2021 2:31 PM CDT Patient Education [...] ham, luncheon meats, hot dogs, canned meats, [place] sausage --Limit meat portions to no more [...] choose to broil, bake, roast, grill or stir-jsoeph rather than frying. -Remove poultry skin before [...] breads (biscuits, muffins, cornbread, rolls, pancakes and divehi toast) should be made with oils low [...] choose prepared products such as muffins, frozen divehi toast and waffles, biscuits, croissants and other [...] 5 large olives is considered a serving. --[place] oil and peanut oil are higher in [...] please call the registered dietitians at [facility] at or . We will [...] sugar-free varieties to be more thirst quenching. --[place] your teeth. --Chill mouthwash and gargle for [...] by your doctor. General instructions ??? Take swdk-fbx-zibnskw and prescription medicines only as told by [...] provider. Document Revised: 07/01/2018 Document Reviewed: 07/01/2018 Skipo Patient Education ? 2020 Integrated Systems Inc.. Infectious Disease Wound Infection A wound infection [...] at home: Medicines ??? Take or apply lnls-qcs-asytfvh and prescription medicines only as told by [...] cannot use soap and water, use hand corporate pilot. ? Change your bandage as told by [...] provider. Document Revised: 09/07/2018 Document Reviewed: 09/07/2018 [employer]o Patient Education ? 2020 [employer].. Infection Prevention in the Home If you [...] Supplies needed: ??? Soap. ??? Alcohol-based hand corporate pilot. ??? Standard cleaning products. ??? Disinfectants, such [...] water are not available, use alcohol-based hand corporate pilot. ??? Avoid touching your face, mouth, nose, [...] water. Air-dry your dishes or use a research project coordinator. ??? Do not share dishes or eating [...] certain germs and not others. Read the cigarette tipper's instructions or read online resources to determine [...] minutes after each use, or according to cigarette tipper's instructions. ??? Wash reusable cleaning cloths and [...] water are not available, use alcohol-based hand corporate pilot. In general: ??? Stay home except to [...] for Professionals in Infection Control and Epidemiology: professionals.site.apic.org/tyyjqcqj-ki-yktt/udy-cvtldecmqx-idaeibw/home/ Summary ??? It is important to know [...] provider. Document Revised: 04/02/2020 Document Reviewed: 04/22/2019 [employer]o Patient Education ? 2020 Integrated Systems Inc.. Pharmacology Antibiotic Medicine, Adult Antibiotic medicines treat [...] Follow these instructions at home: ??? Take ochr-qcv-jxsnufg and prescription medicines as told by your [...] provider. Document Revised: 11/15/2019 Document Reviewed: 11/15/2019 Skipo Patient Education ? 2020 [employer]o Inc. Pulmonary Medicine Steps to Quit Smoking Smoking [...] a prescription and some you can purchase vlmx-kbc-xskiczx. Medicines may have nicotine in them to [...] for support and encouragement. Call telephone quitlines (NOW), reach out to support groups, or work [...] provider. Document Revised: 10/21/2019 Document Reviewed: 04/16/2019 Skipo Patient Education ? 2020 [employer]o Inc. Steps to Quit Smoking Smoking tobacco [...] a prescription, and some you can buy meji-coj-bsgsdrl. Some medicines may contain a drug called [...] encourage you. ??? Call a phone quitline (5-774-JWCXNOW), reach out to support groups, or work [...] provider. Document Revised: 10/21/2019 Document Reviewed: 04/16/2019 Skipo Patient Education ? 2020 [employer].. documented in this encounter Plan of Treatment Not on file documented as of this encounter Visit Diagnoses Not on filedocumented in this encounter Care Teams Clinical Data Coordinator Relationship Specialty Start Date End Date Linh Doty, [address] [place] [address] PCP - General Family Medicine 11/04/22 Lizzie Alves PA-C [address] [place] [address], [facility] [address] [place] [address] Hospitalist Cardiology 05/27/23 Kaushik Mariscal MD [address] [facility] [address] [place], [place] [id number] Golf Club Assembler Electrophysiology 11/18/23 documented as of this encounter
--- OUTSIDE RECORDS SUMMARY | 2024-08-23 13:37 | XMS_ITS | Encounter Summary ---
Author Organization [employer] ([place], [place], [place], [place]) Address [address] [place] [address] Care Team Providers Care Coroner Transport Technician Name Role Phone Lalitha Linhkarthikeyan Mzaariegos DO Primary Care Provider [phone] Lizzie Alves PA-C Unavailable [phone] Kaushik Mariscal MD Unavailable Encounter Details Date Type Department Care Team (Late st Contact Info) Description 07/21/2021 Transcribed Document [facility] [place] [address] [place] [address] ProviderChad MD [address] [place] [address] Social History Tobacco Use Types Packs/Day Years Used Date Smoking Tobacco: Never Assessed Family and Community Support Answer Geremias e Recorded Help with Day to Day Activities Not on file 02/27/2023 Feeling Lonely or Isolated Not on file 02/27 Educational Attainment Answer Date Mendez rded Speak language other than Greek at home Not on file 02/27/2023 Want [...] Cerner Conversion Note - Historical ProviderMD - 07/21/2021 2:00 AM CDT Porcelain Enamel Repairer Details Entered On: 07/21/2021 1:14 EDT Performed On: 07/21/2021 2:00 EDT by ELDER WILSON RN Order Details Patient Needs Meds Crushed/Liquid : No ELDER WILSON RN - 07/21/2021 1:14 EDT documented in this encounter Plan of Treatment Not on file documented as of this encounter Visit Diagnoses Not on filedocumented in this encounter Care Teams Coroner Transport Technician Relationship Specialty Start Date End Date Linh Doty, [address] [facility] [address] [place] [address] PCP - General Family Medicine 11/04/22 Lizzie Alves PA-C [address] [facility] [address] [place] [address] Hospitalist Cardiology 05/27/23 Kaushik Mariscal MD [address] [facility] [address] [place] [address] Seasoner Electrophysiology 11/18/23 documented as of this encounter
--- OUTSIDE RECORDS SUMMARY | 2024-08-23 13:37 | XMS_ITS | Encounter Summary ---
Author Organization [employer] ([place], [place], [place], [place]) Address [address] [place] [address] Care Team Providers Care Shaft Headman Name Role Phone Lalitha Linhkarthikeyan Mazariegos DO Primary Care Provider [phone] Lizzie Alves PA-C Unavailable [phone] Dion Mariscal MD Unavailable Encounter Details Date Type Department Care Team (Late st Contact Info) Description 07/02/2021 Transcribed Document [facility] [place] Family Medicine [address] [place] [address] ProviderChad MD [address] [place] [address] Social History Tobacco Use Types Packs/Day Years Used Date Smoking Tobacco: Never Assessed Family and Community Support Answer Geremias e Recorded Help with Day to Day Activities Not on file 02/27/2023 Feeling Lonely or Isolated Not on file 02/27 Educational Attainment Answer Date Mendez rded Speak language other than Indonesian at home Not on file 02/27/2023 Want [...] Conversion Note - Historical ProviderMD - 07/02/2021 2:09 PM CDT [facility] [place] [address] LENA MENDOZA :1965 Visit Time:07/01/2021 [...] EDT Comments wound device check Where: [address] [facility] [address] [place] [address]- Business (1) Follow Up with LINH WILLIAM DO-FAM When Within 2 to 3 days Comments left message for Dr William office to call pt with appt time. They were out for lunch Where: [address] [place] [address]- Medications What How Much When Instructions Next Dose acetaminophen-hydrocodone (acetaminophen-HYDROcodone 325 mg-5 mg oral tablet) 120 Each, TAKE ONE TABLET BY MOUTH EVERY 6 HOURS MAY CAUSE DROWSINESS cephalexin (Keflex 500 mg oral capsule) 1 Capsule(s) Oral Every 8 Hours Duration: 7 Day(s) Pickup at [facility] clopidogrel (Plavix 75 mg oral tablet) 1 [...] Oral At Bedtime Pharmacy Information [facility]: [address] [facility] [address] [place], [place] [id number] [phone] Take your medications faithfully. Do NOT skip [...] Keep items that you use often in bcwb-rs-nueqf places. Lower the shelves around your home [...] the way. ??? Do not use floor tajik or wax that makes floors slippery. What [...] Control and Prevention, STEADI: www.cdc.gov ??? National [place] on Aging: www.delia.nih.gov Contact a doctor if: [...] provider. Document Revised: 08/29/2020 Document Reviewed: 08/29/2020 [employer] Patient Education ?? 2020 [employer] Inc. Sleep Apnea Sleep apnea affects breathing [...] ask your doctor. General instructions ??? Take qhtq-xzn-dpyojog and prescription medicines only as told by [...] these instructions at home: Medicines ??? Take phqc-aho-rmyvggl and prescription medicines only as told by [...] and water are not available, use hand card dealer. ? Change your dressing as told by [...] feel weak or unsteady. Electricity and magnetic siaacs ??? Avoid places and objects that have [...] your chest for several days. ??? Take xhuk-mbo-afkbasu and prescription medicines only as told by [...] provider. Document Revised: 12/27/2018 Document Reviewed: 12/27/2018 [employer] Patient Education ?? 2020 [employer]. Emergency Awareness and Preventative Care STROKE is [...] Assistance with quitting is available by contacting 8-983-YCZU-NOW. This is a free resource providing counseling, [...] range between ( 0.0 and 7.0 ) [place]on #: 0.57 K/uL -- Normal range between ( 0.16 and 1.00 ) Eos #: 0.05 x10(3)/uL -- Normal range between ( 0.00 and 0.80 ) [place] %: 6.9 % -- Normal range between [...] was given the opportunity to ask questions. Patient/Professor Of Geology Name: Patient/Professor Of Geology Signature: Relationship to Patient: Clinician/Hospital Professor Of Geology Signature: Date: documented in this encounter Plan of Treatment Not on file documented as of this encounter Visit Diagnoses Not on filedocumented in this encounter Care Teams Shaft Headman Relationship Specialty Start Date End Date Linh William, DO [address] [facility] [address] [place] [address] PCP - General Family Medicine 11/04/22 Lizzie Alves PA-C [address] [place] [address], [facility] [address] [place] [address] Hospitalist Cardiology 05/27/23 Dion Mariscal MD [address] [facility] [address] [place] [address] Newborn Photographer Electrophysiology 11/18/23 documented as of this encounter
--- OUTSIDE RECORDS SUMMARY | 2024-08-23 13:37 | XMS_ITS | Encounter Summary ---
Author Organization [employer] ([place], [place], [place], [place]) Address [address] [place] [address] Care Team Providers Care Brush Head Maker Name Role Phone Lalitha Linhkarthikeyan Mazariegos DO Primary Care Provider [phone] Lizzie Alves PA-C Unavailable [phone] Kaushik Mariscal MD Unavailable Encounter Details Date Type Department Care Team (Late st Contact Info) Description 07/02/2021 Transcribed Document [facility] [place] Family Medicine [address] [place] [address] ProviderChad MD [address] [place] [address] Social History Tobacco Use Types Packs/Day Years Used Date Smoking Tobacco: Never Assessed Family and Community Support Answer Geremias e Recorded Help with Day to Day Activities Not on file 02/27/2023 Feeling Lonely or Isolated Not on file 02/27 Educational Attainment Answer Date Mendez rded Speak language other than Iraqi at home Not on file 02/27/2023 Want [...] Conversion Note - Historical ProviderMD - 07/02/2021 2:07 PM CDT Patient Education [...] Keep items that you use often in ibyh-he-ahnpz places. Lower the shelves around your home [...] the way. ??? Do not use floor khmer or wax that makes floors slippery. What [...] Control and Prevention, STEADI: www.cdc.gov ??? National [place] on Aging: www.delia.nih.gov Contact a doctor if: [...] provider. Document Revised: 08/29/2020 Document Reviewed: 08/29/2020 ElseShop Hers Patient Education ? 2020 [employer] Inc. ENT Sleep Apnea Sleep apnea affects [...] ask your doctor. General instructions ??? Take hlhe-yns-vdamcbg and prescription medicines only as told by [...] provider. Document Revised: 11/12/2018 Document Reviewed: 09/21/2018 [employer] Patient Education ? 2020 Elsevier Inc. Procedures Biventricular Pacemaker Implantation, Care After [...] these instructions at home: Medicines ??? Take yqcn-pkw-xapdglw and prescription medicines only as told by [...] and water are not available, use hand medication technician. ? Change your dressing as told by [...] your chest for several days. ??? Take cxsl-nho-wxjwjef and prescription medicines only as told by [...] provider. Document Revised: 12/27/2018 Document Reviewed: 12/27/2018 [employer] Patient Education ? 2020 [employer]. documented in this encounter Plan of Treatment Not on file documented as of this encounter Visit Diagnoses Not on filedocumented in this encounter Care Teams Brush Head Maker Relationship Specialty Start Date End Date Linh Doty, DO [address] [facility] [address] [place] [address] PCP - General Family Medicine 11/04/22 Lizzie Alves PA-C [address] [facility], [facility] [address] [place] [address] Hospitalist Cardiology 05/27/23 Kaushik Mariscal MD [address] [facility] [address] [place] [address] Mop Worker Electrophysiology 11/18/23 documented as of this encounter
--- OUTSIDE RECORDS SUMMARY | 2024-08-23 13:37 | XMS_ITS | Encounter Summary ---
Author Organization [employer] ([place], [place], [place], [place]) Address [address] [place] [address] Care Team Providers Care Torch Straightener Name Role Phone Lalitha Linhkarthikeyan Mazariegos DO Primary Care Provider [phone] Lizzie Alves PA-C Unavailable [phone] Kaushik Mariscal MD Unavailable Encounter Details Date Type Department Care Team (Late st Contact Info) Description 07/25/2021 Transcribed Document [facility] [place] Family Medicine [address] [place] [address] ProviderChad MD [address] [place] [address] Social History Tobacco Use Types Packs/Day Years Used Date Smoking Tobacco: Never Assessed Family and Community Support Answer Geremias e Recorded Help with Day to Day Activities Not on file 02/27/2023 Feeling Lonely or Isolated Not on file 02/27 Educational Attainment Answer Date Mendez rded Speak language other than Austrian at home Not on file 02/27/2023 Want [...] Conversion Note - Historical ProviderMD - 07/25/2021 10:19 AM CDT Patient: LENA MENDOZA Age: 55 [...] (Rocephin) - 2 Gram, IV Piggyback, Inj, [id number], infuse over 30 Minute(s), Routine doxycycline - [...] Resp Rate 20 (JUL 25 09:34) 16 (MADELEINE 15 14:55) H 22 (JUL 15 19:10) SBP L 89 (JUL 25 09:34) L 81 (JUL 16 04:00) H 143 (JUL 15 14:55) DBP 61 (JUL 25 09:34) L 48 (JUL 16 04:00) 82 (JUL 15 18:00) MAP 70 (JUL 25 09:34) 54 (JUL 16 04:00) 103 (JUL 15 14:55) SpO2 L 92 (JUL 25 09:34) L 91 (JUL 15 12:00) 100 (JUL 15 14:50) General: Alert and oriented, Mild distress. [...] No tenderness, No deformity. Integumentary: Warm, Dry, [place], No pallor, No rash, ICD site left chest with no obvious drainage, bandage in place, and did not see the device. Neurologic: Alert, Oriented, No focal deficits, Normal deep tendon reflexes. Cognition and Speech: Oriented, Speech clear and coherent. Psychiatric: Cooperative, Appropriate mood & affect. Review / Management Results review: Labs (Last four charted values) WBC 8.6 (JUL 16) 7.6 (JUL 15) 6.6 (MADELEINE 12) 9.6 (JUL 09) HB 15.3 (MADELEINE 16) H 16.6 (MADELEINE 15) 15.2 (MADELEINE 12) H 16.2 (JUL 09) HCT H 49.2 (JUL 16) H 52.9 (MADELEINE 15) H 48.8 (MADELEINE 12) H 52.1 (MADELEINE 09) Plt L 116 (MADELEINE 16) L 112 (MADELEINE 15) L 105 (MADELEINE 12) L 106 (MADELEINE 09) Na L 134 (MADELEINE 16) 137 (MADELEINE 15) L 135 (MADELEINE 12) 136 (MADELEINE 10) K 4.1 (MADELEINE 16) 4.2 (MADELEINE 15) 4.3 (MADELEINE 12) 4.0 (MADELEINE 10) Cl L 98 (MADELEINE 16) L 100 (MADELEINE 15) 102 (MADELEINE [...] 10) L 3.2 (MADELEINE 09) , ACC: [id number] ORDER: Culture Wound and Stain DATE: 07/24/2021 13:45 SOURCE: Surgical Swab SITE: Pacemaker Pocket Reports Pre 07/25/2021 06:34 No growth GS 07/24/2021 21:55 No organisms seen. No cells seen == ACC: [id number] ORDER: Culture Catheter Tip DATE: 07/24/2021 13:45 SOURCE: Catheter Tip SITE: Pacemaker Pocket Reports Pre 07/25/2021 06:33 No growth == ACC: [id number] ORDER: Culture Blood DATE: 07/16/2021 12:39 SOURCE: Blood SITE: Reports Final 07/21/2021 16:01 No growth at 5 days. Pre 07/20/2021 16:01 No growth at 4 days. Pre 07/19/2021 16:01 No growth at 3 days. Pre 07/18/2021 16:01 No growth at 2 days. Pre 07/17/2021 16:02 No growth at 1 day. Pre 07/17/2021 06:01 Culture less than 24 Hrs old == ACC: [id number] ORDER: Culture Blood DATE: 07/16/2021 12:39 SOURCE: Blood SITE: Reports Final 07/21/2021 16:01 No growth at 5 days. Pre 07/20/2021 16:01 No growth at 4 days. Pre 07/19/2021 16:01 No growth at 3 days. Pre 07/18/2021 16:01 No growth at 2 days. Pre 07/17/2021 16:02 No growth at 1 day. Pre 07/17/2021 06:01 Culture less than 24 Hrs old == [facility]: [id number] ORDER: Culture Wound and Stain DATE: 07/17/2021 [...] mother. Discussed with cardiology. Electronically signed by Rekha, [facility] Conversion Coyote Hunter Cerner at 05/27/2022 8:58 PM CDT documented in this encounter Plan of Treatment Not on file documented as of this encounter Visit Diagnoses Not on filedocumented in this encounter Care Teams Torch Straightener Relationship Specialty Start Date End Date Linh Doty, DO 8 [facility] [address] [place] [address] PCP - General Family Medicine 11/04/22 Lizzie Alves PA-C [address] [facility], [facility] [address] [place] [address] Hospitalist Cardiology 05/27/23 Kaushik Mariscal MD [address] [facility] [address] [place], [place] [address] Polisher Hand Electrophysiology 11/18/23 documented as of this encounter
--- OUTSIDE RECORDS SUMMARY | 2024-08-23 13:37 | XMS_ITS | Encounter Summary ---
Author Organization [employer] ([place], [place], [place], [place]) Address [address] [place] [address] Care Team Providers Care Pleating Supervisor Name Role Phone Grace Linhkarthikeyan Mazariegos DO Primary Care Provider [phone] Lizzie Alves PA-C Unavailable [phone] Kaushik Mariscal MD Unavailable Encounter Details Date Type Department Care Team (Late st Contact Info) Description 07/02/2021 Transcribed Document [facility] [place] Family Medicine [address] [place] [address] ProviderChad MD [address] [place] [address] Social History Tobacco Use Types Packs/Day Years Used Date Smoking Tobacco: Never Assessed Family and Community Support Answer Geremias e Recorded Help with Day to Day Activities Not on file 02/27/2023 Feeling Lonely or Isolated Not on file 02/27 Educational Attainment Answer Date Mendez rded Speak language other than Mozambican at home Not on file 02/27/2023 Want [...] Conversion Note - Historical ProviderMD - 07/02/2021 1:09 PM CDT On Going Discharge Planning Entered On: 07/02/2021 13:11 EDT Performed On: 07/02/2021 13:09 EDT by ERNIE PAYAN, RN-Computer Systems Design AnalystSupervisor Dry Cleaning Progress Note Discharge Arrangements : Patient Post-Acute Information Patient Name: GAGAN SEALS Gender: Female : 63 Age: 55 Years No Post-Acute Placement(s) Listed No Post-Acute Service(s) Listed No Curaspan Referral(s) Listed Patient Discharge Goal : Home ERNIE PAYAN RN-Computer Systems Design Analyst - 07/02/2021 13:09 EDT Narrative Progress Note Narrative Progress Note : received call from Dr grace Gonzalez office. she spoke with ms. seals to schedule follow up appt. pt declined to schedule appt as will see Jimenez next week. ERNIE PAYAN, RN-Computer Systems Design Analyst - 07/02/2021 13:09 EDT documented in this encounter Plan of Treatment Not on file documented as of this encounter Visit Diagnoses Not on filedocumented in this encounter Care Teams Pleating Supervisor Relationship Specialty Start Date End Date Linh Doty, DO 8 [facility] [address] [place] [address] PCP - General Family Medicine 11/04/22 Lizzie Alves PA-C [address] [facility], [facility] [address] [place] [address] Hospitalist Cardiology 05/27/23 Kaushik Mariscal MD [address] [facility] [address] [place], [place] [id number] Valet Cashier Electrophysiology 11/18/23 documented as of this encounter
--- OUTSIDE RECORDS SUMMARY | 2024-08-23 13:37 | XMS_ITS | Encounter Summary ---
Author Organization [employer] ([place], [place], [place], [place]) Address [address] [place] [address] Care Team Providers Care Mapping Editor Name Role Phone Lalitha Linhkarthikeyan Mazariegos DO Primary Care Provider [phone] Lizzie Alves PA-C Unavailable [phone] Kaushik Mariscal MD Unavailable Encounter Details Date Type Department Care Team (Late st Contact Info) Description 07/20/2021 Transcribed Document [facility] [place] Family Medicine [address] [place] [address] ProviderChad MD [address] [place] [address] Social History Tobacco Use Types [...] Cerner Conversion Note - Historical ProviderMD - 07/20/2021 11:32 AM CDT Patient: LENA MENDOZA Age: 55 [...] with bloody drainage. Patient was admitted to [facility] on 07/16/2021. Post generator change, [...] (Rocephin) - 2 Gram, IV Piggyback, Inj, [id number], infuse over 30 Minute(s), Routine DAPTOmycin + Sodium Chloride 0.9% intravenous solution 50 mL - 400 mg, IV Piggyback, Inj, [id number], infuse over 30 Minute(s), Routine Anticoagulant alteplase [...] Last Charted Minimum Maximum Temp 97.8 (JUL 20:) 97.8 (JUL 20:) 98 (JUL 19 15:00) Mon HR 78 [...] 10:18) 71 (JUL 20 10:18) 78 (JUL 19 [...] No tenderness, No deformity. Integumentary: Warm, Dry, [place], No pallor, No rash, ICD site [...] H 142 (MADELEINE 07) T Bili 0.5 (JUL 10) 0.6 (JUL 09) 0.7 (JUL 08) 0.6 (JUL 07) PTN 7.3 (JUL 10) 6.8 (JUL 09) 7.0 (JUL 08) 7.6 (JUL 07) ALB L 3.2 (JUL 10) L 3.2 (JUL 09) L 3.3 (JUL 08) 3.5 (JUL 07) , ACC: [id number] ORDER: Culture Wound and Stain DATE: 07/17/2021 08:34 SOURCE: Wound SITE: Chest L Reports Final 07/20/2021 07:46 No growth Pre 07/18/2021 06:24 No growth GS 07/17/2021 14:09 No cells seen No organisms seen. == [facility]: [id number] ORDER: Culture Blood DATE: 07/16/2021 12:39 SOURCE: Blood SITE: Reports Pre 07/19/2021 16:01 No growth at 3 days. Pre 07/18/2021 16:01 No growth at 2 days. Pre 07/17/2021 16:02 No growth at 1 day. Pre 07/17/2021 06:01 Culture less than 24 Hrs old == ACC: [id number] ORDER: Culture Blood DATE: 07/16/2021 12:39 SOURCE: [...] Weekly PICC dressing changes. Fax orders to [id number], call [phone] with final arrangements. Hold rosuvastatin while on daptomycin to decrease risk of rhabdomyolysis. Arrange for follow-up with me in 1 week post discharge. documented in this encounter Plan of Treatment Not on file documented as of this encounter Visit Diagnoses Not on filedocumented in this encounter Care Teams Mapping Editor Relationship Specialty Start Date End Date Linh Doty, 8 [facility] [address] [place] [address] PCP - General Family Medicine 11/04/22 Lizzie Alves PA-C [address] [place] [address], [facility] [address] [place] [address] Hospitalist Cardiology 05/27/23 Kaushik Mariscal MD [address] [facility] [address] [place] [address] Petrophysicist Electrophysiology 11/18/23 documented as of this encounter
--- OUTSIDE RECORDS SUMMARY | 2024-08-23 13:37 | XMS_ITS | Encounter Summary ---
Author Organization [employer] ([place], [place], [place], [place]) Address [address] [place] [address] Care Team Providers Care Wastewater Project Manager Name Role Phone Lalitha Linhkarthikeyan Mazariegos DO Primary Care Provider [phone] Lizzie Alves PA-C Unavailable [phone] Kaushik Mariscal MD Unavailable Encounter Details Date Type Department Care Team (Late st Contact Info) Description 07/02/2021 Transcribed Document [facility] [place] [address] [place] [address] ProviderChad MD [address] [place] [address] Social History Tobacco Use Types Packs/Day Years Used Date Smoking Tobacco: Never Assessed Family and Community Support Answer Geremias e Recorded Help with Day to Day Activities Not on file 02/27/2023 Feeling Lonely or Isolated Not on file 02/27 Educational Attainment Answer Date Mendez rded Speak language other than Slovak at home Not on file 02/27/2023 Want [...] Conversion Note - Historical ProviderMD - 07/02/2021 2:08 PM CDT Stroke/Warfarin Instructions Entered On: 07/02/2021 14:08 EDT Performed On: 07/02/2021 14:08 EDT by Aimee Betancur RN-Rogelio Stroke/Warfarin Instructions Stroke/TIA Discharge Ins : N/A Warfarin Discharge Ins : N/A Aimee Betancur RN-Rogelio - 07/02/2021 14:08 EDT Education Topics: Anticoagulant Education Anticoagulant : Anticoagulant other than warfarin Compliance Issues *Q : Verbalizes understanding Diet *Q : Verbalizes understanding Adverse drug reactions/interactions *Q : Verbalizes understanding Action/Interaction with Other Drugs : Verbalizes understanding Follow-up care/monitoring *Q : Verbalizes understanding Follow-up Care Details : Physician's office/clinic Aimee Betancur RN-Rogelio - 07/02/2021 14:08 EDT Electronically signed by Rekha [facility] Conversion S3B Multi Sensor Operator Cerner at 05/27/2022 9:23 PM CDT documented in this encounter Plan of Treatment Not on file documented as of this encounter Visit Diagnoses Not on filedocumented in this encounter Care Teams Wastewater Project Manager Relationship Specialty Start Date End Date Linh Doty, DO 8 [facility] [address] [place] [address] PCP - General Family Medicine 11/04/22 Lizzie Alves PA-C 1401 [facility], [facility] [address] [place] [address] Hospitalist Cardiology 05/27/23 Kaushik Mariscal MD 1401 [facility] [address] [place] [address] Manager Agency Electrophysiology 11/18/23 documented as of this encounter
--- OUTSIDE RECORDS SUMMARY | 2024-08-23 13:37 | XMS_ITS | Encounter Summary ---
Author Organization [employer] ([place], [place], [place], [place]) Address [address] [place] [address] Care Team Providers Care Devil Tender Name Role Phone Linh Doty DO Primary Care Provider Lizzie Alves PA-C Unavailable [phone] Kaushik Mariscal MD Unavailable Reason for Visit * Reason Comments Medication Refill Encounter Details Date Type Department Care Team (Late st Contact Info) Description 04/20/2023 Refill [facility] Cardiology [address] [place] [address] Pedro Cruz APRN [address] [facility] [address] [place] [address] Acute coronary thrombosis not resulting in myocardial [...] Date Mendez rded Speak language other than Czech at home Not on file 02/27/2023 Want [...] (HCC) documented in this encounter Care Teams Devil Tender Relationship Specialty Start Date End Date Linh Doty, 8 [facility] [address] [place] [address] PCP - General Family Medicine 11/04/22 Lizzie Alves PA-C [address] [place] [address], [facility] [address] [place] [address] Hospitalist Cardiology 05/27/23 Kaushik Mariscal MD [address] [facility] [address] [place] [address] Program Production Specialist Electrophysiology 11/18/23 documented as of this encounter
--- OUTSIDE RECORDS SUMMARY | 2024-08-23 13:37 | XMS_ITS | Encounter Summary ---
Author Organization [employer] ([place], [place], [place], [place]) Address [address] [place] [address] Care Team Providers Care Natural Resources Professor Name Role Phone Lalitha Linhkarthikeyan Mazariegos DO Primary Care Provider [phone] Lizzie Alves PA-C Unavailable [phone] Kaushik Mariscal MD Unavailable Encounter Details Date Type Department Care Team (Late st Contact Info) Description 07/25/2021 Transcribed Document [facility] [place] Family Medicine [address] [place] [address] ProviderChad MD [address] [place] [address] Social History Tobacco Use Types [...] Conversion Note - Historical ProviderMD - 07/25/2021 12:05 PM CDT Stroke/Warfarin Instructions Entered On: 07/25/2021 12:06 EDT Performed On: 07/25/2021 12:05 EDT by Caryl Estrada RN-Maps InDeed Stroke/Warfarin Instructions Stroke/TIA Discharge Ins : N/A Warfarin Discharge Ins : N/A Caryl Estrada RN-Maps InDeed - 07/25/2021 12:05 EDT Education Topics: Anticoagulant Education Anticoagulant : Anticoagulant other than warfarin Compliance Issues *Q : Verbalizes understanding Diet *Q : Verbalizes understanding Adverse drug reactions/interactions *Q : Verbalizes understanding Action/Interaction with Other Drugs : Verbalizes understanding Follow-up care/monitoring *Q : Verbalizes understanding Follow-up Care Details : Physician's office/clinic Caryl Estrada RN-Maps InDeed - 07/25/2021 12:05 EDT Electronically signed by Rekha [facility] Conversion Health Record Technician Cerner at 05/27/2022 9:13 PM CDT documented in this encounter Plan of Treatment Not on file documented as of this encounter Visit Diagnoses Not on filedocumented in this encounter Care Teams Natural Resources Professor Relationship Specialty Start Date End Date Linh Doty, DO 8 [facility] [address] [place] [address] PCP - General Family Medicine 11/04/22 Lizzie Alves PA-C 1401 [facility] [address] [place] [address] Hospitalist Cardiology 05/27/23 Kaushik Mariscal MD 1401 [facility] [address] [place] [address] Fire Control Assistant Electrophysiology 11/18/23 documented as of this encounter
--- OUTSIDE RECORDS SUMMARY | 2024-08-23 13:37 | XMS_ITS | Encounter Summary ---
Author Organization [employer] ([place], [place], [place], [place]) Address [address] [place] [address] Care Team Providers Care Borough Coordinator Name Role Phone Lalitha Linh Delilah DAVIS Primary Care Provider [phone] Lizzie Alves PA-C Unavailable [phone] Dion Mariscal MD Unavailable Encounter Details Date Type Department Care Team (Late st Contact Info) Description 07/02/2021 Transcribed Document [facility] [place] Family Medicine [address] [place] [address] ProviderChad MD [address] [place] [place] [address] Social History Tobacco Use Types Packs/Day [...] Conversion Note - Historical ProviderMD - 07/02/2021 6:39 AM CDT Consult Phone Call Documentation Entered On: 07/02/2021 6:40 EDT Performed On: 07/02/2021 6:39 EDT by Kait Kang RN Phone Call for Consults Consult Reason : Dr. Mariscal paged at 0512. Kait Kang RN - 07/02/2021 6:40 EDT Consult Phone Call/Page Attempt : First call Provider Service Notified Name : Cardiology Physician Covering for Consult : DION MARISCAL MD-Kait Rizo RN - 07/02/2021 6:39 EDT documented in this encounter Plan of Treatment Not on file documented as of this encounter Visit Diagnoses Not on filedocumented in this encounter Care Teams Borough Coordinator Relationship Specialty Start Date End Date Linh Doty, DO [address] [facility] [address] [place] [address] PCP - General Family Medicine 11/04/22 Lizzie Alves PA-C [address] [place] [address], [facility] [address] [place] [address] Hospitalist Cardiology 05/27/23 Dion Mariscal MD [address] [facility] [address] [place] [address] Red Lead Burner Electrophysiology 11/18/23 documented as of this encounter
--- OUTSIDE RECORDS SUMMARY | 2024-08-23 13:37 | XMS_ITS | Encounter Summary ---
Author Organization [employer] ([place], [place], [place], [place]) Address [address] [place] [address] Care Team Providers Care Artist'S Model Name Role Phone Lalitha Linhkarthikeyan Mazariegos DO Primary Care Provider [phone] Lizzie Alves PA-C Unavailable [phone] Kaushik Mariscal MD Unavailable Encounter Details Date Type Department Care Team (Late st Contact Info) Description 07/02/2021 Transcribed Document [facility] [place] Family Medicine [address] [place] [address] ProviderChad MD [address] [place] [address] Social History Tobacco Use Types Packs/Day Years Used Date Smoking Tobacco: Never Assessed Family and Community Support Answer Geremias e Recorded Help with Day to Day Activities Not on file 02/27/2023 Feeling Lonely or Isolated Not on file 02/27 Educational Attainment Answer Date Mendez rded Speak language other than Vincentian at home Not on file 02/27/2023 Want [...] Conversion Note - Historical ProviderMD - 07/02/2021 11:31 AM CDT UM Authorization Entered On: 07/02/2021 11:31 EDT Performed On: 07/02/2021 11:31 EDT by Khushi Jones Rn-Utilization Review Primary Insurance Authorization Authorization and Policy Numbers : Insurance 1 Health Plan: [employer] MANAGED MEDICARE Policy Number: [id number] Authorization Number: [id number] Insurance Primary Name : Health Plan: [email or web address] MANAGED MEDICARE Policy Number: [id number] Authorized Service Begin Date-Primary : 07/01/2021 EDT Historical Authorization Comments-Primary : No Authorization Comments Found Khushi Jones Rn-Utilization Review - 07/02/2021 11:31 EDT documented in this encounter Plan of Treatment Not on file documented as of this encounter Visit Diagnoses Not on filedocumented in this encounter Care Teams Artist'S Model Relationship Specialty Start Date End Date Linh Doty, 8 [facility] [address] [place] [address] PCP - General Family Medicine 11/04/22 Lizzie Alves PA-C [address] [place] [address] [address] [place] [address] Hospitalist Cardiology 05/27/23 Kaushik Mariscal MD [address] [facility] [address] [place] [address] Control Cabinet Assembler Electrophysiology 11/18/23 documented as of this encounter
--- OUTSIDE RECORDS SUMMARY | 2024-08-23 13:38 | XMS_ITS | Encounter Summary ---
Author Organization [employer] ([place], [place], [place], [place]) Address [address] [place] [address] Care Team Providers Care Teaching Associate Name Role Phone Lalitha Linhkarthikeyan Mazariegos DO Primary Care Provider Lizzie Alves PA-C Unavailable [phone] Kaushik Mariscal MD Unavailable Encounter Details Date Type Department Care Team (Late st Contact Info) Description 07/19/2021 Transcribed Document [facility] Radiology [address] [id number] Yanick Torres MD [address] [place] [address] [place] [address] Social History Tobacco Use Types Packs/Day Years Used Date Smoking Tobacco: Never Assessed Family and Community Support Answer Geremias e Recorded Help with Day to Day Activities Not on file 02/27/2023 Feeling Lonely or Isolated Not on file 02/27 Educational Attainment Answer Date Mendez rded Speak language other than Bhutanese at home Not on file 02/27/2023 Want [...] mg, 8 mL, 116 mL/Hr, IV Piggyback, [id number] Florastor: 250 mg, Oral, BID Lasix: 20 mg, Oral, Daily MiraLax: 17 Gram, Oral, Daily, PRN: Constipation Normal Saline Flush: 10 mL, IntraCATHeter, Q12H Rocephin: 2 Gram, 100 mL/Hr, IV Piggyback, [id number] Roxicodone: 5 mg, Oral, Q4H, PRN: Pain [...] 0 Refill(s) Rocephin: 2 Gram, IV Piggyback, [id number], 0 Refill(s) Vitamin D2 1.25 mg (50,000 intl units) oral capsule: 1 Cap, Oral, Weekly, 0 Refill(s) acetaminophen-HYDROcodone 325 mg-5 mg oral tablet: 1 Tab, Oral, Q8H, PRN: for pain, 0 Refill(s) carvedilol 12.5 mg oral tablet: 1 Tab, Oral, BID, 180 Tab, 0 Refill(s) fluticasone 50 mcg/inh nasal spray: 2 [place], Nasal, Daily, PRN: Nasal Congestion, 16 Gram, [...] BID fluticasone 50 mcg/inh nasal spray 2 [place], PRN, Nasal, Daily folic acid 1 mg [...] Oral, Daily Rocephin 2 Gram, IV Piggyback, [id number] topiramate 25 mg oral tablet 25 mg [...] Oral, BID cefTRIAXone 2 Gram, IV Piggyback, [id number] DAPTOmycin + NaCl 0.9% 50 mL 400 mg 8 mL, IV Piggyback, [id number] ergocalciferol 50,000 unit cap 50,000 Units 1 [...] At risk for sleep apnea / IMO 99052875 / Confirmed High cholesterol / SNOMED CT 66949130 / Confirmed Canceled: At risk for sleep apnea / IMO 12822370 Canceled: COPD (chronic obstructive pulmonary disease) / SNOMED CT 43202763 Canceled: HTN (hypertension) / SNOMED CT 9074608959, Active Problems (12) Arteriosclerosis At risk for sleep apnea Cardiomyopathy Chronic CHF Current smoker Gout High cholesterol History of [place] (myocardial infarction) Intermittent claudication Pacemaker PAD (peripheral [...] gallop, S1+ S2 No S3 or S4 [place].. Gastrointestinal: Soft, Non-tender, Non-distended, Normal bowel sounds. [...] Weekly PICC dressing changes. Fax orders to [id number], c Hold rosuvastatin while on daptomycin to decrease risk of rhabdomyolysis. 07/20 Discharge Medications (14) Active acetaminophen-HYDROcodone 325 mg-5 mg oral tablet 1 Tab, PRN, Oral, Q8H carvedilol 12.5 mg oral tablet 12.5 mg = 1 Tab, Oral, BID Florastor 250 mg oral capsule 250 mg = 1 Cap, Oral, BID fluticasone 50 mcg/inh nasal spray 2 [place], PRN, Nasal, Daily folic acid 1 mg [...] Oral, Daily Rocephin 2 Gram, IV Piggyback, [id number] topiramate 25 mg oral tablet 25 mg [...] on filedocumented in this encounter Care Teams Teaching Associate Relationship Specialty Start Date End Date Linh Doty, DO 8 [facility] [address] [place] [address] PCP - General Family Medicine 11/04/22 Lizzie Alves PA-C [address] [place] [address], [facility] [address] [place] [address] Hospitalist Cardiology 05/27/23 Kaushik Mariscal MD 14[address] [facility] [address] [place] [address] Shooter'S Helper Electrophysiology 11/18/23 documented as of this encounter
--- OUTSIDE RECORDS SUMMARY | 2024-08-23 13:38 | XMS_ITS | Clinical Summary ---
Author Organization [facility] Address [address] [place] [address] Phone Care Team Providers Care Director Paid Media Name Role Phone Fracisco DALTON, Gilson Begum Unavailable [phone] [ ] Conditions or Problems Problem Name Problem Code Onset Date Status Entry Date Provider Comment Standard Description Annotate Dermatitis due to drug AND/OR medicine taken internally 19171624 (SNOMED CT) 08/21 Active 08/21 Gilson Yap [...] subsequent encounter Cellulitis/wo und infection, chest wall 52903196 (SNOMED CT) 07/26 Active 07/26 Sherri Herndon Cellulitis of chest wall Ischemic Cardiomyopath y 790440453 (SNOMED CT) 07/26 Active 07/26 Sherri Herndon Generalized ischemic myocardial dysfunction Nicotine dependence, cigarettes 76219664 (SNOMED CT) 07/26 Active 07/26 Sherri Herndon Cigarette smoker COPD 31658082 (SNOMED CT) 07/26 Active 07/26 Sherri Herndon Chronic obstructive pulmonary disease Acute respiratory failure with hypoxia 92527809 (SNOMED CT) 07/26 Active 07/26 Sherri Herndon Acute respiratory failure Hypoalbuminem ia 205280735 (OMED CT) 07/26 Active 07/26 Sherri Herdnon Hypoalbuminemia Hypocalcemia 3827558 ([facility] CT) 07/26 Active 07/26 Sherri Herndon Hypocalcemia Thrombocytope delia, secondary D69.59 (ICD-10-CM ) 07/26 Active 07/26 Sherri Herndon Other secondary thrombocytopenia Hyponatremia 43798246 ([facility] CT) 07/26 Active 07/26 Sherri Herndon Hyponatremia Medications Medication Instructions Start Date Stop Date Generic Name NDC Provider HYDROCODONE-ROSE TAMINOPHEN 5-325 MG TABS 1 Tab, as needed, Oral, every 8 hours hydrocodone-acet aminophen 75473198517 Faina Cantu CARVEDILOL 12.5 MG TABS 1 Tab, Oral, twice a day carvedilol 80945877709 Faina Cantu CEFDINIR 300 MG CAPS 1 Cap, Oral, every 12 hours cefdinir 29804777613 Faina Cantu DOXYCYCLINE HYCLATE 100 MG CAPS 1 Cap, Oral, twice a day doxycycline hyclate 18663258864 Faina Cantu FLORASTOR 250 MG CAPS 1 Cap, Oral, twice a day saccharomyces boulardii 96588315336 Faina Cantu FLUTICASONE PROPIONATE 50 MCG/ACT SUSP 2 [place], as needed, Nasal, Daily fluticasone propionate 00785977573 Faina Cantu FOLIC ACID 1 MG TABS 1 Tab, Oral, Daily folic acid 06593069911 Faina Cantu FUROSEMIDE 20 MG TABS 1 Tab, Oral, Daily furosemide 40902787368 Faina Cantu GABAPENTIN 600 MG TABS 1 Tab, Oral, three times a day gabapentin 25593671381 Faina Cantu LISINOPRIL 20 MG TABS 1 Tab, Oral, At Bedtime lisinopril 69917188464 Faina Cantu NICOTINE STEP 1 21 MG/24HR PT24 1 Patch, TransDermal, Daily nicotine 04920055445 Faina Cantu PANTOPRAZOLE SODIUM 40 MG TBEC 1 Tab, Oral, Daily pantoprazole 89565433959 Faina Cantu POTASSIUM CHLORIDE ER 20 MEQ CR-TABS 1 Tab, Oral, Daily potassium chloride 98455535877 Faina Cantu TOPIRAMATE 25 MG TABS 1 Tab, Oral, At Bedtime topiramate 84636099557 Faina Cantu VITAMIN D (ERGOCALCIFEROL ) 1.25 MG (49157 UT) CAPS 1 Cap, Oral, Weekly ergocalciferol (vitamin d2) 09691326490 Faina Cantu Medications Administered No information available. [...] Name Date Entry Date CPT-sl STAT Labs CPT-57320 CMP [id number] CBC with Differential 2021 CPT-52707 C- reactive protein CPT-Cooral Continue oral antibiotics [...]
--- OUTSIDE RECORDS SUMMARY | 2024-08-23 13:38 | XMS_ITS | Encounter Summary ---
Author Organization [employer] ([place], [place], [place], [place]) Address [address] [place] [address] Care Team Providers Care Continuity Person Name Role Phone Lalitha Linh Delilah DAVIS Primary Care Provider [phone] Lizzie Alves PA-C Unavailable [phone] Dion Mariscal MD Unavailable Encounter Details Date Type Department Care Team (Late st Contact Info) Description 07/19/2021 Transcribed Document [facility] [place] Family Medicine [address] [place] [address] ProviderChad MD [address] [place] [address] Social History Tobacco Use Types [...] Cerner Conversion Note - Historical ProviderMD - 07/19/2021 9:36 AM CDT Patient: LENA MENDOZA [facility]: [id number] Age: 55 years Sex: Female : 1965 [...] mg, 8 mL, 116 mL/Hr, IV Piggyback, S87MVnd Florastor: 250 mg, Oral, BID Lasix: 20 mg, Oral, Daily MiraLax: 17 Gram, Oral, Daily, PRN: Constipation Normal Saline Flush: 10 mL, IntraCATHeter, Q12H Rocephin: 2 Gram, 100 mL/Hr, IV Piggyback, [id number] Roxicodone: 5 mg, Oral, Q4H, PRN: Pain [...] Refill(s) fluticasone 50 mcg/inh nasal spray: 2 [place], Nasal, Daily, PRN: Nasal Congestion, 16 Gram, [...] BID fluticasone 50 mcg/inh nasal spray 2 [place], PRN, Nasal, Daily folic acid 1 mg [...] Oral, BID cefTRIAXone 2 Gram, IV Piggyback, Z23ZWkr DAPTOmycin + NaCl 0.9% 50 mL 400 mg 8 mL, IV Piggyback, H57OZiy ergocalciferol 50,000 unit cap 50,000 Units 1 [...] All Problems High cholesterol / SNOMED CT 80372803 / Confirmed PAD (peripheral artery disease) / SNOMED CT 5062826587 / Confirmed Chronic CHF / SNOMED CT 729177694 / Confirmed Current smoker / SNOMED CT 839446894 / Confirmed Arteriosclerosis / SNOMED CT 385745661 / Confirmed Intermittent claudication / SNOMED CT 640767559 / Confirmed Cardiomyopathy / SNOMED CT 063317737 / Confirmed History of [place] (myocardial infarction) / SNOMED CT 4458232297 / Confirmed Pacemaker / SNOMED CT 4202255646 / Confirmed Stented coronary artery / SNOMED CT 2190743741 / Confirmed Gout / SNOMED CT 427872289 / Confirmed At risk for sleep apnea / IMO 56140960 / Confirmed Resolved: History of ventricular tachycardia / SNOMED CT 4921442778 ICD placed in past for arrythmia. Canceled: HTN (hypertension) / SNOMED CT 0407221167 Canceled: COPD (chronic obstructive pulmonary disease) / SNOMED CT 70166983 Canceled: At risk for sleep apnea / IMO 85558425 Canceled: History of ischemic cardiomyopathy / SNOMED CT 364265029 Canceled: Abdominal aortic stenosis / SNOMED CT 584381930 Canceled: Shortness of breath / SNOMED CT 511063188, Active Problems (12) Arteriosclerosis At risk for sleep apnea Cardiomyopathy Chronic CHF Current smoker Gout High cholesterol History of [place] (myocardial infarction) Intermittent claudication Pacemaker PAD (peripheral [...] 19 05:56) 15 (JUL 19 02:00) 18 (MADELEINE 09 22:15) SBP 99 (JUL 19 05:56) 99 (JUL 19 05:56) 110 (JUL 19 02:00) DBP 60 (JUL 19 05:56) 60 (JUL 19 05:56) 67 (JUL 18:15) MAP 75 (JUL 19 05:56) 72 (JUL 19 02:00) 78 (JUL 18:15) SpO2 95 (JUL 19 05:56) 95 (JUL 19 05:56) 98 (JUL 18:) Results Review Telemetry - SR General: Alert [...] Normal range of motion. Integumentary: Warm, Dry, [place]. PPM site stable. Bruising around site but [...] further plans to follow. Electronically signed by Reyna Da Silva Conversion Engineer Design And Construction Cerner at 05/27/2022 9:14 PM CDT documented in this encounter Plan of Treatment Not on file documented as of this encounter Visit Diagnoses Not on filedocumented in this encounter Care Teams Continuity Person Relationship Specialty Start Date End Date Linh Doty, DO 8 [facility] [address] [place] [address] PCP - General Family Medicine 11/04/22 Lizzie Alves PA-C [address] [place] [place] [address] Hospitalist Cardiology 05/27/23 Dion Mariscal MD [address]01 [facility] [address] [place], [place] [address] Airplane Woodworker Electrophysiology 11/18/23 documented as of this encounter
--- OUTSIDE RECORDS SUMMARY | 2024-08-23 13:38 | XMS_ITS | Referral Summary ---
Author Organization [employer] ([place], [place], [place], [place]) Address [address] [place] [address] Care Team Providers Care Dental Office Receptionist Name Role Phone Lalitha Linhkarthikeyan Mazariegos DO Primary Care Provider [phone] Lizzie Alves PA-C Unavailable [phone] Kaushik Mariscal MD Unavailable Encounters Date Type Department Care Team Description 07/15/2024 5:00 AM EDT Clinical Support [facility] Electrophysiology [address] [place] [address] Louise Gottlieb MD Encounter for adjustment or management of cardiac device (Primary Dx); Ischemic cardiomyopathy with implantable cardioverter-defibrill ator (ICD); Chronic combined systolic and diastolic congestive heart failure (HCC) 07/11/2024 6:00 AM EDT Clinical Support [facility] Electrophysiology [address] [place] [address] Louise Gottlieb MD Encounter for adjustment or management of cardiac device (Primary Dx); Ischemic cardiomyopathy with implantable cardioverter-defibrill ator (ICD); Chronic combined systolic and diastolic congestive heart failure (HCC) 06/13/2024 6:00 AM EDT Clinical Support [facility] Electrophysiology [address] [place] [address] Kaushik Mariscal MD Encounter for adjustment [...] 75 mg tabletIndications :Atherosclerotic heart disease of [place] coronary artery without angina pectoris TAKE ONE [...] Date Mendez rded Speak language other than Sri [place]ankan at home Not on file 02/27/2023 Want [...] on file Medical Devices Implanted Type Area Mining Detail Draftsperson Device Identifier Shelf Expiration Date Model / Serial / Lot Icd-08/26/2021 Implanted:08/26 by Kaushik Mariscal MD (Quantity not on file) ICD [employer] 500Q / [id number] / Insurance [employer] Care Teams Dental Office Receptionist Relationship Specialty Start Date End Date Linh Doty, DO [address] [facility] [address] [place] [address] PCP - General Family Medicine 11/04/22 Lizzie Alves PA-C 1401 [facility] [address] [place] [address] Hospitalist Cardiology 05/27/23 Kaushik Mariscal MD 1401 [facility] [address] [place] [address] Closing Coordinator Electrophysiology 11/18/23
--- OUTSIDE RECORDS SUMMARY | 2024-08-23 13:38 | XMS_ITS | Encounter Summary ---
Author Organization [employer] ([place], [place], [place], [place]) Address [address] [place] [address] Care Team Providers Care Vacuum Worker Name Role Phone Lalitha Linhkarthikeyan Mazariegos DO Primary Care Provider Lizzie Alves PA-C Unavailable [phone] Kaushik Mariscal MD Unavailable Encounter Details Date Type Department Care Team (Late st Contact Info) Description 07/20/2021 Transcribed Document [facility] Radiology [address] [id number] Yanick Torres MD [address] [place] [address] [place] [address] Social History Tobacco Use Types Packs/Day Years [...] mg, 8 mL, 116 mL/Hr, IV Piggyback, [id number] Florastor: 250 mg, Oral, BID Lasix: 20 mg, Oral, Daily MiraLax: 17 Gram, Oral, Daily, PRN: Constipation Normal Saline Flush: 10 mL, IntraCATHeter, Q12H Rocephin: 2 Gram, 100 mL/Hr, IV Piggyback, Y62ZGyi Roxicodone: 5 mg, Oral, Q4H, PRN: Pain [...] 0 Refill(s) Rocephin: 2 Gram, IV Piggyback, N01IQfe, 0 Refill(s) Vitamin D2 1.25 mg (50,000 intl units) oral capsule: 1 Cap, Oral, Weekly, 0 Refill(s) acetaminophen-HYDROcodone 325 mg-5 mg oral tablet: 1 Tab, Oral, Q8H, PRN: for pain, 0 Refill(s) carvedilol 12.5 mg oral tablet: 1 Tab, Oral, BID, 180 Tab, 0 Refill(s) fluticasone 50 mcg/inh nasal spray: 2 [place], Nasal, Daily, PRN: Nasal Congestion, 16 Gram, [...] BID fluticasone 50 mcg/inh nasal spray 2 [place], PRN, Nasal, Daily folic acid 1 mg [...] Oral, Daily Rocephin 2 Gram, IV Piggyback, D28ZRqu topiramate 25 mg oral tablet 25 mg [...] Oral, BID cefTRIAXone 2 Gram, IV Piggyback, Y09RTor DAPTOmycin + NaCl 0.9% 50 mL 400 mg 8 mL, IV Piggyback, I01CKnw ergocalciferol 50,000 unit cap 50,000 Units 1 [...] At risk for sleep apnea / IMO 71263448 / Confirmed High cholesterol / SNOMED CT 51536522 / Confirmed Canceled: At risk for sleep apnea / IMO 64013647 Canceled: COPD (chronic obstructive pulmonary disease) / SNOMED CT 44525378 Canceled: HTN (hypertension) / SNOMED CT 5380719508, Active Problems (12) Arteriosclerosis At risk for sleep apnea Cardiomyopathy Chronic CHF Current smoker Gout High cholesterol History of [place] (myocardial infarction) Intermittent claudication Pacemaker PAD (peripheral artery disease) Stented coronary artery Objective VS/Measurements Vitals Signs (last 24 hrs) Last Charted Minimum Maximum Temp 97.8 (JUL 20 03:09) 97.8 (JUL 20:) 98 (JUL 19 15:00) Mon HR 78 (JUL 20:18) 77 (JUL 20 03:) 81 (JUL 19 16:48) Resp Rate 16 (JUL 19 16:00) 16 (JUL 19 16:00) 16 (JUL 19 16:00) SBP 98 (JUL 20:18) 97 (JUL 20 03:09) 105 (JUL 19 22:32) DBP 60 (JUL 20:18) L 59 (JUL 20 03:09) 66 (JUL 19 16:48) MAP 71 (JUL 20:18) 71 (JUL 20 10:18) 78 (JUL 19 16:48) SpO2 L 91 (JUL 20:09) L 91 (JUL 20:) 97 (JUL 19 16:48) General: No acute distress. Eye: Normal conjunctiva. Neck: No jugular venous distention. Respiratory: Lungs are clear to auscultation, Respirations are non-labored, Breath sounds are equal. Cardiovascular: Regular rhythm, No gallop, S1+ S2 No S3 or S4 [place].. Gastrointestinal: Soft, Non-tender, Non-distended, Normal bowel sounds. [...] Weekly PICC dressing changes. Fax orders to [id number], c Hold rosuvastatin while on daptomycin to [...] on filedocumented in this encounter Care Teams Vacuum Worker Relationship Specialty Start Date End Date Linh Doty, DO 8 [facility] [address] [place] [address] PCP - General Family Medicine 11/04/22 Lizzie Alves PA-C [address] [place] [address], [facility] [address] [place] [address] Hospitalist Cardiology 05/27/23 Kaushik Mariscal MD 14[address] [facility] [address] [place] [address] Religion Teacher Electrophysiology 11/18/23 documented as of this encounter
--- OUTSIDE RECORDS SUMMARY | 2024-08-23 13:38 | XMS_ITS | Encounter Summary ---
Author Organization [employer] ([place], [place], [place], [place]) Address [address] [place] [address] Care Team Providers Care Linux Server Administrator Name Role Phone Lalitha Linh Delilah DAVIS Primary Care Provider [phone] Lizzie Alves PA-C Unavailable [phone] Kaushik Mariscal MD Unavailable Encounter Details Date Type Department Care Team (Late st Contact Info) Description 07/19/2021 Transcribed Document [facility] [place] Family Medicine [address] [place] [address] ProviderChad MD [address] [place] [address] Social History Tobacco Use Types Packs/Day Years Used Date Smoking Tobacco: Never Assessed Family and Community Support Answer Geremias e Recorded Help with Day to Day Activities Not on file 02/27/2023 Feeling Lonely or Isolated Not on file 02/27 Educational Attainment Answer Date Mendez rded Speak language other than [place] Islander at home Not on file 02/27/2023 [...] Conversion Note - Historical ProviderMD - 07/19/2021 9:24 AM CDT Central Line Checklist Entered On: 07/19/2021 9:27 EDT Performed On: 07/19/2021 9:24 EDT by Tao Robbins RN Central Line Checklist History and Physical on Chart : Yes Central Line Insertion Facility : [facility] Central Line Insertion Start Date/Time : 07/19/2021 9:02 EDT Central Catheter Type : Power injection PICC Central Line Lot Number : [id number] Central Line Vessel Cannulated : Basilic vein [...] : Yes Nurse Notified Name : Yvette Villagmoez RN Broughton, Ruby, SARAH - 07/19/2021 9:24 EDT Electronically signed by Rekha [facility] Conversion Inspector Aligning Cerner at 05/27/2022 9:12 PM CDT documented in this encounter Plan of Treatment Not on file documented as of this encounter Visit Diagnoses Not on filedocumented in this encounter Care Teams Linux Server Administrator Relationship Specialty Start Date End Date Linh Doty DO 8 [facility] [address] [place] [address] PCP - General Family Medicine 11/04/22 Lizzie Alves PA-C 1401 [facility] [place] [address] [place] [address] Hospitalist Cardiology 05/27/23 Kaushik Mariscal MD 14[address] [facility] [address] [place] [address] Eyelet Operator Electrophysiology 11/18/23 documented as of this encounter
--- OUTSIDE RECORDS SUMMARY | 2024-08-23 13:38 | XMS_ITS | Encounter Summary ---
Author Organization [employer] ([place], [place], [place], [place]) Address [address] [place] [address] Care Team Providers Care Arts And Crafts Instructor Name Role Phone Lalitha Linh Delilah DAVIS Primary Care Provider [phone] Lizzie Alves PA-C Unavailable [phone] Kaushik Mariscal MD Unavailable Encounter Details Date Type Department Care Team (Late st Contact Info) Description 07/19/2021 Transcribed Document [facility] [place] [address] [place] [address] ProviderChad MD [address] [place] [address] Social History Tobacco Use Types [...] Conversion Note - Historical ProviderMD - 07/19/2021 9:22 AM CDT UM Authorization Entered On: 07/19/2021 9:27 EDT Performed On: 07/19/2021 9:22 EDT by Khushi Jones Rn-Utilization Review Primary Insurance Authorization Authorization and Policy Numbers : Insurance 1 Health Plan: [employer] MANAGED MEDICARE Policy Number: [id number] Authorization Number: Insurance Primary Name : [facility] MANAGED MEDICARE Policy Number: [id number] Authorization Status-Primary : Awaiting callback Reference Number-Primary : [id number] Authorized Service Begin Date-Primary : 07/16/2021 EDT Authorization Comments-Primary : UNDER REVIEW PER PORTAL Historical Authorization Comments-Primary : Comment 1: CLINICAL FAXED VIA [employer] (Khushi Jones Rn-Utilization Review 07/17/2021 15:22) Comment 2: REF# PER [facility]. CLINICAL FAXED VIA [employer] (Khushi Jones Rn-Utilization Review 07/17/2021 15:17) Khushi Jones Rn-Utilization Review - 07/19/2021 9:22 EDT documented in this encounter Plan of Treatment Not on file documented as of this encounter Visit Diagnoses Not on filedocumented in this encounter Care Teams Arts And Crafts Instructor Relationship Specialty Start Date End Date Linh Doty, DO 8 [facility] [address] [place] [address] PCP - General Family Medicine 11/04/22 Lizzie Alves PA-C 14[address] [facility], [facility] [address] [place] [address] Hospitalist Cardiology 05/27/23 Kaushik Mariscal MD [address] [facility] [address] [place], [place] [id number] Construction Sales Representative Electrophysiology 11/18/23 documented as of this encounter
--- OUTSIDE RECORDS SUMMARY | 2024-08-23 13:38 | XMS_ITS ---
Author Organization [place] Care Team Providers Care Crane Engineer Name Role Phone Dodie Cummins Unavailable Unavailable Ludivina Retana Unavailable Unavailable Wen Chadwick Unavailable Unavailable Julieta Guardado Unavailable Allergies and adverse reactions No Known Allergies Care Team Name Role Address Phone Organization Dates Ludivina Retana PCP [address] [place] [address], [facility] (Office): [place] 06/05/2023 - 06/22/2023 Dodie Cummins [address] (Office): : [place] 06/05/2023 - 06/22/2023 Wen Chadwick [address] [place] [address] 06/05/2023 - 06/22/2023 Julieta Guardado [address] [place] [address] (Office): : [place] 06/05/2023 - 06/22/2023 Immunizations Immunization Status Vaccine Details Vaccine Code CodeSystem Date Notes TB 2 Step Mantoux Skin Test completed tuberculin skin test; unspecified formulation lotNumber: [id number] expiry: 01/09/2025 Mfg: Aplisil 5 TU/0.1 ML//o Given 0.1 ml Left Forearm subcutaneously Step 2 of Multi-step with next step required 98 CVX created date: 06/13/2023 consent date: 06/13/2023 administere d date: 06/12/2023 TB 2 Step Mantoux Skin Test completed tuberculin skin test; unspecified formulation lotNumber: [id number] expiry: 01/09/2025 Mfg: Apisol 5tu/0.1ml Given 0.1 [...] CodeSystem Concern Status 1 UNSPECIFIED CONVULSIONS 06/08/[address] active 2 ACUTE AND CHRONIC RESPIRATORY FAILURE WITH HYPOXIA 06/05/[address] active 3 ACUTE ON CHRONIC COMBINED SYSTOLIC (CONGESTIVE) AND DIASTOLIC (CONGESTIVE) HEART FAILURE 06/05/[address] active 4 ALTERED MENTAL STATUS, UNSPECIFIED 06/05/[address] active 5 CARDIOGENIC SHOCK 06/05/[address] active 6 CARDIOMYOPATHY, UNSPECIFIED 06/05/[address] active 7 DEFECTS IN THE COMPLEMENT SYSTEM 06/05/[address] active 8 DIFFICULTY IN WALKING, NOT ELSEWHERE CLASSIFIED 06/05/[address] active 9 ESSENTIAL (PRIMARY) HYPERTENSION 06/05/[address] active 10 HEART FAILURE, UNSPECIFIED 06/05/[address] active 11 ISCHEMIC CARDIOMYOPATHY 06/05/[address] active 12 LEFT VENTRICULAR FAILURE, UNSPECIFIED 06/05/[address] active 13 NICOTINE DEPENDENCE, CIGARETTES, UNCOMPLICATED 06/05/[address] active 14 OTHER ABNORMALITIES OF GAIT AND MOBILITY 06/05/[address] active 15 OTHER SPECIFIED DISORDERS INVOLVING THE IMMUNE MECHANISM, NOT ELSEWHERE CLASSIFIED 06/05/[address] active 16 PRESENCE OF AUTOMATIC (IMPLANTABLE) CARDIAC DEFIBRILLATOR 06/05/[address] active 17 RESPIRATORY DISORDERS IN DISEASES CLASSIFIED ELSEWHERE 06/05/[address] active 18 RESPIRATORY FAILURE, UNSPECIFIED WITH HYPOXIA 06/05/[address] active 19 TYPE 2 DIABETES MELLITUS WITHOUT COMPLICATIONS 06/05/[address] active 20 UNSPECIFIED SEQUELAE OF OTHER CEREBROVASCULAR DISEASE 06/05/[address] active 21 UNSPECIFIED SYSTOLIC (CONGESTIVE) HEART FAILURE 06/05/[address] active 22 UNSTEADINESS ON FEET 06/05/[address] active 23 VENOUS INSUFFICIENCY (CHRONIC) (PERIPHERAL) 06/05/[address] active 24 WEAKNESS 06/05/[address] active Reason for Referral No Reasons for Referral Entered Social History Social History Observation Description Start Date End Date Code Code System Current Smoking Status Tobacco smoking consumption unknown 301610262 SNOMED CT Sex Assigned At Female 1965 71085-9 [facility] Gender Identity Vital Signs Code Code System Vitals Name Values and Units Timing Information 24822-6 [facility] Pain Level Value=0.0 06/21/2023 64477-8 [facility] O2 % BldC Oximetry Value=94.0 Units= % 06/21/2023 9279-1 [facility] Respiratory Rate Value=18.0 Units=/m in 06/21/2023 8462-4 [facility] Blood Pressure-Diastolic Value=62 Un its=mmHg 06/21/2023 8480-6 [facility] Blood Pressure-Systolic Dexfv=037 Un its=mmHg 06/21/2023 8310-5 [facility] Body Temperature Value=97.2 Units= F 06/21/2023 8867-4 [facility] Heart rate Value=68.0 Units=/min 01/2024 2339-0 [facility] Blood Sugar Gnxhm=641.0 Units=mg/dL 06/13/2023 11900-7 [facility] Weight Fpjem=880.8 Units=Lbs 03/2023 8302-2 [facility] Height Value=67.0 Units=Inches 06/06/2023
--- OUTSIDE RECORDS SUMMARY | 2024-08-23 13:38 | XMS_ITS | Encounter Summary ---
Author Organization [employer] ([place], [place], [place], [place]) Address [address] [place] [address] Care Team Providers Care Military Communications Specialist Name Role Phone Lalitha Linhkarthikeyan Mazariegos DO Primary Care Provider [phone] Lizzie Alves PA-C Unavailable [phone] Kaushik Mariscal MD Unavailable Encounter Details Date Type Department Care Team (Late st Contact Info) Description 07/19/2021 Transcribed Document [facility] [place] [address] [place] [address] ProviderChad MD [address] [place] [address] Social History Tobacco Use [...] Conversion Note - Historical ProviderMD - 07/19/2021 5:12 PM CDT Patient: LENA MENDOZA Age: 55 [...] with bloody drainage. Patient was admitted to [facility] on 07[facility]16/2021. Post generator change, [...] (Rocephin) - 2 Gram, IV Piggyback, Inj, [id number], infuse over 30 Minute(s), Routine DAPTOmycin + Sodium Chloride 0.9% intravenous solution 50 mL - 400 mg, IV Piggyback, Inj, [id number], infuse over 30 Minute(s), Routine Anticoagulant alteplase [...] Temp 98 (JUL 19 15:00) 97.6 (JUL 19 05:56) 99.3 (JUL 19 02:00) Mon HR 78 (JUL 19 15:00) 75 (JUL 19 05:56) 87 (JUL 18:15) Resp Rate 18 (JUL 19 05:56) 15 (JUL 19 02:00) 18 (JUL 18:15) SBP 100 (JUL 19 15:00) 99 (JUL 19 05:56) 110 (JUL 19 02:00) DBP 60 (JUL 19:00) 60 (JUL 19:56) 67 (JUL 18:15) MAP 73 (JUL 19 15:00) 72 (JUL 19 02:00) 78 (JUL 18 22:15) SpO2 94 (JUL 19:00) 94 (JUL 19:00) 98 (JUL 18:) General: Alert and oriented, [...] Normal strength, No tenderness. Integumentary: Warm, Dry, [place], No pallor, No rash, ICD site left [...] 7.3 (MADELEINE 10) 6.8 (MADELEINE 09) 7.0 (JUL 17) 7.6 (JUL 16) ALB L 3.2 (JUL 19) L 3.2 (JUL 18) L 3.3 (JUL 17) 3.5 (JUL 16) , ACC: [id number] ORDER: Culture Wound and Stain DATE: 07/17/2021 08:34 SOURCE: Wound SITE: Chest L Reports Pre 07/18/2021 06:24 No growth GS 07/17/2021 14:09 No cells seen No organisms seen. == [facility]: [id number] ORDER: Culture Blood DATE: 07/16/2021 12:39 SOURCE: Blood SITE: Reports Pre 07/19/2021 16:01 No growth at 3 days. Pre 07/18/2021 16:01 No growth at 2 days. Pre 07/17/2021 16:02 No growth at 1 day. Pre 07/17/2021 06:01 Culture less than 24 Hrs old == [facility]: [id number] ORDER: Culture Blood DATE: 07/16/2021 12:39 SOURCE: [...] Weekly PICC dressing changes. Fax orders to [id number], call [phone] with final arrangements. Hold rosuvastatin while on daptomycin to decrease risk of rhabdomyolysis. Arrange for follow-up with me in 1 week post discharge. documented in this encounter Plan of Treatment Not on file documented as of this encounter Visit Diagnoses Not on filedocumented in this encounter Care Teams Military Communications Specialist Relationship Specialty Start Date End Date Linh Doty, DO 8 [facility] [address] [place] [address] PCP - General Family Medicine 11/04/22 Lizzie Alves PA-C 1401 [facility], [facility] [address] [place] [address] Hospitalist Cardiology 05/27/23 Kaushik Mariscal MD 1401 [facility] [address] [place] [address] Academic Affairs Vice President Electrophysiology 11/18/23 documented as of this encounter
--- OUTSIDE RECORDS SUMMARY | 2024-08-23 13:38 | XMS_ITS | Encounter Summary ---
Author Organization [employer] ([place], [place], [place], [place]) Address [address] [place] [address] Care Team Providers Care Battery Repairer Name Role Phone Lalitha Linh Delilah DAVIS Primary Care Provider [phone] Lizzie Alves PA-C Unavailable [phone] Kaushik Mariscal MD Unavailable Encounter Details Date Type Department Care Team (Late st Contact Info) Description 07/19/2021 Transcribed Document [facility] [place] [address] [place] [address] ProviderChad MD [address] [place] [address] Social History Tobacco Use Types Packs/Day Years Used Date Smoking Tobacco: Never Assessed Family and Community Support Answer Geremias e Recorded Help with Day to Day Activities Not on file 02/27/2023 Feeling Lonely or Isolated Not on file 02/27 Educational Attainment Answer Date Mendez rded Speak language other than Tajik at home Not on file 02/27/2023 Want [...] Conversion Note - Historical ProviderMD - 07/19/2021 1:56 PM CDT UM Authorization Entered On: 07/19/2021 13:58 EDT Performed On: 07/19/2021 13:56 EDT by Khushi Jones Rn-Utilization Review Primary Insurance Authorization Authorization and Policy Numbers : Insurance 1 Health Plan: [employer] MANAGED MEDICARE Policy Number: [id number] Authorization Number: Insurance Primary Name : [employer] MANAGED MEDICARE Policy Number: [id number] Authorization Status-Primary : Admit approved Reference Number-Primary : [id number] Authorization Number-Primary : [id number] Number of Days Authorized-Primary : 6 Day(s) Authorized Service Begin Date-Primary : 07/16/2021 EDT Authorized Service End Date-Primary : 07/22/2021 EDT Authorization Comments-Primary : PER PORTAL IP APPROVED FOR 07/16 UP TO BUT NOT INCLUDING 07/22 Historical Authorization Comments-Primary : Comment 1: UNDER REVIEW PER [employer] PORTAL (Khushi Jones, Rn-Utilization Review 07/19/2021 09:22) Comment 2: CLINICAL FAXED VIA [employer] (Khushi Jones Rn-Utilization Review 07/17/2021 15:22) Comment 3: REF# PER [facility]ME. CLINICAL FAXED VIA [employer] (Khushi Jones Rn-Utilization Review 07/17/2021 15:17) Khushi Jones Rn-Utilization Review - 07/19/2021 13:56 EDT documented in this encounter Plan of Treatment Not on file documented as of this encounter Visit Diagnoses Not on filedocumented in this encounter Care Teams Battery Repairer Relationship Specialty Start Date End Date Linh Doty, DO [address] [place] [address] PCP - General Family Medicine 11/04/22 Lizzie Alves PA-C [address], [facility] [address] [place] [address] Hospitalist Cardiology 05/27/23 Kaushik Mariscal MD 1401 [facility] [place] [address] Certified Emergency Vehicle Technician Electrophysiology 11/18/23 documented as of this encounter
--- OUTSIDE RECORDS SUMMARY | 2024-08-23 13:38 | XMS_ITS | Encounter Summary ---
Author Organization [employer] ([place], [place], [place], [place]) Address [address] [place] [address] Care Team Providers Care Pinmaker Name Role Phone Lalitha Linhkarthikeyan Mazariegos DO Primary Care Provider Lizzie Alves PA-C Unavailable [phone] Kaushik Mariscal MD Unavailable Encounter Details Date Type Department Care Team (Late st Contact Info) Description 07/19/2021 Transcribed Document [facility] [address] [id number] Yanick Torres MD [address] [place] [address] [place] [address] Social History Tobacco Use Types Packs/Day Years Used Date Smoking Tobacco: Never Assessed Family and Community Support Answer Geremias e Recorded Help with Day to Day Activities Not on file 02/27/2023 Feeling Lonely or Isolated Not on file 02/27 Educational Attainment Answer Date Mendez rded Speak language other than Omani at home Not on file 02/27/2023 Want [...] or leukocytosis remains on antibiotics per ID 6/10 patient seen and examined today offers no [...] mg, 8 mL, 116 mL/Hr, IV Piggyback, [id number] Florastor: 250 mg, Oral, BID Lasix: 20 mg, Oral, Daily MiraLax: 17 Gram, Oral, Daily, PRN: Constipation Normal Saline Flush: 10 mL, IntraCATHeter, Q12H Rocephin: 2 Gram, 100 mL/Hr, IV Piggyback, [id number] Roxicodone: 5 mg, Oral, Q4H, PRN: Pain [...] Refill(s) fluticasone 50 mcg/inh nasal spray: 2 [place], Nasal, Daily, PRN: Nasal Congestion, 16 Gram, [...] BID fluticasone 50 mcg/inh nasal spray 2 [place], PRN, Nasal, Daily folic acid 1 mg [...] Oral, BID cefTRIAXone 2 Gram, IV Piggyback, [id number] DAPTOmycin + NaCl 0.9% 50 mL 400 mg 8 mL, IV Piggyback, S44WJxc ergocalciferol 50,000 unit cap 50,000 Units 1 [...] At risk for sleep apnea / IMO [id number] / Confirmed High cholesterol / SNOMED CT 89361490 / Confirmed Canceled: At risk for sleep apnea / IMO 79420039 Canceled: COPD (chronic obstructive pulmonary disease) / SNOMED CT 40426659 Canceled: HTN (hypertension) / SNOMED CT 9084838675, Active Problems (12) Arteriosclerosis At risk for sleep apnea Cardiomyopathy Chronic CHF Current smoker Gout High cholesterol History of MD (myocardial infarction) Intermittent claudication Pacemaker PAD (peripheral [...] gallop, S1+ S2 No S3 or S4 Bath.. Gastrointestinal: Soft, Non-tender, Non-distended, Normal bowel sounds. [...] Weekly PICC dressing changes. Fax orders to [id number], marivel Hold rosuvastatin while on daptomycin to decrease risk of rhabdomyolysis. 07/20 documented in this encounter Plan of Treatment Not on file documented as of this encounter Visit Diagnoses Not on filedocumented in this encounter Care Teams Pinmaker Relationship Specialty Start Date End Date Linh Doty, 8 [facility] [address] [place] [address] PCP - General Family Medicine 11/04/22 Lizzie Alves PA-C 1401 [facility], [facility] [address] [place] [address] Hospitalist Cardiology 05/27/23 Kaushik Mariscal MD 1401 [facility] [address] [place] [address] Aviation Technical Systems Specialist Electrophysiology 11/18/23 documented as of this encounter
--- OUTSIDE RECORDS SUMMARY | 2024-08-23 13:38 | XMS_ITS | Encounter Summary ---
Author Organization [employer] ([place], [place], [place], [place]) Address [address] [place] [address] Care Team Providers Care Cane Furniture Maker Name Role Phone Lalitha Linhkarthikeyan Mazariegos DO Primary Care Provider [phone] Lizzie Alves PA-C Unavailable [phone] Kaushik Mariscal MD Unavailable Encounter Details Date Type Department Care Team (Late st Contact Info) Description 07/19/2021 Transcribed Document [facility] [place] [address] [place] [address] ProviderChad MD [address] [place] [address] Social History Tobacco Use Types Packs/Day Years Used Date Smoking Tobacco: Never Assessed Family and Community Support Answer Geremias e Recorded Help with Day to Day Activities Not on file 02/27/2023 Feeling Lonely or Isolated Not on file 02/27 Educational Attainment Answer Date Mendez rded Speak language other than Serbian at home Not on file 02/27/2023 Want [...] Conversion Note - Historical ProviderMD - 07/19/2021 1:35 PM CDT On Going Discharge Planning Entered On: 07/19/2021 13:36 EDT Performed On: 07/19/2021 13:35 EDT by Mayra Vann Hoisting Pile Driving Engineer Rn Care Management Progress Note Discharge Arrangements [...] Attend Multidisciplinary Rounds? : Yes Mayra Vann Hoisting Pile Driving Engineer Rn - 07/19/2021 13:35 EDT Narrative Progress Note Narrative Progress Note : hd 3 elos 5 low rar patient is set up with [employer], [employer] to teach patient abx administration saturday 07/22. Per EP, plan to dc patient saturday 07/22. Lisa for HH. Historical Progress Note : hd 2 low rar patient has orders from ID r/t iv abx and picc care but patient has no orders for PICC placement at this time, CM has reached out to ID. home abx orders sent to [facility]. patient will also need hh dcp- home with hh and iv abx Mayra Vann Hoisting Pile Driving Engineer Rn - 07/18/21 16:10:37 Mayra Vann Hoisting Pile Driving Engineer Rn - 07/19/2021 13:35 EDT documented in this encounter Plan of Treatment Not on file documented as of this encounter Visit Diagnoses Not on filedocumented in this encounter Care Teams Cane Furniture Maker Relationship Specialty Start Date End Date Linh Doty DO 8 [facility] [address] [place] [address] PCP - General Family Medicine 11/04/22 Lizzie Alves PA-C 1401 [facility], [facility] [address] [place] [address] Hospitalist Cardiology 05/27/23 Kaushik Mariscal MD 1401 [facility] [address] [place] [address] Key Worker Electrophysiology 11/18/23 documented as of this encounter
--- OUTSIDE RECORDS SUMMARY | 2024-08-23 13:38 | XMS_ITS | Data Portability ---
Author Organization [place] - [facility] & JAMES Faria ADMIN Address [address] [place] [address] Care Team Providers Care Email Engineer Name Role Phone PHONG WILLIAM Referring Provider [...] __ __ __ __ __ _ GISELLE: [id number] I have reviewed patient's GISELLE report prior [...] the risk of withdrawal and the differences. [email or web address] Not available 08/26/2022 09:40:08 09/29/2022 09/29/2022 Mrs. [...] __ __ __ __ __ _ GISELLE: [id number] I have reviewed patient's GISELLE report prior [...] the risk of withdrawal and the differences. [email or web address] Not available 09/29/2022 16:19:40 11/24/2022 11/24/2022 Mrs. [...] reports [facility] [place] [facility] which she has been unable to do for a long time. She is complaining of thoracic and lumbar pain with BLE radicular pain to the calf. No trauma or injury. She has had this pain long filler cigar roller machine. It is worse with standing and walking, [...] __ __ __ __ __ _ GISELLE: [id number] I have reviewed patient's GISELLE report prior [...] the risk of withdrawal and the differences. [email or web address] Not available 11/24/2022 16:34:20 01/12/2023 01/12/2023 Telehealth visit is being conducted from [facility] [place] [address]. This was a real-time clinical encounter over [[email or web address] ]. Consent was obtained to engage in [...] or injury. She has had this pain long filler cigar roller machine. It is worse with standing and walking, [...] __ __ __ __ __ _ GISELLE: 79821078 I have reviewed patient's GISELLE report prior [...] Plavix managed by cardiology (Dr. Mariscal at [facility]). The patient has a history of COPD [...] informed the patient that the goal of CKM will be to incorporate a multi-modal approach [...] pain: The patient mentions falling around New 's and has not [...] __ __ __ __ __ _ GISELLE: [id number] I have reviewed patient's GISELLE report prior [...] recorded. Lab drug screen, urine 2023 024 [email or web address] [facility] [address] [place] [address] Dr [place], [place], [address], 4 12:12:09 Referral None recorded. Procedures injection , single, diagnosti c or therapeut ic substance , lumbar, sacral (PROC) - 95970, LEI L5-S1 2023 024 [email or web address] Justin Andres, [address] [place], [address], 4 09:24:03 epidural steroid injection , cervical interlami yg (PROC) - 87469, C7-T1 2022 023 [email or web address] [id number] Not available 3 08:27:26 epidural steroid injection , cervical interlami yg (PROC) - 57552, C7-T1 2022 023 [email or web address] Not available 3 13:39:39 Surgeries None recorded. Imaging XR, lumbar spine, 2 view 2022 023 [facility] (Scheduling), [address] [place], [address], 3 16:10:33 XR, thoracic spine, 2 view 2022 023 [email or web address] [facility] (Scheduling), [address] [place], [address], 3 11:03:12 Medication Orders gabapenti n 600 mg tablet 2023 024 [facility], [address] [place] [address] [address] [place], [id number], 4 16:34:26 hydrocodo ne 5 mg-acetam inophen 325 mg tablet 2023 024 [facility], [address] [place] [address] [address] [place], [id number], 4 15:59:57 hydrocodo ne 5 mg-acetam inophen 325 mg tablet 2022 023 [facility], [address] [place] [address] [address], [place], [id number], 3 16:06:54 hydrocodo ne 5 mg-acetam inophen 325 mg tablet 2022 023 [facility], [address] [place] [address] [address], [place], [id number], 4 16:06:54 gabapenti n 600 mg tablet 2022 023 [facility], [address] [place] [address] [address], BR[place]EN [place], [id number], 4 16:36:42 hydrocodo ne 5 mg-acetam inophen 325 mg tablet 2022 023 [facility], [address] [place] [address] [address] [place], [id number], 3 13:07:24 hydrocodo ne 5 mg-acetam inophen 325 mg tablet 2022 023 [facility], [address] [place] [address] [address], BRADEN [place], [id number], 3 16:15:43 hydrocodo ne 5 mg-acetam inophen 325 mg tablet 2022 023 [facility], [address] [place] [address] [address] [place], [id number], 3 16:35:06 hydrocodo ne 5 mg-acetam inophen 325 mg tablet 2022 023 [facility], [address] [place] [address] [address], [id number], 14:33:16 gabapenti n 600 mg tablet 2022 023 [facility], [address] [place] [address] [place], [id number], 16:58:13 Patient TargetsNo targets recorded. Patient InstructionsNo instructions recorded. Reason for Referral None Reported. Results Created Date Observation Date Name Description Value Unit Range Abnormal Flag Note LastModifiedBy Organization Detail LastModifiedTime 03/30/1903/30/2023 drug scree n, urine Amphetamines negati ve Not Available [facility] [address] [place] [address] [place], [address], 03/30/2023 15:15:37 03/30/19 24 03/30/2023 drug scree n, urine Barbiturates negati ve Not Available [facility] [address] [place] [address] [place], [address], 03/30/2023 15:15:37 03/30/19 24 03/30/2023 drug scree n, urine Buprenorphin e negati ve Not Available [facility] [address] [place] [address] [place], [address], 03/30/2023 15:15:37 03/30/19 24 03/30/2023 drug scree n, urine Benzodiazepi dion negati ve Not Available [facility] [address] [place] [address] [place], [address], 03/30/2023 15:15:37 03/30/19 24 03/30/2023 drug scree n, urine Cocaine negati ve Not Available [facility] [address] [place] [address] [place], [address], 03/30/2023 15:15:37 03/30/19 24 03/30/2023 drug scree n, urine Methamphetam ine negati ve Not Available [facility] [address] [place] [address] Dr Franks, [place], [address], 03/30/2023 15:15:37 03/30/19 24 03/30/2023 drug scree n, urine Ecstasy negati ve Not Available [facility] [address] [place] [address] [place], [address], 03/30/2023 15:15:37 03/30/19 24 03/30/2023 drug scree n, urine Methadone negati ve Not Available [facility] [address] [place] [address] [place], [address], 03/30/2023 15:15:37 03/30/19 24 03/30/2023 drug scree n, urine Morphine/ Opiates negati ve Not Available [facility] [address] [place] [address] [place], [address], 03/30/2023 15:15:37 03/30/19 24 03/30/2023 drug scree n, urine Phencyclidin e negati ve Not Available [facility] [address] [place] [address] [place], [address], 03/30/2023 15:15:37 03/30/19 24 03/30/2023 drug scree n, urine Oxycodone negati ve Not Available [facility] [address] [place] [address] [place], [address], 03/30/2023 15:15:37 03/30/19 24 03/30/2023 drug scree n, urine Marijuana negati ve Not Available [facility] [address] [place] [address] [place], [address], 03/30/2023 15:15:37 Result Notes None recorded. Problems Name Problem SNOMED Code Status Onset Date Resolution Date Notes Provider Name and Address Organization Details Recorded Time Bilateral osteoarthr itis of knees 4225060855741 07 Active 2021 Not Available [facility] 4 19:02:55 Pain of bilateral knee regions 9294470005477 02 Active 2021 Not Available [facility] 4 19:02:55 Low back pain 561115815 Active 2021 Not Available [facility] 4 19:02:55 Chronic obstructiv e pulmonary disease 46492771 Active 2021 Not Available [facility] 4 19:02:55 Nicotine dependence 61038157 Active 2021 Not Available [facility] 4 19:02:55 Cardiac pacemaker procedure Active 2021 Not Available [facility] 4 19:02:55 Radicular pain 86460489 Active 2021 Not Available [facility] 4 19:02:55 Neck pain 91458590 Active 2022 Not Available [facility] 4 19:02:55 Pain in right arm 127358570 Active 2022 Not Available [facility] 4 19:02:55 Neuropathi c pain 696005294 Active 2022 Not Available [facility] 4 19:02:55 Spinal stenosis in cervical region 06238019 Active 2022 Not Available [facility] 4 19:02:55 Stenosis of spinal canal due to interverte bral disc 815628660 Active 2023 Vicenta Raza null, [place] - [facility] & [place] 4 15:34:56 Opioid dependence 50183368 Active 2023 Vicenta Raza null, [place] - [facility] [place] & [place] 4 15:35:32 Fall Active 2023 Vicenta Ry null, [place] - [facility] [place] & [place] 4 15:39:33 Problem Notes None recorded. Medical [...] blood by Pulse oximetry Heart rate Systolic And Diastolic Provider Name and Address Organization Details Last Updated DateTime 4 167.64 cm 25.2 kg/m2 99575.4 1 g 98 [degF] 92 % 92 % 100 /min 167/106 mm[Hg] Kelsi Grossman [facility] & [place] 4 14:20:33 Date Recorded Body height Body mass index (BMI) Body weight Body temperature Oxygen saturation Oxygen saturation in Arterial blood by Pulse oximetry Heart rate Respiratory rate Systolic And Diastolic Provider Name and Address Organization Details Last Updated DateTime 3 167.64 cm 22.9 kg/m2 87281.1 2 g 97.7 [degF] 84 % 84 % 92 /min 24 /min 129/83 mm[Hg] Michaela FELICIANO [facility] & [place] 3 16:13:48 Date Recorded Body height Body mass index (BMI) Body weight Body temperature Oxygen saturation Oxygen saturation in Arterial blood by Pulse oximetry Heart rate Systolic And Diastolic Provider Name and Address Organization Details Last Updated DateTime 3 167.64 cm 22.9 kg/m2 30955.4 g 97.4 [degF] 90 % 90 % 98 /min 146/94 mm[Hg] Martha FELICIANO [facility] & [place] 3 15:22:01 Date Recorded Body height Oxygen saturation Oxygen saturation in Arterial blood by Pulse oximetry Body temperature Body mass index (BMI) Body weight Provider Name and Address Organization Details Last Updated DateTime 3 167.64 cm 85 % 85 % 98.2 [degF] 22.8 kg/m2 70840.5 2 g Martha FELICIANO [facility] & [place] 3 16:01:38 Date Recorded Body height Provider Name an d Address Organization Details Last Updated DateTime 01/12/2023 167.64 cm Kelsi Savage [facility] & [place] 01/12/2023 10:51:45 Social History None recorded. Functional Status None recorded. Mental Status None recorded. Family History Nothing Reported. Medical History No medical history recorded. Gynecological HistoryNo gynecological history recorded. Obstetrics History GPAL:G 0 P 0 0 0 0 Past Encounters Encounter ID Performer Location Encounter Start Date Encounter Closed Date Diagnosis/Indication Diagnosis SNOMED-CT Code Diagnosis ICD10 Code Diagnosis Note [id number] Justin Andres MD [facility] [address] [address] 11/19/2021 11:47:34 11/19/2021 12:32:16 Bilateral osteoarthritis of knees 3684996903 33720 M17.0 Pain of bi lateral knee regions 5142562164 68493 M25.561 M25.562 Low back pain 384653822 M54.50 Radicular pain 07849357 M54.10 [id number] Justin Andres MD [facility] [address] [place] [address] [place] [address] 12/16/2021 14:22:03 12/16/2021 16:13:15 Bilateral osteoarthritis of knees 9758665580 31175 M17.0 Pain of bi lateral knee regions 5647356411 55079 M25.561 M25.562 Low back pain 225929060 M54.50 Radicular pain 44453773 M54.10 [id number] Justin Andres MD [facility] [address] [place] [address] [place] [address] 01/27/2022 14:39:34 01/27/2022 14:41:02 Bilateral osteoarthritis of knees 5910526562 35310 M17.0 Pain of bi lateral knee regions 8714134535 74989 M25.561 M25.562 Low back pain 582073672 M54.50 Radicular pain 83608498 M54.10 [id number] Justin Andres MD [facility] [address] [place] [address] [place] [address] 02/25/2022 08:32:14 02/25/2022 09:58:50 Bilateral osteoarthritis of knees 1386358637 49676 M17.0 Pain of bi lateral knee regions 5732144466 97995 M25.561 M25.562 Low back pain 853931325 M54.50 Radicular pain 92728797 M54.10 [id number] Justin Andres MD [facility] [address] [place] [address] [place] [address] 03/17/2022 12:17:51 03/17/2022 12:22:07 Bilateral osteoarthritis of knees 5884763721 05943 M17.0 Pain of bi lateral knee regions 2633316841 30287 M25.561 M25.562 Low back pain 562630214 M54.50 Radicular pain 51695001 M54.10 [id number] Justin Andres MD [facility] [address] [place] [address] [place] [address] 05/12/2022 11:37:32 05/12/2022 12:17:04 Bilateral osteoarthritis of knees 2469747560 23642 M17.0 Pain of bi lateral knee regions 2278651985 91232 M25.561 M25.562 Low back pain 787006235 M54.50 Radicular pain 86318064 M54.10 Neck pain 04421371 M54.2 Pain in right arm 003104 004 M79.601 Neuropathic pain 7961794 09 M79.2 [id number] Justin Andres MD [facility] [address] [place] [address] [place] [address] 06/09/2022 09:26:46 06/09/2022 11:32:40 Bilateral osteoarthritis of knees 8650461155 47283 M17.0 Pain of bi lateral knee regions 3829279530 99846 M25.561 M25.562 Low back pain 119143954 M54.50 Radicular pain 66453512 M54.10 Neck pain 46650914 M54.2 Pain in right arm 748825 004 M79.601 Neuropathic pain 7337733 09 M79.2 [id number] Justin Andres MD [facility] [address] [place] [address] [place] [address] 07/14/2022 15:03:41 07/14/2022 16:33:25 Bilateral osteoarthritis of knees 5677998509 30209 M17.0 Pain of bi lateral knee regions 6087433487 41670 M25.561 M25.562 Low back pain 296492090 M54.50 Radicular pain 60508213 M54.10 Neck pain 57834652 M54.2 Pain in right arm 817336 004 M79.601 Neuropathic pain 3732874 09 M79.2 [id number] Justin Andres MD [facility] [address] [place] [address] [place] [address] 08/25/2022 15:06:33 08/27/2022 09:08:30 Bilateral osteoarthritis of knees 7402971859 18205 M17.0 Pain of bi lateral knee regions 7754004768 04326 M25.561 M25.562 Low back pain 830559497 M54.50 Radicular pain 83099579 M54.10 Neck pain 06877154 M54.2 Pain in right arm 426149 004 M79.601 Neuropathic pain 7314108 09 M79.2 Spinal davi nosis in cervical region 98600540 M99.51 [id number] Justin Andres MD [facility] [address] [place] [address] [place] [address] 09/29/2022 14:45:52 09/29/2022 15:26:15 Bilateral osteoarthritis of knees 5207640018 73239 M17.0 Pain of bi lateral knee regions 5798081206 43084 M25.561 M25.562 Low back pain 623674589 M54.50 Radicular pain 20514016 M54.10 Neck pain 09129820 M54.2 Pain in right arm 119954 004 M79.601 Neuropathic pain 4058529 09 M79.2 Spinal davi nosis in cervical region 84674879 M99.51 [id number] Justin Andres MD [facility] [address] [place] [address] [place] [address] 11/24/2022 15:13:54 11/24/2022 16:10:34 Bilateral osteoarthritis of knees 9424507336 26027 M17.0 Pain of bi lateral knee regions 4487126676 38286 M25.561 M25.562 Low back pain 812308927 M54.50 Radicular pain 41778649 M54.10 Neck pain 15881856 M54.2 Pain in right arm 328726 004 M79.601 Neuropathic pain 2517750 09 M79.2 Spinal davi nosis in cervical region 02174497 M99.51 Stenosis o f spinal canal due to intervertebral disc 961712531 M99.59 [id number] Justin Andres MD [facility] [address] [place] [address] 01/12/2023 10:48:01 01/12/2023 12:59:31 Bilateral osteoarthritis of knees 4561457590 35407 M17.0 Pain of bi lateral knee regions 7638522444 26984 M25.561 M25.562 Low back pain 275653882 M54.50 Radicular pain 60635210 M54.10 Neck pain 32741054 M54.2 Pain in right arm 510929 004 M79.601 Neuropathic pain 5660823 09 M79.2 Spinal davi nosis in cervical region 39975013 M99.51 Stenosis o f spinal canal due to intervertebral disc 477392870 M99.59 [id number] Justin Andres MD [facility] [address] [place] [address] 03/30/2023 13:08:28 03/30/2023 14:22:53 Bilateral osteoarthritis of knees 0952137696 48580 M17.0 Pain of bi lateral knee regions 2146648449 10343 M25.561 M25.562 Low back pain 411963394 M54.50 Radicular pain 91979274 M54.10 Neck pain 04994324 M54.2 Pain in right arm 885886 004 M79.601 Neuropathic pain 9969128 09 M79.2 Spinal davi nosis in cervical region 83754592 M99.51 Stenosis o f spinal canal due to intervertebral disc 599850311 M99.53 Opioid dependence 199945 00 F11.20 Fall W19.XXXA Health Concerns Section Related Observation LastModified by Organization Detai ls LastModified Time None Recorded Concern Status LastModified by Organization Details LastModified Time None Recorded Advance Directives Directive None Recorded Payers Insurance Date Sequence Insurance Name Policy Number Policy Harding Covered Member ID Harding Member ID Guarantor Name 08/29/2023 1 [facility] (MEDICARE REPLACEMENT/ ADVANTAGE - HMO) Lena Chandler [id number] Lena Chandler Notes Date Note Type Note [...] Knee Injections, Lumbar InjectionsImaging/Studie s: None Justin MD [address], [place], [address], [place] - [facility] - [place] & [place] 08/27/2022 14:45:45 3 text/html Mrs. Chandler was [...] Bilateral Knee Injections, Lumbar InjectionsImaging/Studie s: None MD [address], [place], [address], [place] - [facility] [place] & [place] 10/01/2022 08:42:38 3 text/html Mrs. Chandler was [...] reports she was able to go to [place] [facility] with her this past weekend which she has been unable to do for a long time. She is complaining of thoracic and lumbar pain with BLE radicular pain to the calf. No trauma or injury. She has had this pain mcc. It is worse with standing and walking, [...] Lumbar InjectionsImaging/Studie s: None Justin Andres MD [address] [facility], [place], [address], [place] [facility] [place] & [place] 11/26/2022 11:29:36 3 text/html Mrs. Chandler was [...] reports she was able to go to [place] [facility] with her this past weekend which she has been unable to do for a long time. She is complaining of thoracic and lumbar pain with BLE radicular pain to the calf. No trauma or injury. She has had this pain mcc. It is worse with standing and walking, [...] InjectionsImaging/Studie s: None Justin Andres MD [address] [facility], [place], [address], [facility] & [place] 01/13/2023 21:55:52 4 text/html Mrs. Chandler was [...] dosing. The patient reports falling around New ' and has not been out of the [...] InjectionsImaging/Studie s: None Justin Andres MD [address] [facility], [place], [address], [facility] - [place] & [place] 04/01/2023 14:43:21 OBGyn Episode No OBEpisode recorded.
--- OUTSIDE RECORDS SUMMARY | 2024-08-23 13:39 | XMS_ITS | Encounter Summary ---
Author Organization [employer] ([place], [place], [place], [place]) Address [address] [place] [address] Care Team Providers Care Financial Sales Representative Name Role Phone Lalitha Linh Delilah DAVIS Primary Care Provider [phone] Lizzie Alves PA-C Unavailable [phone] Kaushik Mariscal MD Unavailable Encounter Details Date Type Department Care Team (Late st Contact Info) Description 07/23/2021 Transcribed Document [facility] Family Medicine [address] [place] [address] ProviderChad MD [address] [place] [address] Social History Tobacco Use Types Packs/Day [...] Conversion Note - Historical ProviderMD - 07/23/2021 5:00 PM CDT Chart Check - Review Order Profile Entered On: 07/23/2021 18:55 EDT Performed On: 07/23/2021 17:00 EDT by Colin Kaur Non Emp RN Chart Check Power[employer]ans Initiated/Discontinued as Appropriate : Yes All Active Orders Reviewed : Yes Colin Kaur Non Emp RN - 07/23/2021 18:55 EDT Electronically signed by Rekha [facility] Conversion Supervisor [employer] at 05/27/2022 8:59 PM CDT documented in this encounter Plan of Treatment Not on file documented as of this encounter Visit Diagnoses Not on filedocumented in this encounter Care Teams Financial Sales Representative Relationship Specialty Start Date End Date Linh Doty, [address] [facility] [address] [place] [address] PCP - General Family Medicine 11/04/22 Lizzie Alves PA-C [address] [place] [address], [facility] [address] [place] [address] Hospitalist Cardiology 05/27/23 Kaushik Mariscal MD [address] [facility] [address] [place] [address] Director Case Electrophysiology 11/18/23 documented as of this encounter
--- OUTSIDE RECORDS SUMMARY | 2024-08-23 13:39 | XMS_ITS | Encounter Summary ---
Author Organization [employer] ([place], [place], [place], [place]) Address [address] [place] [address] Care Team Providers Care Director Corporate Security Name Role Phone Lalitha Linh Delilah DAVIS Primary Care Provider [phone] Lizzie Alves PA-C Unavailable [phone] Dion Mariscal MD Unavailable Encounter Details Date Type Department Care Team (Late st Contact Info) Description 07/22/2021 Transcribed Document [facility] [place] [address] [place] [address] ProviderChad MD [address] [place] [address] Social History Tobacco Use Types Packs/Day [...] Cerner Conversion Note - Historical ProviderMD - 07/22/2021 9:42 AM CDT Patient: GAGAN MENDOZA [facility]: [id number] Age: 55 years Sex: Female : 1965 [...] mg, 8 mL, 116 mL/Hr, IV Piggyback, [id number] DuoNeb 0.5 mg-2.5 mg/3 mL inhalation solution: 3 mL, Nebulized Inhalation, Q8H Florastor: 250 mg, Oral, BID Lasix: 20 mg, Oral, Daily MiraLax: 17 Gram, Oral, Daily, PRN: Constipation Normal Saline Flush: 10 mL, IntraCATHeter, Q12H Rocephin: 2 Gram, 100 mL/Hr, IV Piggyback, [id number] Roxicodone: 5 mg, Oral, Q4H, PRN: Pain [...] 0 Refill(s) Rocephin: 2 Gram, IV Piggyback, [id number], 0 Refill(s) Vitamin D2 1.25 mg (50,000 intl units) oral capsule: 1 Cap, Oral, Weekly, 0 Refill(s) acetaminophen-HYDROcodone 325 mg-5 mg oral tablet: 1 Tab, Oral, Q8H, PRN: for pain, 0 Refill(s) carvedilol 12.5 mg oral tablet: 1 Tab, Oral, BID, 180 Tab, 0 Refill(s) fluticasone 50 mcg/inh nasal spray: 2 [place], Nasal, Daily, PRN: Nasal Congestion, 16 Gram, [...] BID fluticasone 50 mcg/inh nasal spray 2 [place], PRN, Nasal, Daily folic acid 1 mg [...] Oral, Daily Rocephin 2 Gram, IV Piggyback, V03EQsg topiramate 25 mg oral tablet 25 mg [...] Oral, BID cefTRIAXone 2 Gram, IV Piggyback, L99KXai DAPTOmycin + NaCl 0.9% 50 mL 400 mg 8 mL, IV Piggyback, I24CFyg ergocalciferol 50,000 unit cap 50,000 Units 1 [...] All Problems High cholesterol / SNOMED CT 59130824 / Confirmed PAD (peripheral artery disease) / SNOMED CT 7892072323 / Confirmed Chronic CHF / SNOMED CT 409734974 / Confirmed Current smoker / SNOMED CT 915386540 / Confirmed Arteriosclerosis / SNOMED CT 274528390 / Confirmed Intermittent claudication / SNOMED CT 712919553 / Confirmed Cardiomyopathy / SNOMED CT 742237659 / Confirmed History of [place] (myocardial infarction) / SNOMED CT 1812040012 / Confirmed Pacemaker / SNOMED CT 1982499794 / Confirmed Stented coronary artery / SNOMED CT 2903457043 / Confirmed Gout / SNOMED CT 795265951 / Confirmed At risk for sleep apnea / IMO 65903276 / Confirmed Resolved: History of ventricular tachycardia / SNOMED CT 0899981601 ICD placed in past for arrythmia. Canceled: HTN (hypertension) / SNOMED CT 8753585899 Canceled: COPD (chronic obstructive pulmonary disease) / SNOMED CT 66892442 Canceled: At risk for sleep apnea / IMO 89829134 Canceled: History of ischemic cardiomyopathy / SNOMED CT 482775223 Canceled: Abdominal aortic stenosis / SNOMED CT 660103756 Canceled: Shortness of breath / SNOMED CT 397986684, Active Problems (12) Arteriosclerosis At risk for [...] (JUL 21 18:36) MAP 80 (JUL 22 05:) 69 (JUL 21 11:15) 88 (JUL 21 18:36) SpO2 95 (JUL 22 06:09) L 89 (JUL 21:15) 97 (JUL 22 03:03) Results Review Telemetry [...] Normal range of motion. Integumentary: Warm, Dry, Ernest. PPM site stable. Bruising around site but [...] Electronically signed by Reyna Da Silva Conversion Tractor Trailer Moving Van Driver Cerner at 05/27/2022 9:20 PM CDT documented in this encounter Plan of Treatment Not on file documented as of this encounter Visit Diagnoses Not on filedocumented in this encounter Care Teams Director Corporate Security Relationship Specialty Start Date End Date Linh Doty, 8 [facility] [address] [place] [address] PCP - General Family Medicine 11/04/22 Lizzie Alves PA-C [address] [facility], [facility] [address] [place] [address] Hospitalist Cardiology 05/27/23 Dion Mariscal MD [address] [facility] [address] [place] [address] Tongue Lining Stitcher Electrophysiology 11/18/23 documented as of this encounter
--- OUTSIDE RECORDS SUMMARY | 2024-08-23 13:39 | XMS_ITS | Data Portability ---
Author Organization [facility] Address [address] [place] [address] Assessment Encounter Date Assessment Date Assessment LastModified by Organization Details LastModified Time 06/12/2023 06/12/2023 PULMONARY CONSULTATION HISTORICAL : This 57 year old female was admitted to the facility on 06/05/2023 after hospitalization at [facility] where she presented with altered mental [...] the facility on 06/05/2023 after hospitalization at [facility] where she presented with altered mental [...] By Organization Details Last Modified Time 06/19/2023 [id number] CONSENT FOR ENROLLMENT IN PRINCIPAL CARE MANAGEMENT: [...] though PCM services will not involve a lidn-gk-qwes meeting with a provider. [email or web address] Not available [...] SNOMED-CT Code Diagnosis ICD10 Code Diagnosis Note [id number] Dodie Cummins NP [facility] [address] [place] [address] 06/12/2023 20:51:54 06/19/2023 11:40:30 [id number] Dodie Cummins NP [facility] [address] [place] [address] 06/19/2023 09:57:05 06/22/2023 10:44:29 Health Concerns Section Related Observation LastModified by Organization Detai ls LastModified Time None Recorded Concern Status LastModified by Organization Details LastModified Time None Recorded Advance Directives Directive None Recorded Payers Insurance Date Sequence Insurance Name Policy Number Policy Harding Covered Member ID Harding Member ID Guarantor Name 06/19/2023 1 [employer] (MEDICARE REPLACEMENT/ ADVANTAGE - HMO) Lena Chandler [id number] Lena Chandler 06/12/2023 2 [place] Lena Chandler [id number] Lena Chandler OBGyn Episode No OBEpisode recorded.
--- OUTSIDE RECORDS SUMMARY | 2024-08-23 13:39 | XMS_ITS | Encounter Summary ---
Author Organization [employer] ([place], [place], [place], [place]) Address [address] [place] [address] Care Team Providers Care Director Sales And Marketing Name Role Phone Lalitha Linhkarthikeyan Mazariegos DO Primary Care Provider [phone] Lizzie Alves PA-C Unavailable [phone] Kaushik Mariscal MD Unavailable Encounter Details Date Type Department Care Team (Late st Contact Info) Description 11/23/2018 Transcribed Document [facility] [place] [address] ProviderChad MD [address] [place] [address] Social History Tobacco Use Types Packs/Day [...] ELAINE CHOI RN - 11/23/2018 13:18 EDT documented in this encounter Plan of Treatment Not on file documented as of this encounter Visit Diagnoses Not on filedocumented in this encounter Care Teams Director Sales And Marketing Relationship Specialty Start Date End Date Linh Doty, 8 [facility] [address] [place] [address] PCP - General Family Medicine 11/04/22 Lizzie Alves PA-C [address] [place] [address], [facility] [address] [place] [address] Hospitalist Cardiology 05/27/23 Kaushik Mariscal MD [address] [facility] [address] [place] [address] Painter Supervisor Electrophysiology 11/18/23 documented as of this encounter
--- OUTSIDE RECORDS SUMMARY | 2024-08-23 13:39 | XMS_ITS | Encounter Summary ---
Author Organization [employer] ([place], [place], [place], [place]) Address [address] [place] [address] Care Team Providers Care First Aid Director Name Role Phone Lalitha Linhkarthikeyan Mazariegos DO Primary Care Provider [phone] Lizzie Alves PA-C Unavailable [phone] Kaushik Mariscal MD Unavailable Encounter Details Date Type Department Care Team (Late st Contact Info) Description 07/21/2021 Transcribed Document [facility] [place] Family Medicine [address] [place] [address] ProviderChad MD [address] [place] [address] Social History Tobacco Use Types Packs/Day Years Used Date Smoking Tobacco: Never Assessed Family and Community Support Answer Geremias e Recorded Help with Day to Day Activities Not on file 02/27/2023 Feeling Lonely or Isolated Not on file 02/27 Educational Attainment Answer Date Mendez rded Speak language other than Grenadian at home Not on file 02/27/2023 Want [...] Conversion Note - Historical ProviderMD - 07/21/2021 5:00 AM CDT Chart Check - Review Order Profile Entered On: 07/21/2021 6:17 EDT Performed On: 07/21/2021 5:00 EDT by ELDER WILSON RN Chart Check All Active Orders Reviewed : Yes ELDER WILSON RN - 07/21/2021 6:17 EDT Electronically signed by Rekha [facility] Conversion Glazier Apprentice Cerner at 05/27/2022 9:21 PM CDT documented in this encounter Plan of Treatment Not on file documented as of this encounter Visit Diagnoses Not on filedocumented in this encounter Care Teams First Aid Director Relationship Specialty Start Date End Date Linh Doty, 8 [facility] [address] [place] [address] PCP - General Family Medicine 11/04/22 Lizzie Alves PA-C 1401 [facility], [facility] [address] [place] [address] Hospitalist Cardiology 05/27/23 Kaushik Mariscal MD [address] [facility] [address] [place] [address] Cook Helper Pastry Electrophysiology 11/18/23 documented as of this encounter
--- OUTSIDE RECORDS SUMMARY | 2024-08-23 13:39 | XMS_ITS | Encounter Summary ---
Author Organization [employer] ([place], [place], [place], [place]) Address [address] [place] [address] Care Team Providers Care Associate Software Development Engineer Name Role Phone Lalitha Linhkarthikeyan Mazariegos DO Primary Care Provider [phone] Lizzie Alves PA-C Unavailable [phone] Kaushik Mariscal MD Unavailable Encounter Details Date Type Department Care Team (Late st Contact Info) Description 07/22/2021 Transcribed Document [facility] [place] Family Medicine [address] [place] [address] ProviderChad MD [address] [place] [address] Social History Tobacco Use Types Packs/Day [...] Conversion Note - Historical ProviderMD - 07/22/2021 4:49 PM CDT UM Authorization Entered On: 07/22/2021 16:54 EDT Performed On: 07/22/2021 16:49 EDT by EZEKIEL PHILLIPS RN Primary Insurance Authorization Authorization and Policy Numbers : Insurance 1 Health Plan: [employer] MANAGED MEDICARE Policy Number: [id number] Authorization Number: Insurance Primary Name : [facility] MANAGED MEDICARE Policy Number: [id number] Authorization Status-Primary : Admit approved Reference Number-Primary : [id number] Authorization Number-Primary : [id number] Number of Days Authorized-Primary : 5 Day(s) Authorized Service Begin Date-Primary : 07/16/2021 EDT Authorized Service End Date-Primary : 07/21/2021 EDT Authorization Comments-Primary : 07/20-07/22 CLINICALS FAXED VIA [employer] Historical Authorization Comments-Primary : Comment 1: PER PORTAL IP APPROVED FOR 07/16 UP TO BUT NOT INCLUDING 07/22 (Khushi Jones Rn-Utilization Review 07/19/2021 13:56) Comment 2: UNDER REVIEW PER WC PORTAL (Khushi Jones Rn-Utilization Review 07/19/2021 09:22) Comment 3: CLINICAL FAXED VIA [employer] (Khushi Jones Rn-Utilization Review 07/17/2021 15:22) Comment 4: REF# PER GUME. CLINICAL FAXED VIA [employer] (Khushi Jones Rn-Utilization Review 07/17/2021 15:17) EZEKIEL PHILLIPS RN - 07/22/2021 16:49 EDT documented in this encounter Plan of Treatment Not on file documented as of this encounter Visit Diagnoses Not on filedocumented in this encounter Care Teams Associate Software Development Engineer Relationship Specialty Start Date End Date Linh Doty DO [address] [place] [address] PCP - General Family Medicine 11/04/22 Lizzie Alves PA-C [address], [facility] [address] [place] [address] Hospitalist Cardiology 05/27/23 Kaushik Mariscal MD 14[address] [facility] [address] [place], [place] [address] Hand Wood Sander Electrophysiology 11/18/23 documented as of this encounter
--- OUTSIDE RECORDS SUMMARY | 2024-08-23 13:39 | XMS_ITS | Encounter Summary ---
Author Organization [email or web address] ([place], [place], [place], [place]) Address [address] [place] [address] Care Team Providers Care Metal Buildings Assembler Name Role Phone Lalitha Linhkarthikeyan Mazariegos DO Primary Care Provider Lizzie Alves PA-C Unavailable [phone] Kaushik Mariscal MD Unavailable Encounter Details Date Type Department Care Team (Late st Contact Info) Description 07/18/2021 Transcribed Document [facility] Radiology [address] [id number] Yanick Torres MD [address] [place] [address] [place] [address] Social History Tobacco Use Types Packs/Day Years Used Date Smoking Tobacco: Never Assessed Family and Community Support Answer Geremias e Recorded Help with Day to Day Activities Not on file 02/27/2023 Feeling Lonely or Isolated Not on file 02/27 Educational Attainment Answer Date Mendez rded Speak language other than Burmese at home Not on file 02/27/2023 Want [...] remains on antibiotics per ID 6/10 patient 07/20 Past medical history ischemic cardiomyopathy [...] mL: 1,000 mg, 250 mL/Hr, IV Piggyback, [id number] Prescriptions Prescribed nicotine 21 mg/24 hr transdermal [...] Refill(s) fluticasone 50 mcg/inh nasal spray: 2 [place], Nasal, Daily, PRN: Nasal Congestion, 16 Gram, [...] BID fluticasone 50 mcg/inh nasal spray 2 [place], PRN, Nasal, Daily folic acid 1 mg [...] 0.9% 250 mL 1,000 mg, IV Piggyback, [id number] Continuous: (0) PRN: (7) acetaminophen 325 mg [...] At risk for sleep apnea / IMO [id number] / Confirmed High cholesterol / SNOMED CT 87111140 / Confirmed Canceled: At risk for sleep apnea / IMO 31038749 Canceled: COPD (chronic obstructive pulmonary disease) / SNOMED CT 07518904 Canceled: HTN (hypertension) / SNOMED CT 0974843267, Active Problems (12) Arteriosclerosis At risk for sleep apnea Cardiomyopathy Chronic CHF Current smoker Gout High cholesterol History of [place] (myocardial infarction) Intermittent claudication Pacemaker PAD (peripheral artery disease) Stented coronary artery Objective VS/Measurements Vitals Signs (last 24 hrs) Last Charted Minimum Maximum Temp 98.8 (JUL 18 02:15) 98.8 (JUL 18 02:15) 98.5 (JUL 17:13) Mon HR 79 (JUL 18:30) 74 (JUL 17 11:00) 96 (JUL 17 13:30) Resp Rate 18 (JUL 17 19:13) 15 (JUL 17 11:00) H 21 (JUL 17 13:30) SBP 102 (JUL 18:30) 96 (JUL 17 12:30) 111 (JUL 17 13:00) DBP 60 (JUL 18:30) L 59 (JUL 17 11:30) 67 (JUL 17 13:00) MAP 72 (JUL 18 01:30) 72 (JUL 18:30) 81 (JUL 17 13:00) SpO2 96 (JUL 18:00) L 88 (JUL 17 15:30) 96 (JUL 17 22:30) General: No acute distress. Eye: Normal conjunctiva. Neck: No jugular venous distention. Respiratory: Lungs are clear to auscultation, Respirations are non-labored, Breath sounds are equal. Cardiovascular: Regular rhythm, No gallop, S1+ S2 No S3 or S4 [place].. Gastrointestinal: Soft, Non-tender, Non-distended, Normal bowel sounds. [...] filedocumented in this encounter Care Teams Metal Buildings Assembler Relationship Specialty Start Date End Date Linh Doty, DO [address] [facility] [address] [place] [address] PCP - General Family Medicine 11/04/22 Lizzie Alves PA-C [address] [facility], [facility] [address] [place] [address] Hospitalist Cardiology 05/27/23 Kaushik Mariscal MD 1401 [facility] [address] [place] [address] Agricultural Equipment Design Engineer Electrophysiology 11/18/23 documented as of this encounter
--- OUTSIDE RECORDS SUMMARY | 2024-08-23 13:39 | XMS_ITS | Encounter Summary ---
Author Organization [employer] ([place], [place], [place], [place]) Address [address] [place] [address] Care Team Providers Care Pediatric Dental Assistant Name Role Phone Lalitha Linhkarthikeyan Mazariegos DO Primary Care Provider [phone] Lizzie Alves PA-C Unavailable [phone] Dion Mariscal MD Unavailable Encounter Details Date Type Department Care Team (Late st Contact Info) Description 07/22/2021 Transcribed Document [facility] [place] [address] [place] [address] ProviderChad MD [address] [place] [address] Social History Tobacco Use Types Packs/Day Years Used Date Smoking Tobacco: Never Assessed Family and Community Support Answer Geremias e Recorded Help with Day to Day Activities Not on file 02/27/2023 Feeling Lonely or Isolated Not on file 02/27 Educational Attainment Answer Date Mendez rded Speak language other than Icelandic at home Not on file 02/27/2023 Want [...] Conversion Note - Historical ProviderMD - 07/22/2021 1:42 PM CDT Patient: [...] 3 mL, Nebulized Inhalation , Q8H ergocalciferol, 10777 Units= 1 Cap, Oral, Weekly Florastor, 250 [...] Push, Q4H, PRN Electronically signed by Rekha, [facility] Conversion Tester [employer] Pack[employer] Cerner at 05/27/2022 9:03 PM CDT documented in this encounter Plan of Treatment Not on file documented as of this encounter Visit Diagnoses Not on filedocumented in this encounter Care Teams Pediatric Dental Assistant Relationship Specialty Start Date End Date Linh Doty DO 8 [facility] [address] [place] [address] PCP - General Family Medicine 11/04/22 Lizzie Alves PA-C [address] [place] [address], [facility] [address] [place] [address] Hospitalist Cardiology 05/27/23 Dion Mariscal MD 14[address] [facility] [address] [place] [address] Shoe Planner Electrophysiology 11/18/23 documented as of this encounter
--- OUTSIDE RECORDS SUMMARY | 2024-08-23 13:39 | XMS_ITS | Encounter Summary ---
Author Organization [employer] ([place], [place], [place], [place]) Address [address] [place] [address] Care Team Providers Care Geothermal Technician Name Role Phone Lalitha Linhkarthikeyan Mazariegos DO Primary Care Provider [phone] Lizzie Alves PA-C Unavailable [phone] Kaushik Mariscal MD Unavailable Encounter Details Date Type Department Care Team (Late st Contact Info) Description 07/21/2021 Transcribed Document [facility] [place] [address] [place] [address] ProviderChad MD [address] [place] [address] Social History Tobacco Use Types Packs/Day Years Used Date Smoking Tobacco: Never Assessed Family and Community Support Answer Geremias e Recorded Help with Day to Day Activities Not on file 02/27/2023 Feeling Lonely or Isolated Not on file 02/27 Educational Attainment Answer Date Mendez rded Speak language other than Lao at home Not on file 02/27/2023 Want [...] Conversion Note - Historical ProviderMD - 07/21/2021 1:06 AM CDT Education-Wound [...] on filedocumented in this encounter Care Teams Geothermal Technician Relationship Specialty Start Date End Date Linh Doty, DO 8 [facility] [address] [place] [address] PCP - General Family Medicine 11/04/22 Lizzie Alves PA-C [address] [place] [address], [facility] [address] [place] [address] Hospitalist Cardiology 05/27/23 Kaushik Mariscal MD 14[address] [facility] [address] [place] [address] Band Sawmill Operator Electrophysiology 11/18/23 documented as of this encounter
--- OUTSIDE RECORDS SUMMARY | 2024-08-23 13:39 | XMS_ITS | Encounter Summary ---
Author Organization [employer] ([place], [place], [place], [place]) Address [address] [place] [address] Care Team Providers Care Dog Barber Name Role Phone Lalitha Linhkarthikeyan Mazariegos DO Primary Care Provider Lizzie Alves PA-C Unavailable [phone] Kaushik Mariscal MD Unavailable Encounter Details Date Type Department Care Team (Late st Contact Info) Description 07/18/2021 Transcribed Document [facility] [place] Family Medicine [address] [place] [address] ProviderChad MD [address] [place] [address] Social History Tobacco Use Types [...] Conversion Note - Historical ProviderMD - 07/18/2021 4:09 PM CDT On Going Discharge Planning Entered On: 07/18/2021 16:10 EDT Performed On: 07/18/2021 16:09 EDT by Mayra Vann Ground Operations Crew Member Rn Care Management Progress Note Discharge Arrangements : Patient Post-Acute Information Patient Name: GAGAN MENDOZA Gender: Female : [birth year] Age: 55 Years No Post-Acute Placement(s) Listed No Post-Acute Service(s) Listed No [place] Referral(s) Listed Discharge Options Discussed with Patient : Acute rehabilitation, Discharge transportation, DME, Home Health, Outpatient services Patient Discharge Goal : Home Mayra Vann Ground Operations Crew Member Rn - 07/18/2021 16:09 EDT Narrative Progress Note Narrative Progress Note : hd 2 low rar patient has orders from [facility] r/t iv abx and picc care but patient has no orders for PICC placement at this time, CM has reached out to [facility]. [facility]. patient will also need hh dcp- home with hh and iv abx Mayra Vann Ground Operations Crew Member Rn - 07/18/2021 16:09 EDT documented in this encounter Plan of Treatment Not on file documented as of this encounter Visit Diagnoses Not on filedocumented in this encounter Care Teams Dog Barber Relationship Specialty Start Date End Date Linh Doty, DO 8 [facility] [address] [place] [address] PCP - General Family Medicine 11/04/22 Lizzie Alevs PA-C [address] [place] [address], [facility] [address] [place] [address] Hospitalist Cardiology 05/27/23 Kaushik Mariscal MD [address] [facility] [address] [place] [address] Cnc Operator Machinist Electrophysiology 11/18/23 documented as of this encounter
--- OUTSIDE RECORDS SUMMARY | 2024-08-23 13:39 | XMS_ITS | Encounter Summary ---
Author Organization [employer] ([place], [place], [place], [place]) Address [address] [place] [address] Care Team Providers Care District Resource Officer Name Role Phone Lalitha Linhkarthikeyan Mazariegos DO Primary Care Provider [phone] Lizzie Alves PA-C Unavailable [phone] Dion Mariscal MD Unavailable Encounter Details Date Type Department Care Team (Late st Contact Info) Description 07/21/2021 Transcribed Document [facility] [place] [address] [place] [address] ProviderChad MD [address] [place] [address] Social History Tobacco Use Types Packs/Day Years Used Date Smoking Tobacco: Never Assessed Family and Community Support Answer Geremias e Recorded Help with Day to Day Activities Not on file 02/27/2023 Feeling Lonely or Isolated Not on file 02/27 Educational Attainment Answer Date Mendez rded Speak language other than Lebanese at home Not on file 02/27/2023 Want [...] Conversion Note - Historical ProviderMD - 07/21/2021 12:20 PM CDT Patient: GAGAN [...] 3 mL, Nebulized Inhalation , Q8H ergocalciferol, 80247 Units= 1 Cap, Oral, Weekly Florastor, 250 [...] Man 47 % (High) 07/21/2021 04:12 EDT [place] Percent Man 3 % (Low) 07/21/2021 04:12 EDT Eos Percent Man 3 % 07/21/2021 04:12 EDT Baso Percent Man 0 % 07/21/2021 04:12 EDT RBC Morphology Abnormal 07/21/2021 04:12 EDT Anisocytosis 1+ (Abnormal) 07/21/2021 04:12 EDT Stomatocytes 1+ (Abnormal) 07/21/2021 04:[address] Estimate Decreased (Abnormal) 07/21/2021 04:12 EDT documented in this encounter Plan of Treatment Not on file documented as of this encounter Visit Diagnoses Not on filedocumented in this encounter Care Teams District Resource Officer Relationship Specialty Start Date End Date Linh Doty, [address] [place] [address] PCP - General Family Medicine 11/04/22 Lizzie Alves PA-C [address], [facility] [address] [place] [address] Hospitalist Cardiology 05/27/23 Dion Mariscal MD 1401 [facility] [place] [address] Business Office Specialist Electrophysiology 11/18/23 documented as of this encounter
--- OUTSIDE RECORDS SUMMARY | 2024-08-23 13:39 | XMS_ITS | Encounter Summary ---
Author Organization [employer] ([place], [place], [place], [place]) Address [address] [place] [address] Care Team Providers Care Copper Flotation Operator Name Role Phone Lalitha Lnihkarthikeyan Mazariegos DO Primary Care Provider [phone] Lizzie Alves PA-C Unavailable [phone] Kaushik Mariscal MD Unavailable Encounter Details Date Type Department Care Team (Late st Contact Info) Description 07/18/2021 Transcribed Document [facility] Family Medicine [address] [place] [address] ProviderChad MD [address] [place] [address] Social History Tobacco Use Types [...] Conversion Note - Historical ProviderMD - 07/18/2021 11:11 AM CDT Patient: LENA MENDOZA Age: 55 [...] with bloody drainage. Patient was admitted to [facility] on 07/16/2021. Post generator change, [...] m - 1,000 mg, IV Piggyback, Inj, [id number], infuse over 1 Hour(s) Cardiovascular carvedilol - [...] Temp 98.8 (JUL 18 02:15) 98.8 (JUL 18:15) 98.5 (JUL 17:) Mon HR 79 (JUL 18:30) 76 (JUL 17:30) 96 (JUL 17:30) Resp Rate 18 (JUL 17:) 16 (JUL 17:30) H 21 (JUL 17:30) SBP 102 (JUL 18:30) 96 (JUL 17 12:30) 111 (JUL 17 13:00) DBP 60 (JUL 18:30) L 59 (JUL 17:30) 67 (JUL 17 13:00) MAP 72 (JUL 18:30) 72 (JUL 18:30) 81 (JUL 17:) SpO2 96 (JUL 18:00) L 88 (JUL 17 15:30) 96 (JUL 17:30) General: Alert and oriented, Moderate distress. Eye: [...] Normal strength, No tenderness. Integumentary: Warm, Dry, [place], No pallor, No rash, ICD site left [...] (MADELEINE 08) 3.5 (MADELEINE 07) , ACC: [id number] ORDER: Culture Wound and Stain DATE: 07/17/2021 08:34 SOURCE: Wound SITE: Chest L Reports Pre 07/18/2021 06:24 No growth GS 07/17/2021 14:09 No cells seen No organisms seen. == ACC: [id number] ORDER: Culture Blood DATE: 07/16/2021 12:39 SOURCE: Blood SITE: Reports Pre 07/17/2021 16:02 No growth at 1 day. Pre 07/17/2021 06:01 Culture less than 24 Hrs old == ACC: [id number] ORDER: Culture Blood DATE: 07/16/2021 12:39 SOURCE: Blood SITE: Reports Pre 07/17/2021 16:02 No growth at 1 day. Pre 07/17/2021 06:01 Culture less than 24 Hrs old == . Procedure Critical Care - Code Management Assessment: Radiology Results (Last 48 hours) [id number] -- 07/16/2021 14:13 CR Chest 1 Vw [...] personally viewed, interpreted and dictated the examination. Nga read and agree with the above final [...] Weekly PICC dressing changes. Fax orders to [id number], call [phone] with final arrangements. Hold rosuvastatin while on daptomycin to decrease risk of rhabdomyolysis. Arrange for follow-up with me in 1 week post discharge. documented in this encounter Plan of Treatment Not on file documented as of this encounter Visit Diagnoses Not on filedocumented in this encounter Care Teams Copper Flotation Operator Relationship Specialty Start Date End Date Linh Doty, DO 8 [facility] [address] [place] [address] PCP - General Family Medicine 11/04/22 Lizzie Alves PA-C [address] [facility], [facility] [address] [place] [address] Hospitalist Cardiology 05/27/23 Kaushik Mariscal MD [address] [facility] [address] [place] [address] Transfer Professor Electrophysiology 11/18/23 documented as of this encounter
--- OUTSIDE RECORDS SUMMARY | 2024-08-23 13:39 | XMS_ITS | Encounter Summary ---
Author Organization [employer] ([place], [place], [place], [place]) Address [address] [place] [address] Care Team Providers Care Urgent Care Name Role Phone Lalitha Linhkarthikeyan Mazariegos DO Primary Care Provider [phone] Lizzie Alves PA-C Unavailable [phone] Kaushik Mariscal MD Unavailable Encounter Details Date Type Department Care Team (Late st Contact Info) Description 07/22/2021 Transcribed Document [facility] Family Medicine [address] [place] [address] ProviderChad MD [address] [place] [address] Social History Tobacco Use Types [...] Conversion Note - Historical ProviderMD - 07/22/2021 3:33 PM CDT UM Authorization Entered On: 07/22/2021 15:33 EDT Performed On: 07/22/2021 15:33 EDT by Bonita Katz, Credentials Specialist Primary Insurance Authorization Authorization and Policy Numbers : Insurance 1 Health Plan: [employer] MANAGED MEDICARE Policy Number: [id number] Authorization Number: Insurance Primary Name : [facility] MANAGED MEDICARE Policy Number: [id number] Authorization Status-Primary : Admit approved Reference Number-Primary : [id number] Authorization Number-Primary : [id number] Number of Days Authorized-Primary : 5 Day(s) Authorized Service Begin Date-Primary : 07/16/2021 EDT Authorized Service End Date-Primary : 07/21/2021 EDT Historical Authorization Comments-Primary : Comment 1: PER PORTAL IP APPROVED FOR 07/16 UP TO BUT NOT INCLUDING 07/22 (Khushi Jones, Rn-Utilization Review 07/19/2021 13:56) Comment 2: UNDER REVIEW PER WC PORTAL (Khushi Jones, Rn-Utilization Review 07/19/2021 09:22) Comment 3: CLINICAL FAXED VIA [facility] (Khushi Jones, Rn-Utilization Review 07/17/2021 15:22) Comment 4: REF# PER GUME. CLINICAL FAXED VIA [employer] (Khushi Jones, Rn-Utilization Review 07/17/2021 15:17) Bonita Katz, Credentials Specialist - 07/22/2021 15:33 EDT Electronically signed by Rekha [facility] Conversion Client Partner Cerner at 05/27/2022 9:22 PM CDT documented in this encounter Plan of Treatment Not on file documented as of this encounter Visit Diagnoses Not on filedocumented in this encounter Care Teams Urgent Care Relationship Specialty Start Date End Date Linh Doty, DO [address] [place] [address] PCP - General Family Medicine 11/04/22 Lizzie Alves PA-C [address], [facility] [address] [place] [address] Hospitalist Cardiology 05/27/23 Kaushik Mariscal MD 14[address] [facility] [place] [address] Knife Setter Grinder Machine Electrophysiology 11/18/23 documented as of this encounter
--- OUTSIDE RECORDS SUMMARY | 2024-08-23 13:39 | XMS_ITS | Encounter Summary ---
Author Organization [employer] ([place], [place], [place], [place]) Address [address] [place] [address] Care Team Providers Care Clinical Biochemist Name Role Phone Lalitha Linhkarthikeyan Mazariegos DO Primary Care Provider [phone] Lizzie Alves PA-C Unavailable [phone] Kaushik Mariscal MD Unavailable Encounter Details Date Type Department Care Team (Late st Contact Info) Description 07/22/[address] [facility] Family Medicine [address] [place] [address] ProviderChad MD [address] [place] [address] Social History Tobacco Use Types Packs/Day Years Used Date Smoking Tobacco: Never Assessed Family and Community Support Answer Geremias e Recorded Help with Day to Day Activities Not on file 02/27/2023 Feeling Lonely or Isolated Not on file 02/27 Educational Attainment Answer Date Mendez rded Speak language other than [place] at home Not on file 02/27/2023 Want [...] Conversion Note - Historical ProviderMD - 07/22/2021 1:09 AM CDT Event [...] antibiotics until day team is notified. Larissa Dubois RN-PATIENT CARE BEDSIDE NON-EXEMPT - 07/22/2021 1:09 EDT Electronically signed by Alberto Da Silva Conversion Marketing Traffic Coordinator Cerner at 05/27/2022 9:15 PM CDT documented in this encounter Plan of Treatment Not on file documented as of this encounter Visit Diagnoses Not on filedocumented in this encounter Care Teams Clinical Biochemist Relationship Specialty Start Date End Date Linh Doty, 8 [facility] [address] [place] [address] PCP - General Family Medicine 11/04/22 Lizzie Alves PA-C [address] [facility], [facility] [address] [place] [address] Hospitalist Cardiology 05/27/23 Kaushik Mariscal MD [address] [facility] [address] [place] [address] Dryer And Washer Mechanic Electrophysiology 11/18/23 documented as of this encounter
--- OUTSIDE RECORDS SUMMARY | 2024-08-23 13:39 | XMS_ITS | Encounter Summary ---
Author Organization [employer] ([place], [place], [place], [place]) Address [address] [place] [address] Care Team Providers Care Cannon Crewmember Name Role Phone Lalitha Linhkarthikeyan Mazariegos DO Primary Care Provider [phone] Lizzie Alves PA-C Unavailable [phone] Kaushik Mariscal MD Unavailable Encounter Details Date Type Department Care Team (Late st Contact Info) Description 07/23/2021 Transcribed Document [facility] Family Medicine [address] [place] [address] ProviderChad MD [address] [place] [address] Social History Tobacco Use Types Packs/Day [...] Note - Historical ProviderMD - 07/23/2021 5:00 AM CDT Chart Check - Review Order Profile Entered On: 07/23/2021 4:57 EDT Performed On: 07/23/2021 5:00 EDT by Jessica Recinos Lpn Chart Check Powerplans Initiated/Discontinued as Appropriate : Yes All Active Orders Reviewed : Yes Jessica Recinos Lpn - 07/23/2021 4:57 EDT Electronically signed by Rekha [facility] Conversion Chemical Packager Cerner at 05/27/2022 9:00 PM CDT documented in this encounter Plan of Treatment Not on file documented as of this encounter Visit Diagnoses Not on filedocumented in this encounter Care Teams Cannon Crewmember Relationship Specialty Start Date End Date Linh Doty, 8 [facility] [address] [place] [address] PCP - General Family Medicine 11/04/22 Lizzie Alves PA-C [address] [facility], [facility] [address] [place] [address] Hospitalist Cardiology 05/27/23 Kaushik Mariscal MD [address] [facility] [address] [place] [address] Condominium Property Manager Electrophysiology 11/18/23 documented as of this encounter
--- OUTSIDE RECORDS SUMMARY | 2024-08-23 13:39 | XMS_ITS | Encounter Summary ---
Author Organization [employer] ([place], [place], [place], [place]) Address [address] [place] [address] Care Team Providers Care Mcat Tutor Name Role Phone Lalitha Linhkarthikeyan Mazariegos DO Primary Care Provider [phone] Lizzie Alves PA-C Unavailable [phone] Kaushik Mariscal MD Unavailable Encounter Details Date Type Department Care Team (Late st Contact Info) Description 07/22/2021 Transcribed Document [facility] Family Medicine [address] [place] [address] ProviderChad MD [address] [place] [address] Social History Tobacco Use Types [...] Conversion Note - Historical ProviderMD - 07/22/2021 11:21 AM CDT On Going Discharge Planning Entered On: 07/22/2021 11:22 EDT Performed On: 07/22/2021 11:21 EDT by Mayra Vann Erp Consultant Rn Care Management Progress Note Discharge Arrangements [...] Attend Multidisciplinary Rounds? : Yes Mayra Vann Erp Consultant Rn - 07/22/2021 11:21 EDT Narrative Progress Note Narrative Progress Note : hd 6 elos 5 low rar patient has home abx arranged with [facility], planned for dc today however patient now to have AICD removed on 07/24 dcp- home ?iv abx after aicd removal Historical Progress Note : hd 3 elos 5 low rar [facility] to teach patient abx administration saturday 07/22. Per EP, plan to dc patient saturday 07/22. Lisa for HH. Mayra Vann Erp Consultant Rn - 07/19/21 13:36:36 hd 2 low rar patient has orders from ID r/t iv abx and picc care but patient has no orders for PICC placement at this time, CM has reached out to ID. home abx orders sent to [facility]. patient will also need hh dcp- home with hh and iv abx Mayra Vann Erp Consultant Rn - 07/18/21 16:10:37 Mayra Vann Erp Consultant Rn - 07/22/2021 11:21 EDT documented in this encounter Plan of Treatment Not on file documented as of this encounter Visit Diagnoses Not on filedocumented in this encounter Care Teams Mcat Tutor Relationship Specialty Start Date End Date Linh Doty, 8 [facility] [address] [place] [address] PCP - General Family Medicine 11/04/22 Lizzie Alves PA-C [address] [facility], [facility] [address] [place] [address] Hospitalist Cardiology 05/27/23 Kaushik Mariscal MD [address] [facility] [address] [place] [address] Clinical Laboratory Aide Electrophysiology 11/18/23 documented as of this encounter
--- OUTSIDE RECORDS SUMMARY | 2024-08-23 13:39 | XMS_ITS | Encounter Summary ---
Author Organization [employer] ([place], [place], [place], [place]) Address [address] [place] [address] Care Team Providers Care Aircraft Assembler Name Role Phone Lalitha Linhkarthikeyan Mazariegos DO Primary Care Provider [phone] Lizzie Alves PA-C Unavailable [phone] Kaushik Mariscal MD Unavailable Encounter Details Date Type Department Care Team (Late st Contact Info) Description 07/22/2021 Transcribed Document [facility] Family Medicine [address] [place] [address] ProviderChad MD [address] [place] [address] Social History Tobacco Use Types Packs/Day [...] Conversion Note - Historical ProviderMD - 07/22/2021 5:00 AM CDT Chart Check - Review Order Profile Entered On: 07/22/2021 7:47 EDT Performed On: 07/22/2021 5:00 EDT by Larissa Dubois RN-PATIENT CARE BEDSIDE NON-EXEMPT Chart Check Powerplans Initiated/Discontinued as Appropriate : Yes All Active Orders Reviewed : Yes Larissa Dubois RN-PATIENT CARE BEDSIDE NON-EXEMPT - 07/22/2021 7:47 EDT Electronically signed by Rekha [facility] Conversion Client Project Coordinator Cerner at 05/27/2022 9:08 PM CDT documented in this encounter Plan of Treatment Not on file documented as of this encounter Visit Diagnoses Not on filedocumented in this encounter Care Teams Aircraft Assembler Relationship Specialty Start Date End Date Linh Doty, DO 8 [facility] [address] [place] [address] PCP - General Family Medicine 11/04/22 Lizzie Alves PA-C [address] [place] [address], [facility] [address] [place] [address] Hospitalist Cardiology 05/27/23 Kaushik Mariscal MD 14[address] [facility] [address] [place] [address] Clip And Hanger Attacher Electrophysiology 11/18/23 documented as of this encounter
--- OUTSIDE RECORDS SUMMARY | 2024-08-23 13:39 | XMS_ITS | Encounter Summary ---
Author Organization [employer] ([place], [place], [place], [place]) Address [address] [place] [address] Care Team Providers Care Business Development Agent Name Role Phone Lalitha Linh Delilah DAVIS Primary Care Provider [phone] Lizzie Alves PA-C Unavailable [phone] Kaushik Mariscal MD Unavailable Encounter Details Date Type Department Care Team (Late st Contact Info) Description 07/22/2021 Transcribed Document [facility] Family Medicine [address] [place] [address] ProviderChad MD [address] [place] [address] Social History Tobacco Use Types Packs/Day Years Used Date Smoking Tobacco: Never Assessed Family and Community Support Answer Geremias e Recorded Help with Day to Day Activities Not on file 02/27/2023 Feeling Lonely or Isolated Not on file 02/27 Educational Attainment Answer Date Mendez rded Speak language other than [place] at home Not on file 02/27/2023 Want [...] Conversion Note - Historical ProviderMD - 07/22/2021 9:25 AM CDT Patient: LENA [...] (Rocephin) - 2 Gram, IV Piggyback, Inj, [id number], infuse over 30 Minute(s), Routine DAPTOmycin + Sodium Chloride 0.9% intravenous solution 50 mL - 400 mg, IV Piggyback, Inj, [id number], infuse over 30 Minute(s), Routine Anticoagulant alteplase [...] Rate 18 (JUL 22 05:00) 16 (JUL 22:) 18 (JUL 21 12:00) SBP 126 (JUL 22 05:00) 99 (JUL 21:15) 126 (JUL 22 05:00) DBP 70 (JUL [...] No tenderness, No deformity. Integumentary: Warm, Dry, [place], No pallor, No rash, ICD site left [...] 09) L 3.3 (MADELEINE 08) , ACC: [id number] ORDER: Culture Blood DATE: 07/16/2021 12:39 SOURCE: Blood SITE: Reports Final 07/21/2021 16:01 No growth at 5 days. Pre 07/20/2021 16:01 No growth at 4 days. Pre 07/19/2021 16:01 No growth at 3 days. Pre 07/18/2021 16:01 No growth at 2 days. Pre 07/17/2021 16:02 No growth at 1 day. Pre 07/17/2021 06:01 Culture less than 24 Hrs old == ACC: [id number] ORDER: Culture Blood DATE: 07/16/2021 12:39 SOURCE: Blood SITE: Reports Final 07/21/2021 16:01 No growth at 5 days. Pre 07/20/2021 16:01 No growth at 4 days. Pre 07/19/2021 16:01 No growth at 3 days. Pre 07/18/2021 16:01 No growth at 2 days. Pre 07/17/2021 16:02 No growth at 1 day. Pre 07/17/2021 06:01 Culture less than 24 Hrs old == ACC: [id number] ORDER: Culture Wound and Stain DATE: 07/17/2021 08:34 SOURCE: Wound SITE: Chest L Reports Final 07/20/2021 07:46 No growth Pre 07/18/2021 06:24 No growth GS 07/17/2021 14:09 No cells seen No organisms seen. == , Radiology Results (Last 48 hours) [id number] -- 07/16/2021 14:13 CR Chest 1 Vw [...] Weekly PICC dressing changes. Fax orders to [id number], call [phone] with final arrangements. Hold rosuvastatin while on daptomycin to decrease risk of rhabdomyolysis. Arrange for follow-up with me in 1 week post discharge. documented in this encounter Plan of Treatment Not on file documented as of this encounter Visit Diagnoses Not on filedocumented in this encounter Care Teams Business Development Agent Relationship Specialty Start Date End Date Linh Doty, DO [address] [place] [address] PCP - General Family Medicine 11/04/22 Lizzie Alves PA-C [address] [facility], [facility] [address] [place] [address] Hospitalist Cardiology 05/27/23 Kaushik Mariscal MD [address] [facility] [address] [place] [address] Childhood Development Teacher Electrophysiology 11/18/23 documented as of this encounter
--- OUTSIDE RECORDS SUMMARY | 2024-08-23 13:39 | XMS_ITS | Clinical Summary ---
Author Organization [facility] Address [address] [place] [address] Care Team Providers Care Ux Design Manager Name Role Phone Felicitas Melara APRN Primary Care Provider [phone] Allergies No known active allergies Medications albuterol [...] smear of cervix 01/23/2015 Overview (06/01/2024): Provider: Raym Hawk;Status: Active Peptic ulcer 05/01/2014 Encounters Date Type Department Care Team Description 07/13/2024 2:30 PM EDT Clinical Support [facility] [address] [facility] [place] [address] Kia Humphries GC Encounter for nonprocreative genetic counseling (Primary Dx) 07/13/2024 Travel 07/06/2024 Telephone [facility] Genetic Counseling [address] [facility] [place] [address] Kia Humphries GC Genetic Counseling Intake 06/02/2024 2:00 PM EDT Consult Medical Office Building Surgical Specialties [address] [facility], [address] [place] [address] Amish Escobedo MD Primary hyperparathyroidism (CMS/HCC) 06/02/2024 Orders Only External Location [address] [place] [address] Provider, External 06/02/2024 Travel 06/01/2024 Abstract Medical Office Building Surgical Specialties [address] [facility] [address], [address] [place] [address] Gamaliel Zaragoza 05/30/2024 1:20 PM EDT Office Visit [facility] Endocrinology [address] [place] [address] Natalia Alves MD Primary hyperparathyroidism [...] Recorded Patient Health Questionnaire-2 Score 0 05/30/2024 [facility] [place] of Occupat ional Health - Occupational Stress [...] 2:20 PM EDT Office Visit [facility] Endocrinology [address] [place] [address] Natalia Alves MD [address] [place] [address] 12/08/2024 3:00 PM EDT Office Visit Medical Office Building Surgical Specialties [address] [facility], [address] [place] [address] Amish Escobedo MD [address] [facility] [address] [place] [address] Health Maintenance Due Date Last [...] [facility]-Zoster Vaccines (2 of 2) 04/23/2020 02/27/2020 [id number] Vaccine (3 - 2023- season) 2023 12/22/2020, 04/28/2020 [facility]Y-RSV Vaccine: 60+ Years o r (1 - Risk 60-74 years 1-dose series) 2024 [facility]-Influenza Vaccine (#1) 10/10/202412/14, 01/29/2021 UKY-Bone Density Scan 12/17/2024 12/18/2023 , 11/30/2023 UKY-Depression Screening 05/30/2025 05/30/2024 [facility]Y-DTaP,Tdap,and Td Vaccine s (2 - Td or Tdap) 01/29/2031 01/29/2021 HPV Vaccines Aged Out No longer [...] Relevant to Health Maintenance Insurance [place] [address] Care Teams Ux Design Manager Relationship Specialty Start Date End Date Felicitas Melara APRN [address] [place] [address] PCP - General 01/29/24
--- OUTSIDE RECORDS SUMMARY | 2024-08-23 13:39 | XMS_ITS | Encounter Summary ---
Author Organization [employer] ([place], [place], [place], [place]) Address [address] [place] [address] Care Team Providers Care Nematology Teacher Name Role Phone Lalitha Linhkarthikeyan Mazariegos DO Primary Care Provider [phone] Lizzie Alves PA-C Unavailable [phone] Kaushik Mariscal MD Unavailable Encounter Details Date Type Department Care Team (Late st Contact Info) Description 07/22/2021 Transcribed Document [facility] Family Medicine [address] [place] [address] ProviderChad MD [address] [place] [address] Social History Tobacco Use Types Packs/Day Years Used Date Smoking Tobacco: Never Assessed Family and Community Support Answer Geremias e Recorded Help with Day to Day Activities Not on file 02/27/2023 Feeling Lonely or Isolated Not on file 02/27 Educational Attainment Answer Date Mendez rded Speak language other than Bangladeshi at home Not on file 02/27/2023 Want [...] Conversion Note - Historical ProviderMD - 07/22/2021 2:00 AM CDT Abstract Writer Details Entered On: 07/22/2021 3:29 EDT Performed On: 07/22/2021 2:00 EDT by Larissa Dubois RN-PATIENT CARE BEDSIDE NON-EXEMPT Order Details Patient Needs Meds Crushed/Liquid : No Larissa Dubois RN-PATIENT CARE BEDSIDE NON-EXEMPT - 07/22/2021 3:29 EDT Electronically signed by Rekha [facility] Conversion Molded Grid And Parts Inspector Cerner at 05/27/2022 9:17 PM CDT documented in this encounter Plan of Treatment Not on file documented as of this encounter Visit Diagnoses Not on filedocumented in this encounter Care Teams Nematology Teacher Relationship Specialty Start Date End Date Linh Doty, 8 [facility] [address] [place] [address] PCP - General Family Medicine 11/04/22 Lizzie Alves PA-C [address] [place] [address], [facility] [address] [place] [address] Hospitalist Cardiology 05/27/23 Kaushik Mariscal MD [address] [facility] [address] [place] [address] Rackman Electrophysiology 11/18/23 documented as of this encounter
[2024-08-23 14:04] LABS: Hematocrit 50.7 % (37.0-47.0); Hemoglobin 16.8 g/dL (12.2-16.2); Immature Granulocytes % 0.3 %; Mean Corpuscular HGB Conc 33.1 g/dL (31.8-35.4); Mean Corpuscular Hemoglobin 32.0 pg (27.0-31.2); Mean Corpuscular Volume 96.6 fl (81-99); Nucleated Red Blood Cells % 0 %; Platelet Count 81 K/mm3 (142-424); Red Blood Count 5.25 M/mm3 (4.20-5.40); Red Cell Distribution Width-SD 49.7 fL; White Blood Count 10.2 K/mm3 (4.8-10.8)
== END 2024-08-23 23:59 | disposition home or self-care (01) ==
LOC: LAB 13:28
PROVIDERS: PCP Nurse Practitioner Family; Visit Provider Internal Medicine Medical Oncology
DX: D69.6 Thrombocytopenia, unspecified (principal)
CPT/HCPCS: 36415; 85025

== ENCOUNTER 2024-09-16 08:54 | Outpatient (CLI) | payer MEDICARE, SELFPAY ==
--- OUTSIDE RECORDS SUMMARY | 2024-07-11 06:00 | XMS_ITS | Encounter Summary ---
Author Organization [employer] ([place], [place], [place], [place]) Address [address] [place] [address] Care Team Providers Care Boxing Trainer Name Role Phone Linh Doty DO Primary Care Provider Lizzie Alves PA-C Unavailable [phone] Kaushik Mariscal MD Unavailable Reason for Visit * Reason Comments Pacemaker /ICD Home Monitoring Encounter Details Date Type Department Care Team (Late st Contact Info) Description 07/11/2024 6:00 AM EDT Clinical Support [facility] Electrophysiology [address] [place] [address] Louise Gottlieb MD [address] [facility] [address] [place] [address] Encounter for adjustment or management of cardiac [...] Date Mendez rded Speak language other than Micronesian at home Not on file 02/27/2023 Want [...] (HCC) documented in this encounter Care Teams Boxing Trainer Relationship Specialty Start Date End Date Linh Doty, [address] [facility] [address] [place] [address] PCP - General Family Medicine 11/04/22 Lizzie Alves PA-C [address] [facility], [facility] [address] [place] [address] Hospitalist Cardiology 05/27/23 Kaushik Mariscal MD [address] [facility] [address] [place] [address] Threshing Machine Operator Electrophysiology 11/18/23 documented as of this encounter
--- OUTSIDE RECORDS SUMMARY | 2024-07-15 05:00 | XMS_ITS | Encounter Summary ---
Author Organization [employer] ([place], [place], [place], [place]) Address [address] [place] [address] Care Team Providers Care Mobile Unit Assistant Name Role Phone Linh Doty DO Primary Care Provider Lizzie Alves PA-C Unavailable [phone] Kaushik Mariscal MD Unavailable Reason for Visit * Reason Comments Pacemaker /ICD Home Monitoring Encounter Details Date Type Department Care Team (Late st Contact Info) Description 07/15/2024 5:00 AM EDT Clinical Support [facility] Electrophysiology [address] [place] [address] Louise Gottlieb MD [address] [facility] [address] [place] [address] Encounter for adjustment or management of cardiac [...] Date Mendez rded Speak language other than Cambodian at home Not on file 02/27/2023 Want [...] (HCC) documented in this encounter Care Teams Mobile Unit Assistant Relationship Specialty Start Date End Date Linh Doty, [address] [facility] [address] [place] [address] PCP - General Family Medicine 11/04/22 Lizzie Alves PA-C [address] [facility], [facility] [address] [place] [address] Hospitalist Cardiology 05/27/23 Kaushik Mariscal MD [address] [facility] [address] [place] [address] Production Assembly Supervisor Electrophysiology 11/18/23 documented as of this encounter
--- OUTSIDE RECORDS SUMMARY | 2024-08-15 05:00 | XMS_ITS | Encounter Summary ---
Author Organization [employer] ([place], [place], [place], [place]) Address [address] [place] [address] Care Team Providers Care 911 Operator Name Role Phone Lalitha Linh Delilah DAVIS Primary Care Provider [phone] Lizzie Alves PA-C Unavailable [phone] Kaushik Mariscal MD Unavailable Reason for Visit * Reason Comments Pacemaker /ICD Home Monitoring Encounter Details Date Type Department Care Team (Late st Contact Info) Description 08/15/2024 5:00 AM EDT Clinical Support [facility] Electrophysiology [address] [place] [address] Kaushik Mariscal MD [address] [facility] [address] [place] [address] Encounter for adjustment or management of cardiac [...] Date Mendez rded Speak language other than Zimbabwean at home Not on file 02/27/2023 Want [...] (HCC) documented in this encounter Care Teams 911 Operator Relationship Specialty Start Date End Date Linh Doty, 8 [facility] [address] [place] [address] PCP - General Family Medicine 11/04/22 Lizzie Alves PA-C [address] [facility], [facility] [address] [place] [address] Hospitalist Cardiology 05/27/23 Kaushik Mariscal MD [address] [facility] [address] [place] [address] Sodium Methylate Operator Electrophysiology 11/18/23 documented as of this encounter
[2024-09-16] VITALS (12 sets, daily range): BP systolic 86–123; BP diastolic 60–72; PULSE 68–96; RESP 15–18; TEMP 36.4; O2SAT 91–100; BMI 23.3
--- OUTSIDE RECORDS SUMMARY | 2024-09-16 08:56 | XMS_ITS | Encounter Summary ---
Author Organization [employer] ([place], [place], [place], [place]) Address [address] [place] [address] Care Team Providers Care Benzol Still Operator Name Role Phone Lalitha Linhkarthikeyan Mazariegos DO Primary Care Provider [phone] Lizzie Alves PA-C Unavailable [phone] Kaushik Mariscal MD Unavailable Encounter Details Date Type Department Care Team (Late st Contact Info) Description 08/27/2021 Transcribed Document [facility] [place] [address] [place] [address] ProviderChad MD [address] [place] [address] Social History Tobacco Use Types Packs/Day Years Used Date Smoking Tobacco: Never Assessed Family and Community Support Answer Geremias e Recorded Help with Day to Day Activities Not on file 02/27/2023 Feeling Lonely or Isolated Not on file 02/27 Educational Attainment Answer Date Mendez rded Speak language other than Nepalese at home Not on file 02/27/2023 Want [...] Fats and oils Meat fat, or shortening. [place] butter, hydrogenated oils, palm oil, coconut oil, [...] provider. Document Revised: 04/01/2018 Document Reviewed: 03/05/2018 [employer] Patient Education ? 2020 [employer]. Pharmacology General Anesthesia, Adult, Care After This [...] activities are safe for you. ??? Take clvq-ibk-mocfieh and prescription medicines only as told by [...] provider. Document Revised: 10/11/2020 Document Reviewed: 05/10/2020 [employer] Patient Education ? 2020 [employer] Procedures Pacemaker Implantation, Adult, Care After [...] these instructions at home: Medicines ??? Take llxt-xqy-xwjtatv and prescription medicines only as told by [...] or bruising over the incision. ??? Take vqpb-xzr-cqlwduj and prescription medicines only as told by [...] provider. Document Revised: 12/28/2019 Document Reviewed: 12/28/2019 [employer] Patient Education ? 2020 [employer]. documented in this encounter Plan of Treatment Not on file documented as of this encounter Visit Diagnoses Not on filedocumented in this encounter Care Teams Benzol Still Operator Relationship Specialty Start Date End Date Linh Doty, 8 [facility] [address] [place] [address] PCP - General Family Medicine 11/04/22 Lizzie Alves PA-C [address] [facility], [facility] [address] [place] [address] Hospitalist Cardiology 05/27/23 Kaushik Mariscal MD 1401 [facility] [address] [place] [address] Injection Mold Tooling Technician Electrophysiology 11/18/23 documented as of this encounter
--- OUTSIDE RECORDS SUMMARY | 2024-09-16 08:56 | XMS_ITS | Encounter Summary ---
Author Organization [employer] ([place], [place], [place], [place]) Address [address] [place] [address] Care Team Providers Care Painting And Coating Worker Name Role Phone Lalitha Linhkarthikeyan Mazariegos DO Primary Care Provider [phone] Lizzie Alves PA-C Unavailable [phone] Kaushik Mariscal MD Unavailable Encounter Details Date Type Department Care Team (Late st Contact Info) Description 08/26/[address] [facility] [place] Family Medicine [address] [place] [address] ProviderChad MD [address] [place] [address] Social History Tobacco Use Types Packs/Day [...] On: 08/26/2021 15:19 EDT by Samuel Anders Pi/Senior Research Associate Cert Lead Meds to Bed Enrollment Patient Enrollment Decision: : Yes/enroll in meds to bed program Samuel Anders Pi/Senior Research Associate Cert Lead - 08/27/2021 10:26 EDT documented in this encounter Plan of Treatment Not on file documented as of this encounter Visit Diagnoses Not on filedocumented in this encounter Care Teams Painting And Coating Worker Relationship Specialty Start Date End Date Linh Doty, 8 [facility] [address] [place] [address] PCP - General Family Medicine 11/04/22 Lizzie Alves PA-C [address] [place] [address], [facility] [address] [place] [address] Hospitalist Cardiology 05/27/23 Kaushik Mariscal MD 1401 [facility] [address] [place] [address] Horse Trainer Electrophysiology 11/18/23 documented as of this encounter
--- OUTSIDE RECORDS SUMMARY | 2024-09-16 08:56 | XMS_ITS | Encounter Summary ---
Author Organization [employer] ([place], [place], [place], [place]) Address [address] [place] [address] Care Team Providers Care Digital Marketing Project Manager Name Role Phone Lalitha Linhkarthikeyan Mazariegos DO Primary Care Provider Lizzie Alves PA-C Unavailable [phone] Kaushik Mariscal MD Unavailable Encounter Details Date Type Department Care Team (Late st Contact Info) Description 08/26/2021 Transcribed Document [facility] [place] [address] [place] [address] ProviderChad MD [address] [place] [address] Social History Tobacco Use Types Packs/Day [...] SMITH on 4 IC. Pt transferred to [facility] via wheelchair and all belongings. ABBIE MANDUJANO RN - 08/26/2021 15:01 EDT Electronically signed by Rekha [facility] Conversion Drying Equipment Operator Cerner at 05/27/2022 9:03 PM CDT documented in this encounter Plan of Treatment Not on file documented as of this encounter Visit Diagnoses Not on filedocumented in this encounter Care Teams Digital Marketing Project Manager Relationship Specialty Start Date End Date Lnih Doty, DO 8 [facility] [address] [place] [address] PCP - General Family Medicine 11/04/22 Lizzie Alves PA-C 14[address] [facility], [facility] [address] [place] [address] Hospitalist Cardiology 05/27/23 Kaushik Mariscal MD 1401 [facility] [address] [place] [address] Skein Washer Electrophysiology 11/18/23 documented as of this encounter
--- OUTSIDE RECORDS SUMMARY | 2024-09-16 08:56 | XMS_ITS | Encounter Summary ---
Author Organization [employer] ([place], [place], [place], [place]) Address [address] [place] [address] Care Team Providers Care Conduit Cleaner Name Role Phone Lalitha Linhkarthikeyan Mazariegos DO Primary Care Provider [phone] Lizzie Alves PA-C Unavailable [phone] Kaushik Mariscal MD Unavailable Encounter Details Date Type Department Care Team (Late st Contact Info) Description 08/26/2021 Transcribed Document [facility] [place] [address] [place] [address] ProviderChad MD [address] [place] [address] Social History Tobacco Use Types Packs/Day Years Used Date Smoking Tobacco: Never Assessed Family and Community Support Answer Geremias e Recorded Help with Day to Day Activities Not on file 02/27/2023 Feeling Lonely or Isolated Not on file 02/27 Educational Attainment Answer Date Emndez rded Speak language other than Moldovan at [...] Age: 56 Years Sex: Female : 1965 Gauge Operator: Kaushik Mariscal MD Indication: 56-year-old female [...] pulse generator was a [place] model [place] VR [id number] SN [id number] The V ventricular lead was a SJM model Durata 7122Q/58 serial number [id number] with a sensing of 11 mV, impedance [...] on filedocumented in this encounter Care Teams Conduit Cleaner Relationship Specialty Start Date End Date Linh Doty, 8 [facility] [address] [place] [address] PCP - General Family Medicine 11/04/22 Lizzie Alves PA-C 1401 [facility], [facility] [address] [place] [address] Hospitalist Cardiology 05/27/23 Kaushik Mariscal MD [address] [facility] [address] [place] [address] Oracle Forms Developer Electrophysiology 11/18/23 documented as of this encounter
--- OUTSIDE RECORDS SUMMARY | 2024-09-16 08:56 | XMS_ITS | Encounter Summary ---
Author Organization [employer] ([place], [place], [place], [place]) Address [address] [place] [address] Care Team Providers Care Durable Medical Equipment Technician Name Role Phone Lalitha Linhkarthikeyan Mazariegos DO Primary Care Provider [phone] Lizzie Alves PA-C Unavailable [phone] Kaushik Mariscal MD Unavailable Encounter Details Date Type Department Care Team (Late st Contact Info) Description 08/26/2021 Transcribed Document [facility] [place] [address] [place] [address] ProviderChad MD [address] [place] [address] Social History Tobacco Use Types [...] Electronically signed by Reyna Da Silva Conversion Job Putter Up And Ticket Preparer Cerner at 05/27/2022 9:04 PM CDT documented in this encounter Plan of Treatment Not on file documented as of this encounter Visit Diagnoses Not on filedocumented in this encounter Care Teams Durable Medical Equipment Technician Relationship Specialty Start Date End Date Linh Doty, 8 [facility] [address] [place] [address] PCP - General Family Medicine 11/04/22 Lizzie Alves PA-C 1401 [facility], [facility] [address] [place] [address] Hospitalist Cardiology 05/27/23 Kaushik Mariscal MD 1401 [facility] [address] [place] [address] Title Clerk Automobile Electrophysiology 11/18/23 documented as of this encounter
--- OUTSIDE RECORDS SUMMARY | 2024-09-16 08:56 | XMS_ITS | Encounter Summary ---
Author Organization [employer] ([place], [place], [place], [place]) Address [address] [place] [address] Care Team Providers Care Mill Supervisor Name Role Phone Lalitha Linhkarthikeyan Mazariegos DO Primary Care Provider [phone] Lizzie Alves PA-C Unavailable [phone] Kaushik Mariscal MD Unavailable Encounter Details Date Type Department Care Team (Late st Contact Info) Description 08/27/2021 Transcribed Document [facility] [place] Family Medicine [address] [place] [address] ProviderChad MD [address] [place] [address] Social History Tobacco Use Types Packs/Day Years Used Date Smoking Tobacco: Never Assessed Family and Community Support Answer Geremias e Recorded Help with Day to Day Activities Not on file 02/27/2023 Feeling Lonely or Isolated Not on file 02/27 Educational Attainment Answer Date Mendez rded Speak language other than Gambian at home Not on file 02/27/2023 Want [...] Policy Numbers : Insurance 1 Health Plan: N42 MANAGED MEDICARE Policy Number: [id number] Authorization Number: [id number] Insurance Primary Name : [facility] MANAGED MEDICARE Policy Number: [id number] Authorization Number-Primary : [id number] Authorized Service Begin Date-Primary : 08/26/2021 EDT Historical Authorization Comments-Primary : No Authorization Comments Found EZEKIEL PHILLIPS RN - 08/27/2021 11:52 EDT Electronically signed by Rekha [facility] Conversion Fashion Director Party Plan Sales Cerner at 05/27/2022 8:58 PM CDT documented in this encounter Plan of Treatment Not on file documented as of this encounter Visit Diagnoses Not on filedocumented in this encounter Care Teams Mill Supervisor Relationship Specialty Start Date End Date Linh Doty, 8 [facility] [address] [place] [address] PCP - General Family Medicine 11/04/22 Lizzie Alves PA-C [address] [place] [address] [address] [place] [address] Hospitalist Cardiology 05/27/23 Kaushik Mariscal MD [address] [facility] [address] [place] [address] Pole Frame Construction Worker Electrophysiology 11/18/23 documented as of this encounter
--- OUTSIDE RECORDS SUMMARY | 2024-09-16 08:56 | XMS_ITS | Encounter Summary ---
Author Organization [employer] ([place], [place], [place], [place]) Address [address] [place] [address] Care Team Providers Care Enamel Pulverizer Name Role Phone Lalitha Linhkarthikeyan Mazariegos DO Primary Care Provider [phone] Lizzie Alves PA-C Unavailable [phone] Kaushik Mariscal MD Unavailable Encounter Details Date Type Department Care Team (Late st Contact Info) Description 07/16/2021 Transcribed Document [facility] [place] Family Medicine [address] [place] [address] ProviderChad MD [address] [place] [address] Social History Tobacco Use Types Packs/Day [...] for this consult. Rose Mary Hickey PharmD [phone] Electronically signed by Rekha, [facility] Conversion Wafer Polishing Lead Worker Cerner at 05/27/2022 9:11 PM CDT documented in this encounter Plan of Treatment Not on file documented as of this encounter Visit Diagnoses Not on filedocumented in this encounter Care Teams Enamel Pulverizer Relationship Specialty Start Date End Date Linh Doty, 8 [facility] [address] [place] [address] PCP - General Family Medicine 11/04/22 Lizzie Alves PA-C [address] [place] [address], [facility] [address] [place] [address] Hospitalist Cardiology 05/27/23 Kaushik Mariscal MD 1401 [facility] [address] [place] [address] Construction Executive Electrophysiology 11/18/23 documented as of this encounter
--- OUTSIDE RECORDS SUMMARY | 2024-09-16 08:56 | XMS_ITS | Encounter Summary ---
Author Organization [employer] ([place], [place], [place], [place]) Address [address] [place] [address] Care Team Providers Care Manager Life Insurance Name Role Phone Lalitha Linh Delilah DAVIS Primary Care Provider [phone] Lizzie Alves PA-C Unavailable [phone] Kaushik Mariscal MD Unavailable Encounter Details Date Type Department Care Team (Late st Contact Info) Description 08/26/2021 Transcribed Document [facility] [place] [address] [place] [address] ProviderChad MD [address] [place] [address] Social History Tobacco Use Types Packs/Day [...] Source : Stated Height Entry Format : [place] Height, Feet : 5 ft(Converted to: 152 cm, 60 Inch) Height, Inches : 6 Inch(Converted to: 0 ft 6 Inch, 15.24 cm) Clinical Height : 167.64 cm Weight Source : Standing scale Weight Entry Format : [place] Clinical Dosing Weight : 64.55 kg Weight, Pounds : 142 lb Body Surface Area (BSA) : 1.73 m2 Body Mass Index : 23 kg/m2 [place] Body Weight : 59 kg ABBIE MANDUJANO [...] ABBIE MANDUJANO RN - 08/26/2021 10:13 EDT [place] Suicide Severity Rating Scale (C-SSRS) CSSRS Past [...] Support Person/Pt Rep Name : Tereso Coffey [phone] Want Family/Rep/Phys Notified of Admit : No Emergency Contact #1 : na Emergency Contact #1 Phone Number : na Emergency Contact #1 Relationship : na Emergency Contact #2 : na Emergency Contact #2 Phone Number : na Emergency Contact #2 Relationship : na Primary Language : Honduran Preferred Communication Mode : Verbal Communication Barrier : None Oil Burner Installer Needed : No ABBIE MANDUJANO RN - [...] Scale Risk Level : 0-24 Low Risk Enterprise Fall Interventions : Bed in low position, [...] in this encounter Care Teams Manager Life Insurance Relationship Specialty Start Date End Date Linh Doty DO [address] [address] PCP - General Family Medicine 11/04/22 Lizzie Alves PA-C 1401 [facility], [facility] [address] [place] [address] Hospitalist Cardiology 05/27/23 Kaushik Mariscal MD 1401 [facility] [address] [place] [address] Certified Executive Chef Electrophysiology 11/18/23 documented as of this encounter
--- OUTSIDE RECORDS SUMMARY | 2024-09-16 08:56 | XMS_ITS | Encounter Summary ---
Author Organization [employer] ([place], [place], [place], [place]) Address [address] [place] [address] Care Team Providers Care Self Contained Behavior Unit Teacher Name Role Phone Lalitha Linhkarthikeyan Mazariegos DO Primary Care Provider [phone] Lizzie Alves PA-C Unavailable [phone] Kaushik Mariscal MD Unavailable Encounter Details Date Type Department Care Team (Late st Contact Info) Description 07/31/2021 Transcribed Document [facility] [place] [address] [place] [address] ProviderChad MD [address] [place] [address] Social History Tobacco Use Types Packs/Day Years Used Date Smoking Tobacco: Never Assessed Family and Community Support Answer Geremias e Recorded Help with Day to Day Activities Not on file 02/27/2023 Feeling Lonely or Isolated Not on file 02/27 Educational Attainment Answer Date Mendez rded Speak language other than Wallisian at home Not on file 02/27/2023 Want [...] On: 07/31/2021 8:56 EDT by Bonita Katz, Sole Dyer Primary Insurance Authorization Authorization and Policy Numbers : Insurance 1 Health Plan: [employer] MANAGED MEDICARE Policy Number: [id number] Authorization Number: Insurance Primary Name : [employer] MANAGED MEDICARE Policy Number: [id number] Authorization Status-Primary : Admit approved Auth/Referral Contact Name-Primary : [place] Reference Number-Primary : [id number] Authorization Number-Primary : [id number] Number of Days Authorized-Primary : 5 Day(s) Authorized Service Begin Date-Primary : 07/16/2021 EDT Authorized Service End Date-Primary : 07/21/2021 EDT Authorization Comments-Primary : Per website - Under review. Historical Authorization Comments-Primary : Comment 1: Discharge summary as well as continued stay clinical 07/23 - discharge faxed. (Bonita Katz, Sole Dyer 07/29/2021 15:50) Comment 2: 07/20-07/22 CLINICALS FAXED [...] Jones, Rn-Utilization Review 07/17/2021 15:17) Bonita Katz, Sole Dyer - 07/31/2021 8:56 EDT documented in this encounter Plan of Treatment Not on file documented as of this encounter Visit Diagnoses Not on filedocumented in this encounter Care Teams Self Contained Behavior Unit Teacher Relationship Specialty Start Date End Date Linh Doty DO [address] [place] [address] PCP - General Family Medicine 11/04/22 Lizzie Alves PA-C 1401 [facility], [facility] [address] [place] [address] Hospitalist Cardiology 05/27/23 Kaushik Mariscal MD 1401 [facility] [address] [place] [address] Family Manager Electrophysiology 11/18/23 documented as of this encounter
--- OUTSIDE RECORDS SUMMARY | 2024-09-16 08:56 | XMS_ITS | Encounter Summary ---
Author Organization [employer] ([place], [place], [place], [place]) Address [address] [place] [address] Care Team Providers Care Mounted Police Name Role Phone Lalitha Linhkarthikeyan Mazariegos DO Primary Care Provider Lizzie Alves PA-C Unavailable [phone] Kaushik Mariscal MD Unavailable Encounter Details Date Type Department Care Team (Late st Contact Info) Description 07/16/2021 Transcribed Document [facility] [place] Family Medicine [address] [place] [address] ProviderChad MD [address] [place] [address] Social History Tobacco Use Types Packs/Day Years Used Date Smoking Tobacco: Never Assessed Family and Community Support Answer Geremias e Recorded Help with Day to Day Activities Not on file 02/27/2023 Feeling Lonely or Isolated Not on file 02/27 Educational Attainment Answer Date Mendez rded Speak language other than Colombian at home Not on file 02/27/2023 Want [...] Historical ProviderMD - 07/16/2021 12:00 PM CDT [place] Suicide Severity Rating Scale (C-SSRS) Entered On: 07/16/2021 14:34 EDT Performed On: 07/16/2021 14:34 EDT by MAIKEL ESPARZA RN [place] Suicide Severity Rating Scale (C-SSRS) CSSRS Past Month Wish to be : No CSSRS Past Month Suicidal Thoughts : No CSSRS Lifetime Suicide Behavior : No Suicide Severity Rating Score : 0 Suicide Severity Rating : No Additional Care Required at this time MAIKEL ESPARZA RN - 07/16/2021 14:34 EDT Electronically signed by [facility], [facility] Conversion Body Mechanic Apprentice Cerner at 05/27/2022 9:15 PM CDT documented in this encounter Plan of Treatment Not on file documented as of this encounter Visit Diagnoses Not on filedocumented in this encounter Care Teams Mounted Police Relationship Specialty Start Date End Date Linh Doty, 8 [facility] [address] [place] [address] PCP - General Family Medicine 11/04/22 Lizzie Alves PA-C 1401 [facility], [facility] [address] [place] [address] Hospitalist Cardiology 05/27/23 Kaushik Mariscal MD 1401 [facility] [address] [place] [address] Manager English Electrophysiology 11/18/23 documented as of this encounter
--- OUTSIDE RECORDS SUMMARY | 2024-09-16 08:56 | XMS_ITS | Encounter Summary ---
Author Organization [employer] ([place], [place], [place], [place]) Address [address] [place] [address] Care Team Providers Care Pump Tender Name Role Phone Lalitha Linhkarthikeyan Mazariegos DO Primary Care Provider [phone] Lizzie Alves PA-C Unavailable [phone] Kaushik Mariscal MD Unavailable Encounter Details Date Type Department Care Team (Late st Contact Info) Description 08/27/2021 Transcribed Document [facility] [place] Family Medicine [address] [place] [address] ProviderChad MD [address] [place] [address] Social History Tobacco Use Types Packs/Day Years Used Date Smoking Tobacco: Never Assessed Family and Community Support Answer Geremias e Recorded Help with Day to Day Activities Not on file 02/27/2023 Feeling Lonely or Isolated Not on file 02/27 Educational Attainment Answer Date Mendez rded Speak language other than Romanian at home Not on file 02/27/2023 Want [...] On: 08/27/2021 11:15 EDT by Jamila Townsend, CHAIRMAN CEO [facility] Provider Status : EST Other Established Provider Name : Linh Doty Patient Phone Number : [phone] Patient Insurance Type : Medicare Source of [...] at ED : Other Primary Language : Romanian [facility] Comment : PCP and CARDIOLOGY appts made, CARDIO EP appt already made Follow Up Needed : No Jamila Townsend, CHAIRMAN CEO - 08/27/2021 11:15 EDT Electronically signed by Rekha [facility] Conversion Tobacco Grower Cerner at 05/27/2022 8:59 PM CDT documented in this encounter Plan of Treatment Not on file documented as of this encounter Visit Diagnoses Not on filedocumented in this encounter Care Teams Pump Tender Relationship Specialty Start Date End Date Luistobias Linh Delilah, DO [address] [facility] [address] [place] [address] PCP - General Family Medicine 11/04/22 Lizzie Alves PA-C [address] [place] [address], [facility] [address] [place] [address] Hospitalist Cardiology 05/27/23 Kaushik Mariscal MD [address] [facility] [place] [address] Regulatory Agency Director Electrophysiology 11/18/23 documented as of this encounter
--- OUTSIDE RECORDS SUMMARY | 2024-09-16 08:56 | XMS_ITS | Encounter Summary ---
Author Organization [employer] ([place], [place], [place], [place]) Address [address] [place] [address] Care Team Providers Care E Learning Designer Name Role Phone Lalitha Linhkarthikeyan Mazariegos DO Primary Care Provider Lizzie Alves PA-C Unavailable [phone] Kaushik Mariscal MD Unavailable Encounter Details Date Type Department Care Team (Late st Contact Info) Description 08/27/2021 Transcribed Document [facility] [place] Family Medicine [address] [place] [address] ProviderChad MD [address] [place], [place] [...] 08/27/2021 13:06 EDT Electronically signed by Rekha [facility] Conversion Diagnostics Sales Developer Cerner at 05/27/2022 9:02 PM CDT documented in this encounter Plan of Treatment Not on file documented as of this encounter Visit Diagnoses Not on filedocumented in this encounter Care Teams E Learning Designer Relationship Specialty Start Date End Date Linh Doty, DO 8 [facility] [address] [place] [address] PCP - General Family Medicine 11/04/22 Lizzie Alves PA-C [address] [facility] [address] [place] [address] Hospitalist Cardiology 05/27/23 Kaushik Mariscal MD [address] [facility] [address] [place] [address] Rainbow Trout Farm Manager Electrophysiology 11/18/23 documented as of this encounter
--- OUTSIDE RECORDS SUMMARY | 2024-09-16 08:56 | XMS_ITS | Encounter Summary ---
Author Organization [employer] ([place], [place], [place], [place]) Address [address] [place] [address] Care Team Providers Care Scientific Photographer Name Role Phone Lalitha Linhkarthikeyan Mazariegos DO Primary Care Provider [phone] Lizzie Alves PA-C Unavailable [phone] Kaushik Mariscal MD Unavailable Encounter Details Date Type Department Care Team (Late st Contact Info) Description 07/16/2021 Transcribed Document [facility] Radiology [address] [id number] Yanick Torres MD [address] [place] [address] [place] [address] Social History Tobacco Use Types Packs/Day Years Used Date Smoking Tobacco: Never Assessed Family and Community Support Answer Geremias e Recorded Help with Day to Day Activities Not on file 02/27/2023 Feeling Lonely or Isolated Not on file 02/27 Educational Attainment Answer Date Mendez rded Speak language other than Chadian at home Not on file 02/27/2023 Want [...] 50 mcg inhalation powder: 1 Puff, Inhalation, [id number], rinse mouth and throat after use, 30 [...] 50 mcg inhalation powder 1 Puff, Inhalation, [id number] folic acid 1 mg oral tablet 1 [...] At risk for sleep apnea / IMO 12276509 / Confirmed High cholesterol / SNOMED CT 75062571 / Confirmed, Active Problems (12) Arteriosclerosis At risk for sleep apnea Cardiomyopathy Chronic CHF Current smoker Gout High cholesterol History of [place] (myocardial infarction) Intermittent claudication Pacemaker PAD (peripheral [...] gallop, S1+ S2 No S3 or S4 [place].. Gastrointestinal: Soft, Non-tender, Non-distended, Normal bowel sounds. [...] on filedocumented in this encounter Care Teams Scientific Photographer Relationship Specialty Start Date End Date Linh Doty, DO [address] [place] [address] PCP - General Family Medicine 11/04/22 Lizzie Alves PA-C [address], [place] [address] [place] [address] Hospitalist Cardiology 05/27/23 Kaushik Mariscal MD 1401 [facility] [place] [address] Regrinder Operator Electrophysiology 11/18/23 documented as of this encounter
--- OUTSIDE RECORDS SUMMARY | 2024-09-16 08:56 | XMS_ITS | Encounter Summary ---
Author Organization [email or web address] ([place], [place], [place], [place]) Address [address] [place] [address] Care Team Providers Care Hydro Station Supervisor Name Role Phone Lalitha Linhkarthikeyan Mazariegos DO Primary Care Provider [phone] Lizzie Alves PA-C Unavailable [phone] Kaushik Mariscal MD Unavailable Encounter Details Date Type Department Care Team (Late st Contact Info) Description 08/26/2021 Transcribed Document [facility] Family Medicine [facility] [place] [address] ProviderChad MD [address] [place] [address] Social History Tobacco Use Types Packs/Day [...] Support Person/Pt Rep Name : Tereso Coffey [phone] Want Family/Rep/Phys Notified of Admit : No Emergency Contact #1 : na Emergency Contact #1 Phone Number : na Emergency Contact #1 Relationship : na Emergency Contact #2 : na Emergency Contact #2 Phone Number : na Emergency Contact #2 Relationship : na Primary Language : Congolese Preferred Communication Mode : Verbal Communication Barrier : None Belt And Link Assembly Supervisor Needed : No ABBIE MANDUJANO RN - [...] Scale Risk Level : 0-24 Low Risk [place] Fall Interventions : Bed in low position, [...] Source : Stated Height Entry Format : [place] Height, Feet : 5 ft(Converted to: 152 cm, 60 Inch) Height, Inches : 6 Inch(Converted to: 0 ft 6 Inch, 15.24 cm) Clinical Height : 167.64 cm Weight Source : Standing scale Weight Entry Format : [place] Clinical Dosing Weight : 64.55 kg Weight, Pounds : 142 lb Body Surface Area (BSA) : 1.73 m2 Body Mass Index : 23 kg/m2 [place] Body Weight : 59 kg ABBIE MANDUJANO [...] ABBIE MANDUJANO RN - 08/26/2021 13:22 EDT [place] Suicide Severity Rating Scale (C-SSRS) CSSRS Past [...] on filedocumented in this encounter Care Teams Hydro Station Supervisor Relationship Specialty Start Date End Date Linh Doty, DO 8 [facility] [address] [place] [address] PCP - General Family Medicine 11/04/22 Lizzie Alves PA-C [address] [place] [address], [facility] [address] [place] [address] Hospitalist Cardiology 05/27/23 Kaushik Mariscal MD 14[address] [facility] [address] [place] [address] Scheduling Clerk Electrophysiology 11/18/23 documented as of this encounter
--- OUTSIDE RECORDS SUMMARY | 2024-09-16 08:56 | XMS_ITS | Encounter Summary ---
Author Organization [employer] ([place], [place], [place], [place]) Address [address] [place] [address] Care Team Providers Care Heavy Equipment Operator/Paver Name Role Phone Lalitha Linhkarthikeyan Mazariegos DO Primary Care Provider [phone] Lizzie Alves PA-C Unavailable [phone] Kaushik Mariscal MD Unavailable Encounter Details Date Type Department Care Team (Late st Contact Info) Description 07/16/2021 Transcribed Document [facility] [place] Family Medicine [address] [place] [address] ProviderChad MD [address] [place] [address] Social History Tobacco Use Types [...] - 07/18/2021 7:35 EDT Electronically signed by [facility] Conversion Negotiator Sales Cerner at 05/27/2022 9:14 PM CDT documented in this encounter Plan of Treatment Not on file documented as of this encounter Visit Diagnoses Not on filedocumented in this encounter Care Teams Heavy Equipment Operator/Paver Relationship Specialty Start Date End Date Linh Doty, 8 [facility] [address] [place] [address] PCP - General Family Medicine 11/04/22 Lizzie Alves PA-C [address] [place] [address], [facility] [address] [place] [address] Hospitalist Cardiology 05/27/23 Kaushik Mariscal MD 1401 [facility] [address] [place] [address] Bowstring Maker Electrophysiology 11/18/23 documented as of this encounter
--- OUTSIDE RECORDS SUMMARY | 2024-09-16 08:56 | XMS_ITS | Encounter Summary ---
Author Organization [employer] ([place], [place], [place], [place]) Address [address] [place] [address] Care Team Providers Care Cafeteria Associate Name Role Phone Lalitha Linhkarthikeyan Mazariegos DO Primary Care Provider [phone] Lizzie Alves PA-C Unavailable [phone] Kaushik Mariscal MD Unavailable Encounter Details Date Type Department Care Team (Late st Contact Info) Description 08/06/2021 Transcribed Document [facility] [place] Family Medicine [address] [place] [address] ProviderChad MD [address] [place] [address] Social History Tobacco Use Types Packs/Day Years Used Date Smoking Tobacco: Never Assessed Family and Community Support Answer Geremias e Recorded Help with Day to Day Activities Not on file 02/27/2023 Feeling Lonely or Isolated Not on file 02/27 Educational Attainment Answer Date Mendez rded Speak language other than Costa Rican at home Not on file 02/27/2023 Want [...] Policy Numbers : Insurance 1 Health Plan: [employer] MANAGED MEDICARE Policy Number: [id number] Authorization Number: Insurance Primary Name : [employer] MANAGED MEDICARE Policy Number: [id number] Authorization Status-Primary : Admit approved Auth/Referral Contact Name-Primary : [place] Reference Number-Primary : [id number] Authorization Number-Primary : [id number] Number of Days Authorized-Primary : 5 Day(s) Authorized Service Begin Date-Primary : 07/16/2021 EDT Authorized Service End Date-Primary : 07/21/2021 EDT Authorization Comments-Primary : Remains pending per portal Historical Authorization Comments-Primary : Comment 1: Per website - Under review. (Boniat Katz, Wharfinger Chief 07/31/2021 08:56) Comment 2: Discharge summary as well as continued stay clinical 07/23 - discharge faxed. (Bonita Katz, Wharfinger Chief 07/29/2021 15:50) Comment 3: 07/20-07/22 CLINICALS FAXED VIA [employer] (Yessi Alaniz RN 07/22/2021 16:49) Comment 4: PER PORTAL IP APPROVED FOR 07/16 UP TO BUT NOT INCLUDING 07/22 (Khushi Jones Rn-Utilization Review 07/19/2021 13:56) Comment 5: UNDER REVIEW PER PORTAL (Khushi Jones Rn-Utilization Review 07/19/2021 09:22) Comment 6: CLINICAL FAXED VIA [employer] (Khushi Jones Rn-Utilization Review 07/17/2021 15:22) Comment 7: REF# PER [facility]. CLINICAL FAXED VIA [employer] (Khushi Jones Rn-Utilization Review 07/17/2021 15:17) WALDO PIÑA RN - 08/06/2021 13:43 EDT Electronically signed by Alberto Da Silva Geraldine Fish Dressing Machine Feeder Kalia at 05/27/2022 9:27 PM CDT documented in this encounter Plan of Treatment Not on file documented as of this encounter Visit Diagnoses Not on filedocumented in this encounter Care Teams Cafeteria Associate Relationship Specialty Start Date End Date Linh Doty, 8 [facility] [address] [place] [address] PCP - General Family Medicine 11/04/22 Lizzie Alves PA-C 1401 [facility], [facility] [address] [place] [address] Hospitalist Cardiology 05/27/23 Kaushik Mariscal MD [address] [facility] [address] [place] [address] Cleaning Supervisor Electrophysiology 11/18/23 documented as of this encounter
--- OUTSIDE RECORDS SUMMARY | 2024-09-16 08:56 | XMS_ITS | Encounter Summary ---
Author Organization [employer] ([place], [place], [place], [place]) Address [address] [place] [address] Care Team Providers Care Meat Service Team Member Name Role Phone Lalitha Linh Delilah DAVIS Primary Care Provider [phone] Lizzie Alves PA-C Unavailable [phone] Kaushik Mariscal MD Unavailable Encounter Details Date Type Department Care Team (Late st Contact Info) Description 07/16/2021 Transcribed Document [facility] [place] Family Medicine [address] [place] [address] ProviderChad MD [address] [place] [address] Social History Tobacco Use Types Packs/Day Years Used Date Smoking Tobacco: Never Assessed Family and Community Support Answer Geremias e Recorded Help with Day to Day Activities Not on file 02/27/2023 Feeling Lonely or Isolated Not on file 02/27 Educational Attainment Answer Date Mendez rded Speak language other than Sudanese at home Not on file 02/27/2023 Want [...] 15:57 EDT by Pat Gallegos Emergency Room Carpenters Phone Call for Consults Consult Phone Call/Page Attempt : First call Consult Reason : infected pacemaker site Provider Service Notified Name : Infectious Disease Consult, Additional Information : Spoke to Cheryle at Inf Disease office and informed her of consult. Pat Gallegos [facility] Carpenters - 07/16/2021 15:57 EDT Electronically signed by Rek[facility] Conversion Shearer Screen Measurer And Trimmer Cerner at 05/27/2022 9:19 PM CDT documented in this encounter Plan of Treatment Not on file documented as of this encounter Visit Diagnoses Not on filedocumented in this encounter Care Teams Meat Service Team Member Relationship Specialty Start Date End Date Linh Doty, DO [address] [facility] [address] [place] [address] PCP - General Family Medicine 11/04/22 Lizzie Alves PA-C 1401 [facility], [facility] [address] [place] [address] Hospitalist Cardiology 05/27/23 Kaushik Mariscal MD 1401 [facility] [address] [place] [address] Reference Library Assistant Electrophysiology 11/18/23 documented as of this encounter
--- OUTSIDE RECORDS SUMMARY | 2024-09-16 08:56 | XMS_ITS | Encounter Summary ---
Author Organization [employer] ([place], [place], [place], [place]) Address [address] [place] [address] Care Team Providers Care Marine Electrician Name Role Phone Lalitha Linhkarthikeyan Mazariegos DO Primary Care Provider [phone] Lizzie Alves PA-C Unavailable [phone] Kaushik Mariscal MD Unavailable Encounter Details Date Type Department Care Team (Late st Contact Info) Description 07/16/2021 Transcribed Document [facility] [place] Family Medicine [address] [place] [address] ProviderChad MD [address] [place] [address] Social History Tobacco Use Types Packs/Day [...] MAIKEL ESPARZA RN - 07/16/2021 14:34 EDT documented in this encounter Plan of Treatment Not on file documented as of this encounter Visit Diagnoses Not on filedocumented in this encounter Care Teams Marine Electrician Relationship Specialty Start Date End Date Linh Doty, DO 8 [facility] [address] [place] [address] PCP - General Family Medicine 11/04/22 Lizzie Alves PA-C [address] [place] [address], [facility] [address] [place] [address] Hospitalist Cardiology 05/27/23 Kaushik Mariscal MD 1401 [facility] [address] [place] [address] Torch Solderer Electrophysiology 11/18/23 documented as of this encounter
--- OUTSIDE RECORDS SUMMARY | 2024-09-16 08:56 | XMS_ITS | Encounter Summary ---
Author Organization [employer] ([place], [place], [place], [place]) Address [address] [place] [address] Care Team Providers Care Data Sme Name Role Phone Lalitha Linh Delilah DAVIS Primary Care Provider [phone] Lizzie Alves PA-C Unavailable [phone] Kaushik Mariscal MD Unavailable Encounter Details Date Type Department Care Team (Late st Contact Info) Description 07/16/2021 Transcribed Document [facility] [place] [address] [place] [address] ProviderChad MD [address] [place] [address] Social History Tobacco Use Types Packs/Day Years Used Date Smoking Tobacco: Never Assessed Family and Community Support Answer Geremias e Recorded Help with Day to Day Activities Not on file 02/27/2023 Feeling Lonely or Isolated Not on file 02/27 Educational Attainment Answer Date Mendez rded Speak language other than Yi at home Not on file 02/27/2023 Want [...] with bloody drainage. Patient was admitted [facility] 07/16/20[facility]. Post generator change, patient [...] m - 1,000 mg, IV Piggyback, Inj, [id number], infuse over 1 Hour(s) Cardiovascular carvedilol - [...] At risk for sleep apnea / IMO 79210623 / Confirmed High cholesterol / SNOMED CT 80150364 / Confirmed Canceled: At risk for sleep apnea / IMO 61764488 Canceled: COPD (chronic obstructive pulmonary disease) / SNOMED CT 01768165 Canceled: HTN (hypertension) / SNOMED CT 7019237688, Active Problems (12) Arteriosclerosis At risk for sleep apnea Cardiomyopathy Chronic CHF Current smoker Gout High cholesterol History of [place] (myocardial infarction) Intermittent claudication Pacemaker PAD (peripheral [...] Normal strength, No tenderness. Integumentary: Warm, Dry, [place]. Neurologic: Alert, Oriented, Normal sensory, Normal motor [...] Radiology results Radiology Results (Last 48 hours) [id number] -- 07/16/2021 14:13 CR Chest 1 Vw [...] filedocumented in this encounter Care Teams Data Sme Relationship Specialty Start Date End Date Linh Doty, DO 8 [facility] [address] [place] [address] PCP - General Family Medicine 11/04/22 Lizzie Alves PA-C 1401 [facility], [facility] [address] [place] [address] Hospitalist Cardiology 05/27/23 Kaushik Mariscal MD 1401 [facility] [address] [place] [address] Still Tender Electrophysiology 11/18/23 documented as of this encounter
--- OUTSIDE RECORDS SUMMARY | 2024-09-16 08:56 | XMS_ITS | Encounter Summary ---
Author Organization [employer] ([place], [place], [place], [place]) Address [address] [place] [address] Care Team Providers Care Airset Molder Name Role Phone Lalitha Linhkarthikeyan Mazariegos DO Primary Care Provider [phone] Lizzie Alves PA-C Unavailable [phone] Kaushik Mariscal MD Unavailable Encounter Details Date Type Department Care Team (Late st Contact Info) Description 07/16/2021 Transcribed Document [facility] [place] [address] [place] [address] ProviderChad MD [address] [place] [address] Social History Tobacco Use Types Packs/Day Years Used Date Smoking Tobacco: Never Assessed Family and Community Support Answer Geremias e Recorded Help with Day to Day Activities Not on file 02/27/2023 Feeling Lonely or Isolated Not on file 02/27 Educational Attainment Answer Date Mendez rded Speak language other than Monegasque at home Not on file 02/27/2023 Want [...] MARIAH PRETTYNN, PT - 07/18/2021 15:53 EDT documented in this encounter Plan of Treatment Not on file documented as of this encounter Visit Diagnoses Not on filedocumented in this encounter Care Teams Airset Molder Relationship Specialty Start Date End Date Linh Doty, 8 [facility] [address] [place] [address] PCP - General Family Medicine 11/04/22 Lizzie Alves PA-C [address] [place] [address], [facility] [address] [place] [address] Hospitalist Cardiology 05/27/23 Kuashik Mariscal MD 1401 [facility] [address] [place] [address] Life Cycle Assessment Analyst Electrophysiology 11/18/23 documented as of this encounter
--- OUTSIDE RECORDS SUMMARY | 2024-09-16 08:56 | XMS_ITS | Encounter Summary ---
Author Organization [employer] ([place], [place], [place], [place]) Address [address] [place] [address] Care Team Providers Care Tobacco Wetter Name Role Phone Lalitha Linh Delilah DAVIS Primary Care Provider [phone] Lizzie Alves PA-C Unavailable [phone] Kaushik Mariscal MD Unavailable Encounter Details Date Type Department Care Team (Late st Contact Info) Description 07/16/2021 Transcribed Document [facility] [place] Family Medicine [address] [place] [address] ProviderChad MD [address] [place] [address] Social History Tobacco Use Types Packs/Day Years Used Date Smoking Tobacco: Never Assessed Family and Community Support Answer Geremias e Recorded Help with Day to Day Activities Not on file 02/27/2023 Feeling Lonely or Isolated Not on file 02/27 Educational Attainment Answer Date Mendez rded Speak language other than Frisian at home Not on file 02/27/2023 Want [...] GEORGE MD-CAR Basic Information PCP: Linh Doty Senior Field Service Engineer: Pedro Cruz NP Chief Complaint Draining from [...] 50 mcg inhalation powder 1 Puff, Inhalation, [id number] folic acid 1 mg oral tablet 1 [...] 50 mcg inhalation powder: 1 Puff, Inhalation, [id number], rinse mouth and throat after use, 30 [...] All Problems High cholesterol / SNOMED CT 89087357 / Confirmed PAD (peripheral artery disease) / SNOMED CT 6164298900 / Confirmed Chronic CHF / SNOMED CT 004887220 / Confirmed Current smoker / SNOMED CT 504853605 / Confirmed Arteriosclerosis / SNOMED CT 601486851 / Confirmed Intermittent claudication / SNOMED CT 367411857 / Confirmed Cardiomyopathy / SNOMED CT 363520297 / Confirmed History of NE (myocardial infarction) / SNOMED CT 1409263291 / Confirmed Pacemaker / SNOMED CT 2710422699 / Confirmed Stented coronary artery / SNOMED CT 9538114168 / Confirmed Gout / SNOMED CT 311779661 / Confirmed At risk for sleep apnea / IMO 82847240 / Confirmed Resolved: History of ventricular tachycardia / SNOMED CT 5872443778 ICD placed in past for arrythmia. Canceled: HTN (hypertension) / SNOMED CT 7709062906 Canceled: COPD (chronic obstructive pulmonary disease) / SNOMED CT 17979394 Canceled: At risk for sleep apnea / IMO 54240250 Canceled: History of ischemic cardiomyopathy / SNOMED CT 482923834 Canceled: Abdominal aortic stenosis / SNOMED CT 472027432 Canceled: Shortness of breath / SNOMED CT 202488715, Active Problems (12) Arteriosclerosis At risk for [...] Normal range of motion. Integumentary: Warm, Dry, [place]. Neurologic: Alert, Oriented. Psychiatric: Cooperative, Appropriate mood [...] ICD implanted 07/2011 and gen change 07/01/2021 ([facility]) *hx LV apical thrombus was on Eliquis - being held currently *CAD - hx JH to LAD (2007); occluded RCA at ostium; patent LAD stent (2011 *hx VT *HTN *HLD *PAD *Ongoing tobacco abuse PLAN; Labs and telemetry will be ordered. Patient sent from clinic to be admitted by [facility] physician group for IV antibiotics. Will request blood cultures, consult ID, further plans to follow. documented in this encounter Plan of Treatment Not on file documented as of this encounter Visit Diagnoses Not on filedocumented in this encounter Care Teams Tobacco Wetter Relationship Specialty Start Date End Date Linh Doty, [address] [facility] [address] [place] [address] PCP - General Family Medicine 11/04/22 Lizzie Alves PA-C [address] [facility] [address] [place] [address] Hospitalist Cardiology 05/27/23 Kaushik Mariscal MD [address] [facility] [address] [place] [address] Senior Field Service Engineer Electrophysiology 11/18/23 documented as of this encounter
--- OUTSIDE RECORDS SUMMARY | 2024-09-16 08:56 | XMS_ITS | Encounter Summary ---
Author Organization [employer] ([place], [place], [place], [place]) Address [address] [place] [address] Care Team Providers Care Street Light Repairer Helper Name Role Phone Lalitha Linhkarthikeyan Mazariegos DO Primary Care Provider [phone] Lizzie Alves PA-C Unavailable [phone] Dion Mariscal MD Unavailable Encounter Details Date Type Department Care Team (Late st Contact Info) Description 08/27/2021 Transcribed Document [facility] [place] Family Medicine [address] [place] [address] ProviderChad MD [address] [place] [address] Social History Tobacco Use Types [...] Historical ProviderMD - 08/27/2021 12:41 PM CDT [facility] [place] [address] LENA MENDOZA :1965 Visit Time:08/26/2021 Your Visit Summary Your Care Team Admitting Physician - DION MARISCAL MD-CAR Attending Physician - DINO MARISCAL MD-CAR Primary Care Physician - LINH [...] Bring discharge instructions with you Where: [address] [facility] [address] [place] [address]- Follow Up with LINH WILLIAM DO-FAM When 09/04/2021 10:00 AM EDT Comments PCP appt made, Bring discharge instructions with you Where: [address] [place] [address]- Follow Up with DION MARISCAL When 09/03/2021 02:00 PM EDT Comments wound device check in 1 week scheduled for 09/03/2021 at [address] Mariscal Where: [address] [facility] [address] [place] [address]- Business (1) Medications What How Much When Instructions Next Dose cephalexin (Keflex 500 mg oral capsule) 1 Capsule(s) Oral Three Times A Day Duration: 7 Day(s) Pickup at [facility] this afternoon and evening nicotine (nicotine 14 mg/ 24 hr transdermal film, extended release) 1 Patch(es) TransDermal Every Day Duration: 14 Day(s) Pickup at [facility] tomorrow acetaminophen-hydrocodone (acetaminophen-HYDROcodone 325 mg-5 mg oral tablet) 1 Tablet(s) Oral Every 8 Hours as needed for for pain as needed carvedilol (carvedilol 12.5 mg oral tablet) 1 Tablet(s) Oral Two Times A Day this evening ergocalciferol (Vitamin D2 1.25 mg (50,000 intl units) oral capsule) 1 Capsule(s) Oral Weekly check your schedule fluticasone nasal (fluticasone 50 mcg/ inh nasal spray) 2 [place](s) Nasal Every Day as needed for Nasal [...] Oral At Bedtime at bedtime Pharmacy Information [facility] [place]: [address] [facility] [address] [place], [place] [id number] [phone] Take your medications faithfully. Do NOT skip [...] these instructions at home: Medicines ??? Take jlep-see-xoizwuz and prescription medicines only as told by [...] or bruising over the incision. ??? Take byas-gba-rlfhubc and prescription medicines only as told by [...] provider. Document Revised: 12/28/2019 Document Reviewed: 12/28/2019 [employer] Patient Education ?? 2021 [employer]. General Anesthesia, Adult, Care After This [...] activities are safe for you. ??? Take nfss-tey-giqwtno and prescription medicines only as told by [...] provider. Document Revised: 10/11/2020 Document Reviewed: 05/10/2020 [employer] Patient Education ?? 2020 [employer]. Heart-Healthy Eating Plan Heart-healthy meal planning includes: [...] Fats and oils Meat fat, or shortening. Joffre butter, hydrogenated oils, palm oil, coconut oil, [...] provider. Document Revised: 04/01/2018 Document Reviewed: 03/05/2018 [employer] Patient Education ?? 2020 [employer]. nicotine (transdermal) (AMADA [place] teen) [employer] casanova [...] may report side effects to FDA at 5-997-RHC-4368. What other drugs will affect nicotine? Other drugs may affect nicotine transdermal, including prescription and wynm-mdx-hizyotn medicines, vitamins, and herbal products. Tell your [...] to ensure that the information provided by [employer]. ('[place]um') is accurate, up-to-date, and complete, but no guarantee is made to that effect. Drug information contained herein may be time sensitive. [employer] information has been compiled for use by healthcare practitioners and consumers in the [place] and therefore [employer] does not warrant that uses outside of the [place] are appropriate, unless specifically indicated otherwise. [employer] drug information does not endorse drugs, diagnose patients or recommend therapy. [employer] drug information is an informational resource designed [...] effective or appropriate for any given patient. [employer] does not assume any responsibility for any aspect of healthcare administered with the aid of information [employer] provides. The information contained herein is not intended to cover all possible uses, directions, precautions, warnings, drug interactions, allergic reactions, or adverse effects. If you have questions about the drugs you are taking, check with your doctor, nurse or pharmacist. Copyright 6426-9656 [employer]. Version: 3.01. Revision Date: 09/16/2018. cephalexin (sef [...] may report side effects to FDA at 8-884-SPY-1713. What other drugs will affect cephalexin? Tell your doctor about all your other medicines, especially: ?? metformin; or ?? probenecid. This list is not complete. Other drugs may affect cephalexin, including prescription and hntj-kfb-mdvmfsw medicines, vitamins, and herbal products. Not all [...] to ensure that the information provided by [employer] ('[place]') is accurate, up-to-date, and complete, but no guarantee is made to that effect. Drug information contained herein may be time sensitive. [employer] information has been compiled for use by healthcare practitioners and consumers in the [place] and therefore [employer] does not warrant that uses outside of the [place] are appropriate, unless specifically indicated otherwise. [employer] drug information does not endorse drugs, diagnose patients or recommend therapy. [employer] drug information is an informational resource designed [...] effective or appropriate for any given patient. [employer] does not assume any responsibility for any aspect of healthcare administered with the aid of information [employer] provides. The information contained herein is not intended to cover all possible uses, directions, precautions, warnings, drug interactions, allergic reactions, or adverse effects. If you have questions about the drugs you are taking, check with your doctor, nurse or pharmacist. Copyright 2261-4627 [employer]. Version: 10.03. Revision Date: 02/13/2020. Emergency Awareness [...] Assistance with quitting is available by contacting 9-171-OSJM-NOW. This is a free resource providing counseling, [...] range between ( 0.0 and 7.0 ) Meeker #: 0.62 K/uL -- Normal range between ( 0.16 and 1.00 ) Eos #: 0.21 x10(3)/uL -- Normal range between ( 0.00 and 0.80 ) [place]eker %: 6.9 % -- Normal range between [...] was given the opportunity to ask questions. Patient/Charge Account Authorizer Name: Patient/Charge Account Authorizer Signature: Relationship to Patient: Clinician/Hospital Charge Account Authorizer Signature: Date: Electronically signed by Reyna Da Silva Conversion Director Of Perioperative Services Cerner at 05/27/2022 9:01 PM CDT documented in this encounter Plan of Treatment Not on file documented as of this encounter Visit Diagnoses Not on filedocumented in this encounter Care Teams Street Light Repairer Helper Relationship Specialty Start Date End Date Linh William, DO [address] [place] [address] PCP - General Family Medicine 11/04/22 Lizzie Alves PA-C [address] [place] [address], [facility] [address] [place] [address] Hospitalist Cardiology 05/27/23 Dion Mariscal MD [address] [facility] [address] [place] [address] Internet Marketing Analyst Electrophysiology 11/18/23 documented as of this encounter
--- OUTSIDE RECORDS SUMMARY | 2024-09-16 08:56 | XMS_ITS | Encounter Summary ---
Author Organization [employer] ([place], [place], [place], [place]) Address [address] [place] [address] Care Team Providers Care Cycle Director Name Role Phone Lalitha Linh Delilah DAVIS Primary Care Provider Lizzie Alves PA-C Unavailable [phone] Kaushik Mariscal MD Unavailable Encounter Details Date Type Department Care Team (Late st Contact Info) Description 08/27/2021 Transcribed Document [facility] [address] [place] [address] ProviderChad MD [address] [place] [address] Social History Tobacco Use Types Packs/Day Years Used Date Smoking Tobacco: Never Assessed Family and Community Support Answer Geremias e Recorded Help with Day to Day Activities Not on file 02/27/2023 Feeling Lonely or Isolated Not on file 02/27 Educational Attainment Answer Date Mendez rded Speak language other than Belizean at home Not on file 02/27/2023 Want [...] on filedocumented in this encounter Care Teams Cycle Director Relationship Specialty Start Date End Date Linh Doty, [address] [facility] [address] [place] [address] PCP - General Family Medicine 11/04/22 Lizzie Alves PA-C [address] [facility], [facility] [address] [place] [address] Hospitalist Cardiology 05/27/23 Kaushik Mariscal MD [address] [facility] [address] [place] [address] Fur Plucker Electrophysiology 11/18/23 documented as of this encounter
--- OUTSIDE RECORDS SUMMARY | 2024-09-16 08:57 | XMS_ITS | Encounter Summary ---
Author Organization [employer] ([place], [place], [place], [place]) Address [address] [place] [address] Care Team Providers Care Cognos Developer Name Role Phone Lalitha Linh Delilah DAVIS Primary Care Provider [phone] Lizzie Alves PA-C Unavailable [phone] Kaushik Mariscal MD Unavailable Encounter Details Date Type Department Care Team (Late st Contact Info) Description 08/09/2021 Transcribed Document [facility] [place] [address] [place] [address] ProviderChad MD [address] [place] [address] Social History Tobacco Use Types Packs/Day Years Used Date Smoking Tobacco: Never Assessed Family and Community Support Answer Geremias e Recorded Help with Day to Day Activities Not on file 02/27/2023 Feeling Lonely or Isolated Not on file 02/27 Educational Attainment Answer Date Mendez rded Speak language other than Iranian at home Not on file 02/27/2023 Want [...] On: 08/09/2021 14:46 EDT by ERNIE CAMARA, Redrying Machine Operator Primary Insurance Authorization Authorization and Policy Numbers : Insurance 1 Health Plan: [employer] MANAGED MEDICARE Policy Number: [id number] Authorization Number: Insurance Primary Name : [employer] MANAGED MEDICARE Policy Number: [id number] Authorization Status-Primary : Admit approved Auth/Referral Contact Name-Primary : [place] Reference Number-Primary : [id number] Authorization Number-Primary : [id number] Number of Days Authorized-Primary : 5 Day(s) Authorized Service Begin Date-Primary : 07/16/2021 EDT Authorized Service End Date-Primary : 07/21/2021 EDT Authorization Comments-Primary : Still pending per website Historical Authorization Comments-Primary : Comment 1: Remains pending per portal (WADLO PIÑA RN 08/06/2021 13:43) Comment 2: Per website - Under review. (Bonita Katz, Qa Software Tester 07/31/2021 08:56) Comment 3: Discharge summary as well as continued stay clinical 07/23 - discharge faxed. (Bonita Katz, Qa Software Tester 07/29/2021 15:50) Comment 4: 07/20-07/22 CLINICALS FAXED VIA [employer] (Yessi Alaniz RN 07/22/2021 16:49) Comment 5: PER PORTAL IP APPROVED FOR 07/16 UP TO BUT NOT INCLUDING 07/22 (Khushi Jones Rn-Utilization Review 07/19/2021 13:56) Comment 6: UNDER REVIEW PER PORTAL (Khushi Jones Rn-Utilization Review 07/19/2021 09:22) Comment 7: CLINICAL FAXED VIA [employer] (Kuhshi Jones Rn-Utilization Review 07/17/2021 15:22) Comment 8: REF# PER [employer]. CLINICAL FAXED VIA [employer] (Khushi Jones Rn-Utilization Review 07/17/2021 15:17) ERNIE CAMARA, Redrying Machine Operator - 08/09/2021 14:46 EDT Electronically signed by Rekha [facility] Conversion Sticker On Cerner at 05/27/2022 9:18 PM CDT documented in this encounter Plan of Treatment Not on file documented as of this encounter Visit Diagnoses Not on filedocumented in this encounter Care Teams Cognos Developer Relationship Specialty Start Date End Date Linh Doty, [address] [facility] [address] [place] [address] PCP - General Family Medicine 11/04/22 Lizzie Alves PA-C [address] [place] [address], [facility] [address] [place] [address] Hospitalist Cardiology 05/27/23 Kaushik Mariscal MD [address] [facility] [address] [place] [address] Mechanical Supervisor Electrophysiology 11/18/23 documented as of this encounter
--- OUTSIDE RECORDS SUMMARY | 2024-09-16 08:57 | XMS_ITS | Encounter Summary ---
Author Organization [employer] ([place], [place], [place], [place]) Address [address] [place] [address] Care Team Providers Care Diet Clerk Name Role Phone Lalitha Linhkarthikeyan Mazariegos DO Primary Care Provider [phone] Lizzie Alves PA-C Unavailable [phone] Dion Mariscal MD Unavailable Encounter Details Date Type Department Care Team (Late st Contact Info) Description 07/24/2021 Transcribed Document [facility] [place] Family Medicine [address] [place] [address] ProviderChad MD [address] [place] [address] Social History Tobacco Use Types Packs/Day Years Used Date Smoking Tobacco: Never Assessed Family and Community Support Answer Geremias e Recorded Help with Day to Day Activities Not on file 02/27/2023 Feeling Lonely or Isolated Not on file 02/27 Educational Attainment Answer Date Mendez rded Speak language other than Citizen Of [place] at home Not on file 02/27/2023 Want [...] 3 mL, Nebulized Inhalation , Q8H ergocalciferol, 26740 Units= 1 Cap, Oral, Weekly Florastor, 250 [...] Push, Q4H, PRN Electronically signed by Rekha, [facility] Conversion Machine Records Units Supervisor Cerner at 05/27/2022 9:13 PM CDT documented in this encounter Plan of Treatment Not on file documented as of this encounter Visit Diagnoses Not on filedocumented in this encounter Care Teams Diet Clerk Relationship Specialty Start Date End Date Linh Doty, [address] [facility] [address] [place] [address] PCP - General Family Medicine 11/04/22 Lizzie Alves PA-C [address] [place] [address], [facility] [address] [place] [address] Hospitalist Cardiology 05/27/23 Dion Mariscal MD [address] [facility] [address] [place] [address] Film Processing Utility Worker Electrophysiology 11/18/23 documented as of this encounter
--- OUTSIDE RECORDS SUMMARY | 2024-09-16 08:57 | XMS_ITS | Encounter Summary ---
Author Organization [employer] ([place], [place], [place], [place]) Address [address] [place] [address] Care Team Providers Care Neonatal Icu Coordinator Name Role Phone Lalitha Linhkarthikeyan Mazariegos DO Primary Care Provider [phone] Lizzie Alves PA-C Unavailable [phone] Kaushik Mariscal MD Unavailable Encounter Details Date Type Department Care Team (Late st Contact Info) Description 07/02/2021 Transcribed Document [facility] [place] Family Medicine [address] [place] [address] ProviderChad MD [address] [place] [address] Social History Tobacco Use Types Packs/Day Years Used Date Smoking Tobacco: Never Assessed Family and Community Support Answer Geremias e Recorded Help with Day to Day Activities Not on file 02/27/2023 Feeling Lonely or Isolated Not on file 02/27 Educational Attainment Answer Date Mendez rded Speak language other than American at home Not on file 02/27/2023 Want [...] On: 07/02/2021 12:34 EDT by ERNIE PAYAN RN-Turfgrass Management Professor Initial Assessment I Previously Documented Living Environment [...] Listed? : Yes Medical Durable Power of Device Engineer Name : no Legal Guardian : No Is Guardianship Needed : No ERNIE PAYAN RN-[employer]fgrass Management Professor - 07/02/2021 12:34 EDT Initial Assessment II Sensory and Motor Deficits : None Current Home Treatments and Equipment : Bedside commode, Shower chair Does the Patient have a Floor to SNF Benefit? : Yes ERNIE PAYAN RN-Turfgrass Management Professor - 07/02/2021 12:34 EDT Discharge Needs I Anticipated Discharge Date : 07/02/2021 EDT Anticipated Discharge To, CM : Home with family care Current Home Treatment/Equipment : Current Home Treatment/Equipment No qualifying data available. Post Acute/Home Treatments : Bedside commode, Oxygen therapy, Shower chair Documentation Status Complete : Yes ERNIE PAYAN RN-Turfgrass Management Professor - 07/02/2021 12:34 EDT Discharge Needs II Professional Skilled Services : Professional Skilled Services No qualifying data available. Needs Assistance with Transportation : No Patient Discharge Goal : Home ERNIE PAYAN RN-Turfgrass Management Professor - 07/02/2021 12:34 EDT Narrative Note Narrative Note : HD# 1. pt in observation status. 07-01: ppm/icd generator change. hx: cad, icm. chf. htn. pad. 02 2l nc. ancef iv. plavix. spoke with Ms. Chandler & her SO, Alexx. they reside in [facility] [place] [facility]. she is adl independent. has mentioned [...] still adamantly declines. spoke with Isis Katz, ventilated rib fitter. advised of all above. she spoke with pt this am regarding home oxygen & pt declined to her as well. Isis to alert Dr Mariscal of all. will dc home with 02 arranged. ERNIE PAYAN, RN-Turfgrass Management Professor - 07/02/2021 12:34 EDT Electronically signed by [facility] Conversion Model Builder Cerner at 05/27/2022 9:02 PM CDT documented in this encounter Plan of Treatment Not on file documented as of this encounter Visit Diagnoses Not on filedocumented in this encounter Care Teams Neonatal Icu Coordinator Relationship Specialty Start Date End Date Linh Doty, DO [address] [facility] [address] [place] [address] PCP - General Family Medicine 11/04/22 Lizzie Alves PA-C [address] [facility] [address] [place] [address] Hospitalist Cardiology 05/27/23 Kaushik Mariscal MD [address] [facility] [address] [place] [address] Vp Securities Electrophysiology 11/18/23 documented as of this encounter
--- OUTSIDE RECORDS SUMMARY | 2024-09-16 08:57 | XMS_ITS | Encounter Summary ---
Author Organization [employer] ([place], [place], [place], [place]) Address [address] [place] [address] Care Team Providers Care Rock Mason Apprentice Name Role Phone Lalitha Linh Delilah DAVIS Primary Care Provider Lizzie Alves PA-C Unavailable [phone] Kaushik Mariscal MD Unavailable Encounter Details Date Type Department Care Team (Late st Contact Info) Description 07/24/2021 Transcribed Document [facility] [place] Family Medicine [address] [place] [address] ProviderChad MD [address] [place] [address] Social History Tobacco Use Types Packs/Day Years Used Date Smoking Tobacco: Never Assessed Family and Community Support Answer Geremias e Recorded Help with Day to Day Activities Not on file 02/27/2023 Feeling Lonely or Isolated Not on file 02/27 Educational Attainment Answer Date Mendez rded Speak language other than Israeli at home Not on file 02/27/2023 Want [...] Yes All Active Orders Reviewed : Yes Colni Kaur Non Emp RN - 07/24/2021 20:08 EDT Electronically signed by Rekha [facility] Conversion Calibrator Barometers Cerner at 05/27/2022 9:17 PM CDT documented in this encounter Plan of Treatment Not on file documented as of this encounter Visit Diagnoses Not on filedocumented in this encounter Care Teams Rock Mason Apprentice Relationship Specialty Start Date End Date Linh Doty, [address] [facility] [address] [place] [address] PCP - General Family Medicine 11/04/22 Lizzie Alves PA-C [address] [place] [address], [facility] [address] [place] [address] Hospitalist Cardiology 05/27/23 Kaushik Mariscal MD [address] [facility] [address] [place] [address] Welt Slasher Electrophysiology 11/18/23 documented as of this encounter
--- OUTSIDE RECORDS SUMMARY | 2024-09-16 08:57 | XMS_ITS | Encounter Summary ---
Author Organization [employer] ([place], [place], [place], [place]) Address [address] [place] [address] Care Team Providers Care Boiler Tube Blower Name Role Phone Lalitha Linhkarthikeyan Mazariegos DO Primary Care Provider [phone] Lizzie Alves PA-C Unavailable [phone] Kaushik Mariscal MD Unavailable Encounter Details Date Type Department Care Team (Late st Contact Info) Description 07/17/2021 Transcribed Document [facility] [place] Family Medicine [address] [place] [address] ProviderChad MD [address] [place] [address] Social History Tobacco Use Types [...] Policy Numbers : Insurance 1 Health Plan: [employer] MANAGED MEDICARE Policy Number: [id number] Authorization Number: Insurance Primary Name : [facility] MANAGED MEDICARE Policy Number: [id number] Authorization Status-Primary : Awaiting callback Reference Number-Primary : [id number] Authorized Service Begin Date-Primary : 07/16/2021 EDT Authorization Comments-Primary : CLINICAL FAXED VIA [employer] Historical Authorization Comments-Primary : Comment 1: REF# [id number] DUNAWAY. CLINICAL FAXED VIA [employer] (Khushi Jones Rn-Utilization Review 07/17/2021 15:17) Khushi Jones Rn-Utilization Review - 07/17/2021 15:22 EDT Electronically signed by [facility] Conversion Certified Personal Trainer Cerner at 05/27/2022 8:59 PM CDT documented in this encounter Plan of Treatment Not on file documented as of this encounter Visit Diagnoses Not on filedocumented in this encounter Care Teams Boiler Tube Blower Relationship Specialty Start Date End Date Linh Doty, DO [address] [facility] [address] [place] [address] PCP - General Family Medicine 11/04/22 Lizzie Alves PA-C 14[address] [facility], [facility] [address] [place] [address] Hospitalist Cardiology 05/27/23 Kaushik Mariscal MD [address] [facility] [address] [place] [address] Ferryboat Ticket Taker Electrophysiology 11/18/23 documented as of this encounter
--- OUTSIDE RECORDS SUMMARY | 2024-09-16 08:57 | XMS_ITS | Encounter Summary ---
Author Organization [employer] ([place], [place], [place], [place]) Address [address] [place] [address] Care Team Providers Care Fuel Yard Operator Name Role Phone Lalitha Linhkarthikeyan Mazariegos DO Primary Care Provider [phone] Lizzie Alves PA-C Unavailable [phone] Kaushik Mariscal MD Unavailable Encounter Details Date Type Department Care Team (Late st Contact Info) Description 07/17/2021 Transcribed Document [facility] [place] Family Medicine [address] [place] [address] ProviderChad MD [address] [place] [address] Social History Tobacco Use Types Packs/Day [...] Listed? : Yes Medical Durable Power of Special Warfare Boat Operator Name : no Legal Guardian : No [...] home with her life partner, Alexx Lewis [phone]. Pt PLOF independent. Pt has a cane, walker, bedside commode, and shower chair. Pt has no home O2. Pt has no history of home health or SNF. Pt's significant other provides transportation and can transport at [place]. Pt has no concerns related to safety getting in and out of the vehicle. DCP: Home w/ family care AMAURY HURT, HVAC REFRIGERATION TECHNICIAN NON-EXEMPT - 07/17/2021 12:36 EDT Electronically signed by Rekha [facility] Conversion Truck Technician Cerner at 05/27/2022 9:03 PM CDT documented in this encounter Plan of Treatment Not on file documented as of this encounter Visit Diagnoses Not on filedocumented in this encounter Care Teams Fuel Yard Operator Relationship Specialty Start Date End Date Linh Doty, 8 [facility] [address] [place] [address] PCP - General Family Medicine 11/04/22 Lizzie Alves PA-C [address] [place] [address], [facility] [address] [place] [address] Hospitalist Cardiology 05/27/23 Kaushik Mariscal MD [address] [facility] [address] [place] [address] Heavy Duty Press Operator Electrophysiology 11/18/23 documented as of this encounter
--- OUTSIDE RECORDS SUMMARY | 2024-09-16 08:57 | XMS_ITS | Encounter Summary ---
Author Organization [employer] ([place], [place], [place], [place]) Address [address] [place] [address] Care Team Providers Care Manager Imaging Name Role Phone Lalitha Linhkarthikeyan Mazariegos DO Primary Care Provider [phone] Lizzie Alves PA-C Unavailable [phone] Kaushik Mariscal MD Unavailable Encounter Details Date Type Department Care Team (Late st Contact Info) Description 07/17/2021 Transcribed Document [facility] [place] Family Medicine [address] [place] [address] ProviderChad MD [address] [place] [address] Social History Tobacco Use Types Packs/Day Years Used Date Smoking Tobacco: Never Assessed Family and Community Support Answer Geremias e Recorded Help with Day to Day Activities Not on file 02/27/2023 Feeling Lonely or Isolated Not on file 02/27 Educational Attainment Answer Date Mendez rded Speak language other than Martiniquais at home Not on file 02/27/2023 Want [...] On: 07/17/2021 15:54 EDT by Samuel Anders Alod[employer] Machine Helper Cert Lead Meds to Bed Enrollment Patient Enrollment Decision: : Yes/enroll in meds to bed program Samuel Anders Alodize Machine Helper Cert Lead - 07/18/2021 10:18 EDT documented in this encounter Plan of Treatment Not on file documented as of this encounter Visit Diagnoses Not on filedocumented in this encounter Care Teams Manager Imaging Relationship Specialty Start Date End Date Linh Doty, 8 [facility] [address] [place] [address] PCP - General Family Medicine 11/04/22 Lizzie Alves PA-C [address] [place] [address], [facility] [address] [place] [address] Hospitalist Cardiology 05/27/23 Kaushik Mariscal MD [address] [facility] [address] [place] [address] Activated Sludge Operator Electrophysiology 11/18/23 documented as of this encounter
--- OUTSIDE RECORDS SUMMARY | 2024-09-16 08:57 | XMS_ITS | Encounter Summary ---
Author Organization [employer] ([place], [place], [place], [place]) Address [address] [place] [address] Care Team Providers Care Branch Manager Name Role Phone Lalitha Linh Delilah DAVIS Primary Care Provider [phone] Lizzie Alves PA-C Unavailable [phone] Kaushik Mariscal MD Unavailable Encounter Details Date Type Department Care Team (Late st Contact Info) Description 07/01/2021 Transcribed Document [facility] [place] [address] [place] [address] ProviderChad MD [address] [place] [address] Social History Tobacco Use Types Packs/Day [...] Obtained From : Patient Primary Language : Zimbabwean Preferred Communication Mode : Verbal Communication Barrier : None Electrical Tests Supervisor Needed : No Rere Ramos RN - [...] Scale Risk Level : 0-24 Low Risk [place] Fall Interventions : Adequate lighting, Assistive devices [...] Source : Stated Height Entry Format : [place] Height, Feet : 5 ft(Converted to: 152 cm, 60 Inch) Height, Inches : 7 Inch(Converted to: 0 ft 7 Inch, 17.78 cm) Clinical Height : 170.18 cm Weight Source : Standing scale Weight Entry Format : [place] Clinical Dosing Weight : 61.36 kg Weight, Pounds : 135 lb Body Surface Area (BSA) : 1.71 m2 Body Mass Index : 21.2 kg/m2 Brady Body Weight : 61 kg Rere Ramos [...] Rere Ramos RN - 07/01/2021 18:05 EDT [place] Suicide Severity Rating Scale (C-SSRS) CSSRS Past [...] - 07/01/2021 18:05 EDT Electronically signed by [facility], [facility] Conversion Miter Sawyer Cerner at 05/27/2022 9:19 PM CDT documented in this encounter Plan of Treatment Not on file documented as of this encounter Visit Diagnoses Not on filedocumented in this encounter Care Teams Branch Manager Relationship Specialty Start Date End Date Linh Doty, DO [address] [facility] [address] [place] [address] PCP - General Family Medicine 11/04/22 Lizzie Alves PA-C 1401 [facility], [facility] [address] [place] [address] Hospitalist Cardiology 05/27/23 Kaushik Mariscal MD [address] [facility] [address] [place] [address] Snout Puller Electrophysiology 11/18/23 documented as of this encounter
--- OUTSIDE RECORDS SUMMARY | 2024-09-16 08:57 | XMS_ITS | Encounter Summary ---
Author Organization [employer] ([place], [place], [place], [place]) Address [address] [place] [address] Care Team Providers Care Child Care Teacher Name Role Phone Lalitha Linhkarthikeyan Mazariegos DO Primary Care Provider [phone] Lizzie Alves PA-C Unavailable [phone] Kaushik Mariscal MD Unavailable Encounter Details Date Type Department Care Team (Late st Contact Info) Description 07/16/[address] [facility] [place] Family Medicine [address] [place] [address] ProviderChad MD [address] [place] [address] Social History Tobacco Use Types Packs/Day [...] 07/16/2021 12:00 EDT by Mary Ellen Nance, Manager Flight Student Nurse ED Quick Look Assessment Level of Consciousness : Alert Affect/Behavior : Appropriate, Calm, Cooperative Orientation : Oriented x 4 Skin Temperature : Warm Skin Description : Normal for ethnicity Mary Ellen Nance, Manager Flight Student Nurse - 07/16/2021 12:49 EDT (Not Validated) ED General-Functional Assess Information Obtained From : Patient, Spouse Preferred Communication Mode : Verbal Communication Barrier : None Primary Language : Samoan Any Spiritual/Cultural Needs or Requests : No Currently in Unsafe Situation : No Mary Ellen Nance Manager Flight Student Nurse - 07/16/2021 12:49 EDT (Not Validated) Social Habits Smoking Status : Never (less than 100 in lifetime; none in last 30 days) Smokeless Tobacco Status : Never Desires Tobacco Cessation Calc : 0 Mary Ellen Nance Manager Flight Student Nurse - 07/16/2021 12:49 EDT [Not [...] denies anty other symptoms. [Mary Ellen Nance, Manager Flight Student Nurse - 07/16/2021 12:49 EDT] ) Mary Ellen Nance Manager Flight Student Nurse - 07/16/2021 12:49 EDT (Not Validated) Electronically signed by Rekha [facility] Conversion Testing Analyst Cerner at 05/27/2022 9:13 PM CDT documented in this encounter Plan of Treatment Not on file documented as of this encounter Visit Diagnoses Not on filedocumented in this encounter Care Teams Child Care Teacher Relationship Specialty Start Date End Date Linh Doty, [address] [facility] [address] [place] [address] PCP - General Family Medicine 11/04/22 Lizzie Alves PA-C [address] [place] [address], [facility] [address] [place] [address] Hospitalist Cardiology 05/27/23 Kaushik Mariscal MD [address] [facility] [address] [place] [address] Elementary School Counselor Electrophysiology 11/18/23 documented as of this encounter
--- OUTSIDE RECORDS SUMMARY | 2024-09-16 08:57 | XMS_ITS | Encounter Summary ---
Author Organization [employer] ([place], [place], [place], [place]) Address [address] [place] [address] Care Team Providers Care Service Delivery Management Consultant Name Role Phone Lalitha Linh Delilah DAVIS Primary Care Provider Lizzie Alves PA-C Unavailable [phone] Kaushik Mariscal MD Unavailable Encounter Details Date Type Department Care Team (Late st Contact Info) Description 07/18/2021 Transcribed Document [facility] [place] [address] [place] [address] ProviderChad MD [address] [place] [address] Social History Tobacco Use [...] 1965 Associated Diagnoses: None Author: YO GASTELUM, [facility] 55 y/o F with draining [...] Thank you for this consult. Yo Gastelum [facility] beeper [phone] Electronically signed by [facility], [facility] Conversion Clinical Research Director Cerner at 05/27/2022 9:00 PM CDT documented in this encounter Plan of Treatment Not on file documented as of this encounter Visit Diagnoses Not on filedocumented in this encounter Care Teams Service Delivery Management Consultant Relationship Specialty Start Date End Date Linh Doty, DO [address] [place] [address] [place] [address] PCP - General Family Medicine 11/04/22 Lizzie Alves PA-C [address], [address] [place] [address] Hospitalist Cardiology 05/27/23 Kaushik Mariscal MD [address] [place] [address] Lmft Electrophysiology 11/18/23 documented as of this encounter
--- OUTSIDE RECORDS SUMMARY | 2024-09-16 08:57 | XMS_ITS | Encounter Summary ---
Author Organization [employer] ([place], [place], [place], [place]) Address [address] [place] [address] Care Team Providers Care Assistant Teacher Name Role Phone Lalitha Linhkarthikeyan Mazariegos DO Primary Care Provider [phone] Lizzie Alves PA-C Unavailable [phone] Kaushik Mariscal MD Unavailable Encounter Details Date Type Department Care Team (Late st Contact Info) Description 07/17/2021 Transcribed Document [facility] [place] Family Medicine [address] [place] [address] ProviderChad MD [address] [place] [address] Social History Tobacco Use Types [...] Policy Numbers : Insurance 1 Health Plan: [employer] MANAGED MEDICARE Policy Number: [id number] Authorization Number: Insurance Primary Name : [facility] MANAGED MEDICARE Policy Number: [id number] Authorized Service Begin Date-Primary : 07/18/2021 EDT Historical Authorization Comments-Primary : No Authorization Comments Found Khushi Jones Rn-Utilization Review - 07/17/2021 15:13 EDT Electronically signed by Rekha [facility] Conversion All Terrain Vehicle Racer Cerner at 05/27/2022 9:20 PM CDT documented in this encounter Plan of Treatment Not on file documented as of this encounter Visit Diagnoses Not on filedocumented in this encounter Care Teams Assistant Teacher Relationship Specialty Start Date End Date Linh Doty, DO 8 [facility] [address] [place] [address] PCP - General Family Medicine 11/04/22 Lizzie Alves PA-C [address] [place] [address], [facility] [address] [place] [address] Hospitalist Cardiology 05/27/23 Kaushik Mariscal MD 14[address] [facility] [address] [place] [address] Cherry Picker Operator Electrophysiology 11/18/23 documented as of this encounter
--- OUTSIDE RECORDS SUMMARY | 2024-09-16 08:57 | XMS_ITS | Encounter Summary ---
Author Organization [employer] ([place], [place], [place], [place]) Address [address] [place] [address] Care Team Providers Care Vocational Rehabilitation Administrator Name Role Phone Lalitha Linh Delilah DAVIS Primary Care Provider [phone] Lizzie Alves PA-C Unavailable [phone] Kaushik Mariscal MD Unavailable Encounter Details Date Type Department Care Team (Late st Contact Info) Description 07/17/2021 Transcribed Document [facility] [place] Family Medicine [address] [place] [address] ProviderChad MD [address] [place] [address] Social History Tobacco Use Types [...] Joe Cuello RN - 07/17/2021 15:32 EDT Electronically signed by Rekha [facility] Conversion Lens Hardener Cerner at 05/27/2022 9:11 PM CDT documented in this encounter Plan of Treatment Not on file documented as of this encounter Visit Diagnoses Not on filedocumented in this encounter Care Teams Vocational Rehabilitation Administrator Relationship Specialty Start Date End Date Linh Doty, 8 [facility] [address] [place] [address] PCP - General Family Medicine 11/04/22 Lizzie Alves PA-C [address] [place] [address], [facility] [address] [place] [address] Hospitalist Cardiology 05/27/23 Kaushik Mariscal MD 1401 [facility] [address] [place] [address] General Education Professor Electrophysiology 11/18/23 documented as of this encounter
--- OUTSIDE RECORDS SUMMARY | 2024-09-16 08:57 | XMS_ITS | Encounter Summary ---
Author Organization [employer] ([place], [place], [place], [place]) Address [address] [place] [address] Care Team Providers Care Sales Enablement Lead Name Role Phone Lalitha Linhkarthikeyan Mazariegos DO Primary Care Provider [phone] Lizzie Alves PA-C Unavailable [phone] Kaushik Mariscal MD Unavailable Encounter Details Date Type Department Care Team (Late st Contact Info) Description 07/24/2021 Transcribed Document [facility] [place] Family Medicine [address] [place] [address] ProviderChad MD [address] [place] [address] Social History Tobacco Use Types Packs/Day Years Used Date Smoking Tobacco: Never Assessed Family and Community Support Answer Geremias e Recorded Help with Day to Day Activities Not on file 02/27/2023 Feeling Lonely or Isolated Not on file 02/27 Educational Attainment Answer Date Mendez rded Speak language other than Moroccan at home Not on file 02/27/2023 Want [...] On: 07/24/2021 11:33 EDT by Mayra Vann Shut Off Worker Rn Care Management Progress Note Discharge Arrangements [...] Attend Multidisciplinary Rounds? : Yes Mayra Vann Shut Off Worker Rn - 07/24/2021 11:33 EDT Narrative Progress Note Narrative Progress Note : hd 8 elos 5 low rar patient to have AICD removed today r/t infection dcp- home soon with [facility] iv abx and lisa hh Historical Progress Note : hd 7 elos 5 low rar Plan for AICD removal 07/24 dcp- home with iv abx and hh after PPm removal Mayra Vann Shut Off Worker Rn - 07/23/21 13:57:38 hd 6 elos 5 low rar patient has home abx arranged with [facility], planned for dc today however patient now to have AICD removed on 07/24 dcp- home ?iv abx after aicd removal Mayra Vann, Shut Off Worker Rn - 07/22/21 11:22:31 hd 3 elos 5 low rar patient is set up with chika [facility] to teach patient abx administration saturday 07/22. Per EP, plan to dc patient saturday 07/22. Lisa for HH. Mayra Vann, Shut Off Worker Rn - 07/19/21 13:36:36 hd 2 low rar patient has orders from ID r/t iv abx and picc care but patient has no orders for PICC placement at this time, CM has reached out to ID. [facility] patient will also need hh dcp- home with hh and iv abx Mayra Vann, Shut Off Worker Rn - 07/18/21 16:10:37 Mayra Vann Shut Off Worker Rn - 07/24/2021 11:33 EDT Electronically signed by [facility], [facility] Conversion Nursing Home Manager Cerner at 05/27/2022 9:11 PM CDT documented in this encounter Plan of Treatment Not on file documented as of this encounter Visit Diagnoses Not on filedocumented in this encounter Care Teams Sales Enablement Lead Relationship Specialty Start Date End Date Linh Doty, DO 8 [facility] [address] [place] [address] PCP - General Family Medicine 11/04/22 Lizzie Alves PA-C 14[address] [facility], [facility] [address] [place] [address] Hospitalist Cardiology 05/27/23 Kaushik Mariscal MD 14[address] [facility] [address] [place] [address] Educational Technician Electrophysiology 11/18/23 documented as of this encounter
--- OUTSIDE RECORDS SUMMARY | 2024-09-16 08:57 | XMS_ITS | Encounter Summary ---
Author Organization [employer] ([place], [place], [place], [place]) Address [address] [place] [address] Care Team Providers Care Joint Cutter Machine Name Role Phone Lalitha Linh Delilah DAVIS Primary Care Provider [phone] Lizzie Alves PA-C Unavailable [phone] Kaushik Mariscal MD Unavailable Encounter Details Date Type Department Care Team (Late st Contact Info) Description 08/13/2021 Transcribed Document [facility] [place] [address] [place] [address] ProviderChad MD [address] [place] [address] Social History Tobacco Use Types Packs/Day Years Used Date Smoking Tobacco: Never Assessed Family and Community Support Answer Geremias e Recorded Help with Day to Day Activities Not on file 02/27/2023 Feeling Lonely or Isolated Not on file 02/27 Educational Attainment Answer Date Mendez rded Speak language other than Tuvaluan at home Not on file 02/27/2023 Want [...] On: 08/13/2021 13:45 EDT by Bonita Katz, Dental Ceramist Assistant Primary Insurance Authorization Authorization and Policy Numbers : Insurance 1 Health Plan: [employer] MANAGED MEDICARE Policy Number: [id number] Authorization Number: Insurance Primary Name : [employer] MA[employer]GED MEDICARE Policy Number: [id number] Authorization Status-Primary : Approved Auth/Referral Contact Name-Primary : DC Reference Number-Primary : [id number] Authorization Number-Primary : [id number] Number of Days Authorized-Primary : 10 Day(s) Authorized Service Begin Date-Primary : 07/16/2021 EDT Authorized Service End Date-Primary : 07/26/2021 EDT Authorization Comments-Primary : Authorized per fax 08/13/21 @ 1140. Approved inpatient stay x11 days. Historical Authorization Comments-Primary : Comment 1: Still pending per website (ERNIE CAMARA Excel Specialist 08/09/2021 14:46) Comment 2: Remains pending per portal (WALDO PIÑA RN 08/06/2021 13:43) Comment 3: Per website - Under review. (Bonita Katz, Dental Ceramist Assistant 07/31/2021 08:56) Comment 4: Discharge summary as well as continued stay clinical 07/23 - discharge faxed. (Bonita Katz, Dental Ceramist Assistant 07/29/2021 15:50) Comment 5: 07/20-07/22 CLINICALS FAXED [...] Jones, Rn-Utilization Review 07/17/2021 15:17) Bonita Katz, Dental Ceramist Assistant - 08/13/2021 13:45 EDT Electronically signed by [facility] Conversion Baker Apprentice Cerner at 05/27/2022 9:16 PM CDT documented in this encounter Plan of Treatment Not on file documented as of this encounter Visit Diagnoses Not on filedocumented in this encounter Care Teams Joint Cutter Machine Relationship Specialty Start Date End Date Linh Doty, DO 8 [facility] [address] [place] [address] PCP - General Family Medicine 11/04/22 Lizzie Alves PA-C [address] [place] [address], [facility] [address] [place] [address] Hospitalist Cardiology 05/27/23 Kaushik Mariscal MD [address] [facility] [address] [place] [address] Automatic Centrifugal Station Operator Electrophysiology 11/18/23 documented as of this encounter
--- OUTSIDE RECORDS SUMMARY | 2024-09-16 08:57 | XMS_ITS | Encounter Summary ---
Author Organization [employer] ([place], [place], [place], [place]) Address [address] [place] [address] Care Team Providers Care Data Network Architect Name Role Phone Lalitha Linhkarthikeyan Mazariegos DO Primary Care Provider [phone] Lizzie Alves PA-C Unavailable [phone] Kaushik Mariscal MD Unavailable Encounter Details Date Type Department Care Team (Late st Contact Info) Description 07/17/2021 Transcribed Document [facility] [place] [address] [place] [address] ProviderChad MD [address] [place] [address] Social History Tobacco Use Types [...] Policy Numbers : Insurance 1 Health Plan: [employer] MANAGED MEDICARE Policy Number: [id number] Authorization Number: Insurance Primary Name : [employer] MA[employer]GED MEDICARE Policy Number: [id number] Authorization Status-Primary : Awaiting callback Authorized Service Begin Date-Primary : 07/18/2021 EDT Authorization Comments-Primary : REF# [id number] DUNAWAY. CLINICAL FAXED VIA [facility] Historical Authorization Comments-Primary : No Authorization Comments Found Khushi Jones Rn-Utilization Review - 07/17/2021 15:17 EDT Electronically signed by Rekha [facility] Conversion Loom Fixer Helper Cerner at 05/27/2022 9:07 PM CDT documented in this encounter Plan of Treatment Not on file documented as of this encounter Visit Diagnoses Not on filedocumented in this encounter Care Teams Data Network Architect Relationship Specialty Start Date End Date Linh Doty, DO 8 [facility] [address] [place] [address] PCP - General Family Medicine 11/04/22 Lizzie Alves PA-C [address] [place] [address], [facility] [address] [place] [address] Hospitalist Cardiology 05/27/23 Kaushik Mariscal MD [address] [facility] [address] [place] [address] County Assessor Electrophysiology 11/18/23 documented as of this encounter
--- OUTSIDE RECORDS SUMMARY | 2024-09-16 08:57 | XMS_ITS | Encounter Summary ---
Author Organization [employer] ([place], [place], [place], [place]) Address [address] [place] [address] Care Team Providers Care Outsewer Name Role Phone Lalitha Linhkarthikeyan Mazariegos DO Primary Care Provider [phone] Lizzie Alves PA-C Unavailable [phone] Kaushik Mariscal MD Unavailable Encounter Details Date Type Department Care Team (Late st Contact Info) Description 07/17/2021 Transcribed Document [facility] [place] Family Medicine [address] [place] [address] ProviderChad MD [address] [place] [address] Social History Tobacco Use Types Packs/Day [...] Policy Numbers : Insurance 1 Health Plan: [employer] MANAGED MEDICARE Policy Number: [id number] Authorization Number: Insurance Primary Name : [facility] Policy Number: [id number] Authorized Service Begin Date-Primary : 07/18/2021 EDT Historical Authorization Comments-Primary : No Authorization Comments Found EZEKIEL PHILLIPS RN - 07/17/2021 14:49 EDT Electronically signed by Rekha [facility] Conversion Projection Technician Cerner at 05/27/2022 9:10 PM CDT documented in this encounter Plan of Treatment Not on file documented as of this encounter Visit Diagnoses Not on filedocumented in this encounter Care Teams Outsewer Relationship Specialty Start Date End Date Linh Doty, DO 8 [facility] [address] [place] [address] PCP - General Family Medicine 11/04/22 Lizzie Alves PA-C 14[address] [facility] [address] [place] [address] Hospitalist Cardiology 05/27/23 Kaushik Mariscal MD [address] [facility] [address] [place] [address] Industrial Recruiter Electrophysiology 11/18/23 documented as of this encounter
--- OUTSIDE RECORDS SUMMARY | 2024-09-16 08:57 | XMS_ITS | Encounter Summary ---
Author Organization [employer] ([place], [place], [place], [place]) Address [address] [place] [address] Care Team Providers Care Fertilizer Mixer Name Role Phone Lalitha Linhkarthikeyan Mazariegos DO Primary Care Provider [phone] Lizzie Alves PA-C Unavailable [phone] Dion Mariscal MD Unavailable Encounter Details Date Type Department Care Team (Late st Contact Info) Description 07/18/2021 Transcribed Document [facility] [place] [address] [place] [address] ProviderChad MD [address] [place] [address] Social History Tobacco Use Types [...] 07/18/2021 10:10 AM CDT Patient: LENA MENDOZA [facility]: [id number] Age: 55 years Sex: Female : 1965 [...] mL: 1,000 mg, 250 mL/Hr, IV Piggyback, [id number] Prescriptions Prescribed nicotine 21 mg/24 hr transdermal [...] Refill(s) fluticasone 50 mcg/inh nasal spray: 2 [place], Nasal, Daily, PRN: Nasal Congestion, 16 Gram, [...] BID fluticasone 50 mcg/inh nasal spray 2 [place], PRN, Nasal, Daily folic acid 1 mg [...] 0.9% 250 mL 1,000 mg, IV Piggyback, [id number] Continuous: (0) PRN: (7) acetaminophen 325 mg [...] All Problems High cholesterol / SNOMED CT 42322166 / Confirmed PAD (peripheral artery disease) / SNOMED CT 3952538215 / Confirmed Chronic CHF / SNOMED CT 761490003 / Confirmed Current smoker / SNOMED CT 355750671 / Confirmed Arteriosclerosis / SNOMED CT 981975449 / Confirmed Intermittent claudication / SNOMED CT 879451718 / Confirmed Cardiomyopathy / SNOMED CT 193792720 / Confirmed History of [place] (myocardial infarction) / SNOMED CT 3098701601 / Confirmed Pacemaker / SNOMED CT 5188026777 / Confirmed Stented coronary artery / SNOMED CT 6159047108 / Confirmed Gout / SNOMED CT 353066061 / Confirmed At risk for sleep apnea / IMO 38584263 / Confirmed Resolved: History of ventricular tachycardia / SNOMED CT 2058146128 ICD placed in past for arrythmia. Canceled: HTN (hypertension) / SNOMED CT 0122632420 Canceled: COPD (chronic obstructive pulmonary disease) / SNOMED CT 09998003 Canceled: At risk for sleep apnea / IMO 67114195 Canceled: History of ischemic cardiomyopathy / SNOMED CT 925057815 Canceled: Abdominal aortic stenosis / SNOMED CT 761994849 Canceled: Shortness of breath / SNOMED CT 973873421, Active Problems (12) Arteriosclerosis At risk for [...] Normal range of motion. Integumentary: Warm, Dry, [place]. Neurologic: Alert, Oriented. Psychiatric: Cooperative, Appropriate mood [...] sent from clinic to be admitted by [facility] physician group for IV antibiotics. Will request blood cultures, consult ID, further plans to follow. documented in this encounter Plan of Treatment Not on file documented as of this encounter Visit Diagnoses Not on filedocumented in this encounter Care Teams Fertilizer Mixer Relationship Specialty Start Date End Date Linh Doty, 8 [facility] [address] [place] [address] PCP - General Family Medicine 11/04/22 Lizzie Alves PA-C [address] , [facility] [address] [place] [address] Hospitalist Cardiology 05/27/23 Dion Mariscal MD [address] [facility] [place] [address] Stull Hewer Electrophysiology 11/18/23 documented as of this encounter
--- OUTSIDE RECORDS SUMMARY | 2024-09-16 08:57 | XMS_ITS | Clinical Summary ---
Author Organization [facility] Address [address] [place] [id number] Care Team Providers Care Beer Maker Name Role Phone Provider, No Known Primary Care Provider Unavail able Social History Tobacco Use Types Packs/Day Years Used Date Smoking Tobacco: Never Assessed Abuse Screen Answer Date Recorded Unsafe at Home or Work/School Not on file Feels Threatened by Someone? Not on file 10/2022 Does Anyone Keep You from Co ntacting Others or Doint Things Outside the Home? Not on file 11/17/2022 Physical Sign of Abuse Present Not on file 1 Housing Stability Answer Date Recorded Current Living Arrangements Not on file 10/2022 Potentially Unsafe Housing Conditions Not on rivera e 11/17/2022 Family and Community Support Answer Geremias e Recorded Help with Day-to-Day Activities Not on file 11/17/2022 Lonely or Isolated Not on file 11/17/2022 Employment Answer Date Recorded Do you want help finding or keeping work or a aneta b? Not on file 11/17/2022 Disabilities Answer Date Recorded Concentrating, Remembering, or Making Decisions Difficulty Not on file 11/17/2022 Doing Errands Independently Difficulty Not on fi le 11/17/2022 Education Answer Date Recorded Help with school or training? Not on file Preferred Language Not on file 11/17/2022 Comments Unknown Sex and Gender Information Value Date Recorded Sex Assigned at Not on file Legal Sex Female 12:25 PM EDT Gender Identity Not on file Sexual Orientation Not on file Plan of Treatment Health Maintenance Due Date Last Done Comments ANNUAL PHYSICAL 1965 Annual Gynecologic Pelvic and Breast Exam 1965 HEPATITIS C SCREENING 1965 MAMMOGRAM 2004 COLON CANCER SCREENING 5 YEA R SIGMOIDOSCOPY [address] COLONOGRAPHY 2009 FECAL OCCULT BLOOD TEST 2009 FIT Testing (1 year) 2009 Pneumococcal Vaccine 50+ (1 of 1 - PCV) 2014 ZOSTER VACCINE (2 of 2) 04/23/2020 02/27/2020 COLOGUARD 01/01/2023 01/02/2020 COLORECTAL CANCER SCREENING 01/01/2023 COVID-19 Vaccine (3 - 2023- season) 2023, 04/28/2020 INFLUENZA VACCINE 11/09/2024 TDAP/TD VACCINES (2 - Td or Tdap) 01/29/2031 021 Insurance [facility] [place] [address] Care Teams Beer Maker Relationship Specialty Start Date End Date Provider, No Known [facility] [place] [address] PCP - General 07/31/21
--- OUTSIDE RECORDS SUMMARY | 2024-09-16 08:57 | XMS_ITS | Encounter Summary ---
Author Organization [employer] ([place], [place], [place], [place]) Address [address] [place] [address] Care Team Providers Care Cupola Operator Name Role Phone Lalitha Linhkarthikeyan Mazariegos DO Primary Care Provider [phone] Lizzie lAves PA-C Unavailable [phone] Kaushik Mariscal MD Unavailable Encounter Details Date Type Department Care Team (Late st Contact Info) Description 07/17/[address] [facility] [place] Family Medicine [address] [place] [address] ProviderChad MD 123 [place], [place] [...] with bloody drainage. [facility]. Post generator change, [...] m - 1,000 mg, IV Piggyback, Inj, [id number], infuse over 1 Hour(s) Cardiovascular carvedilol - [...] Normal strength, No tenderness. Integumentary: Warm, Dry, [place], No pallor, No rash, ICD site left [...] 07) INR 1.0 (MADELEINE 07) AST 23 (MADELEINE 08) 26 (MADELEINE 07) ALT 21 (MADELEINE 08) 25 (MADELEINE 07) ALK P 122 (JUL 08) H 142 (JUL 07) T Bili 0.7 (MADELEINE 08) 0.6 (MADELEINE 07) PTN 7.0 (MADELEINE 08) 7.6 (MADELEINE 07) ALB L 3.3 (MADELEINE 08) 3.5 (MADELEINE 07) , ACC: [id number] ORDER: Culture Blood DATE: 07/16/2021 12:39 SOURCE: Blood SITE: Reports Pre 07/17/2021 06:01 Culture less than 24 Hrs old == ACC: [id number] ORDER: Culture Blood DATE: 07/16/2021 12:39 SOURCE: Blood SITE: Reports Pre 07/17/2021 06:01 Culture less than 24 Hrs old == . Chest x-ray results Radiology Results (Last 48 hours) [id number] -- 07/16/2021 14:13 CR Chest 1 Vw [...] on filedocumented in this encounter Care Teams Cupola Operator Relationship Specialty Start Date End Date Linh Doty, DO 8 [facility] [address] [place] [address] PCP - General Family Medicine 11/04/22 Lizzie Alves PA-C [address] [facility], [address] [place] [address] Hospitalist Cardiology 05/27/23 Kaushik Mariscal MD [address] [facility] [address] [place] [address] Break Out Worker Electrophysiology 11/18/23 documented as of this encounter
--- OUTSIDE RECORDS SUMMARY | 2024-09-16 08:57 | XMS_ITS | Encounter Summary ---
Author Organization [employer] ([place], [place], [place], [place]) Address [address] [place] [address] Care Team Providers Care Security Guard Dispatcher Name Role Phone Lalitha Linhkarthikeyan Mazariegos DO Primary Care Provider [phone] Lizzie Alves PA-C Unavailable [phone] Kaushik Mariscal MD Unavailable Encounter Details Date Type Department Care Team (Late st Contact Info) Description 07/24/2021 Transcribed Document [facility] [place] Family Medicine [address] [place] [address] ProviderCahd MD [address] [place] [address] Social History Tobacco Use Types [...] Historical ProviderMD - 07/24/2021 12:00 PM CDT [facility] Main OR PACU Summary Primary Physician: ABBE HOLLEY MD-CAR Finalized Date/Time: 07/24/21 16:21:14 Pt. Name: LENA MENDOZA /Sex: 1965 Female Med Rec #: [id number] Physician: REYNALDO CURIEL MD-INT Financial #: [id number] Pt. Type: I Room/Bed: [facility]/ Admit/Disch: 07/16/21 14:13:00 - Institution: [facility] Main OR PACU I Case Times Entry 1 In PACU I 07/24/21 14:50:00 Ready for PACU 07/24/21 15:44:00 Discharge Discharge from PACU 07/24/21 15:45:00 I Last Modified By: Rebecca Sweet RN-PATIENT CARE BEDSIDE NON-EXEMPT 07/24/21 16:20:58 [facility] Main OR PACU Acuity Entry 1 Start Time 07/24/21 15:44:00 Stop Time 07/24/21 15:45:00 Acuity Level [facility] PACU Acuity I Last Modified By: Rebecca Sweet RN-PATIENT CARE BEDSIDE NON-EXEMPT 07/24/21 16:21:13 Finalized By: Rebecca Sweet RN-PATIENT CARE BEDSIDE NON-EXEMPT Document Signatures Signed By: Rebecca Sweet RN-PATIENT CARE BEDSIDE NON-EXEMPT 07/24/21 16:21 Electronically signed by Rekha [facility] Conversion Garageman Cerner at 05/27/2022 9:25 PM CDT documented in this encounter Plan of Treatment Not on file documented as of this encounter Visit Diagnoses Not on filedocumented in this encounter Care Teams Security Guard Dispatcher Relationship Specialty Start Date End Date Linh Doty, [address] [place] [address] PCP - General Family Medicine 11/04/22 Lizzie Alves PA-C [address] , [facility] [address] [place] [address] Hospitalist Cardiology 05/27/23 [place] [address] [place] [address] [place] [address] Program Supervisor Electrophysiology 11/18/23 documented as of this encounter
--- OUTSIDE RECORDS SUMMARY | 2024-09-16 08:57 | XMS_ITS | Encounter Summary ---
Author Organization [employer] ([place], [place], [place], [place]) Address [address] [place] [address] Care Team Providers Care Hydro Technician Name Role Phone Lalitha Linhkarthikeyan Mazariegos DO Primary Care Provider [phone] Lizzie Alves PA-C Unavailable [phone] Dion Mariscal MD Unavailable Encounter Details Date Type Department Care Team (Late st Contact Info) Description 07/17/2021 Transcribed Document [facility] [place] Family Medicine [address] [place] [address] ProviderChad MD [address] [place] [address] Social History Tobacco Use Types [...] 07/17/2021 8:50 AM CDT Patient: LENA MENDOZA [facility]: [id number] Age: 55 years Sex: Female : 1965 [...] mL: 1,000 mg, 250 mL/Hr, IV Piggyback, [id number] Documented Medications Documented Plavix 75 mg oral [...] 50 mcg inhalation powder: 1 Puff, Inhalation, [id number], rinse mouth and throat after use, 30 [...] 50 mcg inhalation powder 1 Puff, Inhalation, [id number] folic acid 1 mg oral tablet 1 [...] 0.9% 250 mL 1,000 mg, IV Piggyback, [id number] Continuous: (0) PRN: (7) acetaminophen 325 mg [...] All Problems High cholesterol / SNOMED CT 26414918 / Confirmed PAD (peripheral artery disease) / SNOMED CT 5255995509 / Confirmed Chronic CHF / SNOMED CT 316908026 / Confirmed Current smoker / SNOMED CT 082316720 / Confirmed Arteriosclerosis / SNOMED CT 258610793 / Confirmed Intermittent claudication / SNOMED CT 526603077 / Confirmed Cardiomyopathy / SNOMED CT 499130447 / Confirmed History of [place] (myocardial infarction) / SNOMED CT 1166935330 / Confirmed Pacemaker / SNOMED CT 8558103680 / Confirmed Stented coronary artery / SNOMED CT 1392686183 / Confirmed Gout / SNOMED CT 576618984 / Confirmed At risk for sleep apnea / IMO 43916363 / Confirmed Resolved: History of ventricular tachycardia / SNOMED CT 0382493540 ICD placed in past for arrythmia. Canceled: HTN (hypertension) / SNOMED CT 9575910768 Canceled: COPD (chronic obstructive pulmonary disease) / SNOMED CT 95257499 Canceled: At risk for sleep apnea / IMO 58177840 Canceled: History of ischemic cardiomyopathy / SNOMED CT 392502977 Canceled: Abdominal aortic stenosis / SNOMED CT 363446090 Canceled: Shortness of breath / SNOMED CT 342206295, Active Problems (12) Arteriosclerosis At risk for sleep apnea Cardiomyopathy Chronic CHF Current smoker Gout High cholesterol History of [place] (myocardial infarction) Intermittent claudication Pacemaker PAD (peripheral [...] Normal range of motion. Integumentary: Warm, Dry, [place]. Neurologic: Alert, Oriented. Psychiatric: Cooperative, Appropriate mood [...] sent from clinic to be admitted by [facility] physician group for IV antibiotics. Will request blood cultures, consult ID, further plans to follow. Electronically signed by Rekha [facility] Conversion Aircraft Structural Repair Mechanic Cerner at 05/27/2022 8:59 PM CDT documented in this encounter Plan of Treatment Not on file documented as of this encounter Visit Diagnoses Not on filedocumented in this encounter Care Teams Hydro Technician Relationship Specialty Start Date End Date Linh Doty, DO 8 [facility] [address] [place] [address] PCP - General Family Medicine 11/04/22 Lizzie Alves PA-C [address], [address] [place] [address] Hospitalist Cardiology 05/27/23 Dion Mariscal MD [address] [facility] [address] [place], [place] [address] Boiler Coverer Helper Electrophysiology 11/18/23 documented as of this encounter
--- OUTSIDE RECORDS SUMMARY | 2024-09-16 08:57 | XMS_ITS | Encounter Summary ---
Author Organization [employer] ([place], [place], [place], [place]) Address [address] [place] [address] Care Team Providers Care Career Development Specialist Name Role Phone Lalitha Linhkarthikeyan Mazariegos DO Primary Care Provider [phone] Lizzie Alves PA-C Unavailable [phone] Kaushik Mariscal MD Unavailable Encounter Details Date Type Department Care Team (Late st Contact Info) Description 07/24/2021 Transcribed Document [facility] [place] Family Medicine [address] [place] [address] ProviderChad MD [address] [place] [address] Social History Tobacco Use Types Packs/Day Years Used Date Smoking Tobacco: Never Assessed Family and Community Support Answer Geremias e Recorded Help with Day to Day Activities Not on file 02/27/2023 Feeling Lonely or Isolated Not on file 02/27 Educational Attainment Answer Date Mendez rded Speak language other than Singaporean at home Not on file 02/27/2023 Want [...] Historical ProviderMD - 07/24/2021 2:00 AM CDT Corporate Banking Officer Details Entered On: 07/24/2021 4:47 EDT Performed [...] - 07/24/2021 4:44 EDT Electronically signed by [facility] Conversion Shirt Line Operator Cerner at 05/27/2022 9:19 PM CDT documented in this encounter Plan of Treatment Not on file documented as of this encounter Visit Diagnoses Not on filedocumented in this encounter Care Teams Career Development Specialist Relationship Specialty Start Date End Date Linh Doty, 8 [facility] [address] [place] [address] PCP - General Family Medicine 11/04/22 Lizzie Alves PA-C [address] [facility] [address] [place] [address] Hospitalist Cardiology 05/27/23 Kaushik Mariscal MD [address] [facility] [address] [place] [address] Tubing Mill Operator Electrophysiology 11/18/23 documented as of this encounter
--- OUTSIDE RECORDS SUMMARY | 2024-09-16 08:57 | XMS_ITS | Encounter Summary ---
Author Organization [employer] ([place], [place], [place], [place]) Address [address] [place] [address] Care Team Providers Care Corporate Auditor Name Role Phone Lalitha Linh Delilah DAVIS Primary Care Provider [phone] Lizzei Alves PA-C Unavailable [phone] Kaushik Mariscal MD Unavailable Encounter Details Date Type Department Care Team (Late st Contact Info) Description 07/02/2021 Transcribed Document [facility] Family Medicine [address] [place] [address] ProviderChad MD [address] [place] [address] Social History Tobacco Use Types Packs/Day [...] on filedocumented in this encounter Care Teams Corporate Auditor Relationship Specialty Start Date End Date Linh Doty, DO 8 [facility] [address] [place] [address] PCP - General Family Medicine 11/04/22 Lizzie Alves PA-C [address] [facility], [facility] [address] [place] [address] Hospitalist Cardiology 05/27/23 Kaushik Mariscal MD 14[address] [facility] [address] [place] [address] Food Service Substitute Electrophysiology 11/18/23 documented as of this encounter
--- OUTSIDE RECORDS SUMMARY | 2024-09-16 08:57 | XMS_ITS | Encounter Summary ---
Author Organization [employer] ([place], [place], [place], [place]) Address [address] [place] [address] Care Team Providers Care Snowboard Designer Name Role Phone Lalitha Linhkarthikeyan Mazariegos DO Primary Care Provider [phone] Lizzie Alves PA-C Unavailable [phone] Kaushik Mariscal MD Unavailable Encounter Details Date Type Department Care Team (Late st Contact Info) Description 07/17/2021 Transcribed Document [facility] [address] [id number] Yanick Torres MD [address] [place] [address] [place] [address] Social History Tobacco Use Types Packs/Day Years Used Date Smoking Tobacco: Never Assessed Family and Community Support Answer Geremias e Recorded Help with Day to Day Activities Not on file 02/27/2023 Feeling Lonely or Isolated Not on file 02/27 Educational Attainment Answer Date Mendez rded Speak language other than Sinhala at home Not on file 02/27/2023 Want [...] mL: 1,000 mg, 250 mL/Hr, IV Piggyback, [id number] Documented Medications Documented Plavix 75 mg oral [...] 50 mcg inhalation powder: 1 Puff, Inhalation, [id number], rinse mouth and throat after use, 30 [...] 50 mcg inhalation powder 1 Puff, Inhalation, [id number] folic acid 1 mg oral tablet 1 [...] 0.9% 250 mL 1,000 mg, IV Piggyback, [id number] Continuous: (0) PRN: (7) acetaminophen 325 mg [...] At risk for sleep apnea / IMO [id number] / Confirmed High cholesterol / SNOMED CT 51543936 / Confirmed Canceled: At risk for sleep apnea / IMO [id number] Canceled: COPD (chronic obstructive pulmonary disease) / SNOMED CT 21254552 Canceled: HTN (hypertension) / SNOMED CT 9817211698, Active Problems (12) Arteriosclerosis At risk for sleep apnea Cardiomyopathy Chronic CHF Current smoker Gout High cholesterol History of PA (myocardial infarction) Intermittent claudication Pacemaker PAD (peripheral [...] gallop, S1+ S2 No S3 or S4 Letcher.. Gastrointestinal: Soft, Non-tender, Non-distended, Normal bowel sounds. [...] on filedocumented in this encounter Care Teams Snowboard Designer Relationship Specialty Start Date End Date Linh Doty, DO 8 [facility] [address] [place] [address] PCP - General Family Medicine 11/04/22 Lizzie Alves PA-C [address] [place] [address], [facility] [address] [place] [address] Hospitalist Cardiology 05/27/23 Kaushik Mariscal MD 1401 [facility] [address] [place] [address] Call Center Supervisor Electrophysiology 11/18/23 documented as of this encounter
--- OUTSIDE RECORDS SUMMARY | 2024-09-16 08:57 | XMS_ITS | Encounter Summary ---
Author Organization [employer] ([place], [place], [place], [place]) Address [address] [place] [address] Care Team Providers Care Behavioral Health Counselor Name Role Phone Lalitha Linh Delilah DAVIS Primary Care Provider [phone] Lizzie Alves PA-C Unavailable [phone] Kaushik Mariscal MD Unavailable Encounter Details Date Type Department Care Team (Late st Contact Info) Description 07/02/2021 Transcribed Document [facility] [place] [address] [place] [address] ProviderChad MD [address] [place] [address] Social History Tobacco Use Types Packs/Day [...] 07/02/2021 14:53 EDT Electronically signed by [employer] [facility] Conversion Soliciting Freight Agent Cerner at 05/27/2022 9:00 PM CDT documented in this encounter Plan of Treatment Not on file documented as of this encounter Visit Diagnoses Not on filedocumented in this encounter Care Teams Behavioral Health Counselor Relationship Specialty Start Date End Date Linh Doty, DO 8 [facility] [address] [place] [address] PCP - General Family Medicine 11/04/22 Lizzie Alves PA-C [address] [place] [address], [facility] [address] [place] [address] Hospitalist Cardiology 05/27/23 Kaushik Mariscal MD 1401 [facility] [address] [place] [address] Environmental Health And Safety Leader Electrophysiology 11/18/23 documented as of this encounter
--- OUTSIDE RECORDS SUMMARY | 2024-09-16 08:57 | XMS_ITS | Encounter Summary ---
Author Organization [employer] ([place], [place], [place], [place]) Address [address] [place] [address] Care Team Providers Care Towel Cabinet Repairer Name Role Phone Lalitha Linh Delilah DAVIS Primary Care Provider [phone] Lizzie Alves PA-C Unavailable [phone] Kaushik Mariscal MD Unavailable Encounter Details Date Type Department Care Team (Late st Contact Info) Description 07/17/2021 Transcribed Document [facility] [place] [address] [place] [address] ProviderChad MD [address] [place] [address] Social History Tobacco Use Types Packs/Day [...] 07/17/2021 20:01 EDT Electronically signed by Rekha [facility] Conversion Revenue Liaison Cerner at 05/27/2022 9:08 PM CDT documented in this encounter Plan of Treatment Not on file documented as of this encounter Visit Diagnoses Not on filedocumented in this encounter Care Teams Towel Cabinet Repairer Relationship Specialty Start Date End Date Linh Doty, DO 8 [facility] [address] [place] [address] PCP - General Family Medicine 11/04/22 Lizzie Alves PA-C [address] [place] [address], [facility] [address] [place] [address] Hospitalist Cardiology 05/27/23 Kaushik Mariscal MD 14[address] [facility] [address] [place] [address] Trade Union Secretary Electrophysiology 11/18/23 documented as of this encounter
--- OUTSIDE RECORDS SUMMARY | 2024-09-16 08:57 | XMS_ITS | Encounter Summary ---
Author Organization [employer] ([place], [place], [place], [place]) Address [address] [place] [address] Care Team Providers Care Manager Hair Name Role Phone Lalitha Linhkarthikeyan Mazariegos DO Primary Care Provider [phone] Lizzie Alves PA-C Unavailable [phone] Kaushik Mariscal MD Unavailable Encounter Details Date Type Department Care Team (Late st Contact Info) Description 08/27/2021 Transcribed Document [facility] Family Medicine [address] [place] [address] ProviderChad MD [address] [place] [address] Social History Tobacco Use Types Packs/Day Years Used Date Smoking Tobacco: Never Assessed Family and Community Support Answer Geremias e Recorded Help with Day to Day Activities Not on file 02/27/2023 Feeling Lonely or Isolated Not on file 02/27 Educational Attainment Answer Date Mendez rded Speak language other than Georgian at home Not on file 02/27/2023 Want [...] On: 08/27/2021 12:15 EDT by Mayra Vann Compound Finisher Rn Final Discharge Planning Discharge Arrangements : [...] : Yes Discharge To Care Management : Home/Residential/Half-Way or Self Care -01 Mayra Vann Compound Finisher Rn - 08/27/2021 12:15 EDT Final Narrative Note Final Narrative Note : observation patient with orders to dc home. SO at bedside to transport patient home. no identified cm needs Mayra Vann Compound Finisher Rn - 08/27/2021 12:15 EDT documented in this encounter Plan of Treatment Not on file documented as of this encounter Visit Diagnoses Not on filedocumented in this encounter Care Teams Manager Hair Relationship Specialty Start Date End Date Linh Doty DO 8 [facility] [address] [place] [address] PCP - General Family Medicine 11/04/22 Lizzie Alves PA-C [address] [place] , [facility] [address] [place] [address] Hospitalist Cardiology 05/27/23 Kaushik Mariscal MD [address] [place] [address] [place] [address] Mechanical Developer Prover Electrophysiology 11/18/23 documented as of this encounter
--- OUTSIDE RECORDS SUMMARY | 2024-09-16 08:58 | XMS_ITS | Encounter Summary ---
Author Organization [employer] ([place], [place], [place], [place]) Address [address] [place] [address] Care Team Providers Care Electric Repair Supervisor Name Role Phone Lalitha Linhkarthikeyan Mazariegos DO Primary Care Provider [phone] Lizzie Alvse PA-C Unavailable [phone] Kaushik Mariscal MD Unavailable Encounter Details Date Type Department Care Team (Late st Contact Info) Description 07/24/2021 Transcribed Document [facility] Family Medicine [address] [place] [address] ProviderChad MD [address] [place] [address] Social History Tobacco Use Types Packs/Day Years Used Date Smoking Tobacco: Never Assessed Family and Community Support Answer Geremias e Recorded Help with Day to Day Activities Not on file 02/27/2023 Feeling Lonely or Isolated Not on file 02/27 Educational Attainment Answer Date Mendez rded Speak language other than Kinyarwanda at home Not on file 02/27/2023 Want [...] with bloody drainage. Patient was admitted to [facility] on 07/16/2021. Post generator change, patient [...] (Rocephin) - 2 Gram, IV Piggyback, Inj, [id number], infuse over 30 Minute(s), Routine DAPTOmycin + Sodium Chloride 0.9% intravenous solution 50 mL - 400 mg, IV Piggyback, Inj, M49JDrb, infuse over 30 Minute(s), Routine Anticoagulant alteplase [...] No tenderness, No deformity. Integumentary: Warm, Dry, [place], No pallor, No rash, ICD site left [...] 09) L 3.3 (MADELEINE 08) , ACC: [id number] ORDER: Culture Blood DATE: 07/16/2021 12:39 SOURCE: Blood SITE: Reports Final 07/21/2021 16:01 No growth at 5 days. Pre 07/20/2021 16:01 No growth at 4 days. Pre 07/19/2021 16:01 No growth at 3 days. Pre 07/18/2021 16:01 No growth at 2 days. Pre 07/17/2021 16:02 No growth at 1 day. Pre 07/17/2021 06:01 Culture less than 24 Hrs old == ACC: [id number] ORDER: Culture Blood DATE: 07/16/2021 12:39 SOURCE: Blood SITE: Reports Final 07/21/2021 16:01 No growth at 5 days. Pre 07/20/2021 16:01 No growth at 4 days. Pre 07/19/2021 16:01 No growth at 3 days. Pre 07/18/2021 16:01 No growth at 2 days. Pre 07/17/2021 16:02 No growth at 1 day. Pre 07/17/2021 06:01 Culture less than 24 Hrs old == ACC: [id number] ORDER: Culture Wound and Stain DATE: 07/17/2021 [...] Weekly PICC dressing changes. Fax orders to [phone], call [phone] with final arrangements. Arrange for follow-up with me in 1 week post discharge. documented in this encounter Plan of Treatment Not on file documented as of this encounter Visit Diagnoses Not on filedocumented in this encounter Care Teams Electric Repair Supervisor Relationship Specialty Start Date End Date Linh oDty DO [address] [address] PCP - General Family Medicine 11/04/22 Lizzie Alves PA-C [address] [facility], [facility] [address] [place] [address] Hospitalist Cardiology 05/27/23 Kaushik Mariscal MD 1401 [facility] [address] [place] [address] Aquatic Ecologist Electrophysiology 11/18/23 documented as of this encounter
--- OUTSIDE RECORDS SUMMARY | 2024-09-16 08:58 | XMS_ITS | Encounter Summary ---
Author Organization [employer] ([place], [place], [place], [place]) Address [address] [place] [address] Care Team Providers Care Funds Development Director Name Role Phone Lalitha Linh Delilah DAVIS Primary Care Provider [phone] Lizzie Alves PA-C Unavailable [phone] Kaushik Mariscal MD Unavailable Encounter Details Date Type Department Care Team (Late st Contact Info) Description 07/23/2021 Transcribed Document [facility] [place] [place] [address] [place] [address] ProviderChad MD [address] [place] [address] Social History Tobacco Use Types Packs/Day [...] with bloody drainage. Patient was admitted to [facility] on 07/16/[facility]. Post generator change, [...] (Rocephin) - 2 Gram, IV Piggyback, Inj, [id number], infuse over 30 Minute(s), Routine DAPTOmycin + Sodium Chloride 0.9% intravenous solution 50 mL - 400 mg, IV Piggyback, Inj, [id number], infuse over 30 Minute(s), Routine Anticoagulant alteplase [...] No tenderness, No deformity. Integumentary: Warm, Dry, [place], No pallor, No rash, ICD site left [...] Weekly PICC dressing changes. Fax orders to [phone], call [phone] with final arrangements. Hold rosuvastatin while on daptomycin to decrease risk of rhabdomyolysis. Arrange for follow-up with me in 1 week post discharge. documented in this encounter Plan of Treatment Not on file documented as of this encounter Visit Diagnoses Not on filedocumented in this encounter Care Teams Funds Development Director Relationship Specialty Start Date End Date Linh Doty DO 8 [facility] [address] [place] [address] PCP - General Family Medicine 11/04/22 Lizzie Avles PA-C 1401 [facility], [facility] [address] [place] [address] Hospitalist Cardiology 05/27/23 Kaushik Mariscal MD 1401 [facility] [address] [place] [address] Wet End Helper Electrophysiology 11/18/23 documented as of this encounter
--- OUTSIDE RECORDS SUMMARY | 2024-09-16 08:58 | XMS_ITS | Encounter Summary ---
Author Organization [employer] ([place], [place], [place], [place]) Address [address] [place] [address] Care Team Providers Care Partner Cco Name Role Phone Lalitha Linhkarthikeyan Mazariegos DO Primary Care Provider [phone] Lizzie Alves PA-C Unavailable [phone] Kaushik Mariscal MD Unavailable Encounter Details Date Type Department Care Team (Late st Contact Info) Description 07/23/2021 Transcribed Document [facility] [place] [address] [place] [address] ProviderChad MD [address] [place] [address] Social History Tobacco Use Types Packs/Day Years Used Date Smoking Tobacco: Never Assessed Family and Community Support Answer Geremias e Recorded Help with Day to Day Activities Not on file 02/27/2023 Feeling Lonely or Isolated Not on file 02/27 Educational Attainment Answer Date Mendez rded Speak language other than Latvian at home Not on file 02/27/2023 Want [...] Ludivina Nicole Dietitian - 07/24/2021 12:28 EDT Electronically signed by Reyna Da Silva Conversion Assembler Aircraft Power Plant Cerner at 05/27/2022 9:28 PM CDT documented in this encounter Plan of Treatment Not on file documented as of this encounter Visit Diagnoses Not on filedocumented in this encounter Care Teams Partner Cco Relationship Specialty Start Date End Date Linh Doty, 8 [facility] [address] [place] [address] PCP - General Family Medicine 11/04/22 Lizzie Alves PA-C 1401 [facility], [facility] [address] [place] [address] Hospitalist Cardiology 05/27/23 Kaushik Mariscal MD 1401 [facility] [address] [place] [address] Design Technology Teacher Electrophysiology 11/18/23 documented as of this encounter
--- OUTSIDE RECORDS SUMMARY | 2024-09-16 08:58 | XMS_ITS | Encounter Summary ---
Author Organization [employer] ([place], [place], [place], [place]) Address [address] [place] [address] Care Team Providers Care Travel Cota Name Role Phone Lalitha Linhkarthikeyan Mazariegos DO Primary Care Provider [phone] Lizzie Alves PA-C Unavailable [phone] Kaushik Mariscal MD Unavailable Encounter Details Date Type Department Care Team (Late st Contact Info) Description 07/23/2021 Transcribed Document [facility] Family Medicine [address] [place] [address] ProviderChad MD [address] [place] [address] Social History Tobacco Use Types Packs/Day Years Used Date Smoking Tobacco: Never Assessed Family and Community Support Answer Geremias e Recorded Help with Day to Day Activities Not on file 02/27/2023 Feeling Lonely or Isolated Not on file 02/27 Educational Attainment Answer Date Mendez rded Speak language other than Fijian at home Not on file 02/27/2023 Want [...] On: 07/24/2021 9:10 EDT by Kelsea Donovan LPN-OLS-ZVZ-Yjmnxcekmbf Therapy WOCN Admission Date : Admit Date [...] team consulted to assess coccyx. Wound care manufacturing team leader at bedside patient on LUIS surface. Family at bedside. Assessment performed and recommendations made for shear and friction and pressure prevention. If any chnages to skin integrity please consult wound care dept. Kelsea Donovan LPN-QRO-EAN-Oulhkoxakqn Therapy - 07/24/2021 11:04 EDT documented in this encounter Plan of Treatment Not on file documented as of this encounter Visit Diagnoses Not on filedocumented in this encounter Care Teams Travel Cota Relationship Specialty Start Date End Date Linh Doty, 8 [facility] [address] [place] [address] PCP - General Family Medicine 11/04/22 Lizzie Alves PA-C [address] [facility], [facility] [address] [place] [address] Hospitalist Cardiology 05/27/23 Kaushik Mariscal MD 1401 [facility] [address] [place] [address] Photogrammetric Engineer Electrophysiology 11/18/23 documented as of this encounter
--- OUTSIDE RECORDS SUMMARY | 2024-09-16 08:58 | XMS_ITS | Encounter Summary ---
Author Organization [employer] ([place], [place], [place], [place]) Address [address] [place] [address] Care Team Providers Care Construction Ironworker Helper Name Role Phone Lalitha Linhkarthikeyan Mazariegos DO Primary Care Provider [phone] Lizzie Alves PA-C Unavailable [phone] Dion Mariscal MD Unavailable Encounter Details Date Type Department Care Team (Late st Contact Info) Description 08/27/2021 Transcribed Document [facility] [place] [address] [place] [address] ProviderChad MD [address] [place] [address] Social History Tobacco Use Types Packs/Day Years Used Date Smoking Tobacco: Never Assessed Family and Community Support Answer Geremias e Recorded Help with Day to Day Activities Not on file 02/27/2023 Feeling Lonely or Isolated Not on file 02/27 Educational Attainment Answer Date Mendez rded Speak language other than Malaysian at home Not on file 02/27/2023 Want [...] DION MARISCAL MD-REJI No qualifying data available [facility] Cardiology Discharge Note - EP Primary Real Estate Broker Associate: Dr. Benavidez PCP: Linh Doty Consults: NONE [...] 08/08/2021 for hospital follow-up from admission to [facility] from 07/16/2021-07/25/[address] her [facility] AICD on 07/24/[address] Moshe Hoffman. Incision is well-healed and without signs or symptoms of infection, drainage, or erythema. Patient will complete her last course of antibiotics on 08/15/2021 and will follow-up with [place] infectious disease consultants on 08/21/2021. Provided that [...] Normal range of motion. Integumentary: Warm, Dry, [place]. Neurologic: Alert, Oriented. Psychiatric: Cooperative, Appropriate mood & affect. Telemetry: SR 64 Procedures this admission: Conclusion: Successful Procedure(s) of: 1. Single CHAMBER ICD SYSTEM PLACEMENT - [facility] Discharge Diagnoses: 1. Successful implantation of a [...] BEDTIME 14. Vitamin D (Ergocalciferol) 1.25 MG (87478 [place]) Oral Capsule; TAKE ONE CAPSULE BY MOUTH ONCE A WEEK Allergies (1) Active Reaction NKDA Disposition: Patient sent home in stable condition with family support. Discharge Instructions: Cardiac Diet. Post Cath Instructions. Activity as tolerated Smoking cessation and risk factor modification addressed - requesting smoking patches which we have asked pharmacy to fill Followup Appointments: PCP in 5 - 7 days. Primary Real Estate Broker Associate in [address] Mariscal Lynne 09/03/2021 at 1400 Patient has been instructed on and verbalized an understanding of the above discharge instructions. Plan has been discussed and is in agreement with Dr. Suzy Katz, SARAH documenting for Dr. Mariscal Electronically signed by [facility], [facility] Conversion Steward/Stewardess Railroad Dining Car Cerner at 05/27/2022 9:17 PM CDT documented in this encounter Plan of Treatment Not on file documented as of this encounter Visit Diagnoses Not on filedocumented in this encounter Care Teams Construction Ironworker Helper Relationship Specialty Start Date End Date Linh Doty, DO 8 [facility] [address] [place] [address] PCP - General Family Medicine 11/04/22 Lizzie Alves PA-C [address] [place] [address], [facility] [address] [place] [address] Hospitalist Cardiology 05/27/23 Dion Mariscal MD 1401 [facility] [address] [place] [address] Real Estate Broker Associate Electrophysiology 11/18/23 documented as of this encounter
--- OUTSIDE RECORDS SUMMARY | 2024-09-16 08:58 | XMS_ITS | Encounter Summary ---
Author Organization [employer] ([place], [place], [place], [place]) Address [address] [place] [address] Care Team Providers Care Forest Pathology Professor Name Role Phone Lalitha Linhkarthikeyan Mazariegos DO Primary Care Provider [phone] Lizzie Alves PA-C Unavailable [phone] Kaushik Mariscal MD Unavailable Encounter Details Date Type Department Care Team (Late st Contact Info) Description 08/27/2021 Transcribed Document [facility] Family Medicine [address] [place] [address] ProviderChad MD [address] [place] [address] Social History Tobacco Use Types [...] 08/27/2021 11:04 EDT Electronically signed by Rekha, [facility] Conversion Conduit Installer Cerner at 05/27/2022 9:09 PM CDT documented in this encounter Plan of Treatment Not on file documented as of this encounter Visit Diagnoses Not on filedocumented in this encounter Care Teams Forest Pathology Professor Relationship Specialty Start Date End Date Linh Doty, DO 8 [facility] [address] [place] [address] PCP - General Family Medicine 11/04/22 Lizzie Alves PA-C 1401 [facility], [facility] [address] [place] [address] Hospitalist Cardiology 05/27/23 Kaushik Mariscal MD 1401 [facility] [address] [place] [address] Electric Milkers Installer Electrophysiology 11/18/23 documented as of this encounter
--- OUTSIDE RECORDS SUMMARY | 2024-09-16 08:58 | XMS_ITS | Encounter Summary ---
Author Organization [employer] ([place], [place], [place], [place]) Address [address] [place] [address] Care Team Providers Care Stadium Manager Name Role Phone Lalitha Linhkarthikeyan Mazariegos DO Primary Care Provider [phone] Lizzie Alves PA-C Unavailable [phone] Kaushik Mariscal MD Unavailable Encounter Details Date Type Department Care Team (Late st Contact Info) Description 11/23/2018 Transcribed Document [facility] Family Medicine [facility] [place] [address] ProviderChad MD [address] [place] [place] [address] Social History Tobacco Use Types Packs/Day [...] Source : Stated Height Entry Format : Perry Height, Feet : 0 ft(Converted to: 0 cm, 0 Inch) Height, Inches : 70 Inch(Converted to: 5 ft 10 Inch, 177.80 cm) Clinical Height : 177.8 cm Weight Source : Standing scale Weight Entry Format : Perry Clinical Dosing Weight : 77.27 kg Weight, Pounds : 170 lb Body Surface Area (BSA) : 1.95 m2 Body Mass Index : 24.4 kg/m2 (HI) [place] Body Weight : 68 kg ELAINE CHOI [...] : No Emergency Contact #1 : Alexx- [phone]- cell number Emergency Contact #1 Phone Number : boyfriend. Emergency Contact #1 Relationship : - Emergency Contact #2 : - Emergency Contact #2 Phone Number : - Emergency Contact #2 Relationship : - Primary Language : Botswanan Communication Barrier : None ELAINE CHOI RN [...] Scale Risk Level : 0-24 Low Risk Norton Fall Interventions : Wheels locked ELAINE CHOI [...] on filedocumented in this encounter Care Teams Stadium Manager Relationship Specialty Start Date End Date Linh Doty, [address] [place] [address] PCP - General Family Medicine 11/04/22 Lizzie Alves PA-C [address] , [facility] [address] [place] [address] Hospitalist Cardiology 05/27/23 Kaushik Mariscal MD [address] [facility] [place] [address] Lpta Electrophysiology 11/18/23 documented as of this encounter
--- OUTSIDE RECORDS SUMMARY | 2024-09-16 08:58 | XMS_ITS | Encounter Summary ---
Author Organization [employer] ([place], [place], [place], [place]) Address [address] [place] [address] Care Team Providers Care Teletype Operator Name Role Phone Lalitha Linh Delilah DAVIS Primary Care Provider [phone] Lizzie Alves PA-C Unavailable [phone] Kaushik Mariscal MD Unavailable Encounter Details Date Type Department Care Team (Late st Contact Info) Description 07/01/2021 Transcribed Document [facility] [place] [address] [place] [address] ProviderChad MD [address] [place] [address] Social History Tobacco Use Types Packs/Day Years Used Date Smoking Tobacco: Never Assessed Family and Community Support Answer Geremias e Recorded Help with Day to Day Activities Not on file 02/27/2023 Feeling Lonely or Isolated Not on file 02/27 Educational Attainment Answer Date Mendez rded Speak language other than Pakistani at home Not on file 02/27/2023 Want [...] Historical ProviderMD - 07/01/2021 5:16 PM CDT Lumber Marker Details Entered On: 07/01/2021 22:37 EDT Performed [...] - 07/01/2021 22:37 EDT Electronically signed by [facility] Conversion Mortgage Protection Sales Cerner at 05/27/2022 9:02 PM CDT documented in this encounter Plan of Treatment Not on file documented as of this encounter Visit Diagnoses Not on filedocumented in this encounter Care Teams Teletype Operator Relationship Specialty Start Date End Date Linh Doty, 8 [facility] [address] [place] [address] PCP - General Family Medicine 11/04/22 Lizzie Alves PA-C 1401 [facility], [facility] [address] [place] [address] Hospitalist Cardiology 05/27/23 Kaushik Mariscal MD 1401 [facility] [address] [place] [address] Quality Assurance Inspector Electrophysiology 11/18/23 documented as of this encounter
--- OUTSIDE RECORDS SUMMARY | 2024-09-16 08:58 | XMS_ITS | Encounter Summary ---
Author Organization [employer] ([place], [place], [place], [place]) Address [address] [place] [address] Care Team Providers Care Silviculturist Name Role Phone Lalitha Linh Delilah DAVIS Primary Care Provider [phone] Lizzie Alves PA-C Unavailable [phone] Kaushik Mariscal MD Unavailable Encounter Details Date Type Department Care Team (Late st Contact Info) Description 07/24/2021 Transcribed Document [facility] Family Medicine [address] [place] [address] ProviderChad MD [address] [place] [address] Social History Tobacco Use Types Packs/Day [...] - 07/24/2021 4:47 EDT Electronically signed by [facility] Conversion Scout Leaser Cerner at 05/27/2022 9:11 PM CDT documented in this encounter Plan of Treatment Not on file documented as of this encounter Visit Diagnoses Not on filedocumented in this encounter Care Teams Silviculturist Relationship Specialty Start Date End Date Linh Doty, [address] [facility] [address] [place] [address] PCP - General Family Medicine 11/04/22 Lizzie Alves PA-C 1401 [facility], [facility] [address] [place] [address] Hospitalist Cardiology 05/27/23 Kaushik aMriscal MD 1401 [facility] [address] [place] [address] Maintenance Painter Electrophysiology 11/18/23 documented as of this encounter
--- OUTSIDE RECORDS SUMMARY | 2024-09-16 08:58 | XMS_ITS | Encounter Summary ---
Author Organization [employer] ([place], [place], [place], [place]) Address [address] [place] [address] Care Team Providers Care Enterprise Sales Person Name Role Phone Linh Doty DO Primary Care Provider [phone] Lizzie Alves PA-C Unavailable [phone] Kaushik Mariscal MD Unavailable Encounter Details Date Type Department Care Team (Late st Contact Info) Description 11/23/[address] [facility] Family Medicine [facility] [address] ProviderChad MD [address] [place] [address] Social History Tobacco Use Types Packs/Day [...] 11/23/2018 8:12 EDT Electronically signed by Rekha [facility] Conversion Daycare Provider Cerner at 05/27/2022 9:25 PM CDT documented in this encounter Plan of Treatment Not on file documented as of this encounter Visit Diagnoses Not on filedocumented in this encounter Care Teams Enterprise Sales Person Relationship Specialty Start Date End Date Linh Doty, 8 [facility] [address] [place] [address] PCP - General Family Medicine 11/04/22 Lizzie Alves PA-C [address] [place] [address], [facility] [address] [place] [address] Hospitalist Cardiology 05/27/23 Kaushik Mariscal MD 14[address] [facility] [address] [place] [address] Air Traffic Systems Technician Electrophysiology 11/18/23 documented as of this encounter
--- OUTSIDE RECORDS SUMMARY | 2024-09-16 08:58 | XMS_ITS | Encounter Summary ---
Author Organization [employer] ([place], [place], [place], [place]) Address [address] [place] [address] Care Team Providers Care Aviation Ordnance Officer Name Role Phone Lalitha Linhkarthikeyan Mazariegos DO Primary Care Provider [phone] Lizzie Alves PA-C Unavailable [phone] Kaushik Mariscal MD Unavailable Encounter Details Date Type Department Care Team (Late st Contact Info) Description 07/24/2021 Transcribed Document [facility] Family Medicine [address] [place] [address] ProviderChad MD [address] [place] [address] Social History Tobacco Use Types Packs/Day [...] was infiltrated with 1% lidocaine locally. A 4-Tajik sheath was placed in the right femoral artery and used for continuous arterial pressure monitoring. A 10-Tajik sheath was placed in the right femoral [...] from the retention sutures. Next, using an 11-Tajik manual cutting sheath, the lead was freed to the level of the SVC. The cutting sheath was then exchanged for 14-Tajik laser powered sheath, which was used to [...] RECOMMENDATIONS: Reimplantation when cleared from ID standpoint. /[id number] Richard Hoffman MD TCR/AQ / TCR / MODL /[id number] Electronically signed by Interface, [facility] Conversion Assistant Superintendent For Curriculum Cerner at 05/27/2022 9:00 PM CDT documented in this encounter Plan of Treatment Not on file documented as of this encounter Visit Diagnoses Not on filedocumented in this encounter Care Teams Aviation Ordnance Officer Relationship Specialty Start Date End Date Linh Doty, DO 8 [facility] [address] [place] [address] PCP - General Family Medicine 11/04/22 Lizzie Alves PA-C [address] [place] [address], [facility] [address] [place] [address] Hospitalist Cardiology 05/27/23 Kaushik Mariscal MD [address] [facility] [address] [place] [address] Gas Shovel Operator Electrophysiology 11/18/23 documented as of this encounter
--- OUTSIDE RECORDS SUMMARY | 2024-09-16 08:58 | XMS_ITS | Encounter Summary ---
Author Organization [employer] ([place], [place], [place], [place]) Address [address] [place] [address] Care Team Providers Care Logging Shovel Operator Name Role Phone Lalitha Linhkarthikeyan Mazariegos DO Primary Care Provider [phone] Lizzie Alves PA-C Unavailable [phone] Kaushik Mariscal MD Unavailable Encounter Details Date Type Department Care Team (Late st Contact Info) Description 07/23/2021 Transcribed Document [facility] Family Medicine [address] [place] [address] ProviderChad MD [address] [place] [address] Social History Tobacco Use Types Packs/Day [...] Historical ProviderMD - 07/23/2021 2:00 AM CDT Lockstitch Coat Joiner Details Entered On: 07/23/2021 2:24 EDT Performed On: 07/23/2021 2:00 EDT by Jessica Recinos Lpn Order Details Patient Needs Meds Crushed/Liquid : No Jessica Recinos Lpn - 07/23/2021 2:24 EDT Electronically signed by [facility] Conversion Ice Seller Cerner at 05/27/2022 9:03 PM CDT documented in this encounter Plan of Treatment Not on file documented as of this encounter Visit Diagnoses Not on filedocumented in this encounter Care Teams Logging Shovel Operator Relationship Specialty Start Date End Date Linh Doty, 8 [facility] [address] [place] [address] PCP - General Family Medicine 11/04/22 Lizzie Alves PA-C 1401 [facility] [address] [place] [address] Hospitalist Cardiology 05/27/23 Kaushik Mariscal MD 1401 [facility] [address] [place] [address] Staffing Rn Electrophysiology 11/18/23 documented as of this encounter
--- OUTSIDE RECORDS SUMMARY | 2024-09-16 08:58 | XMS_ITS | Encounter Summary ---
Author Organization [employer] ([place], [place], [place], [place]) Address [address] [place] [address] Care Team Providers Care Water Resources Engineer Name Role Phone Lalitha Linhkarthikeyan Mazariegos DO Primary Care Provider Lizzie Alves PA-C Unavailable [phone] Kaushik Mariscal MD Unavailable Encounter Details Date Type Department Care Team (Late st Contact Info) Description 07/23/2021 Transcribed Document [facility] Family Medicine [address] [place] [address] ProviderChad MD [address] [place] [address] Social History Tobacco Use Types Packs/Day Years Used Date Smoking Tobacco: Never Assessed Family and Community Support Answer Geremias e Recorded Help with Day to Day Activities Not on file 02/27/2023 Feeling Lonely or Isolated Not on file 02/27 Educational Attainment Answer Date Mendez rded Speak language other than Sierra Leonean at home Not on file 02/27/2023 Want [...] 07/23/2021 21:20 EDT Electronically signed by Rekha [facility] Conversion Pig Sticker Cerner at 05/27/2022 9:10 PM CDT documented in this encounter Plan of Treatment Not on file documented as of this encounter Visit Diagnoses Not on filedocumented in this encounter Care Teams Water Resources Engineer Relationship Specialty Start Date End Date Linh Doty, 8 [facility] [address] [place] [address] PCP - General Family Medicine 11/04/22 Lizzie Alves PA-C [address] [place] [address], [facility] [address] [place] [address] Hospitalist Cardiology 05/27/23 Kaushik Mariscal MD 1401 [facility] [address] [place] [address] Liquor Grinding Mill Operator Electrophysiology 11/18/23 documented as of this encounter
--- OUTSIDE RECORDS SUMMARY | 2024-09-16 08:58 | XMS_ITS | Encounter Summary ---
Author Organization [employer] ([place], [place], [place], [place]) Address [address] [place] [address] Care Team Providers Care Durability Technician Name Role Phone Lalitha Linh Delilah DVAIS Primary Care Provider [phone] Lizzie Alves PA-C Unavailable [phone] Kaushik Mariscal MD Unavailable Encounter Details Date Type Department Care Team (Late st Contact Info) Description 07/01/2021 Transcribed Document [facility] [place] Family Medicine [address] [place] [address] ProviderChad MD [address] [place] [address] Social History Tobacco Use Types Packs/Day [...] 07/01/2021 5:06 PM CDT Patient: LENA MENDOZA [facility]: [id number] Age: 55 Years Sex: Female : 1965 Labor Training Manager: Kaushik Mariscal MD Indication: 55-year-old femalewith past [...] generator was a [employer] model [id number] SN [id number] that replaced the old generator. Complications: No immediate complications were observed. Blood loss around 10 mL. Conclusion: Successful Procedure(s) of: 1. SINGLE CHAMBER SYSTEM REPLACEMENT Plan: Discharge tomorrow. documented in this encounter Plan of Treatment Not on file documented as of this encounter Visit Diagnoses Not on filedocumented in this encounter Care Teams Durability Technician Relationship Specialty Start Date End Date Luistobias Linh Delilah, DO 8 [facility] [address] [place] [address] PCP - General Family Medicine 11/04/22 Lizzie Alves PA-C 1401 [facility], [facility] [address] [place] [address] Hospitalist Cardiology 05/27/23 Kaushik Mariscal MD 1401 [facility] [address] [place] [address] Elementary Educator Electrophysiology 11/18/23 documented as of this encounter
--- OUTSIDE RECORDS SUMMARY | 2024-09-16 08:58 | XMS_ITS | Encounter Summary ---
Author Organization [employer] ([place], [place], [place], [place]) Address [address] [place] [address] Care Team Providers Care Pawn Broker Name Role Phone Lalitha Linhkarthikeyan Mazariegos DO Primary Care Provider [phone] Lizize Alves PA-C Unavailable [phone] Dion Mariscal MD Unavailable Encounter Details Date Type Department Care Team (Late st Contact Info) Description 08/27/2021 Transcribed Document [facility] [place] Family Medicine [address] [place] [address] ProviderChad MD [address] [place] [address] Social History Tobacco Use Types [...] Historical ProviderMD - 08/27/2021 1:06 PM CDT [facility] [place] [address] LENA MENDOZA :1965 Visit Time:08/26/2021 [...] Bring discharge instructions with you Where: [address] [place] [address]- Follow Up with LINH WILLIAM DO-FAM When 09/04/2021 10:00 AM EDT Comments PCP appt made, Bring discharge instructions with you Where: [address] [address]- Follow Up with DION MARISCAL When 09/03/2021 02:00 PM EDT Comments wound device check in 1 week scheduled for 09/03/2021 at [address] Mariscal Where: [address] [facility] [address] [place] [address]- Business (1) Medications What How Much When Instructions Next Dose cephalexin (Keflex 500 mg oral capsule) 1 Capsule(s) Oral Three Times A Day Duration: 7 Day(s) Pickup at [facility] nicotine (nicotine 14 mg/ 24 hr transdermal film, extended release) 1 Patch(es) TransDermal Every Day Duration: 14 Day(s) Pickup at [facility] acetaminophen-hydrocodone (acetaminophen-HYDROcodone 325 mg-5 mg oral tablet) 1 Tablet(s) Oral Every 8 Hours as needed for for pain carvedilol (carvedilol 12.5 mg oral tablet) 1 Tablet(s) Oral Two Times A Day ergocalciferol (Vitamin D2 1.25 mg (50,000 intl units) oral capsule) 1 Capsule(s) Oral Weekly fluticasone nasal (fluticasone 50 mcg/ inh nasal spray) 2 Grant(s) Nasal Every Day as needed for Nasal [...] 1 Tablet(s) Oral At Bedtime Pharmacy Information [facility] [place]: [address] [place] [address] [address] [place], [place] [id number] [phone] Take your medications faithfully. Do NOT skip [...] these instructions at home: Medicines ??? Take pkow-uer-hbezkfe and prescription medicines only as told by [...] or bruising over the incision. ??? Take dkjd-lho-ttrkoiy and prescription medicines only as told by [...] provider. Document Revised: 12/28/2019 Document Reviewed: 12/28/2019 [employer] Patient Education ?? [address] [employer] General Anesthesia, Adult, Care After This [...] activities are safe for you. ??? Take payb-zqj-jgxxkfw and prescription medicines only as told by [...] provider. Document Revised: 10/11/2020 Document Reviewed: 05/10/2020 [employer] Patient Education ?? 2020 [employer]. Heart-Healthy Eating Plan Heart-healthy meal planning includes: [...] Fats and oils Meat fat, or shortening. [place] butter, hydrogenated oils, palm oil, coconut oil, [...] provider. Document Revised: 04/01/2018 Document Reviewed: 03/05/2018 [employer] Patient Education ?? 2020 [employer]. nicotine (transdermal) (AMADA [place] teen) Belkis Hines [...] may report side effects to FDA at 8-506-UAQ-0150. What other drugs will affect nicotine? Other drugs may affect nicotine transdermal, including prescription and mmnj-ozh-vumnmym medicines, vitamins, and herbal products. Tell your [...] to ensure that the information provided by [employer]. ('[employer]') is accurate, up-to-date, and complete, but no guarantee is made to that effect. Drug information contained herein may be time sensitive. [employer] information has been compiled for use by healthcare practitioners and consumers in the [place] and therefore [employer] does not warrant that uses outside of the [place] are appropriate, unless specifically indicated otherwise. [employer] drug information does not endorse drugs, diagnose patients or recommend therapy. [employer] drug information is an informational resource designed [...] effective or appropriate for any given patient. [employer] does not assume any responsibility for any aspect of healthcare administered with the aid of information [employer] provides. The information contained herein is not intended to cover all possible uses, directions, precautions, warnings, drug interactions, allergic reactions, or adverse effects. If you have questions about the drugs you are taking, check with your doctor, nurse or pharmacist. Copyright 7641-6604 [employer]. Version: 3.01. Revision Date: 09/16/2018. cephalexin (sef [...] may report side effects to FDA at 8-366-QFJ-3947. What other drugs will affect cephalexin? Tell your doctor about all your other medicines, especially: ?? metformin; or ?? probenecid. This list is not complete. Other drugs may affect cephalexin, including prescription and cvqz-ubm-ozqfqtx medicines, vitamins, and herbal products. Not all [...] to ensure that the information provided by [employer]. ('[employer]') is accurate, up-to-date, and complete, but no guarantee is made to that effect. Drug information contained herein may be time sensitive. [employer] information has been compiled for use by healthcare practitioners and consumers in the [place] and therefore [employer] does not warrant that uses outside of the [place] are appropriate, unless specifically indicated otherwise. [employer] drug information does not endorse drugs, diagnose patients or recommend therapy. [employer]ll drug information is an informational resource designed [...] effective or appropriate for any given patient. [employer] does not assume any responsibility for any aspect of healthcare administered with the aid of information [employer] provides. The information contained herein is not intended to cover all possible uses, directions, precautions, warnings, drug interactions, allergic reactions, or adverse effects. If you have questions about the drugs you are taking, check with your doctor, nurse or pharmacist. Copyright 6883-9215 [employer]. Version: 10.03. Revision Date: 02/13/2020. Emergency Awareness [...] Assistance with quitting is available by contacting 1-359-INKP-NOW. This is a free resource providing counseling, [...] range between ( 0.0 and 7.0 ) [place] #: 0.62 K/uL -- Normal range between ( 0.16 and 1.00 ) Eos #: 0.21 x10(3)/uL -- Normal range between ( 0.00 and 0.80 ) Gilpin %: 6.9 % -- Normal range between [...] was given the opportunity to ask questions. Patient/Director Risk Name: Patient/Director Risk Signature: Relationship to Patient: Clinician/Hospital Director Risk Signature: Date: documented in this encounter Plan of Treatment Not on file documented as of this encounter Visit Diagnoses Not on filedocumented in this encounter Care Teams Pawn Broker Relationship Specialty Start Date End Date Linh William, DO 8 [facility] [address] [place] [address] PCP - General Family Medicine 11/04/22 Lizzie Alves PA-C [address] [place] [address], [facility] [address] [place] [address] Hospitalist Cardiology 05/27/23 Dion Mariscal MD 1401 [facility] [address] [place] [address] Forms Designer Electrophysiology 11/18/23 documented as of this encounter
--- OUTSIDE RECORDS SUMMARY | 2024-09-16 08:58 | XMS_ITS | Encounter Summary ---
Author Organization [employer] ([place], [place], [place], [place]) Address [address] [place] [address] Care Team Providers Care Brass Wind Instruments Tube Bender Name Role Phone Linh Doty DO Primary Care Provider [phone] Lizzie Alves PA-C Unavailable [phone] Kaushik Mariscal MD Unavailable Reason for Referral * Echocardiography (Routine) - Closed Specialty Diagnoses / Procedures Referred By Contac t Referred To Contact Diagnoses Nonspecific abnormal electrocardiogram (ECG) (EKG) Disease of cardiovascular system Essential hypertension, malignant Procedures ECHO COMPLETE (DOPPLER / COLOR) W OR WO CONTRAST Lenka Benavidez MD [address] [place] [address] Phone: tel: fax: Referral ID Status Reason Start Date Expiration Date Visits Re quested Visits Authorized [id number] Closed 11/05/2021 01/30/2022 1 1 Encounter Details Date Type Department Care Team (Late st Contact Info) Description 11/01/2021 Outside Orders [facility] Central Scheduling [address] [place] [address] Lenka Benavidez MD [address] [place], [place] [id number] Nonspecific abnormal electrocardiogram (ECG) (EKG) (Primary Dx); [...] malignant documented in this encounter Care Teams Brass Wind Instruments Tube Bender Relationship Specialty Start Date End Date Linh Doty, DO 8 [facility] [address] [place] [address] PCP - General Family Medicine 11/04/22 Lizzie Alves PA-C 1401 [facility] [address] [place] [address] Hospitalist Cardiology 05/27/23 Kaushik Mariscal MD 1401 [facility] [address] [place], [place] [id number] Kinesiotherapist Electrophysiology 11/18/23 documented as of this encounter
--- OUTSIDE RECORDS SUMMARY | 2024-09-16 08:58 | XMS_ITS | Encounter Summary ---
Author Organization [employer] ([place], [place], [place], [place]) Address [address] [place] [address] Care Team Providers Care Cost Report Clerk Name Role Phone Linh Doty DO Primary Care Provider [phone] Lizzie Alves PA-C Unavailable [phone] Kaushik Mariscal MD Unavailable Encounter Details Date Type Department Care Team (Late st Contact Info) Description 11/23/2018 Transcribed Document [facility] [place] [facility] [place] [address] ProviderChad MD [address] [place] [address] Social History Tobacco Use Types Packs/Day [...] Document Reviewed: 02/28/2011 ExitCare? Patient Information ?2013 [employer]. Cerebral Angiogram, Care After This sheet gives [...] and water are not available, use hand hand button splitter. ? Change your dressing as told by [...] contrast dye from your body. ??? Take uolg-hyh-afwhgpz and prescription medicines only as told by [...] 06/12/2014 Document Revised: 03/02/2017 Document Reviewed: 03/02/2017 [employer] Interactive Patient Education ? 2019 Elsevier Inc. [...] you are awake and alert. ??? Take reqm-htj-tfevdbr and prescription medicines only as told by [...] 11/16/2013 Document Revised: 06/30/2016 Document Reviewed: 05/17/2016 [employer] Interactive Patient Education ? 2019 [employer] documented in this encounter Plan of Treatment Not on file documented as of this encounter Visit Diagnoses Not on filedocumented in this encounter Care Teams Cost Report Clerk Relationship Specialty Start Date End Date Linh Doty, DO 8 [facility] [address] [place] [address] PCP - General Family Medicine 11/04/22 Lizzie Alves PA-C 1401 [facility], [facility] [address] [place] [address] Hospitalist Cardiology 05/27/23 Kaushik Mariscal MD [address] [facility] [address] [place] [address] Software Maintenance Engineer Electrophysiology 11/18/23 documented as of this encounter
--- OUTSIDE RECORDS SUMMARY | 2024-09-16 08:58 | XMS_ITS | Encounter Summary ---
Author Organization [employer] ([place], [place], [place], [place]) Address [address] [place] [address] Care Team Providers Care Funeral Limousine Driver Name Role Phone Linh Doty DO Primary Care Provider [phone] Lizzie Alves PA-C Unavailable [phone] Kaushik Mariscal MD Unavailable Encounter Details Date Type Department Care Team (Late st Contact Info) Description 11/23/2018 Transcribed Document [facility] [place] [facility] [place] [address] ProviderChad MD [address] [place] [address] Social History Tobacco Use Types Packs/Day [...] 11/23/2018 13:33 EDT Electronically signed by Rekha [facility] Conversion Assistant Grocery Cerner at 05/27/2022 9:20 PM CDT documented in this encounter Plan of Treatment Not on file documented as of this encounter Visit Diagnoses Not on filedocumented in this encounter Care Teams Funeral Limousine Driver Relationship Specialty Start Date End Date Linh Doty, DO 8 [facility] [address] [place] [address] PCP - General Family Medicine 11/04/22 Lizzie Alves PA-C [address] [place] [address], [facility] [address] [place] [address] Hospitalist Cardiology 05/27/23 Kaushik Mariscal MD 1401 [facility] [address] [place] [address] Leather Leveler Electrophysiology 11/18/23 documented as of this encounter
--- OUTSIDE RECORDS SUMMARY | 2024-09-16 08:58 | XMS_ITS | Encounter Summary ---
Author Organization [employer] ([place], [place], [place], [place]) Address [address] [place] [address] Care Team Providers Care Corrosion Engineer Name Role Phone Lalitha Linhkarthikeyan Mazariegos DO Primary Care Provider [phone] Lizzie Alves PA-C Unavailable [phone] Kaushik Mariscal MD Unavailable Encounter Details Date Type Department Care Team (Late st Contact Info) Description 07/01/2021 Transcribed Document [facility] [place] Family [place] [address] [place] [address] ProviderChad MD [address] [place] [address] Social History Tobacco Use Types Packs/Day [...] Source : Stated Height Entry Format : [place] Height, Feet : 5 ft(Converted to: 152 cm, 60 Inch) Height, Inches : 7 Inch(Converted to: 0 ft 7 Inch, 17.78 cm) Clinical Height : 170.18 cm Weight Source : Standing scale Weight Entry Format : [place] Clinical Dosing Weight : 61.36 kg Weight, Pounds : 135 lb Body Surface Area (BSA) : 1.71 m2 Body Mass Index : 21.2 kg/m2 Viking Body Weight : 61 kg Rere Ramos [...] Rere Ramos RN - 07/01/2021 12:58 EDT [place] Suicide Severity Rating Scale (C-SSRS) CSSRS Past [...] Obtained From : Patient Primary Language : Iraqi Preferred Communication Mode : Verbal Communication Barrier : None Hydraulic Dredge Operator Needed : No Rere Ramos RN - [...] Scale Risk Level : 25-45 Medium Risk [place] Fall Interventions : Adequate lighting, Assistive devices [...] on filedocumented in this encounter Care Teams Corrosion Engineer Relationship Specialty Start Date End Date Linh Doty, DO 8 [facility] [address] [place] [address] PCP - General Family Medicine 11/04/22 Lizzie Alves PA-C [address] [place] [address], [facility] [address] [place] [address] Hospitalist Cardiology 05/27/23 Kaushik Mariscal MD 1401 [facility] [address] [place] [address] Burn Out Scarfing Operator Electrophysiology 11/18/23 documented as of this encounter
--- OUTSIDE RECORDS SUMMARY | 2024-09-16 08:58 | XMS_ITS | Encounter Summary ---
Author Organization [employer] ([place], [place], [place], [place]) Address [address] [place] [address] Care Team Providers Care Behavioral Health Case Manager Name Role Phone Lalitha Linhkarthikeyan Mazariegos DO Primary Care Provider [phone] Lizzie Alves PA-C Unavailable [phone] Dion Mariscal MD Unavailable Encounter Details Date Type Department Care Team (Late st Contact Info) Description 07/23/2021 Transcribed Document [facility] [place] Medicine [address] [place] [address] ProviderChad MD [address] [place] [address] Social History Tobacco Use Types Packs/Day Years Used Date Smoking Tobacco: Never Assessed Family and Community Support Answer Geremias e Recorded Help with Day to Day Activities Not on file 02/27/2023 Feeling Lonely or Isolated Not on file 02/27 Educational Attainment Answer Date Mendez rded Speak language other than Bahamian at home Not on file 02/27/2023 Want [...] 3 mL, Nebulized Inhalation , Q8H ergocalciferol, 92451 Units= 1 Cap, Oral, Weekly Florastor, 250 [...] MD 07/22/2021 13:42 EDT [address]ically [address] by [facility] Conversion Lime Plant Operator Cerner at 05/27/2022 9:24 PM CDT documented in this encounter Plan of Treatment Not on file documented as of this encounter Visit Diagnoses Not on filedocumented in this encounter Care Teams Behavioral Health Case Manager Relationship Specialty Start Date End Date Lalitha Linh L, DO [address] [facility] [address] [place] [address] PCP - General Family Medicine 11/04/22 Lizzie Alves PA-C [address] [place] [address], [facility] [address] [place] [address] Hospitalist Cardiology 05/27/23 Dion Mariscal MD 1401 [facility] [address] [place] [address] Mail Room Electrophysiology 11/18/23 documented as of this encounter
--- OUTSIDE RECORDS SUMMARY | 2024-09-16 08:58 | XMS_ITS | Encounter Summary ---
Author Organization [employer] ([place], [place], [place], [place]) Address [address] [place] [address] Care Team Providers Care Residency Coordinator Name Role Phone Lalitha Linh Delilah DAVIS Primary Care Provider [phone] Lizzie Alves PA-C Unavailable [phone] Kaushik Mariscal MD Unavailable Encounter Details Date Type Department Care Team (Late st Contact Info) Description 07/01/2021 Transcribed Document [facility] [place] Family [place] [address] [place] [address] ProviderChad MD [address] [place] [address] Social History Tobacco Use Types Packs/Day Years Used Date Smoking Tobacco: Never Assessed Family and Community Support Answer Geremias e Recorded Help with Day to Day Activities Not on file 02/27/2023 Feeling Lonely or Isolated Not on file 02/27 Educational Attainment Answer Date Mendez rded Speak language other than Equatorial Guinean at home Not on file 02/27/2023 [...] ABBIE MANDUJANO RN - 07/01/2021 19:38 EDT Electronically signed by Rekha [facility] Conversion Needle Loom Setter Cerner at 05/27/2022 9:05 PM CDT documented in this encounter Plan of Treatment Not on file documented as of this encounter Visit Diagnoses Not on filedocumented in this encounter Care Teams Residency Coordinator Relationship Specialty Start Date End Date Linh Doty, DO 8 [facility] [address] [place] [address] PCP - General Family Medicine 11/04/22 Lizzie Alves PA-C 1401 [facility], [facility] [address] [place] [address] Hospitalist Cardiology 05/27/23 Kaushik Mariscal MD 1401 [facility] [address] [place] [address] Hub Cutter Electrophysiology 11/18/23 documented as of this encounter
--- OUTSIDE RECORDS SUMMARY | 2024-09-16 08:58 | XMS_ITS | Encounter Summary ---
Author Organization [employer] ([place], [place], [place], [place]) Address [address] [place] [address] Care Team Providers Care Dials Supervisor Name Role Phone Lalitha Linh Delilah DAVIS Primary Care Provider [phone] Lizzie Alves PA-C Unavailable [phone] Kaushik Mariscal MD Unavailable Encounter Details Date Type Department Care Team (Late st Contact Info) Description 07/01/2021 Transcribed Document [facility] [place] Family Medicine [address] [place] [address] ProviderChad MD [address] [place] [address] Social History Tobacco Use Types Packs/Day [...] 07/01/2021 22:37 EDT Electronically signed by Rekha [facility] Conversion Consulting Services Project Manager Cerner at 05/27/2022 9:07 PM CDT documented in this encounter Plan of Treatment Not on file documented as of this encounter Visit Diagnoses Not on filedocumented in this encounter Care Teams Dials Supervisor Relationship Specialty Start Date End Date Linh Doty, 8 [facility] [address] [place] [address] PCP - General Family Medicine 11/04/22 Lizzie Alves PA-C [address] [place] [address] [address] [place] [address] Hospitalist Cardiology 05/27/23 Kaushik Mariscal MD 1401 [facility] [address] [place] [address] Literacy Consultant Electrophysiology 11/18/23 documented as of this encounter
--- OUTSIDE RECORDS SUMMARY | 2024-09-16 08:58 | XMS_ITS | Encounter Summary ---
Author Organization [employer] ([place], [place], [place], [place]) Address [address] [place] [address] Care Team Providers Care Pit And Auxiliaries Supervisor Name Role Phone Linh William DO Primary Care Provider Lizzie Alves PA-C Unavailable [phone] Kaushik Mariscal MD Unavailable Encounter Details Date Type Department Care Team (Late st Contact Info) Description 11/23/2018 Transcribed Document [facility] [place] [facility] [place] [address] ProviderChad MD [address] [place] [address] Social History Tobacco Use Types Packs/Day [...] Merchant MD - 11/23/2018 1:18 PM CDT [facility] [place] [address] GAGAN MENDOZA :1965 Visit Time:11/23/2018 Your Visit Summary Your Care Team Admitting Physician - PUNEET BROOKS MD-CAR Attending Physician - PUNEET BROOKS MD-CAR Primary Care Physician - LINH WILLIAM MD-[facility] Referring Physician - PUNEET BROOKS MD-CAR Your Diagnosis Atherosclerosis of resighini arteries of extremities with intermittent claudication, right leg, Atherosclerosis of resighini arteries of extremities with intermittent claudication, right leg Discharge Vitals Temperature 36.2 ??C Heart Rate (Monitored) 82 Respiratory Rate 31 Blood Pressure 118/66 What to do next Instructions From Your Care Team 1. No driving for 24 hrs post procedure. 2. If site bleeds- call 911. hold pressure at the site. 3. Stroke- signs and symptoms - call 911. 4. Start plavix tomorrow. field support technician chantix- at pharmacy. Follow-Up Appointments Follow Up with [facility] When Within 2 to 4 weeks Medications What How Much When Instructions Next Dose clopidogrel (Plavix 75 mg oral tablet) 1 Tablet(s) Oral Every Day Refills: 6 Pickup at [place], [place] varenicline (Chantix 1 mg oral tablet) 1 Tablet(s) Oral Two Times A Day after meals Pickup at [facility] [place], [place] varenicline (Chantix Starter Pack 0.5 mg-1 mg oral tablet) 1 Tablet(s) Oral Two Times A Day as directed on package labeling Pickup at [place], [place] acetaminophen (Tylenol) Oral As needed for [...] Oral Two Times A Day Pharmacy Information [facility] - [place]: [address] [facility] [address] [place] [phone] Take your medications faithfully. Do NOT skip [...] Document Reviewed: 02/28/2011 ExitCare?? Patient Information ??2014 [employer]. Cerebral Angiogram, Care After This sheet gives [...] and water are not available, use hand leacher. ? Change your dressing as told by [...] contrast dye from your body. ??? Take dozr-wfp-kgiaqbn and prescription medicines only as told by [...] you are awake and alert. ??? Take ksrv-enn-afblcmd and prescription medicines only as told by [...] 05/17/2016 Elsevier Interactive Patient Education ?? 2019 [employer] Emergency Awareness and Preventative Care STROKE [...] Assistance with quitting is available by contacting 5-470-USOUNOW. This is a free resource providing counseling, support, and referral. Or you may contact your personal physician. [place] Suicide Prevention Lifeline: The National Suicide Prevention [...] was given the opportunity to ask questions. Patient/Plastic Surgeon Name: Patient/Plastic Surgeon Signature: Relationship to Patient: Clinician/Hospital Plastic Surgeon Signature: Date: documented in this encounter Plan of Treatment Not on file documented as of this encounter Visit Diagnoses Not on filedocumented in this encounter Care Teams Pit And Auxiliaries Supervisor Relationship Specialty Start Date End Date Linh William, DO 8 [facility] [address] [place] [address] PCP - General Family Medicine 11/04/22 Lizzie Alves PA-C [address] [place] [address], [facility] [address] [place] [address] Hospitalist Cardiology 05/27/23 [place] [address] [place] [address] [address] [place] [address] Driller Multiple Spindle Electrophysiology 11/18/23 documented as of this encounter
--- OUTSIDE RECORDS SUMMARY | 2024-09-16 08:58 | XMS_ITS | Encounter Summary ---
Author Organization [employer] ([place], [place], [place], [place]) Address [address] [place] [address] Care Team Providers Care Vanstone Machine Operator Name Role Phone Lalitha Linhkarthikeyan Mazariegos DO Primary Care Provider [phone] Lizzie Alves PA-C Unavailable [phone] Kaushik Mariscal MD Unavailable Encounter Details Date Type Department Care Team (Late st Contact Info) Description 08/27/2021 Transcribed Document [facility] [place] Family Medicine [address] [place] [address] ProviderChad MD [address] [place] [address] Social History Tobacco Use Types [...] Spiritual Care Spiritual Care Referred by : Ingredient Scaler Helper initiated Reason for Visit : Initial Ministry Provided to : Patient, Family/Significant other Intervention/Comment/Summary Points : Initial Spiritual Care visit with patient and by volunteer, Tr Rico. LYNN VENEGAS - 08/27/2021 13:17 EDT Electronically signed by Rekha [facility] Conversion Licensed Chemical Spray Technician Cerner at 05/27/2022 9:27 PM CDT documented in this encounter Plan of Treatment Not on file documented as of this encounter Visit Diagnoses Not on filedocumented in this encounter Care Teams Vanstone Machine Operator Relationship Specialty Start Date End Date Linh Doty, DO 8 [facility] [address] [place] [address] PCP - General Family Medicine 11/04/22 Lizzie Alves PA-C 1401 [facility], [facility] [address] [place] [address] Hospitalist Cardiology 05/27/23 Kaushik Mariscal MD 1401 [facility] [address] [place], [place] [address] Handling Tech Electrophysiology 11/18/23 documented as of this encounter
--- OUTSIDE RECORDS SUMMARY | 2024-09-16 08:59 | XMS_ITS | Encounter Summary ---
Author Organization [employer] ([place], [place], [place], [place]) Address [address] [place] [address] Care Team Providers Care Boot Trimmer Name Role Phone Lalitha Linhkarthikeyan Mazariegos DO Primary Care Provider [phone] Lizzie Alves PA-C Unavailable [phone] Kaushik Mariscal MD Unavailable Encounter Details Date Type Department Care Team (Late st Contact Info) Description 07/25/2021 Transcribed Document [facility] [place] Family Medicine [address] [place] [address] ProviderChad MD [address] [place] [address] Social History Tobacco Use Types Packs/Day Years Used Date Smoking Tobacco: Never Assessed Family and Community Support Answer Geremias e Recorded Help with Day to Day Activities Not on file 02/27/2023 Feeling Lonely or Isolated Not on file 02/27 Educational Attainment Answer Date Mendez rded Speak language other than Mexican at home Not on file 02/27/2023 Want [...] On: 07/25/2021 13:48 EDT by Jeannie Rodriguez ICER HAND Patient Resource Center Provider Status : EST Other Established Provider Name : Linh Doty Patient Phone Number : [phone] Patient Insurance Type : Medicare Source of [...] at ED : Other Primary Language : Mexican Patient Resource Center Comment : Patient needed primary care, cardiology and infectious disease appts. Primary care and cardiology appts have been made. Infectious disease appt has already been made. Follow Up Needed : No Jeannie Rodriguez ICER HAND - 07/25/2021 13:48 EDT Electronically signed by Reyna Da Silva Conversion After School Program Teacher Cerner at 05/27/2022 9:26 PM CDT documented in this encounter Plan of Treatment Not on file documented as of this encounter Visit Diagnoses Not on filedocumented in this encounter Care Teams Boot Trimmer Relationship Specialty Start Date End Date Linh Doty, DO [address] [place] [address] PCP - General Family Medicine 11/04/22 Lizzie Alves PA-C [address] [place] , [facility] [address] [place] [address] Hospitalist Cardiology 05/27/23 Kaushik Mariscal MD 1401 [facility] [place] [address] Human Services Case Manager Electrophysiology 11/18/23 documented as of this encounter
--- OUTSIDE RECORDS SUMMARY | 2024-09-16 08:59 | XMS_ITS | Encounter Summary ---
Author Organization [employer] ([place], [place], [place], [place]) Address [address] [place] [address] Care Team Providers Care Television Anchor Name Role Phone Lalitha Linh Delilah DAVIS Primary Care Provider [phone] Lizzie Alves PA-C Unavailable [phone] Kaushik Mariscal MD Unavailable Encounter Details Date Type Department Care Team (Late st Contact Info) Description 07/23/2021 Transcribed Document [facility] [place] [facility] [place] [address] ProviderChad MD [address] [place] [address] Social History Tobacco Use Types Packs/Day Years Used Date Smoking Tobacco: Never Assessed Family and Community Support Answer Geremias e Recorded Help with Day to Day Activities Not on file 02/27/2023 Feeling Lonely or Isolated Not on file 02/27 Educational Attainment Answer Date Mendez rded Speak language other than Mongolian at home Not on file 02/27/2023 Want [...] On: 07/23/2021 13:56 EDT by Mayra Vann E Tailer Rn Care Management Progress Note Discharge Arrangements [...] Attend Multidisciplinary Rounds? : Yes Mayra Vann E Tailer Rn - 07/23/2021 13:56 EDT Narrative Progress Note Narrative Progress Note : hd 7 elos 5 low rar Plan for AICD removal 07/24 dcp- home with iv abx and hh after PPm removal Historical Progress Note : hd 6 elos 5 low rar patient has home abx arranged [facility], planned for dc today however patient now to have AICD removed on 07/24 dcp- home ?iv abx after aicd removal Mayra Vann E Tailer Rn - 07/22/21 11:22:31 hd 3 elos 5 low rar patient is [facility] to teach patient abx administration saturday 07/22. Per EP, plan to dc patient saturday 07/22. Lisa for HH. Mayra Vann E Tailer Rn - 07/19/21 13:36:36 hd 2 low rar patient has orders from ID r/t iv abx and picc care but patient has no orders for PICC placement at this time, CM has reached out to ID. home abx orders sent to [facility]. patient will also need hh dcp- home with hh and iv abx Mayra Vann E Tailer Rn - 07/18/21 16:10:37 Mayra Vann, E Tailer Rn - 07/23/2021 13:56 EDT Electronically signed by Rekha [facility] Conversion Scoop Driver Cerner at 05/27/2022 9:05 PM CDT documented in this encounter Plan of Treatment Not on file documented as of this encounter Visit Diagnoses Not on filedocumented in this encounter Care Teams Television Anchor Relationship Specialty Start Date End Date Linh Doty, 8 [facility] [address] [place] [address] PCP - General Family Medicine 11/04/22 Lizzie Alves PA-C 1401 [facility], [facility] [address] [place] [address] Hospitalist Cardiology 05/27/23 Kaushik Mariscal MD 1401 [facility] [address] [place] [address] Chain Puller Electrophysiology 11/18/23 documented as of this encounter
--- OUTSIDE RECORDS SUMMARY | 2024-09-16 08:59 | XMS_ITS | Encounter Summary ---
Author Organization [employer] ([place], [place], [place], [place]) Address [address] [place] [address] Care Team Providers Care Event Sales Manager Name Role Phone Lalitha Linhkarthikeyan Mazariegos DO Primary Care Provider Lizzie Alves PA-C Unavailable [phone] Kaushik Mariscal MD Unavailable Encounter Details Date Type Department Care Team (Late st Contact Info) Description 07/25/2021 Transcribed Document [place] Family Medicine [address] [place] [address] ProviderChad MD [address] [place] [address] Social History Tobacco Use [...] On: 07/25/2021 14:00 EDT by Mayra Vann, Nps Rn Final Discharge Planning Discharge Arrangements : [...] Services (Related/SOC within 3 days)-06 Mayra Vann Nps Rn - 07/25/2021 14:00 EDT Final Narrative Note Final Narrative Note : patient with orders to dc home. sebastien for hh. [facility] for home o2. SO to transport patient home with no mobility concerns. im and choice signed and on chart. Mayra Vann Nps Rn - 07/25/2021 14:00 EDT documented in this encounter Plan of Treatment Not on file documented as of this encounter Visit Diagnoses Not on filedocumented in this encounter Care Teams Event Sales Manager Relationship Specialty Start Date End Date Linh Doty, DO [address] [place] [address] PCP - General Family Medicine 11/04/22 Lizzie Alves PA-C [address] , [facility] [address] [place] [address] Hospitalist Cardiology 05/27/23 Kaushik Mariscal MD 1401 [facility] [place] [address] Airplane Captain Electrophysiology 11/18/23 documented as of this encounter
--- OUTSIDE RECORDS SUMMARY | 2024-09-16 08:59 | XMS_ITS | Encounter Summary ---
Author Organization [employer] ([place], [place], [place], [place]) Address [address] [place] [address] Care Team Providers Care Actuarial Intern Name Role Phone Lalitha Linhkarthikeyan Mazariegos DO Primary Care Provider Lizzie Alves PA-C Unavailable [phone] Kaushik Mariscal MD Unavailable Encounter Details Date Type Department Care Team (Late st Contact Info) Description 07/02/2021 Transcribed Document [facility] Family Medicine [address] [place] [address] ProviderChad MD [address] [place] [address] Social History Tobacco Use Types Packs/Day [...] On: 07/02/2021 12:49 EDT by ERNIE PAYAN, RN-Occupancy Specialist Final Discharge Planning Discharge Arrangements : Patient [...] : Yes Discharge To Care Management : Home/Residential/Care Home or Self Care -01 ERNIE PAYAN, RN-Occupancy Specialist - 07/02/2021 12:49 EDT Final Narrative Note Final Narrative Note : see notes regarding pt decline of home 02. follow up appts scheduled with Dr Mariscal. Dr Doty, primary care. called office. out of office for lunch. left message for them to call pt with appt time next 2-3 days. discussed all with bedside SARAH Yu. ERNIE PAYAN, RN-Occupancy Specialist - 07/02/2021 12:49 EDT documented in this encounter Plan of Treatment Not on file documented as of this encounter Visit Diagnoses Not on filedocumented in this encounter Care Teams Actuarial Intern Relationship Specialty Start Date End Date Linh Doty DO 8 [facility] [address] [place] [address] PCP - General Family Medicine 11/04/22 Lizzie Alves PA-C [address] , [facility] [address] [place] [address] Hospitalist Cardiology 05/27/23 Kaushik Mariscal MD 1401 [facility] [place] [address] Associate Broker Electrophysiology 11/18/23 documented as of this encounter
--- OUTSIDE RECORDS SUMMARY | 2024-09-16 08:59 | XMS_ITS | Encounter Summary ---
Author Organization [employer] ([place], [place], [place], [place]) Address [address] [place] [address] Care Team Providers Care Radiation Engineer Name Role Phone Linh Doty DO Primary Care Provider Lizzie Alves PA-C Unavailable [phone] Kaushik Mariscal MD Unavailable Reason for Visit * Reason Comments Medication Refill Encounter Details Date Type Department Care Team (Late st Contact Info) Description 04/27/2023 Refill [facility] Cardiology [address] [place] [address] Lenka Benavidez MD 14[address] [facility] [address] [place] [address] Atherosclerotic heart disease of [place] coronary artery without angina pectoris; Personal history [...] Visit Diagnoses Diagnosis Atherosclerotic heart disease of [place] coronary artery without angina pectoris Personal history of other diseases of the circulatory system documented in this encounter Care Teams Radiation Engineer Relationship Specialty Start Date End Date Linh Doty, 8 [facility] [address] [place] [address] PCP - General Family Medicine 11/04/22 Lizzie Alves PA-C 1401 [facility], [facility] [address] [place] [address] Hospitalist Cardiology 05/27/23 Kaushik Mariscal MD 14[address] [facility] [address] [place] [address] Carpenter Maintenance Electrophysiology 11/18/23 documented as of this encounter
--- OUTSIDE RECORDS SUMMARY | 2024-09-16 08:59 | XMS_ITS | Encounter Summary ---
Author Organization [employer] ([place], [place], [place], [place]) Address [address] [place] [address] Care Team Providers Care Mate Fourth Name Role Phone Lalitha Linhkarthikeyan Mazariegos DO Primary Care Provider [phone] Lizzie Alves PA-C Unavailable [phone] Kaushik Mariscal MD Unavailable Encounter Details Date Type Department Care Team (Late st Contact Info) Description 07/16/2021 Transcribed Document [facility] Family Medicine [address] [place] [address] ProviderChad MD [address] [place] [address] Social History Tobacco Use Types Packs/Day Years Used Date Smoking Tobacco: Never Assessed Family and Community Support Answer Geremias e Recorded Help with Day to Day Activities Not on file 02/27/2023 Feeling Lonely or Isolated Not on file 02/27 Educational Attainment Answer Date Mendez rded Speak language other than [place]ore[place] at home Not on file 02/27/2023 Want [...] MARY HUYNH, OTR/L - 07/18/2021 13:56 EDT [place] OT Charges OT Eval Low Complexity : 1 MARY HUYNH OTR/L - 07/18/2021 13:56 EDT Electronically signed by Rekha [facility] Conversion Metalworking Specialist Cerner at 05/27/2022 9:06 PM CDT documented in this encounter Plan of Treatment Not on file documented as of this encounter Visit Diagnoses Not on filedocumented in this encounter Care Teams Mate Fourth Relationship Specialty Start Date End Date Linh Doty, DO 8 [facility] [address] [place] [address] PCP - General Family Medicine 11/04/22 Lizzie Alves PA-C [address] [place] [address], [facility] [address] [place] [address] Hospitalist Cardiology 05/27/23 Kaushik Mariscal MD 1401 [facility] [address] [place] [address] Wood Bucker Electrophysiology 11/18/23 documented as of this encounter
--- OUTSIDE RECORDS SUMMARY | 2024-09-16 08:59 | XMS_ITS | Encounter Summary ---
Author Organization [employer] ([place], [place], [place], [place]) Address [address] [place] [address] Care Team Providers Care Advanced Registered Nurse Name Role Phone Lalitha Linhkarthikeyan Mazariegos DO Primary Care Provider [phone] Lizzie Alves PA-C Unavailable [phone] Kaushik Mariscal MD Unavailable Encounter Details Date Type Department Care Team (Late st Contact Info) Description 07/02/2021 Transcribed Document [facility] Family Medicine [address] [place] [address] ProviderChad MD [address] [place] [address] Social History Tobacco Use Types Packs/Day [...] 07/02/2021 12:37 EDT Electronically signed by Rekha [facility] Conversion Milk Pasteurizer Cerner at 05/27/2022 9:27 PM CDT documented in this encounter Plan of Treatment Not on file documented as of this encounter Visit Diagnoses Not on filedocumented in this encounter Care Teams Advanced Registered Nurse Relationship Specialty Start Date End Date Linh Doty, 8 [facility] [address] [place] [address] PCP - General Family Medicine 11/04/22 Lizzie Alves PA-C [address] [place] [address], [facility] [address] [place] [address] Hospitalist Cardiology 05/27/23 Kaushik Mariscal MD 1401 [facility] [address] [place] [address] Retail Client Manager Electrophysiology 11/18/23 documented as of this encounter
--- OUTSIDE RECORDS SUMMARY | 2024-09-16 08:59 | XMS_ITS | Encounter Summary ---
Author Organization [employer] ([place], [place], [place], [place]) Address [address] [address] Care Team Providers Care Logistician Name Role Phone Lalitha Linhkarthikeyan Mazariegos DO Primary Care Provider [phone] Lizzie Alves PA-C Unavailable [phone] Kaushik Mariscal MD Unavailable Encounter Details Date Type Department Care Team (Late st Contact Info) Description 07/02/2021 Transcribed Document [facility] Family Medicine [facility] [place] [address] ProviderChad MD [address] [place] [address] Social History Tobacco Use Types Packs/Day [...] 07/02/2021 15:57 EDT Electronically signed by Rekha [facility] Conversion Sweet Dough Mixer Cerner at 05/27/2022 9:12 PM CDT documented in this encounter Plan of Treatment Not on file documented as of this encounter Visit Diagnoses Not on filedocumented in this encounter Care Teams Logistician Relationship Specialty Start Date End Date Linh Doty, DO 8 [facility] [address] [place] [address] PCP - General Family Medicine 11/04/22 Lizzie Alves PA-C [address] [place] [address], [facility] [address] [place] [address] Hospitalist Cardiology 05/27/23 Kaushik Mariscal MD 1401 [facility] [address] [place], [place] [address] Ambulance Paramedic Electrophysiology 11/18/23 documented as of this encounter
--- OUTSIDE RECORDS SUMMARY | 2024-09-16 08:59 | XMS_ITS | Encounter Summary ---
Author Organization [employer] ([place], [place], [place], [place]) Address [address] [place] [address] Care Team Providers Care Heel Seater Name Role Phone Lalitha Linhkarthikeyan Mazariegos DO Primary Care Provider [phone] Lizzie Alves PA-C Unavailable [phone] Kaushik Mariscal MD Unavailable Encounter Details Date Type Department Care Team (Late st Contact Info) Description 07/16/2021 Transcribed Document [facility] Family [facility] [address] [place] [address] ProviderChad MD [address] [place] [address] Social History Tobacco Use Types Packs/Day Years Used Date Smoking Tobacco: Never Assessed Family and Community Support Answer Geremias e Recorded Help with Day to Day Activities Not on file 02/27/2023 Feeling Lonely or Isolated Not on file 02/27 Educational Attainment Answer Date Mendez rded Speak language other than Persian at home Not on file 02/27/2023 Want [...] Pacemaker places [address] Mariscal, cigarette paper tester. 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 States 02 run between 88-93. Hx of COPD. Denies SOB/chest pain Triage Date/Time : 07/16/2021 12:06 EDT TYREE CERNA RN - 07/16/2021 12:06 EDT DCP GENERIC CODE Tracking Acuity : 2 - Emergent Tracking Group : [facility] ED TYREE CERNA RN - [...] Onset Date: Unspecified ; Created By: Contributor_system, [employer]; Reaction Status: Active ; Category: Drug ; Substance: No Known Allergies ; Type: Allergy ; Updated By: Contributor_system HIST_[email or web address]; Reviewed Date: 10/26/2017 9:51 EDT Diagnosis Control ED (As Of: 07/16/2021 12:12:20 EDT) Problems(Active) Arteriosclerosis (SNOMED CT :405474766 ) Name of Problem: Arteriosclerosis ; Recorder: ELAINE CHOI RN; Confirmation: Confirmed ; Classification: Patient Stated ; Code: 891640027 ; Contributor System: [employer] ; Last Updated: 11/23/2018 8:01 EDT ; Life Cycle Date: 11/23/2018 ; Life Cycle Status: Active ; Vocabulary: SNOMED CT At risk for sleep apnea (IMO :77412659 ) Name of Problem: At risk for sleep apnea ; Recorder: SYSTEM, SYSTEM; Confirmation: Confirmed ; Classification: Medical ; Code: 94214143 ; Last Updated: 07/01/2021 13:02 EDT ; Life Cycle Date: 07/01/2021 ; Life Cycle Status: Active ; Vocabulary: IMO Cardiomyopathy (SNOMED CT :621944574 ) Name of Problem: Cardiomyopathy ; Recorder: Rere Ramos RN; Confirmation: Confirmed ; Classification: Patient Stated ; Code: 642432292 ; Contributor System: [employer] ; Last Updated: 07/01/2021 12:56 EDT ; Life Cycle Date: 07/01/2021 ; Life Cycle Status: Active ; Vocabulary: SNOMED CT Chronic CHF (SNOMED CT :202693739 ) Name of Problem: Chronic CHF ; Recorder: ELAINE CHOI RN; Confirmation: Confirmed ; Classification: Patient Stated ; Code: 710187477 ; Contributor System: [employer] ; Last Updated: 11/23/2018 8:00 EDT ; Life Cycle Date: 11/23/2018 ; Life Cycle Status: Active ; Vocabulary: SNOMED CT Current smoker (SNOMED CT :135562720 ) Name of Problem: Current smoker ; Recorder: ELAINE CHOI RN; Confirmation: Confirmed ; Classification: Patient Stated ; Code: 319846155 ; Contributor System: [employer] ; Last Updated: 11/23/2018 8:01 EDT ; Life Cycle Date: 11/23/2018 ; Life Cycle Status: Active ; Vocabulary: SNOMED CT Gout (SNOMED CT :201830248 ) Name of Problem: Gout ; Recorder: Rere Ramos RN; Confirmation: Confirmed ; Classification: Patient Stated ; Code: 202320713 ; Contributor System: [employer] ; Last Updated: 07/01/2021 12:57 EDT ; Life Cycle Date: 07/01/2021 ; Life Cycle Status: Active ; Vocabulary: SNOMED CT High cholesterol (SNOMED CT :94319688 ) Name of Problem: High cholesterol ; Recorder: Brandin Conroy RN; Confirmation: Confirmed ; Classification: Medical ; Code: 80529991 ; Contributor System: [employer] ; Last Updated: 06/07/2017 19:00 EDT ; Life Cycle Date: 06/07/2017 ; Life Cycle Status: Active ; Vocabulary: SNOMED CT History of DC (myocardial infarction) (SNOMED CT :8541583676 ) Name of Problem: History of DC (myocardial infarction) ; Recorder: Rere Ramos RN; Confirmation: Confirmed ; Classification: Patient Stated ; Code: 3294268490 ; Contributor System: [employer] ; Last Updated: 07/01/2021 12:56 EDT ; Life Cycle Date: 07/01/2021 ; Life Cycle Status: Active ; Vocabulary: SNOMED CT Intermittent claudication (SNOMED CT :300622633 ) Name of Problem: Intermittent claudication ; Recorder: ELAINE CHOI RN; Confirmation: Confirmed ; Classification: Patient Stated ; Code: 136924750 ; Contributor System: [employer] ; Last Updated: 11/23/2018 8:03 EDT ; Life Cycle Date: 11/23/2018 ; Life Cycle Status: Active ; Vocabulary: SNOMED CT Pacemaker (SNOMED CT :8611475209 ) Name of Problem: Pacemaker ; Recorder: Rere Ramos RN; Confirmation: Confirmed ; Classification: Patient Stated ; Code: 1336900859 ; Contributor System: [employer] ; Last Updated: 07/01/2021 12:57 EDT ; Life Cycle Date: 07/01/2021 ; Life Cycle Status: Active ; Vocabulary: SNOMED CT PAD (peripheral artery disease) (SNOMED CT :2794155051 ) Name of Problem: PAD (peripheral artery disease) ; Recorder: ELAINE CHOI RN; Confirmation: Confirmed ; Classification: Patient Stated ; Code: 7894702984 ; Contributor System: [employer] ; Last Updated: 11/23/2018 8:00 EDT ; Life Cycle Date: 11/23/2018 ; Life Cycle Status: Active ; Vocabulary: SNOMED CT Stented coronary artery (SNOMED CT :8517472706 ) Name of Problem: Stented coronary artery ; Recorder: Rere Ramos RN; Confirmation: Confirmed ; Classification: Patient Stated ; Code: 6340083163 ; Contributor System: [employer] ; Last Updated: 07/01/2021 12:57 EDT ; Life Cycle Date: 07/01/2021 ; Life Cycle Status: Active ; Vocabulary: SNOMED CT Diagnoses(Active) Cardiac device problem Date: 07/16/2021 ; Diagnosis Type: Reason For Visit ; Confirmation: Complaint of ; Clinical Dx: Cardiac device problem ; Classification: Medical ; Clinical Service: Emergency medicine ; Code: PNED ; Probability: 0 ; Diagnosis Code: [id number] ED Height and Weight Height Source : Stated Height Entry Format : [place] Height, Feet : 5 ft(Converted to: 152 cm, 60 Inch) Height, Inches : 6 Inch(Converted to: 0 ft 6 Inch, 15.24 cm) Clinical Height : 167.64 cm Weight Source, ED : Critical estimated dosing weight Weight Entry Format : [place] Weight, Pounds : 136 lb Clinical Dosing Weight : 61.82 kg Body Surface Area (BSA) : 1.7 m2 Body Mass Index : 22 kg/m2 Gantt Body Weight (IBW) : 58.88 kg TYREE CERNA RN - 07/16/2021 12:06 EDT Electronically signed by Reyna Da Silva Conversion Mechanical Assembly Technician Cerner at 05/27/2022 9:09 PM CDT documented in this encounter Plan of Treatment Not on file documented as of this encounter Visit Diagnoses Not on filedocumented in this encounter Care Teams Heel Seater Relationship Specialty Start Date End Date Linh Doty, 8 [facility] [address] [place] [address] PCP - General Family Medicine 11/04/22 Lizzie Alves PA-C [address] [place] [address], [facility] [address] [place] [address] Hospitalist Cardiology 05/27/23 Kaushik Mariscal MD 1401 [facility] [address] [place] [address] Teacher Kindergarten Electrophysiology 11/18/23 documented as of this encounter
--- OUTSIDE RECORDS SUMMARY | 2024-09-16 08:59 | XMS_ITS | Encounter Summary ---
Author Organization [employer] ([place], [place], [place], [place]) Address [address] [place] [address] Care Team Providers Care Centrifugal Drier Operator Name Role Phone Linh Doty DO Primary Care Provider [phone] Lizzie Alves PA-C Unavailable [phone] Kaushik Mariscal MD Unavailable Reason for Visit * Reason Comments Medication Refill Encounter Details Date Type Department Care Team (Late st Contact Info) Description 05/25/[address] [facility] Cardiology [address] [place] [address] Lenka Benavidez MD 1401 [facility] [address] [place] [address] Personal history of other diseases of the circulatory system; Atherosclerotic heart disease of [place] coronary artery without angina pectoris Social History [...] Date Mendez rded Speak language other than Stateless at home Not on file 02/27/2023 Want [...] the circulatory system Atherosclerotic heart disease of [place] coronary artery without angina pectoris documented in this encounter Care Teams Centrifugal Drier Operator Relationship Specialty Start Date End Date Linh Doty, 8 [facility] [address] [place] [address] PCP - General Family Medicine 11/04/22 Lizzie Alves PA-C [address] [place] [address], [facility] [address] [place] [address] Hospitalist Cardiology 05/27/23 Kaushik Mariscal MD [address] [facility] [address] [place] [address] Fish Bait Processing Supervisor Electrophysiology 11/18/23 documented as of this encounter
--- OUTSIDE RECORDS SUMMARY | 2024-09-16 08:59 | XMS_ITS | Encounter Summary ---
Author Organization [employer] ([place], [place], [place], [place]) Address [address] [place] [address] Care Team Providers Care Equine Manager Name Role Phone Lalitha Linhkarthikeyan Mazariegos DO Primary Care Provider [phone] Lizzie Alves PA-C Unavailable [phone] Kaushik Mariscal MD Unavailable Encounter Details Date Type Department Care Team (Late st Contact Info) Description 07/16/2021 Transcribed Document [facility] [place] [address] [place] [address] ProviderChad MD [address] [place] [address] Social History Tobacco Use Types Packs/Day Years Used Date Smoking Tobacco: Never Assessed Family and Community Support Answer Geremias e Recorded Help with Day to Day Activities Not on file 02/27/2023 Feeling Lonely or Isolated Not on file 02/27 Educational Attainment Answer Date Mendez rded Speak language other than Kitt[place] at home Not on file 02/27/2023 Want [...] 07/23/2021 18:55 EDT Electronically signed by Rekha [facility] Conversion Surgical Pathologist Cerner at 05/30/2022 9:20 AM CDT documented in this encounter Plan of Treatment Not on file documented as of this encounter Visit Diagnoses Not on filedocumented in this encounter Care Teams Equine Manager Relationship Specialty Start Date End Date Linh Doty, DO 8 [facility] [address] [place] [address] PCP - General Family Medicine 11/04/22 Lizzie Alves PA-C [address] [place] [address], [facility] [address] [place] [address] Hospitalist Cardiology 05/27/23 Kaushik Mariscal MD 1401 [facility] [address] [place] [address] Health Plan Advisor Electrophysiology 11/18/23 documented as of this encounter
--- OUTSIDE RECORDS SUMMARY | 2024-09-16 08:59 | XMS_ITS | Encounter Summary ---
Author Organization [employer] ([place], [place], [place], [place]) Address [address] [place] [address] Care Team Providers Care Hydro Plant Technician Name Role Phone Lalitha Linhkarthikeyan Mazariegos DO Primary Care Provider [phone] Lizzie Alves PA-C Unavailable [phone] Dion Mariscal MD Unavailable Encounter Details Date Type Department Care Team (Late st Contact Info) Description 07/02/2021 Transcribed Document [facility] Family Medicine [address] [place] [address] ProviderChad MD [address] [place] [address] Social History Tobacco Use Types Packs/Day Years Used Date Smoking Tobacco: Never Assessed Family and Community Support Answer Geremias e Recorded Help with Day to Day Activities Not on file 02/27/2023 Feeling Lonely or Isolated Not on file 02/27 Educational Attainment Answer Date Mendez rded Speak language other than [place] Islander at home Not on file 02/27/2023 [...] DION MARISCAL MD-REJI No qualifying data available [facility] Cardiology Discharge Note - EP Primary Human Relations Teacher: Pedro Bustamante NP PCP: Linh Doty Consults: [...] Normal range of motion. Integumentary: Warm, Dry, [place]. Pacemaker site stable, dressing CDI, no hematoma or bleeding at site. Neurologic: Alert, Oriented. Psychiatric: Cooperative, Appropriate mood & affect. Telemetry: SR 76 Procedures this admission: Conclusion: Successful Procedure(s) of: 1. SINGLE CHAMBER SYSTEM REPLACEMENT - [facility] Discharge Diagnoses: 1. Successful generator change [...] BEDTIME 14. Vitamin D (Ergocalciferol) 1.25 MG (84533 UT) Oral Capsule; TAKE ONE CAPSULE BY MOUTH ONCE A WEEK Allergies (1) Active Reaction NKDA Disposition: Patient sent home in stable condition with family support. Discharge Instructions: Cardiac Diet. Post Pacemaker instructions Activity as tolerated. Smoking cessation and risk factor modification addressed. Followup Appointments: PCP in 5 - 7 days. Primary Human Relations Teacher in [address] Mariscal in 1 week wound/device check Patient has been instructed on and verbalized an understanding of the above discharge instructions. Plan has been discussed and is in agreement with Dr. Davey Katz, RN documenting for Dr. Mariscal Electronically signed by [facility] Conversion Fitter Placer Cerner at 05/27/2022 9:21 PM CDT documented in this encounter Plan of Treatment Not on file documented as of this encounter Visit Diagnoses Not on filedocumented in this encounter Care Teams Hydro Plant Technician Relationship Specialty Start Date End Date Linh Doty, 8 [facility] [address] [place] [address] PCP - General Family Medicine 11/04/22 Lizzie Alves PA-C [address] [place] [address] Hospitalist Cardiology 05/27/23 Dion Mariscal MD 1401 [facility] [place] [address] Human Relations Teacher Electrophysiology 11/18/23 documented as of this encounter
--- OUTSIDE RECORDS SUMMARY | 2024-09-16 08:59 | XMS_ITS | Encounter Summary ---
Author Organization [employer] ([place], [place], [place], [place]) Address [address] [place] [address] Care Team Providers Care Geospatial Technician Name Role Phone Lalitha Linhkarthikeyan Mazariegos DO Primary Care Provider [phone] Lizzie Alves PA-C Unavailable [phone] Kaushik Mariscal MD Unavailable Encounter Details Date Type Department Care Team (Late st Contact Info) Description 07/16/2021 Transcribed Document [facility] [place] [address] [place] [address] ProviderChad MD [address] [place] [address] Social History Tobacco Use Types Packs/Day [...] 07/16/2021 12:47 PM CDT Patient: [facility]: [id number] Age: 55 years Sex: Female : 1965 Associated Diagnoses: Pacemaker pocket hematoma Author: FENG MODI MD-EMR Basic Information Additional information: Chief Complaint from Nursing Triage Note : Chief Complaint 07/16/2021 12:06 EDT Chief Complaint Pt states she has a blood pocket surrounding her pacemaker. Was brought over by EP lab. Pacemaker places [address] Mariscal, user experience developer. 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 States 02 run between [...] 50 mcg inhalation powder: 1 Puff, Inhalation, [id number], rinse mouth and throat after use, 30 [...] Assessment: ED C-SSRS: ED Clinical Reconciliation: ED black and white printer operator: Peripheral IV Insertion: Completed .Automated Differential: Aerosol [...] % 33.7 % Lymph # 2.49 x10(3)/uL [place] % 7.7 % [place] # 0.57 K/uL Eos % 1.1 % Eos # 0.08 x10(3)/uL Baso % 1.5 % Baso # 0.11 x10(3)/uL Slide Review No IG# 0.02 x10(3)/uL IG% 0.30 % PT 11.1 Second(s) INR 1.0 Procalcitonin <0.25 ng/mL . Radiology results: Radiology Results (Last 48 hours) [id number] -- 07/16/2021 12:00 CR Chest 1 Vw [...] REYNALDO CURIEL MD-INT. Electronically signed by Rekha [facility] Conversion Head Butler Cerner at 05/27/2022 8:59 PM CDT documented in this encounter Plan of Treatment Not on file documented as of this encounter Visit Diagnoses Not on filedocumented in this encounter Care Teams Geospatial Technician Relationship Specialty Start Date End Date Linh Doty, [address] [place] [address] PCP - General Family Medicine 11/04/22 Lizzie Alves PA-C [address] [place] [address], [facility] [address] [place] [address] Hospitalist Cardiology 05/27/23 Kaushik Mariscal MD [address] [place] [address] [place] [address] Core Maker Electrophysiology 11/18/23 documented as of this encounter
--- OUTSIDE RECORDS SUMMARY | 2024-09-16 08:59 | XMS_ITS | Encounter Summary ---
Author Organization [employer] ([place], [place], [place], [place]) Address [address] [place] [address] Care Team Providers Care Corn Detasseler Machine Operator Name Role Phone Lalitha Linhkarthikeyan Mazariegos DO Primary Care Provider Lizzie Alves PA-C Unavailable [phone] Kaushik Mariscal MD Unavailable Encounter Details Date Type Department Care Team (Late st Contact Info) Description 07/16/2021 Transcribed Document [facility] Radiology [address] [id number] Yanick Torres MD [address] [place] [address] [place] [address] Social History Tobacco Use Types Packs/Day Years [...] - 07/16/2021 3:30 PM EDT Patient: GAGAN MENDZOA Age: 55 years Sex: [...] 50 mcg inhalation powder: 1 Puff, Inhalation, [id number], rinse mouth and throat after use, 30 [...] 50 mcg inhalation powder 1 Puff, Inhalation, [id number] folic acid 1 mg oral tablet 1 [...] At risk for sleep apnea / IMO 65109937 / Confirmed High cholesterol / SNOMED CT 38565737 / Confirmed Canceled: At risk for sleep apnea / IMO 94448684 Canceled: COPD (chronic obstructive pulmonary disease) / SNOMED CT 99972723 Canceled: HTN (hypertension) / SNOMED CT 6360535667, Active Problems (12) Arteriosclerosis At risk for [...] gallop, S1+ S2 No S3 or S4 [place].. Gastrointestinal: Soft, Non-tender, Non-distended, Normal bowel sounds. [...] on filedocumented in this encounter Care Teams Corn Detasseler Machine Operator Relationship Specialty Start Date End Date Linh Doty DO 8 [facility] [address] [place] [address] PCP - General Family Medicine 11/04/22 Lizzie Alves PA-C [address] [place] [address], [facility] [address] [place] [address] Hospitalist Cardiology 05/27/23 Kaushik Mariscal MD [address] [facility] [address] [place] [address] Quill Machine Tender Electrophysiology 11/18/23 documented as of this encounter
--- OUTSIDE RECORDS SUMMARY | 2024-09-16 08:59 | XMS_ITS | Encounter Summary ---
Author Organization [employer] ([place], [place], [place], [place]) Address [address] [place] [address] Care Team Providers Care Route Manager Name Role Phone Lalitha Linhkarthikeyan Mazariegos DO Primary Care Provider [phone] Lizzie Alves PA-C Unavailable [phone] Dion Lin MD Unavailable Encounter Details Date Type Department Care Team (Late st Contact Info) Description 07/25/2021 Transcribed Document [facility] [place] [address] [place] [address] ProviderChad MD [address] [place] [address] Social History Tobacco Use Types [...] Date 07/25/21 Primary Care Provider LINH WILLIAM, [facility] Discharge Diagnosis AICD pocket hematoma 07/16/2021 [...] episode of bleeding. She was taken to union laborer and the ICD was removed. She tolerated [...] BID fluticasone 50 mcg/inh nasal spray 2 Ismay, PRN, Nasal, Daily folic acid 1 mg [...] Oral, Daily Rocephin 2 Gram, IV Piggyback, [id number] topiramate 25 mg oral tablet 25 mg [...] CR Chest 1 Vw Port; Jasbir Simon, Finishing Machine Operator 07/16/2021 13:03 EDT [2] Operative Report; ABBE HOLLEY MD-CAR 07/24/2021 14:30 EDT [3] ECHO REPORT - [facility]; CONTRIBUTOR_SYSTEM, [email or web address] 07/17/2021 08:04 EDT Electronically signed by [facility] Conversion Negative Restorer Cerner at 05/27/2022 9:02 PM CDT documented in this encounter Plan of Treatment Not on file documented as of this encounter Visit Diagnoses Not on filedocumented in this encounter Care Teams Route Manager Relationship Specialty Start Date End Date Linh William, DO [address] [place] [address] PCP - General Family Medicine 11/04/22 Lizzie Alves PA-C [address], [place] [address] [place] [address] Hospitalist Cardiology 05/27/23 Dion Lin MD [address] [facility] [place] [address] Tax Representative Electrophysiology 11/18/23 documented as of this encounter
--- OUTSIDE RECORDS SUMMARY | 2024-09-16 08:59 | XMS_ITS | Encounter Summary ---
Author Organization [employer] ([place], [place], [place], [place]) Address [address] [place] [address] Care Team Providers Care Acting Professor Name Role Phone Lalitha Linhkarthikeyan Mazariegos DO Primary Care Provider [phone] Lizzie Alves PA-C Unavailable [phone] Kaushik Mariscal MD Unavailable Encounter Details Date Type Department Care Team (Late st Contact Info) Description 07/25/2021 Transcribed Document [facility] [place] [address] [place] [address] ProviderChad MD [address] [place] [address] Social History Tobacco Use Types Packs/Day Years Used Date Smoking Tobacco: Never Assessed Family and Community Support Answer Geremias e Recorded Help with Day to Day Activities Not on file 02/27/2023 Feeling Lonely or Isolated Not on file 02/27 Educational Attainment Answer Date Mendez rded Speak language other than [place] Sudanese at home Not on file 02/27/2023 [...] Jessica Recinos Lpn - 07/25/2021 3:47 EDT Electronically signed by Rekha [facility] Conversion Risk Advisor Cerner at 05/27/2022 9:23 PM CDT documented in this encounter Plan of Treatment Not on file documented as of this encounter Visit Diagnoses Not on filedocumented in this encounter Care Teams Acting Professor Relationship Specialty Start Date End Date Linh Doty, [address] [facility] [address] [place] [address] PCP - General Family Medicine 11/04/22 Lizzie Alves PA-C [address] [facility], [facility] [address] [place] [address] Hospitalist Cardiology 05/27/23 Kaushik Mariscal MD [address] [facility] [address] [place] [address] Executive Advisor Electrophysiology 11/18/23 documented as of this encounter
--- OUTSIDE RECORDS SUMMARY | 2024-09-16 08:59 | XMS_ITS | Encounter Summary ---
Author Organization [employer] ([place], [place], [place], [place]) Address [address] [place] [address] Care Team Providers Care Finger Grip Machine Operator Name Role Phone Lalitha Linhkarthikeyan Mazariegos DO Primary Care Provider [phone] Lizzie Alves PA-C Unavailable [phone] Kaushik Mariscal MD Unavailable Encounter Details Date Type Department Care Team (Late st Contact Info) Description 07/29/2021 Transcribed Document [facility] [place] Medicine [address] [place] [address] ProviderChad MD [address] [place] [address] Social History Tobacco Use Types Packs/Day Years Used Date Smoking Tobacco: Never Assessed Family and Community Support Answer Geremias e Recorded Help with Day to Day Activities Not on file 02/27/2023 Feeling Lonely or Isolated Not on file 02/27 Educational Attainment Answer Date Mendez rded Speak language other than Beninese at home Not on file 02/27/2023 Want [...] On: 07/29/2021 15:50 EDT by Bonita Katz, Welding Machine Operator Gas Primary Insurance Authorization Authorization and Policy Numbers : Insurance 1 Health Plan: [employer] Policy Number: [id number] Authorization Number: Insurance Primary Name : [employer] Policy Number: [id number] Authorization Status-Primary : Admit approved Auth/Referral Contact Name-Primary : [place] Reference Number-Primary : [id number] Authorization Number-Primary : [id number] Number of Days Authorized-Primary : 5 Day(s) Authorized Service Begin Date-Primary : 07/16/2021 EDT Authorized Service End Date-Primary : 07/21/2021 EDT Authorization Comments-Primary : Discharge summary as well as continued stay clinical 07/23 - discharge faxed. Historical Authorization Comments-Primary : Comment 1: 07/20-07/22 CLINICALS FAXED VIA [employer] (Yessi Alaniz, RN 07/22/2021 16:49) Comment 2: [...] Jones, Rn-Utilization Review 07/17/2021 15:17) Bonita Katz, Welding Machine Operator Gas - 07/29/2021 15:50 EDT Electronically signed by Alberto Da Silva Conversion Information Technology Coordinator Kalia at 05/27/2022 9:01 PM CDT documented in this encounter Plan of Treatment Not on file documented as of this encounter Visit Diagnoses Not on filedocumented in this encounter Care Teams Finger Grip Machine Operator Relationship Specialty Start Date End Date Linh Doty, DO [address] [place] [address] PCP - General Family Medicine 11/04/22 Lizzie Alves PA-C [address] [place] [address], [facility] [address] [place] [address] Hospitalist Cardiology 05/27/23 Kaushik Mariscal MD [address] [facility] [address] [place] [address] Pasta Maker Electrophysiology 11/18/23 documented as of this encounter
--- OUTSIDE RECORDS SUMMARY | 2024-09-16 08:59 | XMS_ITS | Clinical Summary ---
Author Organization [employer] ([place], [place], [place], [place]) Address [address] [place] [address] Care Team Providers Care Testing Manager Name Role Phone Linh Doty DO Primary Care Provider [phone] Lizzie Alves PA-C Unavailable [phone] Kaushik Mariscal MD Unavailable Allergies No [...] 75 mg tabletIndications :Atherosclerotic heart disease of [place] coronary artery without angina pectoris TAKE ONE [...] Encounters Date Type Department Care Team Description 08/15/2024 5:00 AM EDT Clinical Support [facility] Electrophysiology [address] [place] [address] Kaushik Mariscal MD Encounter for adjustment or management of cardiac device (Primary Dx); Ischemic cardiomyopathy with implantable cardioverter-defibrill ator (ICD); Chronic combined systolic and diastolic congestive heart failure (HCC) 07/15/2024 5:00 AM EDT Clinical Support [facility] Electrophysiology [address] [place] [address] Louise Gottlieb MD Encounter for adjustment or management of cardiac device (Primary Dx); Ischemic cardiomyopathy with implantable cardioverter-defibrill ator (ICD); Chronic combined systolic and diastolic congestive heart failure (HCC) 07/11/2024 6:00 AM EDT Clinical Support [facility] Electrophysiology [address] [place] [address] Louise Gottlieb MD Encounter for adjustment [...] Tdap) 01/29/2031 Medical Devices Implanted Type Area Director Quality Assurance Device Identifier Shelf Expiration Date Model / Serial / Lot Icd-08/26/2021 Implanted:08/26 by Kaushik Mariscal MD (Quantity not on file) ICD [employer] 500Q / [id number] / Insurance [facility] ADV Care Teams Testing Manager Relationship Specialty Start Date End Date Linh Doty, [address] [facility] [address] [place] [address] PCP - General Family Medicine 11/04/22 Lizzie Alves PA-C [address] [facility], [facility] [address] [place] [address] Hospitalist Cardiology 05/27/23 Kaushik Mariscal MD [address] [facility] [address] [place] [address] Hydraulic And Plumbing Installer Electrophysiology 11/18/23
--- OUTSIDE RECORDS SUMMARY | 2024-09-16 08:59 | XMS_ITS | Encounter Summary ---
Author Organization [employer] ([place], [place], [place], [place]) Address [address] [place] [address] Care Team Providers Care Gas Roller Operator Name Role Phone Lalitha Linhkarthikeyan Mazariegos DO Primary Care Provider [phone] Lizzie Alves PA-C Unavailable [phone] Kaushik Mariscal MD Unavailable Encounter Details Date Type Department Care Team (Late st Contact Info) Description 07/25/2021 Transcribed Document [facility] [place] [address] [place] [address] ProviderChad MD [address] [place] [address] Social History Tobacco Use Types Packs/Day Years Used Date Smoking Tobacco: Never Assessed Family and Community Support Answer Geremias e Recorded Help with Day to Day Activities Not on file 02/27/2023 Feeling Lonely or Isolated Not on file 02/27 Educational Attainment Answer Date Mendez rded Speak language other than Syrian at home Not on file 02/27/2023 Want [...] Historical ProviderMD - 07/25/2021 2:00 AM CDT Online Merchandiser Details Entered On: 07/25/2021 0:58 EDT Performed [...] 07/25/2021 0:58 EDT Electronically signed by Rekha [facility] Conversion Forms Analysis Manager Cerner at 05/27/2022 9:09 PM CDT documented in this encounter Plan of Treatment Not on file documented as of this encounter Visit Diagnoses Not on filedocumented in this encounter Care Teams Gas Roller Operator Relationship Specialty Start Date End Date Linh Doty, [address] [facility] [address] [place] [address] PCP - General Family Medicine 11/04/22 Lizzie Alves PA-C 1401 [facility], [facility] [address] [place] [address] Hospitalist Cardiology 05/27/23 Kaushik Mariscal MD [address] [facility] [address] [place] [address] Terminal Worker Electrophysiology 11/18/23 documented as of this encounter
--- OUTSIDE RECORDS SUMMARY | 2024-09-16 08:59 | XMS_ITS | Encounter Summary ---
Author Organization [employer] ([place], [place], [place], [place]) Address [address] [place] [address] Care Team Providers Care Jewelry Sales Name Role Phone Lalitha Linhkarthikeyan Mazariegos DO Primary Care Provider [phone] Lizzie Alves PA-C Unavailable [phone] Kaushik Mariscal MD Unavailable Encounter Details Date Type Department Care Team (Late st Contact Info) Description 07/16/2021 Transcribed Document [facility] [place] Medicine [address] [place] [address] ProviderChad MD [address] [place] [address] Social History Tobacco Use Types Packs/Day [...] on filedocumented in this encounter Care Teams Jewelry Sales Relationship Specialty Start Date End Date Linh Doty, DO [address] [facility] [address] [place] [address] PCP - General Family Medicine 11/04/22 Lizzie Alves PA-C [address] [place] [address], [facility] [address] [place] [address] Hospitalist Cardiology 05/27/23 Kaushik Mariscal MD [address] [facility] [address] [place] [address] Watch Assembler Electrophysiology 11/18/23 documented as of this encounter
--- OUTSIDE RECORDS SUMMARY | 2024-09-16 08:59 | XMS_ITS | Encounter Summary ---
Author Organization [employer] ([place], [place], [place], [place]) Address [address] [place] [address] Care Team Providers Care Fruit Picker Machine Operator Name Role Phone Lalitha Linh Delilah DAVIS Primary Care Provider [phone] Lizzie Alves PA-C Unavailable [phone] Kaushik Mariscal MD Unavailable Encounter Details Date Type Department Care Team (Late st Contact Info) Description 07/16/2021 Transcribed Document [facility] [place] [address] [place] [address] ProviderChad MD [address] [place] [address] Social History Tobacco Use Types Packs/Day [...] on filedocumented in this encounter Care Teams Fruit Picker Machine Operator Relationship Specialty Start Date End Date Linh Doty, DO [address] [facility] [address] [place] [address] PCP - General Family Medicine 11/04/22 Lizzie Alves PA-C [address] [place] [address], [facility] [address] [place] [address] Hospitalist Cardiology 05/27/23 Kaushik Mariscal MD [address] [facility] [address] [place] [address] Immunology Specialist Electrophysiology 11/18/23 documented as of this encounter
--- OUTSIDE RECORDS SUMMARY | 2024-09-16 08:59 | XMS_ITS | Encounter Summary ---
Author Organization [employer] ([place], [place], [place], [place]) Address [address] [place] [address] Care Team Providers Care Operations Manager/Coordinator Name Role Phone Lalitha Linhkarthikeyan Mazariegos DO Primary Care Provider Lizzie Alves PA-C Unavailable [phone] Kaushik Mariscal MD Unavailable Encounter Details Date Type Department Care Team (Late st Contact Info) Description 07/16/2021 Transcribed Document [facility] [place] [address] [place] [address] ProviderChad MD [address] [place] [address] Social History Tobacco Use Types Packs/Day [...] Pacemaker places [address] 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 States 02 run between 88-93. Hx of COPD. Denies SOB/chest pain Information Obtained From : Patient, Spouse Primary Language : Faroese Preferred Communication Mode : Verbal Communication Barrier : None Strap Making Machine Operator Needed : No Anita Ko RN - [...] Scale Risk Level : 25-45 Medium Risk [place] Fall Interventions : Adequate lighting, Assistive devices [...] Source : Stated Height Entry Format : Garvin Height, Feet : 5 ft(Converted to: 152 cm, 60 Inch) Height, Inches : 6 Inch(Converted to: 0 ft 6 Inch, 15.24 cm) Clinical Height : 167.64 cm Weight Source : Bed scale Weight Entry Format : Garvin Clinical Dosing Weight : 61.82 kg Weight, Pounds : 136 lb Body Surface Area (BSA) : 1.7 m2 Body Mass Index : 22 kg/m2 [place] Body Weight : 59 kg Anita Ko [...] Anita Ko RN - 07/17/2021 19:15 EDT [place] Suicide Severity Rating Scale (C-SSRS) CSSRS Past [...] on filedocumented in this encounter Care Teams Operations Manager/Coordinator Relationship Specialty Start Date End Date Linh Doty DO [address] [place] [address] PCP - General Family Medicine 11/04/22 Lizzie Alves PA-C [address], [facility] [address] [place] [address] Hospitalist Cardiology 05/27/23 Kaushik Mariscal MD [address] [facility] [address] [place] [address] Customer Associate Electrophysiology 11/18/23 documented as of this encounter
--- OUTSIDE RECORDS SUMMARY | 2024-09-16 08:59 | XMS_ITS | Encounter Summary ---
Author Organization [employer] ([place], [place], [place], [place]) Address [address] [place] [address] Care Team Providers Care Biomass Power Plant Superintendent Name Role Phone Lalitha Linhkarthikeyan Mazariegos DO Primary Care Provider [phone] Lizzie Alves PA-C Unavailable [phone] Dion Lin MD Unavailable Encounter Details Date Type Department Care Team (Late st Contact Info) Description 07/25/2021 Transcribed Document [facility] [place] [address] [place] [address] ProviderChda MD [address] [place] [address] Social History Tobacco Use Types Packs/Day Years Used Date Smoking Tobacco: Never Assessed Family and Community Support Answer Geremias e Recorded Help with Day to Day Activities Not on file 02/27/2023 Feeling Lonely or Isolated Not on file 02/27 Educational Attainment Answer Date Mendez rded Speak language other than Upper Sorbian at home Not on file 02/27/2023 Want [...] Historical ProviderMD - 07/25/2021 2:36 PM CDT [facility] [place] [address] REJI LENA Begum :1965 Visit Time:07/16/2021 [...] you Where: [address] [facility] [address] [place] [address]- Business (1) Follow Up with LINH WILLIAM DO-FAM When 08/01/2021 02:00 PM EDT Comments Primary care appointment has been made Bring discharge instructions with you Where: [address] [place] [address]- Follow Up with HANANE WILSON MD-INF When 07/31/2021 02:30 PM EDT Comments Infectious disease appointment has been made Bring discharge instructions with you Where: [address] [facility] [address] [place] [address]- Follow Up with ABBE HOLLEY When 07/30/2021 10:15 AM EDT Comments Cardiology appointment has been made Bring discharge instructions with you Where: [address] [place] [address]- [phone] Business (1) Medications What How Much When Instructions Next Dose cefdinir (cefdinir 300 mg oral capsule) 1 Capsule(s) Oral Every 12 hours Duration: 7 Day(s) Pickup at [facility] doxycycline (doxycycline hyclate 100 mg oral capsule) 1 Capsule(s) Oral Two Times A Day Duration: 21 Day(s) Pickup at [facility] nicotine (nicotine 21 mg/ 24 hr transdermal film, extended release) 1 Patch(es) TransDermal Every Day Duration: 14 Day(s) Pickup at [facility] tomorrow saccharomyces boulardii lyo (Florastor 250 mg oral capsule) 1 Capsule(s) Oral Two Times A Day This medication is available onxu-how-bksbsbn. tonight acetaminophen-hydrocodone (acetaminophen-HYDROcodone 325 mg-5 mg oral [...] (fluticasone 50 mcg/ inh nasal spray) 2 Torrington(s) Nasal Every Day as needed for Nasal [...] Tablet(s) Oral At Bedtime bedtime Pharmacy Information [facility] [place]: [address] [place], [place] [id number] [phone] Take your medications faithfully. Do NOT skip [...] white, wheat or rye breads, plain breadsticks, swiss muffins, hamburger buns, plain bagels, plain cake doughnuts, tru breads, baked flours or corn tortillas, crackers including gerber, animal, saltine, oyster and matzo, snacks including unsalted pretzels, popcorn, baked tortilla chips or potato chips. Homemade breads (biscuits, muffins, cornbread, rolls, pancakes and marshallese toast) should be made with oils low [...] choose prepared products such as muffins, frozen marshallese toast and waffles, biscuits, croissants and other [...] 5 large olives is considered a serving. --[place] oil and peanut oil are higher in [...] diet, please call the registered dietitians at [facility] at or . We will [...] sugar-free varieties to be more thirst quenching. --Central your teeth. --Chill mouthwash and gargle for [...] at home: Medicines ??? Take or apply efyq-qbz-evrpslj and prescription medicines only as told by [...] cannot use soap and water, use hand greens cutter. ? Change your bandage as told by [...] provider. Document Revised: 09/07/2018 Document Reviewed: 09/07/2018 [employer] Patient Education ?? 202 [employer] Hematoma A hematoma is a collection [...] by your doctor. General instructions ??? Take ypwh-bqo-tnneifq and prescription medicines only as told by [...] provider. Document Revised: 07/01/2018 Document Reviewed: 07/01/2018 [employer] Patient Education ?? 2020 [employer] Steps to Quit Smoking Smoking tobacco [...] a prescription and some you can purchase ozuy-kri-ythlwbk. Medicines may have nicotine in them to [...] for support and encouragement. Call telephone quitlines (0-772-YRRO-NOW), reach out to support groups, or work [...] provider. Document Revised: 10/21/2019 Document Reviewed: 04/16/2019 [employer] Patient Education ?? 2020 [employer] Steps to Quit Smoking Smoking tobacco [...] a prescription, and some you can buy bdtj-qsm-wjdjkrn. Some medicines may contain a drug called [...] encourage you. ??? Call a phone quitline (4-951-CXVWNOW), reach out to support groups, or work [...] provider. Document Revised: 10/21/2019 Document Reviewed: 04/16/2019 [employer] Patient Education ?? 2020 [employer]. Antibiotic Medicine, Adult Antibiotic medicines treat infections [...] Follow these instructions at home: ??? Take xhmo-qmq-wjhsbuj and prescription medicines as told by your [...] provider. Document Revised: 11/15/2019 Document Reviewed: 11/15/2019 [employer] Patient Education ?? 202 [employer] Infection [...] Supplies needed: ??? Soap. ??? Alcohol-based hand greens cutter. ??? Standard cleaning products. ??? Disinfectants, such [...] water are not available, use alcohol-based hand greens cutter. ??? Avoid touching your face, mouth, nose, [...] water. Air-dry your dishes or use a hedis nurse. ??? Do not share dishes or eating [...] certain germs and not others. Read the churn driller's instructions or read online resources to determine [...] minutes after each use, or according to churn driller's instructions. ??? Wash reusable cleaning cloths and [...] water are not available, use alcohol-based hand greens cutter. In general: ??? Stay home except to [...] for Professionals in Infection Control and Epidemiology: professionals.site.apic.org/xkhrlyva-ir-sfrx/vyh-zmgrhgxljz-eqijrtt/home/ Summary ??? It is important to know [...] provider. Document Revised: 04/02/2020 Document Reviewed: 04/22/2019 [employer] Patient Education ?? 2020 [employer] doxycycline (oral/injection) (DOX romain gallo) Acticlate, [...] teeth in children Electronically signed by Rekha [facility] Conversion Station Tender Cerner at 05/27/2022 9:26 PM CDT documented in this encounter Plan of Treatment Not on file documented as of this encounter Visit Diagnoses Not on filedocumented in this encounter Care Teams Biomass Power Plant Superintendent Relationship Specialty Start Date End Date Linh William, DO [address] [facility] [address] [place] [address] PCP - General Family Medicine 11/04/22 Lizzie Alevs PA-C [address] [place] [address], [facility] [address] [place] [address] Hospitalist Cardiology 05/27/23 Dion Lin MD [address] [facility] [address] [place] [address] Business Liaison Manager Electrophysiology 11/18/23 documented as of this encounter
--- OUTSIDE RECORDS SUMMARY | 2024-09-16 09:00 | XMS_ITS | Encounter Summary ---
Author Organization [employer] ([place], [place], [place], [place]) Address [address] [place] [address] Care Team Providers Care Microelectronics Engineer Name Role Phone Llaitha Linh Delilah DAVIS Primary Care Provider [phone] Lizzie Alves PA-C Unavailable [phone] Kaushik Mariscal MD Unavailable Encounter Details Date Type Department Care Team (Late st Contact Info) Description 07/23/2021 Transcribed Document [facility] [place] [address] [place] [address] ProviderChad MD [address] [place] [address] Social History Tobacco Use Types Packs/Day Years Used Date Smoking Tobacco: Never Assessed Family and Community Support Answer Geremias e Recorded Help with Day to Day Activities Not on file 02/27/2023 Feeling Lonely or Isolated Not on file 02/27 Educational Attainment Answer Date Mendez rded Speak language other than British at home Not on file 02/27/2023 Want [...] 07/23/2021 4:57 EDT Electronically signed by Rekha [facility] Conversion Doughnut Maker Cerner at 05/27/2022 9:00 PM CDT documented in this encounter Plan of Treatment Not on file documented as of this encounter Visit Diagnoses Not on filedocumented in this encounter Care Teams Microelectronics Engineer Relationship Specialty Start Date End Date Linh Doty, 8 [facility] [address] [place] [address] PCP - General Family Medicine 11/04/22 Lizzie Alves PA-C [address] [facility], [facility] [address] [place] [address] Hospitalist Cardiology 05/27/23 Kaushik Mariscal MD [address] [facility] [address] [place] [address] Artist Agent Electrophysiology 11/18/23 documented as of this encounter
--- OUTSIDE RECORDS SUMMARY | 2024-09-16 09:00 | XMS_ITS | Encounter Summary ---
Author Organization [employer] ([place], [place], [place], [place]) Address [address] [place] [address] Care Team Providers Care Entry Level Manager Name Role Phone Lalitha Linhkarthikeyan Mazariegos DO Primary Care Provider [phone] Lizzie Alves PA-C Unavailable [phone] Kaushik Mariscal MD Unavailable Encounter Details Date Type Department Care Team (Late st Contact Info) Description 07/02/2021 Transcribed Document [facility] Family Medicine [address] [place] [address] ProviderChad MD [address] [place] [address] Social History Tobacco Use Types Packs/Day [...] Policy Numbers : Insurance 1 Health Plan: [employer] MANAGED MEDICARE Policy Number: [id number] Authorization Number: [id number] Insurance Primary Name : Health Plan: [employer] MANAGED MEDICARE Policy Number: [id number] Authorized Service Begin Date-Primary : 07/01/2021 EDT Historical Authorization Comments-Primary : No Authorization Comments Found Khushi Jones Rn-Utilization Review - 07/02/2021 11:31 EDT documented in this encounter Plan of Treatment Not on file documented as of this encounter Visit Diagnoses Not on filedocumented in this encounter Care Teams Entry Level Manager Relationship Specialty Start Date End Date Linh Doty, 8 [facility] [address] [place] [address] PCP - General Family Medicine 11/04/22 Lizzie Alves PA-C [address] [place] [address] [address] [place] [address] Hospitalist Cardiology 05/27/23 Kaushik Mariscal MD [address] [facility] [address] [place] [address] Safety Advisor Electrophysiology 11/18/23 documented as of this encounter
--- OUTSIDE RECORDS SUMMARY | 2024-09-16 09:00 | XMS_ITS | Encounter Summary ---
Author Organization [employer] ([place], [place], [place], [place]) Address [address] [place] [address] Care Team Providers Care Grinding Wheel Inspector Name Role Phone Lalitha Linhkarthikeyan Mazariegos DO Primary Care Provider [phone] Lizzie Alves PA-C Unavailable [phone] Kaushik Mariscal MD Unavailable Encounter Details Date Type Department Care Team (Late st Contact Info) Description 07/22/2021 Transcribed Document [facility] [place] [address] [place] [address] ProviderChad MD [address] [place] [address] Social History Tobacco Use Types Packs/Day [...] Electronically signed by Alberto Da Silva Conversion Plastic Extrusion Operator Cerner at 05/27/2022 9:15 PM CDT documented in this encounter Plan of Treatment Not on file documented as of this encounter Visit Diagnoses Not on filedocumented in this encounter Care Teams Grinding Wheel Inspector Relationship Specialty Start Date End Date Linh Doty, 8 [facility] [address] [place] [address] PCP - General Family Medicine 11/04/22 Lizzie Alves PA-C [address] [facility], [facility] [address] [place] [address] Hospitalist Cardiology 05/27/23 Kaushik Mariscal MD [address] [facility] [address] [place] [address] Sheet Writer Electrophysiology 11/18/23 documented as of this encounter
--- OUTSIDE RECORDS SUMMARY | 2024-09-16 09:00 | XMS_ITS | Encounter Summary ---
Author Organization [employer] ([place], [place], [place], [place]) Address [address] [place] [address] Care Team Providers Care Vp Lab Name Role Phone Lalitha Linhkarthikeyan Mazariegos DO Primary Care Provider [phone] Lizzie Alves PA-C Unavailable [phone] Kaushik Mariscal MD Unavailable Encounter Details Date Type Department Care Team (Late st Contact Info) Description 07/25/2021 Transcribed Document [facility] [place] [address] [place] [address] ProviderChad MD [address] [place] [address] Social History Tobacco Use Types [...] On: 07/25/2021 11:59 EDT by Ronaldo Mccollum, SUPERINTENDENT SERVICE-PHARMACY Meds to Bed Enrollment Patient Enrollment Decision: : Yes/enroll in meds to bed program Ronaldo Mccollum, SUPERINTENDENT SERVICE-PHARMACY - 07/25/2021 11:59 EDT Electronically signed by Alberto Da Silva Conversion Excavator Backhoe Operator Cerner at 05/27/2022 8:59 PM CDT documented in this encounter Plan of Treatment Not on file documented as of this encounter Visit Diagnoses Not on filedocumented in this encounter Care Teams Vp Lab Relationship Specialty Start Date End Date Linh Doty, 8 [facility] [address] [place] [address] PCP - General Family Medicine 11/04/22 Lizzie Alves PA-C [address] [place] [address], [facility] [address] [place] [address] Hospitalist Cardiology 05/27/23 Kaushik Mariscal MD [address] [facility] [address] [place] [address] Lead Housekeeper Electrophysiology 11/18/23 documented as of this encounter
--- OUTSIDE RECORDS SUMMARY | 2024-09-16 09:00 | XMS_ITS | Encounter Summary ---
Author Organization [employer] ([place], [place], [place], [place]) Address [address] [place] [address] Care Team Providers Care Analytical Chemist Name Role Phone Lalitha Linhkarthikeyan Mazariegos DO Primary Care Provider [phone] Lizzie Alves PA-C Unavailable [phone] Kaushik Mariscal MD Unavailable Encounter Details Date Type Department Care Team (Late st Contact Info) Description 07/21/2021 Transcribed Document [facility] Family Medicine [address] [place] [address] ProviderChad MD [address] [place] [address] Social History Tobacco Use Types Packs/Day Years Used Date Smoking Tobacco: Never Assessed Family and Community Support Answer Geremias e Recorded Help with Day to Day Activities Not on file 02/27/2023 Feeling Lonely or Isolated Not on file 02/27 Educational Attainment Answer Date Mendez rded Speak language other than Argentine at home Not on file 02/27/2023 Want [...] Historical ProviderMD - 07/21/2021 2:00 AM CDT Educational Program Assistant Details Entered On: 07/21/2021 1:14 EDT Performed On: 07/21/2021 2:00 EDT by ELDER WILSON RN Order Details Patient Needs Meds Crushed/Liquid : No ELDER WILSON RN - 07/21/2021 1:14 EDT Electronically signed by Rekha [facility] Conversion Spray Unit Feeder Cerner at 05/27/2022 9:04 PM CDT documented in this encounter Plan of Treatment Not on file documented as of this encounter Visit Diagnoses Not on filedocumented in this encounter Care Teams Analytical Chemist Relationship Specialty Start Date End Date Linh Doty, 8 [facility] [address] [place] [address] PCP - General Family Medicine 11/04/22 Lizzie Alves PA-C 1401 [facility], [facility] [address] [place] [address] Hospitalist Cardiology 05/27/23 Kaushik Mariscal MD [address] [facility] [address] [place] [address] Billet Bed Operator Electrophysiology 11/18/23 documented as of this encounter
--- OUTSIDE RECORDS SUMMARY | 2024-09-16 09:00 | XMS_ITS | Encounter Summary ---
Author Organization [employer] ([place], [place], [place], [place]) Address [address] [place] [address] Care Team Providers Care Real Estate Consultant Name Role Phone Lalitha Linhkarthikeyan Mazariegos DO Primary Care Provider [phone] Lizzie Alves PA-C Unavailable [phone] Kaushik Mariscal MD Unavailable Encounter Details Date Type Department Care Team (Late st Contact Info) Description 07/25/2021 Transcribed Document [facility] Family Medicine [address] [place] [address] ProviderChad MD [address] [place] [address] Social History Tobacco Use Types [...] On: 07/25/2021 17:30 EDT by Caryl Estrada RN-CAPPTURE Discharge Documentation Discharge Date/Time : 07/25/2021 17:30 [...] activity and follow up appointment Caryl Estrada RN-CAPPTURE - 07/25/2021 16:08 EDT Electronically signed by Rekha [facility] Conversion Sub Assembly Team Worker Cerner at 05/27/2022 9:01 PM CDT documented in this encounter Plan of Treatment Not on file documented as of this encounter Visit Diagnoses Not on filedocumented in this encounter Care Teams Real Estate Consultant Relationship Specialty Start Date End Date Linh Doty, DO 8 [facility] [address] [place] [address] PCP - General Family Medicine 11/04/22 Lizzie Alves PA-C [address] [facility], [facility] [address] [place] [address] Hospitalist Cardiology 05/27/23 Kaushik Mariscal MD [address] [facility] [address] [place], [place] [id number] Jewelry Drilling Machine Operator Electrophysiology 11/18/23 documented as of this encounter
--- OUTSIDE RECORDS SUMMARY | 2024-09-16 09:00 | XMS_ITS | Encounter Summary ---
Author Organization [employer] ([place], [place], [place], [place]) Address [address] [place] [address] Care Team Providers Care Hedis Specialist Name Role Phone Lalitha Linh Delilah DAVIS Primary Care Provider [phone] Lizzie Alves PA-C Unavailable [phone] Kaushik Mariscal MD Unavailable Encounter Details Date Type Department Care Team (Late st Contact Info) Description 07/19/2021 Transcribed Document [facility] [place] [address] [place] [address] ProviderChad MD [address] [place] [address] Social History Tobacco Use Types Packs/Day Years Used Date Smoking Tobacco: Never Assessed Family and Community Support Answer Geremias e Recorded Help with Day to Day Activities Not on file 02/27/2023 Feeling Lonely or Isolated Not on file 02/27 Educational Attainment Answer Date Mendez rded Speak language other than Pashto at home Not on file 02/27/2023 Want [...] with bloody drainage. Patient was admitted to [facility] on 07/16/2021. Post generator change, [...] (Rocephin) - 2 Gram, IV Piggyback, Inj, [id number], infuse over 30 Minute(s), Routine DAPTOmycin + Sodium Chloride 0.9% intravenous solution 50 mL - 400 mg, IV Piggyback, Inj, [id number], infuse over 30 Minute(s), Routine Anticoagulant alteplase [...] Normal strength, No tenderness. Integumentary: Warm, Dry, [place], No pallor, No rash, ICD site left [...] (JUL 17) 3.5 (JUL 16) , ACC: [id number] ORDER: Culture Wound and Stain DATE: 07/17/2021 08:34 SOURCE: Wound SITE: Chest L Reports Pre 07/18/2021 06:24 No growth GS 07/17/2021 14:09 No cells seen No organisms seen. == [facility]: [id number] ORDER: Culture Blood DATE: 07/16/2021 12:39 SOURCE: Blood SITE: Reports Pre 07/19/2021 16:01 No growth at 3 days. Pre 07/18/2021 16:01 No growth at 2 days. Pre 07/17/2021 16:02 No growth at 1 day. Pre 07/17/2021 06:01 Culture less than 24 Hrs old == [facility]: [id number] ORDER: Culture Blood DATE: 07/16/2021 12:39 SOURCE: [...] Weekly PICC dressing changes. Fax orders to [phone], call [phone] with final arrangements. Hold rosuvastatin while on daptomycin to decrease risk of rhabdomyolysis. Arrange for follow-up with me in 1 week post discharge. Electronically signed by Reyna Da Silva Conversion Public Health Service Officer Cerner at 05/27/2022 9:06 PM CDT documented in this encounter Plan of Treatment Not on file documented as of this encounter Visit Diagnoses Not on filedocumented in this encounter Care Teams Hedis Specialist Relationship Specialty Start Date End Date Linh Doty, DO 8 [facility] [address] [place] [address] PCP - General Family Medicine 11/04/22 Lizzie Alves PA-C [address] [facility], [facility] [address] [place] [address] Hospitalist Cardiology 05/27/23 Kaushik Mariscal MD [address] [facility] [address] [place] [address] Hose Inspector And Patcher Electrophysiology 11/18/23 documented as of this encounter
--- OUTSIDE RECORDS SUMMARY | 2024-09-16 09:00 | XMS_ITS | Encounter Summary ---
Author Organization [employer] ([place], [place], [place], [place]) Address [address] [place] [address] Care Team Providers Care Performance Management Consultant Name Role Phone Lalitha Linh Delilah DAVIS Primary Care Provider [phone] Lizzie Alves PA-C Unavailable [phone] Kaushik Mariscal MD Unavailable Encounter Details Date Type Department Care Team (Late st Contact Info) Description 07/19/2021 Transcribed Document [facility] Family Medicine [address] [place] [address] ProviderChad MD [address] [place] [address] Social History Tobacco Use Types [...] On: 07/19/2021 13:35 EDT by Mayra Vann Interface Control Officer Rn Care Management Progress Note Discharge Arrangements [...] Attend Multidisciplinary Rounds? : Yes Mayra Vann Interface Control Officer Rn - 07/19/2021 13:35 EDT Narrative Progress Note Narrative Progress Note : hd 3 elos 5 low rar patient is set up with [facility], [facility] to teach patient abx administration saturday 07/22. Per EP, plan to dc patient saturday 07/22. [place] for HH. Historical Progress Note : hd 2 low rar patient has orders from [facility] r/t iv abx and picc care but patient has no orders for PICC placement at this time, CM has reached out to [facility]. home abx orders sent to [facility]. patient will also need hh dcp- home with hh and iv abx Mayra Vann Interface Control Officer Rn - 07/18/21 16:10:37 Mayra Vann Interface Control Officer Rn - 07/19/2021 13:35 EDT documented in this encounter Plan of Treatment Not on file documented as of this encounter Visit Diagnoses Not on filedocumented in this encounter Care Teams Performance Management Consultant Relationship Specialty Start Date End Date Linh Doty DO 8 [facility] [address] [place] [address] PCP - General Family Medicine 11/04/22 Lizzie Alves PA-C 1401 [facility], [facility] [address] [place] [address] Hospitalist Cardiology 05/27/23 Kaushik Mariscal MD [address] [facility] [address] [place] [address] Lard Refiner Electrophysiology 11/18/23 documented as of this encounter
--- OUTSIDE RECORDS SUMMARY | 2024-09-16 09:00 | XMS_ITS | Encounter Summary ---
Author Organization [employer] ([place], [place], [place], [place]) Address [address] [place] [address] Care Team Providers Care Addiction Psychiatrist Name Role Phone Grace Linh Delilah DAVIS Primary Care Provider [phone] Lizzie Alves PA-C Unavailable [phone] Kaushik Mariscal MD Unavailable Encounter Details Date Type Department Care Team (Late st Contact Info) Description 07/02/2021 Transcribed Document [facility] [place] [address] [place] [address] ProviderChad MD [address] [place] [address] Social History Tobacco Use Types Packs/Day [...] On: 07/02/2021 13:09 EDT by ERNIE PAYAN, RN-Forest Fire OfficerRepairer Engine Production Progress Note Discharge Arrangements : Patient Post-Acute Information Patient Name: GAGAN SEALS Gender: Female : [birth year] Age: 55 Years No Post-Acute Placement(s) Listed No Post-Acute Service(s) Listed No [place]pan Referral(s) Listed Patient Discharge Goal : Home ERNIE PAYAN RN-Forest Fire Officer - 07/02/2021 13:09 EDT Narrative Progress Note Narrative Progress Note : received call from Dr grace Gonzalez office. she spoke with ms. seals to schedule follow up appt. pt declined to schedule appt as will see Jimenez next week. ERNIE PAYAN, RN-Forest Fire Officer - 07/02/2021 13:09 EDT documented in this encounter Plan of Treatment Not on file documented as of this encounter Visit Diagnoses Not on filedocumented in this encounter Care Teams Addiction Psychiatrist Relationship Specialty Start Date End Date Linh Doty, DO 8 [facility] [address] [place] [address] PCP - General Family Medicine 11/04/22 Lizzie Alves PA-C [address] [facility], [facility] [address] [place] [address] Hospitalist Cardiology 05/27/23 Kaushik Mariscal MD [address] [facility] [address] [place], [place] [id number] Transportation Associate Electrophysiology 11/18/23 documented as of this encounter
--- OUTSIDE RECORDS SUMMARY | 2024-09-16 09:00 | XMS_ITS | Encounter Summary ---
Author Organization [employer] ([place], [place], [place], [place]) Address [address] [place] [address] Care Team Providers Care Development Architect Name Role Phone Lalitha Linhkarthikeyan Mazariegos DO Primary Care Provider [phone] Lizzie Alves PA-C Unavailable [phone] Kaushik Mariscal MD Unavailable Encounter Details Date Type Department Care Team (Late st Contact Info) Description 07/25/2021 Transcribed Document [facility] [place] Family Medicine [address] [place] [address] ProviderChad MD [address] [place] [address] Social History Tobacco Use Types [...] Performed On: 07/25/2021 12:05 EDT by Caryl Estraad RN-[employer] Stroke/Warfarin Instructions Stroke/TIA Discharge Ins : N/A Warfarin Discharge Ins : N/A Caryl Estrada RN-[employer] - 07/25/2021 12:05 EDT Education Topics: Anticoagulant Education Anticoagulant : Anticoagulant other than warfarin Compliance Issues *Q : Verbalizes understanding Diet *Q : Verbalizes understanding Adverse drug reactions/interactions *Q : Verbalizes understanding Action/Interaction with Other Drugs : Verbalizes understanding Follow-up care/monitoring *Q : Verbalizes understanding Follow-up Care Details : Physician's office/clinic Caryl Estrada RN-[employer] - 07/25/2021 12:05 EDT Electronically signed by Rekha [facility] Conversion Pipe And Boiler Covers Supervisor Cerner at 05/27/2022 9:13 PM CDT documented in this encounter Plan of Treatment Not on file documented as of this encounter Visit Diagnoses Not on filedocumented in this encounter Care Teams Development Architect Relationship Specialty Start Date End Date Linh Doty, DO 8 [facility] [address] [place] [address] PCP - General Family Medicine 11/04/22 Lizzie Alves PA-C 1401 [facility], [facility] [address] [place] [address] Hospitalist Cardiology 05/27/23 Kaushik Mariscal MD [address] [facility] [address] [place] [address] Upholstery Estimator Electrophysiology 11/18/23 documented as of this encounter
--- OUTSIDE RECORDS SUMMARY | 2024-09-16 09:00 | XMS_ITS | Encounter Summary ---
Author Organization [employer] ([place], [place], [place], [place]) Address [address] [place] [address] Care Team Providers Care Drum Dyeing Machine Operator Name Role Phone Lalitha Linhkarthikeyan Mazariegos DO Primary Care Provider [phone] Lizzie Alves PA-C Unavailable [phone] Kaushik Mariscal MD Unavailable Encounter Details Date Type Department Care Team (Late st Contact Info) Description 11/23/2018 Transcribed Document [facility] [place] Family [place] [address] ProviderChad MD [address] [place] [address] Social History Tobacco Use Types Packs/Day [...] Electronically signed by Alberto Da Silva Conversion Product Development Assistant Cerner at 05/27/2022 9:11 PM CDT documented in this encounter Plan of Treatment Not on file documented as of this encounter Visit Diagnoses Not on filedocumented in this encounter Care Teams Drum Dyeing Machine Operator Relationship Specialty Start Date End Date Linh Doty, 8 [facility] [address] [place] [address] PCP - General Family Medicine 11/04/22 Lizzie Alves PA-C [address] [place] [address], [facility] [address] [place] [address] Hospitalist Cardiology 05/27/23 Kaushik Mariscal MD [address] [facility] [address] [place] [address] Inside Account Representative Electrophysiology 11/18/23 documented as of this encounter
--- OUTSIDE RECORDS SUMMARY | 2024-09-16 09:00 | XMS_ITS | Encounter Summary ---
Author Organization [employer] ([place], [place], [place], [place]) Address [address] [place] [address] Care Team Providers Care Paint Spray Tender Name Role Phone Lalitha Linh Delilah DAVIS Primary Care Provider [phone] Lizzie Alves PA-C Unavailable [phone] Dion Mariscal MD Unavailable Encounter Details Date Type Department Care Team (Late st Contact Info) Description 07/22/2021 Transcribed Document [facility] [place] [address] [place] [address] ProviderChad MD [address] [place] [address] Social History Tobacco Use Types Packs/Day Years Used Date Smoking Tobacco: Never Assessed Family and Community Support Answer Geremias e Recorded Help with Day to Day Activities Not on file 02/27/2023 Feeling Lonely or Isolated Not on file 02/27 Educational Attainment Answer Date Mendez rded Speak language other than Swiss at home Not on file 02/27/2023 Want [...] 07/22/2021 9:42 AM CDT Patient: GAGAN MENDOZA [facility]: [id number] Age: 55 years Sex: Female : 1965 [...] mg, 8 mL, 116 mL/Hr, IV Piggyback, [id number] DuoNeb 0.5 mg-2.5 mg/3 mL inhalation solution: 3 mL, Nebulized Inhalation, Q8H Florastor: 250 mg, Oral, BID Lasix: 20 mg, Oral, Daily MiraLax: 17 Gram, Oral, Daily, PRN: Constipation Normal Saline Flush: 10 mL, IntraCATHeter, Q12H Rocephin: 2 Gram, 100 mL/Hr, IV Piggyback, [id number] Roxicodone: 5 mg, Oral, Q4H, PRN: Pain [...] 0 Refill(s) Rocephin: 2 Gram, IV Piggyback, [id number], 0 Refill(s) Vitamin D2 1.25 mg (50,000 intl units) oral capsule: 1 Cap, Oral, Weekly, 0 Refill(s) acetaminophen-HYDROcodone 325 mg-5 mg oral tablet: 1 Tab, Oral, Q8H, PRN: for pain, 0 Refill(s) carvedilol 12.5 mg oral tablet: 1 Tab, Oral, BID, 180 Tab, 0 Refill(s) fluticasone 50 mcg/inh nasal spray: 2 [place], Nasal, Daily, PRN: Nasal Congestion, 16 Gram, [...] BID fluticasone 50 mcg/inh nasal spray 2 [place], PRN, Nasal, Daily folic acid 1 mg [...] Oral, Daily Rocephin 2 Gram, IV Piggyback, [id number] topiramate 25 mg oral tablet 25 mg [...] Oral, BID cefTRIAXone 2 Gram, IV Piggyback, X62DBsf DAPTOmycin + NaCl 0.9% 50 mL 400 mg 8 mL, IV Piggyback, [id number] ergocalciferol 50,000 unit cap 50,000 Units 1 [...] All Problems High cholesterol / SNOMED CT 43356982 / Confirmed PAD (peripheral artery disease) / SNOMED CT 7631624107 / Confirmed Chronic CHF / SNOMED CT 924986089 / Confirmed Current smoker / SNOMED CT 908320780 / Confirmed Arteriosclerosis / SNOMED CT 979448886 / Confirmed Intermittent claudication / SNOMED CT 569823808 / Confirmed Cardiomyopathy / SNOMED CT 070697521 / Confirmed History of [place] (myocardial infarction) / SNOMED CT 9339275652 / Confirmed Pacemaker / SNOMED CT 5391361114 / Confirmed Stented coronary artery / SNOMED CT 5598873594 / Confirmed Gout / SNOMED CT 328447707 / Confirmed At risk for sleep apnea / IMO 09921158 / Confirmed Resolved: History of ventricular tachycardia / SNOMED CT 5618055167 ICD placed in past for arrythmia. Canceled: HTN (hypertension) / SNOMED CT 4316790077 Canceled: COPD (chronic obstructive pulmonary disease) / SNOMED CT 99412796 Canceled: At risk for sleep apnea / IMO 18413366 Canceled: History of ischemic cardiomyopathy / SNOMED CT 291674772 Canceled: Abdominal aortic stenosis / SNOMED CT 205365312 Canceled: Shortness of breath / SNOMED CT 926237766, Active Problems (12) Arteriosclerosis At risk for sleep apnea Cardiomyopathy Chronic CHF Current smoker Gout High cholesterol History of [place] (myocardial infarction) Intermittent claudication Pacemaker PAD (peripheral [...] Normal range of motion. Integumentary: Warm, Dry, [place]. PPM site stable. Bruising around site but [...] from clinic to be admitted by [facility] physician group for IV antibiotics. Will request blood cultures, consult ID, further plans to follow. documented in this encounter Plan of Treatment Not on file documented as of this encounter Visit Diagnoses Not on filedocumented in this encounter Care Teams Paint Spray Tender Relationship Specialty Start Date End Date Linh Doty, 8 [facility] [address] [place] [address] PCP - General Family Medicine 11/04/22 Lizzie Alves PA-C [address] [facility], [facility] [address] [place] [address] Hospitalist Cardiology 05/27/23 Dion Mariscal MD 1401 [facility] [address] [place] [address] Buckshot Swage Operator Electrophysiology 11/18/23 documented as of this encounter
--- OUTSIDE RECORDS SUMMARY | 2024-09-16 09:00 | XMS_ITS | Encounter Summary ---
Author Organization [employer] ([place], [place], [place], [place]) Address [address] [place] [address] Care Team Providers Care Reinforcing Steel Worker Name Role Phone Lalitha Linhkarthikeyan Mazariegos DO Primary Care Provider [phone] Lizzie Alves PA-C Unavailable [phone] Kaushik Mariscal MD Unavailable Encounter Details Date Type Department Care Team (Late st Contact Info) Description 07/25/2021 Transcribed Document [facility] [place] Family Medicine [address] [place] [address] ProviderChad MD [address] [place] [address] Social History Tobacco Use Types Packs/Day Years Used Date Smoking Tobacco: Never Assessed Family and Community Support Answer Geremias e Recorded Help with Day to Day Activities Not on file 02/27/2023 Feeling Lonely or Isolated Not on file 02/27 Educational Attainment Answer Date Mendez rded Speak language other than Amharic at home Not on file 02/27/2023 Want [...] with bloody drainage. Patient was admitted to [facility] on 07/16/2021. Post generator change, [...] (Rocephin) - 2 Gram, IV Piggyback, Inj, [id number], infuse over 30 Minute(s), Routine doxycycline - [...] No tenderness, No deformity. Integumentary: Warm, Dry, [place], No pallor, No rash, ICD site left [...] 10) L 3.2 (MADELEINE 09) , ACC: [id number] ORDER: Culture Wound and Stain DATE: 07/24/2021 13:45 SOURCE: Surgical Swab SITE: Pacemaker Pocket Reports Pre 07/25/2021 06:34 No growth GS 07/24/2021 21:55 No organisms seen. No cells seen == ACC: [id number] ORDER: Culture Catheter Tip DATE: 07/24/2021 13:45 SOURCE: Catheter Tip SITE: Pacemaker Pocket Reports Pre 07/25/2021 06:33 No growth == ACC: [id number] ORDER: Culture Blood DATE: 07/16/2021 12:39 SOURCE: Blood SITE: Reports Final 07/21/2021 16:01 No growth at 5 days. Pre 07/20/2021 16:01 No growth at 4 days. Pre 07/19/2021 16:01 No growth at 3 days. Pre 07/18/2021 16:01 No growth at 2 days. Pre 07/17/2021 16:02 No growth at 1 day. Pre 07/17/2021 06:01 Culture less than 24 Hrs old == ACC: [id number] ORDER: Culture Blood DATE: 07/16/2021 12:39 SOURCE: Blood SITE: Reports Final 07/21/2021 16:01 No growth at 5 days. Pre 07/20/2021 16:01 No growth at 4 days. Pre 07/19/2021 16:01 No growth at 3 days. Pre 07/18/2021 16:01 No growth at 2 days. Pre 07/17/2021 16:02 No growth at 1 day. Pre 07/17/2021 06:01 Culture less than 24 Hrs old == [facility]: [id number] ORDER: Culture Wound and Stain DATE: 07/17/2021 [...] Discussed with cardiology. Electronically signed by Rekha, [facility] Conversion Filler Operator Cerner at 05/27/2022 8:58 PM CDT documented in this encounter Plan of Treatment Not on file documented as of this encounter Visit Diagnoses Not on filedocumented in this encounter Care Teams Reinforcing Steel Worker Relationship Specialty Start Date End Date Linh Doty, DO 8 [facility] [address] [place] [address] PCP - General Family Medicine 11/04/22 Lizzie Alves PA-C 1401 [facility], [facility] [address] [place] [address] Hospitalist Cardiology 05/27/23 Kaushik Mariscal MD [address] [facility] [address] [place], [place] [id number] It Software Developer Electrophysiology 11/18/23 documented as of this encounter
--- OUTSIDE RECORDS SUMMARY | 2024-09-16 09:00 | XMS_ITS | Encounter Summary ---
Author Organization [employer] ([place], [place], [place], [place]) Address [address] [place] [address] Care Team Providers Care Drywall Hanger Helper Name Role Phone Lalitha Linhkarthikeyan Mazariegos DO Primary Care Provider [phone] Lizzie Alves PA-C Unavailable [phone] Kaushik Mariscal MD Unavailable Encounter Details Date Type Department Care Team (Late st Contact Info) Description 07/22/2021 Transcribed Document [facility] [place] Family Medicine [address] [place] [address] ProviderChad MD [address] [place] [address] Social History Tobacco Use Types Packs/Day Years Used Date Smoking Tobacco: Never Assessed Family and Community Support Answer Geremias e Recorded Help with Day to Day Activities Not on file 02/27/2023 Feeling Lonely or Isolated Not on file 02/27 Educational Attainment Answer Date Mendez rded Speak language other than Estonian at home Not on file 02/27/2023 Want [...] Historical ProviderMD - 07/22/2021 2:00 AM CDT Travel Specialist Details Entered On: 07/22/2021 3:29 EDT Performed On: 07/22/2021 2:00 EDT by Larissa Dubois RN-PATIENT CARE BEDSIDE NON-EXEMPT Order Details Patient Needs Meds Crushed/Liquid : No Larissa Dubois RN-PATIENT CARE BEDSIDE NON-EXEMPT - 07/22/2021 3:29 EDT Electronically signed by Rekha [facility] Conversion Bridge Painter Cerner at 05/27/2022 9:17 PM CDT documented in this encounter Plan of Treatment Not on file documented as of this encounter Visit Diagnoses Not on filedocumented in this encounter Care Teams Drywall Hanger Helper Relationship Specialty Start Date End Date Linh Doty, 8 [facility] [address] [place] [address] PCP - General Family Medicine 11/04/22 Lizzie Alves PA-C [address] [place] [address], [facility] [address] [place] [address] Hospitalist Cardiology 05/27/23 Kaushik Mariscal MD 1401 [facility] [address] [place] [address] Automotive Service Consultant Electrophysiology 11/18/23 documented as of this encounter
--- OUTSIDE RECORDS SUMMARY | 2024-09-16 09:00 | XMS_ITS | Referral Summary ---
Author Organization [employer] ([place], [place], [place], [place]) Address [address] [place] [address] Care Team Providers Care Captain Cannery Tender Name Role Phone Linh Doty DO Primary Care Provider [phone] Lizzie Alves PA-C Unavailable [phone] Kaushik Mariscal MD Unavailable Encounters Date Type Department Care Team Description 08/15/2024 5:00 AM EDT Clinical Support [facility] Electrophysiology [address] [place] [address] Kaushik Mariscal MD Encounter for adjustment or management of cardiac device (Primary Dx); Ischemic cardiomyopathy with implantable cardioverter-defibrill ator (ICD); Chronic combined systolic and diastolic congestive heart failure (HCC) 07/15/2024 5:00 AM EDT Clinical Support [facility] Electrophysiology [address] [place] [address] Louise Gottlieb MD Encounter for adjustment or management of cardiac device (Primary Dx); Ischemic cardiomyopathy with implantable cardioverter-defibrill ator (ICD); Chronic combined systolic and diastolic congestive heart failure (HCC) 07/11/2024 6:00 AM EDT Clinical Support [facility] Electrophysiology [address] [place] [address] Louise Gottlieb MD Encounter for adjustment [...] 75 mg tabletIndications :Atherosclerotic heart disease of [place] coronary artery without angina pectoris TAKE ONE [...] on file Medical Devices Implanted Type Area Mutual Fund Analyst Device Identifier Shelf Expiration Date Model / Serial / Lot Icd-08/26/2021 Implanted:08/26 by Kaushik Mariscal MD (Quantity not on file) ICD [employer] 500Q / [id number] / Insurance [facility] AD[facility] Care Teams Captain Cannery Tender Relationship Specialty Start Date End Date Linh Doty, DO 8 [facility] [address] [place] [address] PCP - General Family Medicine 11/04/22 Lizzie Alves PA-C 1401 [facility], [facility] [address] [place] [address] Hospitalist Cardiology 05/27/23 Kaushik Mariscal MD 1401 [facility] [address] [place] [address] Model And Dye Person Electrophysiology 11/18/23
--- OUTSIDE RECORDS SUMMARY | 2024-09-16 09:00 | XMS_ITS | Encounter Summary ---
Author Organization [employer] ([place], [place], [place], [place]) Address [address] [place] [address] Care Team Providers Care Agricultural Produce Washer Name Role Phone Lalitha Linh Delilah DAVIS Primary Care Provider [phone] Lizzie Alves PA-C Unavailable [phone] Dion Mariscal MD Unavailable Encounter Details Date Type Department Care Team (Late st Contact Info) Description 07/02/2021 Transcribed Document [facility] [place] Family Medicine [address] [place] [address] ProviderChad MD [address] [place] [address] Social History Tobacco Use Types Packs/Day [...] Consult Reason : Dr. Mariscal paged at 0566. Kait Kang RN - 07/02/2021 6:40 EDT Consult Phone Call/Page Attempt : First call Provider Service Notified Name : Cardiology Physician Covering for Consult : DION MARISCAL MD-Kait Rizo RN - 07/02/2021 6:39 EDT Electronically signed by Rekha [facility] Conversion Shell Machine Operator Cerner at 05/27/2022 9:12 PM CDT documented in this encounter Plan of Treatment Not on file documented as of this encounter Visit Diagnoses Not on filedocumented in this encounter Care Teams Agricultural Produce Washer Relationship Specialty Start Date End Date Linh Doty, DO 8 [facility] [address] [place] [address] PCP - General Family Medicine 11/04/22 Lizzie Alves PA-C [address] [place] [address], [facility] [address] [place] [address] Hospitalist Cardiology 05/27/23 Dion Mariscal MD 1401 [facility] [address] [place] [address] Offset Second Press Operator Electrophysiology 11/18/23 documented as of this encounter
--- OUTSIDE RECORDS SUMMARY | 2024-09-16 09:00 | XMS_ITS | Encounter Summary ---
Author Organization [employer] ([place], [place], [place], [place]) Address [address] [place] [address] Care Team Providers Care Violin Restorer Name Role Phone Lalitha Linhkarthikeyan Mazariegos DO Primary Care Provider [phone] Lizzie Alves PA-C Unavailable [phone] Kaushik Mariscal MD Unavailable Encounter Details Date Type Department Care Team (Late st Contact Info) Description 07/19/2021 Transcribed Document [facility] Radiology [address] [id number] Yanick Torres MD [address] [place] [address] [place] [address] Social History Tobacco Use Types Packs/Day Years [...] mg, 8 mL, 116 mL/Hr, IV Piggyback, [id number] Florastor: 250 mg, Oral, BID Lasix: 20 mg, Oral, Daily MiraLax: 17 Gram, Oral, Daily, PRN: Constipation Normal Saline Flush: 10 mL, IntraCATHeter, Q12H Rocephin: 2 Gram, 100 mL/Hr, IV Piggyback, K88WMmy Roxicodone: 5 mg, Oral, Q4H, PRN: Pain [...] Refill(s) fluticasone 50 mcg/inh nasal spray: 2 [place], Nasal, Daily, PRN: Nasal Congestion, 16 Gram, [...] BID fluticasone 50 mcg/inh nasal spray 2 [place], PRN, Nasal, Daily folic acid 1 mg [...] Oral, BID cefTRIAXone 2 Gram, IV Piggyback, L02MRev DAPTOmycin + NaCl 0.9% 50 mL 400 mg 8 mL, IV Piggyback, W08ZAef ergocalciferol 50,000 unit cap 50,000 Units 1 [...] At risk for sleep apnea / IMO 04242498 / Confirmed High cholesterol / SNOMED CT 91507701 / Confirmed Canceled: At risk for sleep apnea / IMO 25976777 Canceled: COPD (chronic obstructive pulmonary disease) / SNOMED CT 29018477 Canceled: HTN (hypertension) / SNOMED CT 6914094068, Active Problems (12) Arteriosclerosis At risk for sleep apnea Cardiomyopathy Chronic CHF Current smoker Gout High cholesterol History of [place] (myocardial infarction) Intermittent claudication Pacemaker PAD (peripheral [...] gallop, S1+ S2 No S3 or S4 [place].. Gastrointestinal: Soft, Non-tender, Non-distended, Normal bowel sounds. [...] Weekly PICC dressing changes. Fax orders to [id number], marivel Hold rosuvastatin while on daptomycin to decrease risk of rhabdomyolysis. 07/20 documented in this encounter Plan of Treatment Not on file documented as of this encounter Visit Diagnoses Not on filedocumented in this encounter Care Teams Violin Restorer Relationship Specialty Start Date End Date Linh Doty, 8 [facility] [address] [place] [address] PCP - General Family Medicine 11/04/22 Lizzie Alves PA-C 1401 [facility], [facility] [address] [place] [address] Hospitalist Cardiology 05/27/23 Kaushik Mariscal MD 1401 [facility] [address] [place] [address] Action Finisher Electrophysiology 11/18/23 documented as of this encounter
--- OUTSIDE RECORDS SUMMARY | 2024-09-16 09:00 | XMS_ITS | Encounter Summary ---
Author Organization [employer] ([place], [place], [place], [place]) Address [address] [place] [address] Care Team Providers Care Gritting Machine Operator Name Role Phone Lalitha Linh Delilah DAVIS Primary Care Provider [phone] Lizzie Alves PA-C Unavailable [phone] Kaushik Mariscal MD Unavailable Encounter Details Date Type Department Care Team (Late st Contact Info) Description 07/19/2021 Transcribed Document [facility] Family Medicine [address] [place] [address] ProviderChad MD [address] [place] [address] Social History Tobacco Use Types [...] Policy Numbers : Insurance 1 Health Plan: [employer] MANAGED MEDICARE Policy Number: [id number] Authorization Number: Insurance Primary Name : [facility] MANAGED MEDICARE Policy Number: [id number] Authorization Status-Primary : Awaiting callback Reference Number-Primary : [id number] Authorized Service Begin Date-Primary : 07/16/2021 EDT Authorization Comments-Primary : UNDER REVIEW PER PORTAL Historical Authorization Comments-Primary : Comment 1: CLINICAL FAXED VIA [employer] (Khushi Jones Rn-Utilization Review 07/17/2021 15:22) Comment 2: REF# PER GUME. CLINICAL FAXED VIA [employer] (Khushi Jones Rn-Utilization Review 07/17/2021 15:17) Khushi Jones Rn-Utilization Review - 07/19/2021 9:22 EDT documented in this encounter Plan of Treatment Not on file documented as of this encounter Visit Diagnoses Not on filedocumented in this encounter Care Teams Gritting Machine Operator Relationship Specialty Start Date End Date Linh Doty, DO [address] [facility] [address] [place] [address] PCP - General Family Medicine 11/04/22 Lizzie Alves PA-C [address] [facility], [facility] [address] [place] [address] Hospitalist Cardiology 05/27/23 Kaushik Mariscal MD [address] [facility] [address] [place], [place] [address] Manager Analytical Electrophysiology 11/18/23 documented as of this encounter
--- OUTSIDE RECORDS SUMMARY | 2024-09-16 09:00 | XMS_ITS | Encounter Summary ---
Author Organization [employer] ([place], [place], [place], [place]) Address [address] [place] [address] Care Team Providers Care Event Coordinator Name Role Phone Lalitha Linh Delilah DAVIS Primary Care Provider [phone] Lizzie Alves PA-C Unavailable [phone] Dion Mariscal MD Unavailable Encounter Details Date Type Department Care Team (Late st Contact Info) Description 07/19/2021 Transcribed Document [facility] Family Medicine [address] [place] [address] ProviderChad MD [address] [place] [address] Social History Tobacco Use Types [...] 07/19/2021 9:36 AM CDT Patient: LENA MENDOZA [facility]: [id number] Age: 55 years Sex: Female : 1965 [...] mg, 8 mL, 116 mL/Hr, IV Piggyback, [id number] Florastor: 250 mg, Oral, BID Lasix: 20 mg, Oral, Daily MiraLax: 17 Gram, Oral, Daily, PRN: Constipation Normal Saline Flush: 10 mL, IntraCATHeter, Q12H Rocephin: 2 Gram, 100 mL/Hr, IV Piggyback, [id number] Roxicodone: 5 mg, Oral, Q4H, PRN: Pain [...] Refill(s) fluticasone 50 mcg/inh nasal spray: 2 [place], Nasal, Daily, PRN: Nasal Congestion, 16 Gram, [...] BID fluticasone 50 mcg/inh nasal spray 2 [place], PRN, Nasal, Daily folic acid 1 mg [...] Oral, BID cefTRIAXone 2 Gram, IV Piggyback, [id number] DAPTOmycin + NaCl 0.9% 50 mL 400 mg 8 mL, IV Piggyback, P41SYgf ergocalciferol 50,000 unit cap 50,000 Units 1 [...] All Problems High cholesterol / SNOMED CT 11671919 / Confirmed PAD (peripheral artery disease) / SNOMED CT 6181942738 / Confirmed Chronic CHF / SNOMED CT 872067169 / Confirmed Current smoker / SNOMED CT 530240936 / Confirmed Arteriosclerosis / SNOMED CT 779719602 / Confirmed Intermittent claudication / SNOMED CT 807903583 / Confirmed Cardiomyopathy / SNOMED CT 577908381 / Confirmed History of [place] (myocardial infarction) / SNOMED CT 3286024746 / Confirmed Pacemaker / SNOMED CT 5317224407 / Confirmed Stented coronary artery / SNOMED CT 4569068704 / Confirmed Gout / SNOMED CT 755886063 / Confirmed At risk for sleep apnea / IMO 40352767 / Confirmed Resolved: History of ventricular tachycardia / SNOMED CT 5736330568 ICD placed in past for arrythmia. Canceled: HTN (hypertension) / SNOMED CT 0209363925 Canceled: COPD (chronic obstructive pulmonary disease) / SNOMED CT 81967688 Canceled: At risk for sleep apnea / IMO 94092652 Canceled: History of ischemic cardiomyopathy / SNOMED CT 881617235 Canceled: Abdominal aortic stenosis / SNOMED CT 293535882 Canceled: Shortness of breath / SNOMED CT 626436946, Active Problems (12) Arteriosclerosis At risk for sleep apnea Cardiomyopathy Chronic CHF Current smoker Gout High cholesterol History of [place] (myocardial infarction) Intermittent claudication Pacemaker PAD (peripheral [...] Normal range of motion. Integumentary: Warm, Dry, [place]. PPM site stable. Bruising around site but [...] filedocumented in this encounter Care Teams Event Coordinator Relationship Specialty Start Date End Date Linh Doty, DO [address] [facility] [address] [place] [address] PCP - General Family Medicine 11/04/22 Lizzie Alves PA-C [address], [address] [place] [address] Hospitalist Cardiology 05/27/23 Dion Mariscal MD [address] [facility] [address] [place], [place] [address] Tax Compliance Manager Electrophysiology 11/18/23 documented as of this encounter
--- OUTSIDE RECORDS SUMMARY | 2024-09-16 09:00 | XMS_ITS | Clinical Summary ---
Author Organization [facility] Address [address] [place] [address] Phone Care Team Providers Care Retail Interior Designer Name Role Phone Fracisco DALTON, Gilson Begum Unavailable [phone] [ ] Conditions or Problems Problem Name Problem Code Onset Date Status Entry Date Provider Comment Standard Description Annotate Dermatitis due to drug AND/OR medicine taken internally 61166586 (SNOMED CT) 08/21 Active 08/21 Gilson Yap [...] subsequent encounter Cellulitis/wo und infection, chest wall 61144703 (SNOMED CT) 07/26 Active 07/26 Sherri Herndon Cellulitis of chest wall Ischemic Cardiomyopath y 426358091 (SNOMED CT) 07/26 Active 07/26 Sherri Herndon Generalized ischemic myocardial dysfunction Nicotine dependence, cigarettes 40608694 (SNOMED CT) 07/26 Active 07/26 Sherri Herndon Cigarette smoker COPD 15810662 (SNOMED CT) 07/26 Active 07/26 Sherri Herndon Chronic obstructive pulmonary disease Acute respiratory failure with hypoxia 26433411 (SNOMED CT) 07/26 Active 07/26 Sherri Herndon Acute respiratory failure Hypoalbuminem ia 238523623 (OMED CT) 07/26 Active 07/26 Sherri Herndon Hypoalbuminemia Hypocalcemia 0488567 ([facility] CT) 07/26 Active 07/26 Sherri Herndon Hypocalcemia Thrombocytope delia, secondary D69.59 (ICD-10-CM ) 07/26 Active 07/26 Sherri Herndon Other secondary thrombocytopenia Hyponatremia 39167006 ([facility] CT) 07/26 Active 07/26 Sherri Herndon Hyponatremia Medications Medication Instructions Start Date Stop Date Generic Name NDC Provider HYDROCODONE-ROSE TAMINOPHEN 5-325 MG TABS 1 Tab, as needed, Oral, every 8 hours hydrocodone-acet aminophen 59947697187 Faina Cantu CARVEDILOL 12.5 MG TABS 1 Tab, Oral, twice a day carvedilol 35301395750 Faina Cantu CEFDINIR 300 MG CAPS 1 Cap, Oral, every 12 hours cefdinir 47775907705 Faina Cantu DOXYCYCLINE HYCLATE 100 MG CAPS 1 Cap, Oral, twice a day doxycycline hyclate 94309356023 Faina Cantu FLORASTOR 250 MG CAPS 1 Cap, Oral, twice a day saccharomyces boulardii 00005013671 Faina Cantu FLUTICASONE PROPIONATE 50 MCG/ACT SUSP 2 [place], as needed, Nasal, Daily fluticasone propionate 89880730104 Faina Cantu FOLIC ACID 1 MG TABS 1 Tab, Oral, Daily folic acid 90884931372 Afina Cantu FUROSEMIDE 20 MG TABS 1 Tab, Oral, Daily furosemide 96365226595 Faina Cantu GABAPENTIN 600 MG TABS 1 Tab, Oral, three times a day gabapentin 98388611767 Faina Cantu LISINOPRIL 20 MG TABS 1 Tab, Oral, At Bedtime lisinopril 65023235681 Faina Cantu NICOTINE STEP 1 21 MG/24HR PT24 1 Patch, TransDermal, Daily nicotine 34892421750 Faina Cantu PANTOPRAZOLE SODIUM 40 MG TBEC 1 Tab, Oral, Daily pantoprazole 08448818833 Faina Cantu POTASSIUM CHLORIDE ER 20 MEQ CR-TABS 1 Tab, Oral, Daily potassium chloride 51502801638 Faina Cantu TOPIRAMATE 25 MG TABS 1 Tab, Oral, At Bedtime topiramate 02983907071 Faina Cantu VITAMIN D (ERGOCALCIFEROL ) 1.25 MG (74047 UT) CAPS 1 Cap, Oral, Weekly ergocalciferol (vitamin d2) 84237242989 Faina Cantu Medications Administered No information available. [...] Name Date Entry Date CPT-sl STAT Labs CPT-94423 CMP [id number] CBC with Differential 2021 CPT-05059 C- reactive protein CPT-Cooral Continue oral antibiotics [...]
--- OUTSIDE RECORDS SUMMARY | 2024-09-16 09:00 | XMS_ITS | Encounter Summary ---
Author Organization [employer] ([place], [place], [place], [place]) Address [address] [place] [address] Care Team Providers Care Construction Producer Name Role Phone Lalitha Linhkarthikeyan Mazariegos DO Primary Care Provider Lizzie Alves PA-C Unavailable [phone] Kaushik Mariscal MD Unavailable Encounter Details Date Type Department Care Team (Late st Contact Info) Description 07/19/2021 Transcribed Document [facility] Radiology [address] [id number] Yanick Torres MD [address] [place] [address] [place] [address] Social History Tobacco Use Types Packs/Day Years Used Date Smoking Tobacco: Never Assessed Family and Community Support Answer Geremias e Recorded Help with Day to Day Activities Not on file 02/27/2023 Feeling Lonely or Isolated Not on file 02/27 Educational Attainment Answer Date Mendez rded Speak language other than Trinidadian at home Not on file 02/27/2023 Want [...] mg, 8 mL, 116 mL/Hr, IV Piggyback, [id number] Florastor: 250 mg, Oral, BID Lasix: 20 mg, Oral, Daily MiraLax: 17 Gram, Oral, Daily, PRN: Constipation Normal Saline Flush: 10 mL, IntraCATHeter, Q12H Rocephin: 2 Gram, 100 mL/Hr, IV Piggyback, [id number] Roxicodone: 5 mg, Oral, Q4H, PRN: Pain [...] 0 Refill(s) Rocephin: 2 Gram, IV Piggyback, E78UHcm, 0 Refill(s) Vitamin D2 1.25 mg (50,000 intl units) oral capsule: 1 Cap, Oral, Weekly, 0 Refill(s) acetaminophen-HYDROcodone 325 mg-5 mg oral tablet: 1 Tab, Oral, Q8H, PRN: for pain, 0 Refill(s) carvedilol 12.5 mg oral tablet: 1 Tab, Oral, BID, 180 Tab, 0 Refill(s) fluticasone 50 mcg/inh nasal spray: 2 [place], Nasal, Daily, PRN: Nasal Congestion, 16 Gram, [...] BID fluticasone 50 mcg/inh nasal spray 2 [place], PRN, Nasal, Daily folic acid 1 mg [...] Oral, Daily Rocephin 2 Gram, IV Piggyback, V55UGsm topiramate 25 mg oral tablet 25 mg [...] Oral, BID cefTRIAXone 2 Gram, IV Piggyback, R63ZUdf DAPTOmycin + NaCl 0.9% 50 mL 400 mg 8 mL, IV Piggyback, P71MFqu ergocalciferol 50,000 unit cap 50,000 Units 1 [...] At risk for sleep apnea / IMO 26860579 / Confirmed High cholesterol / SNOMED CT 90680836 / Confirmed Canceled: At risk for sleep apnea / IMO 55419956 Canceled: COPD (chronic obstructive pulmonary disease) / SNOMED CT 13168584 Canceled: HTN (hypertension) / SNOMED CT 1012015694, Active Problems (12) Arteriosclerosis At risk for [...] gallop, S1+ S2 No S3 or S4 [place].. Gastrointestinal: Soft, Non-tender, Non-distended, Normal bowel sounds. [...] Weekly PICC dressing changes. Fax orders to [id number], c Hold rosuvastatin while on daptomycin to decrease risk of rhabdomyolysis. 07/20 Discharge Medications (14) Active acetaminophen-HYDROcodone 325 mg-5 mg oral tablet 1 Tab, PRN, Oral, Q8H carvedilol 12.5 mg oral tablet 12.5 mg = 1 Tab, Oral, BID Florastor 250 mg oral capsule 250 mg = 1 Cap, Oral, BID fluticasone 50 mcg/inh nasal spray 2 [place], PRN, Nasal, Daily folic acid 1 mg [...] Oral, Daily Rocephin 2 Gram, IV Piggyback, X77VGvd topiramate 25 mg oral tablet 25 mg [...] filedocumented in this encounter Care Teams Construction Producer Relationship Specialty Start Date End Date Linh Doty, DO 8 [facility] [address] [place] [address] PCP - General Family Medicine 11/04/22 Lizzie Alves PA-C [address] [place] [address], [facility] [address] [place] [address] Hospitalist Cardiology 05/27/23 Kaushik Mariscal MD [address] [facility] [address] [place] [address] Marble Cleaner Electrophysiology 11/18/23 documented as of this encounter
--- OUTSIDE RECORDS SUMMARY | 2024-09-16 09:00 | XMS_ITS | Encounter Summary ---
Author Organization [employer] ([place], [place], [place], [place]) Address [address] [place] [address] Care Team Providers Care Transit Mechanic Name Role Phone Lalitha Linhkarthikeyan Mazariegos DO Primary Care Provider [phone] Lizzie Alves PA-C Unavailable [phone] Kaushik Mariscal MD Unavailable Encounter Details Date Type Department Care Team (Late st Contact Info) Description 07/18/2021 Transcribed Document [facility] [place] Family Medicine [address] [place] [address] ProviderChad MD [address] [place] [address] Social History Tobacco Use Types Packs/Day Years Used Date Smoking Tobacco: Never Assessed Family and Community Support Answer Geremias e Recorded Help with Day to Day Activities Not on file 02/27/2023 Feeling Lonely or Isolated Not on file 02/27 Educational Attainment Answer Date Mendez rded Speak language other than Korean at home Not on file 02/27/2023 [...] m - 1,000 mg, IV Piggyback, Inj, R31SUji, infuse over 1 Hour(s) Cardiovascular carvedilol - [...] Normal strength, No tenderness. Integumentary: Warm, Dry, [place], No pallor, No rash, ICD site left [...] (MADELEINE 08) 3.5 (MADELEINE 07) , ACC: [id number] ORDER: Culture Wound and Stain DATE: 07/17/2021 08:34 SOURCE: Wound SITE: Chest L Reports Pre 07/18/2021 06:24 No growth GS 07/17/2021 14:09 No cells seen No organisms seen. == ACC: [id number] ORDER: Culture Blood DATE: 07/16/2021 12:39 SOURCE: Blood SITE: Reports Pre 07/17/2021 16:02 No growth at 1 day. Pre 07/17/2021 06:01 Culture less than 24 Hrs old == ACC: [id number] ORDER: Culture Blood DATE: 07/16/2021 12:39 SOURCE: Blood SITE: Reports Pre 07/17/2021 16:02 No growth at 1 day. Pre 07/17/2021 06:01 Culture less than 24 Hrs old == . Procedure Critical Care - Code Management Assessment: Radiology Results (Last 48 hours) [id number] -- 07/16/2021 14:13 CR Chest 1 Vw [...] Weekly PICC dressing changes. Fax orders to [id number], call [phone] with final arrangements. Hold rosuvastatin while on daptomycin to decrease risk of rhabdomyolysis. Arrange for follow-up with me in 1 week post discharge. documented in this encounter Plan of Treatment Not on file documented as of this encounter Visit Diagnoses Not on filedocumented in this encounter Care Teams Transit Mechanic Relationship Specialty Start Date End Date Linh Doty, DO 8 [facility] [address] [place] [address] PCP - General Family Medicine 11/04/22 Lizzie Alves PA-C 14[address] [facility], [facility] [address] [place] [address] Hospitalist Cardiology 05/27/23 Kaushik Mariscal MD 1401 [facility] [address] [place] [address] Tank Cleaner Electrophysiology 11/18/23 documented as of this encounter
--- OUTSIDE RECORDS SUMMARY | 2024-09-16 09:00 | XMS_ITS | Encounter Summary ---
Author Organization [employer] ([place], [place], [place], [place]) Address [address] [place] [address] Care Team Providers Care Product Manager Name Role Phone Linh Doty DO Primary Care Provider [phone] Lizzie Alves PA-C Unavailable [phone] Kaushik Mariscal MD Unavailable Reason for Visit * Reason Comments Medication Refill Encounter Details Date Type Department Care Team (Late st Contact Info) Description 04/20/2023 Refill [facility] Cardiology [address] [place] [address] Pedro Cruz APRN [address] [facility] [address] [place] [address] Acute coronary thrombosis not resulting in myocardial [...] Date Mendez rded Speak language other than Bulgarian at home Not on file 02/27/2023 Want [...] (HCC) documented in this encounter Care Teams Product Manager Relationship Specialty Start Date End Date Linh Doty, 8 [facility] [address] [place] [address] PCP - General Family Medicine 11/04/22 Lizzie Alves PA-C [address] [place] [address], [facility] [address] [place] [address] Hospitalist Cardiology 05/27/23 Kaushik Mariscal MD [address] [facility] [address] [place] [address] Senior Qualitative Researcher Electrophysiology 11/18/23 documented as of this encounter
--- OUTSIDE RECORDS SUMMARY | 2024-09-16 09:00 | XMS_ITS | Encounter Summary ---
Author Organization [employer] ([place], [place], [place], [place]) Address [address] [place] [address] Care Team Providers Care Inseam Leveler Name Role Phone Lalitha Linh Delilah DAVIS Primary Care Provider [phone] Lizzie Alves PA-C Unavailable [phone] Kaushik Mariscal MD Unavailable Encounter Details Date Type Department Care Team (Late st Contact Info) Description 07/19/2021 Transcribed Document [facility] Family Medicine [address] [place] [address] ProviderChad MD [address] [place] [address] Social History Tobacco Use Types [...] Policy Numbers : Insurance 1 Health Plan: [employer] MANAGED MEDICARE Policy Number: [id number] Authorization Number: Insurance Primary Name : [employer] MANAGED MEDICARE Policy Number: [id number] Authorization Status-Primary : Admit approved Reference Number-Primary : [id number] Authorization Number-Primary : [id number] Number of Days Authorized-Primary : 6 Day(s) Authorized Service Begin Date-Primary : 07/16/2021 EDT Authorized Service End Date-Primary : 07/22/2021 EDT Authorization Comments-Primary : PER PORTAL IP APPROVED FOR 07/16 UP TO BUT NOT INCLUDING 07/22 Historical Authorization Comments-Primary : Comment 1: UNDER REVIEW PER [employer] PORTAL (Khushi Jones, Rn-Utilization Review 07/19/2021 09:22) Comment 2: CLINICAL FAXED VIA [employer] (Khushi Jones Rn-Utilization Review 07/17/2021 15:22) Comment 3: REF# PER [employer]. CLINICAL FAXED VIA [employer] (Khushi Jones Rn-Utilization Review 07/17/2021 15:17) Khushi Jones Rn-Utilization Review - 07/19/2021 13:56 EDT documented in this encounter Plan of Treatment Not on file documented as of this encounter Visit Diagnoses Not on filedocumented in this encounter Care Teams Inseam Leveler Relationship Specialty Start Date End Date Linh Doty, DO [address] [place] [address] PCP - General Family Medicine 11/04/22 Lizzie Alves PA-C [address], [facility] [address] [place] [address] Hospitalist Cardiology 05/27/23 Kaushik Mariscal MD [address] [facility] [place] [address] Film Loader Electrophysiology 11/18/23 documented as of this encounter
--- OUTSIDE RECORDS SUMMARY | 2024-09-16 09:00 | XMS_ITS | Encounter Summary ---
Author Organization [employer] ([place], [place], [place], [place]) Address [address] [place] [address] Care Team Providers Care Geothermal System Installer Name Role Phone Lalitha Linhkarthikeyan Mazariegos DO Primary Care Provider [phone] Lizzie Alves PA-C Unavailable [phone] Kaushik Mariscal MD Unavailable Encounter Details Date Type Department Care Team (Late st Contact Info) Description 07/18/2021 Transcribed Document [facility] Radiology [address] [phone] Yanick Torres MD [address] [place] [address] [place] [address] Social History Tobacco Use Types Packs/Day Years [...] mL: 1,000 mg, 250 mL/Hr, IV Piggyback, [id number] Prescriptions Prescribed nicotine 21 mg/24 hr transdermal [...] Refill(s) fluticasone 50 mcg/inh nasal spray: 2 [place], Nasal, Daily, PRN: Nasal Congestion, 16 Gram, [...] BID fluticasone 50 mcg/inh nasal spray 2 [place], PRN, Nasal, Daily folic acid 1 mg [...] 0.9% 250 mL 1,000 mg, IV Piggyback, U52AZtq Continuous: (0) PRN: (7) acetaminophen 325 mg [...] At risk for sleep apnea / IMO 34502660 / Confirmed High cholesterol / SNOMED CT 77764964 / Confirmed Canceled: At risk for sleep apnea / IMO 31460287 Canceled: COPD (chronic obstructive pulmonary disease) / SNOMED CT 67651825 Canceled: HTN (hypertension) / SNOMED CT 0043605736, Active Problems (12) Arteriosclerosis At risk for [...] gallop, S1+ S2 No S3 or S4 [place].. Gastrointestinal: Soft, Non-tender, Non-distended, Normal bowel sounds. [...] filedocumented in this encounter Care Teams Geothermal System Installer Relationship Specialty Start Date End Date Linh Doty, DO 8 [facility] [address] [place] [address] PCP - General Family Medicine 11/04/22 Lizzie Alves PA-C 14[address] [facility], [facility] [address] [place] [address] Hospitalist Cardiology 05/27/23 Kaushik Mariscal MD 14[address] [facility] [address] [place] [address] Grad Intern Electrophysiology 11/18/23 documented as of this encounter
--- OUTSIDE RECORDS SUMMARY | 2024-09-16 09:00 | XMS_ITS | Encounter Summary ---
Author Organization [employer] ([place], [place], [place], [place]) Address [address] [place] [address] Care Team Providers Care Grocery Supervisor Name Role Phone Lalitha Linhkarthikeyan Mazariegos DO Primary Care Provider [phone] Lizzie Alves PA-C Unavailable [phone] Kaushik Mariscal MD Unavailable Encounter Details Date Type Department Care Team (Late st Contact Info) Description 07/25/2021 Transcribed Document [facility] [place] [address] [place] [address] ProviderChad MD [address] [place] [address] Social History Tobacco Use Types Packs/Day Years Used Date Smoking Tobacco: Never Assessed Family and Community Support Answer Geremias e Recorded Help with Day to Day Activities Not on file 02/27/2023 Feeling Lonely or Isolated Not on file 02/27 Educational Attainment Answer Date Mendez rded Speak language other than Vietnamese at home Not on file 02/27/2023 Want [...] ham, luncheon meats, hot dogs, canned meats, [place] sausage --Limit meat portions to no more [...] white, wheat or rye breads, plain breadsticks, cambodian muffins, hamburger buns, plain bagels, plain cake doughnuts, tru breads, baked flours or corn tortillas, crackers including gerber, animal, saltine, oyster and matzo, snacks including unsalted pretzels, popcorn, baked tortilla chips or potato chips. Homemade breads (biscuits, muffins, cornbread, rolls, pancakes and ugandan toast) should be made with oils low [...] choose prepared products such as muffins, frozen ugandan toast and waffles, biscuits, croissants and other [...] 5 large olives is considered a serving. --Brooten oil and peanut oil are higher in [...] diet, please call the registered dietitians at [facility] at or . We will [...] sugar-free varieties to be more thirst quenching. --Fordyce your teeth. --Chill mouthwash and gargle for [...] by your doctor. General instructions ??? Take hniv-dok-miogele and prescription medicines only as told by [...] provider. Document Revised: 07/01/2018 Document Reviewed: 07/01/2018 [employer] Patient Education ? 2020 [employer]. Infectious Disease Wound Infection A wound infection [...] at home: Medicines ??? Take or apply woaf-amp-cyqfuae and prescription medicines only as told by [...] cannot use soap and water, use hand formstone fitter. ? Change your bandage as told by [...] provider. Document Revised: 09/07/2018 Document Reviewed: 09/07/2018 [employer] Patient Education ? 2020 [employer]. Infection Prevention in the Home If you [...] Supplies needed: ??? Soap. ??? Alcohol-based hand formstone fitter. ??? Standard cleaning products. ??? Disinfectants, such [...] water are not available, use alcohol-based hand formstone fitter. ??? Avoid touching your face, mouth, nose, [...] water. Air-dry your dishes or use a pipe setter. ??? Do not share dishes or eating [...] certain germs and not others. Read the pharmacognosy teacher's instructions or read online resources to determine [...] minutes after each use, or according to pharmacognosy teacher's instructions. ??? Wash reusable cleaning cloths and [...] water are not available, use alcohol-based hand formstone fitter. In general: ??? Stay home except to [...] for Professionals in Infection Control and Epidemiology: professionals.site.apic.org/oievftny-cw-tigd/rnc-wunhsjnmjp-yqmarrg/home/ Summary ??? It is important to know [...] provider. Document Revised: 04/02/2020 Document Reviewed: 04/22/2019 [employer] Patient Education ? 2020 [employer]. Pharmacology Antibiotic Medicine, Adult Antibiotic medicines treat [...] Follow these instructions at home: ??? Take lpid-vpr-snvgbsj and prescription medicines as told by your [...] provider. Document Revised: 11/15/2019 Document Reviewed: 11/15/2019 [employer] Patient Education ? 2020 [employer]. Pulmonary Medicine Steps to Quit Smoking [...] a prescription and some you can purchase imoz-mcs-xiolfwz. Medicines may have nicotine in them to [...] provider. Document Revised: 10/21/2019 Document Reviewed: 04/16/2019 [employer] Patient Education ? 2020 [employer]. Steps to Quit Smoking Smoking tobacco [...] a prescription, and some you can buy seyt-xek-mfpgzjv. Some medicines may contain a drug called [...] encourage you. ??? Call a phone quitline (4-134-KAEANOW), reach out to support groups, or work [...] provider. Document Revised: 10/21/2019 Document Reviewed: 04/16/2019 [employer]a [employer] Patient Education ? 2020 [employer]. documented in this encounter Plan of Treatment Not on file documented as of this encounter Visit Diagnoses Not on filedocumented in this encounter Care Teams Grocery Supervisor Relationship Specialty Start Date End Date Linh Doty, [address] [facility] [address] [place] [address] PCP - General Family Medicine 11/04/22 Lizzie Alves PA-C [address] [place] [address], [facility] [address] [place] [address] Hospitalist Cardiology 05/27/23 Kaushik Mariscal MD [address] [facility] [address] [place], [place] [id number] Oxygen Therapist Electrophysiology 11/18/23 documented as of this encounter
--- OUTSIDE RECORDS SUMMARY | 2024-09-16 09:00 | XMS_ITS | Encounter Summary ---
Author Organization [employer] ([place], [place], [place], [place]) Address [address] [place] [address] Care Team Providers Care Software Programmer Name Role Phone Lalitha Linh Delilah DAVIS Primary Care Provider [phone] Lizzie Alves PA-C Unavailable [phone] Kaushik Mariscal MD Unavailable Encounter Details Date Type Department Care Team (Late st Contact Info) Description 07/19/2021 Transcribed Document [facility] [place] [address] [place] [address] ProviderChad MD [address] [place] [address] Social History Tobacco Use Types [...] : Yes Central Line Insertion Facility : [facility] Central Line Insertion Start Date/Time : 07/19/2021 9:02 EDT Central Catheter Type : Power injection PICC Central Line Lot Number : [id number] Central Line Vessel Cannulated : Basilic vein [...] : Yes Nurse Notified Name : Yvette Villagomez RN Broughton, Ruby, SRAAH - 07/19/2021 9:24 EDT Electronically signed by Rekha [facility] Conversion Gas Adjuster Cerner at 05/27/2022 9:12 PM CDT documented in this encounter Plan of Treatment Not on file documented as of this encounter Visit Diagnoses Not on filedocumented in this encounter Care Teams Software Programmer Relationship Specialty Start Date End Date Linh Doty DO [address] [facility] [address] [place] [address] PCP - General Family Medicine 11/04/22 Lizzie Alves PA-C [address] [facility], [facility] [address] [place] [address] Hospitalist Cardiology 05/27/23 Kaushik Mariscal MD [address] [facility] [address] [place] [address] Garbage Collector Electrophysiology 11/18/23 documented as of this encounter
--- OUTSIDE RECORDS SUMMARY | 2024-09-16 09:00 | XMS_ITS | Encounter Summary ---
Author Organization [employer] ([place], [place], [place], [place]) Address [address] [place] [address] Care Team Providers Care Aeronautical Design Engineer Name Role Phone Lalitha Linh Delilah DAVIS Primary Care Provider [phone] Lizzie Alves PA-C Unavailable [phone] Kaushik Mariscal MD Unavailable Encounter Details Date Type Department Care Team (Late st Contact Info) Description 07/23/2021 Transcribed Document [facility] [place] [address] [place] [address] ProviderChad MD [address] [place] [address] Social History Tobacco Use Types Packs/Day [...] 07/23/2021 18:55 EDT Electronically signed by Rekha [facility] Conversion Vice President Of Human Resources Cerner at 05/27/2022 8:59 PM CDT documented in this encounter Plan of Treatment Not on file documented as of this encounter Visit Diagnoses Not on filedocumented in this encounter Care Teams Aeronautical Design Engineer Relationship Specialty Start Date End Date Linh Doty, [address] [facility] [address] [place] [address] PCP - General Family Medicine 11/04/22 Lizzie Alves PA-C [address] [place] [address], [facility] [address] [place] [address] Hospitalist Cardiology 05/27/23 Kaushik Mariscal MD [address] [facility] [address] [place] [address] Diving Fisher Electrophysiology 11/18/23 documented as of this encounter
--- OUTSIDE RECORDS SUMMARY | 2024-09-16 09:00 | XMS_ITS | Encounter Summary ---
Author Organization [employer] ([place], [place], [place], [place]) Address [address] [place] [address] Care Team Providers Care Rn Corrections Name Role Phone Lalitha Linh Delilah DAVIS Primary Care Provider Lizzie Alves PA-C Unavailable [phone] Kaushki Mariscal MD Unavailable Encounter Details Date Type Department Care Team (Late st Contact Info) Description 07/22/2021 Transcribed Document [facility] [place] [facility] [place] [address] [place] [address] ProviderChad MD [address] [place] [address] Social History Tobacco Use Types Packs/Day Years Used Date Smoking Tobacco: Never Assessed Family and Community Support Answer Geremias e Recorded Help with Day to Day Activities Not on file 02/27/2023 Feeling Lonely or Isolated Not on file 02/27 Educational Attainment Answer Date Mendez rded Speak language other than Maltese at home Not on file 02/27/2023 Want [...] (Rocephin) - 2 Gram, IV Piggyback, Inj, [id number], infuse over 30 Minute(s), Routine DAPTOmycin + Sodium Chloride 0.9% intravenous solution 50 mL - 400 mg, IV Piggyback, Inj, [id number], infuse over 30 Minute(s), Routine Anticoagulant alteplase [...] No tenderness, No deformity. Integumentary: Warm, Dry, [place], No pallor, No rash, ICD site [...] 09) L 3.3 (MADELEINE 08) , ACC: [id number] ORDER: Culture Blood DATE: 07/16/2021 12:39 SOURCE: Blood SITE: Reports Final 07/21/2021 16:01 No growth at 5 days. Pre 07/20/2021 16:01 No growth at 4 days. Pre 07/19/2021 16:01 No growth at 3 days. Pre 07/18/2021 16:01 No growth at 2 days. Pre 07/17/2021 16:02 No growth at 1 day. Pre 07/17/2021 06:01 Culture less than 24 Hrs old == ACC: [id number] ORDER: Culture Blood DATE: 07/16/2021 12:39 SOURCE: Blood SITE: Reports Final 07/21/2021 16:01 No growth at 5 days. Pre 07/20/2021 16:01 No growth at 4 days. Pre 07/19/2021 16:01 No growth at 3 days. Pre 07/18/2021 16:01 No growth at 2 days. Pre 07/17/2021 16:02 No growth at 1 day. Pre 07/17/2021 06:01 Culture less than 24 Hrs old == ACC: [id number] ORDER: Culture Wound and Stain DATE: 07/17/2021 08:34 SOURCE: Wound SITE: Chest L Reports Final 07/20/2021 07:46 No growth Pre 07/18/2021 06:24 No growth GS 07/17/2021 14:09 No cells seen No organisms seen. == , Radiology Results (Last 48 hours) [id number] -- 07/16/2021 14:13 CR Chest 1 Vw [...] Weekly PICC dressing changes. Fax orders to [phone], call [phone] with final arrangements. Hold rosuvastatin while on daptomycin to decrease risk of rhabdomyolysis. Arrange for follow-up with me in 1 week post discharge. documented in this encounter Plan of Treatment Not on file documented as of this encounter Visit Diagnoses Not on filedocumented in this encounter Care Teams Rn Corrections Relationship Specialty Start Date End Date Linh Doty, DO [address] [place] [address] PCP - General Family Medicine 11/04/22 Lizzie Alves PA-C [address] [facility], [place] [address] [place] [address] Hospitalist Cardiology 05/27/23 Kaushik Mariscal MD [address] [facility] [address] [place] [address] Community Administrator Electrophysiology 11/18/23 documented as of this encounter
--- OUTSIDE RECORDS SUMMARY | 2024-09-16 09:00 | XMS_ITS | Encounter Summary ---
Author Organization [employer] ([place], [place], [place], [place]) Address [address] [place] [address] Care Team Providers Care Engineering Technical Analyst Name Role Phone Lalitha Linhkarthikeyan Mazariegos DO Primary Care Provider Lizzie Alves PA-C Unavailable [phone] Kaushik Mariscal MD Unavailable Encounter Details Date Type Department Care Team (Late st Contact Info) Description 07/02/2021 Transcribed Document [facility] Family Medicine [address] [place] [address] ProviderChad MD [address] [place] [address] Social History Tobacco Use Types Packs/Day [...] 07/02/2021 14:08 EDT Electronically signed by Rekha [facility] Conversion Reception Centre Manager Cerner at 05/27/2022 9:23 PM CDT documented in this encounter Plan of Treatment Not on file documented as of this encounter Visit Diagnoses Not on filedocumented in this encounter Care Teams Engineering Technical Analyst Relationship Specialty Start Date End Date Linh Doty, DO [address] [facility] [address] [place] [address] PCP - General Family Medicine 11/04/22 Lizzie Alves PA-C [address] [facility], [facility] [address] [place] [address] Hospitalist Cardiology 05/27/23 Kaushik Mariscal MD [address] [facility] [address] [place] [address] Reinforcing Rod Layer Electrophysiology 11/18/23 documented as of this encounter
--- OUTSIDE RECORDS SUMMARY | 2024-09-16 09:00 | XMS_ITS | Encounter Summary ---
Author Organization [employer] ([place], [place], [place], [place]) Address [address] [place] [address] Care Team Providers Care Exhauster Engineer Name Role Phone Lalitha Linhkarthikeyan Mazariegos DO Primary Care Provider [phone] Lizzie Alves PA-C Unavailable [phone] Dion Mariscal MD Unavailable Encounter Details Date Type Department Care Team (Late st Contact Info) Description 07/02/2021 Transcribed Document [facility] [place] [address] [place] [address] ProviderChad MD [address] [place] [address] Social History Tobacco Use Types Packs/Day Years Used Date Smoking Tobacco: Never Assessed Family and Community Support Answer Geremias e Recorded Help with Day to Day Activities Not on file 02/27/2023 Feeling Lonely or Isolated Not on file 02/27 Educational Attainment Answer Date Mendez rded Speak language other than Algerian at home Not on file 02/27/2023 Want [...] Historical ProviderMD - 07/02/2021 2:09 PM [place] [address] LENA MENDOZA :1965 Visit Time:07/01/2021 [...] EDT Comments wound device check Where: [address] [facility] [address] [place] [address]- Business (1) Follow Up with LINH WILLIAM DO-FAM When Within 2 to 3 days Comments left message for Dr William office to call pt with appt time. They were out for lunch Where: [address] [place] [address]- Medications What How Much When Instructions Next Dose acetaminophen-hydrocodone (acetaminophen-HYDROcodone 325 mg-5 mg oral tablet) 120 Each, TAKE ONE TABLET BY MOUTH EVERY 6 HOURS MAY CAUSE DROWSINESS cephalexin (Keflex 500 mg oral capsule) 1 Capsule(s) Oral Every 8 Hours Duration: 7 Day(s) [facility]up at [facility] [place] clopidogrel (Plavix 75 mg oral tablet) 1 [...] 1 Tablet(s) Oral At Bedtime Pharmacy Information [facility] [place]: [address] [facility] [address] [place], [place] [id number] [phone] Take your medications faithfully. Do NOT skip [...] Keep items that you use often in fojg-qu-cvugx places. Lower the shelves around your home [...] the way. ??? Do not use floor senegalese or wax that makes floors slippery. What [...] Control and Prevention, [place]AD[place]: www.cdc.gov ??? National [place] on Aging: www.delia.nih.gov Contact a doctor if: [...] provider. Document Revised: 08/29/2020 Document Reviewed: 08/29/2020 [employer] Patient Education ?? 2020 [employer] Sleep Apnea Sleep apnea affects breathing [...] ask your doctor. General instructions ??? Take csez-ttn-mqprfzf and prescription medicines only as told by [...] these instructions at home: Medicines ??? Take xurj-isl-yfaehmx and prescription medicines only as told by [...] and water are not available, use hand buffer chrome. ? Change your dressing as told by [...] your chest for several days. ??? Take znvw-xim-fltdser and prescription medicines only as told by [...] provider. Document Revised: 12/27/2018 Document Reviewed: 12/27/2018 [employer] Patient Education ?? 2020 [employer]. Emergency Awareness and Preventative Care STROKE is [...] Assistance with quitting is available by contacting 9-253-PJAP-NOW. This is a free resource providing counseling, [...] range between ( 0.0 and 7.0 ) Lajas #: 0.57 K/uL -- Normal range between ( 0.16 and 1.00 ) Eos #: 0.05 x10(3)/uL -- Normal range between ( 0.00 and 0.80 ) Lajas %: 6.9 % -- Normal range between [...] was given the opportunity to ask questions. Patient/Photoengraving Printer Name: Patient/Photoengraving Printer Signature: Relationship to Patient: Clinician/Hospital Photoengraving Printer Signature: Date: documented in this encounter Plan of Treatment Not on file documented as of this encounter Visit Diagnoses Not on filedocumented in this encounter Care Teams Exhauster Engineer Relationship Specialty Start Date End Date Linh William, DO [address] [facility] [address] [place] [address] PCP - General Family Medicine 11/04/22 Lizzie Alves PA-C [address] [place] [address], [facility] [address] [place] [address] Hospitalist Cardiology 05/27/23 Dion Mariscal MD [address] [facility] [address] [place] [address] Sample Card Maker Electrophysiology 11/18/23 documented as of this encounter
--- OUTSIDE RECORDS SUMMARY | 2024-09-16 09:00 | XMS_ITS | Encounter Summary ---
Author Organization [employer] ([place], [place], [place], [place]) Address [address] [place] [address] Care Team Providers Care Senior Data Architect Name Role Phone Lalitha Linhkarthikeyan Mazariegos DO Primary Care Provider [phone] Lizzie Alves PA-C Unavailable [phone] Kaushik Mariscal MD Unavailable Encounter Details Date Type Department Care Team (Late st Contact Info) Description 07/20/2021 Transcribed Document [facility] [place] [address] [place] [address] ProviderChad MD [address] [place] [address] Social History Tobacco Use Types [...] with bloody drainage. Patient was admitted to [facility] on 07/16/2021. Post generator change, patient [...] (Rocephin) - 2 Gram, IV Piggyback, Inj, [id number], infuse over 30 Minute(s), Routine DAPTOmycin + Sodium Chloride 0.9% intravenous solution 50 mL - 400 mg, IV Piggyback, Inj, [id number], infuse over 30 Minute(s), Routine Anticoagulant alteplase [...] No tenderness, No deformity. Integumentary: Warm, Dry, [place], No pallor, No rash, ICD site left [...] (JUL 08) 3.5 (JUL 07) , ACC: [id number] ORDER: Culture Wound and Stain DATE: 07/17/2021 08:34 SOURCE: Wound SITE: Chest L Reports Final 07/20/2021 07:46 No growth Pre 07/18/2021 06:24 No growth GS 07/17/2021 14:09 No cells seen No organisms seen. == [facility]: [id number] ORDER: Culture Blood DATE: 07/16/2021 12:39 SOURCE: Blood SITE: Reports Pre 07/19/2021 16:01 No growth at 3 days. Pre 07/18/2021 16:01 No growth at 2 days. Pre 07/17/2021 16:02 No growth at 1 day. Pre 07/17/2021 06:01 Culture less than 24 Hrs old == ACC: [id number] ORDER: Culture Blood DATE: 07/16/2021 12:39 SOURCE: [...] Weekly PICC dressing changes. Fax orders to [phone], call [phone] with final arrangements. Hold rosuvastatin while on daptomycin to decrease risk of rhabdomyolysis. Arrange for follow-up with me in 1 week post discharge. documented in this encounter Plan of Treatment Not on file documented as of this encounter Visit Diagnoses Not on filedocumented in this encounter Care Teams Senior Data Architect Relationship Specialty Start Date End Date Linh Doty, [address] [facility] [address] [place] [address] PCP - General Family Medicine 11/04/22 Lizzie Alves PA-C [address] [place] [address], [facility] [address] [place] [address] Hospitalist Cardiology 05/27/23 Kaushik Mariscal MD [address] [facility] [address] [place] [address] Joint Special Operations Electrophysiology 11/18/23 documented as of this encounter
--- OUTSIDE RECORDS SUMMARY | 2024-09-16 09:00 | XMS_ITS ---
Author Organization [facility] Care Team Providers Care Hotel Yardperson Name Role Phone Dodie Cummins Unavailable Unavailable Ludivina Retana Unavailable Unavailable Wen Chadwick Unavailable Unavailable Julieta Guardado Unavailable Allergies and adverse reactions No Known Allergies Care Team Name Role Address Phone Organization Dates Ludivina Retana PCP [address] [place] [address], [facility] (Office): [facility] 06/05/2023 - 06/22/2023 Dodie Cummins [address] (Office): : [facility] 06/05/2023 - 06/22/2023 Wen Chadwick [address] [place] [address] 06/05/2023 - 06/22/2023 Julieta Guardado [address] [place] [address] (Office): : [facility] 06/05/2023 - 06/22/2023 Immunizations Immunization Status Vaccine Details Vaccine Code CodeSystem Date Notes TB 2 Step Mantoux Skin Test completed tuberculin skin test; unspecified formulation lotNumber: [id number] expiry: 01/09/2025 Mfg: Aplisil 5 TU/0.1 ML//o Given 0.1 ml Left Forearm subcutaneously Step 2 of Multi-step with next step required 98 CVX created date: 06/13/2023 consent date: 06/13/2023 administere d date: 06/12/2023 TB 2 Step Mantoux Skin Test completed tuberculin skin test; unspecified formulation lotNumber: [id number] expiry: 01/09/2025 Mfg: Apisol 5tu/0.1ml Given 0.1 [...] CodeSystem Concern Status 1 UNSPECIFIED CONVULSIONS 06/08/[address] active 2 ACUTE AND CHRONIC RESPIRATORY FAILURE WITH HYPOXIA 06/05/[address] active 3 ACUTE ON CHRONIC COMBINED SYSTOLIC (CONGESTIVE) AND DIASTOLIC (CONGESTIVE) HEART FAILURE 06/05/[address] active 4 ALTERED MENTAL STATUS, UNSPECIFIED 06/05/[address] active 5 CARDIOGENIC SHOCK 06/05/[address] active 6 CARDIOMYOPATHY, UNSPECIFIED 06/05/[address] active 7 DEFECTS IN THE COMPLEMENT SYSTEM 06/05/[address] active 8 DIFFICULTY IN WALKING, NOT ELSEWHERE CLASSIFIED 06/05/[address] active 9 ESSENTIAL (PRIMARY) HYPERTENSION 06/05/[address] active 10 HEART FAILURE, UNSPECIFIED 06/05/[address] active 11 ISCHEMIC CARDIOMYOPATHY 06/05/[address] active 12 LEFT VENTRICULAR FAILURE, UNSPECIFIED 06/05/[address] active 13 NICOTINE DEPENDENCE, CIGARETTES, UNCOMPLICATED 06/05/[address] active 14 OTHER ABNORMALITIES OF GAIT AND MOBILITY 06/05/[address] active 15 OTHER SPECIFIED DISORDERS INVOLVING THE IMMUNE MECHANISM, NOT ELSEWHERE CLASSIFIED 06/05/[address] active 16 PRESENCE OF AUTOMATIC (IMPLANTABLE) CARDIAC DEFIBRILLATOR 06/05/[address] active 17 RESPIRATORY DISORDERS IN DISEASES CLASSIFIED ELSEWHERE 06/05/[address] active 18 RESPIRATORY FAILURE, UNSPECIFIED WITH HYPOXIA 06/05/[address] active 19 TYPE 2 DIABETES MELLITUS WITHOUT COMPLICATIONS 06/05/[address] active 20 UNSPECIFIED SEQUELAE OF OTHER CEREBROVASCULAR DISEASE 06/05/[address] active 21 UNSPECIFIED SYSTOLIC (CONGESTIVE) HEART FAILURE 06/05/[address] active 22 UNSTEADINESS ON FEET 06/05/[address] active 23 VENOUS INSUFFICIENCY (CHRONIC) (PERIPHERAL) 06/05/[address] active 24 WEAKNESS 06/05/[address] active Reason for Referral No Reasons for Referral Entered Social History Social History Observation Description Start Date End Date Code Code System Current Smoking Status Tobacco smoking consumption unknown 920996062 SNOMED CT Sex Assigned At Female 1965 62607-[address] [facility] Gender Identity Vital Signs Code Code System Vitals Name Values and Units Timing Information 63914-[address] [facility] Pain Level Value=0.0 06/21/2023 40770-[address] [facility] O2 % BldC Oximetry Value=94.0 Units= % 06/21/2023 9279-[address] [facility] Respiratory Rate Value=18.0 Units=/m in 06/21/2023 8462-[address] [facility] Blood Pressure-Diastolic Value=62 Un its=mmHg 06/21/2023 8480-[address] [facility] Blood Pressure-Systolic Lxraj=808 Un its=mmHg 06/21/2023 8310-[address] [facility] Body Temperature Value=97.2 Units= F 06/21/2023 8867-[address] [facility] Heart rate Value=68.0 Units=/min 01/2024 2339-[address] [facility] Blood Sugar Wcspf=737.0 Units=mg/dL 06/13/2023 83678-1 [facility] Weight Liqyl=375.8 Units=Lbs 03/2023 8302-[address] [facility] Height Value=67.0 Units=Inches 06/06/2023
--- OUTSIDE RECORDS SUMMARY | 2024-09-16 09:00 | XMS_ITS | Encounter Summary ---
Author Organization [employer] ([place], [place], [place], [place]) Address [address] [place] [address] Care Team Providers Care Dispute Specialist Name Role Phone Lalitha Linh Delilah DAVIS Primary Care Provider [phone] Lizzie Alves PA-C Unavailable [phone] Dion Mariscal MD Unavailable Encounter Details Date Type Department Care Team (Late st Contact Info) Description 07/02/2021 Transcribed Document [facility] [place] Counts include 234 beds at the [facility] [place] [address] ProviderChad MD [address] [place] [address] Social History Tobacco Use Types Packs/Day Years Used Date Smoking Tobacco: Never Assessed Family and Community Support Answer Geremias e Recorded Help with Day to Day Activities Not on file 02/27/2023 Feeling Lonely or Isolated Not on file 02/27 Educational Attainment Answer Date Mendez rded Speak language other than Barbadian at home Not on file 02/27/2023 Want [...] Historical ProviderMD - 07/02/2021 2:55 PM CDT [facility] [place] [address] LENA MENDOZA :1965 Visit Time:07/01/2021 [...] EDT Comments wound device check Where: [address] [facility] [address] [place] [address]- Business (1) Follow Up with LINH WILLIAM DO-FAM When Within 2 to 3 days Comments left message for Dr William office to call pt with appt time. They were out for lunch Where: [address] [place] [address]- Medications What How Much When Instructions Next Dose acetaminophen-hydrocodone (acetaminophen-HYDROcodone 325 mg-5 mg oral tablet) 120 Each, TAKE ONE TABLET BY MOUTH EVERY 6 HOURS MAY CAUSE DROWSINESS cephalexin (Keflex 500 mg oral capsule) 1 Capsule(s) Oral Every 8 Hours Duration: 7 Day(s) Pickup at [facility] clopidogrel (Plavix 75 mg oral tablet) 1 [...] Oral At Bedtime Pharmacy Information [facility] [place]: [address] [facility] [address] [place], [place] [address] [phone] Take your medications faithfully. Do NOT skip [...] Keep items that you use often in tbow-yi-llydw places. Lower the shelves around your home [...] the way. ??? Do not use floor uruguayan or wax that makes floors slippery. What [...] Control and Prevention, STEADI: www.cdc.gov ??? National [place] on Aging: www.delia.nih.gov Contact a doctor if: [...] provider. Document Revised: 08/29/2020 Document Reviewed: 08/29/2020 [employer] Patient Education ?? 2020 [employer] Inc. Sleep Apnea Sleep apnea affects breathing [...] ask your doctor. General instructions ??? Take xvcj-ocr-skoymuf and prescription medicines only as told by [...] these instructions at home: Medicines ??? Take gbya-bmn-dmrjphy and prescription medicines only as told by [...] and water are not available, use hand warp knit operator. ? Change your dressing as told [...] your chest for several days. ??? Take jkja-ytq-yfafiat and prescription medicines only as told by [...] provider. Document Revised: 12/27/2018 Document Reviewed: 12/27/2018 ElseAdvanced [employer] Logic Patient Education ?? 2020 [employer]. Emergency Awareness and Preventative Care STROKE is [...] Assistance with quitting is available by contacting 9-862-PBKJ-NOW. This is a free resource providing counseling, [...] range between ( 0.0 and 7.0 ) [place] #: 0.57 K/uL -- Normal range between ( 0.16 and 1.00 ) [place]os #: 0.05 x10(3)/uL -- Normal range between ( 0.00 and 0.80 ) [place] %: 6.9 % -- Normal range between [...] was given the opportunity to ask questions. Patient/Veterans' Counselor Name: Patient/Veterans' Counselor Signature: Relationship to Patient: Clinician/Hospital Veterans' Counselor Signature: Date: documented in this encounter Plan of Treatment Not on file documented as of this encounter Visit Diagnoses Not on filedocumented in this encounter Care Teams Dispute Specialist Relationship Specialty Start Date End Date Linh William, DO [address] [facility] [address] [place] [address] PCP - General Family Medicine 11/04/22 Lizzie Alves PA-C [address] [place] [address], [address] [place] [address] Hospitalist Cardiology 05/27/23 Dion Mariscal MD [address] [facility] [address] [place] [address] Zipper Slide Attacher Electrophysiology 11/18/23 documented as of this encounter
--- OUTSIDE RECORDS SUMMARY | 2024-09-16 09:00 | XMS_ITS | Encounter Summary ---
Author Organization [employer] ([place], [place], [place], [place]) Address [address] [place] [address] Care Team Providers Care Senior Administrator Support Name Role Phone Lalitha Linhkarthikeyan Mazariegos DO Primary Care Provider Lizzie Alves PA-C Unavailable [phone] Kuashik Mariscal MD Unavailable Encounter Details Date Type Department Care Team (Late st Contact Info) Description 07/20/2021 Transcribed Document [facility] Radiology [address] [id number] Yanick Torres MD [address] [place] [address] [place] [address] Social History Tobacco Use Types Packs/Day Years [...] mg, 8 mL, 116 mL/Hr, IV Piggyback, [id number] Florastor: 250 mg, Oral, BID Lasix: 20 mg, Oral, Daily MiraLax: 17 Gram, Oral, Daily, PRN: Constipation Normal Saline Flush: 10 mL, IntraCATHeter, Q12H Rocephin: 2 Gram, 100 mL/Hr, IV Piggyback, D78PIle Roxicodone: 5 mg, Oral, Q4H, PRN: Pain [...] 0 Refill(s) Rocephin: 2 Gram, IV Piggyback, A89ZMgu, 0 Refill(s) Vitamin D2 1.25 mg (50,000 intl units) oral capsule: 1 Cap, Oral, Weekly, 0 Refill(s) acetaminophen-HYDROcodone 325 mg-5 mg oral tablet: 1 Tab, Oral, Q8H, PRN: for pain, 0 Refill(s) carvedilol 12.5 mg oral tablet: 1 Tab, Oral, BID, 180 Tab, 0 Refill(s) fluticasone 50 mcg/inh nasal spray: 2 Aurora, Nasal, Daily, PRN: Nasal Congestion, 16 Gram, [...] BID fluticasone 50 mcg/inh nasal spray 2 Aurora, PRN, Nasal, Daily folic acid 1 mg [...] Oral, Daily Rocephin 2 Gram, IV Piggyback, W25DXxp topiramate 25 mg oral tablet 25 mg [...] Oral, BID cefTRIAXone 2 Gram, IV Piggyback, T84NGgn DAPTOmycin + NaCl 0.9% 50 mL 400 mg 8 mL, IV Piggyback, B23XHpy ergocalciferol 50,000 unit cap 50,000 Units 1 [...] At risk for sleep apnea / IMO 87826914 / Confirmed High cholesterol / SNOMED CT 66983213 / Confirmed Canceled: At risk for sleep apnea / IMO [id number] Canceled: COPD (chronic obstructive pulmonary disease) / SNOMED CT 58522074 Canceled: HTN (hypertension) / SNOMED CT 2287784500, Active Problems (12) Arteriosclerosis At risk for [...] gallop, S1+ S2 No S3 or S4 [place].. Gastrointestinal: Soft, Non-tender, Non-distended, Normal bowel sounds. [...] Weekly PICC dressing changes. Fax orders to [id number], c Hold rosuvastatin while on daptomycin to [...] filedocumented in this encounter Care Teams Senior Administrator Support Relationship Specialty Start Date End Date Linh Doty, DO 8 [facility] [address] [place] [address] PCP - General Family Medicine 11/04/22 Lizzie Alves PA-C [address] [place] [address], [facility] [address] [place] [address] Hospitalist Cardiology 05/27/23 Kaushik Mariscal MD [address] [facility] [address] [place] [address] Steam Shovel Operating Engineer Electrophysiology 11/18/23 documented as of this encounter
--- OUTSIDE RECORDS SUMMARY | 2024-09-16 09:00 | XMS_ITS | Encounter Summary ---
Author Organization [employer] ([place], [place], [place], [place]) Address [address] [place] [address] Care Team Providers Care Second Worker Name Role Phone Lalitha Linhkarthikeyan Mazariegos DO Primary Care Provider [phone] Lizzie Alves PA-C Unavailable [phone] Kaushik Mariscal MD Unavailable Encounter Details Date Type Department Care Team (Late st Contact Info) Description 07/02/[address] [facility] [place] Family Medicine [address] [place] [address] ProviderChad MD [address] [place] [address] Social History Tobacco Use Types Packs/Day [...] Keep items that you use often in zeja-qn-iedtp places. Lower the shelves around your home [...] Control and Prevention, STEADI: www.cdc.gov ??? National [place] on Aging: www.delia.nih.gov Contact a doctor if: [...] provider. Document Revised: 08/29/2020 Document Reviewed: 08/29/2020 [email or web address].[email or web address] Patient Education ? 2020 [employer]k Inc. ENT Sleep Apnea Sleep apnea affects [...] ask your doctor. General instructions ??? Take wcwm-clo-wuhvowm and prescription medicines only as told by [...] provider. Document Revised: 11/12/2018 Document Reviewed: 09/21/2018 [employer]k Patient Education ? 2020 Elsevier Inc. Procedures [...] these instructions at home: Medicines ??? Take etjr-shp-zijfquf and prescription medicines only as told by [...] and water are not available, use hand general laborer. ? Change your dressing as told by [...] your chest for several days. ??? Take midh-fvc-xzrujav and prescription medicines only as told by [...] provider. Document Revised: 12/27/2018 Document Reviewed: 12/27/2018 [employer] Patient Education ? 2020 [employer]. documented in this encounter Plan of Treatment Not on file documented as of this encounter Visit Diagnoses Not on filedocumented in this encounter Care Teams Second Worker Relationship Specialty Start Date End Date Linh Doty, DO 8 [facility] [address] [place] [address] PCP - General Family Medicine 11/04/22 Lizzie Alves PA-C 1401 [facility] [address] [place] [address] Hospitalist Cardiology 05/27/23 Kaushik Mariscal MD [address] [facility] [address] [place] [address] Parachute Officer Electrophysiology 11/18/23 documented as of this encounter
--- OUTSIDE RECORDS SUMMARY | 2024-09-16 09:00 | XMS_ITS | Encounter Summary ---
Author Organization [employer] ([place], [place], [place], [place]) Address [address] [place] [address] Care Team Providers Care Supervising Airplane Pilot Name Role Phone Lalitha Linhkarthikeyan Mazariegos DO Primary Care Provider [phone] Lizzie Alves PA-C Unavailable [phone] Kaushik Mariscal MD Unavailable Encounter Details Date Type Department Care Team (Late st Contact Info) Description 07/18/2021 Transcribed Document [facility] [place] [address] [place] [address] ProviderChad MD [address] [place] [address] Social History Tobacco Use Types Packs/Day [...] On: 07/18/2021 16:09 EDT by Mayra Vann Cpo Rn Care Management Progress Note Discharge Arrangements : Patient Post-Acute Information Patient Name: GAGAN MENDOZA Gender: Female : [birth year] Age: 55 Years No Post-Acute Placement(s) Listed No Post-Acute Service(s) Listed No Curaspan Referral(s) Listed Discharge Options Discussed with Patient : Acute rehabilitation, Discharge transportation, DME, Home Health, Outpatient services Patient Discharge Goal : Home Mayra Vann Cpo Rn - 07/18/2021 16:09 EDT Narrative Progress Note Narrative Progress Note : hd 2 low rar patient has orders from ID r/t iv abx and picc care but patient has no orders for PICC placement at this time, CM has reached out to ID. [facility]. patient will also need hh dcp- home with hh and iv abx Mayra Vann Cpo Rn - 07/18/2021 16:09 EDT documented in this encounter Plan of Treatment Not on file documented as of this encounter Visit Diagnoses Not on filedocumented in this encounter Care Teams Supervising Airplane Pilot Relationship Specialty Start Date End Date Linh Doty, DO 8 [facility] [address] [place] [address] PCP - General Family Medicine 11/04/22 Lizzie Alves PA-C [address] [place] [address], [facility] [address] [place] [address] Hospitalist Cardiology 05/27/23 Kaushik Mariscal MD [address] [facility] [address] [place] [address] Wool Batting Worker Electrophysiology 11/18/23 documented as of this encounter
--- OUTSIDE RECORDS SUMMARY | 2024-09-16 09:00 | XMS_ITS | Encounter Summary ---
Author Organization [employer] ([place], [place], [place], [place]) Address [address] [place] [address] Care Team Providers Care Motor Racer Name Role Phone Linh Doty DO Primary Care Provider [phone] Lizzie Alves PA-C Unavailable [phone] Kaushik Mariscal MD Unavailable Reason for Visit * Reason Comments Medication Refill Encounter Details Date Type Department Care Team (Late st Contact Info) Description 04/25/2023 Refill [facility] Cardiology [address] [place] [address] Lenka Benavidez MD 1401 [facility] [address] [place] [address] Atherosclerotic heart disease of [place] coronary artery without angina pectoris; Personal history [...] Visit Diagnoses Diagnosis 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
--- OUTSIDE RECORDS SUMMARY | 2024-09-16 09:01 | XMS_ITS | Encounter Summary ---
Author Organization [employer] ([place], [place], [place], [place]) Address [address] [place] [address] Care Team Providers Care Computer Salesperson Retail Name Role Phone Lalitha Linhkarthikeyan Mazariegos DO Primary Care Provider [phone] Lizzie Alves PA-C Unavailable [phone] Kaushik Mariscal MD Unavailable Encounter Details Date Type Department Care Team (Late st Contact Info) Description 07/22/2021 Transcribed Document [facility] Family Medicine [address] [place] [address] ProviderChad MD [address] [place] [address] Social History Tobacco Use Types Packs/Day [...] On: 07/22/2021 15:33 EDT by Bonita Katz, Senior Peoplesoft Developer Primary Insurance Authorization Authorization and Policy Numbers : Insurance 1 Health Plan: [employer] MANAGED MEDICARE Policy Number: [id number] Authorization Number: Insurance Primary Name : [facility] MANAGED MEDICARE Policy Number: [id number] Authorization Status-Primary : Admit approved Reference Number-Primary : [id number] Authorization Number-Primary : [id number] Number of Days Authorized-Primary : 5 Day(s) Authorized Service Begin Date-Primary : 07/16/2021 EDT Authorized Service End Date-Primary : 07/21/2021 EDT Historical Authorization Comments-Primary : Comment 1: PER PORTAL IP APPROVED FOR 07/16 UP TO BUT NOT INCLUDING 07/22 (Khushi Jones, Rn-Utilization Review 07/19/2021 13:56) Comment 2: UNDER REVIEW PER WC PORTAL (Khushi Jones, Rn-Utilization Review 07/19/2021 09:22) Comment 3: CLINICAL FAXED VIA [employer] (Khushi Jones, Rn-Utilization Review 07/17/2021 15:22) Comment 4: REF# PER GUME. CLINICAL FAXED VIA [employer] (Khushi Jones, Rn-Utilization Review 07/17/2021 15:17) Bonita Katz, Senior Peoplesoft Developer - 07/22/2021 15:33 EDT Electronically signed by Rekha [facility] Conversion Molding Fitter Cerner at 05/27/2022 9:22 PM CDT documented in this encounter Plan of Treatment Not on file documented as of this encounter Visit Diagnoses Not on filedocumented in this encounter Care Teams Computer Salesperson Retail Relationship Specialty Start Date End Date Linh Doty, DO [address] [place] [address] PCP - General Family Medicine 11/04/22 Lizzie Alves PA-C [address], [facility] [address] [place] [address] Hospitalist Cardiology 05/27/23 Kaushik Mariscal MD 1401 [facility] [place] [address] Button Inspector Electrophysiology 11/18/23 documented as of this encounter
--- OUTSIDE RECORDS SUMMARY | 2024-09-16 09:01 | XMS_ITS | Clinical Summary ---
Author Organization [facility] Address [address] [place] [address] Care Team Providers Care Photovoltaic Solar Cell Designer Name Role Phone Felicitas Melara APRN Primary Care Provider [phone] Allergies No known active allergies Medications albuterol [...] [facility] Res[facility] [address] [facility]nd [place] [address] Kia Humphries GC Encounter for nonprocreative genetic counseling (Primary Dx) 07/13/2024 Travel 07/06/2024 Telephone [facility] [address] [facility] 1st [place] [address] Kia Humphries GC Genetic Counseling Intake from Last 3 Months Immunizations Immunization Administration Dates Next Due Influenza, Injectable, MDCK, trivalent, PF 12/14 Influenza, injectable, MDCK, preservative free, quadrivalent 01/29/2021 PPD Skin Test (TB Skin Test) 06/12/2023,06/05/19 24 Tdap 01/29/2021 Zoster, Recombinant 02/27/2020 Family History [...] Recorded Patient Health Questionnaire-2 Score 0 05/30/2024 [facility] Long Key of Occupat ional Health - Occupational Stress [...] In the past 12 months has e electric, gas, oil, or water company [...] Description 11/30/2024 2:20 PM EDT Office Visit [facility] Endocrinology [address] [place] [address] Natalia Alves MD [address] [address] 12/08/2024 3:00 PM EDT Office Visit Medical Office Building Surgical [facility] [address] [facility], [address] [place] [address] Amish Escobedo MD [address] [facility] [address] [place] [address] Health Maintenance Due Date Last [...] UKY-Zoster Vaccines (2 of 2) 04/23/2020 02/27/2020 [id number] Vaccine (3 - 2023- season) 2023 12/22/2020, [...] Procedure Name Priority Date/Time Associated Diagnosis Comments DEXA BONE DENSITY Routine 12/18/2023 10:36 AM EST from Last 3 Months or Most Recently Relevant to Health Maintenance Results * Dexa Bone Density (12/18/2023 10:36 AM EST) Anatomical Region Laterality Modality L-spine Radiographic Carlee ging us Natalia Alves MD IMG DXA PROCEDURES Final Resul t from Last 3 Months or Most Recently Relevant to Health Maintenance Insurance [employer] Care Teams Photovoltaic Solar Cell Designer Relationship Specialty Start Date End Date Felicitas Melara APRN [address] [place] [address] PCP - General 01/29/24
--- OUTSIDE RECORDS SUMMARY | 2024-09-16 09:01 | XMS_ITS | Encounter Summary ---
Author Organization [employer] ([place], [place], [place], [place]) Address [address] [place] [address] Care Team Providers Care Identification And Records Commander Name Role Phone Lalitha Linhkarthikeyan Mazariegos DO Primary Care Provider [phone] Lizzie Alves PA-C Unavailable [phone] Dion Mariscal MD Unavailable Encounter Details Date Type Department Care Team (Late st Contact Info) Description 07/21/2021 Transcribed Document [facility] [address] [place] [address] ProviderChad MD [address] [place] [address] Social History Tobacco Use Types [...] - 07/21/2021 12:20 PM CDT Patient: GAGAN MENDZOA Age: 55 Years Sex: Female : 1965 [...] 3 mL, Nebulized Inhalation , Q8H ergocalciferol, 99857 Units= 1 Cap, Oral, Weekly Florastor, 250 [...] Man 47 % (High) 07/21/2021 04:12 EDT [place] Percent Man 3 % (Low) 07/21/2021 04:12 [...] on filedocumented in this encounter Care Teams Identification And Records Commander Relationship Specialty Start Date End Date Linh Doty, [address] [place] [address] PCP - General Family Medicine 11/04/22 Lizzie Alves PA-C [address], [facility] [address] [place] [address] Hospitalist Cardiology 05/27/23 Dion Mariscal MD 1401 [facility] [place] [address] Pit Shovel Operator Electrophysiology 11/18/23 documented as of this encounter
--- OUTSIDE RECORDS SUMMARY | 2024-09-16 09:01 | XMS_ITS | Encounter Summary ---
Author Organization [facility] ([place], [place], [place], [place]) Address [address] [place] [address] Care Team Providers Care Security Guard Name Role Phone Lalitha Linhkarthikeyan Mazariegos DO Primary Care Provider [phone] Lizzie Alves PA-C Unavailable [phone] Kaushik Mariscal MD Unavailable Encounter Details Date Type Department Care Team (Late st Contact Info) Description 07/21/2021 Transcribed Document [facility] [place] [address] [place] [address] ProviderChad MD [address] [place] [address] Social History Tobacco Use Types Packs/Day Years Used Date Smoking Tobacco: Never Assessed Family and Community Support Answer Geremias e Recorded Help with Day to Day Activities Not on file 02/27/2023 Feeling Lonely or Isolated Not on file 02/27 Educational Attainment Answer Date Mendez rded Speak language other than [place] at home Not on file 02/27/2023 Want [...] 07/21/2021 6:17 EDT Electronically signed by Rekha [place] Conversion Director Of Music Therapy Cerner at 05/27/2022 9:21 PM CDT documented in this encounter Plan of Treatment Not on file documented as of this encounter Visit Diagnoses Not on filedocumented in this encounter Care Teams Security Guard Relationship Specialty Start Date End Date Linh Doty, [address] [facility] [address] [place] [address] PCP - General Family Medicine 11/04/22 Lizzie Alves PA-C 1401 [facility], [facility] [address] [place] [address] Hospitalist Cardiology 05/27/23 Kaushik Mariscal MD 14[address] [facility] [address] [place] [address] Roll Coating Machine Operator Electrophysiology 11/18/23 documented as of this encounter
--- OUTSIDE RECORDS SUMMARY | 2024-09-16 09:01 | XMS_ITS | Encounter Summary ---
Author Organization [employer] ([place], [place], [place], [place]) Address [address] [place] [address] Care Team Providers Care Test Fixture Assembler Name Role Phone Lalitha Linhkarthikeyan Mazariegos DO Primary Care Provider [phone] Lizzie Alves PA-C Unavailable [phone] Kaushik Mariscal MD Unavailable Encounter Details Date Type Department Care Team (Late st Contact Info) Description 07/22/2021 Transcribed Document [facility] [place] [address] [place] [address] ProviderChad MD [address] [place] [address] Social History Tobacco Use Types Packs/Day [...] On: 07/22/2021 11:21 EDT by Mayra Vann Twister Hand Rn Care Management Progress Note Discharge Arrangements [...] Attend Multidisciplinary Rounds? : Yes Mayra Vann Twister Hand Rn - 07/22/2021 11:21 EDT Narrative Progress Note Narrative Progress Note : hd 6 elos 5 low rar patient has home abx arranged with [facility], planned for dc today however patient now to have AICD removed on 07/24 dcp- home ?iv abx after aicd removal Historical Progress Note : hd 3 elos 5 low rar [facility], [facility] to teach patient abx administration saturday 07/22. Per EP, plan to dc patient saturday 07/22. [place] for HH. Mayra Vann Twister Hand Rn - 07/19/21 13:36:36 hd 2 low rar patient has orders from ID r/t iv abx and picc care but patient has no orders for PICC placement at this time, CM has reached out to ID. home abx orders sent to [facility]. patient will also need hh dcp- home with hh and iv abx Mayra Vann Twister Hand Rn - 07/18/21 16:10:37 Mayra Vann Twister Hand Rn - 07/22/2021 11:21 EDT documented in this encounter Plan of Treatment Not on file documented as of this encounter Visit Diagnoses Not on filedocumented in this encounter Care Teams Test Fixture Assembler Relationship Specialty Start Date End Date Linh Doty, 8 [facility] [address] [place] [address] PCP - General Family Medicine 11/04/22 Lizzie Alves PA-C 1401 [facility] [place] [address] [place] [address] Hospitalist Cardiology 05/27/23 Kaushik Mariscal MD 14[address] [facility] [address] [place] [address] Wildlife Refuge Specialist Electrophysiology 11/18/23 documented as of this encounter
--- OUTSIDE RECORDS SUMMARY | 2024-09-16 09:01 | XMS_ITS | Encounter Summary ---
Author Organization [employer] ([place], [place], [place], [place]) Address [address] [place] [address] Care Team Providers Care Event Sales Manager Name Role Phone Lalitha Linh Delilah DAVIS Primary Care Provider [phone] Lizzie Alves PA-C Unavailable [phone] Kaushik Mariscal MD Unavailable Encounter Details Date Type Department Care Team (Late st Contact Info) Description 07/21/2021 Transcribed Document [facility] [place] Family Medicine [address] [place] [address] ProviderChad MD [address] [place] [address] Social History Tobacco Use Types Packs/Day [...] ELDER WILSON RN - 07/21/2021 1:13 EDT Electronically signed by Alberto Da Silva Conversion Voltage Regulator Assembler Cerner at 05/27/2022 9:05 PM CDT documented in this encounter Plan of Treatment Not on file documented as of this encounter Visit Diagnoses Not on filedocumented in this encounter Care Teams Event Sales Manager Relationship Specialty Start Date End Date Linh Doty, DO 8 [facility] [address] [place] [address] PCP - General Family Medicine 11/04/22 Lizzie Alves PA-C [address] [place] [address], [facility] [address] [place] [address] Hospitalist Cardiology 05/27/23 Kaushik Mariscal MD [address] [facility] [address] [place] [address] Manager Sql Electrophysiology 11/18/23 documented as of this encounter
--- OUTSIDE RECORDS SUMMARY | 2024-09-16 09:01 | XMS_ITS | Encounter Summary ---
Author Organization [email or web address] ([place], [place], [place], [place]) Address [address] [place] [address] Care Team Providers Care Freelance Operator Name Role Phone Lalitha Linhkarthikeyan Mazariegos DO Primary Care Provider [phone] Lizzie Alves PA-C Unavailable [phone] Dion Mariscal MD Unavailable Encounter Details Date Type Department Care Team (Late st Contact Info) Description 07/22/2021 Transcribed Document [facility] [place] Family Medicine [address] [place] [address] ProviderChad MD [address] [place] [address] Social History Tobacco Use Types Packs/Day [...] 3 mL, Nebulized Inhalation , Q8H ergocalciferol, 88192 Units= 1 Cap, Oral, Weekly Florastor, 250 [...] Push, Q4H, PRN Electronically signed by Rekha, [facility] Conversion Edging Machine Operator Cerner at 05/27/2022 9:03 PM CDT documented in this encounter Plan of Treatment Not on file documented as of this encounter Visit Diagnoses Not on filedocumented in this encounter Care Teams Freelance Operator Relationship Specialty Start Date End Date Linh Doty DO 8 [facility] [address] [place] [address] PCP - General Family Medicine 11/04/22 Lizzie Alves PA-C [address] [place] [address], [facility] [address] [place] [address] Hospitalist Cardiology 05/27/23 Dion Mariscal MD 14[address] [facility] [address] [place] [address] Packaging Technician Electrophysiology 11/18/23 documented as of this encounter
--- OUTSIDE RECORDS SUMMARY | 2024-09-16 09:01 | XMS_ITS | Encounter Summary ---
Author Organization [employer] ([place], [place], [place], [place]) Address [address] [place] [address] Care Team Providers Care Behavioral Consultant Name Role Phone Lalitha Linhkarthikeyan Mazariegos DO Primary Care Provider [phone] Lizzie Alves PA-C Unavailable [phone] Kaushik Mariscal MD Unavailable Encounter Details Date Type Department Care Team (Late st Contact Info) Description 07/22/2021 Transcribed Document [facility] [place] [address] [place] [address] ProviderChad MD [address] [place] [address] Social History Tobacco Use Types Packs/Day [...] 07/22/2021 7:47 EDT Electronically signed by Rekha [facility] Conversion Nursing Administrator Cerner at 05/27/2022 9:08 PM CDT documented in this encounter Plan of Treatment Not on file documented as of this encounter Visit Diagnoses Not on filedocumented in this encounter Care Teams Behavioral Consultant Relationship Specialty Start Date End Date Linh Doty, DO 8 [facility] [address] [place] [address] PCP - General Family Medicine 11/04/22 Lizzie Alves PA-C [address] [place] [address], [facility] [address] [place] [address] Hospitalist Cardiology 05/27/23 Kaushik Mariscal MD 1401 [facility] [address] [place] [address] Mail Deliverer Electrophysiology 11/18/23 documented as of this encounter
--- OUTSIDE RECORDS SUMMARY | 2024-09-16 09:01 | XMS_ITS | Encounter Summary ---
Author Organization [employer] ([place], [place], [place], [place]) Address [address] [place] [address] Care Team Providers Care Microsoft Bi Architect Name Role Phone Lalitha Linhkarthikeyan Mazariegos DO Primary Care Provider [phone] Lizzie Alves PA-C Unavailable [phone] Kaushik Mariscal MD Unavailable Encounter Details Date Type Department Care Team (Late st Contact Info) Description 07/22/2021 Transcribed Document [facility] [place] Family Medicine [address] [place] [address] ProviderChad MD [address] [place] [address] Social History Tobacco Use Types Packs/Day [...] Policy Numbers : Insurance 1 Health Plan: [employer] MANAGED MEDICARE Policy Number: [id number] Authorization Number: Insurance Primary Name : [facility] MANAGED MEDICARE Policy Number: [id number] Authorization Status-Primary : Admit approved Reference Number-Primary : [id number] Authorization Number-Primary : [id number] Number of Days Authorized-Primary : 5 Day(s) Authorized Service Begin Date-Primary : 07/16/2021 EDT Authorized Service End Date-Primary : 07/21/2021 EDT Authorization Comments-Primary : 07/20-07/22 CLINICALS FAXED VIA [employer] Historical Authorization Comments-Primary : Comment 1: PER PORTAL IP APPROVED FOR 07/16 UP TO BUT NOT INCLUDING 07/22 (Khushi Jones Rn-Utilization Review 07/19/2021 13:56) Comment 2: UNDER REVIEW PER WC PORTAL (Khushi Jones Rn-Utilization Review 07/19/2021 09:22) Comment 3: CLINICAL FAXED VIA [employer] (Khushi Jones Rn-Utilization Review 07/17/2021 15:22) Comment 4: REF# PER [employer]. CLINICAL FAXED VIA [employer] (Khushi Jones Rn-Utilization Review 07/17/2021 15:17) EZEKIEL PHILLIPS RN - 07/22/2021 16:49 EDT Electronically signed by Alberto Da Silva Conversion Continuous Pickling Line Pickler Helper Cerner at 05/27/2022 9:05 PM CDT documented in this encounter Plan of Treatment Not on file documented as of this encounter Visit Diagnoses Not on filedocumented in this encounter Care Teams Microsoft Bi Architect Relationship Specialty Start Date End Date Linh Doty DO [address] [place] [address] PCP - General Family Medicine 11/04/22 Lizzie Alves PA-C [address], [facility] [address] [place] [address] Hospitalist Cardiology 05/27/23 Kaushik Mariscal MD 1401 [facility] [address] [place], [place] [id number] Stopboard Assembler Electrophysiology 11/18/23 documented as of this encounter
--- NOTE | 2024-09-16 09:30 | CT_ITS ---
FINAL REPORT CLINICAL HISTORY: .BONE MARROW BIOPSY FOR ABNORMAL LABS FINDINGS: CT GUIDED BONE MARROW BIOPSY HISTORY: Anemia ATTENDING PHYSICIAN: Dr. Diggs PHYSICIAN CONTRACTS DIRECTOR: Juan Cazares PA-C PROCEDURE: This study was performed with techniques to keep radiation doses as low as reasonably achievable, (ALARA). Individualized dose reduction techniques using automated exposure control or adjustment of mA and/or kV according to the patient size were employed. After informed consent was obtained and a timeout was performed, the patient was prepped and draped in usual sterile fashion over the posterior superior iliac spine. Utilizing local anesthesia and sterile technique with a bone marrow biopsy system, access to marrow was obtained. Both marrow aspirates and marrow core biopsy passes were made. The patient received mild procedural sedation. The patient tolerated the procedure well and left the department in good condition. IMPRESSION: Status post CT guided bone marrow biopsy without immediate complication. PROCEDURAL SEDATION: 2 mg of IV Versed and 50 mcg of Fentanyl were administered. Continuous vital sign monitoring was used. An RN was present during the sedation process. Overall sedation time was 15 minutes. Images reviewed, interpreted, and dictated by Dr. Clark Diggs. Transcribed by Juan Cazares PA-C. Reviewed, Interpreted and Dictated by Clark Diggs MD Transcribed by ABEL Olivera Authenticated and . [facility]
[2024-09-16 09:54] LABS: Hematocrit 52.8 % (37.0-47.0); Hemoglobin 17.0 g/dL (12.2-16.2); Immature Granulocytes % 0.7 %; Mean Corpuscular HGB Conc 32.2 g/dL (31.8-35.4); Mean Corpuscular Hemoglobin 31.3 pg (27.0-31.2); Mean Corpuscular Volume 97.2 fl (81-99); Nucleated Red Blood Cells % 0 %; Platelet Count 73 K/mm3 (142-424); Red Blood Count 5.43 M/mm3 (4.20-5.40); Red Cell Distribution Width-SD 52.1 fL; White Blood Count 10.8 K/mm3 (4.8-10.8)
[2024-09-16 09:59] LABS: INR 1.09 (0.9-1.1); Prothrombin Time 12.0 seconds (10.1-12.5)
== END 2024-09-16 13:05 | disposition home or self-care (01) ==
PROVIDERS: PCP Nurse Practitioner Family; Visit Provider Internal Medicine Medical Oncology
DX: D69.6 Thrombocytopenia, unspecified (principal)
CPT/HCPCS: 38221; 77012; 85025; 85610; 99152; J2250; J3010

== ENCOUNTER 2024-09-27 09:18 | Outpatient (CLI) | payer MEDICARE, SELFPAY ==
--- OUTSIDE RECORDS SUMMARY | 2024-08-15 05:00 | XMS_ITS | Encounter Summary ---
Author Organization [employer] ([place], [place], [place], [place]) Address [address] [place] [address] Care Team Providers Care Weeder Name Role Phone Lalitha Linh Delilah DAVIS Primary Care Provider [phone] Lizzie Alves PA-C Unavailable [phone] Kaushik Mariscal MD Unavailable Reason for Visit * Reason Comments Pacemaker /ICD Home Monitoring Encounter Details Date Type Department Care Team (Late st Contact Info) Description 08/15/2024 5:00 AM EDT Clinical Support [facility] Electrophysiology [address] [place] [address] Kaushik Mariscal MD [address] [facility] [address] [place] [address] Encounter for adjustment or management of cardiac [...] Date Mendez rded Speak language other than [place] Islander at home Not on file 02/27/2023 Want [...] (HCC) documented in this encounter Care Teams Weeder Relationship Specialty Start Date End Date Linh Doty, 8 [facility] [address] [place] [address] PCP - General Family Medicine 11/04/22 Lizzie Alves PA-C 1401 [facility], [facility] [address] [place] [address] Hospitalist Cardiology 05/27/23 Kaushik Mariscal MD [address] [facility] [address] [place] [address] Maintenance Shop Laborer Electrophysiology 11/18/23 documented as of this encounter
--- OUTSIDE RECORDS SUMMARY | 2024-09-15 03:00 | XMS_ITS | Encounter Summary ---
Author Organization [employer] ([place], [place], [place], [place]) Address [address] [place] [address] Care Team Providers Care Energy Trader Name Role Phone Lalitha Linh Delilah DAVIS Primary Care Provider [phone] Lizzie Alves PA-C Unavailable [phone] Kaushik Mariscal MD Unavailable Reason for Visit * Reason Comments Pacemaker /ICD Home Monitoring Encounter Details Date Type Department Care Team (Late st Contact Info) Description 09/15/2024 3:00 AM EDT Clinical Support [facility] Electrophysiology [address] [place] [address] Kaushik Mariscal MD 14[address] [facility] [address] [place] [address] Encounter for adjustment or management of cardiac [...] (HCC) documented in this encounter Care Teams Energy Trader Relationship Specialty Start Date End Date Linh Doty, 8 [facility] [address] [place] [address] PCP - General Family Medicine 11/04/22 Lizzie Alves PA-C [address] [facility], [facility] [address] [place] [address] Hospitalist Cardiology 05/27/23 Kaushik Mariscal MD 14[address] [facility] [address] [place] [address] Cotton Classer Electrophysiology 11/18/23 documented as of this encounter
[2024-09-27 12:45] LABS: Alanine Aminotransferase 12 U/L (12-78); Albumin Level 4.8 g/dl (3.5-5.0); Albumin/Globulin Ratio 1.5 (1.1-1.8); Alkaline Phosphatase 126 U/L (38-126); Anion Gap 15.2 mEq/L (5-15); Aspartate Amino Transferase 32 U/L (14-36); Bilirubin,Total 0.6 mg/dl (0.2-1.3); Blood Urea Nitrogen 21 mg/dl (7-17); Calcium 10.8 mg/dl (8.4-10.2); Carbon Dioxide 28 mmol/L (22.0-30.0); Chloride 98 mmol/L (98-107); Creatinine,Serum 1.20 mg/dl (0.52-1.04); Estimated Glomerular Filt Rate 46 ml/min (>60); GFR (African American) 55 ML/MIN (>60); Globulin 3.3 g/dL (1.3-3.2); Glucose 67 mg/dl (74-100); Magnesium 1.8 mg/dl (1.6-2.3); Potassium 5.2 mmoL/L (3.5-5.1); Sodium 136 mmol/L (136-145); Total Protein,Serum 8.1 g/dl (6.3-8.2)
[2024-09-27 13:03] LABS: 25-OH Vitamin D, Total 33.6 ng/mL (30-100)
[2024-09-27 13:16] LABS: Thyroid Stimulating Hormone 1.36 uIU/mL (0.465-4.68)
[2024-09-27 16:20] LABS: Hemoglobin A1C 5.7 % (4.0-6.0)
--- OUTSIDE RECORDS SUMMARY | 2024-09-28 11:02 | XMS_ITS | Encounter Summary ---
Author Organization [employer] ([place], [place], [place], [place]) Address [address] [place] [address] Care Team Providers Care Doughnut Glazier Name Role Phone Lalitha Linhkarthikeyan Mazariegos DO Primary Care Provider [phone] Lizzie Alves PA-C Unavailable [phone] Kaushik Mariscal MD Unavailable Encounter Details Date Type Department Care Team (Late st Contact Info) Description 08/27/2021 Transcribed Document [facility] [place] [address] [place] [address] ProviderChad MD [address] [place] [address] Social History Tobacco Use Types [...] Fats and oils Meat fat, or shortening. [place] butter, hydrogenated oils, palm oil, coconut oil, [...] provider. Document Revised: 04/01/2018 Document Reviewed: 03/05/2018 [employer] Patient Education ? 2020 [employer]. Pharmacology General Anesthesia, Adult, Care After This [...] activities are safe for you. ??? Take vasw-fae-gmdegii and prescription medicines only as told by [...] provider. Document Revised: 10/11/2020 Document Reviewed: 05/10/2020 [employer] Patient Education ? 2020 [employer] Procedures Pacemaker Implantation, Adult, Care After [...] these instructions at home: Medicines ??? Take lbfa-pxe-jjiaceg and prescription medicines only as told by [...] or bruising over the incision. ??? Take ghdt-pyn-htqekoq and prescription medicines only as told by [...] provider. Document Revised: 12/28/2019 Document Reviewed: 12/28/2019 [employer] Patient Education ? 2020 [employer]. Electronically signed by Reyna Da Silva Conversion Independent Marketing Consultant Cerner at 05/27/2022 9:02 PM CDT documented in this encounter Plan of Treatment Not on file documented as of this encounter Visit Diagnoses Not on filedocumented in this encounter Care Teams Doughnut Glazier Relationship Specialty Start Date End Date Linh Doty, [address] [facility] [address] [place] [address] PCP - General Family Medicine 11/04/22 Lizzie Alves PA-C [address] [facility], [email or web address] [address] [place] [address] Hospitalist Cardiology 05/27/23 Kaushik Mariscal MD 1401 [facility] [address] [place] [address] Sterile Tech Electrophysiology 11/18/23 documented as of this encounter
--- OUTSIDE RECORDS SUMMARY | 2024-09-28 11:02 | XMS_ITS | Encounter Summary ---
Author Organization [employer] ([place], [place], [place], [place]) Address [address] [place] [address] Care Team Providers Care Biodiesel Processing Technician Name Role Phone Lalitha Linhkarthikeyan Mazariegos DO Primary Care Provider [phone] Lizzie Alves PA-C Unavailable [phone] Kaushik Mariscal MD Unavailable Encounter Details Date Type Department Care Team (Late st Contact Info) Description 08/27/2021 Transcribed Document [facility] [place] Family Medicine [address] [place] [address] ProviderChad MD [address] [place] [address] Social History Tobacco Use Types [...] Policy Numbers : Insurance 1 Health Plan: [employer] MANAGED MEDICARE Policy Number: [id number] Authorization Number: [id number] Insurance Primary Name : [facility] MANAGED MEDICARE Policy Number: [id number] Authorization Number-Primary : [id number] Authorized Service Begin Date-Primary : 08/26/2021 EDT Historical Authorization Comments-Primary : No Authorization Comments Found EZEKIEL PHILLIPS RN - 08/27/2021 11:52 EDT Electronically signed by Rekha [facility] Conversion Metal Rolling Mill Operator Cerner at 05/27/2022 8:58 PM CDT documented in this encounter Plan of Treatment Not on file documented as of this encounter Visit Diagnoses Not on filedocumented in this encounter Care Teams Biodiesel Processing Technician Relationship Specialty Start Date End Date Linh Doty, 8 [facility] [address] [place] [address] PCP - General Family Medicine 11/04/22 Lizzie Alves PA-C [address] [place] [address] [address] [place] [address] Hospitalist Cardiology 05/27/23 Kaushik Mariscal MD [address]01 [facility] [address] [place] [address] Linseed Cake Trimmer Electrophysiology 11/18/23 documented as of this encounter
--- OUTSIDE RECORDS SUMMARY | 2024-09-28 11:02 | XMS_ITS | Encounter Summary ---
Author Organization [email or web address] ([place], [place], [place], [place]) Address [address] [place] [address] Care Team Providers Care Blood Bank Credit Clerk Name Role Phone Lalitha Linhkarthikeyan Mazariegos DO Primary Care Provider [phone] Lizzie Alves PA-C Unavailable [phone] Kaushik Mariscal MD Unavailable Encounter Details Date Type Department Care Team (Late st Contact Info) Description 08/26/2021 Transcribed Document [facility] [place] Family Medicine [address] [place] [address] ProviderChad MD [address] [place] [address] Social History Tobacco Use Types Packs/Day [...] Support Person/Pt Rep Name : Tereso Coffey [phone] Want Family/Rep/Phys Notified of Admit : No Emergency Contact #1 : na Emergency Contact #1 Phone Number : na Emergency Contact #1 Relationship : na Emergency Contact #2 : na Emergency Contact #2 Phone Number : na Emergency Contact #2 Relationship : na Primary Language : Belizean Preferred Communication Mode : Verbal Communication Barrier : None Cvt Rn Needed : No ABBIE MANDUJANO RN - [...] Scale Risk Level : 0-24 Low Risk [place] Fall Interventions : Bed in low position, [...] Source : Stated Height Entry Format : [place] Height, Feet : 5 ft(Converted to: 152 cm, 60 Inch) Height, Inches : 6 Inch(Converted to: 0 ft 6 Inch, 15.24 cm) Clinical Height : 167.64 cm Weight Source : Standing scale Weight Entry Format : [place] Clinical Dosing Weight : 64.55 kg Weight, Pounds : 142 lb Body Surface Area (BSA) : 1.73 m2 Body Mass Index : 23 kg/m2 [place] Body Weight : 59 kg ABBIE MANDUJANO [...] ABBIE MANDUJANO RN - 08/26/2021 13:22 EDT [place] Suicide Severity Rating Scale (C-SSRS) CSSRS Past [...] on filedocumented in this encounter Care Teams Blood Bank Credit Clerk Relationship Specialty Start Date End Date Linh Doty, DO 8 [facility] [address] [place] [address] PCP - General Family Medicine 11/04/22 Lizzie Alves PA-C [address] [place] [address], [facility] [address] [place] [address] Hospitalist Cardiology 05/27/23 Kaushik Mariscal MD 1401 [facility] [address] [place] [address] Meter Installer Electrophysiology 11/18/23 documented as of this encounter
--- OUTSIDE RECORDS SUMMARY | 2024-09-28 11:02 | XMS_ITS | Encounter Summary ---
Author Organization [employer] ([place], [place], [place], [place]) Address [address] [address] Care Team Providers Care Radar Signal Processing Engineer Name Role Phone Lalitha Linh Delilah DAVIS Primary Care Provider [phone] Lizzie Alves PA-C Unavailable [phone] Kaushik Mariscal MD Unavailable Encounter Details Date Type Department Care Team (Late st Contact Info) Description 08/27/2021 Transcribed Document [facility] [place] Family Medicine [address] [place] [address] ProviderChad MD [address] [place] [address] Social History Tobacco Use Types [...] 08/27/2021 9:35 EDT Electronically signed by Rekha [facility] Conversion Executive Housekeeper Cerner at 05/27/2022 9:00 PM CDT documented in this encounter Plan of Treatment Not on file documented as of this encounter Visit Diagnoses Not on filedocumented in this encounter Care Teams Radar Signal Processing Engineer Relationship Specialty Start Date End Date Linh Doty, 8 [facility] [address] [place] [address] PCP - General Family Medicine 11/04/22 Lizzie Alves PA-C 1401 [facility], [facility] [address] [place] [address] Hospitalist Cardiology 05/27/23 Kaushik Mariscal MD 1401 [facility] [address] [place] [address] Feed Blender Electrophysiology 11/18/23 documented as of this encounter
--- OUTSIDE RECORDS SUMMARY | 2024-09-28 11:02 | XMS_ITS | Encounter Summary ---
Author Organization [employer] ([place], [place], [place], [place]) Address [address] [place] [address] Care Team Providers Care Commercial Lines Assistant Name Role Phone Lalitha Linhkarthikeyan Mazariegos DO Primary Care Provider [phone] Lizzie Alves PA-C Unavailable [phone] Kaushik Mariscal MD Unavailable Encounter Details Date Type Department Care Team (Late st Contact Info) Description 08/27/2021 Transcribed Document [facility] [place] Family Medicine [address] [place] [address] ProviderChad MD [address] [place] [address] Social History Tobacco Use Types [...] 08/27/2021 13:06 EDT Electronically signed by Rekha [facility] Conversion Gettering Operator Cerner at 05/27/2022 9:02 PM CDT documented in this encounter Plan of Treatment Not on file documented as of this encounter Visit Diagnoses Not on filedocumented in this encounter Care Teams Commercial Lines Assistant Relationship Specialty Start Date End Date Linh Doty, DO 8 [facility] [address] [place] [address] PCP - General Family Medicine 11/04/22 Lizzie Alves PA-C 1401 [facility], [facility] [address] [place] [address] Hospitalist Cardiology 05/27/23 Kaushik Mariscal MD 1401 [facility] [address] [place] [address] Burrer Operator Electrophysiology 11/18/23 documented as of this encounter
--- OUTSIDE RECORDS SUMMARY | 2024-09-28 11:02 | XMS_ITS | Encounter Summary ---
Author Organization [employer] ([place], [place], [place], [place]) Address [address] [place] [address] Care Team Providers Care Union Organizer Name Role Phone Lalitha Linhkarthikeyan Mazariegos DO Primary Care Provider [phone] Lizzei Alves PA-C Unavailable [phone] Dion Mariscal MD Unavailable Encounter Details Date Type Department Care Team (Late st Contact Info) Description 08/27/2021 Transcribed Document [facility] Family Medicine [address] [place] [address] ProviderChad MD [address] [place] [address] Social History Tobacco Use Types Packs/Day Years Used Date Smoking Tobacco: Never Assessed Family and Community Support Answer Geremias e Recorded Help with Day to Day Activities Not on file 02/27/2023 Feeling Lonely or Isolated Not on file 02/27 Educational Attainment Answer Date Mendez rded Speak language other than Cape Verdean at home Not on file 02/27/2023 Want [...] Historical ProviderMD - 08/27/2021 12:41 PM CDT [facility] [place] [address] LENA MENDOZA :1965 Visit Time:08/26/2021 Your [...] Bring discharge instructions with you Where: [address] [facility] [address] [place] [address]- Follow Up with LINH WILLIAM DO-FAM When 09/04/2021 10:00 AM EDT Comments PCP appt made, Bring discharge instructions with you Where: [address] [address]- Follow Up with DION MARISCAL When 09/03/2021 02:00 PM EDT Comments wound device check in 1 week scheduled for 09/03/2021 at [address] Mariscal Where: [address] [facility] [address] [place] [address]- Business (1) Medications What How Much When Instructions Next Dose cephalexin (Keflex 500 mg oral capsule) 1 Capsule(s) Oral Three Times A Day Duration: 7 Day(s) Pickup at [facility] [place] this afternoon and evening nicotine (nicotine 14 mg/ 24 hr transdermal film, extended release) 1 Patch(es) TransDermal Every Day Duration: 14 Day(s) Pickup at [facility] tomorrow acetaminophen-hydrocodone (acetaminophen-HYDROcodone 325 mg-5 mg oral tablet) 1 Tablet(s) Oral Every 8 Hours as needed for for pain as needed carvedilol (carvedilol 12.5 mg oral tablet) 1 Tablet(s) Oral Two Times A Day this evening ergocalciferol (Vitamin D2 1.25 mg (50,000 intl units) oral capsule) 1 Capsule(s) Oral Weekly check your schedule fluticasone nasal (fluticasone 50 mcg/ inh nasal spray) 2 [place](s) Nasal Every Day as needed for Nasal [...] Oral At Bedtime at bedtime Pharmacy Information [facility] [place]: [address] [facility] [address] [place], [place] [id number] [phone] Take your medications faithfully. Do NOT skip [...] these instructions at home: Medicines ??? Take vvwc-svf-dpmvduc and prescription medicines only as told by [...] or bruising over the incision. ??? Take biap-kod-ffmeokt and prescription medicines only as told by [...] provider. Document Revised: 12/28/2019 Document Reviewed: 12/28/2019 [employer] Patient Education ?? 2021 [employer]. General Anesthesia, Adult, Care After This [...] activities are safe for you. ??? Take mykq-zwl-fyanarx and prescription medicines only as told by [...] provider. Document Revised: 10/11/2020 Document Reviewed: 05/10/2020 [employer] Patient Education ?? 2020 [employer]. Heart-Healthy Eating Plan Heart-healthy meal planning includes: [...] Fats and oils Meat fat, or shortening. Denio butter, hydrogenated oils, palm oil, coconut oil, [...] provider. Document Revised: 04/01/2018 Document Reviewed: 03/05/2018 [employer] Patient Education ?? 2020 [employer]. nicotine (transdermal) (AMADA [place] teen) HabitBelkis casanova [...] may report side effects to FDA at 5-876-PXY-3483. What other drugs will affect nicotine? Other drugs may affect nicotine transdermal, including prescription and xtox-hmd-uhwxytp medicines, vitamins, and herbal products. Tell your [...] to ensure that the information provided by [employer]. ('Mult[employer]') is accurate, up-to-date, and complete, but no guarantee is made to that effect. Drug information contained herein may be time sensitive. [employer] information has been compiled for use by healthcare practitioners and consumers in the [place] and therefore [employer] does not warrant that uses outside of the [place] are appropriate, unless specifically indicated otherwise. [employer] drug information does not endorse drugs, diagnose patients or recommend therapy. [employer] drug information is an informational resource designed [...] effective or appropriate for any given patient. [employer] does not assume any responsibility for any aspect of healthcare administered with the aid of information [employer] provides. The information contained herein is not intended to cover all possible uses, directions, precautions, warnings, drug interactions, allergic reactions, or adverse effects. If you have questions about the drugs you are taking, check with your doctor, nurse or pharmacist. Copyright 0849-2942 [employer]. Version: 3.01. Revision Date: 09/16/2018. cephalexin (sef [...] may report side effects to FDA at 5-783-TSL-9056. What other drugs will affect cephalexin? Tell your doctor about all your other medicines, especially: ?? metformin; or ?? probenecid. This list is not complete. Other drugs may affect cephalexin, including prescription and uxrv-ryn-wpvlsae medicines, vitamins, and herbal products. Not all [...] to ensure that the information provided by [employer]. ('[employer]') is accurate, up-to-date, and complete, but no guarantee is made to that effect. Drug information contained herein may be time sensitive. [employer] information has been compiled for use by healthcare practitioners and consumers in the [place] and therefore [employer] does not warrant that uses outside of the [place] are appropriate, unless specifically indicated otherwise. [employer] drug information does not endorse drugs, diagnose patients or recommend therapy. [employer] drug information is an informational resource designed [...] effective or appropriate for any given patient. [employer] does not assume any responsibility for any aspect of healthcare administered with the aid of information [employer] provides. The information contained herein is not intended to cover all possible uses, directions, precautions, warnings, drug interactions, allergic reactions, or adverse effects. If you have questions about the drugs you are taking, check with your doctor, nurse or pharmacist. Copyright 4431-3947 [employer]. Version: 10.03. Revision Date: 02/13/2020. Emergency Awareness [...] Assistance with quitting is available by contacting 2-056-RJMN-NOW. This is a free resource providing counseling, [...] range between ( 0.0 and 7.0 ) [place] #: 0.62 K/uL -- Normal range between ( 0.16 and 1.00 ) Eos #: 0.21 x10(3)/uL -- Normal range between ( 0.00 and 0.80 ) [place] %: 6.9 % -- Normal range between [...] was given the opportunity to ask questions. Patient/Developmental Psychologist Name: Patient/Developmental Psychologist Signature: Relationship to Patient: Clinician/Hospital Developmental Psychologist Signature: Date: documented in this encounter Plan of Treatment Not on file documented as of this encounter Visit Diagnoses Not on filedocumented in this encounter Care Teams Union Organizer Relationship Specialty Start Date End Date Linh William, DO [address] [place] [address] PCP - General Family Medicine 11/04/22 Lizzie Alves PA-C [address] [place] [address], [facility] [address] [place] [address] Hospitalist Cardiology 05/27/23 Dion Mariscal MD [address] [facility] [address] [place] [address] Lawyer Probate Electrophysiology 11/18/23 documented as of this encounter
--- OUTSIDE RECORDS SUMMARY | 2024-09-28 11:02 | XMS_ITS | Encounter Summary ---
Author Organization [employer] ([place], [place], [place], [place]) Address [address] [place] [address] Care Team Providers Care Recycling Technician Name Role Phone Lalitha Linhkarthikeyan Mazariegos DO Primary Care Provider [phone] Lizzie Alves PA-C Unavailable [phone] Kaushik Mariscal MD Unavailable Encounter Details Date Type Department Care Team (Late st Contact Info) Description 08/27/2021 Transcribed Document [facility] Family Medicine [address] [place] [address] ProviderChad MD [address] [place] [address] Social History Tobacco Use Types [...] On: 08/27/2021 11:15 EDT by Jamila Townsend, GAS PLANT TECHNICIAN Patient Resource Center Provider Status : EST Other Established Provider Name : Linh Doty Patient Phone Number : [phone] Patient Insurance Type : Medicare Source of [...] at ED : Other Primary Language : Congolese Patient Resource Center Comment : PCP and CARDIOLOGY appts made, CARDIO EP appt already made Follow Up Needed : No Jamila Townsend, GAS PLANT TECHNICIAN - 08/27/2021 11:15 EDT Electronically signed by Rekha [facility] Conversion Cnc Machine Programmer Cerner at 05/27/2022 8:59 PM CDT documented in this encounter Plan of Treatment Not on file documented as of this encounter Visit Diagnoses Not on filedocumented in this encounter Care Teams Recycling Technician Relationship Specialty Start Date End Date Luistobias Linh Delilah, DO [address] [facility] [address] [place] [address] PCP - General Family Medicine 11/04/22 Lizzie Alves PA-C [address] [place] [address], [facility] [address] [place] [address] Hospitalist Cardiology 05/27/23 Kaushik Mariscal MD [address] [facility] [place] [address] Inspector Elevators Electrophysiology 11/18/23 documented as of this encounter
--- OUTSIDE RECORDS SUMMARY | 2024-09-28 11:03 | XMS_ITS | Encounter Summary ---
Author Organization [employer] ([place], [place], [place], [place]) Address [address] [place] [address] Care Team Providers Care Rendering Equipment Tender Name Role Phone Lalitha Linh Delilah DAVIS Primary Care Provider [phone] Lizzie Alves PA-C Unavailable [phone] Kaushik Mariscal MD Unavailable Encounter Details Date Type Department Care Team (Late st Contact Info) Description 07/16/2021 Transcribed Document [facility] [place] [place] Family Medicine [address] [place] [address] ProviderChad MD [address] [place] [address] Social History Tobacco Use Types [...] GEORGE MD-CAR Basic Information PCP: Linh Doty Channel Supervisor: Pedro Cruz NP Chief Complaint Draining from [...] 50 mcg inhalation powder 1 Puff, Inhalation, [id number] folic acid 1 mg oral tablet 1 [...] 50 mcg inhalation powder: 1 Puff, Inhalation, [id number], rinse mouth and throat after use, 30 [...] All Problems High cholesterol / SNOMED CT 63488017 / Confirmed PAD (peripheral artery disease) / SNOMED CT 9825018794 / Confirmed Chronic CHF / SNOMED CT 399386188 / Confirmed Current smoker / SNOMED CT 694893267 / Confirmed Arteriosclerosis / SNOMED CT 975048072 / Confirmed Intermittent claudication / SNOMED CT 540227008 / Confirmed Cardiomyopathy / SNOMED CT 796483156 / Confirmed History of NH (myocardial infarction) / SNOMED CT 8126892260 / Confirmed Pacemaker / SNOMED CT 3641277510 / Confirmed Stented coronary artery / SNOMED CT 2538421924 / Confirmed Gout / SNOMED CT 606630173 / Confirmed At risk for sleep apnea / IMO 52051864 / Confirmed Resolved: History of ventricular tachycardia / SNOMED CT 2160030761 ICD placed in past for arrythmia. Canceled: HTN (hypertension) / SNOMED CT 4798184081 Canceled: COPD (chronic obstructive pulmonary disease) / SNOMED CT 94248222 Canceled: At risk for sleep apnea / IMO 30151102 Canceled: History of ischemic cardiomyopathy / SNOMED CT 788201484 Canceled: Abdominal aortic stenosis / SNOMED CT 869394756 Canceled: Shortness of breath / SNOMED CT 143235269, Active Problems (12) Arteriosclerosis At risk for [...] Normal range of motion. Integumentary: Warm, Dry, [place]. Neurologic: Alert, Oriented. Psychiatric: Cooperative, Appropriate mood [...] ICD implanted 07/2011 and gen change 07/01/2021 ([facility]) *hx LV apical thrombus was on Eliquis [...] on filedocumented in this encounter Care Teams Rendering Equipment Tender Relationship Specialty Start Date End Date Linh Doty, [address] [facility] [address] [place] [address] PCP - General Family Medicine 11/04/22 Lizzie Alves PA-C [address] [facility] [address] [place] [address] Hospitalist Cardiology 05/27/23 Kaushik Mariscal MD [address] [facility] [address] [place] [address] Channel Supervisor Electrophysiology 11/18/23 documented as of this encounter
--- OUTSIDE RECORDS SUMMARY | 2024-09-28 11:03 | XMS_ITS | Encounter Summary ---
Author Organization [employer] ([place], [place], [place], [place]) Address [address] [place] [address] Care Team Providers Care Inventory Analyst Name Role Phone Lalitha Linh Delilah DAVIS Primary Care Provider [phone] Lizzie Alves PA-C Unavailable [phone] Kaushik Mariscal MD Unavailable Encounter Details Date Type Department Care Team (Late st Contact Info) Description 07/17/2021 Transcribed Document [facility] Family Medicine [address] [place] [address] ProviderChad MD [address] [place] [address] Social History Tobacco Use Types [...] 07/17/2021 20:01 EDT Electronically signed by Rekha [facility] Conversion General Agent Cerner at 05/27/2022 9:08 PM CDT documented in this encounter Plan of Treatment Not on file documented as of this encounter Visit Diagnoses Not on filedocumented in this encounter Care Teams Inventory Analyst Relationship Specialty Start Date End Date Linh Doty, DO 8 [facility] [address] [place] [address] PCP - General Family Medicine 11/04/22 Lizzie Alves PA-C [address] [place] [address], [facility] [address] [place] [address] Hospitalist Cardiology 05/27/23 Kaushik Mariscal MD [address] [facility] [address] [place] [address] Explosive Man Electrophysiology 11/18/23 documented as of this encounter
--- OUTSIDE RECORDS SUMMARY | 2024-09-28 11:03 | XMS_ITS | Encounter Summary ---
Author Organization [employer] ([place], [place], [place], [place]) Address [address] [place] [address] Care Team Providers Care Oxyhydrogen Welder Name Role Phone Lalitha Linhkarthikeyan Mazariegos DO Primary Care Provider [phone] Lizzie Alves PA-C Unavailable [phone] Kaushik Mariscal MD Unavailable Encounter Details Date Type Department Care Team (Late st Contact Info) Description 08/26/2021 Transcribed Document [facility] Family Medicine [address] [place] [address] ProviderChad MD [address] [place] [address] Social History Tobacco Use Types Packs/Day Years Used Date Smoking Tobacco: Never Assessed Family and Community Support Answer Geremias e Recorded Help with Day to Day Activities Not on file 02/27/2023 Feeling Lonely or Isolated Not on file 02/27 Educational Attainment Answer Date Mendez rded Speak language other than Russian at home Not on file 02/27/2023 Want [...] On: 08/26/2021 15:19 EDT by Samuel Anders Director Of Public Safety Cert Lead Meds to Bed Enrollment Patient Enrollment Decision: : Yes/enroll in meds to bed program Samuel Anders Director Of Public Safety Cert Lead - 08/27/2021 10:26 EDT documented in this encounter Plan of Treatment Not on file documented as of this encounter Visit Diagnoses Not on filedocumented in this encounter Care Teams Oxyhydrogen Welder Relationship Specialty Start Date End Date Linh Doty, 8 [facility] [address] [place] [address] PCP - General Family Medicine 11/04/22 Lizzie Alves PA-C [address] [place] [address], [facility] [address] [place] [address] Hospitalist Cardiology 05/27/23 Kaushik Mariscal MD [address] [facility] [address] [place] [address] Oracle Engineer Electrophysiology 11/18/23 documented as of this encounter
--- OUTSIDE RECORDS SUMMARY | 2024-09-28 11:03 | XMS_ITS | Encounter Summary ---
Author Organization [employer] ([place], [place], [place], [place]) Address [address] [place] [address] Care Team Providers Care Welder Tech Name Role Phone Lalitha Linh Delilah DAVIS Primary Care Provider [phone] Lizzie Alves PA-C Unavailable [phone] Kaushik Mariscal MD Unavailable Encounter Details Date Type Department Care Team (Late st Contact Info) Description 07/16/2021 Transcribed Document [facility] Family Medicine [address] [place] [address] ProviderChad MD [address] [place] [address] Social History Tobacco Use Types [...] 15:57 EDT by Pat Gallegos Emergency Room Appliance Repair Technician Phone Call for Consults Consult Phone Call/Page Attempt : First call Consult Reason : infected pacemaker site Provider Service Notified Name : Infectious Disease Consult, Additional Information : Spoke to Cheryle at Inf Disease office and informed her of consult. Pat Gallegos Emergency Room Appliance Repair Technician - 07/16/2021 15:57 EDT Electronically signed by Rekha [facility] Conversion Multiple Drum Sander Cerner at 05/27/2022 9:19 PM CDT documented in this encounter Plan of Treatment Not on file documented as of this encounter Visit Diagnoses Not on filedocumented in this encounter Care Teams Welder Tech Relationship Specialty Start Date End Date Linh Doty, DO [address] [facility] [address] [place] [address] PCP - General Family Medicine 11/04/22 Lizzie Alves PA-C [address] [facility], [facility] [address] [place] [address] Hospitalist Cardiology 05/27/23 Kaushik Mariscal MD [address] [facility] [address] [place] [address] Supervisor Malted Milk Electrophysiology 11/18/23 documented as of this encounter
--- OUTSIDE RECORDS SUMMARY | 2024-09-28 11:03 | XMS_ITS | Encounter Summary ---
Author Organization [employer] ([place], [place], [place], [place]) Address [address] [place] [address] Care Team Providers Care Kiss Machine Operator Name Role Phone Lalitha Linhkarthikeyan Mazariegos DO Primary Care Provider [phone] Lizzie Alves PA-C Unavailable [phone] Kaushik Mariscal MD Unavailable Encounter Details Date Type Department Care Team (Late st Contact Info) Description 07/17/2021 Transcribed Document [facility] Family Medicine [address] [place] [address] ProviderChad MD [address] [place] [address] Social History Tobacco Use Types [...] Policy Numbers : Insurance 1 Health Plan: [employer] MANAGED MEDICARE Policy Number: [id number] Authorization Number: Insurance Primary Name : [facility] MANAGED MEDICARE Policy Number: [id number] Authorized Service Begin Date-Primary : 07/18/2021 EDT Historical Authorization Comments-Primary : No Authorization Comments Found Khushi Jones Rn-Utilization Review - 07/17/2021 15:13 EDT Electronically signed by Rekha [facility] Conversion Raschel Knitting Machine Operator Cerner at 05/27/2022 9:20 PM CDT documented in this encounter Plan of Treatment Not on file documented as of this encounter Visit Diagnoses Not on filedocumented in this encounter Care Teams Kiss Machine Operator Relationship Specialty Start Date End Date Linh Doty, DO [address] [facility] [address] [place] [address] PCP - General Family Medicine 11/04/22 Lizzie Alves PA-C [address] [place] [address], [facility] [address] [place] [address] Hospitalist Cardiology 05/27/23 Kaushik Mariscal MD [address] [facility] [address] [place] [address] Recyclable Materials Collector Electrophysiology 11/18/23 documented as of this encounter
--- OUTSIDE RECORDS SUMMARY | 2024-09-28 11:03 | XMS_ITS | Encounter Summary ---
Author Organization [employer] ([place], [place], [place], [place]) Address [address] [place] [address] Care Team Providers Care Lawn Mower Mechanic Name Role Phone Lalitha Linhkarthikeyan Mazariegos DO Primary Care Provider [phone] Lizzie Alves PA-C Unavailable [phone] Kaushik Mariscal MD Unavailable Encounter Details Date Type Department Care Team (Late st Contact Info) Description 07/16/2021 Transcribed Document [facility] [place] [address] [place] [address] ProviderChad MD [address] [place] [address] Social History Tobacco Use Types [...] Historical ProviderMD - 07/16/2021 12:00 PM CDT [place] Suicide Severity Rating Scale (C-SSRS) Entered On: 07/16/2021 14:34 EDT Performed On: 07/16/2021 14:34 EDT by MAIKEL ESPARZA RN [place] Suicide Severity Rating Scale (C-SSRS) CSSRS Past Month Wish to be : No CSSRS Past Month Suicidal Thoughts : No CSSRS Lifetime Suicide Behavior : No Suicide Severity Rating Score : 0 Suicide Severity Rating : No Additional Care Required at this time MAIKEL ESPARZA RN - 07/16/2021 14:34 EDT Electronically signed by [facility] Conversion Director Private Music Therapy Agency Cerner at 05/27/2022 9:15 PM CDT documented in this encounter Plan of Treatment Not on file documented as of this encounter Visit Diagnoses Not on filedocumented in this encounter Care Teams Lawn Mower Mechanic Relationship Specialty Start Date End Date Linh Doty, 8 [facility] [address] [place] [address] PCP - General Family Medicine 11/04/22 Lizzie Alves PA-C [address] [facility], [facility] [address] [place] [address] Hospitalist Cardiology 05/27/23 Kaushik Mariscal MD [address] [facility] [address] [place] [address] Kids Activities Coach Electrophysiology 11/18/23 documented as of this encounter
--- OUTSIDE RECORDS SUMMARY | 2024-09-28 11:03 | XMS_ITS | Encounter Summary ---
Author Organization [employer] ([place], [place], [place], [place]) Address [address] [place] [address] Care Team Providers Care Residential Gas Heat Technician Name Role Phone Lalitha Linhkarthikeyan Mazariegos DO Primary Care Provider [phone] Lizzie Alves PA-C Unavailable [phone] Kaushik Mariscal MD Unavailable Encounter Details Date Type Department Care Team (Late st Contact Info) Description 07/16/2021 Transcribed Document [facility] [place] Medicine [address] [place] [address] ProviderChad MD [address] [place] [address] Social History Tobacco Use Types [...] - 07/18/2021 7:35 EDT Electronically signed by [facility] Conversion Spray Gun Repairer Cerner at 05/27/2022 9:14 PM CDT documented in this encounter Plan of Treatment Not on file documented as of this encounter Visit Diagnoses Not on filedocumented in this encounter Care Teams Residential Gas Heat Technician Relationship Specialty Start Date End Date Linh Doty, 8 [facility] [address] [place] [address] PCP - General Family Medicine 11/04/22 Lizzie Alves PA-C [address] [place] [address], [facility] [address] [place] [address] Hospitalist Cardiology 05/27/23 Kaushik Mariscal MD [address] [facility] [address] [place] [address] Carpet Weaver Electrophysiology 11/18/23 documented as of this encounter
--- OUTSIDE RECORDS SUMMARY | 2024-09-28 11:03 | XMS_ITS | Encounter Summary ---
Author Organization [employer] ([place], [place], [place], [place]) Address [address] [place] [address] Care Team Providers Care Stock Digger Name Role Phone Lalitha Linhkarthikeyan Mazariegos DO Primary Care Provider [phone] Lizzie Alves PA-C Unavailable [phone] Kaushik Mariscal MD Unavailable Encounter Details Date Type Department Care Team (Late st Contact Info) Description 08/06/2021 Transcribed Document [facility] [place] [address] [place] [address] ProviderChad MD [address] [place] [address] Social History Tobacco Use Types Packs/Day Years Used Date Smoking Tobacco: Never Assessed Family and Community Support Answer Geremias e Recorded Help with Day to Day Activities Not on file 02/27/2023 Feeling Lonely or Isolated Not on file 02/27 Educational Attainment Answer Date Mendez rded Speak language other than Taiwanese at home Not on file 02/27/2023 Want [...] Policy Numbers : Insurance 1 Health Plan: [employer] MA[employer]GED MEDICARE Policy Number: [id number] Authorization Number: Insurance Primary Name : WELLCARE MANAGED MEDICARE Policy Number: [id number] Authorization Status-Primary : Admit approved Auth/Referral Contact Name-Primary : [place] Reference Number-Primary : [id number] Authorization Number-Primary : [id number] Number of Days Authorized-Primary : 5 Day(s) Authorized Service Begin Date-Primary : 07/16/2021 EDT Authorized Service End Date-Primary : 07/21/2021 EDT Authorization Comments-Primary : Remains pending per portal Historical Authorization Comments-Primary : Comment 1: Per website - Under review. (Bonita Katz, Hardboard Factory Worker 07/31/2021 08:56) Comment 2: Discharge summary as well as continued stay clinical 07/23 - discharge faxed. (Bonita Katz, Hardboard Factory Worker 07/29/2021 15:50) Comment 3: 07/20-07/22 CLINICALS FAXED VIA [employer] (Yessi Alaniz RN 07/22/2021 16:49) Comment 4: PER PORTAL IP APPROVED FOR 07/16 UP TO BUT NOT INCLUDING 07/22 (Khushi Jones Rn-Utilization Review 07/19/2021 13:56) Comment 5: UNDER REVIEW PER PORTAL (Khushi Jones Rn-Utilization Review 07/19/2021 09:22) Comment 6: CLINICAL FAXED VIA [employer] (Khushi Jones Rn-Utilization Review 07/17/2021 15:22) Comment 7: REF# PER [facility]. CLINICAL FAXED VIA [employer] (Khushi Jones Rn-Utilization Review 07/17/2021 15:17) WALDO PÑIA RN - 08/06/2021 13:43 EDT documented in this encounter Plan of Treatment Not on file documented as of this encounter Visit Diagnoses Not on filedocumented in this encounter Care Teams Stock Digger Relationship Specialty Start Date End Date Linh Doty, 8 [facility] [address] [place] [address] PCP - General Family Medicine 11/04/22 Lizzie Alves PA-C 1401 [facility], [facility] [address] [place] [address] Hospitalist Cardiology 05/27/23 Kaushik Mariscal MD 1401 [facility] [address] [place] [address] Call Center Director Electrophysiology 11/18/23 documented as of this encounter
--- OUTSIDE RECORDS SUMMARY | 2024-09-28 11:03 | XMS_ITS | Encounter Summary ---
Author Organization [employer] ([place], [place], [place], [place]) Address [address] [place] [address] Care Team Providers Care Spinning And Winding Supervisor Name Role Phone Lalitha Linh Delilah DAVIS Primary Care Provider [phone] Lizzie Alves PA-C Unavailable [phone] Kaushik Mariscal MD Unavailable Encounter Details Date Type Department Care Team (Late st Contact Info) Description 08/26/2021 Transcribed Document [facility] [place] [address] [place] [address] ProviderChad MD [address] [place] [address] Social History Tobacco Use Types Packs/Day Years Used Date Smoking Tobacco: Never Assessed Family and Community Support Answer Geremias e Recorded Help with Day to Day Activities Not on file 02/27/2023 Feeling Lonely or Isolated Not on file 02/27 Educational Attainment Answer Date Mendez rded Speak language other than Palestinian at home Not on file 02/27/2023 Want [...] Source : Stated Height Entry Format : [place] Height, Feet : 5 ft(Converted to: 152 cm, 60 Inch) Height, Inches : 6 Inch(Converted to: 0 ft 6 Inch, 15.24 cm) Clinical Height : 167.64 cm Weight Source : Standing scale Weight Entry Format : [place] Clinical Dosing Weight : 64.55 kg Weight, Pounds : 142 lb Body Surface Area (BSA) : 1.73 m2 Body Mass Index : 23 kg/m2 [place] Body Weight : 59 kg ABBIE MANDUJANO [...] ABBIE MANDUJANO RN - 08/26/2021 10:13 EDT [place] Suicide Severity Rating Scale (C-SSRS) CSSRS Past [...] Support Person/Pt Rep Name : Tereso Coffey [phone] Want Family/Rep/Phys Notified of Admit : No Emergency Contact #1 : na Emergency Contact #1 Phone Number : na Emergency Contact #1 Relationship : na Emergency Contact #2 : na Emergency Contact #2 Phone Number : na Emergency Contact #2 Relationship : na Primary Language : Palestinian Preferred Communication Mode : Verbal Communication Barrier : None Dental Equipment Installer And Servicer Needed : No ABBIE MANDUJANO RN - [...] Scale Risk Level : 0-24 Low Risk [place] Fall Interventions : Bed in low position, [...] on filedocumented in this encounter Care Teams Spinning And Winding Supervisor Relationship Specialty Start Date End Date Linh Doty DO [address] [address] PCP - General Family Medicine 11/04/22 Lizzie Alves PA-C 1401 [facility], [facility] [address] [place] [address] Hospitalist Cardiology 05/27/23 Kaushik Mariscal MD 1401 [facility] [address] [place] [address] Lawyer Probate Electrophysiology 11/18/23 documented as of this encounter
--- OUTSIDE RECORDS SUMMARY | 2024-09-28 11:03 | XMS_ITS | Encounter Summary ---
Author Organization [employer] ([place], [place], [place], [place]) Address [address] [place] [address] Care Team Providers Care Manager Generation Name Role Phone Lalitha Linhkarthikeyan Mazariegos DO Primary Care Provider [phone] Lizzie Alves PA-C Unavailable [phone] Kaushik Mariscal MD Unavailable Encounter Details Date Type Department Care Team (Late st Contact Info) Description 07/17/2021 Transcribed Document [facility] [place] [address] [place] [address] ProviderChad MD [address] [place] [address] Social History Tobacco Use Types Packs/Day Years Used Date Smoking Tobacco: Never Assessed Family and Community Support Answer Geremias e Recorded Help with Day to Day Activities Not on file 02/27/2023 Feeling Lonely or Isolated Not on file 02/27 Educational Attainment Answer Date Mendez rded Speak language other than Guyanese at home Not on file 02/27/2023 Want [...] On: 07/17/2021 15:54 EDT by Samuel Anders Chef Passenger Vessel Cert Lead Meds to Bed Enrollment Patient Enrollment Decision: : Yes/enroll in meds to bed program Samuel Anders Chef Passenger Vessel Cert Lead - 07/18/2021 10:18 EDT documented in this encounter Plan of Treatment Not on file documented as of this encounter Visit Diagnoses Not on filedocumented in this encounter Care Teams Manager Generation Relationship Specialty Start Date End Date Linh Doty, 8 [facility] [address] [place] [address] PCP - General Family Medicine 11/04/22 Lizzie Alves PA-C [address] [place] [address], [facility] [address] [place] [address] Hospitalist Cardiology 05/27/23 Kaushik Mariscal MD 1401 [facility] [address] [place] [address] Brim And Crown Presser Electrophysiology 11/18/23 documented as of this encounter
--- OUTSIDE RECORDS SUMMARY | 2024-09-28 11:03 | XMS_ITS | Encounter Summary ---
Author Organization [employer] ([place], [place], [place], [place]) Address [address] [place] [address] Care Team Providers Care Fiber Machine Tender Name Role Phone Lalitha Linh Delilah DAVIS Primary Care Provider [phone] Lizzie Alves PA-C Unavailable [phone] Kaushik Mariscal MD Unavailable Encounter Details Date Type Department Care Team (Late st Contact Info) Description 07/16/2021 Transcribed Document [facility] [place] [address] [place] [address] ProviderChad MD [address] [place] [address] Social History Tobacco Use Types Packs/Day [...] m - 1,000 mg, IV Piggyback, Inj, U64VPth, infuse over 1 Hour(s) Cardiovascular carvedilol - [...] At risk for sleep apnea / IMO 85547721 / Confirmed High cholesterol / SNOMED CT 01684409 / Confirmed Canceled: At risk for sleep apnea / IMO 08488732 Canceled: COPD (chronic obstructive pulmonary disease) / SNOMED CT 54736569 Canceled: HTN (hypertension) / SNOMED CT 2849133559, Active Problems (12) Arteriosclerosis At risk for [...] Normal strength, No tenderness. Integumentary: Warm, Dry, La[place]. Neurologic: Alert, Oriented, Normal sensory, Normal motor [...] Radiology results Radiology Results (Last 48 hours) [id number] -- 07/16/2021 14:13 CR Chest 1 Vw [...] on filedocumented in this encounter Care Teams Fiber Machine Tender Relationship Specialty Start Date End Date Linh Doty, DO 8 [facility] [address] [place] [address] PCP - General Family Medicine 11/04/22 Lizzie Alves PA-C 1401 [facility], [facility] [address] [place] [address] Hospitalist Cardiology 05/27/23 Kaushik Mariscal MD 1401 [facility] [address] [place] [address] Iron Cutter Electrophysiology 11/18/23 documented as of this encounter
--- OUTSIDE RECORDS SUMMARY | 2024-09-28 11:03 | XMS_ITS | Encounter Summary ---
Author Organization [employer] ([place], [place], [place], [place]) Address [address] [place] [address] Care Team Providers Care Director Of Training Name Role Phone Lalitha Linhkarthikeyan Mazariegos DO Primary Care Provider Lizzie Alves PA-C Unavailable [phone] Kaushik Mariscal MD Unavailable Encounter Details Date Type Department Care Team (Late st Contact Info) Description 07/16/2021 Transcribed Document [facility] [place] Family [place] [address] [place] [address] ProviderChad MD [address] [place] [address] Social History Tobacco Use Types Packs/Day Years Used Date Smoking Tobacco: Never Assessed Family and Community Support Answer Geremias e Recorded Help with Day to Day Activities Not on file 02/27/2023 Feeling Lonely or Isolated Not on file 02/27 Educational Attainment Answer Date Mendez rded Speak language other than Zambian at home Not on file 02/27/2023 Want [...] 07/16/2021 12:00 EDT by Mary Ellen Nance, Alterations Supervisor Student Nurse ED Quick Look Assessment Level of Consciousness : Alert Affect/Behavior : Appropriate, Calm, Cooperative Orientation : Oriented x 4 Skin Temperature : Warm Skin Description : Normal for ethnicity Mary Ellen Nance, Alterations Supervisor Student Nurse - 07/16/2021 12:49 EDT (Not Validated) ED General-Functional Assess Information Obtained From : Patient, Spouse Preferred Communication Mode : Verbal Communication Barrier : None Primary Language : Zambian Any Spiritual/Cultural Needs or Requests : No Currently in Unsafe Situation : No Mary Ellen Nance Alterations Supervisor Student Nurse - 07/16/2021 12:49 EDT (Not Validated) Social Habits Smoking Status : Never (less than 100 in lifetime; none in last 30 days) Smokeless Tobacco Status : Never Desires Tobacco Cessation Calc : 0 Mary Ellen Nance Alterations Supervisor Student Nurse - 07/16/2021 12:49 EDT [Not [...] denies anty other symptoms. [Mary Ellen Nance, Alterations Supervisor Student Nurse - 07/16/2021 12:49 EDT] ) Mary Ellen Nance Alterations Supervisor Student Nurse - 07/16/2021 12:49 EDT (Not Validated) Electronically signed by Rekha [facility] Conversion Qualitative Executive Researcher Cerner at 05/27/2022 9:13 PM CDT documented in this encounter Plan of Treatment Not on file documented as of this encounter Visit Diagnoses Not on filedocumented in this encounter Care Teams Director Of Training Relationship Specialty Start Date End Date Linh Doty, 8 [facility] [address] [place] [address] PCP - General Family Medicine 11/04/22 Lizzie Alves PA-C [address] [place] [address], [facility] [address] [place] [address] Hospitalist Cardiology 05/27/23 Kaushik Mariscal MD 1401 [facility] [address] [place] [address] Educator Senior Clinical Electrophysiology 11/18/23 documented as of this encounter
--- OUTSIDE RECORDS SUMMARY | 2024-09-28 11:03 | XMS_ITS | Encounter Summary ---
Author Organization [employer] ([place], [place], [place], [place]) Address [address] [place] [address] Care Team Providers Care Electronic Intelligence Officer Name Role Phone Lalitha Linhkarthikeyan Mazariegos DO Primary Care Provider [phone] Lizzie Alves PA-C Unavailable [phone] Dion Mariscal MD Unavailable Encounter Details Date Type Department Care Team (Late st Contact Info) Description 07/18/2021 Transcribed Document [facility] [place] [address] [place] [address] ProviderChad MD 123 [place] [address] Social History Tobacco Use Types Packs/Day Years Used Date Smoking Tobacco: Never Assessed Family and Community Support Answer Geremias e Recorded Help with Day to Day Activities Not on file 02/27/2023 Feeling Lonely or Isolated Not on file 02/27 Educational Attainment Answer Date Mendez rded Speak language other than [place] Islander at home Not on file 02/27/2023 [...] 07/18/2021 10:10 AM CDT Patient: LENA MENDOZA [facility]: [id number] Age: 55 years Sex: Female : 1965 [...] mL: 1,000 mg, 250 mL/Hr, IV Piggyback, [id number] Prescriptions Prescribed nicotine 21 mg/24 hr transdermal [...] Refill(s) fluticasone 50 mcg/inh nasal spray: 2 [place], Nasal, Daily, PRN: Nasal Congestion, 16 Gram, [...] BID fluticasone 50 mcg/inh nasal spray 2 [place], PRN, Nasal, Daily folic acid 1 mg [...] 0.9% 250 mL 1,000 mg, IV Piggyback, [id number] Continuous: (0) PRN: (7) acetaminophen 325 mg [...] All Problems High cholesterol / SNOMED CT 85664348 / Confirmed PAD (peripheral artery disease) / SNOMED CT 1709433926 / Confirmed Chronic CHF / SNOMED CT 940343307 / Confirmed Current smoker / SNOMED CT 944931299 / Confirmed Arteriosclerosis / SNOMED CT 294165552 / Confirmed Intermittent claudication / SNOMED CT 077080179 / Confirmed Cardiomyopathy / SNOMED CT 200012414 / Confirmed History of [place] (myocardial infarction) / SNOMED CT 8753409791 / Confirmed Pacemaker / SNOMED CT 4445864191 / Confirmed Stented coronary artery / SNOMED CT 8614929701 / Confirmed Gout / SNOMED CT 771879471 / Confirmed At risk for sleep apnea / IMO 46863671 / Confirmed Resolved: History of ventricular tachycardia / SNOMED CT 7405343569 ICD placed in past for arrythmia. Canceled: HTN (hypertension) / SNOMED CT 0257446707 Canceled: COPD (chronic obstructive pulmonary disease) / SNOMED CT 51705419 Canceled: At risk for sleep apnea / IMO 21920664 Canceled: History of ischemic cardiomyopathy / SNOMED CT 604510651 Canceled: Abdominal aortic stenosis / SNOMED CT 340482597 Canceled: Shortness of breath / SNOMED CT 474815952, Active Problems (12) Arteriosclerosis At risk for [...] Normal range of motion. Integumentary: Warm, Dry, [place]. Neurologic: Alert, Oriented. Psychiatric: Cooperative, Appropriate mood [...] on filedocumented in this encounter Care Teams Electronic Intelligence Officer Relationship Specialty Start Date End Date Linh Doty, 8 [facility] [address] [place] [address] PCP - General Family Medicine 11/04/22 Lizzie Alves PA-C [address] [place] , [facility] [address] [place] [address] Hospitalist Cardiology 05/27/23 Dion Mariscal MD 1401 [facility] [place] [address] Manager Process Excellence Electrophysiology 11/18/23 documented as of this encounter
--- OUTSIDE RECORDS SUMMARY | 2024-09-28 11:03 | XMS_ITS | Encounter Summary ---
Author Organization [employer] ([place], [place], [place], [place]) Address [address] [place] [address] Care Team Providers Care Branch Service Leader Name Role Phone Lalitha Linhkarthikeyan Mazariegos DO Primary Care Provider [phone] Lizzie Alves PA-C Unavailable [phone] Kaushik Mariscal MD Unavailable Encounter Details Date Type Department Care Team (Late st Contact Info) Description 07/31/2021 Transcribed Document [facility] [place] [address] [place] [address] ProviderChad MD [address] [place] [address] Social History Tobacco Use Types [...] On: 07/31/2021 8:56 EDT by Bonita Katz, Staff Assistant Primary Insurance Authorization Authorization and Policy Numbers : Insurance 1 Health Plan: WELLCARE MANAGED MEDICARE Policy Number: [id number] Authorization Number: Insurance Primary Name : WELL[employer] MANAGED MEDICARE Policy Number: [id number] Authorization Status-Primary : Admit approved Auth/Referral Contact Name-Primary : [place] Reference Number-Primary : [id number] Authorization Number-Primary : [id number] Number of Days Authorized-Primary : 5 Day(s) Authorized Service Begin Date-Primary : 07/16/2021 EDT Authorized Service End Date-Primary : 07/21/2021 EDT Authorization Comments-Primary : Per website - Under review. Historical Authorization Comments-Primary : Comment 1: Discharge summary as well as continued stay clinical 07/23 - discharge faxed. (Bonita Katz, Staff Assistant 07/29/2021 15:50) Comment 2: 07/20-07/22 CLINICALS FAXED [...] Jones, Rn-Utilization Review 07/17/2021 15:17) Bonita Katz, Staff Assistant - 07/31/2021 8:56 EDT documented in this encounter Plan of Treatment Not on file documented as of this encounter Visit Diagnoses Not on filedocumented in this encounter Care Teams Branch Service Leader Relationship Specialty Start Date End Date Linh Doty DO [address] [place] [address] PCP - General Family Medicine 11/04/22 Lizzie Alves PA-C 1401 [facility], [facility] [address] [place] [address] Hospitalist Cardiology 05/27/23 Kaushik Mariscal MD 1401 [facility] [address] [place] [address] Machinist Helper Electrophysiology 11/18/23 documented as of this encounter"
--- OUTSIDE RECORDS SUMMARY | 2024-09-28 11:03 | XMS_ITS | Encounter Summary ---
Author Organization [employer] ([place], [place], [place], [place]) Address [address] [place] [address] Care Team Providers Care Tank Farm Operator Name Role Phone Lalitha Linhkarthikeyan Mazariegos DO Primary Care Provider [phone] Lizzie Alves PA-C Unavailable [phone] Kaushik Mariscal MD Unavailable Encounter Details Date Type Department Care Team (Late st Contact Info) Description 08/26/2021 Transcribed Document [facility] [place] [address] [place] [address] ProviderChad MD [address] [place] [address] Social History Tobacco Use Types [...] SMITH on 4 IC. Pt transferred to [facility] via wheelchair and all belongings. ABBIE MANDUJANO RN - 08/26/2021 15:01 EDT Electronically signed by Rekha [facility] Conversion Venetian Blind Washer Cerner at 05/27/2022 9:03 PM CDT documented in this encounter Plan of Treatment Not on file documented as of this encounter Visit Diagnoses Not on filedocumented in this encounter Care Teams Tank Farm Operator Relationship Specialty Start Date End Date Linh Doty, DO 8 [facility] [address] [place] [address] PCP - General Family Medicine 11/04/22 Lizzie Alves PA-C 1401 [facility], [facility] [address] [place] [address] Hospitalist Cardiology 05/27/23 Kaushik Mariscal MD 1401 [facility] [address] [place] [address] Tank Builder Helper Electrophysiology 11/18/23 documented as of this encounter
--- OUTSIDE RECORDS SUMMARY | 2024-09-28 11:03 | XMS_ITS | Encounter Summary ---
Author Organization [employer] ([place], [place], [place], [place]) Address [address] [place] [address] Care Team Providers Care Children'S Author Name Role Phone Lalitha Linhkarthikeyan Mazariegos DO Primary Care Provider [phone] Lizzie Alves PA-C Unavailable [phone] Kaushik Mariscal MD Unavailable Encounter Details Date Type Department Care Team (Late st Contact Info) Description 08/26/2021 Transcribed Document [facility] [place] [address] [place] [address] ProviderChad MD 123 [place] [address] Social History Tobacco Use Types [...] Electronically signed by Reyna Da Silva Conversion Senior User Experience Architect Cerner at 05/27/2022 9:04 PM CDT documented in this encounter Plan of Treatment Not on file documented as of this encounter Visit Diagnoses Not on filedocumented in this encounter Care Teams Children'S Author Relationship Specialty Start Date End Date Linh Doty, 8 [facility] [address] [place] [address] PCP - General Family Medicine 11/04/22 Lizzie Alves PA-C 1401 [facility], [facility] [address] [place] [address] Hospitalist Cardiology 05/27/23 Kaushik Mariscal MD 1401 [facility] [address] [place] [address] Library Clerk Talking Books Electrophysiology 11/18/23 documented as of this encounter
--- OUTSIDE RECORDS SUMMARY | 2024-09-28 11:03 | XMS_ITS | Encounter Summary ---
Author Organization [employer] ([place], [place], [place], [place]) Address [address] [place] [address] Care Team Providers Care Back Tender Insulation Board Name Role Phone Lalitha Linh Delilah DAVIS Primary Care Provider [phone] Lizzie Alves PA-C Unavailable [phone] Kaushik Mariscal MD Unavailable Encounter Details Date Type Department Care Team (Late st Contact Info) Description 07/18/2021 Transcribed Document [facility] [place] Family Medicine [address] [place] [address] ProviderChad MD [address] [place] [address] Social History Tobacco Use Types Packs/Day Years Used Date Smoking Tobacco: Never Assessed Family and Community Support Answer Geremias e Recorded Help with Day to Day Activities Not on file 02/27/2023 Feeling Lonely or Isolated Not on file 02/27 Educational Attainment Answer Date Mendez rded Speak language other than Ukrainian at home Not on file 02/27/2023 Want [...] Diagnoses: None Author: YO GASTELUM, [facility] 55 y/o F with draining hematoma [...] for this consult. Yo Gastelum [facility] beeper [phone] Electronically signed by [facility], [facility] Conversion Environmental Projects Advisor Cerner at 05/27/2022 9:00 PM CDT documented in this encounter Plan of Treatment Not on file documented as of this encounter Visit Diagnoses Not on filedocumented in this encounter Care Teams Back Tender Insulation Board Relationship Specialty Start Date End Date Linh Doty, DO [address] [place] [address] PCP - General Family Medicine 11/04/22 Lizzie Alves PA-C [address] [place] [address] Hospitalist Cardiology 05/27/23 Kaushik Mariscal MD 1401 [facility] [place] [place] [address] Promotions Assistant Electrophysiology 11/18/23 documented as of this encounter
--- OUTSIDE RECORDS SUMMARY | 2024-09-28 11:03 | XMS_ITS | Encounter Summary ---
Author Organization [employer] ([place], [place], [place], [place]) Address [address] [place] [address] Care Team Providers Care Lapel Padder Blindstitch Name Role Phone Lalitha Linhkarthikeyan Mazariegos DO Primary Care Provider Lizzie Alves PA-C Unavailable [phone] Kaushik Mariscal MD Unavailable Encounter Details Date Type Department Care Team (Late st Contact Info) Description 07/16/2021 Transcribed Document [facility] Radiology [address] [id number] Yanick Torres MD [address] [place] [address] [place] [address] Social History Tobacco Use Types Packs/Day Years Used Date Smoking Tobacco: Never Assessed Family and Community Support Answer Geremias e Recorded Help with Day to Day Activities Not on file 02/27/2023 Feeling Lonely or Isolated Not on file 02/27 Educational Attainment Answer Date Mendez rded Speak language other than Bruneian at home Not on file 02/27/2023 Want [...] 50 mcg inhalation powder: 1 Puff, Inhalation, [id number], rinse mouth and throat after use, 30 [...] 50 mcg inhalation powder 1 Puff, Inhalation, [id number] folic acid 1 mg oral tablet 1 [...] At risk for sleep apnea / IMO [id number] / Confirmed High cholesterol / SNOMED CT 46984233 / Confirmed, Active Problems (12) Arteriosclerosis At risk for sleep apnea Cardiomyopathy Chronic CHF Current smoker Gout High cholesterol History of DC (myocardial infarction) Intermittent claudication Pacemaker PAD (peripheral [...] gallop, S1+ S2 No S3 or S4 Dane.. Gastrointestinal: Soft, Non-tender, Non-distended, Normal bowel sounds. [...] on filedocumented in this encounter Care Teams Lapel Padder Blindstitch Relationship Specialty Start Date End Date Linh Doty, DO [address] [place] [address] PCP - General Family Medicine 11/04/22 Lizzie Alves PA-C [address] [place] [address] Hospitalist Cardiology 05/27/23 Kaushik Mariscal MD 1401 [facility] [place] [address] Encyclopedia Research Worker Electrophysiology 11/18/23 documented as of this encounter
--- OUTSIDE RECORDS SUMMARY | 2024-09-28 11:03 | XMS_ITS | Encounter Summary ---
Author Organization [employer] ([place], [place], [place], [place]) Address [address] [place] [address] Care Team Providers Care Food Preparer Name Role Phone Lalitha Linhkarthikyean Mazariegos DO Primary Care Provider [phone] Lizzie Alves PA-C Unavailable [phone] Kaushik Mariscal MD Unavailable Encounter Details Date Type Department Care Team (Late st Contact Info) Description 07/17/2021 Transcribed Document [facility] [place] Family Medicine [address] [place] [address] ProviderChad MD [address] [place] [address] Social History Tobacco Use Types Packs/Day [...] Policy Numbers : Insurance 1 Health Plan: [employer] MANAGED MEDICARE Policy Number: [id number] Authorization Number: Insurance Primary Name : [facility] Policy Number: [id number] Authorized Service Begin Date-Primary : 07/18/2021 EDT Historical Authorization Comments-Primary : No Authorization Comments Found EZEKIEL PHILLIPS RN - 07/17/2021 14:49 EDT Electronically signed by Rekha [facility] Conversion Orchid Transplanter Cerner at 05/27/2022 9:10 PM CDT documented in this encounter Plan of Treatment Not on file documented as of this encounter Visit Diagnoses Not on filedocumented in this encounter Care Teams Food Preparer Relationship Specialty Start Date End Date Linh Doty, DO [address] [facility] [address] [place] [address] PCP - General Family Medicine 11/04/22 Lizzie Alves PA-C 1401 [facility], [facility] [address] [place] [address] Hospitalist Cardiology 05/27/23 Kaushik Mariscal MD 14[address] [facility] [address] [place] [address] Communication Spec Electrophysiology 11/18/23 documented as of this encounter
--- OUTSIDE RECORDS SUMMARY | 2024-09-28 11:03 | XMS_ITS | Encounter Summary ---
Author Organization [employer] ([place], [place], [place], [place]) Address [address] [place] [address] Care Team Providers Care Byproducts Extractor Name Role Phone Lalitha Linh Delilah DAVIS Primary Care Provider Lizzie Alves PA-C Unavailable [phone] Kaushik Mariscal MD Unavailable Encounter Details Date Type Department Care Team (Late st Contact Info) Description 08/09/2021 Transcribed Document [facility] [place] [address] [place] [address] ProviderChad MD [address] [place] [address] Social History Tobacco Use Types Packs/Day Years Used Date Smoking Tobacco: Never Assessed Family and Community Support Answer Geremias e Recorded Help with Day to Day Activities Not on file 02/27/2023 Feeling Lonely or Isolated Not on file 02/27 Educational Attainment Answer Date Mendez rded Speak language other than [place] Citizen at home Not on file 02/27/2023 Want [...] On: 08/09/2021 14:46 EDT by ERNIE CAMARA, Starter Cup Powder Mixer Primary Insurance Authorization Authorization and Policy Numbers : Insurance 1 Health Plan: [employer] MANAGED MEDICARE Policy Number: [id number] Authorization Number: Insurance Primary Name : [employer] MANAGED MEDICARE Policy Number: [id number] Authorization Status-Primary : Admit approved Auth/Referral Contact Name-Primary : [place] Reference Number-Primary : [id number] Authorization Number-Primary : [id number] Number of Days Authorized-Primary : 5 Day(s) Authorized Service Begin Date-Primary : 07/16/2021 EDT Authorized Service End Date-Primary : 07/21/2021 EDT Authorization Comments-Primary : Still pending per website Historical Authorization Comments-Primary : Comment 1: Remains pending per portal (WALDO PIÑA RN 08/06/2021 13:43) Comment 2: Per website - Under review. (Bonita Katz, Special Trackwork Blacksmith 07/31/2021 08:56) Comment 3: Discharge summary as well as continued stay clinical 07/23 - discharge faxed. (Bonita Katz, Special Trackwork Blacksmith 07/29/2021 15:50) Comment 4: 07/20-07/22 CLINICALS FAXED VIA [employer] (Yessi Alaniz RN 07/22/2021 16:49) Comment 5: [...] Jones Rn-Utilization Review 07/17/2021 15:17) ERNIE CAMARA, Starter Cup Powder Mixer - 08/09/2021 14:46 EDT Electronically signed by Rekha [facility] Conversion Contact Center Associate Cerner at 05/27/2022 9:18 PM CDT documented in this encounter Plan of Treatment Not on file documented as of this encounter Visit Diagnoses Not on filedocumented in this encounter Care Teams Byproducts Extractor Relationship Specialty Start Date End Date Linh Doty, [address] [facility] [address] [place] [address] PCP - General Family Medicine 11/04/22 Lizzie Alves PA-C [address] [place] [address], [facility] [address] [place] [address] Hospitalist Cardiology 05/27/23 Kaushik Mariscal MD 1401 [facility] [address] [place] [address] Hand Folder Electrophysiology 11/18/23 documented as of this encounter
--- OUTSIDE RECORDS SUMMARY | 2024-09-28 11:03 | XMS_ITS | Encounter Summary ---
Author Organization [employer] ([place], [place], [place], [place]) Address [address] [place] [address] Care Team Providers Care Personal Insurance Advisor Name Role Phone Lalitha Linhkarthikeyan Mazariegos DO Primary Care Provider Lizzie Alves PA-C Unavailable [phone] Kaushik Mariscal MD Unavailable Encounter Details Date Type Department Care Team (Late st Contact Info) Description 08/26/2021 Transcribed Document [facility] [place] [address] [place] [address] ProviderChad MD [address] [place] [address] Social History Tobacco Use Types [...] Age: 56 Years Sex: Female : 1965 Mailing Specialist: Kaushik Mariscal MD Indication: 56-year-old female with [...] pulse generator was a [employer] model [place] VR [id number] The V ventricular lead was a SJM model Durata 7122Q/58 serial number [id number] with a sensing of 11 mV, impedance [...] on filedocumented in this encounter Care Teams Personal Insurance Advisor Relationship Specialty Start Date End Date Linh Doty, [address] [facility] [address] [place] [address] PCP - General Family Medicine 11/04/22 Lizzie Alves PA-C 1401 [facility], [facility] [address] [place] [address] Hospitalist Cardiology 05/27/23 Kaushik Mariscal MD 1401 [facility] [address] [place] [address] Dye Box Operator Electrophysiology 11/18/23 documented as of this encounter
--- OUTSIDE RECORDS SUMMARY | 2024-09-28 11:03 | XMS_ITS | Encounter Summary ---
Author Organization [employer] ([place], [place], [place], [place]) Address [address] [place] [address] Care Team Providers Care Plasterer Spot Name Role Phone Lalitha Linh Delilah DAVIS Primary Care Provider [phone] Lizzie Alves PA-C Unavailable [phone] Kaushik Mariscal MD Unavailable Encounter Details Date Type Department Care Team (Late st Contact Info) Description 07/17/2021 Transcribed Document [facility] [place] Family Medicine [address] [place] [address] ProviderChad MD [address] [place] [address] Social History Tobacco Use Types Packs/Day Years Used Date Smoking Tobacco: Never Assessed Family and Community Support Answer Geremias e Recorded Help with Day to Day Activities Not on file 02/27/2023 Feeling Lonely or Isolated Not on file 02/27 Educational Attainment Answer Date Mendez rded Speak language other than Montserratian at home Not on file 02/27/2023 Want [...] 07/17/2021 15:32 EDT Electronically signed by Rekha [facility] Conversion Research And Development Specialist Cerner at 05/27/2022 9:11 PM CDT documented in this encounter Plan of Treatment Not on file documented as of this encounter Visit Diagnoses Not on filedocumented in this encounter Care Teams Plasterer Spot Relationship Specialty Start Date End Date Linh Doty, 8 [facility] [address] [place] [address] PCP - General Family Medicine 11/04/22 Lizzie Alves PA-C [address] [place] [address], [facility] [address] [place] [address] Hospitalist Cardiology 05/27/23 Kaushik Mariscal MD 14[address] [facility] [address] [place] [address] Landscape Technician Electrophysiology 11/18/23 documented as of this encounter
--- OUTSIDE RECORDS SUMMARY | 2024-09-28 11:03 | XMS_ITS | Encounter Summary ---
Author Organization [employer] ([place], [place], [place], [place]) Address [address] [place] [address] Care Team Providers Care Associate Trainer Name Role Phone Lalitha Linhkarthikeyan Mazariegos DO Primary Care Provider [phone] Lizzie Alves PA-C Unavailable [phone] Kaushik Mariscal MD Unavailable Encounter Details Date Type Department Care Team (Late st Contact Info) Description 07/16/2021 Transcribed Document [facility] [place] Family Medicine [address] [place] [address] ProviderChad MD [address] [place] [address] Social History Tobacco Use Types Packs/Day [...] for this consult. Rose Mary Hickey PharmD [phone] Electronically signed by Rekha, [facility] Conversion Water Treatment Plant Supervisor Cerner at 05/27/2022 9:11 PM CDT documented in this encounter Plan of Treatment Not on file documented as of this encounter Visit Diagnoses Not on filedocumented in this encounter Care Teams Associate Trainer Relationship Specialty Start Date End Date Linh Doty, 8 [facility] [address] [place] [address] PCP - General Family Medicine 11/04/22 Lizzie Alves PA-C [address] [place] [address], [facility] [address] [place] [address] Hospitalist Cardiology 05/27/23 Kaushik Mariscal MD 14[address] [facility] [address] [place] [address] Daylight Driller Electrophysiology 11/18/23 documented as of this encounter
--- OUTSIDE RECORDS SUMMARY | 2024-09-28 11:03 | XMS_ITS | Encounter Summary ---
Author Organization [employer] ([place], [place], [place], [place]) Address [address] [place] [address] Care Team Providers Care Highwall Drill Operator Name Role Phone Lalitha Linhkarthikeyan Mazariegos DO Primary Care Provider [phone] Lizzie Alves PA-C Unavailable [phone] Kaushik Mariscal MD Unavailable Encounter Details Date Type Department Care Team (Late st Contact Info) Description 07/16/2021 Transcribed Document [facility] [place] Family Medicine [address] [place] [address] ProviderChad MD [address] [place] [address] Social History Tobacco Use Types Packs/Day [...] scale Pain Score Pre-Intervention : 0 WILL PERTTY PT - 07/18/2021 15:53 EDT Image 1 [...] on filedocumented in this encounter Care Teams Highwall Drill Operator Relationship Specialty Start Date End Date Linh Doty, 8 [facility] [address] [place] [address] PCP - General Family Medicine 11/04/22 Lizzie Alves PA-C [address] [place] [address], [facility] [address] [place] [address] Hospitalist Cardiology 05/27/23 Kaushik Mariscal MD 1401 [facility] [address] [place] [address] Filer Helper Electrophysiology 11/18/23 documented as of this encounter
--- OUTSIDE RECORDS SUMMARY | 2024-09-28 11:03 | XMS_ITS | Encounter Summary ---
Author Organization [employer] ([place], [place], [place], [place]) Address [address] [place] [address] Care Team Providers Care Fixed Wing Aircraft Flight Engineer Name Role Phone Lalitha Linh Delilah DAVIS Primary Care Provider [phone] Lizzie Alves PA-C Unavailable [phone] Kaushik Mariscal MD Unavailable Encounter Details Date Type Department Care Team (Late st Contact Info) Description 08/13/2021 Transcribed Document [facility] [place] Family Medicine [address] [place] [address] ProviderChad MD [address] [place] [address] Social History Tobacco Use Types [...] On: 08/13/2021 13:45 EDT by Bonita Katz, Fountain Worker Primary Insurance Authorization Authorization and Policy Numbers : Insurance 1 Health Plan: [employer] MANAGED MEDICARE Policy Number: [id number] Authorization Number: Insurance Primary Name : [employer] MANAGED MEDICARE Policy Number: [id number] Authorization Status-Primary : Approved Auth/Referral Contact Name-Primary : [place] Reference Number-Primary : [id number] Authorization Number-Primary : [id number] Number of Days Authorized-Primary : 10 Day(s) Authorized Service Begin Date-Primary : 07/16/2021 EDT Authorized Service End Date-Primary : 07/26/2021 EDT Authorization Comments-Primary : Authorized per fax 08/13/21 @ 1140. Approved inpatient stay x11 days. Historical Authorization Comments-Primary : Comment 1: Still pending per website (ERNIE CAMARA Manager Of Application Development 08/09/2021 14:46) Comment 2: Remains pending per portal (WALDO PIÑA RN 08/06/2021 13:43) Comment 3: Per website - Under review. (Bonita Katz, Fountain Worker 07/31/2021 08:56) Comment 4: Discharge summary as well as continued stay clinical 07/23 - discharge faxed. (Bonita Katz, Fountain Worker 07/29/2021 15:50) Comment 5: 07/20-07/22 CLINICALS FAXED [...] Jones, Rn-Utilization Review 07/17/2021 15:17) Bonita Katz, Fountain Worker - 08/13/2021 13:45 EDT Electronically signed by [facility], [facility] Conversion Steel Turner Cerner at 05/27/2022 9:16 PM CDT documented in this encounter Plan of Treatment Not on file documented as of this encounter Visit Diagnoses Not on filedocumented in this encounter Care Teams Fixed Wing Aircraft Flight Engineer Relationship Specialty Start Date End Date Linh Doty, DO 8 [facility] [address] [place] [address] PCP - General Family Medicine 11/04/22 Lizzie Alves PA-C [address] [place] [address], [facility] [address] [place] [address] Hospitalist Cardiology 05/27/23 Kaushik Mariscal MD 14[address] [facility] [address] [place] [address] Mixing House Operator Electrophysiology 11/18/23 documented as of this encounter
--- OUTSIDE RECORDS SUMMARY | 2024-09-28 11:03 | XMS_ITS | Encounter Summary ---
Author Organization [employer] ([place], [place], [place], [place]) Address [address] [place] [address] Care Team Providers Care Airport Ramp Agent Name Role Phone Lalitha Linhkarthikeyan Mazariegos DO Primary Care Provider [phone] Lizzie Alves PA-C Unavailable [phone] Kaushik Mariscal MD Unavailable Encounter Details Date Type Department Care Team (Late st Contact Info) Description 07/16/2021 Transcribed Document [facility] [place] Family Medicine [address] [place] [address] ProviderChad MD [address] [place] [address] Social History Tobacco Use Types [...] 07/16/2021 14:34 EDT Electronically signed by Rekha [facility] Conversion Research Animal Facility Supervisor Cerner at 05/27/2022 9:11 PM CDT documented in this encounter Plan of Treatment Not on file documented as of this encounter Visit Diagnoses Not on filedocumented in this encounter Care Teams Airport Ramp Agent Relationship Specialty Start Date End Date Linh Doty, DO 8 [facility] [address] [place] [address] PCP - General Family Medicine 11/04/22 Lizzie Alves PA-C [address] [place] [address], [address] [place] [address] Hospitalist Cardiology 05/27/23 Kaushik Mariscal MD 14[address] [facility] [address] [place] [address] Automatic Coin Machine Mechanic Electrophysiology 11/18/23 documented as of this encounter
--- OUTSIDE RECORDS SUMMARY | 2024-09-28 11:04 | XMS_ITS | Encounter Summary ---
Author Organization [employer] ([place], [place], [place], [place]) Address [address] [place] [address] Care Team Providers Care Tobacco Prizer Name Role Phone Lalitha Linhkarthikeyan Mazariegos DO Primary Care Provider [phone] Lizzie Alves PA-C Unavailable [phone] Dion Mariscal MD Unavailable Encounter Details Date Type Department Care Team (Late st Contact Info) Description 07/24/2021 Transcribed Document [facility] [place] Family Medicine [address] [place] [address] ProviderChad MD [address] [place] [address] Social History Tobacco Use Types [...] 3 mL, Nebulized Inhalation , Q8H ergocalciferol, 74591 Units= 1 Cap, Oral, Weekly Florastor, 250 [...] Push, Q4H, PRN Electronically signed by Rekha, [facility] Conversion Sander Wooden Pencils Cerner at 05/27/2022 9:13 PM CDT documented in this encounter Plan of Treatment Not on file documented as of this encounter Visit Diagnoses Not on filedocumented in this encounter Care Teams Tobacco Prizer Relationship Specialty Start Date End Date Linh Doty, 8 [facility] [address] [place] [address] PCP - General Family Medicine 11/04/22 Lizzie Alves PA-C [address] [place] [address], [facility] [address] [place] [address] Hospitalist Cardiology 05/27/23 Dion Mariscal MD 14[address] [facility] [address] [place] [address] Electrical Machinist Electrophysiology 11/18/23 documented as of this encounter
--- OUTSIDE RECORDS SUMMARY | 2024-09-28 11:04 | XMS_ITS | Encounter Summary ---
Author Organization [employer] ([place], [place], [place], [place]) Address [address] [place] [address] Care Team Providers Care Regulatory Affairs Spec Name Role Phone Lalitha Linhkarthikeyan Mazariegos DO Primary Care Provider [phone] Lizzie Alves PA-C Unavailable [phone] Kaushik Mariscal MD Unavailable Encounter Details Date Type Department Care Team (Late st Contact Info) Description 07/02/2021 Transcribed Document [facility] Family Medicine [address] [place] [address] ProviderChad MD [address] [place] [address] Social History Tobacco Use Types Packs/Day Years Used Date Smoking Tobacco: Never Assessed Family and Community Support Answer Geremias e Recorded Help with Day to Day Activities Not on file 02/27/2023 Feeling Lonely or Isolated Not on file 02/27 Educational Attainment Answer Date Mendez rded Speak language other than Croatian at home Not on file 02/27/2023 Want [...] On: 07/02/2021 12:34 EDT by ERNIE PAYAN RN-Canvas Marker Initial Assessment I Previously Documented Living Environment [...] Listed? : Yes Medical Durable Power of Printer Slotter Operator Name : no Legal Guardian : No Is Guardianship Needed : No ERNIE PAYAN RN-Canvas Marker - 07/02/2021 12:34 EDT Initial Assessment II Sensory and Motor Deficits : None Current Home Treatments and Equipment : Bedside commode, Shower chair Does the Patient have a Floor to SNF Benefit? : Yes ERNIE PAYAN RN-Canvas Marker - 07/02/2021 12:34 EDT Discharge Needs I Anticipated Discharge Date : 07/02/2021 EDT Anticipated Discharge To, CM : Home with family care Current Home Treatment/Equipment : Current Home Treatment/Equipment No qualifying data available. Post Acute/Home Treatments : Bedside commode, Oxygen therapy, Shower chair Documentation Status Complete : Yes ERNIE PAYAN RN-Canvas Marker - 07/02/2021 12:34 EDT Discharge Needs II Professional Skilled Services : Professional Skilled Services No qualifying data available. Needs Assistance with Transportation : No Patient Discharge Goal : Home ERNIE PAYAN RN-Canvas Marker - 07/02/2021 12:34 EDT Narrative Note Narrative Note : HD# 1. pt in observation status. 07-01: ppm/icd generator change. hx: cad, icm. chf. htn. pad. 02 2l nc. ancef iv. plavix. spoke with Ms. Chandler & her SO, Alexx. [facility] she is adl independent. has mentioned [...] still adamantly declines. spoke with Isis Katz, charge master coordinator. advised of all above. she spoke with pt this am regarding home oxygen & pt declined to her as well. Isis to alert Dr Mariscal of all. will dc home with 02 arranged. ERNIE PAYAN, RN-Canvas Marker - 07/02/2021 12:34 EDT Electronically signed by [facility], [facility] Conversion Immigration Judge Cerner at 05/27/2022 9:02 PM CDT documented in this encounter Plan of Treatment Not on file documented as of this encounter Visit Diagnoses Not on filedocumented in this encounter Care Teams Regulatory Affairs Spec Relationship Specialty Start Date End Date Linh Doty, DO [address] [facility] [address] [place] [address] PCP - General Family Medicine 11/04/22 Lizzie Alves PA-C [address] [facility], [facility] [address] [place] [address] Hospitalist Cardiology 05/27/23 Kaushik Mariscal MD 1401 [facility] [address] [place] [address] Gaming Worker Electrophysiology 11/18/23 documented as of this encounter
--- OUTSIDE RECORDS SUMMARY | 2024-09-28 11:04 | XMS_ITS | Encounter Summary ---
Author Organization [employer] ([place], [place], [place], [place]) Address [address] [place] [address] Care Team Providers Care Retirement Plan Specialist Name Role Phone Lalitha Linhkarthikeyan Mazariegos DO Primary Care Provider [phone] Lizzie Alves PA-C Unavailable [phone] Kaushik Mariscal MD Unavailable Encounter Details Date Type Department Care Team (Late st Contact Info) Description 07/17/2021 Transcribed Document [facility] [place] [facility] [address] [place] [address] ProviderChad MD [address] [place] [address] Social History Tobacco Use Types Packs/Day [...] Listed? : Yes Medical Durable Power of [place] Name : no Legal Guardian : No [...] home with her life partner, Alexx Lewis [phone]. Pt PLOF independent. Pt has a cane, walker, bedside commode, and shower chair. Pt has no home O2. Pt has no history of home health or SNF. Pt's significant other provides transportation and can transport at de. Pt has no concerns related to safety getting in and out of the vehicle. DCP: Home w/ family care AMAURY HURT, OIL TRUCK DRIVER NON-EXEMPT - 07/17/2021 12:36 EDT Electronically signed by Rekha [facility] Conversion Hand Miter Operator Cerner at 05/27/2022 9:03 PM CDT documented in this encounter Plan of Treatment Not on file documented as of this encounter Visit Diagnoses Not on filedocumented in this encounter Care Teams Retirement Plan Specialist Relationship Specialty Start Date End Date Linh Doty, 8 [facility] [address] [place] [address] PCP - General Family Medicine 11/04/22 Lizzie Alves PA-C [address] [place] [address], [facility] [address] [place] [address] Hospitalist Cardiology 05/27/23 Kaushik Mariscal MD [address] [facility] [address] [place] [address] Programming Internship Electrophysiology 11/18/23 documented as of this encounter
--- OUTSIDE RECORDS SUMMARY | 2024-09-28 11:04 | XMS_ITS | Encounter Summary ---
Author Organization [employer] ([place], [place], [place], [place]) Address [address] [place] [address] Care Team Providers Care Lottery Manager Name Role Phone Lalitha Linhkarthikeyan Mazariegos DO Primary Care Provider [phone] Lizzie Alves PA-C Unavailable [phone] Kaushik Mariscal MD Unavailable Encounter Details Date Type Department Care Team (Late st Contact Info) Description 07/17/[address] [facility] Radiology [address] [id number] Yanick Torres MD [address] [place] [address] [place] [address] Social History Tobacco Use Types Packs/Day Years [...] mL: 1,000 mg, 250 mL/Hr, IV Piggyback, [id number] Documented Medications Documented Plavix 75 mg oral [...] 50 mcg inhalation powder: 1 Puff, Inhalation, [id number], rinse mouth and throat after use, 30 [...] 50 mcg inhalation powder 1 Puff, Inhalation, U84ATeg folic acid 1 mg oral tablet 1 [...] 0.9% 250 mL 1,000 mg, IV Piggyback, [id number] Continuous: (0) PRN: (7) acetaminophen 325 mg [...] At risk for sleep apnea / IMO [id number] / Confirmed High cholesterol / SNOMED CT 06507153 / Confirmed Canceled: At risk for sleep apnea / IMO [id number] Canceled: COPD (chronic obstructive pulmonary disease) / SNOMED CT 32288596 Canceled: HTN (hypertension) / SNOMED CT 2693251550, Active Problems (12) Arteriosclerosis At risk for [...] gallop, S1+ S2 No S3 or S4 [place].. Gastrointestinal: Soft, Non-tender, Non-distended, Normal bowel sounds. [...] on filedocumented in this encounter Care Teams Lottery Manager Relationship Specialty Start Date End Date Linh Doty, DO 8 [facility] [address] [place] [address] PCP - General Family Medicine 11/04/22 Lizzie Alves PA-C [address] [place] [address], [facility] [address] [place] [address] Hospitalist Cardiology 05/27/23 Kaushik Mariscal MD 1401 [facility] [address] [place] [address] Copy Writer Electrophysiology 11/18/23 documented as of this encounter
--- OUTSIDE RECORDS SUMMARY | 2024-09-28 11:04 | XMS_ITS | Encounter Summary ---
Author Organization [employer] ([place], [place], [place], [place]) Address [address] [place] [address] Care Team Providers Care Retail Management Trainee Name Role Phone Lalitha Linhkarthikeyan Mazariegos DO Primary Care Provider [phone] Lizzie Alves PA-C Unavailable [phone] Kaushik Mariscal MD Unavailable Encounter Details Date Type Department Care Team (Late st Contact Info) Description 07/17/2021 Transcribed Document [facility] Family Medicine [address] [place] [address] ProviderChad MD [address] [place] [address] Social History Tobacco Use Types [...] m - 1,000 mg, IV Piggyback, Inj, H01ONzz, infuse over 1 Hour(s) Cardiovascular carvedilol - [...] Normal strength, No tenderness. Integumentary: Warm, Dry, [place], No pallor, No rash, ICD site left [...] (MADELEINE 08) 3.5 (MADELEINE 07) , ACC: [id number] ORDER: Culture Blood DATE: 07/16/2021 12:39 SOURCE: Blood SITE: Reports Pre 07/17/2021 06:01 Culture less than 24 Hrs old == ACC: [id number] ORDER: Culture Blood DATE: 07/16/2021 12:39 SOURCE: Blood SITE: Reports Pre 07/17/2021 06:01 Culture less than 24 Hrs old == . Chest x-ray results Radiology Results (Last 48 hours) [id number] -- 07/16/2021 14:13 CR Chest 1 Vw [...] on filedocumented in this encounter Care Teams Retail Management Trainee Relationship Specialty Start Date End Date Linh Doty, DO 8 [facility] [address] [place] [address] PCP - General Family Medicine 11/04/22 Lizzie Alves PA-C 1401 [facility] [address] [place] [address] Hospitalist Cardiology 05/27/23 Kaushik Mariscal MD 1401 [facility] [address] [place] [address] Interviewing Clerk Electrophysiology 11/18/23 documented as of this encounter
--- OUTSIDE RECORDS SUMMARY | 2024-09-28 11:04 | XMS_ITS | Encounter Summary ---
Author Organization [employer] ([place], [place], [place], [place]) Address [address] [place] [address] Care Team Providers Care Gimp Buttonhole Machine Operator Name Role Phone Lalitha Linhkarthikeyan Mazariegos DO Primary Care Provider [phone] Lizzie Alves PA-C Unavailable [phone] Kaushik Mariscal MD Unavailable Encounter Details Date Type Department Care Team (Late st Contact Info) Description 07/24/2021 Transcribed Document [facility] Family Medicine [address] [place] [address] ProviderChad MD [address] [place] [address] Social History Tobacco Use Types [...] On: 07/24/2021 11:33 EDT by Mayra Vann Community Service Aide Rn Care Management Progress Note Discharge Arrangements [...] Attend Multidisciplinary Rounds? : Yes Mayra Vann Community Service Aide Rn - 07/24/2021 11:33 EDT Narrative Progress Note Narrative Progress Note : hd 8 elos 5 low rar patient to have AICD removed today r/t infection dcp- home soon with [facility] iv abx and lisa hh Historical Progress Note : hd 7 elos 5 low rar Plan for AICD removal 07/24 dcp- home with iv abx and hh after PPm removal Mayra Vann Community Service Aide Rn - 07/23/21 13:57:38 hd 6 elos 5 low rar patient has home abx arranged with [facility], planned for dc today however patient now to have AICD removed on 07/24 dcp- home ?iv abx after aicd removal Mayra Vann, Community Service Aide Rn - 07/22/21 11:22:31 hd 3 elos 5 low rar patient is set up with chika [facility] to teach patient abx administration saturday 07/22. Per EP, plan to dc patient saturday 07/22. Lisa for HH. Mayra Vann, Community Service Aide Rn - 07/19/21 13:36:36 hd 2 low rar patient has orders from ID r/t iv abx and picc care but patient has no orders for PICC placement at this time, CM has reached out to ID. [facility]x [facility]. patient will also need hh dcp- home with hh and iv abx Mayra Vann, Community Service Aide Rn - 07/18/21 16:10:37 Mayra Vann Community Service Aide Rn - 07/24/2021 11:33 EDT Electronically signed by [facility], [facility] Conversion Electrical And Instrument Engineer Cerner at 05/27/2022 9:11 PM CDT documented in this encounter Plan of Treatment Not on file documented as of this encounter Visit Diagnoses Not on filedocumented in this encounter Care Teams Gimp Buttonhole Machine Operator Relationship Specialty Start Date End Date Linh Doty, DO 8 [facility] [address] [place] [address] PCP - General Family Medicine 11/04/22 Lizzie Alves PA-C 1401 [facility], [facility] [address] [place] [address] Hospitalist Cardiology 05/27/23 Kaushik Mariscal MD 1401 [facility] [address] [place] [address] Lpn Home Health Electrophysiology 11/18/23 documented as of this encounter
--- OUTSIDE RECORDS SUMMARY | 2024-09-28 11:04 | XMS_ITS | Encounter Summary ---
Author Organization [employer] ([place], [place], [place], [place]) Address [address] [place] [address] Care Team Providers Care Stand Up Comedian Name Role Phone Lalitha Linhkarthikeyan Mazariegos DO Primary Care Provider [phone] Lizzei Alves PA-C Unavailable [phone] Kaushik Mariscal MD Unavailable Encounter Details Date Type Department Care Team (Late st Contact Info) Description 07/17/2021 Transcribed Document [facility] [place] Medicine [address] [place] [address] ProviderChad MD 123 [place] [address] Social History Tobacco Use Types [...] Policy Numbers : Insurance 1 Health Plan: [employer] MANAGED MEDICARE Policy Number: [id number] Authorization Number: Insurance Primary Name : [employer] MANAGED MEDICARE Policy Number: [id number] Authorization Status-Primary : Awaiting callback Authorized Service Begin Date-Primary : 07/18/2021 EDT Authorization Comments-Primary : REF# [id number] DUNAWAY. CLINICAL FAXED VIA [facility] Historical Authorization Comments-Primary : No Authorization Comments Found Khushi Jones Rn-Utilization Review - 07/17/2021 15:17 EDT Electronically signed by Rekha [facility] Conversion Heel Caser Cerner at 05/27/2022 9:07 PM CDT documented in this encounter Plan of Treatment Not on file documented as of this encounter Visit Diagnoses Not on filedocumented in this encounter Care Teams Stand Up Comedian Relationship Specialty Start Date End Date Linh Doty, DO 8 [facility] [address] [place] [address] PCP - General Family Medicine 11/04/22 Lizzie Alves PA-C [address] [place] [address], [facility] [address] [place] [address] Hospitalist Cardiology 05/27/23 Kaushik Mariscal MD 1401 [facility] [address] [place] [address] Fur Polisher Electrophysiology 11/18/23 documented as of this encounter
--- OUTSIDE RECORDS SUMMARY | 2024-09-28 11:04 | XMS_ITS | Encounter Summary ---
Author Organization [employer] ([place], [place], [place], [place]) Address [address] [place] [address] Care Team Providers Care Third Miller Name Role Phone Lalitha Linh Delilah DAVIS Primary Care Provider [phone] Lizzie Alves PA-C Unavailable [phone] Kaushik Mariscal MD Unavailable Encounter Details Date Type Department Care Team (Late st Contact Info) Description 07/02/2021 Transcribed Document [facility] Family Medicine [address] [place] [address] ProviderChad MD [address] [place] [address] Social History Tobacco Use Types Packs/Day Years Used Date Smoking Tobacco: Never Assessed Family and Community Support Answer Geremias e Recorded Help with Day to Day Activities Not on file 02/27/2023 Feeling Lonely or Isolated Not on file 02/27 Educational Attainment Answer Date Mendez rded Speak language other than Belgian at home Not on file 02/27/2023 Want [...] 07/02/2021 14:53 EDT Electronically signed by Rekha [facility] Conversion Technical Translator Cerner at 05/27/2022 9:00 PM CDT documented in this encounter Plan of Treatment Not on file documented as of this encounter Visit Diagnoses Not on filedocumented in this encounter Care Teams Third Miller Relationship Specialty Start Date End Date Linh Doty, DO 8 [facility] [address] [place] [address] PCP - General Family Medicine 11/04/22 Lizzie Alves PA-C [address] [place] [address], [facility] [address] [place] [address] Hospitalist Cardiology 05/27/23 Kaushik Mariscal MD 1401 [facility] [address] [place] [address] Cio Electrophysiology 11/18/23 documented as of this encounter
--- OUTSIDE RECORDS SUMMARY | 2024-09-28 11:04 | XMS_ITS | Encounter Summary ---
Author Organization [employer] ([place], [place], [place], [place]) Address [address] [place] [address] Care Team Providers Care Living Nurse Name Role Phone Lalitha Linhkarthikeyan Mazariegos DO Primary Care Provider [phone] Lizzie Alves PA-C Unavailable [phone] Kaushik Mariscal MD Unavailable Encounter Details Date Type Department Care Team (Late st Contact Info) Description 08/27/2021 Transcribed Document [facility] [place] [address] [place] [address] ProviderCahd MD 123 [place] [address] Social History Tobacco Use [...] 08/27/2021 11:04 EDT Electronically signed by Rekha, [facility] Conversion Carrier Washer Cerner at 05/27/2022 9:09 PM CDT documented in this encounter Plan of Treatment Not on file documented as of this encounter Visit Diagnoses Not on filedocumented in this encounter Care Teams Living Nurse Relationship Specialty Start Date End Date Linh Doty, DO 8 [facility] [address] [place] [address] PCP - General Family Medicine 11/04/22 Lizzie Alves PA-C 1401 [facility], [facility] [address] [place] [address] Hospitalist Cardiology 05/27/23 Kaushik Mariscal MD 1401 [facility] [address] [place] [address] Editorial Director Electrophysiology 11/18/23 documented as of this encounter
--- OUTSIDE RECORDS SUMMARY | 2024-09-28 11:04 | XMS_ITS | Encounter Summary ---
Author Organization [employer] ([place], [place], [place], [place]) Address [address] [place] [address] Care Team Providers Care Director Community Organization Name Role Phone Lalitha Linhkarthikeyan Mazariegos DO Primary Care Provider [phone] Lizzie Alves PA-C Unavailable [phone] Dion Mariscal MD Unavailable Encounter Details Date Type Department Care Team (Late st Contact Info) Description 08/27/2021 Transcribed Document [facility] Family Medicine [address] [place] [address] ProviderChad MD [address] [place] [address] Social History Tobacco Use Types [...] Historical ProviderMD - 08/27/2021 1:06 PM CDT [facility] [place] [address] LENA MENDOZA :1965 Visit Time:08/26/2021 [...] Bring discharge instructions with you Where: [address] [place] [address]- Follow Up with LINH WILLIAM DO-FAM When 09/04/2021 10:00 AM EDT Comments PCP appt made, Bring discharge instructions with you Where: [address] [place] [address]- Follow Up with DION MARISCAL When 09/03/2021 02:00 PM EDT Comments wound device check in 1 week scheduled for 09/03/2021 at [address] Mariscal Where: [address] [facility] [address] [place] [address]- Business (1) Medications What How Much When Instructions Next Dose cephalexin (Keflex 500 mg oral capsule) 1 Capsule(s) Oral Three Times A Day Duration: 7 Day(s) Pickup at [facility] nicotine (nicotine 14 mg/ 24 hr transdermal film, extended release) 1 Patch(es) TransDermal Every Day Duration: 14 Day(s) Pickup at [facility] acetaminophen-hydrocodone (acetaminophen-HYDROcodone 325 mg-5 mg oral tablet) 1 Tablet(s) Oral Every 8 Hours as needed for for pain carvedilol (carvedilol 12.5 mg oral tablet) 1 Tablet(s) Oral Two Times A Day ergocalciferol (Vitamin D2 1.25 mg (50,000 intl units) oral capsule) 1 Capsule(s) Oral Weekly fluticasone nasal (fluticasone 50 mcg/ inh nasal spray) 2 Pacolet(s) Nasal Every Day as needed for Nasal [...] Oral At Bedtime Pharmacy Information [facility]: [address] [place] [address] [address] [place], [place] [id number] [phone] Take your medications faithfully. Do NOT skip [...] these instructions at home: Medicines ??? Take iuec-lpo-zvkrddx and prescription medicines only as told by [...] or bruising over the incision. ??? Take qspm-lyz-eihmlmg and prescription medicines only as told by [...] provider. Document Revised: 12/28/2019 Document Reviewed: 12/28/2019 [employer] Patient Education ?? 202 [employer] General Anesthesia, Adult, Care After This [...] activities are safe for you. ??? Take atyd-lhq-snookbv and prescription medicines only as told by [...] provider. Document Revised: 10/11/2020 Document Reviewed: 05/10/2020 [employer] Patient Education ?? 2020 [facility] [facility]. Heart-Healthy Eating Plan Heart-healthy meal planning includes: [...] Fats and oils Meat fat, or shortening. [place] butter, hydrogenated oils, palm oil, coconut oil, [...] provider. Document Revised: 04/01/2018 Document Reviewed: 03/05/2018 [employer] Patient Education ?? 2020 Onsite Care. nicotine (transdermal) (AMADA [place] teen) Belkis Hines [...] may report side effects to FDA at 7-106-TGB-8907. What other drugs will affect nicotine? Other drugs may affect nicotine transdermal, including prescription and iirh-rfl-cobfhnu medicines, vitamins, and herbal products. Tell your [...] to ensure that the information provided by [employer]. ('[employer]') is accurate, up-to-date, and complete, but no guarantee is made to that effect. Drug information contained herein may be time sensitive. [employer] information has been compiled for use by healthcare practitioners and consumers in the [place] and therefore [employer] does not warrant that uses outside of the [place] are appropriate, unless specifically indicated otherwise. [employer] drug information does not endorse drugs, diagnose patients or recommend therapy. [employer] drug information is an informational resource designed [...] effective or appropriate for any given patient. [employer] does not assume any responsibility for any aspect of healthcare administered with the aid of information [employer] provides. The information contained herein is not intended to cover all possible uses, directions, precautions, warnings, drug interactions, allergic reactions, or adverse effects. If you have questions about the drugs you are taking, check with your doctor, nurse or pharmacist. Copyright 3346-1215 [employer]. Version: 3.01. Revision Date: 09/16/2018. cephalexin (sef [...] may report side effects to FDA at 3-064-GFB-3761. What other drugs will affect cephalexin? Tell your doctor about all your other medicines, especially: ?? metformin; or ?? probenecid. This list is not complete. Other drugs may affect cephalexin, including prescription and taxz-sus-qeaycpu medicines, vitamins, and herbal products. Not all [...] to ensure that the information provided by [employer]. ('[employer]') is accurate, up-to-date, and complete, but no guarantee is made to that effect. Drug information contained herein may be time sensitive. [employer] information has been compiled for use by healthcare practitioners and consumers in the [place] and therefore [employer] does not warrant that uses outside of the [place] are appropriate, unless specifically indicated otherwise. [employer] drug information does not endorse drugs, diagnose patients or recommend therapy. [employer] drug information is an informational resource designed [...] effective or appropriate for any given patient. [employer] does not assume any responsibility for any aspect of healthcare administered with the aid of information [employer] provides. The information contained herein is not intended to cover all possible uses, directions, precautions, warnings, drug interactions, allergic reactions, or adverse effects. If you have questions about the drugs you are taking, check with your doctor, nurse or pharmacist. Copyright 8527-1244 [employer]. Version: 10.03. Revision Date: 02/13/2020. Emergency Awareness [...] Assistance with quitting is available by contacting 8-224-XQGT-NOW. This is a free resource providing counseling, [...] range between ( 0.0 and 7.0 ) Sierra #: 0.62 K/uL -- Normal range between ( 0.16 and 1.00 ) Eos #: 0.21 x10(3)/uL -- Normal range between ( 0.00 and 0.80 ) Sierra %: 6.9 % -- Normal range between [...] was given the opportunity to ask questions. Patient/Manufacturing Cost Estimator Name: Patient/Manufacturing Cost Estimator Signature: Relationship to Patient: Clinician/Hospital Manufacturing Cost Estimator Signature: Date: documented in this encounter Plan of Treatment Not on file documented as of this encounter Visit Diagnoses Not on filedocumented in this encounter Care Teams Director Community Organization Relationship Specialty Start Date End Date Linh William, DO 8 [facility] [address] [place] [address] PCP - General Family Medicine 11/04/22 Lizzie Alves PA-C [address] [place] [address], [facility] [address] [place] [address] Hospitalist Cardiology 05/27/23 Dion Mariscal MD [address] [facility] [address] [place] [address] Granite Cutter Apprentice Electrophysiology 11/18/23 documented as of this encounter
--- OUTSIDE RECORDS SUMMARY | 2024-09-28 11:04 | XMS_ITS | Encounter Summary ---
Author Organization [employer] ([place], [place], [place], [place]) Address [address] [place] [address] Care Team Providers Care High Voltage Electrician Name Role Phone Lalitha Linh Delilah DAVIS Primary Care Provider [phone] Lizzie Alves PA-C Unavailable [phone] Kaushik Mariscal MD Unavailable Encounter Details Date Type Department Care Team (Late st Contact Info) Description 07/01/2021 Transcribed Document [facility] Family Medicine [address] [place] [address] ProviderChad MD [address] [place] [address] Social History Tobacco Use Types Packs/Day [...] 07/01/2021 22:37 EDT Electronically signed by Rekha [facility] Conversion Aircraft Maintenance Supervisor Cerner at 05/27/2022 9:07 PM CDT documented in this encounter Plan of Treatment Not on file documented as of this encounter Visit Diagnoses Not on filedocumented in this encounter Care Teams High Voltage Electrician Relationship Specialty Start Date End Date Linh Doty, 8 [facility] [address] [place] [address] PCP - General Family Medicine 11/04/22 Lizzie Alves PA-C [address] [place] [address] [address] [place] [address] Hospitalist Cardiology 05/27/23 Kaushik Mariscal MD 1401 [facility] [address] [place] [address] Junior Qa Analyst Electrophysiology 11/18/23 documented as of this encounter
--- OUTSIDE RECORDS SUMMARY | 2024-09-28 11:04 | XMS_ITS | Encounter Summary ---
Author Organization [employer] ([place], [place], [place], [place]) Address [address] [place] [address] Care Team Providers Care Hr Analyst Name Role Phone Lalitha Linhkarthikeyan Mazariegos DO Primary Care Provider [phone] Lizzie Alves PA-C Unavailable [phone] Dion Mariscal MD Unavailable Encounter Details Date Type Department Care Team (Late st Contact Info) Description 08/27/2021 Transcribed Document [facility] [place] Family Medicine [address] [place] [address] ProviderChad MD [address] [place] [address] Social History Tobacco Use Types [...] MD-REJI No qualifying data available [facility] Cardiology Discharge Note - EP Primary Leather Goods Assembler: Dr. Benavidez PCP: Linh Doty Consults: NONE [...] 08/08/2021 for hospital follow-up from admission to [facility] from 07/16/2021-07/25/[address] her [facility] AICD on 07/24/[address] Moshe Hoffman. Incision is well-healed and without signs or symptoms of infection, drainage, or erythema. Patient will complete her last course of antibiotics on 08/15/2021 and will follow-up with [facility] on 08/21/2021. Provided that [...] Normal range of motion. Integumentary: Warm, Dry, [place]. Neurologic: Alert, Oriented. Psychiatric: Cooperative, Appropriate mood & affect. Telemetry: SR 64 Procedures this admission: Conclusion: Successful Procedure(s) of: 1. Single CHAMBER ICD SYSTEM PLACEMENT - [facility] Discharge Diagnoses: 1. Successful implantation of [...] BEDTIME 14. Vitamin D (Ergocalciferol) 1.25 MG (61017 UT) Oral Capsule; TAKE ONE CAPSULE BY MOUTH ONCE A WEEK Allergies (1) Active Reaction NKDA Disposition: Patient sent home in stable condition with family support. Discharge Instructions: Cardiac Diet. Post Cath Instructions. Activity as tolerated Smoking cessation and risk factor modification addressed - requesting smoking patches which we have asked pharmacy to fill Followup Appointments: PCP in 5 - 7 days. Primary Leather Goods Assembler in [address] Mariscal Lynne 09/03/2021 at 1400 Patient has been instructed on and verbalized an understanding of the above discharge instructions. Plan has been discussed and is in agreement with Dr. Suzy Katz, SARAH documenting for Dr. Mariscal Electronically signed by [facility], [facility] Conversion Bottoming Room Supervisor Cerner at 05/27/2022 9:17 PM CDT documented in this encounter Plan of Treatment Not on file documented as of this encounter Visit Diagnoses Not on filedocumented in this encounter Care Teams Hr Analyst Relationship Specialty Start Date End Date Linh Doty, DO 8 [facility] [address] [place] [address] PCP - General Family Medicine 11/04/22 Lizzie Alves PA-C [address] [place] [address], [facility] [address] [place] [address] Hospitalist Cardiology 05/27/23 Dion Mariscal MD [address] [facility] [address] [place] [address] Leather Goods Assembler Electrophysiology 11/18/23 documented as of this encounter
--- OUTSIDE RECORDS SUMMARY | 2024-09-28 11:04 | XMS_ITS | Encounter Summary ---
Author Organization [employer] ([place], [place], [place], [place]) Address [address] [place] [address] Care Team Providers Care Merchandise Planning Manager Name Role Phone Lalitha Linhkarthikeyan Mazariegos DO Primary Care Provider [phone] Lizzie Alves PA-C Unavailable [phone] Kaushik Mariscal MD Unavailable Encounter Details Date Type Department Care Team (Late st Contact Info) Description 07/24/2021 Transcribed Document [facility] [place] [address] [place] [address] ProviderChad MD [address] [place] [address] Social History Tobacco Use Types [...] Historical ProviderMD - 07/24/2021 12:00 PM CDT [facility] Main OR PACU Summary Primary Physician: ABBE HOLLEY MD-CAR Finalized Date/Time: 07/24/21 16:21:14 Pt. Name: LENA MENDOZA /Sex: 1965 Female Med Rec #: [id number] Physician: REYNALDO CURIEL MD-INT Financial #: [id number] Pt. Type: I Room/Bed: [facility]/ Admit/Disch: 07/16/21 14:13:00 - Institution: [facility] Main OR PACU I Case Times Entry 1 In PACU I 07/24/21 14:50:00 Ready for PACU 07/24/21 15:44:00 Discharge Discharge from PACU 07/24/21 15:45:00 I Last Modified By: Rebecca Sweet RN-PATIENT CARE BEDSIDE NON-EXEMPT 07/24/21 16:20:58 [facility] Main OR PACU Acuity Entry 1 Start Time 07/24/21 15:44:00 Stop Time 07/24/21 15:45:00 Acuity Level [facility] PACU Acuity I Last Modified By: Rebecca Sweet RN-PATIENT CARE BEDSIDE NON-EXEMPT 07/24/21 16:21:13 Finalized By: Rebecca Sweet RN-PATIENT CARE BEDSIDE NON-EXEMPT Document Signatures Signed By: Rebecca Sweet RN-PATIENT CARE BEDSIDE NON-EXEMPT 07/24/21 16:21 Electronically signed by Rekha [facility] Conversion Advice Nurse Cerner at 05/27/2022 9:25 PM CDT documented in this encounter Plan of Treatment Not on file documented as of this encounter Visit Diagnoses Not on filedocumented in this encounter Care Teams Merchandise Planning Manager Relationship Specialty Start Date End Date Linh Doty, [address] [place] [address] PCP - General Family Medicine 11/04/22 Lizzie Alves PA-C [address] , [facility] [address] [place] [address] Hospitalist Cardiology 05/27/23 [place] [address] [place] [address] [place] [address] Auto Tech Electrophysiology 11/18/23 documented as of this encounter
--- OUTSIDE RECORDS SUMMARY | 2024-09-28 11:04 | XMS_ITS | Encounter Summary ---
Author Organization [employer] ([place], [place], [place], [place]) Address [address] [place] [address] Care Team Providers Care Mask Layout Designer Name Role Phone Lalitha Linhkarthikeyan Mazariegos DO Primary Care Provider [phone] Lizzie Alves PA-C Unavailable [phone] Kaushik Mariscal MD Unavailable Encounter Details Date Type Department Care Team (Late st Contact Info) Description 08/27/2021 Transcribed Document [facility] [place] Family Medicine [address] [place] [address] ProviderChad MD [address] [place] [address] Social History Tobacco Use Types [...] On: 08/27/2021 12:15 EDT by Mayra Vann Feedmobile Driver Rn Final Discharge Planning Discharge Arrangements : [...] : Yes Discharge To Care Management : Home/Residential/Shelter or Self Care -01 Mayra Vann Feedmobile Driver Rn - 08/27/2021 12:15 EDT Final Narrative Note Final Narrative Note : observation patient with orders to dc home. SO at bedside to transport patient home. no identified cm needs Mayra Vann Feedmobile Driver Rn - 08/27/2021 12:15 EDT documented in this encounter Plan of Treatment Not on file documented as of this encounter Visit Diagnoses Not on filedocumented in this encounter Care Teams Mask Layout Designer Relationship Specialty Start Date End Date Linh Doty DO 8 [facility] [address] [place] [address] PCP - General Family Medicine 11/04/22 Lizzie Alves PA-C [address] , [facility] [address] [place] [address] Hospitalist Cardiology 05/27/23 Kaushik Mariscal MD [address] [place] [address] [place] [address] Washtub Worker Helper Electrophysiology 11/18/23 documented as of this encounter
--- OUTSIDE RECORDS SUMMARY | 2024-09-28 11:04 | XMS_ITS | Encounter Summary ---
Author Organization [employer] ([place], [place], [place], [place]) Address [address] [place] [address] Care Team Providers Care Supervisor Tumblers Name Role Phone Lalitha Linh Delilah DAVIS Primary Care Provider [phone] Lizzie Alves PA-C Unavailable [phone] Kaushik Mariscal MD Unavailable Encounter Details Date Type Department Care Team (Late st Contact Info) Description 07/24/2021 Transcribed Document [facility] [place] Family Medicine [address] [place] [address] ProviderChad MD [address] [place] [address] Social History Tobacco Use Types [...] 07/24/2021 20:08 EDT Electronically signed by Rekha [facility] Conversion Pathology Lab Technician Cerner at 05/27/2022 9:17 PM CDT documented in this encounter Plan of Treatment Not on file documented as of this encounter Visit Diagnoses Not on filedocumented in this encounter Care Teams Supervisor Tumblers Relationship Specialty Start Date End Date Lihn Doty, 8 [facility] [address] [place] [address] PCP - General Family Medicine 11/04/22 Lizzie Alves PA-C [address] [place] [address], [facility] [address] [place] [address] Hospitalist Cardiology 05/27/23 Kaushik Mariscal MD [address] [facility] [address] [place] [address] Psychology Associate Electrophysiology 11/18/23 documented as of this encounter
--- OUTSIDE RECORDS SUMMARY | 2024-09-28 11:04 | XMS_ITS | Encounter Summary ---
Author Organization [employer] ([place], [place], [place], [place]) Address [address] [place] [address] Care Team Providers Care Pot Fireman Name Role Phone Lalitha Linhkarthikeyan Mazariegos DO Primary Care Provider [phone] Lizzie Alves PA-C Unavailable [phone] Kaushik Mariscal MD Unavailable Encounter Details Date Type Department Care Team (Late st Contact Info) Description 07/17/2021 Transcribed Document [facility] [place] [address] [place] [address] ProviderChad MD [address] [place] [address] Social History Tobacco Use Types [...] Policy Numbers : Insurance 1 Health Plan: [employer] MANAGED MEDICARE Policy Number: [id number] Authorization Number: Insurance Primary Name : [facility] MANAGED MEDICARE Policy Number: [id number] Authorization Status-Primary : Awaiting callback Reference Number-Primary : [id number] Authorized Service Begin Date-Primary : 07/16/2021 EDT Authorization Comments-Primary : CLINICAL FAXED VIA [employer] Historical Authorization Comments-Primary : Comment 1: REF# [id number] DUNAWAY. CLINICAL FAXED [employer] (Khushi Jones Rn-Utilization Review 07/17/2021 15:17) Khushi Jones Rn-Utilization Review - 07/17/2021 15:22 EDT Electronically signed by [facility] Conversion Kerrick Kleaner Operator Cerner at 05/27/2022 8:59 PM CDT documented in this encounter Plan of Treatment Not on file documented as of this encounter Visit Diagnoses Not on filedocumented in this encounter Care Teams Pot Fireman Relationship Specialty Start Date End Date Linh Doty, DO 8 [facility] [address] [place] [address] PCP - General Family Medicine 11/04/22 Lizzie Alves PA-C 1401 [facility], [facility] [address] [place] [address] Hospitalist Cardiology 05/27/23 Kaushik Mariscal MD 14[address] [facility] [address] [place] [address] Water Plant Operator Electrophysiology 11/18/23 documented as of this encounter
--- OUTSIDE RECORDS SUMMARY | 2024-09-28 11:04 | XMS_ITS | Clinical Summary ---
Author Organization [facility] Address [address] [place] [id number] Care Team Providers Care Polisher Brass Name Role Phone Provider, No Known Primary [...] - Td or Tdap) 01/29/2031 021 Insurance [facility] [place] [address] Care Teams Polisher Brass Relationship Specialty Start Date End Date Provider, No Known [facility] [place] [address] PCP - General 07/31/21
--- OUTSIDE RECORDS SUMMARY | 2024-09-28 11:04 | XMS_ITS | Encounter Summary ---
Author Organization [employer] ([place], [place], [place], [place]) Address [address] [place] [address] Care Team Providers Care Foreign Languages Department Chair Name Role Phone Lalitha Linhkarthikeyan Mazariegos DO Primary Care Provider [phone] Lizzie Alves PA-C Unavailable [phone] Dion Mariscal MD Unavailable Encounter Details Date Type Department Care Team (Late st Contact Info) Description 07/17/2021 Transcribed Document [facility] [place] [address] [place] [address] ProviderChad MD [address] [place] [address] Social History Tobacco Use Types Packs/Day Years Used Date Smoking Tobacco: Never Assessed Family and Community Support Answer Geremias e Recorded Help with Day to Day Activities Not on file 02/27/2023 Feeling Lonely or Isolated Not on file 02/27 Educational Attainment Answer Date Mendez rded Speak language other than Andorran at home Not on file 02/27/2023 Want [...] 07/17/2021 8:50 AM CDT Patient: LENA MENDOZA [facility]: [id number] Age: 55 years Sex: Female : 1965 [...] mL: 1,000 mg, 250 mL/Hr, IV Piggyback, [id number] Documented Medications Documented Plavix 75 mg oral [...] 50 mcg inhalation powder: 1 Puff, Inhalation, [id number], rinse mouth and throat after use, 30 [...] 50 mcg inhalation powder 1 Puff, Inhalation, [id number] folic acid 1 mg oral tablet 1 [...] 0.9% 250 mL 1,000 mg, IV Piggyback, [id number] Continuous: (0) PRN: (7) acetaminophen 325 mg [...] All Problems High cholesterol / SNOMED CT 96397061 / Confirmed PAD (peripheral artery disease) / SNOMED CT 7996958495 / Confirmed Chronic CHF / SNOMED CT 578260963 / Confirmed Current smoker / SNOMED CT 495284291 / Confirmed Arteriosclerosis / SNOMED CT 032307225 / Confirmed Intermittent claudication / SNOMED CT 877650199 / Confirmed Cardiomyopathy / SNOMED CT 627426828 / Confirmed History of LA (myocardial infarction) / SNOMED CT 5123776849 / Confirmed Pacemaker / SNOMED CT 2896319658 / Confirmed Stented coronary artery / SNOMED CT 7374527605 / Confirmed Gout / SNOMED CT 668070196 / Confirmed At risk for sleep apnea / IMO 84525145 / Confirmed Resolved: History of ventricular tachycardia / SNOMED CT 6360858419 ICD placed in past for arrythmia. Canceled: HTN (hypertension) / SNOMED CT 9239217737 Canceled: COPD (chronic obstructive pulmonary disease) / SNOMED CT 72296922 Canceled: At risk for sleep apnea / IMO 40338443 Canceled: History of ischemic cardiomyopathy / SNOMED CT 098864611 Canceled: Abdominal aortic stenosis / SNOMED CT 249018048 Canceled: Shortness of breath / SNOMED CT 324463039, Active Problems (12) Arteriosclerosis At risk for sleep apnea Cardiomyopathy Chronic CHF Current smoker Gout High cholesterol History of LA (myocardial infarction) Intermittent claudication Pacemaker PAD (peripheral [...] Normal range of motion. Integumentary: Warm, Dry, [place]. Neurologic: Alert, Oriented. Psychiatric: Cooperative, Appropriate mood [...] plans to follow. Electronically signed by Rekha [facility] Conversion Director Museum Or Zoo Cerner at 05/27/2022 8:59 PM CDT documented in this encounter Plan of Treatment Not on file documented as of this encounter Visit Diagnoses Not on filedocumented in this encounter Care Teams Foreign Languages Department Chair Relationship Specialty Start Date End Date Linh Doty, DO 8 [facility] [address] [place] [address] PCP - General Family Medicine 11/04/22 Lizzie Alves PA-C [address], [address] [place] [address] Hospitalist Cardiology 05/27/23 Dion Mariscal MD [address] [facility] [address] [place], [place] [address] Stock Receiver Electrophysiology 11/18/23 documented as of this encounter
--- OUTSIDE RECORDS SUMMARY | 2024-09-28 11:04 | XMS_ITS | Encounter Summary ---
Author Organization [employer] ([place], [place], [place], [place]) Address [address] [place] [address] Care Team Providers Care Grain Picker Name Role Phone Lalitha Linh Delilah DAVIS Primary Care Provider Lizzie Alves PA-C Unavailable [phone] Kaushik Mariscal MD Unavailable Encounter Details Date Type Department Care Team (Late st Contact Info) Description 07/01/2021 Transcribed Document [facility] [place] [address] [place] [address] ProviderChad MD [address] [place] [address] Social History Tobacco Use Types Packs/Day [...] Obtained From : Patient Primary Language : Luxembourger Preferred Communication Mode : Verbal Communication Barrier : None Nursery Teacher Needed : No Rere Ramos RN - [...] Scale Risk Level : 0-24 Low Risk [place] Fall Interventions : Adequate lighting, Assistive devices [...] Source : Stated Height Entry Format : [place] Height, Feet : 5 ft(Converted to: 152 cm, 60 Inch) Height, Inches : 7 Inch(Converted to: 0 ft 7 Inch, 17.78 cm) Clinical Height : 170.18 cm Weight Source : Standing scale Weight Entry Format : [place] Clinical Dosing Weight : 61.36 kg Weight, Pounds : 135 lb Body Surface Area (BSA) : 1.71 m2 Body Mass Index : 21.2 kg/m2 [place] Body Weight : 61 kg Rere Ramos [...] Rere Ramos RN - 07/01/2021 18:05 EDT [place] Suicide Severity Rating Scale (C-SSRS) CSSRS Past [...] - 07/01/2021 18:05 EDT Electronically signed by [facility], [facility] Conversion Clinical Project Manager Cerner at 05/27/2022 9:19 PM CDT documented in this encounter Plan of Treatment Not on file documented as of this encounter Visit Diagnoses Not on filedocumented in this encounter Care Teams Grain Picker Relationship Specialty Start Date End Date Linh Doty, DO 8 [facility] [address] [place] [address] PCP - General Family Medicine 11/04/22 Lizzie Alves PA-C 1401 [facility], [facility] [address] [place] [address] Hospitalist Cardiology 05/27/23 Kaushik Mariscal MD 1401 [facility] [address] [place] [address] Cold Press Loader Electrophysiology 11/18/23 documented as of this encounter
--- OUTSIDE RECORDS SUMMARY | 2024-09-28 11:04 | XMS_ITS | Encounter Summary ---
Author Organization [employer] ([place], [place], [place], [place]) Address [address] [place] [address] Care Team Providers Care Counter Clerk Tractor Parts Name Role Phone Lalitha Linhkarthikeyan Mazariegos DO Primary Care Provider [phone] Lizzie Alves PA-C Unavailable [phone] Kaushik Mariscal MD Unavailable Encounter Details Date Type Department Care Team (Late st Contact Info) Description 07/24/2021 Transcribed Document [facility] [place] [address] [place] [address] ProviderChad MD [address] [place] [address] Social History Tobacco Use Types [...] Historical ProviderMD - 07/24/2021 2:00 AM CDT Paralegal Supervisor Details Entered On: 07/24/2021 4:47 EDT Performed [...] - 07/24/2021 4:44 EDT Electronically signed by [facility] Conversion Handyperson Cerner at 05/27/2022 9:19 PM CDT documented in this encounter Plan of Treatment Not on file documented as of this encounter Visit Diagnoses Not on filedocumented in this encounter Care Teams Counter Clerk Tractor Parts Relationship Specialty Start Date End Date Linh Doty, 8 [facility] [address] [place] [address] PCP - General Family Medicine 11/04/22 Lizzie Alves PA-C 1401 [facility] [address] [place] [address] Hospitalist Cardiology 05/27/23 Kaushik Mariscal MD 1401 [facility] [address] [place] [address] Bill Collector Electrophysiology 11/18/23 documented as of this encounter
--- OUTSIDE RECORDS SUMMARY | 2024-09-28 11:04 | XMS_ITS | Encounter Summary ---
Author Organization [employer] ([place], [place], [place], [place]) Address [address] [place] [address] Care Team Providers Care Rim Roller Operator Name Role Phone Lalitha Linh Delilah DAVIS Primary Care Provider [phone] Lizzie Alves PA-C Unavailable [phone] Kaushik Mariscal MD Unavailable Encounter Details Date Type Department Care Team (Late st Contact Info) Description 07/02/2021 Transcribed Document [facility] [place] [address] [place] [address] ProviderChad MD [address] [place] [address] Social History Tobacco Use Types Packs/Day [...] on filedocumented in this encounter Care Teams Rim Roller Operator Relationship Specialty Start Date End Date Linh Doty, DO 8 [facility] [address] [place] [address] PCP - General Family Medicine 11/04/22 Lizzie Alves PA-C [address] [facility], [facility] [address] [place] [address] Hospitalist Cardiology 05/27/23 Kaushik Mariscal MD [address] [facility] [address] [place] [address] Biodiesel Plant Operations Engineer Electrophysiology 11/18/23 documented as of this encounter
--- OUTSIDE RECORDS SUMMARY | 2024-09-28 11:05 | XMS_ITS | Encounter Summary ---
Author Organization [employer] ([place], [place], [place], [place]) Address [address] [place] [address] Care Team Providers Care Human Resources Trainee Name Role Phone Lalitha Linhkarthikeyan Mazariegos DO Primary Care Provider [phone] Lizzie Alves PA-C Unavailable [phone] Kaushik Mariscal MD Unavailable Encounter Details Date Type Department Care Team (Late st Contact Info) Description 07/16/2021 Transcribed Document [facility] [place] [address] [place] [address] ProviderChad MD [address] [place] [address] Social History Tobacco Use Types Packs/Day [...] MARY HUYNH, OTR/L - 07/18/2021 13:56 EDT [place] OT Charges OT Eval Low Complexity : 1 MARY HUYNH OTR/L - 07/18/2021 13:56 EDT Electronically signed by Rekha [facility] Conversion Rack Puncher Cerner at 05/27/2022 9:06 PM CDT documented in this encounter Plan of Treatment Not on file documented as of this encounter Visit Diagnoses Not on filedocumented in this encounter Care Teams Human Resources Trainee Relationship Specialty Start Date End Date Linh Doty, DO 8 [facility] [address] [place] [address] PCP - General Family Medicine 11/04/22 Lizzie Alves PA-C [address] [place] [address], [facility] [address] [place] [address] Hospitalist Cardiology 05/27/23 Kaushik Mariscal MD 1401 [facility] [address] [place] [address] Physician Relations Manager Electrophysiology 11/18/23 documented as of this encounter
--- OUTSIDE RECORDS SUMMARY | 2024-09-28 11:05 | XMS_ITS | Encounter Summary ---
Author Organization [employer] ([place], [place], [place], [place]) Address [address] [place] [address] Care Team Providers Care Washer And Capper Machine Operator Name Role Phone Lalitha Linh Delilah DAVIS Primary Care Provider [phone] Lizzie Alves PA-C Unavailable [phone] Kaushik Mariscal MD Unavailable Encounter Details Date Type Department Care Team (Late st Contact Info) Description 07/01/2021 Transcribed Document [facility] [place] Family Medicine [address] [place] [address] ProviderChad MD [address] [place] [address] Social History Tobacco Use Types Packs/Day Years Used Date Smoking Tobacco: Never Assessed Family and Community Support Answer Geremias e Recorded Help with Day to Day Activities Not on file 02/27/2023 Feeling Lonely or Isolated Not on file 02/27 Educational Attainment Answer Date Mendez rded Speak language other than Saudi Arabian at home Not on file 02/27/2023 Want [...] Historical ProviderMD - 07/01/2021 5:16 PM CDT Liquefier Details Entered On: 07/01/2021 22:37 EDT Performed [...] - 07/01/2021 22:37 EDT Electronically signed by [facility] Conversion Clinical Courier Cerner at 05/27/2022 9:02 PM CDT documented in this encounter Plan of Treatment Not on file documented as of this encounter Visit Diagnoses Not on filedocumented in this encounter Care Teams Washer And Capper Machine Operator Relationship Specialty Start Date End Date Linh Doty, 8 [facility] [address] [place] [address] PCP - General Family Medicine 11/04/22 Lizzie Alves PA-C 1401 [facility], [facility] [address] [place] [address] Hospitalist Cardiology 05/27/23 Kaushik Mariscal MD 1401 [facility] [address] [place] [address] Title Manager Electrophysiology 11/18/23 documented as of this encounter
--- OUTSIDE RECORDS SUMMARY | 2024-09-28 11:05 | XMS_ITS | Encounter Summary ---
Author Organization [employer] ([place], [place], [place], [place]) Address [address] [place] [address] Care Team Providers Care Plumber Maintenance Name Role Phone Lalitha Linhkarthikeyan Mazariegos DO Primary Care Provider [phone] Lizzie Alves PA-C Unavailable [phone] Kaushik Mariscal MD Unavailable Encounter Details Date Type Department Care Team (Late st Contact Info) Description 07/23/2021 Transcribed Document [facility] [place] [address] [place] [address] ProviderChad MD [address] [place] [address] Social History Tobacco Use Types Packs/Day [...] Historical ProviderMD - 07/23/2021 2:00 AM CDT Clerical Adjudicator Details Entered On: 07/23/2021 2:24 EDT Performed On: 07/23/2021 2:00 EDT by Jessica Recinos Lpn Order Details Patient Needs Meds Crushed/Liquid : No Jessica Recinos Lpn - 07/23/2021 2:24 EDT Electronically signed by [facility] Conversion Front End Developer Javascript Html Css Cerner at 05/27/2022 9:03 PM CDT documented in this encounter Plan of Treatment Not on file documented as of this encounter Visit Diagnoses Not on filedocumented in this encounter Care Teams Plumber Maintenance Relationship Specialty Start Date End Date Linh Doty, 8 [facility] [address] [place] [address] PCP - General Family Medicine 11/04/22 Lizzie Alves PA-C 1401 [facility], [facility] [address] [place] [address] Hospitalist Cardiology 05/27/23 Kaushik Mariscal MD 1401 [facility] [address] [place] [address] Ferry Boat Captain Electrophysiology 11/18/23 documented as of this encounter
--- OUTSIDE RECORDS SUMMARY | 2024-09-28 11:05 | XMS_ITS | Encounter Summary ---
Author Organization [employer] ([place], [place], [place], [place]) Address [address] [place] [address] Care Team Providers Care Algebraist Name Role Phone Lalitha Linh Delilah DAVIS Primary Care Provider [phone] Lizzie Alves PA-C Unavailable [phone] Kaushik Mariscal MD Unavailable Encounter Details Date Type Department Care Team (Late st Contact Info) Description 07/16/2021 Transcribed Document [facility] [place] [address] [place] [address] ProviderChad MD [address] [place] [address] Social History Tobacco Use Types Packs/Day [...] 07/17/2021 20:01 EDT Electronically signed by [facility] Conversion Hat Designer Cerner at 05/27/2022 9:04 PM CDT documented in this encounter Plan of Treatment Not on file documented as of this encounter Visit Diagnoses Not on filedocumented in this encounter Care Teams Algebraist Relationship Specialty Start Date End Date Linh Doty, DO 8 [facility] [address] [place] [address] PCP - General Family Medicine 11/04/22 Lizzie Alves PA-C [address] [place] [address], [facility] [address] [place] [address] Hospitalist Cardiology 05/27/23 Kaushik Mariscal MD 1401 [facility] [address] [place] [address] Imaging Clerk Electrophysiology 11/18/23 documented as of this encounter
--- OUTSIDE RECORDS SUMMARY | 2024-09-28 11:05 | XMS_ITS | Encounter Summary ---
Author Organization [employer] ([place], [place], [place], [place]) Address [address] [place] [address] Care Team Providers Care Box Sealing Machine Feeder Name Role Phone Lalitha Linhkarthikeyan Mazariegos DO Primary Care Provider Lizzie Alves PA-C Unavailable [phone] Kaushik Mariscal MD Unavailable Encounter Details Date Type Department Care Team (Late st Contact Info) Description 07/02/2021 Transcribed Document [facility] [place] Family Medicine [address] [place] [address] ProviderChad MD [address] [place] [address] Social History Tobacco Use Types Packs/Day Years Used Date Smoking Tobacco: Never Assessed Family and Community Support Answer Geremias e Recorded Help with Day to Day Activities Not on file 02/27/2023 Feeling Lonely or Isolated Not on file 02/27 Educational Attainment Answer Date Mendez rded Speak language other than Ivorian at home Not on file 02/27/2023 Want [...] On: 07/02/2021 12:49 EDT by ERNIE PAYAN, RN-Coil Taper Final Discharge Planning Discharge Arrangements : Patient [...] Management : Home/Residential/Fci or Self Care -01 ERNIE PAYAN, RN-Coil Taper - 07/02/2021 12:49 EDT Final Narrative Note Final Narrative Note : see notes regarding pt decline of home 02. follow up appts scheduled with Dr Mariscal. Dr Doty, primary care. called office. out of office for lunch. left message for them to call pt with appt time next 2-3 days. discussed all with bedside SARAH Yu. ERNIE PAYAN, RN-Coil Taper - 07/02/2021 12:49 EDT documented in this encounter Plan of Treatment Not on file documented as of this encounter Visit Diagnoses Not on filedocumented in this encounter Care Teams Box Sealing Machine Feeder Relationship Specialty Start Date End Date Linh Doty DO 8 [facility] [address] [place] [address] PCP - General Family Medicine 11/04/22 Lizzie Alves PA-C [address] , [facility] [address] [place] [address] Hospitalist Cardiology 05/27/23 Kaushik Mariscal MD 1401 [facility] [place] [address] Drafter (Cad) Electronic Electrophysiology 11/18/23 documented as of this encounter
--- OUTSIDE RECORDS SUMMARY | 2024-09-28 11:05 | XMS_ITS | Encounter Summary ---
Author Organization [employer] ([place], [place], [place], [place]) Address [address] [place] [address] Care Team Providers Care Biscuit Factory Worker Name Role Phone Lalitha Linhkarthikeyan Mazariegos DO Primary Care Provider [phone] Lizzie Alves PA-C Unavailable [phone] Kaushik Mariscal MD Unavailable Encounter Details Date Type Department Care Team (Late st Contact Info) Description 07/16/2021 Transcribed Document [facility] [place] [address] [place] [address] ProviderChad MD [address] [place] [address] Social History Tobacco Use Types Packs/Day Years Used Date Smoking Tobacco: Never Assessed Family and Community Support Answer Geremias e Recorded Help with Day to Day Activities Not on file 02/27/2023 Feeling Lonely or Isolated Not on file 02/27 Educational Attainment Answer Date Mendez rded Speak language other than Jamaican at home Not on file 02/27/2023 Want [...] Pacemaker places [address] Mariscal, presentation specialist. 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 States 02 run between 88-93. Hx of COPD. Denies SOB/chest pain Information Obtained From : Patient, Spouse Primary Language : Jamaican Preferred Communication Mode : Verbal Communication Barrier : None Photographic Colorist Needed : No Anita Ko RN - [...] Scale Risk Level : 25-45 Medium Risk [place] Fall Interventions : Adequate lighting, Assistive devices [...] Source : Stated Height Entry Format : [place] Height, Feet : 5 ft(Converted to: 152 cm, 60 Inch) Height, Inches : 6 Inch(Converted to: 0 ft 6 Inch, 15.24 cm) Clinical Height : 167.64 cm Weight Source : Bed scale Weight Entry Format : [place] Clinical Dosing Weight : 61.82 kg Weight, Pounds : 136 lb Body Surface Area (BSA) : 1.7 m2 Body Mass Index : 22 kg/m2 [place] Body Weight : 59 kg Anita Ko [...] Anita Ko RN - 07/17/2021 19:15 EDT Evans Suicide Severity Rating Scale (C-SSRS) CSSRS Past [...] on filedocumented in this encounter Care Teams Biscuit Factory Worker Relationship Specialty Start Date End Date Linh Doty DO [address] [place] [address] PCP - General Family Medicine 11/04/22 Lizzie Alves PA-C [address], [facility] [address] [place] [address] Hospitalist Cardiology 05/27/23 Kaushik Mariscal MD 1401 [facility] [address] [place] [address] Chief Development Officer Electrophysiology 11/18/23 documented as of this encounter
--- OUTSIDE RECORDS SUMMARY | 2024-09-28 11:05 | XMS_ITS | Encounter Summary ---
Author Organization [employer] ([place], [place], [place], [place]) Address [address] [place] [address] Care Team Providers Care Insurance Agency Owner Name Role Phone Lalitha Linhkarthikeyan Mazariegos DO Primary Care Provider Lizzie Alves PA-C Unavailable [phone] Kaushik Mariscal MD Unavailable Encounter Details Date Type Department Care Team (Late st Contact Info) Description 07/23/2021 Transcribed Document [facility] [place] Family Medicine [address] [place] [address] ProviderChad MD [address] [place] [address] Social History Tobacco Use Types Packs/Day [...] On: 07/24/2021 9:10 EDT by Kelsea Donovan LPN-JOS-XPP-Ecyywvroqrh Therapy WOCN Admission Date : Admit Date [...] team consulted to assess coccyx. Wound care submarine advisory team watch officer at bedside patient on LUIS surface. Family at bedside. Assessment performed and recommendations made for shear and friction and pressure prevention. If any chnages to skin integrity please consult wound care dept. Kelsea Donovan LPN-UZW-[id number]-Bgjybwapiui Therapy - 07/24/2021 11:04 EDT documented in this encounter Plan of Treatment Not on file documented as of this encounter Visit Diagnoses Not on filedocumented in this encounter Care Teams Insurance Agency Owner Relationship Specialty Start Date End Date Linh Doty, 8 [facility] [address] [place] [address] PCP - General Family Medicine 11/04/22 Lizzie Alves PA-C 1401 [facility], [facility] [address] [place] [address] Hospitalist Cardiology 05/27/23 Kaushik Mariscal MD 1401 [facility] [address] [place] [address] Bird Cage Assembler Electrophysiology 11/18/23 documented as of this encounter
--- OUTSIDE RECORDS SUMMARY | 2024-09-28 11:05 | XMS_ITS | Clinical Summary ---
Author Organization [employer] ([place], [place], [place], [place]) Address [address] [place] [address] Care Team Providers Care Warble Saw Operator Name Role Phone Linh Doty DO Primary Care Provider [phone] Lizzie Alves PA-C Unavailable [phone] Kaushik Mariscal MD Unavailable Allergies No [...] 75 mg tabletIndications :Atherosclerotic heart disease of [place] coronary artery without angina pectoris TAKE ONE [...] Encounters Date Type Department Care Team Description 09/15/2024 3:00 AM EDT Clinical Support [facility] Electrophysiology [address] [place] [address] Kaushik Mariscal MD Encounter for adjustment or management of cardiac device (Primary Dx); Ischemic cardiomyopathy with implantable cardioverter-defibrill ator (ICD); Chronic combined systolic and diastolic congestive heart failure (HCC) 08/15/2024 5:00 AM EDT Clinical Support [facility] Electrophysiology [address] [place] [address] Kaushik Mariscal MD Encounter for adjustment or management of cardiac device (Primary Dx); Ischemic cardiomyopathy with implantable cardioverter-defibrill ator (ICD); Chronic combined systolic and diastolic congestive heart failure (HCC) 07/15/2024 5:00 AM EDT Clinical Support [facility] Electrophysiology [address] [place] [address] Louise Gottlieb MD Encounter for adjustment or management of cardiac device (Primary Dx); Ischemic cardiomyopathy with implantable cardioverter-defibrill ator (ICD); Chronic combined systolic and diastolic congestive heart failure (HCC) 07/11/2024 6:00 AM EDT Clinical Support [facility] Electrophysiology [address] [place] [address] Louise Gottlieb MD Encounter for adjustment [...] Tdap) 01/29/2031 Medical Devices Implanted Type Area Daycare Manager Device Identifier Shelf Expiration Date Model / Serial / Lot Icd-08/26/2021 Implanted:08/26 by Kaushik Mariscal MD (Quantity not on file) ICD [employer] 500Q / [id number] / Insurance [facility] Care Teams Warble Saw Operator Relationship Specialty Start Date End Date Linh Doty, DO [address] [facility] [address] [place] [address] PCP - General Family Medicine 11/04/22 Lizzie Alves PA-C 1401 [facility], [facility] [address] [place] [address] Hospitalist Cardiology 05/27/23 Kaushik Mariscal MD 1401 [facility] [address] [place] [address] Aircraft Engine Dismantler Electrophysiology 11/18/23
--- OUTSIDE RECORDS SUMMARY | 2024-09-28 11:05 | XMS_ITS | Encounter Summary ---
Author Organization [employer] ([place], [place], [place], [place]) Address [address] [place] [address] Care Team Providers Care Needle Punch Machine Operator Helper Name Role Phone Lalitha Linhkarthikeyan Mazariegos DO Primary Care Provider [phone] Lizzie Alves PA-C Unavailable [phone] Kaushik Mariscal MD Unavailable Encounter Details Date Type Department Care Team (Late st Contact Info) Description 07/16/2021 Transcribed Document [facility] [place] [address] [place] [address] ProviderChad MD [address] [place] [address] Social History Tobacco Use Types Packs/Day [...] 07/16/2021 12:47 PM CDT Patient: LENA MENDOZA [facility]: [id number] Age: 55 years Sex: Female : 1965 Associated Diagnoses: Pacemaker pocket hematoma Author: FENG MODI MD-EMR Basic Information Additional information: Chief Complaint from Nursing Triage Note : Chief Complaint 07/16/2021 12:06 EDT Chief Complaint Pt states she has a blood pocket surrounding her pacemaker. Was brought over by EP lab. Pacemaker places [address] Mariscal, head esthetician. 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 States 02 run between [...] 50 mcg inhalation powder: 1 Puff, Inhalation, [id number], rinse mouth and throat after use, 30 [...] Current smoker Gout High cholesterol History of [place] (myocardial infarction) Intermittent claudication Pacemaker PAD (peripheral [...] Assessment: ED C-SSRS: ED Clinical Reconciliation: ED starting gate driver: Peripheral IV Insertion: Completed .Automated Differential: Aerosol [...] % 33.7 % Lymph # 2.49 x10(3)/uL [place] % 7.7 % [place] # 0.57 K/uL Eos % 1.1 % Eos # 0.08 x10(3)/uL Baso % 1.5 % Baso # 0.11 x10(3)/uL Slide Review No IG# 0.02 x10(3)/uL IG% 0.30 % PT 11.1 Second(s) INR 1.0 Procalcitonin <0.25 ng/mL . Radiology results: Radiology Results (Last 48 hours) [id number] -- 07/16/2021 12:00 CR Chest 1 Vw [...] REYNALDO CURIEL MD-INT. Electronically signed by Rekha [facility] Conversion Mural Painter Cerner at 05/27/2022 8:59 PM CDT documented in this encounter Plan of Treatment Not on file documented as of this encounter Visit Diagnoses Not on filedocumented in this encounter Care Teams Needle Punch Machine Operator Helper Relationship Specialty Start Date End Date Linh Doty, [address] [place] [address] PCP - General Family Medicine 11/04/22 Lizzie Alves PA-C [address] [place] [address], [facility] [address] [place] [address] Hospitalist Cardiology 05/27/23 Kaushik Mariscal MD [address] [place] [address] [place] [address] Miller Supervisor Electrophysiology 11/18/23 documented as of this encounter
--- OUTSIDE RECORDS SUMMARY | 2024-09-28 11:05 | XMS_ITS | Encounter Summary ---
Author Organization [employer] ([place], [place], [place], [place]) Address [address] [place] [address] Care Team Providers Care Wood Tool Maker Name Role Phone Lalitha Linhkarthikeyan Mazariegos DO Primary Care Provider [phone] Lizzie Alves PA-C Unavailable [phone] Kaushik Mariscal MD Unavailable Encounter Details Date Type Department Care Team (Late st Contact Info) Description 07/25/2021 Transcribed Document [facility] [place] [address] [place] [address] ProviderChad MD [address] [place] [address] Social History Tobacco Use Types [...] 07/25/2021 3:47 EDT Electronically signed by Rekha [facility] Conversion Newspaper Delivery Driver Cerner at 05/27/2022 9:23 PM CDT documented in this encounter Plan of Treatment Not on file documented as of this encounter Visit Diagnoses Not on filedocumented in this encounter Care Teams Wood Tool Maker Relationship Specialty Start Date End Date Linh Doty, 8 [facility] [address] [place] [address] PCP - General Family Medicine 11/04/22 Lizzie Alves PA-C 1401 [facility], [facility] [address] [place] [address] Hospitalist Cardiology 05/27/23 Kaushik Mariscal MD 1401 [facility] [address] [place] [address] Legal Office Administrator Electrophysiology 11/18/23 documented as of this encounter
--- OUTSIDE RECORDS SUMMARY | 2024-09-28 11:05 | XMS_ITS | Encounter Summary ---
Author Organization [employer] ([place], [place], [place], [place]) Address [address] [place] [address] Care Team Providers Care Linting Machine Operator Name Role Phone Lalitha Linhkarthikeyan Mazariegos DO Primary Care Provider [phone] Lizzie Alves PA-C Unavailable [phone] Kaushik Mariscal MD Unavailable Encounter Details Date Type Department Care Team (Late st Contact Info) Description 07/02/2021 Transcribed Document [facility] [place] Family Medicine [address] [place] [address] ProviderChad MD [address] [place] [address] Social History Tobacco Use Types Packs/Day [...] 07/02/2021 15:57 EDT Electronically signed by [facility]ek[facility] Conversion [employer] Academic Coach Cerner at 05/27/2022 9:12 PM CDT documented in this encounter Plan of Treatment Not on file documented as of this encounter Visit Diagnoses Not on filedocumented in this encounter Care Teams Linting Machine Operator Relationship Specialty Start Date End Date Linh Doty, DO 8 [facility] [address] [place] [address] PCP - General Family Medicine 11/04/22 Lizzie Alves PA-C [address] [place] [address], [facility] [address] [place] [address] Hospitalist Cardiology 05/27/23 Kaushik Mariscal MD 1401 [facility] [address] [place], [place] [address] Street Supervisor Electrophysiology 11/18/23 documented as of this encounter
--- OUTSIDE RECORDS SUMMARY | 2024-09-28 11:05 | XMS_ITS | Encounter Summary ---
Author Organization [employer] ([place], [place], [place], [place]) Address [address] [place] [address] Care Team Providers Care Geophysical Computer Name Role Phone Lalitha Linhkarthikeyan Mazariegos DO Primary Care Provider [phone] Lizzie Alves PA-C Unavailable [phone] Kaushik Mariscal MD Unavailable Encounter Details Date Type Department Care Team (Late st Contact Info) Description 08/27/2021 Transcribed Document [facility] [place] [address] [place] [address] ProviderChad MD [address] [place] [address] Social History Tobacco Use Types Packs/Day Years Used Date Smoking Tobacco: Never Assessed Family and Community Support Answer Geremias e Recorded Help with Day to Day Activities Not on file 02/27/2023 Feeling Lonely or Isolated Not on file 02/27 Educational Attainment Answer Date Mendez rded Speak language other than Northern Irish at home Not on file 02/27/2023 [...] Spiritual Care Spiritual Care Referred by : Stemhole Borer And Topper initiated Reason for Visit : Initial Ministry Provided to : Patient, Family/Significant other Intervention/Comment/Summary Points : Initial Spiritual Care visit with patient and by volunteer, Tr Rico. LYNN VENEGAS - 08/27/2021 13:17 EDT Electronically signed by Rek[facility] Conversion Security Associate Cerner at 05/27/2022 9:27 PM CDT documented in this encounter Plan of Treatment Not on file documented as of this encounter Visit Diagnoses Not on filedocumented in this encounter Care Teams Geophysical Computer Relationship Specialty Start Date End Date Linh Doty, DO 8 [facility] [address] [place] [address] PCP - General Family Medicine 11/04/22 Lizzie Alves PA-C 1401 [facility], [facility] [address] [place] [address] Hospitalist Cardiology 05/27/23 Kaushik Mariscal MD 1401 [facility] [address] [place], [place] [id number] Metal Moulder Electrophysiology 11/18/23 documented as of this encounter
--- OUTSIDE RECORDS SUMMARY | 2024-09-28 11:05 | XMS_ITS | Encounter Summary ---
Author Organization [employer] ([place], [place], [place], [place]) Address [address] [place] [address] Care Team Providers Care Air Hose Coupler Name Role Phone Lalitha Linhkarthikeyan Mazariegos DO Primary Care Provider [phone] Lizzie Alves PA-C Unavailable [phone] Kaushik Mariscal MD Unavailable Encounter Details Date Type Department Care Team (Late st Contact Info) Description 07/01/2021 Transcribed Document [facility] Family Medicine [address] [place] [address] ProviderChad MD [address] [place] [address] Social History Tobacco Use Types Packs/Day [...] Source : Stated Height Entry Format : [place] Height, Feet : 5 ft(Converted to: 152 cm, 60 Inch) Height, Inches : 7 Inch(Converted to: 0 ft 7 Inch, 17.78 cm) Clinical Height : 170.18 cm Weight Source : Standing scale Weight Entry Format : [place] Clinical Dosing Weight : 61.36 kg Weight, Pounds : 135 lb Body Surface Area (BSA) : 1.71 m2 Body Mass Index : 21.2 kg/m2 [place] Body Weight : 61 kg Rere Ramos [...] Rere Ramos RN - 07/01/2021 12:58 EDT [place] Suicide Severity Rating Scale (C-SSRS) CSSRS Past [...] Obtained From : Patient Primary Language : Thai Preferred Communication Mode : Verbal Communication Barrier : None Die Designer Needed : No Rere Ramos RN - [...] Scale Risk Level : 25-45 Medium Risk [place] Fall Interventions : Adequate lighting, Assistive devices [...] on filedocumented in this encounter Care Teams Air Hose Coupler Relationship Specialty Start Date End Date Linh Doty, DO 8 [facility] [address] [place] [address] PCP - General Family Medicine 11/04/22 Lizzie Alves PA-C [address] [place] [address], [facility] [address] [place] [address] Hospitalist Cardiology 05/27/23 Kaushik Mariscal MD [address] [facility] [address] [place] [address] E Merchant Electrophysiology 11/18/23 documented as of this encounter
--- OUTSIDE RECORDS SUMMARY | 2024-09-28 11:05 | XMS_ITS | Encounter Summary ---
Author Organization [employer] ([place], [place], [place], [place]) Address [address] [place] [address] Care Team Providers Care Oracle Ebs Architect Name Role Phone Lalitha Linh Delilah DAVIS Primary Care Provider [phone] Lizzie Alves PA-C Unavailable [phone] Kaushik Mariscal MD Unavailable Encounter Details Date Type Department Care Team (Late st Contact Info) Description 07/01/2021 Transcribed Document [facility] Family Medicine [address] [place] [address] ProviderChad MD [address] [place] [address] Social History Tobacco Use Types Packs/Day [...] PM CDT Patient: LENA MENDOZA [facility]: [id number] Age: 55 Years Sex: Female : 1965 Direct Service Worker: Kaushik Mariscal MD Indication: 55-year-old femalewith [...] generator was a [employer] model [id number] SN [id number] that replaced the old generator. Complications: No immediate complications were observed. Blood loss around 10 mL. Conclusion: Successful Procedure(s) of: 1. SINGLE CHAMBER SYSTEM REPLACEMENT Plan: Discharge tomorrow. documented in this encounter Plan of Treatment Not on file documented as of this encounter Visit Diagnoses Not on filedocumented in this encounter Care Teams Oracle Ebs Architect Relationship Specialty Start Date End Date Luistobias Linh Delilah, DO 8 [facility] [address] [place] [address] PCP - General Family Medicine 11/04/22 Lizzie Alves PA-C 1401 [facility] [address] [place] [address] Hospitalist Cardiology 05/27/23 Kaushik Mariscal MD 1401 [facility] [address] [place] [address] Lingo Cleaner Electrophysiology 11/18/23 documented as of this encounter
--- OUTSIDE RECORDS SUMMARY | 2024-09-28 11:05 | XMS_ITS | Encounter Summary ---
Author Organization [employer] ([place], [place], [place], [place]) Address [address] [place] [address] Care Team Providers Care Strategic Communications Specialist Name Role Phone Linh Doty DO Primary Care Provider Lizzie Alves PA-C Unavailable [phone] Kaushik Mariscal MD Unavailable Reason for Visit * Reason Comments Medication Refill Encounter Details Date Type Department Care Team (Late st Contact Info) Description 05/25/2023 Refill [facility] Cardiology [address] [place] [address] Lenka Benavidez MD [address] [facility] [address] [place] [address] Personal history of other diseases of the circulatory system; Atherosclerotic heart disease of [place] coronary artery without angina pectoris Social History [...] the circulatory system Atherosclerotic heart disease of [place] coronary artery without angina pectoris documented in this encounter Care Teams Strategic Communications Specialist Relationship Specialty Start Date End Date Linh Doty, 8 [facility] [address] [place] [address] PCP - General Family Medicine 11/04/22 Lizzie Alves PA-C [address] [place] [address], [facility] [address] [place] [address] Hospitalist Cardiology 05/27/23 Kaushik Mariscal MD [address] [facility] [address] [place] [address] Rd Scientist Electrophysiology 11/18/23 documented as of this encounter
--- OUTSIDE RECORDS SUMMARY | 2024-09-28 11:05 | XMS_ITS | Encounter Summary ---
Author Organization [employer] ([place], [place], [place], [place]) Address [address] [place] [address] Care Team Providers Care Awning Craftsperson Name Role Phone Linh Doty DO Primary Care Provider [phone] Lizzie Alves PA-C Unavailable [phone] Kaushik Mariscal MD Unavailable Encounter Details Date Type Department Care Team (Late st Contact Info) Description 11/23/2018 Transcribed Document [facility] [place] [facility] [place] [address] ProviderChad MD [address] [place] [address] Social History Tobacco Use Types Packs/Day [...] 11/23/2018 13:33 EDT Electronically signed by Rekha [facility] Conversion Combination Machine Tool Operator Cerner at 05/27/2022 9:20 PM CDT documented in this encounter Plan of Treatment Not on file documented as of this encounter Visit Diagnoses Not on filedocumented in this encounter Care Teams Awning Craftsperson Relationship Specialty Start Date End Date Linh Doty, DO [address] [facility] [address] [place] [address] PCP - General Family Medicine 11/04/22 Lizzie Alves PA-C [address] [place] [address], [facility] [address] [place] [address] Hospitalist Cardiology 05/27/23 Kaushik Mariscal MD 1401 [facility] [address] [place] [address] Supervisor Remelt Electrophysiology 11/18/23 documented as of this encounter
--- OUTSIDE RECORDS SUMMARY | 2024-09-28 11:05 | XMS_ITS | Encounter Summary ---
Author Organization [employer] ([place], [place], [place], [place]) Address [address] [place] [address] Care Team Providers Care Bucket Turner Name Role Phone Linh Doty DO Primary Care Provider Lizzie Alves PA-C Unavailable [phone] Kaushik Mariscal MD Unavailable Encounter Details Date Type Department Care Team (Late st Contact Info) Description 11/23/2018 Transcribed Document [facility] [place] Family Medicine [facility] [place] [address] ProviderChad MD [address] [place] [address] Social History Tobacco Use Types Packs/Day [...] on filedocumented in this encounter Care Teams Bucket Turner Relationship Specialty Start Date End Date Linh Doty, 8 [facility] [address] [place] [address] PCP - General Family Medicine 11/04/22 Lizzie Alves PA-C [address] [place] [address], [facility] [address] [place] [address] Hospitalist Cardiology 05/27/23 Kaushik Mariscal MD 1401 [facility] [address] [place] [address] Paint Stock Clerk Electrophysiology 11/18/23 documented as of this encounter
--- OUTSIDE RECORDS SUMMARY | 2024-09-28 11:05 | XMS_ITS | Encounter Summary ---
Author Organization [employer] ([place], [place], [place], [place]) Address [address] [place] [address] Care Team Providers Care Manager Code Name Role Phone Lalitha Linhkarthikeyan Mazariegos DO Primary Care Provider [phone] Lizzie Alves PA-C Unavailable [phone] Kaushik Mariscal MD Unavailable Encounter Details Date Type Department Care Team (Late st Contact Info) Description 07/24/2021 Transcribed Document [facility] Family Medicine [address] [place] [address] ProviderChad MD [address] [place] [address] Social History Tobacco Use Types Packs/Day [...] was infiltrated with 1% lidocaine locally. A 4-Belizean sheath was placed in the right femoral artery and used for continuous arterial pressure monitoring. A 10-Belizean sheath was placed in the right femoral [...] from the retention sutures. Next, using an 11-Belizean manual cutting sheath, the lead was freed to the level of the SVC. The cutting sheath was then exchanged for 14-Belizean laser powered sheath, which was used to [...] RECOMMENDATIONS: Reimplantation when cleared from ID standpoint. /[id number] Richard Hoffman MD TCR/AQ / TCR / MODL /[id number] Electronically signed by Interface, [facility] Conversion Hvac Mechanical Engineer Cerner at 05/27/2022 9:00 PM CDT documented in this encounter Plan of Treatment Not on file documented as of this encounter Visit Diagnoses Not on filedocumented in this encounter Care Teams Manager Code Relationship Specialty Start Date End Date Linh Doty, DO 8 [facility] [address] [place] [address] PCP - General Family Medicine 11/04/22 Lizzie Alves PA-C [address] [place] [address], [facility] [address] [place] [address] Hospitalist Cardiology 05/27/23 Kaushik Mariscal MD 1401 [facility] [address] [place] [address] Pond Scaler Electrophysiology 11/18/23 documented as of this encounter
--- OUTSIDE RECORDS SUMMARY | 2024-09-28 11:05 | XMS_ITS | Encounter Summary ---
Author Organization [employer] ([place], [place], [place], [place]) Address [address] [place] [address] Care Team Providers Care Day Care Home Mother Name Role Phone Lalitha Linhkarthikeyan Mazariegos DO Primary Care Provider [phone] Lizzie Alves PA-C Unavailable [phone] Kaushik Mariscal MD Unavailable Encounter Details Date Type Department Care Team (Late st Contact Info) Description 07/16/2021 Transcribed Document [facility] Radiology [address] [id number] Yanick Torres MD [address] [place] [address] [place] [address] Social History Tobacco Use Types Packs/Day Years Used Date Smoking Tobacco: Never Assessed Family and Community Support Answer Geremias e Recorded Help with Day to Day Activities Not on file 02/27/2023 Feeling Lonely or Isolated Not on file 02/27 Educational Attainment Answer Date Mendez rded Speak language other than Malagasy at home Not on file 02/27/2023 Want [...] 50 mcg inhalation powder: 1 Puff, Inhalation, [id number], rinse mouth and throat after use, 30 [...] 50 mcg inhalation powder 1 Puff, Inhalation, [id number] folic acid 1 mg oral tablet 1 [...] At risk for sleep apnea / IMO [id number] / Confirmed High cholesterol / SNOMED CT 45751666 / Confirmed Canceled: At risk for sleep apnea / IMO [id number] Canceled: COPD (chronic obstructive pulmonary disease) / SNOMED CT 70358831 Canceled: HTN (hypertension) / SNOMED CT 8306415862, Active Problems (12) Arteriosclerosis At risk for [...] gallop, S1+ S2 No S3 or S4 [place].. Gastrointestinal: Soft, Non-tender, Non-distended, Normal bowel sounds. [...] on filedocumented in this encounter Care Teams Day Care Home Mother Relationship Specialty Start Date End Date Linh Doty DO 8 [facility] [address] [place] [address] PCP - General Family Medicine 11/04/22 Lizzie Alves PA-C [address] [place] [address], [facility] [address] [place] [address] Hospitalist Cardiology 05/27/23 Kaushik Mariscal MD 1401 [facility] [address] [place] [address] Unix System Administrator Electrophysiology 11/18/23 documented as of this encounter
--- OUTSIDE RECORDS SUMMARY | 2024-09-28 11:05 | XMS_ITS | Encounter Summary ---
Author Organization [employer] ([place], [place], [place], [place]) Address [address] [place] [address] Care Team Providers Care Public Works Inspector Name Role Phone aLlitha Linhkarthikeyan Mazariegos DO Primary Care Provider [phone] Lizzie Alves PA-C Unavailable [phone] Kaushik Mariscal MD Unavailable Encounter Details Date Type Department Care Team (Late st Contact Info) Description 07/24/2021 Transcribed Document [facility] Family Medicine [address] [place] [address] ProviderChad MD [address] [place] [address] Social History Tobacco Use [...] with bloody drainage. Patient was admitted to [facility] on 07/16/[facility]. Post generator [...] (Rocephin) - 2 Gram, IV Piggyback, Inj, A75CEas, infuse over 30 Minute(s), Routine DAPTOmycin + Sodium Chloride 0.9% intravenous solution 50 mL - 400 mg, IV Piggyback, Inj, [id number], infuse over 30 Minute(s), Routine Anticoagulant alteplase [...] No tenderness, No deformity. Integumentary: Warm, Dry, [place], No pallor, No rash, ICD site left [...] 09) L 3.3 (MADELEINE 08) , ACC: [id number] ORDER: Culture Blood DATE: 07/16/2021 12:39 SOURCE: Blood SITE: Reports Final 07/21/2021 16:01 No growth at 5 days. Pre 07/20/2021 16:01 No growth at 4 days. Pre 07/19/2021 16:01 No growth at 3 days. Pre 07/18/2021 16:01 No growth at 2 days. Pre 07/17/2021 16:02 No growth at 1 day. Pre 07/17/2021 06:01 Culture less than 24 Hrs old == ACC: [id number] ORDER: Culture Blood DATE: 07/16/2021 12:39 SOURCE: Blood SITE: Reports Final 07/21/2021 16:01 No growth at 5 days. Pre 07/20/2021 16:01 No growth at 4 days. Pre 07/19/2021 16:01 No growth at 3 days. Pre 07/18/2021 16:01 No growth at 2 days. Pre 07/17/2021 16:02 No growth at 1 day. Pre 07/17/2021 06:01 Culture less than 24 Hrs old == ACC: [id number] ORDER: Culture Wound and Stain DATE: 07/17/2021 [...] Weekly PICC dressing changes. Fax orders to [phone], call [phone] with final arrangements. Arrange for follow-up with me in 1 week post discharge. documented in this encounter Plan of Treatment Not on file documented as of this encounter Visit Diagnoses Not on filedocumented in this encounter Care Teams Public Works Inspector Relationship Specialty Start Date End Date Linh Doty DO [address] [address] PCP - General Family Medicine 11/04/22 Lizzie Alves PA-C 1401 [facility] [address] [place] [address] Hospitalist Cardiology 05/27/23 Kaushik Mariscal MD 1401 [facility] [address] [place] [address] Banquet Bartender Electrophysiology 11/18/23 documented as of this encounter
--- OUTSIDE RECORDS SUMMARY | 2024-09-28 11:05 | XMS_ITS | Encounter Summary ---
Author Organization [employer] ([place], [place], [place], [place]) Address [address] [place] [address] Care Team Providers Care Complex Manager Name Role Phone Linh Doty DO Primary Care Provider [phone] Lizzie Alves PA-C Unavailable [phone] Kaushik Mariscal MD Unavailable Reason for Visit * Reason Comments Medication Refill Encounter Details Date Type Department Care Team (Late st Contact Info) Description 04/27/2023 Refill [facility] Cardiology [address] [place] [address] Lenka Benavidez MD 1401 [facility] [address] [place] [address] Atherosclerotic heart disease of [place] coronary artery without angina pectoris; Personal history [...] Visit Diagnoses Diagnosis Atherosclerotic heart disease of [place] coronary artery without angina pectoris Personal history of other diseases of the circulatory system documented in this encounter Care Teams Complex Manager Relationship Specialty Start Date End Date Linh Doty, 8 [facility] [address] [place] [address] PCP - General Family Medicine 11/04/22 Lizzie Alves PA-C 1401 [facility] [address] [place] [address] Hospitalist Cardiology 05/27/23 Kaushik Mariscal MD 1401 [facility] [address] [place] [address] Supervisor Chlorine Liquefaction Electrophysiology 11/18/23 documented as of this encounter
--- OUTSIDE RECORDS SUMMARY | 2024-09-28 11:05 | XMS_ITS | Encounter Summary ---
Author Organization [employer] ([place], [place], [place], [place]) Address [address] [place] [address] Care Team Providers Care Presetter Operator Name Role Phone Lalitha Linhkarthikeyan Mazariegos DO Primary Care Provider [phone] Lizzie Alves PA-C Unavailable [phone] Dion Lin MD Unavailable Encounter Details Date Type Department Care Team (Late st Contact Info) Description 07/25/2021 Transcribed Document [facility] Family Medicine [address] [place] [address] ProviderChad MD [address] [place] [address] Social History Tobacco Use Types [...] Historical ProviderMD - 07/25/2021 2:36 PM CDT [facility] [place] [address] REJI LENA Begum :1965 Visit Time:07/16/2021 [...] Bring discharge instructions with you Where: [address] [facility] [address] [place] [address]- Business (1) Follow Up with LINH WILLIAM DO-FAM When 08/01/2021 02:00 PM EDT Comments Primary care appointment has been made Bring discharge instructions with you Where: [address] [place] [address]- Follow Up with HANANE WILSON MD-INF When 07/31/2021 02:30 PM EDT Comments Infectious disease appointment has been made Bring discharge instructions with you Where: [address] [facility] [address] [place] [address]- Follow Up with ABBE HOLLEY When 07/30/2021 10:15 AM EDT Comments Cardiology appointment has been made Bring discharge instructions with you Where: [address] [place] [address]- [phone] Business (1) Medications What How Much When Instructions Next Dose cefdinir (cefdinir 300 mg oral capsule) 1 Capsule(s) Oral Every 12 hours Duration: 7 Day(s) Pickup at [facility] [place] [place] doxycycline (doxycycline hyclate 100 mg oral capsule) 1 Capsule(s) Oral Two Times A Day Duration: 21 Day(s) Pickup at [facility] [place] [place] nicotine (nicotine 21 mg/ 24 hr transdermal film, extended release) 1 Patch(es) TransDermal Every Day Duration: 14 Day(s) Pickup at [facility] tomorrow saccharomyces boulardii lyo (Florastor 250 mg oral capsule) 1 Capsule(s) Oral Two Times A Day This medication is available lwda-tpp-myelqhs. tonight acetaminophen-hydrocodone (acetaminophen-HYDROcodone 325 mg-5 mg oral [...] (fluticasone 50 mcg/ inh nasal spray) 2 Eccles(s) Nasal Every Day as needed for Nasal [...] Tablet(s) Oral At Bedtime bedtime Pharmacy Information [facility] [place]: [address] [place], [place] [address] [phone] Take your medications faithfully. Do NOT skip [...] white, wheat or rye breads, plain breadsticks, estonian muffins, hamburger buns, plain bagels, plain cake doughnuts, tru breads, baked flours or corn tortillas, crackers including gerber, animal, saltine, oyster and matzo, snacks including unsalted pretzels, popcorn, baked tortilla chips or potato chips. Homemade breads (biscuits, muffins, cornbread, rolls, pancakes and kosovan toast) should be made with oils low [...] choose prepared products such as muffins, frozen kosovan toast and waffles, biscuits, croissants and other [...] 5 large olives is considered a serving. --[place] oil and peanut oil are higher in [...] diet, please call the registered dietitians at [facility] at or . We will be happy [...] sugar-free varieties to be more thirst quenching. --[place] your teeth. --Chill mouthwash and gargle for [...] at home: Medicines ??? Take or apply cnbc-tjn-gmhykfj and prescription medicines only as told by [...] cannot use soap and water, use hand battery checker. ? Change your bandage as told by [...] provider. Document Revised: 09/07/2018 Document Reviewed: 09/07/2018 [employer] Patient Education ?? 202 [employer] Hematoma A hematoma is a collection [...] by your doctor. General instructions ??? Take rtov-hkl-zwhzkmd and prescription medicines only as told by [...] provider. Document Revised: 07/01/2018 Document Reviewed: 07/01/2018 [employer] Patient Education ?? 2020 [employer] Steps to Quit Smoking Smoking tobacco [...] a prescription and some you can purchase eywt-ubc-dbisbfm. Medicines may have nicotine in them to [...] for support and encouragement. Call telephone quitlines (1-174-IWYU-NOW), reach out to support groups, or work [...] provider. Document Revised: 10/21/2019 Document Reviewed: 04/16/2019 [employer] Patient Education ?? 2020 [employer] Steps to Quit Smoking Smoking tobacco [...] a prescription, and some you can buy pmkh-eti-gffkyuh. Some medicines may contain a drug called [...] encourage you. ??? Call a phone quitline (3-750-LSSLNOW), reach out to support groups, or work [...] provider. Document Revised: 10/21/2019 Document Reviewed: 04/16/2019 [employer] Patient Education ?? 2020 [employer]. Antibiotic Medicine, Adult Antibiotic medicines treat infections [...] Follow these instructions at home: ??? Take fwzl-ovs-zcfcgdn and prescription medicines as told by your [...] provider. Document Revised: 11/15/2019 Document Reviewed: 11/15/2019 [employer] Patient Education ?? 202 [employer] Infection [...] Supplies needed: ??? Soap. ??? Alcohol-based hand battery checker. ??? Standard cleaning products. ??? Disinfectants, such [...] water are not available, use alcohol-based hand battery checker. ??? Avoid touching your face, mouth, nose, [...] water. Air-dry your dishes or use a folder and notcher. ??? Do not share dishes or eating [...] certain germs and not others. Read the seat nailer's instructions or read online resources to determine [...] minutes after each use, or according to seat nailer's instructions. ??? Wash reusable cleaning cloths and [...] water are not available, use alcohol-based hand battery checker. In general: ??? Stay home except to [...] for Professionals in Infection Control and Epidemiology: professionals.site.apic.org/ifrqflaq-hv-ykbr/niu-humrmejnpf-qcytefg/home/ Summary ??? It is important to know [...] provider. Document Revised: 04/02/2020 Document Reviewed: 04/22/2019 [employer] Patient Education ?? 2020 [employer] doxycycline (oral/injection) (DOX romain gallo) Acticlate, [...] teeth in children Electronically signed by Rekha [facility] Conversion Retail Merchandiser Cerner at 05/27/2022 9:26 PM CDT documented in this encounter Plan of Treatment Not on file documented as of this encounter Visit Diagnoses Not on filedocumented in this encounter Care Teams Presetter Operator Relationship Specialty Start Date End Date Linh William, DO 8 [facility] [address] [place] [address] PCP - General Family Medicine 11/04/22 Lizzie Alves PA-C [address] [place] [address], [facility] [address] [place] [address] Hospitalist Cardiology 05/27/23 Dion Lin MD 1401 [facility] [address] [place] [address] Engine Boss Electrophysiology 11/18/23 documented as of this encounter
--- OUTSIDE RECORDS SUMMARY | 2024-09-28 11:05 | XMS_ITS | Encounter Summary ---
Author Organization [employer] ([place], [place], [place], [place]) Address [address] [place] [address] Care Team Providers Care Vegetable Cutter Name Role Phone Lalitha Linhkarthikeyan Mazariegos DO Primary Care Provider [phone] Lizzie Alves PA-C Unavailable [phone] Kaushik Mariscal MD Unavailable Encounter Details Date Type Department Care Team (Late st Contact Info) Description 07/25/2021 Transcribed Document [facility] [place] [address] [place] [address] ProviderChad MD [address] [place] [address] Social History Tobacco Use Types Packs/Day Years Used Date Smoking Tobacco: Never Assessed Family and Community Support Answer Geremias e Recorded Help with Day to Day Activities Not on file 02/27/2023 Feeling Lonely or Isolated Not on file 02/27 Educational Attainment Answer Date Mendez rded Speak language other than Burkinan at home Not on file 02/27/2023 Want [...] On: 07/25/2021 11:59 EDT by Ronaldo Mccollum, CUSTOMER SOLUTIONS SPECIALIST-PHARMACY Meds to Bed Enrollment Patient Enrollment Decision: : Yes/enroll in meds to bed program Ronaldo Mccollum, CUSTOMER SOLUTIONS SPECIALIST-PHARMACY - 07/25/2021 11:59 EDT documented in this encounter Plan of Treatment Not on file documented as of this encounter Visit Diagnoses Not on filedocumented in this encounter Care Teams Vegetable Cutter Relationship Specialty Start Date End Date Linh Doty, 8 [facility] [address] [place] [address] PCP - General Family Medicine 11/04/22 Lizzie Alves PA-C [address] [place] [address], [facility] [address] [place] [address] Hospitalist Cardiology 05/27/23 Kaushik Mariscal MD [address] [facility] [address] [place] [address] Director Of Testing Electrophysiology 11/18/23 documented as of this encounter
--- OUTSIDE RECORDS SUMMARY | 2024-09-28 11:05 | XMS_ITS | Encounter Summary ---
Author Organization [employer] ([place], [place], [place], [place]) Address [address] [place] [address] Care Team Providers Care Catering Sales Manager Name Role Phone Lalitha Linhkarthikeyan Mazariegos DO Primary Care Provider [phone] Lizzie Alves PA-C Unavailable [phone] Kaushik Mariscal MD Unavailable Encounter Details Date Type Department Care Team (Late st Contact Info) Description 11/23/2018 Transcribed Document [facility] [place] Family Medicine [facility] [address] ProviderChad MD [address] [place] [address] Social History Tobacco Use Types Packs/Day [...] Source : Stated Height Entry Format : [place] Height, Feet : 0 ft(Converted to: 0 cm, 0 Inch) Height, Inches : 70 Inch(Converted to: 5 ft 10 Inch, 177.80 cm) Clinical Height : 177.8 cm Weight Source : Standing scale Weight Entry Format : [place] Clinical Dosing Weight : 77.27 kg Weight, Pounds : 170 lb Body Surface Area (BSA) : 1.95 m2 Body Mass Index : 24.4 kg/m2 (HI) [place] Body Weight : 68 kg ELAINE CHOI [...] : No Emergency Contact #1 : Alexx- [phone]- cell number Emergency Contact #1 Phone Number : boyfriend. Emergency Contact #1 Relationship : - Emergency Contact #2 : - Emergency Contact #2 Phone Number : - Emergency Contact #2 Relationship : - Primary Language : Armenian Communication Barrier : None ELAINE CHOI RN [...] Rarely moist Raymon Activity : Walks frequently Raymno Mobility : No limitation Raymon Nutrition : [...] Scale Risk Level : 0-24 Low Risk [place] Fall Interventions : Wheels locked ELAINE CHOI [...] on filedocumented in this encounter Care Teams Catering Sales Manager Relationship Specialty Start Date End Date Linh Doty, [address] [place] [address] PCP - General Family Medicine 11/04/22 Lizzie Alves PA-C [address] , [facility] [address] [place] [address] Hospitalist Cardiology 05/27/23 Kaushik Mariscal MD [address] [facility] [place] [address] Hogshead Packer Electrophysiology 11/18/23 documented as of this encounter
--- OUTSIDE RECORDS SUMMARY | 2024-09-28 11:05 | XMS_ITS | Encounter Summary ---
Author Organization [facility] ([place], [place], [place], [place]) Address [address] [place] [address] Care Team Providers Care Grip Assembler Name Role Phone Lalitha Linhkarthikeyan Mazariegos DO Primary Care Provider Lizzie Alves PA-C Unavailable [phone] Dion Mariscal MD Unavailable Encounter Details Date Type Department Care Team (Late st Contact Info) Description 07/02/2021 Transcribed Document [facility] [place] Family Medicine [address] [place] [address] ProviderChad MD [address] [place] [address] Social History Tobacco Use Types Packs/Day [...] MD-REJI No qualifying data available [facility] Cardiology Discharge Note - EP Primary Freight Delivery Driver: Pedro Bustamante NP PCP: Linh Doty Consults: [...] Normal range of motion. Integumentary: Warm, Dry, [place]. Pacemaker site stable, dressing CDI, no hematoma or bleeding at site. Neurologic: Alert, Oriented. Psychiatric: Cooperative, Appropriate mood & affect. Telemetry: SR 76 Procedures this admission: Conclusion: Successful Procedure(s) of: 1. SINGLE CHAMBER SYSTEM REPLACEMENT - [facility] Discharge Diagnoses: 1. Successful generator change [...] BEDTIME 14. Vitamin D (Ergocalciferol) 1.25 MG (74911 UT) Oral Capsule; TAKE ONE CAPSULE BY MOUTH ONCE A WEEK Allergies (1) Active Reaction NKDA Disposition: Patient sent home in stable condition with family support. Discharge Instructions: Cardiac Diet. Post Pacemaker instructions Activity as tolerated. Smoking cessation and risk factor modification addressed. Followup Appointments: PCP in 5 - 7 days. Primary Freight Delivery Driver in [address] Mariscal in 1 week wound/device check Patient has been instructed on and verbalized an understanding of the above discharge instructions. Plan has been discussed and is in agreement with Dr. Davey Katz, RN documenting for Dr. Mariscal Electronically signed by [facility] Conversion Manager Residential Cerner at 05/27/2022 9:21 PM CDT documented in this encounter Plan of Treatment Not on file documented as of this encounter Visit Diagnoses Not on filedocumented in this encounter Care Teams Grip Assembler Relationship Specialty Start Date End Date Linh Doty, 8 [facility] [address] [place] [address] PCP - General Family Medicine 11/04/22 Lizzie Alves PA-C [address] [place] [address] Hospitalist Cardiology 05/27/23 Dion Mariscal MD [address] [facility] [place] [address] Freight Delivery Driver Electrophysiology 11/18/23 documented as of this encounter
--- OUTSIDE RECORDS SUMMARY | 2024-09-28 11:05 | XMS_ITS | Encounter Summary ---
Author Organization [employer] ([place], [place], [place], [place]) Address [address] [place] [address] Care Team Providers Care Turpentine Distiller Name Role Phone Lalitha Linhkarthikeyan Mazariegos DO Primary Care Provider [phone] Lizzie Alves PA-C Unavailable [phone] Kaushik Mariscal MD Unavailable Encounter Details Date Type Department Care Team (Late st Contact Info) Description 07/16/2021 Transcribed Document [facility] [place] [address] [place] [address] ProviderChad MD [address] [place] [address] Social History Tobacco Use Types [...] Pacemaker places [address] Mariscal, configuration management analyst. 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 States 02 run between 88-93. Hx of COPD. Denies SOB/chest pain Triage Date/Time : 07/16/2021 12:06 EDT TYREE CERNA RN - 07/16/2021 12:06 EDT DCP GENERIC CODE Tracking Acuity : 2 - Emergent Tracking Group : [facility] ED TYREE CERNA RN - 07/16/2021 12:06 [...] Onset Date: Unspecified ; Created By: Contributor_system, [employer]; Reaction Status: Active ; Category: Drug ; Substance: No Known Allergies ; Type: Allergy ; Updated By: Contributor_system HIST_RebelleGRISELDA; Reviewed Date: 10/26/2017 9:51 EDT Diagnosis Control ED (As Of: 07/16/2021 12:12:20 EDT) Problems(Active) Arteriosclerosis (SNOMED CT :154970718 ) Name of Problem: Arteriosclerosis ; Recorder: ELAINE CHOI RN; Confirmation: Confirmed ; Classification: Patient Stated ; Code: 344234891 ; Contributor System: [employer] ; Last Updated: 11/23/2018 8:01 EDT ; Life Cycle Date: 11/23/2018 ; Life Cycle Status: Active ; Vocabulary: SNOMED CT At risk for sleep apnea (IMO :02288605 ) Name of Problem: At risk for sleep apnea ; Recorder: SYSTEM, SYSTEM; Confirmation: Confirmed ; Classification: Medical ; Code: 19383407 ; Last Updated: 07/01/2021 13:02 EDT ; Life Cycle Date: 07/01/2021 ; Life Cycle Status: Active ; Vocabulary: IMO Cardiomyopathy (SNOMED CT :071459535 ) Name of Problem: Cardiomyopathy ; Recorder: Rere Ramos RN; Confirmation: Confirmed ; Classification: Patient Stated ; Code: 501891899 ; Contributor System: IdentiaChart ; Last Updated: 07/01/2021 12:56 EDT ; Life Cycle Date: 07/01/2021 ; Life Cycle Status: Active ; Vocabulary: SNOMED CT Chronic CHF (SNOMED CT :679277986 ) Name of Problem: Chronic CHF ; Recorder: ELAINE CHOI RN; Confirmation: Confirmed ; Classification: Patient Stated ; Code: 554329168 ; Contributor System: PowerChart ; Last Updated: 11/23/2018 8:00 EDT ; Life Cycle Date: 11/23/2018 ; Life Cycle Status: Active ; Vocabulary: SNOMED CT Current smoker (SNOMED CT :825899363 ) Name of Problem: Current smoker ; Recorder: ELAINE CHOI RN; Confirmation: Confirmed ; Classification: Patient Stated ; Code: 294616414 ; Contributor System: PowerChart ; Last Updated: 11/23/2018 8:01 EDT ; Life Cycle Date: 11/23/2018 ; Life Cycle Status: Active ; Vocabulary: SNOMED CT Gout (SNOMED CT :116837844 ) Name of Problem: Gout ; Recorder: Rere Ramos RN; Confirmation: Confirmed ; Classification: Patient Stated ; Code: 933231873 ; Contributor System: PowerChart ; Last Updated: 07/01/2021 12:57 EDT ; Life Cycle Date: 07/01/2021 ; Life Cycle Status: Active ; Vocabulary: SNOMED CT High cholesterol (SNOMED CT :42020486 ) Name of Problem: High cholesterol ; Recorder: Brandin Conroy RN; Confirmation: Confirmed ; Classification: Medical ; Code: 61772506 ; Contributor System: PowerChart ; Last Updated: 06/07/2017 19:00 EDT ; Life Cycle Date: 06/07/2017 ; Life Cycle Status: Active ; Vocabulary: SNOMED CT History of NH (myocardial infarction) (SNOMED CT :6482138007 ) Name of Problem: History of NH (myocardial infarction) ; Recorder: Rere Ramos RN; Confirmation: Confirmed ; Classification: Patient Stated ; Code: 3441655824 ; Contributor System: PowerChart ; Last Updated: 07/01/2021 12:56 EDT ; Life Cycle Date: 07/01/2021 ; Life Cycle Status: Active ; Vocabulary: SNOMED CT Intermittent claudication (SNOMED CT :070890263 ) Name of Problem: Intermittent claudication ; Recorder: ELAINE CHOI RN; Confirmation: Confirmed ; Classification: Patient Stated ; Code: 068657315 ; Contributor System: PowerChart ; Last Updated: 11/23/2018 8:03 EDT ; Life Cycle Date: 11/23/2018 ; Life Cycle Status: Active ; Vocabulary: SNOMED CT Pacemaker (SNOMED CT :7340964371 ) Name of Problem: Pacemaker ; Recorder: Rere Ramos RN; Confirmation: Confirmed ; Classification: Patient Stated ; Code: 1705135435 ; Contributor System: IdentiaChart ; Last Updated: 07/01/2021 12:57 EDT ; Life Cycle Date: 07/01/2021 ; Life Cycle Status: Active ; Vocabulary: SNOMED CT PAD (peripheral artery disease) (SNOMED CT :5249292624 ) Name of Problem: PAD (peripheral artery disease) ; Recorder: ELAINE CHOI RN; Confirmation: Confirmed ; Classification: Patient Stated ; Code: 6992730804 ; Contributor System: IdentiaChart ; Last Updated: 11/23/2018 8:00 EDT ; Life Cycle Date: 11/23/2018 ; Life Cycle Status: Active ; Vocabulary: SNOMED CT Stented coronary artery (SNOMED CT :5854562305 ) Name of Problem: Stented coronary artery ; Recorder: Rere Ramos RN; Confirmation: Confirmed ; Classification: Patient Stated ; Code: 2571544236 ; Contributor System: IdentiaChart ; Last Updated: 07/01/2021 12:57 EDT ; Life Cycle Date: 07/01/2021 ; Life Cycle Status: Active ; Vocabulary: SNOMED CT Diagnoses(Active) Cardiac device problem Date: 07/16/2021 ; Diagnosis Type: Reason For Visit ; Confirmation: Complaint of ; Clinical Dx: Cardiac device problem ; Classification: Medical ; Clinical Service: Emergency medicine ; Code: PNED ; Probability: 0 ; Diagnosis Code: [id number] ED Height and Weight Height Source : Stated Height Entry Format : [place] Height, Feet : 5 ft(Converted to: 152 cm, 60 Inch) Height, Inches : 6 Inch(Converted to: 0 ft 6 Inch, 15.24 cm) Clinical Height : 167.64 cm Weight Source, ED : Critical estimated dosing weight Weight Entry Format : [place] Weight, Pounds : 136 lb Clinical Dosing Weight : 61.82 kg Body Surface Area (BSA) : 1.7 m2 Body Mass Index : 22 kg/m2 [place] Body Weight (IBW) : 58.88 kg TYREE CERNA RN - 07/16/2021 12:06 EDT documented in this encounter Plan of Treatment Not on file documented as of this encounter Visit Diagnoses Not on filedocumented in this encounter Care Teams Turpentine Distiller Relationship Specialty Start Date End Date Linh Doty, [address] [facility] [address] [place] [address] PCP - General Family Medicine 11/04/22 Lizzie Alves PA-C [address] [place] [address], [facility] [address] [place] [address] Hospitalist Cardiology 05/27/23 Kaushik Mariscal MD [address] [facility] [address] [place] [address] Water Pump Servicer Electrophysiology 11/18/23 documented as of this encounter
--- OUTSIDE RECORDS SUMMARY | 2024-09-28 11:05 | XMS_ITS | Encounter Summary ---
Author Organization [employer] ([place], [place], [place], [place]) Address [address] [place] [address] Care Team Providers Care Vp Cardiovascular Service Line Name Role Phone Lalitha Linh Delilah DAVIS Primary Care Provider [phone] Lizzie Alves PA-C Unavailable [phone] Kaushik Mariscal MD Unavailable Encounter Details Date Type Department Care Team (Late st Contact Info) Description 07/01/2021 Transcribed Document [facility] [place] Family Medicine [address] [place] [address] ProviderChad MD [address] [place] [address] Social History Tobacco Use Types Packs/Day [...] 07/01/2021 19:38 EDT Electronically signed by Rek[facility] Conversion Manager Licensing Cerner at 05/27/2022 9:05 PM CDT documented in this encounter Plan of Treatment Not on file documented as of this encounter Visit Diagnoses Not on filedocumented in this encounter Care Teams Vp Cardiovascular Service Line Relationship Specialty Start Date End Date Linh Doty, DO [address] [facility] [address] [place] [address] PCP - General Family Medicine 11/04/22 Lizzie Alves PA-C [address] [facility] [address] [place] [address] Hospitalist Cardiology 05/27/23 Kaushik Mariscal MD [address] [facility] [address] [place] [address] Carton Maker Electrophysiology 11/18/23 documented as of this encounter
--- OUTSIDE RECORDS SUMMARY | 2024-09-28 11:05 | XMS_ITS | Encounter Summary ---
Author Organization [employer] ([place], [place], [place], [place]) Address [address] [place] [address] Care Team Providers Care Grinder Operator External Tool Name Role Phone Lalitha Linh Delilah DAVIS Primary Care Provider [phone] Lizzie Alves PA-C Unavailable [phone] Kaushik Mariscal MD Unavailable Encounter Details Date Type Department Care Team (Late st Contact Info) Description 07/24/2021 Transcribed Document [facility] [place] Family Medicine [address] [place] [address] ProviderChad MD [address] [place] [address] Social History Tobacco Use [...] - 07/24/2021 4:47 EDT Electronically signed by [facility] Conversion Cougar Hunter Cerner at 05/27/2022 9:11 PM CDT documented in this encounter Plan of Treatment Not on file documented as of this encounter Visit Diagnoses Not on filedocumented in this encounter Care Teams Grinder Operator External Tool Relationship Specialty Start Date End Date Linh Doty, 8 [facility] [address] [place] [address] PCP - General Family Medicine 11/04/22 Lizzie Alves PA-C [address] [facility], [facility] [address] [place] [address] Hospitalist Cardiology 05/27/23 Kaushik Mariscal MD [address] [facility] [address] [place] [address] Manager Party Electrophysiology 11/18/23 documented as of this encounter
--- OUTSIDE RECORDS SUMMARY | 2024-09-28 11:05 | XMS_ITS | Encounter Summary ---
Author Organization [employer] ([place], [place], [place], [place]) Address [address] [place] [address] Care Team Providers Care Rope Maker Name Role Phone Lalitha Linhkarthikeyan Mazariegos DO Primary Care Provider [phone] Lizzie Alves PA-C Unavailable [phone] Kaushik Mariscal MD Unavailable Encounter Details Date Type Department Care Team (Late st Contact Info) Description 07/29/2021 Transcribed Document [facility] [place] Family Medicine [address] [place] [address] ProviderChad MD [address] [place] [address] Social History Tobacco Use Types Packs/Day Years Used Date Smoking Tobacco: Never Assessed Family and Community Support Answer Geremias e Recorded Help with Day to Day Activities Not on file 02/27/2023 Feeling Lonely or Isolated Not on file 02/27 Educational Attainment Answer Date Mendez rded Speak language other than Kenyan at home Not on file 02/27/2023 Want [...] On: 07/29/2021 15:50 EDT by Bonita Katz, Link Knitting Machine Operator Primary Insurance Authorization Authorization and Policy Numbers : Insurance 1 Health Plan: [employer] Policy Number: [id number] Authorization Number: Insurance Primary Name : [employer] Policy Number: [id number] Authorization Status-Primary : Admit approved Auth/Referral Contact Name-Primary : [place] Reference Number-Primary : [id number] Authorization Number-Primary : [id number] Number of Days Authorized-Primary : 5 Day(s) Authorized Service Begin Date-Primary : 07/16/2021 EDT Authorized Service End Date-Primary : 07/21/2021 EDT Authorization Comments-Primary : Discharge summary as well as continued stay clinical 07/23 - discharge faxed. Historical Authorization Comments-Primary : Comment 1: 07/20-07/22 CLINICALS FAXED VIA [employer] (Yessi Alaniz, RN 07/22/2021 16:49) Comment 2: [...] Jones, Rn-Utilization Review 07/17/2021 15:17) Bonita Katz, Link Knitting Machine Operator - 07/29/2021 15:50 EDT Electronically signed by Alberto Da Silva Conversion Local Intermodal Truck Driver Kalia at 05/27/2022 9:01 PM CDT documented in this encounter Plan of Treatment Not on file documented as of this encounter Visit Diagnoses Not on filedocumented in this encounter Care Teams Rope Maker Relationship Specialty Start Date End Date Linh Doty, DO [address] [place] [address] PCP - General Family Medicine 11/04/22 Lizzie Alves PA-C [address] [place] [address], [facility] [address] [place] [address] Hospitalist Cardiology 05/27/23 Kaushik Mariscal MD 14[address] [facility] [address] [place] [address] County Home Demonstrator Electrophysiology 11/18/23 documented as of this encounter
--- OUTSIDE RECORDS SUMMARY | 2024-09-28 11:05 | XMS_ITS | Encounter Summary ---
Author Organization [employer] ([place], [place], [place], [place]) Address [address] [place] [address] Care Team Providers Care Vehicle Trimmer Name Role Phone Lalitha Linhkarthikeyan Mazariegos DO Primary Care Provider [phone] Lizzie Alves PA-C Unavailable [phone] Kaushik Mariscal MD Unavailable Encounter Details Date Type Department Care Team (Late st Contact Info) Description 07/23/2021 Transcribed Document [facility] [place] Family Medicine [address] [place] [address] ProviderChad MD [address] [place] [address] Social History Tobacco Use Types Packs/Day [...] 07/23/2021 21:20 EDT Electronically signed by Rek[facility] Conversion Wet End Operator Cerner at 05/27/2022 9:10 PM CDT documented in this encounter Plan of Treatment Not on file documented as of this encounter Visit Diagnoses Not on filedocumented in this encounter Care Teams Vehicle Trimmer Relationship Specialty Start Date End Date Linh Doty, 8 [facility] [address] [place] [address] PCP - General Family Medicine 11/04/22 Lizzie Alves PA-C [address] [place] [address], [facility] [address] [place] [address] Hospitalist Cardiology 05/27/23 Kaushik Mariscal MD [address] [facility] [address] [place] [address] Admissions Director Electrophysiology 11/18/23 documented as of this encounter
--- OUTSIDE RECORDS SUMMARY | 2024-09-28 11:05 | XMS_ITS | Encounter Summary ---
Author Organization [employer] ([place], [place], [place], [place]) Address [address] [place] [address] Care Team Providers Care Morning News Anchor Name Role Phone Lalitha Linhkarthikeyan Mazariegos DO Primary Care Provider [phone] Lizzie Alves PA-C Unavailable [phone] Dion Mariscal MD Unavailable Encounter Details Date Type Department Care Team (Late st Contact Info) Description 07/23/2021 Transcribed Document [facility] [place] [address] [place] [address] ProviderChad MD [address] [place] [address] Social History Tobacco Use Types Packs/Day [...] 3 mL, Nebulized Inhalation , Q8H ergocalciferol, 86296 Units= 1 Cap, Oral, Weekly Florastor, 250 [...] MD 07/22/2021 13:42 EDT Electronically signed by [facility] Conversion Asset Manager Cerner at 05/27/2022 9:24 PM CDT documented in this encounter Plan of Treatment Not on file documented as of this encounter Visit Diagnoses Not on filedocumented in this encounter Care Teams Morning News Anchor Relationship Specialty Start Date End Date Lalitha Linh L, DO 8 [facility] [address] [place] [address] PCP - General Family Medicine 11/04/22 Lizzie Alves PA-C [address] [place] [address], [facility] [address] [place] [address] Hospitalist Cardiology 05/27/23 Dion Mariscal MD [address] [facility] [address] [place] [address] Client Administrator Electrophysiology 11/18/23 documented as of this encounter
--- OUTSIDE RECORDS SUMMARY | 2024-09-28 11:05 | XMS_ITS | Encounter Summary ---
Author Organization [employer] ([place], [place], [place], [place]) Address [address] [place] [address] Care Team Providers Care Health And Safety Advisor Name Role Phone Linh Doty DO Primary Care Provider [phone] Lizzie Alves PA-C Unavailable [phone] Kaushik Mariscal MD Unavailable Reason for Referral * Echocardiography (Routine) - Closed Specialty Diagnoses / Procedures Referred By Contac t Referred To Contact Diagnoses Nonspecific abnormal electrocardiogram (ECG) (EKG) Disease of cardiovascular system Essential hypertension, malignant Procedures ECHO COMPLETE (DOPPLER / COLOR) W OR WO CONTRAST Lenka Benavidez MD [address] [place] [address] Phone: tel: fax: Referral ID Status Reason Start Date Expiration Date Visits Re quested Visits Authorized [id number] Closed 11/05/2021 01/30/2022 1 1 Encounter Details Date Type Department Care Team (Late st Contact Info) Description 11/01/[address] [facility] Central Scheduling [address] [place] [address] Lenka Benavidez MD [address] [place], [place] [id number] Nonspecific abnormal electrocardiogram (ECG) (EKG) (Primary Dx); [...] malignant documented in this encounter Care Teams Health And Safety Advisor Relationship Specialty Start Date End Date Linh Doty, DO [address] [facility] [address] [place] [address] PCP - General Family Medicine 11/04/22 Lizzie Alves PA-C 1401 [facility], [facility] [address] [place] [address] Hospitalist Cardiology 05/27/23 Kaushik Mariscal MD 1401 [facility] [address] [place], [place] [id number] Flexible Babysitter Electrophysiology 11/18/23 documented as of this encounter
--- OUTSIDE RECORDS SUMMARY | 2024-09-28 11:05 | XMS_ITS | Encounter Summary ---
Author Organization [employer] ([place], [place], [place], [place]) Address [address] [place] [address] Care Team Providers Care Returned Item Clerk Name Role Phone Lalitha Linh Delilah DAVIS Primary Care Provider Lizzie Alves PA-C Unavailable [phone] Kaushik Mariscal MD Unavailable Encounter Details Date Type Department Care Team (Late st Contact Info) Description 07/23/[address] [facility] Family Medicine [address] [place] [address] ProviderChad MD [address] [place] [address] Social History Tobacco Use Types Packs/Day [...] with bloody drainage. Patient was admitted to [facility] on 07/16/2021. Post generator change, [...] (Rocephin) - 2 Gram, IV Piggyback, Inj, T90SWsr, infuse over 30 Minute(s), Routine DAPTOmycin + Sodium Chloride 0.9% intravenous solution 50 mL - 400 mg, IV Piggyback, Inj, M18FOef, infuse over 30 Minute(s), Routine Anticoagulant alteplase [...] No tenderness, No deformity. Integumentary: Warm, Dry, [place], No pallor, No rash, ICD site left [...] Weekly PICC dressing changes. Fax orders to [phone], call [phone] with final arrangements. Hold rosuvastatin while on daptomycin to decrease risk of rhabdomyolysis. Arrange for follow-up with me in 1 week post discharge. documented in this encounter Plan of Treatment Not on file documented as of this encounter Visit Diagnoses Not on filedocumented in this encounter Care Teams Returned Item Clerk Relationship Specialty Start Date End Date Linh Doty DO [address] [facility] [address] [place] [address] PCP - General Family Medicine 11/04/22 Lizzie Alves PA-C 1401 [facility], [facility] [address] [place] [address] Hospitalist Cardiology 05/27/23 Kaushik Mariscal MD 1401 [facility] [address] [place] [address] Carpenter Repairer Electrophysiology 11/18/23 documented as of this encounter
--- OUTSIDE RECORDS SUMMARY | 2024-09-28 11:05 | XMS_ITS | Encounter Summary ---
Author Organization [employer] ([place], [place], [place], [place]) Address [address] [place] [address] Care Team Providers Care Blanket Winder Helper Name Role Phone Lalitha Linhkarthikeyan Mazariegos DO Primary Care Provider [phone] Lizzie Alves PA-C Unavailable [phone] Kaushik Mariscal MD Unavailable Encounter Details Date Type Department Care Team (Late st Contact Info) Description 07/02/2021 Transcribed Document [facility] Family Medicine [address] [place] [address] ProviderChad MD [address] [place] [address] Social History Tobacco Use Types Packs/Day [...] 07/02/2021 12:37 EDT Electronically signed by Rekha [facility] Conversion Hydroelectric Machinery Mechanic Cerner at 05/27/2022 9:27 PM CDT documented in this encounter Plan of Treatment Not on file documented as of this encounter Visit Diagnoses Not on filedocumented in this encounter Care Teams Blanket Winder Helper Relationship Specialty Start Date End Date Linh Doty, 8 [facility] [address] [place] [address] PCP - General Family Medicine 11/04/22 Lizzie Alves PA-C [address] [place] [address], [facility] [address] [place] [address] Hospitalist Cardiology 05/27/23 Kaushik Mariscal MD [address] [facility] [address] [place] [address] Fisher Trawl Line Electrophysiology 11/18/23 documented as of this encounter
--- OUTSIDE RECORDS SUMMARY | 2024-09-28 11:05 | XMS_ITS | Encounter Summary ---
Author Organization [employer] ([place], [place], [place], [place]) Address [address] [place] [address] Care Team Providers Care Body Shop Estimator Name Role Phone Lalitha Linh Delilah DAVIS Primary Care Provider Lizzie Alves PA-C Unavailable [phone] Kaushik Mariscal MD Unavailable Encounter Details Date Type Department Care Team (Late st Contact Info) Description 07/23/2021 Transcribed Document [facility] Family Medicine [address] [place] [address] ProviderChad MD [address] [place] [address] Social History Tobacco Use Types Packs/Day [...] On: 07/23/2021 13:56 EDT by Mayra Vann Rn Labor And Delivery Rn Care Management Progress Note Discharge Arrangements [...] Attend Multidisciplinary Rounds? : Yes Mayra Vann Rn Labor And Delivery Rn - 07/23/2021 13:56 EDT Narrative Progress Note Narrative Progress Note : hd 7 elos 5 low rar Plan for AICD removal 07/24 dcp- home with iv abx and hh after PPm removal Historical Progress Note : hd 6 elos 5 low rar [facility] planned for dc today however patient now to have AICD removed on 07/24 dcp- home ?iv abx after aicd removal Mayra Vann Rn Labor And Delivery Rn - 07/22/21 11:22:31 hd 3 elos 5 low rar [facility] abx administration saturday 07/22. Per EP, plan to dc patient saturday 07/22. Lisa for HH. Mayra Vann Rn Labor And Delivery Rn - 07/19/21 13:36:36 hd 2 low rar patient has orders from ID r/t iv abx and picc care but patient has no orders for PICC placement at this time, CM has reached out to ID. home abx orders sent to [facility]. patient will also need hh dcp- home with hh and iv abx Mayra Vann Rn Labor And Delivery Rn - 07/18/21 16:10:37 Mayra Vann, Rn Labor And Delivery Rn - 07/23/2021 13:56 EDT Electronically signed by Rekha [facility] Conversion Vacuum Plastic Forming Machine Operator Cerner at 05/27/2022 9:05 PM CDT documented in this encounter Plan of Treatment Not on file documented as of this encounter Visit Diagnoses Not on filedocumented in this encounter Care Teams Body Shop Estimator Relationship Specialty Start Date End Date Linh Doty, 8 [facility] [address] [place] [address] PCP - General Family Medicine 11/04/22 Lizzie Alves PA-C 1401 [facility], [facility] [address] [place] [address] Hospitalist Cardiology 05/27/23 Kaushik Mariscal MD 1401 [facility] [address] [place] [address] Salvage Determiner Electrophysiology 11/18/23 documented as of this encounter
--- OUTSIDE RECORDS SUMMARY | 2024-09-28 11:05 | XMS_ITS | Encounter Summary ---
Author Organization [employer] ([place], [place], [place], [place]) Address [address] [place] [address] Care Team Providers Care Fire Alarm Installer Name Role Phone Lalitha Linhkarthikeyan Mazariegos DO Primary Care Provider [phone] Lizzie Alves PA-C Unavailable [phone] Kaushik Mariscal MD Unavailable Encounter Details Date Type Department Care Team (Late st Contact Info) Description 07/16/2021 Transcribed Document [facility] Family Medicine [address] [place] [address] ProviderChad MD [address] [place] [address] Social History Tobacco Use Types Packs/Day [...] on filedocumented in this encounter Care Teams Fire Alarm Installer Relationship Specialty Start Date End Date Linh Doty, DO 8 [facility] [address] [place] [address] PCP - General Family Medicine 11/04/22 Lizzie Alves PA-C [address] [place] [address], [facility] [address] [place] [address] Hospitalist Cardiology 05/27/23 Kaushik Mariscal MD 1401 [facility] [address] [place] [address] [place] Electrophysiology 11/18/23 documented as of this encounter
--- OUTSIDE RECORDS SUMMARY | 2024-09-28 11:05 | XMS_ITS | Encounter Summary ---
Author Organization [employer] ([place], [place], [place], [place]) Address [address] [place] [address] Care Team Providers Care Life Enrichment Director Name Role Phone Lalitha Linhkarthikeyan Mazariegos DO Primary Care Provider [phone] Lizzie Alves PA-C Unavailable [phone] Dion Lin MD Unavailable Encounter Details Date Type Department Care Team (Late st Contact Info) Description 07/25/2021 Transcribed Document [facility] Family Medicine [address] [place] [address] ProviderChad MD [address] [place] [address] Social History Tobacco Use Types [...] Date 07/25/21 Primary Care Provider LINH WILLIAM, [facility] Discharge Diagnosis AICD pocket hematoma [...] episode of bleeding. She was taken to laborer [place]bark and the ICD was removed. She tolerated [...] BID fluticasone 50 mcg/inh nasal spray 2 [place], PRN, Nasal, Daily folic acid 1 mg [...] Oral, Daily Rocephin 2 Gram, IV Piggyback, M95MRbl topiramate 25 mg oral tablet 25 mg [...] CR Chest 1 Vw Port; Jasbir Simon, Lithographing Machine Operator 07/16/2021 13:03 EDT [2] Operative Report; ABBE HOLLEY MD-CAR 07/24/2021 14:30 EDT [3] E[facility] RE[facility]; CONTRIBUTOR_SYSTEM, [employer]_eOriginal 07/17/2021 08:04 EDT Electronically signed by [facility] Conversion Pencil Maker Cerner at 05/27/2022 9:02 PM CDT documented in this encounter Plan of Treatment Not on file documented as of this encounter Visit Diagnoses Not on filedocumented in this encounter Care Teams Life Enrichment Director Relationship Specialty Start Date End Date Linh William, DO [address] [place] [address] PCP - General Family Medicine 11/04/22 Lizzie Alves PA-C [address] [place] [address] Hospitalist Cardiology 05/27/23 Dion Lin MD 1401 [facility] [place] [address] Government Instructor Electrophysiology 11/18/23 documented as of this encounter
--- OUTSIDE RECORDS SUMMARY | 2024-09-28 11:05 | XMS_ITS | Encounter Summary ---
Author Organization [employer] ([place], [place], [place], [place]) Address [address] [place] [address] Care Team Providers Care Learning And Development Specialist Name Role Phone Lalitha Linhkarthikeyan Mazariegos DO Primary Care Provider [phone] Lizzie Alves PA-C Unavailable [phone] Kaushik Mariscal MD Unavailable Encounter Details Date Type Department Care Team (Late st Contact Info) Description 07/23/2021 Transcribed Document [facility] [place] [address] [place] [address] ProviderChad MD [address] [place] [address] Social History Tobacco Use Types Packs/Day [...] on filedocumented in this encounter Care Teams Learning And Development Specialist Relationship Specialty Start Date End Date Linh Doty, 8 [facility] [place] [facility] [address] [place] [address] PCP - General Family Medicine 11/04/22 Lizzie Alves PA-C 1401 [facility], [facility] [address] [place] [address] Hospitalist Cardiology 05/27/23 Kaushik Mariscal MD 1401 [facility] [address] [place] [address] Chip Frier Electrophysiology 11/18/23 documented as of this encounter
--- OUTSIDE RECORDS SUMMARY | 2024-09-28 11:05 | XMS_ITS | Encounter Summary ---
Author Organization [employer] ([place], [place], [place], [place]) Address [address] [place] [address] Care Team Providers Care Thread Cutter Name Role Phone Linh William DO Primary Care Provider [phone] Lizzie Alves PA-C Unavailable [phone] Kaushik Mariscal MD Unavailable Encounter Details Date Type Department Care Team (Late st Contact Info) Description 11/23/2018 Transcribed Document [facility] Family Medicine [facility] [place] [address] ProviderChad MD [address] [place] [address] Social History Tobacco Use Types Packs/Day [...] Merchant MD - 11/23/2018 1:18 PM CDT [facility] [place] [address] GAGAN MENDOZA :1965 Visit Time:11/23/2018 Your Visit Summary Your Care Team Admitting Physician - PUNEET BROOKS MD-CAR Attending Physician - PUNEET BROOKS MD-CAR Primary Care Physician - LINH WILLIAM MD-[facility] Referring Physician - PUNEET BROOKS MD-CAR Your Diagnosis Atherosclerosis of [place] arteries of extremities with intermittent claudication, right leg, Atherosclerosis of [place] arteries of extremities with intermittent claudication, right leg Discharge Vitals Temperature 36.2 ??C Heart Rate (Monitored) 82 Respiratory Rate 31 Blood Pressure 118/66 What to do next Instructions From Your Care Team 1. No driving for 24 hrs post procedure. 2. If site bleeds- call 911. hold pressure at the site. 3. Stroke- signs and symptoms - call 911. 4. Start plavix tomorrow. fire support specialist chantix- at pharmacy. Follow-Up Appointments Follow Up with [facility] When Within 2 to 4 weeks Medications What How Much When Instructions Next Dose clopidogrel (Plavix 75 mg oral tablet) 1 Tablet(s) Oral Every Day Refills: 6 Pickup at [place], [place] varenicline (Chantix 1 mg oral tablet) 1 Tablet(s) Oral Two Times A Day after meals Pickup at [facility] [place], [place] varenicline (Chantix Starter Pack 0.5 mg-1 mg oral tablet) 1 Tablet(s) Oral Two Times A Day as directed on package labeling Pickup at [place], [place] acetaminophen (Tylenol) Oral As needed for [...] Oral Two Times A Day Pharmacy Information [facility] - [place]: [address] [facility] [address] [place] [phone] Take your medications faithfully. Do NOT skip [...] Document Reviewed: 02/28/2011 ExitCare?? Patient Information ??2014 [employer]. Cerebral Angiogram, Care After This sheet gives [...] and water are not available, use hand team foreman. ? Change your dressing as told by [...] contrast dye from your body. ??? Take tagt-xui-imxpxwd and prescription medicines only as told by [...] you are awake and alert. ??? Take bapa-pjf-wbjbosi and prescription medicines only as told by [...] 05/17/2016 Elsevier Interactive Patient Education ?? 2019 [employer] Emergency Awareness and Preventative Care STROKE [...] Assistance with quitting is available by contacting 3-931-TJIMNOW. This is a free resource providing counseling, support, and referral. Or you may contact your personal physician. [place] Suicide Prevention Lifeline: The National Suicide Prevention [...] was given the opportunity to ask questions. Patient/Materials Handler Name: Patient/Materials Handler Signature: Relationship to Patient: Clinician/Hospital Materials Handler Signature: Date: documented in this encounter Plan of Treatment Not on file documented as of this encounter Visit Diagnoses Not on filedocumented in this encounter Care Teams Thread Cutter Relationship Specialty Start Date End Date Linh William, DO 8 [facility] [address] [place] [address] PCP - General Family Medicine 11/04/22 Lizzie Alves PA-C [address] [place] [address], [facility] [address] [place] [address] Hospitalist Cardiology 05/27/23 [place] [address] [place] [address] [address] [place] [address] Paradi Tender Electrophysiology 11/18/23 documented as of this encounter
--- OUTSIDE RECORDS SUMMARY | 2024-09-28 11:05 | XMS_ITS | Encounter Summary ---
Author Organization [employer] ([place], [place], [place], [place]) Address [address] [place] [address] Care Team Providers Care Elevator Constructor Supervisor Name Role Phone Lalitha Linhkarthikeyan Mazariegos DO Primary Care Provider [phone] Lizzie Alves PA-C Unavailable [phone] Kaushik Mariscal MD Unavailable Encounter Details Date Type Department Care Team (Late st Contact Info) Description 07/16/2021 Transcribed Document [facility] [place] [address] [place] [address] ProviderChad MD [address] [place] [address] Social History Tobacco Use Types Packs/Day [...] 07/23/2021 18:55 EDT Electronically signed by Rekha [facility] Conversion Fine Arts Instructor Cerner at 05/30/2022 9:20 AM CDT documented in this encounter Plan of Treatment Not on file documented as of this encounter Visit Diagnoses Not on filedocumented in this encounter Care Teams Elevator Constructor Supervisor Relationship Specialty Start Date End Date Linh Doty, DO 8 [facility] [address] [place] [address] PCP - General Family Medicine 11/04/22 Lizzie Alves PA-C [address] [place] [address], [facility] [address] [place] [address] Hospitalist Cardiology 05/27/23 Kaushik Mariscal MD 1401 [facility] [address] [place] [address] School Cook Electrophysiology 11/18/23 documented as of this encounter
--- OUTSIDE RECORDS SUMMARY | 2024-09-28 11:05 | XMS_ITS | Encounter Summary ---
Author Organization [employer] ([place], [place], [place], [place]) Address [address] [place] [address] Care Team Providers Care Stunner Name Role Phone Linh Doty DO Primary Care Provider [phone] Lizzie Alves PA-C Unavailable [phone] Kaushik Mariscal MD Unavailable Encounter Details Date Type Department Care Team (Late st Contact Info) Description 11/23/2018 Transcribed Document [facility] [place] [facility] [place] [address] ProviderChad MD [address] [place] [address] Social History Tobacco Use Types Packs/Day [...] Document Reviewed: 02/28/2011 ExitCare? Patient Information ?2013 [employer]. Cerebral Angiogram, Care After This sheet gives [...] and water are not available, use hand car blocker. ? Change your dressing as told by [...] contrast dye from your body. ??? Take pplh-rap-dchvehy and prescription medicines only as told by [...] 06/12/2014 Document Revised: 03/02/2017 Document Reviewed: 03/02/2017 [employer] Interactive Patient Education ? 2019 Elsevier Inc. [...] you are awake and alert. ??? Take hvyg-ama-silvntg and prescription medicines only as told by [...] 11/16/2013 Document Revised: 06/30/2016 Document Reviewed: 05/17/2016 [employer] Interactive Patient Education ? 2019 [employer] documented in this encounter Plan of Treatment Not on file documented as of this encounter Visit Diagnoses Not on filedocumented in this encounter Care Teams Stunner Relationship Specialty Start Date End Date Linh Dtoy, DO 8 [facility] [address] [place] [address] PCP - General Family Medicine 11/04/22 Lizzie Avles PA-C 1401 [facility], [facility] [address] [place] [address] Hospitalist Cardiology 05/27/23 Kaushik Mariscal MD 1401 [facility] [address] [place] [address] Field Crop Ii Farmworker Electrophysiology 11/18/23 documented as of this encounter
--- OUTSIDE RECORDS SUMMARY | 2024-09-28 11:05 | XMS_ITS | Encounter Summary ---
Author Organization [employer] ([place], [place], [place], [place]) Address [address] [place] [address] Care Team Providers Care Tours Hostess Name Role Phone Lalitha Linhkarthikeyan Mazariegos DO Primary Care Provider [phone] Lizzie Alves PA-C Unavailable [phone] Kaushik Mariscal MD Unavailable Encounter Details Date Type Department Care Team (Late st Contact Info) Description 07/25/2021 Transcribed Document [facility] Family Medicine [address] [place] [address] ProviderChad MD [address] [place] [address] Social History Tobacco Use Types [...] On: 07/25/2021 14:00 EDT by Mayra Vann, Architectural Manager Rn Final Discharge Planning Discharge Arrangements : [...] Services (Related/SOC within 3 days)-06 Mayra Vann Architectural Manager Rn - 07/25/2021 14:00 EDT Final Narrative Note Final Narrative Note : patient with orders to dc home. sebastien for hh. [facility] for home o2. SO to transport patient home with no mobility concerns. im and choice signed and on chart. Mayra Vann Architectural Manager Rn - 07/25/2021 14:00 EDT documented in this encounter Plan of Treatment Not on file documented as of this encounter Visit Diagnoses Not on filedocumented in this encounter Care Teams Tours Hostess Relationship Specialty Start Date End Date Linh Doty, DO [address] [place] [address] PCP - General Family Medicine 11/04/22 Lizzie Alves PA-C [address] [facility] [address] [place] [address] Hospitalist Cardiology 05/27/23 Kaushik Mariscal MD 1401 [facility] [place] [address] Clerk Supervisor Electrophysiology 11/18/23 documented as of this encounter
--- OUTSIDE RECORDS SUMMARY | 2024-09-28 11:05 | XMS_ITS | Encounter Summary ---
Author Organization [employer] ([place], [place], [place], [place]) Address [address] [place] [address] Care Team Providers Care Assembler Deck And Hull Name Role Phone Lalitha Linhkarthikeyan Mazariegos DO Primary Care Provider [phone] Lizzie Alves PA-C Unavailable [phone] Kaushik Mariscal MD Unavailable Encounter Details Date Type Department Care Team (Late st Contact Info) Description 07/25/2021 Transcribed Document [facility] [place] Family Medicine [address] [place] [address] ProviderChad MD [address] [place] [address] Social History Tobacco Use Types [...] On: 07/25/2021 13:48 EDT by Jeannie Rodriguez MAINTENANCE AND REPAIR WORKER Patient Resource Center Provider Status : EST Other Established Provider Name : Linh Doty Patient Phone Number : [phone] Patient Insurance Type : Medicare Source of [...] at ED : Other Primary Language : Beninese Patient Resource [facility] Comment : Patient needed primary care, cardiology and infectious disease appts. Primary care and cardiology appts have been made. Infectious disease appt has already been made. Follow Up Needed : No Jeannie Rodriguez MAINTENANCE AND REPAIR WORKER - 07/25/2021 13:48 EDT documented in this encounter Plan of Treatment Not on file documented as of this encounter Visit Diagnoses Not on filedocumented in this encounter Care Teams Assembler Deck And [place] Relationship Specialty Start Date End Date Linh Doty, DO [address] [place] [address] PCP - General Family Medicine 11/04/22 Lizzie Alves PA-C [address] , [facility] [address] [place] [address] Hospitalist Cardiology 05/27/23 Kaushik Mariscal MD [address] [place] [address] Plasterer Spot Electrophysiology 11/18/23 documented as of this encounter
--- OUTSIDE RECORDS SUMMARY | 2024-09-28 11:05 | XMS_ITS | Encounter Summary ---
Author Organization [employer] ([place], [place], [place], [place]) Address [address] [place] [address] Care Team Providers Care Retail Account Representative Name Role Phone Lalitha Linhkarthikeyan Mazariegos DO Primary Care Provider [phone] Lizzie Alves PA-C Unavailable [phone] Kaushik Mariscal MD Unavailable Encounter Details Date Type Department Care Team (Late st Contact Info) Description 07/25/2021 Transcribed Document [facility] [place] [address] [place] [address] ProviderChad MD [address] [place] [address] Social History Tobacco Use Types [...] Historical ProviderMD - 07/25/2021 2:00 AM CDT Political Reporter Details Entered On: 07/25/2021 0:58 EDT Performed [...] 07/25/2021 0:58 EDT Electronically signed by Rekha [facility] Conversion Prn Physical Therapist Cerner at 05/27/2022 9:09 PM CDT documented in this encounter Plan of Treatment Not on file documented as of this encounter Visit Diagnoses Not on filedocumented in this encounter Care Teams Retail Account Representative Relationship Specialty Start Date End Date Linh Doty, 8 [facility] [address] [place] [address] PCP - General Family Medicine 11/04/22 Lizzie Alves PA-C [address] [facility], [facility] [address] [place] [address] Hospitalist Cardiology 05/27/23 Kaushik Mariscal MD [address] [facility] [address] [place] [address] Medical Reimbursement Specialist Electrophysiology 11/18/23 documented as of this encounter
--- OUTSIDE RECORDS SUMMARY | 2024-09-28 11:06 | XMS_ITS | Encounter Summary ---
Author Organization [employer] ([place], [place], [place], [place]) Address [address] [place] [address] Care Team Providers Care Operations Label Clerk Name Role Phone Lalitha Linhkarthikeyan Mazariegos DO Primary Care Provider [phone] Lizzie Alves PA-C Unavailable [phone] Kaushik Mariscal MD Unavailable Encounter Details Date Type Department Care Team (Late st Contact Info) Description 07/02/2021 Transcribed Document [facility] [place] Medicine [address] [place] [address] ProviderChad MD [address] [place] [address] Social History Tobacco Use Types Packs/Day [...] 07/02/2021 14:08 EDT Electronically signed by Rekha [facility] Conversion Clothing Pattern Preparer Cerner at 05/27/2022 9:23 PM CDT documented in this encounter Plan of Treatment Not on file documented as of this encounter Visit Diagnoses Not on filedocumented in this encounter Care Teams Operations Label Clerk Relationship Specialty Start Date End Date Linh Doty, DO 8 [facility] [address] [place] [address] PCP - General Family Medicine 11/04/22 Lizzie Alves PA-C 1401 [facility], [facility] [address] [place] [address] Hospitalist Cardiology 05/27/23 Kaushik Mariscal MD 1401 [facility] [address] [place] [address] Optomechanical Technician Electrophysiology 11/18/23 documented as of this encounter
--- OUTSIDE RECORDS SUMMARY | 2024-09-28 11:06 | XMS_ITS | Encounter Summary ---
Author Organization [employer] ([place], [place], [place], [place]) Address [address] [place] [address] Care Team Providers Care Absence Management Consultant Name Role Phone Lalitha Linhkarthikeyan Mazariegos DO Primary Care Provider [phone] Lizzie Alves PA-C Unavailable [phone] Kaushik Mariscal MD Unavailable Encounter Details Date Type Department Care Team (Late st Contact Info) Description 07/25/2021 Transcribed Document [facility] [place] [address] [place] [address] ProviderChad MD [address] [place] [address] Social History Tobacco Use Types [...] On: 07/25/2021 17:30 EDT by Caryl Estrada RN-[facility] Discharge Documentation Discharge Date/Time : 07/25/2021 17:30 [...] activity and follow up appointment Caryl Estrada RN-[facility] - 07/25/2021 16:08 EDT Electronically signed by Rekha [facility] Conversion Qualitative Field Coordinator Cerner at 05/27/2022 9:01 PM CDT documented in this encounter Plan of Treatment Not on file documented as of this encounter Visit Diagnoses Not on filedocumented in this encounter Care Teams Absence Management Consultant Relationship Specialty Start Date End Date Linh Doty, DO 8 [facility] [address] [place] [address] PCP - General Family Medicine 11/04/22 Lizzie Alves PA-C 1401 [facility], [facility] [address] [place] [address] Hospitalist Cardiology 05/27/23 Kaushik Mariscal MD 1401 [facility] [address] [place], [place] [address] Customer Assistance Representative Electrophysiology 11/18/23 documented as of this encounter
--- OUTSIDE RECORDS SUMMARY | 2024-09-28 11:06 | XMS_ITS | Encounter Summary ---
Author Organization [employer] ([place], [place], [place], [place]) Address [address] [place] [address] Care Team Providers Care Assistant Elementary Teacher Name Role Phone Lalitha Linhkarthikeyan Mazariegos DO Primary Care Provider [phone] Lizzie Alves PA-C Unavailable [phone] Kaushik Mariscal MD Unavailable Encounter Details Date Type Department Care Team (Late st Contact Info) Description 07/25/2021 Transcribed Document [facility] [place] [address] [place] [address] ProviderChad MD [address] [place] [address] Social History Tobacco Use Types [...] with bloody drainage. Patient was admitted to [facility] on 07[facility]16[facility]. Post generator [...] (Rocephin) - 2 Gram, IV Piggyback, Inj, [id number], infuse over 30 Minute(s), Routine doxycycline - [...] No tenderness, No deformity. Integumentary: Warm, Dry, [place], No pallor, No rash, ICD site left [...] (MADELEINE 15) 32 (MADELEINE 12) H 34 (MDAELEINE 10) BUN 17 (MADELEINE 16) 22 (MADELEINE [...] 10) L 3.2 (MADELEINE 09) , ACC: [id number] ORDER: Culture Wound and Stain DATE: 07/24/2021 13:45 SOURCE: Surgical Swab SITE: Pacemaker Pocket Reports Pre 07/25/2021 06:34 No growth GS 07/24/2021 21:55 No organisms seen. No cells seen == ACC: [id number] ORDER: Culture Catheter Tip DATE: 07/24/2021 13:45 SOURCE: Catheter Tip SITE: Pacemaker Pocket Reports Pre 07/25/2021 06:33 No growth == ACC: [id number] ORDER: Culture Blood DATE: 07/16/2021 12:39 SOURCE: Blood SITE: Reports Final 07/21/2021 16:01 No growth at 5 days. Pre 07/20/2021 16:01 No growth at 4 days. Pre 07/19/2021 16:01 No growth at 3 days. Pre 07/18/2021 16:01 No growth at 2 days. Pre 07/17/2021 16:02 No growth at 1 day. Pre 07/17/2021 06:01 Culture less than 24 Hrs old == ACC: [id number] ORDER: Culture Blood DATE: 07/16/2021 12:39 SOURCE: Blood SITE: Reports Final 07/21/2021 16:01 No growth at 5 days. Pre 07/20/2021 16:01 No growth at 4 days. Pre 07/19/2021 16:01 No growth at 3 days. Pre 07/18/2021 16:01 No growth at 2 days. Pre 07/17/2021 16:02 No growth at 1 day. Pre 07/17/2021 06:01 Culture less than 24 Hrs old == [facility]: [id number] ORDER: Culture Wound and Stain DATE: 07/17/2021 [...] Discussed with cardiology. Electronically signed by Rekha, [facility] Conversion Kinesiotherapist Cerner at 05/27/2022 8:58 PM CDT documented in this encounter Plan of Treatment Not on file documented as of this encounter Visit Diagnoses Not on filedocumented in this encounter Care Teams Assistant Elementary Teacher Relationship Specialty Start Date End Date Linh Doty, DO 8 [facility] [address] [place] [address] PCP - General Family Medicine 11/04/22 Lizzie Alves PA-C 1401 [facility], [facility] [address] [place] [address] Hospitalist Cardiology 05/27/23 Kaushik Mariscal MD 14[address] [facility] [address] [place], [place] [id number] Poacher Operator Electrophysiology 11/18/23 documented as of this encounter
--- OUTSIDE RECORDS SUMMARY | 2024-09-28 11:06 | XMS_ITS | Encounter Summary ---
Author Organization [employer] ([place], [place], [place], [place]) Address [address] [place] [address] Care Team Providers Care Change Consultant Name Role Phone Lalitha Linh Delilah DAVIS Primary Care Provider [phone] Lizzie Alves PA-C Unavailable [phone] Dion Mariscal MD Unavailable Encounter Details Date Type Department Care Team (Late st Contact Info) Description 07/02/2021 Transcribed Document [facility] [place] Family Medicine [address] [place] [address] ProviderChad MD [address] [place] [address] Social History Tobacco Use Types Packs/Day [...] Consult Reason : Dr. Mariscal paged at 0539. Kait Kang RN - 07/02/2021 6:40 EDT Consult Phone Call/Page Attempt : First call Provider Service Notified Name : Cardiology Physician Covering for Consult : DION MARISCAL MD-Kait Rizo RN - 07/02/2021 6:39 EDT documented in this encounter Plan of Treatment Not on file documented as of this encounter Visit Diagnoses Not on filedocumented in this encounter Care Teams Change Consultant Relationship Specialty Start Date End Date Linh Doty, DO 8 [facility] [address] [place] [address] PCP - General Family Medicine 11/04/22 Lizzie Alves PA-C [address] [place] [address], [facility] [address] [place] [address] Hospitalist Cardiology 05/27/23 Dion Mariscal MD 14[address] [facility] [address] [place] [address] Software Development Analyst Electrophysiology 11/18/23 documented as of this encounter
--- OUTSIDE RECORDS SUMMARY | 2024-09-28 11:06 | XMS_ITS | Encounter Summary ---
Author Organization [employer] ([place], [place], [place], [place]) Address [address] [place] [address] Care Team Providers Care Bottle House Pumper Name Role Phone Linh Doty DO Primary Care Provider Lizzie Alves PA-C Unavailable [phone] Kaushik Mariscal MD Unavailable Reason for Visit * Reason Comments Medication Refill Encounter Details Date Type Department Care Team (Late st Contact Info) Description 04/25/2023 Refill [facility] Cardiology [address] [place] [address] Lenka Benavidez MD [address] [facility] [address] [place] [address] Atherosclerotic heart disease of [place] coronary artery without angina pectoris; Personal history [...] Visit Diagnoses Diagnosis Atherosclerotic heart disease of [place] coronary artery without angina pectoris Personal history of other diseases of the circulatory system documented in this encounter Care Teams Bottle House Pumper Relationship Specialty Start Date End Date Linh Doty, 8 [facility] [address] [place] [address] PCP - General Family Medicine 11/04/22 Lizzie Alves PA-C [address] [place] [address], [facility] [address] [address] Hospitalist Cardiology 05/27/23 Kaushik Mariscal MD [address] [facility] [address] [address] Intramural Director Electrophysiology 11/18/23 documented as of this encounter
--- OUTSIDE RECORDS SUMMARY | 2024-09-28 11:06 | XMS_ITS | Encounter Summary ---
Author Organization [employer] ([place], [place], [place], [place]) Address [address] [place] [address] Care Team Providers Care Timing Inspector Name Role Phone Lalitha Linh Delilah DAVIS Primary Care Provider [phone] Lizzie Alves PA-C Unavailable [phone] Dion Mariscal MD Unavailable Encounter Details Date Type Department Care Team (Late st Contact Info) Description 07/02/2021 Transcribed Document [facility] [place] [facility] [place] [address] [place] [address] ProviderChad MD [address] [place] [address] Social History Tobacco Use Types Packs/Day [...] Historical ProviderMD - 07/02/2021 2:55 PM CDT [facility] [place] [address] LENA MENDOZA :1965 Visit Time:07/01/2021 [...] EDT Comments wound device check Where: [address] [facility] [address] [place] [address]- Business (1) Follow Up with LINH WILLIAM DO-FAM When Within 2 to 3 days Comments left message for Dr William office to call pt with appt time. They were out for lunch Where: [address] [place] [address]- Medications What How Much When Instructions Next Dose acetaminophen-hydrocodone (acetaminophen-HYDROcodone 325 mg-5 mg oral tablet) 120 Each, TAKE ONE TABLET BY MOUTH EVERY 6 HOURS MAY CAUSE DROWSINESS cephalexin (Keflex 500 mg oral capsule) 1 Capsule(s) Oral Every 8 Hours Duration: 7 Day(s) Pickup at [facility] clopidogrel (Plavix 75 mg oral tablet) 1 [...] 1 Tablet(s) Oral At Bedtime Pharmacy Information [facility]: [address] [facility] [address] [place], [place] [id number] [phone] Take your medications faithfully. Do NOT skip [...] Keep items that you use often in ansp-vb-wusqr places. Lower the shelves around your home [...] the way. ??? Do not use floor chinese or wax that makes floors slippery. What [...] Control and Prevention, [place]: www.cdc.gov ??? National [place] on Aging: www.delia.nih.gov Contact a doctor if: [...] provider. Document Revised: 08/29/2020 Document Reviewed: 08/29/2020 [employer] Patient Education ?? 2020 [employer] Sleep Apnea Sleep apnea affects breathing [...] ask your doctor. General instructions ??? Take cmrm-vqk-ufhahun and prescription medicines only as told by [...] these instructions at home: Medicines ??? Take srnj-flq-qouernb and prescription medicines only as told by [...] and water are not available, use hand cruise consultant. ? Change your dressing as told by [...] your chest for several days. ??? Take mgcj-mjq-qjrzxje and prescription medicines only as told by [...] provider. Document Revised: 12/27/2018 Document Reviewed: 12/27/2018 [employer] Patient Education ?? 2020 [employer]. Emergency Awareness and Preventative Care STROKE [...] Assistance with quitting is available by contacting 8-239-ADHH-NOW. This is a free resource providing counseling, [...] range between ( 0.0 and 7.0 ) [place] #: 0.57 K/uL -- Normal range between ( 0.16 and 1.00 ) Eos #: 0.05 x10(3)/uL -- Normal range between ( 0.00 and 0.80 ) [place] %: 6.9 % -- Normal range between [...] was given the opportunity to ask questions. Patient/Rn Sexual Assault Name: Patient/Rn Sexual Assault Signature: Relationship to Patient: Clinician/Hospital Rn Sexual Assault Signature: Date: documented in this encounter Plan of Treatment Not on file documented as of this encounter Visit Diagnoses Not on filedocumented in this encounter Care Teams Timing Inspector Relationship Specialty Start Date End Date Linh [place], DO 8 [facility] [address] [place] [address] PCP - General Family Medicine 11/04/22 Lizzie Alves PA-C [address] [place] [address], [facility] [address] [place] [address] Hospitalist Cardiology 05/27/23 Dion Mariscal MD [address] [facility] [address] [place] [address] Wire Inserter Electrophysiology 11/18/23 documented as of this encounter
--- OUTSIDE RECORDS SUMMARY | 2024-09-28 11:06 | XMS_ITS | Encounter Summary ---
Author Organization [employer] ([place], [place], [place], [place]) Address [address] [place] [address] Care Team Providers Care Blocker And Polisher Gold Wheel Name Role Phone Lalitha Linhkarthikeyan Mazariegos DO Primary Care Provider [phone] Lizzie Alves PA-C Unavailable [phone] Kaushik Mariscal MD Unavailable Encounter Details Date Type Department Care Team (Late st Contact Info) Description 07/25/2021 Transcribed Document [facility] [place] [address] [place] [address] ProviderChad MD [address] [place] [address] Social History Tobacco Use Types [...] On: 07/25/2021 12:05 EDT by Caryl Estrada RN-[employer] Stroke/Warfarin Instructions Stroke/TIA Discharge Ins : N/A Warfarin Discharge Ins : N/A Caryl Estrada RN-[employer] - 07/25/2021 12:05 EDT Education Topics: Anticoagulant Education Anticoagulant : Anticoagulant other than warfarin Compliance Issues *Q : Verbalizes understanding Diet *Q : Verbalizes understanding Adverse drug reactions/interactions *Q : Verbalizes understanding Action/Interaction with Other Drugs : Verbalizes understanding Follow-up care/monitoring *Q : Verbalizes understanding Follow-up Care Details : Physician's office/clinic Caryl Estrada RN-[employer] - 07/25/2021 12:05 EDT documented in this encounter Plan of Treatment Not on file documented as of this encounter Visit Diagnoses Not on filedocumented in this encounter Care Teams Blocker And Polisher Gold Wheel Relationship Specialty Start Date End Date Linh Doty, DO 8 [facility] [address] [place] [address] PCP - General Family Medicine 11/04/22 Lizzie Alves PA-C [address] [facility], [facility] [address] [place] [address] Hospitalist Cardiology 05/27/23 Kaushik Mariscal MD 1401 [facility] [address] [place] [address] Upholstery Handler Electrophysiology 11/18/23 documented as of this encounter
--- OUTSIDE RECORDS SUMMARY | 2024-09-28 11:06 | XMS_ITS | Encounter Summary ---
Author Organization [employer] ([place], [place], [place], [place]) Address [address] [place] [address] Care Team Providers Care Learning And Development Director Name Role Phone Lalitha Linhkarthikeyan Mazariegos DO Primary Care Provider [phone] Lizzie Alves PA-C Unavailable [phone] Kaushik Mariscal MD Unavailable Encounter Details Date Type Department Care Team (Late st Contact Info) Description 07/25/2021 Transcribed Document [facility] Family Medicine [address] [place] [address] ProviderChad MD [address] [place] [address] Social History Tobacco Use Types [...] ham, luncheon meats, hot dogs, canned meats, [place] sausage --Limit meat portions to no more [...] white, wheat or rye breads, plain breadsticks, norwegian muffins, hamburger buns, plain bagels, plain cake doughnuts, tru breads, baked flours or corn tortillas, crackers including gerber, animal, saltine, oyster and matzo, snacks including unsalted pretzels, popcorn, baked tortilla chips or potato chips. Homemade breads (biscuits, muffins, cornbread, rolls, pancakes and spanish toast) should be made with oils low [...] choose prepared products such as muffins, frozen spanish toast and waffles, biscuits, croissants and other [...] 5 large olives is considered a serving. --[place] oil and peanut oil are higher in [...] please call the registered dietitians at [facility] at or . We will [...] sugar-free varieties to be more thirst quenching. --[place] your teeth. --Chill mouthwash and gargle for [...] by your doctor. General instructions ??? Take pkfk-mrk-sgoeuws and prescription medicines only as told by [...] provider. Document Revised: 07/01/2018 Document Reviewed: 07/01/2018 [employer] Patient Education ? 2020 [employer]. Infectious Disease Wound Infection A wound infection [...] at home: Medicines ??? Take or apply ihhz-jpy-jrmmgvu and prescription medicines only as told by [...] cannot use soap and water, use hand social media marketing manager. ? Change your bandage as told by [...] provider. Document Revised: 09/07/2018 Document Reviewed: 09/07/2018 [employer] Patient Education ? 2020 [employer]. Infection Prevention in the Home If you [...] Supplies needed: ??? Soap. ??? Alcohol-based hand social media marketing manager. ??? Standard cleaning products. ??? Disinfectants, such [...] water are not available, use alcohol-based hand social media marketing manager. ??? Avoid touching your face, mouth, nose, [...] water. Air-dry your dishes or use a brass pickler. ??? Do not share dishes or eating [...] certain germs and not others. Read the calender machine operator's instructions or read online resources to determine [...] minutes after each use, or according to calender machine operator's instructions. ??? Wash reusable cleaning cloths and [...] water are not available, use alcohol-based hand social media marketing manager. In general: ??? Stay home except to [...] for Professionals in Infection Control and Epidemiology: professionals.site.apic.org/ibodrein-ic-fzky/ccp-iutsqwmlma-xijpubj/home/ Summary ??? It is important to know [...] provider. Document Revised: 04/02/2020 Document Reviewed: 04/22/2019 [employer] Patient Education ? 2020 [employer]. Pharmacology Antibiotic Medicine, Adult Antibiotic medicines treat [...] Follow these instructions at home: ??? Take ssgp-dqz-jrtqwwx and prescription medicines as told by your [...] provider. Document Revised: 11/15/2019 Document Reviewed: 11/15/2019 [employer] Patient Education ? 2020 [employer]. Pulmonary Medicine Steps to Quit Smoking [...] a prescription and some you can purchase ujza-dnl-gkeuzji. Medicines may have nicotine in them to [...] provider. Document Revised: 10/21/2019 Document Reviewed: 04/16/2019 [employer] Patient Education ? 2020 [employer]. Steps to Quit Smoking Smoking tobacco [...] a prescription, and some you can buy vumz-kkl-yrfwpox. Some medicines may contain a drug called [...] encourage you. ??? Call a phone quitline (8-599-MARRNOW), reach out to support groups, or work [...] provider. Document Revised: 10/21/2019 Document Reviewed: 04/16/2019 [employer] Patient Education ? 2020 [employer]. documented in this encounter Plan of Treatment Not on file documented as of this encounter Visit Diagnoses Not on filedocumented in this encounter Care Teams Learning And Development Director Relationship Specialty Start Date End Date Linh Doty, 8 [facility] [address] [place] [address] PCP - General Family Medicine 11/04/22 Lizzie Alves PA-C [address] [place] [address], [facility] [address] [place] [address] Hospitalist Cardiology 05/27/23 Kaushik Mariscal MD [address] [facility] [address] [place], [place] [id number] Fine Unhairer Electrophysiology 11/18/23 documented as of this encounter
--- OUTSIDE RECORDS SUMMARY | 2024-09-28 11:06 | XMS_ITS | Clinical Summary ---
Author Organization [facility] Address [address] [place] [address] Phone Care Team Providers Care Probation Agent Name Role Phone Fracisco DALTON, Gilson Begum Unavailable [ ] Conditions or Problems Problem Name Problem Code Onset Date Status Entry Date Provider Comment Standard Description Annotate Dermatitis due to drug AND/OR medicine taken internally 06543606 (SNOMED CT) 08/21 Active 08/21 Gilson Yap [...] subsequent encounter Cellulitis/wo und infection, chest wall 78690386 (SNOMED CT) 07/26 Active 07/26 Sherri Herndon Cellulitis of chest wall Ischemic Cardiomyopath y 229793724 (SNOMED CT) 07/26 Active 07/26 Sherri Herndon Generalized ischemic myocardial dysfunction Nicotine dependence, cigarettes 25497704 (SNOMED CT) 07/26 Active 07/26 Sherri Herndon Cigarette smoker COPD 86347947 (SNOMED CT) 07/26 Active 07/26 Sherri Herndon Chronic obstructive pulmonary disease Acute respiratory failure with hypoxia 59683762 (SNOMED CT) 07/26 Active 07/26 Sherri Herndon Acute respiratory failure Hypoalbuminem ia 526628414 (OMED CT) 07/26 Active 07/26 Sherri Herndon Hypoalbuminemia Hypocalcemia 3320852 ([facility] CT) 07/26 Active 07/26 Sherri Herndon Hypocalcemia Thrombocytope delia, secondary D69.59 (ICD-10-CM ) 07/26 Active 07/26 Sherri Herndon Other secondary thrombocytopenia Hyponatremia 52419062 ([facility] CT) 07/26 Active 07/26 Sherri Herndon Hyponatremia Medications Medication Instructions Start Date Stop Date Generic Name NDC Provider HYDROCODONE-ROSE TAMINOPHEN 5-325 MG TABS 1 Tab, as needed, Oral, every 8 hours hydrocodone-acet aminophen 81801308862 Faina Cantu CARVEDILOL 12.5 MG TABS 1 Tab, Oral, twice a day carvedilol 27679789209 Faina Cantu CEFDINIR 300 MG CAPS 1 Cap, Oral, every 12 hours cefdinir 36478415303 Faina Cantu DOXYCYCLINE HYCLATE 100 MG CAPS 1 Cap, Oral, twice a day doxycycline hyclate 24159973133 Faina Cantu FLORASTOR 250 MG CAPS 1 Cap, Oral, twice a day saccharomyces boulardii 53029973041 Faina Cantu FLUTICASONE PROPIONATE 50 MCG/ACT SUSP 2 [place], as needed, Nasal, Daily fluticasone propionate 98026325577 Faina Cantu FOLIC ACID 1 MG TABS 1 Tab, Oral, Daily folic acid 67650585130 Faina Cantu FUROSEMIDE 20 MG TABS 1 Tab, Oral, Daily furosemide 41396530744 Faina Cantu GABAPENTIN 600 MG TABS 1 Tab, Oral, three times a day gabapentin 43225126723 Faina Cantu LISINOPRIL 20 MG TABS 1 Tab, Oral, At Bedtime lisinopril 10823092648 Faina Cantu NICOTINE STEP 1 21 MG/24HR PT24 1 Patch, TransDermal, Daily nicotine 73793945912 Faina Cantu PANTOPRAZOLE SODIUM 40 MG TBEC 1 Tab, Oral, Daily pantoprazole 82901023258 Faina Cantu POTASSIUM CHLORIDE ER 20 MEQ CR-TABS 1 Tab, Oral, Daily potassium chloride 32985689804 Faina Cantu TOPIRAMATE 25 MG TABS 1 Tab, Oral, At Bedtime topiramate 37938927938 Faina Cantu VITAMIN D (ERGOCALCIFEROL ) 1.25 MG (73789 UT) CAPS 1 Cap, Oral, Weekly ergocalciferol (vitamin d2) 31278539480 Faina Cantu Medications Administered No information available. [...] Name Date Entry Date CPT-sl STAT Labs CPT-59670 CMP [id number] CBC with Differential 2021 CPT-10188 C- reactive protein CPT-Cooral Continue oral antibiotics [...]
--- OUTSIDE RECORDS SUMMARY | 2024-09-28 11:06 | XMS_ITS | Encounter Summary ---
Author Organization [employer] ([place], [place], [place], [place]) Address [address] [place] [address] Care Team Providers Care Poultry Killer Name Role Phone Grace Linh Delilah DAVIS Primary Care Provider [phone] Lizzie Alves PA-C Unavailable [phone] Kaushik Mariscal MD Unavailable Encounter Details Date Type Department Care Team (Late st Contact Info) Description 07/02/2021 Transcribed Document [facility] Family Medicine [address] [place] [address] ProviderChad MD [address] [place] [address] Social History Tobacco Use Types Packs/Day [...] On: 07/02/2021 13:09 EDT by ERNIE PAYAN, RN-Tobacco SamplerForeign Agent Progress Note Discharge Arrangements : Patient Post-Acute Information Patient Name: GAGAN SEALS Gender: Female : 63 Age: 55 Years No Post-Acute Placement(s) Listed No Post-Acute Service(s) Listed No Curaspan Referral(s) Listed Patient Discharge Goal : Home ERNIE PAYAN RN-Tobacco Sampler - 07/02/2021 13:09 EDT Narrative Progress Note Narrative Progress Note : received call from Dr grace Gonzalez office. she spoke with ms. seals to schedule follow up appt. pt declined to schedule appt as will see Jimenez next week. ERNIE PAYAN, RN-Tobacco Sampler - 07/02/2021 13:09 EDT documented in this encounter Plan of Treatment Not on file documented as of this encounter Visit Diagnoses Not on filedocumented in this encounter Care Teams Poultry Killer Relationship Specialty Start Date End Date Linh Doty, DO [address] [facility] [address] [place] [address] PCP - General Family Medicine 11/04/22 Lizzie Avles PA-C [address] [facility] [address] [place] [address] Hospitalist Cardiology 05/27/23 Kaushik Mariscal MD [address] [facility] [address] [place], [place] [address] Oriental Rug Repairer Electrophysiology 11/18/23 documented as of this encounter
--- OUTSIDE RECORDS SUMMARY | 2024-09-28 11:06 | XMS_ITS | Encounter Summary ---
Author Organization [employer] ([place], [place], [place], [place]) Address [address] [place] [address] Care Team Providers Care Refrigerating Machine Operator Name Role Phone Lalitha Linhkarthikeyan Mazariegos DO Primary Care Provider [phone] Lizzie Alves PA-C Unavailable [phone] Dion Mariscal MD Unavailable Encounter Details Date Type Department Care Team (Late st Contact Info) Description 07/02/2021 Transcribed Document [facility] Family Medicine [address] [place] [address] ProviderChad MD [address] [place] [address] Social History Tobacco Use Types Packs/Day [...] Historical ProviderMD - 07/02/2021 2:09 PM CDT [facility] [place] [address] LENA MENDOZA :1965 Visit Time:07/01/2021 [...] EDT Comments wound device check Where: [address] [facility] [address] [place] [address]- Business (1) Follow Up with LINH WILLIAM DO-FAM When Within 2 to 3 days Comments left message for Dr William office to call pt with appt time. They were out for lunch Where: [address] [place] [address]- Medications What How Much When Instructions Next Dose acetaminophen-hydrocodone (acetaminophen-HYDROcodone 325 mg-5 mg oral tablet) 120 Each, TAKE ONE TABLET BY MOUTH EVERY 6 HOURS MAY CAUSE DROWSINESS cephalexin (Keflex 500 mg oral capsule) 1 Capsule(s) Oral Every 8 Hours Duration: 7 Day(s) Pickup at [facility] clopidogrel (Plavix 75 mg oral tablet) 1 [...] 1 Tablet(s) Oral At Bedtime Pharmacy Information [facility]: [address] [facility] [address] [place], [place] [phone] Take your medications faithfully. Do NOT skip [...] Keep items that you use often in ygav-as-ugbkc places. Lower the shelves around your home [...] the way. ??? Do not use floor uzbek or wax that makes floors slippery. What [...] Control and Prevention, STEADI: www.cdc.gov ??? National [place] on Aging: www.delia.nih.gov Contact a doctor if: [...] provider. Document Revised: 08/29/2020 Document Reviewed: 08/29/2020 [employer]What Patient Education ?? 2020 [employer] Inc. Sleep Apnea Sleep apnea affects breathing [...] ask your doctor. General instructions ??? Take ybmv-rae-wulurhi and prescription medicines only as told by [...] these instructions at home: Medicines ??? Take krru-fxh-ttexjjo and prescription medicines only as told by [...] and water are not available, use hand dedenter. ? Change your dressing as told by [...] your chest for several days. ??? Take togx-yvk-twpqefq and prescription medicines only as told by [...] provider. Document Revised: 12/27/2018 Document Reviewed: 12/27/2018 [employer] Patient Education ?? 2020 [place]. Emergency Awareness and Preventative Care STROKE is [...] Assistance with quitting is available by contacting 8-734-ZEGZ-NOW. This is a free resource providing counseling, [...] range between ( 0.0 and 7.0 ) [place] #: 0.57 K/uL -- Normal range between ( 0.16 and 1.00 ) Eos #: 0.05 x10(3)/uL -- Normal range between ( 0.00 and 0.80 ) [place] %: 6.9 % -- Normal range between [...] was given the opportunity to ask questions. Patient/Rubber Production Machine Operator Name: Patient/Rubber Production Machine Operator Signature: Relationship to Patient: Clinician/Hospital Rubber Production Machine Operator Signature: Date: documented in this encounter Plan of Treatment Not on file documented as of this encounter Visit Diagnoses Not on filedocumented in this encounter Care Teams Refrigerating Machine Operator Relationship Specialty Start Date End Date Linh William, DO 8 [facility] [address] [place] [address] PCP - General Family Medicine 11/04/22 Lizzie Alves PA-C [address] [place] [address], [facility] [address] [place] [address] Hospitalist Cardiology 05/27/23 Dion Mariscal MD [address] [facility] [address] [place] [address] Senior Biostatistician/Group Leader Electrophysiology 11/18/23 documented as of this encounter
--- OUTSIDE RECORDS SUMMARY | 2024-09-28 11:06 | XMS_ITS | Encounter Summary ---
Author Organization [employer] ([place], [place], [place], [place]) Address [address] [place] [address] Care Team Providers Care Aquatics Lifeguard Name Role Phone Lalitha Linhkarthikeyan Mazariegos DO Primary Care Provider [phone] Lizzie Alves PA-C Unavailable [phone] Kaushik Mariscal MD Unavailable Encounter Details Date Type Department Care Team (Late st Contact Info) Description 07/02/2021 Transcribed Document [facility] Family Medicine [address] [place] [address] ProviderChad MD [address] [place] [address] Social History Tobacco Use Types Packs/Day Years Used Date Smoking Tobacco: Never Assessed Family and Community Support Answer Geremias e Recorded Help with Day to Day Activities Not on file 02/27/2023 Feeling Lonely or Isolated Not on file 02/27 Educational Attainment Answer Date Mendez rded Speak language other than Indian at home Not on file 02/27/2023 Want [...] Policy Numbers : Insurance 1 Health Plan: [employer] MANAGED MEDICARE Policy Number: [id number] Authorization Number: [id number] Insurance Primary Name : Health Plan: [employer] MANAGED MEDICARE Policy Number: [id number] Authorized Service Begin Date-Primary : 07/01/2021 EDT Historical Authorization Comments-Primary : No Authorization Comments Found Khushi Jones Rn-Utilization Review - 07/02/2021 11:31 EDT documented in this encounter Plan of Treatment Not on file documented as of this encounter Visit Diagnoses Not on filedocumented in this encounter Care Teams Aquatics Lifeguard Relationship Specialty Start Date End Date Linh Doty, 8 [facility] [address] [place] [address] PCP - General Family Medicine 11/04/22 Lizzie Alves PA-C [address] [place] [address] [address] [place] [address] Hospitalist Cardiology 05/27/23 Kaushik Mariscal MD [address] [facility] [address] [place] [address] Heritage Consultant Electrophysiology 11/18/23 documented as of this encounter
--- OUTSIDE RECORDS SUMMARY | 2024-09-28 11:07 | XMS_ITS | Encounter Summary ---
Author Organization [employer] ([place], [place], [place], [place]) Address [address] [place] [address] Care Team Providers Care Breakfast Host Name Role Phone Lalitha Linh Delilah DAVIS Primary Care Provider [phone] Lizzie Alves PA-C Unavailable [phone] Kaushik Mariscal MD Unavailable Encounter Details Date Type Department Care Team (Late st Contact Info) Description 07/21/2021 Transcribed Document [facility] Family Medicine [address] [place] [address] ProviderChad MD [address] [place] [address] Social History Tobacco Use Types Packs/Day [...] on filedocumented in this encounter Care Teams Breakfast Host Relationship Specialty Start Date End Date Linh Doty, DO 8 [facility] [address] [place] [address] PCP - General Family Medicine 11/04/22 Lizzie Alves PA-C [address] [place] [address], [facility] [address] [place] [address] Hospitalist Cardiology 05/27/23 Kaushik Mariscal MD [address] [facility] [address] [place] [address] Paper Cup Machine Operator Electrophysiology 11/18/23 documented as of this encounter
--- OUTSIDE RECORDS SUMMARY | 2024-09-28 11:07 | XMS_ITS | Encounter Summary ---
Author Organization [employer] ([place], [place], [place], [place]) Address [address] [place] [address] Care Team Providers Care Manager Registration Name Role Phone Linh Doty DO Primary Care Provider Lizzie Alves PA-C Unavailable [phone] Kaushik Mariscal MD Unavailable Reason for Visit * Reason Comments Medication Refill Encounter Details Date Type Department Care Team (Late st Contact Info) Description 04/20/2023 Refill [facility] Cardiology [address] [place] [address] Pedro Cruz APRN [address] [facility] [address] [place] [address] Acute coronary thrombosis not resulting in myocardial [...] Date Mendez rded Speak language other than Hungarian at home Not on file 02/27/2023 Want [...] (HCC) documented in this encounter Care Teams Manager Registration Relationship Specialty Start Date End Date Linh Doty, 8 [facility] [address] [place] [address] PCP - General Family Medicine 11/04/22 Lizzie Alves PA-C [address] [place] [address], [facility] [address] [place] [address] Hospitalist Cardiology 05/27/23 Kaushik Mariscal MD [address] [facility] [address] [place] [address] Wall Taper Electrophysiology 11/18/23 documented as of this encounter
--- OUTSIDE RECORDS SUMMARY | 2024-09-28 11:07 | XMS_ITS | Encounter Summary ---
Author Organization [employer] ([place], [place], [place], [place]) Address [address] [place] [address] Care Team Providers Care Electrical Engineering Teacher Name Role Phone Lalitha Linhkarthikeyan Mazariegos DO Primary Care Provider [phone] Lizzie Alves PA-C Unavailable [phone] Kaushik Mariscal MD Unavailable Encounter Details Date Type Department Care Team (Late st Contact Info) Description 07/18/2021 Transcribed Document [facility] Radiology [address] [place] [id number] Yanick Torres MD [address] [place] [address] [place] [address] Social History Tobacco Use Types Packs/Day Years Used Date Smoking Tobacco: Never Assessed Family and Community Support Answer Geremias e Recorded Help with Day to Day Activities Not on file 02/27/2023 Feeling Lonely or Isolated Not on file 02/27 Educational Attainment Answer Date Mendez rded Speak language other than Emirati at home Not on file 02/27/2023 Want [...] mL: 1,000 mg, 250 mL/Hr, IV Piggyback, [id number] Prescriptions Prescribed nicotine 21 mg/24 hr transdermal [...] Refill(s) fluticasone 50 mcg/inh nasal spray: 2 [place], Nasal, Daily, PRN: Nasal Congestion, 16 Gram, [...] BID fluticasone 50 mcg/inh nasal spray 2 [place], PRN, Nasal, Daily folic acid 1 mg [...] 0.9% 250 mL 1,000 mg, IV Piggyback, [id number] Continuous: (0) PRN: (7) acetaminophen 325 mg [...] At risk for sleep apnea / IMO [id number] / Confirmed High cholesterol / SNOMED CT 05684160 / Confirmed Canceled: At risk for sleep apnea / IMO [id number] Canceled: COPD (chronic obstructive pulmonary disease) / SNOMED CT 26325696 Canceled: HTN (hypertension) / SNOMED CT 9592070211, Active Problems (12) Arteriosclerosis At risk for [...] gallop, S1+ S2 No S3 or S4 [place].. Gastrointestinal: Soft, Non-tender, Non-distended, Normal bowel sounds. [...] on filedocumented in this encounter Care Teams Electrical Engineering Teacher Relationship Specialty Start Date End Date Linh Doty, DO [address] [facility] [address] [place] [address] PCP - General Family Medicine 11/04/22 Lizzie Alves PA-C [address] [facility] [address] [place] [address] Hospitalist Cardiology 05/27/23 Kaushik Mariscal MD [address] [facility] [address] [place] [address] Order Worker Electrophysiology 11/18/23 documented as of this encounter
--- OUTSIDE RECORDS SUMMARY | 2024-09-28 11:07 | XMS_ITS | Encounter Summary ---
Author Organization [employer] ([place], [place], [place], [place]) Address [address] [place] [address] Care Team Providers Care Arm Rest Builder Name Role Phone Lalitha Linhkarthikeyan Mazariegos DO Primary Care Provider [phone] Lizzie Alves PA-C Unavailable [phone] Kaushik Mariscal MD Unavailable Encounter Details Date Type Department Care Team (Late st Contact Info) Description 07/18/2021 Transcribed Document [facility] Family Medicine [address] [place] [address] ProviderChad MD [address] [place] [address] Social History Tobacco Use Types [...] On: 07/18/2021 16:09 EDT by Mayra Vann Mental Health Director Rn Care Management Progress Note Discharge Arrangements : Patient Post-Acute Information Patient Name: GAGAN MENDOZA Gender: Female : 63 Age: 55 Years No Post-Acute Placement(s) Listed No Post-Acute Service(s) Listed No Curaspan Referral(s) Listed Discharge Options Discussed with Patient : Acute rehabilitation, Discharge transportation, DME, Home Health, Outpatient services Patient Discharge Goal : Home Mayra Vann Mental Health Director Rn - 07/18/2021 16:09 EDT Narrative Progress Note Narrative Progress Note : hd 2 low rar patient has orders from ID r/t iv abx and picc care but patient has no orders for PICC placement at this time, CM has reached out to ID. [facility]. patient will also need hh dcp- home with hh and iv abx Mayra Vann Mental Health Director Rn - 07/18/2021 16:09 EDT documented in this encounter Plan of Treatment Not on file documented as of this encounter Visit Diagnoses Not on filedocumented in this encounter Care Teams Arm Rest Builder Relationship Specialty Start Date End Date Linh Doty, DO 8 [facility] [address] [place] [address] PCP - General Family Medicine 11/04/22 Lizzie Alves PA-C [address] [place] [address], [facility] [address] [place] [address] Hospitalist Cardiology 05/27/23 Kaushik Mariscal MD 14[address] [facility] [address] [place] [address] Nurse Supervisor Electrophysiology 11/18/23 documented as of this encounter
--- OUTSIDE RECORDS SUMMARY | 2024-09-28 11:07 | XMS_ITS | Encounter Summary ---
Author Organization [employer] ([place], [place], [place]) Address [address] [place] [address] Care Team Providers Care Food Service Coordinator Name Role Phone Lalitha Linh Delilah DAVIS Primary Care Provider [phone] Lizzie Alves PA-C Unavailable [phone] Kaushik Mariscal MD Unavailable Encounter Details Date Type Department Care Team (Late st Contact Info) Description 07/22/2021 Transcribed Document [facility] [place] Family Medicine [address] [place] [address] ProviderChad MD [address] [place] [address] Social History Tobacco Use Types Packs/Day [...] with bloody drainage. Patient was admitted to [facility] on 07/16/2021. Post generator change, [...] (Rocephin) - 2 Gram, IV Piggyback, Inj, [id number], infuse over 30 Minute(s), Routine DAPTOmycin + Sodium Chloride 0.9% intravenous solution 50 mL - 400 mg, IV Piggyback, Inj, [id number], infuse over 30 Minute(s), Routine Anticoagulant alteplase [...] No tenderness, No deformity. Integumentary: Warm, Dry, [place], No pallor, No rash, ICD site left [...] 09) L 3.3 (MADELEINE 08) , ACC: [id number] ORDER: Culture Blood DATE: 07/16/2021 12:39 SOURCE: Blood SITE: Reports Final 07/21/2021 16:01 No growth at 5 days. Pre 07/20/2021 16:01 No growth at 4 days. Pre 07/19/2021 16:01 No growth at 3 days. Pre 07/18/2021 16:01 No growth at 2 days. Pre 07/17/2021 16:02 No growth at 1 day. Pre 07/17/2021 06:01 Culture less than 24 Hrs old == ACC: [id number] ORDER: Culture Blood DATE: 07/16/2021 12:39 SOURCE: Blood SITE: Reports Final 07/21/2021 16:01 No growth at 5 days. Pre 07/20/2021 16:01 No growth at 4 days. Pre 07/19/2021 16:01 No growth at 3 days. Pre 07/18/2021 16:01 No growth at 2 days. Pre 07/17/2021 16:02 No growth at 1 day. Pre 07/17/2021 06:01 Culture less than 24 Hrs old == ACC: [id number] ORDER: Culture Wound and Stain DATE: 07/17/2021 08:34 SOURCE: Wound SITE: Chest L Reports Final 07/20/2021 07:46 No growth Pre 07/18/2021 06:24 No growth GS 07/17/2021 14:09 No cells seen No organisms seen. == , Radiology Results (Last 48 hours) [id number] -- 07/16/2021 14:13 CR Chest 1 Vw [...] Weekly PICC dressing changes. Fax orders to [id number], call [phone] with final arrangements. Hold rosuvastatin while on daptomycin to decrease risk of rhabdomyolysis. Arrange for follow-up with me in 1 week post discharge. Electronically signed by Reyna Da Silva Conversion Cathodic Protection Technician Cerner at 05/27/2022 9:14 PM CDT documented in this encounter Plan of Treatment Not on file documented as of this encounter Visit Diagnoses Not on filedocumented in this encounter Care Teams Food Service Coordinator Relationship Specialty Start Date End Date Linh Doty, DO [address] [place] [address] PCP - General Family Medicine 11/04/22 Lizzie Alves PA-C [address] [facility], [facility] [address] [place] [address] Hospitalist Cardiology 05/27/23 Kaushik Mariscal MD 1401 [facility] [address] [place] [address] Supervisor Grower Electrophysiology 11/18/23 documented as of this encounter
--- OUTSIDE RECORDS SUMMARY | 2024-09-28 11:07 | XMS_ITS | Encounter Summary ---
Author Organization [employer] ([place], [place], [place], [place]) Address [address] [place] [address] Care Team Providers Care Civil Engineering Design Draftsperson Name Role Phone Lalitha Linh Delilah DAVIS Primary Care Provider [phone] Lizzie Alves PA-C Unavailable [phone] Kaushik Mariscal MD Unavailable Encounter Details Date Type Department Care Team (Late st Contact Info) Description 07/19/2021 Transcribed Document [facility] Family Medicine [address] [place] [address] ProviderChad MD [address] [place] [address] Social History Tobacco Use Types Packs/Day Years Used Date Smoking Tobacco: Never Assessed Family and Community Support Answer Geremias e Recorded Help with Day to Day Activities Not on file 02/27/2023 Feeling Lonely or Isolated Not on file 02/27 Educational Attainment Answer Date Mendez rded Speak language other than Djiboutian at home Not on file 02/27/2023 Want [...] Policy Numbers : Insurance 1 Health Plan: [employer] MANAGED MEDICARE Policy Number: [id number] Authorization Number: Insurance Primary Name : [facility] MANAGED MEDICARE Policy Number: [id number] Authorization Status-Primary : Awaiting callback Reference Number-Primary : [id number] Authorized Service Begin Date-Primary : 07/16/2021 EDT Authorization Comments-Primary : UNDER REVIEW PER PORTAL Historical Authorization Comments-Primary : Comment 1: CLINICAL FAXED VIA [employer] (Khushi Jones Rn-Utilization Review 07/17/2021 15:22) Comment 2: REF# PER [employer]. CLINICAL FAXED VIA [employer] (Khushi Jones Rn-Utilization Review 07/17/2021 15:17) Khushi Jones Rn-Utilization Review - 07/19/2021 9:22 EDT documented in this encounter Plan of Treatment Not on file documented as of this encounter Visit Diagnoses Not on filedocumented in this encounter Care Teams Civil Engineering Design Draftsperson Relationship Specialty Start Date End Date Linh Doty, DO [address] [facility] [address] [place] [address] PCP - General Family Medicine 11/04/22 Lizzie Alves PA-C 1401 [facility], [facility] [address] [place] [address] Hospitalist Cardiology 05/27/23 Kaushik Mariscal MD 14[address] [facility] [address] [place], [place] [id number] Enterprise Security Architect Electrophysiology 11/18/23 documented as of this encounter
--- OUTSIDE RECORDS SUMMARY | 2024-09-28 11:07 | XMS_ITS | Encounter Summary ---
Author Organization [employer] ([place], [place], [place], [place]) Address [address] [place] [address] Care Team Providers Care Heater Installer Name Role Phone Lalitha Linh Delilah DAVIS Primary Care Provider [phone] Lizzie Alves PA-C Unavailable [phone] Kaushik Mariscal MD Unavailable Encounter Details Date Type Department Care Team (Late st Contact Info) Description 07/19/2021 Transcribed Document [facility] Family Medicine [address] [place] [address] ProviderChad MD [address] [place] [address] Social History Tobacco Use Types [...] with bloody drainage. Patient was admitted to [facility] on 07/16/2021. Post generator change, [...] (Rocephin) - 2 Gram, IV Piggyback, Inj, [id number], infuse over 30 Minute(s), Routine DAPTOmycin + Sodium Chloride 0.9% intravenous solution 50 mL - 400 mg, IV Piggyback, Inj, Q39BIvw, infuse over 30 Minute(s), Routine Anticoagulant alteplase [...] Normal strength, No tenderness. Integumentary: Warm, Dry, [place], No pallor, No rash, ICD site left [...] (MADELEINE 09) 10.1 (MADELEINE 08) H 10.7 (MADELIENE 07) Lactic 1.0 (MADELEINE 07) PT 11.1 [...] (JUL 17) 3.5 (JUL 16) , ACC: [id number] ORDER: Culture Wound and Stain DATE: 07/17/2021 08:34 SOURCE: Wound SITE: Chest L Reports Pre 07/18/2021 06:24 No growth GS 07/17/2021 14:09 No cells seen No organisms seen. == [facility]: [id number] ORDER: Culture Blood DATE: 07/16/2021 12:39 SOURCE: Blood SITE: Reports Pre 07/19/2021 16:01 No growth at 3 days. Pre 07/18/2021 16:01 No growth at 2 days. Pre 07/17/2021 16:02 No growth at 1 day. Pre 07/17/2021 06:01 Culture less than 24 Hrs old == [facility]: [id number] ORDER: Culture Blood DATE: 07/16/2021 12:39 SOURCE: [...] Weekly PICC dressing changes. Fax orders to [id number], call [phone] with final arrangements. Hold rosuvastatin while on daptomycin to decrease risk of rhabdomyolysis. Arrange for follow-up with me in 1 week post discharge. Electronically signed by Reyna Da Silva Conversion Pressurised Container Filler Cerner at 05/27/2022 9:06 PM CDT documented in this encounter Plan of Treatment Not on file documented as of this encounter Visit Diagnoses Not on filedocumented in this encounter Care Teams Heater Installer Relationship Specialty Start Date End Date Linh Doty, DO [address] [facility] [address] [place] [address] PCP - General Family Medicine 11/04/22 Lizzie Alves PA-C 1401 [facility], [facility] [address] [place] [address] Hospitalist Cardiology 05/27/23 Kaushik Mariscal MD 14[address] [facility] [address] [place] [address] Planning Technician Electrophysiology 11/18/23 documented as of this encounter
--- OUTSIDE RECORDS SUMMARY | 2024-09-28 11:07 | XMS_ITS | Referral Summary ---
Author Organization [employer] ([place], [place], [place], [place]) Address [address] [place] [address] Care Team Providers Care Physical Therapy Attendant Name Role Phone Lalitha Linhkarthikeyan Mazarieogs DO Primary Care Provider [phone] Lizzie Alves PA-C Unavailable [phone] Kaushik Mariscal MD Unavailable Encounters Date Type Department Care Team Description 09/15/2024 3:00 AM EDT Clinical Support [facility] Electrophysiology [address] [place] [address] Kaushik Mariscal MD Encounter for adjustment or management of cardiac device (Primary Dx); Ischemic cardiomyopathy with implantable cardioverter-defibrill ator (ICD); Chronic combined systolic and diastolic congestive heart failure (HCC) 08/15/2024 5:00 AM EDT Clinical Support [facility] Electrophysiology [address] [place] [address] Kaushik Mariscal MD Encounter for adjustment or management of cardiac device (Primary Dx); Ischemic cardiomyopathy with implantable cardioverter-defibrill ator (ICD); Chronic combined systolic and diastolic congestive heart failure (HCC) 07/15/2024 5:00 AM EDT Clinical Support [facility] Electrophysiology [address] [place] [address] Louise Gottlieb MD Encounter for adjustment or management of cardiac device (Primary Dx); Ischemic cardiomyopathy with implantable cardioverter-defibrill ator (ICD); Chronic combined systolic and diastolic congestive heart failure (HCC) 07/11/2024 6:00 AM EDT Clinical Support [facility] Electrophysiology [address] [place] [address] Louise Gottlieb MD Encounter for adjustment [...] 75 mg tabletIndications :Atherosclerotic heart disease of [place] coronary artery without angina pectoris TAKE ONE [...] on file Medical Devices Implanted Type Area Stock Pitcher Device Identifier Shelf Expiration Date Model / Serial / Lot Icd-08/26/2021 Implanted:08/26 by Kaushik Mariscal MD (Quantity not on file) ICD [employer] 500Q / [id number] / Insurance [facility] AD[facility] Care Teams Physical Therapy Attendant Relationship Specialty Start Date End Date Linh Doty, [address] [facility] [address] [place] [address] PCP - General Family Medicine 11/04/22 Lizzie Alves PA-C 1401 [facility], [facility] [address] [place] [address] Hospitalist Cardiology 05/27/23 Kaushik Mariscal MD 1401 [facility] [address] [place] [address] Nascar Driver Electrophysiology 11/18/23
--- OUTSIDE RECORDS SUMMARY | 2024-09-28 11:07 | XMS_ITS | Encounter Summary ---
Author Organization [employer] ([place], [place], [place], [place]) Address [address] [place] [address] Care Team Providers Care Make Up Operator Name Role Phone Lalitha Linh Delilah DAVIS Primary Care Provider [phone] Lizzie Alves PA-C Unavailable [phone] Kaushik Mariscal MD Unavailable Encounter Details Date Type Department Care Team (Late st Contact Info) Description 07/19/2021 Transcribed Document [facility] [place] [address] [place] [address] ProviderChad MD [address] [place] [address] Social History Tobacco Use Types [...] Policy Numbers : Insurance 1 Health Plan: [employer] MANAGED MEDICARE Policy Number: [id number] Authorization Number: Insurance Primary Name : [employer] MANAGED MEDICARE Policy Number: [id number] Authorization Status-Primary : Admit approved Reference Number-Primary : [id number] Authorization Number-Primary : [id number] Number of Days Authorized-Primary : 6 Day(s) Authorized Service Begin Date-Primary : 07/16/2021 EDT Authorized Service End Date-Primary : 07/22/2021 EDT Authorization Comments-Primary : PER PORTAL IP APPROVED FOR 07/16 UP TO BUT NOT INCLUDING 07/22 Historical Authorization Comments-Primary : Comment 1: UNDER REVIEW PER [employer] PORTAL (Khushi Jones, Rn-Utilization Review 07/19/2021 09:22) Comment 2: CLINICAL FAXED VIA [employer] (Khushi Jones Rn-Utilization Review 07/17/2021 15:22) Comment 3: REF# PER GU[employer]. CLINICAL FAXED VIA [employer] (Khushi Jones Rn-Utilization Review 07/17/2021 15:17) Khushi Jones Rn-Utilization Review - 07/19/2021 13:56 EDT documented in this encounter Plan of Treatment Not on file documented as of this encounter Visit Diagnoses Not on filedocumented in this encounter Care Teams Make Up Operator Relationship Specialty Start Date End Date Linh Doty, DO [address] [place] [address] PCP - General Family Medicine 11/04/22 Lizzie Alves PA-C [address], [facility] [address] [place] [address] Hospitalist Cardiology 05/27/23 Kaushik Mariscal MD 1401 [facility] [place] [address] Lactation Consultant Electrophysiology 11/18/23 documented as of this encounter
--- OUTSIDE RECORDS SUMMARY | 2024-09-28 11:07 | XMS_ITS | Encounter Summary ---
Author Organization [employer] ([place], [place], [place], [place]) Address [address] [place] [address] Care Team Providers Care Radio Dispatcher Name Role Phone Lalitha Linhkarthikeyan Mazariegos DO Primary Care Provider [phone] Lizzie Alves PA-C Unavailable [phone] Dion Mariscal MD Unavailable Encounter Details Date Type Department Care Team (Late st Contact Info) Description 07/21/2021 Transcribed Document [facility] Family Medicine [address] [place] [address] ProviderChad MD [address] [place] [address] Social History Tobacco Use Types Packs/Day Years Used Date Smoking Tobacco: Never Assessed Family and Community Support Answer Geremias e Recorded Help with Day to Day Activities Not on file 02/27/2023 Feeling Lonely or Isolated Not on file 02/27 Educational Attainment Answer Date Mendez rded Speak language other than Nigerien at home Not on file 02/27/2023 Want [...] 3 mL, Nebulized Inhalation , Q8H ergocalciferol, [address]128 Units= 1 Cap, Oral, Weekly Florastor, 250 [...] Man 47 % (High) 07/21/2021 04:12 EDT [place] Percent Man 3 % (Low) 07/21/2021 04:12 [...] on filedocumented in this encounter Care Teams Radio Dispatcher Relationship Specialty Start Date End Date Linh Doty, [address] [place] [address] PCP - General Family Medicine 11/04/22 Lizzie Alves PA-C [address], [facility] [address] [place] [address] Hospitalist Cardiology 05/27/23 Dion Mariscal MD 14[address] [facility] [place] [address] Type Cutter Electrophysiology 11/18/23 documented as of this encounter
--- OUTSIDE RECORDS SUMMARY | 2024-09-28 11:07 | XMS_ITS | Encounter Summary ---
Author Organization [employer] ([place], [place], [place], [place]) Address [address] [place] [address] Care Team Providers Care Rubber Process Hand Name Role Phone Lalitha Linhkarthikeyan Mazariegos DO Primary Care Provider Lizzie Alves PA-C Unavailable [phone] Kaushik Mariscal MD Unavailable Encounter Details Date Type Department Care Team (Late st Contact Info) Description 07/19/2021 Transcribed Document [facility] Radiology [address] [phone] Yanick Torres MD [address] [place] [address] [place] [address] Social History Tobacco Use Types Packs/Day Years [...] mg, 8 mL, 116 mL/Hr, IV Piggyback, [id number] Florastor: 250 mg, Oral, BID Lasix: 20 mg, Oral, Daily MiraLax: 17 Gram, Oral, Daily, PRN: Constipation Normal Saline Flush: 10 mL, IntraCATHeter, Q12H Rocephin: 2 Gram, 100 mL/Hr, IV Piggyback, C89HBpd Roxicodone: 5 mg, Oral, Q4H, PRN: Pain [...] 0 Refill(s) Rocephin: 2 Gram, IV Piggyback, C74NMny, 0 Refill(s) Vitamin D2 1.25 mg (50,000 intl units) oral capsule: 1 Cap, Oral, Weekly, 0 Refill(s) acetaminophen-HYDROcodone 325 mg-5 mg oral tablet: 1 Tab, Oral, Q8H, PRN: for pain, 0 Refill(s) carvedilol 12.5 mg oral tablet: 1 Tab, Oral, BID, 180 Tab, 0 Refill(s) fluticasone 50 mcg/inh nasal spray: 2 Jayess, Nasal, Daily, PRN: Nasal Congestion, 16 Gram, [...] BID fluticasone 50 mcg/inh nasal spray 2 Jayess, PRN, Nasal, Daily folic acid 1 mg [...] Oral, Daily Rocephin 2 Gram, IV Piggyback, O25BKrb topiramate 25 mg oral tablet 25 mg [...] Oral, BID cefTRIAXone 2 Gram, IV Piggyback, B12XXzj DAPTOmycin + NaCl 0.9% 50 mL 400 mg 8 mL, IV Piggyback, A12WQir ergocalciferol 50,000 unit cap 50,000 Units 1 [...] At risk for sleep apnea / IMO 97858762 / Confirmed High cholesterol / SNOMED CT 06118167 / Confirmed Canceled: At risk for sleep apnea / IMO 52704461 Canceled: COPD (chronic obstructive pulmonary disease) / SNOMED CT 95660843 Canceled: HTN (hypertension) / SNOMED CT 8955487622, Active Problems (12) Arteriosclerosis At risk for sleep apnea Cardiomyopathy Chronic CHF Current smoker Gout High cholesterol History of [place] (myocardial infarction) Intermittent claudication Pacemaker PAD (peripheral [...] gallop, S1+ S2 No S3 or S4 [place].. Gastrointestinal: Soft, Non-tender, Non-distended, Normal bowel sounds. [...] Weekly PICC dressing changes. Fax orders to [phone], c Hold rosuvastatin while on daptomycin to decrease risk of rhabdomyolysis. 07/20 Discharge Medications (14) Active acetaminophen-HYDROcodone 325 mg-5 mg oral tablet 1 Tab, PRN, Oral, Q8H carvedilol 12.5 mg oral tablet 12.5 mg = 1 Tab, Oral, BID Florastor 250 mg oral capsule 250 mg = 1 Cap, Oral, BID fluticasone 50 mcg/inh nasal spray 2 Jayess, PRN, Nasal, Daily folic acid 1 mg [...] Oral, Daily Rocephin 2 Gram, IV Piggyback, R32EOjs topiramate 25 mg oral tablet 25 mg [...] on filedocumented in this encounter Care Teams Rubber Process Hand Relationship Specialty Start Date End Date Linh Doty, DO [address] [facility] [address] [place] [address] PCP - General Family Medicine 11/04/22 Lizzie Alves PA-C [address] [place] [address], [email or web address] [address] [place] [address] Hospitalist Cardiology 05/27/23 Kaushik Mariscal MD 1401 [facility] [address] [place] [address] Systems Planner Electrophysiology 11/18/23 documented as of this encounter
--- OUTSIDE RECORDS SUMMARY | 2024-09-28 11:07 | XMS_ITS | Encounter Summary ---
Author Organization [employer] ([place], [place], [place], [place]) Address [address] [place] [address] Care Team Providers Care Necktie Operator Pockets And Pieces Name Role Phone Lalitha Linh Delilah DAVIS Primary Care Provider [phone] Lizzie Alves PA-C Unavailable [phone] Dion Mariscal MD Unavailable Encounter Details Date Type Department Care Team (Late st Contact Info) Description 07/22/2021 Transcribed Document [facility] [place] [place] Family Medicine [address] [place] [address] ProviderChad MD [address] [place] [address] Social History Tobacco Use Types Packs/Day [...] 07/22/2021 9:42 AM CDT Patient: GAGAN MENDOZA [facility]: [id number] Age: 55 years Sex: Female : 1965 [...] mg, 8 mL, 116 mL/Hr, IV Piggyback, L53GEjv DuoNeb 0.5 mg-2.5 mg/3 mL inhalation solution: 3 mL, Nebulized Inhalation, Q8H Florastor: 250 mg, Oral, BID Lasix: 20 mg, Oral, Daily MiraLax: 17 Gram, Oral, Daily, PRN: Constipation Normal Saline Flush: 10 mL, IntraCATHeter, Q12H Rocephin: 2 Gram, 100 mL/Hr, IV Piggyback, W50FNos Roxicodone: 5 mg, Oral, Q4H, PRN: Pain [...] 0 Refill(s) Rocephin: 2 Gram, IV Piggyback, U49HNmi, 0 Refill(s) Vitamin D2 1.25 mg (50,000 intl units) oral capsule: 1 Cap, Oral, Weekly, 0 Refill(s) acetaminophen-HYDROcodone 325 mg-5 mg oral tablet: 1 Tab, Oral, Q8H, PRN: for pain, 0 Refill(s) carvedilol 12.5 mg oral tablet: 1 Tab, Oral, BID, 180 Tab, 0 Refill(s) fluticasone 50 mcg/inh nasal spray: 2 [place], Nasal, Daily, PRN: Nasal Congestion, 16 Gram, [...] BID fluticasone 50 mcg/inh nasal spray 2 [place], PRN, Nasal, Daily folic acid 1 mg [...] Oral, Daily Rocephin 2 Gram, IV Piggyback, W51TZnm topiramate 25 mg oral tablet 25 mg [...] Oral, BID cefTRIAXone 2 Gram, IV Piggyback, S03HNrz DAPTOmycin + NaCl 0.9% 50 mL 400 mg 8 mL, IV Piggyback, Z56RKvd ergocalciferol 50,000 unit cap 50,000 Units 1 [...] All Problems High cholesterol / SNOMED CT 39376917 / Confirmed PAD (peripheral artery disease) / SNOMED CT 6165743657 / Confirmed Chronic CHF / SNOMED CT 553658625 / Confirmed Current smoker / SNOMED CT 741258939 / Confirmed Arteriosclerosis / SNOMED CT 908534155 / Confirmed Intermittent claudication / SNOMED CT 577742551 / Confirmed Cardiomyopathy / SNOMED CT 353308788 / Confirmed History of [place] (myocardial infarction) / SNOMED CT 9524063955 / Confirmed Pacemaker / SNOMED CT 3781381744 / Confirmed Stented coronary artery / SNOMED CT 7049261358 / Confirmed Gout / SNOMED CT 492115011 / Confirmed At risk for sleep apnea / IMO 73945295 / Confirmed Resolved: History of ventricular tachycardia / SNOMED CT 4772834207 ICD placed in past for arrythmia. Canceled: HTN (hypertension) / SNOMED CT 9423852144 Canceled: COPD (chronic obstructive pulmonary disease) / SNOMED CT 95073349 Canceled: At risk for sleep apnea / IMO 19816201 Canceled: History of ischemic cardiomyopathy / SNOMED CT 696480748 Canceled: Abdominal aortic stenosis / SNOMED CT 669683218 Canceled: Shortness of breath / SNOMED CT 621892848, Active Problems (12) Arteriosclerosis At risk for [...] Normal range of motion. Integumentary: Warm, Dry, [place]. PPM site stable. Bruising around site but [...] from clinic to be admitted by [facility] physician group for IV antibiotics. Will request blood cultures, consult ID, further plans to follow. documented in this encounter Plan of Treatment Not on file documented as of this encounter Visit Diagnoses Not on filedocumented in this encounter Care Teams Necktie Operator Pockets And Pieces Relationship Specialty Start Date End Date Linh Doty, 8 [facility] [address] [place] [address] PCP - General Family Medicine 11/04/22 Lizzie Alves PA-C [address] [facility], [facility] [address] [place] [address] Hospitalist Cardiology 05/27/23 Dion Mariscal MD [address] [facility] [address] [place] [address] Pest Control Service Representative Electrophysiology 11/18/23 documented as of this encounter
--- OUTSIDE RECORDS SUMMARY | 2024-09-28 11:07 | XMS_ITS | Clinical Summary ---
Author Organization [facility] Address [address] [place] [address] Care Team Providers Care Muff Winder Name Role Phone Felicitas Melara APRN Primary Care Provider [phone] Allergies No known active allergies Medications albuterol [...] [facility] Respiratory [address] [facility], 2nd [place] [id number] Kia Humphries GC Encounter for nonprocreative genetic counseling (Primary Dx) 07/13/2024 Travel 07/06/2024 Telephone [facility] Genetic Counseling [address] [facility] 1st [place] [address] Kia Humphries GC Genetic Counseling Intake from [...] Questionnaire-2 Score 0 05/30/2024 [facility] Occupat ional Health - Occupational Stress [...] 2:20 PM EDT Office Visit [facility] [address] [place] [id number] Natalia Alves MD [address] [address] 12/08/2024 3:00 PM EDT Office Visit Medical Office Building Surgical Special[facility] [address] [facility], [address] [place] [address] Amish Escobedo MD [address] [facility] [address] [place] [address] Health Maintenance Due Date Last Done Comments [facility]-HIV Screening 1964 [facility]-Hepatitis C Screening 1964 [facility]-Medicare Annual Wellness (AWV) 1964 [facility]-/Child/Adol SDOH Screenings 1964 [facility]- SDOH Screenings 1982 [facility]-Adult SDOH Screenings 1982 [facility]-Pneumococcal Vaccine: 50 + Years (1 of 2 - PCV) 07/28/1983 [facility]-Pap Smear 1985 [facility]-Cervical Cancer Screening 1994 [facility]-HPV/Cotest 1994 CT Colonography 2009 Colonoscopy 2009 FIT-DNA 2009 FIT 2009 FOBT 2009 Sigmoidoscopy 2009 [facility]-Colorectal Cancer Screening 2009 [facility]-Breast Cancer Screening 2014 [facility]-Zoster Vaccines (2 of 2) 04/23/2020 02/27/2020 [id number] Vaccine (3 - 2023- season) 2023 12/22/2020, [...] Health Maintenance Insurance [employer] Care Teams Muff Winder Relationship Specialty Start Date End Date Felicitas Melara APRN [address] [place] [address] PCP - General 01/29/24
--- OUTSIDE RECORDS SUMMARY | 2024-09-28 11:07 | XMS_ITS | Encounter Summary ---
Author Organization [employer] ([place], [place], [place], [place]) Address [address] [place] [address] Care Team Providers Care Web Services Developer Name Role Phone Lalitha Linhkarthikeyan Mazariegos DO Primary Care Provider [phone] Lizzie Alves PA-C Unavailable [phone] Kaushik Mariscal MD Unavailable Encounter Details Date Type Department Care Team (Late st Contact Info) Description 07/02/2021 Transcribed Document [facility] Family Medicine [address] [place] [address] ProviderChad MD [address] [place] [address] Social History Tobacco Use Types Packs/Day [...] Keep items that you use often in ewss-qk-bqgoy places. Lower the shelves around your home [...] the way. ??? Do not use floor kiswahili or wax that makes floors slippery. What [...] Control and Prevention, STEADI: www.cdc.gov ??? National [place] on Aging: www.delia.nih.gov Contact a doctor if: [...] provider. Document Revised: 08/29/2020 Document Reviewed: 08/29/2020 ElseAleth Patient Education ? 2020 [employer] ENT Sleep Apnea Sleep apnea affects [...] ask your doctor. General instructions ??? Take jguz-lhv-ggcybqu and prescription medicines only as told by [...] provider. Document Revised: 11/12/2018 Document Reviewed: 09/21/2018 [employer] Patient Education ? 2020 Elsevier Inc. Procedures [...] these instructions at home: Medicines ??? Take qnfl-dwh-puptvic and prescription medicines only as told by [...] and water are not available, use hand camp attendant. ? Change your dressing as told by [...] your chest for several days. ??? Take dkjz-chw-rfzdhon and prescription medicines only as told by [...] provider. Document Revised: 12/27/2018 Document Reviewed: 12/27/2018 [employer] Patient Education ? 2020 DXY. documented in this encounter Plan of Treatment Not on file documented as of this encounter Visit Diagnoses Not on filedocumented in this encounter Care Teams Web Services Developer Relationship Specialty Start Date End Date Linh Doty, DO [address] [facility] [address] [place] [address] PCP - General Family Medicine 11/04/22 Lizzie Alves PA-C 1401 [facility], [facility] [address] [place] [address] Hospitalist Cardiology 05/27/23 Kaushik Mariscal MD 1401 [facility] [address] [place] [address] Ribbon Sweatband Operator Electrophysiology 11/18/23 documented as of this encounter
--- OUTSIDE RECORDS SUMMARY | 2024-09-28 11:07 | XMS_ITS | Encounter Summary ---
Author Organization [employer] ([place], [place], [place], [place]) Address [address] [place] [address] Care Team Providers Care Cut Off Tender Glass Name Role Phone Lalitha Linhkarthikeyan Mazariegos DO Primary Care Provider [phone] Lizzie Alves PA-C Unavailable [phone] Dion Mariscal MD Unavailable Encounter Details Date Type Department Care Team (Late st Contact Info) Description 07/22/2021 Transcribed Document [facility] Family Medicine [address] [place] [address] ProviderChad MD [address] [place] [address] Social History Tobacco Use Types Packs/Day [...] 3 mL, Nebulized Inhalation , Q8H ergocalciferol, 58225 Units= 1 Cap, Oral, Weekly Florastor, 250 [...] Push, Q4H, PRN Electronically signed by Rekha, [facility] Conversion Knife Changer Cerner at 05/27/2022 9:03 PM CDT documented in this encounter Plan of Treatment Not on file documented as of this encounter Visit Diagnoses Not on filedocumented in this encounter Care Teams Cut Off Tender Glass Relationship Specialty Start Date End Date Linh Doty DO 8 [facility] [address] [place] [address] PCP - General Family Medicine 11/04/22 Lizzie Alves PA-C [address] [place] [address], [facility] [address] [place] [address] Hospitalist Cardiology 05/27/23 Dion Mariscal MD 1401 [facility] [address] [place] [address] Sewer Separation Designer Electrophysiology 11/18/23 documented as of this encounter
--- OUTSIDE RECORDS SUMMARY | 2024-09-28 11:07 | XMS_ITS | Encounter Summary ---
Author Organization [employer] ([place], [place], [place], [place]) Address [address] [place] [address] Care Team Providers Care Heat Treatment Technician Name Role Phone Lalitha Linhkarthikeyan Mazariegos DO Primary Care Provider [phone] Lizzie Alves PA-C Unavailable [phone] Kaushik Mariscal MD Unavailable Encounter Details Date Type Department Care Team (Late st Contact Info) Description 07/21/2021 Transcribed Document [facility] Family Medicine [address] [place] [address] ProviderChad MD [address] [place] [address] Social History Tobacco Use Types Packs/Day [...] Historical ProviderMD - 07/21/2021 2:00 AM CDT Yield Engineer Details Entered On: 07/21/2021 1:14 EDT Performed On: 07/21/2021 2:00 EDT by ELDER WILSON RN Order Details Patient Needs Meds Crushed/Liquid : No ELDER WILSON RN - 07/21/2021 1:14 EDT Electronically signed by Rekha [facility] Conversion Brushing Machine Operator Cerner at 05/27/2022 9:04 PM CDT documented in this encounter Plan of Treatment Not on file documented as of this encounter Visit Diagnoses Not on filedocumented in this encounter Care Teams Heat Treatment Technician Relationship Specialty Start Date End Date Linh Doty, 8 [facility] [address] [place] [address] PCP - General Family Medicine 11/04/22 Lizzie Alves PA-C 14[address] [facility], [facility] [address] [place] [address] Hospitalist Cardiology 05/27/23 Kaushik Mariscal MD 1401 [facility] [address] [place] [address] Set Making Machine Operator Electrophysiology 11/18/23 documented as of this encounter
--- OUTSIDE RECORDS SUMMARY | 2024-09-28 11:07 | XMS_ITS | Encounter Summary ---
Author Organization [employer] ([place], [place], [place], [place]) Address [address] [place] [address] Care Team Providers Care Beehive Kiln Supervisor Name Role Phone Lalitha Ilnhkarthikeyan Mazariegos DO Primary Care Provider Lizzie Alves PA-C Unavailable [phone] Kaushik Mariscal MD Unavailable Encounter Details Date Type Department Care Team (Late st Contact Info) Description 07/19/2021 Transcribed Document [facility] Radiology [address] [phone] Yanick Torres MD [address] [place] [address] [place] [address] Social History Tobacco Use Types Packs/Day Years [...] mg, 8 mL, 116 mL/Hr, IV Piggyback, [id number] Florastor: 250 mg, Oral, BID Lasix: 20 mg, Oral, Daily MiraLax: 17 Gram, Oral, Daily, PRN: Constipation Normal Saline Flush: 10 mL, IntraCATHeter, Q12H Rocephin: 2 Gram, 100 mL/Hr, IV Piggyback, [id number] Roxicodone: 5 mg, Oral, Q4H, PRN: Pain [...] Refill(s) fluticasone 50 mcg/inh nasal spray: 2 [place], Nasal, Daily, PRN: Nasal Congestion, 16 Gram, [...] BID fluticasone 50 mcg/inh nasal spray 2 [place], PRN, Nasal, Daily folic acid 1 mg [...] Oral, BID cefTRIAXone 2 Gram, IV Piggyback, [id number] DAPTOmycin + NaCl 0.9% 50 mL 400 mg 8 mL, IV Piggyback, K49CHcq ergocalciferol 50,000 unit cap 50,000 Units 1 [...] At risk for sleep apnea / IMO 65941039 / Confirmed High cholesterol / SNOMED CT 19138889 / Confirmed Canceled: At risk for sleep apnea / IMO 74413573 Canceled: COPD (chronic obstructive pulmonary disease) / SNOMED CT 39893906 Canceled: HTN (hypertension) / SNOMED CT 0075275000, Active Problems (12) Arteriosclerosis At risk for [...] gallop, S1+ S2 No S3 or S4 [place].. Gastrointestinal: Soft, Non-tender, Non-distended, Normal bowel sounds. [...] Weekly PICC dressing changes. Fax orders to [id number], marivel Hold rosuvastatin while on daptomycin to decrease risk of rhabdomyolysis. 07/20 documented in this encounter Plan of Treatment Not on file documented as of this encounter Visit Diagnoses Not on filedocumented in this encounter Care Teams Beehive Kiln Supervisor Relationship Specialty Start Date End Date Linh Doty, 8 [facility] [address] [place] [address] PCP - General Family Medicine 11/04/22 Lizzie Alves PA-C [address] [facility], [facility] [address] [place] [address] Hospitalist Cardiology 05/27/23 Kaushik Mariscal MD 1401 [facility] [address] [place] [address] Air Intelligence Specialist Electrophysiology 11/18/23 documented as of this encounter
--- OUTSIDE RECORDS SUMMARY | 2024-09-28 11:07 | XMS_ITS | Encounter Summary ---
Author Organization [email or web address] ([place], [place], [place], [place]) Address [address] [place] [address] Care Team Providers Care Stripping Shovel Operator Name Role Phone Lalitha Linhkarthikeyan Mazariegos DO Primary Care Provider [phone] Lizzie Alves PA-C Unavailable [phone] Kaushik Mariscal MD Unavailable Encounter Details Date Type Department Care Team (Late st Contact Info) Description 07/22/2021 Transcribed Document [facility] Family Medicine [address] [place] [address] ProviderChad MD [address] [place] [address] Social History Tobacco Use Types [...] Electronically signed by Alberto Da Silva Conversion Virtual Reality Specialist Cerner at 05/27/2022 9:15 PM CDT documented in this encounter Plan of Treatment Not on file documented as of this encounter Visit Diagnoses Not on filedocumented in this encounter Care Teams Stripping Shovel Operator Relationship Specialty Start Date End Date Linh Doty, 8 [facility] [address] [place] [address] PCP - General Family Medicine 11/04/22 Lizzie Alves PA-C 1401 [facility], [facility] [address] [place] [address] Hospitalist Cardiology 05/27/23 Kaushik Mariscal MD 1401 [facility] [address] [place] [address] Bakery Machine Mechanic Supervisor Electrophysiology 11/18/23 documented as of this encounter
--- OUTSIDE RECORDS SUMMARY | 2024-09-28 11:07 | XMS_ITS | Encounter Summary ---
Author Organization [employer] ([place], [place], [place], [place]) Address [address] [place] [address] Care Team Providers Care Cosmetology Teacher Name Role Phone Lalitha Linh Delilah DAVIS Primary Care Provider Lizzie Alves PA-C Unavailable [phone] Kaushik Mariscal MD Unavailable Encounter Details Date Type Department Care Team (Late st Contact Info) Description 07/19/2021 Transcribed Document [facility] Family Medicine [address] [place] [address] ProviderChad MD [address] [place] [address] Social History Tobacco Use Types Packs/Day Years Used Date Smoking Tobacco: Never Assessed Family and Community Support Answer Geremias e Recorded Help with Day to Day Activities Not on file 02/27/2023 Feeling Lonely or Isolated Not on file 02/27 Educational Attainment Answer Date Menedz rded Speak language other than Senegalese at [...] Yes Central Line Insertion Facility : [facility] Central Line Insertion Start Date/Time : 07/19/2021 9:02 EDT Central Catheter Type : Power injection PICC Central Line Lot Number : [id number] Central Line Vessel Cannulated : Basilic vein [...] Name : Yvette Villagomez RN Broughton, Ruby, SARAH - 07/19/2021 9:24 EDT Electronically signed by Rekha [facility] Conversion Marine Cargo Specialist Cerner at 05/27/2022 9:12 PM CDT documented in this encounter Plan of Treatment Not on file documented as of this encounter Visit Diagnoses Not on filedocumented in this encounter Care Teams Cosmetology Teacher Relationship Specialty Start Date End Date Linh Doty DO 8 [facility] [address] [place] [address] PCP - General Family Medicine 11/04/22 Lizzie Alves PA-C 1401 [facility], [facility] [address] [place] [address] Hospitalist Cardiology 05/27/23 Kaushik Mariscal MD 1401 [facility] [address] [place] [address] Four Slide Machine Setter Electrophysiology 11/18/23 documented as of this encounter
--- OUTSIDE RECORDS SUMMARY | 2024-09-28 11:07 | XMS_ITS | Encounter Summary ---
Author Organization [employer] ([place], [place], [place], [place]) Address [address] [place] [address] Care Team Providers Care Wildland Firefighter Name Role Phone Lalitha Linhkarthikeyan Mazariegos DO Primary Care Provider Lizzie Alves PA-C Unavailable [phone] Kaushik Mariscal MD Unavailable Encounter Details Date Type Department Care Team (Late st Contact Info) Description 07/20/[address] [facility] Radiology [address] [phone] Yanick Torres MD [address] [place] [address] [place] [address] Social History Tobacco Use Types Packs/Day Years [...] mg, 8 mL, 116 mL/Hr, IV Piggyback, [id number] Florastor: 250 mg, Oral, BID Lasix: 20 mg, Oral, Daily MiraLax: 17 Gram, Oral, Daily, PRN: Constipation Normal Saline Flush: 10 mL, IntraCATHeter, Q12H Rocephin: 2 Gram, 100 mL/Hr, IV Piggyback, [id number] Roxicodone: 5 mg, Oral, Q4H, PRN: Pain [...] 0 Refill(s) Rocephin: 2 Gram, IV Piggyback, D87KIow, 0 Refill(s) Vitamin D2 1.25 mg (50,000 intl units) oral capsule: 1 Cap, Oral, Weekly, 0 Refill(s) acetaminophen-HYDROcodone 325 mg-5 mg oral tablet: 1 Tab, Oral, Q8H, PRN: for pain, 0 Refill(s) carvedilol 12.5 mg oral tablet: 1 Tab, Oral, BID, 180 Tab, 0 Refill(s) fluticasone 50 mcg/inh nasal spray: 2 [place], Nasal, Daily, PRN: Nasal Congestion, 16 Gram, [...] BID fluticasone 50 mcg/inh nasal spray 2 [place], PRN, Nasal, Daily folic acid 1 mg [...] Oral, Daily Rocephin 2 Gram, IV Piggyback, T60ZLba topiramate 25 mg oral tablet 25 mg [...] Oral, BID cefTRIAXone 2 Gram, IV Piggyback, Z46NFph DAPTOmycin + NaCl 0.9% 50 mL 400 mg 8 mL, IV Piggyback, C35LIwz ergocalciferol 50,000 unit cap 50,000 Units 1 [...] At risk for sleep apnea / IMO 81879941 / Confirmed High cholesterol / SNOMED CT 27086222 / Confirmed Canceled: At risk for sleep apnea / IMO 31097085 Canceled: COPD (chronic obstructive pulmonary disease) / SNOMED CT 29960849 Canceled: HTN (hypertension) / SNOMED CT 9758823628, Active Problems (12) Arteriosclerosis At risk for sleep apnea Cardiomyopathy Chronic CHF Current smoker Gout High cholesterol History of [place] (myocardial infarction) Intermittent claudication Pacemaker PAD (peripheral [...] gallop, S1+ S2 No S3 or S4 [place].. Gastrointestinal: Soft, Non-tender, Non-distended, Normal bowel sounds. [...] Weekly PICC dressing changes. Fax orders to [id number], c Hold rosuvastatin while on daptomycin to [...] on filedocumented in this encounter Care Teams Wildland Firefighter Relationship Specialty Start Date End Date Linh Doty, DO 8 [facility] [address] [place] [address] PCP - General Family Medicine 11/04/22 Lizzie Alves PA-C [address] [place] [address], [facility] [address] [place] [address] Hospitalist Cardiology 05/27/23 Kaushik Mariscal MD 1401 [facility] [address] [place] [address] Ldr Rn Electrophysiology 11/18/23 documented as of this encounter
--- OUTSIDE RECORDS SUMMARY | 2024-09-28 11:07 | XMS_ITS | Encounter Summary ---
Author Organization [employer] ([place], [place], [place], [place]) Address [address] [place] [address] Care Team Providers Care Subway Train Driver Name Role Phone Lalitha Linh Delilah DAVIS Primary Care Provider [phone] Lizzie Alves PA-C Unavailable [phone] Dion Mariscal MD Unavailable Encounter Details Date Type Department Care Team (Late st Contact Info) Description 07/19/2021 Transcribed Document [facility] [place] [address] [place] [address] ProviderChad MD 123 [place] [address] Social History Tobacco Use [...] AM CDT Patient: LENA MENDOZA [facility]: [id number] Age: 55 years Sex: Female : 1965 [...] mg, 8 mL, 116 mL/Hr, IV Piggyback, M14JNbi Florastor: 250 mg, Oral, BID Lasix: 20 mg, Oral, Daily MiraLax: 17 Gram, Oral, Daily, PRN: Constipation Normal Saline Flush: 10 mL, IntraCATHeter, Q12H Rocephin: 2 Gram, 100 mL/Hr, IV Piggyback, E98KFnu Roxicodone: 5 mg, Oral, Q4H, PRN: Pain [...] Refill(s) fluticasone 50 mcg/inh nasal spray: 2 [place], Nasal, Daily, PRN: Nasal Congestion, 16 Gram, [...] BID fluticasone 50 mcg/inh nasal spray 2 [place], PRN, Nasal, Daily folic acid 1 mg [...] Oral, BID cefTRIAXone 2 Gram, IV Piggyback, I65XEsy DAPTOmycin + NaCl 0.9% 50 mL 400 mg 8 mL, IV Piggyback, B29DZub ergocalciferol 50,000 unit cap 50,000 Units 1 [...] All Problems High cholesterol / SNOMED CT 36999643 / Confirmed PAD (peripheral artery disease) / SNOMED CT 9706536354 / Confirmed Chronic CHF / SNOMED CT 406539843 / Confirmed Current smoker / SNOMED CT 457556281 / Confirmed Arteriosclerosis / SNOMED CT 600165872 / Confirmed Intermittent claudication / SNOMED CT 115114058 / Confirmed Cardiomyopathy / SNOMED CT 366196038 / Confirmed History of [place] (myocardial infarction) / SNOMED CT 9676522462 / Confirmed Pacemaker / SNOMED CT 0266510969 / Confirmed Stented coronary artery / SNOMED CT 0165901034 / Confirmed Gout / SNOMED CT 322166266 / Confirmed At risk for sleep apnea / IMO 49750650 / Confirmed Resolved: History of ventricular tachycardia / SNOMED CT 1484003097 ICD placed in past for arrythmia. Canceled: HTN (hypertension) / SNOMED CT 1907819714 Canceled: COPD (chronic obstructive pulmonary disease) / SNOMED CT 32325306 Canceled: At risk for sleep apnea / IMO 09552044 Canceled: History of ischemic cardiomyopathy / SNOMED CT 413968562 Canceled: Abdominal aortic stenosis / SNOMED CT 777509900 Canceled: Shortness of breath / SNOMED CT 024284300, Active Problems (12) Arteriosclerosis At risk for [...] Normal range of motion. Integumentary: Warm, Dry, [place]. PPM site stable. Bruising around site but [...] on filedocumented in this encounter Care Teams Subway Train Driver Relationship Specialty Start Date End Date Linh Doty, DO 8 [facility] [address] [place] [address] PCP - General Family Medicine 11/04/22 Lizzie Alves PA-C [address] [place] [address] Hospitalist Cardiology 05/27/23 Dion Mariscal MD 1401 [facility] [address] [place], [place] [address] Plumbing Assembler Installer Electrophysiology 11/18/23 documented as of this encounter
--- OUTSIDE RECORDS SUMMARY | 2024-09-28 11:07 | XMS_ITS | Encounter Summary ---
Author Organization [employer] ([place], [place], [place], [place]) Address [address] [place] [address] Care Team Providers Care Factorer Name Role Phone Lalitha Linhkarthikeyan Mazariegos DO Primary Care Provider [phone] Lizzie Alves PA-C Unavailable [phone] Kaushik Mariscal MD Unavailable Encounter Details Date Type Department Care Team (Late st Contact Info) Description 07/18/2021 Transcribed Document [facility] Family Medicine [address] [place] [address] ProviderChad MD [address] [place] [address] Social History Tobacco Use Types [...] m - 1,000 mg, IV Piggyback, Inj, K32RRkm, infuse over 1 Hour(s) Cardiovascular carvedilol - [...] Normal strength, No tenderness. Integumentary: Warm, Dry, [place], No pallor, No rash, ICD site left [...] (MADELEINE 08) 3.5 (MADELEINE 07) , ACC: [id number] ORDER: Culture Wound and Stain DATE: 07/17/2021 08:34 SOURCE: Wound SITE: Chest L Reports Pre 07/18/2021 06:24 No growth GS 07/17/2021 14:09 No cells seen No organisms seen. == ACC: [id number] ORDER: Culture Blood DATE: 07/16/2021 12:39 SOURCE: Blood SITE: Reports Pre 07/17/2021 16:02 No growth at 1 day. Pre 07/17/2021 06:01 Culture less than 24 Hrs old == ACC: [id number] ORDER: Culture Blood DATE: 07/16/2021 12:39 SOURCE: Blood SITE: Reports Pre 07/17/2021 16:02 No growth at 1 day. Pre 07/17/2021 06:01 Culture less than 24 Hrs old == . Procedure Critical Care - Code Management Assessment: Radiology Results (Last 48 hours) [id number] -- 07/16/2021 14:13 CR Chest 1 Vw [...] Weekly PICC dressing changes. Fax orders to [id number], call [phone] with final arrangements. Hold rosuvastatin while on daptomycin to decrease risk of rhabdomyolysis. Arrange for follow-up with me in 1 week post discharge. documented in this encounter Plan of Treatment Not on file documented as of this encounter Visit Diagnoses Not on filedocumented in this encounter Care Teams Factorer Relationship Specialty Start Date End Date Linh Doty, DO 8 [facility] [address] [place] [address] PCP - General Family Medicine 11/04/22 Lizzie Alves PA-C 1401 [facility], [facility] [address] [place] [address] Hospitalist Cardiology 05/27/23 Kaushik Mariscal MD 1401 [facility] [address] [place] [address] Systems Test Technician Electrophysiology 11/18/23 documented as of this encounter
--- OUTSIDE RECORDS SUMMARY | 2024-09-28 11:07 | XMS_ITS | Encounter Summary ---
Author Organization [employer] ([place], [place], [place], [place]) Address [address] [place] [address] Care Team Providers Care Etl Software Engineer Name Role Phone Lalitha Linhkarthikeyan Mazariegos DO Primary Care Provider [phone] Lizzie Alves PA-C Unavailable [phone] Kaushik Mariscal MD Unavailable Encounter Details Date Type Department Care Team (Late st Contact Info) Description 07/22/2021 Transcribed Document [facility] Family Medicine [address] [place] [address] ProviderChad MD [address] [place] [address] Social History Tobacco Use Types Packs/Day [...] On: 07/22/2021 11:21 EDT by Mayra Vann Glass Or Mirror Inspector Rn Care Management Progress Note Discharge Arrangements [...] Attend Multidisciplinary Rounds? : Yes Mayra Vann Glass Or Mirror Inspector Rn - 07/22/2021 11:21 EDT Narrative Progress Note Narrative Progress Note : hd 6 elos 5 low rar patient has home abx arranged with [facility], planned for dc today however patient now to have AICD removed on 07/24 dcp- home ?iv abx after aicd removal Historical Progress Note : hd 3 elos 5 low rar [facility] to teach patient abx administration saturday 07/22. Per EP, plan to dc patient saturday 07/22. [place] for HH. Mayra Vann Glass Or Mirror Inspector Rn - 07/19/21 13:36:36 hd 2 low rar patient has orders from [facility] r/t iv abx and picc care but patient has no orders for PICC placement at this time, CM has reached out to [facility]. home abx orders sent to [facility]. patient will also need hh dcp- home with hh and iv abx Mayra Vann Glass Or Mirror Inspector Rn - 07/18/21 16:10:37 Mayra Vann Glass Or Mirror Inspector Rn - 07/22/2021 11:21 EDT documented in this encounter Plan of Treatment Not on file documented as of this encounter Visit Diagnoses Not on filedocumented in this encounter Care Teams Etl Software Engineer Relationship Specialty Start Date End Date Linh Doty, [address] [facility] [address] [place] [address] PCP - General Family Medicine 11/04/22 Lizzie Avles PA-C [address] [facility], [facility] [address] [address] Hospitalist Cardiology 05/27/23 Kaushik Mariscal MD [address] [facility] [address] [address] Learning Support Aide Electrophysiology 11/18/23 documented as of this encounter
--- OUTSIDE RECORDS SUMMARY | 2024-09-28 11:07 | XMS_ITS | Encounter Summary ---
Author Organization [employer] ([place], [place], [place], [place]) Address [address] [place] [address] Care Team Providers Care Commercial Sales Specialist Name Role Phone Lalitha Linhkarthikeyan Mazariegos DO Primary Care Provider [phone] Lizzie Alves PA-C Unavailable [phone] Kaushik Mariscal MD Unavailable Encounter Details Date Type Department Care Team (Late st Contact Info) Description 07/22/2021 Transcribed Document [facility] Family Medicine [address] [place] [address] ProviderChad MD [address] [place] [address] Social History Tobacco Use Types Packs/Day [...] Policy Numbers : Insurance 1 Health Plan: [employer] MANAGED MEDICARE Policy Number: [id number] Authorization Number: Insurance Primary Name : [place] MANAGED MEDICARE Policy Number: [id number] Authorization Status-Primary : Admit approved Reference Number-Primary : [id number] Authorization Number-Primary : [id number] Number of Days Authorized-Primary : 5 Day(s) Authorized Service Begin Date-Primary : 07/16/2021 EDT Authorized Service End Date-Primary : 07/21/2021 EDT Authorization Comments-Primary : 07/20-07/22 CLINICALS FAXED VIA [employer] Historical Authorization Comments-Primary : Comment 1: PER PORTAL IP APPROVED FOR 07/16 UP TO BUT NOT INCLUDING 07/22 (Khushi Jones Rn-Utilization Review 07/19/2021 13:56) Comment 2: UNDER REVIEW PER WC PORTAL (Khushi Jones Rn-Utilization Review 07/19/2021 09:22) Comment 3: CLINICAL FAXED VIA [employer] (Khuhsi Jones Rn-Utilization Review 07/17/2021 15:22) Comment 4: REF# PER GUME. CLINICAL FAXED VIA [employer] (Khushi Jones Rn-Utilization Review 07/17/2021 15:17) EZEKIEL PHILLIPS RN - 07/22/2021 16:49 EDT documented in this encounter Plan of Treatment Not on file documented as of this encounter Visit Diagnoses Not on filedocumented in this encounter Care Teams Commercial Sales Specialist Relationship Specialty Start Date End Date Linh Doty DO [address] [place] [address] PCP - General Family Medicine 11/04/22 Lizzie Alves PA-C [address], [facility] [address] [place] [address] Hospitalist Cardiology 05/27/23 Kaushik Mariscal MD [address] [facility] [address] [place], [place] [id number] Jumpbasting Machine Operator Electrophysiology 11/18/23 documented as of this encounter
--- OUTSIDE RECORDS SUMMARY | 2024-09-28 11:07 | XMS_ITS | Encounter Summary ---
Author Organization [employer] ([place], [place], [place], [place]) Address [address] [place] [address] Care Team Providers Care Recreation Facilities Supervisor Name Role Phone Lalitha Linhkarthikeyan Mazariegos DO Primary Care Provider [phone] Lizzie Alves PA-C Unavailable [phone] Kaushik Mariscal MD Unavailable Encounter Details Date Type Department Care Team (Late st Contact Info) Description 07/22/2021 Transcribed Document [facility] Family Medicine [address] [place] [address] ProviderChad MD [address] [place] [address] Social History Tobacco Use Types Packs/Day [...] On: 07/22/2021 15:33 EDT by Bonita Katz, Implant Coordinator Primary Insurance Authorization Authorization and Policy Numbers : Insurance 1 Health Plan: [employer] MANAGED MEDICARE Policy Number: [id number] Authorization Number: Insurance Primary Name : [facility] MANAGED MEDICARE Policy Number: [id number] Authorization Status-Primary : Admit approved Reference Number-Primary : [id number] Authorization Number-Primary : [id number] Number of Days Authorized-Primary : 5 Day(s) Authorized Service Begin Date-Primary : 07/16/2021 EDT Authorized Service End Date-Primary : 07/21/2021 EDT Historical Authorization Comments-Primary : Comment 1: PER PORTAL IP APPROVED FOR 07/16 UP TO BUT NOT INCLUDING 07/22 (Khushi Jones, Rn-Utilization Review 07/19/2021 13:56) Comment 2: UNDER REVIEW PER WC PORTAL (Khushi Jones, Rn-Utilization Review 07/19/2021 09:22) Comment 3: CLINICAL FAXED VIA [employer] (Khushi Jones, Rn-Utilization Review 07/17/2021 15:22) Comment 4: REF# PER GUME. CLINICAL FAXED VIA [employer] (Khushi Jones, Rn-Utilization Review 07/17/2021 15:17) Bonita Katz, Implant Coordinator - 07/22/2021 15:33 EDT Electronically signed by Rekha [place] Conversion Mechanical System Technician Cerner at 05/27/2022 9:22 PM CDT documented in this encounter Plan of Treatment Not on file documented as of this encounter Visit Diagnoses Not on filedocumented in this encounter Care Teams Recreation Facilities Supervisor Relationship Specialty Start Date End Date Linh Doty, DO [address] [place] [address] PCP - General Family Medicine 11/04/22 Lizzie Alves PA-C [address], [facility] [address] [place] [address] Hospitalist Cardiology 05/27/23 Kaushik Mariscal MD [address] [facility] [place] [address] Health Occupations Teacher Electrophysiology 11/18/23 documented as of this encounter
--- OUTSIDE RECORDS SUMMARY | 2024-09-28 11:07 | XMS_ITS | Encounter Summary ---
Author Organization [employer] ([place], [place], [place], [place]) Address [address] [place] [address] Care Team Providers Care Administrative Medical Director Name Role Phone Lalitha Linhkarthikeyan Mazariegos DO Primary Care Provider [phone] Lizzie Alves PA-C Unavailable [phone] Kaushik Mariscal MD Unavailable Encounter Details Date Type Department Care Team (Late st Contact Info) Description 07/22/2021 Transcribed Document [facility] Family Medicine [address] [place] [address] ProviderChad MD [address] [place] [address] Social History Tobacco Use Types Packs/Day [...] Historical ProviderMD - 07/22/2021 2:00 AM CDT Assistant Health Educator Details Entered On: 07/22/2021 3:29 EDT Performed On: 07/22/2021 2:00 EDT by Larissa Dubois RN-PATIENT CARE BEDSIDE NON-EXEMPT Order Details Patient Needs Meds Crushed/Liquid : No Larissa Dubois RN-PATIENT CARE BEDSIDE NON-EXEMPT - 07/22/2021 3:29 EDT Electronically signed by Rekha [facility] Conversion Sash Clamp Operator Cerner at 05/27/2022 9:17 PM CDT documented in this encounter Plan of Treatment Not on file documented as of this encounter Visit Diagnoses Not on filedocumented in this encounter Care Teams Administrative Medical Director Relationship Specialty Start Date End Date Linh Doty, 8 [facility] [address] [place] [address] PCP - General Family Medicine 11/04/22 Lizzie Alves PA-C [address] [place] [address], [facility] [address] [place] [address] Hospitalist Cardiology 05/27/23 Kaushik Mariscal MD [address] [facility] [address] [place] [address] Systems Analysis Manager Electrophysiology 11/18/23 documented as of this encounter
--- OUTSIDE RECORDS SUMMARY | 2024-09-28 11:07 | XMS_ITS | Encounter Summary ---
Author Organization [employer] ([place], [place], [place], [place]) Address [address] [place] [address] Care Team Providers Care Labor Mediator Name Role Phone Lalitha Linhkarthikeyan Mazariegos DO Primary Care Provider [phone] Lizzie Alves PA-C Unavailable [phone] Kaushik Mariscal MD Unavailable Encounter Details Date Type Department Care Team (Late st Contact Info) Description 11/23/2018 Transcribed Document [facility] [place] [address] ProviderChad MD [address] [place] [address] Social History [...] Electronically signed by Alberto Da Silva Conversion Dehydrogenation Converter Helper Cerner at 05/27/2022 9:11 PM CDT documented in this encounter Plan of Treatment Not on file documented as of this encounter Visit Diagnoses Not on filedocumented in this encounter Care Teams Labor Mediator Relationship Specialty Start Date End Date Linh Doty, 8 [facility] [address] [place] [address] PCP - General Family Medicine 11/04/22 Lizzie Alves PA-C [address] [place] [address], [facility] [address] [place] [address] Hospitalist Cardiology 05/27/23 Kaushik Mariscal MD [address] [facility] [address] [place] [address] Printing Pressman Electrophysiology 11/18/23 documented as of this encounter
--- OUTSIDE RECORDS SUMMARY | 2024-09-28 11:07 | XMS_ITS | Encounter Summary ---
Author Organization [employer] ([place], [place], [place], [place]) Address [address] [place] [address] Care Team Providers Care Ob Gyn Name Role Phone Lalitha Linhkarthikeyan Mazariegos DO Primary Care Provider [phone] Lizzie Alves PA-C Unavailable [phone] Kaushik Mariscal MD Unavailable Encounter Details Date Type Department Care Team (Late st Contact Info) Description 07/20/2021 Transcribed Document [facility] Family Medicine [address] [place] [address] ProviderChad MD [address] [place], [place] [...] with bloody drainage. Patient was admitted to on 07/16/2021. Post generator change, patient required [...] (Rocephin) - 2 Gram, IV Piggyback, Inj, [id number], infuse over 30 Minute(s), Routine DAPTOmycin + Sodium Chloride 0.9% intravenous solution 50 mL - 400 mg, IV Piggyback, Inj, [id number], infuse over 30 Minute(s), Routine Anticoagulant alteplase [...] No tenderness, No deformity. Integumentary: Warm, Dry, [place], No pallor, No rash, ICD site left [...] (JUL 08) 3.5 (JUL 07) , ACC: [id number] ORDER: Culture Wound and Stain DATE: 07/17/2021 08:34 SOURCE: Wound SITE: Chest L Reports Final 07/20/2021 07:46 No growth Pre 07/18/2021 06:24 No growth GS 07/17/2021 14:09 No cells seen No organisms seen. == [facility]: [id number] ORDER: Culture Blood DATE: 07/16/2021 12:39 SOURCE: Blood SITE: Reports Pre 07/19/2021 16:01 No growth at 3 days. Pre 07/18/2021 16:01 No growth at 2 days. Pre 07/17/2021 16:02 No growth at 1 day. Pre 07/17/2021 06:01 Culture less than 24 Hrs old == ACC: [id number] ORDER: Culture Blood DATE: 07/16/2021 12:39 SOURCE: [...] Weekly PICC dressing changes. Fax orders to [phone], call [phone] with final arrangements. Hold rosuvastatin while on daptomycin to decrease risk of rhabdomyolysis. Arrange for follow-up with me in 1 week post discharge. Electronically signed by Reyna Da Silva Conversion Home Economist Consumer Service Cerner at 05/27/2022 9:20 PM CDT documented in this encounter Plan of Treatment Not on file documented as of this encounter Visit Diagnoses Not on filedocumented in this encounter Care Teams Ob Gyn Relationship Specialty Start Date End Date Linh Doty, 8 [facility] [address] [place] [address] PCP - General Family Medicine 11/04/22 Lizzie Alves PA-C [address] [place] [address], [facility] [address] [place] [address] Hospitalist Cardiology 05/27/23 Kaushik Mariscal MD 14[address] [facility] [address] [place] [address] Modeling Instructor Electrophysiology 11/18/23 documented as of this encounter
--- OUTSIDE RECORDS SUMMARY | 2024-09-28 11:07 | XMS_ITS | Encounter Summary ---
Author Organization [employer] ([place], [place], [place], [place]) Address [address] [place] [address] Care Team Providers Care Luster Repairer Name Role Phone Lalitha Linh Delilah DAVIS Primary Care Provider [phone] Lizzie Alves PA-C Unavailable [phone] Kaushik Mariscal MD Unavailable Encounter Details Date Type Department Care Team (Late st Contact Info) Description 07/23/2021 Transcribed Document [facility] Family Medicine [address] [place] [address] ProviderChad MD [address] [place] [address] Social History Tobacco Use Types Packs/Day [...] 07/23/2021 4:57 EDT Electronically signed by Rekha [facility] Conversion Hoop Riveting Machine Operator Cerner at 05/27/2022 9:00 PM CDT documented in this encounter Plan of Treatment Not on file documented as of this encounter Visit Diagnoses Not on filedocumented in this encounter Care Teams Luster Repairer Relationship Specialty Start Date End Date Linh Doty, 8 [facility] [address] [place] [address] PCP - General Family Medicine 11/04/22 Lizzie Alves PA-C [address] [facility], [facility] [address] [place] [address] Hospitalist Cardiology 05/27/23 Kaushik Mariscal MD [address] [facility] [address] [place] [address] Photographer Still Electrophysiology 11/18/23 documented as of this encounter
--- OUTSIDE RECORDS SUMMARY | 2024-09-28 11:07 | XMS_ITS | Encounter Summary ---
Author Organization [employer] ([place], [place], [place], [place]) Address [address] [place] [address] Care Team Providers Care Director Ambulatory Name Role Phone Lalitha Linhkarthikeyan Mazariegos DO Primary Care Provider [phone] Lizzie Alves PA-C Unavailable [phone] Kaushik Mariscal MD Unavailable Encounter Details Date Type Department Care Team (Late st Contact Info) Description 07/21/2021 Transcribed Document [facility] Family Medicine [address] [place] [address] ProviderChad MD [address] [place] [address] Social History Tobacco Use Types Packs/Day Years Used Date Smoking Tobacco: Never Assessed Family and Community Support Answer Geremias e Recorded Help with Day to Day Activities Not on file 02/27/2023 Feeling Lonely or Isolated Not on file 02/27 Educational Attainment Answer Date Mendez rded Speak language other than Armenian at home Not on file 02/27/2023 Want [...] 07/21/2021 6:17 EDT Electronically signed by Rekha [facility] Conversion Party Plan Sales Consultant Cerner at 05/27/2022 9:21 PM CDT documented in this encounter Plan of Treatment Not on file documented as of this encounter Visit Diagnoses Not on filedocumented in this encounter Care Teams Director Ambulatory Relationship Specialty Start Date End Date Linh Doty, 8 [facility] [address] [place] [address] PCP - General Family Medicine 11/04/22 Lizzie Alves PA-C 1401 [facility], [facility] [address] [place] [address] Hospitalist Cardiology 05/27/23 Kaushik Mariscal MD [address] [facility] [address] [place] [address] Integrated Marketing Intern Electrophysiology 11/18/23 documented as of this encounter
--- OUTSIDE RECORDS SUMMARY | 2024-09-28 11:07 | XMS_ITS | Encounter Summary ---
Author Organization [employer] ([place], [place], [place], [place]) Address [address] [place] [address] Care Team Providers Care Community Health Promoter Name Role Phone Lalitha Linhkarthikeyan Mazariegos DO Primary Care Provider [phone] Lizzie Alves PA-C Unavailable [phone] Kaushik Mariscal MD Unavailable Encounter Details Date Type Department Care Team (Late st Contact Info) Description 07/22/2021 Transcribed Document [facility] [place] [address] [place] [address] ProviderChad MD [address] [place] [address] Social History Tobacco Use Types Packs/Day [...] 07/22/2021 7:47 EDT Electronically signed by Rekha [facility] Conversion Corrugator Operator Helper Cerner at 05/27/2022 9:08 PM CDT documented in this encounter Plan of Treatment Not on file documented as of this encounter Visit Diagnoses Not on filedocumented in this encounter Care Teams Community Health Promoter Relationship Specialty Start Date End Date Linh Doty, DO 8 [facility] [address] [place] [address] PCP - General Family Medicine 11/04/22 Lizzie Alves PA-C [address] [place] [address], [facility] [address] [place] [address] Hospitalist Cardiology 05/27/23 Kaushik Mariscal MD [address] [facility] [address] [place] [address] Director Of Flight Operations Electrophysiology 11/18/23 documented as of this encounter
--- OUTSIDE RECORDS SUMMARY | 2024-09-28 11:07 | XMS_ITS | Encounter Summary ---
Author Organization [employer] ([place], [place], [place], [place]) Address [address] [place] [address] Care Team Providers Care Business Administration Teacher Name Role Phone Lalitha Linh Delilah DAVIS Primary Care Provider [phone] Lizzie Alves PA-C Unavailable [phone] Kaushik Mariscal MD Unavailable Encounter Details Date Type Department Care Team (Late st Contact Info) Description 07/19/2021 Transcribed Document [facility] Family Medicine [address] [place] [address] ProviderChad MD [address] [place] [address] Social History Tobacco Use Types [...] On: 07/19/2021 13:35 EDT by Mayra Vann Hardware Installation Coordinator Rn Care Management Progress Note Discharge Arrangements [...] Attend Multidisciplinary Rounds? : Yes Mayra Vann Hardware Installation Coordinator Rn - 07/19/2021 13:35 EDT Narrative Progress Note Narrative Progress Note : hd 3 elos 5 low rar patient is set up with [employer], [employer] to teach patient abx administration saturday 07/22. [...] with hh and iv abx Mayra Vann Hardware Installation Coordinator Rn - 07/18/21 16:10:37 Mayra Vann Hardware Installation Coordinator Rn - 07/19/2021 13:35 EDT documented in this encounter Plan of Treatment Not on file documented as of this encounter Visit Diagnoses Not on filedocumented in this encounter Care Teams Business Administration Teacher Relationship Specialty Start Date End Date Linh Doty DO 8 [facility] [address] [place] [address] PCP - General Family Medicine 11/04/22 Lizzie Alves PA-C 1401 [facility], [facility] [address] [place] [address] Hospitalist Cardiology 05/27/23 Kaushik Mariscal MD 1401 [facility] [address] [place] [address] Vaccinator Electrophysiology 11/18/23 documented as of this encounter
--- OUTSIDE RECORDS SUMMARY | 2024-09-28 11:07 | XMS_ITS | Encounter Summary ---
Author Organization [employer] ([place], [place], [place], [place]) Address [address] [place] [address] Care Team Providers Care Licensed Guide Name Role Phone Lalitha Linh Delilah DAVIS Primary Care Provider Lizzie Alves PA-C Unavailable [phone] Kaushik Mariscal MD Unavailable Encounter Details Date Type Department Care Team (Late st Contact Info) Description 07/23/2021 Transcribed Document [facility] Family Medicine [address] [place] [address] ProviderChad MD [address] [place] [address] Social History Tobacco Use Types Packs/Day [...] 07/23/2021 18:55 EDT Electronically signed by Rekha [facility] Conversion Liquor Grinding Mill Operator Cerner at 05/27/2022 8:59 PM CDT documented in this encounter Plan of Treatment Not on file documented as of this encounter Visit Diagnoses Not on filedocumented in this encounter Care Teams Licensed Guide Relationship Specialty Start Date End Date Linh Doty, 8 [facility] [address] [place] [address] PCP - General Family Medicine 11/04/22 Lizzie Alves PA-C [address] [place] [address], [facility] [address] [place] [address] Hospitalist Cardiology 05/27/23 Kaushik Mariscal MD [address] [facility] [address] [place] [address] Driving Teacher Electrophysiology 11/18/23 documented as of this encounter
== END 2024-09-27 23:59 | disposition home or self-care (01) ==
LOC: LAB.DROPOF 09-28 10:51
PROVIDERS: PCP Nurse Practitioner Family; Visit Provider Nurse Practitioner Family
DX: E21.3 Hyperparathyroidism, unspecified (principal); G62.9 Polyneuropathy, unspecified
CPT/HCPCS: 80053; 82306; 83036; 83735; 83970; 84443

== ENCOUNTER 2024-11-24 07:11 | Outpatient (CLI) | payer MEDICARE, SELFPAY ==
--- OUTSIDE RECORDS SUMMARY | 2024-09-15 03:00 | XMS_ITS | Encounter Summary ---
Author Organization [employer] ([place], [place], [place], [place]) Address [address] [place] [address] Care Team Providers Care Control And Recovery Special Tactics Name Role Phone Lalitha Linh Delilah DAVIS Primary Care Provider [phone] Lizzie Alves PA-C Unavailable [phone] Kaushik Mariscal MD Unavailable Reason for Visit * Reason Comments Pacemaker /ICD Home Monitoring Encounter Details Date Type Department Care Team (Late st Contact Info) Description 09/15/2024 3:00 AM EDT Clinical Support [facility] Electrophysiology [address] [place] [address] Kaushik Mariscal MD [address] [facility] [address] [place] [address] Encounter for adjustment or management of cardiac [...] (HCC) documented in this encounter Care Teams Control And Recovery Special Tactics Relationship Specialty Start Date End Date Linh Doty, 8 [facility] [address] [place] [address] PCP - General Family Medicine 11/04/22 Lizzie Alves PA-C [address] [facility], [facility] [address] [place] [address] Hospitalist Cardiology 05/27/23 Kaushik Mariscal MD [address] [facility] [address] [place] [address] Cleaner Wall Electrophysiology 11/18/23 documented as of this encounter
--- OUTSIDE RECORDS SUMMARY | 2024-10-11 03:00 | XMS_ITS | Encounter Summary ---
Author Organization [employer] ([place], [place], [place], [place]) Address [address] [place] [address] Care Team Providers Care Toy Painter Name Role Phone Lalitha Linh Delilah DAVIS Primary Care Provider [phone] Lizzie Alves PA-C Unavailable [phone] Kaushik Mariscal MD Unavailable Reason for Visit * Reason Comments Pacemaker /ICD Home Monitoring Encounter Details Date Type Department Care Team (Late st Contact Info) Description 10/11/2024 3:00 AM EDT Clinical Support [facility] Electrophysiology [address] [place] [address] Kaushik Mariscal MD [address] [facility] [address] [place] [address] Encounter for adjustment or management of cardiac [...] (HCC) documented in this encounter Care Teams Toy Painter Relationship Specialty Start Date End Date Linh Doty, 8 [facility] [address] [place] [address] PCP - General Family Medicine 11/04/22 Lizzie Alves PA-C 1401 [facility], [facility] [address] [place] [address] Hospitalist Cardiology 05/27/23 Kaushik Mariscal MD [address] [facility] [address] [place] [address] Embossing Machine Operator Helper Electrophysiology 11/18/23 documented as of this encounter
--- OUTSIDE RECORDS SUMMARY | 2024-10-17 03:00 | XMS_ITS | Encounter Summary ---
Author Organization [employer] ([place], [place], [place], [place]) Address [address] [place] [address] Care Team Providers Care Judicial Law Clerk Name Role Phone Lalitha Linh Delilah DAVIS Primary Care Provider [phone] Lizzie Alves PA-C Unavailable [phone] Kaushik Mariscal MD Unavailable Reason for Visit * Reason Comments Pacemaker /ICD Home Monitoring Encounter Details Date Type Department Care Team (Late st Contact Info) Description 10/17/2024 3:00 AM EDT Clinical Support [facility] Electrophysiology [address] [place] [address] Kaushik Mariscal MD 1401 [facility] [address] [place] [address] Encounter for adjustment or management of cardiac [...] (HCC) documented in this encounter Care Teams Judicial Law Clerk Relationship Specialty Start Date End Date Linh Doty, 8 [facility] [address] [place] [address] PCP - General Family Medicine 11/04/22 Lizzie Alves PA-C 1401 [facility], [facility] [address] [place] [address] Hospitalist Cardiology 05/27/23 Kaushik Mariscal MD [address] [facility] [address] [place] [address] Gas Line Repairer Electrophysiology 11/18/23 documented as of this encounter
--- OUTSIDE RECORDS SUMMARY | 2024-11-17 03:00 | XMS_ITS | Encounter Summary ---
Author Organization [employer] ([place], [place], [place], [place]) Address [address] [place] [address] Care Team Providers Care Control System Computer Scientist Name Role Phone Lalitha Linh Delilah DAVIS Primary Care Provider [phone] Lizzie Alves PA-C Unavailable [phone] Kaushik Mariscal MD Unavailable Reason for Visit * Reason Comments Pacemaker /ICD Home Monitoring Encounter Details Date Type Department Care Team (Late st Contact Info) Description 11/17/2024 3:00 AM EDT Clinical Support [facility] Electrophysiology [address] [place] [address] Kaushik Mariscal MD 1401 [facility] [address] [place] [address] Encounter for adjustment or management of cardiac [...] documented in this encounter Care Teams Control System Computer Scientist Relationship Specialty Start Date End Date Linh Doty, 8 [facility] [address] [place] [address] PCP - General Family Medicine 11/04/22 Lizzie Alves PA-C 1401 [facility], [facility] [address] [place] [address] Hospitalist Cardiology 05/27/23 Kaushik Mariscal MD [address] [facility] [address] [place] [address] Corporate General Manager Electrophysiology 11/18/23 documented as of this encounter
--- OUTSIDE RECORDS SUMMARY | 2024-11-24 07:13 | XMS_ITS | Clinical Summary ---
Author Organization [facility] Address [address] [place] [id number] Care Team Providers Care Senior Director Of Global [employer] Technology Solutions Name Role Phone Provider, No Known Primary [...] 1964 MAMMOGRAM 2004 COLON CANCER SCREENING 5 YEAR SIGMOIDOSCOPY [address] COLONOGRAPHY 2009 FECAL OCCULT BLOOD TEST 2009 FIT Testing (1 year) 2009 Pneumococcal Vaccine 50+ (1 of 1 - PCV) 2014 ZOSTER VACCINE (2 of 2) 04/23/2020 02/27/2020 COLOGUARD 01/01/2023 01/02/2020 COLORECTAL CANCER SCREENING 01/01/2023 INFLUENZA VACCINE 09/09/2024 TDAP/TD VACCINES (2 - Td or Tdap) 01/29/2031 021 Insurance [facility] MEDICARE REPLACEMENT Care Teams Senior Director Of Global [employer] Technology Solutions Relationship Specialty Start Date End Date Provider, No Known [facility] [place] [address] PCP - General 07/31/21
--- OUTSIDE RECORDS SUMMARY | 2024-11-24 07:13 | XMS_ITS | Data Portability ---
Author Organization [place] [facility] & JAMES Faria ADMIN Address [address] [place] [address] Care Team Providers Care Director Child Abuse Therapy Name Role Phone PHONG WILLIAM Referring Provider [...] __ __ __ __ __ _ GISELLE: [id number] I have reviewed patient's GISELLE report prior [...] the risk of withdrawal and the differences. [email or web address] Not available 08/26/2022 09:40:08 09/29/2022 09/29/2022 Mrs. [...] __ __ __ __ __ _ GISELLE: [id number] I have reviewed patient's GISELLE report prior [...] the risk of withdrawal and the differences. [email or web address] Not available 09/29/2022 16:19:40 11/24/2022 11/24/2022 Mrs. [...] reports she [facility] which she has been unable to do for a long time. She is complaining of thoracic and lumbar pain with BLE radicular pain to the calf. No trauma or injury. 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 It is worse with standing and walking, [...] __ __ __ __ __ _ GISELLE: [id number] I have reviewed patient's GISELLE report prior [...] the risk of withdrawal and the differences. [email or web address] Not available 11/24/2022 16:34:20 01/12/2023 01/12/2023 Telehealth visit is being conducted from [facility] [place] [address]. This was a real-time clinical encounter over [[email or web address] ]. Consent was obtained to engage in [...] __ __ __ __ __ _ GISELLE: [id number] I have reviewed patient's GISELLE report prior [...] Plavix managed by cardiology (Dr. Mariscal at [place]). The patient has a history of COPD [...] __ __ __ __ __ _ GISELLE: [id number] I have reviewed patient's GISELLE report prior [...] the risk of withdrawal and the differences. [email or web address] Not available 03/30/2023 15:36:52 Plan of Treatment Reminders Order Date Submit Date Provider Last Modified By Organization Details Last Modified Time Details Appointments None recorded. Lab drug screen, urine 2023 024 [email or web address] [facility] [address] [place] [address] Dr [place], [place], [address], 4 12:12:09 Referral None recorded. Procedures injection , single, diagnosti c or therapeut ic substance , lumbar, sacral (PROC) - 75077, LEI L5-S1 2023 024 [email or web address] Justin Andres, [address], [address], 4 09:24:03 epidural steroid injection , cervical interlami yg (PROC) - 30098, C7-T1 2022 023 [email or web address] Not available 3 08:27:26 epidural steroid injection , cervical interlami yg (PROC) - 96286, C7-T1 2022 023 Not available 3 13:39:39 Surgeries None recorded. Imaging XR, lumbar spine, 2 view 2022 023 [facility] (Scheduling), [address] [place], [address], 3 16:10:33 XR, thoracic spine, 2 view 2022 023 [facility] (Scheduling), [address] [place], [address], 3 11:03:12 Medication Orders gabapenti n 600 mg tablet 2023 024 [email or web address], [address] [place] [address] [address] [place] [place], [id number], 4 16:34:26 hydrocodo ne 5 mg-acetam inophen 325 mg tablet 2023 024 [facility], [address] [place] [address] [address] [place], [id number], 4 15:59:57 hydrocodo ne 5 mg-acetam inophen 325 mg tablet 2022 023 [facility], [address] [place] [address] [address], [place], [id number], 3 16:06:54 hydrocodo ne 5 mg-acetam inophen 325 mg tablet 2022 023 [facility], [address] [place] [address] [address], [place], [id number], 4 16:06:54 gabapenti n 600 mg tablet 2022 023 [facility], [address] [place] [address] [address], [place], [id number], 4 16:36:42 hydrocodo ne 5 mg-acetam inophen 325 mg tablet 2022 023 [facility], [address] [place] [address] [address] [place], [id number], 3 13:07:24 hydrocodo ne 5 mg-acetam inophen 325 mg tablet 2022 023 [facility], [address] [place] [address] [address], [place], [id number], 3 16:15:43 hydrocodo ne 5 mg-acetam inophen 325 mg tablet 2022 023 [facility], [address] [place] [address] [address] [place], [id number], 3 16:35:06 hydrocodo ne 5 mg-acetam inophen 325 mg tablet 2022 023 [facility], [address] [place] [address] [address] [place], [id number], 14:33:16 gabapenti n 600 mg tablet 2022 023 [facility], [address] [place] [address] [address], [id number], 16:58:13 Patient TargetsNo targets recorded. Patient InstructionsNo instructions recorded. Reason for Referral None Reported. Results Created Date Observation Date Name Description Value Unit Range Abnormal Flag Note LastModifiedBy Organization Detail LastModifiedTime 03/30/1903/30/2023 drug scree n, urine Amphetamines negati ve Not Available [facility] [address] [place] [address] [place], [address], 03/30/2023 15:15:37 03/30/19 24 03/30/2023 drug scree n, urine Barbiturates negati ve Not Available [facility] [address] [place] [address] [place], [address], 03/30/2023 15:15:37 03/30/19 24 03/30/2023 drug scree n, urine Buprenorphin e negati ve Not Available [facility] [address] [place] [address] [place], [address], 03/30/2023 15:15:37 03/30/19 24 03/30/2023 drug scree n, urine Benzodiazepi dion negati ve Not Available [facility] [address] [place] [address] [place], [address], 03/30/2023 15:15:37 03/30/19 24 03/30/2023 drug scree n, urine Cocaine negati ve Not Available [facility] [address] [place] [address] [place], [address], 03/30/2023 15:15:37 03/30/19 24 03/30/2023 drug scree n, urine Methamphetam ine negati ve Not Available [facility] [address] [place] [address] Dr Franks, [place], [address], 03/30/2023 15:15:37 03/30/19 24 03/30/2023 drug scree n, urine Ecstasy negati ve Not Available [facility] [address] [place] [address] [place], [address], 03/30/2023 15:15:37 03/30/19 24 03/30/2023 drug scree n, urine Methadone negati ve Not Available [facility] [address] [place] [address] [place], [address], 03/30/2023 15:15:37 03/30/19 24 03/30/2023 drug scree n, urine Morphine/ Opiates negati ve Not Available [facility] [address] [place] [address] [place], [address], 03/30/2023 15:15:37 03/30/19 24 03/30/2023 drug scree n, urine Phencyclidin e negati ve Not Available [facility] [address] [place] [address] [place], [address], 03/30/2023 15:15:37 03/30/19 24 03/30/2023 drug scree n, urine Oxycodone negati ve Not Available [facility] [address] [place] [address] [place], [address], 03/30/2023 15:15:37 03/30/19 24 03/30/2023 drug scree n, urine Marijuana negati ve Not Available [facility] [address] [place] [address] [place], [address], 03/30/2023 15:15:37 Result Notes None recorded. Problems Name Problem SNOMED Code Status Onset Date Resolution Date Notes Provider Name and Address Organization Details Recorded Time Bilateral osteoarthr itis of knees 1506641333694 07 Active 2021 Not Available [facility] 4 19:02:55 Pain of bilateral knee regions 6801248489716 02 Active 2021 Not Available [facility] 4 19:02:55 Low back pain 324572933 Active 2021 Not Available [facility] 4 19:02:55 Chronic obstructiv e pulmonary disease 68027659 Active 2021 Not Available [facility] 4 19:02:55 Nicotine dependence 29463920 Active 2021 Not Available [facility] 4 19:02:55 Cardiac pacemaker procedure Active 2021 Not Available [facility] 4 19:02:55 Radicular pain 53873217 Active 2021 Not Available [facility] 4 19:02:55 Neck pain 56562848 Active 2022 Not Available [facility] 4 19:02:55 Pain in right arm 191102971 Active 2022 Not Available [facility] 4 19:02:55 Neuropathi c pain 500795011 Active 2022 Not Available [facility] 4 19:02:55 Spinal stenosis in cervical region 29880594 Active 2022 Not Available [facility] 4 19:02:55 Stenosis of spinal canal due to interverte bral disc 328230700 Active 2023 Vicenta Raza null, [place] - [facility] & [place] 4 15:34:56 Opioid dependence 97520533 Active 2023 Vicenta Raza null, [place] - [facility] [place] & [place] 4 15:35:32 Fall Active 2023 Vicenta Ry null, [place] [facility] [place] 4 15:39:33 Problem Notes None recorded. Medical [...] Updated DateTime 4 167.64 cm 25.2 kg/m2 31924.4 1 g 98 [degF] 92 % 92 % 100 /min 167/106 mm[Hg] Kelsi Grossman [facility] & [place] 4 14:20:33 Date Recorded Body height Body mass index (BMI) Body weight Body temperature Oxygen saturation Oxygen saturation in Arterial blood by Pulse oximetry Heart rate Respiratory rate Systolic And Diastolic Provider Name and Address Organization Details Last Updated DateTime 3 167.64 cm 22.9 kg/m2 37837.1 2 g 97.7 [degF] 84 % 84 % 92 /min 24 /min 129/83 mm[Hg] Michaela FELICIANO [facility] & [place] 3 16:13:48 Date Recorded Body height Body mass index (BMI) Body weight Body temperature Oxygen saturation Oxygen saturation in Arterial blood by Pulse oximetry Heart rate Systolic And Diastolic Provider Name and Address Organization Details Last Updated DateTime 3 167.64 cm 22.9 kg/m2 93935.4 g 97.4 [degF] 90 % 90 % 98 /min 146/94 mm[Hg] Martha FELICIANO [facility] & [place] 3 15:22:01 Date Recorded Body height Oxygen saturation Oxygen saturation in Arterial blood by Pulse oximetry Body temperature Body mass index (BMI) Body weight Provider Name and Address Organization Details Last Updated DateTime 3 167.64 cm 85 % 85 % 98.2 [degF] 22.8 kg/m2 07043.5 2 g Martha FELICIANO [facility] & [place] 3 16:01:38 Date Recorded Body height Provider Name an d Address Organization Details Last Updated DateTime 01/12/2023 167.64 cm Kelsi Savage [facility] & [place] 01/12/2023 10:51:45 Social History None recorded. Functional Status None recorded. Mental Status None recorded. Family History Nothing Reported. Medical History No medical history recorded. Gynecological HistoryNo gynecological history recorded. Obstetrics History GPAL:G 0 P 0 0 0 0 Past Encounters Encounter ID Performer Location Encounter Start Date Encounter Closed Date Diagnosis/Indication Diagnosis SNOMED-CT Code Diagnosis ICD10 Code Diagnosis IMO Codes Diagnosis Note [id number] Justin Andres MD [facility] [address] [address] 11/19/2021 11:47:34 11/19/2021 12:32:16 Bilateral osteoarthritis of knees 8472074217 81996 M17.0 Pain of bi lateral knee regions 4515838569 83413 M25.561 M25.562 Low back pain 612162391 M54.50 Radicular pain 78301177 M54.10 [id number] Justin Andres MD [facility] [address] [place] [address] [place] [address] 12/16/2021 14:22:03 12/16/2021 16:13:15 Bilateral osteoarthritis of knees 1021001658 36466 M17.0 Pain of bi lateral knee regions 5916874768 21677 M25.561 M25.562 Low back pain 901603988 M54.50 Radicular pain 22105412 M54.10 [id number] Justin Andres MD [facility] [address] [place] [address] [place] [address] 01/27/2022 14:39:34 01/27/2022 14:41:02 Bilateral osteoarthritis of knees 6915879083 43176 M17.0 Pain of bi lateral knee regions 2296100461 92609 M25.561 M25.562 Low back pain 505716286 M54.50 Radicular pain 41702890 M54.10 [id number] Justin Andres MD [facility] [address] [place] [address] [place] [address] 02/25/2022 08:32:14 02/25/2022 09:58:50 Bilateral osteoarthritis of knees 3349593263 26695 M17.0 Pain of bi lateral knee regions 6741106753 67764 M25.561 M25.562 Low back pain 593863554 M54.50 Radicular pain 77212341 M54.10 [id number] Justin Andres MD [facility] [address] [place] [address] [place] [address] 03/17/2022 12:17:51 03/17/2022 12:22:07 Bilateral osteoarthritis of knees 3372332191 87545 M17.0 Pain of bi lateral knee regions 7106008075 50087 M25.561 M25.562 Low back pain 073117367 M54.50 Radicular pain 87980043 M54.10 [id number] Justin Andres MD [facility] [address] [place] [address] [place] [address] 05/12/2022 11:37:32 05/12/2022 12:17:04 Bilateral osteoarthritis of knees 9019883492 33681 M17.0 Pain of bi lateral knee regions 6194870536 86879 M25.561 M25.562 Low back pain 165867252 M54.50 Radicular pain 32150773 M54.10 Neck pain 99406090 M54.2 Pain in right arm 069071 004 M79.601 Neuropathic pain 2531958 09 M79.2 [id number] Justin Andres MD [facility] [address] [place] [address] [place] [address] 06/09/2022 09:26:46 06/09/2022 11:32:40 Bilateral osteoarthritis of knees 5749593627 83004 M17.0 Pain of bi lateral knee regions 1371682140 52575 M25.561 M25.562 Low back pain 996474112 M54.50 Radicular pain 62461334 M54.10 Neck pain 79946622 M54.2 Pain in right arm 878362 004 M79.601 Neuropathic pain 8115805 09 M79.2 [id number] Justin Andres MD [facility] [address] [place] [address] [place] [address] 07/14/2022 15:03:41 07/14/2022 16:33:25 Bilateral osteoarthritis of knees 3772615334 05155 M17.0 Pain of bi lateral knee regions 8203249256 14665 M25.561 M25.562 Low back pain 120290037 M54.50 Radicular pain 27885950 M54.10 Neck pain 43765485 M54.2 Pain in right arm 361413 004 M79.601 Neuropathic pain 0006932 09 M79.2 [id number] Justin Andres MD [facility] [address] [place] [address] [place] [address] 08/25/2022 15:06:33 08/27/2022 09:08:30 Bilateral osteoarthritis of knees 0547519255 57258 M17.0 Pain of bi lateral knee regions 6465461044 09590 M25.561 M25.562 Low back pain 445835644 M54.50 Radicular pain 95806824 M54.10 Neck pain 60200184 M54.2 Pain in right arm 686419 004 M79.601 Neuropathic pain 2348030 09 M79.2 Spinal davi nosis in cervical region 27077446 M99.51 [id number] Justin Andres MD [facility] [address] [place] [address] DR [place], [place] [address] 09/29/2022 14:45:52 09/29/2022 15:26:15 Bilateral osteoarthritis of knees 4445543829 99075 M17.0 Pain of bi lateral knee regions 1248347559 83349 M25.561 M25.562 Low back pain 900847491 M54.50 Radicular pain 47345365 M54.10 Neck pain 08624578 M54.2 Pain in right arm 465766 004 M79.601 Neuropathic pain 0212164 09 M79.2 Spinal davi nosis in cervical region 65445794 M99.51 [id number] Justin Andres MD [facility] [address] [place] [address] [place] [address] 11/24/2022 15:13:54 11/24/2022 16:10:34 Bilateral osteoarthritis of knees 3342696682 66876 M17.0 Pain of bi lateral knee regions 8769155622 89559 M25.561 M25.562 Low back pain 432792713 M54.50 Radicular pain 54487965 M54.10 Neck pain 71892897 M54.2 Pain in right arm 495480 004 M79.601 Neuropathic pain 4908202 09 M79.2 Spinal davi nosis in cervical region 06219107 M99.51 Stenosis o f spinal canal due to intervertebral disc 534730961 M99.59 [id number] Justin Andres MD [facility] [address] [place] [address] 01/12/2023 10:48:01 01/12/2023 12:59:31 Bilateral osteoarthritis of knees 7293498084 68204 M17.0 Pain of bi lateral knee regions 1731653662 92773 M25.561 M25.562 Low back pain 271288976 M54.50 Radicular pain 05462865 M54.10 Neck pain 14312205 M54.2 Pain in right arm 774908 004 M79.601 Neuropathic pain 6266346 09 M79.2 Spinal davi nosis in cervical region 34793732 M99.51 Stenosis o f spinal canal due to intervertebral disc 036177340 M99.59 [id number] Justin Andres MD [facility] [address] [place] [address] [place] [address] 03/30/2023 13:08:28 03/30/2023 14:22:53 Bilateral osteoarthritis of knees 3262628005 60132 M17.0 Pain of bi lateral knee regions 0362828793 68105 M25.561 M25.562 Low back pain 138459092 M54.50 Radicular pain 11635036 M54.10 Neck pain 73383196 M54.2 Pain in right arm 462888 004 M79.601 Neuropathic pain 1500990 09 M79.2 Spinal davi nosis in cervical region 69891938 M99.51 Stenosis o f spinal canal due to intervertebral disc 712531857 M99.53 Opioid dependence 533669 00 F11.20 Fall W19.XXXA Health Concerns Section Related Observation LastModified by Organization Detai ls LastModified Time None Recorded Concern Status LastModified by Organization Details LastModified Time None Recorded Advance Directives Directive None Recorded Payers Insurance Date Sequence Insurance Name Policy Number Policy Harding Covered Member ID Harding Member ID Guarantor Name 08/29/2023 1 [facility] (MEDICARE REPLACEMENT/ ADVANTAGE - HMO) Lena Chandler [id number] Lena Chandler Notes Date Note Type Note Provider Name and Address Organization Details Recorded Time 3 text/html ROS as noted in the HPI Mrs. Chandler was referred by Dr. William [...] medical problems are stablized. Pain today is 710 Initial complaint: chronic low back and knee painOnset: 5+ years agoContext: past 2 years pain has worsened in her low back and bilateral kneesCharacter: sharp, throbbing, aches, numbness, tinglingLocation: low back that radiates to her bilateral lower extremities, bilateral knee painDuration: constant with fluctuationsInitial Intensity: 10Worse: bending, prolonged sitting, and standingBetter: nothingAssociated symptoms: [...] Knee Injections, Lumbar InjectionsImaging/Studie s: None Justin Muniswamy, MD [address] [facility], [place], [address], [place] - [facility] - [place] & [place] 08/27/2022 14:45:45 3 text/html ROS as noted in the HPI Mrs. Chandler was referred by Dr. William [...] Lumbar InjectionsImaging/Studie s: None Justin Andres MD [address] [facility], [place], [address], [place] - [facility] - [place] & [place] 10/01/2022 08:42:38 3 text/html ROS as noted in the HPI Mrs. Chandler was referred by Dr. William [...] reports she was able to go to [place] and [facility] with her this past weekend which [...] Lumbar InjectionsImaging/Studie s: None Justin Andres MD [address] [facility], [place], [address], [facility] - [place] & [place] 11/26/2022 11:29:36 3 text/html ROS as noted in the HPI Mrs. Chandler was referred by Dr. William [...] reports she was able to go to [place] and [facility] with her this past weekend which [...] InjectionsImaging/Studie s: None Justin Andres MD [address] [facility], [place], [address], [facility] [place] & [place] 01/13/2023 21:55:52 4 text/html ROS as noted in the HPI Mrs. Chandler was referred by Dr. William for chronic osteoarthritis with onset 5+ years ago. The patient primarily complains of low back pain with radiation down the BLE and bilateral knee pain. She was previously seen by Dr. Glalardo with unsuccessful interventional treatment. The patient has [...] InjectionsImaging/Studie s: None Justin Andres MD [address] [facility], [place], [address], [facility] - [place] & [place] 04/01/2023 14:43:21 OBGyn Episode No OBEpisode recorded.
--- OUTSIDE RECORDS SUMMARY | 2024-11-24 07:13 | XMS_ITS | Encounter Summary ---
Author Organization [employer] ([place], [place], [place], [place]) Address [address] [place] [address] Care Team Providers Care Parachute Cushion Installer Name Role Phone Linh Doty DO Primary Care Provider [phone] Lizzie Alves PA-C Unavailable [phone] Kaushik Mariscal MD Unavailable Encounter Details Date Type Department Care Team (Late st Contact Info) Description 11/23/2018 Transcribed Document [facility] Family Medicine [facility] [place] [address] ProviderChad MD [address] [place] [address] Social History Tobacco Use Types Packs/Day [...] 11/23/2018 8:12 EDT Electronically signed by Rekha [facility] Conversion Laborer Filter Plant Cerner at 05/27/2022 9:25 PM CDT documented in this encounter Plan of Treatment Not on file documented as of this encounter Visit Diagnoses Not on filedocumented in this encounter Care Teams Parachute Cushion Installer Relationship Specialty Start Date End Date Linh Doty, [address] [facility] [address] [place] [address] PCP - General Family Medicine 11/04/22 Lizzie Alves PA-C [address] [place] [address], [facility] [address] [place] [address] Hospitalist Cardiology 05/27/23 Kaushik Mariscal MD [address] [facility] [address] [place] [address] Automotive Refinish Technician Electrophysiology 11/18/23 documented as of this encounter
--- OUTSIDE RECORDS SUMMARY | 2024-11-24 07:13 | XMS_ITS | Encounter Summary ---
Author Organization [employer] ([place], [place], [place], [place]) Address [address] [place] [address] Care Team Providers Care Air Valve Mechanic Name Role Phone Linh Doty DO Primary Care Provider [phone] Lizzie Alves PA-C Unavailable [phone] Kaushik Mariscal MD Unavailable Reason for Referral * Echocardiography (Routine) - Closed Specialty Diagnoses / Procedures Referred By Contac t Referred To Contact Diagnoses Nonspecific abnormal electrocardiogram (ECG) (EKG) Disease of cardiovascular system Essential hypertension, malignant Procedures ECHO COMPLETE (DOPPLER / COLOR) W OR WO CONTRAST Lenka Benavidez MD [address] [place] [address] Phone: tel: fax: Referral ID Status Reason Start Date Expiration Date Visits Re quested Visits Authorized [id number] Closed 11/05/2021 01/30/2022 1 1 Encounter Details Date Type Department Care Team (Late st Contact Info) Description 11/01/2021 Outside Orders [facility] Central Scheduling [address] [place] [address] Lenka Benavidez MD [address] [place], [place] [id number] Nonspecific abnormal electrocardiogram (ECG) (EKG) (Primary Dx); [...] malignant documented in this encounter Care Teams Air Valve Mechanic Relationship Specialty Start Date End Date Linh Doty, DO [address] [facility] [address] [place] [address] PCP - General Family Medicine 11/04/22 Lizzie Alves PA-C [address] [facility] [address] [place] [address] Hospitalist Cardiology 05/27/23 Kaushik Mariscal MD [address] [facility] [address] [place], [place] [id number] Miniature Model Maker Electrophysiology 11/18/23 documented as of this encounter
--- OUTSIDE RECORDS SUMMARY | 2024-11-24 07:13 | XMS_ITS | Encounter Summary ---
Author Organization [facility] Address [address] [place] [address] Care Team Providers Care Human Resource Adviser Name Role Phone Felicitas Melara APRN Primary Care Provider [phone] Reason for Referral * Consultation (Routine) - Authorized Specialty Diagnoses / Procedures Referred By Contrené tirado Referred To Contact Nephrology Diagnoses Kidney disease Kay Rao MD [address] [place] [address] [place] [address] Phone: tel: fax: [facility] Nephrology, Bone & Mineral Metabolism [address] [facility], [address] [place] [address] Phone: tel: fax: Referral ID Status Reason Start Date Expiration Date Visits Requested Visits Authorized [id number] Authorized Specialty Services Required 10/18/2024 04/19/2026 1 1 Encounter Details Date Type Department Care Team (Late st Contact Info) Description 10/18/2024 Community Orders Community Practice [address] [place] [address] Kay Rao MD [address] [place] [address] [place] [address] Chronic kidney disease (CKD) stage G3a/A1, moderately decreased glomerular filtration rate (GFR) between 45-59 mL/min/1.73 square meter and albuminuria creatinine ratio less than 30 mg/g (CMS/HCC) (Primary Dx); Kidney disease Social History Tobacco Use Types Packs/Day Years [...] Recorded Patient Health Questionnaire-2 Score 0 05/30/2024 [facility] [place] of Occupat ional Health - Occupational Stress [...] Description 11/30/2024 2:20 PM EDT Office Visit [facility] [address] [place] [address] Natalia Alves MD [address] [place] [address] 12/14/2024 1:00 PM EST Office Visit [facility] Nephrology, Bone & Mineral Metabolism [address] [facility], [address] [place] [address] Prabhu Brown MD [address] [place] [address] Scheduled Referrals Name Type Priority Associated Diagnoses Order Schedule Ambulatory referral to Nephrology Outpatient Referral Routine Kidney disease Expected: 10/18/2024 (Approximate), Expires: 04/21/2026 documented as of this encounter Visit Diagnoses Diagnosis Chronic kidney disease (CKD) stage G3a/A1, moderately decreased glomerular filtration rate (GFR) between 45-59 mL/min/1.73 square meter and albuminuria creatinine ratio less than 30 mg/g- Primary Kidney disease Unspecified disorder of kidney and ureter documented in this encounter Additional Health Concerns Assessment Noted Time A fall risk assessment has been complete d for the patient 06/02/2024 1:58 PM EDT A Body Mass Index follow-up plan has been documented for the patient 06/02/2024 2:45 PM EDT documented as of this encounter Care Teams Human Resource Adviser Relationship Specialty Start Date End Date Felicitas Melara APRN [address] [place] [address] PCP - General 01/29/24 documented as of this encounter
--- OUTSIDE RECORDS SUMMARY | 2024-11-24 07:13 | XMS_ITS | Encounter Summary ---
Author Organization [employer] ([place], [place], [place], [place]) Address [address] [place] [address] Care Team Providers Care Chemical Analytical Sampler Name Role Phone Linh Doty DO Primary Care Provider [phone] Lizzie Alves PA-C Unavailable [phone] Kaushik Mariscal MD Unavailable Encounter Details Date Type Department Care Team (Late st Contact Info) Description 11/23/2018 Transcribed Document [facility] Family Medicine [facility] [place] [address] ProviderChad MD [address] [place] [address] Social History Tobacco Use Types Packs/Day [...] 11/23/2018 13:33 EDT Electronically signed by Rekha [facility] Conversion Quality Control Microbiology Supervisor Cerner at 05/27/2022 9:20 PM CDT documented in this encounter Plan of Treatment Not on file documented as of this encounter Visit Diagnoses Not on filedocumented in this encounter Care Teams Chemical Analytical Sampler Relationship Specialty Start Date End Date Linh Doty, DO [address] [facility] [address] [place] [address] PCP - General Family Medicine 11/04/22 Lizzie Alves PA-C [address] [place] [address], [facility] [address] [place] [address] Hospitalist Cardiology 05/27/23 Kaushik Mariscal MD [address] [facility] [address] [place] [address] Hospital Education Coordinator Electrophysiology 11/18/23 documented as of this encounter
--- OUTSIDE RECORDS SUMMARY | 2024-11-24 07:13 | XMS_ITS | Encounter Summary ---
Author Organization [facility] Address [address] [place] [address] Care Team Providers Care Child Protective Investigator Name Role Phone Annette Melaranicaryl Mazariegos APRN Primary Care Provider [phone] Reason for Visit * Reason Onset Date Comments HCN - Patient Message 10/28/2024 Encounter Details Date Type Department Care Team ([facility] st Contact Info) Description 10/28/2024 Telephone [facility] Nephrology, Bone & Mineral Metabolism [address] [facility], [address] [place] [address] HCN - Patient Message Social History Tobacco Use Types Packs/Day Years [...] Recorded Patient Health Questionnaire-2 Score 0 05/30/2024 [facility] - Occupational Stress Questionnaire Answer Date Recorded [...] the past 12 months has th e [email or web address], gas, oil, or water [employer] threatened to shut off services in your home? No 06/02/2024 Comments No Sex and Gender Information Value Date Recorded Sex Assigned at Not on file Legal Sex Female 8:21 PM EDT Gender Identity Not on file Sexual Orientation Not on file documented as of this encounter Miscellaneous Notes * Telephone Encounter - Myrna Zamorano R - 10/31/2024 1:46 PM EDT Pt had questions about the referral from her neurologist office. I told her that we do come to [place] but the next new pt appt availability is February 2025. So the current new patients have been coming to [place] for the first visit and then will up in [place] for the rest of the visits, shewas ok with getting it scheduled in [place]. I told her the appointment letter will be in the mail along with lab order to be done prior to visit. Pt understood and will call me back with any questions. * Telephone Encounter - Cathie Garcia - 10/28/2024 11:31 AM EDT Same Day Appt/Overbook Request Reason for Call: pt is calling to check status of her referral. If she is unavailable please leave message with appt date & time. Best contact number: [phone] (mobile) Optimal time of day to reach caller: ANYTIME Additional comments/information from caller: None Note: Please do not reply to this message. Follow-up communication and further actions as a result of this message need to be communicated with the patient directly, if the patient is not active onMyChart. If the patient is active on MyChart, they will receive notification of the communication/outcome via [employer]. documented in this encounter Plan of Treatment Upcoming Encounters Date Type Department Care Team (Late st Contact Info) Description 11/30/2024 2:20 PM EDT Office Visit [facility] [address] [place] [address] Natalia Alves MD [address] [place] [address] 12/14/2024 1:00 PM EST Office Visit [facility] [place] Nephrology, Bone & Mineral Metabolism [address] [facility], [address] [place] [address] Prabhu Brown MD [address] [place] [address] documented as of this encounter Visit Diagnoses Not on filedocumented in this encounter Additional Health Concerns Assessment Noted Time A fall risk assessment has been complete d for the patient 06/02/2024 1:58 PM EDT A Body Mass Index follow-up plan has been documented for the patient 06/02/2024 2:45 PM EDT documented as of this encounter Care Teams Child Protective Investigator Relationship Specialty Start Date End Date Felicitas Melara APRN [address] [place] [address] PCP - General 01/29/24 documented as of this encounter
--- OUTSIDE RECORDS SUMMARY | 2024-11-24 07:14 | XMS_ITS | Clinical Summary ---
Author Organization [facility] Address [address] [place] [address] Care Team Providers Care Auto Suspension And Steering Mechanic Name Role Phone Felicitas Melara APRN Primary Care Provider [phone] Allergies No known active allergies Medications albuterol [...] Encounters Date Type Department Care Team Description 11/16/2024 Orders Only [facility] [address] [place] [address] Myrna Zamorano Stage 3 chronic kidney disease, unspecified whether stage 3a or 3b CKD ([facility]) (Primary Dx); Vitamin D insufficiency 10/28/2024 Telephone [facility] Nephrology, Bone & Mineral Metabolism [address] [facility], [address] [place] [address] HCN - Patient Message 10/18/2024 Community Orders Community Practice [address] [place] [address] Kay Rao MD Chronic kidney disease (CKD) stage G3a/A1, moderately decreased glomerular filtration rate (GFR) between 45-59 mL/min/1.73 square meter and albuminuria creatinine ratio less than 30 mg/g (CMS/HCC) (Primary Dx); Kidney disease from Last 3 Months Immunizations Immunization Administration [...] Recorded Patient Health Questionnaire-2 Score 0 05/30/2024 [facility] of Occupat ional Health - Occupational Stress [...] the past 12 months has th e [employer], gas, oil, or water company threatened to [...] 2:20 PM EDT Office Visit [facility] Endocrinology [address] [place] [address] Natalia Alves MD [address] [place] [address] 12/14/2024 1:00 PM EST Office Visit [facility] Nephrology, Bone & Mineral Metabolism [address] [facility], [address] [place] [address] Prabhu Brown MD [address] [place] [address] Health Maintenance Due Date Last Done Comments [...] [facility]-Zoster Vaccines (2 of 2) 04/23/2020 02/27/2020 [facility]-RSV Vaccine: 60+ Years o r (1 - Risk 60-74 years 1-dose series) 2024 [id number] Vaccine (3 - 2024- season) 2024 12/22/2020, 04/28/2020 [facility]-Influenza Vaccine (#1) 10/10/202412/14, 01/29/2021 [facility]-Bone Density [...] Modality L-spine Radiographic Carlee ging us Natalia lAves MD IMG DXA PROCEDURES Final Resul t from Last 3 Months or Most Recently Relevant to Health Maintenance Insurance [employer] Care Teams Auto Suspension And Steering Mechanic Relationship Specialty Start Date End Date Felicitas Melara APRN [address] [place] [address] PCP - General 01/29/24
--- OUTSIDE RECORDS SUMMARY | 2024-11-24 07:14 | XMS_ITS | Encounter Summary ---
Author Organization [employer] ([place], [place], [place], [place]) Address [address] [place] [address] Care Team Providers Care Telephone Instrument Supervisor Name Role Phone Linh Doty DO Primary Care Provider Lizzie Alves PA-C Unavailable [phone] Kaushik Mariscal MD Unavailable Reason for Visit * Reason Comments Medication Refill Encounter Details Date Type Department Care Team (Late st Contact Info) Description 04/25/2023 Refill [facility] Cardiology [address] [place] [address] Lenka Benavidez MD [address] [facility] [address] [place] [address] Atherosclerotic heart disease of [place] coronary artery without angina pectoris; Personal history [...] Date Mendez rded Speak language other than Arabic at home Not on file 02/27/2023 Want [...] Visit Diagnoses Diagnosis Atherosclerotic heart disease of [place] coronary artery without angina pectoris Personal history of other diseases of the circulatory system documented in this encounter Care Teams Telephone Instrument Supervisor Relationship Specialty Start Date End Date Linh Doty, 8 [facility] [address] [place] [address] PCP - General Family Medicine 11/04/22 Lizzie Alves PA-C [address] [place] [address], [facility] [address] [place] [address] Hospitalist Cardiology 05/27/23 Kaushik Mariscal MD [address] [facility] [address] [place] [address] Cable Operator Electrophysiology 11/18/23 documented as of this encounter
--- OUTSIDE RECORDS SUMMARY | 2024-11-24 07:14 | XMS_ITS | Encounter Summary ---
Author Organization [employer] ([place], [place], [place], [place]) Address [address] [place] [address] Care Team Providers Care Anesthesiology Fellow Name Role Phone Lalitha Linhkarthikeyan Mazariegos DO Primary Care Provider [phone] Lizzie Alves PA-C Unavailable [phone] Kaushik Mariscal MD Unavailable Encounter Details Date Type Department Care Team (Late st Contact Info) Description 11/23/2018 Transcribed Document [facility] Family Medicine [facility] [place] [address] ProviderChad MD [address] [place] [address] Social History Tobacco Use Types Packs/Day [...] on filedocumented in this encounter Care Teams Anesthesiology Fellow Relationship Specialty Start Date End Date Linh Doty, 8 [facility] [address] [place] [address] PCP - General Family Medicine 11/04/22 Lizzie Alves PA-C [address] [place] [address], [facility] [address] [place] [address] Hospitalist Cardiology 05/27/23 Kaushik Mariscal MD [address] [facility] [address] [place] [address] Jeep Mechanic Electrophysiology 11/18/23 documented as of this encounter
--- OUTSIDE RECORDS SUMMARY | 2024-11-24 07:14 | XMS_ITS | Encounter Summary ---
Author Organization [employer] ([place], [place], [place], [place]) Address [address] [place] [address] Care Team Providers Care Garage Construction Equipment Mechanic Name Role Phone Linh William DO Primary Care Provider [phone] Lizzie Alves PA-C Unavailable [phone] Kaushik Mariscal MD Unavailable Encounter Details Date Type Department Care Team (Late st Contact Info) Description 11/23/2018 Transcribed Document [facility] Family Medicine [facility] [place] [address] ProviderChad MD [address] [place] [address] Social History Tobacco Use Types Packs/Day [...] Merchant MD - 11/23/2018 1:18 PM CDT [facility] [address] GAGAN MENDOZA :1965 Visit Time:11/23/2018 Your Visit Summary Your Care Team Admitting Physician - PUNEET BROOKS MD-CAR Attending Physician - PUNEET BROOKS MD-CAR Primary Care Physician - LINH WILLIAM MD-[facility] Referring Physician - PUNEET BROOKS MD-CAR Your Diagnosis Atherosclerosis of [place] arteries of extremities with intermittent claudication, right leg, Atherosclerosis of [place] arteries of extremities with intermittent claudication, right leg Discharge Vitals Temperature 36.2 ??C Heart Rate (Monitored) 82 Respiratory Rate 31 Blood Pressure 118/66 What to do next Instructions From Your Care Team 1. No driving for 24 hrs post procedure. 2. If site bleeds- call 911. hold pressure at the site. 3. Stroke- signs and symptoms - call 911. 4. Start plavix tomorrow. occupational therapy technician chantix- at pharmacy. Follow-Up Appointments Follow Up with [facility] When Within 2 to 4 weeks Medications What How Much When Instructions Next Dose clopidogrel (Plavix 75 mg oral tablet) 1 Tablet(s) Oral Every Day Refills: 6 Pickup at [place], [place] varenicline (Chantix 1 mg oral tablet) 1 Tablet(s) Oral Two Times A Day after meals Pickup at [facility] [place], [place] varenicline (Chantix Starter Pack 0.5 mg-1 mg oral tablet) 1 Tablet(s) Oral Two Times A Day as directed on package labeling Pickup at [place], [place] acetaminophen (Tylenol) Oral As needed for [...] Oral Two Times A Day Pharmacy Information [facility] - [place]: [address] [facility] [address] [place] [phone] Take your medications faithfully. Do NOT skip [...] Document Reviewed: 02/28/2011 ExitCare?? Patient Information ??2014 [employer]. Cerebral Angiogram, Care After This sheet gives [...] and water are not available, use hand global analytics head. ? Change your dressing as told by [...] contrast dye from your body. ??? Take uhnd-nzj-ipsjktc and prescription medicines only as told by [...] you are awake and alert. ??? Take naau-rmf-qhtazdw and prescription medicines only as told by [...] 05/17/2016 Elsevier Interactive Patient Education ?? 2019 [employer] Emergency Awareness and Preventative Care STROKE [...] Assistance with quitting is available by contacting 6-940-ZQIONOW. This is a free resource providing counseling, support, and referral. Or you may contact your personal physician. [place] Suicide Prevention Lifeline: The National Suicide Prevention [...] was given the opportunity to ask questions. Patient/Hearing Instrument Specialist Name: Patient/Hearing Instrument Specialist Signature: Relationship to Patient: Clinician/Hospital Hearing Instrument Specialist Signature: Date: Electronically signed by Rekha, Reyna Conversion Heavy Equipment Diesel Mechanic [place] at 05/27/2022 9:11 PM CDT documented in this encounter Plan of Treatment Not on file documented as of this encounter Visit Diagnoses Not on filedocumented in this encounter Care Teams Garage Construction Equipment Mechanic Relationship Specialty Start Date End Date Linh William, DO [address] [facility] [address] [place] [address] PCP - General Family Medicine 11/04/22 Lizzie Alves PA-C [address] [place] [address], [facility] [address] [place] [address] Hospitalist Cardiology 05/27/23 [place] [address] [place] [address] [address] [place] [address] Extender Electrophysiology 11/18/23 documented as of this encounter
--- OUTSIDE RECORDS SUMMARY | 2024-11-24 07:14 | XMS_ITS | Encounter Summary ---
Author Organization [facility] Address [address] [place] [address] Care Team Providers Care Rebeamer Name Role Phone Felicitas Melara APRN Primary Care Provider [phone] Encounter Details Date Type Department Care Team (Late st Contact Info) Description 11/16/2024 Orders Only [facility] [address] [place] [address] Myrna Zamorano Stage 3 chronic kidney disease, unspecified whether stage 3a or 3b CKD (CMS/HCC) (Primary Dx); Vitamin D insufficiency Social History Tobacco Use Types Packs/Day Years [...] the past 12 months has th e [employer], gas, oil, or water company threatened to [...] 11/30/2024 2:20 PM EDT Office Visit [facility] [address] [place] [address] Natalia Alves MD [address] [facility] [address] [place] [address] 12/14/2024 1:00 PM EST Office Visit [facility] Nephrology, Bone & Mineral Metabolism [address] [facility], [address] [place] [address] Prabhu Brown MD [address] [place] [address] Scheduled Orders Name Type Priority Associated Diagnoses Orde r Schedule Renal Function Panel, Plasma Lab Routine Stage 3 chronic kidney disease, unspecified whether stage 3a or 3b CKD (CMS/HCC) Expected: 11/16/2024 (Approximate), Expires: 05/17/2026 CBC and Differential Lab Routine Stage 3 chronic kidney disease, unspecified whether stage 3a or 3b CKD (CMS/HCC) Expected: 11/16/2024 (Approximate), Expires: 05/17/2026 Creatinine, Random, Urine Lab Routine Stage 3 chronic kidney disease, unspecified whether stage 3a or 3b CKD (CMS/HCC) Expected: 11/16/2024 (Approximate), Expires: 05/17/2026 Protein, Random, Urine with Creatinine Lab Routine Stage 3 chronic kidney disease, unspecified whether stage 3a or 3b CKD (CMS/HCC) Expected: 11/16/2024 (Approximate), Expires: 05/17/2026 Urinalysis with reflex microscopic (Culture NOT Included) Lab Routine Stage 3 chronic kidney disease, unspecified whether stage 3a or 3b CKD (CMS/HCC) Expected: 11/16/2024 (Approximate), Expires: 05/17/2026 PTH Intact Total Lab Routine Stage 3 chronic kidney disease, unspecified whether stage 3a or 3b CKD (CMS/HCC) Vitamin D insufficiency Expected: 11/16/2024 (Approximate), Expires: 05/17/2026 Vitamin D 25 Hydroxy Lab Routine Stage 3 chronic kidney disease, unspecified whether stage 3a or 3b CKD (CMS/HCC) Vitamin D insufficiency Expected: 11/16/2024 (Approximate), Expires: 05/17/2026 documented as of this encounter Visit Diagnoses Diagnosis Stage 3 chronic kidney disease, unspecified whether stage 3a or 3b CKD (CMS/HCC)- Primary Vitamin D insufficiency documented in this encounter Additional Health Concerns Assessment Noted Time A fall risk assessment has been complete d for the patient 06/02/2024 1:58 PM EDT A Body Mass Index follow-up plan has been documented for the patient 06/02/2024 2:45 PM EDT documented as of this encounter Care Teams Rebeamer Relationship Specialty Start Date End Date Felicitas Melara APRN [address] [id number] PCP - General 01/29/24 documented as of this encounter
--- OUTSIDE RECORDS SUMMARY | 2024-11-24 07:14 | XMS_ITS | Clinical Summary ---
Author Organization [facility] Address [address] [place] [address] Phone Care Team Providers Care Electronic Warfare Officer Name Role Phone Fracisco DALTON, Gilson Begum Unavailable [ ] Conditions or Problems Problem Name Problem Code Onset Date Status Entry Date Provider Comment Standard Description Annotate Dermatitis due to drug AND/OR medicine taken internally 32268339 (SNOMED CT) 08/21 Active 08/21 Gilson Yap [...] subsequent encounter Cellulitis/wo und infection, chest wall 82869238 (SNOMED CT) 07/26 Active 07/26 Sherri Herndon Cellulitis of chest wall Ischemic Cardiomyopath y 998816191 (SNOMED CT) 07/26 Active 07/26 Sherri Herndon Generalized ischemic myocardial dysfunction Nicotine dependence, cigarettes 48075183 (SNOMED CT) 07/26 Active 07/26 Sherri Herndon Cigarette smoker COPD 21972733 (SNOMED CT) 07/26 Active 07/26 Sherri Herndon Chronic obstructive pulmonary disease Acute respiratory failure with hypoxia 63457456 (SNOMED CT) 07/26 Active 07/26 Sherri Herndon Acute respiratory failure Hypoalbuminem ia 173281395 (SNOMED CT) 07/26 Active 07/26 Sherri Herndon Hypoalbuminemia Hypocalcemia 1917334 ([facility] CT) 07/26 Active 07/26 Sherri Herndon Hypocalcemia Thrombocytope delia, secondary D69.59 (ICD-10-CM ) 07/26 Active 07/26 Sherri Herndon Other secondary thrombocytopenia Hyponatremia 98478528 ([facility] CT) 07/26 Active 07/26 Sherri Herndon Hyponatremia Medications Medication Instructions Start Date Stop Date Generic Name NDC Provider HYDROCODONE-ROSE TAMINOPHEN 5-325 MG TABS 1 Tab, as needed, Oral, every 8 hours hydrocodone-aceta minophen 26180999809 Faina Lamas CARVEDILOL 12.5 MG TABS 1 Tab, Oral, twice a day carvedilol 43503465036 Faina Lamas CEFDINIR 300 MG CAPS 1 Cap, Oral, every 12 hours cefdinir 28315762012 Faina Lamas DOXYCYCLINE HYCLATE 100 MG CAPS 1 Cap, Oral, twice a day doxycycline hyclate 32811748611 Faina Lamas FLORASTOR 250 MG CAPS 1 Cap, Oral, twice a day saccharomyces boulardii 44456481179 Faina Lamas FLUTICASONE PROPIONATE 50 MCG/ACT SUSP 2 [place], as needed, Nasal, Daily fluticasone propionate 28640215941 Faina Lamas FOLIC ACID 1 MG TABS 1 Tab, Oral, Daily folic acid 35774604694 Faina Lamas FUROSEMIDE 20 MG TABS 1 Tab, Oral, Daily furosemide 04492761176 Faina Lamas GABAPENTIN 600 MG TABS 1 Tab, Oral, three times a day gabapentin 74997777376 Faina Lamas LISINOPRIL 20 MG TABS 1 Tab, Oral, At Bedtime lisinopril 78110824583 Faina Lamas NICOTINE STEP 1 21 MG/24HR PT24 1 Patch, TransDermal, Daily nicotine 66393801362 Faina Vossuelalessia Lamas PANTOPRAZOLE SODIUM 40 MG TBEC 1 Tab, Oral, Daily pantoprazole 11518582465 Faina Du Lamas POTASSIUM CHLORIDE ER 20 MEQ CR-TABS 1 Tab, Oral, Daily potassium chloride 13758060799 Fainacandice Vossuelalessia Lamas TOPIRAMATE 25 MG TABS 1 Tab, Oral, At Bedtime topiramate 56956312764 Faina CantuHammad Lamas VITAMIN D (ERGOCALCIFEROL ) 1.25 MG (80525 UT) CAPS 1 Cap, Oral, Weekly ergocalciferol (vitamin d2) 77128871767 Fainacandice Lmaas Medications Administered No information available. Allergies, Adverse [...] Name Date Entry Date CPT-sl STAT Labs CPT-35873 CMP [id number] CBC with Differential 2021 CPT-84003 C- reactive protein CPT-Cooral Continue oral antibiotics [...]
--- OUTSIDE RECORDS SUMMARY | 2024-11-24 07:14 | XMS_ITS | Referral Summary ---
Author Organization [employer] ([place], [place], [place], [place]) Address [address] [place] [address] Care Team Providers Care Auto Driver Name Role Phone Lalitha Linhkarthikeyan Mazariegos DO Primary Care Provider Lizzie Alves PA-C Unavailable [phone] Kaushik Mariscal MD Unavailable Encounters Date Type Department Care Team Description 11/17/2024 3:00 AM EDT Clinical Support [facility] Electrophysiology [address] [place] [address] Kaushik Mariscal MD Encounter for adjustment or management of cardiac device (Primary Dx); Ischemic cardiomyopathy with implantable cardioverter-defibrill ator (ICD); Chronic combined systolic and diastolic congestive heart failure (HCC) 10/17/2024 3:00 AM EDT Clinical Support [facility] Electrophysiology [address] [place] [address] Kaushik Mariscal MD Encounter for adjustment or management of cardiac device (Primary Dx); Ischemic cardiomyopathy with implantable cardioverter-defibrill ator (ICD); Chronic combined systolic and diastolic congestive heart failure (HCC) 10/11/2024 3:00 AM EDT Clinical Support [facility] Electrophysiology [address] [place] [address] Kaushik Mariscal MD Encounter for adjustment or management of cardiac device (Primary Dx); Ischemic cardiomyopathy with implantable cardioverter-defibrill ator (ICD); Chronic combined systolic and diastolic congestive heart failure (HCC) 09/15/2024 3:00 AM EDT Clinical Support [facility] Electrophysiology [address] [place] [address] Kaushik Mariscal MD Encounter for adjustment [...] 75 mg tabletIndications :Atherosclerotic heart disease of [place] coronary artery without angina pectoris TAKE ONE [...] Date Mendez rded Speak language other than Venezuelan at home Not on file 02/27/2023 Want [...] on file Medical Devices Implanted Type Area Solids Control Technician Device Identifier Shelf Expiration Date Model / Serial / Lot Icd-08/26/2021 Implanted:08/26 by Kaushik Mariscal MD (Quantity not on file) ICD [employer] 500Q / [id number] / Insurance [facility] Care Teams Auto Driver Relationship Specialty Start Date End Date Linh Doty, [address] [facility] [address] [place] [address] PCP - General Family Medicine 11/04/22 Lizzie Alves PA-C [address] [facility] [place] [address] Hospitalist Cardiology 05/27/23 Kaushik Mariscal MD [address] [facility] [address] [place] [address] Hardware Design Engineer Electrophysiology 11/18/23
--- OUTSIDE RECORDS SUMMARY | 2024-11-24 07:14 | XMS_ITS | Clinical Summary ---
Author Organization [email or web address] ([place], [place], [place], [place]) Address [address] [place] [address] Care Team Providers Care Coil Spring Assembler Name Role Phone Linh Doty DO Primary Care Provider [phone] Lizzie Alves PA-C Unavailable Kaushik Mariscal MD Unavailable Allergies No known [...] 75 mg tabletIndications :Atherosclerotic heart disease of [place] coronary artery without angina pectoris TAKE ONE [...] Description 11/17/2024 3:00 AM EDT Clinical Support [facility] Electrophysiology [address] [place] [address] Kaushik Mariscal MD Encounter for adjustment or management of cardiac device (Primary Dx); Ischemic cardiomyopathy with implantable cardioverter-defibrill ator (ICD); Chronic combined systolic and diastolic congestive heart failure (HCC) 10/17/2024 3:00 AM EDT Clinical Support [facility] Electrophysiology [address] [place] [address] Kaushik Mariscal MD Encounter for adjustment or management of cardiac device (Primary Dx); Ischemic cardiomyopathy with implantable cardioverter-defibrill ator (ICD); Chronic combined systolic and diastolic congestive heart failure (HCC) 10/11/2024 3:00 AM EDT Clinical Support [facility] Electrophysiology [address] [place] [address] Kaushik Mariscal MD Encounter for adjustment or management of cardiac device (Primary Dx); Ischemic cardiomyopathy with implantable cardioverter-defibrill ator (ICD); Chronic combined systolic and diastolic congestive heart failure (HCC) 09/15/2024 3:00 AM EDT Clinical Support [facility] Electrophysiology [address] [place] [address] Kaushik Mariscal MD Encounter for adjustment [...] Date Mendez rded Speak language other than Uzbek at home Not on file 02/27/2023 Want [...] Shingles Vaccine (Zoster) (2 of 2) 04/23/20202020 Tobacco Cessation Counseling and Screening (12+) 05/27/2024 05/28/2023 COVID-19 VACCINE (3 - 2024- season) 2024, 04/28/2020 Influenza Vaccine (#1) 2024 12/15/2023, 2020 DTAP/TDAP/TD VACCINES (2 - Td or Tdap) 01/29/2031 Medical Devices Implanted Type Area Cross Country And Track And Field Coach Device Identifier Shelf Expiration Date Model / Serial / Lot Icd-08/26/2021 Implanted:08/26 by Kaushik Mariscal MD (Quantity not on file) ICD [employer] 500Q / [id number] / Insurance [facility] [address] Care Teams Coil Spring Assembler Relationship Specialty Start Date End Date Linh Doty, DO [address] [facility] [address] [place] [address] PCP - General Family Medicine 11/04/22 Lizzie Alves PA-C [address] [facility], [facility] [address] [place] [address] Hospitalist Cardiology 05/27/23 Kaushik Mariscal MD [address] [facility] [address] [place] [address] Sales & Service Associate Electrophysiology 11/18/23
--- OUTSIDE RECORDS SUMMARY | 2024-11-24 07:14 | XMS_ITS | Encounter Summary ---
Author Organization [employer] ([place], [place], [place], [place]) Address [address] [place] [address] Care Team Providers Care Grinder Needle Tip Name Role Phone Linh Doty DO Primary Care Provider Lizzie Alves PA-C Unavailable [phone] Kaushik Mariscal MD Unavailable Reason for Visit * Reason Comments Medication Refill Encounter Details Date Type Department Care Team (Late st Contact Info) Description 04/20/2023 Refill [facility] Cardiology [address] [place] [address] Pedro Cruz NP [address] [facility] [address] [place] [address] Acute coronary thrombosis not resulting in myocardial [...] (HCC) documented in this encounter Care Teams Grinder Needle Tip Relationship Specialty Start Date End Date Linh Doty, [address] [facility] [address] [place] [address] PCP - General Family Medicine 11/04/22 Lizzie Alves PA-C [address] [place] [address], [facility] [address] [place] [address] Hospitalist Cardiology 05/27/23 Kaushik Mariscal MD [address] [facility] [address] [place] [address] Manager Utilization Electrophysiology 11/18/23 documented as of this encounter
--- OUTSIDE RECORDS SUMMARY | 2024-11-24 07:14 | XMS_ITS | Data Portability ---
Author Organization [facility] Address [address] [place] [address] Assessment Encounter Date Assessment Date Assessment LastModified by Organization Details LastModified Time 06/12/2023 06/12/2023 PULMONARY CONSULTATION HISTORICAL : This 57 year old female was admitted to the facility on 06/05/2023 after hospitalization at [facility] where she presented with altered mental status [...] the facility on 06/05/2023 after hospitalization at [facility] where she presented with altered mental status [...] By Organization Details Last Modified Time 06/19/2023 [id number] CONSENT FOR ENROLLMENT IN PRINCIPAL CARE MANAGEMENT: [...] though PCM services will not involve a [id number]-af-hxxe meeting with a provider. [email or web address] Not available [...] ICD10 Code Diagnosis IMO Codes Diagnosis Note [id number] Dodie Cummins NP [facility] [address] [place] [address] 06/12/2023 20:51:54 06/19/2023 11:40:30 [id number] Dodie Cummins NP [facility] [address] [place] [address] 06/19/2023 09:57:05 06/22/2023 10:44:29 Health Concerns Section Related Observation LastModified by Organization Detai ls LastModified Time None Recorded Concern Status LastModified by Organization Details LastModified Time None Recorded Advance Directives Directive None Recorded Payers Insurance Date Sequence Insurance Name Policy Number Policy Harding Covered Member ID Harding Member ID Guarantor Name 06/19/2023 1 [employer] (MEDICARE REPLACEMENT/ ADVANTAGE - HMO) Lena Chandler [id number] Lena Chandler 06/12/2023 2 [place] Lena Chandler [id number] Lena Chandler OBGyn Episode No OBEpisode recorded.
--- OUTSIDE RECORDS SUMMARY | 2024-11-24 07:14 | XMS_ITS | Encounter Summary ---
Author Organization [employer] ([place], [place], [place], [place]) Address [address] [place] [address] Care Team Providers Care Junction Maker Name Role Phone Lalitha Linhkarthikeyan Mazariegos DO Primary Care Provider [phone] Lizzie Alves PA-C Unavailable [phone] Kaushik Mariscal MD Unavailable Encounter Details Date Type Department Care Team (Late st Contact Info) Description 11/23/2018 Transcribed Document [facility] Family Medicine [facility] [address] ProviderChad MD [address] [place] [address] Social History Tobacco Use Types Packs/Day [...] Source : Stated Height Entry Format : [place] Height, Feet : 0 ft(Converted to: 0 cm, 0 Inch) Height, Inches : 70 Inch(Converted to: 5 ft 10 Inch, 177.80 cm) Clinical Height : 177.8 cm Weight Source : Standing scale Weight Entry Format : [place] Clinical Dosing Weight : 77.27 kg Weight, Pounds : 170 lb Body Surface Area (BSA) : 1.95 m2 Body Mass Index : 24.4 kg/m2 (HI) [place] Body Weight : 68 kg ELAINE CHOI [...] : No Emergency Contact #1 : Alexx- [phone]- cell number Emergency Contact #1 Phone Number : boyfriend. Emergency Contact #1 Relationship : - Emergency Contact #2 : - Emergency Contact #2 Phone Number : - Emergency Contact #2 Relationship : - Primary Language : Kenyan Communication Barrier : None ELAINE CHOI RN [...] Scale Risk Level : 0-24 Low Risk [place] Fall Interventions : Wheels locked ELAINE CHOI [...] on filedocumented in this encounter Care Teams Junction Maker Relationship Specialty Start Date End Date Linh Doty, [address] [place] [address] PCP - General Family Medicine 11/04/22 Lizzie Alves PA-C [address] , [facility] [address] [place] [address] Hospitalist Cardiology 05/27/23 Kaushik Mariscal MD [address] [facility] [place] [address] Dog Boarder Electrophysiology 11/18/23 documented as of this encounter
--- OUTSIDE RECORDS SUMMARY | 2024-11-24 07:14 | XMS_ITS | Encounter Summary ---
Author Organization [employer] ([place], [place], [place], [place]) Address [address] [place] [address] Care Team Providers Care Cell Stripper Final Name Role Phone Linh Doty DO Primary Care Provider [phone] Lizzie Alves PA-C Unavailable [phone] Kaushik Mariscal MD Unavailable Encounter Details Date Type Department Care Team (Late st Contact Info) Description 11/23/[address] [facility] [place] [address] ProviderChad MD [address] [place] [address] Social History Tobacco Use Types Packs/Day [...] Document Reviewed: 02/28/2011 ExitCare? Patient Information ?2013 [employer]. Cerebral Angiogram, Care After This sheet gives [...] and water are not available, use hand vessel slagman. ? Change your dressing as told by [...] contrast dye from your body. ??? Take nevc-auu-tdbyyio and prescription medicines only as told by [...] 06/12/2014 Document Revised: 03/02/2017 Document Reviewed: 03/02/2017 [employer] Interactive Patient Education ? 2019 [employer] [...] you are awake and alert. ??? Take sfgz-zmv-awagnxm and prescription medicines only as told by [...] 11/16/2013 Document Revised: 06/30/2016 Document Reviewed: 05/17/2016 [employer] Interactive Patient Education ? 2019 [employer] documented in this encounter Plan of Treatment Not on file documented as of this encounter Visit Diagnoses Not on filedocumented in this encounter Care Teams Cell Stripper Final Relationship Specialty Start Date End Date Linh Doty, DO [address] [facility] [address] [place] [address] PCP - General Family Medicine 11/04/22 Lizzie Alves PA-C [address] [facility], [facility] [address] [place] [address] Hospitalist Cardiology 05/27/23 Kaushik Mariscal MD [address] [facility] [address] [place] [address] Pencil Inspector Electrophysiology 11/18/23 documented as of this encounter
--- OUTSIDE RECORDS SUMMARY | 2024-11-24 07:14 | XMS_ITS | Encounter Summary ---
Author Organization [employer] ([place], [place], [place], [place]) Address [address] [place] [address] Care Team Providers Care Maintenance Team Member Name Role Phone Linh Doty DO Primary Care Provider [phone] Lizzie Alves PA-C Unavailable [phone] Kaushik Mariscal MD Unavailable Reason for Visit * Reason Comments Medication Refill Encounter Details Date Type Department Care Team (Late st Contact Info) Description 05/25/2023 Refill [facility] Cardiology [address] [place] [address] Lenka Benavidez MD [address] [facility] [address] [place] [address] Personal history of other diseases of the circulatory system; Atherosclerotic heart disease of [place] coronary artery without angina pectoris Social History [...] the circulatory system Atherosclerotic heart disease of [place] coronary artery without angina pectoris documented in this encounter Care Teams Maintenance Team Member Relationship Specialty Start Date End Date Linh Doty, [address] [facility] [address] [place] [address] PCP - General Family Medicine 11/04/22 Lizzie Alves PA-C [address] [place] [address], [facility] [address] [place] [address] Hospitalist Cardiology 05/27/23 Kaushik Mariscal MD [address] [facility] [address] [place] [address] Sequins Spooler Electrophysiology 11/18/23 documented as of this encounter
--- OUTSIDE RECORDS SUMMARY | 2024-11-24 07:14 | XMS_ITS | Encounter Summary ---
Author Organization [email or web address] ([place], [place], [place], [place]) Address [address] [place] [address] Care Team Providers Care Md Psychiatry Name Role Phone Linh Doty DO Primary Care Provider Lizzie Alves PA-C Unavailable [phone] Kaushik Mariscal MD Unavailable Reason for Visit * Reason Comments Medication Refill Encounter Details Date Type Department Care Team (Late st Contact Info) Description 04/27/2023 Refill [facility] Cardiology [address] [place] [address] Lenka Benavidez MD [address] [facility] [address] [place] [address] Atherosclerotic heart disease of [place] coronary artery without angina pectoris; Personal history [...] Visit Diagnoses Diagnosis Atherosclerotic heart disease of [place] coronary artery without angina pectoris Personal history of other diseases of the circulatory system documented in this encounter Care Teams Md Psychiatry Relationship Specialty Start Date End Date Linh Doty, [address] [facility] [address] [place] [address] PCP - General Family Medicine 11/04/22 Lizzie Alves PA-C [address] [facility], [facility] [address] [place] [address] Hospitalist Cardiology 05/27/23 Kaushik Mariscal MD [address] [facility] [address] [place] [address] Outside Maintenance Worker Electrophysiology 11/18/23 documented as of this encounter
--- OUTSIDE RECORDS SUMMARY | 2024-11-24 07:15 | XMS_ITS | Data Portability ---
Author Organization [facility] Address [address] [place] [address] Care Team Providers Care Deputy Prosecuting Attorney Name Role Phone PHONG WILLIAM Primary Care [...] By Organization Details Last Modified Time 01/27/2017 [id number] 1. Tobacco cessation stongly encouraged. 2. EGD [...] thyro id No observ ation record ed. [email or web address] Not Available 2016 10:51:38 01/27/20 17 01/22/2017 [place], thyro id No observ ation record ed. [email or web address] [facility] (Radiology) [address] , [place], [address], 01/27/2017 13:16:29 Result Notes None recorded. 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 Procedures Surgical History Date Name Laterality Status Provider Name and Address Organization Details Recorded Time 07/25/19 22 removal of implantable cardiac pacemaker completed [facility] 07/29/2021 10:09:55 07/03/19 22 replacement of electronic heart device, pulse generator completed [facility] 07/29/2021 10:16:21 transesophageal echocardiography completed [facility] 07/29/2021 10:10:01 Imaging Results None [...] Updated DateTime 2 167.64 cm 22.6 kg/m2 82551.9 3 g 76 /min 91 % 91 % 4 L/min 106/70 mm[Hg] Mireille Deshpande [facility] [place] [facility] 2 10:19:54 Date Recorded Body weight Body mass index (BMI) Body height Body temperature Provider Name and Address Organization Details Last Updated DateTime 01/27/2017 04057.09 g 29.3 kg/m2 167.64 cm 97.5 [degF] Isabell Ramoscharley [facility] [place] [facility] 01/27/2017 16:15:45 Social History Question Answer Notes LastModified by Organizat ion Details LastModified Time Tobacco Smoking Status Former Smoker Mireille Deshpande [facility] 07/30/2021 10:13:31 What Was The Date Of Your Most Recent Tobacco Screening? 07/30/2021 Information not available 07/30/2021 Has Tobacco Cessation Counseling Been Provided? No Information not available 07/30/2021 Sex: Unknown Functional [...] Condition Response Anesthesia Complications N Heart Attack ([place]) Y Bleeding Disorder N Cancer N Alcohol Overuse/Alcohol Abuse N Heart Disease Y Hypertension Y Gynecological HistoryNo gynecological history recorded. Obstetrics History GPAL:G 0 P 0 0 0 0 Past Encounters Encounter ID Performer Location Encounter Start Date Encounter Closed Date Diagnosis/Indication Diagnosis SNOMED-CT Code Diagnosis ICD10 Code Diagnosis IMO Codes Diagnosis Note [id number] KRISTOPHER AVILA III, [place] [facility] [address] [place] [address] 01/27/2017 15:44:32 01/28/2017 09:23:17 Dysphagia 96501080 R13.10 Nicotine dependence 5629 4008 F17.200 Thyroid nodule 202500097 E04.1 Cyst of thyroid 90513654 E04.1 Chronic hoarseness 12526 76745 105 R49.0 Hypertroph y of nasal turbinates 14726434 J34.3 Excessive belching 81160 7000 R14.2 [id number] ABBE HOLLEY MD [facility] [address] [place] [address],[address] [place] [address] 07/30/2021 10:05:00 07/30/2021 10:27:26 Wound of skin 465666201 T14.8XXD Patient's incision is well-heale d. Follow-up as noted above. Health Concerns Section Related Observation LastModified by Organization Detai ls LastModified Time None Recorded Concern Status LastModified by Organization Details LastModified Time None Recorded Advance Directives Directive None Recorded Payers Insurance Date Sequence Insurance Name Policy Number Policy Harding Covered Member ID Harding Member ID Guarantor Name 07/30/2021 1 [place] Lena Chandler [id number] Lena Chandler 04/21/2018 1 *SELF PAY* Pina Chandler 08/06/2021 1 [employer] (MEDICARE REPLACEMENT/ ADVANTAGE - HMO) Lena Chandler [id number] Lena Chandler Notes Date Note Type Note Provider Name and Address Organization Details Recorded Time 01/27/2017 text/html Lena comes in today for evaluation of her thryoid gland. She [...] or Barium swallow. KRISTOPHER AVILA III, MD [address] [place] [address], [phone], [facility] 01/27/2017 17:33:10 07/30/2021 text/html Mrs. 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 She is normally followed by Dr. Mariscal. He reports no problems with wound healing and is anticipating a follow-up with Dr. Mariscal later this month. ABBE HOLLEY MD [address] [place] [address], [phone], [facility] 07/30/2021 10:24:58 OBGyn Episode No OBEpisode recorded.
--- NOTE | 2024-11-24 07:30 | CT_ITS ---
FINAL REPORT TECHNIQUE: Thin section axial images were obtained through the lungs using a low-dose technique per lung cancer screening protocol. Reconstruction images were obtained using the axial data. Exam was performed using dose reduction technique. CLINICAL HISTORY: lung cancer screening former, quit 1 years ago 1ppd x 20 years COMPARISON: 11/18/2023 FINDINGS: CTDLvol: 2.90 DLP: 101.60 Former smoker 20 pack year history Lungs: There are changes from emphysema. A 5 mm subpleural left lower lobe nodule on series 4, image 51 is unchanged. There is evidence of prior granulomatous disease. A subpleural right lower lobe nodule measuring 4 mm on series 4, image 64 is unchanged. There are 2 very small right middle lobe nodules on images 59 and 60 which are also unchanged. No additional nodules or masses identified. No consolidation. Lymph nodes: No thoracic lymphadenopathy. Mediastinum: Heart size is normal. Prominent coronary artery calcifications. Pleura/pericardium: No pleural or pericardial effusion. Other: No acute abnormality in the upper abdomen. IMPRESSION: Stable bilateral small pulmonary nodules. Modifier S: Prominent coronary artery calcifications Lung RADS: 2S Recommendation: 12 month follow-up low-dose chest CT Reviewed, Interpreted and Dictated by Carolann Valladares MD Transcribed by Katy Parsons Authenticated and [facility]
== END 2024-11-24 23:59 | disposition home or self-care (01) ==
LOC: RAD 07:12
PROVIDERS: PCP Nurse Practitioner Family; Visit Provider Internal Medicine Pulmonary Disease
DX: R91.8 Other nonspecific abnormal finding of lung field (principal); I25.10 Atherosclerotic heart disease of native coronary artery without angina pectoris; Z12.2 Encounter for screening for malignant neoplasm of respiratory organs; Z87.891 Personal history of nicotine dependence
CPT/HCPCS: 71271

== ENCOUNTER 2024-12-07 16:14 | Outpatient (CLI) | payer MEDICARE, SELFPAY ==
--- OUTSIDE RECORDS SUMMARY | 2024-09-15 03:00 | XMS_ITS | Encounter Summary ---
Author Organization [employer] ([place], [place], [place], [place]) Address [address] [place] [address] Care Team Providers Care Letterset Press Set Up Operator Name Role Phone Lalitha Linh Delilah DAVIS Primary Care Provider [phone] Lizzie Alves PA-C Unavailable [phone] Kaushik Mariscal MD Unavailable Reason for Visit * Reason Comments Pacemaker /ICD Home Monitoring Encounter Details Date Type Department Care Team (Late st Contact Info) Description 09/15/2024 3:00 AM EDT Clinical Support [facility] Electrophysiology [address] [place] [address] Kaushik Mariscal MD [address] [facility] [address] [place] [address] Encounter for adjustment or management of cardiac [...] Date Mendez rded Speak language other than Spanish at home Not on file 02/27/2023 Want [...] (HCC) documented in this encounter Care Teams Letterset Press Set Up Operator Relationship Specialty Start Date End Date Linh Doty, 8 [facility] [address] [place] [address] PCP - General Family Medicine 11/04/22 Lizzie Alves PA-C 14[address] [facility], [facility] [address] [place] [address] Hospitalist Cardiology 05/27/23 Kaushik Mariscal MD [address] [facility] [address] [place] [address] Data Management Manager Electrophysiology 11/18/23 documented as of this encounter
--- OUTSIDE RECORDS SUMMARY | 2024-10-11 03:00 | XMS_ITS | Encounter Summary ---
Author Organization [employer] ([place], [place], [place], [place]) Address [address] [place] [address] Care Team Providers Care Provider Relations Rep Name Role Phone Lalitha Linh Delilah DAVIS Primary Care Provider [phone] Lizzie Alves PA-C Unavailable [phone] Kaushik Mariscal MD Unavailable Reason for Visit * Reason Comments Pacemaker /ICD Home Monitoring Encounter Details Date Type Department Care Team (Late st Contact Info) Description 10/11/2024 3:00 AM EDT Clinical Support [facility] Electrophysiology [address] [place] [address] Kaushik Mariscal MD 1401 [facility] [address] [place] [address] Encounter for adjustment or management of cardiac [...] (HCC) documented in this encounter Care Teams Provider Relations Rep Relationship Specialty Start Date End Date Linh Doty, 8 [facility] [address] [place] [address] PCP - General Family Medicine 11/04/22 Lizzie Alves PA-C 1401 [facility], [facility] [address] [place] [address] Hospitalist Cardiology 05/27/23 Kaushik Mariscal MD [address] [facility] [address] [place] [address] Drum Sprayer Electrophysiology 11/18/23 documented as of this encounter
--- OUTSIDE RECORDS SUMMARY | 2024-10-17 03:00 | XMS_ITS | Encounter Summary ---
Author Organization [employer] ([place], [place], [place], [place]) Address [address] [place] [address] Care Team Providers Care Computer Education Teacher Name Role Phone Lalitha Linh Delilah DAVIS Primary Care Provider [phone] Lizzie Alves PA-C Unavailable [phone] Kaushik Mariscal MD Unavailable Reason for Visit * Reason Comments Pacemaker /ICD Home Monitoring Encounter Details Date Type Department Care Team (Late st Contact Info) Description 10/17/2024 3:00 AM EDT Clinical Support [facility] Electrophysiology [address] [place] [address] Kaushik Mariscal MD 1401 [facility] [address] [place] [address] Encounter for adjustment or management of cardiac [...] (HCC) documented in this encounter Care Teams Computer Education Teacher Relationship Specialty Start Date End Date Linh Doty, 8 [facility] [address] [place] [address] PCP - General Family Medicine 11/04/22 Lizzie Alves PA-C 1401 [facility], [facility] [address] [place] [address] Hospitalist Cardiology 05/27/23 Kaushik Mariscal MD [address] [facility] [address] [place] [address] Preschool Teacher Aide Electrophysiology 11/18/23 documented as of this encounter
--- OUTSIDE RECORDS SUMMARY | 2024-11-17 03:00 | XMS_ITS | Encounter Summary ---
Author Organization [employer] ([place], [place], [place], [place]) Address [address] [place] [address] Care Team Providers Care Diffuser Operator Name Role Phone Lalitha Linh Delilah DAVIS Primary Care Provider [phone] Lizzie Alves PA-C Unavailable [phone] Kaushik Mariscal MD Unavailable Reason for Visit * Reason Comments Pacemaker /ICD Home Monitoring Encounter Details Date Type Department Care Team (Late st Contact Info) Description 11/17/2024 3:00 AM EDT Clinical Support [facility] Electrophysiology [address] [place] [address] Kaushik Mariscal MD 1401 [facility] [address] [place] [address] Encounter for adjustment or management of cardiac [...] (HCC) documented in this encounter Care Teams Diffuser Operator Relationship Specialty Start Date End Date Linh Doty, 8 [facility] [address] [place] [address] PCP - General Family Medicine 11/04/22 Lizzie Alves PA-C 1401 [facility], [facility] [address] [place] [address] Hospitalist Cardiology 05/27/23 Kaushik Mariscal MD [address] [facility] [address] [place] [address] Tire Assembler Electrophysiology 11/18/23 documented as of this encounter
--- OUTSIDE RECORDS SUMMARY | 2024-12-07 16:16 | XMS_ITS | Encounter Summary ---
Author Organization [facility] Address [address] [place] [address] Care Team Providers Care Cardiopulmonary Technician Name Role Phone Felicitas Melara APRN Primary Care Provider [phone] Reason for Referral * Consultation (Routine) - Authorized Specialty Diagnoses / Procedures Referred By Contrené tirado Referred To Contact Nephrology Diagnoses Kidney disease Kay Rao MD [address] [place] [address] [place] [address] Phone: tel: fax: [facility] Nephrology, Bone & Mineral Metabolism [address], [address] [place] [address] Phone: tel: fax: Referral ID Status Reason Start Date Expiration Date Visits Requested Visits Authorized [id number] Authorized Specialty Services Required 10/18/2024 04/19/2026 1 1 Encounter Details Date Type Department Care Team (Late st Contact Info) Description 10/18/2024 Community Orders Community [facility] [address] [place] [address] Kay Rao MD [address] [place] [address] [place] [address] Chronic kidney disease (CKD) stage G3a/A1, [...] Recorded Patient Health Questionnaire-2 Score 0 05/30/2024 [facility] - Occupational Stress [...] Care Team (Late st Contact Info) Description 12/14/2024 1:00 PM EST Office Visit [facility] Nephrology, Bone & Mineral Metabolism [address], [address] [place] [address] Prabhu Brown MD [address] [place] [address] Scheduled Referrals Name Type Priority [...] documented as of this encounter Care Teams Cardiopulmonary Technician Relationship Specialty Start Date End Date Felicitas Melara APRN [address] [place] [address] PCP - General 01/29/24 documented as of this encounter
--- OUTSIDE RECORDS SUMMARY | 2024-12-07 16:16 | XMS_ITS | Encounter Summary ---
Author Organization [employer] ([place], [place], [place], [place]) Address [address] [place] [address] Care Team Providers Care Director Of Religious Life Name Role Phone Linh Doty DO Primary Care Provider [phone] Lizzie Alves PA-C Unavailable [phone] Kaushik Mariscal MD Unavailable Encounter Details Date Type Department Care Team (Late st Contact Info) Description 11/23/2018 Transcribed Document [facility] Family Medicine [facility] [place] [address] ProviderChad MD [address] [place] [address] Social History Tobacco Use Types Packs/Day [...] 11/23/2018 8:12 EDT Electronically signed by Rekha [facility] [employer]version D[employer] Stand Loader Cerner at 05/27/2022 9:25 PM CDT documented in this encounter Plan of Treatment Not on file documented as of this encounter Visit Diagnoses Not on filedocumented in this encounter Care Teams Director Of Religious Life Relationship Specialty Start Date End Date Linh Doty, [address] [facility] [address] [place] [address] PCP - General Family Medicine 11/04/22 Lizzie Alves PA-C [address] [place] [address], [facility] [address] [place] [address] Hospitalist Cardiology 05/27/23 Kaushik Mariscal MD [address] [facility] [address] [place] [address] Rental Agent Electrophysiology 11/18/23 documented as of this encounter
--- OUTSIDE RECORDS SUMMARY | 2024-12-07 16:16 | XMS_ITS | Data Portability ---
Author Organization [place] - [facility] & JAMES Faria ADMIN Address [address] [place] [address] Care Team Providers Care Fnps Name Role Phone PHONG WILLIAM Referring Provider [phone] Assessment Encounter Date Assessment Date Assessment LastModified [...] __ __ __ __ __ _ GISELLE: [id number] I have reviewed patient's GISELLE report prior [...] the risk of withdrawal and the differences. [email or web address] Not available 08/26/2022 09:40:08 09/29/2022 09/29/2022 Mrs. [...] __ __ __ __ __ _ GISELLE: [id number] I have reviewed patient's GISELLE report prior [...] of withdrawal and the differences. Not available 09/29/2022 16:19:40 11/24/2022 11/24/2022 Mrs. [...] reports she [facility] [employer] [facility] which she has been unable to do for a long time. She is complaining of thoracic and lumbar pain with BLE radicular pain to the calf. No trauma or injury. 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 It is worse with standing and walking, [...] __ __ __ __ __ _ GISELLE: [id number] I have reviewed patient's GISELLE report prior [...] the risk of withdrawal and the differences. [email or web address] Not available 11/24/2022 16:34:20 01/12/2023 01/12/2023 Telehealth visit is being conducted from [facility] [place] [address]. This was a real-time clinical encounter over [cox south.sd ]. Consent was obtained to engage in [...] or injury. She has had this pain custodial. It is worse with standing and walking, [...] __ __ __ __ __ _ GISELLE: 79456831 I have reviewed patient's GISELLE report prior [...] Plavix managed by cardiology (Dr. Mariscal at [facility]). The patient has a history of COPD [...] __ __ __ __ __ _ GISELLE: [id number] I have reviewed patient's GISELLE report prior [...] the risk of withdrawal and the differences. [email or web address] Not available 03/30/2023 15:36:52 Plan of Treatment Reminders Order Date Submit Date Provider Last Modified By Organization Details Last Modified Time Details Appointments None recorded. Lab drug screen, urine 2023 024 [email or web address] [address] [place] [address] Dr [place], [place], [address], 4 12:12:09 Referral None recorded. Procedures injection , single, diagnosti c or therapeut ic substance , lumbar, sacral (PROC) - 38489, LEI L5-S1 2023 024 [email or web address] Justin Andres, [address] [place], [address], 4 09:24:03 epidural steroid injection , cervical interlami yg (PROC) - 88495, C7-T1 2022 023 [email or web address] Not available 3 08:27:26 epidural steroid injection , cervical interlami yg (PROC) - 99740, C7-T1 2022 023 [email or web address] Not available 3 13:39:39 Surgeries None recorded. Imaging XR, lumbar spine, 2 view 2022 023 [facility] (Scheduling), [address] [place], [address], 3 16:10:33 XR, thoracic spine, 2 view 2022 023 [email or web address] [facility] (Scheduling), [address] [place], [address], 3 11:03:12 Medication Orders gabapenti n 600 mg tablet 2023 024 [facility], [address] [place] [address] [address] [place], [id number], 4 16:34:26 hydrocodo ne 5 mg-acetam inophen 325 mg tablet 2023 024 [facility], [address] [place] [address] [address] [place], [id number], 4 15:59:57 hydrocodo ne 5 mg-acetam inophen 325 mg tablet 2022 023 [facility], [address] [place] [address] [address], [place], [id number], 3 16:06:54 hydrocodo ne 5 mg-acetam inophen 325 mg tablet 2022 023 [facility], [address] [place] [address] [address], [place], [id number], 4 16:06:54 gabapenti n 600 mg tablet 2022 023 [facility], [address] [place] [address] [address], [place], [id number], 4 16:36:42 hydrocodo ne 5 mg-acetam inophen 325 mg tablet 2022 023 [facility], [address] [place] [address] [address] [place], [id number], 3 13:07:24 hydrocodo ne 5 mg-acetam inophen 325 mg tablet 2022 023 [facility], [address] [place] [address] [address], [place], [id number], 3 16:15:43 hydrocodo ne 5 mg-acetam inophen 325 mg tablet 2022 023 [facility], [address] [place] [address] [address] [place], [id number], 3 16:35:06 hydrocodo ne 5 mg-acetam inophen 325 mg tablet 2022 023 [facility], [address] [place] [address] [place], [id number], 14:33:16 gabapenti n 600 mg tablet 2022 023 [facility], [address] [place] [address] [place], [id number], 16:58:13 Patient TargetsNo targets recorded. Patient InstructionsNo instructions recorded. Reason for Referral None Reported. Results Created Date Observation Date Name Description Value Unit Range Abnormal Flag Note LastModifiedBy Organization Detail LastModifiedTime 03/30/1903/30/2023 drug scree n, urine Amphetamines negati ve Not Available [facility] [address] [place] [address] [place], [address], 03/30/2023 15:15:37 03/30/19 24 03/30/2023 drug scree n, urine Barbiturates negati ve Not Available [facility] [address] [place] [address] [place], [address], 03/30/2023 15:15:37 03/30/19 24 03/30/2023 drug scree n, urine Buprenorphin e negati ve Not Available [facility] [address] [place] [address] [place], [id number], 03/30/2023 15:15:37 03/30/19 24 03/30/2023 drug scree n, urine Benzodiazepi dion negati ve Not Available [facility] [address] [place] [address] [place], [address], 03/30/2023 15:15:37 03/30/19 24 03/30/2023 drug scree n, urine Cocaine negati ve Not Available [facility] [address] [place] [address] [place], [address], 03/30/2023 15:15:37 03/30/19 24 03/30/2023 drug scree n, urine Methamphetam ine negati ve Not Available [facility] [address] [place] [address] Dr Franks, [place], [address], 03/30/2023 15:15:37 03/30/19 24 03/30/2023 drug scree n, urine Ecstasy negati ve Not Available [facility] [address] [place] [address] [place], [address], 03/30/2023 15:15:37 03/30/19 24 03/30/2023 drug scree n, urine Methadone negati ve Not Available [facility] [address] [place] [address] [place], [address], 03/30/2023 15:15:37 03/30/19 24 03/30/2023 drug scree n, urine Morphine/ Opiates negati ve Not Available [facility] [address] [place] [address] [place], [address], 03/30/2023 15:15:37 03/30/19 24 03/30/2023 drug scree n, urine Phencyclidin e negati ve Not Available [facility] [address] [place] [address] [place], [address], 03/30/2023 15:15:37 03/30/19 24 03/30/2023 drug scree n, urine Oxycodone negati ve Not Available [facility] [address] [place] [address] [place], [address], 03/30/2023 15:15:37 03/30/19 24 03/30/2023 drug scree n, urine Marijuana negati ve Not Available [facility] [address] [place] [address] [place], [address], 03/30/2023 15:15:37 Result Notes None recorded. Problems Name Problem SNOMED Code Status Onset Date Resolution Date Notes Provider Name and Address Organization Details Recorded Time Bilateral osteoarthr itis of knees 3961095934007 07 Active 2021 Not Available [facility] 4 19:02:55 Pain of bilateral knee regions 4752636988654 02 Active 2021 Not Available [facility] 4 19:02:55 Low back pain 058474812 Active 2021 Not Available [facility] 4 19:02:55 Chronic obstructiv e pulmonary disease 73668230 Active 2021 Not Available [facility] 4 19:02:55 Nicotine dependence 41261964 Active 2021 Not Available [facility] 4 19:02:55 Cardiac pacemaker procedure Active 2021 Not Available [facility] 4 19:02:55 Radicular pain 11476579 Active 2021 Not Available [facility] 4 19:02:55 Neck pain 04625479 Active 2022 Not Available [facility] 4 19:02:55 Pain in right arm 038511503 Active 2022 Not Available [facility] 4 19:02:55 Neuropathi c pain 892895230 Active 2022 Not Available [facility] 4 19:02:55 Spinal stenosis in cervical region 25141666 Active 2022 Not Available [facility] 4 19:02:55 Stenosis of spinal 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 Medical [...] Updated DateTime 4 167.64 cm 25.2 kg/m2 69279.4 1 g 98 [degF] 92 % 92 % 100 /min 167/106 mm[Hg] Kelsi Grossman [facility] & [place] 4 14:20:33 Date Recorded Body height Body mass index (BMI) Body weight Body temperature Oxygen saturation Oxygen saturation in Arterial blood by Pulse oximetry Heart rate Respiratory rate Systolic And Diastolic Provider Name and Address Organization Details Last Updated DateTime 3 167.64 cm 22.9 kg/m2 08815.1 2 g 97.7 [degF] 84 % 84 % 92 /min 24 /min 129/83 mm[Hg] Michaela FELICIANO [facility] & [place] 3 16:13:48 Date Recorded Body height Body mass index (BMI) Body weight Body temperature Oxygen saturation Oxygen saturation in Arterial blood by Pulse oximetry Heart rate Systolic And Diastolic Provider Name and Address Organization Details Last Updated DateTime 3 167.64 cm 22.9 kg/m2 42071.4 g 97.4 [degF] 90 % 90 % 98 /min 146/94 mm[Hg] Martha FELICIANO [facility] & [place] 3 15:22:01 Date Recorded Body height Oxygen saturation Oxygen saturation in Arterial blood by Pulse oximetry Body temperature Body mass index (BMI) Body weight Provider Name and Address Organization Details Last Updated DateTime 3 167.64 cm 85 % 85 % 98.2 [degF] 22.8 kg/m2 82551.5 2 g Martha FELICIANO [facility] & [place] 3 16:01:38 Date Recorded Body height Provider Name an d Address Organization Details Last Updated DateTime 01/12/2023 167.64 cm Kelsi Savage [facility] & [place] 01/12/2023 10:51:45 Social History None recorded. Functional Status None recorded. Mental Status None recorded. Family History Nothing Reported. Medical History No medical history recorded. Gynecological HistoryNo gynecological history recorded. Obstetrics History GPAL:G 0 P 0 0 0 0 Past Encounters Encounter ID Performer Location Encounter Start Date Encounter Closed Date Diagnosis/Indication Diagnosis SNOMED-CT Code Diagnosis ICD10 Code Diagnosis IMO Codes Diagnosis Note [id number] Justin Andres MD [facility] [address] [address] 11/19/2021 11:47:34 11/19/2021 12:32:16 Bilateral osteoarthritis of knees 9022263815 07380 M17.0 Pain of bi lateral knee regions 6453114253 26346 M25.561 M25.562 Low back pain 134013907 M54.50 Radicular pain 36243559 M54.10 [id number] Justin Andres MD [facility] [address] [place] [address] [place] [address] 12/16/2021 14:22:03 12/16/2021 16:13:15 Bilateral osteoarthritis of knees 5728658179 18283 M17.0 Pain of bi lateral knee regions 7593207363 54587 M25.561 M25.562 Low back pain 658287276 M54.50 Radicular pain 63677034 M54.10 [id number] Justin Andres MD [facility] [address] [place] [address] [place] [address] 01/27/2022 14:39:34 01/27/2022 14:41:02 Bilateral osteoarthritis of knees 8420885688 73436 M17.0 Pain of bi lateral knee regions 6950028800 22386 M25.561 M25.562 Low back pain 311015159 M54.50 Radicular pain 34164078 M54.10 [id number] Justin Andres MD [facility] [address] [place] [address] [place] [address] 02/25/2022 08:32:14 02/25/2022 09:58:50 Bilateral osteoarthritis of knees 9965507753 61698 M17.0 Pain of bi lateral knee regions 7451275359 71948 M25.561 M25.562 Low back pain 533708180 M54.50 Radicular pain 93231317 M54.10 [id number] Justin Andres MD [facility] [address] [place] [address] [place] [address] 03/17/2022 12:17:51 03/17/2022 12:22:07 Bilateral osteoarthritis of knees 3023520521 64404 M17.0 Pain of bi lateral knee regions 3473927655 44964 M25.561 M25.562 Low back pain 056256352 M54.50 Radicular pain 14257316 M54.10 [id number] Justin Andres MD [facility] [address] [place] [address] [place] [address] 05/12/2022 11:37:32 05/12/2022 12:17:04 Bilateral osteoarthritis of knees 0301126879 44435 M17.0 Pain of bi lateral knee regions 2809661829 47285 M25.561 M25.562 Low back pain 858855636 M54.50 Radicular pain 74846091 M54.10 Neck pain 13976001 M54.2 Pain in right arm 426112 004 M79.601 Neuropathic pain 5072587 09 M79.2 [id number] Justin Andres MD [facility] [address] [place] [address] [place] [address] 06/09/2022 09:26:46 06/09/2022 11:32:40 Bilateral osteoarthritis of knees 1113703694 05139 M17.0 Pain of bi lateral knee regions 5827906533 24054 M25.561 M25.562 Low back pain 493378824 M54.50 Radicular pain 75002305 M54.10 Neck pain 45131110 M54.2 Pain in right arm 103155 004 M79.601 Neuropathic pain 7281275 09 M79.2 [id number] Justin Andres MD [facility] [address] [place] [address] [place] [address] 07/14/2022 15:03:41 07/14/2022 16:33:25 Bilateral osteoarthritis of knees 7946499994 09778 M17.0 Pain of bi lateral knee regions 5539323774 98828 M25.561 M25.562 Low back pain 727571807 M54.50 Radicular pain 67717355 M54.10 Neck pain 11073766 M54.2 Pain in right arm 654428 004 M79.601 Neuropathic pain 0403560 09 M79.2 [id number] Justin Andres MD [facility] [address] [place] [address] [place] [address] 08/25/2022 15:06:33 08/27/2022 09:08:30 Bilateral osteoarthritis of knees 1659012613 81424 M17.0 Pain of bi lateral knee regions 4724077351 31459 M25.561 M25.562 Low back pain 633212067 M54.50 Radicular pain 95172892 M54.10 Neck pain 46337893 M54.2 Pain in right arm 066514 004 M79.601 Neuropathic pain 4153621 09 M79.2 Spinal davi nosis in cervical region 26891544 M99.51 [id number] Justin Andres MD [facility] [address] [place] [address] [address] [place], [place] [address] 09/29/2022 14:45:52 09/29/2022 15:26:15 Bilateral osteoarthritis of knees 4395717578 59599 M17.0 Pain of bi lateral knee regions 9501561874 90910 M25.561 M25.562 Low back pain 712147363 M54.50 Radicular pain 69576316 M54.10 Neck pain 46598099 M54.2 Pain in right arm 628112 004 M79.601 Neuropathic pain 9020416 09 M79.2 Spinal davi nosis in cervical region 72128753 M99.51 [id number] Justin Andres MD [facility] [address] [place] [address] [place] [address] 11/24/2022 15:13:54 11/24/2022 16:10:34 Bilateral osteoarthritis of knees 6275010301 20505 M17.0 Pain of bi lateral knee regions 8861483669 52495 M25.561 M25.562 Low back pain 886957039 M54.50 Radicular pain 99440322 M54.10 Neck pain 74437991 M54.2 Pain in right arm 449196 004 M79.601 Neuropathic pain 6830250 09 M79.2 Spinal davi nosis in cervical region 38266837 M99.51 Stenosis o f spinal canal due to intervertebral disc 647161137 M99.59 [id number] Justin Andres MD [facility] [address] [place] [address] 01/12/2023 10:48:01 01/12/2023 12:59:31 Bilateral osteoarthritis of knees 0480377585 75009 M17.0 Pain of bi lateral knee regions 0866929614 42424 M25.561 M25.562 Low back pain 601326963 M54.50 Radicular pain 81398507 M54.10 Neck pain 84636331 M54.2 Pain in right arm 566739 004 M79.601 Neuropathic pain 5045086 09 M79.2 Spinal davi nosis in cervical region 76643426 M99.51 Stenosis o f spinal canal due to intervertebral disc 134000218 M99.59 [id number] Justin Andres MD [facility] [address] [place] [address] [place] [address] 03/30/2023 13:08:28 03/30/2023 14:22:53 Bilateral osteoarthritis of knees 2874874307 08928 M17.0 Pain of bi lateral knee regions 5394769395 90364 M25.561 M25.562 Low back pain 164239571 M54.50 Radicular pain 74437245 M54.10 Neck pain 91555104 M54.2 Pain in right arm 371924 004 M79.601 Neuropathic pain 3808284 09 M79.2 Spinal davi nosis in cervical region 24486592 M99.51 Stenosis o f spinal canal due to intervertebral disc 044294632 M99.53 Opioid dependence 859208 00 F11.20 Fall W19.XXXA Health Concerns Section Related Observation LastModified by Organization Detai ls LastModified Time None Recorded Concern Status LastModified by Organization Details LastModified Time None Recorded Advance Directives Directive None Recorded Payers Insurance Date Sequence Insurance Name Policy Number Policy Harding Covered Member ID Harding Member ID Guarantor Name 08/29/2023 1 [facility] (MEDICARE REPLACEMENT/ ADVANTAGE - HMO) Lena Chandler [id number] Lena Chandler Notes Date Note Type Note [...] Lumbar InjectionsImaging/Studie s: None Justin Muniswamy, MD [address] [facility], [place], [address], [place] [facility] [place] 08/27/2022 14:45:45 3 text/html ROS as noted [...] Lumbar InjectionsImaging/Studie s: None Justin Andres MD [address] [facility], [place], [address], [place] [facility] [place] 10/01/2022 08:42:38 3 text/html ROS as noted [...] reports she was able to go to [place] [facility] with her this past weekend which she has been unable to do for a long time. She is complaining of thoracic and lumbar pain with BLE radicular pain to the calf. No trauma or injury. She has had this pain custodial. It is worse with standing and walking, [...] Lumbar InjectionsImaging/Studie s: None Justin Andres MD [address] [facility], [place], [address], [facility] - [place] 11/26/2022 11:29:36 3 text/html ROS as noted [...] reports she was able to go to [place] and [facility] with her this past weekend which she has been unable to do for a long time. She is complaining of thoracic and lumbar pain with BLE radicular pain to the calf. No trauma or injury. She has had this pain custodial. It is worse with standing and walking, [...] InjectionsImaging/Studie s: None Justin Andres MD [address] [facility], [place], [address], [facility] [place] [facility] [place] 01/13/2023 21:55:52 4 text/html ROS as noted [...] InjectionsImaging/Studie s: None Justin Andres MD [address] [facility], [place], [address], [facility] - [place] 04/01/2023 14:43:21 OBGyn Episode No OBEpisode recorded.
--- OUTSIDE RECORDS SUMMARY | 2024-12-07 16:16 | XMS_ITS | Encounter Summary ---
Author Organization [employer] ([place], [place], [place], [place]) Address [address] [place] [address] Worker Name Role Phone Linh William DO Primary Care Provider [phone] Lizzie Alves PA-C Unavailable [phone] Kaushik Mariscal MD Unavailable Encounter Details Date Type Department Care Team (Late st Contact Info) Description 11/23/2018 Transcribed Document [facility] Count includes the [facility] [address] ProviderChad MD [address] [place] [address] Social History Tobacco Use Types Packs/Day [...] Merchant MD - 11/23/2018 1:18 PM CDT [facility] 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 4. Start plavix tomorrow. 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 Follow-Up Appointments Follow Up with GON[facility] When Within 2 to 4 weeks Medications What How Much When Instructions Next Dose clopidogrel (Plavix 75 mg oral tablet) 1 Tablet(s) Oral Every Day Refills: 6 Pickup at [place], [place] varenicline (Chantix 1 mg oral tablet) 1 Tablet(s) Oral Two Times A Day after meals Pickup at [facility] [place], [place] varenicline (Chantix Starter Pack 0.5 mg-1 mg oral tablet) 1 Tablet(s) Oral Two Times A Day as directed on package labeling Pickup at [place], [place] acetaminophen (Tylenol) Oral As needed for [...] Oral Two Times A Day Pharmacy Information [facility] - [place]: [address] [facility] [address] [place] [phone] Take your medications faithfully. Do NOT skip [...] Document Reviewed: 02/28/2011 ExitCare?? Patient Information ??2014 [employer]. Cerebral Angiogram, Care After This sheet gives [...] and water are not available, use hand compressor operator portable. ? Change your dressing as told by [...] contrast dye from your body. ??? Take hxwc-wnk-iyyvzzz and prescription medicines only as told by [...] you are awake and alert. ??? Take ddif-xge-jomdlgl and prescription medicines only as told by [...] 05/17/2016 Elsevier Interactive Patient Education ?? 2019 [employer] Emergency Awareness and Preventative Care STROKE [...] Assistance with quitting is available by contacting 3-735-PKDRNOW. This is a free resource providing counseling, support, and referral. Or you may contact your personal physician. [employer] Suicide Prevention Lifeline: The National Suicide Prevention [...] was given the opportunity to ask questions. Patient/Food Service Attendant Name: Patient/Food Service Attendant Signature: Relationship to Patient: Clinician/Hospital Food Service Attendant Signature: Date: documented in this encounter Plan of Treatment Not on file documented as of this encounter Visit Diagnoses Not on filedocumented in this encounter Care Teams Drive Worker Relationship Specialty Start Date End Date Linh William, DO [address] [facility] [address] [place] [address] PCP - General Family Medicine 11/04/22 Lizzie Alves PA-C [address] [place] [address], [facility] [address] [place] [address] Hospitalist Cardiology 05/27/23 [place] [address] [place] [address] [address] [place] [address] Entrepreneur Electrophysiology 11/18/23 documented as of this encounter
--- OUTSIDE RECORDS SUMMARY | 2024-12-07 16:16 | XMS_ITS | Encounter Summary ---
Author Organization [employer] ([place], [place], [place], [place]) Address [address] [place] [address] Care Team Providers Care Associate Professor Of Kinesiology Name Role Phone Linh Doty DO Primary Care Provider [phone] Lizzie Alves PA-C Unavailable [phone] Kaushik Mariscal MD Unavailable Encounter Details Date Type Department Care Team (Late st Contact Info) Description 11/23/2018 Transcribed Document [facility] [place] [facility] [place] [address] ProviderChad MD [address] [place] [address] Social History Tobacco Use Types Packs/Day [...] Document Reviewed: 02/28/2011 ExitCare? Patient Information ?2013 ShopItToMe. Cerebral Angiogram, Care After This sheet gives [...] and water are not available, use hand explosive man. ? Change your dressing as told by [...] contrast dye from your body. ??? Take nlcy-jin-mvzvszu and prescription medicines only as told by [...] 06/12/2014 Document Revised: 03/02/2017 Document Reviewed: 03/02/2017 ElseBellhops Interactive Patient Education ? 2019 Elsevier Inc. [...] you are awake and alert. ??? Take gjeq-qsw-kjoxawu and prescription medicines only as told by [...] 11/16/2013 Document Revised: 06/30/2016 Document Reviewed: 05/17/2016 [employer] Interactive Patient Education ? 2019 [employer]. documented in this encounter Plan of Treatment Not on file documented as of this encounter Visit Diagnoses Not on filedocumented in this encounter Care Teams Associate Professor Of Kinesiology Relationship Specialty Start Date End Date Linh Doty, DO 8 [facility] [address] [place] [address] PCP - General Family Medicine 11/04/22 Lizzie Alves PA-C 1401 [facility], [facility] [address] [place] [address] Hospitalist Cardiology 05/27/23 Kaushik Mariscal MD 1401 [facility] [address] [place] [address] Rolling Down Machine Operator Electrophysiology 11/18/23 documented as of this encounter
--- OUTSIDE RECORDS SUMMARY | 2024-12-07 16:16 | XMS_ITS | Encounter Summary ---
Author Organization [employer] ([place], [place], [place], [place]) Address [address] [place] [address] Care Team Providers Care Dumper Name Role Phone Lalitha Linhkarthikeyan Mazariegos DO Primary Care Provider [phone] Lizzie Alves PA-C Unavailable [phone] Kaushik Mariscal MD Unavailable Encounter Details Date Type Department Care Team (Late st Contact Info) Description 11/23/2018 Transcribed Document [facility] [place] [address] ProviderChad MD [address] [place] [address] Social History Tobacco Use Types Packs/Day [...] Source : Stated Height Entry Format : [place] Height, Feet : 0 ft(Converted to: 0 cm, 0 Inch) Height, Inches : 70 Inch(Converted to: 5 ft 10 Inch, 177.80 cm) Clinical Height : 177.8 cm Weight Source : Standing scale Weight Entry Format : [place] Clinical Dosing Weight : 77.27 kg Weight, Pounds : 170 lb Body Surface Area (BSA) : 1.95 m2 Body Mass Index : 24.4 kg/m2 ([place]) [place] Body Weight : 68 kg ELAINE CHOI RN - 11/23/2018 7:39 EDT Health Histories Smoking Status : 10 or more cigarettes (1/2 pack or more)/day in last 30 days Smokeless Tobacco Status : Never Desires Tobacco Cessation Medication : No Reason for No Tobacco Cessation Medication : Refuses FDA approved medications ELAINE COHI RN - 11/23/2018 7:39 EDT Social History [...] : No Emergency Contact #1 : Alexx- [phone]- cell number Emergency Contact #1 Phone Number : boyfriend. Emergency Contact #1 Relationship : - Emergency Contact #2 : - Emergency Contact #2 Phone Number : - Emergency Contact #2 Relationship : - Primary Language : Russian Communication Barrier : None ELAINE CHOI RN [...] Scale Risk Level : 0-24 Low Risk [place] Fall Interventions : Wheels locked ELAINE CHOI [...] on filedocumented in this encounter Care Teams Dumper Relationship Specialty Start Date End Date Linh Doty, [address] [place] [address] PCP - General Family Medicine 11/04/22 Lizzie Alves PA-C [address] [place] , [facility] [address] [place] [address] Hospitalist Cardiology 05/27/23 Kaushik Mariscal MD 1401 [facility] [place] [address] Grades 9 12 Tutor Electrophysiology 11/18/23 documented as of this encounter
--- OUTSIDE RECORDS SUMMARY | 2024-12-07 16:16 | XMS_ITS | Encounter Summary ---
Author Organization [employer] ([place], [place], [place], [place]) Address [address] [place] [address] Care Team Providers Care Deputy Court Name Role Phone Linh Doty DO Primary Care Provider Lizzie Alves PA-C Unavailable [phone] Kaushik Mariscal MD Unavailable Encounter Details Date Type Department Care Team (Late st Contact Info) Description 11/23/2018 Transcribed Document [facility] [place] [facility] [place] [address] ProviderChad MD [address] [place] [address] Social History Tobacco Use Types Packs/Day [...] 11/23/2018 13:33 EDT Electronically signed by Rekha [facility] Conversion Risk Consultant Cerner at 05/27/2022 9:20 PM CDT documented in this encounter Plan of Treatment Not on file documented as of this encounter Visit Diagnoses Not on filedocumented in this encounter Care Teams Deputy Court Relationship Specialty Start Date End Date Linh Doty, DO 8 [facility] [address] [place] [address] PCP - General Family Medicine 11/04/22 Lizzie Alves PA-C [address] [place] [address], [facility] [address] [place] [address] Hospitalist Cardiology 05/27/23 Kaushik Mariscal MD 1401 [facility] [address] [place] [address] Sql Server Dba Electrophysiology 11/18/23 documented as of this encounter
--- OUTSIDE RECORDS SUMMARY | 2024-12-07 16:16 | XMS_ITS | Clinical Summary ---
Author Organization [facility] Address [address] [place] [address] Phone Care Team Providers Care Optician Manager Name Role Phone Fracisco DALTON, Gilson Begum Unavailable [ ] Conditions or Problems Problem Name Problem Code Onset Date Status Entry Date Provider Comment Standard Description Annotate Dermatitis due to drug AND/OR medicine taken internally 86166287 (SNOMED CT) 08/21 Active 08/21 Gilson Yap [...] subsequent encounter Cellulitis/wo und infection, chest wall 93991535 (SNOMED CT) 07/26 Active 07/26 Sherri Herndon Cellulitis of chest wall Ischemic Cardiomyopath y 676841483 (SNOMED CT) 07/26 Active 07/26 Sherri Herndon Generalized ischemic myocardial dysfunction Nicotine dependence, cigarettes 32628228 (SNOMED CT) 07/26 Active 07/26 Sherri Herndon Cigarette smoker COPD 70484945 (SNOMED CT) 07/26 Active 07/26 Sherri Herndon Chronic obstructive pulmonary disease Acute respiratory failure with hypoxia 78339042 (SNOMED CT) 07/26 Active 07/26 Sherri Herndon Acute respiratory failure Hypoalbuminem ia 865550278 (SNOMED CT) 07/26 Active 07/26 Sherri Herndon Hypoalbuminemia Hypocalcemia 5590878 ([facility] CT) 07/26 Active 07/26 Sherri Herndon Hypocalcemia Thrombocytope delia, secondary D69.59 (ICD-10-CM ) 07/26 Active 07/26 Sherri Herndon Other secondary thrombocytopenia Hyponatremia 10127733 ([facility] CT) 07/26 Active 07/26 Sherri Herndon Hyponatremia Medications Medication Instructions Start Date Stop Date Generic Name NDC Provider HYDROCODONE-ROSE TAMINOPHEN 5-325 MG TABS 1 Tab, as needed, Oral, every 8 hours hydrocodone-aceta minophen 13767836084 Faina Lamas CARVEDILOL 12.5 MG TABS 1 Tab, Oral, twice a day carvedilol 64835350083 Faina Lamas CEFDINIR 300 MG CAPS 1 Cap, Oral, every 12 hours cefdinir 48766981619 Faina Lamas DOXYCYCLINE HYCLATE 100 MG CAPS 1 Cap, Oral, twice a day doxycycline hyclate 34936293047 Faina Lamas FLORASTOR 250 MG CAPS 1 Cap, Oral, twice a day saccharomyces boulardii 21824656083 Faina Lamas FLUTICASONE PROPIONATE 50 MCG/ACT SUSP 2 [place], as needed, Nasal, Daily fluticasone propionate 72172378415 Faina Lamas FOLIC ACID 1 MG TABS 1 Tab, Oral, Daily folic acid 76248238954 Faina Lamas FUROSEMIDE 20 MG TABS 1 Tab, Oral, Daily furosemide 30813615508 Faina Lamas GABAPENTIN 600 MG TABS 1 Tab, Oral, three times a day gabapentin 98789210891 Faina Lamas LISINOPRIL 20 MG TABS 1 Tab, Oral, At Bedtime lisinopril 58465882854 Faina Lamas NICOTINE STEP 1 21 MG/24HR PT24 1 Patch, TransDermal, Daily nicotine 06578989797 Faina Vossuelalessia Lamas PANTOPRAZOLE SODIUM 40 MG TBEC 1 Tab, Oral, Daily pantoprazole 26804756547 Faina Du Lamas POTASSIUM CHLORIDE ER 20 MEQ CR-TABS 1 Tab, Oral, Daily potassium chloride 33685374804 Fainacandice Vossuelalessia Lamas TOPIRAMATE 25 MG TABS 1 Tab, Oral, At Bedtime topiramate 19739029932 Faina CantuHammad Lamas VITAMIN D (ERGOCALCIFEROL ) 1.25 MG (62725 UT) CAPS 1 Cap, Oral, Weekly ergocalciferol (vitamin d2) 37379558885 Fainacandice Lamas Medications Administered No information available. Allergies, Adverse [...] Name Date Entry Date CPT-sl STAT Labs CPT-98289 CMP [id number] CBC with Differential 2021 CPT-36269 C- reactive protein CPT-Cooral Continue oral antibiotics [...]
--- OUTSIDE RECORDS SUMMARY | 2024-12-07 16:16 | XMS_ITS | Clinical Summary ---
Author Organization [facility] Address [address] [place] [id number] Care Team Providers Care Employment Legal Assistant Name Role Phone Provider, No Known Primary [...] - Td or Tdap) 01/29/2031 021 Insurance [facility] MEDICARE REPLACEMENT Care Teams Employment Legal Assistant Relationship Specialty Start Date End Date Provider, No Known [facility] [place] [address] PCP - General 07/31/21
--- OUTSIDE RECORDS SUMMARY | 2024-12-07 16:16 | XMS_ITS | Encounter Summary ---
Author Organization [employer] ([place], [place], [place], [place]) Address [address] [place] [address] Care Team Providers Care Vamp Cut Out Worker Name Role Phone Linh Doty DO Primary Care Provider [phone] Lizzie Alves PA-C Unavailable [phone] Kaushik Mariscal MD Unavailable Reason for Referral * Echocardiography (Routine) - Closed Specialty Diagnoses / Procedures Referred By Contac t Referred To Contact Diagnoses Nonspecific abnormal electrocardiogram (ECG) (EKG) Disease of cardiovascular system Essential hypertension, malignant Procedures ECHO COMPLETE (DOPPLER / COLOR) W OR WO CONTRAST Lenka Benavidez MD [address] [place] [address] Phone: tel: fax: Referral ID Status Reason Start Date Expiration Date Visits Re quested Visits Authorized [id number] Closed 11/05/2021 01/30/2022 1 1 Encounter Details Date Type Department Care Team (Late st Contact Info) Description 11/01/2021 Outside Orders [facility] Central Scheduling [address] [place] [address] Lenka Benavidez MD [address] [place], [place] [id number] Nonspecific abnormal electrocardiogram (ECG) (EKG) (Primary Dx); [...] malignant documented in this encounter Care Teams Vamp Cut Out Worker Relationship Specialty Start Date End Date Linh Doty, DO 8 [facility] [address] [place] [address] PCP - General Family Medicine 11/04/22 Lizzie Alves PA-C 1401 [facility], [facility] [address] [place] [address] Hospitalist Cardiology 05/27/23 Kaushik Mariscal MD 1401 [facility] [address] [place], [place] [id number] Revival Clerk Electrophysiology 11/18/23 documented as of this encounter
--- OUTSIDE RECORDS SUMMARY | 2024-12-07 16:16 | XMS_ITS | Encounter Summary ---
Author Organization [facility] Address [address] [place] [address] Care Team Providers Care Emergency Services Professional Name Role Phone Annette Melaranicaryl Mazariegos APRN Primary Care Provider [phone] Reason for Visit * Reason Onset Date Comments HCN - Patient Message 10/28/2024 Encounter Details Date Type Department Care Team ([facility] st Contact Info) Description 10/28/2024 Telephone [facility] Nephrology, Bone & Mineral Metabolism [address] [facility], [address] [place] [address] HCN - Patient Message Social [...] Recorded Patient Health Questionnaire-2 Score 0 05/30/2024 [facility] - Occupational Stress Questionnaire Answer [...] the past 12 months has th e [place], gas, oil, or water [employer] threatened to shut off services in your [...] told her that we do come to [place] but the next new pt appt availability is February 2025. So the current new patients have been coming to [place] for the first visit and then will up in [place] for the rest of the visits, shewas ok with getting it scheduled in [place]. I told her the appointment letter will [...] appt date & time. Best contact number: [phone] (mobile) Optimal time of day to reach caller: ANYTIME Additional comments/information from caller: None Note: Please do not reply to this message. Follow-up communication and further actions as a result of this message need to be communicated with the patient directly, if the patient is not active onMyChart. If the patient is active on MyChart, they will receive notification of the communication/outcome via Mailcloud. documented in this encounter Plan of Treatment Upcoming Encounters Date Type Department Care Team (Late st Contact Info) Description 12/14/2024 1:00 PM EST Office Visit [facility] Nephrology, Bone & Mineral Metabolism [address], [address] [place] [address] Prabhu Brown MD [address] [place] [phone] documented as of this encounter Visit Diagnoses Not on filedocumented in this encounter Additional Health Concerns Assessment Noted Time A fall risk assessment has been complete d for the patient 06/02/2024 1:58 PM EDT A Body Mass Index follow-up plan has been documented for the patient 06/02/2024 2:45 PM EDT documented as of this encounter Care Teams Emergency Services Professional Relationship Specialty Start Date End Date Felicitas Melara APRN [address] [place] [address] PCP - General 01/29/24 documented as of this encounter
--- OUTSIDE RECORDS SUMMARY | 2024-12-07 16:17 | XMS_ITS | Encounter Summary ---
Author Organization [employer] ([place], [place], [place], [place]) Address [address] [place] [address] Care Team Providers Care Humidifier Maintenance Worker Name Role Phone Linh Doty DO Primary Care Provider [phone] Lizzie Alves PA-C Unavailable [phone] Kaushik Mariscal MD Unavailable Reason for Visit * Reason Comments Medication Refill Encounter Details Date Type Department Care Team (Late st Contact Info) Description 04/27/2023 Refill [facility] Cardiology [address] [place] [address] Lenka Benavidez MD 1401 [facility] [address] [place] [address] Atherosclerotic heart disease of [place] coronary artery without angina pectoris; Personal history [...] Date Mendez rded Speak language other than Divehi at home Not on file 02/27/2023 Want [...] EDT Patient must be seen by Dr. eBnavidez for further refills. documented in this encounter Plan of Treatment Not on file documented as of this encounter Visit Diagnoses Diagnosis Atherosclerotic heart disease of [place] coronary artery without angina pectoris Personal history of other diseases of the circulatory system documented in this encounter Care Teams Humidifier Maintenance Worker Relationship Specialty Start Date End Date Linh Doty, 8 [facility] [address] [place] [address] PCP - General Family Medicine 11/04/22 Lizzie Alves PA-C 1401 [facility] [address] [place] [address] Hospitalist Cardiology 05/27/23 Kaushik Mariscal MD [address] [facility] [address] [place] [address] Police Patrol Officer Electrophysiology 11/18/23 documented as of this encounter
--- OUTSIDE RECORDS SUMMARY | 2024-12-07 16:17 | XMS_ITS | Encounter Summary ---
Author Organization [employer] ([place], [place], [place], [place]) Address [address] [place] [address] Care Team Providers Care Belt Builder Name Role Phone Linh Doty DO Primary Care Provider [phone] Lizzie Alves PA-C Unavailable [phone] Kaushik Mariscal MD Unavailable Reason for Visit * Reason Comments Medication Refill Encounter Details Date Type Department Care Team (Late st Contact Info) Description 04/20/2023 Refill [facility] Cardiology [address] [place] [address] Pedro Cruz NP 1401 [facility] [address] [place] [address] Acute coronary thrombosis not resulting in myocardial [...] Date Mendez rded Speak language other than Cymro at home Not on file 02/27/2023 Want [...] (HCC) documented in this encounter Care Teams Belt Builder Relationship Specialty Start Date End Date Linh Doty, 8 [facility] [address] [place] [address] PCP - General Family Medicine 11/04/22 Lizzie Alves PA-C [address] [place] [address], [facility] [address] [place] [address] Hospitalist Cardiology 05/27/23 Kaushik Mariscal MD 1401 [facility] [address] [place] [address] Hydrostatic Tubing Tester Electrophysiology 11/18/23 documented as of this encounter
--- OUTSIDE RECORDS SUMMARY | 2024-12-07 16:17 | XMS_ITS | Encounter Summary ---
Author Organization [employer] ([place], [place], [place], [place]) Address [address] [place] [address] Care Team Providers Care Proced Tech Name Role Phone Linh Doty DO Primary Care Provider Lizzie Alves PA-C Unavailable [phone] Kaushik Mariscal MD Unavailable Reason for Visit * Reason Comments Medication Refill Encounter Details Date Type Department Care Team (Late st Contact Info) Description 04/25/2023 Refill [facility] Cardiology [address] [place] [address] Lenka Benavidez MD [address] [facility] [address] [place] [address] Atherosclerotic heart disease of [place] coronary artery without angina pectoris; Personal history [...] Visit Diagnoses Diagnosis Atherosclerotic heart disease of [place] coronary artery without angina pectoris Personal history of other diseases of the circulatory system documented in this encounter Care Teams Proced Tech Relationship Specialty Start Date End Date Linh Doty, 8 [facility] [address] [place] [address] PCP - General Family Medicine 11/04/22 Lizzie Alves PA-C [address] [place] [address], [facility] [address] [place] [address] Hospitalist Cardiology 05/27/23 Kaushik Mariscal MD [address] [facility] [address] [place] [address] Strap Maker Electrophysiology 11/18/23 documented as of this encounter
--- OUTSIDE RECORDS SUMMARY | 2024-12-07 16:17 | XMS_ITS | Encounter Summary ---
Author Organization [facility] Address [address] [place] [address] Care Team Providers Care Plant Breeder Name Role Phone Felicitas Melara APRN Primary Care Provider [phone] Encounter Details Date Type Department Care Team (Late st Contact Info) Description 11/16/2024 Orders Only [facility] [address] [place] [id number] Myrna Zamorano Stage 3 chronic kidney disease, [...] Recorded Patient Health Questionnaire-2 Score 0 05/30/2024 [facility] - Occupational [...] the past 12 months has th e [employer], gas, oil, or water company threatened to shut off services in your home? No 06/02/2024 Comments No Sex and Gender Information Value Date Recorded Sex Assigned at Not on file Legal Sex Female 8:21 PM EDT Gender Identity Not on file Sexual Orientation Not on file documented as of this encounter Plan of Treatment Upcoming Encounters Date Type Department Care Team ([facility] Contact Info) Description 12/14/2024 1:00 PM EST Office Visit [facility] Nephrology, Bone & Mineral Metabolism [address] [facility], [address] [place] [address] Prabhu Brown MD [address] [place] [address] Scheduled Orders Name Type Priority Associated Diagnoses Orde r Schedule Renal Function Panel, Plasma Lab Routine Stage 3 chronic kidney disease, unspecified whether stage 3a or 3b CKD ([facility]/HCC) Expected: 11/16/2024 (Approximate), Expires: 05/17/2026 CBC and Differential Lab Routine Stage 3 chronic kidney disease, unspecified whether stage 3a or 3b CKD ([facility]/HCC) Expected: 11/16/2024 (Approximate), Expires: 05/17/2026 Creatinine, Random, Urine Lab Routine Stage 3 chronic kidney disease, unspecified whether stage 3a or 3b CKD ([facility]/HCC) Expected: 11/16/2024 (Approximate), Expires: 05/17/2026 Protein, Random, Urine with Creatinine Lab Routine Stage 3 chronic kidney disease, unspecified whether stage 3a or 3b CKD ([facility]/HCC) Expected: 11/16/2024 (Approximate), Expires: 05/17/2026 Urinalysis with reflex microscopic (Culture NOT Included) Lab Routine Stage 3 chronic kidney disease, unspecified whether stage 3a or 3b CKD ([facility]/HCC) Expected: 11/16/2024 (Approximate), Expires: 05/17/2026 PTH Intact Total Lab Routine Stage 3 chronic kidney disease, unspecified whether stage 3a or 3b CKD ([facility]/HCC) Vitamin D insufficiency Expected: 11/16/2024 (Approximate), Expires: 05/17/2026 Vitamin D 25 Hydroxy Lab Routine Stage 3 chronic kidney disease, unspecified whether stage 3a or 3b CKD ([facility]) Vitamin D insufficiency Expected: 11/16/2024 (Approximate), Expires: 05/17/2026 documented as of this encounter Visit Diagnoses Diagnosis Stage 3 chronic kidney disease, unspecified whether stage 3a or 3b CKD ([facility])- Primary Vitamin D insufficiency documented in this encounter Additional Health Concerns Assessment Noted Time A fall risk assessment has been complete d for the patient 06/02/2024 1:58 PM EDT A Body Mass Index follow-up plan has been documented for the patient 06/02/2024 2:45 PM EDT documented as of this encounter Care Teams Plant Breeder Relationship Specialty Start Date End Date Felicitas Melara APRN [address] [place] [address] PCP - General 01/29/24 documented as of this encounter
--- OUTSIDE RECORDS SUMMARY | 2024-12-07 16:17 | XMS_ITS | Clinical Summary ---
Author Organization [facility] Address [address] [place] [address] Care Team Providers Care Managed Care Director Name Role Phone Felicitas Melara APRN Primary Care Provider [phone] Allergies No known active allergies Medications albuterol [...] artery disease) 06/01/2024 Pleural effusion, bilateral 06/01/2024 Primary hyperparathyroidism 01/29/2024 Unspecified fracture of firs t lumbar vertebra, initial encounter for closed fracture 12/28/2023 Dorsalgia, unspecified 12/28/2023 Chronic midline low back pain 12/28/2023 Osteoporosis without current pathological fractu re 12/28/2023 Seizure 06/08/2023 Abnormal gait 06/05/2023 Acute on chronic respiratory failure with hypoxe david 06/05/2023 Asthenia 06/05/2023 Cardiogenic shock 06/05/2023 Cardiomyopathy [...] Provider: Ramy Hawk;Status: Active Peptic ulcer 05/01/2014 Resolved Problems Problem Noted Date Diagnosed Date Resolved Date Pneumonia 06/01/2024 12/04/2024 Altered mental status 06/05/20232024 Encounters Date Type Department Care Team Description 11/16/2024 Orders Only [facility] [address] [place] [address] Myrna Zamorano Stage 3 chronic kidney disease, unspecified whether stage 3a or 3b CKD ([facility]) (Primary Dx); Vitamin D insufficiency 10/28/2024 Telephone Professional [facility] [address], [address] [place] [address] HCN - Patient Message 10/18/2024 Community Orders [facility] [address] [place] [address] Kay Rao MD Chronic kidney disease (CKD) stage G3a/A1, moderately decreased glomerular filtration rate (GFR) between 45-59 mL/min/1.73 square meter and albuminuria creatinine ratio less than 30 mg/g ([facility]) (Primary Dx); Kidney disease from Last 3 [...] Recorded Patient Health Questionnaire-2 Score 0 05/30/2024 [facility] [place] of Occupat ional Health - Occupational Stress [...] Nephrology, Bone & Mineral Metabolism [address], [address] [place] [address] Prabhu Brown MD [address] [place] [address] Health Maintenance Due Date Last [...] - Risk 60-74 years 1-dose series) 2024 NPY-[id number]-12 Vaccine (3 - season) 2024 12/22/2020, 04/28/2020 UKY-Influenza Vaccine (#1) [...] Health Maintenance Insurance [employer] MEDICARE Care Teams Managed Care Director Relationship Specialty Start Date End Date Felicitas Melara APRN [address] [place] [address] PCP - General 01/29/24
--- OUTSIDE RECORDS SUMMARY | 2024-12-07 16:17 | XMS_ITS | Data Portability ---
Author Organization [facility] Address [address] [place] [address] Assessment Encounter Date Assessment Date Assessment LastModified by Organization Details LastModified Time 06/12/2023 06/12/2023 PULMONARY CONSULTATION HISTORICAL : This 57 year old female was admitted to the facility on 06/05/2023 after hospitalization at [facility] where she presented with altered mental [...] the facility on 06/05/2023 after hospitalization at [facility] where she presented with altered mental [...] By Organization Details Last Modified Time 06/19/2023 [id number] CONSENT FOR ENROLLMENT IN PRINCIPAL CARE MANAGEMENT: [...] though PCM services will not involve a [id number] meeting with a provider. [email or web address] Not available [...] ICD10 Code Diagnosis IMO Codes Diagnosis Note [id number] Dodie Cummins NP [facility] [address] [place] [address] 06/12/2023 20:51:54 06/19/2023 11:40:30 [id number] Dodie Cummins NP [facility] [address] [place] [address] 06/19/2023 09:57:05 06/22/2023 10:44:29 Health Concerns Section Related Observation LastModified by Organization Detai ls LastModified Time None Recorded Concern Status LastModified by Organization Details LastModified Time None Recorded Advance Directives Directive None Recorded Payers Insurance Date Sequence Insurance Name Policy Number Policy Harding Covered Member ID Harding Member ID Guarantor Name 06/19/2023 1 [employer] (MEDICARE REPLACEMENT/ ADVANTAGE - HMO) Lena Chandler [id number] Lena Chandler 06/12/2023 2 [place] Lena Chandler [id number] Lena Chandler OBGyn Episode No OBEpisode recorded.
--- OUTSIDE RECORDS SUMMARY | 2024-12-07 16:17 | XMS_ITS | Data Portability ---
Author Organization [facility] Address [address] [place] [address] Care Team Providers Care Radiator Repairer Name Role Phone PHONG WILLIAM Primary Care [...] By Organization Details Last Modified Time 01/27/2017 [id number] 1. Tobacco cessation stongly encouraged. 2. EGD [...] thyro id No observ ation record ed. [email or web address] Not Available 2016 10:51:38 01/27/20 17 01/22/2017 [place], thyro id No observ ation record ed. [facility] (Radiology) [address] [place], [address], 01/27/2017 13:16:29 Result Notes None recorded. 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 Procedures Surgical History Date Name Laterality Status Provider Name and Address Organization Details Recorded Time 07/25/19 22 removal of implantable cardiac pacemaker completed [facility] 07/29/2021 10:09:55 07/03/19 22 replacement of electronic heart device, pulse generator completed [facility] 07/29/2021 10:16:21 transesophageal echocardiography completed [facility] 07/29/2021 10:10:01 Imaging Results None recorded. [...] Updated DateTime 2 167.64 cm 22.6 kg/m2 03954.9 3 g 76 /min 91 % 91 % 4 L/min 106/70 mm[Hg] Mireille Deshpande [facility] 2 10:19:54 Date Recorded Body weight Body mass index (BMI) Body height Body temperature Provider Name and Address Organization Details Last Updated DateTime 01/27/2017 92458.09 g 29.3 kg/m2 167.64 cm 97.5 [degF] Isabell Ramoscharley [facility] 01/27/2017 16:15:45 Social History Question Answer Notes LastModified by Organizat ion Details LastModified Time Tobacco Smoking Status Former Smoker Mireille Deshpande [facility] 07/30/2021 10:13:31 What Was The Date Of Your Most Recent Tobacco Screening? 07/30/2021 [email or web address] Information not available 07/30/2021 Has Tobacco Cessation Counseling Been Provided? No [email or web address] Information not available 07/30/2021 Sex: Unknown Functional [...] N Alcohol Overuse/Alcohol Abuse N Heart Attack ([place]) Y Heart Disease Y Hypertension Y Gynecological HistoryNo gynecological history recorded. Obstetrics History GPAL:G 0 P 0 0 0 0 Past Encounters Encounter ID Performer Location Encounter Start Date Encounter Closed Date Diagnosis/Indication Diagnosis SNOMED-CT Code Diagnosis ICD10 Code Diagnosis IMO Codes Diagnosis Note [id number] KRISTOPHER AVILA III, [place] [facility] [address] [place] [address] 01/27/2017 15:44:32 01/28/2017 09:23:17 Dysphagia 63441677 R13.10 Nicotine dependence 5629 4008 F17.200 Thyroid nodule 471670666 E04.1 Cyst of thyroid 32711371 E04.1 Chronic hoarseness 03981 88719 105 R49.0 Hypertroph y of nasal turbinates 63091866 J34.3 Excessive belching 51181 7000 R14.2 [id number] ABBE HOLLEY MD [facility] [address] [place] [address],[address] [place] [address] 07/30/2021 10:05:00 07/30/2021 10:27:26 Wound of skin 815356838 T14.8XXD Patient's incision is well-heale d. Follow-up as noted above. Health Concerns Section Related Observation LastModified by Organization Detai ls LastModified Time None Recorded Concern Status LastModified by Organization Details LastModified Time None Recorded Advance Directives Directive None Recorded Payers Insurance Date Sequence Insurance Name Policy Number Policy Harding Covered Member ID Harding Member ID Guarantor Name 07/30/2021 1 [place] Lena Chandler [id number] Lena Chandler 04/21/2018 1 *SELF PAY* Pina Chandler 08/06/2021 1 [employer] (MEDICARE REPLACEMENT/ ADVANTAGE - HMO) Lena Chandler [id number] Lena Chandler Notes Date Note Type Note [...] or Barium swallow. KRISTOPHER AVILA III, MD [address] [place] [address], [phone], [facility] 01/27/2017 17:33:10 07/30/2021 text/html Mrs. 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 She is normally followed by Dr. Mariscal. He reports no problems with wound healing and is anticipating a follow-up with Dr. Mariscal later this month. ABBE HOLLEY MD [address] [place] [address], [phone], [facility] 07/30/2021 10:24:58 OBGyn Episode No OBEpisode recorded.
--- OUTSIDE RECORDS SUMMARY | 2024-12-07 16:17 | XMS_ITS | Referral Summary ---
Author Organization [employer] ([place], [place], [place], [place]) Address [address] [place] [address] Care Team Providers Care Residential Energy Auditor Name Role Phone Lalitha Linhkarthikeyan Mazariegos DO Primary Care Provider Lizzie Alves PA-C Unavailable [phone] Kaushik Mariscal MD Unavailable Encounters Date Type Department Care Team Description 11/17/2024 3:00 AM EDT Clinical Support [facility] Electrophysiology [address] [place] [address] Kaushik Mariscal MD Encounter for adjustment or management of cardiac device (Primary Dx); Ischemic cardiomyopathy with implantable cardioverter-defibrill ator (ICD); Chronic combined systolic and diastolic congestive heart failure (HCC) 10/17/2024 3:00 AM EDT Clinical Support [facility] Electrophysiology [address] [place] [address] Kaushik Mariscal MD Encounter for adjustment or management of cardiac device (Primary Dx); Ischemic cardiomyopathy with implantable cardioverter-defibrill ator (ICD); Chronic combined systolic and diastolic congestive heart failure (HCC) 10/11/2024 3:00 AM EDT Clinical Support [facility] Electrophysiology [address] [place] [address] Kaushik Mariscal MD Encounter for adjustment or management of cardiac device (Primary Dx); Ischemic cardiomyopathy with implantable cardioverter-defibrill ator (ICD); Chronic combined systolic and diastolic congestive heart failure (HCC) 09/15/2024 3:00 AM EDT Clinical Support [facility] Electrophysiology [address] [place] [address] Kaushik Mariscal MD Encounter for adjustment [...] 75 mg tabletIndications :Atherosclerotic heart disease of [place] coronary artery without angina pectoris TAKE ONE [...] on file Medical Devices Implanted Type Area Nike Athlete Device Identifier Shelf Expiration Date Model / Serial / Lot Icd-08/26/2021 Implanted:08/26 by Kaushik Mariscal MD (Quantity not on file) ICD [employer] 500Q / [id number] / Insurance [facility] AD[facility] Care Teams Residential Energy Auditor Relationship Specialty Start Date End Date Linh Doty, [address] [facility] [address] [place] [address] PCP - General Family Medicine 11/04/22 Lizzie Alves PA-C [address] [facility] [facility] [address] [place] [address] Hospitalist Cardiology 05/27/23 Kaushik Mariscal MD [address] [facility] [address] [place] [address] Infrastructure Analyst Electrophysiology 11/18/23
--- OUTSIDE RECORDS SUMMARY | 2024-12-07 16:17 | XMS_ITS | Clinical Summary ---
Author Organization [employer] ([place], [place], [place], [place]) Address [address] [place] [address] Care Team Providers Care Certified Forklift Operator Name Role Phone Linh Doty DO Primary Care Provider [phone] Lizzie Alves PA-C Unavailable [phone] Kaushik Mariscal MD Unavailable Allergies No [...] 75 mg tabletIndications :Atherosclerotic heart disease of [place] coronary artery without angina pectoris TAKE ONE [...] Description 11/17/2024 3:00 AM EDT Clinical Support [facility] Electrophysiology [address] [place] [address] Kaushik Mariscal MD Encounter for adjustment or management of cardiac device (Primary Dx); Ischemic cardiomyopathy with implantable cardioverter-defibrill ator (ICD); Chronic combined systolic and diastolic congestive heart failure (HCC) 10/17/2024 3:00 AM EDT Clinical Support [facility] Electrophysiology [address] [place] [address] Kaushik Mariscal MD Encounter for adjustment or management of cardiac device (Primary Dx); Ischemic cardiomyopathy with implantable cardioverter-defibrill ator (ICD); Chronic combined systolic and diastolic congestive heart failure (HCC) 10/11/2024 3:00 AM EDT Clinical Support [facility] Electrophysiology [address] [place] [address] Kaushik Mariscal MD Encounter for adjustment or management of cardiac device (Primary Dx); Ischemic cardiomyopathy with implantable cardioverter-defibrill ator (ICD); Chronic combined systolic and diastolic congestive heart failure (HCC) 09/15/2024 3:00 AM EDT Clinical Support [facility] Electrophysiology [address] [place] [address] Kaushik Mariscal MD Encounter for adjustment [...] Tdap) 01/29/2031 Medical Devices Implanted Type Area Release Specialist Device Identifier Shelf Expiration Date Model / Serial / Lot Icd-08/26/2021 Implanted:08/26 by Kaushik Mariscal MD (Quantity not on file) ICD [employer] G[employer]ANT 500Q / [id number] / Insurance [facility] ADV Care Teams Certified Forklift Operator Relationship Specialty Start Date End Date Linh Doty, [address] [facility] [address] [place] [address] PCP - General Family Medicine 11/04/22 Lizzie Alvse PA-C [address] [facility] [facility] [address] [place] [address] Hospitalist Cardiology 05/27/23 Kaushik Mariscal MD [address] [facility] [address] [place] [address] Motorcycle Deliverer Electrophysiology 11/18/23
--- OUTSIDE RECORDS SUMMARY | 2024-12-07 16:17 | XMS_ITS | Encounter Summary ---
Author Organization [facility] [place] Address [address] [place] [address] Care Team Providers Care Kindergartners Helper Name Role Phone Linh Doty DO Primary Care Provider [phone] Lizzie Alves PA-C Unavailable [phone] Kaushik Mariscal MD Unavailable Reason for Visit * Reason Comments Medication Refill Encounter Details Date Type Department Care Team (Late st Contact Info) Description 05/25/2023 Refill [facility] Cardiology [address] [place] [address] Lenka Benavidez MD [address] [facility] [address] [place] [address] Personal history of other diseases of the circulatory system; Atherosclerotic heart disease of [place] coronary artery without angina pectoris Social History Tobacco Use Types Packs/Day Years Used Date Smoking Tobacco: Some Days Cigarettes Passive Smoke Exposure: Never Smokeless Tobacco: Never Alcohol Use Standard Drinks/Week Comments Not Currently 0 (1 standard drink = 0.6 oz pur e alcohol) Family and Community Support Answer Geremisa e Recorded Help with Day to Day Activities Not on file 02/27/2023 Feeling Lonely or Isolated Not on file 02/27 Educational Attainment Answer Date Mendez rded Speak language other than Azeri at home Not on file 02/27/2023 Want [...] the circulatory system Atherosclerotic heart disease of [place] coronary artery without angina pectoris documented in this encounter Care Teams Kindergartners Helper Relationship Specialty Start Date End Date Linh Doty, [address] [facility] [address] [place] [address] PCP - General Family Medicine 11/04/22 Lizzie Alves PA-C [address] [place] [address], [facility] [address] [place] [address] Hospitalist Cardiology 05/27/23 Kaushik Mariscal MD [address] [facility] [address] [place] [address] Melt Down Furnace Operator Electrophysiology 11/18/23 documented as of this encounter
--- OUTSIDE RECORDS SUMMARY | 2024-12-07 16:17 | XMS_ITS | Encounter Summary ---
Author Organization [employer] ([place], [place], [place], [place]) Address [address] [place] [address] Care Team Providers Care Marriage And Family Counselor Name Role Phone Lalitha Linhkarthikeyan Mazariegos DO Primary Care Provider [phone] Lizzie Alves PA-C Unavailable [phone] Kaushik Mariscal MD Unavailable Encounter Details Date Type Department Care Team (Late st Contact Info) Description 11/23/2018 Transcribed Document [facility] Family Medicine [place] [address] ProviderChad MD [address] [place] [address] Social History Tobacco Use Types Packs/Day [...] on filedocumented in this encounter Care Teams Marriage And Family Counselor Relationship Specialty Start Date End Date Linh Doty, [address] [facility] [address] [place] [address] PCP - General Family Medicine 11/04/22 Lizzie Alves PA-C [address] [place] [address], [facility] [address] [place] [address] Hospitalist Cardiology 05/27/23 Kaushik Mariscal MD [address] [facility] [address] [place] [address] Material Handling Equipment [employer] Electrophysiology 11/18/23 documented as of this encounter
[2024-12-07 16:23] LABS: Microscopic, Urine URINE MICROSCOPIC (MICROSCOPIC)
[2024-12-07 17:21] LABS: Hematocrit 53.3 % (37.0-47.0); Hemoglobin 17.4 g/dL (12.2-16.2); Immature Granulocytes % 0.5 %; Mean Corpuscular HGB Conc 32.6 g/dL (31.8-35.4); Mean Corpuscular Hemoglobin 31.4 pg (27.0-31.2); Mean Corpuscular Volume 96.0 fl (81-99); Nucleated Red Blood Cells % 0 %; Platelet Count 82 K/mm3 (142-424); Red Blood Count 5.55 M/mm3 (4.20-5.40); Red Cell Distribution Width-SD 51.5 fL; White Blood Count 12.9 K/mm3 (4.8-10.8)
[2024-12-07 17:30] LABS: Bilirubin,Urine Negative (Negative); Color,Urine YELLOW (Yellow); Glucose,Urine (UA) 3+ (Negative); Ketones,Urine Negative (Negative); Leukocyte Esterase,Urine Negative (Negative); PH,Urine 6.0 (5.0-8.5); Protein,Urine Negative (Negative); Specific Gravity, Urine <= 1.005 (1.005-1.030); Urobilinogen,Urine 0.2 EU/dl (0.2)
[2024-12-07 18:22] LABS: Albumin Level 3.7 g/dl (3.5-5.0); Anion Gap 10.3 mEq/L (5-15); Blood Urea Nitrogen 14 mg/dl (7-17); Calcium 10.2 mg/dl (8.4-10.2); Carbon Dioxide 29 mmol/L (22.0-30.0); Chloride 89 mmol/L (98-107); Creatinine,Serum 1.10 mg/dl (0.52-1.04); Estimated Glomerular Filt Rate 51 ml/min (>60); GFR (African American) 61 ML/MIN (>60); Glucose 82 mg/dl (74-100); Phosphorous 3.4 mg/dl (2.5-4.5); Potassium 4.3 mmoL/L (3.5-5.1); Sodium 124 mmol/L (136-145)
[2024-12-07 18:39] LABS: 25-OH Vitamin D, Total 22.9 ng/mL (30-100)
[2024-12-07 19:37] LABS: Bacteria,Urine Trace /lpf; RBC,Urine Occasional #/hpf (0-3); Squamous Epithelial Cell,Urine Occasional #/hpf (0-5)
== END 2024-12-07 23:59 | disposition home or self-care (01) ==
LOC: LAB 16:14
PROVIDERS: Student in an Organized Health Care Education/Training Program; PCP Nurse Practitioner Family; Visit Provider Internal Medicine Medical Oncology
DX: N18.30 Chronic kidney disease, stage 3 unspecified (principal); E55.9 Vitamin D deficiency, unspecified
CPT/HCPCS: 36415; 80069; 81001; 82306; 82570; 83970; 84156; 85025

== ENCOUNTER 2024-12-21 12:16 | Outpatient (CLI) | payer MEDICARE, SELFPAY ==
--- OUTSIDE RECORDS SUMMARY | 2024-10-11 02:00 | XMS_ITS | Encounter Summary ---
Author Organization [employer] ([place], [place], [place], [place], [place]) Address [address] [place] [address] Care Team Providers Care Watchmaking Teacher Name Role Phone LuisLinh collado Delilah DAVIS Primary Care Provider [phone] Lzizie Alves PA-C Unavailable [phone] Kaushik Mariscal MD Unavailable Reason for Visit * Reason Comments Pacemaker /ICD Home Monitoring Encounter Details Date Type Department Care Team (Late st Contact Info) Description 10/11/2024 3:00 AM EDT Clinical Support [facility] Electrophysiology [address] [place] [address] Kaushik Mariscal MD [address] [facility] [address] [place] [id number] Encounter for adjustment or management of cardiac [...] (HCC) documented in this encounter Care Teams Watchmaking Teacher Relationship Specialty Start Date End Date Linh Doty, 8 [facility] [address] [place] [address] PCP - General Family Medicine 11/04/22 Lizzie Alves PA-C [address] [place] [address], [facility] [address] [place] [address] Hospitalist Cardiology 05/27/23 Kaushik Mariscal MD [address] [facility] [address] [place] [address] Laboratory Veterinarian Electrophysiology 11/18/23 documented as of this encounter
--- OUTSIDE RECORDS SUMMARY | 2024-10-17 02:00 | XMS_ITS | Encounter Summary ---
Author Organization [employer] ([place], [place], [place], [place], [place]) Address [address] [place] [address] Care Team Providers Care Thread Grinder Name Role Phone LuisLinh collado Delilah DAVIS Primary Care Provider [phone] Lizzie Alves PA-C Unavailable [phone] Kaushik Mariscal MD Unavailable Reason for Visit * Reason Comments Pacemaker /ICD Home Monitoring Encounter Details Date Type Department Care Team (Late st Contact Info) Description 10/17/2024 3:00 AM EDT Clinical Support [facility] Electrophysiology [address] [place] [address] Kaushik Mariscal MD 1401 [facility] [address] [place] [id number] Encounter for adjustment or management of cardiac [...] (HCC) documented in this encounter Care Teams Thread Grinder Relationship Specialty Start Date End Date Linh Doty, 8 [facility] [address] [place] [address] PCP - General Family Medicine 11/04/22 Lizzie Alves PA-C [address] [place] [address], [facility] [address] [place] [address] Hospitalist Cardiology 05/27/23 Kaushik Mariscal MD [address] [facility] [address] [place] [address] Talent Acquisition Associate Electrophysiology 11/18/23 documented as of this encounter
--- OUTSIDE RECORDS SUMMARY | 2024-11-17 02:00 | XMS_ITS | Encounter Summary ---
Author Organization [employer] ([place], [place], [place], [place], [place]) Address [address] [place] [address] Care Team Providers Care Medical Records Assistant Name Role Phone LuisLinh collado Delilah DAVIS Primary Care Provider Lizzie Alves PA-C Unavailable [phone] Kaushik Mariscal MD Unavailable Reason for Visit * Reason Comments Pacemaker /ICD Home Monitoring Encounter Details Date Type Department Care Team (Late st Contact Info) Description 11/17/2024 3:00 AM EDT Clinical Support [facility] Electrophysiology [address] [place] [address] Kaushik Mariscal MD 1401 [facility] [address] [place] [id number] Encounter for adjustment or management of cardiac [...] (HCC) documented in this encounter Care Teams Medical Records Assistant Relationship Specialty Start Date End Date Linh Doty, 8 [facility] [address] [place] [address] PCP - General Family Medicine 11/04/22 Lizzie Alves PA-C [address] [place] [address], [facility] [address] [place] [address] Hospitalist Cardiology 05/27/23 Kaushik Mariscal MD 14[address] [facility] [address] [place] [address] Photoengraving Machine Operator/Tender Electrophysiology 11/18/23 documented as of this encounter
--- OUTSIDE RECORDS SUMMARY | 2024-12-14 13:00 | XMS_ITS | Encounter Summary ---
Author Organization [facility] Address [address] [place] [address] Care Team Providers Care Kennel Aide Name Role Phone Felicitas Melara APRN Primary Care Provider [phone] Reason for Referral * Consultation (Routine) - Authorized Specialty Diagnoses / Procedures Referred By Contac t Referred To Contact Diagnoses Chronic kidney disease (CKD), stage 2 Prabhu Brown MD [address] [place] [address] Phone: tel: fax: Referral ID Status Reason Start Date Expiration Date V isits Requested Visits Authorized [id number] Authorized 12/14/2024 06/15/2026 1 1 Reason for Visit * Reason Comments Consult * Consultation (Routine) - Closed Specialty Diagnoses / Procedures Referred By Contac t Referred To Contact Nephrology Diagnoses Kidney disease Kay Rao MD [address] [facility] [address] [place] [address] Phone: tel: fax: [facility] Nephrology, Bone [facility]abolism [address], [address] [place] [address] Phone: tel: fax: Referral ID Status Reason Start Date Expiration Date V isits Requested Visits Authorized [id number] Closed Specialty Services Required 10/18/2024 04/19/2026 1 1 Encounter Details Date Type Department Care Team (Latest Contact Info) Description 12/14/2024 1:00 PM EST Office Visit [facility] Nephrology, Bone [facility] Metabolism [address], [address] [place] [address] Prabhu Brown MD [address] [place] [address] CKD stage 3a, GFR 45-59 ml/min (CMS/HCC) (Primary Dx); Peripheral vascular disease (CMS/HCC); Coronary artery disease involving false pass coronary artery of false pass heart, unspecified whether angina present; Hyperlipidemia, unspecified hyperlipidemia type; Hyponatremia Social History Tobacco Use Types Packs/Day Years [...] Recorded Patient Health Questionnaire-2 Score 0 05/30/2024 [employer] - Occupational Stress [...] the past 12 months has th e Equivalent DATA, gas, oil, or water company threatened to shut off services in your home? No 06/02/2024 Comments No Sex and Gender Information Value Date Recorded Sex Assigned at Not on file Legal Sex Female 8:21 PM EDT Gender Identity Not on file Sexual Orientation Not on file documented as of this encounter Last Filed Vital Signs Vital Sign Reading Time Taken Comments Blood Pressure 92/68 12/14/2024 12:59 PM EST Pulse 92 12/14/2024 12:49 PM EST Temperature 36.4 C (97.6 F) 12/14/2024 12:49 PM EST Respiratory Rate - - Oxygen Saturation 90% 12/14/2024 12:49 PM EST Inhaled Oxygen Concentration - - Weight 72.4 kg (159 lb 9.8 oz) 12/14/2024 12:49 PM EST Height 170.2 cm (5' 7 ) 12/14/2024 12:49 PM EST Body Mass Index 25 12/14/2024 12:49 PM EST documented in this encounter Miscellaneous Notes * Progress Notes - Prabhu Brown MD - 12/14/2024 1:00 PM EST Nephrology Outpatient Clinic New Consult Note Chronic Kidney Disease Patient: Lena Shy Chandler Primary Care Provider: Felicitas Melara APRN Referring Provider: Felicitas Melara APRN Reason for consult: CKD HPI/Subjective Lena Chandler is a 59 y.o. female with a PMH of CAD, PAD (abdominal aortic and right common femoral artery stents, right common iliac artery stent, HLD, Hypercalcemia (FHH vs. Hyperpara secondary or primary), who presents for evaluation of CKD. Ms. Chandler reports feeling to be in her usual state of health today. Blood pressure is low at 92/68 which she says is normal for her. She recalls having kidney failure during her severe illness with long hospitalization, but otherwise is unaware of any personal history of kidney disease. She denies knowledge of family history of kidney disease. She denies kidney stones. No urinary symptoms today. Labs from over the years have her creatinine in the 0.5 - 1.0 range. More recently creatinine has been 1.2 and 1.1, this was after starting Farxiga 10 mg which she is tolerating well without issue. She is a former smoker with 2 lung nodules being monitored with low dose CT yearly. She has erythrocytosis and thrombocytopenia and is being evaluated by Dr. Falcon at [facility]. ROS Review of Systems All other systems reviewed and are negative. History: Past Medical History[1] Problem List[2] Surgical History[3] Family History[4] Social History Socioeconomic History Marital status: Single Spouse name: Not on file Number of children: Not on file Years of education: Not on file Highest education level: Not on file Occupational History Not on file Tobacco Use Smoking status: Former Types: Cigarettes Passive exposure: Current Smokeless tobacco: Never Vaping Use Vaping status: Never Used Substance and Sexual Activity Alcohol use: Yes Drug use: Not Currently Comment: Drug use: Drug use Sexual activity: Not on file Other Topics Concern Not on file Social History Narrative Not on file Social Drivers of Health Financial Resource Strain: Low Risk (06/02/2024) Overall Financial Resource Strain (CARDIA) Difficulty of Paying Living Expenses: Not hard at all Food Insecurity: No Food Insecurity (02/27/2023) Received from [facility] ([place], [place], [place], [place], [place]) Food Insecurity Food run out past 12 months: Not on file Food did not last past 12 months: Not on file Transportation Needs: No Transportation Needs (06/02/2024) PRAPARE - Transportation Lack of Transportation (Medical): No Lack of Transportation (Non-Medical): No Physical Activity: Sufficiently Active (06/02/2024) Exercise Vital Sign Days of Exercise per Week: 3 days Minutes of Exercise per Session: 60 min Stress: No Stress Concern Present (06/02/2024) [employer] [facility] - Occupational Stress Questionnaire Feeling of Stress : Not at all Social Connections: Low Risk (02/27/2023) Received from [facility] ([place], [place], [place], [place], [place]) Family and Community Support Help with Day to Day Activities: Not on file Feeling Lonely or Isolated: Not on file Intimate Partner Violence: Not At Risk (06/02/2024) Humiliation, Afraid, Rape, and Kick questionnaire Fear of Current or Ex-Partner: No Emotionally Abused: No Physically Abused: No Sexually Abused: No Housing Stability: Low Risk (02/27/2023) Received from [facility] ([place], [place], [place], [place], [place]) Housing Stability Living situation today: Not on file Living situation problems: Not on file Allergies[5] Medications: Current Medications: Current Outpatient Medications Medication Instructions albuterol 108 (90 Base) MCG/ACT inhaler INHALE TWO PUFFS BY MOUTH FOUR TIMES DAILY NEEDED FOR SHORTNESS OF BREATH OR wheezing cetirizine (ZyrTEC) 10 MG tablet TAKE ONE TABLET BY MOUTH EVERY DAY NEEDED FOR ALLERGY SYMPTOMS ciprofloxacin-dexamethasone (CiproDEX) otic suspension instill 4 drops into the affected ear(s) twice daily for 7 days Eliquis 5 mg, 2 times daily Farxiga 10 mg, Daily fluticasone (Flonase) 50 MCG/ACT nasal spray instill 1 SPRAY IN EACH NOSTRIL EVERY DAY folic acid (Folvite) 1 MG tablet 1 tablet, Daily furosemide (Lasix) 20 MG tablet 1 tablet, Every morning Magnesium 100 MG capsule 2 capsules, 2 times daily magnesium oxide (Mag-Ox) 400 (240 Mg) MG tablet 1 tablet, 3 times daily metoprolol succinate XL (TOPROL-XL) 50 mg, ZZ Daily RT montelukast (SINGULAIR) 10 mg, Every evening omeprazole (PRILOSEC) 40 mg, Daily pregabalin (Lyrica) 100 MG capsule rosuvastatin (CRESTOR) 10 mg, Every evening spironolactone (ALDACTONE) 25 mg traMADol (ULTRAM) 50 mg, Every 6 hours PRN Trelegy Ellipta 100-62.5-25 MCG/ACT aerosol powder 1 puff Objective Visit Vitals BP 92/68 (BP Location: Right arm, Patient Position: Sitting, BP Cuff Size: Large adult) Pulse 92 Temp 36.4 ??C (97.6 ??F) (Oral) Ht 1.702 m (5' 7 ) Wt 72.4 kg (159 lb 9.8 oz) SpO2 90% BMI 25.00 kg/m?? OB Status Postmenopausal Smoking Status Former BSA 1.85 m?? Temp: [36.4 ??C (97.6 ??F)] 36.4 ??C (97.6 ??F) Heart Rate: [92] 92 BP: (92-119)/(68-82) 92/68 Physical Exam: Physical Exam Constitutional: General: She is not in acute distress. Appearance: Normal appearance. She is normal weight. She is not ill-appearing. HENT: Head: Normocephalic and atraumatic. Right Ear: External ear normal. Left Ear: External ear normal. Nose: Nose normal. Mouth/Throat: Mouth: Mucous membranes are moist. Pharynx: Oropharynx is clear. Eyes: Conjunctiva/sclera: Conjunctivae normal. Pupils: Pupils are equal, round, and reactive to light. Cardiovascular: Rate and Rhythm: Normal rate. Pulses: Normal pulses. Pulmonary: Effort: Pulmonary effort is normal. Abdominal: General: Abdomen is flat. Bowel sounds are normal. Musculoskeletal: General: Normal range of motion. Cervical back: Normal range of motion. Right lower leg: No edema. Left lower leg: No edema. Skin: General: Skin is warm and dry. Capillary Refill: Capillary refill takes less than 2 seconds. Neurological: General: No focal deficit present. Mental Status: She is alert and oriented to person, place, and time. Mental status is at baseline. Psychiatric: Mood and Affect: Mood normal. Behavior: Behavior normal. Thought Content: Thought content normal. Judgment: Judgment normal. Laboratory: I have personally reviewed these lab results and discuss their significance below. LAB RESULTS Renal Panel: Lab Results Component Value Date NA 134 (L) 01/29/2024 K 5.1 (H) 01/29/2024 CL 100 01/29/2024 CO2 24 01/29/2024 BUN 12 01/29/2024 CREATININE 1.00 01/29/2024 EGFR 65.0 01/29/2024 CA 9.7 03/22/2014 PHOS 2.8 01/29/2024 ALBUMIN 4.2 01/29/2024 CBC: Lab Results Component Value Date WBC 8.53 08/21/2021 RBC 4.93 08/21/2021 HGB 15.6 08/21/2021 HCT 48.5 (H) 08/21/2021 PLT 153 08/21/2021 MCV 98.4 (H) 08/21/2021 MCH 31.6 08/21/2021 MCHC 32.2 08/21/2021 RDW 14.8 08/21/2021 NRBC 0.0 08/21/2021 Iron studies: No results found for: FERRITIN , IRON , IRONSAT , TIBC Urine studies: No results found for: CAR , CAUR , CALCIUMUR , PHOSUR , LPPH08PVM , NFIGK03RAT , CREATUR MBD: Lab Results Component Value Date PTH 351 (H) 01/29/2024 CA 9.7 03/22/2014 CALCIUM 9.7 01/29/2024 ICAS 5.3 01/29/2024 PHOS 2.8 01/29/2024 MG 1.9 03/15/2014 VITAMIN D 25 Lab Results Component Value Date VITD25 41.0 01/29/2024 VITAMIN D 1,25 No results found for: VITD32 Paraproteinemia Labs: No results found for: SPEP , KAPPALAMBDA Nutritional: Lab Results Component Value Date VITD25 41.0 01/29/2024 Endocrine profile: No results found for: TESTOSTERONE , TESTOST , FSH , LH , PROLACTIN , TSH , O2RDGLD , FREET4 , CORTISOL Labs from [facility] CBC: WBC 12.9, HGB 17.4, PLT 82 RFP: Na 124, K 4.3, Cl 89, CO2 29, AGAP 10, BUN 14, Cr 1.10, EGFR 51, Glu 82, Ca 10.2, Phos 3.4, vit d 22.9, alb 3.7, PTH 199 UA: Negative blood, negative protein, SG <<1.005 Urine PCR <0.2 Imaging: CTA Abdomen 11/13/23 [facility] [place] [address]MG Scan Report SignedPatient:Lena ChandlerMR#: [id number]: [id number]:[id number]/Sex: 58 / FADM Date: 11/13/23Loc: RADAttending Dr: Silvia Bailey APRNOrdering Physician: Silvia Baileyate of Service: 11/13/23Procedure(s): CT angio abdomen/femoralAccession Number(s): [id number]: Silvia Bailey APRN; Felicitas Melara APRN; Clark Diggs MD~FINAL REPORTTECHNIQUE:Post contrast axial imaging of the aorta and bilateral lowerextremity was obtained and reviewed. This study was performedwith techniques to keep radiation doses as low as reasonablyachievable (ALARA). Individualized dose reduction techniquesusing automated exposure control or adjustment of mA and/or kVaccording to the patient''s size were em ployed.CLINICAL HISTORY:vas diseaseFINDINGS:The lung bases are clear. The liver pancreas is homogeneous.The gallbladder is contracted. There are calcified granulomaswithin the spleen. The pancreas appears unremarkable. There isbilateral adrenal hyperplasia. The kidneys appear unremarkable.There is a retroaortic left renal vein. The abdominal aorta isnormal in caliber. The uterus is present and lies eccentric tothe right. The urinary bladder is incompletely distended. The appendix is not identified. Surgical clips are seen in theright inguinal region. The celiac axis and SMA are patent.There is a vascular stent within the distal abdominal aorta.There is a right common iliac artery stent. Right lowerextremity: The common femoral artery is patent continuous witha patent superficial femoral artery. The popliteal and tibialvessels are patent. There is no evidence of stenosis. Leftlower extremity: The common femoral artery is patent continuouswith a patent superficial femoral artery. The popliteal andtibial vessels are patent. There is no evidence of stenosis.IMPRESSION:Previously placed abdominal aortic and right common femoralartery stents. Postoperative changes in the right inguinalregion. No evidence of infra inguinal arterial occlusivedisease. Impression & Plan: Lena Chandler is a 59 y.o. female with CAD, PVD, right iliac stent, hx of cardiogenic shock, 20+ ppd year smoker w/ -pulmonary nodules, thrombocytopenia, erythrocytosis, who presents for evaluationof CKD #Hyponatremia,moderate, asymptomatic -Patient with low sodium (124) on recent labs 12/07. She has had ow sodium in the past, but never this low. Her urine SG is extremely low that day indicating she was producing quite dilute urine and perhaps had drank a lot of low osm fluids that day before getting labs. She is getting repeat labs tomorrow at [facility] and will follow up then if not resolved. Appears euvolemic on exam Not on a thiazide #CKD Stage 3a Etiology: Suspect microvascular disease given patient severe PVD burden elsewhere. Baseline serum creatinine: ~1.0-1.2 Most recent Scr: 1.1 EGFR 51 Electrolytes, acid/base, volume status wnl Urine: Negative blood, negative protein 3+ Glu on sGLT2 Anatomy: normal appearing kidneys on CT abdomen Risk factor reduction to slow progression of kidney disease: -BP Control goal BP <130/80 -DM control goal A1c <7.0% -Lifestyle management: ---Maintain healthy weight: Body mass index is 25 kg/m??. ---Diet recommendations: Heart healthy and Low sodium <2g/day ---Daily exercise 20-30 minutes as tolerated -Avoid NSAIDs -JUSTIN blockade: spironolactone -SGLT2 inhibitor: Farxiga 10 mg daily #CAD/PVD -on SGLT2 inh, sprionolactone, rosuvastatin, metoprolol, #CKD Bone and Mineral Disease #Hyperparathyroidism of secondary origin ? -24 hour urine testing x2 were LOW creatinine likely under collection however urine volume was quite high >3L and urine calcium remained very low which would be inconsistent with primary hyperparaso alternative diagnoses are being explored. Patient is on Denosumab for osteopenia #Hyperlipidemia in CKD -on rosuvastatin Recommendations and plan: -I have reviewed Ms. Chandler's labs from the last few years and recent kidney imaging. She has CKD stage 3a, eGFR dropped after starting SGLT2 inhibitor which is a normal response. terminal gauger benefit outweighs this current drop. - Continue Farxiga 10 mg - Continue Spironolactone 25 mg - We discussed avoiding ibuprofen and other nsaids - Repeat labs tomorrow to check sodium level RTC in ~6 months in [facility] Prabhu Brown MD Division of Nephrology [facility] Counseling Documentation: The patient was counseled regarding COUNSELING TOPICS: diagnostic results, prognosis, risks and benefit of treatment options, risk factor reductions, instructions for management, patient and family education, medication changes, diagnostic impressions, Heart healthy diet, regular physical activity and weight control, Avoidance of NSAIDs and other nephrotoxins, and supervisor long goods nature of condition. Education provided was verbal counseling.Additional time was spent in care coordination including medical record review. ENCOUNTER TIMING: I personally spent a total of 55 minutes on this encounter. This time includes face to face with patient, counseling and discussion, lab/result interpretation, coordination of follow-up care, document review. The total time of encounter was 55 minutes and greater than 50% of the visit was spent in c ounseling/coordination of care. . MDM: - was based on the following: Labs reviewed Urine studies: UA, Metabolic profile: renal panel, CBC, or iPTH, and Imaging: CTA abdomen Past imaging reviewed Old chart reviewed ORDERS PLACED THIS ENCOUNTER Orders Placed This Encounter Procedures CBC W/O Differential Standing Status: Future Expected Date: 06/12/2025 Expiration Date: 06/17/[facility] Urinalysis with reflex microscopic (Culture NOT Included) Standing Status: Future Expected Date: 06/12/2025 Expiration Date: 06/17/2026 [facility] Vitamin D 25 Hydroxy Standing Status: Future Expected Date: 06/12/2025 Expiration Date: 06/17/2026 [facility] PTH Intact Total Standing Status: Future Expected Date: 06/12/2025 Expiration Date: 06/17/2026 [facility] Albumin-creatinine ratio, urine, random Standing Status: Future Expected Date: 06/12/2025 Expiration Date: 06/17/2026 [facility] Protein, Random, Urine with Creatinine Standing Status: Future Expected Date: 06/12/2025 Expiration Date: 06/17/2026 [facility] Renal Function Panel, Plasma Standing Status: Future Expected Date: 06/12/2025 Expiration Date: 06/17/2026 Release to patient in MyChart: Immediate Follow Up Nephrology [facility] Follow up Standing Status: Future Expected Date: 06/13/2025 Expiration Date: 01/13/2026 Referral Priority: Routine Referral Type: Consultation Number of Visits Requested: 1 Problem List Items Addressed This Visit Peripheral vascular disease (CMS/HCC) CKD stage 3a, GFR 45-59 ml/min (CMS/HCC) - Primary Relevant Orders Follow Up Nephrology CBC W/O Differential Urinalysis with reflex microscopic (Culture NOT Included) Vitamin D 25 Hydroxy PTH Intact Total Albumin-creatinine ratio, urine, random Protein, Random, Urine with Creatinine Renal Function Panel, Plasma Coronary artery disease involving false pass coronary artery of false pass heart Hyperlipidemia Hyponatremia I confirm that I have addressed the patient's longitudinal multifaceted and complex health related active and chronic conditions that will require ongoing care with myself or someone on my team. [1] Past Medical History: Diagnosis Date Atherosclerotic heart disease of false pass coronary artery without angina pectoris Coronary artery disease Chronic or unspecified gastric ulcer with perforation (CMS/HCC) Gastric ulcer with perforation Other specified disorders of peritoneum Pneumoperitoneum Personal history of other diseases of the musculoskeletal system and connective tissue History of arthritis Personal history of other diseases of the respiratory system History of asthma Pneumonia 06/01/24 [2] Patient Active Problem List Diagnosis Unspecified fracture of first lumbar vertebra, initial encounter for closed fracture (CMS/HCC) Dorsalgia, unspecified Chronic midline low back pain Osteoporosis without current pathological fracture Primary hyperparathyroidism (CMS/HCC) Abnormal gait Acute exacerbation of CHF (congestive heart failure) Acute on chronic respiratory failure with hypoxemia Asthenia Carcinoma in situ of endocervix Cardiogenic shock (CMS/HCC) Cardiomyopathy Chronic combined systolic and diastolic congestive heart failure Chronic obstructive pulmonary disease Complement deficiency disease Cyst of vulva Difficulty walking Disorder of immune system (CMS/HCC) Disorder of respiratory system Essential hypertension Congestive heart failure Chronic respiratory failure 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 Left ventricular thrombus Neck pain Neuropathic pain Nicotine dependence On mechanically assisted ventilation (CMS/HCC) Opioid dependence Osteoarthritis of both knees PAD (peripheral artery disease) Pain in both knees Pain in right arm Atypical squamous cells of undetermined significance (ASCUS) on Papanicolaou smear of cervix Peptic ulcer Pleural effusion, bilateral Radicular pain Seizure (CMS/HCC) Spinal stenosis in cervical region Unsteadiness on feet Venous insufficiency of both lower extremities Hyperparathyroidism (CMS/HCC) [3] Past Surgical History: Procedure Laterality Date CARDIAC DEFIBRILLATOR PLACEMENT N/A Implantable Cardioverter-Defibrillator from [employer] OTHER SURGICAL HISTORY N/A Transcath Placement Of Intrathoracic Carotid Artery Stent from [employer] [4] Family History Problem Relation Name Age of Onset Hypertension Father [5] No Known Allergies documented in this encounter Plan of Treatment Upcoming Encounters Date Type Department Care Team (Late st Contact Info) Description 06/23/2025 10:40 AM EDT Office Visit [facility] [address] [place] [address] Prabhu Brown MD [address] [place] [address] Scheduled Orders Name Type Priority Associated Diagnoses Orde r Schedule CBC W/O Differential Lab Routine CKD stage 3a, GFR 45-59 ml/min (CMS/HCC) Expected: 06/12/2025 (Approximate), Expires: 06/17/2026 Urinalysis with reflex microscopic (Culture NOT Included) Lab Routine CKD stage 3a, GFR 45-59 ml/min (CMS/HCC) Expected: 06/12/2025 (Approximate), Expires: 06/17/2026 Vitamin D 25 Hydroxy Lab Routine CKD stage 3a, GFR 45-59 ml/min (CMS/HCC) Expected: 06/12/2025 (Approximate), Expires: 06/17/2026 PTH Intact Total Lab Routine CKD stage 3a, GFR 45-59 ml/min (CMS/HCC) Expected: 06/12/2025 (Approximate), Expires: 06/17/2026 Albumin-creatinine ratio, urine, random Lab Routine CKD stage 3a, GFR 45-59 ml/min (CMS/HCC) Expected: 06/12/2025 (Approximate), Expires: 06/17/2026 Protein, Random, Urine with Creatinine Lab Routine CKD stage 3a, GFR 45-59 ml/min (CMS/HCC) Expected: 06/12/2025 (Approximate), Expires: 06/17/2026 Renal Function Panel, Plasma Lab Routine CKD stage 3a, GFR 45-59 ml/min (CMS/HCC) Expected: 06/12/2025 (Approximate), Expires: 06/17/2026 Scheduled Referrals Name Type Priority Associated Diagnoses Order Schedule Follow Up Nephrology Outpatient Referral Routine CKD stage 3a, GFR 45-59 ml/min ([facility]) Expected: 06/13/2025 (Approximate), Expires: 01/13/2026 documented as of this encounter Visit Diagnoses Diagnosis CKD stage 3a, GFR 45-59 ml/min ([facility])- Primary Peripheral vascular disease ([facility]) Unspecified peripheral vascular disease Coronary artery disease involving false pass coronary artery of false pass heart, unspecified whether angina present Hyperlipidemia, unspecified hyperlipidemia type Hyponatremia Hyposmolality and/or hyponatremia documented in this encounter Additional Health Concerns Assessment Noted Time A fall risk assessment has been complete d for the patient 12/14/2024 12:58 PM EST A Body Mass Index follow-up plan has been documented for the patient 12/14/2024 2:06 PM EST documented as of this encounter Care Teams Kennel Aide Relationship Specialty Start Date End Date Felicitas Melara APRN [address] [place] [address] PCP - General 01/29/24 documented as of this encounter
--- OUTSIDE RECORDS SUMMARY | 2024-12-21 12:18 | XMS_ITS | Encounter Summary ---
Author Organization [employer] ([place], [place], [place], [place], [place]) Address [address] [place] [address] Care Team Providers Care Incident Handler Name Role Phone Lalitha Linh Delilah DAVIS Primary Care Provider [phone] Lizzie Alves PA-C Unavailable [phone] Kaushik Mariscal MD Unavailable Encounter Details Date Type Department Care Team (Late st Contact Info) Description 11/23/2018 Transcribed Document [facility] Family Medicine [address] [place] [address] ProviderChad MD [address] [place] [address] Social History Tobacco Use Types Packs/Day [...] 11/23/2018 8:12 EDT Electronically signed by Rekha [facility] Conversion Product Test Specialist Cerner at 05/27/2022 9:25 PM CDT documented in this encounter Plan of Treatment Not on file documented as of this encounter Visit Diagnoses Not on filedocumented in this encounter Care Teams Incident Handler Relationship Specialty Start Date End Date Linh Doty, DO [address] [facility] [address] [place] [address] PCP - General Family Medicine 11/04/22 Lizzie Alves PA-C [address] [place] [address], [facility] [address] [place] [address] Hospitalist Cardiology 05/27/23 Kaushik Mariscal MD [address] [facility] [address] [place] [address] Report Manager Electrophysiology 11/18/23 documented as of this encounter
--- OUTSIDE RECORDS SUMMARY | 2024-12-21 12:18 | XMS_ITS | Encounter Summary ---
Author Organization [facility] Address [address] [place] [address] Care Team Providers Care Sales Store Checker Name Role Phone Felicitas Melara APRN Primary Care Provider [phone] Reason for Referral * Consultation (Routine) - Closed Specialty Diagnoses / Procedures Referred By Contrené t Referred To Contact Nephrology Diagnoses Kidney disease Kay Rao MD [address] [place] [address] [place] [address] Phone: tel: fax: [facility] Nephrology, Bone & Mineral Metabolism [address] [facility] [address] [facility] [place] [address] Phone: tel: fax: Referral ID Status Reason Start Date Expiration Date V isits Requested Visits Authorized [id number] Closed Specialty Services Required 10/18/2024 04/19/2026 1 1 Encounter Details Date Type Department Care Team (Late st Contact Info) Description 10/18/2024 Community Orders Community Practice [address] [place] [address] Kay Rao MD [address] [place] [address] [place] [address] Chronic kidney disease (CKD) stage G3a/A1, [...] Recorded Patient Health Questionnaire-2 Score 0 05/30/2024 [facility] [facility] Occupat ional Health - Occupational Stress [...] Description 06/23/2025 10:40 AM EDT Office Visit [facility] [address] [place] [address] Prabhu Brown MD [address] [place] [address] Scheduled Referrals Name Type Priority Associated Diagnoses [...] documented as of this encounter Care Teams Sales Store Checker Relationship Specialty Start Date End Date Felicitas Melara APRN [address] [place] [address] PCP - General 01/29/24 documented as of this encounter
--- OUTSIDE RECORDS SUMMARY | 2024-12-21 12:18 | XMS_ITS | Encounter Summary ---
Author Organization [facility] Address [address] [place] [address] Care Team Providers Care Public Health Outreach Worker Name Role Phone Annette Melaranicaryl Mazariegos APRN Primary Care Provider [phone] Reason for Visit * Reason Onset Date Comments HCN - Patient Message 10/28/2024 Encounter Details Date Type Department Care Team ([facility] st Contact Info) Description 10/28/2024 Telephone [facility] Nephrology, Bone & Mineral Metabolism [address] [facility], [address] [place] [address] HCN - Patient Message Social [...] Recorded Patient Health Questionnaire-2 Score 0 05/30/2024 [facility] - Occupational Stress Questionnaire Answer [...] the past 12 months has th e instruMagic, gas, oil, or water [employer] threatened to shut off services in your [...] told her that we do come to [place] but the next new pt appt availability is February 2025. So the current new patients have been coming to [place] for the first visit and then will up in [place] for the rest of the visits, shewas ok with getting it scheduled in [place]. I told her the appointment letter will [...] appt date & time. Best contact number: [phone] (mobile) Optimal time of day to reach caller: ANYTIME Additional comments/information from caller: None Note: Please do not reply to this message. Follow-up communication and further actions as a result of this message need to be communicated with the patient directly, if the patient is not active onMyChart. If the patient is active on MyChart, they will receive notification of the communication/outcome via Yo. documented in this encounter Plan of Treatment Upcoming Encounters Date Type Department Care Team (Late st Contact Info) Description 06/23/2025 10:40 AM EDT Office Visit [facility] [address] [place] [address] Prabhu Brown MD [address] [place] [phone] documented as of this encounter Visit Diagnoses Not on filedocumented in this encounter Additional Health Concerns Assessment Noted Time A fall risk assessment has been complete d for the patient 06/02/2024 1:58 PM EDT A Body Mass Index follow-up plan has been documented for the patient 06/02/2024 2:45 PM EDT documented as of this encounter Care Teams Public Health Outreach Worker Relationship Specialty Start Date End Date Felicitas Melara APRN [address] [place] [address] PCP - General 01/29/24 documented as of this encounter
--- OUTSIDE RECORDS SUMMARY | 2024-12-21 12:18 | XMS_ITS | Encounter Summary ---
Author Organization [employer] ([place], [place], [place], [place], [place]) Address [address] [place] [address] Care Team Providers Care Craft Manager Name Role Phone Lalitha Linh Delilah DAVIS Primary Care Provider [phone] Lizzie Alves PA-C Unavailable [phone] Kaushik Mariscal MD Unavailable Encounter Details Date Type Department Care Team (Late st Contact Info) Description 11/23/2018 Transcribed Document [facility] Family Medicine [facility] [place] [address] ProviderChad MD [address] [place] [address] Social History Tobacco Use Types Packs/Day [...] Performed On: 11/23/2018 13:33 EDT by ELAINE CHOI, RN Event Note Event Location : Other: `1330 - pivl dc . pt dc after ambulation. Hallway - ambuated with o difficulty. Right groin stable. l ELAINE CHOI RN - 11/23/2018 13:33 EDT Electronically signed by Rekha [facility] Conversion Cake Press Operator Helper Cerner at 05/27/2022 9:20 PM CDT documented in this encounter Plan of Treatment Not on file documented as of this encounter Visit Diagnoses Not on filedocumented in this encounter Care Teams Craft Manager Relationship Specialty Start Date End Date Linh Doty, DO [address] [facility] [address] [place] [address] PCP - General Family Medicine 11/04/22 Lizzie Alves PA-C [address] [place] [address], [facility] [address] [place] [address] Hospitalist Cardiology 05/27/23 Kaushik Mariscal MD [address] [facility] [address] [place] [address] Credit Risk Specialist Electrophysiology 11/18/23 documented as of this encounter
--- OUTSIDE RECORDS SUMMARY | 2024-12-21 12:18 | XMS_ITS | Encounter Summary ---
Author Organization [employer] ([place], [place], [place], [place], [place]) Address [address] [place] [address] Care Team Providers Care Lead Embedded Software Engineer Name Role Phone Lalitha Linh Delilah DAVIS Primary Care Provider [phone] Lizzie Alves PA-C Unavailable [phone] Kaushik Mariscal MD Unavailable Encounter Details Date Type Department Care Team (Late st Contact Info) Description 11/23/2018 Transcribed Document [facility] Family Medicine [facility] [place] [address] ProviderChad MD [address] [place] [address] Social History Tobacco Use Types Packs/Day [...] Performed On: 11/23/2018 7:39 EDT by ELAINE CHOI, SARAH Height and Weight, Clinical Dosing Height Source : Stated Height Entry Format : [place] Height, Feet : 0 ft(Converted to: 0 cm, 0 Inch) Height, Inches : 70 Inch(Converted to: 5 ft 10 Inch, 177.80 cm) Clinical Height : 177.8 cm Weight Source : Standing scale Weight Entry Format : [place] Clinical Dosing Weight : 77.27 kg Weight, Pounds : 170 lb Body Surface Area (BSA) : 1.95 m2 Body Mass Index : 24.4 kg/m2 (HI) [place] Body Weight : 68 kg ELAINE CHOI [...] : No Emergency Contact #1 : Alexx- [phone]- cell number Emergency Contact #1 Phone Number : rachelienenoc. Emergency Contact #1 Relationship : - Emergency Contact #2 : - Emergency Contact #2 Phone Number : - Emergency Contact #2 Relationship : - Primary Language : Italian Communication Barrier : None ELAINE CHOI RN [...] 0 Pain Scale Used : 0-10 Scale EALINE CHOI RN - 11/23/2018 7:39 EDT Fall [...] Scale Risk Level : 0-24 Low Risk [place] Fall Interventions : Wheels locked ELAINE CHOI [...] filedocumented in this encounter Care Teams Lead Embedded Software Engineer Relationship Specialty Start Date End Date Linh Doty, [address] [place] [address] PCP - General Family Medicine 11/04/22 Lizzie Alves PA-C [address], [facility] [address] [place] [address] Hospitalist Cardiology 05/27/23 [place] [address] [place] [address] [place] [address] Draw String Knotter Electrophysiology 11/18/23 documented as of this encounter
--- OUTSIDE RECORDS SUMMARY | 2024-12-21 12:18 | XMS_ITS | Clinical Summary ---
Author Organization [facility] Address [address] [place] [id number] Care Team Providers Care Roller Pneumatic Name Role Phone Provider, No Known Primary [...] - Td or Tdap) 01/29/[address] [facility] REPLACEMENT Care Teams Roller Pneumatic Relationship Specialty Start Date End Date Provider, No Known [facility] [place] [address] PCP - General 07/31/21
--- OUTSIDE RECORDS SUMMARY | 2024-12-21 12:19 | XMS_ITS | Encounter Summary ---
Author Organization [facility] Address [address] [place] [address] Care Team Providers Care Clerical Warehouseman Name Role Phone MelaraFelicitas Delilah DENISE Primary Care Provider [phone] Encounter Details Date Type Department Care Team (Latest Contact Info) Description 12/14/2024 Travel Social History Tobacco Use Types Packs/Day [...] Recorded Patient Health Questionnaire-2 Score 0 05/30/2024 [facility] of Occupat ional Health - Occupational [...] Description 06/23/2025 10:40 AM EDT Office Visit [facility] [address] [place] [address] Prabhu Brown MD [address] [place] [address] documented as of this encounter Visit Diagnoses Not on filedocumented in this encounter Additional Health Concerns Assessment Noted Time A fall risk assessment has been complete d for the patient 12/14/2024 12:58 PM EST A Body Mass Index follow-up plan has been documented for the patient 12/14/2024 2:06 PM EST documented as of this encounter Care Teams Clerical Warehouseman Relationship Specialty Start Date End Date Felicitas Melara APRN [address] [place] [address] PCP - General 01/29/24 documented as of this encounter
--- OUTSIDE RECORDS SUMMARY | 2024-12-21 12:19 | XMS_ITS | Encounter Summary ---
Author Organization Healthcare Address [address] [place] [address] Care Team Providers Care Metal Window Screen Assembler Name Role Phone Felicitas Melara APRN Primary Care Provider [phone] Encounter Details Date Type Department Care Team (Late st Contact Info) Description 11/16/2024 Orders Only [facility] [address] [place] [phone] Myrna Zamorano Stage 3 chronic kidney disease, [...] Recorded Patient Health Questionnaire-2 Score 0 05/30/2024 [facility] - Occupational [...] the past 12 months has th e [employer], gas, oil, or water company threatened to [...] Description 06/23/2025 10:40 AM EDT Office Visit [facility] [address] [place] [address] Prabhu Brown MD [address] [place] [phone] Scheduled Orders Name Type Priority Associated Diagnoses Orde r Schedule Renal Function Panel, Plasma Lab Routine Stage 3 chronic kidney disease, unspecified whether stage 3a or 3b CKD ([facility]) Expected: 11/16/2024 (Approximate), Expires: 05/17/2026 CBC and Differential Lab Routine Stage 3 chronic kidney disease, unspecified whether stage 3a or 3b CKD ([facility]/HCC) Expected: 11/16/2024 (Approximate), Expires: 05/17/2026 Creatinine, Random, Urine Lab Routine Stage 3 chronic kidney disease, unspecified whether stage 3a or 3b CKD ([facility]/HCC) Expected: 11/16/2024 (Approximate), Expires: 05/17/2026 Protein, Random, Urine with Creatinine Lab Routine Stage 3 chronic kidney disease, unspecified whether stage 3a or 3b CKD (CMS/HCC) Expected: 11/16/2024 (Approximate), Expires: 05/17/2026 Urinalysis with reflex microscopic (Culture NOT Included) Lab Routine Stage 3 chronic kidney disease, unspecified whether stage 3a or 3b CKD ([facility]/HCC) Expected: 11/16/2024 (Approximate), Expires: 05/17/2026 PTH Intact Total Lab Routine Stage 3 chronic kidney disease, unspecified whether stage 3a or 3b CKD ([facility]) Vitamin D insufficiency Expected: 11/16/2024 (Approximate), Expires: 05/17/2026 Vitamin D 25 Hydroxy Lab Routine Stage 3 chronic kidney disease, unspecified whether stage 3a or 3b CKD ([facility]) Vitamin D insufficiency Expected: 11/16/2024 (Approximate), Expires: 05/17/2026 documented as of this encounter Visit Diagnoses Diagnosis Stage 3 chronic kidney disease, unspecified whether stage 3a or 3b CKD ([facility])- Primary Vitamin D insufficiency documented in this encounter Additional Health Concerns Assessment Noted Time A fall risk assessment has been complete d for the patient 06/02/2024 1:58 PM EDT A Body Mass Index follow-up plan has been documented for the patient 06/02/2024 2:45 PM EDT documented as of this encounter Care Teams Metal Window Screen Assembler Relationship Specialty Start Date End Date Felicitas Melara APRN [address] [place] [address] PCP - General 01/29/24 documented as of this encounter
--- OUTSIDE RECORDS SUMMARY | 2024-12-21 12:19 | XMS_ITS | Encounter Summary ---
Author Organization [employer] ([place], [place], [place], [place], [place]) Address [address] [place] [address] Care Team Providers Care Manager Card Name Role Phone Linh William DO Primary Care Provider [phone] Lizzie Alves PA-C Unavailable [phone] Kaushik Mariscal MD Unavailable Encounter Details Date Type Department Care Team (Late st Contact Info) Description 11/23/2018 Transcribed Document [facility] [place] [address] ProviderChad MD [address] [place] [address] Social History Tobacco Use Types Packs/Day [...] CDT [facility] [place] [address] GAGAN MENDOZA :1965 Visit Time:11/23/2018 Your Visit Summary Your Care Team Admitting Physician - PUNEET BROOKS MD-CAR Attending Physician - PUNEET BROOKS MD-CAR Primary Care Physician - LINH WILLIAM MD-[facility] Referring Physician - PUNEET BROOKS MD-CAR Your Diagnosis Atherosclerosis of [place] arteries of extremities with intermittent claudication, right leg, Atherosclerosis of [place] arteries of extremities with intermittent claudication, right leg Discharge Vitals Temperature 36.2 ??C Heart Rate (Monitored) 82 Respiratory Rate 31 Blood Pressure 118/66 What to do next Instructions From Your Care Team 1. No driving for 24 hrs post procedure. 2. If site bleeds- call 911. hold pressure at the site. 3. Stroke- signs and symptoms - call 911. 4. Start plavix tomorrow. 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 Follow-Up Appointments Follow Up with [facility] When Within 2 to 4 weeks Medications What How Much When Instructions Next Dose clopidogrel (Plavix 75 mg oral tablet) 1 Tablet(s) Oral Every Day Refills: 6 Pickup at [place], [place] varenicline (Chantix 1 mg oral tablet) 1 Tablet(s) Oral Two Times A Day after meals Pickup at [place] varenicline (Chantix Starter Pack 0.5 mg-1 mg oral tablet) 1 Tablet(s) Oral Two Times A Day as directed on package labeling Pickup at [place], [place] acetaminophen (Tylenol) Oral As needed for [...] Oral Two Times A Day Pharmacy Information [facility] [place]: [address] [facility] [address] [place] [phone] Take your medications faithfully. Do NOT skip [...] Document Reviewed: 02/28/2011 ExitCare?? Patient Information ??2014 [employer]. Cerebral Angiogram, Care After This sheet gives [...] and water are not available, use hand it operations specialist. ? Change your dressing as told by [...] contrast dye from your body. ??? Take esit-btd-kjogiqf and prescription medicines only as told by [...] 06/12/2014 Document Revised: 03/02/2017 Document Reviewed: 03/02/2017 ElsePictarine Interactive Patient Education ?? 2019 [employer] Moderate Conscious Sedation, Adult, Care After [...] you are awake and alert. ??? Take padq-eft-tkmtwxl and prescription medicines only as told by [...] 05/17/2016 Elsevier Interactive Patient Education ?? 2019 [employer] Emergency Awareness and Preventative Care STROKE [...] Assistance with quitting is available by contacting 2-110-MWQXNOW. This is a free resource providing counseling, support, and referral. Or you may contact your personal physician. [place] Suicide Prevention Lifeline: The National Suicide Prevention [...] between ( 163 and 369 ) Patient Name:REJI GAGAN Shy I have received and understand this information and was given the opportunity to ask questions. Patient/Newspaper Journalist Name: Patient/Newspaper Journalist Signature: Relationship to Patient: Clinician/Hospital Newspaper Journalist Signature: Date: documented in this encounter Plan of Treatment Not on file documented as of this encounter Visit Diagnoses Not on filedocumented in this encounter Care Teams Manager Card Relationship Specialty Start Date End Date Linh William, DO [address] [facility] [address] [place] [address] PCP - General Family Medicine 11/04/22 Lizzie Alves PA-C [address] [place] [address] [address] [place] [address] Hospitalist Cardiology 05/27/23 [place] [address] [place] [address] [address] [place] [address] Superintendent Pipelines Electrophysiology 11/18/23 documented as of this encounter
--- OUTSIDE RECORDS SUMMARY | 2024-12-21 12:19 | XMS_ITS | Clinical Summary ---
Author Organization Healthcare Address [address] [place] [address] Care Team Providers Care Stamping Die Try Out Worker Name Role Phone Annette Melaranicaryl Mazariegos APRN Primary Care Provider [phone] Allergies No known active allergies Medications albuterol 108 (90 Base) MCG/ACT inhaler INHALE TWO PUFFS BY MOUTH FOUR TIMES DAILY NEEDED FOR SHORTNESS OF BREATH OR wheezing Active Eliquis 5 MG tablet Take 1 tablet (5 mg) by mouth 2 (two) times a day. Active Farxiga 10 MG tablet Take 1 tablet (10 mg) by mouth 1 (one) time each day. 4 Active metoprolol succinate XL (Toprol-XL) [...] 100-62.5-25 MCG/ACT aerosol powder Inhale 1 puff. 4 Active fluticasone (Flonase) 50 MCG/ACT nasal spray [...] 1 (one) time each day. 4 Active spironolactone (Aldactone) 25 MG tablet 1 tablet (25 mg). 4 Active Magnesium 100 MG capsule Take 2 capsules by mouth 2 times a day. 5 Active ciprofloxacin- dexamethasone (CiproDEX) otic suspension instill 4 drops into the affected ear(s) twice daily for 7 days 5 Active pregabalin (Lyrica) 100 MG capsule 5 Active cetirizine (ZyrTEC) 10 MG tablet TAKE ONE TABLET BY MOUTH EVERY DAY NEEDED FOR ALLERGY SYMPTOMS 4 12/15/19 Discontinue d(Per Patient Report) furosemide (Lasix) 20 MG tablet Take 1 tablet (20 mg) by mouth 1 (one) time each day in the morning. 5 12/15/19 Discontinue d(Per Patient Report) magnesium oxide (Mag-Ox) 400 (240 Mg) MG tablet Take 1 tablet (400 mg) by mouth 3 (three) times a day. 4 12/15/19 Discontinue d(Per Patient Report) Active Problems Problem Noted Date Diagnosed Date CKD stage 3a, GFR 45-59 ml/min 12/14/2024 Coronary artery disease invo lving [place] coronary artery of [place] heart 12/14/2024 Hyperlipidemia 12/14/2024 Hyponatremia 12/14/2024 Hyperparathyroidism 06/02/2024 Acute exacerbation of CHF (congestive heart fail ure) 06/01/2024 On mechanically assisted ventilation 06/01/2024 Peripheral vascular disease 06/01/2024 Pleural effusion, bilateral 06/01/2024 Primary hyperparathyroidism [...] Encounters Date Type Department Care Team Description 12/14/2024 1:00 PM EST Office Visit [facility] Nephrology, Bone & Mineral Metabolism [address] [facility], [address] [place] [address] Prabhu Brown MD CKD stage 3a, GFR 45-59 ml/min ([facility]) (Primary Dx); Peripheral vascular disease ([facility]); Coronary artery disease involving [place] coronary artery of [place] heart, unspecified whether angina present; Hyperlipidemia, unspecified hyperlipidemia type; Hyponatremia 12/14/2024 Travel 11/16/2024 Orders Only [facility] [address] [place] [address] Myrna Zamorano Stage 3 chronic kidney disease, unspecified whether stage 3a or 3b CKD ([facility]) (Primary Dx); Vitamin D insufficiency 10/28/2024 Telephone [facility] Nephrology, Bone & Mineral Metabolism [address] [facility] [address] [facility], [address] [place] [address] HCN - Patient Message 10/18/2024 [facility] Orders [facility] [address] [place] [address] Kay Rao MD Chronic kidney disease (CKD) stage G3a/A1, moderately decreased glomerular filtration rate (GFR) between 45-59 mL/min/1.73 square meter and albuminuria creatinine ratio less than 30 mg/g ([facility]) (Primary Dx); Kidney disease from Last 3 [...] the past 12 months has th e [employer], gas, oil, or water company threatened to [...] Mass Index 25 12/14/2024 12:49 PM EST Plan of Treatment Upcoming Encounters Date Type Department Care Team (Late st Contact Info) Description 06/23/2025 10:40 AM EDT [facility] [address] [place] [address] Prabhu Brown MD [address] [place] [phone] Health Maintenance Due Date Last Done Comments [facility]-HIV Screening 1965 [facility]-Hepatitis C Screening 1965 [facility]-Medicare Annual Wellness (AWV) 1965 [facility]-/Child/Adol SDOH Screenings 1965 [facility]- SDOH Screenings 1982 [facility]-Adult SDOH Screenings 1982 [facility]-Pneumococcal Vaccine: 50 + Years (1 of 2 - PCV) 07/28/1983 [facility]-Pap Smear 1985 [facility]-Cervical Cancer Screening 1994 [facility]-HPV/Cotest 1994 CT Colonography 2009 Colonoscopy 2009 FIT 2009 FOBT 2009 Sigmoidoscopy 2009 [facility]-Breast Cancer Screening 2014 [facility]-Zoster Vaccines (2 of 2) 04/23/2020 02/27/2020 [facility]-RSV Vaccine: 60+ Years o r (1 - Risk 60-74 years 1-dose series) 2024 [facility]-YDXLC-14 Vaccine (3 - season) 2024 12/22/2020, 04/28/2020 [facility]-Influenza Vaccine (#1) 10/10/202412/14, 01/29/2021 [facility]-Bone Density Scan 12/17/2024 12/18/2023 , 11/30/2023 [facility]-Depression Screening 05/30/2025 05/30/2024 FIT-DNA 10/27/2027 10/26/2024 [facility]-Colorectal Cancer Screening 10/27/2027 [facility]-DTaP,Tdap,and Td Vaccine s (2 - Td [...] Health Maintenance Insurance [employer] Care Teams Stamping Die Try Out Worker Relationship Specialty Start Date End Date Felicitas Melara APRN [address] [place] [address] PCP - General 01/29/24
--- OUTSIDE RECORDS SUMMARY | 2024-12-21 12:19 | XMS_ITS | Clinical Summary ---
Author Organization [employer] ([place], [place], [place], [place], [place]) Address [address] [place] [address] Care Team Providers Care Life Tester [employer] Name Role Phone Linh Doty DO Primary Care Provider [phone] Lizzie Alves PA-C Unavailable Kaushik Mariscal MD [...] 75 mg tabletIndications :Atherosclerotic heart disease of [place] coronary artery without angina pectoris TAKE ONE [...] Description 11/17/2024 3:00 AM EDT Clinical Support [facility] Electrophysiology [address] [place] [address] Kaushik Mariscal MD Encounter for adjustment or management of cardiac device (Primary Dx); Ischemic cardiomyopathy with implantable cardioverter-defibrill ator (ICD); Chronic combined systolic and diastolic congestive heart failure (HCC) 10/17/2024 3:00 AM EDT Clinical Support [facility] Electrophysiology [address] [place] [address] Kaushik Mariscal MD Encounter for adjustment or management of cardiac device (Primary Dx); Ischemic cardiomyopathy with implantable cardioverter-defibrill ator (ICD); Chronic combined systolic and diastolic congestive heart failure (HCC) 10/11/2024 3:00 AM EDT Clinical Support [facility] Electrophysiology [address] [place] [address] Kaushik Mariscal MD Encounter for adjustment [...] Date Mendez rded Speak language other than [place] at home Not on file 02/27/2023 [...] Tdap) 01/29/2031 Medical Devices Implanted Type Area Refinery Operator Helper Cracking Unit Device Identifier Shelf Expiration Date Model / Serial / Lot Icd-08/26/2021 Implanted:08/26 by aKushik Mariscal MD (Quantity not on file) ICD [employer] 500Q / [id number] / Insurance [facility] Care Teams Life Tester Outboard Motors Relationship Specialty Start Date End Date Linh Doty DO [address] [facility] [address] [place] [address] PCP - General Family Medicine 11/04/22 Lizzie Alves PA-C [address] [facility], [facility] [address] [place] [address] Hospitalist Cardiology 05/27/23 Kaushik Mariscal MD [address] [facility] [address] [place] [address] Event Promotions Coordinator Electrophysiology 11/18/23
--- OUTSIDE RECORDS SUMMARY | 2024-12-21 12:19 | XMS_ITS | Referral Summary ---
Author Organization [employer] ([place], [place], [place], [place], [place]) Address [address] [place] [address] Care Team Providers Care Humidifier Maintenance Worker Name Role Phone LuisLinh collado Delilah DAVIS Primary Care Provider Lizzie Alves PA-C Unavailable [phone] Kaushik Mariscal MD Unavailable Encounters Date Type Department Care Team Description 11/17/2024 3:00 AM EDT Clinical Support [facility] Electrophysiology [address] [place] [address] Kaushik Mariscal MD Encounter for adjustment or management of cardiac device (Primary Dx); Ischemic cardiomyopathy with implantable cardioverter-defibrill ator (ICD); Chronic combined systolic and diastolic congestive heart failure (HCC) 10/17/2024 3:00 AM EDT Clinical Support [facility] Electrophysiology [address] [place] [address] Kaushik Mariscal MD Encounter for adjustment or management of cardiac device (Primary Dx); Ischemic cardiomyopathy with implantable cardioverter-defibrill ator (ICD); Chronic combined systolic and diastolic congestive heart failure (HCC) 10/11/2024 3:00 AM EDT Clinical Support [facility] Electrophysiology [address] [place] [address] Kaushik Mariscal MD Encounter for adjustment [...] 75 mg tabletIndications :Atherosclerotic heart disease of [place] coronary artery without angina pectoris TAKE ONE [...] on file Medical Devices Implanted Type Area Operations Leader Device Identifier Shelf Expiration Date Model / Serial / Lot Icd-08/26/2021 Implanted:08/26 by Kaushik Mariscal MD (Quantity not on file) ICD [employer] 500Q / [id number] / Insurance [facility] AD[facility] Care Teams Humidifier Maintenance Worker Relationship Specialty Start Date End Date Linh Doty, DO [address] [facility] [address] [place] [address] PCP - General Family Medicine 11/04/22 Lizzie Alves PA-C [address] [facility], [facility] [address] [place] [address] Hospitalist Cardiology 05/27/23 Kaushik Mariscal MD [address] [facility] [address] [place] [address] Glove Turner Electrophysiology 11/18/23
--- OUTSIDE RECORDS SUMMARY | 2024-12-21 12:19 | XMS_ITS | Encounter Summary ---
Author Organization [employer] ([place], [place], [place], [place], [place]) Address [address] [place] [address] Care Team Providers Care Performing Arts Technicians Name Role Phone Lalitha Linh Delilah DAVIS Primary Care Provider [phone] Lizzie Alves PA-C Unavailable [phone] Kaushik Mariscal MD Unavailable Encounter Details Date Type Department Care Team (Late st Contact Info) Description 11/23/2018 Transcribed Document [facility] Family Medicine [address] [place] [address] ProviderChad MD [address] [place] [address] Social History Tobacco Use Types Packs/Day [...] Document Reviewed: 02/28/2011 ExitCare? Patient Information ?2013 [employer] [facility]. Cerebral Angiogram, Care After This sheet gives [...] and water are not available, use hand level vial sealer. ? Change your dressing as told by [...] contrast dye from your body. ??? Take kaac-smr-dscddoe and prescription medicines only as told by [...] 06/12/2014 Document Revised: 03/02/2017 Document Reviewed: 03/02/2017 [employer] Interactive Patient Education ? 2019 Elsevier Inc. [...] you are awake and alert. ??? Take yrbd-rzk-dfvuzta and prescription medicines only as told by [...] 11/16/2013 Document Revised: 06/30/2016 Document Reviewed: 05/17/2016 [employer] Interactive Patient Education ? 2019 [employer] documented in this encounter Plan of Treatment Not on file documented as of this encounter Visit Diagnoses Not on filedocumented in this encounter Care Teams Performing Arts Technicians Relationship Specialty Start Date End Date Luistobias Linh L, DO [address] [facility] [address] [place] [address] PCP - General Family Medicine 11/04/22 Lizzie Alves PA-C [address] [facility], [facility] [address] [place] [address] Hospitalist Cardiology 05/27/23 Kaushik Mariscal MD [address] [facility] [address] [place] [address] Cutter Out Electrophysiology 11/18/23 documented as of this encounter
--- OUTSIDE RECORDS SUMMARY | 2024-12-21 12:19 | XMS_ITS | Clinical Summary ---
Author Organization [facility] Address [address] [place] [address] Phone Care Team Providers Care Rack Loader Name Role Phone Fracisco DALTON, Gilson Begum Unavailable [phone] [ ] Conditions or Problems Problem Name Problem Code Onset Date Status Entry Date Provider Comment Standard Description Annotate Dermatitis due to drug AND/OR medicine taken internally 71141674 (SNOMED CT) 08/21 Active 08/21 Gilson Yap [...] subsequent encounter Cellulitis/wo und infection, chest wall 91290896 (SNOMED CT) 07/26 Active 07/26 Sherri Herndon Cellulitis of chest wall Ischemic Cardiomyopath y 088603620 (SNOMED CT) 07/26 Active 07/26 Sherri Herndon Generalized ischemic myocardial dysfunction Nicotine dependence, cigarettes 87858043 (SNOMED CT) 07/26 Active 07/26 Sherri Herndon Cigarette smoker COPD 70930713 (SNOMED CT) 07/26 Active 07/26 Sherri Herndon Chronic obstructive pulmonary disease Acute respiratory failure with hypoxia 61926351 (SNOMED CT) 07/26 Active 07/26 Sherri Herndon Acute respiratory failure Hypoalbuminem ia 821555808 (SNOMED CT) 07/26 Active 07/26 Sherri Herndon Hypoalbuminemia Hypocalcemia 5685497 ([facility] CT) 07/26 Active 07/26 Sherri Herndon Hypocalcemia Thrombocytope delia, secondary D69.59 (ICD-10-CM ) 07/26 Active 07/26 Sherri Herndon Other secondary thrombocytopenia Hyponatremia 11942701 ([facility] CT) 07/26 Active 07/26 Sherri Herndon Hyponatremia Medications Medication Instructions Start Date Stop Date Generic Name NDC Provider HYDROCODONE-ROSE TAMINOPHEN 5-325 MG TABS 1 Tab, as needed, Oral, every 8 hours hydrocodone-aceta minophen 31444293219 Faina Lamas CARVEDILOL 12.5 MG TABS 1 Tab, Oral, twice a day carvedilol 93878747565 Faina Lamas CEFDINIR 300 MG CAPS 1 Cap, Oral, every 12 hours cefdinir 60085838651 Faina Lamas DOXYCYCLINE HYCLATE 100 MG CAPS 1 Cap, Oral, twice a day doxycycline hyclate 49999480945 Faina Lamsa FLORASTOR 250 MG CAPS 1 Cap, Oral, twice a day saccharomyces boulardii 57218208540 Faina Lamas FLUTICASONE PROPIONATE 50 MCG/ACT SUSP 2 [place], as needed, Nasal, Daily fluticasone propionate 52239994317 Faina Lamas FOLIC ACID 1 MG TABS 1 Tab, Oral, Daily folic acid 47641518319 Faina Lamas FUROSEMIDE 20 MG TABS 1 Tab, Oral, Daily furosemide 10064366932 Faina Lamas GABAPENTIN 600 MG TABS 1 Tab, Oral, three times a day gabapentin 66028843105 Faina Lamas LISINOPRIL 20 MG TABS 1 Tab, Oral, At Bedtime lisinopril 14114130521 Faina Lamas NICOTINE STEP 1 21 MG/24HR PT24 1 Patch, TransDermal, Daily nicotine 31448266526 Faina Vossuelalessia Lamas PANTOPRAZOLE SODIUM 40 MG TBEC 1 Tab, Oral, Daily pantoprazole 54909829508 Faina Du Lamas POTASSIUM CHLORIDE ER 20 MEQ CR-TABS 1 Tab, Oral, Daily potassium chloride 47797796823 Fainacandice Vossuelalessia Lamas TOPIRAMATE 25 MG TABS 1 Tab, Oral, At Bedtime topiramate 00758424123 Faina CantuHammad Lamas VITAMIN D (ERGOCALCIFEROL ) 1.25 MG (04104 UT) CAPS 1 Cap, Oral, Weekly ergocalciferol (vitamin d2) 26784460584 Fainacandice Lamas Medications Administered No information available. [...] Name Date Entry Date CPT-sl STAT Labs CPT-19011 CMP [id number] CBC with Differential 2021 CPT-48181 C- reactive protein CPT-Cooral Continue oral antibiotics [...]
--- OUTSIDE RECORDS SUMMARY | 2024-12-21 12:19 | XMS_ITS | Encounter Summary ---
Author Organization [employer] ([place], [place], [place], [place], [place]) Address [address] [place] [address] Care Team Providers Care Liquefaction And Regasification Helper Name Role Phone Lalitha Linh Delilah DAVIS Primary Care Provider [phone] Lizzie Alves PA-C Unavailable [phone] Kaushik Mariscal MD Unavailable Encounter Details Date Type Department Care Team (Late st Contact Info) Description 11/23/2018 Transcribed Document [facility] [place] [address] [place] [address] ProviderChad MD [address] [place] [address] Social History Tobacco Use Types Packs/Day [...] On: 11/23/2018 13:18 EDT by ELAINE CHOI computer installer Documentation Patient Disposition, General : Discharge Discharge To : Other: dc per wheelchair. IV Discontinued : Yes Personal Belongings With Patient : Yes ELAINE CHOI RN - 11/23/2018 13:18 EDT Electronically signed by Rekha [facility] Conversion Medical Researcher Cerner at 05/27/2022 9:11 PM CDT documented in this encounter Plan of Treatment Not on file documented as of this encounter Visit Diagnoses Not on filedocumented in this encounter Care Teams Liquefaction And Regasification Helper Relationship Specialty Start Date End Date Linh Doty, 8 [facility] [address] [place] [address] PCP - General Family Medicine 11/04/22 Lizzie Alves PA-C [address] [place] [address], [facility] [address] [place] [address] Hospitalist Cardiology 05/27/23 Kaushik Mariscal MD [address] [facility] [address] [place] [address] Audio Narrator Electrophysiology 11/18/23 documented as of this encounter
--- OUTSIDE RECORDS SUMMARY | 2024-12-21 12:20 | XMS_ITS | Data Portability ---
Author Organization [facility] [employer] [place] [facility] Address [address] [facility] [address] [place] [address] Care Team Providers Care Healthcare Consultant Name Role Phone PHONG WILLIAM Primary Care [...] By Organization Details Last Modified Time 01/27/2017 [id number] 1. Tobacco cessation stongly encouraged. 2. EGD [...] thyro id No observ ation record ed. [email or web address] Not Available 2016 10:51:38 01/27/20 17 01/22/2017 [place], thyro id No observ ation record ed. [email or web address] [facility] (Radiology) [address] , [place], [address], 01/27/2017 13:16:29 Result Notes None recorded. 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 Procedures Surgical History Date Name Laterality Status Provider Name and Address Organization Details Recorded Time 07/25/19 22 removal of implantable cardiac pacemaker completed [facility] 07/29/2021 10:09:55 07/03/19 22 replacement of electronic heart device, pulse generator completed [facility] 07/29/2021 10:16:21 transesophageal echocardiography completed [facility] 07/29/2021 10:10:01 Imaging Results None [...] Updated DateTime 2 167.64 cm 22.6 kg/m2 21204.9 3 g 76 /min 91 % 91 % 4 L/min 106/70 mm[Hg] Mireille Deshpande [facility] 2 10:19:54 Date Recorded Body weight Body mass index (BMI) Body height Body temperature Provider Name and Address Organization Details Last Updated DateTime 01/27/2017 84048.09 g 29.3 kg/m2 167.64 cm 97.5 [degF] Isabell Ramoscharley [facility] 01/27/2017 16:15:45 Social History Question Answer Notes LastModified by Organizat ion Details LastModified Time Tobacco Smoking Status Former Smoker Mireille Deshpande [facility] 07/30/2021 10:13:31 What Was The Date Of Your Most Recent Tobacco Screening? 07/30/2021 Information not available 07/30/2021 Has Tobacco Cessation Counseling Been Provided? No [email or web address] Information not available 07/30/2021 Sex: Unknown Functional [...] Condition Response Anesthesia Complications N Heart Attack (IA) Y Heart Disease Y Bleeding Disorder N Cancer N Hypertension Y Alcohol Overuse/Alcohol Abuse N Gynecological HistoryNo gynecological history recorded. Obstetrics History GPAL:G 0 P 0 0 0 0 Past Encounters Encounter ID Performer Location Encounter Start Date Encounter Closed Date Diagnosis/Indication Diagnosis SNOMED-CT Code Diagnosis ICD10 Code Diagnosis IMO Codes Diagnosis Note [id number] KRISTOPHER AVILA III, [place] [facility] [address] [place] [address] 01/27/2017 15:44:32 01/28/2017 09:23:17 Dysphagia 12927384 R13.10 Nicotine dependence 5629 4008 F17.200 Thyroid nodule 915149592 E04.1 Cyst of thyroid 04903000 E04.1 Chronic hoarseness 02624 34686 105 R49.0 Hypertroph y of nasal turbinates 70188257 J34.3 Excessive belching 33146 7000 R14.2 [id number] ABBE HOLLEY MD CARD[facility] [address] [place] [address],[address] [place] [address] 07/30/2021 10:05:00 07/30/2021 10:27:26 Wound of skin 011851226 T14.8XXD Patient's incision is well-heale d. Follow-up as noted above. Health Concerns Section Related Observation LastModified by Organization Detai ls LastModified Time None Recorded Concern Status LastModified by Organization Details LastModified Time None Recorded Advance Directives Directive None Recorded Payers Insurance Date Sequence Insurance Name Policy Number Policy Harding Covered Member ID Harding Member ID Guarantor Name 07/30/2021 1 [place] Lena Chandler [id number] Lena Chandler 04/21/2018 1 *SELF PAY* Pina Chandler 08/06/2021 1 [employer] (MEDICARE REPLACEMENT/ ADVANTAGE - HMO) Lena Chandler [id number] Lena Chandler Notes Date Note Type Note [...] or Barium swallow. KRISTOPHER AVILA III, MD [address] [place] [address], [phone], [facility] 01/27/2017 17:33:10 07/30/2021 text/html Mrs. 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 She is normally followed by Dr. Mariscal. He reports no problems with wound healing and is anticipating a follow-up with Dr. Mariscal later this month. ABEB HOLLEY MD [address] [place] [address], [phone], [facility] 07/30/2021 10:24:58 OBGyn Episode No OBEpisode recorded.
[2024-12-21 13:00] LABS: Hematocrit 52.3 % (37.0-47.0); Hemoglobin 17.3 g/dL (12.2-16.2); Immature Granulocytes % 0.8 %; Mean Corpuscular HGB Conc 33.1 g/dL (31.8-35.4); Mean Corpuscular Hemoglobin 31.5 pg (27.0-31.2); Mean Corpuscular Volume 95.3 fl (81-99); Nucleated Red Blood Cells % 0 %; Platelet Count 75 K/mm3 (142-424); Red Blood Count 5.49 M/mm3 (4.20-5.40); Red Cell Distribution Width-SD 51.7 fL; White Blood Count 10.7 K/mm3 (4.8-10.8)
[2024-12-21 13:23] LABS: Alanine Aminotransferase 12 U/L (12-78); Albumin Level 4.4 g/dl (3.5-5.0); Albumin/Globulin Ratio 1.4 (1.1-1.8); Alkaline Phosphatase 122 U/L (38-126); Anion Gap 12.0 mEq/L (5-15); Aspartate Amino Transferase 30 U/L (14-36); Bilirubin,Total 0.6 mg/dl (0.2-1.3); Blood Urea Nitrogen 8 mg/dl (7-17); Calcium 10.8 mg/dl (8.4-10.2); Carbon Dioxide 30 mmol/L (22.0-30.0); Chloride 89 mmol/L (98-107); Creatinine,Serum 1.10 mg/dl (0.52-1.04); Estimated Glomerular Filt Rate 51 ml/min (>60); GFR (African American) 61 ML/MIN (>60); Globulin 3.1 g/dL (1.3-3.2); Glucose 77 mg/dl (74-100); Potassium 5.0 mmoL/L (3.5-5.1); Sodium 126 mmol/L (136-145); Total Protein,Serum 7.5 g/dl (6.3-8.2)
== END 2024-12-21 23:59 | disposition home or self-care (01) ==
LOC: LAB 12:16
PROVIDERS: PCP Nurse Practitioner Family; Visit Provider Internal Medicine Medical Oncology
DX: D69.6 Thrombocytopenia, unspecified (principal)
CPT/HCPCS: 36415; 80053; 85025

== ENCOUNTER 2025-01-03 14:28 | Outpatient (CLI) | payer MEDICARE, SELFPAY ==
--- OUTSIDE RECORDS SUMMARY | 2024-10-11 02:00 | XMS_ITS | Encounter Summary ---
Author Organization [employer] ([place], [place], [place], [place], [place]) Address [address] [place] [address] Care Team Providers Care Underground Electrician Name Role Phone LuisLinh collado Delilah DAVIS Primary Care Provider [phone] Lizzie Alves PA-C Unavailable [phone] Kaushik Mariscal MD Unavailable Reason for Visit * Reason Comments Pacemaker /ICD Home Monitoring Encounter Details Date Type Department Care Team (Late st Contact Info) Description 10/11/2024 3:00 AM EDT Clinical Support [facility] Electrophysiology [address] [place] [address] Kaushik Mariscal MD 1401 [facility] [address] [place] [id number] Encounter for adjustment or management of cardiac [...] (HCC) documented in this encounter Care Teams Underground Electrician Relationship Specialty Start Date End Date Linh Doty, 8 [facility] [address] [place] [address] PCP - General Family Medicine 11/04/22 Lizzie Alves PA-C [address] [place] [address], [facility] [address] [place] [address] Hospitalist Cardiology 05/27/23 Kaushik Mariscal MD [address]01 [facility] [address] [place] [address] Dairy Husbandman Electrophysiology 11/18/23 documented as of this encounter
--- OUTSIDE RECORDS SUMMARY | 2024-10-17 02:00 | XMS_ITS | Encounter Summary ---
Author Organization [employer] ([place], [place], [place], [place], [place]) Address [address] [place] [address] Care Team Providers Care Tornado Chaser Name Role Phone LuisLinh collado Delilah DAVIS Primary Care Provider [phone] Lizzie Alves PA-C Unavailable [phone] Kaushik Mariscal MD Unavailable Reason for Visit * Reason Comments Pacemaker /ICD Home Monitoring Encounter Details Date Type Department Care Team (Late st Contact Info) Description 10/17/2024 3:00 AM EDT Clinical Support [facility] Electrophysiology [address] [place] [address] Kaushik Mariscal MD 1401 [facility] [address] [place] [id number] Encounter for adjustment or management of cardiac [...] (HCC) documented in this encounter Care Teams Tornado Chaser Relationship Specialty Start Date End Date Linh Doty, 8 [facility] [address] [place] [address] PCP - General Family Medicine 11/04/22 Lizzie Alves PA-C [address] [place] [address], [facility] [address] [place] [address] Hospitalist Cardiology 05/27/23 Kaushik Mariscal MD 14[address] [facility] [address] [place] [address] Fruit Thinner Electrophysiology 11/18/23 documented as of this encounter
--- OUTSIDE RECORDS SUMMARY | 2024-11-17 02:00 | XMS_ITS | Encounter Summary ---
Author Organization [employer] ([place], [place], [place], [place], [place]) Address [address] [place] [address] Care Team Providers Care Boulevard Glassware Replacer Name Role Phone LuisLinh collado Delilah DAVIS Primary Care Provider [phone] Lizzie Alves PA-C Unavailable [phone] Kaushik Mariscal MD Unavailable Reason for Visit * Reason Comments Pacemaker /ICD Home Monitoring Encounter Details Date Type Department Care Team (Late st Contact Info) Description 11/17/2024 3:00 AM EDT Clinical Support [facility] Electrophysiology [address] [place] [address] Kaushik Mariscal MD 14[address] [facility] [address] [place] [id number] Encounter for adjustment or management of cardiac [...] (HCC) documented in this encounter Care Teams Boulevard Glassware Replacer Relationship Specialty Start Date End Date Linh Doty, 8 [facility] [address] [place] [address] PCP - General Family Medicine 11/04/22 Lizzie Alves PA-C [address] [place] [address], [facility] [address] [place] [address] Hospitalist Cardiology 05/27/23 Kaushik Mariscal MD [address] [facility] [address] [place] [address] Fish Farm Laborer Electrophysiology 11/18/23 documented as of this encounter
--- OUTSIDE RECORDS SUMMARY | 2024-12-14 13:00 | XMS_ITS | Encounter Summary ---
Author Organization [facility] Address [address] [place] [address] Care Team Providers Care Welfare Supervisor Name Role Phone Felicitas Melara APRN Primary Care Provider [phone] Reason for Referral * Consultation (Routine) - Authorized Specialty Diagnoses / Procedures Referred By Contac t Referred To Contact Diagnoses Chronic kidney disease (CKD), stage 2 Prabhu Brown MD [address] [place] [address] Phone: tel: fax: Referral ID Status Reason Start Date Expiration Date V isits Requested Visits Authorized [id number] Authorized 12/14/2024 06/15/2026 1 1 Reason for Visit * Reason Comments Consult * Consultation (Routine) - Closed Specialty Diagnoses / Procedures Referred By Contac t Referred To Contact Nephrology Diagnoses Kidney disease Kay Rao MD [address] [facility] [address] [place] [address] Phone: tel: fax: [facility] Nephrology, Bone & Mineral Metabolism [address], [address] [place] [address] Phone: tel: fax: Referral ID Status Reason Start Date Expiration Date V isits Requested Visits Authorized [id number] Closed Specialty Services Required 10/18/2024 04/19/2026 1 1 Encounter Details Date Type Department Care Team (Latest Contact Info) Description 12/14/2024 1:00 PM EST Office Visit [facility] Nephrology, Bone & Mineral Metabolism [address], [address] [place] [address] Prabhu Brown MD [address] [place] [address] CKD stage 3a, GFR 45-59 ml/min (CMS/HCC) (Primary Dx); Peripheral vascular disease (CMS/HCC); Coronary artery disease involving confederated coos coronary artery of confederated coos heart, unspecified whether angina present; Hyperlipidemia, unspecified [...] Recorded Patient Health Questionnaire-2 Score 0 05/30/2024 [facility] [place] - Occupational Stress [...] the past 12 months has th e [employer], gas, oil, or water company threatened to [...] is being evaluated by Dr. Falcon at [facility]. ROS Review of Systems All other systems [...] Insecurity: No Food Insecurity (02/27/2023) Received from [employer] ([place], [place], [place], [place], [place]) Food Insecurity [...] min Stress: No Stress Concern Present (06/02/2024) [place] [place] [facility] - Occupational Stress Questionnaire Feeling of Stress : Not at all Social Connections: Low Risk (02/27/2023) Received from [employer] ([place], [place], [place], [place], [place]) Family and Community Support Help with Day to Day Activities: Not on file Feeling Lonely or Isolated: Not on file Intimate Partner Violence: Not At Risk (06/02/2024) Humiliation, Afraid, Rape, and Kick questionnaire Fear of Current or Ex-Partner: No Emotionally Abused: No Physically Abused: No Sexually Abused: No Housing Stability: Low Risk (02/27/2023) Received from [employer] ([place], [place], [place]) Housing Stability Living situation today: Not [...] , CAUR , CALCIUMUR , PHOSUR , [id number] , [id number] , CREATUR MBD: Lab Results Component Value [...] , LH , PROLACTIN , TSH , A8AOEAM , FREET4 , CORTISOL Labs from [facility] CBC: WBC 12.9, HGB 17.4, PLT 82 RFP: Na 124, K 4.3, Cl 89, CO2 29, AGAP 10, BUN 14, Cr 1.10, EGFR 51, Glu 82, Ca 10.2, Phos 3.4, vit d 22.9, alb 3.7, PTH 199 UA: Negative blood, negative protein, SG <<1.005 Urine PCR <0.2 Imaging: CTA Abdomen 11/13/23 [facility] [place] [address]CF Scan Report SignedPatient:Lena ChandlerMR#: [id number]: [id number]:[id number]/Sex: 58 / FADM Date: 11/13/23Loc: RADAttending Dr: Silvia Bailey APRNOrdering Physician: Silvia Baileyate of Service: 11/13/23Procedure(s): CT angio abdomen/femoralAccession Number(s): [id number]: Silvia Bailey APRN; Felicitas Melara APRN; Clark [...] She is getting repeat labs tomorrow at [facility] and will follow up then if not [...] SGLT2 inhibitor which is a normal response. 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 - Continue Farxiga 10 mg - Continue Spironolactone 25 mg - We discussed avoiding ibuprofen and other nsaids - Repeat labs tomorrow to check sodium level RTC in ~6 months in [facility] Prabhu Brown MD Division of Nephrology [facility] Counseling Documentation: The patient was counseled regarding COUNSELING TOPICS: diagnostic results, prognosis, risks and benefit of treatment options, risk factor reductions, instructions for management, patient and family education, medication changes, diagnostic impressions, Heart healthy diet, regular physical activity and weight control, Avoidance of NSAIDs and other nephrotoxins, and research physicist nature of condition. Education provided was verbal [...] Expiration Date: 06/17/2026 [facility] Urinalysis with reflex microscopic (Culture NOT Included) Standing Status: Future Expected Date: 06/12/2025 Expiration Date: 06/17/2026 [facility] Vitamin D 25 Hydroxy Standing Status: Future Expected Date: 06/12/2025 Expiration Date: 06/17/2026 [facility] PTH Intact Total Standing Status: Future Expected Date: 06/12/2025 Expiration Date: 06/17/2026 [facility] Albumin-creatinine ratio, urine, random Standing Status: Future Expected Date: 06/12/2025 Expiration Date: 06/17/2026 [facility]: [facility] Protein, Random, Urine with Creatinine Standing Status: Future Expected Date: 06/12/2025 Expiration Date: 06/17/2026 [facility] Renal Function Panel, Plasma Standing Status: Future Expected Date: 06/12/2025 Expiration Date: 06/17/2026 Release to patient in MyChart: Immediate Follow Up Nephrology [facility] Follow up Standing Status: Future Expected Date: [...] Function Panel, Plasma Coronary artery disease involving confederated coos coronary artery of confederated coos heart Hyperlipidemia Hyponatremia I confirm that I have addressed the patient's longitudinal multifaceted and complex health related active and chronic conditions that will require ongoing care with myself or someone on my team. [1] Past Medical History: Diagnosis Date Atherosclerotic heart disease of confederated coos coronary artery without angina pectoris Coronary artery [...] CARDIAC DEFIBRILLATOR PLACEMENT N/A Implantable Cardioverter-Defibrillator from [employer] OTHER SURGICAL HISTORY N/A Transcath Placement Of Intrathoracic Carotid Artery Stent from [employer] [4] Family History Problem Relation Name Age of Onset Hypertension Father [5] No Known Allergies documented in this encounter Plan of Treatment Upcoming Encounters Date Type Department Care Team (Late st Contact Info) Description 06/23/2025 10:40 AM EDT Office Visit [facility] [address] [place] [address] Prabhu Brown MD [address] [place] [address] Scheduled Orders Name Type Priority [...] Routine CKD stage 3a, GFR 45-59 ml/min ([facility]) Expected: 06/13/2025 (Approximate), Expires: 01/13/2026 documented as of this encounter Visit Diagnoses Diagnosis CKD stage 3a, GFR 45-59 ml/min ([facility])- Primary Peripheral vascular disease ([facility]) Unspecified peripheral vascular disease Coronary artery disease involving confederated coos coronary artery of confederated coos heart, unspecified whether angina present Hyperlipidemia, unspecified hyperlipidemia type Hyponatremia Hyposmolality and/or hyponatremia documented in this encounter Additional Health Concerns Assessment Noted Time A fall risk assessment has been complete d for the patient 12/14/2024 12:58 PM EST A Body Mass Index follow-up plan has been documented for the patient 12/14/2024 2:06 PM EST documented as of this encounter Care Teams Welfare Supervisor Relationship Specialty Start Date End Date Felicitas Melara APRN [address] [place] [address] PCP - General 01/29/24 documented as of this encounter
--- OUTSIDE RECORDS SUMMARY | 2024-12-19 03:00 | XMS_ITS | Encounter Summary ---
Author Organization [employer] ([place], [place], [place], [place], [place]) Address [address] [place] [address] Care Team Providers Care Auto Dismantler Name Role Phone LuisLinh collado Delilah DAVIS Primary Care Provider [phone] Lizzie Alves PA-C Unavailable [phone] Kaushik Mariscal MD Unavailable Reason for Visit * Reason Comments Pacemaker /ICD Home Monitoring Encounter Details Date Type Department Care Team (Late st Contact Info) Description 12/19/2024 3:00 AM EST Clinical Support [facility] Electrophysiology [address] [place] [address] Kaushik Mariscal MD [address] [facility] [address] [place] [id number] Encounter for adjustment or management of cardiac [...] Date Mendez rded Speak language other than Norwegian at home Not on file 02/27/2023 Want [...] (HCC) documented in this encounter Care Teams Auto Dismantler Relationship Specialty Start Date End Date Linh Doty, [address] [facility] [address] [place] [address] PCP - General Family Medicine 11/04/22 Lizzie Alves PA-C [address] [facility], [facility] [address] [place] [address] Hospitalist Cardiology 05/27/23 Kaushik Mariscal MD [address] [facility] [address] [place] [address] Junior Net Developer Electrophysiology 11/18/23 documented as of this encounter
--- NOTE | 2025-01-03 14:30 | CA_ITS ---
APPROVED REPORT EXAM: Comprehensive 2D, Doppler, and color-flow Echocardiogram Arbitrator: Adilia Real CRT Ht: 5 ft 6 in Wt: 157lbs BSA: 1.80 BP: 133/80 mmHg Indications: LV function HFrEF, HTN, CABG, AICD 2D Dimensions LA Volume 23.90 mL LA Volume Index 12.90 mL/m2 (M/F) 16-34 M-Mode Dimensions RVDd 3.72 cm (0.9-2.6) LA Diam 3.79 cm (1.9-4.0) LVDd 4.45 cm (3.5-5.7) LVDs 3.23 cm (3.5-5.7) IVSd 1.37 cm (0.6-1.1) PWd 0.57 cm (0.6-1.1) EF (Teich) 53.50% FS 27.40% EDV (Teich) 90.10 mL TAPSE 1.93 (<1.7) ESV (Teich) 41.90 mL LV Diastology E Decel Time 123 (160-240 msec) E/A Ratio 0.44 MED A' 10.70 cm/s LAT A' 8.80 cm/s Aortic Valve AO Peak GR. 4.60 mmHg Mitral Valve MV A Velocity 73.0 (40-130 cm/s) E/A Ratio 0.44 Tricuspid Valve TR P. Velocity 253.00 cm/s RAP Estimate 10.00 mmHg RVSP 35.50 mmHg Left Ventricle The left ventricle is normal size. Left ventricular systolic function is normal. The left ventricular ejection fraction is within the normal range. There is increased left ventricular wall thickness. There is normal LV segmental wall motion. Transmitral Doppler flow pattern suggests impaired LV relaxation. LVEF is 55%. Right Ventricle The right ventricle is moderately dilated. The right ventricular systolic function is mildly to moderately reduced. A device lead is present in the right ventricle. Atria The left atrium size is normal. The right atrium size is normal. There is no color Doppler evidence of interatrial shunt. Aortic Valve The aortic valve is mildly thickened. There is no hemodynamically significant aortic valvular stenosis. No aortic regurgitation is present. Mitral Valve The mitral valve is normal in structure. No evidence of mitral valve stenosis. Trace mitral regurgitation is present. Tricuspid Valve The tricuspid valve leaflets are thin and pliable. Mild tricuspid regurgitation. RVSP is normal. Pulmonic Valve The pulmonary valve is grossly normal in structure. Trace pulmonic valve regurgitation is present. Great Vessels The aortic root is normal in size. IVC is normal in size and collapses >50% with inspiration. Pericardium There is no pericardial effusion. Other Information Study Quality: Fair Conclusion Normal biventricular systolic function (LVEF 55%). Moderate RV dilation with mild to moderate reduction in RV function. Mild TR. Electronically signed by : Clarita Sanz MD 01/18/2025 12:45:00
--- OUTSIDE RECORDS SUMMARY | 2025-01-03 14:39 | XMS_ITS | Clinical Summary ---
Author Organization [facility] Address [address] [place] [id number] Care Team Providers Care Nutrition Assistant Name Role Phone Provider, No Known [...] Td or Tdap) 01/29/2031 021 Insurance [facility] MEDICARE REPLACEMENT Care Teams Nutrition Assistant Relationship Specialty Start Date End Date Provider, No Known [facility] [place] [address] PCP - General 07/31/21
--- OUTSIDE RECORDS SUMMARY | 2025-01-03 14:39 | XMS_ITS | Encounter Summary ---
Author Organization [employer] ([place], [place], [place], [place], [place]) Address [address] [place] [address] Care Team Providers Care Relay Checker Name Role Phone Lalitha Linh Delilah DAVIS Primary Care Provider [phone] Lizzie Alves PA-C Unavailable [phone] Kaushik Mariscal MD Unavailable Encounter Details Date Type Department Care Team (Late st Contact Info) Description 11/23/2018 Transcribed Document [facility] [place] Family Medicine [address] [place] [address] ProviderChad MD [address] [place] [address] Social History Tobacco Use Types Packs/Day [...] Document Reviewed: 02/28/2011 ExitCare? Patient Information ?2013 Let [facility]. Cerebral Angiogram, Care After This sheet [...] and water are not available, use hand particleboard factory worker. ? Change your dressing as told by [...] contrast dye from your body. ??? Take hzpj-fgm-ouqljol and prescription medicines only as told by [...] 06/12/2014 Document Revised: 03/02/2017 Document Reviewed: 03/02/2017 ElseSemafone Interactive Patient Education ? 2019 Elsevier Inc. [...] you are awake and alert. ??? Take oksz-dje-bpgomld and prescription medicines only as told by [...] 11/16/2013 Document Revised: 06/30/2016 Document Reviewed: 05/17/2016 Me[employer] Interactive Patient Education ? 2019 [employer]. documented in this encounter Plan of Treatment Not on file documented as of this encounter Visit Diagnoses Not on filedocumented in this encounter Care Teams Relay Checker Relationship Specialty Start Date End Date Luistobias Linh L, DO [address] [facility] [address] [place] [address] PCP - General Family Medicine 11/04/22 Lizzie Alves PA-C [address] [facility], [facility] [address] [place] [address] Hospitalist Cardiology 05/27/23 Kaushik Mariscal MD [address] [facility] [address] [place] [address] Professor Of Religion Electrophysiology 11/18/23 documented as of this encounter
--- OUTSIDE RECORDS SUMMARY | 2025-01-03 14:39 | XMS_ITS | Encounter Summary ---
Author Organization [employer] ([place], [place], [place], [place], [place]) Address [address] [place] [address] Care Team Providers Care Solvent Process Extractor Operator Name Role Phone Lalitha Linh Delilah DAVIS Primary Care Provider [phone] Lizzie Alves PA-C Unavailable [phone] Kaushik Mariscal MD Unavailable Encounter Details Date Type Department Care Team (Late st Contact Info) Description 11/23/2018 Transcribed Document [facility] [place] [facility] [place] [address] ProviderChad MD [address] [place] [address] Social History Tobacco Use Types Packs/Day [...] Source : Stated Height Entry Format : [place] Height, Feet : 0 ft(Converted to: 0 cm, 0 Inch) Height, Inches : 70 Inch(Converted to: 5 ft 10 Inch, 177.80 cm) Clinical Height : 177.8 cm Weight Source : Standing scale Weight Entry Format : [place] Clinical Dosing Weight : 77.27 kg Weight, Pounds : 170 lb Body Surface Area (BSA) : 1.95 m2 Body Mass Index : 24.4 kg/m2 (HI) Burson Body Weight : 68 kg ELAINE CHOI [...] : No Emergency Contact #1 : Alexx- [phone]- cell number Emergency Contact #1 Phone Number : rachelienenoc. Emergency Contact #1 Relationship : - Emergency Contact #2 : - Emergency Contact #2 Phone Number : - Emergency Contact #2 Relationship : - Primary Language : [place] Communication Barrier : None ELAINE CHOI RN [...] Walks frequently [place] Mobility : No limitation [place] Nutrition : Adequate [place] Friction and Shear [...] Scale Risk Level : 0-24 Low Risk [place] Fall Interventions : Wheels locked ELAINE CHOI [...] on filedocumented in this encounter Care Teams Solvent Process Extractor Operator Relationship Specialty Start Date End Date Linh Doty, [address] [place] [address] PCP - General Family Medicine 11/04/22 Lizzie Alves PA-C [address], [facility] [address] [place] [address] Hospitalist Cardiology 05/27/23 [place] [address] [place] [address] [place] [address] Chemical Lab Technician Electrophysiology 11/18/23 documented as of this encounter
--- OUTSIDE RECORDS SUMMARY | 2025-01-03 14:39 | XMS_ITS | Encounter Summary ---
Author Organization [employer] ([place], [place], [place], [place], [place]) Address [address] [place] [address] Care Team Providers Care Rn Midwife Name Role Phone Lalitha Linh Delilah DAVIS Primary Care Provider [phone] Lizzie Alves PA-C Unavailable [phone] Kaushik Mariscal MD Unavailable Encounter Details Date Type Department Care Team (Late st Contact Info) Description 11/23/[address] [facility] [place] [facility] [place] [address] ProviderChad MD [address] [place] [address] Social History Tobacco Use Types Packs/Day [...] 13:33 EDT Electronically signed by Rekha [facility] Conversion Paste Up Copy Camera Operator Cerner at 05/27/2022 9:20 PM CDT documented in this encounter Plan of Treatment Not on file documented as of this encounter Visit Diagnoses Not on filedocumented in this encounter Care Teams Rn Midwife Relationship Specialty Start Date End Date Linh Doty, DO 8 [facility] [address] [place] [address] PCP - General Family Medicine 11/04/22 Lizzie Alves PA-C [address] [place] [address], [facility] [address] [place] [address] Hospitalist Cardiology 05/27/23 Kaushik Mariscal MD [address] [facility] [address] [place] [address] Whipped Topping Mixer Electrophysiology 11/18/23 documented as of this encounter
--- OUTSIDE RECORDS SUMMARY | 2025-01-03 14:39 | XMS_ITS | Encounter Summary ---
Author Organization [employer] ([place], [place], [place], [place], [place]) Address [address] [place] [address] Care Team Providers Care Fish Liver Sorter Name Role Phone Linh William DO Primary Care Provider Lizzie Alves PA-C Unavailable [phone] Kaushik Mariscal MD Unavailable Encounter Details Date Type Department Care Team (Late st Contact Info) Description 11/23/[address] [facility] [place] [facility] [place] [address] ProviderChad MD [address] [place] [address] Social History Tobacco Use Types Packs/Day [...] Merchant MD - 11/23/2018 1:18 PM CDT [facility] [place] [address] GAGAN MENDOZA :1965 Visit Time:11/23/2018 Your Visit Summary Your Care Team Admitting Physician - PUNEET BROOKS MD-CAR Attending Physician - PUNEET BROOKS MD-CAR Primary Care Physician - LINH WILLIAM MD-[facility] Referring Physician - PUNEET BROOKS MD-CAR Your Diagnosis Atherosclerosis of [place] arteries of extremities with intermittent claudication, right leg, Atherosclerosis of [place] arteries of extremities with intermittent claudication, right leg Discharge Vitals Temperature 36.2 ??C Heart Rate (Monitored) 82 Respiratory Rate 31 Blood Pressure 118/66 What to do next Instructions From Your Care Team 1. No driving for 24 hrs post procedure. 2. If site bleeds- call 911. hold pressure at the site. 3. Stroke- signs and symptoms - call 911. 4. Start plavix tomorrow. [facility] chantix- at pharmacy. Follow-Up Appointments Follow Up with [facility] When Within 2 to 4 weeks Medications What How Much When Instructions Next Dose clopidogrel (Plavix 75 mg oral tablet) 1 Tablet(s) Oral Every Day Refills: 6 Pickup at [place], [place] varenicline (Chantix 1 mg oral tablet) 1 Tablet(s) Oral Two Times A Day after meals Pickup at [place], [place] varenicline (Chantix Starter Pack 0.5 mg-1 mg oral tablet) 1 Tablet(s) Oral Two Times A Day as directed on package labeling Pickup at [place], [place] acetaminophen (Tylenol) Oral As needed for [...] Oral Two Times A Day Pharmacy Information [facility] [place] Najera: [address] BRADEN Najera [phone] Take your medications faithfully. Do NOT skip [...] Document Reviewed: 02/28/2011 ExitCare?? Patient Information ??2014 [employer]. Cerebral Angiogram, Care After This sheet gives [...] and water are not available, use hand lang interpreter. ? Change your dressing as told by [...] contrast dye from your body. ??? Take jfjy-ppl-cohmaax and prescription medicines only as told by [...] 06/12/2014 Document Revised: 03/02/2017 Document Reviewed: 03/02/2017 ElseCelect Interactive Patient Education ?? 2019 HipSnip Inc. Moderate Conscious Sedation, Adult, Care After [...] you are awake and alert. ??? Take cqjw-hhm-shtrhgi and prescription medicines only as told by [...] 05/17/2016 Elsevier Interactive Patient Education ?? 2019 HipSnip Inc. Emergency Awareness and Preventative Care STROKE [...] Assistance with quitting is available by contacting 2-445-QLILNOW. This is a free resource providing counseling, support, and referral. Or you may contact your personal physician. [place] Suicide Prevention Lifeline: The National Suicide Prevention [...] was given the opportunity to ask questions. Patient/Family Support Coordinator Name: Patient/Family Support Coordinator Signature: Relationship to Patient: Clinician/Hospital Family Support Coordinator Signature: Date: documented in this encounter Plan of Treatment Not on file documented as of this encounter Visit Diagnoses Not on filedocumented in this encounter Care Teams Fish Liver Sorter Relationship Specialty Start Date End Date Linh William, DO 8 [facility] [address] [place] [address] PCP - General Family Medicine 11/04/22 Lizzie Alves PA-C [address] [place] [address] [address] [place] [address] Hospitalist Cardiology 05/27/23 [place] [address] [place] [address] [address] [place] [address] Commissary Officer Electrophysiology 11/18/23 documented as of this encounter
--- OUTSIDE RECORDS SUMMARY | 2025-01-03 14:39 | XMS_ITS | Encounter Summary ---
Author Organization [facility] Address [address] [place] [address] Care Team Providers Care Venetian Blind Cleaner And Repairer Name Role Phone Felicitas Melara APRN Primary Care Provider [phone] Reason for Referral * Consultation (Routine) - Closed Specialty Diagnoses / Procedures Referred By Contrené t Referred To Contact Nephrology Diagnoses Kidney disease Kay Rao MD [address] [place] [address] [place] [address] Phone: tel: fax: [facility] Nephrology, Bone & Mineral Metabolism [address] [facility], [address] [place] [address] Phone: tel: fax: Referral ID Status Reason Start Date Expiration Date V isits Requested Visits Authorized [id number] Closed Specialty Services Required 10/18/2024 04/19/2026 1 1 Encounter Details Date Type Department Care Team (Late st Contact Info) Description 10/18/2024 Community Orders Community Practice [address] [place] [address] Kay Rao MD [address] [place] [address] [place] [address] Chronic kidney disease (CKD) stage G3a/A1, [...] Recorded Patient Health Questionnaire-2 Score 0 05/30/2024 [facility] [place] of Occupat ional Health - Occupational Stress [...] Description 06/23/2025 10:40 AM EDT Office Visit [facility] [address] [place] [address] Prabhu Brown MD [address] [place] [id number] Scheduled Referrals Name Type Priority Associated Diagnoses [...] documented as of this encounter Care Teams Venetian Blind Cleaner And Repairer Relationship Specialty Start Date End Date Felicitas Melara APRN [address] [place] [address] PCP - General 01/29/24 documented as of this encounter
--- OUTSIDE RECORDS SUMMARY | 2025-01-03 14:39 | XMS_ITS | Encounter Summary ---
Author Organization [employer] ([place], [place], [place], [place], [place]) Address [address] [place] [address] Care Team Providers Care Android Ios Developer Name Role Phone Lalitha Linh Delilah DAVIS Primary Care Provider [phone] Lizzie Alves PA-C Unavailable [phone] Kaushik Mariscal MD Unavailable Encounter Details Date Type Department Care Team (Late st Contact Info) Description 11/23/2018 Transcribed Document [facility] [place] [address] [place] [address] ProviderChad MD [address] [place] [address] Social History Tobacco Use Types Packs/Day [...] 11/23/2018 8:12 EDT Electronically signed by Rekha [facility] Conversion Platinumsmith Cerner at 05/27/2022 9:25 PM CDT documented in this encounter Plan of Treatment Not on file documented as of this encounter Visit Diagnoses Not on filedocumented in this encounter Care Teams Android Ios Developer Relationship Specialty Start Date End Date Linh Doty, DO 8 [facility] [address] [place] [address] PCP - General Family Medicine 11/04/22 Lizzie Alves PA-C [address] [place] [address], [facility] [address] [place] [address] Hospitalist Cardiology 05/27/23 Kaushik Mariscal MD [address] [facility] [address] [place] [address] Organic Chemistry Professor Electrophysiology 11/18/23 documented as of this encounter
--- OUTSIDE RECORDS SUMMARY | 2025-01-03 14:39 | XMS_ITS | Clinical Summary ---
Author Organization [facility] Address [address] [place] [address] Phone Care Team Providers Care Aircraft Engine Mechanic Overhaul Name Role Phone Fracisco DALTON, Gilson Begum Unavailable [ ] Conditions or Problems Problem Name Problem Code Onset Date Status Entry Date Provider Comment Standard Description Annotate Dermatitis due to drug AND/OR medicine taken internally 69925497 (SNOMED CT) 08/21 Active 08/21 Gilson Yap [...] subsequent encounter Cellulitis/wo und infection, chest wall 80605431 (SNOMED CT) 07/26 Active 07/26 Sherri Herndon Cellulitis of chest wall Ischemic Cardiomyopath y 297416642 (SNOMED CT) 07/26 Active 07/26 Sherri Herndon Generalized ischemic myocardial dysfunction Nicotine dependence, cigarettes 22317940 (SNOMED CT) 07/26 Active 07/26 Sherri Herndon Cigarette smoker COPD 30263167 (SNOMED CT) 07/26 Active 07/26 Sherri Herndon Chronic obstructive pulmonary disease Acute respiratory failure with hypoxia 39418476 (SNOMED CT) 07/26 Active 07/26 Sherri Herndon Acute respiratory failure Hypoalbuminem ia 800330393 (SNOMED CT) 07/26 Active 07/26 Sherri Herndon Hypoalbuminemia Hypocalcemia 0459629 ([facility] CT) 07/26 Active 07/26 Sherri Herndon Hypocalcemia Thrombocytope delia, secondary D69.59 (ICD-10-CM ) 07/26 Active 07/26 Sherri Herndon Other secondary thrombocytopenia Hyponatremia 97516268 ([facility] CT) 07/26 Active 07/26 Sherri Herndon Hyponatremia Medications Medication Instructions Start Date Stop Date Generic Name NDC Provider HYDROCODONE-ROSE TAMINOPHEN 5-325 MG TABS 1 Tab, as needed, Oral, every 8 hours hydrocodone-aceta minophen 95902364322 Faina Lamas CARVEDILOL 12.5 MG TABS 1 Tab, Oral, twice a day carvedilol 99546921701 Faina Lamas CEFDINIR 300 MG CAPS 1 Cap, Oral, every 12 hours cefdinir 99285471390 Faina Lamas DOXYCYCLINE HYCLATE 100 MG CAPS 1 Cap, Oral, twice a day doxycycline hyclate 74701873202 Faina Lamas FLORASTOR 250 MG CAPS 1 Cap, Oral, twice a day saccharomyces boulardii 39049177535 Faina Lamas FLUTICASONE PROPIONATE 50 MCG/ACT SUSP 2 [place], as needed, Nasal, Daily fluticasone propionate 94081840285 Faina Lamas FOLIC ACID 1 MG TABS 1 Tab, Oral, Daily folic acid 88897617473 Faina Lamas FUROSEMIDE 20 MG TABS 1 Tab, Oral, Daily furosemide 10513749094 Faina Lamas GABAPENTIN 600 MG TABS 1 Tab, Oral, three times a day gabapentin 62901383565 Faina Lamas LISINOPRIL 20 MG TABS 1 Tab, Oral, At Bedtime lisinopril 84939282660 Faina Lamas NICOTINE STEP 1 21 MG/24HR PT24 1 Patch, TransDermal, Daily nicotine 96078622035 Faina Vossuelalessia Lamas PANTOPRAZOLE SODIUM 40 MG TBEC 1 Tab, Oral, Daily pantoprazole 89446143917 Faina Du Lamas POTASSIUM CHLORIDE ER 20 MEQ CR-TABS 1 Tab, Oral, Daily potassium chloride 19603510037 Fainacandice Vossuelalessia Lamas TOPIRAMATE 25 MG TABS 1 Tab, Oral, At Bedtime topiramate 23013165653 Faina CantuHammad Lamas VITAMIN D (ERGOCALCIFEROL ) 1.25 MG (93750 UT) CAPS 1 Cap, Oral, Weekly ergocalciferol (vitamin d2) 91301225858 Fainacandice Lamas Medications Administered No information available. [...] Name Date Entry Date CPT-sl STAT Labs CPT-02664 CMP [id number] CBC with Differential 2021 CPT-48600 C- reactive protein CPT-Cooral Continue oral antibiotics [...]
--- OUTSIDE RECORDS SUMMARY | 2025-01-03 14:40 | XMS_ITS | Referral Summary ---
Author Organization [employer] ([place], [place], [place], [place], [place]) Address [address] [place] [address] Care Team Providers Care Storage Receipt Poster Name Role Phone LuisLinh collado Delilah DAVIS Primary Care Provider Lizzie Alves PA-C Unavailable [phone] Kaushik Mariscal MD Unavailable Encounters Date Type Department Care Team Description 12/19/2024 3:00 AM EST Clinical Support [facility] Electrophysiology [address] [place] [phone] Kaushik Mariscal MD Encounter for adjustment or management of cardiac device (Primary Dx); Ischemic cardiomyopathy with implantable cardioverter-defibrill ator (ICD); Chronic combined systolic and diastolic congestive heart failure (HCC) 11/17/2024 3:00 AM EDT Clinical Support [facility] Electrophysiology [address] [place] [address] Kaushik Mariscal MD Encounter for adjustment or management of cardiac device (Primary Dx); Ischemic cardiomyopathy with implantable cardioverter-defibrill ator (ICD); Chronic combined systolic and diastolic congestive heart failure (HCC) 10/17/2024 3:00 AM EDT Clinical Support [facility] Electrophysiology [address] [place] [phone] Kaushik Mariscal MD Encounter for adjustment or management of cardiac device (Primary Dx); Ischemic cardiomyopathy with implantable cardioverter-defibrill ator (ICD); Chronic combined systolic and diastolic congestive heart failure (HCC) 10/11/2024 3:00 AM EDT Clinical Support [facility] Electrophysiology [address] [place] [address] Kaushik Mariscal MD Encounter for adjustment [...] 75 mg tabletIndications :Atherosclerotic heart disease of [place] coronary artery without angina pectoris TAKE ONE [...] on file Medical Devices Implanted Type Area Flame Burner Device Identifier Shelf Expiration Date Model / Serial / Lot Icd-08/26/2021 Implanted:08/26 by Kaushik Mariscal MD (Quantity not on file) ICD [employer] 500Q / [id number] / Insurance [facility] AD[facility] Care Teams Storage Receipt Poster Relationship Specialty Start Date End Date Linh Doty, [address] [facility] [address] [place] [address] PCP - General Family Medicine 11/04/22 Lizzie Alves PA-C [address] [facility] [address] [place] [address] Hospitalist Cardiology 05/27/23 Kaushik Mariscal MD [address] [facility] [address] [place] [address] Medical Grade [employer] Electrophysiology 11/18/23
--- OUTSIDE RECORDS SUMMARY | 2025-01-03 14:40 | XMS_ITS | Encounter Summary ---
Author Organization Healthcare Address [address] [place] [address] Care Team Providers Care District Court Reporter Name Role Phone Felicitas Melara APRN Primary Care Provider [phone] Encounter Details Date Type Department Care Team (Late st Contact Info) Description 11/16/2024 Orders Only [facility] [address] [place] [phone] Myrna Zamorano Stage 3 chronic kidney disease, [...] Recorded Patient Health Questionnaire-2 Score 0 05/30/2024 [facility] Occupat ional [facility] - Occupational Stress Questionnaire Answer Date [...] the past 12 months has th e [employer], gas, oil, or water company threatened to [...] 10:40 AM EDT Office Visit [facility] [address] [place] [address] Prabhu Brown MD [address] [place] [phone] Scheduled Orders Name Type Priority Associated Diagnoses Orde r Schedule Renal Function Panel, Plasma Lab Routine Stage 3 chronic kidney disease, unspecified whether stage 3a or 3b CKD ([facility]) Expected: 11/16/2024 (Approximate), Expires: 05/17/2026 CBC and Differential Lab Routine Stage 3 chronic kidney disease, unspecified whether stage 3a or 3b CKD ([facility]/HCC) Expected: 11/16/2024 (Approximate), Expires: 05/17/2026 Creatinine, Random, Urine Lab Routine Stage 3 chronic kidney disease, unspecified whether stage 3a or 3b CKD ([facility]/HCC) Expected: 11/16/2024 (Approximate), Expires: 05/17/2026 Protein, Random, Urine with Creatinine Lab Routine Stage 3 chronic kidney disease, unspecified whether stage 3a or 3b CKD ([facility]/HCC) Expected: 11/16/2024 (Approximate), Expires: 05/17/2026 Urinalysis with reflex microscopic (Culture NOT Included) Lab Routine Stage 3 chronic kidney disease, unspecified whether stage 3a or 3b CKD ([facility]) Expected: 11/16/2024 (Approximate), Expires: 05/17/2026 PTH Intact Total Lab Routine Stage 3 chronic kidney disease, unspecified whether stage 3a or 3b CKD ([facility]) Vitamin D insufficiency Expected: 11/16/2024 (Approximate), Expires: 05/17/2026 Vitamin D 25 Hydroxy Lab Routine Stage 3 chronic kidney disease, unspecified whether stage 3a or 3b CKD ([facility]/HCC) Vitamin D insufficiency Expected: 11/16/2024 (Approximate), Expires: 05/17/2026 documented as of this encounter Visit Diagnoses Diagnosis Stage 3 chronic kidney disease, unspecified whether stage 3a or 3b CKD ([facility])- Primary Vitamin D insufficiency documented in this encounter Additional Health Concerns Assessment Noted Time A fall risk assessment has been complete d for the patient 06/02/2024 1:58 PM EDT A Body Mass Index follow-up plan has been documented for the patient 06/02/2024 2:45 PM EDT documented as of this encounter Care Teams District Court Reporter Relationship Specialty Start Date End Date Felicitas Melara APRN [address] [place] [address] PCP - General 01/29/24 documented as of this encounter
--- OUTSIDE RECORDS SUMMARY | 2025-01-03 14:40 | XMS_ITS | Clinical Summary ---
Author Organization [employer] ([place], [place], [place], [place], [place]) Address [address] [place] [address] Care Team Providers Care Editor In Chief Newspaper Name Role Phone Linh Doty DO Primary Care Provider [phone] Lizzie Alves PA-C Unavailable [phone] Kaushik Mariscal MD Unavailable Allergies No [...] 75 mg tabletIndications :Atherosclerotic heart disease of [place] coronary artery without angina pectoris TAKE ONE [...] Description 12/19/2024 3:00 AM EST Clinical Support [facility] Electrophysiology [address] [place] [phone] Kaushik Mariscal MD Encounter for adjustment or management of cardiac device (Primary Dx); Ischemic cardiomyopathy with implantable cardioverter-defibrill ator (ICD); Chronic combined systolic and diastolic congestive heart failure (HCC) 11/17/2024 3:00 AM EDT Clinical Support [facility] Electrophysiology [address] [place] [phone] Kaushik Mariscal MD Encounter for adjustment or management of cardiac device (Primary Dx); Ischemic cardiomyopathy with implantable cardioverter-defibrill ator (ICD); Chronic combined systolic and diastolic congestive heart failure (HCC) 10/17/2024 3:00 AM EDT Clinical Support [facility] Electrophysiology [address] [place] [phone] Kaushik Mariscal MD Encounter for adjustment or management of cardiac device (Primary Dx); Ischemic cardiomyopathy with implantable cardioverter-defibrill ator (ICD); Chronic combined systolic and diastolic congestive heart failure (HCC) 10/11/2024 3:00 AM EDT Clinical Support [facility] Electrophysiology [address] [place] [phone] Kaushik Mariscal MD Encounter for adjustment [...] Tdap) 01/29/2031 Medical Devices Implanted Type Area Freezing Room Worker Device Identifier Shelf Expiration Date Model / Serial / Lot Icd-08/26/2021 Implanted:08/26 by Kaushik Mariscal MD (Quantity not on file) ICD [employer]ANT 500Q / [id number] / Insurance [facility] ADV Care Teams Editor In Chief Newspaper Relationship Specialty Start Date End Date Linh Doty, [address] [facility] [address] [place] [address] PCP - General Family Medicine 11/04/22 Lizzie Alves PA-C [address] [facility] [address] [place] [address] Hospitalist Cardiology 05/27/23 Kaushik Mariscal MD [address] [facility] [address] [place] [address] [employer] Electrophysiology 11/18/23
--- OUTSIDE RECORDS SUMMARY | 2025-01-03 14:40 | XMS_ITS | Encounter Summary ---
Author Organization [employer] ([place], [place], [place], [place], [place]) Address [address] [place] [address] Care Team Providers Care Athlete Manager Name Role Phone Lalitha Linh Delilah DAVIS Primary Care Provider [phone] Lizzie Alves PA-C Unavailable [phone] Kaushik Mariscal MD Unavailable Encounter Details Date Type Department Care Team (Late st Contact Info) Description 11/23/2018 Transcribed Document [facility] Family Medicine [address] [place] [address] ProviderChad MD [address] [place] [address] Social History Tobacco Use Types Packs/Day [...] On: 11/23/2018 13:18 EDT by ELAINE CHOI brand marketing intern Documentation Patient Disposition, General : Discharge Discharge To : Other: dc per wheelchair. IV Discontinued : Yes Personal Belongings With Patient : Yes ELAINE CHOI RN - 11/23/2018 13:18 EDT Electronically signed by Rekha [facility] Conversion Pattern Worker Cerner at 05/27/2022 9:11 PM CDT documented in this encounter Plan of Treatment Not on file documented as of this encounter Visit Diagnoses Not on filedocumented in this encounter Care Teams Athlete Manager Relationship Specialty Start Date End Date Linh Doty, [address] [facility] [address] [place] [address] PCP - General Family Medicine 11/04/22 Lizzie Alves PA-C [address] [place] [address], [facility] [address] [place] [address] Hospitalist Cardiology 05/27/23 Kaushik Mariscal MD [address] [facility] [address] [place] [address] Seismology Technical Officer Electrophysiology 11/18/23 documented as of this encounter
--- OUTSIDE RECORDS SUMMARY | 2025-01-03 14:40 | XMS_ITS | Encounter Summary ---
Author Organization [facility] Address [address] [place] [address] Care Team Providers Care High Man Name Role Phone MelaraFelicitas Delilah DENISE Primary Care Provider [phone] Encounter Details Date Type Department Care Team [...] Recorded Patient Health Questionnaire-2 Score 0 05/30/2024 [facility] of Occupat ional Health - Occupational [...] AM EDT Office Visit [facility] [address] [place] [address] Prabhu Brown MD [address] [place] [phone] documented as of this encounter Visit Diagnoses Not on filedocumented in this encounter Additional Health Concerns Assessment Noted Time A fall risk assessment has been complete d for the patient 12/14/2024 12:58 PM EST A Body Mass Index follow-up plan has been documented for the patient 12/14/2024 2:06 PM EST documented as of this encounter Care Teams High Man Relationship Specialty Start Date End Date Felicitas Melara APRN [address] [place] [address] PCP - General 01/29/24 documented as of this encounter
--- OUTSIDE RECORDS SUMMARY | 2025-01-03 14:40 | XMS_ITS | Clinical Summary ---
Author Organization [facility] Address [address] [place] [address] Care Team Providers Care Oncology Navigator Name Role Phone Annette Melaranicaryl Mazariegos APRN Primary Care Provider [phone] Allergies No known active allergies Medications albuterol [...] ml/min 12/14/2024 Coronary artery disease invo lving [place] coronary artery of [place] heart 12/14/2024 Hyperlipidemia 12/14/2024 Hyponatremia 12/14/2024 Hyperparathyroidism [...] Description 12/14/2024 1:00 PM EST Office Visit [facility] Nephrology, Bone & Mineral Metabolism [address] [facility] [place] [address] Prabhu Brown MD CKD stage 3a, GFR 45-59 ml/min ([facility]) (Primary Dx); Peripheral vascular disease ([facility]); Coronary artery disease involving [place] coronary artery of [place] heart, unspecified whether angina present; Hyperlipidemia, unspecified hyperlipidemia type; Hyponatremia 12/14/2024 Travel 11/16/2024 Orders Only [address] [place] [address] JaunMyrna Stage 3 chronic kidney disease, unspecified whether stage 3a or 3b CKD ([facility]) (Primary Dx); Vitamin D insufficiency 10/28/2024 Telephone [facility] Nephrology, Bone & Mineral Metabolism [address] [facility] [place] [address] HCN - Patient Message 10/18/2024 [facility] Orders [facility] [address] [place] [address] Kay Rao MD Chronic kidney disease (CKD) stage G3a/A1, moderately decreased glomerular filtration rate (GFR) between 45-59 mL/min/1.73 square meter and albuminuria creatinine ratio less than 30 mg/g ([facility]) (Primary Dx); Kidney disease from Last 3 [...] Recorded Patient Health Questionnaire-2 Score 0 05/30/2024 [facility] Occupat ional Health - [...] In the past 12 months has e [employer], gas, oil, or water company threatened to [...] Description 06/23/2025 10:40 AM EDT Office Visit [address] [place] [address] Prabhu Brown MD [address] [place] [address] Health Maintenance Due Date Last [...] - Risk 60-74 years 1-dose series) 2024 [id number] Vaccine (3 - season) 2024 12/22/2020, 04/28/2020 [...] Health Maintenance Insurance [employer] Care Teams Oncology Navigator Relationship Specialty Start Date End Date Felicitas Melara APRN [address] [facility] [place] [address] PCP - General 01/29/24
[2025-01-03 16:42] LABS: Albumin Level 4.3 g/dl (3.5-5.0); Chloride 92 mmol/L (98-107); Potassium 4.8 mmoL/L (3.5-5.1); Sodium 133 mmol/L (136-145)
[2025-01-03 16:45] LABS: Anion Gap 17.8 mEq/L (5-15); Blood Urea Nitrogen 12 mg/dl (7-17); Calcium 10.6 mg/dl (8.4-10.2); Carbon Dioxide 28 mmol/L (22.0-30.0); Creatinine,Serum 1.00 mg/dl (0.52-1.04); Estimated Glomerular Filt Rate 57 ml/min (>60); GFR (African American) 68 ML/MIN (>60); Glucose 74 mg/dl (74-100); Phosphorous 3.2 mg/dl (2.5-4.5)
[2025-01-03 17:00] LABS: 25-OH Vitamin D, Total 66.4 ng/mL (30-100)
[2025-01-04 17:11] LABS: Calcium, Ionized 5.6 mg/dL (4.5-5.6)
[2025-01-13 15:02] LABS: Serial Monitoring PDF SCANNED IMAGE
== END 2025-01-03 23:59 | disposition home or self-care (01) ==
LOC: RT 14:29
PROVIDERS: PCP Nurse Practitioner Family; Visit Provider Student in an Organized Health Care Education/Training Program
DX: I07.1 Rheumatic tricuspid insufficiency (principal); I11.0 Hypertensive heart disease with heart failure; I50.20 Unspecified systolic (congestive) heart failure; I25.10 Atherosclerotic heart disease of native coronary artery without angina pectoris; M81.0 Age-related osteoporosis without current pathological fracture; Z95.1 Presence of aortocoronary bypass graft; Z95.810 Presence of automatic (implantable) cardiac defibrillator
CPT/HCPCS: 36415; 80069; 82306; 82330; 82523; 83970; 84080; 93306